=== PATIENT | female | born 1955 | race Caucasian/White ===

== ENCOUNTER 2024-06-24 13:47 | Inpatient (IN) | payer MEDICARE, MEDICAID, SELFPAY ==
[2024-06-24 15:00] VITALS: PULSE 92; RESP 18; O2SAT 97
--- NOTE | 2024-06-24 15:31 | PC.SS ---
Resident admitted for subacute care on vent with trach in place and GT for medication and nutrition. Resident is non verbal unable to make needs known, her sister Suzie is her decision maker. Resident is not a registered voter, she is not conserved, does have a financial POA. RP informed of advance Directive service offered in facility by [facility], resident is unable to participate as she appears to be confused. Resident is DNR, selective treatment. RP states she has a history of depression and anxiety. Resident will be monitored for changes in mood and behavior. This [facility] to make daily contact with resident and offer support as she adjust to new environment.
--- NOTE | 2024-06-24 16:00 | PC.IP ---
At 1555 spoke with Suzie Ennis, resident's RP. Refuses vaccines presently as resident has never 'liked shots' and she has 'never gotten them.' Will continue to evaluate resident's cognition and work with RP for education opportunities and possible admininstration of Pneumococcal vaccine.
--- NOTE | 2024-06-24 17:02 | XR_ITS ---
Examination: AP chest single view TECHNIQUE: AP portable sitting chest single view Examination time: June 24, 2024 at 1759 hours INDICATIONS: Post tracheostomy tube placement FINDINGS: Tracheostomy tube tip 4.9 cm above Imelda Reduced inspiratory effort. Mild vascular congestion IMPRESSION: Tracheostomy tube tip 4.9 cm above Imelda
[2024-06-24 18:08] VITALS: PULSE 89; RESP 30; O2SAT 99
[2024-06-24 19:13] LABS: Basophils # (Auto) 0.1 Thou/mm3 (0.0-0.2); Basophils % (Auto) 1 % (0-2.5); Eosinophils # (Auto) 0.2 Thou/mm3 (0.0-0.5); Eosinophils % (Auto) 1 % (0-10); Hematocrit 33.2 % (36.0-46.0); Hemoglobin 10.8 g/dL (12.0-16.0); Immature Granulocytes % (Auto) 1 % (0-0); Immature Granulocytes Auto 0.21 Thou/mm3 (0.00-0.00); Lymphocytes # (Auto) 2.3 Thou/mm3 (1.0-4.8); Lymphocytes % (Auto) 12 % (10-50); Mean Corpuscular HGB Conc 32.5 g/dl (31.0-37.0); Mean Corpuscular Hemoglobin 28.9 pg (25.0-35.0); Mean Corpuscular Volume 89 fL (80-100); Monocytes # (Auto) 1.8 Thou/mm3 (0.0-0.8); Monocytes % (Auto) 10 % (0-12); Neutrophils # (Auto) 14.8 Thou/mm3 (1.8-7.7); Neutrophils % (Auto) 76 % (37-80); Nucleated Red Blood Cell % 0 /100 WBC (0); Platelet Count 327 Thou/mm3 (140-440); RDW Standard Deviation 52.4 fL (36.4-46.3); Red Blood Count 3.74 Miln/mm3 (4.00-5.20); White Blood Count 19.4 Thou/mm3 (3.6-11.0)
[2024-06-24 19:14] LABS: Alanine Aminotransferase 11 U/L (10-49); Albumin, Serum 4.2 gm/dL (3.4-4.8); Albumin/Globulin Ratio 1.3 (1.2-2.2); Alkaline Phosphatase 62 U/L (46-116); Anion Gap 9 (7-16); Aspartate Amino Transferase 21 U/L (0-34); BUN/Creatinine Ratio 30 Ratio (12-20); Bilirubin,Total 0.3 mg/dL (0.3-1.2); Blood Urea Nitrogen 24 mg/dL (9-23); Calcium 9.3 mg/dL (8.3-10.6); Calcium (Corrected) 9.3 mg/dL (8.5-10.1); Carbon Dioxide 26.9 mMol/L (20.0-31.0); Chloride 95 mMol/L (98-107); Creatinine (Component) 0.8 mg/dL (0.6-1.3); Globulin 3.2 gm/dL (2.3-3.5); Glucose 129 mg/dL (74-106); Osmolality,Calculated 268 (275-295); Sodium 131 mMol/L (136-145); Total Protein 7.4 gm/dL (5.7-8.2); eGFR > 60 See Note
--- NOTE | 2024-06-24 21:24 | PC.NURSE ---
Resident on mechanical ventilator. Not in any form of distress. V/S 108/50, 90, 97.6. Awake and responsive. Denies any pain or discomfort. WBC noted to be 19.4 and sodium level 131. Called Dr flanagan covering for Dr Silverio with order received to repeat CBC tomorrow.
--- NOTE | 2024-06-24 21:53 | PC.NURSE ---
Resident noted with blood on the absorbent pad when staffs changed the resident after she urinates. As per other staffs, when resident admitted this afternoon , resident was noted with blood on her urine . Denies any bladder discomfort. Called Dr Wise and made aware with order received to do U/A with c & s so with the CBC tomorrow.
[2024-06-24 22:00] VITALS: BP 94/58; PULSE 82; RESP 35; TEMP 36.6
[2024-06-24] MEDS: levETIRAcetam 100 MG/ML SOLUTION 1000 MG GT (23:19)
[2024-06-25] VITALS (8 sets, daily range): BP systolic 97–146; BP diastolic 58–76; PULSE 81–98; RESP 31–44; TEMP 36.4–38.4; O2SAT 95–99; BMI 32.5
[2024-06-25 03:07] LABS: Base Excess 3 (-3-3); HCO3 29 mEq/L (20-26); Inspired Oxygen, FIO2 30 %; O2 Saturation 99 % (91-98); PCO2 49 mmHg (32.0-48.0); PO2 106 mmHg (83-108); pH, Arterial 7.38 (7.35-7.45)
[2024-06-25 03:08] LABS: Allen Test Performed/OK; Puncture Site Right Radial
[2024-06-25 06:04] LABS: Collection Type, Urine Catheter
[2024-06-25] MEDS: VALPROIC ACID 250 MG/5 ML 500 MG GT ×2 (06:14→14:30)
[2024-06-25 06:16] LABS: Bacteria,Urine 3+; Bilirubin,Urine Negative (Negative); Blood,Urine 3+ (Negative); Clarity,Urine Turbid (Clear/Hazy); Color,Urine Colorless (Lt Yel-Yel); Glucose, Urine Negative (Negative); Ketones,Urine Negative (Negative); Leukocyte Esterase,Urine Positive (Negative); Nitrite,Urine Negative (Negative); PH,Urine 6.5 (5.0-7.0); Protein,Urine 1+ (Neg - Trace); RBC,Urine 125 /hpf (0-3); Specific Gravity,Urine 1.008 (1.001-1.035); Squamous Epithelial Cell,Urine 1 /hpf (0-5); Urobilinogen,Urine Negative mg/dL (0.0-1.0); WBC,Urine 197 /hpf (0-5)
[2024-06-25 06:46] LABS: Culture Indicated,Urine Yes
[2024-06-25 07:32] LABS: Basophils # (Auto) 0.1 Thou/mm3 (0.0-0.2); Basophils % (Auto) 0 % (0-2.5); Eosinophils # (Auto) 0.2 Thou/mm3 (0.0-0.5); Eosinophils % (Auto) 1 % (0-10); Hematocrit 32.7 % (36.0-46.0); Hemoglobin 10.8 g/dL (12.0-16.0); Immature Granulocytes % (Auto) 1 % (0-0); Lymphocytes # (Auto) 2.5 Thou/mm3 (1.0-4.8); Lymphocytes % (Auto) 12 % (10-50); Mean Corpuscular Volume 88 fL (80-100); Monocytes # (Auto) 2.8 Thou/mm3 (0.0-0.8); Monocytes % (Auto) 14 % (0-12); Neutrophils # (Auto) 14.8 Thou/mm3 (1.8-7.7); Neutrophils % (Auto) 72 % (37-80); Nucleated Red Blood Cell % 0 /100 WBC (0); Platelet Count 287 Thou/mm3 (140-440); RDW Standard Deviation 52.2 fL (36.4-46.3); Red Blood Count 3.73 Miln/mm3 (4.00-5.20); White Blood Count 20.6 Thou/mm3 (3.6-11.0)
[2024-06-25] MEDS: ASPIRIN 81 MG TAB.CHEW GT (08:45)
[2024-06-25] MEDS: FLUCONAZOLE 200 MG TABLET 400 MG GT (08:48)
[2024-06-25] MEDS: polyethylene glycoL PKT 17 GM POWD.PACK GT (08:51)
[2024-06-25] MEDS: BUSPIRONE 10 MG TABLET 5 MG GT (09:10)
[2024-06-25] MEDS: levETIRAcetam 100 MG/ML SOLUTION 1000 MG GT (09:22)
--- NOTE | 2024-06-25 17:15 | PC.NURSE ---
pt was sent out to ED at 1500
--- NOTE | 2024-06-25 18:07 | PC.NURSE ---
Sent patient out to ED room 4 at 1500 due to recent lab findings of elevated WBC and hematuria. RN and MD is aware. 0900 and 1400 medications that were available in cart were given as ordered.
== END 2024-07-02 00:01 | disposition admitted as inpatient to this hospital (09) | DRG 951 ==
PROVIDERS: Family Medicine; Admitting Provider Specialist; PCP Specialist; Visit Provider Specialist
DX: Z99.11 Dependence on respirator [ventilator] status (principal); G40.802 Other epilepsy, not intractable, without status epilepticus; E11.9 Type 2 diabetes mellitus without complications
CPT/HCPCS: 36415; 36600; 80053; 81001; 82803; 85025; 87077; 87086; 87186; 87205; 94002; 94004

== ENCOUNTER 2024-06-25 15:43 | Inpatient (IN) | payer MEDICARE, MEDICAID, SELFPAY ==
[2024-06-25 15:47] VITALS: BMI 30.9
[2024-06-25 15:49] VITALS: BP 104/70; PULSE 122; RESP 24; TEMP 39.5; O2SAT 93
--- NOTE | 2024-06-25 15:54 | XR_ITS ---
Examination: CT brain head without contrast. 2-D sagittal coronal reconstructions Date and time of exam:June 25, 2024 1604 hours INDICATIONS: Loss of consciousness episode today CTDI: vol (mGy):60.1 DLP: (mGycm):1464 Technique: Multiple CT axial sections of the brain have been obtained, 5 mm slice thickness. Contrast has not been administered. 2-D sagittal, coronal reconstructions have been obtained Low dose protocols were performed. One or more of the following dose reduction techniques were used; automated exposure control, adjustment of the mA and/or KV according to patient size, use of iterative reconstruction technique. Findings: Significant atrophy Intra-axial or extra-axial hemorrhage density is not seen. No mass effect or midline shift Basal cisterns are not remarkable. Fourth ventricle is midline. Cranial vault intact. Impression: Negative for acute hemorrhage, mass effect or midline shift
--- NOTE | 2024-06-25 15:54 | EKG_ITS ---
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
--- NOTE | 2024-06-25 15:54 | XR_ITS ---
Examination: AP chest single view TECHNIQUE: Portable sitting AP chest single view Exam date and time: June 25, 2024, 1713 hours Comparison June 24, 2024 INDICATIONS: Chest pain today. FINDINGS: Early pneumonia left base Mild prominence left ventricle Reduced inspiratory effort Tracheostomy tube tip 3.6 cm above michael IMPRESSION: Early pneumonia left base
[2024-06-25] MEDS: SODIUM CHLORIDE 0.9% 1000 ML 1,000 ML IV (16:01)
--- NOTE | 2024-06-25 16:08 | EDNOTE_ITS ---
ED General RME/HPI General Chief complaint: Recheck/Abnormal Lab/Rx Stated complaint: ELEVATED LABS Time Seen by Provider: 06/25/24 15:54 Arrival date/time: 06/25/24 15:43 RME / HPI RME / HPI narrative: DR. BLAKE MAIN ED EVALUATION 69 y/o female transferred from [facility] presents to ED c/o blood in the urine, fever and elevated WBC count x Today. 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 Patient is non-verbal. No modifying factors reported. No other concerns or complaints expressed at this time. Related Data Allergies Allergy/AdvReac Type Severity Reaction Status Date / Time codeine Allergy Verified 06/24/24 19:33 Review of Systems Review of Systems ROS Unobtainable: unobtainable due to medical condition Past Medical History Social History SMOKING STATUS: Unknown if ever smoked SECOND HAND EXPOSURE: No ED Exam Narrative Physical exam: Physical Exam:? General:?? ? Patient is brought in from [facility] with a fever tachycardic and reported to have hematuria this morning as they began working her up. The vital signs were reviewed. She is febrile tachycardic The patient has minimal responsiveness opens eyes to verbal and sternal rub. . Patient had a spontaneous respirations as she has a tracheostomy with blow-by oxygen. That required no assistance at this time . O2 sats are adequate at on T-piece blow-by oxygen. Head & Scalp:?? ? Normocephalic, atraumatic. Face:?? ? Appears normal and is without lesions, deformity. No apparent trauma Ears:??? Left external pinna appears normal. Right external pinna appears normal. Eyes:?? ? The sclera is anicteric. The Left and Right Orbit/Lid/Conjunctiva appears normal without swelling, discoloration or injection. Nose: ? ? The nose is without deformity, discharge or tenderness; Throat: ? ? Best we can tell the throat appears normal.? She is uncooperative and unable to participate due to her neurological status. The mucous membranes are pink and moist without exudates, redness or mass seen.? The tongue appears normal. Neck: The neck is supple and no apparent mass or adenopathy. Chest: The chest wall is normal in size and symmetry and has no chest wall tenderness or crepitus. The patient displays adequate ventilator effort without retractions, accessory muscle use. Patient has adequate air movement bilaterally with no wheezes and no rales. ? Cardiovascular: Regular rate and rhythm; No murmurs, rubs, or gallops; Gastrointestinal: The abdomen appears normal.? No obvious hernias or mass. The abdomen is soft and benign, non-distended, with no pain, no guarding and no rebound tenderness.? Bowel sounds are present and normal sounding.? No CVA tenderness. Genitourinary: No apparent injury or trauma. Back/Spine: No apparent injury or trauma Extremities/Musculoskeletal/lymphatic:? ? ? The bilateral upper and lower extremities are warm. There is no evidence of arterial? insufficiency. There is no evidence of venous insufficiency/edema. The patient is obtunded but displays no obvious focal deficits and spontaneously moves bilateral upper and lower extremities with painful or verbal stimuli There is no apparent, injury or trauma. Skin:? The skin is warm, dry and intact.? No rashes. No petechia. No purpura. No abnormal bruising.? The color is appropriate with no cyanosis. Mental status/Psychiatric: Mental status is obtunded no further evaluation can be made Neurological:? The patient is obtunded. The pupils are equal and reactive to light No obvious focal deficits. Patient responds to painful and verbal stimuli. Course Quality Measures none Orders Category Date Time Status Admit to Inpatient Status Routine Admission 06/25/24 17:00 Active Patient Condition Routine Admission 06/25/24 17:00 Ordered Activity as Tolerated Routine Care 06/25/24 17:02 Ordered Aspiration precautions NOW Care 06/25/24 17:02 Active Bedside Blood Glucose NOW Care 06/25/24 15:54 Active Bedside COVID-19 Antigen Test NOW Care 06/25/24 16:56 Active Bedside Influenza A&B Antigen Test NOW Care 06/25/24 16:56 Completed EKG (ED ONLY) *Do not use* NOW Care 06/25/24 15:54 Completed Head of Bed Elevation NOW Care 06/25/24 17:00 Active In and Out Catheter X1 Care 06/25/24 15:59 Completed NPO NOW Care 06/25/24 17:02 Active Notify provider NEEDED Care 06/25/24 17:00 Active Seizure precautions NOW Care 06/25/24 17:02 Active Referral Registered Dietitian Stat Cons 06/25/24 17:15 Active Diet NPO (NOW) Diet 06/25/24 17:[address] head/brain wo con Stat Exams 06/25/24 15:54 Taken EKG (ED Only) Stat Exams 06/25/24 15:54 Ordered XR chest 1V portable Stat Exams 06/25/24 15:54 Ordered Alcohol, Blood Medical Stat Lab 06/25/24 15:55 Completed Ammonia Stat Lab 06/25/24 15:55 Completed B-Type Natriuretic Peptide Stat Lab 06/25/24 15:55 Completed Blood Culture (Lab) Stat Lab 06/25/24 15:55 Received CBC AM DRAW Lab 06/26/24 05:00 Ordered CBC AM DRAW Lab 06/27/24 05:00 Ordered CBC AM DRAW Lab 06/28/24 05:00 Ordered CBC Stat Lab 06/25/24 15:55 Completed Clostridium Difficile PCR Routine Lab 06/25/24 Ordered Comprehensive Metabolic Panel AM DRAW Lab 06/26/24 05:00 Ordered Comprehensive Metabolic Panel AM DRAW Lab 06/27/24 05:00 Ordered Comprehensive Metabolic Panel AM DRAW Lab 06/28/24 05:00 Ordered Comprehensive Metabolic Panel Stat Lab 06/25/24 15:55 Completed Drug Screen,Urine Stat Lab 06/25/24 16:06 Completed Lactate (Lactic Acid) Stat Lab 06/25/24 15:55 Results Lipid Panel AM DRAW Lab 06/26/24 05:00 Ordered Magnesium AM DRAW Lab 06/26/24 05:00 Ordered Magnesium AM DRAW Lab 06/27/24 05:00 Ordered Magnesium AM DRAW Lab 06/28/24 05:00 Ordered Path Review Blood Smear Stat Lab 06/25/24 15:55 Completed Phosphorous AM DRAW Lab 06/26/24 05:00 Ordered Phosphorous AM DRAW Lab 06/27/24 05:00 Ordered Phosphorous AM DRAW Lab 06/28/24 05:00 Ordered Procalcitonin Stat Lab 06/25/24 15:55 Completed Prothrombin Time with INR Stat Lab 06/25/24 15:55 Completed Thyroid Stimulating Hormone AM DRAW Lab 06/26/24 05:00 Ordered Troponin I Stat Lab 06/25/24 15:55 Completed Type and Screen Stat Lab 06/25/24 16:47 Results Urinalysis Stat Lab 06/25/24 16:06 Completed Urinalysis, C/S if Indicated Stat Lab 06/25/24 16:06 Completed Urine Culture Stat Lab 06/25/24 16:06 Received Venous Blood Gas Stat Lab 06/25/24 15:55 Completed Acetaminophen Tab [Tylenol Tab] Med 06/25/24 17:03 Active 650 mg PO Q6H PRN Aspirin [Ecotrin] Med 06/25/24 17:15 Ordered 81 mg PO QDAY BusPIRone HCL [Buspar] Med 06/25/24 17:12 Ordered 10 mg GT Q8HR PRN Docusate Sod [Colace] Med 06/25/24 17:03 Active 100 mg PO QDAY PRN Heparin Inj Med 06/25/24 21:00 Active 5,000 unit SC Q12HR Pantoprazole Inj [Protonix Inj] Med 06/25/24 17:15 Active 40 mg IVP QDAY Piper/Tazo 3.375 gm Premix [Zosyn] Med 06/25/24 21:00 Active 3.375 gm in 50 ml IV Q8HR Piper/Tazo 3.375 gm Premix [Zosyn] Med 06/25/24 15:54 Discontinued 3.375 gm in 50 ml IV X1 Sodium Chloride 0.9% 1000 ml [Ns] 1,000 ml Med 06/25/24 15:54 Discontinued IV 1,000 mls/hr Sodium Chloride 0.9% 1000 ml [Ns] 2,000 ml Med 06/25/24 15:54 Active IV 150 mls/hr Vancomycin Pharmacy to Dose Med 06/26/24 09:00 Ordered 1 each IV QDAY Vancomycin/Ns 1 gm Ivpb 200 ml Med 06/25/24 15:54 Active IV X1 Code Status Routine Oth 06/25/24 17:00 Ordered Vital Signs Vital signs: Vital Signs Temperature 103.1 F H 06/25/24 15:49 Pulse Rate 122 H 06/25/24 15:49 Respiratory Rate 24 H 06/25/24 15:49 Blood Pressure 104/70 06/25/24 15:49 Pulse Oximetry (%) 93 L 06/25/24 15:49 Oxygen Delivery Method T-Piece 06/25/24 15:49 Fraction of Inspired Oxygen 28 06/25/24 15:49 [facility] Patient data External records reviewed:: [facility] records Clinical information provided by:: other (specify) (RN) Social determinants that could affect healthcare access:: housing Patient has the following chronic illnesses:: hx of respiratory failure, s/p tracheostomy, hypertension, hyperlipidemia How is presenting disease/condition affected by chronic disease/condition?: e xacerbated by Evaluation data The following diagnostics were reviewed and interpreted by me:: lab results, radiology exam(s) and EKG tracing(s) Lab and/or radiology exams considered but not ordered:: None Interpretation Summary: Pending radiology report. See MDM above. Medications Medications considered but not ordered:: None Medication administrations:: Medication Administration History Acetaminophen (Acetaminophen 325 Mg Tablet) 650 mg PO Q6H PRN PRN Reason: pain 1-3 and fever >100.3 Stop: 07/25/24 17:02 Aspirin (Aspirin Ec 81 Mg Tabec) 81 mg PO QDAY JAYMIE Stop: 07/25/24 17:14 Buspirone HCl (Buspirone Hcl 5 Mg Tablet) 10 mg GT Q8HR PRN PRN Reason: AGITATION Stop: 07/25/24 17:11 Docusate Sodium (Docusate Sod 100 Mg Capsule) 100 mg PO QDAY PRN; Protocol PRN Reason: CONSTIPATION Stop: 07/25/24 17:02 Heparin Sodium (Porcine) (Heparin Sod Inj 5000 Unit/Ml Vial) 5,000 unit SC Q12HR JAYMIE Stop: 07/09/24 20:59 Sodium Chloride (Ns) 2,000 mls @ 150 mls/hr IV .[id number] ONE Stop: 06/26/24 05:13 Last Admin: 06/25/24 16:54 Dose: 150 mls/hr Documented By: RONNI Vancomycin/Sodium Chloride (Vancomycin/Ns 1 Gm Ivpb) 200 mls @ 120 mls/hr IV X1 ONE Stop: 06/25/24 17:33 Last Admin: 06/25/24 17:03 Dose: 120 mls/hr Documented By: RONNI Piperacillin/Tazobactam/Dextrose (Zosyn) 3.375 gm in 50 mls @ 12.5 mls/hr IV Q8HR JAYMIE Stop: 07/02/24 20:59 Pantoprazole Sodium (Pantoprazole Inj 40 Mg Vial) 40 mg IVP QDAY JAYMIE Stop: 07/25/24 17:14 Pharmacy Consult (Vancomycin Pharmacy To Dose 1 Each Each) 1 each IV QDAY JAYMIE Stop: 07/26/24 08:59 Discontinued Medications Piperacillin/Tazobactam/Dextrose (Zosyn) 3.375 gm in 50 mls @ 100 mls/hr IV X1 ONE Stop: 06/25/24 16:23 Last Infusion: 06/25/24 17:03 Dose: Infused Documented By: Admin: 06/25/24 16:36 Dose: 100 mls/hr Documented By: DB Sodium Chloride (Ns) 1,000 mls @ 1,000 mls/hr IV .Q1H ONE Stop: 06/25/24 16:53 Last Infusion: 06/25/24 16:54 Dose: Infused Documented By: Admin: 06/25/24 16:01 Dose: 1,000 mls/hr Documented By: DB See above if any. Consultations Consultation(s) initiated? (list below): Yes Consultation #1 (Physician, Specialty, Details): Dr. Canales made aware of the patient?s HPI, PMHx, lab and/or radiology results. Treatment plan was discussed. Will admit for further evaluation and management. Time: 15:57 Diagnosis Differential Diagnosis ED Complaint MDM: UTI vs Pyleonephritis vs Sepsis vs Viral Illness Most likely diagnosis given after review of the tests above:: Fever, UTI, tracheostomy dependence, brain injury. Admission Indicated Admission indicated?: indicated Explain why admission is indicated or not indicated:: Furtehr evaluation and treatment. Admission Request Was there a request for admission?: Yes Admission Attestation Admission request attestation: Discussed case with [] from Hospitalist service regarding admission. Discussed patients ED course, exam findings, labs, and radiology results. The Hospitalist [agrees,declines] to accept the patient for admission. Disposition Plan Disposition Plan: Admit Medical Decision Making MDM Narrative MDM Narrative: I, Brandy Jackson, am scribing for and in the presence of Dr. Rishi Blake. Patient was brought over from the subacute who is a new admit as of yesterday who was found to have a fever this morning of a workup was initiated which reveals an elevated white count pyuria and hematuria. Patient obviously needs antibiotics will need to be admitted because of debilitated state. It is unclear what the initial cause of this patient's vegetative or and there are no medical records that accompany the patient. Hospitalist was called and they will be admitting. We repeated a bunch of labs that are pending at the time of 1646. Differential Diagnosis Differential Diagnosis: UTI vs Pyleonephritis vs Sepsis vs Viral Illness Lab Data 06/25/24 15:55 06/25/24 15:55 Labs: Lab Results 06/25/24 06/25/24 06/25/24 Range/Units 15:55 16:06 16:47 WBC 23.3 H (3.6-11.0) Thou/mm3 RBC 3.65 L (4.00-5.20) Miln/mm3 Hgb 10.7 L (12.0-16.0) g/dL Hct 32.0 L (36.0-46.0) % MCV 88 (80-100) fL MCH 29.3 (25.0-35.0) pg MCHC 33.4 (31.0-37.0) g/dl RDW Std Deviation 52.1 H (36.4-46.3) fL Plt Count 275 (140-440) Thou/mm3 Neut % (Auto) 76 (37-80) % Lymph % (Auto) 9 L (10-50) % [place] % (Auto) 14 H (0-12) % Eos % (Auto) 0 (0-10) % Baso % (Auto) 0 (0-2.5) % Neut # (Auto) 17.7 H (1.8-7.7) Thou/mm3 Lymph # (Auto) 2.0 (1.0-4.8) Thou/mm3 [place] # (Auto) 3.2 H (0.0-0.8) Thou/mm3 Eos # (Auto) 0.1 (0.0-0.5) Thou/mm3 Baso # (Auto) 0.1 (0.0-0.2) Thou/mm3 Immature Gran # (Auto) 0.20 H (0.00-0.00) Thou/mm3 Absolute Nucleated RBC 0.00 (0.00-0.00) Thou/mm3 Immature Gran % 1 H (0-0) % Nucleated RBC % 0 (0) /100 WBC Smear Path Review Sent to Pathologist PT 11.9 (9.0-12.2) Seconds INR 1.1 (0.9-1.3) VBG pH 7.34 (7.33-7.66) VBG pCO2 57 H (36-56) mmHg VBG pO2 46 (15-58) mmHg VBG O2 Sat (Azra) 80 L (96-97) % VBG Base Excess 4 H (-3-3) Sodium 129 L (136-145) mMol/L Potassium 5.8 H D (3.4-5.1) mMol/L Chloride 94 L (98-107) mMol/L Carbon Dioxide 28.2 (20.0-31.0) mMol/L Anion Gap 7 (7-16) BUN 20 (9-23) mg/dL Creatinine 0.8 (0.6-1.3) mg/dL Estim Creat Clear Calc 67.6 (>60) mL/min eGFR > 60 (60 - ) See Note BUN/Creatinine Ratio 25 H (12-20) Ratio Glucose 145 H (74-106) mg/dL Calculated Osmolality 264 L (275-295) Lactic Acid 2.7 H (0.4-2.0) mMol/L Calcium 9.1 (8.3-10.6) mg/dL Corrected Calcium 9.1 (8.5-10.1) mg/dL Total Bilirubin 0.3 (0.3-1.2) mg/dL AST 20 (0-34) U/L ALT 10 (10-49) U/L Alkaline Phosphatase 70 (46-116) U/L Ammonia < 10 L (11-32) uMol/L Troponin I < 0.002 (0.0-0.045) ng/mL B-Natriuretic Peptide 24 (0-100) pg/mL Total Protein 7.5 (5.7-8.2) gm/dL Albumin 4.2 (3.4-4.8) gm/dL Globulin 3.3 (2.3-3.5) gm/dL Albumin/Globulin Ratio 1.3 (1.2-2.2) Procalcitonin 0.05 (0.0-0.49) ng/ml Ur Collection Type Clean Catch Urine Color Maria (Lt Yel-Yel) Urine Clarity Hazy (Clear/Hazy) Urine pH 6.5 (5.0-7.0) Ur Specific Crowder 1.016 (1.001-1.035) Urine Protein 2+ A (Neg - Trace) Urine Glucose (UA) Negative (Negative) Urine Ketones Negative (Negative) Urine Blood 3+ A (Negative) Urine Nitrite Positive (Negative) Urine Bilirubin Negative (Negative) Urine Urobilinogen (Auto) Negative (0.0-1.0) mg/dL Ur Leukocyte Esterase Positive (Negative) Urine RBC 1728 H (0-3) /hpf Urine WBC 258 H (0-5) /hpf Ur Squamous Epith Cells 2 (0-5) /hpf Urine Bacteria 2+ A (None) Ur Culture Indicated? Yes Urine Opiates Screen Negative (Negative) Urine Fentanyl Screen Negative (Negative) Ur Barbiturates Screen Negative (Negative) U Amphetamin/Meth Scrn Negative (Negative) U Benzodiazepines Scrn Negative (Negative) U Cocaine Metab Screen Negative (Negative) U Marijuana (THC) Screen Negative (Negative) Ethyl Alcohol < 3.0 (0-10.0) mg/dL Blood Bank Wristband ID Yes Discharge Plan Plan Patient Disposition: Admit Acute Care w/in Hospital Disposition Comment: Hospitalist to admit Problem List Clinical Impression: Fever, Urinary tract infection, Tracheostomy dependence, Brain injury, Elevated lactic acid level, Acute hyperkalemia Impression comment: We have no medical records to explain why this patient is debilitated trach dependent but sepsis is a possibility Patient/Caregiver Discharge Instructions Print Language: Azeri Stand Alone Forms: Johana Award Info., Patient Portal Info Letter
[2024-06-25 16:20] LABS: Collection Type, Urine Clean Catch
[2024-06-25 16:22] LABS: Base Excess, Venous 4 (-3-3); Lactate (Lactic Acid) 2.7 mMol/L (0.4-2.0); O2 Saturation, Venous 80 % (96-97); PCO2, Venous 57 mmHg (36-56); PO2, Venous 46 mmHg (15-58); pH, Venous 7.34 (7.33-7.66)
[2024-06-25 16:24] LABS: Basophils # (Auto) 0.1 Thou/mm3 (0.0-0.2); Basophils % (Auto) 0 % (0-2.5); Eosinophils # (Auto) 0.1 Thou/mm3 (0.0-0.5); Eosinophils % (Auto) 0 % (0-10); Hemoglobin 10.7 g/dL (12.0-16.0); Immature Granulocytes % (Auto) 1 % (0-0); Lymphocytes % (Auto) 9 % (10-50); Mean Corpuscular HGB Conc 33.4 g/dl (31.0-37.0); Mean Corpuscular Hemoglobin 29.3 pg (25.0-35.0); Mean Corpuscular Volume 88 fL (80-100); Monocytes # (Auto) 3.2 Thou/mm3 (0.0-0.8); Monocytes % (Auto) 14 % (0-12); Neutrophils # (Auto) 17.7 Thou/mm3 (1.8-7.7); Neutrophils % (Auto) 76 % (37-80); Nucleated Red Blood Cell % 0 /100 WBC (0); Platelet Count 275 Thou/mm3 (140-440); RDW Standard Deviation 52.1 fL (36.4-46.3); Red Blood Count 3.65 Miln/mm3 (4.00-5.20); White Blood Count 23.3 Thou/mm3 (3.6-11.0)
[2024-06-25] MEDS: PIPER/TAZO 3.375 GM PREMIX 3.375 GM/50 ML BAG IV (16:36)
[2024-06-25 16:41] LABS: INR 1.1 (0.9-1.3); Prothrombin Time 11.9 Seconds (9.0-12.2)
[2024-06-25 16:45] LABS: Bacteria,Urine 2+; Bilirubin,Urine Negative (Negative); Blood,Urine 3+ (Negative); Glucose, Urine Negative (Negative); Ketones,Urine Negative (Negative); Leukocyte Esterase,Urine Positive (Negative); Nitrite,Urine Positive (Negative); PH,Urine 6.5 (5.0-7.0); Protein,Urine 2+ (Neg - Trace); RBC,Urine 1728 /hpf (0-3); Specific Gravity,Urine 1.016 (1.001-1.035); Squamous Epithelial Cell,Urine 2 /hpf (0-5); Urobilinogen,Urine Negative mg/dL (0.0-1.0); WBC,Urine 258 /hpf (0-5)
[2024-06-25 16:48] LABS: Clarity,Urine Hazy (Clear/Hazy); Color,Urine Amber (Lt Yel-Yel); Culture Indicated,Urine Yes
[2024-06-25 16:51] LABS: Ammonia < 10 uMol/L (11-32)
[2024-06-25] MEDS: SODIUM CHLORIDE 0.9% 1000 ML 2,000 ML 150 ML IV (16:54)
[2024-06-25 16:55] LABS: Alanine Aminotransferase 10 U/L (10-49); Albumin, Serum 4.2 gm/dL (3.4-4.8); Albumin/Globulin Ratio 1.3 (1.2-2.2); Alcohol, Blood Medical < 3.0 mg/dL (0-10.0); Alkaline Phosphatase 70 U/L (46-116); Anion Gap 7 (7-16); Aspartate Amino Transferase 20 U/L (0-34); BUN/Creatinine Ratio 25 Ratio (12-20); Bilirubin,Total 0.3 mg/dL (0.3-1.2); Blood Urea Nitrogen 20 mg/dL (9-23); Calcium 9.1 mg/dL (8.3-10.6); Calcium (Corrected) 9.1 mg/dL (8.5-10.1); Carbon Dioxide 28.2 mMol/L (20.0-31.0); Chloride 94 mMol/L (98-107); Creatinine (Component) 0.8 mg/dL (0.6-1.3); Estimated Creatinine Clearance 67.6 mL/min (>60); Globulin 3.3 gm/dL (2.3-3.5); Glucose 145 mg/dL (74-106); Osmolality,Calculated 264 (275-295); Potassium 5.8 mMol/L (3.4-5.1); Procalcitonin 0.05 ng/ml (0.0-0.49); Sodium 129 mMol/L (136-145); Total Protein 7.5 gm/dL (5.7-8.2); Troponin I < 0.002 ng/mL (0.0-0.045); eGFR > 60 See Note
[2024-06-25 16:57] VITALS: BP 124/62; PULSE 97; RESP 22; TEMP 38.9; O2SAT 95
[2024-06-25 16:57] LABS: B-Type Natriuretic Peptide 24 pg/mL (0-100)
[2024-06-25 17:00] VITALS: BP 118/52; PULSE 95; RESP 22; TEMP 38.8; O2SAT 95
[2024-06-25 17:03] VITALS: BP 118/52; PULSE 92; RESP 30; O2SAT 95
[2024-06-25] MEDS: VANCOMYCIN/NS 1 GM IVPB 200 ML IV (17:03)
[2024-06-25 17:08] LABS: Path Review Blood Smear Sent to Pathologist
[2024-06-25 17:08] LABS: Amphetamine/Methamp Scrn,U Negative (Negative); Barbiturate Screen,Urine Negative (Negative); Benzodiazepines Screen,Urine Negative (Negative); Benzoylecgonine Screen, Ur Negative (Negative); Fentanyl Screen,Urine Negative (Negative); Opiate Screen,Urine Negative (Negative); THC Screen,Urine Negative (Negative)
--- NOTE | 2024-06-25 17:25 | XR_ITS ---
Examination: CT abdomen with intravenous contrast CT pelvis with intravenous contrast 2-D coronal reconstructions 2-D sagittal reconstructions Date and time of exam:June 26, 2024 1315 hours INDICATIONS: Diagnosis toxic megacolon. CTDI: vol (mGy) 23.2 DLP: (mGycm) 1421 Technique: Multiple axial sections of the abdomen and pelvis have been obtained. 64 slice high-resolution scanner used. 3 mm axial sections have been obtained, post intravenous injection 60 cc [id number] 2-D sagittal coronal reconstructions Low dose protocols, automated exposure control, adjustment MA KV according to patient size FINDINGS: There is atelectasis versus mild pneumonia left base No visualized liver or splenic lesion Multiple gallstones contracted gallbladder No pancreatic or adrenal mass Mild to moderate bilateral renal parenchymal scar formation Mild right hydronephrosis minimal wall thickening right ureter No ureteral calculi Right perinephric stranding Minimal left hydroureter No pericecal inflammatory change No toxic megacolon or bowel obstruction Colonic diverticulosis Atrophic uterus, abnormal dilated endometrial 27 mm Urinary bladder diffuse wall thickening up to 18 mm Severe osteopenia with advanced diffuse lumbar degenerative disc disease Impression: Findings most consistent with bilateral urinary tract infection and cystitis, likely vesicoureteral reflux Cholelithiasis Negative for toxic megacolon Negative for obstruction
[2024-06-25 18:09] VITALS: PULSE 63; RESP 43; O2SAT 96
[2024-06-25] MEDS: ASPIRIN EC 81 MG TABEC PO (18:48)
[2024-06-25] MEDS: PANTOPRAZOLE INJ 40 MG VIAL IVP (18:48)
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
[2024-06-25 19:17] LABS: Reflex Lactate? Y
[2024-06-25 19:21] LABS: Lactic Acid, 3 HR 2.4 mMol/L (0.4-2.0)
[2024-06-25 20:00] VITALS: BP 91/56; PULSE 68; PULSE 97; RESP 19; TEMP 36.5; O2SAT 96
[2024-06-25] MEDS: ATORVASTATIN CALCIUM 20 MG TABLET GT (21:26)
[2024-06-25] MEDS: levETIRAcetam 250 MG TABLET 1000 MG PO (21:26)
[2024-06-25] MEDS: VALPROIC ACID SYRUP 250 MG/5 ML UDC 500 MG GT (21:26)
[2024-06-25] MEDS: HEPARIN SOD INJ 5000 UNIT/ML VIAL SC (21:27)
[2024-06-25] MEDS: INSULIN HUM REGULAR 1 UNIT/0.01 ML (PER UNIT) 5 UNIT IV (21:28)
[2024-06-25] MEDS: DEXTROSE 50%-WATER INJ 50 ML SYRINGE IV (21:36)
[2024-06-25] MEDS: SOD POLYSTYRENE SULFON SUSP 15 GM/60 ML BTL PO (21:36)
[2024-06-25 23:19] LABS: Potassium 5.3 mMol/L (3.4-5.1)
[2024-06-25] MEDS: cefTRIAXone/D5w 1gm IV premix 1 GM/50 ML BAG IV (23:24)
[2024-06-26] VITALS (15 sets, daily range): BP systolic 101–144; BP diastolic 38–87; PULSE 71–115; RESP 18–43; TEMP 36.4–38.7; O2SAT 94–98; BMI 32.8; BMI 32.3
--- NOTE | 2024-06-26 00:10 | PC.NURSE ---
Dr. Napier notified of elevated potassium of 6.0. New orders received. Upon recheck of potassium after administering meds, new potassium level is 5.3, which Dr Napier was also notified.
[2024-06-26 00:30] LABS: Lactate (Lactic Acid) 2.8 mMol/L (0.4-2.0)
--- NOTE | 2024-06-26 01:04 | PC.NURSE ---
Dr. Napier notified of recent lactic acid of 2.8. New orders received.
[2024-06-26] MEDS: RINGERS LACTATED 1000 ML 1,000 ML 999 ML IV (01:45)
[2024-06-26 03:38] LABS: Reflex Lactate? Y
[2024-06-26 05:14] LABS: Lactate (Lactic Acid) 1.6 mMol/L (0.4-2.0)
[2024-06-26 05:25] LABS: Basophils # (Auto) 0.1 Thou/mm3 (0.0-0.2); Basophils % (Auto) 0 % (0-2.5); Eosinophils % (Auto) 0 % (0-10); Hematocrit 27.6 % (36.0-46.0); Hemoglobin 9.2 g/dL (12.0-16.0); Immature Granulocytes % (Auto) 1 % (0-0); Immature Granulocytes Auto 0.29 Thou/mm3 (0.00-0.00); Lymphocytes # (Auto) 1.7 Thou/mm3 (1.0-4.8); Lymphocytes % (Auto) 5 % (10-50); Mean Corpuscular HGB Conc 33.3 g/dl (31.0-37.0); Mean Corpuscular Hemoglobin 29.7 pg (25.0-35.0); Mean Corpuscular Volume 89 fL (80-100); Monocytes # (Auto) 5.4 Thou/mm3 (0.0-0.8); Monocytes % (Auto) 16 % (0-12); Neutrophils # (Auto) 25.4 Thou/mm3 (1.8-7.7); Neutrophils % (Auto) 77 % (37-80); Nucleated Red Blood Cell % 0 /100 WBC (0); Platelet Count 209 Thou/mm3 (140-440); RDW Standard Deviation 53.2 fL (36.4-46.3); White Blood Count 32.9 Thou/mm3 (3.6-11.0)
[2024-06-26] MEDS: VALPROIC ACID SYRUP 250 MG/5 ML UDC 500 MG GT ×3 (05:37→21:19)
[2024-06-26 05:48] LABS: Glucose Estimated Average 111 mg/dL (80-131); Hemoglobin A1C 5.5 % Hgb (4.8-6.0)
--- NOTE | 2024-06-26 06:00 | PC.NURSE ---
0600 Pt is a transfer, arrived on the floor from Med surg bed [id number].
[2024-06-26 07:26] LABS: Alanine Aminotransferase 8 U/L (10-49); Albumin, Serum 3.5 gm/dL (3.4-4.8); Albumin/Globulin Ratio 1.3 (1.2-2.2); Alkaline Phosphatase 50 U/L (46-116); Anion Gap 6 (7-16); Aspartate Amino Transferase 12 U/L (0-34); BUN/Creatinine Ratio 19 Ratio (12-20); Bilirubin,Total 0.3 mg/dL (0.3-1.2); Blood Urea Nitrogen 13 mg/dL (9-23); Calcium 8.1 mg/dL (8.3-10.6); Calcium (Corrected) 8.5 mg/dL (8.5-10.1); Carbon Dioxide 27.1 mMol/L (20.0-31.0); Chloride 100 mMol/L (98-107); Cholesterol 125 mg/dL (132-200); Creatinine (Component) 0.7 mg/dL (0.6-1.3); Estimated Creatinine Clearance 79.7 mL/min (>60); Globulin 2.6 gm/dL (2.3-3.5); Glucose 123 mg/dL (74-106); HDL Cholesterol 31 mg/dL (40-60); LDL Cholesterol,Calculated 58 mg/dL (0-130); Osmolality,Calculated 267 (275-295); Phosphorous 2.9 mg/dL (2.4-5.1); Potassium 5.1 mMol/L (3.4-5.1); Sodium 133 mMol/L (136-145); Thyroid Stimulating Hormone 2.62 uIU/mL (0.55-4.78); Total Protein 6.1 gm/dL (5.7-8.2); Triglycerides 179 mg/dL (30-150); eGFR > 60 See Note
[2024-06-26] MEDS: ACETAMINOPHEN SOL 325 MG/10 ML UDC 650 MG GT (07:46)
[2024-06-26] MEDS: levETIRAcetam 250 MG TABLET 1000 MG PO ×2 (08:27→21:18)
[2024-06-26] MEDS: PANTOPRAZOLE INJ 40 MG VIAL IVP (08:28)
[2024-06-26] MEDS: HEPARIN SOD INJ 5000 UNIT/ML VIAL SC ×2 (08:28→21:19)
[2024-06-26] MEDS: FLUCONAZOLE 100 MG TABLET 400 MG PO (08:28)
[2024-06-26] MEDS: ASPIRIN EC 81 MG TABEC PO (08:28)
[2024-06-26] MEDS: CEFEPIME INJ 2 GM in SODIUM CHLORIDE 0.9% (Popper) 50 ML IV ×3 (09:42→21:19)
--- NOTE | 2024-06-26 11:27 | PC.DIETICIAN ---
Dietitian consult: Resume TF order when medically appropriate: Glucerna 1.2 @ 58ml/hr x 22hrs via Gtube by pump. If no IVF, give AF 40ml/hr water (or per MD) to provide: 1276ml total vol, 1531kcal, 76g protein, 1027ml FW RD to add Unflavored Arash 1 pkt BID daily after brk, after lunch. Mix with 6-8 oz water for targeted nutrition and wound healing, RN to administer as medication Thank you
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
--- NOTE | 2024-06-26 16:36 | PC.SS ---
Rounding Note: Pending CT. Stool studies pending. Patient receiving IV antibiotics.
[2024-06-26] MEDS: ATORVASTATIN CALCIUM 20 MG TABLET 40 MG GT (21:18)
[2024-06-26] MEDS: INSULIN LISPRO (AdmeLOG) 1 UNIT/0.01 ML UNIT SC (23:39)
[2024-06-27] VITALS (14 sets, daily range): BP systolic 92–148; BP diastolic 54–103; PULSE 70–113; RESP 18–36; TEMP 36.1–38.1; O2SAT 95–99; BMI 33.0
[2024-06-27] MEDS: ACETAMINOPHEN SOL 325 MG/10 ML UDC 650 MG GT (00:51)
[2024-06-27] MEDS: VALPROIC ACID SYRUP 250 MG/5 ML UDC 500 MG GT ×3 (05:10→21:35)
[2024-06-27] MEDS: CEFEPIME INJ 2 GM in SODIUM CHLORIDE 0.9% (Popper) 50 ML IV ×3 (05:10→21:34)
[2024-06-27 05:25] LABS: Basophils # (Auto) 0.1 Thou/mm3 (0.0-0.2); Basophils % (Auto) 1 % (0-2.5); Eosinophils % (Auto) 0 % (0-10); Hematocrit 24.7 % (36.0-46.0); Immature Granulocytes % (Auto) 1 % (0-0); Immature Granulocytes Auto 0.24 Thou/mm3 (0.00-0.00); Lymphocytes # (Auto) 1.6 Thou/mm3 (1.0-4.8); Lymphocytes % (Auto) 8 % (10-50); Mean Corpuscular HGB Conc 33.2 g/dl (31.0-37.0); Mean Corpuscular Hemoglobin 29.4 pg (25.0-35.0); Mean Corpuscular Volume 89 fL (80-100); Monocytes # (Auto) 3.5 Thou/mm3 (0.0-0.8); Monocytes % (Auto) 17 % (0-12); Neutrophils # (Auto) 15.4 Thou/mm3 (1.8-7.7); Neutrophils % (Auto) 74 % (37-80); Nucleated Red Blood Cell % 0 /100 WBC (0); Platelet Count 158 Thou/mm3 (140-440); RDW Standard Deviation 54.2 fL (36.4-46.3); Red Blood Count 2.79 Miln/mm3 (4.00-5.20); White Blood Count 20.9 Thou/mm3 (3.6-11.0)
[2024-06-27 05:28] LABS: Hemoglobin 8.2 g/dL (12.0-16.0)
[2024-06-27 06:25] LABS: Alanine Aminotransferase 8 U/L (10-49); Albumin/Globulin Ratio 1.3 (1.2-2.2); Alkaline Phosphatase 54 U/L (46-116); Anion Gap 7 (7-16); Aspartate Amino Transferase 20 U/L (0-34); BUN/Creatinine Ratio 27 Ratio (12-20); Bilirubin,Total < 0.2 mg/dL (0.3-1.2); Blood Urea Nitrogen 19 mg/dL (9-23); Calcium 7.6 mg/dL (8.3-10.6); Calcium (Corrected) 8.4 mg/dL (8.5-10.1); Carbon Dioxide 26.1 mMol/L (20.0-31.0); Chloride 101 mMol/L (98-107); Creatinine (Component) 0.7 mg/dL (0.6-1.3); Estimated Creatinine Clearance 79.4 mL/min (>60); Globulin 2.4 gm/dL (2.3-3.5); Glucose 151 mg/dL (74-106); Osmolality,Calculated 273 (275-295); Phosphorous 2.7 mg/dL (2.4-5.1); Potassium 4.5 mMol/L (3.4-5.1); Sodium 134 mMol/L (136-145); Total Protein 5.4 gm/dL (5.7-8.2); eGFR > 60 See Note
[2024-06-27 07:30] LABS: Clostridium Difficile PCR Positive (Negative)
[2024-06-27] MEDS: PANTOPRAZOLE INJ 40 MG VIAL IVP (08:16)
[2024-06-27] MEDS: HEPARIN SOD INJ 5000 UNIT/ML VIAL SC ×2 (08:17→20:42)
[2024-06-27] MEDS: levETIRAcetam 250 MG TABLET 1000 MG PO ×2 (08:17→20:42)
[2024-06-27] MEDS: FLUCONAZOLE 100 MG TABLET 400 MG PO (08:18)
[2024-06-27] MEDS: ASPIRIN EC 81 MG TABEC PO (08:18)
[2024-06-27] MEDS: VANCOMYCIN 25 MG/ML 125 MG GT ×4 (09:53→23:38)
--- NOTE | 2024-06-27 13:39 | ESPR_ITS ---
<Statement entered by Laxmi Yoo MD - 06/27/24 15:20> Patient seen and examined. Overnight patient spiked fever, WBC slightly down trended, however patient had more than 3+ bowel movement overnight. CT abdomen revealed cystitis, negative for colitis, C. difficile came back positive, switched IV vancomycin to p.o. vancomycin, will continue with cefepime, pending urine culture, pending final blood culture. ID was consulted, follow-up with recommendations I personally saw and examined the patient and discussed the assessment and plan with the entire medicine team, including my attending , Laxmi Yoo M.D. PGY-2 Disclaimer: Despite multiple revisions, due to the dictation software being used, the document bellow may not be free of grammatical errors including phonetic/typographic errors. However, this does not deter from our commitment to providing health care in the patient's best interest in mind. Documentation for date of: 06/27/24 Subjective Subjective Interval history: Overnight, patient continued to spike a fever of 100.6. Patient had 4 watery stools overnight. Per nursing staff it smells pungent. Patient is nonverbal, no grimacing noticed on physical exam when abdomen was palpated. CT imaging of abdomen pelvis showed cholelithiasis, negative for toxic megacolon, and negative for obstruction. Findings of urinary tract infection such as cystitis. Atelectasis versus pneumonia also noted in the left base. Urine culture positive for Klebsiella pneumoniae. 1 out of 2 bottles positive for gram- negative rods--> likely secondary to contamination. Vancomycin added orally given positive C. difficile PCR test. Exam Vital Signs Temp Pulse Resp BP Pulse Ox O2 Del Method O2 Flow Rate 97.0 F 79 21 H 109/62 99 Mechanical Ventilation 7 06/27/24 08:00 06/27/24 12:25 06/27/24 08:00 06/27/24 08:00 06/27/24 12:25 06/27/24 08:00 06/26/24 16:00 FiO2 30 06/27/24 12:25 Narrative Exam General Appearance: Alert & Oriented X0, well-nourished female who is lying in bed in no acute distress HEENT: Skull symmetrical and atraumatic. Conjunctivae pin and moist. Pupils equal, round, reactive to light and accommodation (PERRL). External ear without lesion or discharge. Straight, nares patient, mucosa pink, no discharge. No thyroid nodule appreciated. No cervical lymphadenopathy. Cardio: Normal Rate and Rhythm with S1 and S2 heart sounds. No murmurs or extra heart sounds auscultated, difficult to appreciate given upper airway sounds. No bruits on carotid auscultation. No peripheral edema or cyanosis. Lungs: Symmetric with good expansion. Chest and back non-tender. Breath sounds vesicular with upper airway. Abdomen: Non-tender, Non-distended, Normal Reactive Bowel Sounds. No grimacing noted on physical exam. Neuro: Yes Alert, No cooperative, No oriented to person, No place, and No time. Speech clear. CN grossly intact. Upper motor strength 5/5 and Lower motor strength 5/5. Sensation intact. Objective Labs 06/27/24 04:55 06/27/24 04:55 Labs: Laboratory Results - last 24 hr 06/27/24 06/27/24 00:01 04:55 WBC 20.9 H D RBC 2.79 L Hgb 8.2 L Hct 24.7 L MCV 89 MCH 29.4 MCHC 33.2 RDW Std Deviation 54.2 H Plt Count 158 D Neut % (Auto) 74 Lymph % (Auto) 8 L [place] % (Auto) 17 H Eos % (Auto) 0 Baso % (Auto) 1 Neut # (Auto) 15.4 H Lymph # (Auto) 1.6 [place] # (Auto) 3.5 H Eos # (Auto) 0.0 Baso # (Auto) 0.1 Immature Gran # (Auto) 0.24 H Absolute Nucleated RBC 0.00 Immature Gran % 1 H Nucleated RBC % 0 Sodium 134 L Potassium 4.5 D Chloride 101 Carbon Dioxide 26.1 Anion Gap 7 BUN 19 Creatinine 0.7 Estim Creat Clear Calc 79.4 eGFR > 60 BUN/Creatinine Ratio 27 H Glucose 151 H Calculated Osmolality 273 L Calcium 7.6 L Corrected Calcium 8.4 L Phosphorus 2.7 Magnesium 2.0 Total Bilirubin < 0.2 L AST 20 ALT 8 L Alkaline Phosphatase 54 Total Protein 5.4 L Albumin 3.0 L D Globulin 2.4 Albumin/Globulin Ratio 1.3 Stl C. diff Tox B Gene Positive A ABG Interpretation ABG results: 06/25/24 15:55 VBG pH 7.34 VBG pCO2 57 H VBG pO2 46 VBG Base Excess 4 H Quality Measures Quality Measures none Advance care planning discussed with:: other Assessment & Plan Assessment Current Active Medications: Generic Name Dose Route Start Last Admin Trade Name Freq PRN Reason Stop Dose Admin Acetaminophen 650 mg 06/25/24 19:11 06/27/24 00:51 Acetaminophen Ericka 325 Mg/10 Ml Udc GT 07/25/24 17:02 650 mg Q6H PRN Administration pain 1-3 and fever >100.3 Aspirin 81 mg 06/28/24 09:00 Aspirin 81 Mg Chew GT 07/25/24 17:14 QDAY DYLAN Atorvastatin Calcium 40 mg 06/26/24 21:00 06/26/24 21:18 Atorvastatin Calcium 20 Mg Tablet GT 07/26/24 20:59 40 mg HS DYLAN Administration Buspirone HCl 10 mg 06/25/24 17:12 Buspirone Hcl 5 Mg Tablet GT 07/25/24 17:11 Q8HR PRN AGITATION Dextrose 25 ml 06/25/24 17:34 Dextrose 50%-Water Inj 50 Ml Syringe IV 07/25/24 17:33 Q15MIN PRN BG 50-70 responsive npo pt Dextrose 50 ml 06/25/24 17:34 Dextrose 50%-Water Inj 50 Ml Syringe IV 07/25/24 17:33 Q15MIN PRN BG <50 OR BG <70 & pt unresponsive Docusate Sodium 100 mg 06/25/24 19:16 Docusate Sod Liqd 100 Mg/10 Ml Udc GT 07/25/24 17:02 QDAY PRN CONSTIPATION Protocol Fluconazole 400 mg 06/26/24 09:00 06/27/24 08:18 Fluconazole 100 Mg Tablet PO 07/03/24 08:59 400 mg QDAY DYLAN Administration Glucagon 1 mg 06/25/24 17:34 Glucagon Inj 1 Mg Vial IM Q15MIN PRN BG <70, and no IV access Heparin Sodium (Porcine) 5,000 unit 06/25/24 21:00 06/27/24 08:17 Heparin Sod Inj 5000 Unit/Ml Vial SC 07/09/24 20:59 5,000 unit Q12HR DYLAN Administration Cefepime HCl 2 gm/ Sodium 50 mls @ 100 mls/hr 06/26/24 08:52 06/27/24 05:10 Chloride IV 07/03/24 08:51 100 mls/hr Q8HR DYLAN Administration Insulin Human Lispro 0 unit 06/27/24 00:00 06/27/24 12:00 Insulin Lispro (Admelog) 1 Unit/0.01 Ml Unit SC 07/27/24 00:00 Not Given Q6HR DYLAN Protocol Lansoprazole 30 mg 06/28/24 09:00 Lansoprazole 30 Mg Tab.Anisha. GT 07/25/24 17:14 QDAY DYLAN Levetiracetam 1,000 mg 06/25/24 21:00 06/27/24 08:17 Levetiracetam 250 Mg Tablet PO 07/25/24 20:59 1,000 mg BID DYLAN Administration Valproic Acid 500 mg 06/25/24 22:00 06/27/24 05:10 Valproic Acid Syrup 250 Mg/5 Ml Udc 07/25/24 21:59 500 mg TID DYLAN Administration Vancomycin HCl 125 mg 06/27/24 08:15 06/27/24 12:37 Vancomycin Oral Solution 25 Mg/Ml 07/04/24 08:14 125 mg Q6HR DYLAN Administration Plan 69-year-old female with a past medical history of epilepsy, hypertension, hyperlipidemia, diabetes mellitus (no medication on board per chart review), recent history history of C. difficile requiring vancomycin who was admitted for sepsis secondary to UTI. #Sepsis, secondary to UTI #UTI #Klebsiella Pneumoniae #Leukocytosis, down trending. Patient presented with sepsis secondary to UTI with positive UA showing WBC of 258, positive esterase, and nitrates w/ RBC 1728. Bacteria 2+. Pneumonia can not be ruled out given mild congrestion noted on chest x-ray and upper air way sounds vs MA less likely given normal troponin levels with EKG showing Q waves in leads II, III, and AVF but no reciprocal leads thus less likely MA. Given recent history of c. diff can not be ruled out, pending c. diff pcr but will follow up with CT abdomen. WBC 23.3;ABG pH 7.38, pCO2 49, pO2 106, HCO3 29, O2 saturation 99 FIO2 30-->WBC 20.9 () down trend UA Positive for esterase, bacteria, nitrates and WBC Urine Culture Klebsiella pneumoniae Blood culture 1/2 bottles Gram Negative Rods CT head unremarkable. SOFA 4; GCS 11 Plan: -Cefepmine: (06/26/2024-) -Vancomycin & Zosyn X 1 ER 06/25/2024 -Vancomycin (06/26/2024-) -Ceftriaxone dc/ed 06/25/2024-06/26/2024 #Ventilator Associated Pneumonia #Pneumonia #GNR Given recent hospitalization in May, upper airway sounds, recent antibiotic use, mechanical associated pneumonia can not be ruled out. Given sputum culture is noted to have gram negative rods, Klebsiella Pneumoniae can not be ruled out as source of infection given positive urine culture and 1/2 bottles present in blood culture w/ GNR. Other bacteria that can not be ruled out is MRSA and Enterobacter vs CAP vs viral less likely given negative flu, rsv, and COVID. Diagnostics: -Sputum Culture: Gram Negative Rods -Blood culture 1/2 bottles Gram Negative Rods -CT Abdomen/Pelvis: Atelectasis versus mild pneumonia left base Plan -Cefepime 2 gm IV Q8H (06/26/2024) -Consider repeat blood culture -monitor oxygen saturation #Clostridioides Difficlile Patient has past medical history C. diff that was treated from April-May which was treated with Vancomycin at [facility]. Per patient's sister, completed course and only 1 previous episode of C. Diff per patient's sister. Diagnostics: CT Abdomen/Pelvis: Findings most consistent with bilateral urinary tract infection and cystitis, likely vesicoureteral reflux. Cholelithiasis. Negative for toxic megacolon. Negative for obstruction C.Diff PCR: Positive Plan -C. Diff percautions -Vancomhycin oral 125 GT Q6HR (oral) 06/27/2024-->continue for 14 days, consider ronald -Consult Infectious Disease, appreciate recommendations, Dr. Gates. #Diabetes Mellitus Type 2 Past medical history of diabetes mellitus type 2 but no medication on board from [facility]. Diagnostics: A1c 5.5 w/ Fasting glucose (06/27/2004) 151 -total of 2 units given 06/26/2024 Plan -Continue to monitor fasting glucose -Sliding Lispro scale #Hypertension given soft blood pressure, holding Doxazosin and Losartan. Continue to hold home anti-hypertensive medication as BP has been <120/110. Plan -Hold home medication of Losartan and Doxazosin #History of Seizures Plan -Resume Levetiracetam 1000 mg GT BID dylan and Valproic Acid 500 mg GT TID -Seizure precautions -head of the bed at 30 degrees #GT NPO currently, resume GT after windows technical specialist recommendations #Normocytic Anemia On admisison, patient presented with Hgb of 10.7, Hct 32.0 and MCV of 88 likely anemia of chronic disease, no acute intervention Diagnostics: Hgb 9.2 hct 27.6, mcv 89 plan -consider iron panel, b12, and folic as outpatient -prior to discharge start iron, currently holding given sepsis #Hypoosmolar Mild Hyponatremia, improved Mild hyponatremia noted on admission w/ Na of 133 w/ osmolarity of 267, likely secondary to dilution from bolus given overnight. Diagnostics: Na 134, Osmolarity 273 Plan -Monitor sodium -no acute intervention #Cholelthiasis incidental finding noted on CT abdomen/Pelvis Plan -continue to monitor -no acute intervention #Mild Hyperkalemia, resolved. #lactic Acidodsis, resolved. Health Maintenance: Disp: Pt is currently admitted to floors for further management of sepsis , awaiting improved WBCs FEN:Glucerna 1.2 @ 58ml/hr x 22hrs via G tube by pump to provide: 1276ml total vol, 1531kcal, 76g protein. If no IVF, give AF 40ml/hr water x 24hrs (or per MD) DVT: on subQ heparin Code: DNR - The patient's plan was discussed with attending Dr. Canales and senior residents Dr. Naila Barreto MD PGY1 Internal Medicine Attending Provider Attestation/Addendum I have discussed and was present for the essential components of the history, physical examination, diagnosis, and treatment plan with the resident. I agree with the patient's care as documented by the resident and amended herein by me. Mc Canales, DO. Patient seen and evaluated this AM. Vital signs stable, patient afebrile overnight. Per nurse, reported for very loose stools overnight and this morning. Blood pressure a bit soft 92/62, patient remains on mechanical ventilation however peak and plateau pressures are WNL. WBC is down trended to 20, slight dip in hemoglobin 8.2 today. CBC largely unremarkable. C. difficile PCR was positive however she was treated in the past 2 months, at least 1 time, we will try to obtain records and reach out to her family to figure out how many times she has been treated for a C. difficile infection. At this time, from a clinical standpoint we will start p.o. vancomycin and treat her again considering multiple episodes of loose stools, will continue cefepime for now, blood cultures are demonstrating GNR, urine culture demonstrating multidrug- resistant Klebsiella however is sensitive to cefepime. Infectious disease consulted, will tailor antibiotics per recommendations, patient initially started on cefepime for possible hospital-acquired pneumonia. Specialist recommendations appreciated, will monitor the patient closely Although this document has been carefully reviewed, there may still be some phonetic and other typographical errors. These errors are purely grammatical due to imperfections in the software program and should not be construed in any way to compromise the substance of the patient's medical care during this visit.
--- NOTE | 2024-06-27 15:03 | PC.SS ---
CLINICAL ENGINEERING MANAGER conducted phone contact with the patient?s sister, Suzie Ennis ; to conduct initial assessment and to discuss discharge plan.? [facility] Patient has been placed at [facility] for approximately 1 week.? Patient had previously been placed in [place], [place].? Patient admitted due to elevated WBC count and positive urine culture. ?Patient is Trach/PEG.? Patient?s medical surrogate decision maker is sister, Suzie Ennis.? Discharge plan is for the patient to return to [facility] upon medical clearance.? No discharge needs identified by the patient.? No further intervention required at this time, geriatric social work professor will be available to address any further concerns.? Next of Kin: Suzie Ennis D/C Plan: Sub-Acute
--- NOTE | 2024-06-27 15:40 | PC.SS ---
Rounding Note: Patient from sub-acute. Receiving IV antibiotics. Patient is C-Diff positive.
[2024-06-27] MEDS: ATORVASTATIN CALCIUM 20 MG TABLET 40 MG GT (20:42)
[2024-06-27 22:36] LABS: Vancomycin,Trough < 3.0 mcg/mL (5.0-10.0)
[2024-06-28] VITALS (10 sets, daily range): BP systolic 122–179; BP diastolic 72–90; PULSE 75–108; RESP 19–34; TEMP 36.1–37.1; O2SAT 95–99; BMI 32.8; BMI 32.3
[2024-06-28] MEDS: CEFEPIME INJ 2 GM in SODIUM CHLORIDE 0.9% (Popper) 50 ML IV ×3 (05:07→21:35)
[2024-06-28] MEDS: VALPROIC ACID SYRUP 250 MG/5 ML UDC 500 MG GT ×3 (05:07→21:34)
[2024-06-28] MEDS: VANCOMYCIN 25 MG/ML 125 MG GT ×3 (05:07→18:03)
[2024-06-28 05:47] LABS: Basophils # (Auto) 0.1 Thou/mm3 (0.0-0.2); Basophils % (Auto) 1 % (0-2.5); Eosinophils # (Auto) 0.1 Thou/mm3 (0.0-0.5); Eosinophils % (Auto) 1 % (0-10); Hemoglobin 8.8 g/dL (12.0-16.0); Immature Granulocytes % (Auto) 1 % (0-0); Immature Granulocytes Auto 0.15 Thou/mm3 (0.00-0.00); Lymphocytes # (Auto) 1.6 Thou/mm3 (1.0-4.8); Lymphocytes % (Auto) 12 % (10-50); Mean Corpuscular HGB Conc 32.6 g/dl (31.0-37.0); Mean Corpuscular Hemoglobin 29.1 pg (25.0-35.0); Mean Corpuscular Volume 89 fL (80-100); Monocytes # (Auto) 2.3 Thou/mm3 (0.0-0.8); Monocytes % (Auto) 18 % (0-12); Neutrophils # (Auto) 8.9 Thou/mm3 (1.8-7.7); Neutrophils % (Auto) 68 % (37-80); Nucleated Red Blood Cell % 0 /100 WBC (0); Platelet Count 124 Thou/mm3 (140-440); RDW Standard Deviation 54.4 fL (36.4-46.3); Red Blood Count 3.02 Miln/mm3 (4.00-5.20); White Blood Count 13.1 Thou/mm3 (3.6-11.0)
[2024-06-28 06:39] LABS: Alanine Aminotransferase 9 U/L (10-49); Albumin, Serum 3.7 gm/dL (3.4-4.8); Albumin/Globulin Ratio 1.3 (1.2-2.2); Alkaline Phosphatase 65 U/L (46-116); Anion Gap 7 (7-16); Aspartate Amino Transferase 29 U/L (0-34); BUN/Creatinine Ratio 28 Ratio (12-20); Bilirubin,Total < 0.2 mg/dL (0.3-1.2); Blood Urea Nitrogen 17 mg/dL (9-23); Calcium 8.5 mg/dL (8.3-10.6); Calcium (Corrected) 8.7 mg/dL (8.5-10.1); Carbon Dioxide 26.3 mMol/L (20.0-31.0); Chloride 98 mMol/L (98-107); Creatinine (Component) 0.6 mg/dL (0.6-1.3); Estimated Creatinine Clearance 93.3 mL/min (>60); Globulin 2.9 gm/dL (2.3-3.5); Glucose 123 mg/dL (74-106); Magnesium 2.1 mg/dL (1.6-2.6); Osmolality,Calculated 265 (275-295); Potassium 4.9 mMol/L (3.4-5.1); Sodium 131 mMol/L (136-145); Total Protein 6.6 gm/dL (5.7-8.2); eGFR > 60 See Note
[2024-06-28] MEDS: FLUCONAZOLE 100 MG TABLET 400 MG PO (09:26)
[2024-06-28] MEDS: levETIRAcetam 250 MG TABLET 1000 MG PO ×2 (09:26→21:34)
[2024-06-28] MEDS: LANSOPRAZOLE 30 MG TAB.RAP.DR GT (09:26)
[2024-06-28] MEDS: NAPH,KPH MBDB 1 PACKET (1.5 GM) PO (09:26)
[2024-06-28] MEDS: ASPIRIN 81 MG CHEW GT (09:26)
--- NOTE | 2024-06-28 11:24 | CHAP ---
Patient was visited by the Spiritual Care Volunteer who prayed for them. (Volunteer was in the hospital from 10:27-11:24).
--- NOTE | 2024-06-28 12:59 | PC.SS ---
Follow up note: Patient is a resident from our subacute. Patient will return. She is positive for cdiff. Patient on antibiotics. D/c 2-3 days
--- NOTE | 2024-06-28 14:00 | ESPR_ITS ---
<Statement entered by Laxmi Yoo MD - 06/28/24 14:27> Patient seen and examined. No acute overnight events. WBC down trended, CMP unremarkable. Patient was afebrile, urine culture with Klebsiella pneumonia, blood and urine cultures positive for Klebsiella PNA. Sputum culture positive for GNR. Patient continued on Vanco p.o. as well as the cefepime. Overnight patient had only 1 bowel movement. Pending ID consultation. I personally saw and examined the patient and discussed the assessment and plan with the entire medicine team, including my attending Dr. Canales, Laxmi Yoo M.D. PGY-2 Disclaimer: Despite multiple revisions, due to the dictation software being used, the document bellow may not be free of grammatical errors including phonetic/typographic errors. However, this does not deter from our commitment to providing health care in the patient's best interest in mind. Ally Documentation for date of: 06/28/24 Subjective Subjective Interval history: Overnight events reported. No pyrexia reported overnight. 1 soft stool reported. Patient was more alert but remains non-verbal. Continue oral vancomycin for C. diff and continue Cefepmine for bacteremia secondary to UTI and dual coverage with pneumonia. Hillary's sister will likely visit this Monday. Exam Vital Signs Temp Pulse Resp BP Pulse Ox O2 Del Method O2 Flow Rate 97.0 F 85 26 H 122/76 98 Mechanical Ventilation 7 06/28/24 12:00 06/28/24 12:59 06/28/24 12:00 06/28/24 12:00 06/28/24 12:59 06/28/24 12:00 06/28/24 12:00 FiO2 30 06/28/24 12:59 Narrative Exam General Appearance: Alert & Oriented X0, well-nourished female who is lying in bed in no acute distress HEENT: Skull symmetrical and atraumatic. Conjunctivae pin and moist. Pupils equal, round, reactive to light and accommodation (PERRL). External ear without lesion or discharge. Straight, nares patient, mucosa pink, no discharge. No thyroid nodule appreciated. No cervical lymphadenopathy. Cardio: Normal Rate and Rhythm with S1 and S2 heart sounds. No murmurs or extra heart sounds auscultated, difficult to appreciate given upper airway sounds. No bruits on carotid auscultation. No peripheral edema or cyanosis. Lungs: Symmetric with good expansion. Chest and back non-tender. Breath sounds vesicular with upper airway. Abdomen: Non-tender, Non-distended, Normal Reactive Bowel Sounds. No grimacing noted on physical exam. Neuro: Yes Alert, No cooperative, No oriented to person, No place, and No time. Speech clear. CN grossly intact. Motor function difficult to access patient does not follow commands. Sensation intact. Objective Labs 06/28/24 05:05 06/28/24 05:05 Labs: Laboratory Results - last 24 hr 06/27/24 06/28/24 21:30 05:05 WBC 13.1 H D RBC 3.02 L Hgb 8.8 L Hct 27.0 L MCV 89 MCH 29.1 MCHC 32.6 RDW Std Deviation 54.4 H Plt Count 124 L D Neut % (Auto) 68 Lymph % (Auto) 12 [place] % (Auto) 18 H Eos % (Auto) 1 Baso % (Auto) 1 Neut # (Auto) 8.9 H Lymph # (Auto) 1.6 [place] # (Auto) 2.3 H Eos # (Auto) 0.1 Baso # (Auto) 0.1 Immature Gran # (Auto) 0.15 H Absolute Nucleated RBC 0.00 Immature Gran % 1 H Nucleated RBC % 0 Sodium 131 L Potassium 4.9 Chloride 98 Carbon Dioxide 26.3 Anion Gap 7 BUN 17 Creatinine 0.6 Estim Creat Clear Calc 93.3 eGFR > 60 BUN/Creatinine Ratio 28 H Glucose 123 H Calculated Osmolality 265 L Calcium 8.5 Corrected Calcium 8.7 Phosphorus 2.0 L Magnesium 2.1 Total Bilirubin < 0.2 L AST 29 ALT 9 L Alkaline Phosphatase 65 D Total Protein 6.6 Albumin 3.7 D Globulin 2.9 Albumin/Globulin Ratio 1.3 Vancomycin Trough < 3.0 L ABG Interpretation ABG results: 06/25/24 15:55 VBG pH 7.34 VBG pCO2 57 H VBG pO2 46 VBG Base Excess 4 H Quality Measures Quality Measures none Advance care planning discussed with:: other Assessment & Plan Assessment Current Active Medications: Generic Name Dose Route Start Last Admin Trade Name Freq PRN Reason Stop Dose Admin Acetaminophen 650 mg 06/25/24 19:11 06/27/24 00:51 Acetaminophen Ericka 325 Mg/10 Ml Udc GT 07/25/24 17:02 650 mg Q6H PRN Administration pain 1-3 and fever >100.3 Aspirin 81 mg 06/28/24 09:00 06/28/24 09:26 Aspirin 81 Mg Chew GT 07/25/24 17:14 81 mg QDAY DYLAN Administration Atorvastatin Calcium 40 mg 06/26/24 21:00 06/27/24 20:42 Atorvastatin Calcium 20 Mg Tablet GT 07/26/24 20:59 40 mg HS DYLAN Administration Buspirone HCl 10 mg 06/25/24 17:12 Buspirone Hcl 5 Mg Tablet GT 07/25/24 17:11 Q8HR PRN AGITATION Dextrose 25 ml 06/25/24 17:34 Dextrose 50%-Water Inj 50 Ml Syringe IV 07/25/24 17:33 Q15MIN PRN BG 50-70 responsive npo pt Dextrose 50 ml 06/25/24 17:34 Dextrose 50%-Water Inj 50 Ml Syringe IV 07/25/24 17:33 Q15MIN PRN BG <50 OR BG <70 & pt unresponsive Docusate Sodium 100 mg 06/25/24 19:16 Docusate Sod Liqd 100 Mg/10 Ml Udc GT 07/25/24 17:02 QDAY PRN CONSTIPATION Protocol Fluconazole 400 mg 06/26/24 09:00 06/28/24 09:26 Fluconazole 100 Mg Tablet PO 07/03/24 08:59 400 mg QDAY DYLAN Administration Glucagon 1 mg 06/25/24 17:34 Glucagon Inj 1 Mg Vial IM Q15MIN PRN BG <70, and no IV access Heparin Sodium (Porcine) 5,000 unit 06/25/24 21:00 06/27/24 20:42 Heparin Sod Inj 5000 Unit/Ml Vial SC 07/09/24 20:59 5,000 unit Q12HR DYLAN Administration Cefepime HCl 2 gm/ Sodium 50 mls @ 100 mls/hr 06/26/24 08:52 06/28/24 13:55 Chloride IV 07/03/24 08:51 100 mls/hr Q8HR DYLAN Administration Insulin Human Lispro 0 unit 06/27/24 00:00 06/28/24 12:53 Insulin Lispro (Admelog) 1 Unit/0.01 Ml Unit SC 07/27/24 00:00 Not Given Q6HR DYLAN Protocol Lansoprazole 30 mg 06/28/24 09:00 06/28/24 09:26 Lansoprazole 30 Mg Tab. GT 07/25/24 17:14 30 mg QDAY DYLAN Administration Levetiracetam 1,000 mg 06/25/24 21:00 06/28/24 09:26 Levetiracetam 250 Mg Tablet PO 07/25/24 20:59 1,000 mg BID DYLAN Administration Valproic Acid 500 mg 06/25/24 22:00 06/28/24 13:55 Valproic Acid Syrup 250 Mg/5 Ml Udc GT 07/25/24 21:59 500 mg TID DYLAN Administration Vancomycin HCl 125 mg 06/27/24 08:15 06/28/24 13:55 Vancomycin Oral Solution 25 Mg/Ml GT 07/04/24 08:14 125 mg Q6HR DYLAN Administration Plan 69-year-old female with a past medical history of epilepsy, hypertension, hyperlipidemia, diabetes mellitus (no medication on board per chart review), recent history history of C. difficile requiring vancomycin who was admitted for sepsis secondary to UTI. #Bacteremia #Sepsis, secondary to UTI #UTI #Klebsiella Pneumoniae #Leukocytosis, down trending. Patient presented with sepsis secondary to UTI with positive UA showing WBC of 258, positive esterase, and nitrates w/ RBC 1728. Bacteria 2+. Pneumonia can not be ruled out given mild congrestion noted on chest x-ray and upper air way sounds vs [place] less likely given normal troponin levels with EKG showing Q waves in leads II, III, and AVF but no reciprocal leads thus less likely [place]. Given recent history of c. diff can not be ruled out, pending c. diff pcr but will follow up with CT abdomen. WBC 23.3;ABG pH 7.38, pCO2 49, pO2 106, HCO3 29, O2 saturation 99 FIO2 30-->WBC 20.9 () down trend UA Positive for esterase, bacteria, nitrates and WBC Urine Culture Klebsiella pneumoniae Blood culture 1/2 bottles Gram Negative Rods CT head unremarkable. SOFA 4; GCS 11 Plan: -Cefepmine: (06/26/2024-) -Vancomycin & Zosyn X 1 ER 06/25/2024 -Vancomycin (06/26/2024-) -Ceftriaxone dc/ed 06/25/2024-06/26/2024 #Ventilator Associated Pneumonia #Pneumonia #GNR Given recent hospitalization in May, upper airway sounds, recent antibiotic use, mechanical associated pneumonia can not be ruled out. Given sputum culture is noted to have gram negative rods, Klebsiella Pneumoniae can not be ruled out as source of infection given positive urine culture and 1/2 bottles present in blood culture w/ GNR. Other bacteria that can not be ruled out is MRSA and Enterobacter vs CAP vs viral less likely given negative flu, rsv, and COVID. Diagnostics: -Sputum Culture: Gram Negative Rods -Blood culture 1/2 bottles Gram Negative Rods, klebsiella pneumoniae -CT Abdomen/Pelvis: Atelectasis versus mild pneumonia left base Plan -Cefepime 2 gm IV Q8H (06/26/2024) -Consider repeat blood culture -monitor oxygen saturation #Clostridioides Difficlile Patient has past medical history C. diff that was treated from April-May which was treated with Vancomycin at [facility]. Per patient's sister, completed course and only 1 previous episode of C. Diff per patient's sister. Diagnostics: CT Abdomen/Pelvis: Findings most consistent with bilateral urinary tract infection and cystitis, likely vesicoureteral reflux. Cholelithiasis. Negative for toxic megacolon. Negative for obstruction C.Diff PCR: Positive Plan -C. Diff percautions -Vancomhycin oral 125 GT Q6HR (oral) 06/27/2024--07/06/2024>continue for 10 days -Consult Infectious Disease, appreciate recommendations, Dr. Gates. #Diabetes Mellitus Type 2 Past medical history of diabetes mellitus type 2 but no medication on board from SNF. No sliding scale given for today. Diagnostics: A1c 5.5 w/ Fasting glucose (06/27/2004) 151 -total of 2 units given 06/26/2024 Plan -Continue to monitor fasting glucose -Sliding Lispro scale #Hypertension given soft blood pressure, holding Doxazosin and Losartan. Continue to hold home anti-hypertensive medication as BP has been <120/110. Plan -Hold home medication of Losartan and Doxazosin #History of Seizures Plan -Resume Levetiracetam 1000 mg GT BID dylan and Valproic Acid 500 mg GT TID -Seizure precautions -head of the bed at 30 degrees #GT NPO currently, resume GT after computer game designer recommendations #Normocytic Anemia On admission, patient presented with Hgb of 10.7, Hct 32.0 and MCV of 88 likely anemia of chronic disease, no acute intervention Diagnostics: Hgb 9.2 hct 27.6, mcv 89--> (06/28/2024) Hgb 8.8, hct 27.0, MCV 89 plan -consider iron panel, b12, and folic as outpatient -prior to discharge start iron, currently holding given sepsis #Hypoosmolar Mild Hyponatremia, improved Mild hyponatremia noted on admission w/ Na of 133 w/ osmolarity of 267, likely secondary to dilution from bolus given overnight. Diagnostics: Na 134, Osmolarity 273 Plan -Monitor sodium -no acute intervention #Cholelthiasis incidental finding noted on CT abdomen/Pelvis Plan -continue to monitor -no acute intervention #Mild Hyperkalemia, resolved. #lactic Acidodsis, resolved. Health Maintenance: Disp: Pt is currently admitted to floors for further management of sepsis , awaiting improved WBCs FEN:Glucerna 1.2 @ 58ml/hr x 22hrs via G tube by pump to provide: 1276ml total vol, 1531kcal, 76g protein. If no IVF, give AF 40ml/hr water x 24hrs (or per MD) DVT: on subQ heparin Code: DNR - The patient's plan was discussed with attending Dr. Canales and senior residents Dr. Naila Barreto MD PGY1 Internal Medicine Attending Provider Attestation/Addendum I have discussed and was present for the essential components of the history, physical examination, diagnosis, and treatment plan with the resident. I agree with the patient's care as documented by the resident and amended herein by me. Mc Canales, DO. Patient seen and evaluated this AM. Vital signs stable, patient afebrile overnight. 1 bowel movement reported loose, overnight, patient afebrile overnight. WBCs continues to downtrend 13 today, hemoglobin stable 8.8, platelets 124 today. Will continue p.o. vancomycin for now for C. difficile infection, will continue to follow-up with cultures, thus far sputum cultures demonstrated GNR, urine culture demonstrating pansensitive Klebsiella and blood cultures also demonstrating Klebsiella x 1 set in the aerobic bottle only. Will continue cefepime which covers the above and pseudomonal coverage, will de- escalate once sputum culture resolves. Will continue to monitor closely, appreciate specialist recommendations.
[2024-06-28] MEDS: ATORVASTATIN CALCIUM 20 MG TABLET 40 MG GT (21:34)
[2024-06-28] MEDS: HEPARIN SOD INJ 5000 UNIT/ML VIAL SC (21:35)
[2024-06-29] VITALS (9 sets, daily range): BP systolic 122–142; BP diastolic 55–76; PULSE 71–94; RESP 18–34; TEMP 36.1–36.3; O2SAT 97–99; BMI 32.3
[2024-06-29] MEDS: VANCOMYCIN 25 MG/ML 125 MG GT ×5 (00:33→23:29)
[2024-06-29] MEDS: VALPROIC ACID SYRUP 250 MG/5 ML UDC 500 MG GT ×3 (05:20→21:35)
[2024-06-29] MEDS: CEFEPIME INJ 2 GM in SODIUM CHLORIDE 0.9% (Popper) 50 ML IV ×3 (05:21→21:35)
[2024-06-29 06:29] LABS: Basophils # (Auto) 0.1 Thou/mm3 (0.0-0.2); Basophils % (Auto) 1 % (0-2.5); Eosinophils # (Auto) 0.3 Thou/mm3 (0.0-0.5); Eosinophils % (Auto) 3 % (0-10); Hematocrit 27.9 % (36.0-46.0); Immature Granulocytes % (Auto) 2 % (0-0); Immature Granulocytes Auto 0.21 Thou/mm3 (0.00-0.00); Lymphocytes # (Auto) 1.7 Thou/mm3 (1.0-4.8); Lymphocytes % (Auto) 18 % (10-50); Mean Corpuscular HGB Conc 32.3 g/dl (31.0-37.0); Mean Corpuscular Hemoglobin 29.2 pg (25.0-35.0); Mean Corpuscular Volume 91 fL (80-100); Monocytes # (Auto) 1.7 Thou/mm3 (0.0-0.8); Monocytes % (Auto) 18 % (0-12); Neutrophils # (Auto) 5.7 Thou/mm3 (1.8-7.7); Neutrophils % (Auto) 59 % (37-80); Nucleated Red Blood Cell % 0 /100 WBC (0); Platelet Count 232 Thou/mm3 (140-440); RDW Standard Deviation 54.2 fL (36.4-46.3); Red Blood Count 3.08 Miln/mm3 (4.00-5.20); White Blood Count 9.7 Thou/mm3 (3.6-11.0)
[2024-06-29 07:04] LABS: Alanine Aminotransferase 10 U/L (10-49); Albumin, Serum 3.6 gm/dL (3.4-4.8); Albumin/Globulin Ratio 1.2 (1.2-2.2); Alkaline Phosphatase 66 U/L (46-116); Anion Gap 7 (7-16); Aspartate Amino Transferase 23 U/L (0-34); BUN/Creatinine Ratio 33 Ratio (12-20); Bilirubin,Total 0.2 mg/dL (0.3-1.2); Blood Urea Nitrogen 20 mg/dL (9-23); Calcium 8.9 mg/dL (8.3-10.6); Calcium (Corrected) 9.2 mg/dL (8.5-10.1); Carbon Dioxide 31.4 mMol/L (20.0-31.0); Chloride 96 mMol/L (98-107); Creatinine (Component) 0.6 mg/dL (0.6-1.3); Estimated Creatinine Clearance 92.6 mL/min (>60); Globulin 2.9 gm/dL (2.3-3.5); Glucose 124 mg/dL (74-106); Magnesium 2.3 mg/dL (1.6-2.6); Osmolality,Calculated 271 (275-295); Phosphorous 2.5 mg/dL (2.4-5.1); Potassium 4.7 mMol/L (3.4-5.1); Sodium 134 mMol/L (136-145); Total Protein 6.5 gm/dL (5.7-8.2); eGFR > 60 See Note
[2024-06-29] MEDS: FLUCONAZOLE 100 MG TABLET 400 MG PO (09:05)
[2024-06-29] MEDS: ASPIRIN 81 MG CHEW GT (09:05)
[2024-06-29] MEDS: levETIRAcetam 250 MG TABLET 1000 MG PO (09:05)
[2024-06-29] MEDS: HEPARIN SOD INJ 5000 UNIT/ML VIAL SC ×2 (09:06→21:37)
[2024-06-29] MEDS: LANSOPRAZOLE 30 MG TAB.RAP.DR GT (09:06)
--- NOTE | 2024-06-29 12:11 | ESPR_ITS ---
Documentation for date of: 06/29/24 Subjective Subjective Interval history: Overnight 2 bowel movements reported for patient that remained watery. No pyrexia reported overnight. Patient overall appears more alert than previous days. No increased work of breathing noted. No grimacing noted during physical exam. Patient 2 mg IV every 8 hours for bacteremia UTI and pneumonia. Additionally continue vancomycin oral medication June 27 through July 06. Pending speciation for sputum culture showing GNR. Exam Vital Signs Temp Pulse Resp BP Pulse Ox O2 Del Method O2 Flow Rate 97.3 F 90 20 142/65 H 97 Blow-by 7 06/29/24 08:00 06/29/24 08:00 06/29/24 08:00 06/29/24 08:00 06/29/24 08:00 06/29/24 08:00 06/29/24 04:00 FiO2 30 06/29/24 07:03 Narrative Exam General Appearance: Alert & Oriented X0, Non-verbal, well-nourished female who is lying in bed in no acute distress HEENT: Skull symmetrical and atraumatic. Conjunctivae pin and moist. Pupils equal, round, reactive to light and accommodation (PERRL). External ear without lesion or discharge. Straight, nares patient, mucosa pink, no discharge. No thyroid nodule appreciated. No cervical lymphadenopathy. Cardio: Normal Rate and Rhythm with S1 and S2 heart sounds. Difficult to appreciate given body hapbitus. No bruits on carotid auscultation. No peripheral edema or cyanosis. Lungs: Symmetric with good expansion. Chest and back non-tender. Breath sounds vesicular without crackles, wheezing or rhonchi Abdomen: Non-tender, Non-distended, Normal Reactive Bowel Sounds Neuro: Alert, cooperative, oriented to person, place, and time. Non-verbal CN grossly intact. Upper and lower extremities contracted, not following commands. Objective Labs 06/29/24 05:40 06/29/24 05:40 Labs: Laboratory Results - last 24 hr 06/29/24 05:40 WBC 9.7 RBC 3.08 L Hgb 9.0 L Hct 27.9 L MCV 91 MCH 29.2 MCHC 32.3 RDW Std Deviation 54.2 H Plt Count 232 D Neut % (Auto) 59 Lymph % (Auto) 18 [place] % (Auto) 18 H Eos % (Auto) 3 Baso % (Auto) 1 Neut # (Auto) 5.7 Lymph # (Auto) 1.7 [place] # (Auto) 1.7 H Eos # (Auto) 0.3 Baso # (Auto) 0.1 Immature Gran # (Auto) 0.21 H Absolute Nucleated RBC 0.00 Immature Gran % 2 H Nucleated RBC % 0 Sodium 134 L Potassium 4.7 Chloride 96 L Carbon Dioxide 31.4 H Anion Gap 7 BUN 20 Creatinine 0.6 Estim Creat Clear Calc 92.6 eGFR > 60 BUN/Creatinine Ratio 33 H Glucose 124 H Calculated Osmolality 271 L Calcium 8.9 Corrected Calcium 9.2 Phosphorus 2.5 Magnesium 2.3 Total Bilirubin 0.2 L AST 23 ALT 10 Alkaline Phosphatase 66 Total Protein 6.5 Albumin 3.6 Globulin 2.9 Albumin/Globulin Ratio 1.2 ABG Interpretation ABG results: 06/25/24 15:55 VBG pH 7.34 VBG pCO2 57 H VBG pO2 46 VBG Base Excess 4 H Quality Measures Quality Measures none Advance care planning discussed with:: other Assessment & Plan Assessment Current Active Medications: Generic Name Dose Route Start Last Admin Trade Name Freq PRN Reason Stop Dose Admin Acetaminophen 650 mg 06/25/24 19:11 06/27/24 00:51 Acetaminophen Ericka 325 Mg/10 Ml Udc GT 07/25/24 17:02 650 mg Q6H PRN Administration pain 1-3 and fever >100.3 Aspirin 81 mg 06/28/24 09:00 06/29/24 09:05 Aspirin 81 Mg Chew GT 07/25/24 17:14 81 mg QDAY DYLAN Administration Atorvastatin Calcium 40 mg 06/26/24 21:00 06/28/24 21:34 Atorvastatin Calcium 20 Mg Tablet GT 07/26/24 20:59 40 mg HS DYLAN Administration Buspirone HCl 10 mg 06/25/24 17:12 Buspirone Hcl 5 Mg Tablet GT 07/25/24 17:11 Q8HR PRN AGITATION Dextrose 25 ml 06/25/24 17:34 Dextrose 50%-Water Inj 50 Ml Syringe IV 07/25/24 17:33 Q15MIN PRN BG 50-70 responsive npo pt Dextrose 50 ml 06/25/24 17:34 Dextrose 50%-Water Inj 50 Ml Syringe IV 07/25/24 17:33 Q15MIN PRN BG <50 OR BG <70 & pt unresponsive Docusate Sodium 100 mg 06/25/24 19:16 Docusate Sod Liqd 100 Mg/10 Ml Udc GT 07/25/24 17:02 QDAY PRN CONSTIPATION Protocol Fluconazole 400 mg 06/26/24 09:00 06/29/24 09:05 Fluconazole 100 Mg Tablet PO 07/03/24 08:59 400 mg QDAY DYLAN Administration Glucagon 1 mg 06/25/24 17:34 Glucagon Inj 1 Mg Vial IM Q15MIN PRN BG <70, and no IV access Heparin Sodium (Porcine) 5,000 unit 06/25/24 21:00 06/29/24 09:06 Heparin Sod Inj 5000 Unit/Ml Vial SC 07/09/24 20:59 5,000 unit Q12HR DYLAN Administration Cefepime HCl 2 gm/ Sodium 50 mls @ 100 mls/hr 06/26/24 08:52 06/29/24 05:21 Chloride IV 07/03/24 08:51 100 mls/hr Q8HR DYLAN Administration Insulin Human Lispro 0 unit 06/27/24 00:00 06/29/24 05:22 Insulin Lispro (Admelog) 1 Unit/0.01 Ml Unit SC 07/27/24 00:00 Not Given Q6HR DYLAN Protocol Lansoprazole 30 mg 06/28/24 09:00 06/29/24 09:06 Lansoprazole 30 Mg Tab. GT 07/25/24 17:14 30 mg QDAY DYLAN Administration Levetiracetam 1,000 mg 06/25/24 21:00 06/29/24 09:05 Levetiracetam 250 Mg Tablet PO 07/25/24 20:59 1,000 mg BID DYLAN Administration Valproic Acid 500 mg 06/25/24 22:00 06/29/24 05:20 Valproic Acid Syrup 250 Mg/5 Ml Udc 07/25/24 21:59 500 mg TID DYLAN Administration Vancomycin HCl 125 mg 06/27/24 08:15 06/29/24 06:34 Vancomycin Oral Solution 25 Mg/Ml GT 07/04/24 08:14 125 mg Q6HR DYLAN Administration Plan 69-year-old female with a past medical history of epilepsy, hypertension, hyperlipidemia, diabetes mellitus (no medication on board per chart review), recent history history of C. difficile requiring vancomycin who was admitted for sepsis secondary to UTI. #Bacteremia #UTI #Klebsiella Pneumoniae #Sepsis, secondary to UTI, Resolved #Leukocytosis, Improved. Patient presented with sepsis secondary to UTI with positive UA showing WBC of 258, positive esterase, and nitrates w/ RBC 1728. Bacteria 2+. Pneumonia can not be ruled out given mild congrestion noted on chest x-ray and upper air way sounds vs [place] less likely given normal troponin levels with EKG showing Q waves in leads II, III, and AVF but no reciprocal leads thus less likely [place]. Given recent history of c. diff can not be ruled out, pending c. diff pcr but will follow up with CT abdomen. WBC 23.3;ABG pH 7.38, pCO2 49, pO2 106, HCO3 29, O2 saturation 99 FIO2 30-->WBC 20.9 () down trend UA Positive for esterase, bacteria, nitrates and WBC Urine Culture Klebsiella pneumoniae Blood culture 1/2 bottles Gram Negative Rods CT head unremarkable. SOFA 4; GCS 11 Plan: -Cefepmine: (06/26/2024-) -Vancomycin & Zosyn X 1 ER 06/25/2024 -Vancomycin (06/26/2024-) -Ceftriaxone dc/ed 06/25/2024-06/26/2024 #Ventilator Associated Pneumonia #Pneumonia #GNR Given recent hospitalization in May, upper airway sounds, recent antibiotic use, mechanical associated pneumonia can not be ruled out. Given sputum culture is noted to have gram negative rods, Klebsiella Pneumoniae can not be ruled out as source of infection given positive urine culture and 1/2 bottles present in blood culture w/ GNR. Other bacteria that can not be ruled out is MRSA and Enterobacter vs CAP vs viral less likely given negative flu, rsv, and COVID. Diagnostics: -Sputum Culture: Gram Negative Rods, pending final results. -Blood culture 1/2 bottles Gram Negative Rods, klebsiella pneumoniae -CT Abdomen/Pelvis: Atelectasis versus mild pneumonia left base Plan -Cefepime 2 gm IV Q8H (06/26/2024) -Consider repeat blood culture -monitor oxygen saturation #Clostridioides Difficlile Patient has past medical history C. diff that was treated from April-May which was treated with Vancomycin at [facility]. Per patient's sister, completed course and only 1 previous episode of C. Diff per patient's sister. Diagnostics: CT Abdomen/Pelvis: Findings most consistent with bilateral urinary tract infection and cystitis, likely vesicoureteral reflux. Cholelithiasis. Negative for toxic megacolon. Negative for obstruction C.Diff PCR: Positive Plan -C. Diff percautions -Vancomhycin oral 125 GT Q6HR (oral) 06/27/2024--07/06/2024>continue for 10 days -Consult Infectious Disease, appreciate recommendations, Dr. Gates. #Diabetes Mellitus Type 2 Past medical history of diabetes mellitus type 2 but no medication on board from [facility]. No sliding scale given for today. Diagnostics: A1c 5.5 w/ Fasting glucose (06/27/2004) 151 -total of 0 units given 06/28/2024 Plan -Continue to monitor fasting glucose -Sliding Lispro scale #Hypertension given soft blood pressure, holding Doxazosin and Losartan. Continue to hold home anti-hypertensive medication as BP has been <120/110. Plan -Hold home medication of Losartan 25 mg and Doxazosin 1 mg tabelt via GT -Consider restarting Losartan 25 mg home medication tomorrow if blood pressure >150. -Labetolol 10 mg IV Q4HR for SBP >160 #History of Seizures Plan -Resume Levetiracetam 1000 mg GT BID dylan and Valproic Acid 500 mg GT TID -Seizure precautions -head of the bed at 30 degrees #GT NPO currently, resume GT after rap artist recommendations #Normocytic Anemia On admission, patient presented with Hgb of 10.7, Hct 32.0 and MCV of 88 likely anemia of chronic disease, no acute intervention Diagnostics: Hgb 9.2 hct 27.6, mcv 89--> (06/28/2024) Hgb 8.8, hct 27.0, MCV 89 plan -consider iron panel, b12, and folic as outpatient -prior to discharge start iron, currently holding given sepsis #Hypoosmolar Mild Hyponatremia, improving Mild hyponatremia noted on admission w/ Na of 133 w/ osmolarity of 267, likely secondary to dilution from bolus given overnight. Diagnostics: Plan -Monitor sodium -no acute intervention #Cholelthiasis incidental finding noted on CT abdomen/Pelvis Plan -continue to monitor -no acute intervention #Mild Hyperkalemia, resolved. #lactic Acidodsis, resolved. Health Maintenance: Disp: Pt is currently admitted to floors for further management of sepsis , awaiting final results of sputum culture GNR FEN:Glucerna 1.2 @ 58ml/hr x 22hrs via G tube by pump to provide: 1276ml total vol, 1531kcal, 76g protein. If no IVF, give AF 40ml/hr water x 24hrs (or per MD) DVT: on subQ heparin Code: DNR - The patient's plan was discussed with attending Dr. Ally Barreto MD PGY1 Internal Medicine Attending Provider Attestation/Addendum I have discussed and was present for the essential components of the history, physical examination, diagnosis, and treatment plan with the resident. I agree with the patient's care as documented by the resident and amended herein by me. Mc Canales DO. Patient seen and evaluated this AM. 3 loose BMs reported overnight, other vital signs stable, patient afebrile overnight. WBC normalized 9.7, hemoglobin 9. Sputum culture demonstrating GNR, awaiting speciation, urine culture demonstrating Klebsiella and blood cultures demonstrating Klebsiella from aerobic bottle. Will continue p.o. vancomycin for now, IV cefepime for treatment, will likely discharge after diarrhea improves. Infectious disease consulted however may be gone through next Monday. Will continue to monitor closely while she is here. Although this document has been carefully reviewed, there may still be some phonetic and other typographical errors. These errors are purely grammatical due to imperfections in the software program and should not be construed in any way to compromise the substance of the patient's medical care during this visit.
[2024-06-29] MEDS: levETIRAcetam LIQD 500 MG/5 ML UDC 1000 MG GT (21:35)
[2024-06-29] MEDS: ATORVASTATIN CALCIUM 20 MG TABLET 40 MG GT (21:37)
[2024-06-30] VITALS (10 sets, daily range): BP systolic 114–135; BP diastolic 59–76; PULSE 69–98; RESP 20–33; TEMP 35.8–36.4; O2SAT 95–98; BMI 33.5
[2024-06-30] MEDS: VALPROIC ACID SYRUP 250 MG/5 ML UDC 500 MG GT ×3 (05:28→21:38)
[2024-06-30] MEDS: CEFEPIME INJ 2 GM in SODIUM CHLORIDE 0.9% (Popper) 50 ML IV ×3 (05:32→21:39)
[2024-06-30 06:07] LABS: Basophils # (Auto) 0.1 Thou/mm3 (0.0-0.2); Basophils % (Auto) 1 % (0-2.5); Eosinophils # (Auto) 0.3 Thou/mm3 (0.0-0.5); Eosinophils % (Auto) 3 % (0-10); Hematocrit 28.1 % (36.0-46.0); Hemoglobin 9.1 g/dL (12.0-16.0); Immature Granulocytes % (Auto) 4 % (0-0); Immature Granulocytes Auto 0.36 Thou/mm3 (0.00-0.00); Lymphocytes # (Auto) 1.8 Thou/mm3 (1.0-4.8); Lymphocytes % (Auto) 20 % (10-50); Mean Corpuscular HGB Conc 32.4 g/dl (31.0-37.0); Mean Corpuscular Hemoglobin 28.6 pg (25.0-35.0); Mean Corpuscular Volume 88 fL (80-100); Monocytes # (Auto) 1.7 Thou/mm3 (0.0-0.8); Monocytes % (Auto) 18 % (0-12); Neutrophils # (Auto) 5.1 Thou/mm3 (1.8-7.7); Neutrophils % (Auto) 55 % (37-80); Nucleated Red Blood Cell % 0 /100 WBC (0); Platelet Count 285 Thou/mm3 (140-440); RDW Standard Deviation 51.3 fL (36.4-46.3); Red Blood Count 3.18 Miln/mm3 (4.00-5.20); White Blood Count 9.4 Thou/mm3 (3.6-11.0)
[2024-06-30] MEDS: VANCOMYCIN 25 MG/ML 125 MG GT ×4 (06:17→23:21)
[2024-06-30 06:58] LABS: Alanine Aminotransferase 10 U/L (10-49); Albumin, Serum 3.8 gm/dL (3.4-4.8); Albumin/Globulin Ratio 1.3 (1.2-2.2); Alkaline Phosphatase 67 U/L (46-116); Anion Gap 8 (7-16); Aspartate Amino Transferase 26 U/L (0-34); BUN/Creatinine Ratio 30 Ratio (12-20); Bilirubin,Total 0.2 mg/dL (0.3-1.2); Blood Urea Nitrogen 18 mg/dL (9-23); Calcium 9.1 mg/dL (8.3-10.6); Calcium (Corrected) 9.3 mg/dL (8.5-10.1); Carbon Dioxide 32.3 mMol/L (20.0-31.0); Chloride 94 mMol/L (98-107); Creatinine (Component) 0.6 mg/dL (0.6-1.3); Estimated Creatinine Clearance 94.4 mL/min (>60); Glucose 117 mg/dL (74-106); Magnesium 2.1 mg/dL (1.6-2.6); Osmolality,Calculated 271 (275-295); Phosphorous 3.6 mg/dL (2.4-5.1); Potassium 4.8 mMol/L (3.4-5.1); Sodium 134 mMol/L (136-145); Total Protein 6.8 gm/dL (5.7-8.2); eGFR > 60 See Note
[2024-06-30] MEDS: levETIRAcetam LIQD 500 MG/5 ML UDC 1000 MG GT ×2 (09:09→21:38)
[2024-06-30] MEDS: LANSOPRAZOLE 30 MG TAB.RAP.DR GT (09:10)
[2024-06-30] MEDS: FLUCONAZOLE 100 MG TABLET 400 MG PO (09:10)
[2024-06-30] MEDS: ASPIRIN 81 MG CHEW GT (09:11)
[2024-06-30] MEDS: HEPARIN SOD INJ 5000 UNIT/ML VIAL SC ×2 (09:11→21:38)
--- NOTE | 2024-06-30 17:34 | ESPR_ITS ---
Documentation for date of: 06/30/24 Subjective Subjective Interval history: Overnight 2 bowel movements, and 1 bowel movement this a.m., which was reported by RN as watery consistency. Patient stays afebrile, is active and visually tracks people in the room, but is virtually nonresponsive to commands, condition static, currently on treatment for C. difficile colitis, consider discharge back to SNF once diarrhea resolves. Also on IV antibiotics for gram-negative bacteremia and pneumonia. White blood cell count downtrending nicely. Exam Vital Signs Temp Pulse Resp BP Pulse Ox O2 Del Method O2 Flow Rate 96.9 F 75 24 H 114/67 97 Mechanical Ventilation 7 06/30/24 16:00 06/30/24 16:00 06/30/24 16:00 06/30/24 16:00 06/30/24 16:00 06/30/24 16:06/30/24 16:00 FiO2 30 06/30/24 16:00 Narrative Exam General Appearance: Alert & Oriented X0, Non-verbal, well-nourished female who is lying in bed in no acute distress HEENT: Skull symmetrical and atraumatic. Conjunctivae pin and moist. Pupils equal, round, reactive to light and accommodation (PERRL). External ear without lesion or discharge. Straight, nares patient, mucosa pink, no discharge. No thyroid nodule appreciated. No cervical lymphadenopathy. Cardio: Normal Rate and Rhythm with S1 and S2 heart sounds. Difficult to appreciate given body hapbitus. No bruits on carotid auscultation. No peripheral edema or cyanosis. Lungs: Symmetric with good expansion. Chest and back non-tender. Breath sounds vesicular without crackles, wheezing or rhonchi Abdomen: Non-tender, Non-distended, Normal Reactive Bowel Sounds Neuro: Alert, cooperative, oriented to person, place, and time. Non-verbal CN grossly intact. Upper and lower extremities contracted, not following commands. Objective Labs 07/01/24 05:00 07/01/24 05:00 Labs: Laboratory Results - last 24 hr 06/30/24 05:35 WBC 9.4 RBC 3.18 L Hgb 9.1 L Hct 28.1 L MCV 88 MCH 28.6 MCHC 32.4 RDW Std Deviation 51.3 H Plt Count 285 D Neut % (Auto) 55 Lymph % (Auto) 20 [place] % (Auto) 18 H Eos % (Auto) 3 Baso % (Auto) 1 Neut # (Auto) 5.1 Lymph # (Auto) 1.8 [place] # (Auto) 1.7 H Eos # (Auto) 0.3 Baso # (Auto) 0.1 Immature Gran # (Auto) 0.36 H Absolute Nucleated RBC 0.00 Immature Gran % 4 H Nucleated RBC % 0 Sodium 134 L Potassium 4.8 Chloride 94 L Carbon Dioxide 32.3 H Anion Gap 8 BUN 18 Creatinine 0.6 Estim Creat Clear Calc 94.4 eGFR > 60 BUN/Creatinine Ratio 30 H Glucose 117 H Calculated Osmolality 271 L Calcium 9.1 Corrected Calcium 9.3 Phosphorus 3.6 Magnesium 2.1 Total Bilirubin 0.2 L AST 26 ALT 10 Alkaline Phosphatase 67 Total Protein 6.8 Albumin 3.8 Globulin 3.0 Albumin/Globulin Ratio 1.3 ABG Interpretation ABG results: 06/25/24 15:55 VBG pH 7.34 VBG pCO2 57 H VBG pO2 46 VBG Base Excess 4 H Quality Measures Quality Measures none Advance care planning discussed with:: patient Assessment & Plan Assessment Current Active Medications: Generic Name Dose Route Start Last Admin Trade Name Freq PRN Reason Stop Dose Admin Acetaminophen 650 mg 06/25/24 19:11 06/27/24 00:51 Acetaminophen Ericka 325 Mg/10 Ml Udc GT 07/25/24 17:02 650 mg Q6H PRN Administration pain 1-3 and fever >100.3 Aspirin 81 mg 06/28/24 09:00 06/30/24 09:11 Aspirin 81 Mg Chew GT 07/25/24 17:14 81 mg QDAY DYLAN Administration Atorvastatin Calcium 40 mg 06/26/24 21:00 06/29/24 21:37 Atorvastatin Calcium 20 Mg Tablet GT 07/26/24 20:59 40 mg HS DYLAN Administration Buspirone HCl 10 mg 06/25/24 17:12 Buspirone Hcl 5 Mg Tablet GT 07/25/24 17:11 Q8HR PRN AGITATION Dextrose 25 ml 06/25/24 17:34 Dextrose 50%-Water Inj 50 Ml Syringe IV 07/25/24 17:33 Q15MIN PRN BG 50-70 responsive npo pt Dextrose 50 ml 06/25/24 17:34 Dextrose 50%-Water Inj 50 Ml Syringe IV 07/25/24 17:33 Q15MIN PRN BG <50 OR BG <70 & pt unresponsive Docusate Sodium 100 mg 06/25/24 19:16 Docusate Sod Liqd 100 Mg/10 Ml Udc 07/25/24 17:02 QDAY PRN CONSTIPATION Protocol Fluconazole 400 mg 06/26/24 09:00 06/30/24 09:10 Fluconazole 100 Mg Tablet PO 07/03/24 08:59 400 mg QDAY DYLAN Administration Glucagon 1 mg 06/25/24 17:34 Glucagon Inj 1 Mg Vial IM Q15MIN PRN BG <70, and no IV access Heparin Sodium (Porcine) 5,000 unit 06/25/24 21:00 06/30/24 09:11 Heparin Sod Inj 5000 Unit/Ml Vial SC 07/09/24 20:59 5,000 unit Q12HR DYLAN Administration Cefepime HCl 2 gm/ Sodium 50 mls @ 100 mls/hr 06/26/24 08:52 06/30/24 13:45 Chloride IV 07/03/24 08:51 100 mls/hr Q8HR DYLAN Administration Insulin Human Lispro 0 unit 06/27/24 00:00 06/30/24 17:14 Insulin Lispro (Admelog) 1 Unit/0.01 Ml Unit SC 07/27/24 00:00 Not Given Q6HR DYLAN Protocol Labetalol HCl 10 mg 06/29/24 13:54 Labetalol Inj 5 Mg/Ml Vial 20 Ml IVP 07/29/24 13:53 Q4HR PRN Hypertension Lansoprazole 30 mg 06/28/24 09:00 06/30/24 09:10 Lansoprazole 30 Mg Tab.Anihsa. 07/25/24 17:14 30 mg QDAY DYLAN Administration Levetiracetam 1,000 mg 06/29/24 21:00 06/30/24 09:09 Levetiracetam Liqd 500 Mg/5 Ml [facility] 07/25/24 20:59 1,000 mg BID DYLAN Administration Valproic Acid 500 mg 06/25/24 22:00 06/30/24 13:45 Valproic Acid Syrup 250 Mg/5 Ml [facility] 07/25/24 21:59 500 mg TID DYLAN Administration Vancomycin HCl 125 mg 06/27/24 08:15 06/30/24 17:06 Vancomycin Oral Solution 25 Mg/Ml 07/04/24 08:14 125 mg Q6HR DYLAN Administration Plan 69-year-old female with a past medical history of epilepsy, hypertension, hyperlipidemia, diabetes mellitus (no medication on board per chart review), recent history history of C. difficile requiring vancomycin who was admitted for sepsis secondary to UTI. #Bacteremia #UTI #Klebsiella Pneumoniae #Sepsis, secondary to UTI, Resolved #Leukocytosis, Improved. Patient presented with sepsis secondary to UTI with positive UA showing WBC of 258, positive esterase, and nitrates w/ RBC 1728. Bacteria 2+. Pneumonia can not be ruled out given mild congrestion noted on chest x-ray and upper air way sounds vs NH less likely given normal troponin levels with EKG showing Q waves in leads II, III, and AVF but no reciprocal leads thus less likely NH. Given recent history of c. diff can not be ruled out, pending c. diff pcr but will follow up with CT abdomen. WBC 23.3;ABG pH 7.38, pCO2 49, pO2 106, HCO3 29, O2 saturation 99 FIO2 30-->WBC 20.9 () down trend UA Positive for esterase, bacteria, nitrates and WBC Urine Culture Klebsiella pneumoniae Blood culture 1/2 bottles Gram Negative Rods CT head unremarkable. SOFA 4; GCS 11 Plan: -Cefepmine: (06/26/2024-) -Vancomycin & Zosyn X 1 ER 06/25/2024 -Vancomycin (06/26/2024-) -Ceftriaxone dc/ed 06/25/2024-06/26/2024 #Ventilator Associated Pneumonia #Pneumonia #GNR Given recent hospitalization in May, upper airway sounds, recent antibiotic use, mechanical associated pneumonia can not be ruled out. Given sputum culture is noted to have gram negative rods, Klebsiella Pneumoniae can not be ruled out as source of infection given positive urine culture and 1/2 bottles present in blood culture w/ GNR. Other bacteria that can not be ruled out is MRSA and Enterobacter vs CAP vs viral less likely given negative flu, rsv, and COVID. Diagnostics: -Sputum Culture: Gram Negative Rods, pending final results. -Blood culture 1/2 bottles Gram Negative Rods, klebsiella pneumoniae -CT Abdomen/Pelvis: Atelectasis versus mild pneumonia left base Plan -Cefepime 2 gm IV Q8H (06/26/2024) -Consider repeat blood culture -monitor oxygen saturation #Clostridioides Difficlile Patient has past medical history C. diff that was treated from April-May which was treated with Vancomycin at [facility]. Per patient's sister, completed course and only 1 previous episode of C. Diff per patient's sister. Diagnostics: CT Abdomen/Pelvis: Findings most consistent with bilateral urinary tract infection and cystitis, likely vesicoureteral reflux. Cholelithiasis. Negative for toxic megacolon. Negative for obstruction C.Diff PCR: Positive Plan -C. Diff percautions -Vancomhycin oral 125 GT Q6HR (oral) 06/27/2024--07/06/2024>continue for 10 days -Consult Infectious Disease, appreciate recommendations, Dr. Gates. #Diabetes Mellitus Type 2 Past medical history of diabetes mellitus type 2 but no medication on board from [facility]. No sliding scale given for today. Diagnostics: A1c 5.5 w/ Fasting glucose (06/27/2004) 151 -total of 0 units given 06/28/2024 Plan -Continue to monitor fasting glucose -Sliding Lispro scale #Hypertension given soft blood pressure, holding Doxazosin and Losartan. Continue to hold home anti-hypertensive medication as BP has been <120/110. Plan -Hold home medication of Losartan 25 mg and Doxazosin 1 mg tabelt via GT -Consider restarting Losartan 25 mg home medication tomorrow if blood pressure >150. -Labetolol 10 mg IV Q4HR for SBP >160 #History of Seizures Plan -Resume Levetiracetam 1000 mg GT BID dylan and Valproic Acid 500 mg GT TID -Seizure precautions -head of the bed at 30 degrees #GT NPO currently, resume GT after order processor recommendations #Normocytic Anemia On admission, patient presented with Hgb of 10.7, Hct 32.0 and MCV of 88 likely anemia of chronic disease, no acute intervention Diagnostics: Hgb 9.2 hct 27.6, mcv 89--> (06/28/2024) Hgb 8.8, hct 27.0, MCV 89 plan -consider iron panel, b12, and folic as outpatient -prior to discharge start iron, currently holding given sepsis #Hypoosmolar Mild Hyponatremia, improving Mild hyponatremia noted on admission w/ Na of 133 w/ osmolarity of 267, likely secondary to dilution from bolus given overnight. Diagnostics: Plan -Monitor sodium -no acute intervention #Cholelthiasis incidental finding noted on CT abdomen/Pelvis Plan -continue to monitor -no acute intervention #Mild Hyperkalemia, resolved. #lactic Acidodsis, resolved. Health Maintenance: Disp: Pt is currently admitted to floors for further management of sepsis , awaiting final results of sputum culture GNR FEN:Glucerna 1.2 @ 58ml/hr x 22hrs via G tube by pump to provide: 1276ml total vol, 1531kcal, 76g protein. If no IVF, give AF 40ml/hr water x 24hrs (or per MD) DVT: on subQ heparin Code: DNR - The patient's plan was discussed with attending Dr. Ally Cool PGY2 Attending Provider Attestation/Addendum I have discussed and was present for the essential components of the history, physical examination, diagnosis, and treatment plan with the resident. I agree with the patient's care as documented by the resident and amended herein by me. Mc Canales DO. Although this document has been carefully reviewed, there may still be some phonetic and other typographical errors. These errors are purely grammatical due to imperfections in the software program and should not be construed in any way to compromise the substance of the patient's medical care during this visit.
[2024-06-30] MEDS: ATORVASTATIN CALCIUM 20 MG TABLET 40 MG GT (21:38)
[2024-07-01] VITALS (14 sets, daily range): BP systolic 128–152; BP diastolic 63–108; PULSE 71–92; RESP 19–33; TEMP 20.4–36.3; O2SAT 95–98
[2024-07-01] MEDS: VALPROIC ACID SYRUP 250 MG/5 ML UDC 500 MG GT ×3 (05:23→21:23)
[2024-07-01] MEDS: CEFEPIME INJ 2 GM in SODIUM CHLORIDE 0.9% (Popper) 50 ML IV (05:24)
[2024-07-01 06:07] LABS: Basophils # (Auto) 0.2 Thou/mm3 (0.0-0.2); Basophils % (Auto) 2 % (0-2.5); Eosinophils # (Auto) 0.3 Thou/mm3 (0.0-0.5); Eosinophils % (Auto) 3 % (0-10); Hematocrit 28.4 % (36.0-46.0); Hemoglobin 9.1 g/dL (12.0-16.0); Immature Granulocytes % (Auto) 7 % (0-0); Immature Granulocytes Auto 0.75 Thou/mm3 (0.00-0.00); Lymphocytes # (Auto) 2.3 Thou/mm3 (1.0-4.8); Lymphocytes % (Auto) 21 % (10-50); Mean Corpuscular Hemoglobin 28.7 pg (25.0-35.0); Mean Corpuscular Volume 90 fL (80-100); Monocytes # (Auto) 1.8 Thou/mm3 (0.0-0.8); Monocytes % (Auto) 16 % (0-12); Neutrophils # (Auto) 5.6 Thou/mm3 (1.8-7.7); Neutrophils % (Auto) 51 % (37-80); Nucleated Red Blood Cell % 0 /100 WBC (0); Platelet Count 272 Thou/mm3 (140-440); Red Blood Count 3.17 Miln/mm3 (4.00-5.20)
[2024-07-01] MEDS: VANCOMYCIN 25 MG/ML 125 MG GT (06:07)
[2024-07-01 06:40] LABS: Alanine Aminotransferase 10 U/L (10-49); Albumin, Serum 3.6 gm/dL (3.4-4.8); Albumin/Globulin Ratio 1.2 (1.2-2.2); Alkaline Phosphatase 67 U/L (46-116); Anion Gap 8 (7-16); Aspartate Amino Transferase 24 U/L (0-34); BUN/Creatinine Ratio 30 Ratio (12-20); Bilirubin,Total 0.2 mg/dL (0.3-1.2); Blood Urea Nitrogen 18 mg/dL (9-23); Calcium (Corrected) 9.3 mg/dL (8.5-10.1); Carbon Dioxide 33.3 mMol/L (20.0-31.0); Chloride 94 mMol/L (98-107); Creatinine (Component) 0.6 mg/dL (0.6-1.3); Estimated Creatinine Clearance 94.4 mL/min (>60); Glucose 119 mg/dL (74-106); Magnesium 2.1 mg/dL (1.6-2.6); Osmolality,Calculated 273 (275-295); Phosphorous 3.4 mg/dL (2.4-5.1); Sodium 135 mMol/L (136-145); Total Protein 6.6 gm/dL (5.7-8.2); eGFR > 60 See Note
[2024-07-01 07:17] LABS: Heparin-Induced PLT AB NEGATIVE (NEGATIVE)
[2024-07-01] MEDS: LANSOPRAZOLE 30 MG TAB.RAP.DR GT (08:53)
[2024-07-01] MEDS: LOSARTAN POTASSIUM 25 MG TABLET 50 MG GT (08:53)
[2024-07-01] MEDS: FLUCONAZOLE 100 MG TABLET 400 MG PO (08:54)
[2024-07-01] MEDS: ASPIRIN 81 MG CHEW GT (08:54)
[2024-07-01] MEDS: levETIRAcetam LIQD 500 MG/5 ML UDC 1000 MG GT ×2 (08:54→21:23)
[2024-07-01] MEDS: HEPARIN SOD INJ 5000 UNIT/ML VIAL SC ×2 (08:55→21:23)
--- NOTE | 2024-07-01 10:05 | ESPR_ITS ---
Subjective Subjective Interval history: asked to see. finished 7d abx today. repeat cxr in 4-6 weeks. not sooner unless worse clinically, here for uti with bacteremia. treated. d Exam Vital Signs Temp Pulse Resp BP Pulse Ox O2 Del Method O2 Flow Rate 96.6 F L 86 26 H 140/87 H 96 Mechanical Ventilation 7 07/01/24 08:00 07/01/24 08:53 07/01/24 08:00 07/01/24 08:53 07/01/24 08:00 07/01/24 08:00 07/01/24 08:00 FiO2 30 07/01/24 08:00 Narrative Exam see dictation Objective - Internal Medicine Labs 07/01/24 05:00 07/01/24 05:00 Labs: Laboratory Results - last 24 hr 06/28/24 07/01/24 05:15 05:00 WBC 11.0 RBC 3.17 L Hgb 9.1 L Hct 28.4 L MCV 90 MCH 28.7 MCHC 32.0 RDW Std Deviation 53.0 H Plt Count 272 Neut % (Auto) 51 Lymph % (Auto) 21 [place] % (Auto) 16 H Eos % (Auto) 3 Baso % (Auto) 2 Neut # (Auto) 5.6 Lymph # (Auto) 2.3 [place] # (Auto) 1.8 H Eos # (Auto) 0.3 Baso # (Auto) 0.2 Immature Gran # (Auto) 0.75 H Absolute Nucleated RBC 0.00 Immature Gran % 7 H Nucleated RBC % 0 Sodium 135 L Potassium 5.0 Chloride 94 L Carbon Dioxide 33.3 H Anion Gap 8 BUN 18 Creatinine 0.6 Estim Creat Clear Calc 94.4 eGFR > 60 BUN/Creatinine Ratio 30 H Glucose 119 H Calculated Osmolality 273 L Calcium 9.0 Corrected Calcium 9.3 Phosphorus 3.4 Magnesium 2.1 Total Bilirubin 0.2 L AST 24 ALT 10 Alkaline Phosphatase 67 Total Protein 6.6 Albumin 3.6 Globulin 3.0 Albumin/Globulin Ratio 1.2 Heparin-Ind Plt Ab Scrn NEGATIVE Heparin Dep Plt Ab OD 0.273 ABG Interpretation ABG results: 06/25/24 15:55 VBG pH 7.34 VBG pCO2 57 H VBG pO2 46 VBG Base Excess 4 H Assessment & Plan A&P Narrative bacteremic uti acute on chronic resp failure pos cdiff test done for uncertain reasons on flucon without pos cocci test. stopped many meds today. can return to [place]. please do not repeat cdiff as a test of cure. she may well be colonized as 5-10% of adults are pcr is overly s . rx for bacteremia and pneumonia is 7d regardless of the germ. Time Spent With Patient Time: Total time spent is greater than 50% in coordination of care (as documented) at patient's floor/unit and/or counseling patient:
--- NOTE | 2024-07-01 11:53 | PC.SS ---
Follow up note: SS spoke to [facility] in subacute and they can accept patient back tomorrow. Patient is cdiff positive and on i.v. antibiotics. Updated physician.
[2024-07-01 12:05] LABS: Hepatitis C Antibody Non Reactive (Non React)
[2024-07-01 12:20] LABS: Glucose Estimated Average 117 mg/dL (80-131); Hemoglobin A1C 5.7 % Hgb (4.8-6.0)
--- NOTE | 2024-07-01 13:50 | ESPR_ITS ---
<Statement entered by Laxmi Yoo MD - 07/01/24 14:51> Patient was seen and examined at bedside. No acute overnight events. Patient still having multiple episodes of watery diarrhea, overnight patient had about 4 BM. CBC unremarkable, WBC within normal limits, CMP within normal limits. Patient completed 7 days course of IV antibiotics for GNR bacteremia, will continue p.o. Vanco to address C. difficile treatment, patient will need total 14 days of p.o. Vanco to complete CT treatment course. Anticipate discharge tomorrow back to subacute. 1. Continue p.o. Vanco 2. Will monitor bowel movement 3. Anticipate discharge tomorrow to back to subacute I personally saw and examined the patient and discussed the assessment and plan with the entire medicine team, including my attending Dr. Canales, Laxmi Yoo M.D. PGY-2 Disclaimer: Despite multiple revisions, due to the dictation software being used, the document bellow may not be free of grammatical errors including phonetic/typographic errors. However, this does not deter from our commitment to providing health care in the patient's best interest in mind. Documentation for date of: 07/01/24 Subjective Subjective Interval history: No overnight events. Patient remained afebrile overnight. Patient continued to have watery bowel movements total of 3 overnight. Patient appears more alert and oriented compared to previous days. Patient tries to not node or blink when answering questions. Cefepime course completed. Vancomycin until 07/04/2024. Fluconazole on board for intertrigo until July 04, 2024. Possible D/C tomorrow. Exam Vital Signs Temp Pulse Resp BP Pulse Ox O2 Del Method O2 Flow Rate 97.4 F 82 28 H 128/87 H 96 Mechanical Ventilation 7 07/01/24 12:00 07/01/24 13:12 07/01/24 12:00 07/01/24 12:00 07/01/24 13:12 07/01/24 12:00 07/01/24 12:00 FiO2 30 07/01/24 13:12 Narrative Exam General Appearance: Alert & Oriented X0, Non-verbal, well-nourished female who is lying in bed in no acute distress HEENT: Skull symmetrical and atraumatic. Conjunctivae pin and moist. Pupils equal, round, reactive to light and accommodation (PERRL). External ear without lesion or discharge. Straight, nares patient, mucosa pink, no discharge. No thyroid nodule appreciated. No cervical lymphadenopathy. Cardio: Normal Rate and Rhythm with S1 and S2 heart sounds. Difficult to appreciate given body hapbitus. No bruits on carotid auscultation. No peripheral edema or cyanosis. Lungs: Symmetric with good expansion. Chest and back non-tender. Breath sounds vesicular without crackles, wheezing or rhonchi Abdomen: Non-tender, Non-distended, Normal Reactive Bowel Sounds Neuro: Alert, cooperative, oriented to person, place, and time. Non-verbal CN grossly intact. Upper and lower extremities contracted, not following commands. Objective Labs 07/01/24 05:00 07/01/24 05:00 Labs: Laboratory Results - last 24 hr 06/28/24 07/01/24 05:15 05:00 WBC 11.0 RBC 3.17 L Hgb 9.1 L Hct 28.4 L MCV 90 MCH 28.7 MCHC 32.0 RDW Std Deviation 53.0 H Plt Count 272 Neut % (Auto) 51 Lymph % (Auto) 21 Lassen % (Auto) 16 H Eos % (Auto) 3 Baso % (Auto) 2 Neut # (Auto) 5.6 Lymph # (Auto) 2.3 Lassen # (Auto) 1.8 H Eos # (Auto) 0.3 Baso # (Auto) 0.2 Immature Gran # (Auto) 0.75 H Absolute Nucleated RBC 0.00 Immature Gran % 7 H Nucleated RBC % 0 Sodium 135 L Potassium 5.0 Chloride 94 L Carbon Dioxide 33.3 H Anion Gap 8 BUN 18 Creatinine 0.6 Estim Creat Clear Calc 94.4 eGFR > 60 BUN/Creatinine Ratio 30 H Glucose [address] Glu mg/dL 117 Hemoglobin A1c 5.7 Calculated Osmolality 273 L Calcium 9.0 Corrected Calcium 9.3 Phosphorus 3.4 Magnesium 2.1 Total Bilirubin 0.2 L AST 24 ALT 10 Alkaline Phosphatase 67 Total Protein 6.6 Albumin 3.6 Globulin 3.0 Albumin/Globulin Ratio 1.2 Heparin-Ind Plt Ab Scrn NEGATIVE Heparin Dep Plt Ab OD 0.273 Hepatitis C Antibody Non Reactive ABG Interpretation ABG results: 06/25/24 15:55 VBG pH 7.34 VBG pCO2 57 H VBG pO2 46 VBG Base Excess 4 H Quality Measures Quality Measures none Advance care planning discussed with:: other Assessment & Plan Assessment Current Active Medications: Generic Name Dose Route Start Last Admin Trade Name Freq PRN Reason Stop Dose Admin Acetaminophen 650 mg 06/25/24 19:11 06/27/24 00:51 Acetaminophen Ericka 325 Mg/10 Ml Udc 07/25/24 17:02 650 mg Q6H PRN Administration pain 1-3 and fever >100.3 Aspirin 81 mg 06/28/24 09:00 07/01/24 08:54 Aspirin 81 Mg Chew GT 07/25/24 17:14 81 mg QDAY DYLAN Administration Atorvastatin Calcium 40 mg 06/26/24 21:00 06/30/24 21:38 Atorvastatin Calcium 20 Mg Tablet GT 07/26/24 20:59 40 mg HS DYLAN Administration Buspirone HCl 10 mg 06/25/24 17:12 Buspirone Hcl 5 Mg Tablet GT 07/25/24 17:11 Q8HR PRN AGITATION Dextrose 25 ml 06/25/24 17:34 Dextrose 50%-Water Inj 50 Ml Syringe IV 07/25/24 17:33 Q15MIN PRN BG 50-70 responsive npo pt Dextrose 50 ml 06/25/24 17:34 Dextrose 50%-Water Inj 50 Ml Syringe IV 07/25/24 17:33 Q15MIN PRN BG <50 OR BG <70 & pt unresponsive Docusate Sodium 100 mg 06/25/24 19:16 Docusate Sod Liqd 100 Mg/10 Ml [facility] 07/25/24 17:02 QDAY PRN CONSTIPATION Protocol Glucagon 1 mg 06/25/24 17:34 Glucagon Inj 1 Mg Vial IM Q15MIN PRN BG <70, and no IV access Heparin Sodium (Porcine) 5,000 unit 06/25/24 21:00 07/01/24 08:55 Heparin Sod Inj 5000 Unit/Ml Vial SC 07/09/24 20:59 5,000 unit Q12HR DYLAN Administration Insulin Human Lispro 0 unit 06/27/24 00:00 07/01/24 05:31 Insulin Lispro (Admelog) 1 Unit/0.01 Ml Unit SC 07/27/24 00:00 Not Given Q6HR DYLAN Protocol Labetalol HCl 10 mg 06/29/24 13:54 Labetalol Inj 5 Mg/Ml Vial 20 Ml IVP 07/29/24 13:53 Q4HR PRN Hypertension Levetiracetam 1,000 mg 06/29/24 21:00 07/01/24 08:54 Levetiracetam Liqd 500 Mg/5 Ml Udc GT 07/25/24 20:59 1,000 mg BID DYLAN Administration Losartan Potassium 50 mg 07/01/24 09:00 07/01/24 08:53 Losartan Potassium 25 Mg Tablet GT 07/31/24 08:59 50 mg QDAY DYLAN Administration Valproic Acid 500 mg 06/25/24 22:00 07/01/24 05:23 Valproic Acid Syrup 250 Mg/5 Ml [facility] [place] GT 07/25/24 21:59 500 mg TID DYLAN Administration Plan 69-year-old female with a past medical history of epilepsy, hypertension, hyperlipidemia, diabetes mellitus (no medication on board per chart review), recent history history of C. difficile requiring vancomycin who was admitted for sepsis secondary to UTI. #Clostridioides Difficlile Patient has past medical history C. diff that was treated from April-May which was treated with Vancomycin at [facility]. Per patient's sister, completed course and only 1 previous episode of C. Diff per patient's sister. Diagnostics: CT Abdomen/Pelvis: Findings most consistent with bilateral urinary tract infection and cystitis, likely vesicoureteral reflux. Cholelithiasis. Negative for toxic megacolon. Negative for obstruction C.Diff PCR: Positive Plan -C. Diff percautions -Vancomhycin oral 125 GT Q6HR (oral) 06/27/2024--07/06/2024>continue for 10 days -Consult Infectious Disease, appreciate recommendations, Dr. Gates. #Bacteremia, resolved #UTI, Klebsiella Pneumoniae, resolved. #Sepsis, secondary to UTI, Resolved #Leukocytosis, Improved. Patient presented with sepsis secondary to UTI with positive UA showing WBC of 258, positive esterase, and nitrates w/ RBC 1728. Bacteria 2+. Pneumonia can not be ruled out given mild congrestion noted on chest x-ray and upper air way sounds vs TN less likely given normal troponin levels with EKG showing Q waves in leads II, III, and AVF but no reciprocal leads thus less likely TN. Given recent history of c. diff can not be ruled out, pending c. diff pcr but will follow up with CT abdomen. WBC 23.3;ABG pH 7.38, pCO2 49, pO2 106, HCO3 29, O2 saturation 99 FIO2 30-->WBC 20.9 () down trend UA Positive for esterase, bacteria, nitrates and WBC Urine Culture Klebsiella pneumoniae Blood culture 1/2 bottles Gram Negative Rods CT head unremarkable. SOFA 4; GCS 11 Plan: -Cefepmine: (06/26/2024-07/01/2024) -Vancomycin & Zosyn X 1 ER 06/25/2024 -Vancomycin oral (06/26/2024-07/06/2024) -Ceftriaxone dc/ed 06/25/2024-06/26/2024 #Ventilator Associated Pneumonia, resolved. #Pneumonia #GNR Given recent hospitalization in May, upper airway sounds, recent antibiotic use, mechanical associated pneumonia can not be ruled out. Given sputum culture is noted to have gram negative rods, Klebsiella Pneumoniae can not be ruled out as source of infection given positive urine culture and 1/2 bottles present in blood culture w/ GNR. Other bacteria that can not be ruled out is MRSA and Enterobacter vs CAP vs viral less likely given negative flu, rsv, and COVID. Diagnostics: -Sputum Culture: Gram Negative Rods, pending final results. -Blood culture 1/2 bottles Gram Negative Rods, klebsiella pneumoniae -CT Abdomen/Pelvis: Atelectasis versus mild pneumonia left base Plan -Cefepime 2 gm IV Q8H (06/26/2024-07/01/2024), completed, -Consider repeat blood culture -monitor oxygen saturation #Diabetes Mellitus Type 2 Past medical history of diabetes mellitus type 2 but no medication on board from SNF. No sliding scale given for today. Diagnostics: A1c 5.5 w/ Fasting glucose (06/27/2004) 151 -total of 0 units given 06/28/2024 Plan -Continue to monitor fasting glucose -Sliding Lispro scale #Hypertension given soft blood pressure, holding Doxazosin and Losartan. Continue to hold home anti-hypertensive medication as BP has been <120/110. Plan -Hold home medication of Losartan 25 mg resumed. -Holding Doxazosin 1 mg tabelt via GT -Please monitor if patient is hypotensive <120 systolic -Labetolol 10 mg IV Q4HR for SBP >160 #History of Seizures Plan -Resume Levetiracetam 1000 mg GT BID dylan and Valproic Acid 500 mg GT TID -Seizure precautions -head of the bed at 30 degrees #Intertrigo #yeast infection Per home medication on Fluconazole from 06/25/2024-07/04/2024 per chart review from subacute medication list. Plan: -Fluconazole 06/25/2024-07/04/2024 #Normocytic Anemia On admission, patient presented with Hgb of 10.7, Hct 32.0 and MCV of 88 likely anemia of chronic disease, no acute intervention Diagnostics: Hgb 9.2 hct 27.6, mcv 89--> (06/28/2024) Hgb 8.8, hct 27.0, MCV 89 plan -consider iron panel, b12, and folic as outpatient #Hypoosmolar Mild Hyponatremia, improving Mild hyponatremia noted on admission w/ Na of 133 w/ osmolarity of 267, likely secondary to dilution from bolus given overnight. Diagnostics: Plan -Monitor sodium -no acute intervention #GT NPO currently, resumed #Cholelthiasis incidental finding noted on CT abdomen/Pelvis Plan -continue to monitor -no acute intervention #Mild Hyperkalemia, resolved. #lactic Acidodsis, resolved. Health Maintenance: Disp: Pt is currently admitted to floors for further management of sepsis , likely dc tomorrow if patient continues to improve. FEN:Glucerna 1.2 @ 58ml/hr x 22hrs via G tube by pump to provide: 1276ml total vol, 1531kcal, 76g protein. If no IVF, give AF 40ml/hr water x 24hrs (or per MD) DVT: on subQ heparin Code: DNR - The patient's plan was discussed with attending Dr. Canales and senior residents Dr. Naila Barreto MD PGY1 Internal Medicine Attending Provider Attestation/Addendum I have discussed and was present for the essential components of the history, physical examination, diagnosis, and treatment plan with the resident. I agree with the patient's care as documented by the resident and amended herein by me. Mc Canales DO. Patient seen and evaluated this AM. In short, 69-year-old female with significant past medical history of hypertension, DM 2, history of epilepsy, nonverbal, G-tube who presented from subacute facility subsequently admitted for sepsis possibly secondary to UTI versus C. difficile infection versus ventilator associated pneumonia. The patient has a history of C. difficile, previously treated in the last 1 to 2 months however still having multiple loose bowel movements a day. She has been having 3+ loose stools per day, earlier in admission they were being recorded however still having very loose diarrhea. Infectious disease consulted, recommending discontinuing the p.o. vancomycin however I am going to continue and complete a 10-day course. [facility] is willing to take the patient back tomorrow to complete the course which we will do. The patient also had Pseudomonas in her sputum, urine culture demonstrating Klebsiella and blood culture in the anaerobic bottle of 1 set demonstrating Klebsiella. The patient did complete a 7-day course of cefepime hence that has been discontinued. The patient was also on fluconazole as an outpatient hence we continued for a yeast infection which was prescribed from 06/25 to 07/04. Infectious disease I believe thinks we started this for coccidiomycosis however it was not. We just continue the patient's outpatient treatment. Likely discharge tomorr back to [facility] [place], the patient is much improved Although this document has been carefully reviewed, there may still be some phonetic and other typographical errors. These errors are purely grammatical due to imperfections in the software program and should not be construed in any way to compromise the substance of the patient's medical care during this visit.
[2024-07-01] MEDS: VANCOMYCIN 125 MG CAPSULE GT ×2 (17:07→21:23)
[2024-07-01] MEDS: ATORVASTATIN CALCIUM 20 MG TABLET 40 MG GT (21:23)
[2024-07-02] VITALS (13 sets, daily range): BP systolic 100–163; BP diastolic 59–97; PULSE 68–88; RESP 18–35; TEMP 35.9–36.3; O2SAT 95–98; BMI 31.6
[2024-07-02] MEDS: VALPROIC ACID SYRUP 250 MG/5 ML UDC 500 MG GT ×3 (05:00→21:00)
[2024-07-02] MEDS: VANCOMYCIN 125 MG CAPSULE GT ×4 (05:01→20:58)
[2024-07-02 05:42] LABS: Basophils # (Auto) 0.2 Thou/mm3 (0.0-0.2); Basophils % (Auto) 1 % (0-2.5); Eosinophils # (Auto) 0.4 Thou/mm3 (0.0-0.5); Eosinophils % (Auto) 2 % (0-10); Hemoglobin 9.4 g/dL (12.0-16.0); Immature Granulocytes % (Auto) 6 % (0-0); Immature Granulocytes Auto 1.18 Thou/mm3 (0.00-0.00); Lymphocytes # (Auto) 2.9 Thou/mm3 (1.0-4.8); Lymphocytes % (Auto) 16 % (10-50); Mean Corpuscular HGB Conc 32.4 g/dl (31.0-37.0); Mean Corpuscular Volume 90 fL (80-100); Monocytes # (Auto) 2.7 Thou/mm3 (0.0-0.8); Monocytes % (Auto) 15 % (0-12); Neutrophils # (Auto) 11.3 Thou/mm3 (1.8-7.7); Neutrophils % (Auto) 61 % (37-80); Nucleated Red Blood Cell # 0.02 Thou/mm3 (0.00-0.00); Nucleated Red Blood Cell % 0 /100 WBC (0); Platelet Count 318 Thou/mm3 (140-440); RDW Standard Deviation 51.6 fL (36.4-46.3); Red Blood Count 3.24 Miln/mm3 (4.00-5.20); White Blood Count 18.6 Thou/mm3 (3.6-11.0)
[2024-07-02 06:21] LABS: Alanine Aminotransferase 9 U/L (10-49); Albumin, Serum 3.8 gm/dL (3.4-4.8); Albumin/Globulin Ratio 1.3 (1.2-2.2); Alkaline Phosphatase 72 U/L (46-116); Anion Gap 8 (7-16); Aspartate Amino Transferase 20 U/L (0-34); BUN/Creatinine Ratio 37 Ratio (12-20); Bilirubin,Total 0.2 mg/dL (0.3-1.2); Blood Urea Nitrogen 22 mg/dL (9-23); Calcium 9.4 mg/dL (8.3-10.6); Calcium (Corrected) 9.6 mg/dL (8.5-10.1); Carbon Dioxide 33.7 mMol/L (20.0-31.0); Chloride 91 mMol/L (98-107); Creatinine (Component) 0.6 mg/dL (0.6-1.3); Estimated Creatinine Clearance 91.6 mL/min (>60); Glucose 125 mg/dL (74-106); Magnesium 2.1 mg/dL (1.6-2.6); Osmolality,Calculated 270 (275-295); Phosphorous 3.2 mg/dL (2.4-5.1); Sodium 133 mMol/L (136-145); Total Protein 6.8 gm/dL (5.7-8.2); eGFR > 60 See Note
--- NOTE | 2024-07-02 07:56 | ESCONSULT_ITS ---
RE: YOANDY SANDOVAL : 1955 DATE OF CONSULTATION: 07/01/2024 REFERRING PHYSICIAN: Dr. Canales. REASON FOR CONSULTATION: Sepsis, presumably urinary. HISTORY OF PRESENT ILLNESS: The patient is a 69-year-old admitted from a care home with hypertension, diabetes, and a history of seizures. The origin of her health problems is not known. She has a trach and a PEG and is fed through a G-tube. She can move her left arm but seems to have a rt hemiparesis. She has movement in her feet, but it is very limited. She does not walk. ALLERGIES: CODEINE. IMMUNIZATIONS: Unknown. FAMILY HISTORY: Unavailable. SOCIAL HISTORY: limited as from caregiver. She lives in her home, but is a nonsmoker. PHYSICAL EXAMINATION: On examination, the patient is in no distress. She has some generalized edema and peeling and some rt hemiplegia is also noted. . IMPRESSION AND PLAN: She is on fluconazole 400 mg daily and had a positive C. diff test, although not certain why it was done. She is on treatment for [place] fever, but has no positive test either, nor does she move much. The chances for her acquiring [place] fever without getting outdoors is very limited. Blood cultures are positive for Klebsiella, resistant only to Unasyn and tetracyclines and either S or I to Augmentin. The patient has been on cefepime it looks like for nearly a week, which is fine, so we should probably stop her antibiotics and get her back to the care home and she can go off all the other antimicrobials at that time including C. diff treatment and reevaluate that as the time passes. She is not having horrendous stools, nor has the oral vancomycin had affected the stooling significantly. As a result it just looks like she was over-tested. About 5% to 10% of adults will carry C. diff, so PCR is overly sensitive and usually many of the hospitals use a different tests or GDH, which is faster and could be done rapidly. Many of those people who are positive by PCR only are colonized rather than infected. As this is resolving, we will stop her oral vancomycin as well as her fluconazole. I am going to stop her cefepime as well as the other antibiotics and then I will see her again perhaps on Monday if she remains. She may return to her prior place of residence at your discretion. DT: 10:23:45 TT: 11:10:00 Ref: [id number] - TID: [id number] MTDD
[2024-07-02] MEDS: LOSARTAN POTASSIUM 25 MG TABLET 50 MG GT (09:11)
[2024-07-02] MEDS: HEPARIN SOD INJ 5000 UNIT/ML VIAL SC ×2 (09:11→21:01)
[2024-07-02] MEDS: ASPIRIN 81 MG CHEW GT (09:12)
[2024-07-02] MEDS: levETIRAcetam LIQD 500 MG/5 ML UDC 1000 MG GT ×2 (09:12→20:58)
[2024-07-02] MEDS: FLUCONAZOLE SUSP 40 MG/ML ML 400 MG GT (09:53)
--- NOTE | 2024-07-02 10:17 | CHAP ---
Patient was visited by a Spiritual Care Volunteer on 07/02/2024 between 0900 and 1015 and received comfort, encouragement and/or prayer.
--- NOTE | 2024-07-02 11:01 | PC.SS ---
Update: Plan is to monitor patient's WBC due to elevated level. Possible d/c to sub-acute today.
--- NOTE | 2024-07-02 15:10 | ESPR_ITS ---
<Statement entered by Jane Boyd MD - 07/07/24 15:12> I reviewed above note and agree with findings and plans. I have also personally examined the patient with medicine team and went over assessment and plan with medical team including materials intern and resident physician. <Statement entered by Laxmi Yoo MD - 07/02/24 15:22> Patient was seen and examined at bedside. No acute overnight events. Patient had 2 soft bowel movement, not watery, labs revealed leukocytosis with WBC of 18.6, however patient is afebrile, and clinically is improving. Will continue p.o. vancomycin, monitor for 1 more day, anticipate discharge tomorrow. I personally saw and examined the patient and discussed the assessment and plan with the entire medicine team, including my attending , Laxmi Yoo M.D. PGY-2 Disclaimer: Despite multiple revisions, due to the dictation software being used, the document bellow may not be free of grammatical errors including phonetic/typographic errors. However, this does not deter from our commitment to providing health care in the patient's best interest in mind. Documentation for date of: 07/02/24 Subjective Subjective Interval history: No overnight events reported. No pyrexia reported. 2 bowel movements overnight, soft but not watery. Leukocytosis worsened but patient's vitals have remained stable. Patient is alert, continues to be non-verbal, but this is baseline. Possible D/C tomorrow. Exam Vital Signs Temp Pulse Resp BP Pulse Ox O2 Del Method O2 Flow Rate 96.6 F L 83 24 H 154/85 H 98 Mechanical Ventilation 7 07/02/24 11:46 07/02/24 12:48 07/02/24 11:46 07/02/24 11:46 07/02/24 12:48 07/02/24 11:46 07/02/24 11:46 FiO2 30 07/02/24 12:48 Narrative Exam General Appearance: Alert & Oriented X0, Non-verbal, well-nourished female who is lying in bed in no acute distress HEENT: Skull symmetrical and atraumatic. Conjunctivae pin and moist. Pupils equal, round, reactive to light and accommodation (PERRL). External ear without lesion or discharge. Straight, nares patient, mucosa pink, no discharge. No thyroid nodule appreciated. No cervical lymphadenopathy. Cardio: Normal Rate and Rhythm with S1 and S2 heart sounds. Difficult to appreciate given body hapbitus. No bruits on carotid auscultation. No peripheral edema or cyanosis. Lungs: Symmetric with good expansion. Chest and back non-tender. Breath sounds vesicular without crackles, wheezing or rhonchi Abdomen: Non-tender, Non-distended, Normal Reactive Bowel Sounds Neuro: Alert, cooperative, oriented to person, place, and time. Non-verbal CN grossly intact. Upper and lower extremities contracted, not following commands. Objective Labs 07/02/24 04:39 07/02/24 04:39 Labs: Laboratory Results - last 24 hr 07/02/24 04:39 WBC 18.6 H D RBC 3.24 L Hgb 9.4 L Hct 29.0 L MCV 90 MCH 29.0 MCHC 32.4 RDW Std Deviation 51.6 H Plt Count 318 D Neut % (Auto) 61 Lymph % (Auto) 16 [place] % (Auto) 15 H Eos % (Auto) 2 Baso % (Auto) 1 Neut # (Auto) 11.3 H Lymph # (Auto) 2.9 [place] # (Auto) 2.7 H Eos # (Auto) 0.4 Baso # (Auto) 0.2 Immature Gran # (Auto) 1.18 H Absolute Nucleated RBC 0.02 H Immature Gran % 6 H Nucleated RBC % 0 Sodium 133 L Potassium 5.0 Chloride 91 L Carbon Dioxide 33.7 H Anion Gap 8 BUN 22 Creatinine 0.6 Estim Creat Clear Calc 91.6 eGFR > 60 BUN/Creatinine Ratio 37 H Glucose 125 H Calculated Osmolality 270 L Calcium 9.4 Corrected Calcium 9.6 Phosphorus 3.2 Magnesium 2.1 Total Bilirubin 0.2 L AST 20 ALT 9 L Alkaline Phosphatase 72 Total Protein 6.8 Albumin 3.8 Globulin 3.0 Albumin/Globulin Ratio 1.3 ABG Interpretation ABG results: 06/25/24 15:55 VBG pH 7.34 VBG pCO2 57 H VBG pO2 46 VBG Base Excess 4 H Quality Measures Quality Measures none Advance care planning discussed with:: other Assessment & Plan Assessment Current Active Medications: Generic Name Dose Route Start Last Admin Trade Name Freq PRN Reason Stop Dose Admin Acetaminophen 650 mg 07/02/24 07:48 Acetaminophen Ericka 325 Mg/10 Ml Udc GT 07/25/24 17:02 Q6H PRN PAIN 1-3,fever >100.3 Aspirin 81 mg 06/28/24 09:00 07/02/24 09:12 Aspirin 81 Mg Chew GT 07/25/24 17:14 81 mg QDAY DYLAN Administration Atorvastatin Calcium 40 mg 06/26/24 21:00 07/01/24 21:23 Atorvastatin Calcium 20 Mg Tablet GT 07/26/24 20:59 40 mg HS DYLAN Administration Buspirone HCl 10 mg 06/25/24 17:12 Buspirone Hcl 5 Mg Tablet GT 07/25/24 17:11 Q8HR PRN AGITATION Dextrose 25 ml 06/25/24 17:34 Dextrose 50%-Water Inj 50 Ml Syringe IV 07/25/24 17:33 Q15MIN PRN BG 50-70 responsive npo pt Dextrose 50 ml 06/25/24 17:34 Dextrose 50%-Water Inj 50 Ml Syringe IV 07/25/24 17:33 Q15MIN PRN BG <50 OR BG <70 & pt unresponsive Docusate Sodium 100 mg 06/25/24 19:16 Docusate Sod Liqd 100 Mg/10 Ml Udc GT 07/25/24 17:02 QDAY PRN CONSTIPATION Protocol Fluconazole 400 mg 07/02/24 10:00 07/02/24 09:53 Fluconazole Susp 40 Mg/Ml Ml GT 07/09/24 09:59 400 mg QDAY DYLAN Administration Glucagon 1 mg 06/25/24 17:34 Glucagon Inj 1 Mg Vial IM Q15MIN PRN BG <70, and no IV access Heparin Sodium (Porcine) 5,000 unit 06/25/24 21:00 07/02/24 09:11 Heparin Sod Inj 5000 Unit/Ml Vial SC 07/09/24 20:59 5,000 unit Q12HR DYLAN Administration Insulin Human Lispro 0 unit 06/27/24 00:00 07/02/24 11:59 Insulin Lispro (Admelog) 1 Unit/0.01 Ml Unit SC 07/27/24 00:00 Not Given Q6HR DYLAN Protocol Labetalol HCl 10 mg 06/29/24 13:54 Labetalol Inj 5 Mg/Ml Vial 20 Ml IVP 07/29/24 13:53 Q4HR PRN Hypertension Levetiracetam 1,000 mg 06/29/24 21:00 07/02/24 09:12 Levetiracetam Liqd 500 Mg/5 Ml Udc GT 07/25/24 20:59 1,000 mg BID DYLAN Administration Losartan Potassium 50 mg 07/01/24 09:00 07/02/24 09:11 Losartan Potassium 25 Mg Tablet GT 07/31/24 08:59 50 mg QDAY DYLAN Administration Valproic Acid 500 mg 06/25/24 22:00 07/02/24 14:49 Valproic Acid Syrup 250 Mg/5 Ml Udc GT 07/25/24 21:59 500 mg TID DYLAN Administration Vancomycin HCl 125 mg 07/01/24 17:00 07/02/24 11:57 Vancomycin 125 Mg Capsule GT 07/06/24 21:30 125 mg QID DYLAN Administration Plan 69-year-old female with a past medical history of epilepsy, hypertension, hyperlipidemia, diabetes mellitus (no medication on board per chart review), recent history history of C. difficile requiring vancomycin who was admitted for sepsis secondary to UTI. #Clostridioides Difficlile, improving #Leukocytosis, worsened. Patient has past medical history C. diff that was treated from April-May which was treated with Vancomycin at [facility]. Per patient's sister, completed course and only 1 previous episode of C. Diff per patient's sister. Diagnostics: CT Abdomen/Pelvis: Findings most consistent with bilateral urinary tract infection and cystitis, likely vesicoureteral reflux. Cholelithiasis. Negative for toxic megacolon. Negative for obstruction C.Diff PCR: Positive Plan -C. Diff percautions -Vancomhycin oral 125 GT Q6HR (oral) 06/27/2024--07/06/2024>continue for 10 days -Consult Infectious Disease, appreciate recommendations, Dr. Gates. #Bacteremia, resolved #UTI, Klebsiella Pneumoniae, resolved. #Sepsis, secondary to UTI, Resolved Patient presented with sepsis secondary to UTI with positive UA showing WBC of 258, positive esterase, and nitrates w/ RBC 1728. Bacteria 2+. Pneumonia can not be ruled out given mild congrestion noted on chest x-ray and upper air way sounds vs [place] less likely given normal troponin levels with EKG showing Q waves in leads II, III, and AVF but no reciprocal leads thus less likely [place]. Given recent history of c. diff can not be ruled out, pending c. diff pcr but will follow up with CT abdomen. WBC 23.3;ABG pH 7.38, pCO2 49, pO2 106, HCO3 29, O2 saturation 99 FIO2 30-->WBC 20.9 () down trend UA Positive for esterase, bacteria, nitrates and WBC Urine Culture Klebsiella pneumoniae Blood culture 1/2 bottles Gram Negative Rods CT head unremarkable. SOFA 4; GCS 11 Plan: -Vancomycin oral (06/26/2024-07/06/2024) -Cefepmine: (06/26/2024-07/01/2024) -Vancomycin & Zosyn X 1 ER 06/25/2024 -Ceftriaxone dc/ed 06/25/2024-06/26/2024 #Ventilator Associated Pneumonia, resolved. #Pneumonia #GNR Given recent hospitalization in May, upper airway sounds, recent antibiotic use, mechanical associated pneumonia can not be ruled out. Given sputum culture is noted to have gram negative rods, Klebsiella Pneumoniae can not be ruled out as source of infection given positive urine culture and 1/2 bottles present in blood culture w/ GNR. Other bacteria that can not be ruled out is MRSA and Enterobacter vs CAP vs viral less likely given negative flu, rsv, and COVID. Diagnostics: -Sputum Culture: Gram Negative Rods, pending final results. -Blood culture 1/2 bottles Gram Negative Rods, klebsiella pneumoniae -CT Abdomen/Pelvis: Atelectasis versus mild pneumonia left base Plan -Cefepime 2 gm IV Q8H (06/26/2024-07/01/2024), completed, -Consider repeat blood culture -monitor oxygen saturation #Diabetes Mellitus Type 2 Past medical history of diabetes mellitus type 2 but no medication on board from SNF. No sliding scale given for today. Diagnostics: A1c 5.5 w/ Fasting glucose (06/27/2004) 151 -total of 0 units given 06/28/2024 Plan -Continue to monitor fasting glucose -Sliding Lispro scale #Hypertension given soft blood pressure, holding Doxazosin and Losartan. Continue to hold home anti-hypertensive medication as BP has been <120/110. Plan -Resume home medication of Losartan 25 mg resumed. -Holding Doxazosin 1 mg tabelt via GT -Please monitor if patient is hypotensive <120 systolic -Labetolol 10 mg IV Q4HR for SBP >160 #History of Seizures Plan -Resume Levetiracetam 1000 mg GT BID dylan and Valproic Acid 500 mg GT TID -Seizure precautions -head of the bed at 30 degrees #Intertrigo #yeast infection Per home medication on Fluconazole from 06/25/2024-07/04/2024 per chart review from subacute medication list. Plan: -Fluconazole 06/25/2024-07/04/2024 #Normocytic Anemia, stable On admission, patient presented with Hgb of 10.7, Hct 32.0 and MCV of 88 likely anemia of chronic disease, no acute intervention Diagnostics: Hgb 9.2 hct 27.6, mcv 89--> (06/28/2024) Hgb 8.8, hct 27.0, MCV 89 plan -consider iron panel, b12, and folic as outpatient #Hypoosmolar Mild Hyponatremia, improving Mild hyponatremia noted on admission w/ Na of 133 w/ osmolarity of 267, likely secondary to dilution from bolus given overnight. Diagnostics: Plan -Monitor sodium -no acute intervention #GT NPO currently, resumed #Cholelthiasis incidental finding noted on CT abdomen/Pelvis Plan -continue to monitor -no acute intervention #Mild Hyperkalemia, resolved. #lactic Acidodsis, resolved. Health Maintenance: Disp: Pt is currently admitted to floors for further management of sepsis , likely dc tomorrow if patient continues to improve. FEN:Glucerna 1.2 @ 58ml/hr x 22hrs via G tube by pump to provide: 1276ml total vol, 1531kcal, 76g protein. If no IVF, give AF 40ml/hr water x 24hrs (or per MD) DVT: on subQ heparin Code: DNR - The patient's plan was discussed with attending Dr. Boyd and senior residents Dr. Naila Barreto MD PGY1 Internal Medicine
[2024-07-02] MEDS: ATORVASTATIN CALCIUM 20 MG TABLET 40 MG GT (20:58)
[2024-07-03] VITALS (10 sets, daily range): BP systolic 104–136; BP diastolic 61–74; PULSE 74–87; RESP 17–34; TEMP 35.9–36.6; O2SAT 95–98; BMI 31.9
[2024-07-03] MEDS: VALPROIC ACID SYRUP 250 MG/5 ML UDC 500 MG GT ×3 (05:31→21:03)
[2024-07-03] MEDS: VANCOMYCIN 125 MG CAPSULE GT ×4 (05:31→20:57)
[2024-07-03 05:56] LABS: Basophils # (Auto) 0.1 Thou/mm3 (0.0-0.2); Basophils % (Auto) 1 % (0-2.5); Eosinophils # (Auto) 0.5 Thou/mm3 (0.0-0.5); Eosinophils % (Auto) 3 % (0-10); Hematocrit 28.7 % (36.0-46.0); Hemoglobin 9.1 g/dL (12.0-16.0); Immature Granulocytes % (Auto) 17 % (0-0); Immature Granulocytes Auto 3.13 Thou/mm3 (0.00-0.00); Lymphocytes # (Auto) 3.5 Thou/mm3 (1.0-4.8); Lymphocytes % (Auto) 19 % (10-50); Mean Corpuscular HGB Conc 31.7 g/dl (31.0-37.0); Mean Corpuscular Hemoglobin 29.3 pg (25.0-35.0); Mean Corpuscular Volume 92 fL (80-100); Monocytes # (Auto) 2.4 Thou/mm3 (0.0-0.8); Monocytes % (Auto) 13 % (0-12); Neutrophils # (Auto) 8.8 Thou/mm3 (1.8-7.7); Neutrophils % (Auto) 48 % (37-80); Nucleated Red Blood Cell % 0 /100 WBC (0); Platelet Count 271 Thou/mm3 (140-440); RDW Standard Deviation 54.4 fL (36.4-46.3); Red Blood Count 3.11 Miln/mm3 (4.00-5.20); White Blood Count 18.4 Thou/mm3 (3.6-11.0)
[2024-07-03 06:31] LABS: Alanine Aminotransferase < 7 U/L (10-49); Albumin, Serum 3.7 gm/dL (3.4-4.8); Albumin/Globulin Ratio 1.3 (1.2-2.2); Alkaline Phosphatase 69 U/L (46-116); Anion Gap 6 (7-16); Aspartate Amino Transferase 21 U/L (0-34); BUN/Creatinine Ratio 48 Ratio (12-20); Bilirubin,Total 0.2 mg/dL (0.3-1.2); Blood Urea Nitrogen 29 mg/dL (9-23); Calcium 9.2 mg/dL (8.3-10.6); Calcium (Corrected) 9.4 mg/dL (8.5-10.1); Carbon Dioxide 36.1 mMol/L (20.0-31.0); Chloride 92 mMol/L (98-107); Creatinine (Component) 0.6 mg/dL (0.6-1.3); Estimated Creatinine Clearance 91.9 mL/min (>60); Globulin 2.9 gm/dL (2.3-3.5); Glucose 120 mg/dL (74-106); Magnesium 2.2 mg/dL (1.6-2.6); Osmolality,Calculated 275 (275-295); Phosphorous 3.6 mg/dL (2.4-5.1); Potassium 5.1 mMol/L (3.4-5.1); Sodium 134 mMol/L (136-145); Total Protein 6.6 gm/dL (5.7-8.2); eGFR > 60 See Note
[2024-07-03 07:56] LABS: C-Reactive Protein 4.7 mg/dL (0.0-0.9)
[2024-07-03] MEDS: ASPIRIN 81 MG CHEW GT (09:43)
[2024-07-03] MEDS: HEPARIN SOD INJ 5000 UNIT/ML VIAL SC ×2 (09:43→20:57)
[2024-07-03] MEDS: FLUCONAZOLE SUSP 40 MG/ML ML 400 MG GT (09:43)
[2024-07-03] MEDS: levETIRAcetam LIQD 500 MG/5 ML UDC 1000 MG GT ×2 (09:44→20:57)
--- NOTE | 2024-07-03 11:15 | PC.SS ---
Update: Patient is possible d/c today. Plan is for the patient to return to Sub-Acute unit.
--- NOTE | 2024-07-03 13:13 | ESPR_ITS ---
<Statement entered by Jane Boyd MD - 07/11/24 07:26> I reviewed above note and agree with findings and plans. I have also personally examined the patient with medicine team and went over assessment and plan with medical team including multicultural internship and resident physician. <Statement entered by Laxmi Yoo MD - 07/03/24 15:29> No acute overnight events. WBC remained elevated 18.4, however patient had only 2 soft bowel movement, not watery. Overall clinically patient is appears to be improving. Blood pressure was running on the lower side, also CMP revealed borderline hyperkalemia, 5.1, losartan was held. Will continue p.o. vancomycin, continue monitor bowel movement, and if patient is hemodynamically stable she will be discharged tomorrow. I personally saw and examined the patient and discussed the assessment and plan with the entire medicine team, including my attending , Laxmi Yoo M.D. PGY-2 Disclaimer: Despite multiple revisions, due to the dictation software being used, the document bellow may not be free of grammatical errors including phonetic/typographic errors. However, this does not deter from our commitment to providing health care in the patient's best interest in mind. Documentation for date of: 07/03/24 Subjective Subjective Interval history: No overnight events reported. No diarrhea reported overnight, 2 soft stools noted. Patient continues to appear alert. WBC did increase at 18.4. Continue Vanco oral to complete course. Exam Vital Signs Temp Pulse Resp BP Pulse Ox O2 Del Method O2 Flow Rate 97.0 F 83 20 104/63 97 Mechanical Ventilation 7 07/03/24 08:00 07/03/24 08:09 07/03/24 08:00 07/03/24 08:00 07/03/24 08:09 07/03/24 08:00 07/03/24 08:00 FiO2 30 07/03/24 08:09 Narrative Exam General Appearance: Alert & Oriented X0, Non-verbal, well-nourished female who is lying in bed in no acute distress HEENT: Skull symmetrical and atraumatic. Conjunctivae pin and moist. Pupils equal, round, reactive to light and accommodation (PERRL). External ear without lesion or discharge. Straight, nares patient, mucosa pink, no discharge. No thyroid nodule appreciated. No cervical lymphadenopathy. Cardio: Normal Rate and Rhythm with S1 and S2 heart sounds. Difficult to appreciate given body hapbitus. No bruits on carotid auscultation. No peripheral edema or cyanosis. Lungs: Symmetric with good expansion. Chest and back non-tender. Breath sounds vesicular without crackles, wheezing or rhonchi Abdomen: Non-tender, Non-distended, Normal Reactive Bowel Sounds Neuro: Alert, cooperative, oriented to person, place, and time. Non-verbal CN grossly intact. Upper and lower extremities contracted, not following commands. Objective Labs 07/03/24 05:17 07/03/24 05:17 Labs: Laboratory Results - last 24 hr 07/03/24 05:17 WBC 18.4 H RBC 3.11 L Hgb 9.1 L Hct 28.7 L MCV 92 MCH 29.3 MCHC 31.7 RDW Std Deviation 54.4 H Plt Count 271 D Neut % (Auto) 48 Lymph % (Auto) 19 [place] % (Auto) 13 H Eos % (Auto) 3 Baso % (Auto) 1 Neut # (Auto) 8.8 H Lymph # (Auto) 3.5 [place] # (Auto) 2.4 H Eos # (Auto) 0.5 Baso # (Auto) 0.1 Immature Gran # (Auto) 3.13 H Absolute Nucleated RBC 0.00 Immature Gran % 17 H Nucleated RBC % 0 Sodium 134 L Potassium 5.1 Chloride 92 L Carbon Dioxide 36.1 H Anion Gap 6 L BUN 29 H Creatinine 0.6 Estim Creat Clear Calc 91.9 eGFR > 60 BUN/Creatinine Ratio 48 H Glucose 120 H Calculated Osmolality 275 Calcium 9.2 Corrected Calcium 9.4 Phosphorus 3.6 Magnesium 2.2 Total Bilirubin 0.2 L AST 21 ALT < 7 L Alkaline Phosphatase 69 C-Reactive Prot, Quant 4.7 H Total Protein 6.6 Albumin 3.7 Globulin 2.9 Albumin/Globulin Ratio 1.3 ABG Interpretation ABG results: 06/25/24 15:55 VBG pH 7.34 VBG pCO2 57 H VBG pO2 46 VBG Base Excess 4 H Quality Measures Quality Measures none Advance care planning discussed with:: patient Assessment & Plan Assessment Current Active Medications: Generic Name Dose Route Start Last Admin Trade Name Freq PRN Reason Stop Dose Admin Acetaminophen 650 mg 07/02/24 07:48 Acetaminophen Ericka 325 Mg/10 Ml Udc GT 07/25/24 17:02 Q6H PRN PAIN 1-3,fever >100.3 Aspirin 81 mg 06/28/24 09:00 07/03/24 09:43 Aspirin 81 Mg Chew GT 07/25/24 17:14 81 mg QDAY DYLAN Administration Atorvastatin Calcium 40 mg 06/26/24 21:00 07/02/24 20:58 Atorvastatin Calcium 20 Mg Tablet GT 07/26/24 20:59 40 mg HS DYLAN Administration Buspirone HCl 10 mg 06/25/24 17:12 Buspirone Hcl 5 Mg Tablet GT 07/25/24 17:11 Q8HR PRN AGITATION Dextrose 25 ml 06/25/24 17:34 Dextrose 50%-Water Inj 50 Ml Syringe IV 07/25/24 17:33 Q15MIN PRN BG 50-70 responsive npo pt Dextrose 50 ml 06/25/24 17:34 Dextrose 50%-Water Inj 50 Ml Syringe IV 07/25/24 17:33 Q15MIN PRN BG <50 OR BG <70 & pt unresponsive Docusate Sodium 100 mg 06/25/24 19:16 Docusate Sod Liqd 100 Mg/10 Ml Udc 07/25/24 17:02 QDAY PRN CONSTIPATION Protocol Fluconazole 400 mg 07/02/24 10:00 07/03/24 09:43 Fluconazole Susp 40 Mg/Ml Ml 07/09/24 09:59 400 mg QDAY DYLAN Administration Glucagon 1 mg 06/25/24 17:34 Glucagon Inj 1 Mg Vial IM Q15MIN PRN BG <70, and no IV access Heparin Sodium (Porcine) 5,000 unit 06/25/24 21:00 07/03/24 09:43 Heparin Sod Inj 5000 Unit/Ml Vial SC 07/09/24 20:59 5,000 unit Q12HR DYLAN Administration Insulin Human Lispro 0 unit 06/27/24 00:00 07/03/24 12:28 Insulin Lispro (Admelog) 1 Unit/0.01 Ml Unit SC 07/27/24 00:00 Not Given Q6HR DYLAN Protocol Labetalol HCl 10 mg 06/29/24 13:54 Labetalol Inj 5 Mg/Ml Vial 20 Ml IVP 07/29/24 13:53 Q4HR PRN Hypertension Levetiracetam 1,000 mg 06/29/24 21:00 04/09/25 09:44 Levetiracetam Liqd 500 Mg/5 Ml Udc GT 07/25/24 20:59 1,000 mg BID DYLAN Administration Valproic Acid 500 mg 06/25/24 22:00 07/03/24 05:31 Valproic Acid Syrup 250 Mg/5 Ml Udc GT 07/25/24 21:59 500 mg TID DYLAN Administration Vancomycin HCl 125 mg 07/01/24 17:00 07/03/24 12:04 Vancomycin 125 Mg Capsule GT 07/06/24 21:30 125 mg QID DYLAN Administration Plan 69-year-old female with a past medical history of epilepsy, hypertension, hyperlipidemia, diabetes mellitus (no medication on board per chart review), recent history history of C. difficile requiring vancomycin who was admitted for sepsis secondary to UTI. #Clostridioides Difficlile, improving #Leukocytosis, worsened. Patient has past medical history C. diff that was treated from April-May which was treated with Vancomycin at [facility]. Per patient's sister, completed course and only 1 previous episode of C. Diff per patient's sister. Diagnostics: CT Abdomen/Pelvis: Findings most consistent with bilateral urinary tract infection and cystitis, likely vesicoureteral reflux. Cholelithiasis. Negative for toxic megacolon. Negative for obstruction C.Diff PCR: Positive Plan -C. Diff percautions -Vancomhycin oral 125 GT Q6HR (oral) 06/27/2024--07/06/2024>continue for 10 days -Consult Infectious Disease, appreciate recommendations, Dr. Gates. #Bacteremia, resolved #UTI, Klebsiella Pneumoniae, resolved. #Sepsis, secondary to UTI, Resolved Patient presented with sepsis secondary to UTI with positive UA showing WBC of 258, positive esterase, and nitrates w/ RBC 1728. Bacteria 2+. Pneumonia can not be ruled out given mild congrestion noted on chest x-ray and upper air way sounds vs [place] less likely given normal troponin levels with EKG showing Q waves in leads II, III, and AVF but no reciprocal leads thus less likely [place]. Given recent history of c. diff can not be ruled out, pending c. diff pcr but will follow up with CT abdomen. WBC 23.3;ABG pH 7.38, pCO2 49, pO2 106, HCO3 29, O2 saturation 99 FIO2 30-->WBC 20.9 () down trend UA Positive for esterase, bacteria, nitrates and WBC Urine Culture Klebsiella pneumoniae Blood culture 1/2 bottles Gram Negative Rods CT head unremarkable. SOFA 4; GCS 11 Plan: -Vancomycin oral (06/26/2024-07/06/2024) -Cefepmine: (06/26/2024-07/01/2024) -Vancomycin & Zosyn X 1 ER 06/25/2024 -Ceftriaxone dc/ed 06/25/2024-06/26/2024 #Ventilator Associated Pneumonia, resolved. #Pneumonia #GNR Given recent hospitalization in May, upper airway sounds, recent antibiotic use, mechanical associated pneumonia can not be ruled out. Given sputum culture is noted to have gram negative rods, Klebsiella Pneumoniae can not be ruled out as source of infection given positive urine culture and 1/2 bottles present in blood culture w/ GNR. Other bacteria that can not be ruled out is MRSA and Enterobacter vs CAP vs viral less likely given negative flu, rsv, and COVID. Diagnostics: -Sputum Culture: Gram Negative Rods, pending final results. -Blood culture 1/2 bottles Gram Negative Rods, klebsiella pneumoniae -CT Abdomen/Pelvis: Atelectasis versus mild pneumonia left base Plan -Cefepime 2 gm IV Q8H (06/26/2024-07/01/2024), completed, -Consider repeat blood culture -monitor oxygen saturation #Diabetes Mellitus Type 2 Past medical history of diabetes mellitus type 2 but no medication on board from SNF. No sliding scale given for today. Diagnostics: A1c 5.5 w/ Fasting glucose (06/27/2004) 151 -total of 0 units given 06/28/2024 Plan -Continue to monitor fasting glucose -Sliding Lispro scale #Hypertension given soft blood pressure, holding Doxazosin and Losartan. Continue to hold home anti-hypertensive medication as BP has been <120/110. Plan -Resume home medication of Losartan 25 mg resumed. -Holding Doxazosin 1 mg tabelt via GT -Please monitor if patient is hypotensive <120 systolic -Labetolol 10 mg IV Q4HR for SBP >160 #History of Seizures Plan -Resume Levetiracetam 1000 mg GT BID dylan and Valproic Acid 500 mg GT TID -Seizure precautions -head of the bed at 30 degrees #Intertrigo #yeast infection Per home medication on Fluconazole from 06/25/2024-07/04/2024 per chart review from subacute medication list. Plan: -Fluconazole 06/25/2024-07/04/2024, per SNF #Normocytic Anemia, stable On admission, patient presented with Hgb of 10.7, Hct 32.0 and MCV of 88 likely anemia of chronic disease, no acute intervention Diagnostics: Hgb 9.2 hct 27.6, mcv 89--> (06/28/2024) Hgb 8.8, hct 27.0, MCV 89 plan -consider iron panel, b12, and folic as outpatient #Hypoosmolar Mild Hyponatremia, improving Mild hyponatremia noted on admission w/ Na of 133 w/ osmolarity of 267, likely secondary to dilution from bolus given overnight. Diagnostics: Plan -Monitor sodium -no acute intervention #GT GT resumed. #Cholelthiasis incidental finding noted on CT abdomen/Pelvis Plan -continue to monitor -no acute intervention #Mild Hyperkalemia, resolved. #lactic Acidodsis, resolved. Health Maintenance: Disp: Pt is currently admitted to floors for further management of sepsis , likely dc tomorrow if patient continues to improve. FEN:Glucerna 1.2 @ 58ml/hr x 22hrs via G tube by pump to provide: 1276ml total vol, 1531kcal, 76g protein. If no IVF, give AF 40ml/hr water x 24hrs (or per MD) DVT: on subQ heparin Code: DNR - The patient's plan was discussed with attending Dr. Boyd and senior residents Dr. Naila Barreto MD PGY1 Internal Medicine
[2024-07-03 14:30] LABS: Influenza A Ag Negative; Influenza B Ag Negative
--- NOTE | 2024-07-03 14:47 | PC.SS ---
Rounding Note: WBC down trending. Plan is to discharge patient to sub-acute tomorrow.
[2024-07-03 15:01] LABS: Path Review Blood Smear Sent to Pathologist
--- NOTE | 2024-07-03 16:15 | PD.IDPROG ---
Subjective Subjective Interval history: finished abx for urine issue. primary team really wanted the cdiff rx and the antifungal rx. so that is their choice. Exam Vital Signs Temp Pulse Resp BP Pulse Ox O2 Del Method O2 Flow Rate 97.1 F 84 29 H 136/69 H 95 Mechanical Ventilation 7 07/03/24 12:00 07/03/24 13:26 07/03/24 12:00 07/03/24 12:00 07/03/24 13:26 07/03/24 12:00 07/03/24 12:00 FiO2 30 07/03/24 13:26 Narrative Exam sleeping. has trach. Objective - Internal Medicine Labs 07/03/24 05:17 07/03/24 05:17 Labs: Laboratory Results - last 24 hr 07/03/24 07/03/24 05:17 12:50 WBC 18.4 H RBC 3.11 L Hgb 9.1 L Hct 28.7 L MCV 92 MCH 29.3 MCHC 31.7 RDW Std Deviation 54.4 H Plt Count 271 D Neut % (Auto) 48 Lymph % (Auto) 19 [place] % (Auto) 13 H Eos % (Auto) 3 Baso % (Auto) 1 Neut # (Auto) 8.8 H Lymph # (Auto) 3.5 [place] # (Auto) 2.4 H Eos # (Auto) 0.5 Baso # (Auto) 0.1 Immature Gran # (Auto) 3.13 H Absolute Nucleated RBC 0.00 Immature Gran % 17 H Nucleated RBC % 0 Smear Path Review Sent to Pathologist Sodium 134 L Potassium 5.1 Chloride 92 L Carbon Dioxide 36.1 H Anion Gap 6 L BUN 29 H Creatinine 0.6 Estim Creat Clear Calc 91.9 eGFR > 60 BUN/Creatinine Ratio 48 H Glucose 120 H Calculated Osmolality 275 Calcium 9.2 Corrected Calcium 9.4 Phosphorus 3.6 Magnesium 2.2 Total Bilirubin 0.2 L AST 21 ALT < 7 L Alkaline Phosphatase 69 C-Reactive Prot, Quant 4.7 H Total Protein 6.6 Albumin 3.7 Globulin 2.9 Albumin/Globulin Ratio 1.3 Influenza A (Rapid) Negative Influenza B (Rapid) Negative ABG Interpretation ABG results: 06/25/24 15:55 VBG pH 7.34 VBG pCO2 57 H VBG pO2 46 VBG Base Excess 4 H Assessment & Plan A&P Narrative bacteremic uti acute on chronic resp failure pos cdiff test done for uncertain reasons on flucon without pos cocci test. can return to [place]. please do not repeat cdiff as a test of cure. she may well be colonized as 5-10% of adults are pcr is overly s . rx for bacteremia and pneumonia is 7d regardless of the germ. will see again prn Time Spent With Patient Time: Total time spent is greater than 50% in coordination of care (as documented) at patient's floor/unit and/or counseling patient:
[2024-07-03] MEDS: ATORVASTATIN CALCIUM 20 MG TABLET 40 MG GT (20:57)
[2024-07-04] VITALS (12 sets, daily range): BP systolic 96–140; BP diastolic 52–79; PULSE 76–120; RESP 20–35; TEMP 36–36.6; O2SAT 95–98; BMI 31.8
[2024-07-04] MEDS: VALPROIC ACID SYRUP 250 MG/5 ML UDC 500 MG GT ×3 (05:36→21:20)
[2024-07-04] MEDS: VANCOMYCIN 125 MG CAPSULE GT ×4 (05:36→21:21)
[2024-07-04 05:45] LABS: Basophils # (Auto) 0.1 Thou/mm3 (0.0-0.2); Basophils % (Auto) 0 % (0-2.5); Eosinophils # (Auto) 0.6 Thou/mm3 (0.0-0.5); Eosinophils % (Auto) 4 % (0-10); Hematocrit 26.7 % (36.0-46.0); Immature Granulocytes % (Auto) 19 % (0-0); Immature Granulocytes Auto 3.01 Thou/mm3 (0.00-0.00); Lymphocytes # (Auto) 2.6 Thou/mm3 (1.0-4.8); Lymphocytes % (Auto) 17 % (10-50); Mean Corpuscular HGB Conc 32.6 g/dl (31.0-37.0); Mean Corpuscular Hemoglobin 29.1 pg (25.0-35.0); Mean Corpuscular Volume 89 fL (80-100); Monocytes # (Auto) 2.4 Thou/mm3 (0.0-0.8); Monocytes % (Auto) 15 % (0-12); Neutrophils % (Auto) 45 % (37-80); Nucleated Red Blood Cell # 0.02 Thou/mm3 (0.00-0.00); Nucleated Red Blood Cell % 0 /100 WBC (0); Platelet Count 373 Thou/mm3 (140-440); RDW Standard Deviation 52.7 fL (36.4-46.3); Red Blood Count 2.99 Miln/mm3 (4.00-5.20); White Blood Count 15.7 Thou/mm3 (3.6-11.0)
[2024-07-04 05:48] LABS: Hemoglobin 8.7 g/dL (12.0-16.0)
[2024-07-04 06:34] LABS: Alanine Aminotransferase < 7 U/L (10-49); Albumin, Serum 3.6 gm/dL (3.4-4.8); Albumin/Globulin Ratio 1.2 (1.2-2.2); Alkaline Phosphatase 66 U/L (46-116); Anion Gap 7 (7-16); Aspartate Amino Transferase 21 U/L (0-34); BUN/Creatinine Ratio 55 Ratio (12-20); Bilirubin,Total 0.2 mg/dL (0.3-1.2); Blood Urea Nitrogen 33 mg/dL (9-23); Calcium 9.3 mg/dL (8.3-10.6); Calcium (Corrected) 9.6 mg/dL (8.5-10.1); Carbon Dioxide 34.1 mMol/L (20.0-31.0); Chloride 93 mMol/L (98-107); Creatinine (Component) 0.6 mg/dL (0.6-1.3); Estimated Creatinine Clearance 91.8 mL/min (>60); Globulin 2.9 gm/dL (2.3-3.5); Glucose 133 mg/dL (74-106); Magnesium 2.2 mg/dL (1.6-2.6); Osmolality,Calculated 277 (275-295); Phosphorous 3.6 mg/dL (2.4-5.1); Sodium 134 mMol/L (136-145); Total Protein 6.5 gm/dL (5.7-8.2); eGFR > 60 See Note
[2024-07-04] MEDS: levETIRAcetam LIQD 500 MG/5 ML UDC 1000 MG GT ×2 (08:00→21:20)
[2024-07-04] MEDS: HEPARIN SOD INJ 5000 UNIT/ML VIAL SC ×2 (08:00→21:20)
[2024-07-04] MEDS: ASPIRIN 81 MG CHEW GT (08:00)
[2024-07-04] MEDS: FLUCONAZOLE SUSP 40 MG/ML ML 400 MG GT (09:37)
--- NOTE | 2024-07-04 10:32 | PC.SS ---
Update: Patient remains in possession of loose stools, need solid stool prior to discharge.
--- NOTE | 2024-07-04 11:07 | PC.NURSE ---
Report given to JACKIE Stallworth in subacute via telephone. Pending discharge for today.
--- NOTE | 2024-07-04 11:23 | PC.SS ---
PASSR completed. A level II Mental Health Evaluation referral is not required due to a Categorical Condition.? On line closure is pending.
--- NOTE | 2024-07-04 13:08 | CHAP ---
10:30 AM Visited by spiritual care volunteer Provided prayer for Patient.
--- NOTE | 2024-07-04 13:10 | CHAP ---
10:30 AM Visited by spiritual care volunteer Provided prayer for Patient.
--- NOTE | 2024-07-04 13:47 | ESDS_ITS ---
<Statement entered by Jane Boyd MD - 07/07/24 15:07> I reviewed above note and agree with findings and plans. I have also personally examined the patient with medicine team and went over assessment and plan with medical team including hr intern and resident physician. Discharge time more than 30 minutes. Planned Discharge Date 07/04/24 DS: Providers Provider Date of admission: 06/25/24 17:00 Primary care physician: Physician No Primary/Family Admitting Provider: John Canales DO Attending Provider on Admission: Jane Boyd MD Consults: 06/25/24 17:15 Referral Registered Dietitian Stat Comment: Instructions: Patient uses GT from SNF downstairs, currently NPO 06/28/24 05:00 Consult to Infectious Diseases Routine Comment: C.diff despite previous treatment Consulting Provider: Pilo Gates 07/03/24 16:21 Referral Wound Care Routine Comment: Attending Provider on DC: Devorah Barreto MD Discharging Provider: Devorah Barreto MD DS: Diagnosis Problem List Completed Was Problem List Reviewed/Reconciled?: Yes Hospital Course Hospital Course Hospital course: Summary: 69-year-old female with a past medical history of epilepsy, hypertension, hyperlipidemia, diabetes mellitus (no medication on board per chart review), recent history history of C. difficile requiring vancomycin who was admitted for sepsis secondary to UTI, pneumonia, and C. diffe then found to have bacteremia secondary to klebsiella pneumoniae. ER: In the ER WBC count of 23.3, hemoglobin 10.7, hematocrit 32.0, MCV 88 with sodium of 129, potassium 5.8, chloride 94, GFR greater than 60, glucose 145, lactic acid 2.7 ammonia less than 10, troponin levels less than 0.002, BNP 24. EKG showed sinus tachycardia with a low QRS voltage, QT C401. Hospital Course: Patient is a 69 year old female with past medical history of hypertension, diabetes mellitus type 2 (no medication on board), and history of epilespsy who is non-veral, trached, and PEG. Sepsis secondary to UTI and Pneumonia, resolved upon discharged and Cefepmine completed per recommendations of infectious disease. Urine culture grew Klebsiella pneumoniae and blood culture (1/2) Klebsiella pneumonia. Sputum culture positive for Pseudomonas aeruginosa. Given recent hospitlization last month, with C. diffe and increased foul smelling and watery diarrhea, patient started on 10 day course of oral vancomycin. Holding anti-hypertensive medication as blood pressure has been stable, consider restarting at SNF if need be. Instructions: -Please continue Vancomycin oral via GT 125 mg Q6HR for Clostridium difficile until 07/06/2024 to complete a 10 day course -Please STOP taking Losartan and Doxazosin as your systolic blood pressure has as been <130, re-evaluate with primary care provider -Please continue the rest of your home medication -Please follow up with your primary care provider within one week of discharge -If your symptoms worsen,please seek immediate medical attention and return to your nearest emergency room -If you do not have a primary care provider, [facility], [place] [address], Safe to discharge SNF. #Clostridioides Difficlile, improved #Leukocytosis, improved #Bacteremia, resolved #UTI, Klebsiella Pneumoniae, resolved. #Sepsis, secondary to UTI, Resolved #Ventilator Associated Pneumonia, resolved. #Pneumonia #GNR #Diabetes Mellitus Type 2 #Hypertension #History of Seizures #Intertrigo #yeast infection #Normocytic Anemia, stable #Hypoosmolar Mild Hyponatremia, improving #GT #Cholelthiasis #Mild Hyperkalemia, resolved. #lactic Acidodsis, resolved. - The patient's plan was discussed with attending Dr. Boyd and senior residents Dr. Silvina Barreto MD PGY1 Internal Medicine Senior resident attestation: Patient evaluated and examined at the bedside, plan of care discussed with rest of the team including my attending physician, except as noted. Silvina PGY2 Time Spent with Patient Time attestation: Total time spent providing and/or coordinating discharge services: at least 30 minutes of care and coordination Exam Vital Signs Temp Pulse Resp BP Pulse Ox O2 Del Method O2 Flow Rate 97.7 F 85 28 H 120/77 97 Mechanical Ventilation 7 07/04/24 12:00 07/04/24 13:17 07/04/24 12:00 07/04/24 12:00 07/04/24 13:17 07/04/24 12:00 07/04/24 12:00 FiO2 30 07/04/24 13:17 Narrative Exam General Appearance: Alert & Oriented X1, Non-verbal, well-nourished female who is lying in bed in no acute distress HEENT: Skull symmetrical and atraumatic. Conjunctivae pin and moist. Pupils equal, round, reactive to light and accommodation (PERRL). External ear without lesion or discharge. Straight, nares patient, mucosa pink, no discharge. No thyroid nodule appreciated. No cervical lymphadenopathy. Cardio: Normal Rate and Rhythm with S1 and S2 heart sounds. Difficult to appreciate given body hapbitus. No bruits on carotid auscultation. No peripheral edema or cyanosis. Lungs: Symmetric with good expansion. Chest and back non-tender. Breath sounds vesicular without crackles, wheezing or rhonchi Abdomen: Non-tender, Non-distended, Normal Reactive Bowel Sounds Neuro: Alert, Yes cooperative, No oriented to person, No place, and No time. Non-verbal CN grossly intact. Upper and lower extremities contracted, not following commands. Discharge Plan Plan Patient Disposition: Xfer Half-Way Acute w/in Hosp Disposition Comment: Hospitalist to admit Patient condition on transfer: Stable Care Plan Goals: Instructions: -Please continue Vancomycin oral via GT 125 mg Q6HR for Clostridium difficile until 07/06/2024 to complete a 10 day course -Please STOP taking Losartan and Doxazosin as your systolic blood pressure has as been <130, re-evaluate with primary care provider -Please continue the rest of your home medication -Please follow up with your primary care provider within one week of discharge -If your symptoms worsen,please seek immediate medical attention and return to your nearest emergency room -If you do not have a primary care provider, you may follow up at the [facility] at [address], [place] [address], Prescriptions/Referrals Prescriptions/Med Rec: New docusate sodium 50 mg/5 mL Liquid 100 mg G-tube QDAY PRN (Reason: Constipation) 14 Days Qty: 1000 0RF buspirone 5 mg Tablet 10 mg G-tube Q8HR PRN (Reason: Agitation) 14 Days Qty: 28 0RF atorvastatin 20 mg Tablet 40 mg G-tube HS 14 Days Qty: 28 0RF aspirin [Children's Aspirin] 81 mg Tablet,Chewable 81 mg G-tube QDAY 14 Days Qty: 14 0RF levetiracetam 500 mg/5 mL (5 mL) Solution 1,000 mg G-tube BID 14 Days Qty: 280 0RF acetaminophen 325 mg/10.15 mL Solution 650 mg G-tube Q6H PRN (Reason: pain 1-3 and fever >100.3) 14 Days Qty: 406 0RF valproic acid (as sodium salt) 250 mg/5 mL (5 mL) Solution 500 mg G-tube TID 14 Days Qty: 420 0RF vancomycin 25 mg/mL Recon Soln 125 mg G-tube Q6HR 5 Days Qty: 300 0RF ergocalciferol (vitamin D2) 1,250 mcg (50,000 unit) capsule 1,250 mcg PO QWEEK Qty: 14 0RF Referrals: No Primary/Family,Physician [Primary Care Provider] - Patient/Caregiver Discharge Instructions Education Materials: C diff, Understanding Urinary Tract ... Print Language: Wolof Stand Alone Forms: Johana Award Info., Patient Portal Info Letter Discharge Order Discharge Orders: Discharge (Routine); Ordered 07/04/24 Ordered By: Devorah Barreto Quality Discharge Quality Measures VTE prophylaxis
[2024-07-04] MEDS: ATORVASTATIN CALCIUM 20 MG TABLET 40 MG GT (21:20)
[2024-07-05] VITALS (8 sets, daily range): BP systolic 96–129; BP diastolic 62–89; PULSE 72–102; RESP 19–44; TEMP 36.3–36.6; O2SAT 95–98; BMI 31.7
[2024-07-05] MEDS: VALPROIC ACID SYRUP 250 MG/5 ML UDC 500 MG GT (05:13)
[2024-07-05] MEDS: VANCOMYCIN 125 MG CAPSULE GT ×2 (05:16→11:32)
[2024-07-05 05:38] LABS: Basophils # (Auto) 0.1 Thou/mm3 (0.0-0.2); Basophils % (Auto) 0 % (0-2.5); Eosinophils # (Auto) 0.6 Thou/mm3 (0.0-0.5); Eosinophils % (Auto) 4 % (0-10); Hematocrit 27.5 % (36.0-46.0); Immature Granulocytes % (Auto) 20 % (0-0); Immature Granulocytes Auto 3.15 Thou/mm3 (0.00-0.00); Lymphocytes # (Auto) 3.4 Thou/mm3 (1.0-4.8); Lymphocytes % (Auto) 21 % (10-50); Mean Corpuscular HGB Conc 32.7 g/dl (31.0-37.0); Mean Corpuscular Hemoglobin 29.8 pg (25.0-35.0); Mean Corpuscular Volume 91 fL (80-100); Monocytes # (Auto) 2.4 Thou/mm3 (0.0-0.8); Monocytes % (Auto) 15 % (0-12); Neutrophils # (Auto) 6.5 Thou/mm3 (1.8-7.7); Neutrophils % (Auto) 40 % (37-80); Nucleated Red Blood Cell % 0 /100 WBC (0); Platelet Count 382 Thou/mm3 (140-440); RDW Standard Deviation 54.2 fL (36.4-46.3); Red Blood Count 3.02 Miln/mm3 (4.00-5.20); White Blood Count 16.1 Thou/mm3 (3.6-11.0)
[2024-07-05 06:25] LABS: Alanine Aminotransferase < 7 U/L (10-49); Albumin, Serum 3.7 gm/dL (3.4-4.8); Albumin/Globulin Ratio 1.2 (1.2-2.2); Alkaline Phosphatase 71 U/L (46-116); Anion Gap 6 (7-16); Aspartate Amino Transferase 20 U/L (0-34); BUN/Creatinine Ratio 42 Ratio (12-20); Bilirubin,Total 0.2 mg/dL (0.3-1.2); Blood Urea Nitrogen 25 mg/dL (9-23); Calcium 9.4 mg/dL (8.3-10.6); Calcium (Corrected) 9.6 mg/dL (8.5-10.1); Carbon Dioxide 35.4 mMol/L (20.0-31.0); Chloride 91 mMol/L (98-107); Creatinine (Component) 0.6 mg/dL (0.6-1.3); Estimated Creatinine Clearance 91.8 mL/min (>60); Glucose 138 mg/dL (74-106); Magnesium 2.1 mg/dL (1.6-2.6); Osmolality,Calculated 270 (275-295); Phosphorous 3.7 mg/dL (2.4-5.1); Sodium 132 mMol/L (136-145); Total Protein 6.7 gm/dL (5.7-8.2); eGFR > 60 See Note
--- NOTE | 2024-07-05 07:29 | PC.SS ---
PASSR closed on line. PASSR submitted to sub-acute unit via [employer].
--- NOTE | 2024-07-05 07:51 | PC.SS ---
Updated clinicals submitted on [facility] to sub-acute unit.
--- NOTE | 2024-07-05 08:56 | PC.SS ---
KNAPSACK SPRAYER confirmed with resident team that patient is medically cleared to return to Sub-Acute unit. KNAPSACK SPRAYER notified Sub-Acute unit, informed KNAPSACK SPRAYER that patient can return to facility anytime after 10:00 am. KNAPSACK SPRAYER provided update to bedside nurse.
--- NOTE | 2024-07-05 09:02 | PC.SS ---
Update: D/C back to sub-acute today.
[2024-07-05] MEDS: ASPIRIN 81 MG CHEW GT (09:03)
[2024-07-05] MEDS: levETIRAcetam LIQD 500 MG/5 ML UDC 1000 MG GT (09:03)
[2024-07-05] MEDS: HEPARIN SOD INJ 5000 UNIT/ML VIAL SC (09:03)
--- NOTE | 2024-07-05 12:35 | CHAP ---
Patient was visited by the Spiritual Care Volunteer who prayed for them. (Volunteer was in the hospital from 11:00-12:35.)
--- NOTE | 2024-07-10 14:55 | ESPR_ITS ---
Patient Name: YOANDY SANDOVAL : 1955 Documentation for date of: 07/05/24 Subjective Subjective Interval history: No overnight events. Patient had two failed discharges as reauthorization had to be every submitted to SNF secondary to patient being on Keppra. Patient had 2 bowel movements but not watery. Patient WBC count continues to downtrend while at. No grimacing noted at bedside. Discharged today, on 07/05/2024 from [facility] back to [facility]. Exam Narrative Exam General Appearance: Alert & Oriented X0, well-nourished female who is lying in bed in no acute distress HEENT: Skull symmetrical and atraumatic. Conjunctivae pin and moist. Pupils equal, round, reactive to light and accommodation (PERRL). External ear without lesion or discharge. Straight, nares patient, mucosa pink, no discharge. No thyroid nodule appreciated. No cervical lymphadenopathy. Cardio: Normal Rate and Rhythm with S1 and S2 heart sounds. No murmurs or extra heart sounds auscultated. No bruits on carotid auscultation. No peripheral edema or cyanosis. Lungs: Symmetric with good expansion. Chest and back non-tender. Breath sounds vesicular without crackles, wheezing or rhonchi Abdomen: Non-tender, Non-distended, Normal Reactive Bowel Sounds Neuro: Yes Alert, Yes cooperative, oriented to person, place, and time. Non- verbal, unable to access. Upper motor strength 4/5 and Lower motor strength 2/5. Sensation intact. Objective Labs 07/05/24 15:32 07/07/24 06:40 Quality Measures Quality Measures VTE prophylaxis Advance care planning discussed with:: other (per chart review from SNF) Assessment & Plan Assessment Current Active Medications: Generic Name Dose Route Start Last Admin Trade Name Freq PRN Reason Stop Dose Admin Aspirin 81 mg 07/06/24 09:00 Aspirin 81 Mg Tab.Chew GT 07/06/25 08:59 QDAY DYLAN Atorvastatin Calcium 40 mg 07/05/24 21:00 Atorvastatin 20 Mg Tablet GT 07/05/25 13:03 HS DYLAN Buspirone HCl 10 mg 07/05/24 13:06 Buspirone 10 Mg Tablet GT 07/05/25 13:05 Q8HR PRN AGITATION Ergocalciferol 1,250 mcg 07/06/24 09:00 Ergocalciferol (Vitamin D2) 1,250 Mcg Capsule GT 07/06/25 08:59 QDAY [facility] Heparin Sodium (Porcine) 5,000 unit 07/05/24 21:00 Heparin 5,000 Unit/Ml Vial SC 10/03/24 20:59 BID DYLAN Insulin Human Lispro 1 unit 07/05/24 18:00 Insulin Lispro 100 Unit/Ml Insuln.Pen SC 07/05/25 17:59 Q6HR DYLAN Levetiracetam 1,000 mg 07/05/24 21:00 Levetiracetam 1,000 Mg Tablet GT 07/05/25 20:59 BID [facility] Valproic Acid 500 mg 07/05/24 14:00 Valproic Acid 250 Mg/5 Ml Liquid GT 07/05/25 13:59 TID DYLAN Vancomycin HCl 125 mg 07/05/24 18:00 Vancomycin Hcl 125 Mg Capsule GT 07/06/24 17:01 QID [facility] Plan 69-year-old female with a past medical history of epilepsy, hypertension, hyperlipidemia, diabetes mellitus (no medication on board per chart review), recent history history of C. difficile requiring vancomycin who was admitted for sepsis secondary to UTI. #Clostridioides Difficlile, improving #Leukocytosis, worsened. Patient has past medical history C. diff that was treated from April-May which was treated with Vancomycin at [facility]. Per patient's sister, completed course and only 1 previous episode of C. Diff per patient's sister. Diagnostics: CT Abdomen/Pelvis: Findings most consistent with bilateral urinary tract infection and cystitis, likely vesicoureteral reflux. Cholelithiasis. Negative for toxic megacolon. Negative for obstruction C.Diff PCR: Positive Plan -C. Diff percautions -Vancomhycin oral 125 GT Q6HR (oral) 06/27/2024--07/06/2024>continue for 10 days -Consult Infectious Disease, appreciate recommendations, Dr. Gates. #Bacteremia, resolved #UTI, Klebsiella Pneumoniae, resolved. #Sepsis, secondary to UTI, Resolved Patient presented with sepsis secondary to UTI with positive UA showing WBC of 258, positive esterase, and nitrates w/ RBC 1728. Bacteria 2+. Pneumonia can not be ruled out given mild congrestion noted on chest x-ray and upper air way sounds vs SC less likely given normal troponin levels with EKG showing Q waves in leads II, III, and AVF but no reciprocal leads thus less likely SC. Given recent history of c. diff can not be ruled out, pending c. diff pcr but will follow up with CT abdomen. WBC 23.3;ABG pH 7.38, pCO2 49, pO2 106, HCO3 29, O2 saturation 99 FIO2 30-->WBC 20.9 () down trend UA Positive for esterase, bacteria, nitrates and WBC Urine Culture Klebsiella pneumoniae Blood culture 1/2 bottles Gram Negative Rods CT head unremarkable. SOFA 4; GCS 11 Plan: -Vancomycin oral (06/26/2024-07/06/2024) -Cefepmine: (06/26/2024-07/01/2024) -Vancomycin & Zosyn X 1 ER 06/25/2024 -Ceftriaxone dc/ed 06/25/2024-06/26/2024 #Ventilator Associated Pneumonia, resolved. #Pneumonia #GNR Given recent hospitalization in May, upper airway sounds, recent antibiotic use, mechanical associated pneumonia can not be ruled out. Given sputum culture is noted to have gram negative rods, Klebsiella Pneumoniae can not be ruled out as source of infection given positive urine culture and 1/2 bottles present in blood culture w/ GNR. Other bacteria that can not be ruled out is MRSA and Enterobacter vs CAP vs viral less likely given negative flu, rsv, and COVID. Diagnostics: -Sputum Culture: Gram Negative Rods, pending final results. -Blood culture 1/2 bottles Gram Negative Rods, klebsiella pneumoniae -CT Abdomen/Pelvis: Atelectasis versus mild pneumonia left base Plan -Cefepime 2 gm IV Q8H (06/26/2024-07/01/2024), completed, -Consider repeat blood culture -monitor oxygen saturation #Diabetes Mellitus Type 2 Past medical history of diabetes mellitus type 2 but no medication on board from [facility]. No sliding scale given for today. Diagnostics: A1c 5.5 w/ Fasting glucose (06/27/2004) 151 -total of 0 units given 06/28/2024 Plan -Continue to monitor fasting glucose -Sliding Lispro scale #Hypertension given soft blood pressure, holding Doxazosin and Losartan. Continue to hold home anti-hypertensive medication as BP has been <120/110. Plan -Continue to hold Losartan 25 mg resumed. -Holding Doxazosin 1 mg tabelt via GT -Reaccess at [facility] -Please monitor if patient is hypotensive <120 systolic -Labetolol 10 mg IV Q4HR for SBP >160 #History of Seizures Plan -Resume Levetiracetam 1000 mg GT BID dylan and Valproic Acid 500 mg GT TID -Seizure precautions -head of the bed at 30 degrees #Intertrigo #yeast infection Per home medication on Fluconazole from 06/25/2024-07/04/2024 per chart review from subacute medication list. Plan: -Fluconazole 06/25/2024-07/04/2024, per [facility] -Completed paper work #Normocytic Anemia, stable On admission, patient presented with Hgb of 10.7, Hct 32.0 and MCV of 88 likely anemia of chronic disease, no acute intervention Diagnostics: Hgb 9.2 hct 27.6, mcv 89--> (06/28/2024) Hgb 8.8, hct 27.0, MCV 89 plan -consider iron panel, b12, and folic as outpatient #Hypoosmolar Mild Hyponatremia, improved. Mild hyponatremia noted on admission w/ Na of 133 w/ osmolarity of 267, likely secondary to dilution from bolus given overnight. Diagnostics: Plan -Monitor sodium -no acute intervention #GT GT resumed. #Cholelthiasis , stable incidental finding noted on CT abdomen/Pelvis Plan -continue to monitor -no acute intervention #Mild Hyperkalemia, resolved. #lactic Acidodsis, resolved. Health Maintenance: Disp: Pt is currently admitted to floors for further management of sepsis , likely dc tomorrow if patient continues to improve. FEN:Glucerna 1.2 @ 58ml/hr x 22hrs via G tube by pump to provide: 1276ml total vol, 1531kcal, 76g protein. If no IVF, give AF 40ml/hr water x 24hrs (or per MD) DVT: on subQ heparin Code: DNR - The patient's plan was discussed with attending Dr. Boyd and senior residents Dr. Silvina Barreto MD PGY1 Internal Medicine Senior resident attestation: Patient evaluated and examined at the bedside, plan of care discussed with rest of the team including my attending physician, except as noted. Silvina PGY2 CC: MTDD
== END 2024-07-05 11:42 | disposition skilled nursing facility (03) | DRG 870 ==
LOC: SERX 17:14 → SERHOLD 17:27 → S3NX 06-26 06:11 → S2NX 06-26 06:11
PROVIDERS: Internal Medicine Infectious Disease; Student in an Organized Health Care Education/Training Program; Admitting Provider Student in an Organized Health Care Education/Training Program; Emergency Provider Emergency Medicine; Visit Provider Internal Medicine
DX: A41.59 Other Gram-negative sepsis (principal); J15.0 Pneumonia due to Klebsiella pneumoniae; J96.20 Acute and chronic respiratory failure, unspecified whether with hypoxia or hypercapnia; E87.1 Hypo-osmolality and hyponatremia; E87.20 Acidosis, unspecified; G81.91 Hemiplegia, unspecified affecting right dominant side; J95.851 Ventilator associated pneumonia; B38.0 Acute pulmonary coccidioidomycosis; A04.72 Enterocolitis due to Clostridium difficile, not specified as recurrent; Z16.24 Resistance to multiple antibiotics; G40.909 Epilepsy, unspecified, not intractable, without status epilepticus; I10 Essential (primary) hypertension; E11.9 Type 2 diabetes mellitus without complications; N30.91 Cystitis, unspecified with hematuria; E78.5 Hyperlipidemia, unspecified; E87.5 Hyperkalemia; L30.4 Erythema intertrigo; K80.20 Calculus of gallbladder without cholecystitis without obstruction; D63.8 Anemia in other chronic diseases classified elsewhere; B37.9 Candidiasis, unspecified; Z66 Do not resuscitate; Z93.1 Gastrostomy status; Z93.0 Tracheostomy status; Z79.82 Long term (current) use of aspirin; Z79.899 Other long term (current) drug therapy
CPT/HCPCS: 36415; 70450; 71045; 74177; 80053; 80061; 80202; 80307; 80320; 81001; 82140; 82803; 83036; 83605; 83735; 83880; 84100; 84132; 84145; 84443; 84484; 85025; 85610; 86022; 86140; 86803; 86850; 86900; 86901; 87040; 87077; 87081; 87086; 87186; 87205; 87400; 87493; 87502; 87811; 93005; 93225; 94002; 94003; 96361; 96365; 99285; A4649; J0692; J0696; J1643; J1815; J2470; J2543; J3370; J7030; J7050; J7120; Q9967; A9270; G0480

== ENCOUNTER 2024-07-05 12:25 | Inpatient (IN) | payer MEDICARE, MEDICAID, SELFPAY ==
[2024-07-05 12:25] VITALS: BP 136/60; PULSE 94; RESP 34; TEMP 36.6; O2SAT 98
--- NOTE | 2024-07-05 14:25 | ESPR_ITS ---
Documentation for date of: 07/05/24 Subjective Subjective Interval history: No overnight events. Patient had two failed discharges as reauthorization had to be every submitted to SNF secondary to patient being on Keppra. Patient had 2 bowel movements but not watery. Patient WBC count continues to downtrend while at. No grimacing noted at bedside. Discharged today, on 07/05/2024 from [place] back to SNF. Exam Narrative Exam General Appearance: Alert & Oriented X0, well-nourished female who is lying in bed in no acute distress HEENT: Skull symmetrical and atraumatic. Conjunctivae pin and moist. Pupils equal, round, reactive to light and accommodation (PERRL). External ear without lesion or discharge. Straight, nares patient, mucosa pink, no discharge. No thyroid nodule appreciated. No cervical lymphadenopathy. Cardio: Normal Rate and Rhythm with S1 and S2 heart sounds. No murmurs or extra heart sounds auscultated. No bruits on carotid auscultation. No peripheral edema or cyanosis. Lungs: Symmetric with good expansion. Chest and back non-tender. Breath sounds vesicular without crackles, wheezing or rhonchi Abdomen: Non-tender, Non-distended, Normal Reactive Bowel Sounds Neuro: Yes Alert, Yes cooperative, oriented to person, place, and time. Non- verbal, unable to access. Upper motor strength 4/5 and Lower motor strength 2/5. Sensation intact. Objective Labs 07/05/24 15:32 07/07/24 06:40 Quality Measures Quality Measures VTE prophylaxis Advance care planning discussed with:: other (per chart review from [facility]) Assessment & Plan Assessment Current Active Medications: Generic Name Dose Route Start Last Admin Trade Name Freq PRN Reason Stop Dose Admin Aspirin 81 mg 07/06/24 09:00 Aspirin 81 Mg Tab.Chew GT 07/06/25 08:59 QDAY DYLAN Atorvastatin Calcium 40 mg 07/05/24 21:00 Atorvastatin 20 Mg Tablet GT 07/05/25 13:03 HS DYLAN Buspirone HCl 10 mg 07/05/24 13:06 Buspirone 10 Mg Tablet GT 07/05/25 13:05 Q8HR PRN AGITATION Ergocalciferol 1,250 mcg 07/06/24 09:00 Ergocalciferol (Vitamin D2) 1,250 Mcg Capsule GT 07/06/25 08:59 QDAY DYLAN Heparin Sodium (Porcine) 5,000 unit 07/05/24 21:00 Heparin 5,000 Unit/Ml Vial SC 10/03/24 20:59 BID [facility] Insulin Human Lispro 1 unit 07/05/24 18:00 Insulin Lispro 100 Unit/Ml Insuln.Pen SC 07/05/25 17:59 Q6HR DYLAN Levetiracetam 1,000 mg 07/05/24 21:00 Levetiracetam 1,000 Mg Tablet GT 07/05/25 20:59 BID [facility] Valproic Acid 500 mg 07/05/24 14:00 Valproic Acid 250 Mg/5 Ml Liquid GT 07/05/25 13:59 TID [facility] Vancomycin HCl 125 mg 07/05/24 18:00 Vancomycin Hcl 125 Mg Capsule GT 07/06/24 17:01 QID [facility] Plan 69-year-old female with a past medical history of epilepsy, hypertension, hyperlipidemia, diabetes mellitus (no medication on board per chart review), recent history history of C. difficile requiring vancomycin who was admitted for sepsis secondary to UTI. #Clostridioides Difficlile, improving #Leukocytosis, worsened. Patient has past medical history C. diff that was treated from April-May which was treated with Vancomycin at [facility]. Per patient's sister, completed course and only 1 previous episode of C. Diff per patient's sister. Diagnostics: CT Abdomen/Pelvis: Findings most consistent with bilateral urinary tract infection and cystitis, likely vesicoureteral reflux. Cholelithiasis. Negative for toxic megacolon. Negative for obstruction C.Diff PCR: Positive Plan -C. Diff percautions -Vancomhycin oral 125 GT Q6HR (oral) 06/27/2024--07/06/2024>continue for 10 days -Consult Infectious Disease, appreciate recommendations, Dr. Gates. #Bacteremia, resolved #UTI, Klebsiella Pneumoniae, resolved. #Sepsis, secondary to UTI, Resolved Patient presented with sepsis secondary to UTI with positive UA showing WBC of 258, positive esterase, and nitrates w/ RBC 1728. Bacteria 2+. Pneumonia can not be ruled out given mild congrestion noted on chest x-ray and upper air way sounds vs [place] less likely given normal troponin levels with EKG showing Q waves in leads II, III, and AVF but no reciprocal leads thus less likely [place]. Given recent history of c. diff can not be ruled out, pending c. diff pcr but will follow up with CT abdomen. WBC 23.3;ABG pH 7.38, pCO2 49, pO2 106, HCO3 29, O2 saturation 99 FIO2 30-->WBC 20.9 () down trend UA Positive for esterase, bacteria, nitrates and WBC Urine Culture Klebsiella pneumoniae Blood culture 1/2 bottles Gram Negative Rods CT head unremarkable. SOFA 4; GCS 11 Plan: -Vancomycin oral (06/26/2024-07/06/2024) -Cefepmine: (06/26/2024-07/01/2024) -Vancomycin & Zosyn X 1 ER 06/25/2024 -Ceftriaxone dc/ed 06/25/2024-06/26/2024 #Ventilator Associated Pneumonia, resolved. #Pneumonia #GNR Given recent hospitalization in May, upper airway sounds, recent antibiotic use, mechanical associated pneumonia can not be ruled out. Given sputum culture is noted to have gram negative rods, Klebsiella Pneumoniae can not be ruled out as source of infection given positive urine culture and 1/2 bottles present in blood culture w/ GNR. Other bacteria that can not be ruled out is MRSA and Enterobacter vs CAP vs viral less likely given negative flu, rsv, and COVID. Diagnostics: -Sputum Culture: Gram Negative Rods, pending final results. -Blood culture 1/2 bottles Gram Negative Rods, klebsiella pneumoniae -CT Abdomen/Pelvis: Atelectasis versus mild pneumonia left base Plan -Cefepime 2 gm IV Q8H (06/26/2024-07/01/2024), completed, -Consider repeat blood culture -monitor oxygen saturation #Diabetes Mellitus Type 2 Past medical history of diabetes mellitus type 2 but no medication on board from [facility]. No sliding scale given for today. Diagnostics: A1c 5.5 w/ Fasting glucose (06/27/2004) 151 -total of 0 units given 06/28/2024 Plan -Continue to monitor fasting glucose -Sliding Lispro scale #Hypertension given soft blood pressure, holding Doxazosin and Losartan. Continue to hold home anti-hypertensive medication as BP has been <120/110. Plan -Continue to hold Losartan 25 mg resumed. -Holding Doxazosin 1 mg tabelt via GT -Reaccess at [facility] -Please monitor if patient is hypotensive <120 systolic -Labetolol 10 mg IV Q4HR for SBP >160 #History of Seizures Plan -Resume Levetiracetam 1000 mg GT BID dylan and Valproic Acid 500 mg GT TID -Seizure precautions -head of the bed at 30 degrees #Intertrigo #yeast infection Per home medication on Fluconazole from 06/25/2024-07/04/2024 per chart review from subacute medication list. Plan: -Fluconazole 06/25/2024-07/04/2024, per SNF -Completed paper work #Normocytic Anemia, stable On admission, patient presented with Hgb of 10.7, Hct 32.0 and MCV of 88 likely anemia of chronic disease, no acute intervention Diagnostics: Hgb 9.2 hct 27.6, mcv 89--> (06/28/2024) Hgb 8.8, hct 27.0, MCV 89 plan -consider iron panel, b12, and folic as outpatient #Hypoosmolar Mild Hyponatremia, improved. Mild hyponatremia noted on admission w/ Na of 133 w/ osmolarity of 267, likely secondary to dilution from bolus given overnight. Diagnostics: Plan -Monitor sodium -no acute intervention #GT GT resumed. #Cholelthiasis , stable incidental finding noted on CT abdomen/Pelvis Plan -continue to monitor -no acute intervention #Mild Hyperkalemia, resolved. #lactic Acidodsis, resolved. Health Maintenance: Disp: Pt is currently admitted to floors for further management of sepsis , likely dc tomorrow if patient continues to improve. FEN:Glucerna 1.2 @ 58ml/hr x 22hrs via G tube by pump to provide: 1276ml total vol, 1531kcal, 76g protein. If no IVF, give AF 40ml/hr water x 24hrs (or per MD) DVT: on subQ heparin Code: DNR - The patient's plan was discussed with attending Dr. Boyd and senior residents Dr. Silvina Barreto MD PGY1 Internal Medicine Senior resident attestation: Patient evaluated and examined at the bedside, plan of care discussed with rest of the team including my attending physician, except as noted. Silvina PGY2
[2024-07-05] MEDS: VALPROIC ACID 250 MG/5 ML 500 MG GT ×2 (14:37→21:01)
[2024-07-05] MEDS: ACETAMINOPHEN 325 MG TABLET 650 MG GT (14:45)
[2024-07-05 16:08] VITALS: BMI 31.8
[2024-07-05 16:12] LABS: Basophils # (Auto) 0.1 Thou/mm3 (0.0-0.2); Basophils % (Auto) 0 % (0-2.5); Eosinophils # (Auto) 0.6 Thou/mm3 (0.0-0.5); Eosinophils % (Auto) 3 % (0-10); Hematocrit 27.9 % (36.0-46.0); Hemoglobin 9.2 g/dL (12.0-16.0); Immature Granulocytes % (Auto) 18 % (0-0); Immature Granulocytes Auto 3.43 Thou/mm3 (0.00-0.00); Lymphocytes # (Auto) 3.8 Thou/mm3 (1.0-4.8); Lymphocytes % (Auto) 21 % (10-50); Mean Corpuscular Volume 88 fL (80-100); Monocytes # (Auto) 2.6 Thou/mm3 (0.0-0.8); Monocytes % (Auto) 14 % (0-12); Neutrophils # (Auto) 8.2 Thou/mm3 (1.8-7.7); Neutrophils % (Auto) 44 % (37-80); Nucleated Red Blood Cell % 0 /100 WBC (0); Platelet Count 424 Thou/mm3 (140-440); RDW Standard Deviation 51.1 fL (36.4-46.3); Red Blood Count 3.17 Miln/mm3 (4.00-5.20); White Blood Count 18.7 Thou/mm3 (3.6-11.0)
--- NOTE | 2024-07-05 16:25 | PC.SS ---
Resident admitted to subacute care, she is [employer] ep[employer] will accept spiritual care visits from teasel setter. Resident has POA in place with her healthcare proxy being her sister Suzie Ennis. Resident is awake unable to make needs known. History of depression and anxiety. This SSD will make daily contact and will monitor for changes in mod and behavior.
[2024-07-05 16:47] LABS: Albumin, Serum 3.8 gm/dL (3.4-4.8); Anion Gap 6 (7-16); BUN/Creatinine Ratio 37 Ratio (12-20); Blood Urea Nitrogen 22 mg/dL (9-23); Calcium 9.1 mg/dL (8.3-10.6); Calcium (Corrected) 9.3 mg/dL (8.5-10.1); Carbon Dioxide 33.2 mMol/L (20.0-31.0); Chloride 90 mMol/L (98-107); Creatinine (Component) 0.6 mg/dL (0.6-1.3); Estimated Creatinine Clearance 91.7 mL/min (>60); Glucose 133 mg/dL (74-106); Osmolality,Calculated 264 (275-295); Phenytoin (Dilantin) < 2.0 mcg/mL; Phosphorous 3.8 mg/dL (2.4-5.1); Potassium 4.9 mMol/L (3.4-5.1); Sodium 129 mMol/L (136-145); eGFR > 60 See Note
[2024-07-05 16:56] VITALS: BP 104/63; RESP 86; TEMP 36.6; O2SAT 33
--- NOTE | 2024-07-05 17:43 | PC.ADMIT ---
RESIDENT RETURNED NEW ADMISSION FROM TELEMETRY (INTERNAL TRANSFER). RESIDENT ARRIVED VIA HOSPITAL BED. ASSISTED TO SUBACUTE BED. COMPLETE ASSESSMENT DONE. RESIDENT ON MECHANICAL VENTILATION. NO RESPIRATORY NOTED UPON ARRIVAL. R ALERT AND ORIENTED X2. VITAL SIGNS WNL. CARRIED OUT ALL NEW ORDERS. RES. WILL BE PLACED ON CONTACT PRECAUTIONS DUE TO HX OF C-DIFF. IAD NOTED TO ALL ALISA SAV AREA. TREATMENTS IN PLACE. WILL CONTINUE TO MONITOR.
[2024-07-05 19:41] VITALS: PULSE 93; RESP 25; O2SAT 97
--- NOTE | 2024-07-05 20:00 | ESHP_ITS ---
Physical exam Physical Exam Vital signs: Temp Pulse Resp BP Pulse Ox O2 Del Method FiO2 97.3 F 94 23 H 123/66 98 Mechanical Ventilation 30 07/07/24 06:00 07/07/24 07:03 07/07/24 06:00 07/07/24 06:00 07/07/24 07:03 07/07/24 06:00 07/07/24 07:03 Constitutional Comments: VSS HEENT Exam Comments: NAD Neck Exam Comments: NAD Chest/Breast/Axilla Exam Comments: NAD Respiratory Exam Respiratory: Present chest non-tender, lungs clear and patient mechanically ventilated Cardiovascular Exam Cardiovascular: Present RRR, S1 and S2 Abdominal Exam Abdominal: Present soft Rectal Exam Comments: deferred Exam Comments: NAD Extremities Exam Comments: no edema Back/Spine/Pelvis Exam Comments: NAD Neurological Exam Comments: spontanous eye opening, no orientation to place/person/time. No cognitive response Rehabilitation potential Diagnosis (1) Hyponatremia: Status: Chronic (2) Hyperkalemia: Status: Acute (3) Chronic respiratory failure: Status: Chronic (4) Ventilator dependent: Status: Chronic (5) Tracheostomy dependence: Status: Chronic (6) PEG (percutaneous endoscopic gastrostomy) status: Status: Chronic (7) Essential hypertension: Status: Chronic (8) Seizures: Status: Chronic (9) Chronic anoxic encephalopathy: Status: Chronic Assessment & Plan Assessment: 69 yrs of age female being admitted with Hypertension/hyperlipidemia/epilepsy, recently treated in acute care for UTI sepsis and on Vancomycin for C-difficile and improving hyponatremia with chronic encephalopathy/ chronic respiratory failure/ Ventilator dependent/Trach and feeding G tube. Plan: Current treatment reviewed and continued. Electrolyte disturbunces being addressed. Prognosis Prognosis: Recovery towards any quality of independent life is extremely poor. Achievalble objective is ensuring comfort and that is being ensured HPI History of Present Illness HPI: 69 yrs of age female being admitted to [facility] with Hypertension/hyperli pidemia/epilepsy, recently treated in acute care for UTI sepsis and on Vancomycin for C-difficile and improving hyponatremia with chronic encephalopathy/ chronic respiratory failure/ Ventilator dependent/Trach and feeding G tube.
[2024-07-05] MEDS: levETIRAcetam 1,000 MG TABLET 1000 MG GT (21:02)
[2024-07-05] MEDS: VANCOMYCIN HCL 125 MG CAPSULE GT (21:03)
[2024-07-05] MEDS: NON-FORMULARY *SEE COMMENTS* 1 EA EA 1200 EA IV (21:30)
--- NOTE | 2024-07-05 22:09 | PC.NURSE ---
2109- made aware of lab results, new order obtained to star NS IV at 50mL/hr for 24 hours for a total volume of 1200mL and renal panel on 07/08/23.
--- NOTE | 2024-07-05 23:55 | PC.NURSE ---
NS fluids started at 2129, resident has an IV to right hand, 22G, no s/s of infection or infiltration, resident in room resting, call light within reach, no s/s of distress at this time.
[2024-07-06] VITALS (8 sets, daily range): BP systolic 115–149; BP diastolic 63–84; PULSE 80–91; RESP 20–35; TEMP 36.4–36.6; O2SAT 94–98
[2024-07-06] MEDS: VANCOMYCIN HCL 125 MG CAPSULE GT ×3 (05:42→17:58)
[2024-07-06] MEDS: VALPROIC ACID 250 MG/5 ML 500 MG GT ×3 (05:42→21:25)
[2024-07-06] MEDS: ASPIRIN 81 MG TAB.CHEW GT (09:01)
[2024-07-06] MEDS: HEPARIN 5,000 UNIT/ML VIAL 5000 UNIT SC ×2 (09:03→21:23)
[2024-07-06] MEDS: levETIRAcetam 100 MG/ML SOLUTION 1000 MG GT ×2 (09:04→21:24)
--- NOTE | 2024-07-06 18:20 | PD.SAPROG ---
Progress Note - SubAcute DIAGNOSIS (1) Hyponatremia: Status: Chronic (2) Hyperkalemia: Status: Acute (3) Chronic respiratory failure: Status: Chronic (4) Ventilator dependent: Status: Chronic (5) Tracheostomy dependence: Status: Chronic (6) PEG (percutaneous endoscopic gastrostomy) status: Status: Chronic (7) Essential hypertension: Status: Chronic (8) Seizures: Status: Chronic (9) Chronic anoxic encephalopathy: Status: Chronic SUBJECTIVE Fever:: none Shortness of Breath:: none Pain:: none OBJECTIVE Most recent vital signs: Last Vital Signs Temp 97.3 F 07/14/24 06:00 Pulse 86 07/14/24 06:57 Resp 28 H 07/14/24 06:00 BP 130/78 07/14/24 06:00 Pulse Ox 98 07/14/24 06:57 O2 Del Method Mechanical Ventilation 07/13/24 06:00 FiO2 30 07/14/24 06:57 Neurological:: awake (orientation x 0, no cognitive response) Respiratory:: lungs clear Cardiovascular: RRR Abdomen: soft Extremities:: deformities Tracheostomy:: to ventilator Feeding per:: G tube Complaints:: none ASSESSMENT & PLAN Assessment: 69 yrs of age female being admitted with Hypertension/hyperlipidemia/epilepsy, recently treated in acute care for UTI sepsis and on Vancomycin for C-difficile and improving hyponatremia with chronic encephalopathy/ chronic respiratory failure/ Ventilator dependent/Trach and feeding G tube. Plan: Current treatment reviewed and continued. Electrolyte disturbunces being addressed.
[2024-07-06] MEDS: ATORVASTATIN 20 MG TABLET 40 MG GT (21:23)
[2024-07-07] VITALS: BP 129/60; PULSE 82; RESP 20; TEMP 36.1
[2024-07-07 00:40] VITALS: PULSE 89; RESP 35; O2SAT 98
[2024-07-07] MEDS: VALPROIC ACID 250 MG/5 ML 500 MG GT ×2 (05:43→21:40)
[2024-07-07 06:00] VITALS: BP 123/66; PULSE 81; RESP 23; TEMP 36.3; O2SAT 97
[2024-07-07 07:03] VITALS: PULSE 94; RESP 30; O2SAT 98
[2024-07-07 07:37] LABS: Albumin, Serum 3.4 gm/dL (3.4-4.8); Anion Gap 6 (7-16); BUN/Creatinine Ratio 30 Ratio (12-20); Blood Urea Nitrogen 18 mg/dL (9-23); Calcium 8.6 mg/dL (8.3-10.6); Calcium (Corrected) 9.1 mg/dL (8.5-10.1); Carbon Dioxide 30.1 mMol/L (20.0-31.0); Chloride 90 mMol/L (98-107); Creatinine (Component) 0.6 mg/dL (0.6-1.3); Estimated Creatinine Clearance 91.7 mL/min (>60); Glucose 144 mg/dL (74-106); Osmolality,Calculated 258 (275-295); Potassium 5.5 mMol/L (3.4-5.1); Sodium 126 mMol/L (136-145); eGFR > 60 See Note
[2024-07-07] MEDS: ASPIRIN 81 MG TAB.CHEW GT (08:15)
[2024-07-07] MEDS: HEPARIN 5,000 UNIT/ML VIAL 5000 UNIT SC ×2 (08:16→21:38)
[2024-07-07] MEDS: levETIRAcetam 100 MG/ML SOLUTION 1000 MG GT ×2 (08:22→21:41)
[2024-07-07 12:00] VITALS: BP 110/70; PULSE 80; RESP 28; TEMP 36.4
--- NOTE | 2024-07-07 12:12 | PC.NURSE ---
Received resident renal panel sodium was 126 and potasium was 5.5, . made aware and order to give kayexalate 30grms x 1 dose then send to ER for electrolytes imbalance order noted and carried out, Ethan made aware and waiting for the bed at this time.
[2024-07-07] MEDS: SODIUM POLYSTYRENE SULFON/SORB 15 GM/60 ML ORAL.SUSP 30 GM GT (12:15)
--- NOTE | 2024-07-07 13:16 | PC.NURSE ---
Resident sent to E. around 4538, Family was notified.Loli Suzie (sister)
[2024-07-07] MEDS: SODIUM CHLORIDE 0.9% 1,000 ML BAG 1000 ML IRRIG (21:25)
[2024-07-07] MEDS: ACETAMINOPHEN 325 MG TABLET 650 MG GT (21:30)
[2024-07-07] MEDS: BUSPIRONE 10 MG TABLET GT (21:30)
[2024-07-07] MEDS: ATORVASTATIN 20 MG TABLET 40 MG GT (21:41)
--- NOTE | 2024-07-07 23:00 | PC.NURSE ---
Resident back from ER at 2030 via bed to room 116. Received report from Rod in ER that resident received total of 1L of NS, last Na+ level was 131, K+4.8, no visible signs of distress noted. Vitals BP: 162/67, HR 95, RR 35, Temp 98.0 and 97% on mechanical ventilator. Notified Dr Silverio of resident's status, new order to give 1L of NS throughout the night and repeat Renal at 0900, notify of results for further instructions and start resident on minimum of 450 NS GT flushes QS.
[2024-07-08] VITALS (8 sets, daily range): BP systolic 92–130; BP diastolic 56–79; PULSE 69–95; RESP 24–37; TEMP 36.1–36.7; O2SAT 97–99
[2024-07-08] MEDS: VALPROIC ACID 250 MG/5 ML 500 MG GT ×3 (05:45→21:28)
[2024-07-08 07:50] LABS: Albumin, Serum 3.3 gm/dL (3.4-4.8); Anion Gap 7 (7-16); BUN/Creatinine Ratio 28 Ratio (12-20); Blood Urea Nitrogen 14 mg/dL (9-23); Calcium 8.6 mg/dL (8.3-10.6); Calcium (Corrected) 9.2 mg/dL (8.5-10.1); Carbon Dioxide 29.5 mMol/L (20.0-31.0); Chloride 94 mMol/L (98-107); Creatinine (Component) 0.5 mg/dL (0.6-1.3); Estimated Creatinine Clearance 110.1 mL/min (>60); Glucose 137 mg/dL (74-106); Osmolality,Calculated 263 (275-295); Phosphorous 4.3 mg/dL (2.4-5.1); Potassium 4.5 mMol/L (3.4-5.1); Sodium 130 mMol/L (136-145); eGFR > 60 See Note
[2024-07-08] MEDS: ASPIRIN 81 MG TAB.CHEW GT (08:49)
[2024-07-08] MEDS: HEPARIN 5,000 UNIT/ML VIAL 5000 UNIT SC ×2 (08:54→21:29)
[2024-07-08] MEDS: levETIRAcetam 100 MG/ML SOLUTION 1000 MG GT ×2 (08:55→21:28)
[2024-07-08] MEDS: ATORVASTATIN 20 MG TABLET 40 MG GT (21:28)
[2024-07-09] VITALS (8 sets, daily range): BP systolic 90–150; BP diastolic 56–86; PULSE 74–97; RESP 26–33; TEMP 36.1–36.5; O2SAT 96–99
[2024-07-09] MEDS: VALPROIC ACID 250 MG/5 ML 500 MG GT ×3 (05:31→21:15)
[2024-07-09] MEDS: ASPIRIN 81 MG TAB.CHEW GT (08:27)
[2024-07-09] MEDS: HEPARIN 5,000 UNIT/ML VIAL 5000 UNIT SC ×2 (08:29→21:15)
[2024-07-09] MEDS: levETIRAcetam 100 MG/ML SOLUTION 1000 MG GT ×2 (08:30→21:15)
[2024-07-09] MEDS: BUSPIRONE 10 MG TABLET GT (21:15)
[2024-07-09] MEDS: ACETAMINOPHEN 325 MG TABLET 650 MG GT (21:15)
[2024-07-09] MEDS: ATORVASTATIN 20 MG TABLET 40 MG GT (21:15)
[2024-07-10] VITALS (8 sets, daily range): BP systolic 111–120; BP diastolic 65–81; PULSE 64–91; RESP 23–47; TEMP 36–36.3; O2SAT 95–98
[2024-07-10] MEDS: VALPROIC ACID 250 MG/5 ML 500 MG GT ×3 (05:40→21:32)
[2024-07-10 06:45] LABS: Albumin, Serum 3.4 gm/dL (3.4-4.8); Anion Gap 5 (7-16); BUN/Creatinine Ratio 27 Ratio (12-20); Blood Urea Nitrogen 16 mg/dL (9-23); Calcium 8.7 mg/dL (8.3-10.6); Calcium (Corrected) 9.2 mg/dL (8.5-10.1); Carbon Dioxide 31.4 mMol/L (20.0-31.0); Chloride 99 mMol/L (98-107); Creatinine (Component) 0.6 mg/dL (0.6-1.3); Estimated Creatinine Clearance 91.7 mL/min (>60); Glucose 143 mg/dL (74-106); Osmolality,Calculated 273 (275-295); Phosphorous 4.3 mg/dL (2.4-5.1); Potassium 4.6 mMol/L (3.4-5.1); Sodium 135 mMol/L (136-145); eGFR > 60 See Note
[2024-07-10] MEDS: ASPIRIN 81 MG TAB.CHEW GT (09:18)
[2024-07-10] MEDS: levETIRAcetam 100 MG/ML SOLUTION 1000 MG GT ×2 (09:20→21:33)
[2024-07-10] MEDS: HEPARIN 5,000 UNIT/ML VIAL 5000 UNIT SC ×2 (09:20→21:35)
[2024-07-10] MEDS: MAGNESIUM HYDROXIDE 30 ML ORAL SUSP ML GT (11:27)
[2024-07-10] MEDS: BUSPIRONE 10 MG TABLET GT ×2 (11:27→21:30)
--- NOTE | 2024-07-10 19:30 | PD.SAPROG ---
Progress Note - SubAcute DIAGNOSIS (1) Hyponatremia: Status: Chronic (2) Hyperkalemia: Status: Acute (3) Chronic respiratory failure: Status: Chronic (4) Ventilator dependent: Status: Chronic (5) Tracheostomy dependence: Status: Chronic (6) PEG (percutaneous endoscopic gastrostomy) status: Status: Chronic (7) Essential hypertension: Status: Chronic (8) Seizures: Status: Chronic (9) Chronic anoxic encephalopathy: Status: Chronic SUBJECTIVE Fever:: none Shortness of Breath:: none Pain:: none OBJECTIVE Most recent vital signs: Last Vital Signs Temp 97.3 F 07/14/24 06:00 Pulse 86 07/14/24 06:57 Resp 28 H 07/14/24 06:00 BP 130/78 07/14/24 06:00 Pulse Ox 98 07/14/24 06:57 O2 Del Method Mechanical Ventilation 07/13/24 06:00 FiO2 30 07/14/24 06:57 Neurological:: awake (orientation x 0, no cognitive response) Respiratory:: lungs clear Cardiovascular: RRR Abdomen: soft Extremities:: deformities Tracheostomy:: to ventilator Feeding per:: G tube Complaints:: none ASSESSMENT & PLAN Assessment: 69 yrs of age female being admitted with Hypertension/hyperlipidemia/epilepsy, recently treated in acute care for UTI sepsis and on Vancomycn On 07-07-24 pt was sent to ER for worsening hyponatremia inspite of replacement and hyperkalemia and pt returned the same day after iv correction of the above. Since then stable on replacement therapy. Plan: Current treatment reviewed and continued. Electrolyte disturbunces being addressed.
[2024-07-10] MEDS: ACETAMINOPHEN 325 MG TABLET 650 MG GT (21:30)
[2024-07-10] MEDS: ATORVASTATIN 20 MG TABLET 40 MG GT (21:33)
[2024-07-11] VITALS (8 sets, daily range): BP systolic 99–131; BP diastolic 62–79; PULSE 70–97; RESP 22–30; TEMP 36.1–36.3; O2SAT 98–100
[2024-07-11] MEDS: VALPROIC ACID 250 MG/5 ML 500 MG GT ×3 (05:55→21:40)
[2024-07-11] MEDS: ASPIRIN 81 MG TAB.CHEW GT (09:44)
[2024-07-11] MEDS: ERGOCALCIFEROL (VITAMIN D2) 1,250 MCG CAPSULE 1250 MCG GT (09:45)
[2024-07-11] MEDS: HEPARIN 5,000 UNIT/ML VIAL 5000 UNIT SC ×2 (09:47→21:41)
[2024-07-11] MEDS: levETIRAcetam 100 MG/ML SOLUTION 1000 MG GT ×2 (09:48→21:41)
[2024-07-11] MEDS: ACETAMINOPHEN 325 MG TABLET 650 MG GT (21:40)
[2024-07-11] MEDS: BUSPIRONE 10 MG TABLET GT (21:40)
[2024-07-11] MEDS: CHOLECALCIFEROL (VITAMIN D3) 25 MCG TABLET GT (21:41)
[2024-07-11] MEDS: ATORVASTATIN 20 MG TABLET 40 MG GT (21:41)
[2024-07-12] VITALS (8 sets, daily range): BP systolic 95–134; BP diastolic 56–72; PULSE 71–94; RESP 24–35; TEMP 36.4–36.8; O2SAT 94–98
[2024-07-12] MEDS: VALPROIC ACID 250 MG/5 ML 500 MG GT ×3 (05:59→21:16)
[2024-07-12] MEDS: ASPIRIN 81 MG TAB.CHEW GT (08:48)
[2024-07-12] MEDS: levETIRAcetam 100 MG/ML SOLUTION 1000 MG GT ×2 (08:49→20:29)
[2024-07-12] MEDS: CHOLECALCIFEROL (VITAMIN D3) 25 MCG TABLET GT ×2 (08:49→20:27)
[2024-07-12] MEDS: HEPARIN 5,000 UNIT/ML VIAL 5000 UNIT SC ×2 (08:53→20:28)
[2024-07-12] MEDS: BUSPIRONE 10 MG TABLET GT (13:27)
[2024-07-12] MEDS: ACETAMINOPHEN 325 MG TABLET 650 MG GT (13:27)
--- NOTE | 2024-07-12 14:39 | PC.SS ---
Resident is laying in bed with head of the bed elevated with call light properly placed with no signs of distress. Resident has trach in place and GT for medication and nutrition. Resident is non verbal unable to make decisions for self. Resident will remain in current care and will continue to have all subacute care needs met by staff. This SSD will make daily contact with resident and will monitor for changes in mood and behavior.
--- NOTE | 2024-07-12 15:48 | PC.NURSE ---
Order received from Dr gonzalez to check CBC to follow up on WBC and CMP to follow up on sodium level on 07/16/24
[2024-07-12] MEDS: ATORVASTATIN 20 MG TABLET 40 MG GT (20:27)
[2024-07-13] VITALS (8 sets, daily range): BP systolic 96–117; BP diastolic 62–76; PULSE 67–95; RESP 20–32; TEMP 36.1–36.8; O2SAT 97–99
[2024-07-13] MEDS: VALPROIC ACID 250 MG/5 ML 500 MG GT ×3 (05:23→21:40)
[2024-07-13] MEDS: ASPIRIN 81 MG TAB.CHEW GT (09:19)
[2024-07-13] MEDS: BUSPIRONE 10 MG TABLET GT (09:19)
[2024-07-13] MEDS: ACETAMINOPHEN 325 MG TABLET 650 MG GT (09:19)
[2024-07-13] MEDS: CHOLECALCIFEROL (VITAMIN D3) 25 MCG TABLET GT ×2 (09:19→21:40)
[2024-07-13] MEDS: levETIRAcetam 100 MG/ML SOLUTION 1000 MG GT ×3 (09:20→21:39)
[2024-07-13] MEDS: HEPARIN 5,000 UNIT/ML VIAL 5000 UNIT SC ×2 (09:22→21:40)
[2024-07-13] MEDS: ATORVASTATIN 20 MG TABLET 40 MG GT (21:40)
[2024-07-14] VITALS (7 sets, daily range): BP systolic 122–133; BP diastolic 74–78; PULSE 79–99; RESP 26–33; TEMP 36.1–36.9; O2SAT 97–99
[2024-07-14] MEDS: VALPROIC ACID 250 MG/5 ML 500 MG GT ×3 (05:39→21:44)
[2024-07-14] MEDS: CHOLECALCIFEROL (VITAMIN D3) 25 MCG TABLET GT ×2 (09:24→21:45)
[2024-07-14] MEDS: ASPIRIN 81 MG TAB.CHEW GT (09:24)
[2024-07-14] MEDS: HEPARIN 5,000 UNIT/ML VIAL 5000 UNIT SC ×2 (09:25→21:48)
[2024-07-14] MEDS: levETIRAcetam 100 MG/ML SOLUTION 1000 MG GT ×2 (09:26→21:47)
--- NOTE | 2024-07-14 11:50 | ESPR_ITS ---
Progress Note - SubAcute DIAGNOSIS (1) Hyponatremia: Status: Chronic (2) Hyperkalemia: Status: Acute (3) Chronic respiratory failure: Status: Chronic (4) Ventilator dependent: Status: Chronic (5) Tracheostomy dependence: Status: Chronic (6) PEG (percutaneous endoscopic gastrostomy) status: Status: Chronic (7) Essential hypertension: Status: Chronic (8) Seizures: Status: Chronic (9) Chronic anoxic encephalopathy: Status: Chronic SUBJECTIVE Fever:: none Shortness of Breath:: none Pain:: none OBJECTIVE Most recent vital signs: Last Vital Signs Temp 97.3 F 07/14/24 06:00 Pulse 86 07/14/24 06:57 Resp 28 H 07/14/24 06:00 BP 130/78 07/14/24 06:00 Pulse Ox 98 07/14/24 06:57 O2 Del Method Mechanical Ventilation 07/13/24 06:00 FiO2 30 07/14/24 06:57 Neurological:: awake (orientation x 0, no cognitive response) Respiratory:: lungs clear Cardiovascular: RRR Abdomen: soft Extremities:: deformities Tracheostomy:: to ventilator Feeding per:: G tube Complaints:: none ASSESSMENT & PLAN Assessment: 69 yrs of age female being admitted with Hypertension/hyperlipidemia/epilepsy, recently treated in acute care for UTI sepsis and on Vancomycn On 07-07-24 pt was sent to ER for worsening hyponatremia inspite of replacement and hyperkalemia and pt returned the same day after iv correction of the above. Since then stable on replacement therapy. No new issues Plan: Current treatment reviewed and continued. Electrolyte disturbunces being addr essed.
[2024-07-14] MEDS: ATORVASTATIN 20 MG TABLET 40 MG GT (21:45)
[2024-07-14] MEDS: ACETAMINOPHEN 325 MG TABLET 650 MG GT (21:46)
[2024-07-15] VITALS (8 sets, daily range): BP systolic 102–119; BP diastolic 58–76; PULSE 83–97; RESP 24–34; TEMP 36.4–36.9; O2SAT 95–98; BMI 32.4
[2024-07-15] MEDS: VALPROIC ACID 250 MG/5 ML 500 MG GT ×3 (05:53→21:46)
[2024-07-15] MEDS: levETIRAcetam 100 MG/ML SOLUTION 1000 MG GT ×2 (10:16→21:54)
[2024-07-15] MEDS: ASPIRIN 81 MG TAB.CHEW GT (10:16)
[2024-07-15] MEDS: CHOLECALCIFEROL (VITAMIN D3) 25 MCG TABLET GT ×2 (10:16→21:48)
[2024-07-15] MEDS: HEPARIN 5,000 UNIT/ML VIAL 5000 UNIT SC ×2 (10:17→21:52)
[2024-07-15] MEDS: MAGNESIUM HYDROXIDE 30 ML ORAL SUSP ML GT (10:20)
[2024-07-15] MEDS: ATORVASTATIN 20 MG TABLET 40 MG GT (21:47)
[2024-07-15] MEDS: ACETAMINOPHEN 325 MG TABLET 650 MG GT (21:54)
[2024-07-16] VITALS (9 sets, daily range): BP systolic 99–113; BP diastolic 61–78; PULSE 78–104; RESP 23–39; TEMP 36.1–36.5; O2SAT 96–99
[2024-07-16] MEDS: BUSPIRONE 10 MG TABLET GT (00:41)
[2024-07-16] MEDS: VALPROIC ACID 250 MG/5 ML 500 MG GT ×3 (05:37→21:48)
[2024-07-16 07:00] LABS: Basophils # (Auto) 0.1 Thou/mm3 (0.0-0.2); Basophils % (Auto) 1 % (0-2.5); Eosinophils # (Auto) 0.4 Thou/mm3 (0.0-0.5); Eosinophils % (Auto) 3 % (0-10); Hematocrit 27.6 % (36.0-46.0); Immature Granulocytes % (Auto) 4 % (0-0); Immature Granulocytes Auto 0.48 Thou/mm3 (0.00-0.00); Lymphocytes # (Auto) 2.6 Thou/mm3 (1.0-4.8); Lymphocytes % (Auto) 19 % (10-50); Mean Corpuscular HGB Conc 31.9 g/dl (31.0-37.0); Mean Corpuscular Hemoglobin 29.8 pg (25.0-35.0); Mean Corpuscular Volume 94 fL (80-100); Monocytes # (Auto) 2.4 Thou/mm3 (0.0-0.8); Monocytes % (Auto) 18 % (0-12); Neutrophils # (Auto) 7.8 Thou/mm3 (1.8-7.7); Neutrophils % (Auto) 57 % (37-80); Nucleated Red Blood Cell # 0.02 Thou/mm3 (0.00-0.00); Nucleated Red Blood Cell % 0 /100 WBC (0); Platelet Count 269 Thou/mm3 (140-440); RDW Standard Deviation 61.1 fL (36.4-46.3); Red Blood Count 2.95 Miln/mm3 (4.00-5.20); White Blood Count 13.8 Thou/mm3 (3.6-11.0)
[2024-07-16 07:32] LABS: Alanine Aminotransferase < 7 U/L (10-49); Albumin, Serum 3.4 gm/dL (3.4-4.8); Albumin/Globulin Ratio 1.2 (1.2-2.2); Alkaline Phosphatase 57 U/L (46-116); Anion Gap 7 (7-16); Aspartate Amino Transferase 17 U/L (0-34); BUN/Creatinine Ratio 38 Ratio (12-20); Bilirubin,Total 0.2 mg/dL (0.3-1.2); Blood Urea Nitrogen 23 mg/dL (9-23); Calcium 8.9 mg/dL (8.3-10.6); Calcium (Corrected) 9.4 mg/dL (8.5-10.1); Carbon Dioxide 31.5 mMol/L (20.0-31.0); Chloride 102 mMol/L (98-107); Creatinine (Component) 0.6 mg/dL (0.6-1.3); Estimated Creatinine Clearance 92.7 mL/min (>60); Globulin 2.8 gm/dL (2.3-3.5); Glucose 122 mg/dL (74-106); Osmolality,Calculated 284 (275-295); Potassium 4.6 mMol/L (3.4-5.1); Sodium 140 mMol/L (136-145); Total Protein 6.2 gm/dL (5.7-8.2); eGFR > 60 See Note
[2024-07-16 07:40] LABS: Hemoglobin 8.8 g/dL (12.0-16.0)
[2024-07-16] MEDS: ASPIRIN 81 MG TAB.CHEW GT (09:44)
[2024-07-16] MEDS: CHOLECALCIFEROL (VITAMIN D3) 25 MCG TABLET GT ×2 (09:44→21:49)
[2024-07-16] MEDS: HEPARIN 5,000 UNIT/ML VIAL 5000 UNIT SC ×2 (09:47→21:50)
[2024-07-16] MEDS: levETIRAcetam 100 MG/ML SOLUTION 1000 MG GT ×2 (09:47→21:11)
[2024-07-16] MEDS: ATORVASTATIN 20 MG TABLET 40 MG GT (21:49)
--- NOTE | 2024-07-16 22:08 | PC.NURSE ---
IV removed to left hand, cath intact, no c/o pain, resident in room resting, call light within reach, HOB elevated.
[2024-07-17] VITALS (7 sets, daily range): BP systolic 127–148; BP diastolic 74–89; PULSE 78–103; RESP 28–87; TEMP 36–36.6; O2SAT 96–99
[2024-07-17] MEDS: VALPROIC ACID 250 MG/5 ML 500 MG GT ×3 (05:28→21:39)
[2024-07-17] MEDS: ASPIRIN 81 MG TAB.CHEW GT (09:45)
[2024-07-17] MEDS: CHOLECALCIFEROL (VITAMIN D3) 25 MCG TABLET GT ×2 (09:46→21:39)
[2024-07-17] MEDS: HEPARIN 5,000 UNIT/ML VIAL 5000 UNIT SC ×2 (09:46→21:39)
[2024-07-17] MEDS: levETIRAcetam 100 MG/ML SOLUTION 1000 MG GT ×2 (09:48→21:39)
--- NOTE | 2024-07-17 13:26 | PC.SS ---
Resident was seen by proposal specialist for initial consultation. No changes resident to continue current care.
[2024-07-17 14:19] LABS: Vitamin D 25 Hydroxy Total 49.5 ng/mL (7.3-40.2)
[2024-07-17] MEDS: ATORVASTATIN 20 MG TABLET 40 MG GT (21:40)
[2024-07-17] MEDS: ACETAMINOPHEN 325 MG TABLET 650 MG GT (21:51)
[2024-07-17] MEDS: BUSPIRONE 10 MG TABLET GT (21:52)
[2024-07-18] VITALS (8 sets, daily range): BP systolic 90–110; BP diastolic 58–70; PULSE 62–86; RESP 23–36; TEMP 36.3–36.4; O2SAT 95–98
[2024-07-18] MEDS: ACETAMINOPHEN 325 MG TABLET 650 MG GT ×2 (05:42→20:15)
[2024-07-18] MEDS: VALPROIC ACID 250 MG/5 ML 500 MG GT ×3 (05:42→21:09)
[2024-07-18] MEDS: ASPIRIN 81 MG TAB.CHEW GT (09:10)
[2024-07-18] MEDS: HEPARIN 5,000 UNIT/ML VIAL 5000 UNIT SC ×2 (09:11→21:10)
[2024-07-18] MEDS: CHOLECALCIFEROL (VITAMIN D3) 25 MCG TABLET GT ×2 (09:11→20:16)
[2024-07-18] MEDS: levETIRAcetam 100 MG/ML SOLUTION 1000 MG GT ×2 (09:11→20:15)
[2024-07-18] MEDS: BUSPIRONE 10 MG TABLET GT (20:15)
[2024-07-18] MEDS: ATORVASTATIN 20 MG TABLET 40 MG GT (20:16)
--- NOTE | 2024-07-18 23:06 | PD.SAPROG ---
Progress Note - SubAcute DIAGNOSIS (1) Hyponatremia: Status: Inactive (2) Hyperkalemia: Status: Inactive (3) Chronic respiratory failure: Status: Chronic (4) Ventilator dependent: Status: Chronic (5) Tracheostomy dependence: Status: Chronic (6) PEG (percutaneous endoscopic gastrostomy) status: Status: Chronic (7) Essential hypertension: Status: Chronic (8) Seizures: Status: Chronic (9) Chronic anoxic encephalopathy: Status: Chronic SUBJECTIVE Fever:: none Shortness of Breath:: none Pain:: none OBJECTIVE Most recent vital signs: Last Vital Signs Temp 97.3 F 07/18/24 18:00 Pulse 76 07/18/24 19:40 Resp 27 H 07/18/24 18:00 BP 106/67 07/18/24 18:00 Pulse Ox 96 07/18/24 19:40 O2 Del Method Mechanical Ventilation 07/17/24 18:00 FiO2 30 07/18/24 19:40 Neurological:: awake (orientation x 0, no cognitive response) Respiratory:: lungs clear Cardiovascular: RRR Abdomen: soft Extremities:: deformities Tracheostomy:: to ventilator Feeding per:: G tube Complaints:: none ASSESSMENT & PLAN Assessment: 69 yrs of age female being admitted with Hypertension/hyperlipidemia/epilepsy, recently treated in acute care for UTI sepsis and on Vancomycn On 07-07-24 pt was sent to ER for worsening hyponatremia inspite of replacement and hyperkalemia and pt returned the same day after iv correction of the above. Since then stable on replacement therapy. No new issues. No recent seizure activity. Plan: Current treatment reviewed and continued. Electrolyte disturbunces being addressed.
[2024-07-19] VITALS: BP 100/68; PULSE 67; RESP 21; TEMP 36.3
[2024-07-19 00:33] VITALS: PULSE 75; RESP 31; O2SAT 95
[2024-07-19] MEDS: VALPROIC ACID 250 MG/5 ML 500 MG GT ×3 (05:38→21:35)
[2024-07-19 06:00] VITALS: BP 91/61; PULSE 75; RESP 26; TEMP 36.2; O2SAT 98
[2024-07-19 06:52] VITALS: PULSE 78; RESP 28; O2SAT 96
[2024-07-19] MEDS: HEPARIN 5,000 UNIT/ML VIAL 5000 UNIT SC ×2 (08:20→21:33)
[2024-07-19] MEDS: ASPIRIN 81 MG TAB.CHEW GT (08:21)
[2024-07-19] MEDS: CHOLECALCIFEROL (VITAMIN D3) 25 MCG TABLET GT ×2 (08:21→21:32)
[2024-07-19] MEDS: levETIRAcetam 100 MG/ML SOLUTION 1000 MG GT ×2 (08:22→21:34)
--- NOTE | 2024-07-19 11:32 | PC.NURSE ---
Noted resident eyes with yellow thick secretions for several days, to a point resident unable to open her eyes. MD aware. swabbed both eyes to sent to lab for stain and culture. NO redness to eyes noted at this time. Will continue to monitor.
[2024-07-19 12:00] VITALS: BP 117/71; PULSE 89; RESP 31; TEMP 36.4
[2024-07-19 12:39] VITALS: PULSE 83; RESP 26; O2SAT 97
[2024-07-19] MEDS: ATORVASTATIN 20 MG TABLET 40 MG GT (21:30)
[2024-07-19] MEDS: ACETAMINOPHEN 325 MG TABLET 650 MG GT (23:15)
[2024-07-20] VITALS: BP 111/71; PULSE 84; RESP 34; TEMP 36.1
[2024-07-20 01:05] VITALS: PULSE 85; RESP 33; O2SAT 96
[2024-07-20] MEDS: BUSPIRONE 10 MG TABLET GT (01:07)
[2024-07-20] MEDS: VALPROIC ACID 250 MG/5 ML 500 MG GT ×3 (05:11→21:33)
[2024-07-20 06:00] VITALS: BP 102/67; PULSE 86; RESP 34; TEMP 35.8; O2SAT 97
[2024-07-20 06:53] VITALS: PULSE 79; RESP 27; O2SAT 97
[2024-07-20] MEDS: CHOLECALCIFEROL (VITAMIN D3) 25 MCG TABLET GT ×2 (09:12→21:29)
[2024-07-20] MEDS: ASPIRIN 81 MG TAB.CHEW GT (09:12)
[2024-07-20] MEDS: levETIRAcetam 100 MG/ML SOLUTION 1000 MG GT (09:13)
[2024-07-20] MEDS: HEPARIN 5,000 UNIT/ML VIAL 5000 UNIT SC ×2 (09:15→21:31)
[2024-07-20 12:34] VITALS: PULSE 81; RESP 29; O2SAT 96
[2024-07-20] MEDS: DEX/HYPRO/GLY ARTIFICAL TEARS 225 DROP/15 ML BTL BOTH EYES ×2 (14:01→21:32)
[2024-07-20 19:53] VITALS: PULSE 86; RESP 36; O2SAT 97
[2024-07-20] MEDS: ATORVASTATIN 20 MG TABLET 40 MG GT (21:29)
[2024-07-20] MEDS: ACETAMINOPHEN 325 MG TABLET 650 MG GT (21:33)
[2024-07-21] VITALS: BP 112/67; PULSE 85; PULSE 86; RESP 30; RESP 33; TEMP 36.2; O2SAT 96
[2024-07-21] MEDS: DEX/HYPRO/GLY ARTIFICAL TEARS 225 DROP/15 ML BTL BOTH EYES ×3 (05:34→21:16)
[2024-07-21] MEDS: VALPROIC ACID 250 MG/5 ML 500 MG GT ×3 (05:34→21:16)
[2024-07-21 05:46] VITALS: BP 138/78; PULSE 83; RESP 30; TEMP 36.2
[2024-07-21 06:57] VITALS: PULSE 82; RESP 29; O2SAT 97
[2024-07-21] MEDS: HEPARIN 5,000 UNIT/ML VIAL 5000 UNIT SC ×2 (09:00→21:16)
[2024-07-21] MEDS: ASPIRIN 81 MG TAB.CHEW GT (09:18)
[2024-07-21] MEDS: CHOLECALCIFEROL (VITAMIN D3) 25 MCG TABLET GT ×2 (09:18→21:16)
[2024-07-21] MEDS: levETIRAcetam 100 MG/ML SOLUTION 1000 MG GT ×2 (09:18→21:16)
[2024-07-21 13:20] VITALS: PULSE 84; RESP 31; O2SAT 96
[2024-07-21 19:18] VITALS: PULSE 83; RESP 34; O2SAT 97
[2024-07-21] MEDS: ATORVASTATIN 20 MG TABLET 40 MG GT (21:16)
[2024-07-21] MEDS: BUSPIRONE 10 MG TABLET GT (21:16)
[2024-07-22] VITALS (8 sets, daily range): BP systolic 98–112; BP diastolic 64–74; PULSE 77–90; RESP 18–35; TEMP 36–36.6; O2SAT 96–98
[2024-07-22] MEDS: DEX/HYPRO/GLY ARTIFICAL TEARS 225 DROP/15 ML BTL BOTH EYES ×3 (05:26→21:47)
[2024-07-22] MEDS: VALPROIC ACID 250 MG/5 ML 500 MG GT ×3 (05:27→21:47)
[2024-07-22] MEDS: HEPARIN 5,000 UNIT/ML VIAL 5000 UNIT SC ×2 (09:27→21:42)
[2024-07-22] MEDS: BUSPIRONE 10 MG TABLET GT (09:33)
[2024-07-22] MEDS: ASPIRIN 81 MG TAB.CHEW GT (09:33)
[2024-07-22] MEDS: CHOLECALCIFEROL (VITAMIN D3) 25 MCG TABLET GT ×2 (09:33→21:41)
[2024-07-22] MEDS: levETIRAcetam 100 MG/ML SOLUTION 1000 MG GT ×2 (09:34→21:47)
--- NOTE | 2024-07-22 10:35 | PC.IP ---
Noted in morning report resident experiencing bilateral purulent drainage from eyes x 2-3 days. Cultures performed and result of pos Cocci 3+ OD; pos MRSA 2+ OS. Information for susceptibility to [employer] biometrics technician nurse for possible treatment for systemic or localized per MD preference. Resident is in Contact Isolation.
[2024-07-22] MEDS: ATORVASTATIN 20 MG TABLET 40 MG GT (21:40)
[2024-07-22] MEDS: ACETAMINOPHEN 325 MG TABLET 650 MG GT (21:51)
--- NOTE | 2024-07-22 22:00 | PD.SAPROG ---
Progress Note - SubAcute DIAGNOSIS (1) Hyponatremia: Status: Inactive (2) Hyperkalemia: Status: Inactive (3) Chronic respiratory failure: Status: Chronic (4) Ventilator dependent: Status: Chronic (5) Tracheostomy dependence: Status: Chronic (6) PEG (percutaneous endoscopic gastrostomy) status: Status: Chronic (7) Essential hypertension: Status: Chronic (8) Seizures: Status: Chronic (9) Chronic anoxic encephalopathy: Status: Chronic SUBJECTIVE Fever:: none Shortness of Breath:: none Pain:: none OBJECTIVE Most recent vital signs: Last Vital Signs Temp 96.8 F 07/22/24 18:00 Pulse 81 07/22/24 19:57 Resp 27 H 07/22/24 18:00 BP 101/65 07/22/24 18:00 Pulse Ox 97 07/22/24 19:57 O2 Del Method Mechanical Ventilation 07/22/24 18:00 FiO2 30 07/22/24 19:57 Neurological:: awake (orientation x 0, no cognitive response) Respiratory:: lungs clear Cardiovascular: RRR Abdomen: soft Extremities:: deformities Tracheostomy:: to ventilator Feeding per:: G tube Complaints:: none ASSESSMENT & PLAN Assessment: 69 yrs of age female being admitted with Hypertension/hyperlipidemia/epilepsy, recently treated in acute care for UTI sepsis and on Vancomycn On 07-07-24 pt was sent to ER for worsening hyponatremia inspite of replacement and hyperkalemia and pt returned the same day after iv correction of the above. Since then stable on replacement therapy. No new issues. No recent seizure activity.VSS Plan: Current treatment reviewed and continued. Electrolyte disturbunces being addressed.
[2024-07-23] VITALS (8 sets, daily range): BP systolic 87–153; BP diastolic 56–93; PULSE 66–111; RESP 28–38; TEMP 36.4–36.8; O2SAT 95–99; BMI 32.4
[2024-07-23] MEDS: guaiFENesin Liq 100 MG/5 ML LIQUID 300 MG GT (00:13)
[2024-07-23] MEDS: BUSPIRONE 10 MG TABLET GT ×3 (00:14→21:39)
[2024-07-23] MEDS: GENTAMICIN 0.3% OPHTH DROPS 75 DROP/5 ML BTL OPHTHALMIC ×4 (05:30→21:41)
[2024-07-23] MEDS: VALPROIC ACID 250 MG/5 ML 500 MG GT ×3 (05:31→21:42)
[2024-07-23] MEDS: ASPIRIN 81 MG TAB.CHEW GT (09:07)
[2024-07-23] MEDS: CHOLECALCIFEROL (VITAMIN D3) 25 MCG TABLET GT ×2 (09:07→21:41)
[2024-07-23] MEDS: HEPARIN 5,000 UNIT/ML VIAL 5000 UNIT SC ×2 (09:08→21:42)
[2024-07-23] MEDS: levETIRAcetam 100 MG/ML SOLUTION 1000 MG GT ×2 (09:10→21:41)
[2024-07-23] MEDS: DEX/HYPRO/GLY ARTIFICAL TEARS 225 DROP/15 ML BTL BOTH EYES ×2 (13:54→21:39)
[2024-07-23] MEDS: ACETAMINOPHEN 325 MG TABLET 650 MG GT (16:35)
[2024-07-23] MEDS: ATORVASTATIN 20 MG TABLET 40 MG GT (21:39)
[2024-07-24] VITALS: BP 118/80; PULSE 91; RESP 34; TEMP 36.4; O2SAT 97
[2024-07-24 02:05] VITALS: PULSE 68; RESP 37; O2SAT 98
[2024-07-24] MEDS: DEX/HYPRO/GLY ARTIFICAL TEARS 225 DROP/15 ML BTL BOTH EYES (05:39)
[2024-07-24] MEDS: GENTAMICIN 0.3% OPHTH DROPS 75 DROP/5 ML BTL OPHTHALMIC ×4 (05:40→20:44)
[2024-07-24] MEDS: VALPROIC ACID 250 MG/5 ML 500 MG GT ×3 (05:42→21:13)
[2024-07-24 05:59] VITALS: BP 135/76; PULSE 96; RESP 35; TEMP 36.4; O2SAT 97
[2024-07-24 07:26] VITALS: PULSE 69; RESP 34; O2SAT 97
[2024-07-24] MEDS: ASPIRIN 81 MG TAB.CHEW GT (08:47)
[2024-07-24] MEDS: BUSPIRONE 10 MG TABLET GT ×2 (08:47→20:43)
[2024-07-24] MEDS: CHOLECALCIFEROL (VITAMIN D3) 25 MCG TABLET GT ×2 (08:48→20:44)
[2024-07-24] MEDS: HEPARIN 5,000 UNIT/ML VIAL 5000 UNIT SC ×2 (08:48→21:13)
[2024-07-24] MEDS: levETIRAcetam 100 MG/ML SOLUTION 1000 MG GT ×2 (08:48→20:45)
[2024-07-24 12:46] VITALS: PULSE 68; RESP 33; O2SAT 97
[2024-07-24 18:35] VITALS: PULSE 65; RESP 34; O2SAT 98
[2024-07-24] MEDS: ATORVASTATIN 20 MG TABLET 40 MG GT (20:43)
[2024-07-24] MEDS: ACETAMINOPHEN 325 MG TABLET 650 MG GT (21:43)
--- NOTE | 2024-07-24 22:56 | PD.SAPROG ---
Progress Note - SubAcute DIAGNOSIS (1) Hyponatremia: Status: Inactive (2) Hyperkalemia: Status: Inactive (3) Chronic respiratory failure: Status: Chronic (4) Ventilator dependent: Status: Chronic (5) Tracheostomy dependence: Status: Chronic (6) PEG (percutaneous endoscopic gastrostomy) status: Status: Chronic (7) Essential hypertension: Status: Chronic (8) Seizures: Status: Chronic (9) Chronic anoxic encephalopathy: Status: Chronic SUBJECTIVE Fever:: none Shortness of Breath:: none Pain:: none OBJECTIVE Most recent vital signs: Last Vital Signs Temp 97.5 F 07/24/24 05:59 Pulse 65 07/24/24 18:35 Resp 35 H 07/24/24 05:59 BP 135/76 H 07/24/24 05:59 Pulse Ox 98 07/24/24 18:35 O2 Del Method Mechanical Ventilation 07/24/24 05:59 FiO2 30 07/24/24 18:35 Neurological:: awake (orientation x 0, no cognitive response) Respiratory:: lungs clear Cardiovascular: RRR Abdomen: soft Extremities:: deformities Tracheostomy:: to ventilator Feeding per:: G tube Complaints:: none ASSESSMENT & PLAN Assessment: 69 yrs of age female being admitted with Hypertension/hyperlipidemia/epilepsy, recently treated in acute care for UTI sepsis and on Vancomycn On 07-07-24 pt was sent to ER for worsening hyponatremia inspite of replacement and hyperkalemia and pt returned the same day after iv correction of the above. Since then stable on replacement therapy. No new issues. No recent seizure activity.VSS Plan: Current treatment reviewed and continued. Electrolyte disturbunces being addressed.
[2024-07-25] VITALS (8 sets, daily range): BP systolic 107–125; BP diastolic 57–72; PULSE 76–117; RESP 29–40; TEMP 35.9–37; O2SAT 95–99
[2024-07-25] MEDS: GENTAMICIN 0.3% OPHTH DROPS 75 DROP/5 ML BTL OPHTHALMIC ×2 (05:18→20:04)
[2024-07-25] MEDS: VALPROIC ACID 250 MG/5 ML 500 MG GT ×3 (05:20→21:20)
[2024-07-25] MEDS: IPRATROPIUM/ALBUTEROL 3 ML AMPUL.NEB INH ×3 (06:34→19:36)
[2024-07-25] MEDS: ACETYLCYSTEINE 10% 3 ML VIAL INH ×3 (06:34→19:36)
[2024-07-25] MEDS: CHOLECALCIFEROL (VITAMIN D3) 25 MCG TABLET GT ×2 (08:16→20:04)
[2024-07-25] MEDS: BUSPIRONE 10 MG TABLET GT ×2 (08:16→20:03)
[2024-07-25] MEDS: HEPARIN 5,000 UNIT/ML VIAL 5000 UNIT SC ×2 (08:16→20:04)
[2024-07-25] MEDS: ACETAMINOPHEN 325 MG TABLET 650 MG GT ×2 (08:16→19:50)
[2024-07-25] MEDS: ASPIRIN 81 MG TAB.CHEW GT (08:16)
[2024-07-25] MEDS: levETIRAcetam 100 MG/ML SOLUTION 1000 MG GT ×2 (08:17→20:04)
--- NOTE | 2024-07-25 14:59 | PC.SS ---
Resident is laying in bed with head of the bed elevated with call light placed with no signs of distress. Resident remains on vent with trach in place and GT for medication and nutrition. Resident is non verbal unable to make needs known. Her sister is her decision maker. Resident has no changes in care or condition and will remain in current care and will have all subacute care needs met by staff. This SSD will continue make daily contact and will monitor for changes in mood and behavior.
[2024-07-25] MEDS: INSULN SC (17:16)
[2024-07-25] MEDS: INSULIN LISPRO 100 UNIT/ML SC (17:16)
[2024-07-25] MEDS: ATORVASTATIN 20 MG TABLET 40 MG GT (20:04)
[2024-07-26] VITALS: BP 115/66; PULSE 114; RESP 32; TEMP 37
[2024-07-26 00:02] VITALS: PULSE 121; PULSE 124; RESP 31; RESP 41; O2SAT 96; O2SAT 99
[2024-07-26] MEDS: ACETYLCYSTEINE 10% 3 ML VIAL INH ×2 (00:02→06:45)
[2024-07-26] MEDS: IPRATROPIUM/ALBUTEROL 3 ML AMPUL.NEB INH ×2 (00:02→06:49)
--- NOTE | 2024-07-26 01:55 | PC.NURSE ---
Resident has been awake and restless throughout the night. BP WNL, HR 123, RR 47, O2 sat 95%, denies pain at this time, when asked if she feels like it's difficult to breath resident nods her head yes, suctioned with no difficulty, RT administered breathing treatment, ventilator still alarming due to high RR, new order to give x1 dose of Ativan 1mg for increased respiratory rate.
[2024-07-26] MEDS: LORazepam 0.5 MG TABLET 1 MG GT (02:39)
[2024-07-26] MEDS: guaiFENesin Liq 100 MG/5 ML LIQUID 300 MG GT (02:41)
[2024-07-26] MEDS: GENTAMICIN 0.3% OPHTH DROPS 75 DROP/5 ML BTL OPHTHALMIC (05:03)
[2024-07-26] MEDS: VALPROIC ACID 250 MG/5 ML 500 MG GT (05:04)
[2024-07-26] MEDS: INSULIN LISPRO 100 UNIT/ML SC (05:55)
[2024-07-26] MEDS: INSULN SC (05:55)
[2024-07-26 06:00] VITALS: BP 150/81; PULSE 134; RESP 36; TEMP 39.1; O2SAT 95
--- NOTE | 2024-07-26 06:26 | PC.NURSE ---
Ativan was ordered one time and was given at 0240 due to high respirations. Respirations were above 45. BP was within normal range and HR was above normal range (115). temp was checked and was within normal range. after ativan was given respirations continued to be over 45. Vent alarm kept going off. at around 0540 vitals were checked and bp was elevated and so was her HR. temp was 102.3. cooling measures were done. will continue to monitor.
[2024-07-26 06:45] VITALS: PULSE 102; RESP 39; O2SAT 98
--- NOTE | 2024-07-26 06:51 | PC.NURSE ---
Resident received Ativan 1 mg at 0240 for increased RR, somewhat effective, RR decreased to 38, SALES REPRESENTATIVE [employer] reported this AM elevated temp of 102.3, cooling measures initiated-recheck temp in one hour. Resident is asleep at this time, RR decreased to 32, call light is within reach.
[2024-07-26 07:08] VITALS: TEMP 39.3
[2024-07-26] MEDS: ACETAMINOPHEN 325 MG TABLET 650 MG GT (07:08)
[2024-07-26 08:06] LABS: Collection Type, Urine Catheter
[2024-07-26 08:20] LABS: Basophils # (Auto) 0.1 Thou/mm3 (0.0-0.2); Basophils % (Auto) 0 % (0-2.5); Eosinophils # (Auto) 0.1 Thou/mm3 (0.0-0.5); Eosinophils % (Auto) 0 % (0-10); Hematocrit 25.6 % (36.0-46.0); Immature Granulocytes % (Auto) 2 % (0-0); Immature Granulocytes Auto 0.61 Thou/mm3 (0.00-0.00); Lymphocytes # (Auto) 2.6 Thou/mm3 (1.0-4.8); Lymphocytes % (Auto) 8 % (10-50); Mean Corpuscular HGB Conc 33.2 g/dl (31.0-37.0); Mean Corpuscular Hemoglobin 30.9 pg (25.0-35.0); Mean Corpuscular Volume 93 fL (80-100); Monocytes # (Auto) 4.6 Thou/mm3 (0.0-0.8); Monocytes % (Auto) 15 % (0-12); Neutrophils # (Auto) 23.7 Thou/mm3 (1.8-7.7); Neutrophils % (Auto) 75 % (37-80); Nucleated Red Blood Cell # 0.04 Thou/mm3 (0.00-0.00); Nucleated Red Blood Cell % 0 /100 WBC (0); Platelet Count 243 Thou/mm3 (140-440); RDW Standard Deviation 62.9 fL (36.4-46.3); Red Blood Count 2.75 Miln/mm3 (4.00-5.20); White Blood Count 31.8 Thou/mm3 (3.6-11.0)
[2024-07-26 08:20] LABS: Bilirubin,Urine Negative (Negative); Blood,Urine Trace (Negative); Budding Yeast,Urine Present; Clarity,Urine Clear (Clear/Hazy); Color,Urine Lt-Yellow (Lt Yel-Yel); Glucose, Urine 2+ (Negative); Ketones,Urine Negative (Negative); Leukocyte Esterase,Urine Positive (Negative); Nitrite,Urine Negative (Negative); PH,Urine 7.5 (5.0-7.0); Protein,Urine 1+ (Neg - Trace); RBC,Urine 10 /hpf (0-3); Specific Gravity,Urine 1.014 (1.001-1.035); Squamous Epithelial Cell,Urine < 1 /hpf (0-5); Urobilinogen,Urine Negative mg/dL (0.0-1.0); WBC,Urine 122 /hpf (0-5)
[2024-07-26 08:21] LABS: Hemoglobin 8.5 g/dL (12.0-16.0)
[2024-07-26 08:23] LABS: Culture Indicated,Urine Yes
[2024-07-26 08:28] LABS: Influenza A Ag Negative; Influenza B Ag Negative
[2024-07-26 08:28] LABS: COVID-19 Antigen (In-House) Negative (Negative)
[2024-07-26] MEDS: BUSPIRONE 10 MG TABLET GT (08:45)
[2024-07-26] MEDS: ASPIRIN 81 MG TAB.CHEW GT (08:45)
[2024-07-26] MEDS: HEPARIN 5,000 UNIT/ML VIAL 5000 UNIT SC (08:45)
[2024-07-26] MEDS: CHOLECALCIFEROL (VITAMIN D3) 25 MCG TABLET GT (08:45)
[2024-07-26 08:48] LABS: Procalcitonin 0.14 ng/ml (0.0-0.49)
--- NOTE | 2024-07-26 09:38 | PC.NURSE ---
Tylenol 650 mg PGT given at 07:08 for a temp of 102.8. B/P 141/64, 121, 40, O2 saturation 95% on mechanical ventilator. Cooling measures provided. Labs done with WBC of 31.8. Dr Silverio aware of the results. Called ER and gave report and was sent out to ER at 09:30 via [email or web address]. Latest V/S taken as follows 85/53, 78, 34, 100.5, O2 saturation 95%. Tried to call resident's responsible republican Gunjan and Suzie but unable to get hold of them. Left message on Suzie's voicemail to call us back.
--- NOTE | 2024-07-26 11:21 | PC.NURSE ---
Resident's sister Suzie called back and made aware that resident was sent out to ER.
--- NOTE | 2024-07-26 16:20 | PC.PT ---
PT eval withheld. Patient was checked at 9:30 for PT eval but patient was not in her room and was sent to the ER. Confirmed by nursing staff. Will re-attempt PT eval at another time.
--- NOTE | 2024-07-29 16:45 | PD.ADDDSCHGE ---
Addendum Discharge Addendum Date of report being addended: 07/29/24 Narrative: Attending's attestation: I reviewed labs, imaging, EKG, home medications and prior available records. Face to face evaluation was performed by me. I have personally examined the patient and discussed assessment and plan with the IM team. I reviewed the resident note and agree with the plan with exceptions as below. Brain injury Chronic encephalopathy Chronic hypoxic respiratory failure Status post tracheostomy and PEG tube insertion Sepsis Left lower lobe pneumonia Acute UTI Bilateral lower extremity swelling Consulted ID: Changed antibiotics to levofloxacin Follow-up blood, sputum, and urine cultures: Grew Pseudomonas that is sensitive to fluoroquinolones Trend WBC: Downtrending Continue Keppra and valproic acid Continue tube feeds and water flushes Time spent is 40 minutes. More than 50% of the time was spent on patient education and coordination of care.
--- NOTE | 2024-07-29 18:08 | ESDS_ITS ---
Planned Discharge Date 07/29/24 DS: Providers Provider Date of admission: 07/05/24 12:25 Primary care physician: Physician No Primary/Family Admitting Provider: Lalo Silverio MD Attending Provider on Admission: Lalo Silverio MD Consults: 07/05/24 19:20 Referral Registered Dietitian Routine Comment: Referral Wound Care Routine Comment: 07/08/24 08:30 Referral Nutritional Services Routine Comment: New admit Referral Wound Care Routine Comment: Wounds care 07/13/24 20:51 Consult to Podiatry Routine Comment: toenails need to be trimmed Consulting Provider: 07/19/24 15:28 Referral Physical Therapy Routine Comment: Physician Instructions: Instructions: Needs initial PT eval. (new admission) Attending Provider on DC: Therese Parada MD Discharging Provider: Therese Parada MD DS: Diagnosis Problem List Completed Was Problem List Reviewed/Reconciled?: Yes Hospital Course Hospital Course Hospital course: Ms. Ennis is a 69-year-old female coming from [facility] with past medical history significant for trach (on ventilator) and PEG, nonverbal, epilepsy, hypertension, hyperlipidemia, and diabetes mellitus who presented to the ED with altered mental status and admitted for further management of sepsis secondary to UTI versus ventilator associated pneumonia. Patient' #Sepsis secondary to #UTI #Ventilator associated pneumonia #History of tracheostomy Presented with altered mental status, unable to open her eyes and communicate with nonverbal cues. However, after sepsis bolus and antibiotics, patient slowly returned to her baseline. Presented with 4/4 SIRS criteria with endorgan damage, BP as low as 88/51. Imaging showed bilateral pneumonia and UA showed turbid urine, 1+ protein, 21 RBC, 254 WBC, rare bacteria, LE positive. Blood culture negative last 48 hours. Gram stain showed 4+ gram-negative rods and 3+ WBC ? Will transition to p.o. levofloxacin most recent urine culture sensitive ? Will discontinue IV Vanco and Zosyn ? Consulted infectious disease, appreciate recommendations, recommended to transition to levofloxacin ? Continue with airway suctioning as needed and tracheostomy maintenance with respiratory therapist ? Mechanical ventilator set at 7 setting with low FiO2 and PEEP ? DuoNebs every 2 as needed as needed ? Eyedrops as needed #History of PEG Unsure which tube feed patient uses ? Glucerna with goal rate of 50 mL/h ? Arash twice daily ? Started patient on sign scale insulin with hypoglycemic protocol #Diabetes mellitus-stable Last 2 A1c reported to be under 6.5 ? Continue with sliding scale insulin ? Hypoglycemic protocol if needed #History of seizures ? Resume patient's home Keppra and valproic acid via G-tube Health Maintenance: DVT prophylaxis: Heparin subcu Diet: Jevity via PEG Hobson: Recently changed in the ER, noted to have light pink-tinged urine, and cloudy Lines: PIV Supplemental O2: None CODE STATUS: DNR per chart Disposition: Patient admitted to med/tele for further management of sepsis secondary to UTI versus ventilator associated pneumonia pending cultures. Patient's plan and care discussed with my attending, Dr. Cain Parada MD PGY-2 Time Spent with Patient Time attestation: Total time spent providing and/or coordinating discharge services: Time spent: Greater than 30 minutes Exam Vital Signs Temp Pulse Resp BP Pulse Ox O2 Del Method FiO2 102.8 F H 102 H 39 H 150/81 H 98 Mechanical Ventilation 30 07/26/24 07:08 07/26/24 06:45 07/26/24 06:45 07/26/24 06:00 07/26/24 06:45 07/25/24 18:00 07/26/24 06:45 Discharge Plan Plan Patient Disposition: Xfer [facility] Acute Care Plan Goals: Patient will continue to be on Levofloxacin 750mg once daily for 5 more days. Please continue to take your home medications as prescribed. Please see your PCP within 1-2 weeks. Please return to the ED if your symptoms reoccur or worsen. Prescriptions/Referrals Prescriptions/Med Rec: Continued acetylcysteine 100 mg/mL (10 %) solution 3 ml inhalation Q6H acetaminophen 325 mg capsule 650 mg PO QID PRN (Reason: pain) gentamicin 0.3 % drops 1 drp Both eyes QID Rx Instructions: for 10 days, started 07/23/24 insulin lispro [Humalog U-100 Insulin] 100 unit/mL solution 1 sliding scale dose subcut USEASDIRECTD buspirone 5 mg Tablet 10 mg G-tube BID ipratropium-albuterol 0.5 mg-3 mg(2.5 mg base)/3 mL Solution For Nebulization 3 ml INH Q2HR PRN (Reason: Shortness Of Breath Or Wheeze) Qty: 0 0RF levofloxacin 250 mg Tablet 750 mg PO QDAY 5 Days Qty: 15 0RF magnesium hydroxide [Milk of Magnesia] 400 mg/5 mL Suspension 30 ml G-tube QDAY PRN (Reason: Constipation) 30 Days Qty: 0 0RF artificial tear([id number]) 0.1-0.3-0.2 % Drops 1 drp Both eyes Q8H Qty: 0 0RF cholecalciferol (vitamin D3) 25 mcg (1,000 unit) Tablet 1,000 iu PO BID Qty: 0 0RF aspirin [Children's Aspirin] 81 mg Tablet,Chewable 81 mg G-tube QDAY 14 Days Qty: 14 0RF levetiracetam 500 mg/5 mL (5 mL) Solution 1,000 mg G-tube BID 14 Days Qty: 280 0RF acetaminophen 325 mg/10.15 mL Solution 650 mg G-tube Q6H PRN (Reason: pain 1-3 and fever >100.3) 14 Days Qty: 406 0RF valproic acid (as sodium salt) 250 mg/5 mL (5 mL) Solution 500 mg G-tube TID 14 Days Qty: 420 0RF Referrals: No Primary/Family,Physician [Primary Care Provider] - Patient/Caregiver Discharge Instructions Print Language: Lao Stand Alone Forms: Johana Award Info., Patient Portal Info Letter Discharge Order Discharge Orders: Discharge (Routine); Ordered 07/29/24 Ordered By: Therese Parada Quality Discharge Quality Measures none MD Attestestation MD Attestation I reviewed labs, imaging, EKG, home medications and prior available records. Face to face evaluation was performed by me. I have personally examined the patient and discussed assessment and plan with the IM team. I reviewed the resident note and agree with the plan with exceptions as below. Brain injury Chronic encephalopathy Chronic hypoxic respiratory failure Status post tracheostomy and PEG tube insertion Sepsis Left lower lobe pneumonia Acute UTI Bilateral lower extremity swelling Consulted ID: Changed antibiotics to levofloxacin Follow-up blood, sputum, and urine cultures: Grew Pseudomonas that is sensitive to fluoroquinolones Trend WBC: Downtrending Continue Keppra and valproic acid Continue tube feeds and water flushes Time spent is 40 minutes. More than 50% of the time was spent on patient education and coordination of care.
[2024-07-29 19:55] VITALS: PULSE 108; RESP 27; O2SAT 99
--- NOTE | 2024-07-29 20:40 | ESPR_ITS ---
Progress Note - SubAcute DIAGNOSIS (1) Hyponatremia: Status: Inactive (2) Hyperkalemia: Status: Inactive (3) Chronic respiratory failure: Status: Chronic (4) Ventilator dependent: Status: Chronic (5) Tracheostomy dependence: Status: Chronic (6) PEG (percutaneous endoscopic gastrostomy) status: Status: Chronic (7) Essential hypertension: Status: Chronic (8) Seizures: Status: Chronic (9) Chronic anoxic encephalopathy: Status: Chronic SUBJECTIVE Fever:: none Shortness of Breath:: none Pain:: none OBJECTIVE Most recent vital signs: Last Vital Signs Temp 97.4 F 08/04/24 06:00 Pulse 74 08/04/24 06:00 Resp 18 08/04/24 06:00 BP 114/72 08/04/24 06:00 Pulse Ox 98 08/04/24 06:00 O2 Del Method Mechanical Ventilation 08/03/24 16:39 FiO2 30 08/04/24 00:22 Neurological:: awake (orientation x 0, no cognitive response) Respiratory:: lungs clear Cardiovascular: RRR Abdomen: soft Extremities:: deformities Tracheostomy:: to ventilator Feeding per:: G tube Complaints:: none ASSESSMENT & PLAN Assessment: 69 yrs of age female being admitted with Hypertension/hyperlipidemia/epilepsy, recently treated in acute care for UTI sepsis and on Vancomycn On 07-07-24 pt was sent to ER for worsening hyponatremia inspite of replacement and hyperkalemia and pt returned the same day after iv correction of the above. Since then stable on replacement therapy. 07-26-24 sent to ER and admitted for UTI/sepsis ?, started on Zosyn and returned to [facility] on 07-29-24 in a stable condition. Plan: Current treatment reviewed and continued. Electrolyte disturbunces being addressed.
[2024-07-29] MEDS: levETIRAcetam 100 MG/ML SOLUTION 1000 MG GT (21:07)
[2024-07-29] MEDS: BUSPIRONE 10 MG TABLET GT (21:13)
[2024-07-29] MEDS: VALPROIC ACID 250 MG/5 ML 500 MG GT (21:14)
[2024-07-29] MEDS: ATORVASTATIN 20 MG TABLET 40 MG GT (21:14)
[2024-07-29] MEDS: CHOLECALCIFEROL (VITAMIN D3) 25 MCG TABLET GT (21:15)
[2024-07-29] MEDS: HEPARIN 5,000 UNIT/ML VIAL 5000 UNIT SC (21:15)
[2024-07-29] MEDS: GENTAMICIN 0.3% OPHTH DROPS 75 DROP/5 ML BTL OPHTHALMIC (21:15)
[2024-07-30] VITALS (8 sets, daily range): BP systolic 98–140; BP diastolic 61–69; PULSE 71–101; RESP 18–38; TEMP 36–36.3; O2SAT 95–99
[2024-07-30] MEDS: GENTAMICIN 0.3% OPHTH DROPS 75 DROP/5 ML BTL OPHTHALMIC ×4 (05:11→21:21)
[2024-07-30] MEDS: VALPROIC ACID 250 MG/5 ML 500 MG GT ×3 (05:11→21:24)
[2024-07-30] MEDS: ASPIRIN 81 MG TAB.CHEW GT (09:23)
[2024-07-30] MEDS: levETIRAcetam 100 MG/ML SOLUTION 1000 MG GT ×2 (09:23→21:21)
[2024-07-30] MEDS: BUSPIRONE 10 MG TABLET GT ×2 (09:24→21:27)
[2024-07-30] MEDS: levoFLOXacin 500 MG TABLET 750 MG GT (09:25)
[2024-07-30] MEDS: CHOLECALCIFEROL (VITAMIN D3) 25 MCG TABLET GT ×2 (09:25→21:27)
[2024-07-30] MEDS: HEPARIN 5,000 UNIT/ML VIAL 5000 UNIT SC ×2 (09:26→21:28)
[2024-07-30] MEDS: ACETAMINOPHEN 325 MG TABLET 650 MG GT ×2 (09:28→21:28)
--- NOTE | 2024-07-30 17:01 | PC.NURSE ---
Admitted from [facility]. on 07/29/2024 at 1550 accompanied by one RN, one HEALTH EDUCATION SPECIALIST, and one ORTHODONTIST SMALL BUSINESS OWNER. VS: 98.4-84-18-140/80-95% on normal vent settings.Ms. Ennis was awake and alert, no sign or pain or discomfort. 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 Per transfer report, she was given six doses of Vanco and nine doses Zosyn during her stay in acute setting, no adverse reaction or side effects noted. New order for Levaquin 750mg tablet, give one tablet daily x5 days for pseudomonas aeruginosa in urine. 07/29/2024 CBC: WBC 18.3. MRSA to left eye treatment completed. Last BM 07/29/2024 - large loose to soft. Continue on Glucerna 1.2 @58ml/hr with auto flushes @25ml/hr.
--- NOTE | 2024-07-30 18:26 | PC.NURSE ---
Resident receiving ABX Levofloxacin 750 mg daily x5 days via g-tube for Pseudomonas Aeruginosa in urine. Vital signs within normal parameters. No adverse reactions noticed at this time.
[2024-07-30] MEDS: ATORVASTATIN 20 MG TABLET 40 MG GT (21:24)
[2024-07-30] MEDS: guaiFENesin Liq 100 MG/5 ML LIQUID 300 MG GT (21:29)
[2024-07-31] VITALS (8 sets, daily range): BP systolic 108–123; BP diastolic 64–75; PULSE 67–93; RESP 18–31; TEMP 35.9–36.7; O2SAT 93–98
[2024-07-31] MEDS: VALPROIC ACID 250 MG/5 ML 500 MG GT ×3 (05:14→21:12)
[2024-07-31] MEDS: GENTAMICIN 0.3% OPHTH DROPS 75 DROP/5 ML BTL OPHTHALMIC ×4 (05:14→21:11)
[2024-07-31] MEDS: HEPARIN 5,000 UNIT/ML VIAL 5000 UNIT SC ×2 (08:34→21:14)
[2024-07-31] MEDS: guaiFENesin Liq 100 MG/5 ML LIQUID 300 MG GT (09:30)
[2024-07-31] MEDS: ACETAMINOPHEN 325 MG TABLET 650 MG GT (09:30)
[2024-07-31] MEDS: ASPIRIN 81 MG TAB.CHEW GT (09:34)
[2024-07-31] MEDS: levoFLOXacin 500 MG TABLET 750 MG GT (09:34)
[2024-07-31] MEDS: levETIRAcetam 100 MG/ML SOLUTION 1000 MG GT ×2 (09:34→21:11)
[2024-07-31] MEDS: CHOLECALCIFEROL (VITAMIN D3) 25 MCG TABLET GT ×2 (09:34→21:14)
[2024-07-31] MEDS: BUSPIRONE 10 MG TABLET GT ×2 (09:34→21:13)
--- NOTE | 2024-07-31 20:11 | PC.NURSE ---
Resident continues on ATB for UTI. No adverse reactions noted. Afebrile. Denies dysuria. Slight hematuria noted. Continue to observe.
[2024-07-31] MEDS: ATORVASTATIN 20 MG TABLET 40 MG GT (21:13)
[2024-08-01] VITALS (8 sets, daily range): BP systolic 123–146; BP diastolic 64–86; PULSE 75–103; RESP 19–35; TEMP 36.1–36.8; O2SAT 94–99; BMI 31.9
[2024-08-01] MEDS: VALPROIC ACID 250 MG/5 ML 500 MG GT ×3 (05:08→21:01)
[2024-08-01] MEDS: GENTAMICIN 0.3% OPHTH DROPS 75 DROP/5 ML BTL OPHTHALMIC ×4 (05:08→20:45)
[2024-08-01] MEDS: levETIRAcetam 100 MG/ML SOLUTION 1000 MG GT ×2 (09:06→20:46)
[2024-08-01] MEDS: HEPARIN 5,000 UNIT/ML VIAL 5000 UNIT SC ×2 (09:06→20:48)
[2024-08-01] MEDS: CHOLECALCIFEROL (VITAMIN D3) 25 MCG TABLET GT ×2 (09:06→20:48)
[2024-08-01] MEDS: ASPIRIN 81 MG TAB.CHEW GT (09:06)
[2024-08-01] MEDS: levoFLOXacin 500 MG TABLET 750 MG GT (09:06)
[2024-08-01] MEDS: BUSPIRONE 10 MG TABLET GT ×2 (09:06→20:48)
--- NOTE | 2024-08-01 16:20 | ESPR_ITS ---
Progress Note - SubAcute DIAGNOSIS (1) Chronic respiratory failure: Status: Chronic (2) Ventilator dependent: Status: Chronic (3) Tracheostomy dependence: Status: Chronic (4) PEG (percutaneous endoscopic gastrostomy) status: Status: Chronic (5) Essential hypertension: Status: Chronic (6) Seizures: Status: Chronic (7) Chronic anoxic encephalopathy: Status: Chronic SUBJECTIVE Fever:: none Shortness of Breath:: none Pain:: none OBJECTIVE Most recent vital signs: Last Vital Signs Temp 97.4 F 08/04/24 06:00 Pulse 74 08/04/24 06:00 Resp 18 08/04/24 06:00 BP 114/72 08/04/24 06:00 Pulse Ox 98 08/04/24 06:00 O2 Del Method Mechanical Ventilation 08/03/24 16:39 FiO2 30 08/04/24 00:22 Neurological:: awake (orientation x 0, no cognitive response) Respiratory:: lungs clear Cardiovascular: RRR Abdomen: soft Extremities:: deformities Tracheostomy:: to ventilator Feeding per:: G tube Complaints:: none ASSESSMENT & PLAN Assessment: 69 yrs of age female being admitted with Hypertension/hyperlipidemia/epilepsy, recently treated in acute care for UTI sepsis and on Vancomycn On 07-07-24 pt was sent to ER for worsening hyponatremia inspite of replacement and hyperkalemia and pt returned the same day after iv correction of the above. Since then stable on replacement therapy. 07-26-24 sent to ER and admitted for UTI/sepsis ?, started on Zosyn and returned to [facility] on 07-29-24 in a stable condition. Pt remains afebrile and VSS. Will complete antibiotics and monitor. Plan: Current treatment reviewed and continued. Electrolyte disturbunces being addressed.
[2024-08-01] MEDS: ATORVASTATIN 20 MG TABLET 40 MG GT (20:48)
[2024-08-02] VITALS: BP 134/83; PULSE 91; RESP 24; TEMP 36.5
[2024-08-02 00:27] VITALS: PULSE 74; RESP 20; O2SAT 95
[2024-08-02] MEDS: VALPROIC ACID 250 MG/5 ML 500 MG GT ×3 (05:42→21:16)
[2024-08-02 06:00] VITALS: BP 121/76; PULSE 90; RESP 23; TEMP 36.3; O2SAT 96
--- NOTE | 2024-08-02 06:42 | PC.NURSE ---
Last dose of Gentamicyin eye drops given last night, eyes clear, no drainage noted, resident also on Levaquin Gtube for UTI, no adverse reaction or side effects noted, afebrile, resident in room resting with eyes closed, respirations even and unlabored, call light within reach, no s/s of distress.
[2024-08-02 06:45] VITALS: PULSE 79; RESP 26; O2SAT 96
[2024-08-02] MEDS: HEPARIN 5,000 UNIT/ML VIAL 5000 UNIT SC ×2 (09:02→21:17)
[2024-08-02] MEDS: levETIRAcetam 100 MG/ML SOLUTION 1000 MG GT ×2 (09:08→21:14)
[2024-08-02] MEDS: ASPIRIN 81 MG TAB.CHEW GT (09:08)
[2024-08-02] MEDS: CHOLECALCIFEROL (VITAMIN D3) 25 MCG TABLET GT ×2 (09:08→21:17)
[2024-08-02] MEDS: BUSPIRONE 10 MG TABLET GT ×2 (09:08→21:16)
[2024-08-02] MEDS: levoFLOXacin 500 MG TABLET 750 MG GT (09:09)
--- NOTE | 2024-08-02 12:17 | PC.SS ---
Room visit: Resident is laying in bed with head of the bed elevated with call light properly placed with no signs of distress. Resident remains non verbal, she at times is able to answer simple yes no questions with head nod. Resident will remain in current care as she has no changes in care or condition, she remains on vent with trach in place and GT for medication and nutrition. This SSD will continue to make daily contact with resident and monitor for changes in mood and behavior.
[2024-08-02 12:35] VITALS: PULSE 82; RESP 26; O2SAT 95
[2024-08-02 18:42] VITALS: PULSE 70; RESP 18; RESP 21; O2SAT 96
--- NOTE | 2024-08-02 18:59 | PC.NURSE ---
Continues on antibiotics for UTI. No adverse reactions noted. No c/o dysuria. No hematuria noted. Continue to observe.
[2024-08-02] MEDS: ATORVASTATIN 20 MG TABLET 40 MG GT (21:17)
[2024-08-03] VITALS (8 sets, daily range): BP systolic 114–150; BP diastolic 60–79; PULSE 60–85; RESP 18–26; TEMP 36.2–36.5; O2SAT 96–99
[2024-08-03] MEDS: VALPROIC ACID 250 MG/5 ML 500 MG GT ×3 (05:50→21:35)
[2024-08-03] MEDS: levETIRAcetam 100 MG/ML SOLUTION 1000 MG GT ×2 (08:47→21:35)
[2024-08-03] MEDS: BUSPIRONE 10 MG TABLET GT ×2 (08:48→21:37)
[2024-08-03] MEDS: CHOLECALCIFEROL (VITAMIN D3) 25 MCG TABLET GT ×2 (08:49→21:37)
[2024-08-03] MEDS: ASPIRIN 81 MG TAB.CHEW GT (08:49)
[2024-08-03] MEDS: levoFLOXacin 500 MG TABLET 750 MG GT (08:50)
[2024-08-03] MEDS: HEPARIN 5,000 UNIT/ML VIAL 5000 UNIT SC ×2 (08:59→21:37)
[2024-08-03] MEDS: ATORVASTATIN 20 MG TABLET 40 MG GT (21:37)
[2024-08-04] VITALS (9 sets, daily range): BP systolic 108–145; BP diastolic 72–79; PULSE 72–86; RESP 18–28; TEMP 36.3–36.7; O2SAT 96–99
[2024-08-04] MEDS: VALPROIC ACID 250 MG/5 ML 500 MG GT ×3 (05:53→21:29)
[2024-08-04] MEDS: levETIRAcetam 100 MG/ML SOLUTION 1000 MG GT ×2 (09:00→21:28)
[2024-08-04] MEDS: BUSPIRONE 10 MG TABLET GT ×2 (09:06→21:29)
[2024-08-04] MEDS: ASPIRIN 81 MG TAB.CHEW GT (09:07)
[2024-08-04] MEDS: CHOLECALCIFEROL (VITAMIN D3) 25 MCG TABLET GT ×2 (09:07→21:30)
[2024-08-04] MEDS: HEPARIN 5,000 UNIT/ML VIAL 5000 UNIT SC ×2 (09:07→21:30)
[2024-08-04 15:47] LABS: Basophils # (Auto) 0.1 Thou/mm3 (0.0-0.2); Basophils % (Auto) 1 % (0-2.5); Eosinophils # (Auto) 0.9 Thou/mm3 (0.0-0.5); Eosinophils % (Auto) 5 % (0-10); Hematocrit 24.5 % (36.0-46.0); Immature Granulocytes % (Auto) 5 % (0-0); Immature Granulocytes Auto 0.88 Thou/mm3 (0.00-0.00); Lymphocytes % (Auto) 18 % (10-50); Mean Corpuscular HGB Conc 32.7 g/dl (31.0-37.0); Mean Corpuscular Hemoglobin 30.2 pg (25.0-35.0); Mean Corpuscular Volume 93 fL (80-100); Monocytes # (Auto) 1.6 Thou/mm3 (0.0-0.8); Monocytes % (Auto) 9 % (0-12); Neutrophils # (Auto) 10.4 Thou/mm3 (1.8-7.7); Neutrophils % (Auto) 62 % (37-80); Nucleated Red Blood Cell # 0.02 Thou/mm3 (0.00-0.00); Nucleated Red Blood Cell % 0 /100 WBC (0); Platelet Count 473 Thou/mm3 (140-440); RDW Standard Deviation 61.6 fL (36.4-46.3); Red Blood Count 2.65 Miln/mm3 (4.00-5.20); White Blood Count 16.8 Thou/mm3 (3.6-11.0)
[2024-08-04 16:09] LABS: Albumin, Serum 3.6 gm/dL (3.4-4.8); Anion Gap 6 (7-16); BUN/Creatinine Ratio 45 Ratio (12-20); Blood Urea Nitrogen 27 mg/dL (9-23); Calcium 8.6 mg/dL (8.3-10.6); Calcium (Corrected) 8.9 mg/dL (8.5-10.1); Carbon Dioxide 33.4 mMol/L (20.0-31.0); Chloride 104 mMol/L (98-107); Creatinine (Component) 0.6 mg/dL (0.6-1.3); Glucose 150 mg/dL (74-106); Osmolality,Calculated 293 (275-295); Phenytoin (Dilantin) < 2.0 mcg/mL; Phosphorous 4.1 mg/dL (2.4-5.1); Sodium 143 mMol/L (136-145); eGFR > 60 See Note
--- NOTE | 2024-08-04 18:31 | PC.NURSE ---
Received CBC result made aware and order to repeat cbc to follow-up wbc on 08/08, received renal panel result no new order received.
[2024-08-04] MEDS: ATORVASTATIN 20 MG TABLET 40 MG GT (21:30)
[2024-08-05] VITALS (8 sets, daily range): BP systolic 97–145; BP diastolic 60–75; PULSE 64–87; RESP 18–33; TEMP 36.3–36.4; O2SAT 95–100
[2024-08-05] MEDS: VALPROIC ACID 250 MG/5 ML 500 MG GT ×3 (05:16→21:02)
[2024-08-05] MEDS: BUSPIRONE 10 MG TABLET GT ×2 (09:12→21:00)
[2024-08-05] MEDS: ASPIRIN 81 MG TAB.CHEW GT (09:12)
[2024-08-05] MEDS: CHOLECALCIFEROL (VITAMIN D3) 25 MCG TABLET GT ×2 (09:13→20:29)
[2024-08-05] MEDS: levETIRAcetam 100 MG/ML SOLUTION 1000 MG GT ×2 (09:14→20:30)
[2024-08-05] MEDS: HEPARIN 5,000 UNIT/ML VIAL 5000 UNIT SC ×2 (09:14→20:29)
[2024-08-05] MEDS: ATORVASTATIN 20 MG TABLET 40 MG GT (20:27)
[2024-08-05] MEDS: guaiFENesin Liq 100 MG/5 ML LIQUID 300 MG GT (20:32)
--- NOTE | 2024-08-05 20:49 | PD.SAPROG ---
Progress Note - SubAcute DIAGNOSIS (1) Chronic respiratory failure: Status: Chronic (2) Ventilator dependent: Status: Chronic (3) Tracheostomy dependence: Status: Chronic (4) PEG (percutaneous endoscopic gastrostomy) status: Status: Chronic (5) Essential hypertension: Status: Chronic (6) Seizures: Status: Chronic (7) Chronic anoxic encephalopathy: Status: Chronic SUBJECTIVE Fever:: none Shortness of Breath:: none Pain:: none OBJECTIVE Most recent vital signs: Last Vital Signs Temp 97.4 F 08/05/24 18:00 Pulse 87 08/05/24 18:31 Resp 33 H 08/05/24 18:31 BP 145/75 H 08/05/24 18:00 Pulse Ox 95 08/05/24 18:31 O2 Del Method Mechanical Ventilation 08/05/24 18:00 FiO2 30 08/05/24 18:31 Neurological:: awake (orientation x 0, no cognitive response) Respiratory:: lungs clear Cardiovascular: RRR Abdomen: soft Extremities:: deformities Tracheostomy:: to ventilator Feeding per:: G tube Complaints:: none ASSESSMENT & PLAN Assessment: 69 yrs of age female being admitted with Hypertension/hyperlipidemia/epilepsy, recently treated in acute care for UTI sepsis and on Vancomycn On 07-07-24 pt was sent to ER for worsening hyponatremia inspite of replacement and hyperkalemia and pt returned the same day after iv correction of the above. Since then stable on replacement therapy. 07-26-24 sent to ER and admitted for UTI/sepsis ?, started on Zosyn and returned to [facility] on 07-29-24 in a stable condition. Pt remains afebrile and VSS. Will complete antibiotics and monitor. Plan: Current treatment reviewed and continued. Electrolyte disturbunces being addressed.
[2024-08-06] VITALS (8 sets, daily range): BP systolic 94–129; BP diastolic 60–75; PULSE 71–86; RESP 18–28; TEMP 35.9–36.4; O2SAT 95–100
[2024-08-06] MEDS: VALPROIC ACID 250 MG/5 ML 500 MG GT ×3 (05:20→21:00)
[2024-08-06] MEDS: BUSPIRONE 10 MG TABLET GT ×2 (09:23→20:53)
[2024-08-06] MEDS: levETIRAcetam 100 MG/ML SOLUTION 1000 MG GT ×2 (09:24→20:55)
[2024-08-06] MEDS: HEPARIN 5,000 UNIT/ML VIAL 5000 UNIT SC ×2 (09:24→20:54)
[2024-08-06] MEDS: ASPIRIN 81 MG TAB.CHEW GT (09:24)
[2024-08-06] MEDS: CHOLECALCIFEROL (VITAMIN D3) 25 MCG TABLET GT ×2 (09:24→20:54)
[2024-08-06] MEDS: ACETAMINOPHEN 325 MG TABLET 650 MG GT (14:20)
--- NOTE | 2024-08-06 17:41 | PC.NURSE ---
During IDT the team agreed to D/C vitaly, order noted and carried out.
[2024-08-06] MEDS: ATORVASTATIN 20 MG TABLET 40 MG GT (20:54)
[2024-08-07] VITALS (8 sets, daily range): BP systolic 103–150; BP diastolic 59–81; PULSE 67–88; RESP 18–81; TEMP 36.2–36.6; O2SAT 95–99
[2024-08-07] MEDS: VALPROIC ACID 250 MG/5 ML 500 MG GT ×3 (05:55→21:13)
[2024-08-07] MEDS: HEPARIN 5,000 UNIT/ML VIAL 5000 UNIT SC ×2 (08:50→21:11)
[2024-08-07] MEDS: ASPIRIN 81 MG TAB.CHEW GT (09:18)
[2024-08-07] MEDS: BUSPIRONE 10 MG TABLET GT ×2 (09:18→21:10)
[2024-08-07] MEDS: CHOLECALCIFEROL (VITAMIN D3) 25 MCG TABLET GT ×2 (09:19→21:10)
[2024-08-07] MEDS: levETIRAcetam 100 MG/ML SOLUTION 1000 MG GT ×2 (09:19→21:11)
--- NOTE | 2024-08-07 14:53 | PC.SS ---
Room visit: Resident is laying in bed with head of the bed elevated with call light properly placed with no signs of distress. Resident will remain in current care as she has no changes in care or condition. She is unable to make needs known, her sister is her decision maker. Resident will remain on vent with trach in place and GT for medication and nutrition. Resident will remain in current care and will continue to have all subacute care needs met by staff. This SSD will continue to make daily contact with resident and will monitor for changes in mood and behavior.
[2024-08-07] MEDS: ATORVASTATIN 20 MG TABLET 40 MG GT (21:10)
[2024-08-08] VITALS (8 sets, daily range): BP systolic 107–148; BP diastolic 61–80; PULSE 24–89; RESP 18–30; TEMP 36.1–36.9; O2SAT 95–99
[2024-08-08 04:56] LABS: Basophils # (Auto) 0.1 Thou/mm3 (0.0-0.2); Basophils % (Auto) 0 % (0-2.5); Eosinophils # (Auto) 0.9 Thou/mm3 (0.0-0.5); Eosinophils % (Auto) 3 % (0-10); Hematocrit 27.6 % (36.0-46.0); Hemoglobin 9.1 g/dL (12.0-16.0); Immature Granulocytes % (Auto) 2 % (0-0); Immature Granulocytes Auto 0.39 Thou/mm3 (0.00-0.00); Lymphocytes # (Auto) 2.6 Thou/mm3 (1.0-4.8); Lymphocytes % (Auto) 10 % (10-50); Mean Corpuscular Hemoglobin 30.6 pg (25.0-35.0); Mean Corpuscular Volume 93 fL (80-100); Monocytes # (Auto) 2.7 Thou/mm3 (0.0-0.8); Monocytes % (Auto) 10 % (0-12); Neutrophils # (Auto) 19.7 Thou/mm3 (1.8-7.7); Neutrophils % (Auto) 75 % (37-80); Nucleated Red Blood Cell % 0 /100 WBC (0); Platelet Count 525 Thou/mm3 (140-440); RDW Standard Deviation 60.3 fL (36.4-46.3); Red Blood Count 2.97 Miln/mm3 (4.00-5.20); White Blood Count 26.3 Thou/mm3 (3.6-11.0)
[2024-08-08] MEDS: VALPROIC ACID 250 MG/5 ML 500 MG GT ×3 (05:01→21:18)
[2024-08-08] MEDS: HEPARIN 5,000 UNIT/ML VIAL 5000 UNIT SC ×2 (09:07→21:18)
[2024-08-08] MEDS: BUSPIRONE 10 MG TABLET GT ×2 (09:29→21:16)
[2024-08-08] MEDS: ACETAMINOPHEN 325 MG TABLET 650 MG GT (09:30)
[2024-08-08] MEDS: ASPIRIN 81 MG TAB.CHEW GT (09:30)
[2024-08-08] MEDS: CHOLECALCIFEROL (VITAMIN D3) 25 MCG TABLET GT ×2 (09:30→21:17)
[2024-08-08] MEDS: levETIRAcetam 100 MG/ML SOLUTION 1000 MG GT ×2 (09:30→21:17)
--- NOTE | 2024-08-08 13:29 | PC.NURSE ---
Made MD aware CBC collected on 08/08/2024 WBC 26.3 trending up from previous results; discussed that she remains asymptomatic, vitals remain stable. VS: 98.5- 81-148/79-96% on normal vent setting. MD advised to continue to monitor and repeat CBC in 2 days.
[2024-08-08] MEDS: ATORVASTATIN 20 MG TABLET 40 MG GT (21:16)
[2024-08-09] VITALS: BP 128/76; PULSE 80; RESP 18; TEMP 36.2
[2024-08-09 01:25] VITALS: PULSE 65; RESP 18; O2SAT 97
[2024-08-09 05:37] VITALS: BP 104/69; PULSE 88; RESP 18; TEMP 36.4; O2SAT 95
[2024-08-09] MEDS: VALPROIC ACID 250 MG/5 ML 500 MG GT ×2 (06:06→21:45)
[2024-08-09 06:52] VITALS: PULSE 66; RESP 22; O2SAT 97
[2024-08-09] MEDS: BUSPIRONE 10 MG TABLET GT ×2 (09:21→21:44)
[2024-08-09] MEDS: CHOLECALCIFEROL (VITAMIN D3) 25 MCG TABLET GT ×2 (09:22→21:47)
[2024-08-09] MEDS: levETIRAcetam 100 MG/ML SOLUTION 1000 MG GT ×2 (09:22→21:47)
[2024-08-09] MEDS: ASPIRIN 81 MG TAB.CHEW GT (09:22)
[2024-08-09] MEDS: HEPARIN 5,000 UNIT/ML VIAL 5000 UNIT SC ×2 (09:22→21:47)
[2024-08-09] MEDS: ACETAMINOPHEN 325 MG TABLET 650 MG GT ×2 (09:26→21:45)
[2024-08-09 12:44] VITALS: PULSE 68; RESP 24; O2SAT 97
--- NOTE | 2024-08-09 13:25 | PD.SAPROG ---
Progress Note - SubAcute DIAGNOSIS (1) Chronic respiratory failure: Status: Chronic (2) Ventilator dependent: Status: Chronic (3) Tracheostomy dependence: Status: Chronic (4) PEG (percutaneous endoscopic gastrostomy) status: Status: Chronic (5) Essential hypertension: Status: Chronic (6) Seizures: Status: Chronic (7) Chronic anoxic encephalopathy: Status: Chronic SUBJECTIVE Fever:: none Shortness of Breath:: none Pain:: none OBJECTIVE Most recent vital signs: Last Vital Signs Temp 97.5 F 08/11/24 05:33 Pulse 73 08/11/24 12:47 Resp 18 08/11/24 06:22 BP 111/74 08/11/24 05:33 Pulse Ox 98 08/11/24 12:47 O2 Del Method Mechanical Ventilation 08/06/24 17:00 FiO2 30 08/11/24 12:47 Neurological:: awake (orientation x 0, no cognitive response) Respiratory:: lungs clear Cardiovascular: RRR Abdomen: soft Extremities:: deformities Tracheostomy:: to ventilator Feeding per:: G tube Complaints:: none ASSESSMENT & PLAN Assessment: 69 yrs of age female being admitted with Hypertension/hyperlipidemia/epilepsy, recently treated in acute care for UTI sepsis and on Vancomycn On 07-07-24 pt was sent to ER for worsening hyponatremia inspite of replacement and hyperkalemia and pt returned the same day after iv correction of the above. Since then stable on replacement therapy. 07-26-24 sent to ER and admitted for UTI/sepsis ?, started on Zosyn and returned to [facility] on 07-29-24 in a stable condition. Pt remains afebrile and VSS. Plan: Current treatment reviewed and continued. Electrolyte disturbunces being addressed.
[2024-08-09 18:49] VITALS: PULSE 69; RESP 20; RESP 25; O2SAT 98; O2SAT 99
[2024-08-09] MEDS: ATORVASTATIN 20 MG TABLET 40 MG GT (21:47)
[2024-08-10] VITALS (8 sets, daily range): BP systolic 90–121; BP diastolic 55–65; PULSE 74–96; RESP 18–30; TEMP 35.8–36.4; O2SAT 95–98
[2024-08-10] MEDS: VALPROIC ACID 250 MG/5 ML 500 MG GT ×3 (05:10→21:49)
[2024-08-10 08:59] LABS: Basophils # (Auto) 0.2 Thou/mm3 (0.0-0.2); Basophils % (Auto) 1 % (0-2.5); Eosinophils # (Auto) 1.2 Thou/mm3 (0.0-0.5); Eosinophils % (Auto) 5 % (0-10); Hematocrit 29.3 % (36.0-46.0); Hemoglobin 9.9 g/dL (12.0-16.0); Immature Granulocytes % (Auto) 2 % (0-0); Immature Granulocytes Auto 0.37 Thou/mm3 (0.00-0.00); Lymphocytes # (Auto) 4.3 Thou/mm3 (1.0-4.8); Lymphocytes % (Auto) 18 % (10-50); Mean Corpuscular HGB Conc 33.8 g/dl (31.0-37.0); Mean Corpuscular Hemoglobin 30.7 pg (25.0-35.0); Mean Corpuscular Volume 91 fL (80-100); Monocytes # (Auto) 3.2 Thou/mm3 (0.0-0.8); Monocytes % (Auto) 14 % (0-12); Neutrophils # (Auto) 14.2 Thou/mm3 (1.8-7.7); Neutrophils % (Auto) 61 % (37-80); Nucleated Red Blood Cell % 0 /100 WBC (0); Platelet Count 359 Thou/mm3 (140-440); RDW Standard Deviation 60.3 fL (36.4-46.3); Red Blood Count 3.22 Miln/mm3 (4.00-5.20); White Blood Count 23.3 Thou/mm3 (3.6-11.0)
[2024-08-10] MEDS: HEPARIN 5,000 UNIT/ML VIAL 5000 UNIT SC ×2 (09:51→21:49)
[2024-08-10] MEDS: BUSPIRONE 10 MG TABLET GT ×2 (09:55→21:48)
[2024-08-10] MEDS: levETIRAcetam 100 MG/ML SOLUTION 1000 MG GT ×2 (09:57→21:49)
[2024-08-10] MEDS: ASPIRIN 81 MG TAB.CHEW GT (09:57)
[2024-08-10] MEDS: CHOLECALCIFEROL (VITAMIN D3) 25 MCG TABLET GT ×2 (09:57→21:49)
--- NOTE | 2024-08-10 20:07 | PC.NURSE ---
made aware of CBC results, new order for CBC in 1 week to follow WBC.
[2024-08-10] MEDS: ATORVASTATIN 20 MG TABLET 40 MG GT (21:49)
[2024-08-10] MEDS: guaiFENesin Liq 100 MG/5 ML LIQUID 300 MG GT (21:49)
--- NOTE | 2024-08-10 22:10 | PC.NURSE ---
Resident attempted to grab at neddle while nurse was administering Heprin injection.
[2024-08-11] VITALS: BP 90/60; PULSE 80; RESP 24; TEMP 36.4
[2024-08-11 01:09] VITALS: PULSE 80; RESP 22; O2SAT 98
[2024-08-11] MEDS: VALPROIC ACID 250 MG/5 ML 500 MG GT ×3 (05:05→21:42)
[2024-08-11 05:33] VITALS: BP 111/74; PULSE 81; RESP 18; TEMP 36.4; O2SAT 96
--- NOTE | 2024-08-11 06:15 | PC.NURSE ---
Resident noted to grab at Trach when nurse was suctioning resident. Nurse had to redirect multiple times.
[2024-08-11 06:22] VITALS: PULSE 74; RESP 18; O2SAT 96
[2024-08-11] MEDS: BUSPIRONE 10 MG TABLET GT ×2 (08:24→20:20)
[2024-08-11] MEDS: CHOLECALCIFEROL (VITAMIN D3) 25 MCG TABLET GT ×2 (08:26→20:22)
[2024-08-11] MEDS: ASPIRIN 81 MG TAB.CHEW GT (08:26)
[2024-08-11] MEDS: levETIRAcetam 100 MG/ML SOLUTION 1000 MG GT ×2 (08:27→20:22)
[2024-08-11] MEDS: HEPARIN 5,000 UNIT/ML VIAL 5000 UNIT SC ×2 (08:29→20:22)
[2024-08-11 12:47] VITALS: PULSE 73; RESP 22; O2SAT 98
[2024-08-11 19:20] VITALS: PULSE 80; RESP 18; RESP 32; O2SAT 99
[2024-08-11] MEDS: ATORVASTATIN 20 MG TABLET 40 MG GT (20:21)
[2024-08-12] VITALS (8 sets, daily range): BP systolic 102–144; BP diastolic 64–82; PULSE 77–88; RESP 18–26; TEMP 36.2–36.9; O2SAT 97–99
[2024-08-12] MEDS: VALPROIC ACID 250 MG/5 ML 500 MG GT ×3 (05:14→21:00)
[2024-08-12] MEDS: BUSPIRONE 10 MG TABLET GT ×2 (09:00→20:55)
[2024-08-12] MEDS: ASPIRIN 81 MG TAB.CHEW GT (09:00)
[2024-08-12] MEDS: CHOLECALCIFEROL (VITAMIN D3) 25 MCG TABLET GT ×2 (09:01→20:56)
[2024-08-12] MEDS: levETIRAcetam 100 MG/ML SOLUTION 1000 MG GT ×2 (09:05→20:57)
[2024-08-12] MEDS: HEPARIN 5,000 UNIT/ML VIAL 5000 UNIT SC ×2 (09:16→20:56)
--- NOTE | 2024-08-12 15:07 | PC.SS ---
Resident seen by restoration technician/ Dr. Spring had routine toe nail trim with no new orders or recommendations. Resident will continue current care.
[2024-08-12] MEDS: INSULIN LISPRO 100 UNIT/ML SC (17:12)
[2024-08-12] MEDS: INSULN SC (17:12)
[2024-08-12] MEDS: ATORVASTATIN 20 MG TABLET 40 MG GT (20:56)
[2024-08-13] VITALS (8 sets, daily range): BP systolic 112–131; BP diastolic 75–89; PULSE 63–92; RESP 3–30; TEMP 36.1–36.8; O2SAT 98–99
[2024-08-13] MEDS: VALPROIC ACID 250 MG/5 ML 500 MG GT ×3 (05:00→21:35)
[2024-08-13] MEDS: levETIRAcetam 100 MG/ML SOLUTION 1000 MG GT ×2 (08:47→20:32)
[2024-08-13] MEDS: CHOLECALCIFEROL (VITAMIN D3) 25 MCG TABLET GT ×2 (08:47→20:32)
[2024-08-13] MEDS: BUSPIRONE 10 MG TABLET GT (08:47)
[2024-08-13] MEDS: ASPIRIN 81 MG TAB.CHEW GT (08:47)
[2024-08-13] MEDS: HEPARIN 5,000 UNIT/ML VIAL 5000 UNIT SC ×2 (08:48→20:32)
--- NOTE | 2024-08-13 13:10 | ESPR_ITS ---
Progress Note - SubAcute DIAGNOSIS (1) Chronic respiratory failure: Status: Chronic (2) Ventilator dependent: Status: Chronic (3) Tracheostomy dependence: Status: Chronic (4) PEG (percutaneous endoscopic gastrostomy) status: Status: Chronic (5) Essential hypertension: Status: Chronic (6) Seizures: Status: Chronic (7) Chronic anoxic encephalopathy: Status: Chronic SUBJECTIVE Fever:: none Shortness of Breath:: none Pain:: none OBJECTIVE Most recent vital signs: Last Vital Signs Temp 97.5 F 08/18/24 18:00 Pulse 89 08/18/24 19:40 Resp 20 08/18/24 19:40 BP 126/78 08/18/24 18:00 Pulse Ox 100 08/18/24 19:40 O2 Del Method Mechanical Ventilation 08/18/24 06:00 FiO2 30 08/18/24 22:00 Neurological:: awake (orientation x 0, no cognitive response) Respiratory:: lungs clear Cardiovascular: RRR Abdomen: soft Extremities:: deformities Tracheostomy:: to ventilator Feeding per:: G tube Complaints:: none ASSESSMENT & PLAN Assessment: 69 yrs of age female being admitted with Hypertension/hyperlipidemia/epilepsy, recently treated in acute care for UTI sepsis and on Vancomycn On 07-07-24 pt was sent to ER for worsening hyponatremia inspite of replacement and hyperkalemia and pt returned the same day after iv correction of the above. Since then stable on replacement therapy. 07-26-24 sent to ER and admitted for UTI/sepsis ?, started on Zosyn and returned to [facility] on 07-29-24 in a stable condition. Pt remains afebrile and VSS. Plan: Current treatment reviewed and continued. Electrolyte disturbunces being addressed.
[2024-08-13] MEDS: ATORVASTATIN 20 MG TABLET 40 MG GT (20:31)
[2024-08-13] MEDS: ACETAMINOPHEN 325 MG TABLET 650 MG GT (22:33)
[2024-08-14] VITALS: BP 143/83; PULSE 85; RESP 25; TEMP 36.4
[2024-08-14 02:00] VITALS: PULSE 69; RESP 24; O2SAT 99
[2024-08-14] MEDS: VALPROIC ACID 250 MG/5 ML 500 MG GT ×3 (05:00→21:26)
[2024-08-14 06:00] VITALS: BP 114/68; PULSE 82; RESP 20; TEMP 36.1; O2SAT 100
[2024-08-14 06:58] VITALS: PULSE 81; RESP 18; RESP 23; O2SAT 98
[2024-08-14] MEDS: HEPARIN 5,000 UNIT/ML VIAL 5000 UNIT SC ×2 (09:18→21:28)
[2024-08-14] MEDS: ASPIRIN 81 MG TAB.CHEW GT (09:30)
[2024-08-14] MEDS: CHOLECALCIFEROL (VITAMIN D3) 25 MCG TABLET GT ×2 (09:30→21:27)
[2024-08-14] MEDS: levETIRAcetam 100 MG/ML SOLUTION 1000 MG GT ×2 (09:30→21:30)
[2024-08-14 13:01] VITALS: PULSE 86; RESP 20; O2SAT 98
[2024-08-14 19:06] VITALS: PULSE 89; RESP 18; O2SAT 100
[2024-08-14] MEDS: ATORVASTATIN 20 MG TABLET 40 MG GT (21:27)
[2024-08-14] MEDS: BUSPIRONE 10 MG TABLET GT (21:27)
[2024-08-15] VITALS: BP 119/70; PULSE 83; RESP 19; TEMP 36.3
[2024-08-15 01:09] VITALS: PULSE 72; RESP 18; O2SAT 100
[2024-08-15] MEDS: VALPROIC ACID 250 MG/5 ML 500 MG GT ×3 (05:21→21:17)
[2024-08-15 06:00] VITALS: BP 135/75; PULSE 81; RESP 18; TEMP 36.2
[2024-08-15 07:12] VITALS: PULSE 82; RESP 21; O2SAT 98
[2024-08-15] MEDS: BUSPIRONE 10 MG TABLET GT ×2 (09:01→21:17)
[2024-08-15] MEDS: ASPIRIN 81 MG TAB.CHEW GT (09:01)
[2024-08-15] MEDS: CHOLECALCIFEROL (VITAMIN D3) 25 MCG TABLET GT ×2 (09:01→21:18)
[2024-08-15] MEDS: HEPARIN 5,000 UNIT/ML VIAL 5000 UNIT SC ×2 (09:03→21:18)
[2024-08-15] MEDS: levETIRAcetam 100 MG/ML SOLUTION 1000 MG GT ×2 (09:04→21:18)
[2024-08-15] MEDS: ACETAMINOPHEN 325 MG TABLET 650 MG GT (11:00)
[2024-08-15 12:48] VITALS: PULSE 78; RESP 18; O2SAT 97
[2024-08-15 19:00] VITALS: PULSE 80; RESP 18; O2SAT 98
[2024-08-15] MEDS: ATORVASTATIN 20 MG TABLET 40 MG GT (21:17)
[2024-08-16] VITALS: BP 149/76; PULSE 88; RESP 18; TEMP 36.3
[2024-08-16 00:40] VITALS: PULSE 84; RESP 19; O2SAT 99
[2024-08-16 06:00] VITALS: BP 126/74; PULSE 88; RESP 18; TEMP 36.5; O2SAT 97
[2024-08-16 06:54] VITALS: PULSE 79; RESP 18; RESP 20; O2SAT 98
[2024-08-16] MEDS: BUSPIRONE 10 MG TABLET GT ×2 (09:16→21:34)
[2024-08-16] MEDS: ASPIRIN 81 MG TAB.CHEW GT (09:17)
[2024-08-16] MEDS: CHOLECALCIFEROL (VITAMIN D3) 25 MCG TABLET GT ×2 (09:17→21:34)
[2024-08-16] MEDS: HEPARIN 5,000 UNIT/ML VIAL 5000 UNIT SC ×2 (09:19→21:35)
[2024-08-16] MEDS: levETIRAcetam 100 MG/ML SOLUTION 1000 MG GT ×2 (09:20→21:35)
[2024-08-16 12:38] VITALS: PULSE 82; RESP 18; O2SAT 98
[2024-08-16] MEDS: DEX/HYPRO/GLY ARTIFICAL TEARS 225 DROP/15 ML BTL BOTH EYES ×2 (15:55→21:34)
[2024-08-16] MEDS: VALPROIC ACID 250 MG/5 ML 500 MG GT ×2 (15:55→21:32)
[2024-08-16 17:25] VITALS: PULSE 81; RESP 16; O2SAT 98
[2024-08-16] MEDS: ACETAMINOPHEN 325 MG TABLET 650 MG GT (21:30)
[2024-08-16] MEDS: ATORVASTATIN 20 MG TABLET 40 MG GT (21:34)
[2024-08-17] VITALS (8 sets, daily range): BP systolic 104–121; BP diastolic 60–78; PULSE 78–87; RESP 18–23; TEMP 36.2–36.5; O2SAT 96–99
[2024-08-17] MEDS: DEX/HYPRO/GLY ARTIFICAL TEARS 225 DROP/15 ML BTL BOTH EYES ×3 (05:28→21:00)
[2024-08-17] MEDS: VALPROIC ACID 250 MG/5 ML 500 MG GT ×3 (05:50→21:00)
[2024-08-17 06:20] LABS: Basophils # (Auto) 0.2 Thou/mm3 (0.0-0.2); Basophils % (Auto) 1 % (0-2.5); Eosinophils # (Auto) 1.6 Thou/mm3 (0.0-0.5); Eosinophils % (Auto) 9 % (0-10); Hematocrit 24.8 % (36.0-46.0); Immature Granulocytes % (Auto) 3 % (0-0); Immature Granulocytes Auto 0.54 Thou/mm3 (0.00-0.00); Lymphocytes # (Auto) 3.9 Thou/mm3 (1.0-4.8); Lymphocytes % (Auto) 22 % (10-50); Mean Corpuscular HGB Conc 33.5 g/dl (31.0-37.0); Mean Corpuscular Hemoglobin 31.2 pg (25.0-35.0); Mean Corpuscular Volume 93 fL (80-100); Monocytes # (Auto) 2.8 Thou/mm3 (0.0-0.8); Monocytes % (Auto) 15 % (0-12); Neutrophils # (Auto) 9.1 Thou/mm3 (1.8-7.7); Neutrophils % (Auto) 50 % (37-80); Nucleated Red Blood Cell # 0.04 Thou/mm3 (0.00-0.00); Nucleated Red Blood Cell % 0 /100 WBC (0); Platelet Count 418 Thou/mm3 (140-440); RDW Standard Deviation 60.7 fL (36.4-46.3); Red Blood Count 2.66 Miln/mm3 (4.00-5.20)
[2024-08-17 06:21] LABS: Hemoglobin 8.3 g/dL (12.0-16.0)
[2024-08-17] MEDS: HEPARIN 5,000 UNIT/ML VIAL 5000 UNIT SC ×2 (09:19→21:00)
[2024-08-17] MEDS: BUSPIRONE 10 MG TABLET GT ×2 (09:22→20:57)
[2024-08-17] MEDS: ASPIRIN 81 MG TAB.CHEW GT (09:23)
[2024-08-17] MEDS: levETIRAcetam 100 MG/ML SOLUTION 1000 MG GT ×2 (09:23→21:00)
[2024-08-17] MEDS: CHOLECALCIFEROL (VITAMIN D3) 25 MCG TABLET GT ×2 (09:23→20:58)
[2024-08-17] MEDS: ATORVASTATIN 20 MG TABLET 40 MG GT (20:57)
[2024-08-17] MEDS: ACETAMINOPHEN 325 MG TABLET 650 MG GT (21:06)
--- NOTE | 2024-08-17 21:46 | PC.NURSE ---
Received CBC results back, WBC has decreased to 18.0, next CBC to be done on 08/25/24
--- NOTE | 2024-08-17 23:19 | PD.SAPROG ---
Progress Note - SubAcute DIAGNOSIS (1) Chronic respiratory failure: Status: Chronic (2) Ventilator dependent: Status: Chronic (3) Tracheostomy dependence: Status: Chronic (4) PEG (percutaneous endoscopic gastrostomy) status: Status: Chronic (5) Essential hypertension: Status: Chronic (6) Seizures: Status: Chronic (7) Chronic anoxic encephalopathy: Status: Chronic SUBJECTIVE Fever:: none Shortness of Breath:: none Pain:: none OBJECTIVE Most recent vital signs: Last Vital Signs Temp 97.3 F 08/17/24 17:52 Pulse 84 08/17/24 19:35 Resp 22 H 08/17/24 19:35 BP 121/60 08/17/24 17:52 Pulse Ox 99 08/17/24 19:35 O2 Del Method Mechanical Ventilation 08/15/24 06:00 FiO2 30 08/17/24 19:35 Neurological:: awake (orientation x 0, no cognitive response) Respiratory:: lungs clear Cardiovascular: RRR Abdomen: soft Extremities:: deformities Tracheostomy:: to ventilator Feeding per:: G tube Complaints:: none ASSESSMENT & PLAN Assessment: 69 yrs of age female being admitted with Hypertension/hyperlipidemia/epilepsy, recently treated in acute care for UTI sepsis and on Vancomycn On 07-07-24 pt was sent to ER for worsening hyponatremia inspite of replacement and hyperkalemia and pt returned the same day after iv correction of the above. Since then stable on replacement therapy. 07-26-24 sent to ER and admitted for UTI/sepsis ?, started on Zosyn and returned to [facility] on 07-29-24 in a stable condition. Pt remains afebrile and VSS. Plan: Current treatment reviewed and continued. Electrolyte disturbunces being addressed.
[2024-08-18] VITALS (8 sets, daily range): BP systolic 121–126; BP diastolic 76–94; PULSE 73–89; RESP 18–83; TEMP 36.2–36.6; O2SAT 98–100
[2024-08-18] MEDS: VALPROIC ACID 250 MG/5 ML 500 MG GT ×3 (05:21→21:02)
[2024-08-18] MEDS: DEX/HYPRO/GLY ARTIFICAL TEARS 225 DROP/15 ML BTL BOTH EYES ×3 (05:22→21:04)
[2024-08-18] MEDS: BUSPIRONE 10 MG TABLET GT ×2 (09:20→21:04)
[2024-08-18] MEDS: CHOLECALCIFEROL (VITAMIN D3) 25 MCG TABLET GT ×2 (09:21→21:05)
[2024-08-18] MEDS: ASPIRIN 81 MG TAB.CHEW GT (09:21)
[2024-08-18] MEDS: HEPARIN 5,000 UNIT/ML VIAL 5000 UNIT SC ×2 (09:23→21:05)
[2024-08-18] MEDS: levETIRAcetam 100 MG/ML SOLUTION 1000 MG GT ×2 (09:24→21:05)
[2024-08-18] MEDS: ATORVASTATIN 20 MG TABLET 40 MG GT (21:04)
[2024-08-18] MEDS: ACETAMINOPHEN 325 MG TABLET 650 MG GT (21:12)
[2024-08-19] VITALS: BP 109/71; PULSE 72; RESP 18; TEMP 36.2
[2024-08-19 00:55] VITALS: PULSE 81; RESP 28; O2SAT 100
[2024-08-19] MEDS: DEX/HYPRO/GLY ARTIFICAL TEARS 225 DROP/15 ML BTL BOTH EYES ×3 (05:00→21:03)
[2024-08-19] MEDS: VALPROIC ACID 250 MG/5 ML 500 MG GT ×3 (05:00→21:03)
[2024-08-19 06:00] VITALS: BP 103/64; PULSE 76; RESP 19; TEMP 36.3; O2SAT 98
[2024-08-19 06:49] VITALS: PULSE 82; RESP 20; RESP 24; O2SAT 99
[2024-08-19] MEDS: BUSPIRONE 10 MG TABLET GT ×2 (08:38→20:55)
[2024-08-19] MEDS: ASPIRIN 81 MG TAB.CHEW GT (08:38)
[2024-08-19] MEDS: CHOLECALCIFEROL (VITAMIN D3) 25 MCG TABLET GT ×2 (08:38→20:56)
[2024-08-19] MEDS: levETIRAcetam 100 MG/ML SOLUTION 1000 MG GT ×2 (08:41→20:56)
[2024-08-19] MEDS: HEPARIN 5,000 UNIT/ML VIAL 5000 UNIT SC ×2 (08:41→20:56)
[2024-08-19 12:53] VITALS: PULSE 85; RESP 25; O2SAT 98
[2024-08-19 19:22] VITALS: PULSE 87; RESP 21; O2SAT 99
[2024-08-19] MEDS: ATORVASTATIN 20 MG TABLET 40 MG GT (20:56)
[2024-08-20] VITALS (8 sets, daily range): BP systolic 107–138; BP diastolic 71–81; PULSE 79–91; RESP 14–30; TEMP 36.3–36.6; O2SAT 98–99
[2024-08-20] MEDS: DEX/HYPRO/GLY ARTIFICAL TEARS 225 DROP/15 ML BTL BOTH EYES ×3 (05:33→21:17)
[2024-08-20] MEDS: VALPROIC ACID 250 MG/5 ML 500 MG GT ×3 (05:34→21:17)
[2024-08-20] MEDS: ASPIRIN 81 MG TAB.CHEW GT (08:11)
[2024-08-20] MEDS: BUSPIRONE 10 MG TABLET GT ×2 (08:13→21:18)
[2024-08-20] MEDS: CHOLECALCIFEROL (VITAMIN D3) 25 MCG TABLET GT ×2 (08:13→21:19)
[2024-08-20] MEDS: HEPARIN 5,000 UNIT/ML VIAL 5000 UNIT SC (08:14)
[2024-08-20] MEDS: levETIRAcetam 100 MG/ML SOLUTION 1000 MG GT ×2 (08:14→21:19)
--- NOTE | 2024-08-20 17:22 | PC.NURSE ---
Resident on Heparin 5,000 units every 12 hours. Noted with multiple discolorations to abdomen and noted to have hardened areas from the injection sites. Dr Silverio made aware with order received to discontinue the heparin and start on Lovenox 40 mg daily x 3 months
[2024-08-20] MEDS: ATORVASTATIN 20 MG TABLET 40 MG GT (21:18)
[2024-08-21] VITALS (7 sets, daily range): BP systolic 90–117; BP diastolic 60–70; PULSE 66–90; RESP 18–28; TEMP 35.9–36.6; O2SAT 96–99
[2024-08-21] MEDS: DEX/HYPRO/GLY ARTIFICAL TEARS 225 DROP/15 ML BTL BOTH EYES ×3 (05:37→21:05)
[2024-08-21] MEDS: VALPROIC ACID 250 MG/5 ML 500 MG GT ×3 (05:37→21:06)
[2024-08-21] MEDS: ENOXAPARIN SODIUM 40 MG/0.4 ML SYRINGE SC (09:08)
[2024-08-21] MEDS: BUSPIRONE 10 MG TABLET GT ×2 (09:36→21:07)
[2024-08-21] MEDS: ASPIRIN 81 MG TAB.CHEW GT (09:37)
[2024-08-21] MEDS: levETIRAcetam 100 MG/ML SOLUTION 1000 MG GT ×2 (09:37→21:08)
[2024-08-21] MEDS: CHOLECALCIFEROL (VITAMIN D3) 25 MCG TABLET GT ×2 (09:37→21:07)
[2024-08-21] MEDS: ATORVASTATIN 20 MG TABLET 40 MG GT (21:07)
--- NOTE | 2024-08-21 22:53 | PD.SAPROG ---
Progress Note - SubAcute DIAGNOSIS (1) Chronic respiratory failure: Status: Chronic (2) Ventilator dependent: Status: Chronic (3) Tracheostomy dependence: Status: Chronic (4) PEG (percutaneous endoscopic gastrostomy) status: Status: Chronic (5) Essential hypertension: Status: Chronic (6) Seizures: Status: Chronic (7) Chronic anoxic encephalopathy: Status: Chronic SUBJECTIVE Fever:: none Shortness of Breath:: none Pain:: none OBJECTIVE Most recent vital signs: Last Vital Signs Temp 97.2 F 08/21/24 17:48 Pulse 90 08/21/24 17:48 Resp 28 H 08/21/24 17:48 BP 117/66 08/21/24 17:48 Pulse Ox 97 08/21/24 17:48 O2 Del Method Mechanical Ventilation 08/20/24 17:07 FiO2 30 08/21/24 22:00 Neurological:: awake (orientation x 0, no cognitive response) Respiratory:: lungs clear Cardiovascular: RRR Abdomen: soft Extremities:: deformities Tracheostomy:: to ventilator Feeding per:: G tube Complaints:: none ASSESSMENT & PLAN Assessment: 69 yrs of age female being admitted with Hypertension/hyperlipidemia/epilepsy, recently treated in acute care for UTI sepsis and on Vancomycn On 07-07-24 pt was sent to ER for worsening hyponatremia inspite of replacement and hyperkalemia and pt returned the same day after iv correction of the above. Since then stable on replacement therapy. 07-26-24 sent to ER and admitted for UTI/sepsis ?, started on Zosyn and returned to [facility] on 07-29-24 in a stable condition. Pt remains afebrile and VSS. Plan: Current treatment reviewed and continued. Electrolyte disturbunces being addressed.
[2024-08-22] VITALS (9 sets, daily range): BP systolic 102–129; BP diastolic 60–82; PULSE 60–92; RESP 19–29; TEMP 36.1–36.4; O2SAT 97–100
[2024-08-22] MEDS: VALPROIC ACID 250 MG/5 ML 500 MG GT ×3 (05:38→22:05)
[2024-08-22] MEDS: DEX/HYPRO/GLY ARTIFICAL TEARS 225 DROP/15 ML BTL BOTH EYES ×3 (05:43→22:22)
[2024-08-22] MEDS: BUSPIRONE 10 MG TABLET GT (08:56)
[2024-08-22] MEDS: CHOLECALCIFEROL (VITAMIN D3) 25 MCG TABLET GT ×2 (09:10→22:00)
[2024-08-22] MEDS: ASPIRIN 81 MG TAB.CHEW GT (09:10)
[2024-08-22] MEDS: ENOXAPARIN SODIUM 40 MG/0.4 ML SYRINGE SC (09:11)
[2024-08-22] MEDS: levETIRAcetam 100 MG/ML SOLUTION 1000 MG GT ×2 (09:11→22:00)
[2024-08-22] MEDS: ATORVASTATIN 20 MG TABLET 40 MG GT (22:00)
[2024-08-23] VITALS (8 sets, daily range): BP systolic 147–157; BP diastolic 80–82; PULSE 79–90; RESP 18–28; TEMP 36.4–36.6; O2SAT 97–99
[2024-08-23] MEDS: VALPROIC ACID 250 MG/5 ML 500 MG GT ×3 (05:26→21:39)
[2024-08-23] MEDS: DEX/HYPRO/GLY ARTIFICAL TEARS 225 DROP/15 ML BTL BOTH EYES ×3 (05:26→21:37)
[2024-08-23] MEDS: ASPIRIN 81 MG TAB.CHEW GT (09:08)
[2024-08-23] MEDS: levETIRAcetam 100 MG/ML SOLUTION 1000 MG GT ×2 (09:11→21:43)
[2024-08-23] MEDS: ENOXAPARIN SODIUM 40 MG/0.4 ML SYRINGE SC (09:11)
[2024-08-23] MEDS: CHOLECALCIFEROL (VITAMIN D3) 25 MCG TABLET GT ×2 (09:11→21:42)
--- NOTE | 2024-08-23 09:54 | PD.SAPROG ---
Progress Note - SubAcute DIAGNOSIS (1) Chronic respiratory failure: Status: Chronic (2) Ventilator dependent: Status: Chronic (3) Tracheostomy dependence: Status: Chronic (4) PEG (percutaneous endoscopic gastrostomy) status: Status: Chronic (5) Essential hypertension: Status: Chronic (6) Seizures: Status: Chronic (7) Chronic anoxic encephalopathy: Status: Chronic SUBJECTIVE Fever:: none Shortness of Breath:: none Pain:: none OBJECTIVE Most recent vital signs: Last Vital Signs Temp 97.5 F 08/23/24 06:00 Pulse 80 08/23/24 07:10 Resp 18 08/23/24 07:10 BP 147/80 H 08/23/24 06:00 Pulse Ox 99 08/23/24 07:10 O2 Del Method Mechanical Ventilation 08/20/24 17:07 FiO2 30 08/23/24 07:10 Neurological:: awake (orientation x 0, no cognitive response) Respiratory:: lungs clear Cardiovascular: RRR Abdomen: soft Extremities:: deformities Tracheostomy:: to ventilator Feeding per:: G tube Complaints:: none ASSESSMENT & PLAN Assessment: 69 yrs of age female being admitted with Hypertension/hyperlipidemia/epilepsy, recently treated in acute care for UTI sepsis and on Vancomycn On 07-07-24 pt was sent to ER for worsening hyponatremia inspite of replacement and hyperkalemia and pt returned the same day after iv correction of the above. Since then stable on replacement therapy. 07-26-24 sent to ER and admitted for UTI/sepsis ?, started on Zosyn and returned to [facility] on 07-29-24 in a stable condition. Pt remains afebrile and VSS. Plan: Current treatment reviewed and continued. Electrolyte disturbunces being addressed.
[2024-08-23] MEDS: BUSPIRONE 10 MG TABLET GT ×2 (12:30→21:42)
[2024-08-23] MEDS: ATORVASTATIN 20 MG TABLET 40 MG GT (21:41)
[2024-08-23] MEDS: guaiFENesin Liq 100 MG/5 ML LIQUID 300 MG GT (21:43)
[2024-08-24] VITALS (8 sets, daily range): BP systolic 107–131; BP diastolic 60–74; PULSE 72–90; RESP 18–27; TEMP 36.3–36.6; O2SAT 96–99
[2024-08-24] MEDS: DEX/HYPRO/GLY ARTIFICAL TEARS 225 DROP/15 ML BTL BOTH EYES ×3 (05:02→21:00)
[2024-08-24] MEDS: VALPROIC ACID 250 MG/5 ML 500 MG GT ×3 (05:03→21:00)
[2024-08-24] MEDS: BUSPIRONE 10 MG TABLET GT ×2 (09:40→21:01)
[2024-08-24] MEDS: ASPIRIN 81 MG TAB.CHEW GT (09:41)
[2024-08-24] MEDS: CHOLECALCIFEROL (VITAMIN D3) 25 MCG TABLET GT ×2 (09:41→21:01)
[2024-08-24] MEDS: levETIRAcetam 100 MG/ML SOLUTION 1000 MG GT ×2 (09:41→21:02)
[2024-08-24] MEDS: ENOXAPARIN SODIUM 40 MG/0.4 ML SYRINGE SC (09:41)
[2024-08-24] MEDS: ATORVASTATIN 20 MG TABLET 40 MG GT (21:01)
[2024-08-25] VITALS (8 sets, daily range): BP systolic 118–152; BP diastolic 71–77; PULSE 79–88; RESP 18–27; TEMP 36.2–36.5; O2SAT 97–98
[2024-08-25] MEDS: DEX/HYPRO/GLY ARTIFICAL TEARS 225 DROP/15 ML BTL BOTH EYES ×3 (05:34→21:16)
[2024-08-25] MEDS: VALPROIC ACID 250 MG/5 ML 500 MG GT ×3 (05:34→21:16)
[2024-08-25 07:24] LABS: Basophils # (Auto) 0.1 Thou/mm3 (0.0-0.2); Basophils % (Auto) 1 % (0-2.5); Eosinophils # (Auto) 1.9 Thou/mm3 (0.0-0.5); Eosinophils % (Auto) 10 % (0-10); Hematocrit 24.4 % (36.0-46.0); Immature Granulocytes % (Auto) 3 % (0-0); Immature Granulocytes Auto 0.56 Thou/mm3 (0.00-0.00); Lymphocytes # (Auto) 4.4 Thou/mm3 (1.0-4.8); Lymphocytes % (Auto) 23 % (10-50); Mean Corpuscular HGB Conc 32.4 g/dl (31.0-37.0); Mean Corpuscular Hemoglobin 30.2 pg (25.0-35.0); Mean Corpuscular Volume 93 fL (80-100); Monocytes # (Auto) 2.1 Thou/mm3 (0.0-0.8); Monocytes % (Auto) 11 % (0-12); Neutrophils # (Auto) 10.1 Thou/mm3 (1.8-7.7); Neutrophils % (Auto) 52 % (37-80); Nucleated Red Blood Cell % 0 /100 WBC (0); Platelet Count 369 Thou/mm3 (140-440); RDW Standard Deviation 57.7 fL (36.4-46.3); Red Blood Count 2.62 Miln/mm3 (4.00-5.20); White Blood Count 19.2 Thou/mm3 (3.6-11.0)
[2024-08-25 07:32] LABS: Hemoglobin 7.9 g/dL (12.0-16.0)
[2024-08-25 07:45] LABS: Glucose,Fasting 126 mg/dL (74-106); Phenytoin (Dilantin) < 2.0 mcg/mL
[2024-08-25] MEDS: ASPIRIN 81 MG TAB.CHEW GT (09:18)
[2024-08-25] MEDS: BUSPIRONE 10 MG TABLET GT ×2 (09:18→20:20)
[2024-08-25] MEDS: ENOXAPARIN SODIUM 40 MG/0.4 ML SYRINGE SC (09:19)
[2024-08-25] MEDS: levETIRAcetam 100 MG/ML SOLUTION 1000 MG GT ×2 (09:19→20:22)
[2024-08-25] MEDS: CHOLECALCIFEROL (VITAMIN D3) 25 MCG TABLET GT ×2 (09:19→20:21)
--- NOTE | 2024-08-25 17:12 | PC.NURSE ---
Received CBC result and fasting glucose MD. made aware no new order received.
[2024-08-25] MEDS: ATORVASTATIN 20 MG TABLET 40 MG GT (20:21)
[2024-08-25] MEDS: ACETAMINOPHEN 325 MG TABLET 650 MG GT (20:22)
[2024-08-26] VITALS (8 sets, daily range): BP systolic 103–156; BP diastolic 67–82; PULSE 70–87; RESP 18–26; TEMP 36.3–36.6; O2SAT 96–98
[2024-08-26] MEDS: DEX/HYPRO/GLY ARTIFICAL TEARS 225 DROP/15 ML BTL BOTH EYES ×3 (05:23→21:02)
[2024-08-26] MEDS: VALPROIC ACID 250 MG/5 ML 500 MG GT ×3 (05:24→21:02)
[2024-08-26] MEDS: ASPIRIN 81 MG TAB.CHEW GT (08:58)
[2024-08-26] MEDS: CHOLECALCIFEROL (VITAMIN D3) 25 MCG TABLET GT ×2 (08:59→20:08)
[2024-08-26] MEDS: levETIRAcetam 100 MG/ML SOLUTION 1000 MG GT ×2 (09:00→20:08)
[2024-08-26] MEDS: ENOXAPARIN SODIUM 40 MG/0.4 ML SYRINGE SC (09:00)
[2024-08-26] MEDS: BUSPIRONE 10 MG TABLET GT ×2 (09:11→20:07)
[2024-08-26 10:13] LABS: Misc Send Out* See Sep Rpt
[2024-08-26] MEDS: ATORVASTATIN 20 MG TABLET 40 MG GT (20:08)
[2024-08-26] MEDS: ACETAMINOPHEN 325 MG TABLET 650 MG GT (22:55)
[2024-08-27] VITALS (8 sets, daily range): BP systolic 96–131; BP diastolic 58–85; PULSE 64–92; RESP 18–26; TEMP 36.1–36.8; O2SAT 94–99
[2024-08-27] MEDS: DEX/HYPRO/GLY ARTIFICAL TEARS 225 DROP/15 ML BTL BOTH EYES ×3 (05:01→21:24)
[2024-08-27] MEDS: VALPROIC ACID 250 MG/5 ML 500 MG GT ×3 (05:01→21:24)
[2024-08-27] MEDS: ASPIRIN 81 MG TAB.CHEW GT (08:49)
[2024-08-27] MEDS: BUSPIRONE 10 MG TABLET GT ×2 (08:49→21:23)
[2024-08-27] MEDS: CHOLECALCIFEROL (VITAMIN D3) 25 MCG TABLET GT ×2 (08:49→21:23)
[2024-08-27] MEDS: levETIRAcetam 100 MG/ML SOLUTION 1000 MG GT ×2 (08:50→21:24)
[2024-08-27] MEDS: ENOXAPARIN SODIUM 40 MG/0.4 ML SYRINGE SC (09:00)
[2024-08-27] MEDS: ATORVASTATIN 20 MG TABLET 40 MG GT (21:22)
[2024-08-28] VITALS (8 sets, daily range): BP systolic 113–158; BP diastolic 71–83; PULSE 64–92; RESP 17–27; TEMP 36.2–36.6; O2SAT 97–99
[2024-08-28] MEDS: VALPROIC ACID 250 MG/5 ML 500 MG GT ×3 (05:13→21:23)
[2024-08-28] MEDS: DEX/HYPRO/GLY ARTIFICAL TEARS 225 DROP/15 ML BTL BOTH EYES ×3 (05:13→21:23)
[2024-08-28] MEDS: ENOXAPARIN SODIUM 40 MG/0.4 ML SYRINGE SC (08:56)
[2024-08-28] MEDS: CHOLECALCIFEROL (VITAMIN D3) 25 MCG TABLET GT ×2 (08:56→21:22)
[2024-08-28] MEDS: BUSPIRONE 10 MG TABLET GT ×2 (08:56→21:22)
[2024-08-28] MEDS: levETIRAcetam 100 MG/ML SOLUTION 1000 MG GT ×2 (08:56→21:22)
[2024-08-28] MEDS: ASPIRIN 81 MG TAB.CHEW GT (08:56)
--- NOTE | 2024-08-28 16:30 | PD.SAPROG ---
Progress Note - SubAcute DIAGNOSIS (1) Chronic respiratory failure: Status: Chronic (2) Ventilator dependent: Status: Chronic (3) Tracheostomy dependence: Status: Chronic (4) PEG (percutaneous endoscopic gastrostomy) status: Status: Chronic (5) Essential hypertension: Status: Chronic (6) Seizures: Status: Chronic (7) Chronic anoxic encephalopathy: Status: Chronic SUBJECTIVE Fever:: none Shortness of Breath:: none Pain:: none OBJECTIVE Most recent vital signs: Last Vital Signs Temp 97.8 F 09/01/24 05:46 Pulse 84 09/01/24 07:16 Resp 18 09/01/24 07:16 BP 116/68 09/01/24 05:46 Pulse Ox 98 09/01/24 07:16 O2 Del Method Mechanical Ventilation 09/01/24 05:46 FiO2 30 09/01/24 07:16 Neurological:: awake (orientation x 0, no cognitive response) Respiratory:: lungs clear Cardiovascular: RRR Abdomen: soft Extremities:: deformities Tracheostomy:: to ventilator Feeding per:: G tube Complaints:: none ASSESSMENT & PLAN Assessment: 69 yrs of age female being admitted with Hypertension/hyperlipidemia/epilepsy, recently treated in acute care for UTI sepsis and on Vancomycn On 07-07-24 pt was sent to ER for worsening hyponatremia inspite of replacement and hyperkalemia and pt returned the same day after iv correction of the above. Since then stable on replacement therapy. 07-26-24 sent to ER and admitted for UTI/sepsis ?, started on Zosyn and returned to [facility] on 07-29-24 in a stable condition. Pt remains afebrile and VSS. Plan: Current treatment reviewed and continued. Electrolyte disturbunces being addressed.
[2024-08-28] MEDS: ATORVASTATIN 20 MG TABLET 40 MG GT (21:21)
[2024-08-29] VITALS (8 sets, daily range): BP systolic 100–122; BP diastolic 60–78; PULSE 79–90; RESP 18–26; TEMP 36.5–36.6; O2SAT 95–98
[2024-08-29] MEDS: DEX/HYPRO/GLY ARTIFICAL TEARS 225 DROP/15 ML BTL BOTH EYES ×3 (05:56→21:40)
[2024-08-29] MEDS: VALPROIC ACID 250 MG/5 ML 500 MG GT ×3 (05:57→21:40)
[2024-08-29] MEDS: BUSPIRONE 10 MG TABLET GT ×2 (09:40→21:41)
[2024-08-29] MEDS: ASPIRIN 81 MG TAB.CHEW GT (09:41)
[2024-08-29] MEDS: CHOLECALCIFEROL (VITAMIN D3) 25 MCG TABLET GT ×2 (09:41→21:41)
[2024-08-29] MEDS: levETIRAcetam 100 MG/ML SOLUTION 1000 MG GT ×2 (09:42→21:40)
[2024-08-29] MEDS: ENOXAPARIN SODIUM 40 MG/0.4 ML SYRINGE SC (09:42)
[2024-08-29] MEDS: ATORVASTATIN 20 MG TABLET 40 MG GT (21:41)
[2024-08-30] VITALS (7 sets, daily range): BP systolic 101–132; BP diastolic 61–82; PULSE 72–88; RESP 18–22; TEMP 36.1–36.9; O2SAT 95–99
[2024-08-30] MEDS: DEX/HYPRO/GLY ARTIFICAL TEARS 225 DROP/15 ML BTL BOTH EYES ×3 (05:27→21:12)
[2024-08-30] MEDS: VALPROIC ACID 250 MG/5 ML 500 MG GT ×3 (05:28→21:12)
[2024-08-30] MEDS: ASPIRIN 81 MG TAB.CHEW GT (08:31)
[2024-08-30] MEDS: BUSPIRONE 10 MG TABLET GT ×2 (08:31→21:12)
[2024-08-30] MEDS: ENOXAPARIN SODIUM 40 MG/0.4 ML SYRINGE SC (08:32)
[2024-08-30] MEDS: levETIRAcetam 100 MG/ML SOLUTION 1000 MG GT ×2 (08:32→21:12)
[2024-08-30] MEDS: CHOLECALCIFEROL (VITAMIN D3) 25 MCG TABLET GT ×2 (08:32→21:12)
[2024-08-30] MEDS: ATORVASTATIN 20 MG TABLET 40 MG GT (21:12)
[2024-08-31] VITALS (7 sets, daily range): BP systolic 100–129; BP diastolic 65–75; PULSE 73–86; RESP 18–28; TEMP 36.2–36.6; O2SAT 98–100
[2024-08-31] MEDS: DEX/HYPRO/GLY ARTIFICAL TEARS 225 DROP/15 ML BTL BOTH EYES ×3 (05:41→21:27)
[2024-08-31] MEDS: VALPROIC ACID 250 MG/5 ML 500 MG GT ×3 (05:42→21:27)
[2024-08-31] MEDS: ASPIRIN 81 MG TAB.CHEW GT (08:30)
[2024-08-31] MEDS: BUSPIRONE 10 MG TABLET GT ×2 (08:30→21:27)
[2024-08-31] MEDS: CHOLECALCIFEROL (VITAMIN D3) 25 MCG TABLET GT ×2 (08:31→21:27)
[2024-08-31] MEDS: levETIRAcetam 100 MG/ML SOLUTION 1000 MG GT ×2 (08:34→21:27)
[2024-08-31] MEDS: ENOXAPARIN SODIUM 40 MG/0.4 ML SYRINGE SC (09:14)
[2024-08-31] MEDS: ATORVASTATIN 20 MG TABLET 40 MG GT (21:27)
[2024-08-31] MEDS: ACETAMINOPHEN 325 MG TABLET 650 MG GT (21:43)
[2024-09-01] VITALS (8 sets, daily range): BP systolic 110–116; BP diastolic 58–76; PULSE 72–93; RESP 18–28; TEMP 36.4–36.7; O2SAT 96–99
[2024-09-01] MEDS: ACETAMINOPHEN 325 MG TABLET 650 MG GT ×2 (04:52→21:11)
[2024-09-01] MEDS: VALPROIC ACID 250 MG/5 ML 500 MG GT ×3 (05:02→21:11)
[2024-09-01] MEDS: DEX/HYPRO/GLY ARTIFICAL TEARS 225 DROP/15 ML BTL BOTH EYES ×3 (05:03→21:11)
--- NOTE | 2024-09-01 07:49 | PD.SAPROG ---
Progress Note - SubAcute DIAGNOSIS (1) Chronic respiratory failure: Status: Chronic (2) Ventilator dependent: Status: Chronic (3) Tracheostomy dependence: Status: Chronic (4) PEG (percutaneous endoscopic gastrostomy) status: Status: Chronic (5) Essential hypertension: Status: Chronic (6) Seizures: Status: Chronic (7) Chronic anoxic encephalopathy: Status: Chronic SUBJECTIVE Fever:: none Shortness of Breath:: none Pain:: none OBJECTIVE Most recent vital signs: Last Vital Signs Temp 97.8 F 09/01/24 05:46 Pulse 84 09/01/24 07:16 Resp 18 09/01/24 07:16 BP 116/68 09/01/24 05:46 Pulse Ox 98 09/01/24 07:16 O2 Del Method Mechanical Ventilation 09/01/24 05:46 FiO2 30 09/01/24 07:16 Neurological:: awake (orientation x 0, no cognitive response) Respiratory:: lungs clear Cardiovascular: RRR Abdomen: soft Extremities:: deformities Tracheostomy:: to ventilator Feeding per:: G tube Complaints:: none ASSESSMENT & PLAN Assessment: 69 yrs of age female being admitted with Hypertension/hyperlipidemia/epilepsy, recently treated in acute care for UTI sepsis and on Vancomycn On 07-07-24 pt was sent to ER for worsening hyponatremia inspite of replacement and hyperkalemia and pt returned the same day after iv correction of the above. Since then stable on replacement therapy. 07-26-24 sent to ER and admitted for UTI/sepsis ?, started on Zosyn and returned to [facility] on 07-29-24 in a stable condition. Pt remains afebrile and VSS. Plan: Current treatment reviewed and continued. Electrolyte disturbunces being addressed.
[2024-09-01] MEDS: BUSPIRONE 10 MG TABLET GT ×2 (09:04→21:11)
[2024-09-01] MEDS: ASPIRIN 81 MG TAB.CHEW GT (09:05)
[2024-09-01] MEDS: ENOXAPARIN SODIUM 40 MG/0.4 ML SYRINGE SC (09:06)
[2024-09-01] MEDS: CHOLECALCIFEROL (VITAMIN D3) 25 MCG TABLET GT ×2 (09:06→21:11)
[2024-09-01] MEDS: levETIRAcetam 100 MG/ML SOLUTION 1000 MG GT ×2 (09:08→21:10)
[2024-09-01] MEDS: ATORVASTATIN 20 MG TABLET 40 MG GT (21:11)
[2024-09-02] VITALS (8 sets, daily range): BP systolic 98–153; BP diastolic 56–76; PULSE 69–90; RESP 18–33; TEMP 36.3–36.7; O2SAT 95–99; BMI 31.4
[2024-09-02] MEDS: VALPROIC ACID 250 MG/5 ML 500 MG GT ×3 (05:43→21:19)
[2024-09-02] MEDS: DEX/HYPRO/GLY ARTIFICAL TEARS 225 DROP/15 ML BTL BOTH EYES ×3 (05:43→21:19)
[2024-09-02] MEDS: ENOXAPARIN SODIUM 40 MG/0.4 ML SYRINGE SC (09:17)
[2024-09-02] MEDS: CHOLECALCIFEROL (VITAMIN D3) 25 MCG TABLET GT ×2 (09:23→21:13)
[2024-09-02] MEDS: ASPIRIN 81 MG TAB.CHEW GT (09:23)
[2024-09-02] MEDS: levETIRAcetam 100 MG/ML SOLUTION 1000 MG GT ×2 (09:23→21:18)
[2024-09-02] MEDS: BUSPIRONE 10 MG TABLET GT ×2 (09:25→21:10)
[2024-09-02] MEDS: ATORVASTATIN 20 MG TABLET 40 MG GT (21:13)
[2024-09-03] VITALS (9 sets, daily range): BP systolic 102–130; BP diastolic 67–84; PULSE 72–90; RESP 20–34; TEMP 36–37.3; O2SAT 96–99
[2024-09-03] MEDS: VALPROIC ACID 250 MG/5 ML 500 MG GT ×3 (05:06→21:36)
[2024-09-03] MEDS: DEX/HYPRO/GLY ARTIFICAL TEARS 225 DROP/15 ML BTL BOTH EYES ×3 (05:39→21:36)
[2024-09-03] MEDS: ASPIRIN 81 MG TAB.CHEW GT (09:32)
[2024-09-03] MEDS: BUSPIRONE 10 MG TABLET GT ×2 (09:33→21:36)
[2024-09-03] MEDS: CHOLECALCIFEROL (VITAMIN D3) 25 MCG TABLET GT ×2 (09:33→21:36)
[2024-09-03] MEDS: levETIRAcetam 100 MG/ML SOLUTION 1000 MG GT ×2 (09:34→21:36)
[2024-09-03] MEDS: ENOXAPARIN SODIUM 40 MG/0.4 ML SYRINGE SC (09:34)
[2024-09-03 15:37] LABS: Basophils # (Auto) 0.1 Thou/mm3 (0.0-0.2); Basophils % (Auto) 0 % (0-2.5); Eosinophils # (Auto) 1.2 Thou/mm3 (0.0-0.5); Eosinophils % (Auto) 5 % (0-10); Hematocrit 24.1 % (36.0-46.0); Immature Granulocytes % (Auto) 2 % (0-0); Immature Granulocytes Auto 0.39 Thou/mm3 (0.00-0.00); Lymphocytes # (Auto) 2.7 Thou/mm3 (1.0-4.8); Lymphocytes % (Auto) 12 % (10-50); Mean Corpuscular HGB Conc 32.8 g/dl (31.0-37.0); Mean Corpuscular Hemoglobin 29.8 pg (25.0-35.0); Mean Corpuscular Volume 91 fL (80-100); Monocytes # (Auto) 2.5 Thou/mm3 (0.0-0.8); Monocytes % (Auto) 11 % (0-12); Neutrophils # (Auto) 15.4 Thou/mm3 (1.8-7.7); Neutrophils % (Auto) 69 % (37-80); Nucleated Red Blood Cell # 0.02 Thou/mm3 (0.00-0.00); Nucleated Red Blood Cell % 0 /100 WBC (0); Platelet Count 428 Thou/mm3 (140-440); RDW Standard Deviation 57.3 fL (36.4-46.3); Red Blood Count 2.65 Miln/mm3 (4.00-5.20); White Blood Count 22.2 Thou/mm3 (3.6-11.0)
[2024-09-03 16:10] LABS: Hemoglobin 7.9 g/dL (12.0-16.0)
--- NOTE | 2024-09-03 16:43 | PC.NURSE ---
Dr silverio reviewed resident's CBC results, with WBC of 22.2. Afebrile at this time and no significant. Order received from Dr Silverio to repeat CBC in 10 days and to monitor resident and updated MD if noted with fever.
[2024-09-03] MEDS: ATORVASTATIN 20 MG TABLET 40 MG GT (21:36)
[2024-09-04] VITALS (7 sets, daily range): BP systolic 99–127; BP diastolic 61–82; PULSE 70–94; RESP 18–22; TEMP 36.1–36.3; O2SAT 94–99
[2024-09-04] MEDS: DEX/HYPRO/GLY ARTIFICAL TEARS 225 DROP/15 ML BTL BOTH EYES ×3 (05:33→21:01)
[2024-09-04] MEDS: VALPROIC ACID 250 MG/5 ML 500 MG GT ×3 (05:34→21:01)
[2024-09-04] MEDS: BUSPIRONE 10 MG TABLET GT ×2 (08:02→21:00)
[2024-09-04] MEDS: ASPIRIN 81 MG TAB.CHEW GT (08:03)
[2024-09-04] MEDS: CHOLECALCIFEROL (VITAMIN D3) 25 MCG TABLET GT ×2 (08:03→20:51)
[2024-09-04] MEDS: ENOXAPARIN SODIUM 40 MG/0.4 ML SYRINGE SC (08:04)
[2024-09-04] MEDS: levETIRAcetam 100 MG/ML SOLUTION 1000 MG GT ×2 (08:04→20:51)
[2024-09-04] MEDS: ATORVASTATIN 20 MG TABLET 40 MG GT (20:51)
[2024-09-05] VITALS (8 sets, daily range): BP systolic 95–125; BP diastolic 58–83; PULSE 74–86; RESP 14–20; TEMP 36.3–36.7; O2SAT 95–99
[2024-09-05] MEDS: DEX/HYPRO/GLY ARTIFICAL TEARS 225 DROP/15 ML BTL BOTH EYES ×3 (05:35→21:23)
[2024-09-05] MEDS: VALPROIC ACID 250 MG/5 ML 500 MG GT ×3 (05:35→21:23)
[2024-09-05] MEDS: ENOXAPARIN SODIUM 40 MG/0.4 ML SYRINGE SC (09:00)
[2024-09-05] MEDS: BUSPIRONE 10 MG TABLET GT ×2 (09:07→21:23)
[2024-09-05] MEDS: ASPIRIN 81 MG TAB.CHEW GT (09:08)
[2024-09-05] MEDS: CHOLECALCIFEROL (VITAMIN D3) 25 MCG TABLET GT ×2 (09:08→21:23)
[2024-09-05] MEDS: levETIRAcetam 100 MG/ML SOLUTION 1000 MG GT ×2 (09:09→21:24)
--- NOTE | 2024-09-05 16:27 | PD.SAPROG ---
Progress Note - SubAcute DIAGNOSIS (1) Chronic respiratory failure: Status: Chronic (2) Ventilator dependent: Status: Chronic (3) Tracheostomy dependence: Status: Chronic (4) PEG (percutaneous endoscopic gastrostomy) status: Status: Chronic (5) Essential hypertension: Status: Chronic (6) Seizures: Status: Chronic (7) Chronic anoxic encephalopathy: Status: Chronic SUBJECTIVE Fever:: none Shortness of Breath:: none Pain:: none OBJECTIVE Most recent vital signs: Last Vital Signs Temp 97.4 F 09/05/24 12:00 Pulse 74 09/05/24 13:21 Resp 20 09/05/24 12:00 BP 108/67 09/05/24 12:00 Pulse Ox 97 09/05/24 13:21 O2 Del Method Mechanical Ventilation 09/05/24 06:00 FiO2 30 09/05/24 13:21 Neurological:: awake (orientation x 0, no cognitive response) Respiratory:: lungs clear Cardiovascular: RRR Abdomen: soft Extremities:: deformities Tracheostomy:: to ventilator Feeding per:: G tube Complaints:: none ASSESSMENT & PLAN Assessment: 69 yrs of age female being admitted with Anoxic Encepbalopathy; Hypertension/hyperlipidemia/epilepsy, recently treated in acute care for UTI sepsis and on Vancomycn On 07-07-24 pt was sent to ER for worsening hyponatremia inspite of replacement and hyperkalemia and pt returned the same day after iv correction of the above. Since then stable on replacement therapy. 07-26-24 sent to ER and admitted for UTI/sepsis ?, started on Zosyn and returned to [facility] on 07-29-24 in a stable condition. Pt remains afebrile and VSS. No new change Plan: Current treatment reviewed and continued. Electrolyte disturbunces being addressed.
[2024-09-05] MEDS: ATORVASTATIN 20 MG TABLET 40 MG GT (21:23)
[2024-09-06] VITALS (8 sets, daily range): BP systolic 106–112; BP diastolic 56–76; PULSE 75–92; RESP 18–20; TEMP 36.7–36.9; O2SAT 97–99
[2024-09-06] MEDS: DEX/HYPRO/GLY ARTIFICAL TEARS 225 DROP/15 ML BTL BOTH EYES ×3 (05:27→21:08)
[2024-09-06] MEDS: VALPROIC ACID 250 MG/5 ML 500 MG GT ×3 (05:27→21:08)
[2024-09-06] MEDS: levETIRAcetam 100 MG/ML SOLUTION 1000 MG GT ×2 (08:09→21:07)
[2024-09-06] MEDS: CHOLECALCIFEROL (VITAMIN D3) 25 MCG TABLET GT ×2 (08:09→21:07)
[2024-09-06] MEDS: ENOXAPARIN SODIUM 40 MG/0.4 ML SYRINGE SC (08:09)
[2024-09-06] MEDS: BUSPIRONE 10 MG TABLET GT ×2 (08:09→21:07)
[2024-09-06] MEDS: ASPIRIN 81 MG TAB.CHEW GT (08:09)
[2024-09-06] MEDS: ACETAMINOPHEN 325 MG TABLET 650 MG GT (08:11)
--- NOTE | 2024-09-06 14:02 | PC.SS ---
Resident remains on ventilator with trach in place. She is awake unable to make needs known, her decision maker is her sister. Resident will remain in current care as she has no changes in care or condition, she will continue to have all subacute care needs met by staff. This SSD will continue to make daily contact with resident and will monitor for changes in mood and behavior
[2024-09-06] MEDS: ATORVASTATIN 20 MG TABLET 40 MG GT (21:07)
[2024-09-07] VITALS (7 sets, daily range): BP systolic 102–126; BP diastolic 65–73; PULSE 75–90; RESP 18–19; TEMP 36.2–36.5; O2SAT 95–99
[2024-09-07] MEDS: VALPROIC ACID 250 MG/5 ML 500 MG GT ×3 (05:30→22:36)
[2024-09-07] MEDS: DEX/HYPRO/GLY ARTIFICAL TEARS 225 DROP/15 ML BTL BOTH EYES ×3 (05:30→22:35)
[2024-09-07] MEDS: BUSPIRONE 10 MG TABLET GT ×2 (09:39→21:34)
[2024-09-07] MEDS: ASPIRIN 81 MG TAB.CHEW GT (09:40)
[2024-09-07] MEDS: ENOXAPARIN SODIUM 40 MG/0.4 ML SYRINGE SC (09:41)
[2024-09-07] MEDS: levETIRAcetam 100 MG/ML SOLUTION 1000 MG GT ×2 (09:41→20:44)
[2024-09-07] MEDS: CHOLECALCIFEROL (VITAMIN D3) 25 MCG TABLET GT ×2 (09:41→20:40)
[2024-09-07] MEDS: INSULIN LISPRO 100 UNIT/ML SC (18:33)
[2024-09-07] MEDS: INSULN SC (18:33)
[2024-09-07] MEDS: ATORVASTATIN 20 MG TABLET 40 MG GT (20:39)
[2024-09-07] MEDS: ACETAMINOPHEN 325 MG TABLET 650 MG GT (20:56)
[2024-09-08] VITALS (8 sets, daily range): BP systolic 103–133; BP diastolic 66–72; PULSE 72–96; RESP 18–21; TEMP 36.2–36.3; O2SAT 95–98
[2024-09-08] MEDS: DEX/HYPRO/GLY ARTIFICAL TEARS 225 DROP/15 ML BTL BOTH EYES ×3 (05:35→21:02)
[2024-09-08] MEDS: VALPROIC ACID 250 MG/5 ML 500 MG GT ×3 (05:36→21:02)
[2024-09-08] MEDS: ASPIRIN 81 MG TAB.CHEW GT (09:14)
[2024-09-08] MEDS: CHOLECALCIFEROL (VITAMIN D3) 25 MCG TABLET GT ×2 (09:14→20:53)
[2024-09-08] MEDS: levETIRAcetam 100 MG/ML SOLUTION 1000 MG GT ×2 (09:15→20:54)
[2024-09-08] MEDS: ENOXAPARIN SODIUM 40 MG/0.4 ML SYRINGE SC (09:16)
[2024-09-08] MEDS: BUSPIRONE 10 MG TABLET GT ×2 (09:19→20:56)
[2024-09-08] MEDS: ACETAMINOPHEN 325 MG TABLET 650 MG GT (09:20)
--- NOTE | 2024-09-08 14:33 | PC.NURSE ---
0818-Rectal temp 102.4, Tylenol 650mg given via g-tube per order and cooling measures implemented. Rectal temp rechecked at 0930, 102.3. Ibuprofen given at 0933 per order and rechecked an hour later , 102.0. Cooling measures continued. Resident resting in bed with eyes closed, no s/s of distress or pain noted. RN notified.
--- NOTE | 2024-09-08 14:38 | PC.NURSE ---
1139- Rectal temp checked 101.7. Residuals checked and obtained 150ml. Tube feeding is currently at 50ml/hr and was not increased to 60ml/hr due to residuals. RN notified. Will continue with current plan of care.
--- NOTE | 2024-09-08 14:47 | PC.NURSE ---
1418- Rectal temperature 101.0. Tylenol given via g-tube per order.
[2024-09-08] MEDS: INSULN SC (17:11)
[2024-09-08] MEDS: INSULIN LISPRO 100 UNIT/ML SC (17:11)
[2024-09-08] MEDS: ATORVASTATIN 20 MG TABLET 40 MG GT (20:53)
[2024-09-09] VITALS (8 sets, daily range): BP systolic 103–124; BP diastolic 61–72; PULSE 90–887; RESP 18–41; TEMP 36.3–36.6; O2SAT 92–98
[2024-09-09] MEDS: DEX/HYPRO/GLY ARTIFICAL TEARS 225 DROP/15 ML BTL BOTH EYES ×3 (05:02→21:15)
[2024-09-09] MEDS: INSULN SC (05:02)
[2024-09-09] MEDS: VALPROIC ACID 250 MG/5 ML 500 MG GT ×3 (05:02→21:15)
[2024-09-09] MEDS: INSULIN LISPRO 100 UNIT/ML SC (05:02)
[2024-09-09] MEDS: ACETAMINOPHEN 325 MG TABLET 650 MG GT (05:07)
[2024-09-09] MEDS: CHOLECALCIFEROL (VITAMIN D3) 25 MCG TABLET GT ×2 (08:58→21:16)
[2024-09-09] MEDS: BUSPIRONE 10 MG TABLET GT ×2 (08:58→21:16)
[2024-09-09] MEDS: ENOXAPARIN SODIUM 40 MG/0.4 ML SYRINGE SC (08:58)
[2024-09-09] MEDS: levETIRAcetam 100 MG/ML SOLUTION 1000 MG GT ×2 (08:58→21:15)
[2024-09-09] MEDS: ASPIRIN 81 MG TAB.CHEW GT (08:58)
[2024-09-09] MEDS: ATORVASTATIN 20 MG TABLET 40 MG GT (21:16)
[2024-09-10 00:48] VITALS: PULSE 92; RESP 18; O2SAT 97
[2024-09-10] MEDS: VALPROIC ACID 250 MG/5 ML 500 MG GT ×3 (05:45→21:30)
[2024-09-10] MEDS: DEX/HYPRO/GLY ARTIFICAL TEARS 225 DROP/15 ML BTL BOTH EYES ×3 (05:45→21:31)
[2024-09-10 07:03] VITALS: PULSE 92; RESP 29; O2SAT 96
[2024-09-10] MEDS: BUSPIRONE 10 MG TABLET GT ×2 (09:38→21:31)
[2024-09-10] MEDS: ASPIRIN 81 MG TAB.CHEW GT (09:39)
[2024-09-10] MEDS: CHOLECALCIFEROL (VITAMIN D3) 25 MCG TABLET GT ×2 (09:40→21:31)
[2024-09-10] MEDS: ENOXAPARIN SODIUM 40 MG/0.4 ML SYRINGE SC (09:40)
[2024-09-10] MEDS: levETIRAcetam 100 MG/ML SOLUTION 1000 MG GT ×2 (09:41→21:31)
[2024-09-10 11:54] VITALS: BP 92/60; PULSE 84; RESP 18; TEMP 36.3
[2024-09-10 12:13] VITALS: PULSE 90; RESP 18; O2SAT 98
[2024-09-10 17:54] VITALS: BP 121/78; PULSE 89; RESP 19; TEMP 36.4; O2SAT 94
[2024-09-10 19:48] VITALS: PULSE 91; RESP 18; RESP 24; O2SAT 96
[2024-09-10] MEDS: ATORVASTATIN 20 MG TABLET 40 MG GT (21:31)
[2024-09-11] VITALS (8 sets, daily range): BP systolic 110–142; BP diastolic 70–89; PULSE 71–98; RESP 17–24; TEMP 36.3–36.6; O2SAT 97–100
[2024-09-11] MEDS: ACETAMINOPHEN 325 MG TABLET 650 MG GT ×3 (00:23→20:05)
[2024-09-11] MEDS: DEX/HYPRO/GLY ARTIFICAL TEARS 225 DROP/15 ML BTL BOTH EYES ×3 (05:28→21:04)
[2024-09-11] MEDS: VALPROIC ACID 250 MG/5 ML 500 MG GT ×3 (05:28→21:04)
[2024-09-11] MEDS: CHOLECALCIFEROL (VITAMIN D3) 25 MCG TABLET GT ×2 (09:48→20:02)
[2024-09-11] MEDS: BUSPIRONE 10 MG TABLET GT ×2 (09:48→20:02)
[2024-09-11] MEDS: ASPIRIN 81 MG TAB.CHEW GT (09:48)
[2024-09-11] MEDS: ENOXAPARIN SODIUM 40 MG/0.4 ML SYRINGE SC (09:48)
[2024-09-11] MEDS: levETIRAcetam 100 MG/ML SOLUTION 1000 MG GT ×2 (09:49→20:03)
[2024-09-11] MEDS: INSULIN LISPRO 100 UNIT/ML SC (17:29)
[2024-09-11] MEDS: INSULN SC (17:29)
[2024-09-11] MEDS: ATORVASTATIN 20 MG TABLET 40 MG GT (20:02)
[2024-09-12] VITALS: BP 124/81; PULSE 102; RESP 18; TEMP 36.9
[2024-09-12 01:09] VITALS: PULSE 101; RESP 30; O2SAT 98
[2024-09-12] MEDS: ACETAMINOPHEN 325 MG TABLET 650 MG GT ×2 (04:06→11:15)
[2024-09-12] MEDS: INSULIN LISPRO 100 UNIT/ML SC (05:50)
[2024-09-12] MEDS: DEX/HYPRO/GLY ARTIFICAL TEARS 225 DROP/15 ML BTL BOTH EYES (05:50)
[2024-09-12] MEDS: INSULN SC (05:50)
[2024-09-12 06:00] VITALS: BP 124/80; PULSE 102; RESP 18; TEMP 37.7; O2SAT 94
[2024-09-12 07:09] VITALS: PULSE 91; RESP 36; O2SAT 99
[2024-09-12] MEDS: ASPIRIN 81 MG TAB.CHEW GT (08:01)
[2024-09-12] MEDS: BUSPIRONE 10 MG TABLET GT (08:01)
[2024-09-12] MEDS: CHOLECALCIFEROL (VITAMIN D3) 25 MCG TABLET GT (08:01)
[2024-09-12] MEDS: levETIRAcetam 100 MG/ML SOLUTION 1000 MG GT (08:02)
[2024-09-12] MEDS: ENOXAPARIN SODIUM 40 MG/0.4 ML SYRINGE SC (09:00)
--- NOTE | 2024-09-12 11:26 | PC.NURSE ---
Nurse [employer] reporting change in condition for this resident. During hand off report this AM nurse RN Micki reported resident had increased temp of 102 rectally, eventually went down to 99.9. at 1107 nurse Марина reported fever of 105.1 rectally, increased RR of 43/44 BPM B/p 148/73cooling measures were continued. Notified MD. order to send her out to ED for further evaluation.
[2024-09-12 12:00] VITALS: BP 148/73; PULSE 123; RESP 40; TEMP 40.3
--- NOTE | 2024-09-12 12:25 | PC.NURSE ---
Resident transported via gurney to ED accompanied by Марина Paul and Marycarmen at 1155. Full report given to Angelita MEJIA at ER.
--- NOTE | 2024-09-12 13:17 | PC.NURSE ---
09/12/24 Pt had a temperature on material handler 1st shift. Which was reported to day shift charge nurse. Followed up with another temperature rectally, during nurses rounds. During nursing rounds patients temperature read 104.5 R. Nurse and charge nurse were notified and aware. Temp was taken 11:30am 09/12/24.
--- NOTE | 2024-09-12 15:43 | PC.NURSE ---
As per report from NOC shift-pt. had temps via rectally. Followed up with another temperature via rectally, during nurses rounds. Temperature read at 104.5 F. Charge nurse was notified and made aware. Vitals were taken with increased RR of 43-45, BP of 148/73 and TEMP >104F. Cooling measures were done and PRN Tylenol given via GT at 1115. Charge nurse notified MD. Order to send pt. out to ED for further evaluation. Pt. transported via gurney to ED accompanied by RT, MULTIPLE PRESSURE RIVETER OPERATOR and MANAGER BUILDING at 1155. Full report given to Angelita MEJIA at ER.
== END 2024-09-12 16:26 | disposition skilled nursing facility (03) | DRG 207 ==
PROVIDERS: Admitting Provider Specialist; Visit Provider Specialist
DX: J96.10 Chronic respiratory failure, unspecified whether with hypoxia or hypercapnia (principal); E87.1 Hypo-osmolality and hyponatremia; G93.1 Anoxic brain damage, not elsewhere classified; G40.909 Epilepsy, unspecified, not intractable, without status epilepticus; I10 Essential (primary) hypertension; E78.5 Hyperlipidemia, unspecified; E11.9 Type 2 diabetes mellitus without complications; Z66 Do not resuscitate; E87.5 Hyperkalemia; Z93.1 Gastrostomy status; Z93.0 Tracheostomy status
CPT/HCPCS: 36415; 80053; 80069; 80177; 80185; 81001; 82306; 82947; 83036; 84145; 85025; 87040; 87070; 87075; 87077; 87086; 87186; 87205; 87502; 87811; 92610; 94002; 94004; 94640

== ENCOUNTER 2024-07-07 12:47 | Emergency (ER) | payer MEDICARE, MEDICAID, SELFPAY ==
[2024-07-07] VITALS (8 sets, daily range): BP systolic 109–130; BP diastolic 42–75; PULSE 78–97; RESP 19–40; TEMP 36.6–36.9; O2SAT 96–100; BMI 31.9
--- NOTE | 2024-07-07 12:56 | EKG_ITS ---
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: : 1955 Requested By: Preeti Rodriguez Order Number: [id number] Reading MD: Preeti Rodriguez Measurements Intervals Blair Rate: 78 P: -1 CA: 129 QRS: -40 QRSD: 78 T: 18 QT: 344 QTc: 393 Interpretive Statements SINUS RHYTHM LEFT AXIS DEVIATION [QRS AXIS < -30] LOW QRS VOLTAGE IN PRECORDIAL LEADS [QRS DEFLECTION < 1.0 mV IN CHEST LEADS] POSSIBLE ANTERIOR MYOCARDIAL INFARCTION , PROBABLY OLD [30 ms Q WAVE IN V3/V4, OR R < 0.2 mV IN V4] Compared to ECG 06/25/2024 17:32:10 Left-axis deviation now present Sinus tachycardia no longer present Myocardial infarct finding still present /store/S0/[id number].pdf
[2024-07-07] MEDS: SODIUM CHLORIDE RT SOL 0.9% 3 ML NEBU INH (13:08)
[2024-07-07] MEDS: ALBUTEROL RT 2.5 MG/0.5 ML NEBU INH (13:08)
[2024-07-07] MEDS: CALCIUM GLUCONATE 10% INJ 1 GM/10 ML VIAL IV (13:31)
[2024-07-07 13:54] LABS: Potassium 4.8 mMol/L (3.4-5.1)
[2024-07-07] MEDS: SODIUM CHLORIDE 0.9% 500 ML 500 ML 999 ML IV ×2 (15:15→17:20)
[2024-07-07 16:54] LABS: Sodium 129 mMol/L (136-145)
[2024-07-07 19:07] LABS: Sodium 131 mMol/L (136-145)
--- NOTE | 2024-07-07 19:15 | PD.EDADULT ---
ED General RME/HPI General Chief complaint: Recheck/Abnormal Lab/Rx Stated complaint: ABNORMAL LABS Time Seen by Provider: 07/07/24 12:57 Arrival date/time: 07/07/24 12:47 CC: High potassium low sodium HPI patient [facility] the ER [facility] vented trached in her own bed and awake. Patient is nonverbal vital signs are stable. Related Data Previous Rx's ?Medication ?Instructions ?Recorded acetaminophen 325 mg/10.15 mL oral 650 mg (20.3 mL) G-tube Q6H PRN 07/02/24 solution pain 1-3 and fever >100.3 14 days #406 mL aspirin 81 mg chewable tablet 81 mg G-tube QDAY 14 days #14 tabs 07/02/24 (Children's Aspirin) atorvastatin 20 mg tablet 40 mg (2 x 20 mg) G-tube HS 14 07/02/24 days #28 tabs buspirone 5 mg tablet 10 mg (2 x 5 mg) G-tube Q8HR PRN 07/02/24 Agitation 14 days #28 tabs docusate sodium 50 mg/5 mL oral 100 mg (10 mL) G-tube QDAY PRN 07/02/24 liquid Constipation 14 days #1,000 mL ergocalciferol (vitamin D2) 1,250 1,250 mcg PO QWEEK #14 caps 07/02/24 mcg (50,000 unit) capsule levetiracetam 500 mg/5 mL (5 mL) 1,000 mg (10 mL) G-tube BID 14 07/02/24 oral solution days #280 mL valproic acid (as sodium salt) 250 500 mg (10 mL) G-tube TID 14 days 07/02/24 mg/5 mL (5 mL) oral solution #420 mL vancomycin 25 mg/mL oral solution 125 mg (5 mL) G-tube Q6HR 5 days 07/02/24 #300 mL Allergies Allergy/AdvReac Type Severity Reaction Status Date / Time codeine Allergy Verified 06/24/24 19:33 Review of Systems Review of Systems ROS Unobtainable: unobtainable due to mental status Past Medical History Past Medical History NEUROLOGIC: Positive Seizures CARDIAC: Positive Cardiac Disorders (CHF); Negative Congestive Heart Failure RESPIRATORY: Positive Asthma; Negative Chronic Obstructive Pulmonary Disease (COPD) GENITOURINARY: Negative Renal Disease ENDOCRINE: Negative Diabetes Mellitus Type 1 or Diabetes Mellitus Type 2 HEMATOLOGIC: Negative Sickle Cell Disease Social History SMOKING STATUS: Unknown if ever smoked SECOND HAND EXPOSURE: No ED Exam Narrative Physical exam: [General: Obese appears not in any acute distress Head normocephalic HEENT: Within acceptable limits Neck is supple nontender Chest equal chest rise nontender to palpation Respiratory: Trach, clean dry and intact. Clear to auscultation no wheezes crackles or rubs CV: Rate rhythm is regular no murmurs rubs or clicks Abdomen is distended secondary to body habitus soft nontender no masses positive bowel sounds all 4 quadrants Back: No CVA tenderness no spinous process tenderness from cervical spine thoracic and lumbar spine Skin: Intact no petechiae rash induration ulceration or crepitus Extremities: Moving all extremity against resistance cap refill less than 2 seconds neurosensory intact Neuro: Awake alert Course Quality Measures none Orders Category Date Time Status EKG (ED ONLY) *Do not use* NOW Care 07/07/24 12:56 Completed Insert IV NOW Care 07/07/24 13:15 Active EKG (ED Only) Stat Exams 07/07/24 12:56 Draft Potassium Stat Lab 07/07/24 13:30 Completed Sodium Stat Lab 07/07/24 16:29 Completed Sodium Stat Lab 07/07/24 18:49 Completed ALBUTEROL RT 0.5ml [Proventil Rt 0.5ml] Med 07/07/24 13:00 Discontinued 2.5 mg INH X1 ONE Calcium Gluconate 10% Inj Med 07/07/24 13:00 Discontinued 1 gm IV X1 ONE Sodium Chloride 0.9% 500 ml [Ns] 500 ml Med 07/07/24 15:09 Discontinued IV 999 mls/hr Sodium Chloride 0.9% 500 ml [Ns] 500 ml Med 07/07/24 16:57 Discontinued IV 999 mls/hr Sodium Chloride Rt Ericka 0.9% [NS Rt Ericka 0.9%] Med 07/07/24 13:00 Active 3 ml INH PRN PRN Vital Signs Vital signs: Vital Signs Temperature 97.9 F 07/07/24 12:58 Pulse Rate 78 07/07/24 12:58 Respiratory Rate 20 07/07/24 12:58 Blood Pressure 128/75 07/07/24 12:58 Pulse Oximetry (%) 98 07/07/24 12:58 Oxygen Delivery Method Mechanical Ventilation 07/07/24 12:58 Fraction of Inspired Oxygen 30 07/07/24 12:58 [facility] Patient data External records reviewed:: [facility] previous records Clinical information provided by:: patient Social determinants that could affect healthcare access:: none Patient has the following chronic illnesses:: Tracheostomy dependent. How is presenting disease/condition affected by chronic disease/condition?: uneffected by Evaluation data The following diagnostics were reviewed and interpreted by me:: lab results and radiology exam(s) Lab and/or radiology exams considered but not ordered:: CMP shows a sodium of 131 potassium of 4.8 after correction initially the patient had a sodium of 126 and a potassium of 5.5. Interpretation Summary: Patient's case discussed with Dr. Reyes who agrees to accept the patient back into her care facility. Medications Medications considered but not ordered:: None Medication administrations:: Medication Administration History Sodium Chloride (Sodium Chloride Rt Ericka 0.9% 3 Ml Nebu) 3 ml INH PRN PRN PRN Reason: SOLN Stop: 08/06/24 12:59 Last Admin: 07/07/24 13:08 Dose: 3 ml Documented By: BROOKS Discontinued Medications Albuterol (Albuterol Rt 2.5 Mg/0.5 Ml Nebu) 2.5 mg INH X1 ONE Stop: 07/07/24 13:01 Last Admin: 07/07/24 13:08 Dose: 2.5 mg Documented By: BROOKS Calcium Gluconate (Calcium Gluconate 10% Inj 1 Gm/10 Ml Vial) 1 gm IV X1 ONE Stop: 07/07/24 13:01 Last Admin: 07/07/24 13:31 Dose: 1 gm Documented By: RONNI Sodium Chloride (Ns) 500 mls @ 999 mls/hr IV .Q31M ONE Stop: 07/07/24 15:39 Last Infusion: 07/07/24 16:38 Dose: Infused Documented By: Admin: 07/07/24 15:15 Dose: 999 mls/hr Documented By: DEEPIKA Sodium Chloride (Ns) 500 mls @ 999 mls/hr IV .Q31M ONE Stop: 07/07/24 17:27 Last Infusion: 07/07/24 18:00 Dose: Infused Documented By: Admin: 07/07/24 17:20 Dose: 999 mls/hr Documented By: RONNI None Consultations Consultation(s) initiated? (list below): No Diagnosis Differential Diagnosis ED Complaint MDM: Hyperkalemia hyponatremia renal impairment Most likely diagnosis given after review of the tests above:: Hyperkalemia, hyponatremia Admission Indicated Admission indicated?: not indicated Explain why admission is indicated or not indicated:: Stable for subacute Admission Request Was there a request for admission?: No Disposition Plan Disposition Plan: Discharge Discharge Attestation Discharge Attestation: The patient and all family members were given an opportunity to ask questions and understood the discharge instructions. Discharge instructions specifically effects, indications for sooner follow up or return to the emergency department, and the expected course of current diagnosis. Patient condition: Stable Medical Decision Making Differential Diagnosis Differential Diagnosis: Hyperkalemia hyponatremia renal impairment Lab Data 07/07/24 18:49 Labs: Lab Results 07/07/24 07/07/24 07/07/24 Range/Units 13:30 16:29 18:49 Sodium 129 L 131 L (136-145) mMol/L Potassium 4.8 D (3.4-5.1) mMol/L Discharge Plan Plan Patient Disposition: Xfer Disulfurizer Tender Acute w/in Hosp Patient condition on transfer: Stable Prescriptions/Referrals Prescriptions/Med Rec: No Action docusate sodium 50 mg/5 mL Liquid 100 mg G-tube QDAY PRN (Reason: Constipation) 14 Days Qty: 1000 0RF buspirone 5 mg Tablet 10 mg G-tube Q8HR PRN (Reason: Agitation) 14 Days Qty: 28 0RF atorvastatin 20 mg Tablet 40 mg G-tube HS 14 Days Qty: 28 0RF aspirin [Children's Aspirin] 81 mg Tablet,Chewable 81 mg G-tube QDAY 14 Days Qty: 14 0RF levetiracetam 500 mg/5 mL (5 mL) Solution 1,000 mg G-tube BID 14 Days Qty: 280 0RF acetaminophen 325 mg/10.15 mL Solution 650 mg G-tube Q6H PRN (Reason: pain 1-3 and fever >100.3) 14 Days Qty: 406 0RF valproic acid (as sodium salt) 250 mg/5 mL (5 mL) Solution 500 mg G-tube TID 14 Days Qty: 420 0RF vancomycin 25 mg/mL Recon Soln 125 mg G-tube Q6HR 5 Days Qty: 300 0RF ergocalciferol (vitamin D2) 1,250 mcg (50,000 unit) capsule 1,250 mcg PO QWEEK Qty: 14 0RF Referrals: Lalo Silverio MD [Primary Care Provider] - In 1 week Problem List Clinical Impression: Hyperkalemia, Hyponatremia Patient/Caregiver Discharge Instructions Education Materials: ED Hyperkalemia, ED Hyponatremia Print Language: Korean PA/BLOOD BANK COORDINATOR Supervising Physician PA/BLOOD BANK COORDINATOR Supervising Physician: Dav Grove ENP
--- NOTE | 2024-07-07 19:50 | PC.NURSE ---
Report given to JACKIE Sweet Sub-Acute
--- NOTE | 2024-07-08 10:02 | CHAP ---
Patient was visited by the Spiritual Care Volunteer who prayed for them. (Volunteer was in the hospital from 11:00-12:35.)
== END 2024-07-07 20:30 | disposition skilled nursing facility (03) ==
PROVIDERS: Registered Nurse General Practice; Emergency Provider Emergency Medicine; PCP Specialist
DX: E87.5 Hyperkalemia (principal); E87.1 Hypo-osmolality and hyponatremia; I50.9 Heart failure, unspecified; Z93.0 Tracheostomy status; Z99.11 Dependence on respirator [ventilator] status
CPT/HCPCS: 36415; 84132; 84295; 94002; 94640; 96360; 96361; 99284; J0612; J7040

== ENCOUNTER 2024-07-26 09:37 | Inpatient (IN) | payer MEDICARE, MEDICAID, SELFPAY ==
[2024-07-26] VITALS (22 sets, daily range): BP systolic 88–156; BP diastolic 42–90; PULSE 70–114; RESP 19–39; TEMP 36.1–38; O2SAT 88–100; BMI 30.7; BMI 32.1
--- NOTE | 2024-07-26 09:59 | XR_ITS ---
Examination: CT chest with intravenous contrast CT abdomen with intravenous contrast CT pelvis with intravenous contrast 2-D coronal and sagittal reconstructions Time of exam: Jul 26 2024 1224 hours INDICATIONS: Sepsis alert today CTDI: vol (mGy) : 21.5 DLP: (mGycm): 1531 Technique: Multiple axial images of the chest, abdomen and pelvis with intravenous contrast, 3.0 mm slice thickness. Images obtained post intravenous injection Isovue 370 60 cc. 2-D sagittal and coronal reconstructions. Low dose protocols were performed. One or more of the following dose reduction techniques were used; automated exposure control, adjustment of the mA and/or KV according to patient size, use of iterative reconstruction technique. Findings: Tracheostomy tube tip 18 mm above michael No thoracic aortic aneurysmal dilatation No pulmonary artery filling defects Mild vascular congestion Significant bibasilar pneumonia, aspiration pneumonia included in the differential No focal liver or splenic lesions Gallstones Gallbladder wall does not appear thickened No pancreatic or adrenal mass No renal or ureteral calculi, no hydronephrosis Abdominal aortic calcification no aneurysmal dilatation Normal appendix No abdominal or pelvic abscess Atrophic anteverted uterus Colonic diverticulosis, no diverticulitis Urinary bladder is contracted around a Hobson catheter, urinary bladder wall thickening measures up to 17 mm Severe osteopenia with moderate to advanced diffuse narrowing thoracic lumbar disc spaces IMPRESSION: Significant bibasilar pneumonia, consider aspiration pneumonia Cholelithiasis No abdominal or pelvic abscess Marked thickening of urinary bladder wall, differential would include cystitis
--- NOTE | 2024-07-26 09:59 | EKG_ITS ---
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
--- NOTE | 2024-07-26 10:01 | XR_ITS ---
Examination: AP chest single view Technique one AP portable semiupright chest single view Exam date and time: July 26, 2024 10:50 AM COMPARISON: June 25, 2024 INDICATIONS: Sepsis protocol today. FINDINGS: Suspicious for early pneumonia left base retrocardiac Mild prominence of ventricle Mild elevation right hemidiaphragm. Tracheostomy tube tip 4 cm above michael IMPRESSION: Suspicious for early left base pneumonia
[2024-07-26 10:14] LABS: Lactate (Lactic Acid) 2.5 mMol/L (0.4-2.0)
[2024-07-26 10:16] LABS: Basophils # (Auto) 0.1 Thou/mm3 (0.0-0.2); Basophils % (Auto) 0 % (0-2.5); Eosinophils # (Auto) 0.1 Thou/mm3 (0.0-0.5); Eosinophils % (Auto) 0 % (0-10); Hematocrit 23.2 % (36.0-46.0); Immature Granulocytes % (Auto) 1 % (0-0); Immature Granulocytes Auto 0.41 Thou/mm3 (0.00-0.00); Lymphocytes # (Auto) 2.4 Thou/mm3 (1.0-4.8); Lymphocytes % (Auto) 8 % (10-50); Mean Corpuscular HGB Conc 33.2 g/dl (31.0-37.0); Mean Corpuscular Hemoglobin 31.4 pg (25.0-35.0); Mean Corpuscular Volume 95 fL (80-100); Monocytes # (Auto) 4.4 Thou/mm3 (0.0-0.8); Monocytes % (Auto) 15 % (0-12); Neutrophils # (Auto) 21.4 Thou/mm3 (1.8-7.7); Neutrophils % (Auto) 75 % (37-80); Nucleated Red Blood Cell # 0.03 Thou/mm3 (0.00-0.00); Nucleated Red Blood Cell % 0 /100 WBC (0); Platelet Count 222 Thou/mm3 (140-440); Red Blood Count 2.45 Miln/mm3 (4.00-5.20); White Blood Count 28.7 Thou/mm3 (3.6-11.0)
[2024-07-26 10:23] LABS: Hemoglobin 7.7 g/dL (12.0-16.0)
--- NOTE | 2024-07-26 10:24 | EDNOTE_ITS ---
ED Fever RME/HPI General Chief Complaint: Fever Stated Complaint: FEVER, ELEVATED WBC, LOW BP Time Seen by Provider: 07/26/24 09:58 Arrival date/time: 07/26/24 09:37 Limitations: no limitations RME / HPI RME / HPI Narrative: 69 year old female with history of epilepsy, hypertension, diabetes, hyperlipidemia, chronic encephalopathy, chronic respiratory failure, s/p tracheostomy with ventilator dependance, s/p PEG tube presents to the ED brought from the subacute unit within this facility for evaluation of fever. Per RN, patient this morning had a fever of 102.8F [place] and given Tylenol. Additionally reported labs this morning showed an elevated white count. Was swabbed for covid/flu today and were negative. Patient is unable to provide any additional history. Related Data Previous Rx's ?Medication ?Instructions ?Recorded acetaminophen 325 mg/10.15 mL oral 650 mg (20.3 mL) G- tube Q6H PRN 07/02/24 solution pain 1-3 and fever >100.3 14 days #406 mL aspirin 81 mg chewable tablet 81 mg G-tube QDAY 14 day s #14 tabs 07/02/24 (Children's Aspirin) atorvastatin 20 mg tablet 40 mg (2 x 20 mg) G-tube HS 14 07/02/24 days #28 tabs buspirone 5 mg tablet 10 mg (2 x 5 mg) G-tube Q8HR PRN 07/02/24 Agitation 14 days #28 tabs docusate sodium 50 mg/5 mL oral 100 mg (10 mL) G-tube QDAY PRN 07/02/24 liquid Constipation 14 days #1,000 mL ergocalciferol (vitamin D2) 1,250 1,250 mcg PO QWEEK # 14 caps 07/02/24 mcg (50,000 unit) capsule levetiracetam 500 mg/5 mL (5 mL) 1,000 mg (10 mL) G-tu be BID 14 07/02/24 oral solution days #280 mL valproic acid (as sodium salt) 250 500 mg (10 mL) G-tu be TID 14 days 07/02/24 mg/5 mL (5 mL) oral solution #420 mL vancomycin 25 mg/mL oral solution 125 mg (5 mL) G-tube Q6HR 5 days 07/02/24 #300 mL Allergies Allergy/AdvReac Type Severity Reaction Status Date / Time codeine Allergy Verified 06/24/24 19:33 Review of Systems Review of Systems ROS Unobtainable: unobtainable due to medical condition Past Medical History Past Medical History NEUROLOGIC: Positive Seizures CARDIAC: Positive Cardiac Disorders; Negative Congestive Heart Failure RESPIRATORY: Positive Asthma; Negative Chronic Obstructive Pulmonary Disease (COPD) GENITOURINARY: Negative Renal Disease ENDOCRINE: Negative Diabetes Mellitus Type 1 or Diabetes Mellitus Type 2 HEMATOLOGIC: Negative Sickle Cell Disease Social History SMOKING STATUS: Unknown if ever smoked SECOND HAND EXPOSURE: No Physical Exam General Limitations: no limitations General appearance: other (Obtunded, could not communicate, no fecal or urinary incontinence) Head Head exam: atraumatic and normocephalic Eye Eye exam: Present PERRL ENT ENT exam: Present normal oropharynx Neck Neck exam: Present full ROM and other (tracheostomy tube with purulent discharge present in the tube ) Chest Chest inspection: Present normal inspection and symmetric chest wall rise Respiratory Respiratory exam: Present normal lung sounds bilaterally Cardiovascular Cardiovascular exam: Present regular rate, normal rhythm and normal heart sounds Abdominal Exam Abdominal exam: Present soft and normal bowel sounds Extremities Exam Extremities exam: Present other (spontaneously moves bilateral upper and lower extremities with painful or verbal stimuli) Back Exam Back exam: Present other (Sacral bed sore that is well covered and does not appear infected) Neurological Exam Neurological exam: Present other (Obtunded, could not communicate) Skin Skin exam: Present warm, dry, intact and normal color ED Exam General Limitations: Present no limitations General appearance: Present other (Obtunded, could not communicate, no fecal or urinary incontinence) Head Head exam: Present atraumatic and normocephalic Eye Eye exam: Present PERRL ENT ENT exam: Present normal oropharynx Neck Neck exam: Present full ROM and other (tracheostomy tube with purulent discharge present in the tube ) Chest Chest inspection: Present normal inspection and symmetric chest wall rise Respiratory Respiratory exam: Present normal lung sounds bilaterally Cardiovascular Cardiovascular exam: Present regular rate, normal rhythm and normal heart sounds Abdominal Exam Abdominal exam: Present soft and normal bowel sounds Extremities Exam Extremities exam: Present other (spontaneously moves bilateral upper and lower extremities with painful or verbal stimuli) Back Exam Back exam: Present other (Sacral bed sore that is well covered and does not appear infected) Neurological Exam Neurological exam: Present other (Obtunded, could not communicate) Skin Skin exam: Present warm, dry, intact and normal color Course Course Course Narrative: 1152: I spoke with patients daughter Suzie. We reviewed all the results and advised she come in to the ED. 1605: I spoke with patients daughter Suzie. Patient at this time is maintaining blood pressure. Now more responsive and says she remembers me from this morning. Quality Measures Current suspected stage: sepsis Possible source: pulmonary Blood cultures ordered: completed in ED Antibiotic ordered: Yes Pertinent labs: 07/26/24 07/26/24 10:07 13:34 Lactic Acid 2.5 H mMol/L 1.8 mMol/L (0.4-2.0) (0.4-2.0) Procalcitonin 0.17 ng/ml (0.0-0.49) sepsis Orders Category Date Time Status Bedside COVID-19 Antigen Test NOW Care 07/26/24 16:44 Active COVID-19 Screening Questionnaire NOW Care 07/26/24 15:51 Active Testing And Regulating Chief STAT Care 07/26/24 09:59 Active Catheter [Urinary Catheter] X1 Care 07/26/24 10:38 Active Continuous Pulse Oximetry STAT Care 07/26/24 09:59 Completed Decision to Admit X1 Care 07/26/24 15:51 Completed EKG (ED ONLY) *Do not use* NOW Care 07/26/24 09:59 Completed In and Out Catheter X1PRN Care 07/26/24 09:59 Completed Insert IV NOW Care 07/26/24 09:59 Active NPO STAT Care 07/26/24 09:59 Active Strict Intake and Output Routine Care 07/26/24 09:[address] chest abdomen pelvis w con SEPSIS PROTOCOL Stat Exams 07/26/24 09:59 Completed EKG (ED Only) Stat Exams 07/26/24 09:59 Draft XR chest 1V SEPSIS PROTOCOL Stat Exams 07/26/24 10:01 Completed B-Type Natriuretic Peptide Stat Lab 07/26/24 10:07 Completed Blood Culture (Lab) Stat Lab 07/26/24 10:07 Received CBC Stat Lab 07/26/24 10:07 Completed Comprehensive Metabolic Panel Stat Lab 07/26/24 10:07 Completed LDH (Lactate Dehydrogenase) Stat Lab 07/26/24 10:07 Completed Lactate (Lactic Acid) Stat Lab 07/26/24 10:07 Completed Lactic Acid, 3 HR Stat Lab 07/26/24 13:34 Completed Lipase Stat Lab 07/26/24 10:07 Completed Magnesium Stat Lab 07/26/24 10:07 Completed Partial Thromboplastin Time Stat Lab 07/26/24 10:07 Completed Phosphorous Stat Lab 07/26/24 10:07 Completed Procalcitonin Stat Lab 07/26/24 10:07 Completed Prothrombin Time with INR Stat Lab 07/26/24 10:07 Completed Troponin I Stat Lab 07/26/24 10:07 Completed Urinalysis Stat Lab 07/26/24 11:43 Completed Urine Culture Stat Lab 07/26/24 11:43 Received Norepinephrine/D5W 8mg/250ml [Levophed in D5W 8mg/250ml Med 07/26/24 09:59 Discontinued ] 8 mg in 250 ml IV 0.05 mcg/kg/min Piper/Tazo 3.375 gm Premix [Zosyn] Med 07/26/24 09:59 Discontinued 3.375 gm in 50 ml IV X1 Sodium Chloride 0.9% 1000 ml [Ns] 1,710 ml Med 07/26/24 09:59 Discontinued IV 1,710 mls/hr Vancomycin Inj 1,500 mg Med 07/26/24 10:15 Discontinued Sodium Chloride 0.9% 500 ml [Ns] 500 ml IV X1 Vancomycin Pharmacy to Dose Med 07/26/24 10:15 Active 1 each IV QDAY PRN Vancomycin/Ns 1 gm Ivpb 200 ml Med 07/26/24 22:00 Active IV X1 Mechanical [Volume Ventilator] Stat RT 07/26/24 Active Oxygen Delivery NOW RT 07/26/24 09:59 Active Tracheostomy Tube Management NEEDED RT 07/26/24 10:17 Active Vital Signs Vital signs: Vital Signs Temperature 99.5 F 07/26/24 09:51 Pulse Rate 90 07/26/24 09:51 Respiratory Rate 24 H 07/26/24 09:51 Blood Pressure 96/43 L 07/26/24 09:51 Pulse Oximetry (%) 97 07/26/24 09:51 Oxygen Delivery Method Mechanical Ventilation 07/26/24 09:51 Fraction of Inspired Oxygen 30 07/26/24 09:51 Fever MDM Narrative MDM Narrative:: Idania Paz am scribing for and in the presence of Dr. Gan. Patient data External records reviewed:: [facility] previous records (I reviewed ED visit on 07/07/2024 ) Clinical information provided by:: other (specify) (RN ) Social determinants that could affect healthcare access:: housing (Subacute resident ) Patient has the following chronic illnesses:: epilepsy, hypertension, diabetes, hyperlipidemia, chronic encephalopathy, nonverbal, chronic respiratory failure, s/p tracheostomy with ventilator dependance, s/p PEG tube How is presenting disease/condition affected by chronic disease/condition?: exacerbated by Evaluation data The following diagnostics were reviewed and interpreted by me:: lab results (Patients white count in 28.7, HGB @ 10:07 is 7.7 and HGB @ 08:00 was 8.5 ), radiology exam(s) and EKG tracing(s) (EKG at 10:41 am. Sinus rhythm, rate 85, nonspecific ST T-wave changes. ) Lab and/or radiology exams considered but not ordered:: None Interpretation Summary: Ordering Physician: Kenton Gan MD Date of Service: 07/26/24 Procedure(s): XR chest 1V SEPSIS PROTOCOL Accession Number(s): [id number] cc: Kenton Gan MD; Joon Pennington MD; NO PRIMARY/FAMILY,PHYSICIAN~ Examination: AP chest single view Technique one AP portable semiupright chest single view Exam date and time: July 26, 2024 10:50 AM COMPARISON: June 25, 2024 INDICATIONS: Sepsis protocol today. FINDINGS: Suspicious for early pneumonia left base retrocardiac Mild prominence of ventricle Mild elevation right hemidiaphragm. Tracheostomy tube tip 4 cm above michael IMPRESSION: Suspicious for early left base pneumonia Dictated By: Joon Pennington MD Signed By: <Electronically signed by Joon Pennington MD in OV> 07/26/24 1100 = Ordering Physician: Kenton Gan MD Date of Service: 07/26/24 Procedure(s): CT chest abd pel w SEPSIS PRO Accession Number(s): [id number] cc: Kenton Gan MD; Joon Pennington MD; NO PRIMARY/FAMILY,PHYSICIAN~ Examination: CT chest with intravenous contrast CT abdomen with intravenous contrast CT pelvis with intravenous contrast 2-D coronal and sagittal reconstructions Time of exam: Jul 26 2024 1224 hours INDICATIONS: Sepsis alert today CTDI: vol (mGy) : 21.5 DLP: (mGycm): 1531 Technique: Multiple axial images of the chest, abdomen and pelvis with intravenous contrast, 3.0 mm slice thickness. Images obtained post intravenous injection Isovue 370 60 cc. 2-D sagittal and coronal reconstructions. Low dose protocols were performed. One or more of the following dose reduction techniques were used; automated exposure control, adjustment of the mA and/or KV according to patient size, use of iterative reconstruction technique. Findings: Tracheostomy tube tip 18 mm above michael No thoracic aortic aneurysmal dilatation No pulmonary artery filling defects Mild vascular congestion Significant bibasilar pneumonia, aspiration pneumonia included in the differential No focal liver or splenic lesions Gallstones Gallbladder wall does not appear thickened No pancreatic or adrenal mass No renal or ureteral calculi, no hydronephrosis Abdominal aortic calcification no aneurysmal dilatation Normal appendix No abdominal or pelvic abscess Atrophic anteverted uterus Colonic diverticulosis, no diverticulitis Urinary bladder is contracted around a Hobson catheter, urinary bladder wall thickening measures up to 17 mm Severe osteopenia with moderate to advanced diffuse narrowing thoracic lumbar disc spaces IMPRESSION: Significant bibasilar pneumonia, consider aspiration pneumonia Cholelithiasis No abdominal or pelvic abscess Marked thickening of urinary bladder wall, differential would include cystitis Dictated By: Joon Pennington MD Signed By: <Electronically signed by Joon Pennington MD in OV> 07/26/24 1309 Medications / Prescriptions Medications or Prescriptions considered but not ordered:: None Medication administrations:: Medication Administration History Vancomycin/Sodium Chloride (Vancomycin/Ns 1 Gm Ivpb) 200 mls @ 120 mls/hr IV X1 ONE Stop: 07/26/24 23:39 Pharmacy Consult (Vancomycin Pharmacy To Dose 1 Each Each) 1 each IV QDAY PRN PRN Reason: CONSULT Stop: 08/25/24 10:14 Discontinued Medications Sodium Chloride (Ns) 1,710 mls @ 1,710 mls/hr 30 ml/kg infuse over 60 min (1710 ml) IV .Q1H ONE Stop: 07/26/24 10:58 Last Infusion: 07/26/24 11:44 Dose: Infused Documented By: Admin: 07/26/24 10:35 Dose: 1,710 mls/hr Documented By: RONNI Norepinephrine/Dextrose (Levophed In D5w 8mg/250ml) 8 mg in 250 mls @ 7.867 mls/hr IV .Q24H PRN; Protocol PRN Reason: PER PROTOCOL Stop: 08/25/24 09:58 Piperacillin/Tazobactam/Dextrose (Zosyn) 3.375 gm in 50 mls @ 100 mls/hr IV X1 ONE Stop: 07/26/24 10:28 Last Infusion: 07/26/24 11:30 Dose: Infused Documented By: Admin: 07/26/24 10:35 Dose: 100 mls/hr Documented By: RONNI Vancomycin HCl 1,500 mg/ (Sodium Chloride) 500 mls @ 200 mls/hr IV X1 ONE Stop: 07/26/24 12:44 Last Infusion: 07/26/24 15:14 Dose: Infused Documented By: Admin: 07/26/24 11:33 Dose: 200 mls/hr Documented By: RONNI See above Consultations Consultation(s) initiated? (list below): Yes Consultation #1 (Physician, Specialty, Details): I spoke with patients PCP Dr. Silverio. Discussed patients ED course, exam findings, labs, and radiology results. Recommended admission for IV antibiotics. Time: 16:15 Consultation #2 (Physician, Specialty, Details): I spoke with hospitalist Dr. Barlow. Discussed patients PMHx, HPI, ED course, exam findings, labs, and radiology results. The hospitalist agree to accept the patient for admission. Time: 17:20 Diagnosis Fever Differential Diagnosis: cellulitis, fever of unknown origin, viral infection, sepsis, influenza and other (vent associated pneumonia ) Most likely diagnosis given after review of the tests above:: Sepsis Ventilator associated pneumonia Admission Indicated Admission indicated?: indicated Admission Request Was there a request for admission?: Yes Admission Attestation Admission request attestation: Discussed case with [] from Hospitalist service regarding admission. Discussed patients ED course, exam findings, labs, and radiology results. The Hospitalist [agrees,declines] to accept the patient for admission. Disposition Plan Disposition Plan: Admit Critical Care Time Critical Care Time Critical Care Time: Yes Total Critical Care Time (min.): 35 Attestation: The high probability of sudden, clinically significant deterioration in the patient's condition required the highest level of my preparedness to intervene urgently. The services I provided to this patient were to treat and/or prevent clinically significant deterioration. Services included the following: chart data review, reviewing nursing notes and/or old charts, documentation time, citrix consultant collaboration regarding findings and treatment options, medication orders and management, direct patient care, vital sign assessments and ordering, interpreting and reviewing diagnostic studies and lab tests. Aggregate critical care time includes only time during which I was engaged in work directly related to the patient's care, as described above, whether at bedside or elsewhere in the Emergency Department. It did not include time spent performing other reported procedures or the services of residents, students, nurses or physician assistants. Discharge Plan Plan Patient Disposition: Admit Acute Care w/in Hospital Prescriptions/Referrals Prescriptions/Med Rec: No Action docusate sodium 50 mg/5 mL Liquid 100 mg G-tube QDAY PRN (Reason: Constipation) 14 Days Qty: 1000 0RF buspirone 5 mg Tablet 10 mg G-tube Q8HR PRN (Reason: Agitation) 14 Days Qty: 28 0RF atorvastatin 20 mg Tablet 40 mg G-tube HS 14 Days Qty: 28 0RF aspirin [Children's Aspirin] 81 mg Tablet,Chewable 81 mg G-tube QDAY 14 Days Qty: 14 0RF levetiracetam 500 mg/5 mL (5 mL) Solution 1,000 mg G-tube BID 14 Days Qty: 280 0RF acetaminophen 325 mg/10.15 mL Solution 650 mg G-tube Q6H PRN (Reason: pain 1-3 and fever >100.3) 14 Days Qty: 406 0RF valproic acid (as sodium salt) 250 mg/5 mL (5 mL) Solution 500 mg G-tube TID 14 Days Qty: 420 0RF vancomycin 25 mg/mL Recon Soln 125 mg G-tube Q6HR 5 Days Qty: 300 0RF ergocalciferol (vitamin D2) 1,250 mcg (50,000 unit) capsule 1,250 mcg PO QWEEK Qty: 14 0RF Referrals: No Primary/Family,Physician [Primary Care Provider] - In 1 week Problem List Clinical Impression: Sepsis, Ventilator associated pneumonia Patient/Caregiver Discharge Instructions Print Language: Setswana Stand Alone Forms: Johana Award Info., Patient Portal Info Letter
[2024-07-26 10:30] LABS: INR 1.1 (0.9-1.3); Partial Thromboplastin Time 25.6 Seconds (22.0-36.0); Prothrombin Time 11.9 Seconds (9.0-12.2)
[2024-07-26] MEDS: SODIUM CHLORIDE 0.9% 1000 ML 1,710 ML 1710 ML IV (10:35)
[2024-07-26] MEDS: PIPER/TAZO 3.375 GM PREMIX 3.375 GM/50 ML BAG IV ×2 (10:35→18:53)
[2024-07-26 10:41] LABS: B-Type Natriuretic Peptide 106 pg/mL (0-100)
[2024-07-26 10:44] LABS: Alanine Aminotransferase < 7 U/L (10-49); Albumin, Serum 3.5 gm/dL (3.4-4.8); Albumin/Globulin Ratio 1.3 (1.2-2.2); Alkaline Phosphatase 61 U/L (46-116); Anion Gap 7 (7-16); Aspartate Amino Transferase 13 U/L (0-34); BUN/Creatinine Ratio 40 Ratio (12-20); Bilirubin,Total 0.3 mg/dL (0.3-1.2); Blood Urea Nitrogen 24 mg/dL (9-23); Calcium 8.8 mg/dL (8.3-10.6); Calcium (Corrected) 9.2 mg/dL (8.5-10.1); Carbon Dioxide 33.2 mMol/L (20.0-31.0); Chloride 102 mMol/L (98-107); Creatinine (Component) 0.6 mg/dL (0.6-1.3); Estimated Creatinine Clearance 93.3 mL/min (>60); Globulin 2.8 gm/dL (2.3-3.5); Glucose 166 mg/dL (74-106); LDH (Lactate Dehydrogenase) 145 U/L (120-246); Lipase 41 U/L (12-53); Magnesium 1.9 mg/dL (1.6-2.6); Osmolality,Calculated 291 (275-295); Phosphorous 3.2 mg/dL (2.4-5.1); Potassium 4.5 mMol/L (3.4-5.1); Procalcitonin 0.17 ng/ml (0.0-0.49); Sodium 142 mMol/L (136-145); Total Protein 6.3 gm/dL (5.7-8.2); Troponin I < 0.020 ng/mL (0.0-0.045); eGFR > 60 See Note
[2024-07-26] MEDS: Vancomycin Inj 1,500 MG in SODIUM CHLORIDE 0.9% 500 ML 500 ML 200 MG IV (11:33)
[2024-07-26 11:50] LABS: Collection Type, Urine Clean Catch
--- NOTE | 2024-07-26 11:58 | PC.CC ---
1158: ER medical provider informed ER SS that the pts family will be traveling from [place] to the ER because of her current status. Pt will only be given fluids and antibiotics until the pts daughter arrives to the ER to make continued decisions.
[2024-07-26 12:00] LABS: Bacteria,Urine Rare; Bilirubin,Urine Negative (Negative); Blood,Urine Trace (Negative); Clarity,Urine Turbid (Clear/Hazy); Color,Urine Yellow (Lt Yel-Yel); Glucose, Urine Negative (Negative); Ketones,Urine Negative (Negative); Leukocyte Esterase,Urine Positive (Negative); Nitrite,Urine Negative (Negative); PH,Urine 6.5 (5.0-7.0); Protein,Urine 1+ (Neg - Trace); RBC,Urine 21 /hpf (0-3); Specific Gravity,Urine 1.018 (1.001-1.035); Squamous Epithelial Cell,Urine 1 /hpf (0-5); Transitional Epi Cells,Urine 2 /hpf (0-5); Urobilinogen,Urine Negative mg/dL (0.0-1.0); WBC,Urine 254 /hpf (0-5)
[2024-07-26 13:13] LABS: Reflex Lactate? Y
[2024-07-26 13:40] LABS: Lactic Acid, 3 HR 1.8 mMol/L (0.4-2.0)
--- NOTE | 2024-07-26 18:16 | PD.RESHP ---
Documentation for date of: 07/26/24 HPI History of Present Illness Chief complaint: Altered mental status History of present illness: Patient is a 69-year-old female with past medical history significant for nonverbal, trach/PEG, epilepsy, hypertension, hyperlipidemia, and diabetes mellitus who presented to the ED with altered mental status. Patient was brought from her subacute facility in the hospital after patient found to have a high-grade fever of 102.8 ?F and leukocytosis. Patient is a poor historian, most of history was obtained from chart review and ED note. Of note, patient's baseline mentation is awake and alert, opens her eyes simultaneously, able to understand commands and responds with yes or no nods. ED course: Patient presented with low blood pressure of 96/43, respiration rate 24, high-grade fever. Labs significant for leukocytosis of 28,000, normocytic anemia, slightly elevated BNP 106, and UA positive for UTI. Chest x-ray showed left base pneumonia, and CT abdomen pelvis showed bibasilar pneumonia, cholelithiasis and marked thickening of urinary bladder wall but no abscesses in abdomen or pelvis area Patient was admitted for further management of sepsis secondary to UTI versus ventilator associated pneumonia. Past medical history: As mentioned above Past surgical history: Unknown Family history: Unknown Meds: Bisacodyl as needed, DuoNebs as needed, artificial tears bilaterally Q8, BuSpar 10 mg p.o. twice daily, vitamin D twice daily, gentamicin eyedrops 4 times daily, lispro sliding scale, Keppra 1000 mg GT twice daily Milk of mag 30 mg p.o. daily as needed polyethylene glycol 17 g p.o. daily as needed, and valproic acid 500 mg GT 3 times daily Allergies: Codeine Social history: Unknown if patient was ever smoker or drink alcohol. Will have to gather more family history and social history from patient's family when present at bedside Review of Systems Review of Systems ROS Unobtainable: unobtainable due to mental status Exam Vital Signs Temp Pulse Resp BP Pulse Ox O2 Del Method FiO2 98.4 F 89 22 H 111/55 L 95 Mechanical Ventilation 30 07/26/24 18:07 07/26/24 18:07 07/26/24 18:07 07/26/24 18:07 07/26/24 18:07 07/26/24 18:07/26/24 18:07 Narrative Exam General Appearance: Well-nourished, well-developed elderly female, in mild respiratory distress, lying in bed HEENT: NC/AT, no scleral icterus, no conjunctival pallor, MMM Lungs: Coarse sounds in bilateral bases, crackles appreciated on left lower base CVS: RRR, S1/S2 heard, no murmurs or rubs appreciated ABD: Soft, non-tender, non-distended, BS + in all 4 quadrants EXT: no deformity/edema/lesions/cyanosis/clubbing, radial pulses 2+ BL, DP pulses 2 + BL SKIN: Skin exam normal without any rashes. Neuro: Alert and awake, however unable to state name, place, person due to patient's nonverbal nature. Upper and lower extremities contracted, not following commands, however able to respond to yes/no questions. Motor and sensory grossly intact in B/L UL and LL. Psych: Appropriate mood and affect Results: Labs 07/27/24 05:18 07/27/24 05:18 Labs: Short CBC 07/26/24 Range/Units 10:07 WBC 28.7 H (3.6-11.0) Thou/mm3 Hgb 7.7 L (12.0-16.0) g/dL Hct 23.2 L (36.0-46.0) % Plt Count 222 (140-440) Thou/mm3 BMP 07/26/24 10:07 Sodium 142 Potassium 4.5 Chloride 102 Carbon Dioxide 33.2 H BUN 24 H Creatinine 0.6 Glucose 166 H Calcium 8.8 Cardiac Enzymes 07/26/24 Range/Units 10:07 Troponin I < 0.020 (0.0-0.045) ng/mL Liver Function 07/26/24 Range/Units 10:07 Total Bilirubin 0.3 (0.3-1.2) mg/dL AST 13 (0-34) U/L ALT < 7 L (10-49) U/L Alkaline Phosphatase 61 (46-116) U/L Albumin 3.5 (3.4-4.8) gm/dL Urine 07/26/24 Range/Units 11:43 Urine Color Yellow (Lt Yel-Yel) Urine Clarity Turbid A (Clear/Hazy) Urine pH 6.5 (5.0-7.0) Ur Specific [place]enport 1.018 (1.001-1.035) Urine Protein 1+ A (Neg - Trace) Urine Glucose (UA) Negative (Negative) Quality Measures Quality Measures sepsis Current suspected stage: sepsis Possible source: pulmonary Blood cultures ordered: completed in ED Antibiotic ordered: Yes Advance care planning discussed with:: other Medications Home Medications and Allergies Home Medications ?Medication ?Instructions ?Recorded ?Confirmed ?Type acetaminophen 325 mg capsule 650 mg PO QID PRN pain 07/27/24 07/27/24 History acetylcysteine 100 mg/mL (10 %) 3 ml inhalation Q6H 07/27/24 07/27/24 History solution buspirone 5 mg tablet 10 mg G-tube BID Agitation 07/27/24 07/27/24 History gentamicin 0.3 % eye drops 1 drp Both eyes QID infection 07/27/24 07/27/24 History insulin lispro 100 unit/mL 1 sliding scale dose subcut 07/27/24 07/27/24 History subcutaneous solution (Humalog USEASDIRECTD U-100 Insulin) Allergies Allergy/AdvReac Type Severity Reaction Status Date / Time codeine Allergy Verified 06/24/24 19:33 Visit Medications Acetaminophen (Acetaminophen 325 Mg Tablet) 650 mg PO Q6H PRN PRN Reason: Fever >100.4 or Pain 1-3 Stop: 08/25/24 18:04 Heparin Sodium (Porcine) (Heparin Sod Inj 5000 Unit/Ml Vial) 5,000 unit SC Q12HR [facility] Stop: 08/09/24 20:59 Vancomycin/Sodium Chloride (Vancomycin/Ns 1 Gm Ivpb) 200 mls @ 120 mls/hr IV X1 ONE Stop: 07/26/24 23:39 Piperacillin/Tazobactam/Dextrose (Zosyn) 3.375 gm in 50 mls @ 12.5 mls/hr IV Q8HR JAYMIE Stop: 08/03/24 05:59 Piperacillin/Tazobactam/Dextrose (Zosyn) 3.375 gm in 50 mls @ 100 mls/hr IV X1 ONE Stop: 07/26/24 18:44 Pharmacy Consult (Vancomycin Pharmacy To Dose 1 Each Each) 1 each IV QDAY PRN PRN Reason: CONSULT Stop: 08/25/24 10:14 Discontinued Medications Sodium Chloride (Ns) 1,710 mls @ 1,710 mls/hr 30 ml/kg infuse over 60 min (1710 ml) IV .Q1H ONE Stop: 07/26/24 10:58 Last Infusion: 07/26/24 11:44 Dose: Infused Norepinephrine/Dextrose (Levophed In D5w 8mg/250ml) 8 mg in 250 mls @ 7.867 mls/hr IV .Q24H PRN; Protocol PRN Reason: PER PROTOCOL Stop: 08/25/24 09:58 Piperacillin/Tazobactam/Dextrose (Zosyn) 3.375 gm in 50 mls @ 100 mls/hr IV X1 ONE Stop: 07/26/24 10:28 Last Infusion: 07/26/24 11:30 Dose: Infused Vancomycin HCl 1,500 mg/ (Sodium Chloride) 500 mls @ 200 mls/hr IV X1 ONE Stop: 07/26/24 12:44 Last Infusion: 07/26/24 15:14 Dose: Infused Assessment & Plan Plan Patient is a 69-year-old female with past medical history significant for nonverbal, trach/PEG, epilepsy, hypertension, hyperlipidemia, and diabetes mellitus who presented to the ED with altered mental status and admitted for further management of sepsis secondary to UTI versus ventilator associated pneumonia. #Sepsis secondary to #UTI #Ventilator associated pneumonia #History of tracheostomy Patient presented with altered mental status, unable to open her eyes and communicate with her nonverbal cues. However after sepsis bolus and antibiotics, patient was able to slowly return to her baseline. Patient presented with 4/4 SIRS criteria with endorgan damage. Imaging showed bilateral pneumonia. - Admitted to Med telemetry - IV Vanco and IV Zosyn as patient has previous colonization with MRSA and Klebsiella - Pending blood and urine cultures - Patient received sepsis bolus at 30 cc/kg and maintaining perfusion with MAP greater than 65 - Consulted infectious disease, appreciate recommendations - Continue with airway suctioning as needed and tracheostomy maintenance with respiratory therapist - Mechanical ventilator set at 7 setting with low FiO2 and PEEP - DuoNebs every 2 as needed as needed - Eyedrops as needed #History of PEG Unsure which tube feed patient uses - Will start patient on Jevity at trickle feeds 10 cc/h - Consulted dietary for further recommendations on tube feeds and tube feed goal - Started patient on sign scale insulin with hypoglycemic protocol #Diabetes mellitus-stable Last 2 A1c reported to be under 6.5 -Continue with sliding scale insulin -hypoglycemic protocol if needed #History of seizures Resume patient's home Keppra and valproic acid via G-tube Health Maintenance: DVT prophylaxis: Heparin subcu Diet: Jevity via PEG Hobson: Recently changed in the ER, noted to have light pink-tinged urine, and cloudy Lines: PIV Supplemental O2: None CODE STATUS: DNR per chart Disposition: Patient admitted to [facility] for further management of sepsis secondary to UTI versus ventilator associated pneumonia pending cultures. Patient's plan and care discussed with my attending, Dr. Cain Parada MD PGY-2 Attending Provider Attestation/Addendum I reviewed labs, imaging, EKG, home medications and prior available records. Face to face evaluation was performed by me. I have personally examined the patient and discussed assessment and plan with the IM team. I reviewed the resident note and agree with the plan with exceptions as below. Brain injury Chronic encephalopathy Chronic hypoxic respiratory failure Status post tracheostomy and PEG tube insertion Sepsis Left lower lobe pneumonia Acute UTI Gave IV fluids Started vancomycin/Zosyn given the history of Pseudomonas infection and recent positive MRSA screen Follow-up blood and urine cultures Trend WBC Continue Keppra and valproic acid
[2024-07-26] MEDS: Artificial Tears 225 DROP/15 ML BTL BOTH EYES (18:56)
--- NOTE | 2024-07-26 20:16 | PC.NURSE ---
CALLED PT URINE OUTPUT IS NOW BLOOD TINGED WITH SOME BLOOD CLOTS DRAINING VIA GOMEZ
[2024-07-26] MEDS: GENTAMICIN OP SOL 0.3% 5 ML BTL BOTH EYES (21:21)
[2024-07-26] MEDS: VALPROIC ACID SYRUP 250 MG/5 ML UDC 500 MG GT (21:23)
[2024-07-26] MEDS: CHOLECALCIFEROL (Vitamin D3) 1,000 IU TABLET 1000 IU PO (21:24)
[2024-07-26] MEDS: BusPIRone HCL 5 MG TABLET 10 MG PO (21:24)
--- NOTE | 2024-07-26 21:25 | PC.LAC ---
called house sup roma obando
[2024-07-26] MEDS: levETIRAcetam LIQD 500 MG/5 ML UDC 1000 MG GT (21:34)
[2024-07-26] MEDS: HEPARIN SOD INJ 5000 UNIT/ML VIAL SC (21:40)
[2024-07-26] MEDS: VANCOMYCIN/NS 1 GM IVPB 200 ML IV (22:09)
[2024-07-26] MEDS: ACETAMINOPHEN 325 MG TABLET 650 MG PO (22:18)
--- NOTE | 2024-07-26 22:34 | PC.NURSE ---
hospitalist wants manual bladder irriagtion
--- NOTE | 2024-07-26 22:48 | PC.NURSE ---
per manual ladder irrigation even though order for cbi flushed 250 ml of with out put of 233 light red with one blood clot flushed until return was clear and not visible clots and return was clear
[2024-07-27] VITALS (11 sets, daily range): BP systolic 111–137; BP diastolic 54–71; PULSE 75–92; RESP 17–37; TEMP 36–37; O2SAT 30–97; BMI 31.2; BMI 31.3
[2024-07-27] MEDS: Artificial Tears 225 DROP/15 ML BTL BOTH EYES ×2 (02:06→09:29)
[2024-07-27] MEDS: VALPROIC ACID SYRUP 250 MG/5 ML UDC 500 MG GT ×3 (05:20→22:23)
[2024-07-27] MEDS: PIPER/TAZO 3.375 GM PREMIX 3.375 GM/50 ML BAG IV ×3 (05:21→22:23)
[2024-07-27] MEDS: GENTAMICIN OP SOL 0.3% 5 ML BTL BOTH EYES ×3 (05:21→22:30)
[2024-07-27 06:08] LABS: Basophils # (Auto) 0.1 Thou/mm3 (0.0-0.2); Basophils % (Auto) 0 % (0-2.5); Eosinophils # (Auto) 0.9 Thou/mm3 (0.0-0.5); Eosinophils % (Auto) 3 % (0-10); Hematocrit 25.9 % (36.0-46.0); Immature Granulocytes % (Auto) 1 % (0-0); Immature Granulocytes Auto 0.43 Thou/mm3 (0.00-0.00); Lymphocytes # (Auto) 3.8 Thou/mm3 (1.0-4.8); Lymphocytes % (Auto) 12 % (10-50); Mean Corpuscular HGB Conc 31.3 g/dl (31.0-37.0); Mean Corpuscular Hemoglobin 30.2 pg (25.0-35.0); Mean Corpuscular Volume 97 fL (80-100); Monocytes # (Auto) 3.3 Thou/mm3 (0.0-0.8); Monocytes % (Auto) 11 % (0-12); Neutrophils % (Auto) 72 % (37-80); Nucleated Red Blood Cell % 0 /100 WBC (0); Platelet Count 248 Thou/mm3 (140-440); RDW Standard Deviation 67.6 fL (36.4-46.3); Red Blood Count 2.68 Miln/mm3 (4.00-5.20); White Blood Count 30.4 Thou/mm3 (3.6-11.0)
[2024-07-27 06:17] LABS: Hemoglobin 8.1 g/dL (12.0-16.0)
[2024-07-27 06:46] LABS: Alanine Aminotransferase < 7 U/L (10-49); Albumin, Serum 3.5 gm/dL (3.4-4.8); Albumin/Globulin Ratio 1.2 (1.2-2.2); Alkaline Phosphatase 59 U/L (46-116); Anion Gap 10 (7-16); Aspartate Amino Transferase 15 U/L (0-34); BUN/Creatinine Ratio 32 Ratio (12-20); Bilirubin,Total 0.3 mg/dL (0.3-1.2); Blood Urea Nitrogen 16 mg/dL (9-23); Calcium 8.4 mg/dL (8.3-10.6); Calcium (Corrected) 8.8 mg/dL (8.5-10.1); Chloride 103 mMol/L (98-107); Creatinine (Component) 0.5 mg/dL (0.6-1.3); Estimated Creatinine Clearance 112.9 mL/min (>60); Glucose 95 mg/dL (74-106); Magnesium 1.9 mg/dL (1.6-2.6); Osmolality,Calculated 289 (275-295); Sodium 145 mMol/L (136-145); Total Protein 6.5 gm/dL (5.7-8.2); eGFR > 60 See Note
[2024-07-27 06:48] LABS: B-Type Natriuretic Peptide 58 pg/mL (0-100)
[2024-07-27] MEDS: BusPIRone HCL 5 MG TABLET 10 MG PO ×2 (09:00→22:23)
[2024-07-27] MEDS: CHOLECALCIFEROL (Vitamin D3) 1,000 IU TABLET 1000 IU PO ×2 (09:00→22:22)
[2024-07-27] MEDS: levETIRAcetam LIQD 500 MG/5 ML UDC 1000 MG GT ×2 (09:00→22:23)
[2024-07-27] MEDS: VANCOMYCIN/NS 1 GM IVPB 200 ML IV ×2 (09:01→23:11)
--- NOTE | 2024-07-27 09:02 | PC.DIETICIAN ---
Nutrition Prescription: 1. Glucerna 1.2 at 20 ml/hr via PEG tube by pump. Advance 10 ml every 8 hrs to goal rate of 58ml/hr x 22 hrs. If no IV fluids, water flushes of 25ml/hr (or per MD). 2. Unflavored Arash 1 pkt BID daily after brk, after lunch. Mix with 6-8 oz water for targeted nutrition and wound healing, RN to administer as medication. Thank you! :)
--- NOTE | 2024-07-27 09:11 | PD.RESPRO ---
Documentation for date of: 07/27/24 Subjective Subjective Interval history: No acute overnight events. Seen and examined at bedside and patient is alert, follows some commands with head nods and thumbs up, but falls asleep easily. Remains on mechanical ventilation and does not appear to be in distress. She did have a temperature of 100.4 ?F at 10 PM last night but otherwise vital signs stable. Leukocyte remains elevated at 30, hemoglobin stable at 8.1, lactate downtrending from 2.5 to 1.8. Exam Vital Signs Temp Pulse Resp BP Pulse Ox O2 Del Method FiO2 96.8 F 80 26 H 137/59 H 95 Mechanical Ventilation 30 07/27/24 04:00 07/27/24 06:51 07/27/24 06:51 07/27/24 04:00 07/27/24 06:51 07/27/24 04:00 07/27/24 06:51 Narrative Exam General: alert, responds to questions and follows some commands, trached, mechanically ventilated HEENT: NC/AT, mucous membranes moist, bilateral sclera anicteric Cardiovascular: regular rate and rhythm, S1/S2 present, no murmurs appreciated Pulmonary: not in respiratory distress, clear to auscultation bilaterally, no rales/rhonchi/wheezes Abdominal: soft, non-tender, non-distended, no rebound/guarding, normal bowel sounds present Musculoskeletal: normal ROM, no peripheral edema Skin: warm and dry, intact, no rashes Neuro: unable to assess Objective Labs 07/28/24 06:40 07/28/24 06:40 Labs: Laboratory Results - last 24 hr 07/26/24 07/26/24 07/26/24 10:07 11:43 13:34 WBC 28.7 H RBC 2.45 L Hgb 7.7 L Hct 23.2 L MCV 95 MCH 31.4 MCHC 33.2 RDW Std Deviation 64.0 H Plt Count 222 Neut % (Auto) 75 Lymph % (Auto) 8 L Villalba % (Auto) 15 H Eos % (Auto) 0 Baso % (Auto) 0 Neut # (Auto) 21.4 H Lymph # (Auto) 2.4 Villalba # (Auto) 4.4 H Eos # (Auto) 0.1 Baso # (Auto) 0.1 Immature Gran # (Auto) 0.41 H Absolute Nucleated RBC 0.03 H Immature Gran % 1 H Nucleated RBC % 0 PT 11.9 INR 1.1 APTT 25.6 Sodium 142 Potassium 4.5 Chloride 102 Carbon Dioxide 33.2 H Anion Gap 7 BUN 24 H Creatinine 0.6 Estim Creat Clear Calc 93.3 eGFR > 60 BUN/Creatinine Ratio 40 H Glucose 166 H Calculated Osmolality 291 Lactic Acid 2.5 H 1.8 Calcium 8.8 Corrected Calcium 9.2 Phosphorus 3.2 Magnesium 1.9 Total Bilirubin 0.3 AST 13 ALT < 7 L Alkaline Phosphatase 61 Lactate Dehydrogenase 145 Troponin I < 0.020 B-Natriuretic Peptide 106 H Total Protein 6.3 Albumin 3.5 Globulin 2.8 Albumin/Globulin Ratio 1.3 Lipase 41 Procalcitonin 0.17 Ur Collection Type Clean Catch Urine Color Yellow Urine Clarity Turbid A Urine pH 6.5 Ur Specific Mullen 1.018 Urine Protein 1+ A Urine Glucose (UA) Negative Urine Ketones Negative Urine Blood Trace Urine Nitrite Negative Urine Bilirubin Negative Urine Urobilinogen (Auto) Negative Ur Leukocyte Esterase Positive Urine RBC 21 H Urine WBC 254 H Ur Squamous Epith Cells 1 Ur Transition Epith Cell 2 Urine Bacteria Rare 07/27/24 05:18 WBC 30.4 H RBC 2.68 L Hgb 8.1 L Hct 25.9 L MCV 97 MCH 30.2 MCHC 31.3 RDW Std Deviation 67.6 H Plt Count 248 Neut % (Auto) 72 Lymph % (Auto) 12 Villalba % (Auto) 11 Eos % (Auto) 3 Baso % (Auto) 0 Neut # (Auto) 22.0 H Lymph # (Auto) 3.8 Villalba # (Auto) 3.3 H Eos # (Auto) 0.9 H Baso # (Auto) 0.1 Immature Gran # (Auto) 0.43 H Absolute Nucleated RBC 0.00 Immature Gran % 1 H Nucleated RBC % 0 PT INR APTT Sodium 145 Potassium 4.0 D Chloride 103 Carbon Dioxide 32.0 H Anion Gap 10 BUN 16 Creatinine 0.5 L Estim Creat Clear Calc 112.9 eGFR > 60 BUN/Creatinine Ratio 32 H Glucose 95 D Calculated Osmolality 289 Lactic Acid Calcium 8.4 Corrected Calcium 8.8 Phosphorus Magnesium 1.9 Total Bilirubin 0.3 AST 15 ALT < 7 L Alkaline Phosphatase 59 Lactate Dehydrogenase Troponin I B-Natriuretic Peptide 58 Total Protein 6.5 Albumin 3.5 Globulin 3.0 Albumin/Globulin Ratio 1.2 Lipase Procalcitonin Ur Collection Type Urine Color Urine Clarity Urine pH Ur Specific Mullen Urine Protein Urine Glucose (UA) Urine Ketones Urine Blood Urine Nitrite Urine Bilirubin Urine Urobilinogen (Auto) Ur Leukocyte Esterase Urine RBC Urine WBC Ur Squamous Epith Cells Ur Transition Epith Cell Urine Bacteria Quality Measures Quality Measures sepsis Current suspected stage: ruled out Possible source: pulmonary Blood cultures ordered: completed in ED Antibiotic ordered: Yes Advance care planning discussed with:: patient Assessment & Plan Assessment Current Active Medications: Generic Name Dose Route Start Last Admin Trade Name Freq PRN Reason Stop Dose Admin Acetaminophen 650 mg 07/26/24 18:05 07/26/24 22:18 Acetaminophen 325 Mg Tablet PO 08/25/24 18:04 650 mg Q6H PRN Administration Fever >100.4 or Pain 1-3 Albuterol/Ipratropium 3 ml 07/26/24 18:17 Albuterol/Ipratropium (Duoneb) Rt Ericka 3 Ml Nebu INH 08/25/24 18:16 Q2HR PRN SHORTNESS OF BREATH OR WHEEZE Artificial Tears 0 drop 07/26/24 18:30 07/27/24 02:06 Artificial Tears 225 Drop/15 Ml Btl BOTH EYES 08/25/24 18:29 1 drops Q8H JAYMIE Administration Bisacodyl 10 mg 07/26/24 18:17 Bisacodyl 10 Mg Supp MN 08/25/24 18:16 QDAY PRN CONSTIPATION Protocol Buspirone HCl 10 mg 07/26/24 21:00 07/27/24 09:00 Buspirone Hcl 5 Mg Tablet PO 08/25/24 20:59 10 mg BID JAYMIE Administration Dextrose 25 ml 07/26/24 18:17 Dextrose 50%-Water Inj 50 Ml Syringe IV 08/25/24 18:16 Q15MIN PRN BG 50-70 responsive npo pt Dextrose 50 ml 07/26/24 18:17 Dextrose 50%-Water Inj 50 Ml Syringe IV 08/25/24 18:16 Q15MIN PRN BG <50 OR BG <70 & pt unresponsive Gentamicin Sulfate 0 drop 07/26/24 21:00 07/27/24 05:21 Gentamicin Op Ericka 0.3% 5 Ml Btl BOTH EYES 08/25/24 20:59 1 drop QID JAYMIE Administration Glucagon 1 mg 07/26/24 18:17 Glucagon Inj 1 Mg Vial IM Q15MIN PRN BG <70, and no IV access Piperacillin/Tazobactam/Dextrose 3.375 gm in 50 mls @ 12.5 mls/hr 07/27/24 06:00 07/27/24 05:21 Zosyn IV 08/03/24 05:59 12.5 mls/hr Q8HR JAYMIE Administration Vancomycin/Sodium Chloride 200 mls @ 120 mls/hr 07/27/24 10:00 07/27/24 09:01 Vancomycin/Ns 1 Gm Ivpb IV 08/03/24 09:59 120 mls/hr BID@1000,2200 JAYMIE Administration Protocol Insulin Human Lispro 0 unit 07/27/24 06:00 07/27/24 05:21 Insulin Lispro (Admelog) 1 Unit/0.01 Ml Unit SC 08/26/24 05:59 Not Given Q6HR JAYMIE Protocol Levetiracetam 1,000 mg 07/26/24 21:00 07/27/24 09:00 Levetiracetam Liqd 500 Mg/5 Ml Udc GT 08/25/24 20:59 1,000 mg BID JAYMIE Administration Magnesium Hydroxide 30 ml 07/26/24 18:22 Milk Of Magnesia Susp 30 Ml Udc PO 08/25/24 18:21 QDAY PRN CONSTIPATION Protocol Pharmacy Consult 1 each 07/26/24 10:15 Vancomycin Pharmacy To Dose 1 Each Each IV 08/25/24 10:14 QDAY PRN CONSULT Polyethylene Glycol 17 gm 07/26/24 18:22 Polyethylene Glycol 17 Gm Packet PO 08/25/24 18:29 QDAY PRN constipation Valproic Acid 500 mg 07/26/24 22:00 07/27/24 05:20 Valproic Acid Syrup 250 Mg/5 Ml Udc GT 08/25/24 21:59 500 mg TID JAYMIE Administration Vitamin D 1,000 iu 07/26/24 21:00 07/27/24 09:00 Cholecalciferol (Vitamin D3) 1,000 Iu Tablet PO 08/25/24 20:59 1,000 iu BID JAYMIE Administration Plan Guerita Ennis is a 69-year-old female coming from [facility] with past medical history significant for trach (on ventilator) and PEG, nonverbal, epilepsy, hypertension, hyperlipidemia, and diabetes mellitus who presented to the ED with altered mental status and admitted for further management of sepsis secondary to UTI versus ventilator associated pneumonia. #Sepsis secondary to #UTI #Ventilator associated pneumonia #History of tracheostomy Presented with altered mental status, unable to open her eyes and communicate with nonverbal cues. However, after sepsis bolus and antibiotics, patient slowly returned to her baseline. Presented with 4/4 SIRS criteria with endorgan damage, BP as low as 88/51. Imaging showed bilateral pneumonia and UA showed turbid urine, 1+ protein, 21 RBC, 254 WBC, rare bacteria, LE positive. - IV Vanco and IV Zosyn as patient has previous colonization with MRSA, ESBL Klebsiella, and Pseudomonas - Pending blood and urine cultures - Patient received sepsis bolus at 30 cc/kg and maintaining perfusion with MAP greater than 65 - Consulted infectious disease, appreciate recommendations - Continue with airway suctioning as needed and tracheostomy maintenance with respiratory therapist - Mechanical ventilator set at 7 setting with low FiO2 and PEEP - DuoNebs every 2 as needed as needed - Eyedrops as needed #History of PEG Unsure which tube feed patient uses - Will start patient on Jevity at trickle feeds 10 cc/h - Consulted dietary for further recommendations on tube feeds and tube feed goal - Started patient on sign scale insulin with hypoglycemic protocol #Diabetes mellitus-stable Last 2 A1c reported to be under 6.5 -Continue with sliding scale insulin -hypoglycemic protocol if needed #History of seizures Resume patient's home Keppra and valproic acid via G-tube Health Maintenance: DVT prophylaxis: Heparin subcu Diet: Jevity via PEG Hobson: Recently changed in the ER, noted to have light pink-tinged urine, and cloudy Lines: PIV Supplemental O2: None CODE STATUS: DNR per chart Disposition: Patient admitted to [facility] for further management of sepsis secondary to UTI versus ventilator associated pneumonia pending cultures. ----- Plan discussed with attending physician Dr. Cain Oakes MD PGY-1 Internal Medicine Attending Provider Attestation/Addendum I reviewed labs, imaging, EKG, home medications and prior available records. Face to face evaluation was performed by me. I have personally examined the patient and discussed assessment and plan with the IM team. I reviewed the resident note and agree with the plan with exceptions as below. Brain injury Chronic encephalopathy Chronic hypoxic respiratory failure Status post tracheostomy and PEG tube insertion Sepsis Left lower lobe pneumonia Acute UTI Bilateral lower extremity swelling Gave IV fluids Started vancomycin/Zosyn given the history of Pseudomonas infection and recent positive MRSA screen Follow-up blood and urine cultures Trend WBC: Getting worse. Send sputum culture Continue Keppra and valproic acid BNP is negative. Ordered echocardiogram Consulted dietitian for tube feed recommendation
--- NOTE | 2024-07-27 11:37 | PC.NURSE ---
RT ortega aware of orders for sputum culture collection
--- NOTE | 2024-07-27 14:26 | PC.RT ---
sputum sample collected and sent to lab.
[2024-07-27 22:08] LABS: Vancomycin,Trough 13.7 mcg/mL (5.0-10.0)
[2024-07-28] VITALS (17 sets, daily range): BP systolic 102–133; BP diastolic 50–94; PULSE 58–95; RESP 17–38; TEMP 35.9–36.6; O2SAT 93–99
[2024-07-28] MEDS: Artificial Tears 225 DROP/15 ML BTL BOTH EYES ×3 (01:45→18:16)
[2024-07-28] MEDS: GENTAMICIN OP SOL 0.3% 5 ML BTL BOTH EYES ×4 (05:06→21:15)
[2024-07-28] MEDS: PIPER/TAZO 3.375 GM PREMIX 3.375 GM/50 ML BAG IV ×3 (05:06→21:15)
[2024-07-28] MEDS: VALPROIC ACID SYRUP 250 MG/5 ML UDC 500 MG GT ×3 (05:33→21:14)
[2024-07-28 06:56] LABS: Basophils # (Auto) 0.1 Thou/mm3 (0.0-0.2); Basophils % (Auto) 1 % (0-2.5); Eosinophils % (Auto) 5 % (0-10); Hematocrit 25.6 % (36.0-46.0); Immature Granulocytes % (Auto) 5 % (0-0); Immature Granulocytes Auto 0.96 Thou/mm3 (0.00-0.00); Lymphocytes # (Auto) 3.3 Thou/mm3 (1.0-4.8); Lymphocytes % (Auto) 18 % (10-50); Mean Corpuscular Hemoglobin 29.9 pg (25.0-35.0); Mean Corpuscular Volume 93 fL (80-100); Monocytes % (Auto) 11 % (0-12); Neutrophils # (Auto) 11.3 Thou/mm3 (1.8-7.7); Neutrophils % (Auto) 60 % (37-80); Nucleated Red Blood Cell # 0.04 Thou/mm3 (0.00-0.00); Nucleated Red Blood Cell % 0 /100 WBC (0); Platelet Count 237 Thou/mm3 (140-440); Red Blood Count 2.74 Miln/mm3 (4.00-5.20); White Blood Count 18.7 Thou/mm3 (3.6-11.0)
[2024-07-28 07:00] LABS: Hemoglobin 8.2 g/dL (12.0-16.0)
[2024-07-28 07:52] LABS: Alanine Aminotransferase < 7 U/L (10-49); Albumin, Serum 3.6 gm/dL (3.4-4.8); Albumin/Globulin Ratio 1.2 (1.2-2.2); Alkaline Phosphatase 64 U/L (46-116); Anion Gap 10 (7-16); Aspartate Amino Transferase 20 U/L (0-34); BUN/Creatinine Ratio 23 Ratio (12-20); Bilirubin,Total 0.2 mg/dL (0.3-1.2); Blood Urea Nitrogen 14 mg/dL (9-23); Calcium 8.4 mg/dL (8.3-10.6); Calcium (Corrected) 8.7 mg/dL (8.5-10.1); Carbon Dioxide 31.2 mMol/L (20.0-31.0); Chloride 101 mMol/L (98-107); Creatinine (Component) 0.6 mg/dL (0.6-1.3); Estimated Creatinine Clearance 93.4 mL/min (>60); Globulin 2.9 gm/dL (2.3-3.5); Glucose 126 mg/dL (74-106); Osmolality,Calculated 285 (275-295); Potassium 3.8 mMol/L (3.4-5.1); Sodium 142 mMol/L (136-145); Total Protein 6.5 gm/dL (5.7-8.2); eGFR > 60 See Note
--- NOTE | 2024-07-28 09:29 | PC.SS ---
This is 69-year-old, , single female who presented from [facility]. Patient is nonverbal. SW completed assessment with sister, Suzie. Per Suzie, patient resides at [facility]. Patient is non-verbal with a PEG and trach. Patient's emergency contact and medical decision maker is her sister, Suzie. When medically clear, patient will return to [facility]. Discharge plan: [facility]
[2024-07-28] MEDS: BusPIRone HCL 5 MG TABLET 10 MG GT ×2 (09:30→21:14)
[2024-07-28] MEDS: levETIRAcetam LIQD 500 MG/5 ML UDC 1000 MG GT ×2 (09:30→21:14)
[2024-07-28] MEDS: CHOLECALCIFEROL (Vitamin D3) 1,000 IU TABLET 1000 IU GT ×2 (09:30→21:14)
[2024-07-28] MEDS: VANCOMYCIN/D5W 1,250 MG IVPB 250 ML 120 MG IV ×2 (09:34→21:14)
--- NOTE | 2024-07-28 10:21 | ESPR_ITS ---
Documentation for date of: 07/28/24 Subjective Subjective Interval history: No acute overnight events noted. Seen and examined at bedside and per verbal cues and nursing staff, patient appears to be slightly anxious and will start low-dose ativan. Otherwise, she did not have any fevers overnight and denies shortness of breath. Will continue with broad-spectrum antibiotics until cultures come back and infectious disease consulted and will possibly see patient after weekend. Exam Vital Signs Temp Pulse Resp BP Pulse Ox O2 Del Method FiO2 97.6 F 58 L 17 133/76 H 99 Room Air 30 07/28/24 08:00 07/28/24 08:00 07/28/24 08:00 07/28/24 08:00 07/28/24 08:00 07/28/24 08:00 07/28/24 07:06 Narrative Exam General: alert, responds to questions and follows some commands, trached, mechanically ventilated HEENT: NC/AT, mucous membranes moist, bilateral sclera anicteric Cardiovascular: regular rate and rhythm, S1/S2 present, no murmurs appreciated Pulmonary: not in respiratory distress, clear to auscultation bilaterally, no rales/rhonchi/wheezes Abdominal: soft, non-tender, non-distended, no rebound/guarding, normal bowel sounds present Musculoskeletal: normal ROM, no peripheral edema Skin: warm and dry, intact, no rashes Neuro: unable to assess Objective Labs 07/29/24 05:29 07/29/24 05:29 Labs: Laboratory Results - last 24 hr 07/27/24 07/28/24 21:29 06:40 WBC 18.7 H D RBC 2.74 L Hgb 8.2 L Hct 25.6 L MCV 93 MCH 29.9 MCHC 32.0 RDW Std Deviation 61.0 H Plt Count 237 Neut % (Auto) 60 Lymph % (Auto) 18 [place] % (Auto) 11 Eos % (Auto) 5 Baso % (Auto) 1 Neut # (Auto) 11.3 H Lymph # (Auto) 3.3 [place] # (Auto) 2.0 H Eos # (Auto) 1.0 H Baso # (Auto) 0.1 Immature Gran # (Auto) 0.96 H Absolute Nucleated RBC 0.04 H Immature Gran % 5 H Nucleated RBC % 0 Sodium 142 Potassium 3.8 Chloride 101 Carbon Dioxide 31.2 H Anion Gap 10 BUN 14 Creatinine 0.6 Estim Creat Clear Calc 93.4 eGFR > 60 BUN/Creatinine Ratio 23 H Glucose 126 H Calculated Osmolality 285 Calcium 8.4 Corrected Calcium 8.7 Total Bilirubin 0.2 L AST 20 ALT < 7 L Alkaline Phosphatase 64 Total Protein 6.5 Albumin 3.6 Globulin 2.9 Albumin/Globulin Ratio 1.2 Vancomycin Trough 13.7 H Quality Measures Quality Measures sepsis Current suspected stage: ruled out Possible source: pulmonary Blood cultures ordered: completed in ED Antibiotic ordered: Yes Advance care planning discussed with:: patient Assessment & Plan Assessment Current Active Medications: Generic Name Dose Route Start Last Admin Trade Name Freq PRN Reason Stop Dose Admin Acetaminophen 650 mg 07/28/24 09:01 Acetaminophen Ericka 325 Mg/10 Ml Udc GT 08/27/24 09:00 Q6H PRN Fever >100.4 or Pain 1-3 Albuterol/Ipratropium 3 ml 07/26/24 18:17 Albuterol/Ipratropium (Duoneb) Rt Ericka 3 Ml Nebu INH 08/25/24 18:16 Q2HR PRN SHORTNESS OF BREATH OR WHEEZE Artificial Tears 0 drop 07/26/24 18:30 07/28/24 09:46 Artificial Tears 225 Drop/15 Ml Btl BOTH EYES 08/25/24 18:29 2 drops Q8H JAYMIE Administration Bisacodyl 10 mg 07/26/24 18:17 Bisacodyl 10 Mg Supp HI 08/25/24 18:16 QDAY PRN CONSTIPATION Protocol Buspirone HCl 10 mg 07/28/24 09:15 07/28/24 09:30 Buspirone Hcl 5 Mg Tablet GT 08/27/24 09:14 10 mg BID JAYMIE Administration Dextrose 25 ml 07/26/24 18:17 Dextrose 50%-Water Inj 50 Ml Syringe IV 08/25/24 18:16 Q15MIN PRN BG 50-70 responsive npo pt Dextrose 50 ml 07/26/24 18:17 Dextrose 50%-Water Inj 50 Ml Syringe IV 08/25/24 18:16 Q15MIN PRN BG <50 OR BG <70 & pt unresponsive Gentamicin Sulfate 0 drop 07/26/24 21:00 07/28/24 05:06 Gentamicin Op Ericka 0.3% 5 Ml Btl BOTH EYES 08/25/24 20:59 1 drop QID JAYMIE Administration Glucagon 1 mg 07/26/24 18:17 Glucagon Inj 1 Mg Vial IM Q15MIN PRN BG <70, and no IV access Piperacillin/Tazobactam/Dextrose 3.375 gm in 50 mls @ 12.5 mls/hr 07/27/24 06:00 07/28/24 05:06 Zosyn IV 08/03/24 05:59 12.5 mls/hr Q8HR JAYMIE Administration Vancomycin HCl/Dextrose 250 mls @ 120 mls/hr 07/28/24 10:00 07/28/24 09:34 Vancomycin/D5w 1,250 Mg Ivpb IV 08/04/24 09:59 120 mls/hr BID@1000,2200 JAYMIE Administration Insulin Human Lispro 0 unit 07/27/24 06:00 07/28/24 05:21 Insulin Lispro (Admelog) 1 Unit/0.01 Ml Unit SC 08/26/24 05:59 Not Given Q6HR [facility] Protocol Levetiracetam 1,000 mg 07/28/24 09:15 07/28/24 09:30 [facility]/27[facility] 09:14 1,000 mg BID JAYMIE Administration Lorazepam 0.5 mg 07/28/24 09:20 Lorazepam 0.5 Mg Tablet GT 08/02/24 09:19 Q6H PRN ANXIETY Magnesium Hydroxide 30 ml 07/28/24 09:11 Milk Of Magnesia Susp 30 Ml [facility] 08/27/24 09:10 QDAY PRN CONSTIPATION Protocol Pharmacy Consult 1 each 07/26/24 10:15 Vancomycin Pharmacy To Dose 1 Each Each IV 08/25/24 10:14 QDAY PRN CONSULT Polyethylene Glycol 17 gm 07/28/24 09:11 Polyethylene Glycol 17 Gm Packet GT 08/27/24 09:10 QDAY PRN constipation Valproic Acid 500 mg 07/26/24 22:00 07/28/24 05:33 Valproic Acid Syrup 250 Mg/5 Ml Udc 08/25/24 21:59 500 mg TID JAYMIE Administration Vitamin D 1,000 iu 07/28/24 09:15 07/28/24 09:30 Cholecalciferol (Vitamin D3) 1,000 Iu Tablet GT 08/27/24 09:14 1,000 iu BID JAYMIE Administration Plan Berdine Ennis is a 69-year-old female coming from [facility] with past medical history significant for trach (on ventilator) and PEG, nonverbal, epilepsy, hypertension, hyperlipidemia, and diabetes mellitus who presented to the ED with altered mental status and admitted for further management of sepsis secondary to UTI versus ventilator associated pneumonia. #Sepsis secondary to #UTI #Ventilator associated pneumonia #History of tracheostomy Presented with altered mental status, unable to open her eyes and communicate with nonverbal cues. However, after sepsis bolus and antibiotics, patient slowly returned to her baseline. Presented with 4/4 SIRS criteria with endorgan damage, BP as low as 88/51. Imaging showed bilateral pneumonia and UA showed turbid urine, 1+ protein, 21 RBC, 254 WBC, rare bacteria, LE positive. ? IV Vanco and IV Zosyn as patient has previous colonization with MRSA, ESBL Klebsiella, and Pseudomonas ? Pending blood, sputum, and urine cultures ? Patient received sepsis bolus at 30 cc/kg and maintaining perfusion with MAP greater than 65 ? Consulted infectious disease, appreciate recommendations ? Continue with airway suctioning as needed and tracheostomy maintenance with respiratory therapist ? Mechanical ventilator set at 7 setting with low FiO2 and PEEP ? DuoNebs every 2 as needed as needed ? Eyedrops as needed #History of PEG Unsure which tube feed patient uses ? Glucerna with goal rate of 50 mL/h ? Arash twice daily ? Started patient on sign scale insulin with hypoglycemic protocol #Diabetes mellitus-stable Last 2 A1c reported to be under 6.5 ? Continue with sliding scale insulin ? Hypoglycemic protocol if needed #History of seizures ? Resume patient's home Keppra and valproic acid via G-tube Health Maintenance: DVT prophylaxis: Heparin subcu Diet: Jevity via PEG Hobson: Recently changed in the ER, noted to have light pink-tinged urine, and cloudy Lines: PIV Supplemental O2: None CODE STATUS: DNR per chart Disposition: Patient admitted to med/tele for further management of sepsis secondary to UTI versus ventilator associated pneumonia pending cultures. ----- Plan discussed with attending physician Dr. Cain Oakes MD PGY-1 Internal Medicine Attending Provider Attestation/Addendum I reviewed labs, imaging, EKG, home medications and prior available records. Face to face evaluation was performed by me. I have personally examined the patient and discussed assessment and plan with the IM team. I reviewed the resident note and agree with the plan with exceptions as below. Brain injury Chronic encephalopathy Chronic hypoxic respiratory failure Status post tracheostomy and PEG tube insertion Sepsis Left lower lobe pneumonia Acute UTI Bilateral lower extremity swelling Gave IV fluids Started vancomycin/Zosyn given the history of Pseudomonas infection and recent positive MRSA screen Follow-up blood, sputum, and urine cultures Trend WBC: Downtrending Consulted ID Continue Keppra and valproic acid BNP is negative. Ordered echocardiogram Consulted dietitian for tube feed recommendation
[2024-07-28] MEDS: INSULIN LISPRO (AdmeLOG) 1 UNIT/0.01 ML UNIT SC ×2 (12:14→23:27)
[2024-07-29] VITALS (9 sets, daily range): BP systolic 112–140; BP diastolic 69–93; PULSE 76–93; RESP 18–33; TEMP 36.1–36.9; O2SAT 93–96; BMI 32.5
[2024-07-29] MEDS: Artificial Tears 225 DROP/15 ML BTL BOTH EYES ×2 (02:04→12:00)
[2024-07-29] MEDS: VALPROIC ACID SYRUP 250 MG/5 ML UDC 500 MG GT (05:10)
[2024-07-29] MEDS: PIPER/TAZO 3.375 GM PREMIX 3.375 GM/50 ML BAG IV (05:10)
[2024-07-29] MEDS: GENTAMICIN OP SOL 0.3% 5 ML BTL BOTH EYES ×2 (05:10→12:46)
[2024-07-29 06:11] LABS: Basophils # (Auto) 0.2 Thou/mm3 (0.0-0.2); Basophils % (Auto) 1 % (0-2.5); Eosinophils % (Auto) 6 % (0-10); Hematocrit 24.4 % (36.0-46.0); Immature Granulocytes % (Auto) 7 % (0-0); Immature Granulocytes Auto 1.32 Thou/mm3 (0.00-0.00); Lymphocytes # (Auto) 2.6 Thou/mm3 (1.0-4.8); Lymphocytes % (Auto) 14 % (10-50); Mean Corpuscular HGB Conc 32.8 g/dl (31.0-37.0); Mean Corpuscular Hemoglobin 30.2 pg (25.0-35.0); Mean Corpuscular Volume 92 fL (80-100); Monocytes # (Auto) 2.1 Thou/mm3 (0.0-0.8); Monocytes % (Auto) 12 % (0-12); Neutrophils % (Auto) 61 % (37-80); Nucleated Red Blood Cell # 0.06 Thou/mm3 (0.00-0.00); Nucleated Red Blood Cell % 0 /100 WBC (0); Platelet Count 306 Thou/mm3 (140-440); RDW Standard Deviation 60.6 fL (36.4-46.3); Red Blood Count 2.65 Miln/mm3 (4.00-5.20); White Blood Count 18.3 Thou/mm3 (3.6-11.0)
[2024-07-29 06:49] LABS: Alanine Aminotransferase < 7 U/L (10-49); Albumin, Serum 3.5 gm/dL (3.4-4.8); Albumin/Globulin Ratio 1.2 (1.2-2.2); Alkaline Phosphatase 62 U/L (46-116); Anion Gap 11 (7-16); Aspartate Amino Transferase 19 U/L (0-34); BUN/Creatinine Ratio 17 Ratio (12-20); Bilirubin,Total 0.2 mg/dL (0.3-1.2); Blood Urea Nitrogen 12 mg/dL (9-23); Calcium 8.5 mg/dL (8.3-10.6); Calcium (Corrected) 8.9 mg/dL (8.5-10.1); Chloride 99 mMol/L (98-107); Creatinine (Component) 0.7 mg/dL (0.6-1.3); Estimated Creatinine Clearance 80.6 mL/min (>60); Globulin 2.9 gm/dL (2.3-3.5); Glucose 131 mg/dL (74-106); Osmolality,Calculated 288 (275-295); Potassium 3.8 mMol/L (3.4-5.1); Sodium 144 mMol/L (136-145); Total Protein 6.4 gm/dL (5.7-8.2); eGFR > 60 See Note
[2024-07-29] MEDS: BusPIRone HCL 5 MG TABLET 10 MG GT (08:19)
[2024-07-29] MEDS: CHOLECALCIFEROL (Vitamin D3) 1,000 IU TABLET 1000 IU GT (08:19)
[2024-07-29] MEDS: levETIRAcetam LIQD 500 MG/5 ML UDC 1000 MG GT (08:19)
--- NOTE | 2024-07-29 09:10 | PC.SS ---
SS follow up note; Pending Dr. Marin Consult. Patient will discharge back to Subacute when medically cleared.
--- NOTE | 2024-07-29 09:48 | PD.IDPROG ---
Subjective Subjective Interval history: temp noted, urine cx pos and ua worse than before with psa. temps down. nasal mrsa neg. so will stop vanco and note S to quinolones Exam Vital Signs Temp Pulse Resp BP Pulse Ox O2 Del Method FiO2 97.0 F 82 18 131/93 H 95 Trach Collar 30 07/29/24 08:00 07/29/24 08:00 07/29/24 08:00 07/29/24 08:00 07/29/24 08:00 07/29/24 08:00 07/29/24 07:27 Narrative Exam bounce back noted. was out for a few days. LLL changes are somewhat chronic wants her teeth. seems stable otherwise Objective - Internal Medicine Labs 07/29/24 05:29 07/29/24 05:29 Labs: Laboratory Results - last 24 hr 07/29/24 05:29 WBC 18.3 H RBC 2.65 L Hgb 8.0 L Hct 24.4 L MCV 92 MCH 30.2 MCHC 32.8 RDW Std Deviation 60.6 H Plt Count 306 D Neut % (Auto) 61 Lymph % (Auto) 14 [place] % (Auto) 12 Eos % (Auto) 6 Baso % (Auto) 1 Neut # (Auto) 11.0 H Lymph # (Auto) 2.6 [place] # (Auto) 2.1 H Eos # (Auto) 1.0 H Baso # (Auto) 0.2 Immature Gran # (Auto) 1.32 H Absolute Nucleated RBC 0.06 H Immature Gran % 7 H Nucleated RBC % 0 Sodium 144 Potassium 3.8 Chloride 99 Carbon Dioxide 34.0 H Anion Gap 11 BUN 12 Creatinine 0.7 Estim Creat Clear Calc 80.6 eGFR > 60 BUN/Creatinine Ratio 17 Glucose 131 H Calculated Osmolality 288 Calcium 8.5 Corrected Calcium 8.9 Total Bilirubin 0.2 L AST 19 ALT < 7 L Alkaline Phosphatase 62 Total Protein 6.4 Albumin 3.5 Globulin 2.9 Albumin/Globulin Ratio 1.2 Assessment & Plan A&P Narrative persistent LLL changes on cxr. worsened pyuria with S to po quinolones noted. 69 y/o with dnr status noted. if nothing else found. ok to move to enteral quinolone (cipro or levaquin) to finish 7d rx. will check in mon if she remains ok for her teeth if they [place] Time Spent With Patient Time: Total time spent is greater than 50% in coordination of care (as documented) at patient's floor/unit and/or counseling patient:
--- NOTE | 2024-07-29 10:49 | ESPR_ITS ---
Documentation for date of: 07/29/24 Subjective Subjective Interval history: Overnight, no acute events reported. Patient continues to be on the SIMV vent setting, with low PEEP and FiO2 requirements. Patient's white count is stable at 18.8. Patient's urine culture grew Pseudomonas and ID recommended to transition to fluoroquinolone for total of 7 days. Gram stain showed 4+ gram- negative rods and 3+ WBC. Blood culture is negative. Will discontinue IV Zosyn at this time. Will anticipate discharge in 24 hours to subacute facility. Exam Vital Signs Temp Pulse Resp BP Pulse Ox O2 Del Method FiO2 97.0 F 82 18 131/93 H 95 Trach Collar 30 07/29/24 08:00 07/29/24 08:00 07/29/24 08:00 07/29/24 08:00 07/29/24 08:00 07/29/24 08:00 07/29/24 10:00 Narrative Exam General Appearance: Pt in no apparent distress, laying comfortably in bed. Patient is trached and on ventilator, able to follow some commands HEENT: NC/AT, no scleral icterus, no conjunctival pallor, MMM Lungs: CTAB, no wheezes or crackles appreciated CVS: RRR, S1/S2 heard, no murmurs or rubs appreciated ABD: Soft, non-tender, non-distended, BS + in all 4 quadrants EXT: no deformity/edema/lesions/cyanosis/clubbing, radial pulses 2+ BL, DP pulses 2 + BL SKIN: Skin exam normal without any rashes. Neuro: Alert and awake. Unable to assess motor or sensory due to patient's chronic trach condition. Psych: Unable to assess Objective Labs 07/29/24 05:29 07/29/24 05:29 Labs: Laboratory Results - last 24 hr 07/29/24 05:29 WBC 18.3 H RBC 2.65 L Hgb 8.0 L Hct 24.4 L MCV 92 MCH 30.2 MCHC 32.8 RDW Std Deviation 60.6 H Plt Count 306 D Neut % (Auto) 61 Lymph % (Auto) 14 [place] % (Auto) 12 Eos % (Auto) 6 Baso % (Auto) 1 Neut # (Auto) 11.0 H Lymph # (Auto) 2.6 [place] # (Auto) 2.1 H Eos # (Auto) 1.0 H Baso # (Auto) 0.2 Immature Gran # (Auto) 1.32 H Absolute Nucleated RBC 0.06 H Immature Gran % 7 H Nucleated RBC % 0 Sodium 144 Potassium 3.8 Chloride 99 Carbon Dioxide 34.0 H Anion Gap 11 BUN 12 Creatinine 0.7 Estim Creat Clear Calc 80.6 eGFR > 60 BUN/Creatinine Ratio 17 Glucose 131 H Calculated Osmolality 288 Calcium 8.5 Corrected Calcium 8.9 Total Bilirubin 0.2 L AST 19 ALT < 7 L Alkaline Phosphatase 62 Total Protein 6.4 Albumin 3.5 Globulin 2.9 Albumin/Globulin Ratio 1.2 Quality Measures Quality Measures sepsis Current suspected stage: sepsis Possible source: pulmonary Blood cultures ordered: completed in ED Antibiotic ordered: Yes Advance care planning discussed with:: other Assessment & Plan Assessment Current Active Medications: Generic Name Dose Route Start Last Admin Trade Name Freq PRN Reason Stop Dose Admin Acetaminophen 650 mg 07/28/24 09:01 Acetaminophen Ericka 325 Mg/10 Ml Udc GT 08/27/24 09:00 Q6H PRN Fever >100.4 or Pain 1-3 Albuterol/Ipratropium 3 ml 07/26/24 18:17 Albuterol/Ipratropium (Duoneb) Rt Ericka 3 Ml Nebu INH 08/25/24 18:16 Q2HR PRN SHORTNESS OF BREATH OR WHEEZE Artificial Tears 0 drop 07/26/24 18:30 07/29/24 02:04 Artificial Tears 225 Drop/15 Ml Btl BOTH EYES 08/25/24 18:29 2 drops Q8H JAYMIE Administration Bisacodyl 10 mg 07/26/24 18:17 Bisacodyl 10 Mg Supp [place] 08/25/24 18:16 QDAY PRN CONSTIPATION Protocol Buspirone HCl 10 mg 07/28/24 09:15 07/29/24 08:19 Buspirone Hcl 5 Mg Tablet GT 08/27/24 09:14 10 mg BID JAYMIE Administration Dextrose 25 ml 07/26/24 18:17 Dextrose 50%-Water Inj 50 Ml Syringe IV 08/25/24 18:16 Q15MIN PRN BG 50-70 responsive npo pt Dextrose 50 ml 07/26/24 18:17 Dextrose 50%-Water Inj 50 Ml Syringe IV 08/25/24 18:16 Q15MIN PRN BG <50 OR BG <70 & pt unresponsive Gentamicin Sulfate 0 drop 07/26/24 21:00 05/05/25 05:10 Gentamicin Op Eircka 0.3% 5 Ml Btl BOTH EYES 08/25/24 20:59 1 drop QID JAYMIE Administration Glucagon 1 mg 07/26/24 18:17 Glucagon Inj 1 Mg Vial IM Q15MIN PRN BG <70, and no IV access Piperacillin/Tazobactam/Dextrose 3.375 gm in 50 mls @ 12.5 mls/hr 07/27/24 06:00 07/29/24 05:10 Zosyn IV 08/03/24 05:59 12.5 mls/hr Q8HR JAYMIE Administration Insulin Human Lispro 0 unit 07/27/24 06:00 07/29/24 05:29 Insulin Lispro (Admelog) 1 Unit/0.01 Ml Unit SC 08/26/24 05:59 Not Given Q6HR JAYMIE Protocol Levetiracetam 1,000 mg 07/28/24 09:15 07/29/24 08:19 Levetiracetam Liqd 500 Mg/5 Ml Ud GT 08/27/24 09:14 1,000 mg BID JAYMIE Administration Lorazepam 0.5 mg 07/28/24 09:20 Lorazepam 0.5 Mg Tablet GT 08/02/24 09:19 Q6H PRN ANXIETY Magnesium Hydroxide 30 ml 07/28/24 09:11 Milk Of Magnesia Susp 30 Ml Ud GT 08/27/24 09:10 QDAY PRN CONSTIPATION Protocol Polyethylene Glycol 17 gm 07/28/24 09:11 Polyethylene Glycol 17 Gm Packet GT 08/27/24 09:10 QDAY PRN constipation Valproic Acid 500 mg 07/26/24 22:00 07/29/24 05:10 Valproic Acid Syrup 250 Mg/5 Ml Udc GT 08/25/24 21:59 500 mg TID JAYMIE Administration Vitamin D 1,000 iu 07/28/24 09:15 07/29/24 08:19 Cholecalciferol (Vitamin D3) 1,000 Iu Tablet GT 08/27/24 09:14 1,000 iu BID JAYMIE Administration Plan Guerita Ennis is a 69-year-old female coming from [facility] with past medical history significant for trach (on ventilator) and PEG, nonverbal, epilepsy, hypertension, hyperlipidemia, and diabetes mellitus who presented to the ED with altered mental status and admitted for further management of sepsis secondary to UTI versus ventilator associated pneumonia. #Sepsis secondary to #UTI #Ventilator associated pneumonia #History of tracheostomy Presented with altered mental status, unable to open her eyes and communicate with nonverbal cues. However, after sepsis bolus and antibiotics, patient slowly returned to her baseline. Presented with 4/4 SIRS criteria with endorgan damage, BP as low as 88/51. Imaging showed bilateral pneumonia and UA showed turbid urine, 1+ protein, 21 RBC, 254 WBC, rare bacteria, LE positive. Blood culture negative last 48 hours. Gram stain showed 4+ gram-negative rods and 3+ WBC ? Will transition to p.o. levofloxacin most recent urine culture sensitive ? Will discontinue IV Vanco and Zosyn ? Consulted infectious disease, appreciate recommendations, recommended to transition to levofloxacin ? Continue with airway suctioning as needed and tracheostomy maintenance with respiratory therapist ? Mechanical ventilator set at 7 setting with low FiO2 and PEEP ? DuoNebs every 2 as needed as needed ? Eyedrops as needed #History of PEG Unsure which tube feed patient uses ? Glucerna with goal rate of 50 mL/h ? Arash twice daily ? Started patient on sign scale insulin with hypoglycemic protocol #Diabetes mellitus-stable Last 2 A1c reported to be under 6.5 ? Continue with sliding scale insulin ? Hypoglycemic protocol if needed #History of seizures ? Resume patient's home Keppra and valproic acid via G-tube Health Maintenance: DVT prophylaxis: Heparin subcu Diet: Jevity via PEG Hobson: Recently changed in the ER, noted to have light pink-tinged urine, and cloudy Lines: PIV Supplemental O2: None CODE STATUS: DNR per chart Disposition: Patient admitted to med/tele for further management of sepsis secondary to UTI versus ventilator associated pneumonia pending cultures. Patient's plan and care discussed with my attending, Dr. Cain Parada MD PGY-2 Attending Provider Attestation/Addendum I reviewed labs, imaging, EKG, home medications and prior available records. Face to face evaluation was performed by me. I have personally examined the patient and discussed assessment and plan with the IM team. I reviewed the resident note and agree with the plan with exceptions as below. Brain injury Chronic encephalopathy Chronic hypoxic respiratory failure Status post tracheostomy and PEG tube insertion Sepsis Left lower lobe pneumonia Acute UTI Bilateral lower extremity swelling Consulted ID: Changed antibiotics to levofloxacin Follow-up blood, sputum, and urine cultures: Grew Pseudomonas that is sensitive to fluoroquinolones Trend WBC: Downtrending Continue Keppra and valproic acid Continue tube feeds and water flushes Time spent is 40 minutes. More than 50% of the time was spent on patient education and coordination of care.
--- NOTE | 2024-07-29 11:25 | ESCONSULT_ITS ---
<Statement entered by Pilo Gates MD - 08/02/24 07:33> pt seen with resident. all findings confirmed HPI Data of Consult Requesting Physician: Jarod Barlow MD Admitting Provider: Jarod Barlow MD Attending Provider: Jarod Barlow MD Primary Care Provider: Physician No Primary/Family Consult Narrative History of present illness: Patient is a 69-year-old nonverbal female with PMH of epilepsy, hypertension, hyperlipidemia, diabetes mellitus and status post trach/PEG who presented from subacute facility to the ED with AMS after patient found to have high-grade fever and leukocytosis. In ED patient met criteria for sepsis relatively low blood pressure, which was improved after IV hydration. Admitted to [facility] for further management, consulted to PA for antibiotic recommendations. cc:: cc: Jarod Barlow MD Exam Vital Signs Temp Pulse Resp BP Pulse Ox O2 Del Method FiO2 97.0 F 82 18 131/93 H 95 Trach Collar 30 07/29/24 08:00 07/29/24 08:00 07/29/24 08:00 07/29/24 08:00 07/29/24 08:00 07/29/24 08:00 07/29/24 10:00 Narrative Exam General Appearance: Pt in no apparent distress, laying comfortably in bed. Patient is trached and on ventilator, able to follow some commands HEENT: NC/AT, no scleral icterus, no conjunctival pallor, MMM Lungs: CTAB, no wheezes or crackles appreciated CVS: RRR, S1/S2 heard, no murmurs or rubs appreciated ABD: Soft, non-tender, non-distended, BS + in all 4 quadrants EXT: no deformity/edema/lesions/cyanosis/clubbing, radial pulses 2+ BL, DP pulses 2 + BL SKIN: Skin exam normal without any rashes. Neuro: Alert and awake. Unable to assess motor or sensory due to patient's chronic trach condition. Psych: Unable to assess Results Labs 07/29/24 05:29 07/29/24 05:29 Labs: Short CBC 07/29/24 Range/Units 05:29 WBC 18.3 H (3.6-11.0) Thou/mm3 Hgb 8.0 L (12.0-16.0) g/dL Hct 24.4 L (36.0-46.0) % Plt Count 306 D (140-440) Thou/mm3 BMP 07/29/24 05:29 Sodium 144 Potassium 3.8 Chloride 99 Carbon Dioxide 34.0 H BUN 12 Creatinine 0.7 Glucose 131 H Calcium 8.5 Liver Function 07/29/24 Range/Units 05:29 Total Bilirubin 0.2 L (0.3-1.2) mg/dL AST 19 (0-34) U/L ALT < 7 L (10-49) U/L Alkaline Phosphatase 62 (46-116) U/L Albumin 3.5 (3.4-4.8) gm/dL Quality Measures Quality Measures sepsis Current suspected stage: sepsis Possible source: pulmonary Blood cultures ordered: completed in ED Antibiotic ordered: Yes Advance care planning discussed with:: other Medications Home Medications and Allergies Home Medications ?Medication ?Instructions ?Recorded ?Confirmed ?Type acetaminophen 325 mg capsule 650 mg PO QID PRN pain 07/27/24 History acetylcysteine 100 mg/mL (10 %) 3 ml inhalation Q6H 07/27/24 History solution buspirone 5 mg tablet 10 mg G-tube BID Agitation 0 07/27/24 07/27/24 History gentamicin 0.3 % eye drops 1 drp Both eyes QID infecti on 07/27/24 07/27/24 History insulin lispro 100 unit/mL 1 sliding scale dose subcut 07/27/24 07/27/24 History subcutaneous solution (Humalog USEASDIRECTD U-100 Insulin) Allergies Allergy/AdvReac Type Severity Reaction Status Date / Time codeine Allergy Verified 06/24/24 19:33 Visit Medications Acetaminophen (Acetaminophen Ericka 325 Mg/10 Ml Udc) 650 mg GT Q6H PRN PRN Reason: Fever >100.4 or Pain 1-3 Stop: 08/27/24 09:00 Albuterol/Ipratropium (Albuterol/Ipratropium (Duoneb) Rt Ericka 3 Ml Nebu) 3 ml INH Q2HR PRN PRN Reason: SHORTNESS OF BREATH OR WHEEZE Stop: 08/25/24 18:16 Artificial Tears (Artificial Tears 225 Drop/15 Ml Btl) 0 drop BOTH EYES Q8H JAYMIE Stop: 08/25/24 18:29 Last Admin: 07/29/24 02:04 Dose: 2 drops Bisacodyl (Bisacodyl 10 Mg Supp) 10 mg MT QDAY PRN; Protocol PRN Reason: CONSTIPATION Stop: 08/25/24 18:16 Buspirone HCl (Buspirone Hcl 5 Mg Tablet) 10 mg GT BID [facility] Stop: 08/27/24 09:14 Last Admin: 07/29/24 08:19 Dose: 10 mg Dextrose (Dextrose 50%-Water Inj 50 Ml Syringe) 25 ml IV Q15MIN PRN PRN Reason: BG 50-70 responsive npo pt Stop: 08/25/24 18:16 Dextrose (Dextrose 50%-Water Inj 50 Ml Syringe) 50 ml IV Q15MIN PRN PRN Reason: BG <50 OR BG <70 & pt unresponsive Stop: 08/25/24 18:16 Gentamicin Sulfate (Gentamicin Op Ericka 0.3% 5 Ml Btl) 0 drop BOTH EYES QID JAYMIE Stop: 08/25/24 20:59 Last Admin: 07/29/24 05:10 Dose: 1 drop Glucagon (Glucagon Inj 1 Mg Vial) 1 mg IM Q15MIN PRN PRN Reason: BG <70, and no IV access Insulin Human Lispro (Insulin Lispro (Admelog) 1 Unit/0.01 Ml Unit) 0 unit SC Q6HR JAYMIE; Protocol Stop: 08/26/24 05:59 Last Admin: 07/29/24 05:29 Dose: Not Given Levetiracetam (Levetiracetam Liqd 500 Mg/5 Ml Udc) 1,000 mg GT BID [facility] Stop: 08/27/24 09:14 Last Admin: 07/29/24 08:19 Dose: 1,000 mg Levofloxacin (Levofloxacin 250 Mg Tablet) 750 mg PO QDAY [facility] Stop: 08/05/24 11:14 Lorazepam (Lorazepam 0.5 Mg Tablet) 0.5 mg GT Q6H PRN PRN Reason: ANXIETY Stop: 08/02/24 09:19 Magnesium Hydroxide (Milk Of Magnesia Susp 30 Ml Udc) 30 ml GT QDAY PRN; Protocol PRN Reason: CONSTIPATION Stop: 08/27/24 09:10 Polyethylene Glycol (Polyethylene Glycol 17 Gm Packet) 17 gm GT QDAY PRN PRN Reason: constipation Stop: 08/27/24 09:10 Valproic Acid (Valproic Acid Syrup 250 Mg/5 Ml Udc) 500 mg GT TID JAYMIE Stop: 08/25/24 21:59 Last Admin: 07/29/24 05:10 Dose: 500 mg Vitamin D (Cholecalciferol (Vitamin D3) 1,000 Iu Tablet) 1,000 iu GT BID JAYMIE Stop: 08/27/24 09:14 Last Admin: 07/29/24 08:19 Dose: 1,000 iu Discontinued Medications Acetaminophen (Acetaminophen 325 Mg Tablet) 650 mg PO Q6H PRN PRN Reason: Fever >100.4 or Pain 1-3 Stop: 08/25/24 18:04 Last Admin: 07/26/24 22:18 Dose: 650 mg Buspirone HCl (Buspirone Hcl 5 Mg Tablet) 10 mg PO BID JAYMIE Stop: 08/25/24 20:59 Last Admin: 07/27/24 22:23 Dose: 10 mg Buspirone HCl (Buspirone Hcl 5 Mg Tablet) 10 mg GT BID JAYMIE Stop: 08/25/24 20:59 Heparin Sodium (Porcine) (Heparin Sod Inj 5000 Unit/Ml Vial) 5,000 unit SC Q12HR JAYMIE Stop: 08/09/24 20:59 Last Admin: 07/26/24 21:40 Dose: 5,000 unit Sodium Chloride (Ns) 1,710 mls @ 1,710 mls/hr 30 ml/kg infuse over 60 min (1710 ml) IV .Q1H ONE Stop: 07/26/24 10:58 Last Infusion: 07/26/24 11:44 Dose: Infused Norepinephrine/Dextrose (Levophed In D5w 8mg/250ml) 8 mg in 250 mls @ 7.867 mls/hr IV .Q24H PRN; Protocol PRN Reason: PER PROTOCOL Stop: 08/25/24 09:58 Piperacillin/Tazobactam/Dextrose (Zosyn) 3.375 gm in 50 mls @ 100 mls/hr IV X1 ONE Stop: 07/26/24 10:28 Last Infusion: 07/26/24 11:30 Dose: Infused Vancomycin HCl 1,500 mg/ (Sodium Chloride) 500 mls @ 200 mls/hr IV X1 ONE Stop: 07/26/24 12:44 Last Infusion: 07/26/24 15:14 Dose: Infused Vancomycin/Sodium Chloride (Vancomycin/Ns 1 Gm Ivpb) 200 mls @ 120 mls/hr IV X1 ONE Stop: 07/26/24 23:39 Last Infusion: 07/27/24 01:54 Dose: Infused Piperacillin/Tazobactam/Dextrose (Zosyn) 3.375 gm in 50 mls @ 12.5 mls/hr IV Q8HR JAYMIE Stop: 08/03/24 05:59 Last Admin: 07/29/24 05:10 Dose: 12.5 mls/hr Piperacillin/Tazobactam/Dextrose (Zosyn) 3.375 gm in 50 mls @ 100 mls/hr IV X1 ONE Stop: 07/26/24 18:44 Last Infusion: 07/26/24 19:39 Dose: Infused Vancomycin/Sodium Chloride (Vancomycin/Ns 1 Gm Ivpb) 200 mls @ 120 mls/hr IV BID@1000,2200 JAYMIE; Protocol Stop: 08/03/24 09:59 Last Admin: 07/27/24 23:11 Dose: 120 mls/hr Vancomycin HCl/Dextrose (Vancomycin/D5w 1,250 Mg Ivpb) 250 mls @ 120 mls/hr IV BID@1000,2200 JAYMIE; Protocol Stop: 08/04/24 09:59 Last Admin: 07/29/24 10:25 Dose: Not Given Insulin Human Lispro (Insulin Lispro (Admelog) 1 Unit/0.01 Ml Unit) 0 unit SC AC [facility]; Protocol Stop: 08/26/24 07:29 Levetiracetam (Levetiracetam Liqd 500 Mg/5 Ml Udc) 1,000 mg GT BID JAYMIE Stop: 08/25/24 20:59 Last Admin: 07/27/24 22:23 Dose: 1,000 mg Magnesium Hydroxide (Milk Of Magnesia Susp 30 Ml Udc) 30 ml PO QDAY PRN; Protocol PRN Reason: CONSTIPATION Stop: 08/25/24 18:21 Magnesium Hydroxide (Milk Of Magnesia Susp 30 Ml Udc) 30 ml GT QDAY PRN; Protocol PRN Reason: CONSTIPATION Stop: 08/25/24 18:21 Pharmacy Consult (Vancomycin Pharmacy To Dose 1 Each Each) 1 each IV QDAY PRN PRN Reason: CONSULT Stop: 08/25/24 10:14 Polyethylene Glycol (Polyethylene Glycol 17 Gm Packet) 17 gm PO QDAY PRN PRN Reason: constipation Stop: 08/25/24 18:29 Polyethylene Glycol (Polyethylene Glycol 17 Gm Packet) 17 gm GT QDAY PRN PRN Reason: constipation Stop: 08/25/24 18:29 Sodium Chloride (Sodium Chloride Rt 10% 15 Ml Nebu) 5 ml INH X1 ONE Stop: 07/27/24 10:13 Last Admin: 07/27/24 12:15 Dose: Not Given Vitamin D (Cholecalciferol (Vitamin D3) 1,000 Iu Tablet) 1,000 iu PO BID JAYMIE Stop: 08/25/24 20:59 Last Admin: 07/27/24 22:22 Dose: 1,000 iu Vitamin D (Cholecalciferol (Vitamin D3) 1,000 Iu Tablet) 1,000 iu GT BID JAYMIE Stop: 08/25/24 20:59 Assessment & Plan Plan Patient is a 69-year-old nonverbal female with PMH of epilepsy, hypertension, hyperlipidemia, diabetes mellitus and status post trach/PEG who presented from subacute facility to the ED with AMS after patient found to have high-grade fever and leukocytosis. In ED patient met criteria for sepsis relatively low blood pressure, which was improved after IV hydration. Admitted to [facility] for further management, consulted to ID for antibiotic recommendations. #Sepsis secondary to #UTI #Ventilator associated pneumonia #History of tracheostomy Patient presented to ED from subacute facility due to concern for sepsis, met SIRS criteria with soft blood pressure, which was improved after IV hydration Imaging showed bilateral pneumonia UA was positive for UTI Blood culture negative last 48 hours. Sputum cultures are positive for Gram stain showed 4+ gram-negative rods and 3+ WBC ? Patient initially started on Vanco and Zosyn ? Improved objectively and subjectively, with no fever within last 24 hours, white blood cells are downtrending ? Urine cultures are positive for Pseudomonas sensitive to levofloxacin ? Will discontinue IV Vanco and Zosyn and will start p.o. levofloxacin based on most recent urine culture sensitive ? Managed symptomatically Active and chronic medical problems #History of PEG #Diabetes mellitus-stable #History of seizures ?Managed by primary team I, Salvador Mchugh MD PGY3 reviewed and discussed the case with attending physician Dr. Gates
[2024-07-29] MEDS: LEVOFLOXACIN 250 MG TABLET 750 MG PO (12:45)
--- NOTE | 2024-07-29 14:32 | PC.SS ---
SS follow up note; SS was informed during rounding that Patient could discharge back to Subacute. SS contacted Beatriz from Subacute and she forward the call to [facility] at [phone]. She informed SS patient is able to discharge back today. SS contacted patient's nurse, however nurse Desiree answered and informed SS she would relay the message to patient's nurse Nory. SS also contacted patient's sister, Suzie and she verbalized understanding.
--- NOTE | 2024-07-29 16:10 | PC.NURSE ---
Report given to Lay MEJIA in subacute pt transferred to subacute
--- NOTE | 2024-07-31 07:26 | ESCONSULT_ITS ---
RE: YOANDY SANDOVAL : 1955 DATE OF CONSULTATION: 07/29/2024 REFERRING PHYSICIAN: Jarod Barlow MD REASON FOR CONSULTATION: worsening pyuria. HISTORY OF PRESENT ILLNESS: The patient was febrile and ill. A urine showed increase in white cells from 200 and some. She notes no symptoms. She is a poor historian now at best, so history is obtained mostly in the record. Past history is unchanged from prior records. SOCIAL HISTORY: Similar. She lives at a long-term care facility. PHYSICAL EXAMINATION: Benign. non-focal ASSESSMENT: Bacteriuria without bacteremia, afebrile. I am not that worried about the chronic changes as her problems are not acute. She had a prior stay a couple of months ago. UTI. RECOMMENDATIONS: I recommended we give her Zosyn for now. We are able to switch her to something po later when the data allow us to do so. That may be a reasonable option. DT: 11:18:15 TT: 11:53:00 Ref: [id number] - TID: [id number] MTD
== END 2024-07-29 15:50 | disposition skilled nursing facility (03) | DRG 871 ==
LOC: SERX 17:28 → SERHOLD 18:23 → S2NX 23:29 → S3NX 07-28 01:00
PROVIDERS: Student in an Organized Health Care Education/Training Program; Admitting Provider Student in an Organized Health Care Education/Training Program; Emergency Provider Emergency Medicine; Visit Provider Student in an Organized Health Care Education/Training Program
DX: A41.52 Sepsis due to Pseudomonas (principal); G93.41 Metabolic encephalopathy; N39.0 Urinary tract infection, site not specified; J95.851 Ventilator associated pneumonia; J96.11 Chronic respiratory failure with hypoxia; Z99.11 Dependence on respirator [ventilator] status; E11.9 Type 2 diabetes mellitus without complications; I10 Essential (primary) hypertension; G40.909 Epilepsy, unspecified, not intractable, without status epilepticus; E78.5 Hyperlipidemia, unspecified; D64.9 Anemia, unspecified; K80.20 Calculus of gallbladder without cholecystitis without obstruction; Y84.8 Other medical procedures as the cause of abnormal reaction of the patient, or of later complication, without mention of misadventure at the time of the procedure; Z93.0 Tracheostomy status; Z93.1 Gastrostomy status; Z66 Do not resuscitate; Z79.4 Long term (current) use of insulin; Z79.899 Other long term (current) drug therapy; Z22.322 Carrier or suspected carrier of Methicillin resistant Staphylococcus aureus
CPT/HCPCS: 36415; 71045; 71260; 74177; 80053; 80202; 81001; 83605; 83615; 83690; 83735; 83880; 84100; 84145; 84484; 85025; 85610; 85730; 87040; 87077; 87081; 87086; 87186; 87205; 87811; 93005; 93225; 94002; 94003; 96365; 96366; 96367; 96372; 99291; A4649; J1644; J1815; J2543; J3370; J7030; J7040; Q9967; A9270

== ENCOUNTER 2024-09-12 12:03 | Inpatient (IN) | payer MEDICARE, MEDICAID, SELFPAY ==
[2024-09-12] VITALS (19 sets, daily range): BP systolic 103–177; BP diastolic 63–104; PULSE 85–125; RESP 17–40; TEMP 37.1–40.5; O2SAT 92–98; BMI 36.9
--- NOTE | 2024-09-12 12:10 | PC.NURSE ---
PT HAD BM UPON ARRIVAL; PT WAS GIVEN PERINEAL CARE WITH WARM BATH CLOTHS. PT PLACED IN NEW CLEAN CHUCKS AND PLACED IN GOWN.
--- NOTE | 2024-09-12 12:41 | EKG_ITS ---
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
--- NOTE | 2024-09-12 12:41 | XR_ITS ---
Examination: AP chest single view Technique one AP portable upright chest single view Date and time: September 12, 2024 1341 hours INDICATIONS: Sepsis alert FINDINGS: Normal heart size No lobar pneumonia Tracheostomy tube tip 4 cm above michael IMPRESSION: No lobar pneumonia
--- NOTE | 2024-09-12 12:43 | EDNOTE_ITS ---
ED Fever RME/HPI General Chief Complaint: Fever Stated Complaint: TRANSFER FROM SUBACUTE Time Seen by Provider: 09/12/24 12:13 Arrival date/time: 09/12/24 12:03 RME / HPI RME / HPI Narrative: 69-year-old female patient with significant history of chronic debility, chronic anoxic encephalopathy, seizure disorder hypertension, ventilator dependent, chronic respiratory failure, tracheostomy dependent, came in for evaluation from subacute hospital regarding fever. Onset of symptoms since yesterday as fever, severity moderate. Here patient's fever was noted to be 103. Patient was noted to be having chills also. Sepsis alert was initiated right away Related Data Home Medications ?Medication ?Instructions ?Recorded ?Confirmed acetaminophen 325 mg tablet 650 mg G-tube Q6HR PRN Ric n Scale 08/05/24 08/05/24 1-3 (Mild artificial 2 drp Both eyes Q8HR 5 08/05/24 tears(fvbfawi-[id number]) 0.1 %-0.3 %-0.2 % eye drops (GenTeal Tears Moderate) aspirin 81 mg chewable tablet 81 mg G-tube QDAY 08/05/24 atorvastatin 20 mg tablet 40 mg G-tube HS 08/05/2403/20 bisacodyl 10 mg rectal suppository 10 mg OH PRN PRN No BM Per Bowel 08/05/24 08/05/24 (Dulcolax (bisacodyl)) Management Protocol cholecalciferol (vitamin D3) 25 25 mcg G-tube BID 07/2508/05/24 mcg (1,000 unit) tablet glucagon 1 mg/0.2 mL subcutaneous 1 mg IM Q15MIN PRN H ypoglycemia 08/05/24 08/05/24 solution (Gvoke) guaifenesin 100 mg/5 mL oral 300 mg G-tube Q6HR PRN Co ugh 08/05/24 08/05/24 liquid (Taylor-Tussin) insulin lispro 100 unit/mL See Rx Instructions SCi , 18 08/05/24 08/05/24 subcutaneous pen ipratropium 0.5 mg-albuterol 3 mg 3 ml INH Q2HR PRN Wh eezing 08/05/24 08/05/24 (2.5 mg base)/3 mL nebulization soln levetiracetam 100 mg/mL oral 1,000 mg G-tube BID 08/0508/05/24 solution magnesium hydroxide 400 mg/5 mL 30 ml G-tube PRN PRN C onstipation 08/05/24 oral suspension (Milk of Magnesia) polyethylene glycol 3350 17 gram 17 g G-tube PRN PRN N o BM Per 08/05/24 08/05/24 oral powder packet Bowel Management Protocol sodium phosphates 19 gram-7 133 ml OH PRN PRN No BM Pe r Bowel 08/05/24 08/05/24 gram/118 mL enema (Fleet Enema) Management Protocol Previous Rx's ?Medication ?Instructions ?Recorded enoxaparin 40 mg/0.4 mL 40 mg (0.4 mL) SCi QDAY 92 d ays 08/21/24 subcutaneous syringe #37.2 mL buspirone 10 mg tablet 10 mg G-tube BID 365 days #9 5 tabs 08/22/24 valproic acid (as sodium salt) 250 500 mg (10 mL) G-tu be TID 30 days 09/11/24 mg/5 mL oral solution #300 mL acetaminophen 325 mg tablet 650 mg (2 x 325 mg) G-tube Q4HR 09/12/24 PRN FEVER > 101 7 days Allergies Allergy/AdvReac Type Severity Reaction Status Date / Time codeine Allergy Verified 06/24/24 19:33 Review of Systems Review of Systems Narrative Review of Systems: Review of system reviewed and within normal limits except mentioned in HPI Physical Exam Narrative Physical exam: VITAL SIGNS: Reviewed. GENERAL APPEARANCE: Awake, nonverbal HEAD AND FACE: Non-traumatic. ENT: PERRL, pink conjunctivitis, eyelid no trauma, trach intact NECK: Supple, nontender, no nuchal rigidity. CHEST: No tenderness, no crepitus, no paradoxical movement, no retractions. LUNGS: Clear, well ventilated, symmetric, no rales, no wheezing, no ronchi, no stridor, good breath sounds bilaterally. HEART: Regular rate, regular rhythm, no murmur, no gallops. ABDOMEN: Soft, positive bowel sounds, nondistended, no guarding, PEG tube intact, no masses, RECTAL: Deferred. GENITAL: Deferred. EXTREMITIES: +Minimal bilateral upper and lower extremity movement, atrophied and contracted SKIN: Color pink, dry, no rash, no lacerations, no abrasions, no contusions. LYMPHATICS: Deferred. Course Quality Measures none Orders Category Date Time Status Bedside COVID-19 Antigen Test NOW Care 09/12/24 12:42 Active Bedside Influenza A&B Antigen Test NOW Care 09/12/24 12:42 Completed Real Estate Asset Manager STAT Care 09/12/24 12:41 Active Continuous Pulse Oximetry STAT Care 09/12/24 12:41 Completed EKG (ED ONLY) *Do not use* NOW Care 09/12/24 12:41 Completed In and Out Catheter X1PRN Care 09/12/24 12:41 Active Insert IV NOW Care 09/12/24 12:41 Active NPO STAT Care 09/12/24 12:41 Active Strict Intake and Output Routine Care 09/12/24 12:41 Ordered EKG (ED Only) Stat Exams 09/12/24 12:41 Draft XR chest 1V SEPSIS PROTOCOL Stat Exams 09/12/24 12:41 Completed B-Type Natriuretic Peptide Stat Lab 09/12/24 13:12 Completed Blood Culture (Lab) Stat Lab 09/12/24 13:00 Received CBC Stat Lab 09/12/24 12:40 Completed Comprehensive Metabolic Panel Stat Lab 09/12/24 13:12 Completed LDH (Lactate Dehydrogenase) Stat Lab 09/12/24 13:12 Completed Lactate (Lactic Acid) Stat Lab 09/12/24 12:40 Results Lipase Stat Lab 09/12/24 13:12 Completed Magnesium Stat Lab 09/12/24 13:12 Completed Partial Thromboplastin Time Stat Lab 09/12/24 13:12 Completed Phosphorous Stat Lab 09/12/24 13:12 Completed Procalcitonin Stat Lab 09/12/24 13:12 Completed Prothrombin Time with INR Stat Lab 09/12/24 13:12 Completed Troponin I Stat Lab 09/12/24 13:12 Completed Urinalysis Stat Lab 09/12/24 13:48 Completed Urine Culture Stat Lab 09/12/24 13:48 Received Acetaminophen Ivpb [Ofirmev Inj] Med 09/12/24 12:42 Discontinued 1,000 mg in 100 ml IV X1 Piper/Tazo 3.375 gm Premix [Zosyn] Med 09/12/24 12:42 Discontinued 3.375 gm in 50 ml IV X1 Sodium Chloride 0.9% 1000 ml [Ns] 1,000 ml Med 09/12/24 12:41 Discontinued IV 999 mls/hr Oxygen Delivery NOW RT 09/12/24 12:41 Active Tracheostomy Tube Management NEEDED RT 09/12/24 15:05 Active Volume Ventilator Routine RT 09/12/24 15:04 Active Vital Signs Vital signs: Vital Signs Pulse Rate 111 H 09/12/24 12:10 Fever [facility] Narrative [facility] Narrative:: 69-year-old female patient with significant history of chronic debility, chronic anoxic encephalopathy, seizure disorder hypertension, ventilator dependent, chronic respiratory failure, tracheostomy dependent, came in for evaluation from [facility] regarding fever. Onset of symptoms since yesterday as fever, severity moderate. Here patient's fever was noted to be 103. Patient was noted to be having chills also. Sepsis alert was initiated right away EKG as interpreted by me showed sinus rhythm, ventricular rate 96 bpm, OH intervals 120 MS, no ST segment elevation depression noted. Patient CBC significant for 26.7 leukocytosis, neutrophil 20.8 urinalysis positive for UTI chest x-ray no pneumonia noted. Patient received IV fluids, IV Tylenol, IV Zosyn. Spoke with bull Mac MD and told me that patient needs to be admitted for close monitoring and IV antibiotic. Spoke with hospitalist, who admitted the patient. Patient data External records reviewed:: [facility] previous records Clinical information provided by:: none (Patient's nurse,) Social determinants that could affect healthcare access:: none Patient has the following chronic illnesses:: Chronic debility chronic hypoxic/anoxic encephalopathy seizure disorder, hypertension ventilator dependent chronic respiratory failure tracheostomy dependent, nonverbal How is presenting disease/condition affected by chronic disease/condition?: exacerbated by Evaluation data The following diagnostics were reviewed and interpreted by me:: lab results, radiology exam(s) and EKG tracing(s) Lab and/or radiology exams considered but not ordered:: None Interpretation Summary: See results [facility] Medications / Prescriptions Medications or Prescriptions considered but not ordered:: None Medication administrations:: Medication Administration History Discontinued Medications Sodium Chloride (Ns) 1,000 mls @ 999 mls/hr IV .Q1H1M ONE Stop: 09/12/24 13:41 Last Infusion: 09/12/24 15:23 Dose: Infused Documented By: Admin: 09/12/24 13:28 Dose: 999 mls/hr Documented By: JO ANN Acetaminophen (Ofirmev Inj) 1,000 mg in 100 mls @ 250 mls/hr IV X1 ONE Stop: 09/12/24 13:05 Last Infusion: 09/12/24 13:54 Dose: Infused Documented By: Admin: 09/12/24 13:30 Dose: 250 mls/hr Documented By: GM Piperacillin/Tazobactam/Dextrose (Zosyn) 3.375 gm in 50 mls @ 100 mls/hr IV X1 ONE Stop: 09/12/24 13:11 Last Infusion: 09/12/24 15:23 Dose: Infused Documented By: Admin: 09/12/24 13:56 Dose: 100 mls/hr Documented By: JO ANN IV Tylenol and IV fluids, Zosyn Consultations Consultation(s) initiated? (list below): No Diagnosis Fever Differential Diagnosis: viral infection, sepsis and other ( uti) Most likely diagnosis given after review of the tests above:: Sepsis secondary to UTI Admission Indicated Admission indicated?: not indicated Admission Request Was there a request for admission?: No Disposition Plan Disposition Plan: Admit Discharge Plan Plan Patient Disposition: Admit Acute Care w/in Hospital Prescriptions/Referrals Prescriptions/Med Rec: No Action acetaminophen 325 mg Tablet 650 mg G-tube Q6HR PRN (Reason: Pain Scale 1-3 (Mild) Rx Instructions: Do not exceed 3gm a day from any source in 24 hours. atorvastatin 20 mg Tablet 40 mg G-tube HS Label Comments: For Hyperlipidemia ipratropium-albuterol 0.5 mg-3 mg(2.5 mg base)/3 mL Solution For Nebulization 3 ml INH Q2HR PRN (Reason: Wheezing) polyethylene glycol 3350 17 gram Powder In Packet 17 g G-tube PRN PRN (Reason: No BM Per Bowel Management Protocol) Label Comments: Administer as needed if 2nd round bowel protocol ineffective. Rx Instructions: Mix with 4oz of water before giving. Hold tube feeding for 30 minutes after administration. Notify provider if no results from Miralax. guaifenesin [Taylor-Tussin] 100 mg/5 mL Liquid 300 mg G-tube Q6HR PRN (Reason: Cough) Rx Instructions: Conc: 100MG/5ML- give 300mg/15ml magnesium hydroxide [Milk of Magnesia] 400 mg/5 mL Suspension 30 ml G-tube PRN PRN (Reason: Constipation) Rx Instructions: CONC: 400MG/5ML bisacodyl [Dulcolax (bisacodyl)] 10 mg Suppository 10 mg OH PRN PRN (Reason: No BM Per Bowel Management Protocol) Rx Instructions: Administer as needed on 6th shift, if MOM ineffective. Fleet Enema 19-7 gram/118 mL Enema 133 ml OH PRN PRN (Reason: No BM Per Bowel Management Protocol) Label Comments: If Dulcolax is ineffective on 3rd day / 7th shift, give Fleets enema per Bowel Management Protocol. Notify MD if no results from Enema. aspirin 81 mg Tablet,Chewable 81 mg G-tube QDAY Label Comments: For DVT prevention Rx Instructions: Give one tab daily PGT for DVT prevention insulin lispro 100 unit/mL Insulin Pen See Rx Instructions SCi Label Comments: For DM 2 Rx Instructions: Per Sliding Scale Lispro Insulin Sliding Scale coverage : 0-150= 0 units, 151-200= 2 units, 201-250= 4 units, 251-300= 6 units, 301-350= 8 units, 351-400= 10 units, > 400= 12 units and call MD. artificial tear([id number]) [GenTeal Tears Moderate] 0.1-0.3-0.2 % Drops 2 drp Both eyes Q8HR Rx Instructions: FOR DRYNESS levetiracetam 100 mg/mL Solution 1,000 mg G-tube BID Rx Instructions: give [id number] for seizures cholecalciferol (vitamin D3) 25 mcg (1,000 unit) Tablet 25 mcg G-tube BID Label Comments: Supplement Gvoke 1 mg/0.2 mL Solution 1 mg IM Q15MIN PRN (Reason: Hypoglycemia) Label Comments: for BG <70 and no IV access enoxaparin 40 mg/0.4 mL syringe 40 mg SCi QDAY 92 Days Qty: 37.2 0RF Label Comments: for DVT prevention x 3 months buspirone 10 mg tablet 10 mg G-tube BID 94 Days Qty: 95 0RF Label Comments: For anxiety as manifested by rejection of care Rx Instructions: Continue Buspirone 10mg BID x30 days then re-evaluate with MD. valproic acid (as sodium salt) 250 mg/5 mL solution 500 mg G-tube TID 30 Days Qty: 300 0RF Label Comments: for seizures Rx Instructions: Valproic acid 250/5ml chelsey. Give 500mg (10ml) PGT for seizures acetaminophen 325 mg tablet 650 mg G-tube Q4HR PRN (Reason: FEVER > 101) 7 Days 0RF Label Comments: Do not exceed 3gm of Tylenol in 24Hr. from all sources x7 days re-eval Rx Instructions: 650mg Q4H PGT as needed for fever Referrals: Lalo Silverio MD [Primary Care Provider] - In 1 week Problem List Clinical Impression: Sepsis, PEG (percutaneous endoscopic gastrostomy) status, Ventilator dependent, Urinary tract infection, Tracheostomy dependence Patient/Caregiver Discharge Instructions Print Language: Austrian Stand Alone Forms: Johana Award Info., Patient Portal Info Letter
[2024-09-12 12:53] LABS: Lactate (Lactic Acid) 3.5 mMol/L (0.4-2.0)
[2024-09-12 12:58] LABS: Basophils # (Auto) 0.1 Thou/mm3 (0.0-0.2); Basophils % (Auto) 0 % (0-2.5); Eosinophils % (Auto) 0 % (0-10); Hematocrit 23.3 % (36.0-46.0); Immature Granulocytes % (Auto) 4 % (0-0); Immature Granulocytes Auto 0.93 Thou/mm3 (0.00-0.00); Lymphocytes # (Auto) 1.1 Thou/mm3 (1.0-4.8); Lymphocytes % (Auto) 4 % (10-50); Mean Corpuscular HGB Conc 32.6 g/dl (31.0-37.0); Mean Corpuscular Hemoglobin 29.6 pg (25.0-35.0); Mean Corpuscular Volume 91 fL (80-100); Monocytes # (Auto) 3.7 Thou/mm3 (0.0-0.8); Monocytes % (Auto) 14 % (0-12); Neutrophils # (Auto) 20.8 Thou/mm3 (1.8-7.7); Neutrophils % (Auto) 78 % (37-80); Nucleated Red Blood Cell # 0.07 Thou/mm3 (0.00-0.00); Nucleated Red Blood Cell % 0 /100 WBC (0); Platelet Count 394 Thou/mm3 (140-440); RDW Standard Deviation 57.7 fL (36.4-46.3); Red Blood Count 2.57 Miln/mm3 (4.00-5.20); White Blood Count 26.7 Thou/mm3 (3.6-11.0)
[2024-09-12 13:24] LABS: Hemoglobin 7.6 g/dL (12.0-16.0)
[2024-09-12] MEDS: SODIUM CHLORIDE 0.9% 1000 ML 1,000 ML 999 ML IV ×2 (13:28→18:53)
[2024-09-12] MEDS: ACETAMINOPHEN IVPB 1,000 MG/100 ML VIAL 250 MG IV (13:30)
[2024-09-12 13:38] LABS: INR 1.2 (0.9-1.3); Partial Thromboplastin Time 29.6 Seconds (22.0-36.0); Prothrombin Time 12.9 Seconds (9.0-12.2)
[2024-09-12 13:53] LABS: Collection Type, Urine Clean Catch; Squamous Epithelial Cell,Urine 0 /hpf (0-5)
[2024-09-12 13:56] LABS: Alanine Aminotransferase 9 U/L (10-49); Albumin, Serum 3.6 gm/dL (3.4-4.8); Albumin/Globulin Ratio 1.2 (1.2-2.2); Alkaline Phosphatase 73 U/L (46-116); Anion Gap 9 (7-16); Aspartate Amino Transferase 19 U/L (0-34); BUN/Creatinine Ratio 31 Ratio (12-20); Bilirubin,Total 0.2 mg/dL (0.3-1.2); Blood Urea Nitrogen 22 mg/dL (9-23); Calcium 8.8 mg/dL (8.3-10.6); Calcium (Corrected) 9.1 mg/dL (8.5-10.1); Carbon Dioxide 28.3 mMol/L (20.0-31.0); Chloride 100 mMol/L (98-107); Creatinine (Component) 0.7 mg/dL (0.6-1.3); Estimated Creatinine Clearance 75.7 mL/min (>60); Glucose 168 mg/dL (74-106); Lipase 35 U/L (12-53); Magnesium 2.1 mg/dL (1.6-2.6); Osmolality,Calculated 281 (275-295); Phosphorous 3.2 mg/dL (2.4-5.1); Potassium 3.9 mMol/L (3.4-5.1); Procalcitonin 0.97 ng/ml (0.0-0.49); Sodium 137 mMol/L (136-145); Total Protein 6.6 gm/dL (5.7-8.2); Troponin I < 0.020 ng/mL (0.0-0.045); eGFR > 60 See Note
[2024-09-12] MEDS: PIPER/TAZO 3.375 GM PREMIX 3.375 GM/50 ML BAG IV ×2 (13:56→21:49)
[2024-09-12 14:07] LABS: Bacteria,Urine 1+; Bilirubin,Urine Negative (Negative); Blood,Urine 3+ (Negative); Clarity,Urine Turbid (Clear/Hazy); Color,Urine Yellow (Lt Yel-Yel); Glucose, Urine Negative (Negative); Ketones,Urine Negative (Negative); Leukocyte Esterase,Urine Positive (Negative); Nitrite,Urine Negative (Negative); Protein,Urine 2+ (Neg - Trace); RBC,Urine 390 /hpf (0-3); Renal Epithelial Cells,Urine 2 /hpf (0-5); Specific Gravity,Urine 1.022 (1.001-1.035); Urobilinogen,Urine Negative mg/dL (0.0-1.0); WBC,Urine 326 /hpf (0-5)
[2024-09-12 14:08] LABS: LDH (Lactate Dehydrogenase) 179 U/L (120-246)
[2024-09-12 14:43] LABS: B-Type Natriuretic Peptide 113 pg/mL (0-100)
[2024-09-12 15:50] LABS: Reflex Lactate? Y
--- NOTE | 2024-09-12 16:00 | PC.NURSE ---
PT HAD ANOTHER BM AT THIS TIME; PT GIVEN PERINEAL CARE WITH WARM BATH CLOTHS; LINEN CHANGE PERFORMED AND PT PLACED IN NEW CLEAN CHUCKS UNDER PT.
--- NOTE | 2024-09-12 16:35 | PD.RESHP ---
Documentation for date of: 09/12/24 HPI History of Present Illness Chief complaint: from subacute for fever History of present illness: Patient is a 69-year-old female with past medical history significant for nonverbal, trach/PEG, epilepsy, hypertension, hyperlipidemia, and diabetes mellitus who presented to the ED on 09/12/24 due to fever. Patient was brought from her subacute facility in the hospital after found to have a high-grade fever Here patient's fever was noted to be103. Noted to be having chills also and leukocytosis. Information obtained from chart review. At bedside patient's eyes were open and moving simultaneously. Was not able to respond to any yes or no questions. In the ED, initial BP 170/71, tachycardia 111, tachypneic 30, fever 103.5. Leukocytosis 26, hemoglobin 7.6, tropes negative, elevated lactic acid 3.5, Pro-Man elevated 0.97. UA positive for UTI with leukocyte esterase WBC 326. She was given Zosyn times one 1 L bolus NS in the ED with Tylenol. Patient to be admitted for possible Pseudomonas UTI and started on IV antibiotics. Past medical history: As mentioned above Past surgical history: Unknown Family history: Unknown Meds: med rec completed, refer to chart Allergies: Codeine Social history: Unknown if patient was ever smoker or drink alcohol. Review of Systems Review of Systems Systems Reviewed: All systems reviewed, normal except as documented Exam Vital Signs Temp Pulse Resp BP Pulse Ox O2 Del Method FiO2 101.1 F H 117 H 17 103/74 97 Trach Collar 30 09/12/24 16:04 09/12/24 16:04 09/12/24 16:04 09/12/24 16:04 09/12/24 16:04 09/12/24 16:04 09/12/24 15:06 Narrative Exam General: Elderly female, No acute distress, eyes open HEENT: NCAT, No JVD noted. Mucosa dry. Pupils are equal and reactive to light bilaterally, tracheostomy in place Cardiovascular: Normal S1 and S2. Regular rate and rhythm. Respiratory: Lungs are clear to auscultation bilaterally. No wheezing or crackles heard. Abdomen: Soft, nontender, not distended, normal bowel sounds. PEG tube in place Skin: Warm to touch, dry, no rashes noted Musculoskeletal: No gross injuries. Does not move extremities on command. +2 pitting edema bilaterally. Neuro: No focal neuro deficits. Results: Labs 09/13/24 12:00 09/13/24 06:00 Labs: Short CBC 09/12/24 Range/Units 12:40 WBC 26.7 H (3.6-11.0) Thou/mm3 Hgb 7.6 L (12.0-16.0) g/dL Hct 23.3 L (36.0-46.0) % Plt Count 394 D (140-440) Thou/mm3 BMP 09/12/24 13:12 Sodium 137 Potassium 3.9 Chloride 100 Carbon Dioxide 28.3 BUN 22 Creatinine 0.7 Glucose 168 H Calcium 8.8 Cardiac Enzymes 09/12/24 Range/Units 13:12 Troponin I < 0.020 (0.0-0.045) ng/mL Liver Function 09/12/24 Range/Units 13:12 Total Bilirubin 0.2 L (0.3-1.2) mg/dL AST 19 (0-34) U/L ALT 9 L (10-49) U/L Alkaline Phosphatase 73 (46-116) U/L Albumin 3.6 (3.4-4.8) gm/dL Urine 09/12/24 Range/Units 13:48 Urine Color Yellow (Lt Yel-Yel) Urine Clarity Turbid A (Clear/Hazy) Urine pH 7.0 (5.0-7.0) Ur Specific Fleming 1.022 (1.001-1.035) Urine Protein 2+ A (Neg - Trace) Urine Glucose (UA) Negative (Negative) Quality Measures Quality Measures none Advance care planning discussed with:: patient Medications Home Medications and Allergies Home Medications ?Medication ?Instructions ?Recorded ?Confirmed ?Type acetaminophen 325 mg tablet 650 mg G-tube Q4HR PRN FEVER > 101 09/13/24 09/12/24 History acetaminophen 325 mg tablet 650 mg G-tube Q6HR PRN Pain Scale 09/13/24 09/12/24 History 1-3 (Mild artificial 2 drp Both eyes Q8HR 09/13/24 09/12/24 History tears(cislibm-qznuqrqn-jzymwgx) 0.1 %-0.3 %-0.2 % eye drops (GenTeal Tears Moderate) aspirin 81 mg chewable tablet 81 mg G-tube QDAY 09/13/24 09/12/24 History atorvastatin 20 mg tablet 40 mg G-tube HS 09/13/24 09/12/24 History bisacodyl 10 mg rectal suppository 10 mg MI PRN PRN No BM Per Bowel 09/13/24 09/12/24 History (Dulcolax (bisacodyl)) Management Protocol buspirone 10 mg tablet 10 mg G-tube BID 09/13/24 09/12/24 History cholecalciferol (vitamin D3) 25 25 mcg G-tube BID 09/13/24 09/12/24 History mcg (1,000 unit) tablet enoxaparin 40 mg/0.4 mL 40 mg SCi QDAY 09/13/24 09/12/24 History subcutaneous syringe glucagon 1 mg/0.2 mL subcutaneous 1 mg IM Q15MIN PRN Hypoglycemia 09/13/24 09/12/24 History solution (Gvoke) guaifenesin 100 mg/5 mL oral 300 mg G-tube Q6HR PRN Cough 09/13/24 09/12/24 History liquid (Taylor-Tussin) insulin lispro 100 unit/mL See Rx Instructions SCi 06,18 09/13/24 09/12/24 History subcutaneous pen ipratropium 0.5 mg-albuterol 3 mg 3 ml INH Q2HR PRN Wheezing 09/13/24 09/12/24 History (2.5 mg base)/3 mL nebulization soln levetiracetam 100 mg/mL oral 1,000 mg G-tube BID 09/13/24 09/12/24 History solution magnesium hydroxide 400 mg/5 mL 30 ml G-tube PRN PRN Constipation 09/13/24 09/12/24 History oral suspension (Milk of Magnesia) polyethylene glycol 3350 17 gram 17 g G-tube PRN PRN No BM Per 09/13/24 09/12/24 History oral powder packet Bowel Management Protocol sodium phosphates 19 gram-7 133 ml MI PRN PRN No BM Per Bowel 09/13/24 09/12/24 History gram/118 mL enema (Fleet Enema) Management Protocol valproic acid (as sodium salt) 250 500 mg G-tube TID 09/13/24 09/12/24 History mg/5 mL oral solution Allergies Allergy/AdvReac Type Severity Reaction Status Date / Time codeine Allergy Verified 06/24/24 19:33 Visit Medications Acetaminophen (Acetaminophen 325 Mg Tablet) 650 mg PO Q6HR PRN PRN Reason: Pain Scale 1-3 (Mild Stop: 10/12/24 16:30 Acetaminophen (Acetaminophen 325 Mg Tablet) 650 mg PO Q4HR PRN PRN Reason: FEVER > 100.3 Stop: 10/12/24 16:30 Albuterol/Ipratropium (Albuterol/Ipratropium (Duoneb) Rt Ericka 3 Ml Nebu) 3 ml INH Q2HR PRN PRN Reason: Wheezing Stop: 10/12/24 16:30 Artificial Tears (Artificial Tears 225 Drop/15 Ml Btl) 2 drop BOTH EYES Q8HR JAYMIE Stop: 10/12/24 21:59 Aspirin (Aspirin 81 Mg Chew) 81 mg GT QDAY JAYMIE Stop: 10/13/24 08:59 Atorvastatin Calcium (Atorvastatin Calcium 20 Mg Tablet) 40 mg GT HS [facility] Stop: 10/12/24 20:59 Bisacodyl (Bisacodyl 10 Mg Supp) 10 mg MI PRN PRN; Protocol PRN Reason: No BM Per Bowel Management Protocol Stop: 10/12/24 16:30 Buspirone HCl (Buspirone Hcl 5 Mg Tablet) 10 mg GT BID [facility] Stop: 10/12/24 20:59 Enoxaparin Sodium (Enoxaparin Sod Inj 40 Mg/0.4 Ml Syringe) 40 mg SC QDAY [facility] Stop: 09/27/24 08:59 Guaifenesin (Guaifenesin Syrup 200 Mg/10 Ml Udc) 300 mg GT Q6HR PRN; Protocol PRN Reason: Cough Stop: 10/12/24 16:30 Levetiracetam (Levetiracetam Liqd 500 Mg/5 Ml Udc) 1,000 mg GT BID [facility] Stop: 10/12/24 20:59 Magnesium Hydroxide (Milk Of Magnesia Susp 30 Ml Udc) 30 ml GT PRN PRN; Protocol PRN Reason: Constipation Stop: 10/12/24 16:30 Non-Formulary Medication (Glucagon [Gvoke]) 1 mg IM Q15MIN PRN PRN Reason: Hypoglycemia Non-Formulary Medication (Valproic Acid (As Sodium Salt)) 500 mg GT TID [facility] Stop: 10/12/24 21:59 Ondansetron HCl (Ondansetron Inj 2 Mg/Ml Inj 2 Ml) 4 mg IVP Q6H PRN; Protocol PRN Reason: NAUSEA OR VOMITING Stop: 10/12/24 16:25 Polyethylene Glycol (Polyethylene Glycol 17 Gm Packet) 17 gm GT PRN PRN PRN Reason: No BM Per Bowel Management Protocol Stop: 10/12/24 16:30 Discontinued Medications Sodium Chloride (Ns) 1,000 mls @ 999 mls/hr IV .Q1H1M ONE Stop: 09/12/24 13:41 Last Infusion: 09/12/24 15:23 Dose: Infused Acetaminophen (Ofirmev Inj) 1,000 mg in 100 mls @ 250 mls/hr IV X1 ONE Stop: 09/12/24 13:05 Last Infusion: 09/12/24 13:54 Dose: Infused Piperacillin/Tazobactam/Dextrose (Zosyn) 3.375 gm in 50 mls @ 100 mls/hr IV X1 ONE Stop: 09/12/24 13:11 Last Infusion: 09/12/24 15:23 Dose: Infused Assessment & Plan Plan Patient is a 69-year-old female with past medical history significant for nonverbal, trach/PEG, epilepsy, hypertension, hyperlipidemia, frequent UTIs with previous labs growing Pseudomonas, and diabetes mellitus who presented to the ED on 09/12/24 due to fever. Patient was brought from her subacute facility in the hospital after found to have a high-grade fever. Patient to be admitted for possible Pseudomonas UTI and started on IV antibiotics. #Possible Pseudomonas UTI #Risk of progression to sepsis Patient came in from subacute facility after finding high fevers. In ED reported 103.5. She has Hobson catheter placed. Previous admission urine cultures positive for Pseudomonas. Sensitivity to Zosyn. Patient came in and found to have 4/4 SIRS criteria and was evaluated for sepsis. However, based upon further work-up, sepsis was ruled out as there was no evidence of end organ damage. However still high suspicion of progressing to sepsis with elevated lactic acid 2.5, Pro-Man elevated 0.97. Will start antibiotics and obtain cultures -IV Zosyn as patient has previous colonization with MRSA and Klebsiella - Pending blood and urine cultures - Held additional fluid boluses due to lower extremity swelling. - Trend lactic acid q3hr #PEG tube Resume feeds as was from subacute facility. -dietary team consulted #Type 2 Diabetes mellitus-controlled 07/01/2024 A1c 5.7, glucose on admission 168. ? Continue with sliding scale insulin ? Hypoglycemic protocol if needed #History of seizures ? Resume patient's home Keppra and valproic acid via G-tube #HLD #HTN - Atorvastatin 40 mg at bedtime ? Losartan 50 mg daily ? Aspirin 81 mg daily #Tracheostomy ? Continue with airway suctioning as needed and tracheostomy maintenance with RT Health maintenance: Dispo: tele for UTI with IV abx FEN: PEG tube feeds DVT prophylaxis: Lovenox CODE STATUS: DNR The patient's management plan was discussed with my attending physician Dr. Patel. Rabia Moore, PGY-1 Attending Provider Attestation/Addendum I attest that I was physically present for the evaluation, physical examination, lab and imaging review of the patient with the residents. I discussed the case with the residents and agree with the findings and plans of care as documented above. Patient is a 69 years old female who is nonverbal at baseline, has chronic trach and PEG, epilepsy, hypertension, hyperlipidemia and diabetes mellitus who presented to the ED with complaint of fever. Patient was found to have high-grade fever at her facility at 103, also noted to have cirrhosis. In the ED, her blood pressure was 170/71, pulse 111, respiratory rate 30, temperature 103.5. She is also noted to have leukocytosis of 26, hemoglobin 7.6, lactate 3.5, procalcitonin 0.97. UA was positive for leukocyte esterase and WBC of 326, 1+ bacteria. Patient had previous hospital admissions for Pseudomonas UTI. On exam, patient appears ill, noted to have rigor and appears uncomfortable she received IV fluid bolus in the ED. Patient has 4/4 SIRS criteria, although no evidence of endorgan damage at this time, has high risk of progression to sepsis. After examination of the patient and review of the clinical data I feel that this patient needs admission to the hospital for further treatment/evaluation of likely Pseudomonas UTI with risk of progression to sepsis. We will start her on IV Zosyn, will obtain culture results. Patient has bilateral lower extremity swelling, we will be careful with IV hydration. We will consult registered dietitian to start her tube feeds. Started on insulin regimen for diabetes. Resumed home Keppra and valproic acid for seizures. We will continue with aspirin, statin and losartan for hypertension and hyperlipidemia. Yu Patel MD
--- NOTE | 2024-09-12 16:50 | PD.SAPROG ---
Progress Note - SubAcute DIAGNOSIS (1) Chronic respiratory failure: Status: Chronic (2) Ventilator dependent: Status: Chronic (3) Tracheostomy dependence: Status: Chronic (4) PEG (percutaneous endoscopic gastrostomy) status: Status: Chronic (5) Essential hypertension: Status: Chronic (6) Seizures: Status: Chronic (7) Chronic anoxic encephalopathy: Status: Chronic SUBJECTIVE Fever:: none Shortness of Breath:: none Pain:: none OBJECTIVE Most recent vital signs: Last Vital Signs Temp 99.5 F 09/13/24 20:47 Pulse 109 H 09/13/24 20:47 Resp 31 H 09/13/24 20:47 BP 120/71 09/13/24 20:47 Pulse Ox 97 09/13/24 20:47 O2 Del Method Mechanical Ventilation 09/13/24 20:00 FiO2 30 09/13/24 20:00 Neurological:: awake (orientation x 0, no cognitive response) Respiratory:: lungs clear Cardiovascular: RRR Abdomen: soft Extremities:: deformities Tracheostomy:: to ventilator Feeding per:: G tube Complaints:: none ASSESSMENT & PLAN Assessment: 69 yrs of age female being admitted with Anoxic Encepbalopathy; Hypertension/hyperlipidemia/epilepsy, recently treated in acute care for UTI sepsis and on Vancomycn On 07-07-24 pt was sent to ER for worsening hyponatremia inspite of replacement and hyperkalemia and pt returned the same day after iv correction of the above. Since then stable on replacement therapy. 07-26-24 sent to ER and admitted for UTI/sepsis ?, started on Zosyn and returned to [facility] on 07-29-24 in a stable condition. Pt spiked high grade fever earlier in the day in [facility] upto 104 degrees F and it was decided to transfer the pt to ER for possible admission to Acute Hospital for work up of fever and treatment Plan: Pt was thus transferred to ER earlier as planned
[2024-09-12 17:34] LABS: Lactic Acid, 3 HR 6.4 mMol/L (0.4-2.0)
[2024-09-12] MEDS: LOSARTAN POTASSIUM 25 MG TABLET 50 MG GT (18:16)
[2024-09-12] MEDS: LORazepam 2 MG/ML VIAL 1 MG IVP (18:34)
[2024-09-12] MEDS: ACETAMINOPHEN 325 MG TABLET 650 MG PO ×2 (18:52→23:42)
--- NOTE | 2024-09-12 18:57 | XR_ITS ---
Examination: Abdomen sonogram, complete Date and time of exam: September 12, 2024 1906 hours INDICATIONS: Abdominal pain today, cholelithiasis on CT chest study July 26, 2024. Technique: Multiple real-time grayscale transabdominal sonographic images of the abdomen have been obtained. Findings: Multiple gallstones Gallbladder wall 0.3 cm no edema Common bile duct 0.6 cm Pancreatic head 2.1 cm Aorta not enlarged Liver 16.2 cm fatty infiltration Normal hepatopedal portal venous and Dictated 9 BC Right kidney 11.2 cm cortex 2.0 cm Left kidney 11.0 cm renal cortex 1.9 cm Bilateral mild hydronephrosis Spleen is not enlarged IMPRESSION: Cholelithiasis, negative for cholecystitis Mild bilateral hydronephrosis
[2024-09-12 19:08] LABS: Base Excess 3 (-3-3); HCO3 27 mEq/L (20-26); Inspired Oxygen, FIO2 30 %; O2 Saturation 93 % (91-98); PCO2 41 mmHg (32.0-48.0); PO2 62 mmHg (83-108); pH, Arterial 7.43 (7.35-7.45)
[2024-09-12 19:09] LABS: Allen Test Performed/OK; Puncture Site Right Radial
[2024-09-12] MEDS: ATORVASTATIN CALCIUM 20 MG TABLET 40 MG GT (20:54)
[2024-09-12] MEDS: BusPIRone HCL 5 MG TABLET 10 MG GT (20:57)
[2024-09-12] MEDS: levETIRAcetam LIQD 500 MG/5 ML UDC 1000 MG GT (20:58)
[2024-09-12 21:36] LABS: Lactate (Lactic Acid) 2.9 mMol/L (0.4-2.0)
[2024-09-12] MEDS: Artificial Tears 225 DROP/15 ML BTL BOTH EYES (21:47)
[2024-09-12] MEDS: VALPROIC ACID SYRUP 250 MG/5 ML UDC 500 MG PO (21:51)
[2024-09-12 23:25] LABS: Basophils # (Auto) 0.2 Thou/mm3 (0.0-0.2); Basophils % (Auto) 0 % (0-2.5); Eosinophils % (Auto) 0 % (0-10); Hematocrit 22.4 % (36.0-46.0); Immature Granulocytes % (Auto) 2 % (0-0); Immature Granulocytes Auto 1.21 Thou/mm3 (0.00-0.00); Lymphocytes # (Auto) 2.7 Thou/mm3 (1.0-4.8); Lymphocytes % (Auto) 5 % (10-50); Mean Corpuscular HGB Conc 31.7 g/dl (31.0-37.0); Mean Corpuscular Hemoglobin 29.2 pg (25.0-35.0); Mean Corpuscular Volume 92 fL (80-100); Monocytes # (Auto) 7.6 Thou/mm3 (0.0-0.8); Monocytes % (Auto) 15 % (0-12); Neutrophils # (Auto) 38.1 Thou/mm3 (1.8-7.7); Neutrophils % (Auto) 77 % (37-80); Nucleated Red Blood Cell # 0.04 Thou/mm3 (0.00-0.00); Nucleated Red Blood Cell % 0 /100 WBC (0); Platelet Count 452 Thou/mm3 (140-440); RDW Standard Deviation 59.3 fL (36.4-46.3); Red Blood Count 2.43 Miln/mm3 (4.00-5.20)
[2024-09-12 23:31] LABS: Hemoglobin 7.1 g/dL (12.0-16.0); White Blood Count 49.8 Thou/mm3 (3.6-11.0)
[2024-09-12 23:39] LABS: Path Review Blood Smear Sent to Pathologist
--- NOTE | 2024-09-12 23:47 | PD.EDADDENDU ---
Emergency Room Addendum Addendum Narrative: 1855: Patient's lactic acid count increased despite 1L fluid administered. Patient admitted Hx of cholecystectomy currently being for managed for urosepsis. Dr. Salinas in agreement of gall bladder US. I called due to concern for uptrending lactic acid. 0400: RUQ US shows BL hydronephrsis, cholelithiasis, and fatty liver. Patient's white blood cell count continued to increase significantly despite ABX treatment. I recommended to admitting team to have abdomen/pelvis CT ordered.
--- NOTE | 2024-09-12 23:52 | XR_ITS ---
Examination: CT chest with intravenous contrast CT abdomen with intravenous contrast CT pelvis with intravenous contrast 2-D coronal and sagittal reconstructions Time of exam: September 13, 2024, 0210 hours INDICATIONS: Shortness of breath chest pain abdominal pain today CTDI: vol (mGy) : 21 DLP: (mGycm): 1442 Technique: Multiple axial images of the chest, abdomen and pelvis with intravenous contrast, 3.0 mm slice thickness. Images obtained post intravenous injection Isovue 370 60 cc. 2-D sagittal and coronal reconstructions. Low dose protocols were performed. One or more of the following dose reduction techniques were used; automated exposure control, adjustment of the mA and/or KV according to patient size, use of iterative reconstruction technique. Findings: Endotracheal tube tip 3 cm above michael No thoracic aortic aneurysm dilatation No pulmonary artery filling defects on this non-CTA study Mild vascular congestion Normal MR pneumonia or pulmonary edema Fatty infiltration throughout the liver Gallstones Gastrostomy tube satisfactory position No pancreatic mass [id number] right hydronephrosis mild left hydronephrosis, no ureteral calculi, likely vesicoureteral reflux No bowel obstruction No pericecal inflammatory changes Colonic diverticulosis & urinary bladder is contracted around a Hobson catheter pronounced thickening of the urinary bladder wall Severe osteopenia IMPRESSION: No aspiration pneumonia or pulmonary edema Cholelithiasis [id number] right hydronephrosis, mild left hydronephrosis with marked thickening of the urinary bladder wall, likely urinary tract infection, vesicoureteral reflux, cystitis No bowel obstruction
[2024-09-13] VITALS (21 sets, daily range): BP systolic 79–145; BP diastolic 37–87; PULSE 71–120; RESP 19–38; TEMP 36.7–38.4; O2SAT 93–100; BMI 35.3; BMI 36.3
[2024-09-13 00:12] LABS: Alanine Aminotransferase 10 U/L (10-49); Albumin, Serum 3.4 gm/dL (3.4-4.8); Albumin/Globulin Ratio 1.1 (1.2-2.2); Alkaline Phosphatase 70 U/L (46-116); Anion Gap 11 (7-16); Aspartate Amino Transferase 27 U/L (0-34); BUN/Creatinine Ratio 29 Ratio (12-20); Bilirubin,Total 0.2 mg/dL (0.3-1.2); Blood Urea Nitrogen 20 mg/dL (9-23); Calcium (Corrected) 8.5 mg/dL (8.5-10.1); Carbon Dioxide 25.8 mMol/L (20.0-31.0); Chloride 104 mMol/L (98-107); Creatinine (Component) 0.7 mg/dL (0.6-1.3); Estimated Creatinine Clearance 75.7 mL/min (>60); Globulin 3.1 gm/dL (2.3-3.5); Glucose 141 mg/dL (74-106); Osmolality,Calculated 285 (275-295); Potassium 4.4 mMol/L (3.4-5.1); Sodium 141 mMol/L (136-145); Total Protein 6.5 gm/dL (5.7-8.2); eGFR > 60 See Note
[2024-09-13 00:28] LABS: Reflex Lactate? Y
[2024-09-13 01:33] LABS: Lactic Acid, 3 HR 3.9 mMol/L (0.4-2.0)
[2024-09-13 01:41] LABS: Basophils # (Auto) 0.2 Thou/mm3 (0.0-0.2); Basophils % (Auto) 0 % (0-2.5); Eosinophils % (Auto) 0 % (0-10); Hematocrit 22.7 % (36.0-46.0); Immature Granulocytes % (Auto) 2 % (0-0); Immature Granulocytes Auto 1.11 Thou/mm3 (0.00-0.00); Lymphocytes # (Auto) 2.3 Thou/mm3 (1.0-4.8); Lymphocytes % (Auto) 4 % (10-50); Mean Corpuscular HGB Conc 31.3 g/dl (31.0-37.0); Mean Corpuscular Hemoglobin 29.7 pg (25.0-35.0); Mean Corpuscular Volume 95 fL (80-100); Monocytes # (Auto) 10.8 Thou/mm3 (0.0-0.8); Monocytes % (Auto) 21 % (0-12); Neutrophils # (Auto) 38.1 Thou/mm3 (1.8-7.7); Neutrophils % (Auto) 73 % (37-80); Nucleated Red Blood Cell # 0.08 Thou/mm3 (0.00-0.00); Nucleated Red Blood Cell % 0 /100 WBC (0); Platelet Count 386 Thou/mm3 (140-440); RDW Standard Deviation 61.5 fL (36.4-46.3); Red Blood Count 2.39 Miln/mm3 (4.00-5.20)
[2024-09-13 01:46] LABS: Hemoglobin 7.1 g/dL (12.0-16.0); White Blood Count 52.5 Thou/mm3 (3.6-11.0)
[2024-09-13 02:10] LABS: Alanine Aminotransferase 10 U/L (10-49); Albumin, Serum 3.4 gm/dL (3.4-4.8); Albumin/Globulin Ratio 1.1 (1.2-2.2); Alkaline Phosphatase 74 U/L (46-116); Anion Gap 12 (7-16); Aspartate Amino Transferase 40 U/L (0-34); BUN/Creatinine Ratio 26 Ratio (12-20); Bilirubin,Total 0.2 mg/dL (0.3-1.2); Blood Urea Nitrogen 18 mg/dL (9-23); Calcium (Corrected) 8.5 mg/dL (8.5-10.1); Carbon Dioxide 23.5 mMol/L (20.0-31.0); Chloride 104 mMol/L (98-107); Creatinine (Component) 0.7 mg/dL (0.6-1.3); Estimated Creatinine Clearance 75.7 mL/min (>60); Glucose 122 mg/dL (74-106); Osmolality,Calculated 280 (275-295); Potassium 4.8 mMol/L (3.4-5.1); Sodium 139 mMol/L (136-145); Total Protein 6.4 gm/dL (5.7-8.2); eGFR > 60 See Note
--- NOTE | 2024-09-13 03:20 | PRELIM_ITS ---
CT scan of the chest, abdomen and pelvis with intravenous contrast (axial sections with sagittal and coronal reformats) September 13, 2024 0207 hours Clinical History: Concern for hydronephrosis Comparison: None Findings: Several images are degraded due to motion artifacts making evaluation somewhat suboptimal. Streaky atelectasis is seen in the right upper lobe. Bibasilar pleural thickening dependent atelectasis is seen. There is a tracheostomy tube in place. There is no pleural effusion or pneumothorax. The thoracic aorta demonstrates atheromatous calcification without evidence of aneurysm. No evidence of m ediastinal mass or lymphadenopathy. There is no pericardial effusion. The spleen, pancreas and adrenals are unremarkable. Fatty infiltration of the liver is noted. Multiple calculi are noted within the gallbladder, without evidence of gallbladder wall thickening or pericholecystic fluid. Moderate right and mild left hydroureteronephrosis is seen without obstructing ureteric calculus. There is percutaneous gastrostomy catheter with the bulb in the body of stomach. No evidence of bowel obstruction. The appendix is within normal limits (images [id number]). There are multiple colonic diverticula without evidence of diverticulitis. There are subcutaneous nodules in the anterior abdominal wall, likely related to subcutaneous injections. The urinary bladder is partially distended and shows mild wall thickening; possibility of cystitis cannot be excluded. A Hobson catheter is seen in the urinary bladder. There is 2.6 x 1.8 cm submucosal fibroid in the uterus. There is no adnexal mass. There is no free fluid or air. There is suggestion of pelvic floor laxity with possible rectocele. The abdominal aorta demonstrates atheromatous calcification without evidence of aneurysm. The bones are osteopenic. There is chronic fracture of the right ischiopubic ramus. There is chronic deformity of the distal sacrum. Osseous degenerative changes are noted. Soft tissue stranding is noted in the subcutaneous fat in the ventral abdominal wall in the lower abdomen, possibly due to subcutaneous injections. Please note that evaluation of bowel loops is limited due to absence of oral contrast. Impression: Limited evaluation due to motion artifact. 1. Moderate right and mild left hydroureteronephrosis without obstructing ureteric calculus, which may be due to vesicoureteric reflux. 2. Partially distended urinary bladder with mild wall thickening; possibility of cystitis cannot be excluded. 3. No evidence of bowel obstruction, free air or abscess. 4. Cholelithiasis without evidence of acute cholecystitis. 5. No evidence of segmental lung consolidation or pleural effusion. 6. Other findings as described above. Suggest clinical correlation and follow up accordingly. Report Electronically Signed By: Antoine Bowman 09/13/2024 3:19:42 AM [EST]
[2024-09-13] MEDS: PIPER/TAZO 3.375 GM PREMIX 3.375 GM/50 ML BAG IV ×3 (05:33→23:01)
[2024-09-13] MEDS: VALPROIC ACID SYRUP 250 MG/5 ML UDC 500 MG PO ×3 (05:35→21:34)
[2024-09-13 07:02] LABS: Alanine Aminotransferase 10 U/L (10-49); Albumin, Serum 3.4 gm/dL (3.4-4.8); Albumin/Globulin Ratio 1.1 (1.2-2.2); Alkaline Phosphatase 72 U/L (46-116); Anion Gap 11 (7-16); Aspartate Amino Transferase 37 U/L (0-34); BUN/Creatinine Ratio 25 Ratio (12-20); Bilirubin,Total 0.2 mg/dL (0.3-1.2); Blood Urea Nitrogen 20 mg/dL (9-23); Calcium (Corrected) 8.5 mg/dL (8.5-10.1); Carbon Dioxide 25.6 mMol/L (20.0-31.0); Chloride 103 mMol/L (98-107); Creatinine (Component) 0.8 mg/dL (0.6-1.3); Estimated Creatinine Clearance 65.6 mL/min (>60); Glucose 103 mg/dL (74-106); Osmolality,Calculated 282 (275-295); Phosphorous 3.1 mg/dL (2.4-5.1); Potassium 4.4 mMol/L (3.4-5.1); Sodium 140 mMol/L (136-145); Total Protein 6.4 gm/dL (5.7-8.2); eGFR > 60 See Note
--- NOTE | 2024-09-13 08:03 | ECHO_ITS ---
Transthoracic Echo Report Ht (in): 61 Wt (lb): 192 Exam Location: Echo Lab Status: Inpatient Guest Specialist: Rita Amor Indications: Procedure Performed: ASE/ACC Appropriateness Score: 0 BP: 177 / 86 HR: 97 Technical Quality: Technically Difficult MEASUREMENTS (Male / Female) Normal Values 2D ECHO LVOT Diameter 2.0 cm DOPPLER AV Peak Velocity 197.0 cm/s AV Peak Gradient 15.5 mmHg LVOT Peak Velocity 130.0 cm/s LVOT Peak Gradient 6.8 mmHg AV Area Cont Eq pk 2.1 cm? MV Area PHT 3.5 cm? Mitral E Point Velocity 88.8 cm/s Mitral A Point Velocity 110.0 cm/s Mitral E to A Ratio 0.8 LV E' Lateral Velocity 7.6 cm/s Mitral E to LV E' Lateral Ratio 11.7 LV E' Septal Velocity 7.2 cm/s Mitral E to LV E' Septal Ratio 12.4 FINDINGS Left Ventricle Normal left ventricular size, wall thickness, systolic function with no obvious regional wall motion abnormalities. Normal left ventricular diastolic filling pattern for age. The ejection fraction is visually estimated at 65 %. Right Ventricle The right ventricle is mildly dilated. RVSP can not be determined due to innadequate Doppler signal. Left Atrium The left atrium is normal by two-dimensional, color flow and Doppler imaging with no structural abnormalities, no thrombus formation present. Right Atrium The right atrium is normal by two-dimensional imaging, color flow and Doppler imaging with no structural abnormalities, no thrombus formation present. Atrial Septum The interatrial septum appears normal with no evidence of a shunt. Aorta The aorta is normal by two-dimensional, color flow and Doppler interrogation. Mitral Valve The mitral valve annulus is mildly calcified. Trace miltral valve regurgitation. Aortic Valve The aortic valve is trileaflet and normal by two-dimensional, color flow and Doppler interrogation. There is no significant aortic valve regurgitation. Tricuspid Valve The tricuspid valve is normal by two-dimensional, color flow and Doppler interrogation. There is no significant tricuspid valve regurgitation. Pulmonic Valve The pulmonic valve is not well visualized. There is no significant pulmonic valve regurgitation. Vessels The pulmonary artery appears normal. The inferior vena cava pulmonary and hepatic veins appear normal. Pericardium The pericardium is normal by two-dimensional imaging. There is no significant pericardial effusion. CONCLUSIONS Indications: SOB - Check LV function. Normal LV size and function. Estimated EF is 60 to 65%. Indeterminate diastolic function. Mildly dilated RV. Normal RV function. RVSP could not be measured because of inadequate TR. Mild MAC with trace MR. Trace TR. Mild aortic valve sclerosis without stenosis. No pericardial effusion. Umesh Castaneda (Electronically Signed) Final Date: 13 September 2024 19:56
[2024-09-13 08:26] LABS: Lactate (Lactic Acid) 1.8 mMol/L (0.4-2.0)
[2024-09-13] MEDS: BusPIRone HCL 5 MG TABLET 10 MG GT ×2 (08:41→20:34)
[2024-09-13] MEDS: levETIRAcetam LIQD 500 MG/5 ML UDC 1000 MG GT ×2 (08:41→20:34)
[2024-09-13] MEDS: ENOXAPARIN SOD INJ 40 MG/0.4 ML SYRINGE SC (08:41)
[2024-09-13] MEDS: ASPIRIN 81 MG CHEW GT (08:41)
--- NOTE | 2024-09-13 08:58 | PC.SS ---
SS attempted to contact patient's next of kin Suzie Ennis [phone] to obtain information and complete initial assessment. A message was left requesting a return call. Patient is unable to provide information due to being nonverbal.
--- NOTE | 2024-09-13 09:21 | CHAP ---
Said prayer for patient who appeared to be sleeping.
--- NOTE | 2024-09-13 09:31 | PD.RESPRO ---
Documentation for date of: 09/13/24 Subjective Subjective Interval history: The patient was examined and developed a fever overnight, with elevated lactic acid levels. A CT scan of the abdomen and pelvis was done, showing cholelithiasis, [id number] right hydronephrosis, mild left hydronephrosis, thickening of the bladder wall (likely from a UTI), vesicoureteral reflux, and cystitis. There was no evidence of aspiration pneumonia, pulmonary edema, or bowel obstruction. The patient?s antibiotics were broadened to Vancomycin and Zosyn. Blood cultures grew Gram-negative rods, and a repeat culture has been ordered. An echocardiogram was also requested to check for vegetation. The plan is to continue broad antibiotics and follow up with repeat blood cultures and infectious disease recommendations. Exam Vital Signs Temp Pulse Resp BP Pulse Ox O2 Del Method FiO2 98.7 F 97 19 92/52 L 99 Mechanical Ventilation 30 09/13/24 08:00 09/13/24 08:00 09/13/24 08:00 09/13/24 08:00 09/13/24 08:00 09/13/24 08:00 09/13/24 07:00 Narrative Exam General: Elderly female, No acute distress, eyes open HEENT: NCAT, No JVD noted. Mucosa dry. Pupils are equal and reactive to light bilaterally, tracheostomy in place Cardiovascular: Normal S1 and S2. Regular rate and rhythm. Respiratory: Lungs are clear to auscultation bilaterally. No wheezing or crackles heard. Abdomen: Soft, nontender, not distended, normal bowel sounds. PEG tube in place Skin: Warm to touch, dry, no rashes noted Musculoskeletal: No gross injuries. Does not move extremities on command. +2 pitting edema bilaterally. Neuro: No focal neuro deficits. Objective Labs 09/13/24 12:00 09/13/24 06:00 Labs: Laboratory Results - last 24 hr 09/12/24 09/12/24 09/12/24 12:40 13:12 13:48 WBC 26.7 H RBC 2.57 L Hgb 7.6 L Hct 23.3 L MCV 91 MCH 29.6 MCHC 32.6 RDW Std Deviation 57.7 H Plt Count 394 D Neut % (Auto) 78 Lymph % (Auto) 4 L [place] % (Auto) 14 H Eos % (Auto) 0 Baso % (Auto) 0 Neut # (Auto) 20.8 H Lymph # (Auto) 1.1 [place] # (Auto) 3.7 H Eos # (Auto) 0.0 Baso # (Auto) 0.1 Immature Gran # (Auto) 0.93 H Absolute Nucleated RBC 0.07 H Immature Gran % 4 H Nucleated RBC % 0 Smear Path Review PT 12.9 H INR 1.2 APTT 29.6 Puncture Site ABG pH ABG pCO2 ABG pO2 ABG HCO3 ABG O2 Saturation ABG Base Excess FiO2 Sodium 137 Potassium 3.9 Chloride 100 Carbon Dioxide 28.3 Anion Gap 9 BUN 22 Creatinine 0.7 Estim Creat Clear Calc 75.7 eGFR > 60 BUN/Creatinine Ratio 31 H Glucose 168 H Calculated Osmolality 281 Lactic Acid 3.5 H Calcium 8.8 Corrected Calcium 9.1 Phosphorus 3.2 Magnesium 2.1 Total Bilirubin 0.2 L AST 19 ALT 9 L Alkaline Phosphatase 73 Lactate Dehydrogenase 179 Troponin I < 0.020 B-Natriuretic Peptide 113 H Total Protein 6.6 Albumin 3.6 Globulin 3.0 Albumin/Globulin Ratio 1.2 Lipase 35 Procalcitonin 0.97 H Ur Collection Type Clean Catch Urine Color Yellow Urine Clarity Turbid A Urine pH 7.0 Ur Specific [place] 1.022 Urine Protein 2+ A Urine Glucose (UA) Negative Urine Ketones Negative Urine Blood 3+ A Urine Nitrite Negative Urine Bilirubin Negative Urine Urobilinogen (Auto) Negative Ur Leukocyte Esterase Positive Urine RBC 390 H Urine WBC 326 H Ur Squamous Epith Cells 0 Ur Renal Epithelial Cell 2 Urine Bacteria 1+ A 09/12/24 09/12/24 09/12/24 16:25 19:04 21:24 WBC RBC Hgb Hct MCV MCH MCHC RDW Std Deviation Plt Count Neut % (Auto) Lymph % (Auto) [place] % (Auto) Eos % (Auto) Baso % (Auto) Neut # (Auto) Lymph # (Auto) [place] # (Auto) Eos # (Auto) Baso # (Auto) Immature Gran # (Auto) Absolute Nucleated RBC Immature Gran % Nucleated RBC % Smear Path Review PT INR APTT Puncture Site Right Radial ABG pH 7.43 ABG pCO2 41 ABG pO2 62 L ABG HCO3 27 H ABG O2 Saturation 93 ABG Base Excess 3 FiO2 30 Sodium Potassium Chloride Carbon Dioxide Anion Gap BUN Creatinine Estim Creat Clear Calc eGFR BUN/Creatinine Ratio Glucose Calculated Osmolality Lactic Acid 6.4 H* 2.9 H Calcium Corrected Calcium Phosphorus Magnesium Total Bilirubin AST ALT Alkaline Phosphatase Lactate Dehydrogenase Troponin I B-Natriuretic Peptide Total Protein Albumin Globulin Albumin/Globulin Ratio Lipase Procalcitonin Ur Collection Type Urine Color Urine Clarity Urine pH Ur Specific [place] Urine Protein Urine Glucose (UA) Urine Ketones Urine Blood Urine Nitrite Urine Bilirubin Urine Urobilinogen (Auto) Ur Leukocyte Esterase Urine RBC Urine WBC Ur Squamous Epith Cells Ur Renal Epithelial Cell Urine Bacteria 09/12/24 09/13/24 09/13/24 22:59 01:23 06:00 WBC 49.8 H* D 52.5 H* RBC 2.43 L 2.39 L Hgb 7.1 L 7.1 L Hct 22.4 L 22.7 L MCV 92 95 MCH 29.2 29.7 MCHC 31.7 31.3 RDW Std Deviation 59.3 H 61.5 H Plt Count 452 H D 386 D Neut % (Auto) 77 73 Lymph % (Auto) 5 L 4 L [place] % (Auto) 15 H 21 H Eos % (Auto) 0 0 Baso % (Auto) 0 0 Neut # (Auto) 38.1 H 38.1 H Lymph # (Auto) 2.7 2.3 [place] # (Auto) 7.6 H 10.8 H Eos # (Auto) 0.0 0.0 Baso # (Auto) 0.2 0.2 Immature Gran # (Auto) 1.21 H 1.11 H Absolute Nucleated RBC 0.04 H 0.08 H Immature Gran % 2 H 2 H Nucleated RBC % 0 0 Smear Path Review Sent to Pathologist Cancelled PT INR APTT Puncture Site ABG pH ABG pCO2 ABG pO2 ABG HCO3 ABG O2 Saturation ABG Base Excess FiO2 Sodium 141 139 140 Potassium 4.4 D 4.8 4.4 Chloride 104 104 103 Carbon Dioxide 25.8 23.5 25.6 Anion Gap 11 12 11 BUN 20 18 20 Creatinine 0.7 0.7 0.8 Estim Creat Clear Calc 75.7 75.7 65.6 eGFR > 60 > 60 > 60 BUN/Creatinine Ratio 29 H 26 H 25 H Glucose 141 H 122 H 103 Calculated Osmolality 285 280 282 Lactic Acid 3.9 H Calcium 8.0 L 8.0 L 8.0 L Corrected Calcium 8.5 8.5 8.5 Phosphorus 3.1 Magnesium 2.0 Total Bilirubin 0.2 L 0.2 L 0.2 L AST 27 40 H 37 H ALT 10 10 10 Alkaline Phosphatase 70 74 72 Lactate Dehydrogenase Troponin I B-Natriuretic Peptide Total Protein 6.5 6.4 6.4 Albumin 3.4 3.4 3.4 Globulin 3.1 3.0 3.0 Albumin/Globulin Ratio 1.1 L 1.1 L 1.1 L Lipase Procalcitonin Ur Collection Type Urine Color Urine Clarity Urine pH Ur Specific [place] Urine Protein Urine Glucose (UA) Urine Ketones Urine Blood Urine Nitrite Urine Bilirubin Urine Urobilinogen (Auto) Ur Leukocyte Esterase Urine RBC Urine WBC Ur Squamous Epith Cells Ur Renal Epithelial Cell Urine Bacteria 09/13/24 08:10 WBC RBC Hgb Hct MCV MCH MCHC RDW Std Deviation Plt Count Neut % (Auto) Lymph % (Auto) [place] % (Auto) Eos % (Auto) Baso % (Auto) Neut # (Auto) Lymph # (Auto) [place] # (Auto) Eos # (Auto) Baso # (Auto) Immature Gran # (Auto) Absolute Nucleated RBC Immature Gran % Nucleated RBC % Smear Path Review PT INR APTT Puncture Site ABG pH ABG pCO2 ABG pO2 ABG HCO3 ABG O2 Saturation ABG Base Excess FiO2 Sodium Potassium Chloride Carbon Dioxide Anion Gap BUN Creatinine Estim Creat Clear Calc eGFR BUN/Creatinine Ratio Glucose Calculated Osmolality Lactic Acid 1.8 Calcium Corrected Calcium Phosphorus Magnesium Total Bilirubin AST ALT Alkaline Phosphatase Lactate Dehydrogenase Troponin I B-Natriuretic Peptide Total Protein Albumin Globulin Albumin/Globulin Ratio Lipase Procalcitonin Ur Collection Type Urine Color Urine Clarity Urine pH Ur Specific [place] Urine Protein Urine Glucose (UA) Urine Ketones Urine Blood Urine Nitrite Urine Bilirubin Urine Urobilinogen (Auto) Ur Leukocyte Esterase Urine RBC Urine WBC Ur Squamous Epith Cells Ur Renal Epithelial Cell Urine Bacteria ABG Interpretation ABG results: 09/12/24 19:04 ABG pH 7.43 ABG pCO2 41 ABG pO2 62 L ABG HCO3 27 H ABG O2 Saturation 93 ABG Base Excess 3 Quality Measures Quality Measures none Advance care planning discussed with:: patient Assessment & Plan Assessment Current Active Medications: Generic Name Dose Route Start Last Admin Trade Name Freq PRN Reason Stop Dose Admin Acetaminophen 650 mg 09/12/24 16:31 Acetaminophen 325 Mg Tablet PO 10/12/24 16:30 Q6HR PRN Pain Scale 1-3 (Mild Acetaminophen 650 mg 09/12/24 16:31 09/12/24 23:42 Acetaminophen 325 Mg Tablet PO 10/12/24 16:30 650 mg Q4HR PRN Administration FEVER > 100.3 Albuterol/Ipratropium 3 ml 09/12/24 16:31 Albuterol/Ipratropium (Duoneb) Rt Ericka 3 Ml Nebu INH 10/12/24 16:30 Q2HR PRN Wheezing Artificial Tears 2 drop 09/12/24 22:00 09/13/24 06:19 Artificial Tears 225 Drop/15 Ml Btl BOTH EYES 10/12/24 21:59 Not Given Q8HR JAYMIE Aspirin 81 mg 09/13/24 09:00 09/13/24 08:41 Aspirin 81 Mg Chew GT 10/13/24 08:59 81 mg QDAY JAYMIE Administration Atorvastatin Calcium 40 mg 09/12/24 21:00 09/12/24 20:54 Atorvastatin Calcium 20 Mg Tablet GT 10/12/24 20:59 40 mg HS JAYMIE Administration Bisacodyl 10 mg 09/12/24 16:31 Bisacodyl 10 Mg Supp HI 10/12/24 16:30 PRN PRN No BM Per Bowel Management Protocol Protocol Buspirone HCl 10 mg 09/12/24 21:00 09/13/24 08:41 Buspirone Hcl 5 Mg Tablet GT 10/12/24 20:59 10 mg BID JAYMIE Administration Dextrose 25 ml 09/12/24 17:02 Dextrose 50%-Water Inj 50 Ml Syringe IV 10/12/24 17:01 Q15MIN PRN BG 50-70 responsive npo pt Dextrose 50 ml 09/12/24 17:02 Dextrose 50%-Water Inj 50 Ml Syringe IV 10/12/24 17:01 Q15MIN PRN BG <50 OR BG <70 & pt unresponsive Enoxaparin Sodium 40 mg 09/13/24 09:00 09/13/24 08:41 Enoxaparin Sod Inj 40 Mg/0.4 Ml Syringe SC 09/27/24 08:59 40 mg QDAY JAYMIE Administration Glucagon 1 mg 09/12/24 17:02 Glucagon Inj 1 Mg Vial IM Q15MIN PRN BG <70, and no IV access Guaifenesin 300 mg 09/12/24 16:31 Guaifenesin Syrup 200 Mg/10 Ml Udc GT 10/12/24 16:30 Q6HR PRN Cough Protocol Piperacillin/Tazobactam/Dextrose 3.375 gm in 50 mls @ 12.5 mls/hr 09/12/24 22:00 09/13/24 05:33 Zosyn IV 09/19/24 21:59 3.375 mls/hr Q8HR JAYMIE Administration Vancomycin/Sodium Chloride 750 mg in 150 mls @ 120 mls/hr 09/13/24 10:00 Vancomycin/Ns 750 Mg Ivpb IV 09/20/24 09:59 BID@1000,2200 JAYMIE Lactated Ringer's 500 mls @ 75 mls/hr 09/13/24 09:05 Lactated Ringers IV 09/13/24 15:44 .Q6H40M ONE Insulin Human Lispro 0 unit 09/13/24 07:30 09/13/24 08:42 Insulin Lispro (Admelog) 1 Unit/0.01 Ml Unit SC 10/13/24 07:29 Not Given AC JAYMIE Protocol Levetiracetam 1,000 mg 09/12/24 21:00 09/13/24 08:41 Levetiracetam Liqd 500 Mg/5 Ml Udc GT 10/12/24 20:59 1,000 mg BID JAYMIE Administration Losartan Potassium 50 mg 09/12/24 17:15 09/12/24 18:16 Losartan Potassium 25 Mg Tablet GT 10/12/24 17:14 50 mg DAILY JAYMIE Administration Magnesium Hydroxide 30 ml 09/12/24 16:31 Milk Of Magnesia Susp 30 Ml Udc GT 10/12/24 16:30 QDAY PRN CONSTIPATION Protocol Ondansetron HCl 4 mg 09/12/24 16:26 Ondansetron Inj 2 Mg/Ml Inj 2 Ml IVP 10/12/24 16:25 Q6H PRN NAUSEA OR VOMITING Protocol Pharmacy Consult 1 each 09/13/24 09:00 Vancomycin Pharmacy To Dose 1 Each Each IV 10/13/24 08:59 QDAY PRN CONSULT Polyethylene Glycol 17 gm 09/12/24 16:31 Polyethylene Glycol 17 Gm Packet GT 10/12/24 16:30 QDAY PRN CONSTIPATION Protocol Valproic Acid 500 mg 09/12/24 22:00 09/13/24 05:35 Valproic Acid Syrup 250 Mg/5 Ml Udc PO 10/12/24 21:59 500 mg TID JAYMIE Administration Plan Patient is a 69-year-old female with past medical history significant for nonverbal, trach/PEG, epilepsy, hypertension, hyperlipidemia, frequent UTIs with previous labs growing Pseudomonas, and diabetes mellitus who presented to the ED on 09/12/24 due to fever. Patient was brought from her subacute facility in the hospital after found to have a high-grade fever. Patient to be admitted for possible Pseudomonas UTI and started on IV antibiotics. #Sepsis in the setting of GNR bacteremia #GNR bacteremia Most likely the source is the urine Blood culture 2 out of 2 preliminary revealed GNR - Continue with Zosyn and vancomycin - Follow-up repeat blood culture - Echo to rule out any vegetation - ID is on board, will follow-up with recommendations #UTI Patient came in from subacute facility after finding high fevers. In ED reported 103.5. She has Hobson catheter placed. Previous admission urine cultures positive for Pseudomonas. Sensitivity to Zosyn. Patient came in and found to have 4/4 SIRS criteria and was evaluated for sepsis. However, based upon further work-up, sepsis was ruled out as there was no evidence of end organ damage. However still high suspicion of progressing to sepsis with elevated lactic acid 2.5, Pro-Man elevated 0.97. Will start antibiotics and obtain cultures patient has previous colonization with MRSA and Klebsiella - Pending urine culture - Continue antibiotics #PEG tube Resume feeds as was from subacute facility. -dietary team consulted #Type 2 Diabetes mellitus-controlled 07/01/2024 A1c 5.7, glucose on admission 168. ? Continue with sliding scale insulin ? Hypoglycemic protocol if needed #History of seizures ? Resume patient's home Keppra and valproic acid via G-tube #HLD #HTN - Atorvastatin 40 mg at bedtime ? Losartan 50 mg daily ? Aspirin 81 mg daily #Tracheostomy ? Continue with airway suctioning as needed and tracheostomy maintenance with RT Health maintenance: Dispo: telemetry FEN: PEG tube feeds DVT prophylaxis: Lovenox CODE STATUS: DNR Patient care was discussed with attending physician Dr. Amanda Yoo MD PGY-2 Attending Provider Attestation/Addendum I attest that I was physically present for the evaluation, physical examination, lab and imaging review of the patient with the residents. I discussed the case with the residents and agree with the findings and plans of care as documented above. Overnight, patient had fever until 1 AM. But appears more comfortable compared to yesterday this morning. Continues to be on supplemental oxygen with tracheostomy tube. Noted to have uptrending WBC from 26.7 yesterday to 52.5 this morning. Added IV vancomycin. Chemistry panel remains stable except for lactic acid of 3.9. On exam, patient does have bilateral pedal edema, most likely due to being in the same position, lungs are clear to auscultation. We will continue with some IV hydration. Blood culture grew GNR on both bottles. We will continue with IV Zosyn and obtain ID consult. Hemoglobin noted to be downtrending, 7.1 this morning and 6.0 this afternoon. Patient does not have any obvious source of bleeding, we will obtain iron studies, occult blood and transfuse her with 2 units of PRBC. Yu Patel MD
--- NOTE | 2024-09-13 10:01 | PC.DIETICIAN ---
Nutrition prescription 1. Glucerna 1.2 at 35 ml/hr via PEG tube by pump. Advance 10 ml every 8 hrs to goal rate of 55 ml/hr x 24 hrs. If no IV fluids, water flushes of 40 ml/hr (or per MD). 2. Arash 1 pkt (unflavored) BID mixed with 6-8 oz water via PEG tube.
[2024-09-13] MEDS: VANCOMYCIN/NS 750 MG IVPB 750 MG/150 ML BAG 120 MG IV ×2 (11:16→21:34)
--- NOTE | 2024-09-13 12:06 | PC.SS ---
Patient is a 69YO Female, reason for visit: UTI. SS received call from patient's sibling Suzie Ennis; initial assesmentc completed with Suzie via telephone. Patient's sibling confirmed patient's demographic information. She explained patient is a resident of [facility] and would be returning to it at the time of discharge. Suzie stated patient requires maximum assistance with ADLs and ambulation. She reports patient is bedbound and nonverbal. Suzie stated she is patient's primary medical surrogate decisionmaker. Next of kin: Sibling Suzie Ennis [phone] Discharge plan: [facility]
[2024-09-13] MEDS: RINGERS LACTATED 500 ML 500 ML 75 ML IV (12:54)
[2024-09-13 13:02] LABS: Hematocrit 19.2 % (36.0-46.0)
[2024-09-13] MEDS: Artificial Tears 225 DROP/15 ML BTL BOTH EYES ×2 (14:01→21:34)
--- NOTE | 2024-09-13 14:49 | ESPR_ITS ---
Subjective Subjective Interval history: consult came thru this pm. Exam Vital Signs Temp Pulse Resp BP Pulse Ox O2 Del Method FiO2 99 F 106 H 19 101/51 L 97 Mechanical Ventilation 30 09/13/24 12:00 09/13/24 12:25 09/13/24 12:00 09/13/24 12:00 09/13/24 12:25 09/13/24 12:00 09/13/24 12:25 Narrative Exam not seen Objective - Internal Medicine Labs 09/13/24 12:00 09/13/24 06:00 Labs: Laboratory Results - last 24 hr 09/12/24 09/12/24 09/12/24 16:25 19:04 21:24 WBC RBC Hgb Hct MCV MCH MCHC RDW Std Deviation Plt Count Neut % (Auto) Lymph % (Auto) [place] % (Auto) Eos % (Auto) Baso % (Auto) Neut # (Auto) Lymph # (Auto) [place] # (Auto) Eos # (Auto) Baso # (Auto) Immature Gran # (Auto) Absolute Nucleated RBC Immature Gran % Nucleated RBC % Smear Path Review Puncture Site Right Radial ABG pH 7.43 ABG pCO2 41 ABG pO2 62 L ABG HCO3 27 H ABG O2 Saturation 93 ABG Base Excess 3 FiO2 30 Sodium Potassium Chloride Carbon Dioxide Anion Gap BUN Creatinine Estim Creat Clear Calc eGFR BUN/Creatinine Ratio Glucose Calculated Osmolality Lactic Acid 6.4 H* 2.9 H Calcium Corrected Calcium Phosphorus Magnesium Total Bilirubin AST ALT Alkaline Phosphatase Total Protein Albumin Globulin Albumin/Globulin Ratio Crossmatch Blood Bank Wristband ID 09/12/24 09/13/24 09/13/24 22:59 01:23 06:00 WBC 49.8 H* D 52.5 H* RBC 2.43 L 2.39 L Hgb 7.1 L 7.1 L Hct 22.4 L 22.7 L MCV 92 95 MCH 29.2 29.7 MCHC 31.7 31.3 RDW Std Deviation 59.3 H 61.5 H Plt Count 452 H D 386 D Neut % (Auto) 77 73 Lymph % (Auto) 5 L 4 L [place] % (Auto) 15 H 21 H Eos % (Auto) 0 0 Baso % (Auto) 0 0 Neut # (Auto) 38.1 H 38.1 H Lymph # (Auto) 2.7 2.3 [place] # (Auto) 7.6 H 10.8 H Eos # (Auto) 0.0 0.0 Baso # (Auto) 0.2 0.2 Immature Gran # (Auto) 1.21 H 1.11 H Absolute Nucleated RBC 0.04 H 0.08 H Immature Gran % 2 H 2 H Nucleated RBC % 0 0 Smear Path Review Sent to Pathologist Cancelled Puncture Site ABG pH ABG pCO2 ABG pO2 ABG HCO3 ABG O2 Saturation ABG Base Excess FiO2 Sodium 141 139 140 Potassium 4.4 D 4.8 4.4 Chloride 104 104 103 Carbon Dioxide 25.8 23.5 25.6 Anion Gap 11 12 11 BUN 20 18 20 Creatinine 0.7 0.7 0.8 Estim Creat Clear Calc 75.7 75.7 65.6 eGFR > 60 > 60 > 60 BUN/Creatinine Ratio 29 H 26 H 25 H Glucose 141 H 122 H 103 Calculated Osmolality 285 280 282 Lactic Acid 3.9 H Calcium 8.0 L 8.0 L 8.0 L Corrected Calcium 8.5 8.5 8.5 Phosphorus 3.1 Magnesium 2.0 Total Bilirubin 0.2 L 0.2 L 0.2 L AST 27 40 H 37 H ALT 10 10 10 Alkaline Phosphatase 70 74 72 Total Protein 6.5 6.4 6.4 Albumin 3.4 3.4 3.4 Globulin 3.1 3.0 3.0 Albumin/Globulin Ratio 1.1 L 1.1 L 1.1 L Crossmatch Blood Bank Wristband ID 09/13/24 09/13/24 09/13/24 08:10 12:00 14:13 WBC RBC Hgb 6.0 L* Hct 19.2 L* MCV MCH MCHC RDW Std Deviation Plt Count Neut % (Auto) Lymph % (Auto) [place] % (Auto) Eos % (Auto) Baso % (Auto) Neut # (Auto) Lymph # (Auto) [place] # (Auto) Eos # (Auto) Baso # (Auto) Immature Gran # (Auto) Absolute Nucleated RBC Immature Gran % Nucleated RBC % Smear Path Review Puncture Site ABG pH ABG pCO2 ABG pO2 ABG HCO3 ABG O2 Saturation ABG Base Excess FiO2 Sodium Potassium Chloride Carbon Dioxide Anion Gap BUN Creatinine Estim Creat Clear Calc eGFR BUN/Creatinine Ratio Glucose Calculated Osmolality Lactic Acid 1.8 Calcium Corrected Calcium Phosphorus Magnesium Total Bilirubin AST ALT Alkaline Phosphatase Total Protein Albumin Globulin Albumin/Globulin Ratio Crossmatch See Detail Blood Bank Wristband ID Yes ABG Interpretation ABG results: 09/12/24 19:04 ABG pH 7.43 ABG pCO2 41 ABG pO2 62 L ABG HCO3 27 H ABG O2 Saturation 93 ABG Base Excess 3 Assessment & Plan A&P Narrative leukemoid picture neg cxr 09/12 noted abx appear to be empirical for suspected sepsis Time Spent With Patient Time: Total time spent is greater than 50% in coordination of care (as documented) at patient's floor/unit and/or counseling patient:
[2024-09-13 14:56] LABS: Iron < 5 mcg/dL (50-170); Percent Iron Saturation 2 % (20-55); Total Iron Binding Capacity 239 mcg/dL (250-425); Unsaturated Iron Binding 234 (225-295)
[2024-09-13] MEDS: RINGERS LACTATED 500 ML 500 ML 999 ML IV (18:13)
[2024-09-13] MEDS: MIDODRINE 5 MG TABLET GT (18:31)
[2024-09-13] MEDS: ATORVASTATIN CALCIUM 20 MG TABLET 40 MG GT (20:34)
[2024-09-14] VITALS (13 sets, daily range): BP systolic 93–137; BP diastolic 48–93; PULSE 69–101; RESP 20–39; TEMP 36.3–37.1; O2SAT 94–98; BMI 37.2
[2024-09-14 00:29] LABS: Hematocrit 23.3 % (36.0-46.0); Hemoglobin 7.7 g/dL (12.0-16.0)
[2024-09-14] MEDS: VALPROIC ACID SYRUP 250 MG/5 ML UDC 500 MG PO ×3 (05:03→21:17)
[2024-09-14] MEDS: PIPER/TAZO 3.375 GM PREMIX 3.375 GM/50 ML BAG IV (05:03)
[2024-09-14] MEDS: Artificial Tears 225 DROP/15 ML BTL BOTH EYES ×3 (05:04→21:17)
[2024-09-14 06:11] LABS: Basophils # (Auto) 0.1 Thou/mm3 (0.0-0.2); Basophils % (Auto) 0 % (0-2.5); Eosinophils # (Auto) 0.1 Thou/mm3 (0.0-0.5); Eosinophils % (Auto) 0 % (0-10); Hematocrit 26.9 % (36.0-46.0); Immature Granulocytes % (Auto) 3 % (0-0); Immature Granulocytes Auto 0.86 Thou/mm3 (0.00-0.00); Lymphocytes # (Auto) 2.5 Thou/mm3 (1.0-4.8); Lymphocytes % (Auto) 8 % (10-50); Mean Corpuscular HGB Conc 32.3 g/dl (31.0-37.0); Mean Corpuscular Hemoglobin 28.7 pg (25.0-35.0); Mean Corpuscular Volume 89 fL (80-100); Monocytes # (Auto) 5.3 Thou/mm3 (0.0-0.8); Monocytes % (Auto) 17 % (0-12); Neutrophils % (Auto) 71 % (37-80); Nucleated Red Blood Cell # 0.19 Thou/mm3 (0.00-0.00); Nucleated Red Blood Cell % 1 /100 WBC (0); Platelet Count 319 Thou/mm3 (140-440); RDW Standard Deviation 60.4 fL (36.4-46.3); Red Blood Count 3.03 Miln/mm3 (4.00-5.20); White Blood Count 30.9 Thou/mm3 (3.6-11.0)
[2024-09-14 06:21] LABS: Hemoglobin 8.7 g/dL (12.0-16.0)
[2024-09-14 06:35] LABS: Alanine Aminotransferase 14 U/L (10-49); Albumin, Serum 3.1 gm/dL (3.4-4.8); Albumin/Globulin Ratio 1.1 (1.2-2.2); Alkaline Phosphatase 81 U/L (46-116); Anion Gap 11 (7-16); Aspartate Amino Transferase 48 U/L (0-34); BUN/Creatinine Ratio 28 Ratio (12-20); Bilirubin,Total 0.3 mg/dL (0.3-1.2); Blood Urea Nitrogen 25 mg/dL (9-23); Calcium (Corrected) 8.7 mg/dL (8.5-10.1); Carbon Dioxide 27.1 mMol/L (20.0-31.0); Chloride 104 mMol/L (98-107); Creatinine (Component) 0.9 mg/dL (0.6-1.3); Estimated Creatinine Clearance 59.2 mL/min (>60); Globulin 2.8 gm/dL (2.3-3.5); Glucose 132 mg/dL (74-106); Osmolality,Calculated 289 (275-295); Potassium 4.2 mMol/L (3.4-5.1); Sodium 142 mMol/L (136-145); Total Protein 5.9 gm/dL (5.7-8.2); eGFR > 60 See Note
[2024-09-14 06:50] LABS: Path Review Blood Smear Sent to Pathologist
[2024-09-14] MEDS: levETIRAcetam LIQD 500 MG/5 ML UDC 1000 MG GT ×2 (08:58→21:17)
[2024-09-14] MEDS: ASPIRIN 81 MG CHEW GT (08:59)
[2024-09-14] MEDS: BusPIRone HCL 5 MG TABLET 10 MG GT ×2 (08:59→21:17)
[2024-09-14] MEDS: LOSARTAN POTASSIUM 25 MG TABLET 50 MG GT (08:59)
[2024-09-14] MEDS: cefTRIAXone/D5w 2gm 2 GM/50 ML BAG IV (11:38)
--- NOTE | 2024-09-14 13:13 | ESPR_ITS ---
Documentation for date of: 09/14/24 Subjective Subjective Interval history: Patient examined at bedside. No events overnight. Vitals are stable with no reported fevers. Patient appeared to understand simple yes or no questions as she would respond with head nods. Denied any pain. Leukocytosis downtrending 31, hemoglobin up trended 8.7 after receiving 2 units PRBC. CMP unremarkable. Auscultated lungs, negative for crackles but significant congestion. Will diurese patient with Lasix IV 40 x 1 as she did receive plenty of fluids in setting of her elevated lactic acid and is status post PRBC transfusion. She still has lower extremity pitting edema. Resume patient's DVT prophylaxis with Lovenox 40 daily as hemoglobin has improved. De-escalate antibiotics to ceftriaxone 2 g daily for treatment of Klebsiella bacteremia and Klebsiella UTI. Repeat blood cultures are pending, echo has been negative for any valvular vegetations. Exam Vital Signs Temp Pulse Resp BP Pulse Ox O2 Del Method FiO2 97.7 F 96 24 H 93/59 L 98 Mechanical Ventilation 30 09/14/24 08:00 09/14/24 12:52 09/14/24 08:00 09/14/24 08:59 09/14/24 12:52 09/14/24 04:00 09/14/24 12:52 Narrative Exam General: Elderly female, No acute distress, eyes open HEENT: NCAT, No JVD noted. Mucosa dry. Pupils are equal and reactive to light bilaterally, tracheostomy in place Cardiovascular: Normal S1 and S2. Regular rate and rhythm. Respiratory: Lungs are clear to auscultation bilaterally. No wheezing or crackles heard. Abdomen: Soft, nontender, not distended, normal bowel sounds. PEG tube in place Skin: Warm to touch, dry, no rashes noted Musculoskeletal: No gross injuries. Does not move extremities on command. +2 pitting edema bilaterally. Neuro: No focal neuro deficits. Objective Labs 09/14/24 05:40 09/14/24 05:40 Labs: Laboratory Results - last 24 hr 09/13/24 09/13/24 09/14/24 11:52 14:13 00:17 WBC RBC Hgb 7.7 L D Hct 23.3 L MCV MCH MCHC RDW Std Deviation Plt Count Neut % (Auto) Lymph % (Auto) [place] % (Auto) Eos % (Auto) Baso % (Auto) Neut # (Auto) Lymph # (Auto) [place] # (Auto) Eos # (Auto) Baso # (Auto) Immature Gran # (Auto) Absolute Nucleated RBC Immature Gran % Nucleated RBC % Smear Path Review Sodium Potassium Chloride Carbon Dioxide Anion Gap BUN Creatinine Estim Creat Clear Calc eGFR BUN/Creatinine Ratio Glucose Calculated Osmolality Calcium Corrected Calcium Iron < 5 L TIBC 239 L Iron Saturation 2 L Unsat Iron Binding 234 Total Bilirubin AST ALT Alkaline Phosphatase Total Protein Albumin Globulin Albumin/Globulin Ratio Blood Type B Positive Antibody Screen NEGATIVE Crossmatch See Detail Blood Bank Wristband ID Yes 09/14/24 05:40 WBC 30.9 H D RBC 3.03 L Hgb 8.7 L Hct 26.9 L MCV 89 MCH 28.7 MCHC 32.3 RDW Std Deviation 60.4 H Plt Count 319 D Neut % (Auto) 71 Lymph % (Auto) 8 L [place] % (Auto) 17 H Eos % (Auto) 0 Baso % (Auto) 0 Neut # (Auto) 22.0 H Lymph # (Auto) 2.5 [place] # (Auto) 5.3 H Eos # (Auto) 0.1 Baso # (Auto) 0.1 Immature Gran # (Auto) 0.86 H Absolute Nucleated RBC 0.19 H Immature Gran % 3 H Nucleated RBC % 1 H Smear Path Review Sent to Pathologist Sodium 142 Potassium 4.2 Chloride 104 Carbon Dioxide 27.1 Anion Gap 11 BUN 25 H Creatinine 0.9 Estim Creat Clear Calc 59.2 L eGFR > 60 BUN/Creatinine Ratio 28 H Glucose 132 H Calculated Osmolality 289 Calcium 8.0 L Corrected Calcium 8.7 Iron TIBC Iron Saturation Unsat Iron Binding Total Bilirubin 0.3 AST 48 H ALT 14 Alkaline Phosphatase 81 Total Protein 5.9 Albumin 3.1 L Globulin 2.8 Albumin/Globulin Ratio 1.1 L Blood Type Antibody Screen Crossmatch Blood Bank Wristband ID ABG Interpretation ABG results: 09/12/24 19:04 ABG pH 7.43 ABG pCO2 41 ABG pO2 62 L ABG HCO3 27 H ABG O2 Saturation 93 ABG Base Excess 3 Quality Measures Quality Measures none Advance care planning discussed with:: other Assessment & Plan Assessment Current Active Medications: Generic Name Dose Route Start Last Admin Trade Name Freq PRN Reason Stop Dose Admin Acetaminophen 650 mg 09/12/24 16:31 Acetaminophen 325 Mg Tablet PO 10/12/24 16:30 Q6HR PRN Pain Scale 1-3 (Mild Acetaminophen 650 mg 09/12/24 16:31 09/12/24 23:42 Acetaminophen 325 Mg Tablet PO 10/12/24 16:30 650 mg Q4HR PRN Administration FEVER > 100.3 Albuterol/Ipratropium 3 ml 09/12/24 16:31 Albuterol/Ipratropium (Duoneb) Rt Ericka 3 Ml Nebu INH 10/12/24 16:30 Q2HR PRN Wheezing Artificial Tears 2 drop 09/12/24 22:00 09/14/24 05:04 Artificial Tears 225 Drop/15 Ml Btl BOTH EYES 10/12/24 21:59 2 drop Q8HR JAYMIE Administration Aspirin 81 mg 09/13/24 09:00 09/14/24 08:59 Aspirin 81 Mg Chew GT 10/13/24 08:59 81 mg QDAY JAYMIE Administration Atorvastatin Calcium 40 mg 09/12/24 21:00 09/13/24 20:34 Atorvastatin Calcium 20 Mg Tablet GT 10/12/24 20:59 40 mg HS JAYMIE Administration Bisacodyl 10 mg 09/12/24 16:31 Bisacodyl 10 Mg Supp CO 10/12/24 16:30 PRN PRN No BM Per Bowel Management Protocol Protocol Buspirone HCl 10 mg 09/12/24 21:00 09/14/24 08:59 Buspirone Hcl 5 Mg Tablet GT 10/12/24 20:59 10 mg BID JAYMIE Administration Dextrose 25 ml 09/12/24 17:02 Dextrose 50%-Water Inj 50 Ml Syringe IV 10/12/24 17:01 Q15MIN PRN BG 50-70 responsive npo pt Dextrose 50 ml 09/12/24 17:02 Dextrose 50%-Water Inj 50 Ml Syringe IV 10/12/24 17:01 Q15MIN PRN BG <50 OR BG <70 & pt unresponsive Glucagon 1 mg 09/12/24 17:02 Glucagon Inj 1 Mg Vial IM Q15MIN PRN BG <70, and no IV access Guaifenesin 300 mg 09/12/24 16:31 Guaifenesin Syrup 200 Mg/10 Ml Udc GT 10/12/24 16:30 Q6HR PRN Cough Protocol Ceftriaxone Sodium/Dextrose 2 gm in 50 mls @ 100 mls/hr 09/14/24 10:00 09/14/24 11:38 Rocephin/D5w 2gm IV 09/21/24 09:47 100 mls/hr QDAY JAYIME Administration Insulin Human Lispro 0 unit 09/13/24 07:30 09/14/24 11:21 Insulin Lispro (Admelog) 1 Unit/0.01 Ml Unit SC 10/13/24 07:29 Not Given AC JAYMIE Protocol Levetiracetam 1,000 mg 09/12/24 21:00 09/14/24 08:58 Levetiracetam Liqd 500 Mg/5 Ml Udc GT 10/12/24 20:59 1,000 mg BID JAYMIE Administration Losartan Potassium 50 mg 09/12/24 17:15 09/14/24 08:59 Losartan Potassium 25 Mg Tablet GT 10/12/24 17:14 50 mg DAILY JAYMIE Administration Magnesium Hydroxide 30 ml 09/12/24 16:31 Milk Of Magnesia Susp 30 Ml Udc GT 10/12/24 16:30 QDAY PRN CONSTIPATION Protocol Ondansetron HCl 4 mg 09/12/24 16:26 Ondansetron Inj 2 Mg/Ml Inj 2 Ml IVP 10/12/24 16:25 Q6H PRN NAUSEA OR VOMITING Protocol Polyethylene Glycol 17 gm 09/12/24 16:31 Polyethylene Glycol 17 Gm Packet GT 10/12/24 16:30 QDAY PRN CONSTIPATION Protocol Valproic Acid 500 mg 09/12/24 22:00 09/14/24 05:03 Valproic Acid Syrup 250 Mg/5 Ml Udc PO 10/12/24 21:59 500 mg TID JAYMIE Administration Plan Patient is a 69-year-old female with past medical history significant for nonverbal, trach/PEG, epilepsy, hypertension, hyperlipidemia, frequent UTIs with previous labs growing Pseudomonas, and diabetes mellitus who presented to the ED on 09/12/24 due to fever. Patient was brought from her subacute facility in the hospital after found to have a high-grade fever. Patient to be admitted for possible Pseudomonas UTI and started on IV antibiotics. #Klebsiella bacteremia #Klebsiella UTI Patient came in from subacute facility after finding high fevers. In ED reported 103.5. She has Hobson catheter placed. Previous admission urine cultures positive for Pseudomonas. Sensitivity to Zosyn. Patient came in and found to have 4/4 SIRS criteria and was evaluated for sepsis. However, based upon further work-up, sepsis was ruled out as there was no evidence of end organ damage. However still high suspicion of progressing to sepsis with elevated lactic acid 2.5, Pro-Man elevated 0.97. Blood culture 2 out of 2 preliminary revealed GNR Echo 09/13/24--negative for vegitations, Normal LV size and function. Estimated EF is 60 to 65%. -De-escalate antibiotics to IV ceftriaxone 2 g daily (09/14- - repeat blood culture pending - ID is on board, will follow-up with recommendations #PEG tube Resume feeds as was from subacute facility. -dietary team consulted -tolerating feeds #Type 2 Diabetes mellitus-controlled 07/01/2024 A1c 5.7, glucose on admission 168. ? Continue with sliding scale insulin ? Hypoglycemic protocol if needed #History of seizures ? Resume patient's home Keppra and valproic acid via G-tube #HLD #HTN - Atorvastatin 40 mg at bedtime ? Losartan 50 mg daily ? Aspirin 81 mg daily #Tracheostomy ? Continue with airway suctioning as needed and tracheostomy maintenance with RT Health maintenance: Dispo: telemetry, klebsiella bacteremia FEN: PEG tube feeds DVT prophylaxis: Lovenox CODE STATUS: DNR Patient care was discussed with attending physician Dr. Amanda Moore, PGY1 Attending Provider Attestation/Addendum I attest that I was physically present for the evaluation, physical examination, lab and imaging review of the patient with the residents. I discussed the case with the residents and agree with the findings and plans of care as documented above. At bedside today, patient appears comfortable. Has not had any febrile episode more than 24 hours. Continues to be on mechanical ventilator, 30% FiO2. Noted to have bilateral crackles and significant congestion on auscultation, also has bilateral edema. We will start Lasix 40 mg IV x 1. Hemoglobin is stable, 8.7 today compared to 6.6 yesterday after transfusion of 2 units of PRBC. Lactic acidosis has resolved. Blood pressure continues to be on softer side, we will Blood and urine culture grew Klebsiella pneumonia, sensitive to Rocephin. We will de-escalate antibiotics to Rocephin 2 g IV daily. WBC count has also improved from 52.5 yesterday to 30.9 today. Noted to have low iron level, we will hold off on iron therapy with ongoing bacteremia. Echocardiography showed normal left ventricular size and function with ejection fraction 60 to 65%. Awaiting next set of blood culture. Yu Patel MD
[2024-09-14] MEDS: FUROSEMIDE INJ 10 MG/ML 4ML VIAL 40 MG IVP (13:29)
[2024-09-14] MEDS: ENOXAPARIN SOD INJ 40 MG/0.4 ML SYRINGE SC (13:30)
[2024-09-14] MEDS: INSULIN LISPRO (AdmeLOG) 1 UNIT/0.01 ML UNIT SC (17:34)
[2024-09-14] MEDS: ATORVASTATIN CALCIUM 20 MG TABLET 40 MG GT (21:17)
[2024-09-15] VITALS (13 sets, daily range): BP systolic 123–150; BP diastolic 76–90; PULSE 79–100; RESP 20–37; TEMP 36.2–37.7; O2SAT 95–99; BMI 37.2
[2024-09-15] MEDS: Artificial Tears 225 DROP/15 ML BTL BOTH EYES ×3 (05:13→21:09)
[2024-09-15] MEDS: VALPROIC ACID SYRUP 250 MG/5 ML UDC 500 MG PO ×3 (05:13→21:09)
[2024-09-15 06:00] LABS: Basophils # (Auto) 0.1 Thou/mm3 (0.0-0.2); Basophils % (Auto) 1 % (0-2.5); Eosinophils # (Auto) 0.2 Thou/mm3 (0.0-0.5); Eosinophils % (Auto) 1 % (0-10); Hematocrit 27.2 % (36.0-46.0); Immature Granulocytes % (Auto) 4 % (0-0); Immature Granulocytes Auto 0.62 Thou/mm3 (0.00-0.00); Lymphocytes # (Auto) 1.9 Thou/mm3 (1.0-4.8); Lymphocytes % (Auto) 11 % (10-50); Mean Corpuscular Hemoglobin 28.9 pg (25.0-35.0); Mean Corpuscular Volume 90 fL (80-100); Monocytes # (Auto) 2.4 Thou/mm3 (0.0-0.8); Monocytes % (Auto) 13 % (0-12); Neutrophils # (Auto) 12.5 Thou/mm3 (1.8-7.7); Neutrophils % (Auto) 71 % (37-80); Nucleated Red Blood Cell # 0.11 Thou/mm3 (0.00-0.00); Nucleated Red Blood Cell % 1 /100 WBC (0); Platelet Count 354 Thou/mm3 (140-440); RDW Standard Deviation 60.5 fL (36.4-46.3); Red Blood Count 3.01 Miln/mm3 (4.00-5.20); White Blood Count 17.8 Thou/mm3 (3.6-11.0)
[2024-09-15 06:03] LABS: Hemoglobin 8.7 g/dL (12.0-16.0)
[2024-09-15 06:51] LABS: Alanine Aminotransferase 15 U/L (10-49); Albumin, Serum 3.2 gm/dL (3.4-4.8); Albumin/Globulin Ratio 1.1 (1.2-2.2); Alkaline Phosphatase 74 U/L (46-116); Anion Gap 9 (7-16); Aspartate Amino Transferase 35 U/L (0-34); BUN/Creatinine Ratio 34 Ratio (12-20); Bilirubin,Total < 0.2 mg/dL (0.3-1.2); Blood Urea Nitrogen 24 mg/dL (9-23); Calcium 8.3 mg/dL (8.3-10.6); Calcium (Corrected) 8.9 mg/dL (8.5-10.1); Carbon Dioxide 31.5 mMol/L (20.0-31.0); Chloride 102 mMol/L (98-107); Creatinine (Component) 0.7 mg/dL (0.6-1.3); Estimated Creatinine Clearance 76.1 mL/min (>60); Globulin 2.8 gm/dL (2.3-3.5); Glucose 128 mg/dL (74-106); Osmolality,Calculated 289 (275-295); Potassium 3.6 mMol/L (3.4-5.1); Sodium 142 mMol/L (136-145); eGFR > 60 See Note
--- NOTE | 2024-09-15 09:20 | ESDS_ITS ---
Planned Discharge Date 09/15/24 DS: Providers Provider Date of admission: 09/12/24 16:26 Primary care physician: Lalo Silverio MD Admitting Provider: Yu Patel MD Attending Provider on Admission: Yu Patel MD Consults: 09/12/24 17:19 Referral Registered Dietitian Routine Comment: Instructions: Patient is nonverbal, trached, and PEG coming from subacute facility. Due to fever and UTI. Would like assistance in resuming PEG tube feeds. Thank you 09/13/24 11:19 Consult to Infectious Diseases Routine Comment: Consulting Provider: Pilo Gates Attending Provider on DC: Yu Patel MD Discharging Provider: Yu Patel MD DS: Diagnosis Problem List Completed Was Problem List Reviewed/Reconciled?: Yes Hospital Course Hospital Course Hospital course: Reason for hospitalization: Klebsiella bacteremia and UTI Patient is a 69-year-old female with past medical history significant for no nverbal, trach/PEG, epilepsy, hypertension, hyperlipidemia, and diabetes mellitus who presented to [facility] ED on 09/12/24 due to fever. Patient was brought from her subacute facility in the hospital after found to have a high-grade fever. Here patient's fever was noted to be 103 with chills and WBC 25. In ED she was tachycardia 111, elevated lactic acid 3.5, Pro-Man elevated 0.97, UA positive for UTI with leukocyte esterase WBC 326. found to have 4/4 SIRS criteria and was evaluated for sepsis. However, based upon further work-up, sepsis was ruled out as there was no evidence of end organ damage. Patient was admited for Klebsiella bacteremia and UTI. She was started on IV Zosyn and IV fluids. Next day antibiotics were broadened with Vancomycin due to overnight fever. Blood and urine cultures grew Klebsiella with sensitivity to ceftriaxone. We descelated and patient remained afebrile. Echo was negative for any valvular vegetations, EF 60-65%. Labs also showed anemia wth Hb 6.0 with improvement to 8.7 s/p two untis prbc. Patient is now in stable condition and ready for discharge. Recommendations were given as below. Discharge Recommendations: Continue taking Cefuroxime 500mg BID for treatment of UTI for total 14 days, through PEG tube. Resume previous medications. Follow up with PCP in 1-2 weeks. Return to ED if symptoms worsen. Hospital Diagnoses: #Klebsiella bacteremia #Klebsiella UTI #PEG tube #Type 2 Diabetes mellitus-controlled #History of seizures #HLD #HTN #Tracheostomy The patient's management plan was discussed with my attending physician Dr. Patel. Rabia Moore MD, PGY-1 Time Spent with Patient Time attestation: Total time spent providing and/or coordinating discharge services: Time spent: Greater than 30 minutes Exam Vital Signs Temp Pulse Resp BP Pulse Ox O2 Del Method FiO2 99.8 F 94 26 H 144/76 H 98 Mechanical Ventilation 30 09/15/24 08:00 09/15/24 08:00 09/15/24 08:00 09/15/24 08:00 09/15/24 08:00 09/15/24 08:00 09/15/24 08:00 Narrative Exam General: Elderly female, No acute distress, eyes open HEENT: NCAT, No JVD noted. Mucosa dry. Pupils are equal and reactive to light bilaterally, tracheostomy in place Cardiovascular: Normal S1 and S2. Regular rate and rhythm. Respiratory: mild congestion Abdomen: Soft, nontender, not distended, normal bowel sounds. PEG tube in place Skin: Warm to touch, dry, no rashes noted Musculoskeletal: No gross injuries. Does not move extremities on command. +2 pitting edema bilaterally. Neuro: No focal neuro deficits. Discharge Plan Plan Patient Disposition: Xfer [facility] Acute Patient condition on transfer: Stable Prescriptions/Referrals Prescriptions/Med Rec: New cefuroxime axetil 500 mg tablet 500 mg PO BID 14 Days Qty: 28 0RF Continued aspirin 81 mg Tablet,Chewable 81 mg G-tube QDAY Patient Comments: For DVT prevention Rx Instructions: Give one tab daily PGT for DVT prevention atorvastatin 20 mg Tablet 40 mg G-tube HS Patient Comments: For Hyperlipidemia Gvoke 1 mg/0.2 mL Solution 1 mg IM Q15MIN PRN (Reason: Hypoglycemia) Patient Comments: for BG <70 and no IV access bisacodyl [Dulcolax (bisacodyl)] 10 mg Suppository 10 mg [place] PRN PRN (Reason: No BM Per Bowel Management Protocol) Rx Instructions: Administer as needed on 6th shift, if MOM ineffective. polyethylene glycol 3350 17 gram Powder In Packet 17 g G-tube PRN PRN (Reason: No BM Per Bowel Management Protocol) Patient Comments: Administer as needed if 2nd round bowel protocol ineffective. Rx Instructions: Mix with 4oz of water before giving. Hold tube feeding for 30 minutes after administration. Notify provider if no results from Miralax. magnesium hydroxide [Milk of Magnesia] 400 mg/5 mL Suspension 30 ml G-tube PRN PRN (Reason: Constipation) Rx Instructions: CONC: 400MG/5ML Fleet Enema 19-7 gram/118 mL Enema 133 ml [place] PRN PRN (Reason: No BM Per Bowel Management Protocol) Patient Comments: If Dulcolax is ineffective on 3rd day / 7th shift, give Fleets enema per Bowel Management Protocol. Notify MD if no results from Enema. acetaminophen 325 mg Tablet 650 mg G-tube Q6HR PRN (Reason: Pain Scale 1-3 (Mild) Rx Instructions: Do not exceed 3gm a day from any source in 24 hours. levetiracetam 100 mg/mL Solution 1,000 mg G-tube BID Rx Instructions: give 19mP=4008mp for seizures cholecalciferol (vitamin D3) 25 mcg (1,000 unit) Tablet 25 mcg G-tube BID Patient Comments: Supplement artificial tear([id number]) [GenTeal Tears Moderate] 0.1-0.3-0.2 % Drops 2 drp Both eyes Q8HR Rx Instructions: FOR DRYNESS guaifenesin [Taylor-Tussin] 100 mg/5 mL Liquid 300 mg G-tube Q6HR PRN (Reason: Cough) Rx Instructions: Conc: 100MG/5ML- give 300mg/15ml insulin lispro 100 unit/mL Insulin Pen See Rx Instructions SCi ,18 Patient Comments: For DM 2 Rx Instructions: Per Sliding Scale Lispro Insulin Sliding Scale coverage : 0-150= 0 units, 151-200= 2 units, 201-250= 4 units, 251-300= 6 units, 301-350= 8 units, 351-400= 10 units, > 400= 12 units and call MD. ipratropium-albuterol 0.5 mg-3 mg(2.5 mg base)/3 mL Solution For Nebulization 3 ml INH Q2HR PRN (Reason: Wheezing) enoxaparin 40 mg/0.4 mL Syringe 40 mg SCi QDAY Patient Comments: for DVT prevention x 3 months buspirone 10 mg Tablet 10 mg G-tube BID Patient Comments: For anxiety as manifested by rejection of care Rx Instructions: Continue Buspirone 10mg BID x30 days then re-evaluate with MD. valproic acid (as sodium salt) 250 mg/5 mL Solution 500 mg G-tube TID Patient Comments: for seizures Rx Instructions: Valproic acid 250/5ml chelsey. Give 500mg (10ml) PGT for seizures acetaminophen 325 mg Tablet 650 mg G-tube Q4HR PRN (Reason: FEVER > 101) Patient Comments: Do not exceed 3gm of Tylenol in 24Hr. from all sources x7 days re-eval Rx Instructions: 650mg Q4H PGT as needed for fever No Action bisacodyl [Dulcolax (bisacodyl)] 10 mg suppository 10 mg [place] PRN PRN (Reason: No BM Per Bowel Management Protocol) 365 Days 0RF Rx Instructions: Administer as needed on 6th shift, if MOM ineffective. polyethylene glycol 3350 17 gram powder in packet 17 g G-tube PRN PRN (Reason: No BM Per Bowel Management Protocol) 365 Days 0RF Label Comments: Administer as needed if 2nd round bowel protocol ineffective. Rx Instructions: Mix with 4oz of water before giving. Hold tube feeding for 30 minutes after administration. Notify provider if no results from Miralax. magnesium hydroxide [Milk of Magnesia] 400 mg/5 mL suspension 30 ml G-tube PRN PRN (Reason: Constipation) 365 Days 0RF Rx Instructions: CONC: 400MG/5ML Fleet Enema 19-7 gram/118 mL enema 133 ml [place] PRN PRN (Reason: No BM Per Bowel Management Protocol) 365 Days 0RF Label Comments: If Dulcolax is ineffective on 3rd day / 7th shift, give Fleets enema per Bowel Management Protocol. Notify MD if no results from Enema. cefuroxime axetil 250 mg tablet 500 mg G-tube BID 14 Days Qty: 28 0RF acetaminophen 325 mg tablet 650 mg G-tube Q6HR PRN (Reason: PAIN) 30 Days 0RF Rx Instructions: not to exceed 3 gms of tylenol in 24 hours from all other sources acetaminophen 325 mg tablet 650 mg G-tube Q4HR PRN (Reason: Fever > 100.4) 7 Days 0RF Rx Instructions: not to exceed 3 gms of tylenol in 24 hours from all other sources x 7 days artificial tear([id number]) [GenTeal Tears Moderate] 0.1-0.3-0.2 % drops 2 drp Both eyes Q8HR 30 Days 0RF Rx Instructions: FOR DRYNESS aspirin 81 mg tablet,chewable 81 mg G-tube QDAY 30 Days Qty: 30 0RF atorvastatin 20 mg tablet 20 mg G-tube HS 30 Days Qty: 30 0RF buspirone 10 mg tablet 10 mg G-tube BID 30 Days Qty: 60 0RF Label Comments: AMB sadness, refusal of care Rx Instructions: x 30 days, re-eval cholecalciferol (vitamin D3) 25 mcg (1,000 unit) tablet 25 mcg PO BID 30 Days Qty: 30 0RF insulin lispro 100 unit/mL insulin pen See Rx Instructions SCi Q6HR PRN (Reason: DM) 30 Days Qty: 15 0RF Rx Instructions: Per Sliding Scale as follows: 0-150= 0 units; 151-200= 2 units; 201-250= 4 units; 251-300= 6 units; 301-350= 8 units; 351-400= 10 units; >400= 12 units; and call levetiracetam 100 mg/mL solution 1,000 mg G-tube BID 30 Days Qty: 300 0RF Rx Instructions: conc 100mg/ml solution give 10 ml valproic acid (as sodium salt) 250 mg/5 mL solution 500 mg G-tube BID 30 Days Qty: 300 0RF Rx Instructions: conc 250 mg/5 ml solution give 10 ml ipratropium-albuterol 0.5 mg-3 mg(2.5 mg base)/3 mL solution for nebulization 3 ml INH Q2HR PRN (Reason: Wheezing/sob) 30 Days 0RF enoxaparin 40 mg/0.4 mL syringe 40 mg SCi QDAY 90 Days Qty: 36 0RF Rx Instructions: x 3 months, re-eval guaifenesin [Taylor-Tussin] 100 mg/5 mL liquid 300 mg G-tube Q6HR PRN (Reason: Cough) 30 Days 0RF Rx Instructions: Conc: 100MG/5ML give 15 ml Gvoke 1mg/0.2 Ml 1 mg IM Q15MIN PRN (Reason: Hypocalcemia) 30 Days Qty: 1 0RF Label Comments: for blood glucose <70 and no IV access Ear Wax Removal Drops 6.5 % drops 5 drp otic (ear) Q61D 30 Days 0RF Label Comments: 5 drops per ear at first med pass of shift. Then irrigate ears with NS at next med pass of each shift x 4 days for wax build up. Ear Wax Removal Drops 6.5 % drops 5 drp otic (ear) Q61D 30 Days 0RF Rx Instructions: 5 drops per ear at first med pass of shift. Then irrigate ears with NS at next med pass of each shift x 4 days for wax build up. *Start on the of the month, every two months. Ear Wax Removal Drops 6.5 % drops 5 drp otic (ear) Q61D 30 Days 0RF Label Comments: 5 drops per ear at first med pass of shift. Then irrigate ears with NS at next med pass of each shift x 4 days for wax build up. Ear Wax Removal Drops 6.5 % drops 5 drp otic (ear) Q61D 30 Days 0RF Rx Instructions: 5 drops per ear at first med pass of shift. Then irrigate ears with NS at next med pass of each shift x 4 days for wax build up. *Start on the of the month, every two months. Ear Wax Removal Drops 6.5 % drops 5 drp otic (ear) Q61D 30 Days 0RF Label Comments: 5 drops per ear at first med pass of shift. Then irrigate ears with NS at next med pass of each shift x 4 days for wax build up. Ear Wax Removal Drops 6.5 % drops 5 drp otic (ear) Q61D 30 Days 0RF Rx Instructions: 5 drops per ear at first med pass of shift. Then irrigate ears with NS at next med pass of each shift x 4 days for wax build up. *Start on the of the month, every two months. Ear Wax Removal Drops 6.5 % drops 5 drp otic (ear) Q61D 30 Days 0RF Label Comments: 5 drops per ear at first med pass of shift. Then irrigate ears with NS at next med pass of each shift x 4 days for wax build up. Ear Wax Removal Drops 6.5 % drops 5 drp otic (ear) Q61D 30 Days 0RF Label Comments: 5 drops per ear at first med pass of shift. Then irrigate ears with NS at next med pass of each shift x 4 days for wax build up. Referrals: Lalo Silverio MD [Primary Care Provider] - Patient/Caregiver Discharge Instructions Other Discharge Activity Instructions:: Continue taking Cefuroxime 500mg BID for treatment of UTI for total 14 days, through PEG tube. Resume previous medications. Follow up with PCP in 1-2 weeks. Return to ED if symptoms worsen. Education Materials: Urinary Tract Infections in Women, ED FUO Adult Print Language: Italian Stand Alone Forms: Johana Award Info., Patient Portal Info Letter Discharge Order Discharge Orders: Discharge (Routine); Ordered 09/16/24 Ordered By: Laxmi Yoo Quality Discharge Quality Measures VTE prophylaxis Attestestation MD Attestation I attest that I was physically present for the evaluation, physical examination, lab and imaging review of the patient with the residents. I discussed the case with the residents and agree with the findings and plans of care as documented above. Yu Patel MD
[2024-09-15] MEDS: POTASSIUM CHLORIDE 10% 20 MEQ/15 ML UDC 40 MEQ GT (09:22)
[2024-09-15] MEDS: levETIRAcetam LIQD 500 MG/5 ML UDC 1000 MG GT ×2 (09:22→21:09)
[2024-09-15] MEDS: LOSARTAN POTASSIUM 25 MG TABLET 50 MG GT (09:23)
[2024-09-15] MEDS: ASPIRIN 81 MG CHEW GT (09:23)
[2024-09-15] MEDS: ENOXAPARIN SOD INJ 40 MG/0.4 ML SYRINGE SC (09:23)
[2024-09-15] MEDS: cefTRIAXone/D5w 2gm 2 GM/50 ML BAG IV (09:23)
[2024-09-15] MEDS: BusPIRone HCL 5 MG TABLET 10 MG GT ×2 (09:23→21:09)
--- NOTE | 2024-09-15 15:13 | ESPR_ITS ---
Documentation for date of: 09/15/24 Subjective Subjective Interval history: Patient examined at bedside. No events overnight. Vitals are stable with no reported fevers. Patient was sleeping. Leukocytosis downtrending 18, hemoglobin stable 8.7 since receiving 2 units PRBC. CMP unremarkable. Auscultated lungs, congestion improved with dose of Lasix yesterday. Will give one more dose Lasix IV 40 x 1 She still has lower extremity pitting edema but appears to be chronic in due to immobility. Continue ceftriaxone 2 g daily for treatment of Klebsiella bacteremia and Klebsiella UTI. Repeat blood cultures are pending, echo has been negative for any valvular vegetations. Anticipate discharge in tomorrow with PO cefuroxime. Exam Vital Signs Temp Pulse Resp BP Pulse Ox O2 Del Method FiO2 98.2 F 82 24 H 123/90 H 98 Mechanical Ventilation 30 09/15/24 12:00 09/15/24 14:38 09/15/24 12:00 09/15/24 12:00 09/15/24 14:38 09/15/24 12:00 09/15/24 14:38 Narrative Exam General: Elderly female, No acute distress, eyes open HEENT: NCAT, No JVD noted. Mucosa dry. Pupils are equal and reactive to light bilaterally, tracheostomy in place Cardiovascular: Normal S1 and S2. Regular rate and rhythm. Respiratory: congestion, fine crackles Abdomen: Soft, nontender, not distended, normal bowel sounds. PEG tube in place Skin: Warm to touch, dry, no rashes noted Musculoskeletal: No gross injuries. Does not move extremities on command. +2 pitting edema bilaterally. Neuro: No focal neuro deficits. Objective Labs 09/15/24 05:14 09/15/24 05:14 Labs: Laboratory Results - last 24 hr 09/15/24 05:14 WBC 17.8 H D RBC 3.01 L Hgb 8.7 L Hct 27.2 L MCV 90 MCH 28.9 MCHC 32.0 RDW Std Deviation 60.5 H Plt Count 354 D Neut % (Auto) 71 Lymph % (Auto) 11 Winston % (Auto) 13 H Eos % (Auto) 1 Baso % (Auto) 1 Neut # (Auto) 12.5 H Lymph # (Auto) 1.9 Winston # (Auto) 2.4 H Eos # (Auto) 0.2 Baso # (Auto) 0.1 Immature Gran # (Auto) 0.62 H Absolute Nucleated RBC 0.11 H Immature Gran % 4 H Nucleated RBC % 1 H Sodium 142 Potassium 3.6 D Chloride 102 Carbon Dioxide 31.5 H Anion Gap 9 BUN 24 H Creatinine 0.7 Estim Creat Clear Calc 76.1 eGFR > 60 BUN/Creatinine Ratio 34 H Glucose 128 H Calculated Osmolality 289 Calcium 8.3 Corrected Calcium 8.9 Total Bilirubin < 0.2 L AST 35 H ALT 15 Alkaline Phosphatase 74 Total Protein 6.0 Albumin 3.2 L Globulin 2.8 Albumin/Globulin Ratio 1.1 L ABG Interpretation ABG results: 09/12/24 19:04 ABG pH 7.43 ABG pCO2 41 ABG pO2 62 L ABG HCO3 27 H ABG O2 Saturation 93 ABG Base Excess 3 Quality Measures Quality Measures none Advance care planning discussed with:: other Assessment & Plan Assessment Current Active Medications: Generic Name Dose Route Start Last Admin Trade Name Freq PRN Reason Stop Dose Admin Acetaminophen 650 mg 09/12/24 16:31 Acetaminophen 325 Mg Tablet PO 10/12/24 16:30 Q6HR PRN Pain Scale 1-3 (Mild Acetaminophen 650 mg 09/12/24 16:31 09/12/24 23:42 Acetaminophen 325 Mg Tablet PO 10/12/24 16:30 650 mg Q4HR PRN Administration FEVER > 100.3 Albuterol/Ipratropium 3 ml 09/12/24 16:31 Albuterol/Ipratropium (Duoneb) Rt Ericka 3 Ml Nebu INH 10/12/24 16:30 Q2HR PRN Wheezing Artificial Tears 2 drop 09/12/24 22:00 09/15/24 14:46 Artificial Tears 225 Drop/15 Ml Btl BOTH EYES 10/12/24 21:59 2 drop Q8HR JAYMIE Administration Aspirin 81 mg 09/13/24 09:00 09/15/24 09:23 Aspirin 81 Mg Chew GT 10/13/24 08:59 81 mg QDAY JAYMIE Administration Atorvastatin Calcium 40 mg 09/12/24 21:00 09/14/24 21:17 Atorvastatin Calcium 20 Mg Tablet GT 10/12/24 20:59 40 mg HS JAYMIE Administration Bisacodyl 10 mg 09/15/24 07:49 Bisacodyl 10 Mg Supp NV 10/12/24 16:30 DAILY PRN no bm per bowel managment pro Protocol Buspirone HCl 10 mg 09/12/24 21:00 09/15/24 09:23 Buspirone Hcl 5 Mg Tablet GT 10/12/24 20:59 10 mg BID JAYMIE Administration Dextrose 25 ml 09/12/24 17:02 Dextrose 50%-Water Inj 50 Ml Syringe IV 10/12/24 17:01 Q15MIN PRN BG 50-70 responsive npo pt Dextrose 50 ml 09/12/24 17:02 Dextrose 50%-Water Inj 50 Ml Syringe IV 10/12/24 17:01 Q15MIN PRN BG <50 OR BG <70 & pt unresponsive Enoxaparin Sodium 40 mg 09/14/24 13:25 09/15/24 09:23 Enoxaparin Sod Inj 40 Mg/0.4 Ml Syringe SC 09/28/24 13:24 40 mg QDAY JAYMIE Administration Glucagon 1 mg 09/12/24 17:02 Glucagon Inj 1 Mg Vial IM Q15MIN PRN BG <70, and no IV access Guaifenesin 300 mg 09/12/24 16:31 Guaifenesin Syrup 200 Mg/10 Ml Udc GT 10/12/24 16:30 Q6HR PRN Cough Protocol Ceftriaxone Sodium/Dextrose 2 gm in 50 mls @ 100 mls/hr 09/14/24 10:00 09/15/24 09:23 Rocephin/D5w 2gm IV 09/21/24 09:47 100 mls/hr QDAY JAYMIE Administration Insulin Human Lispro 0 unit 09/15/24 00:00 09/15/24 05:14 Insulin Lispro (Admelog) 1 Unit/0.01 Ml Unit SC 10/15/24 00:00 Not Given Q6HR JAYMIE Protocol Levetiracetam 1,000 mg 09/12/24 21:00 09/15/24 09:22 Levetiracetam Liqd 500 Mg/5 Ml Udc GT 10/12/24 20:59 1,000 mg BID JAYMIE Administration Losartan Potassium 50 mg 09/12/24 17:15 09/15/24 09:23 Losartan Potassium 25 Mg Tablet GT 10/12/24 17:14 50 mg DAILY JAYMIE Administration Magnesium Hydroxide 30 ml 09/12/24 16:31 Milk Of Magnesia Susp 30 Ml Udc GT 10/12/24 16:30 QDAY PRN CONSTIPATION Protocol Ondansetron HCl 4 mg 09/12/24 16:26 Ondansetron Inj 2 Mg/Ml Inj 2 Ml IVP 10/12/24 16:25 Q6H PRN NAUSEA OR VOMITING Protocol Polyethylene Glycol 17 gm 09/12/24 16:31 Polyethylene Glycol 17 Gm Packet GT 10/12/24 16:30 QDAY PRN CONSTIPATION Protocol Valproic Acid 500 mg 09/12/24 22:00 09/15/24 14:46 Valproic Acid Syrup 250 Mg/5 Ml Udc PO 10/12/24 21:59 500 mg TID JAYMIE Administration Plan Patient is a 69-year-old female with past medical history significant for nonverbal, trach/PEG, epilepsy, hypertension, hyperlipidemia, frequent UTIs with previous labs growing Pseudomonas, and diabetes mellitus who presented to the ED on 09/12/24 due to fever. Patient was brought from her subacute facility in the hospital after found to have a high-grade fever. Patient to be admitted for possible Pseudomonas UTI and started on IV antibiotics. #Klebsiella bacteremia #Klebsiella UTI Patient came in from subacute facility after finding high fevers. In ED reported 103.5. She has Hobson catheter placed. Previous admission urine cultures positive for Pseudomonas. Sensitivity to Zosyn. Patient came in and found to have 4/4 SIRS criteria and was evaluated for sepsis. However, based upon further work-up, sepsis was ruled out as there was no evidence of end organ damage. However still high suspicion of progressing to sepsis with elevated lactic acid 2.5, Pro-Man elevated 0.97. Blood culture 2 out of 2 preliminary revealed GNR Echo 09/13/24--negative for vegitations, Normal LV size and function. Estimated EF is 60 to 65%. -De-escalate antibiotics to IV ceftriaxone 2 g daily (09/14- - repeat blood culture pending - ID is on board, will follow-up with recommendations #PEG tube Resume feeds as was from subacute facility. -dietary team consulted -tolerating feeds #Type 2 Diabetes mellitus-controlled 07/01/2024 A1c 5.7, glucose on admission 168. ? Continue with sliding scale insulin ? Hypoglycemic protocol if needed #History of seizures ? Resume patient's home Keppra and valproic acid via G-tube #HLD #HTN - Atorvastatin 40 mg at bedtime ? Losartan 50 mg daily ? Aspirin 81 mg daily #Tracheostomy ? Continue with airway suctioning as needed and tracheostomy maintenance with RT Health maintenance: Dispo: telemetry, klebsiella bacteremia FEN: PEG tube feeds DVT prophylaxis: Lovenox CODE STATUS: DNR Patient care was discussed with attending physician Dr. Amanda Moore, PGY1 Attending Provider Attestation/Addendum I attest that I was physically present for the evaluation, physical examination, lab and imaging review of the patient with the residents. I discussed the case with the residents and agree with the findings and plans of care as documented above. At bedside today, patient appears comfortable, saturating well on ventilator, 30 FiO2. Rest of the vitals are stable. WBC count has been improving, 17.8 today from 30.9 yesterday. Hemoglobin remained stable. Potassium level is 3.6 this morning, repleted accordingly. Blood culture from 09/13/2024 has been negative. Continues to be on IV Rocephin. Stable medically, awaiting placement. Yu Patel MD
[2024-09-15] MEDS: FUROSEMIDE INJ 10 MG/ML 4ML VIAL 40 MG IVP (16:56)
[2024-09-15] MEDS: ATORVASTATIN CALCIUM 20 MG TABLET 40 MG GT (21:09)
[2024-09-16] VITALS (7 sets, daily range): BP systolic 110–140; BP diastolic 68–75; PULSE 82–90; RESP 20–30; TEMP 36.1–36.9; O2SAT 97–98; BMI 37.2
[2024-09-16] MEDS: VALPROIC ACID SYRUP 250 MG/5 ML UDC 500 MG PO (05:14)
[2024-09-16] MEDS: Artificial Tears 225 DROP/15 ML BTL BOTH EYES (05:14)
[2024-09-16 07:59] LABS: Basophils # (Auto) 0.1 Thou/mm3 (0.0-0.2); Basophils % (Auto) 1 % (0-2.5); Eosinophils # (Auto) 0.4 Thou/mm3 (0.0-0.5); Eosinophils % (Auto) 2 % (0-10); Immature Granulocytes % (Auto) 5 % (0-0); Immature Granulocytes Auto 0.89 Thou/mm3 (0.00-0.00); Lymphocytes # (Auto) 2.2 Thou/mm3 (1.0-4.8); Lymphocytes % (Auto) 13 % (10-50); Mean Corpuscular HGB Conc 32.3 g/dl (31.0-37.0); Mean Corpuscular Hemoglobin 28.7 pg (25.0-35.0); Mean Corpuscular Volume 89 fL (80-100); Monocytes # (Auto) 2.1 Thou/mm3 (0.0-0.8); Monocytes % (Auto) 13 % (0-12); Neutrophils # (Auto) 11.4 Thou/mm3 (1.8-7.7); Neutrophils % (Auto) 67 % (37-80); Nucleated Red Blood Cell # 0.03 Thou/mm3 (0.00-0.00); Nucleated Red Blood Cell % 0 /100 WBC (0); Platelet Count 390 Thou/mm3 (140-440); RDW Standard Deviation 57.4 fL (36.4-46.3); Red Blood Count 3.49 Miln/mm3 (4.00-5.20)
[2024-09-16] MEDS: levETIRAcetam LIQD 500 MG/5 ML UDC 1000 MG GT (08:45)
[2024-09-16] MEDS: ASPIRIN 81 MG CHEW GT (08:45)
[2024-09-16] MEDS: LOSARTAN POTASSIUM 25 MG TABLET 50 MG GT (08:45)
[2024-09-16] MEDS: BusPIRone HCL 5 MG TABLET 10 MG GT (08:46)
[2024-09-16] MEDS: ENOXAPARIN SOD INJ 40 MG/0.4 ML SYRINGE SC (08:47)
[2024-09-16] MEDS: cefTRIAXone/D5w 2gm 2 GM/50 ML BAG IV (08:51)
[2024-09-16 09:00] LABS: Basophils # (Auto) 0.1 Thou/mm3 (0.0-0.2); Basophils % (Auto) 1 % (0-2.5); Eosinophils # (Auto) 0.3 Thou/mm3 (0.0-0.5); Eosinophils % (Auto) 2 % (0-10); Hemoglobin 10.1 g/dL (12.0-16.0); Immature Granulocytes % (Auto) 5 % (0-0); Immature Granulocytes Auto 0.68 Thou/mm3 (0.00-0.00); Lymphocytes % (Auto) 15 % (10-50); Mean Corpuscular HGB Conc 32.6 g/dl (31.0-37.0); Mean Corpuscular Hemoglobin 28.8 pg (25.0-35.0); Mean Corpuscular Volume 88 fL (80-100); Monocytes # (Auto) 1.8 Thou/mm3 (0.0-0.8); Monocytes % (Auto) 13 % (0-12); Neutrophils # (Auto) 8.9 Thou/mm3 (1.8-7.7); Neutrophils % (Auto) 65 % (37-80); Nucleated Red Blood Cell # 0.02 Thou/mm3 (0.00-0.00); Nucleated Red Blood Cell % 0 /100 WBC (0); Platelet Count 299 Thou/mm3 (140-440); RDW Standard Deviation 56.9 fL (36.4-46.3); Red Blood Count 3.51 Miln/mm3 (4.00-5.20); White Blood Count 13.8 Thou/mm3 (3.6-11.0)
--- NOTE | 2024-09-16 09:01 | ESPR_ITS ---
Subjective Subjective Interval history: ok to finish rx with keflex per gt thru , so can have keflex for 1d of another dose of rocephin iv or im to finish rx bacteremia clinically better. no juan obstruction. some mild bilateral hydro noted on imaging w/o obstruction or stone. u/s and ct done Exam Vital Signs Temp Pulse Resp BP Pulse Ox O2 Del Method FiO2 98.2 F 82 23 H 122/74 98 Mechanical Ventilation 30 09/16/24 08:00 09/16/24 08:45 09/16/24 08:00 09/16/24 08:45 09/16/24 08:00 09/16/24 08:00 09/16/24 06:47 Narrative Exam on vent. fiO2 29% not bad. trach, vent enciso all noted. Objective - Internal Medicine Labs 09/16/24 04:59 09/15/24 05:14 Labs: Laboratory Results - last 24 hr 09/16/24 04:59 WBC 17.0 H RBC 3.49 L Hgb 10.0 L Hct 31.0 L MCV 89 MCH 28.7 MCHC 32.3 RDW Std Deviation 57.4 H Plt Count 390 D Neut % (Auto) 67 Lymph % (Auto) 13 [place]duffie % (Auto) 13 H Eos % (Auto) 2 Baso % (Auto) 1 Neut # (Auto) 11.4 H Lymph # (Auto) 2.2 [place]duffie # (Auto) 2.1 H Eos # (Auto) 0.4 Baso # (Auto) 0.1 Immature Gran # (Auto) 0.89 H Absolute Nucleated RBC 0.03 H Immature Gran % 5 H Nucleated RBC % 0 ABG Interpretation ABG results: 09/12/24 19:04 ABG pH 7.43 ABG pCO2 41 ABG pO2 62 L ABG HCO3 27 H ABG O2 Saturation 93 ABG Base Excess 3 Assessment & Plan A&P Narrative leukemoid picture improved neg cxr 09/12 noted abx can be changed to keflex for remainder of rx or give one more dose rocephin 1 gm iv . prior rx ok. looks like bacteremic from urine, has some hydro w/o obstruction noted on imaging d not see a prior urology eval but am not sure what they would do for her w/o a stone and with a chronic enciso. Time Spent With Patient Time: Total time spent is greater than 50% in coordination of care (as documented) at patient's floor/unit and/or counseling patient:
--- NOTE | 2024-09-16 09:30 | PC.SS ---
Update: Plan is to d/c the patient today back to sub-acute unit.
--- NOTE | 2024-09-16 10:50 | PC.SS ---
PASSR completed. ?Level II Mental Health Evaluation referral is not required due to a Categorical Condition.?Online closure is pending.
--- NOTE | 2024-09-16 10:51 | PC.SS ---
BUSINESS OPERATIONS SPECIALIST confirmed with resident that Dr. Silverio has been notified of patient meeting medical clearance for transition to Sub-Acute unit. BUSINESS OPERATIONS SPECIALIST contacted Sub-Acute nursing staff to provide update.
--- NOTE | 2024-09-16 10:52 | PC.SS ---
RESOURCE ROOM SPECIAL EDUCATION TEACHER left voicemail for sub-acute social media developer to provide update for plan to transition the patient back to Sub-Acute today. RESOURCE ROOM SPECIAL EDUCATION TEACHER informed S.W. that PASSR completed, due to categorical condition awaiting on line closure. RESOURCE ROOM SPECIAL EDUCATION TEACHER requesting confirmation from Sub-Acute S.W. if on line closure required prior to patient returning to Sub-Acute. Response is pending.
--- NOTE | 2024-09-16 11:06 | PC.SS ---
Updated clinical documentation submitted to Sub-Acute via [email or web address] platform.
--- NOTE | 2024-09-16 11:46 | ESCONSULT_ITS ---
RE: YOANDY SANDOVAL : 1955 DATE OF CONSULTATION: 09/16/2024 REFERRING PHYSICIAN: Yu Patel MD REASON FOR CONSULTATION: Bacteremia, presumably from the urine. HISTORY OF PRESENT ILLNESS: The patient is a 69-year-old with some bilateral hydronephrosis on imaging, but no stones. She has no history of stones. She has some gallstones though and imaging of her gallbladder is not normal. She has done well on a variety of antimicrobials including meropenem, which she had for a few days, but then it was changed to Rocephin when the sensitivities came out and blood cultures were positive for Klebsiella. The same germ was found in the urine. Her urinary white count looks to be similar throughout her stay. MEDICAL PROBLEMS: Include prior stroke, chronic Hobson, and respiratory failure. SURGICAL HISTORY: Includes prior tracheostomy as well as chronic Hobson. ALLERGIES: NOTED, WITH CODEINE PRIMARILY. IMMUNIZATIONS: Unavailable. FAMILY HISTORY: Unavailable. SOCIAL HISTORY: Unavailable, although apparently she live independently according to records, but may be at a rehab center at the moment. She appears to have had repeated urinary tract infections in the past. PE: benign. on vent. not that interactive. prior cva noted. ASSESSMENT: Recurrent urinary tract infection, different germs at various times. RECOMMENDATIONS: I am going to recommend that she receive one shot of Rocephin tomorrow or change her to Keflex for 24 hrs, which can be given through her G-tube. If she takes orally that is fine too. I will check on her again on Monday if she remains, but she may go return to the detention at your discretion DT: 09:12:04 TT: 10:24:00 Ref: [id number] - TID: [id number] [facility]
--- NOTE | 2024-09-16 11:46 | PC.SS ---
ACCOUNT ADJUSTER confirmed with Sub-Acute S.W. that patient can return to Sub-Acute with PASSR online closure pending.
--- NOTE | 2024-09-16 11:50 | PC.SS ---
HAND FRAME SURGICAL ELASTIC KNITTER attempted phone contact with patient's sister, Suzie Ennis ; to provide update that patient will be transitioned to sub-acute today. No response, HAND FRAME SURGICAL ELASTIC KNITTER left voicemail.
[2024-09-16 12:03] LABS: Cocci Serology, IgM Negative (Negative)
--- NOTE | 2024-09-16 15:39 | PC.SS ---
PASSR closed online. Results submitted to Sub-Acute via file exchange.
[2024-09-17 12:38] LABS: Cocci Serology, IgG Negative (Negative)
== END 2024-09-16 12:48 | DRG 690 ==
LOC: SERX 15:33 → SERHOLD 16:39 → S2NX 09-13 02:44
PROVIDERS: Internal Medicine Infectious Disease; Nurse Practitioner Family; Student in an Organized Health Care Education/Training Program; Admitting Provider Student in an Organized Health Care Education/Training Program; Emergency Provider Emergency Medicine; PCP Specialist; Visit Provider Student in an Organized Health Care Education/Training Program
DX: N13.6 Pyonephrosis (principal); Z99.11 Dependence on respirator [ventilator] status; E87.1 Hypo-osmolality and hyponatremia; E87.20 Acidosis, unspecified; G93.1 Anoxic brain damage, not elsewhere classified; J96.11 Chronic respiratory failure with hypoxia; Z66 Do not resuscitate; Z79.4 Long term (current) use of insulin; Z79.82 Long term (current) use of aspirin; Z79.899 Other long term (current) drug therapy; Z87.440 Personal history of urinary (tract) infections; Z93.0 Tracheostomy status; Z93.1 Gastrostomy status; E11.9 Type 2 diabetes mellitus without complications; E78.5 Hyperlipidemia, unspecified; E87.5 Hyperkalemia; G40.909 Epilepsy, unspecified, not intractable, without status epilepticus; I10 Essential (primary) hypertension; D64.9 Anemia, unspecified; K74.60 Unspecified cirrhosis of liver; K80.20 Calculus of gallbladder without cholecystitis without obstruction; Z86.73 Personal history of transient ischemic attack (TIA), and cerebral infarction without residual deficits; Z90.49 Acquired absence of other specified parts of digestive tract; N13.70 Vesicoureteral-reflux, unspecified; Z88.5 Allergy status to narcotic agent; B96.5 Pseudomonas (aeruginosa) (mallei) (pseudomallei) as the cause of diseases classified elsewhere
CPT/HCPCS: 36415; 36600; 71045; 71260; 74177; 76700; 80053; 81001; 82803; 83540; 83550; 83605; 83615; 83690; 83735; 83880; 84100; 84145; 84484; 85014; 85018; 85025; 85610; 85730; 86331; 86635; 86850; 86900; 86901; 86923; 87040; 87077; 87081; 87086; 87186; 87400; 87811; 93005; 93306; 94003; 96361; 96365; 96366; 96367; 96375; 99285; A4314; A4649; J0131; J0696; J1650; J1815; J1938; J2060; J2543; J3370; J7030; J7120; P9016; Q9967; A9270

== ENCOUNTER 2024-09-16 12:53 | Inpatient (IN) | payer MEDICARE, MEDICAID, SELFPAY ==
[2024-09-16 12:53] VITALS: BP 133/74; PULSE 88; RESP 20; TEMP 36.8; O2SAT 97
[2024-09-16 13:50] VITALS: PULSE 96; RESP 19; O2SAT 96
[2024-09-16 14:12] VITALS: BMI 32.5
[2024-09-16 15:11] LABS: Basophils # (Auto) 0.1 Thou/mm3 (0.0-0.2); Basophils % (Auto) 1 % (0-2.5); Eosinophils # (Auto) 0.2 Thou/mm3 (0.0-0.5); Eosinophils % (Auto) 2 % (0-10); Hematocrit 30.6 % (36.0-46.0); Hemoglobin 9.9 g/dL (12.0-16.0); Immature Granulocytes Auto 0.78 Thou/mm3 (0.00-0.00); Lymphocytes # (Auto) 2.2 Thou/mm3 (1.0-4.8); Lymphocytes % (Auto) 15 % (10-50); Mean Corpuscular HGB Conc 32.4 g/dl (31.0-37.0); Mean Corpuscular Hemoglobin 28.8 pg (25.0-35.0); Mean Corpuscular Volume 89 fL (80-100); Monocytes # (Auto) 2.0 Thou/mm3 (0.0-0.8); Monocytes % (Auto) 14 % (0-12); Neutrophils # (Auto) 9.1 Thou/mm3 (1.8-7.7); Neutrophils % (Auto) 63 % (37-80); Nucleated Red Blood Cell # 0.00 Thou/mm3 (0.00-0.00); Nucleated Red Blood Cell % 0 /100 WBC (0); Platelet Count 370 Thou/mm3 (140-440); RDW Standard Deviation 56.4 fL (36.4-46.3); Red Blood Count 3.44 Miln/mm3 (4.00-5.20); White Blood Count 14.3 Thou/mm3 (3.6-11.0)
--- NOTE | 2024-09-16 17:28 | PC.NURSE ---
Admitted a 69 y/o female from [facility] via bed. Resident awake, able to do mouth words at times. On mechanical ventilator, no s/s of respiratory distress noted. No s/s of pain or discomfort. Abdomen soft and non-tender. With F/C patent and intact, draining via gravity bag, no hematuria noted. Totally dependent with ADLs. Resident with admitting order of Cefuroxime 500 mg BID x [address] Silverio made aware.
[2024-09-16 18:00] VITALS: BP 153/71; PULSE 89; RESP 23; TEMP 36.7; O2SAT 96
[2024-09-16 19:20] VITALS: PULSE 95; RESP 19; RESP 21; O2SAT 97
--- NOTE | 2024-09-16 20:30 | PD.SAHP ---
Physical exam Physical Exam Vital signs: Temp Pulse Resp BP Pulse Ox O2 Del Method FiO2 97.2 F 88 22 H 137/69 H 95 Mechanical Ventilation 30 09/17/24 17:46 09/17/24 20:18 09/17/24 20:18 09/17/24 17:46 09/17/24 20:18 09/17/24 17:46 09/17/24 20:18 Narrative: No improvement in mental cognition Constitutional Comments: VSS HEENT Exam Comments: NAD Neck Exam Comments: NAD Chest/Breast/Axilla Exam Comments: NAD Respiratory Exam Respiratory: Present chest non-tender, lungs clear and patient mechanically ventilated Cardiovascular Exam Cardiovascular: Present RRR, S1 and S2 Abdominal Exam Abdominal: Present soft Rectal Exam Comments: deferred Exam Comments: NAD Extremities Exam Comments: no edema Back/Spine/Pelvis Exam Comments: NAD Neurological Exam Comments: spontanous eye opening, no orientation to place/person/time. No cognitive response Rehabilitation potential Diagnosis (1) Chronic respiratory failure: Status: Chronic (2) Ventilator dependent: Status: Chronic (3) Chronic anoxic encephalopathy: Status: Chronic (4) Seizures: Status: Chronic (5) Urinary tract infection: Status: Acute Assessment & Plan: Klebsiella pn infection on Cefuroxime for 14 days as started in acute care (6) Tracheostomy dependence: Status: Chronic (7) PEG (percutaneous endoscopic gastrostomy) status: Status: Chronic (8) Essential hypertension: Status: Chronic Assessment & Plan Assessment: 69 yrs of age female with Hypertension/hyperlipidemia/epilepsy, recently treated in acute care for UTI sepsis with Kleibsella pn. and on Cefuroxime 500mgs bid for 14 days chronic encephalopathy/ chronic respiratory failure/ Ventilator dependent/Trach and feeding G tube as before. Plan: Current treatment and ventilator settings reviewed and continuued. Prognosis Prognosis: Poor for any meaningful recovery towards independent living. Achievable objective comfort measures Goals Full support and ventilator weaning as tolerated HPI History of Present Illness HPI: 69 yrs of age female being re-admitted to [facility] with Hypertension/hyperlipidemia/epilepsy, recently treated in acute care for UTI sepsis with Kleibsella pn. and on Cefuroxime 500mgs bid for 14 days chronic encephalopathy/ chronic respiratory failure/ Ventilator dependent/Trach and feeding G tube as before.
[2024-09-16] MEDS: BUSPIRONE 10 MG TABLET GT (21:27)
[2024-09-16] MEDS: DEX/HYPRO/GLY ARTIFICAL TEARS 225 DROP/15 ML BTL BOTH EYES (21:27)
[2024-09-16] MEDS: ATORVASTATIN 20 MG TABLET GT (21:27)
[2024-09-16] MEDS: CHOLECALCIFEROL (VITAMIN D3) 25 MCG TABLET PO (21:29)
[2024-09-16] MEDS: VALPROIC ACID 250 MG/5 ML 500 MG GT (21:30)
[2024-09-17] VITALS (10 sets, daily range): BP systolic 116–137; BP diastolic 65–83; PULSE 81–92; RESP 18–24; TEMP 36.2–36.5; O2SAT 95–99
[2024-09-17] MEDS: DEX/HYPRO/GLY ARTIFICAL TEARS 225 DROP/15 ML BTL BOTH EYES ×3 (06:23→21:08)
[2024-09-17] MEDS: CARBAMIDE PEROXIDE OTIC SOL 15 ML BTL 5 DROP BOTH EARS ×2 (08:58→21:09)
[2024-09-17] MEDS: ASPIRIN 81 MG TAB.CHEW GT (08:58)
[2024-09-17] MEDS: BUSPIRONE 10 MG TABLET GT ×2 (08:58→21:08)
[2024-09-17] MEDS: CEFUROXIME AXETIL 500 MG 500 EA PO ×2 (08:59→21:10)
[2024-09-17] MEDS: ENOXAPARIN SODIUM 40 MG/0.4 ML SYRINGE SC (08:59)
[2024-09-17] MEDS: CHOLECALCIFEROL (VITAMIN D3) 25 MCG TABLET PO ×2 (08:59→21:10)
[2024-09-17] MEDS: VALPROIC ACID 250 MG/5 ML 500 MG GT ×2 (08:59→21:10)
[2024-09-17] MEDS: ATORVASTATIN 20 MG TABLET GT (21:08)
--- NOTE | 2024-09-17 23:16 | PC.NURSE ---
Addendum entered by Raven Smith RN 09/17/24 23:24: Vitals taken, 172/93,98.5,91,27, 95%, Original Note: Resident noted to have twitching to face/mouth/right eye and right arm, twitching noted over 5 minutes, made aware and new order obtained for Ativan IM and send to ER for evaluation and treatment if indicated for seizure, this nurse left a voicemail to her sister Suzie to call back facility, resident sent to ER at 2311 via bed with RT, STREET ROLLER ENGINEER, and CHILI MAKER.
[2024-09-17] MEDS: LORazepam 2 MG/ML VIAL 0.5 MG IM (23:19)
--- NOTE | 2024-09-17 23:28 | PC.NURSE ---
Suzie called back facility, this nurse informed her that her sister was send out to ER for a seizure lasting over 5 minutes, all questions answered.
[2024-09-18] VITALS (7 sets, daily range): BP systolic 137–149; BP diastolic 80–84; PULSE 80–96; RESP 20–27; TEMP 36.3–38; O2SAT 95–98
--- NOTE | 2024-09-18 04:42 | PC.NURSE ---
Resident back from ER at 0437, no new orders from ER, made aware of returned.
[2024-09-18] MEDS: ACETAMINOPHEN 325 MG TABLET 650 MG GT (05:01)
[2024-09-18] MEDS: DEX/HYPRO/GLY ARTIFICAL TEARS 225 DROP/15 ML BTL BOTH EYES ×3 (05:01→21:21)
[2024-09-18] MEDS: BUSPIRONE 10 MG TABLET GT ×2 (09:01→21:21)
[2024-09-18] MEDS: CEFUROXIME AXETIL 500 MG 500 EA PO ×2 (09:01→21:21)
[2024-09-18] MEDS: CARBAMIDE PEROXIDE OTIC SOL 15 ML BTL 5 DROP BOTH EARS ×2 (09:01→21:40)
[2024-09-18] MEDS: ASPIRIN 81 MG TAB.CHEW GT (09:01)
[2024-09-18] MEDS: ENOXAPARIN SODIUM 40 MG/0.4 ML SYRINGE SC (09:02)
[2024-09-18] MEDS: VALPROIC ACID 250 MG/5 ML 500 MG GT ×2 (09:02→21:20)
[2024-09-18] MEDS: CHOLECALCIFEROL (VITAMIN D3) 25 MCG TABLET PO ×2 (09:02→21:21)
--- NOTE | 2024-09-18 15:10 | CHAP ---
Patient was visited by a Spiritual Care Volunteer on 09/16/2024 between 0930 and 1200 and received comfort, encouragement and/or prayer.
[2024-09-18] MEDS: ATORVASTATIN 20 MG TABLET GT (21:21)
[2024-09-19] VITALS (11 sets, daily range): BP systolic 115–154; BP diastolic 64–85; PULSE 73–96; RESP 18–32; TEMP 36.2–37.9; O2SAT 96–99
[2024-09-19] MEDS: ACETAMINOPHEN 325 MG TABLET 650 MG GT ×2 (04:41→20:16)
[2024-09-19] MEDS: DEX/HYPRO/GLY ARTIFICAL TEARS 225 DROP/15 ML BTL BOTH EYES ×3 (06:15→22:05)
[2024-09-19] MEDS: BUSPIRONE 10 MG TABLET GT ×2 (09:53→20:16)
[2024-09-19] MEDS: ASPIRIN 81 MG TAB.CHEW GT (09:54)
[2024-09-19] MEDS: CARBAMIDE PEROXIDE OTIC SOL 15 ML BTL 5 DROP BOTH EARS ×2 (09:55→20:18)
[2024-09-19] MEDS: CEFUROXIME AXETIL 500 MG 500 EA PO ×2 (09:59→20:28)
[2024-09-19] MEDS: CHOLECALCIFEROL (VITAMIN D3) 25 MCG TABLET PO ×2 (09:59→20:22)
[2024-09-19] MEDS: ENOXAPARIN SODIUM 40 MG/0.4 ML SYRINGE SC (10:00)
[2024-09-19] MEDS: VALPROIC ACID 250 MG/5 ML 500 MG GT ×2 (10:03→20:24)
[2024-09-19] MEDS: ATORVASTATIN 20 MG TABLET GT (20:18)
[2024-09-20] VITALS (8 sets, daily range): BP systolic 111–141; BP diastolic 70–88; PULSE 77–88; RESP 18–27; TEMP 36–36.8; O2SAT 97–100
[2024-09-20] MEDS: DEX/HYPRO/GLY ARTIFICAL TEARS 225 DROP/15 ML BTL BOTH EYES ×3 (05:34→21:32)
[2024-09-20] MEDS: CEFUROXIME AXETIL 500 MG 500 EA PO ×2 (08:37→20:21)
[2024-09-20] MEDS: ASPIRIN 81 MG TAB.CHEW GT (08:37)
[2024-09-20] MEDS: CHOLECALCIFEROL (VITAMIN D3) 25 MCG TABLET PO ×2 (08:37→20:22)
[2024-09-20] MEDS: ENOXAPARIN SODIUM 40 MG/0.4 ML SYRINGE SC (08:38)
[2024-09-20] MEDS: VALPROIC ACID 250 MG/5 ML 500 MG GT ×2 (08:38→20:22)
[2024-09-20] MEDS: BUSPIRONE 10 MG TABLET GT ×2 (09:55→20:20)
[2024-09-20] MEDS: ATORVASTATIN 20 MG TABLET GT (20:21)
[2024-09-21] VITALS (8 sets, daily range): BP systolic 109–148; BP diastolic 69–88; PULSE 69–105; RESP 18–29; TEMP 36.2–36.4; O2SAT 95–98
[2024-09-21] MEDS: DEX/HYPRO/GLY ARTIFICAL TEARS 225 DROP/15 ML BTL BOTH EYES ×3 (05:20→22:10)
[2024-09-21] MEDS: BUSPIRONE 10 MG TABLET GT ×2 (10:37→21:00)
[2024-09-21] MEDS: ASPIRIN 81 MG TAB.CHEW GT (10:38)
[2024-09-21] MEDS: CEFUROXIME AXETIL 500 MG 500 EA PO ×2 (10:46→21:00)
[2024-09-21] MEDS: CHOLECALCIFEROL (VITAMIN D3) 25 MCG TABLET PO ×2 (10:47→21:00)
[2024-09-21] MEDS: ENOXAPARIN SODIUM 40 MG/0.4 ML SYRINGE SC (10:49)
[2024-09-21] MEDS: VALPROIC ACID 250 MG/5 ML 500 MG GT ×2 (10:52→21:01)
--- NOTE | 2024-09-21 14:31 | PD.SAPROG ---
Progress Note - SubAcute DIAGNOSIS (1) Chronic respiratory failure: Status: Chronic (2) Ventilator dependent: Status: Chronic (3) Chronic anoxic encephalopathy: Status: Chronic (4) Seizures: Status: Chronic (5) Urinary tract infection: Status: Acute (6) Tracheostomy dependence: Status: Chronic (7) PEG (percutaneous endoscopic gastrostomy) status: Status: Chronic (8) Essential hypertension: Status: Chronic OBJECTIVE Most recent vital signs: Last Vital Signs Temp 97.4 F 09/21/24 12:00 Pulse 97 09/21/24 12:09 Resp 20 09/21/24 12:00 BP 148/88 H 09/21/24 12:00 Pulse Ox 98 09/21/24 12:09 O2 Del Method Mechanical Ventilation 09/20/24 17:47 FiO2 30 09/21/24 12:09 Neurological:: awake (spontaneous eye opening, no cognizant response) Speech:: none Answers questions:: no Respiratory:: lungs clear and shallow breathing (Ventilator dependent) Cardiovascular: RRR Abdomen: nontender Extremities:: deformities Tracheostomy:: to ventilator Feeding per:: G tube Complaints:: none ASSESSMENT & PLAN Assessment: 69 yrs of age female with Hypertension/hyperlipidemia/epilepsy, recently treated in acute care for UTI sepsis with Kleibsella pn. and on Cefuroxime 500mgs bid for 14 days chronic encephalopathy/ chronic respiratory failure/ Ventilator dependent/Trach and feeding G tube as before. Antibiotics continued Plan: Current treatment and ventilator settings reviewed and continuued.
[2024-09-21] MEDS: ATORVASTATIN 20 MG TABLET GT (21:00)
[2024-09-22] VITALS (8 sets, daily range): BP systolic 102–128; BP diastolic 62–77; PULSE 60–89; RESP 18–20; TEMP 36.1–36.6; O2SAT 96–98
[2024-09-22] MEDS: DEX/HYPRO/GLY ARTIFICAL TEARS 225 DROP/15 ML BTL BOTH EYES ×3 (05:55→21:50)
[2024-09-22] MEDS: ASPIRIN 81 MG TAB.CHEW GT (09:18)
[2024-09-22] MEDS: BUSPIRONE 10 MG TABLET GT ×2 (09:18→20:25)
[2024-09-22] MEDS: CEFUROXIME AXETIL 500 MG 500 EA PO ×2 (09:19→20:25)
[2024-09-22] MEDS: CHOLECALCIFEROL (VITAMIN D3) 25 MCG TABLET PO ×2 (09:20→20:25)
[2024-09-22] MEDS: ENOXAPARIN SODIUM 40 MG/0.4 ML SYRINGE SC (09:20)
[2024-09-22] MEDS: VALPROIC ACID 250 MG/5 ML 500 MG GT ×2 (09:20→20:23)
[2024-09-22] MEDS: ACETAMINOPHEN 325 MG TABLET 650 MG GT ×2 (14:45→20:26)
[2024-09-22] MEDS: ATORVASTATIN 20 MG TABLET GT (20:25)
[2024-09-23] VITALS (8 sets, daily range): BP systolic 122–150; BP diastolic 77–88; PULSE 68–87; RESP 18–21; TEMP 36.1–36.4; O2SAT 97–98; BMI 32.4
[2024-09-23] MEDS: DEX/HYPRO/GLY ARTIFICAL TEARS 225 DROP/15 ML BTL BOTH EYES ×3 (05:14→21:07)
[2024-09-23] MEDS: ASPIRIN 81 MG TAB.CHEW GT (09:40)
[2024-09-23] MEDS: BUSPIRONE 10 MG TABLET GT ×2 (09:41→21:07)
[2024-09-23] MEDS: CEFUROXIME AXETIL 500 MG 500 EA PO ×2 (09:44→21:08)
[2024-09-23] MEDS: CHOLECALCIFEROL (VITAMIN D3) 25 MCG TABLET PO (09:45)
[2024-09-23] MEDS: ENOXAPARIN SODIUM 40 MG/0.4 ML SYRINGE SC (09:45)
[2024-09-23] MEDS: VALPROIC ACID 250 MG/5 ML 500 MG GT ×3 (09:46→21:08)
--- NOTE | 2024-09-23 11:47 | PC.NURSE ---
Buspar will be monitored for adverse side effects
--- NOTE | 2024-09-23 13:10 | PD.SAPROG ---
Progress Note - SubAcute DIAGNOSIS (1) Chronic respiratory failure: Status: Chronic (2) Ventilator dependent: Status: Chronic (3) Chronic anoxic encephalopathy: Status: Chronic (4) Seizures: Status: Chronic (5) Urinary tract infection: Status: Acute (6) Tracheostomy dependence: Status: Chronic (7) PEG (percutaneous endoscopic gastrostomy) status: Status: Chronic (8) Essential hypertension: Status: Chronic OBJECTIVE Most recent vital signs: Last Vital Signs Temp 96.7 F L 09/26/24 18:00 Pulse 85 09/26/24 21:27 Resp 18 09/26/24 21:27 BP 108/70 09/26/24 18:00 Pulse Ox 99 09/26/24 21:27 O2 Del Method Mechanical Ventilation 09/26/24 00:00 FiO2 300 09/26/24 21:27 Neurological:: awake (spontaneous eye opening, no cognizant response) Speech:: none Answers questions:: no Respiratory:: lungs clear and shallow breathing (Ventilator dependent) Cardiovascular: RRR Abdomen: nontender Extremities:: deformities Tracheostomy:: to ventilator Feeding per:: G tube Complaints:: none ASSESSMENT & PLAN Assessment: 69 yrs of age female with Hypertension/hyperlipidemia/epilepsy, recently treated in acute care for UTI sepsis with Kleibsella pn. and on Cefuroxime 500mgs bid for 14 days chronic encephalopathy/ chronic respiratory failure/ Ventilator dependent/Trach and feeding G tube as before. Antibiotics continued Plan: Current treatment and ventilator settings reviewed and continuued.
[2024-09-23] MEDS: ATORVASTATIN 20 MG TABLET 40 MG GT (21:07)
[2024-09-23] MEDS: CHOLECALCIFEROL (VITAMIN D3) 25 MCG TABLET GT (21:08)
[2024-09-24] VITALS (8 sets, daily range): BP systolic 92–131; BP diastolic 53–76; PULSE 79–93; RESP 18–30; TEMP 35.8–36.2; O2SAT 97–99
[2024-09-24] MEDS: DEX/HYPRO/GLY ARTIFICAL TEARS 225 DROP/15 ML BTL BOTH EYES ×3 (05:39→21:33)
[2024-09-24] MEDS: VALPROIC ACID 250 MG/5 ML 500 MG GT ×3 (05:41→21:19)
[2024-09-24 07:27] LABS: Basophils # (Auto) 0.1 Thou/mm3 (0.0-0.2); Basophils % (Auto) 1 % (0-2.5); Eosinophils # (Auto) 0.4 Thou/mm3 (0.0-0.5); Eosinophils % (Auto) 3 % (0-10); Hematocrit 32.4 % (36.0-46.0); Hemoglobin 10.1 g/dL (12.0-16.0); Immature Granulocytes Auto 0.18 Thou/mm3 (0.00-0.00); Lymphocytes # (Auto) 3.2 Thou/mm3 (1.0-4.8); Lymphocytes % (Auto) 21 % (10-50); Mean Corpuscular HGB Conc 31.2 g/dl (31.0-37.0); Mean Corpuscular Hemoglobin 29.0 pg (25.0-35.0); Mean Corpuscular Volume 93 fL (80-100); Monocytes # (Auto) 1.4 Thou/mm3 (0.0-0.8); Monocytes % (Auto) 9 % (0-12); Neutrophils # (Auto) 10.1 Thou/mm3 (1.8-7.7); Neutrophils % (Auto) 65 % (37-80); Nucleated Red Blood Cell # 0.00 Thou/mm3 (0.00-0.00); Nucleated Red Blood Cell % 0 /100 WBC (0); Platelet Count 517 Thou/mm3 (140-440); RDW Standard Deviation 56.6 fL (36.4-46.3); Red Blood Count 3.48 Miln/mm3 (4.00-5.20); White Blood Count 15.4 Thou/mm3 (3.6-11.0)
[2024-09-24 07:51] LABS: Alanine Aminotransferase 12 U/L (10-49); Albumin, Serum 3.7 gm/dL (3.4-4.8); Albumin/Globulin Ratio 1.1 (1.2-2.2); Alkaline Phosphatase 72 U/L (46-116); Anion Gap 5 (7-16); Aspartate Amino Transferase 22 U/L (0-34); BUN/Creatinine Ratio 40 Ratio (12-20); Bilirubin,Total 0.3 mg/dL (0.3-1.2); Blood Urea Nitrogen 24 mg/dL (9-23); Calcium 9.3 mg/dL (8.3-10.6); Calcium (Corrected) 9.5 mg/dL (8.5-10.1); Carbon Dioxide 39.1 mMol/L (20.0-31.0); Cardiac Risk Estimate 4.3 RATIO (3.7-5.6); Chloride 93 mMol/L (98-107); Cholesterol 139 mg/dL (132-200); Creatinine (Component) 0.6 mg/dL (0.6-1.3); Estimated Creatinine Clearance 87.2 mL/min (>60); Globulin 3.5 gm/dL (2.3-3.5); Glucose 103 mg/dL (74-106); Glucose,Fasting 103 mg/dL (74-106); HDL Cholesterol 32 mg/dL (40-60); Osmolality,Calculated 277 (275-295); Potassium 4.6 mMol/L (3.4-5.1); Sodium 137 mMol/L (136-145); Total Protein 7.2 gm/dL (5.7-8.2); Triglycerides 416 mg/dL (30-150); eGFR > 60 See Note
[2024-09-24] MEDS: BUSPIRONE 10 MG TABLET GT ×2 (08:06→20:25)
[2024-09-24] MEDS: ASPIRIN 81 MG TAB.CHEW GT (08:07)
[2024-09-24] MEDS: CEFUROXIME AXETIL 500 MG 500 EA PO ×2 (08:07→20:25)
[2024-09-24] MEDS: CHOLECALCIFEROL (VITAMIN D3) 25 MCG TABLET GT ×2 (08:07→20:25)
[2024-09-24] MEDS: MAGNESIUM HYDROXIDE 30 ML ORAL SUSP ML GT (08:30)
[2024-09-24 08:58] LABS: Glucose Estimated Average 123 mg/dL (80-131); Hemoglobin A1C 5.9 % Hgb (4.8-6.0)
[2024-09-24] MEDS: ENOXAPARIN SODIUM 40 MG/0.4 ML SYRINGE SC (08:58)
--- NOTE | 2024-09-24 16:31 | PC.NURSE ---
Dr Silverio reviewed CBC result currently on ATB for UTI until 09/26/24. Order received to repeat cbc 2 days post ATB and discontinue the cbc scheduled tomorrow. On blood sugar check sliding scale coverage every 6 hours, not requring any regular insulin, order received to decrease BS check to BID. Resident on Atorvastatin 40 mg at HS, triglyceride noted to be 416, order received to do Lipid panel in 2 weeks.
[2024-09-24] MEDS: ACETAMINOPHEN 325 MG TABLET 650 MG GT (20:24)
[2024-09-24] MEDS: ATORVASTATIN 20 MG TABLET 40 MG GT (20:24)
[2024-09-25] VITALS (9 sets, daily range): BP systolic 106–114; BP diastolic 66–70; PULSE 78–89; RESP 18–26; TEMP 36–36.3; O2SAT 97–99
[2024-09-25] MEDS: DEX/HYPRO/GLY ARTIFICAL TEARS 225 DROP/15 ML BTL BOTH EYES ×3 (05:29→22:00)
[2024-09-25] MEDS: VALPROIC ACID 250 MG/5 ML 500 MG GT ×3 (05:30→22:00)
[2024-09-25] MEDS: BUSPIRONE 10 MG TABLET GT ×2 (09:06→20:48)
[2024-09-25] MEDS: CEFUROXIME AXETIL 500 MG 500 EA PO ×2 (09:07→20:49)
[2024-09-25] MEDS: ASPIRIN 81 MG TAB.CHEW GT (09:07)
[2024-09-25] MEDS: CHOLECALCIFEROL (VITAMIN D3) 25 MCG TABLET GT ×2 (09:08→20:49)
[2024-09-25] MEDS: ENOXAPARIN SODIUM 40 MG/0.4 ML SYRINGE SC (09:10)
[2024-09-25] MEDS: ACETAMINOPHEN 325 MG TABLET 650 MG GT (14:23)
--- NOTE | 2024-09-25 14:27 | PC.NURSE ---
Patient c/o of headache 0-10 level 5 able to nod when nurse says headache. Nurse administered acetaminophen 650 mg as PRN order. Nurse will continue to f/u with patient.
[2024-09-25] MEDS: ATORVASTATIN 20 MG TABLET 40 MG GT (20:48)
[2024-09-26] VITALS (7 sets, daily range): BP systolic 108–115; BP diastolic 70–71; PULSE 78–88; RESP 18–25; TEMP 35.9–36.1; O2SAT 98–99
[2024-09-26] MEDS: DEX/HYPRO/GLY ARTIFICAL TEARS 225 DROP/15 ML BTL BOTH EYES ×3 (06:01→21:14)
[2024-09-26] MEDS: VALPROIC ACID 250 MG/5 ML 500 MG GT ×3 (06:03→22:30)
[2024-09-26] MEDS: CHOLECALCIFEROL (VITAMIN D3) 25 MCG TABLET GT ×2 (08:52→20:03)
[2024-09-26] MEDS: ENOXAPARIN SODIUM 40 MG/0.4 ML SYRINGE SC (08:52)
[2024-09-26] MEDS: CEFUROXIME AXETIL 500 MG 500 EA PO (08:52)
[2024-09-26] MEDS: BUSPIRONE 10 MG TABLET GT ×2 (08:52→20:02)
[2024-09-26] MEDS: ASPIRIN 81 MG TAB.CHEW GT (08:52)
--- NOTE | 2024-09-26 19:00 | PC.NURSE ---
Ongoing antibiotics for Uti no adverse reactions noted.Urine is cloudy flowing by gravity no hematuria noted Fluids encouraged tolerated well via g-tube. no signs and symptoms of pain or discomfort.
[2024-09-26] MEDS: ATORVASTATIN 20 MG TABLET 40 MG GT (20:03)
--- NOTE | 2024-09-26 21:32 | PC.NURSE ---
Dr Parada here to see resident, stated she would be putting in orders for EEG and CT of Head, none noted at this time
[2024-09-27] VITALS (9 sets, daily range): BP systolic 97–138; BP diastolic 63–81; PULSE 69–84; RESP 18–27; TEMP 36.2–36.9; O2SAT 96–99
--- NOTE | 2024-09-27 01:22 | PC.NURSE ---
Addendum entered by Eri Villavicencio LVN 09/27/24 03:11: S/p antibiotics for UTI, last dose given in am. No delayed adverse reaction noted. Original Note: Antibiotics for UTI ongoing, no adverse reaction noted. F?C patent draining cloudy yellow urine with noted sediment to gravity. No hematuria noted, no foul odor. Fluids encouraged and tolerated well via g-tube.
[2024-09-27] MEDS: VALPROIC ACID 250 MG/5 ML 500 MG GT ×3 (05:16→22:10)
[2024-09-27] MEDS: DEX/HYPRO/GLY ARTIFICAL TEARS 225 DROP/15 ML BTL BOTH EYES ×3 (05:16→22:10)
[2024-09-27] MEDS: CHOLECALCIFEROL (VITAMIN D3) 25 MCG TABLET GT ×2 (08:44→20:47)
[2024-09-27] MEDS: ENOXAPARIN SODIUM 40 MG/0.4 ML SYRINGE SC (08:44)
[2024-09-27] MEDS: BUSPIRONE 10 MG TABLET GT ×2 (08:44→20:47)
[2024-09-27] MEDS: ASPIRIN 81 MG TAB.CHEW GT (08:44)
[2024-09-27] MEDS: ATORVASTATIN 20 MG TABLET 40 MG GT (20:47)
--- NOTE | 2024-09-27 22:20 | PD.SAPROG ---
Progress Note - SubAcute DIAGNOSIS (1) Chronic respiratory failure: Status: Chronic (2) Ventilator dependent: Status: Chronic (3) Chronic anoxic encephalopathy: Status: Chronic (4) Seizures: Status: Chronic (5) Urinary tract infection: Status: Acute (6) Tracheostomy dependence: Status: Chronic (7) PEG (percutaneous endoscopic gastrostomy) status: Status: Chronic (8) Essential hypertension: Status: Chronic OBJECTIVE Most recent vital signs: Last Vital Signs Temp 97.5 F 09/27/24 16:59 Pulse 76 09/27/24 18:54 Resp 18 09/27/24 18:54 BP 138/81 H 09/27/24 16:59 Pulse Ox 96 09/27/24 18:54 O2 Del Method Mechanical Ventilation 09/27/24 16:59 FiO2 30 09/27/24 18:54 Neurological:: awake (spontaneous eye opening, no cognizant response) Speech:: none Answers questions:: no Respiratory:: lungs clear and shallow breathing (Ventilator dependent) Cardiovascular: RRR Abdomen: nontender Extremities:: deformities Tracheostomy:: to ventilator Feeding per:: G tube Complaints:: none ASSESSMENT & PLAN Assessment: 69 yrs of age female with Hypertension/hyperlipidemia/epilepsy, recently treated in acute care for UTI sepsis with Kleibsella pn. and on Cefuroxime 500mgs bid for 14 days chronic encephalopathy/ chronic respiratory failure/ Ventilator dependent/Trach and feeding G tube as before. VSS Plan: Current treatment and ventilator settings reviewed and continuued.
[2024-09-28] VITALS (7 sets, daily range): BP systolic 91–125; BP diastolic 60–82; PULSE 71–96; RESP 18–22; TEMP 36–36.2; O2SAT 98–99
[2024-09-28] MEDS: DEX/HYPRO/GLY ARTIFICAL TEARS 225 DROP/15 ML BTL BOTH EYES ×3 (05:25→21:02)
[2024-09-28] MEDS: VALPROIC ACID 250 MG/5 ML 500 MG GT ×3 (05:26→21:02)
[2024-09-28 07:36] LABS: Basophils # (Auto) 0.1 Thou/mm3 (0.0-0.2); Basophils % (Auto) 1 % (0-2.5); Eosinophils # (Auto) 0.5 Thou/mm3 (0.0-0.5); Eosinophils % (Auto) 4 % (0-10); Hematocrit 31.5 % (36.0-46.0); Hemoglobin 10.0 g/dL (12.0-16.0); Immature Granulocytes Auto 0.11 Thou/mm3 (0.00-0.00); Lymphocytes # (Auto) 3.2 Thou/mm3 (1.0-4.8); Lymphocytes % (Auto) 22 % (10-50); Mean Corpuscular HGB Conc 31.7 g/dl (31.0-37.0); Mean Corpuscular Hemoglobin 29.5 pg (25.0-35.0); Mean Corpuscular Volume 93 fL (80-100); Monocytes # (Auto) 1.5 Thou/mm3 (0.0-0.8); Monocytes % (Auto) 10 % (0-12); Neutrophils # (Auto) 9.0 Thou/mm3 (1.8-7.7); Neutrophils % (Auto) 62 % (37-80); Nucleated Red Blood Cell # 0.00 Thou/mm3 (0.00-0.00); Nucleated Red Blood Cell % 0 /100 WBC (0); Platelet Count 488 Thou/mm3 (140-440); RDW Standard Deviation 57.2 fL (36.4-46.3); Red Blood Count 3.39 Miln/mm3 (4.00-5.20); White Blood Count 14.5 Thou/mm3 (3.6-11.0)
[2024-09-28] MEDS: ASPIRIN 81 MG TAB.CHEW GT (08:43)
[2024-09-28] MEDS: CHOLECALCIFEROL (VITAMIN D3) 25 MCG TABLET GT ×2 (08:43→21:02)
[2024-09-28] MEDS: BUSPIRONE 10 MG TABLET GT ×2 (08:43→21:02)
[2024-09-28] MEDS: ENOXAPARIN SODIUM 40 MG/0.4 ML SYRINGE SC (08:43)
--- NOTE | 2024-09-28 14:50 | PC.NURSE ---
Resident noted with hematuria this morning . F/C was irrigated with sterile water and noted with pink tinged urine at this time. Currently on Lovenox. CBC was drawn today with WBC of 14.5 and resident completed the antibiotic 3 days ago. Remains to be alert and responsive. Afebrile. Denies any pain or discomfort. Called Dr Silverio and made aware, no new orders received at this time. No new orders at this time. Will monitor resident and update MD as needed per MD.
[2024-09-28] MEDS: ATORVASTATIN 20 MG TABLET 40 MG GT (21:02)
[2024-09-29] VITALS (8 sets, daily range): BP systolic 98–122; BP diastolic 59–71; PULSE 70–81; RESP 18–20; TEMP 36.1–36.4; O2SAT 97–99
[2024-09-29] MEDS: DEX/HYPRO/GLY ARTIFICAL TEARS 225 DROP/15 ML BTL BOTH EYES ×3 (05:34→21:08)
[2024-09-29] MEDS: VALPROIC ACID 250 MG/5 ML 500 MG GT ×3 (05:35→21:08)
[2024-09-29] MEDS: BUSPIRONE 10 MG TABLET GT ×2 (08:46→21:08)
[2024-09-29] MEDS: ENOXAPARIN SODIUM 40 MG/0.4 ML SYRINGE SC (08:47)
[2024-09-29] MEDS: CHOLECALCIFEROL (VITAMIN D3) 25 MCG TABLET GT ×2 (08:47→21:08)
[2024-09-29] MEDS: ASPIRIN 81 MG TAB.CHEW GT (08:47)
[2024-09-29] MEDS: ACETAMINOPHEN 325 MG TABLET 650 MG GT (15:25)
[2024-09-29] MEDS: ATORVASTATIN 20 MG TABLET 40 MG GT (21:08)
[2024-09-30] VITALS (7 sets, daily range): BP systolic 92–112; BP diastolic 64–71; PULSE 63–91; RESP 18; TEMP 36–36.3; O2SAT 98–99
[2024-09-30] MEDS: DEX/HYPRO/GLY ARTIFICAL TEARS 225 DROP/15 ML BTL BOTH EYES ×2 (05:52→14:30)
[2024-09-30] MEDS: VALPROIC ACID 250 MG/5 ML 500 MG GT ×3 (05:53→22:00)
[2024-09-30 06:44] LABS: Levetiracetam (Keppra)* 35.1 mcg/mL (6.0-46.0)
[2024-09-30] MEDS: BUSPIRONE 10 MG TABLET GT ×2 (09:21→21:00)
[2024-09-30] MEDS: ENOXAPARIN SODIUM 40 MG/0.4 ML SYRINGE SC (09:22)
[2024-09-30] MEDS: CHOLECALCIFEROL (VITAMIN D3) 25 MCG TABLET GT ×2 (09:22→20:54)
[2024-09-30] MEDS: ASPIRIN 81 MG TAB.CHEW GT (09:22)
[2024-09-30] MEDS: ATORVASTATIN 20 MG TABLET 40 MG GT (20:54)
[2024-10-01] VITALS (9 sets, daily range): BP systolic 92–113; BP diastolic 60–70; PULSE 68–88; RESP 18; TEMP 36.1–36.5; O2SAT 97–99; BMI 31.8
[2024-10-01] MEDS: DEX/HYPRO/GLY ARTIFICAL TEARS 225 DROP/15 ML BTL BOTH EYES ×4 (01:15→21:00)
[2024-10-01] MEDS: VALPROIC ACID 250 MG/5 ML 500 MG GT ×3 (06:05→21:00)
[2024-10-01] MEDS: ASPIRIN 81 MG TAB.CHEW GT (09:40)
[2024-10-01] MEDS: BUSPIRONE 10 MG TABLET GT ×2 (09:40→20:57)
[2024-10-01] MEDS: ENOXAPARIN SODIUM 40 MG/0.4 ML SYRINGE SC (09:41)
[2024-10-01] MEDS: CHOLECALCIFEROL (VITAMIN D3) 25 MCG TABLET GT ×2 (09:41→20:58)
--- NOTE | 2024-10-01 17:23 | PD.SAPROG ---
Progress Note - SubAcute DIAGNOSIS (1) Chronic respiratory failure: Status: Chronic (2) Ventilator dependent: Status: Chronic (3) Chronic anoxic encephalopathy: Status: Chronic (4) Seizures: Status: Chronic (5) Urinary tract infection: Status: Acute (6) Tracheostomy dependence: Status: Chronic (7) PEG (percutaneous endoscopic gastrostomy) status: Status: Chronic (8) Essential hypertension: Status: Chronic OBJECTIVE Most recent vital signs: Last Vital Signs Temp 97.0 F 10/01/24 12:00 Pulse 85 10/01/24 12:56 Resp 18 10/01/24 12:00 BP 92/60 10/01/24 12:00 Pulse Ox 99 10/01/24 15:25 O2 Del Method Mechanical Ventilation 09/30/24 17:23 FiO2 30 10/01/24 15:25 Neurological:: awake (spontaneous eye opening, no cognizant response) Speech:: none Answers questions:: no Respiratory:: lungs clear and shallow breathing (Ventilator dependent) Cardiovascular: RRR Abdomen: nontender Extremities:: deformities Tracheostomy:: to ventilator Feeding per:: G tube Complaints:: none ASSESSMENT & PLAN Assessment: 69 yrs of age female with Hypertension/hyperlipidemia/epilepsy, recently treated in acute care for UTI sepsis with Kleibsella pn. and on Cefuroxime 500mgs bid for 14 days chronic encephalopathy/ chronic respiratory failure/ Ventilator dependent/Trach and feeding G tube as before. VSS. No new issues Plan: Current treatment and ventilator settings reviewed and continuued.
[2024-10-01] MEDS: ATORVASTATIN 20 MG TABLET 40 MG GT (20:58)
[2024-10-02] VITALS (8 sets, daily range): BP systolic 98–127; BP diastolic 61–64; PULSE 67–97; RESP 18–34; TEMP 36.1–36.4; O2SAT 95–99
--- NOTE | 2024-10-02 00:26 | XR_ITS ---
Examination: CT brain head without contrast. 2-D sagittal coronal reconstructions Date and time of exam:October 03, 2024 1141 hours Comparison June 25, 2024 INDICATIONS: Onset seizures today CTDI: vol (mGy):58.2 DLP: (mGycm):1290 Technique: Multiple CT axial sections of the brain have been obtained, 5 mm slice thickness. Contrast has not been administered. 2-D sagittal, coronal reconstructions have been obtained Low dose protocols were performed. One or more of the following dose reduction techniques were used; automated exposure control, adjustment of the mA and/or KV according to patient size, use of iterative reconstruction technique. Findings: Mild ventricular enlargement. Significant atrophy Intra-axial or extra-axial hemorrhage density is not seen. No mass effect or midline shift Basal cisterns are not remarkable. Fourth ventricle is midline. Cranial vault intact. Impression: Negative for acute hemorrhage, mass effect or midline shift
--- NOTE | 2024-10-02 00:29 | PD.NEUROCONS ---
History of Present Illness Data of Consult Requesting Physician: Lalo Silverio MD Primary Care Provider: Lalo Silverio MD Consult Narrative cc:: cc: Lalo Silverio MD Meds Home Medications and Allergies Allergies Allergy/AdvReac Type Severity Reaction Status Date / Time codeine Allergy Verified 06/24/24 19:33 Exam - Neurology Vital Signs Temp Pulse Resp BP Pulse Ox O2 Del Method FiO2 97.0 F 88 18 110/70 97 Mechanical Ventilation 30 10/01/24 17:24 10/01/24 19:55 10/01/24 17:24 10/01/24 17:24 10/01/24 19:55 10/01/24 17:24 10/01/24 19:55 Results Labs 09/28/24 07:10 09/24/24 06:50
--- NOTE | 2024-10-02 03:26 | RESP.EEG ---
EEG has been completed and is ready for MD interpretation
[2024-10-02] MEDS: DEX/HYPRO/GLY ARTIFICAL TEARS 225 DROP/15 ML BTL BOTH EYES ×3 (05:57→21:04)
[2024-10-02] MEDS: VALPROIC ACID 250 MG/5 ML 500 MG GT ×3 (05:58→21:03)
[2024-10-02] MEDS: BUSPIRONE 10 MG TABLET GT ×2 (08:44→21:04)
[2024-10-02] MEDS: ASPIRIN 81 MG TAB.CHEW GT (08:45)
[2024-10-02] MEDS: CHOLECALCIFEROL (VITAMIN D3) 25 MCG TABLET GT ×2 (08:45→21:04)
[2024-10-02] MEDS: ENOXAPARIN SODIUM 40 MG/0.4 ML SYRINGE SC (08:45)
--- NOTE | 2024-10-02 11:43 | PC.SS ---
Resident remains on ventilator with trach in place and GT for medication and nutrition. She is alert able to use her voice for minimal conversation, during room visits she engages with staff and is seen smiling. Resident will remain in current care and will continue to have all subacute care needs met by staff. This SSD will continue to make daily contact with resident and will monitor for changes in mood and behavior.
--- NOTE | 2024-10-02 18:25 | PC.NURSE ---
Notified Dr Parada today that EEG was taken today.
[2024-10-02] MEDS: ATORVASTATIN 20 MG TABLET 40 MG GT (21:04)
[2024-10-03] VITALS (8 sets, daily range): BP systolic 99–107; BP diastolic 62–69; PULSE 72–83; RESP 18–24; TEMP 36.1–36.6; O2SAT 98–99
[2024-10-03] MEDS: DEX/HYPRO/GLY ARTIFICAL TEARS 225 DROP/15 ML BTL BOTH EYES ×3 (05:12→21:04)
[2024-10-03] MEDS: VALPROIC ACID 250 MG/5 ML 500 MG GT ×3 (05:12→21:18)
[2024-10-03] MEDS: CHOLECALCIFEROL (VITAMIN D3) 25 MCG TABLET GT ×2 (08:54→20:04)
[2024-10-03] MEDS: ENOXAPARIN SODIUM 40 MG/0.4 ML SYRINGE SC (08:54)
[2024-10-03] MEDS: ASPIRIN 81 MG TAB.CHEW GT (08:54)
[2024-10-03] MEDS: BUSPIRONE 10 MG TABLET GT ×2 (08:54→20:04)
--- NOTE | 2024-10-03 10:12 | PC.NURSE ---
Addendum entered and electronically signed by Zainab Jordan RN 10/03/24 10:50: Received a call from radiology scheduling resident scheduled for CT today at 11:30. Original Note: No need for a prior authorization for resident's CT head w/o contrast, it will be billed on resident's insurance using the subacute account as per Sary.
[2024-10-03] MEDS: ACETAMINOPHEN 325 MG TABLET 650 MG GT (20:04)
[2024-10-03] MEDS: ATORVASTATIN 20 MG TABLET 40 MG GT (20:04)
[2024-10-04] VITALS (8 sets, daily range): BP systolic 93–130; BP diastolic 59–77; PULSE 76–87; RESP 18–26; TEMP 36.1–37.2; O2SAT 97–99
[2024-10-04] MEDS: DEX/HYPRO/GLY ARTIFICAL TEARS 225 DROP/15 ML BTL BOTH EYES ×3 (05:34→22:00)
[2024-10-04] MEDS: VALPROIC ACID 250 MG/5 ML 500 MG GT ×3 (05:35→22:00)
[2024-10-04] MEDS: CHOLECALCIFEROL (VITAMIN D3) 25 MCG TABLET GT ×2 (08:42→20:54)
[2024-10-04] MEDS: BUSPIRONE 10 MG TABLET GT ×2 (08:42→20:54)
[2024-10-04] MEDS: ENOXAPARIN SODIUM 40 MG/0.4 ML SYRINGE SC (08:42)
[2024-10-04] MEDS: ASPIRIN 81 MG TAB.CHEW GT (08:42)
[2024-10-04] MEDS: guaiFENesin Liq 100 MG/5 ML LIQUID 300 MG GT (14:00)
[2024-10-04] MEDS: ACETAMINOPHEN 325 MG TABLET 650 MG GT (19:20)
[2024-10-04] MEDS: ATORVASTATIN 20 MG TABLET 40 MG GT (20:54)
[2024-10-05] VITALS (8 sets, daily range): BP systolic 89–126; BP diastolic 63–79; PULSE 67–84; RESP 18–26; TEMP 36.3–37; O2SAT 97–99
[2024-10-05] MEDS: DEX/HYPRO/GLY ARTIFICAL TEARS 225 DROP/15 ML BTL BOTH EYES ×3 (05:57→22:00)
[2024-10-05] MEDS: VALPROIC ACID 250 MG/5 ML 500 MG GT ×3 (05:57→22:00)
[2024-10-05] MEDS: BUSPIRONE 10 MG TABLET GT ×2 (08:05→21:06)
[2024-10-05] MEDS: ASPIRIN 81 MG TAB.CHEW GT (08:06)
[2024-10-05] MEDS: CHOLECALCIFEROL (VITAMIN D3) 25 MCG TABLET GT ×2 (08:07→21:06)
[2024-10-05] MEDS: ENOXAPARIN SODIUM 40 MG/0.4 ML SYRINGE SC (08:07)
--- NOTE | 2024-10-05 11:37 | ESPR_ITS ---
Progress Note - SubAcute DIAGNOSIS (1) Chronic respiratory failure: Status: Chronic (2) Ventilator dependent: Status: Chronic (3) Chronic anoxic encephalopathy: Status: Chronic (4) Seizures: Status: Chronic (5) Urinary tract infection: Status: Acute (6) Tracheostomy dependence: Status: Chronic (7) PEG (percutaneous endoscopic gastrostomy) status: Status: Chronic (8) Essential hypertension: Status: Chronic OBJECTIVE Most recent vital signs: Last Vital Signs Temp 98.3 F 10/05/24 05:56 Pulse 79 10/05/24 07:45 Resp 26 H 10/05/24 07:45 BP 118/79 10/05/24 05:56 Pulse Ox 98 10/05/24 07:45 O2 Del Method Mechanical Ventilation 10/05/24 05:56 FiO2 30 10/05/24 07:45 Neurological:: awake (spontaneous eye opening, Has slowly started to track with her eyes and respond to simple commands by nodding her head and squeeze with her hands.) Speech:: none Answers questions:: yes (by simple gestures) Respiratory:: lungs clear and shallow breathing (Ventilator dependent) Cardiovascular: RRR Abdomen: nontender Extremities:: deformities Tracheostomy:: to ventilator Feeding per:: G tube Complaints:: none ASSESSMENT & PLAN Assessment: 69 yrs of age female with Hypertension/hyperlipidemia/epilepsy, recently treated in acute care for UTI sepsis with Kleibsella pn. and on Cefuroxime 500mgs bid for 14 days chronic encephalopathy/ chronic respiratory failure/ Ventilator depe ndent/Trach and feeding G tube as before. VSS. No new issues. Interacting with staff by hand movements and gestures Plan: Current treatment and ventilator settings reviewed and continuued.
[2024-10-05] MEDS: ATORVASTATIN 20 MG TABLET 40 MG GT (21:06)
[2024-10-06] VITALS (8 sets, daily range): BP systolic 103–124; BP diastolic 58–85; PULSE 78–99; RESP 18–29; TEMP 36.3–36.7; O2SAT 95–100
--- NOTE | 2024-10-06 05:46 | PC.NURSE ---
Per [employer], resident has episodes of increased respirations to the 40s, residents respirations decreased to the 20's when staff is present in room, resident noted to get anxious when needing fan on/off and sets off vent alarm, emotional support provided with positive results, resident in room resting with eyes closed, respirations even and unlabored, call light within reach, no s/s of distress noted.
[2024-10-06] MEDS: DEX/HYPRO/GLY ARTIFICAL TEARS 225 DROP/15 ML BTL BOTH EYES ×3 (05:55→21:15)
[2024-10-06] MEDS: VALPROIC ACID 250 MG/5 ML 500 MG GT ×3 (05:55→21:15)
--- NOTE | 2024-10-06 06:18 | PC.NURSE ---
pt had episode of restless/anxiety most of the night, no c/o of pain, stated i want to move , ask if she is scared patient nodded yes, will continue to follow.
[2024-10-06] MEDS: BUSPIRONE 10 MG TABLET GT ×2 (09:50→20:21)
[2024-10-06] MEDS: CHOLECALCIFEROL (VITAMIN D3) 25 MCG TABLET GT ×2 (09:50→20:22)
[2024-10-06] MEDS: ASPIRIN 81 MG TAB.CHEW GT (09:50)
[2024-10-06] MEDS: ENOXAPARIN SODIUM 40 MG/0.4 ML SYRINGE SC (09:51)
[2024-10-06] MEDS: ATORVASTATIN 20 MG TABLET 40 MG GT (20:22)
[2024-10-07] VITALS (8 sets, daily range): BP systolic 91–123; BP diastolic 56–64; PULSE 78–89; RESP 18–21; TEMP 36.1–36.3; O2SAT 92–100
[2024-10-07] MEDS: DEX/HYPRO/GLY ARTIFICAL TEARS 225 DROP/15 ML BTL BOTH EYES ×3 (05:18→21:48)
[2024-10-07] MEDS: VALPROIC ACID 250 MG/5 ML 500 MG GT ×3 (05:19→21:48)
[2024-10-07] MEDS: CHOLECALCIFEROL (VITAMIN D3) 25 MCG TABLET GT ×2 (09:19→21:47)
[2024-10-07] MEDS: ENOXAPARIN SODIUM 40 MG/0.4 ML SYRINGE SC (09:19)
[2024-10-07] MEDS: ASPIRIN 81 MG TAB.CHEW GT (09:19)
[2024-10-07] MEDS: BUSPIRONE 10 MG TABLET GT ×2 (09:20→21:46)
[2024-10-07] MEDS: ATORVASTATIN 20 MG TABLET 40 MG GT (21:46)
[2024-10-08] VITALS (8 sets, daily range): BP systolic 92–127; BP diastolic 58–67; PULSE 61–83; RESP 18–27; TEMP 35.9–36.1; O2SAT 97–99
--- NOTE | 2024-10-08 04:38 | PC.NURSE ---
Upon care rounds with [employer], this nurse pulled back residents blanket and noted serosanginous urine on incontinent pad. Upon further investigation this nurse noted residents foly catheter to be dislodged with bulb intact. Hobson catheter replaced with proper placement noted, clear yellow urine noted to immediately drain via gravity. Resident tolerated well.
[2024-10-08] MEDS: DEX/HYPRO/GLY ARTIFICAL TEARS 225 DROP/15 ML BTL BOTH EYES ×3 (05:01→21:52)
[2024-10-08] MEDS: VALPROIC ACID 250 MG/5 ML 500 MG GT ×3 (05:01→21:52)
[2024-10-08 06:59] LABS: Cardiac Risk Estimate 4.7 RATIO (3.7-5.6); Cholesterol 136 mg/dL (132-200); HDL Cholesterol 29 mg/dL (40-60); LDL Cholesterol,Calculated 33 mg/dL (0-130); Triglycerides 369 mg/dL (30-150)
[2024-10-08] MEDS: BUSPIRONE 10 MG TABLET GT ×2 (09:36→21:50)
[2024-10-08] MEDS: ASPIRIN 81 MG TAB.CHEW GT (09:36)
[2024-10-08] MEDS: CHOLECALCIFEROL (VITAMIN D3) 25 MCG TABLET GT ×2 (09:37→21:50)
[2024-10-08] MEDS: ENOXAPARIN SODIUM 40 MG/0.4 ML SYRINGE SC (09:39)
[2024-10-08] MEDS: ATORVASTATIN 20 MG TABLET 40 MG GT (21:50)
[2024-10-09] VITALS (7 sets, daily range): BP systolic 107–153; BP diastolic 70–87; PULSE 76–121; RESP 18–29; TEMP 36.3–39.4; O2SAT 95–99
[2024-10-09] MEDS: DEX/HYPRO/GLY ARTIFICAL TEARS 225 DROP/15 ML BTL BOTH EYES ×2 (04:59→14:00)
[2024-10-09] MEDS: VALPROIC ACID 250 MG/5 ML 500 MG GT ×2 (05:00→14:00)
[2024-10-09] MEDS: IPRATROPIUM/ALBUTEROL 3 ML AMPUL.NEB INH (06:33)
[2024-10-09] MEDS: ASPIRIN 81 MG TAB.CHEW GT (09:12)
[2024-10-09] MEDS: CHOLECALCIFEROL (VITAMIN D3) 25 MCG TABLET GT (09:13)
[2024-10-09] MEDS: ENOXAPARIN SODIUM 40 MG/0.4 ML SYRINGE SC (09:14)
[2024-10-09] MEDS: BUSPIRONE 10 MG TABLET GT (09:17)
[2024-10-09] MEDS: ACETAMINOPHEN 325 MG TABLET 650 MG GT (09:19)
[2024-10-09 11:49] LABS: Basophils # (Auto) 0.1 Thou/mm3 (0.0-0.2); Basophils % (Auto) 1 % (0-2.5); Eosinophils # (Auto) 0.3 Thou/mm3 (0.0-0.5); Eosinophils % (Auto) 1 % (0-10); Hematocrit 27.3 % (36.0-46.0); Hemoglobin 9.1 g/dL (12.0-16.0); Immature Granulocytes Auto 0.52 Thou/mm3 (0.00-0.00); Lymphocytes # (Auto) 1.5 Thou/mm3 (1.0-4.8); Lymphocytes % (Auto) 6 % (10-50); Mean Corpuscular HGB Conc 33.3 g/dl (31.0-37.0); Mean Corpuscular Hemoglobin 29.9 pg (25.0-35.0); Mean Corpuscular Volume 90 fL (80-100); Monocytes # (Auto) 3.0 Thou/mm3 (0.0-0.8); Monocytes % (Auto) 12 % (0-12); Neutrophils # (Auto) 19.4 Thou/mm3 (1.8-7.7); Neutrophils % (Auto) 78 % (37-80); Nucleated Red Blood Cell # 0.00 Thou/mm3 (0.00-0.00); Nucleated Red Blood Cell % 0 /100 WBC (0); Platelet Count 262 Thou/mm3 (140-440); RDW Standard Deviation 54.7 fL (36.4-46.3); Red Blood Count 3.04 Miln/mm3 (4.00-5.20); White Blood Count 24.8 Thou/mm3 (3.6-11.0)
[2024-10-09 12:17] LABS: Procalcitonin 0.12 ng/ml (0.0-0.49)
--- NOTE | 2024-10-09 13:20 | PC.IP ---
This morning it was reported to me that resident had recorded temperature of 102 with cooling measures done, Tylenol given and temp was 100.4. Resident has history of consistently elevated WBC's, is on Mechanical Vent and has indwelling urinary catheter. Recommended proceeding with unit fever protocol to discern further elevation in WBC's and/or possibility of positive Influenza A/B, Covid testing. As precautionary measure, placed in Droplet Precautions, beyond the Enhanced Barrier Precautions as practiced on DP/SNF. Resident is flushed, resting, cooling cloth to forehead. Will continue to check on progress of lab results. Note resident has history of Klebsiella pneumoniae in previous Urine and Blood culture results.
[2024-10-09 13:21] LABS: COVID-19 Antigen (In-House) Negative (Negative)
[2024-10-09 13:22] LABS: Influenza A Ag Negative; Influenza B Ag Negative
--- NOTE | 2024-10-09 15:45 | PC.IP ---
Resident resting, alert. Skin cool. SRINI Bal stated that resident had begun 'to shiver' and single warm bath blanket was placed for comfort, cooling measures held, fan on low. Continue to wait for UA after new Hobson catheter placed; output not sufficient for specimen. Spoke with Yared Chun RN regarding previous incident of high WBC's and low H & H. Resident had been admitted to ED/acute for that incident and KRISTINE Gates consulted. 'Likely bacteremic' and was treated with Cephalosporin. This related to Lay MEJIA.
[2024-10-09 16:00] LABS: Collection Type, Urine Catheter
[2024-10-09 16:20] LABS: Bacteria,Urine Rare; Bilirubin,Urine Negative (Negative); Blood,Urine 2+ (Negative); Color,Urine Yellow (Lt Yel-Yel); Glucose, Urine Negative (Negative); Ketones,Urine Negative (Negative); Leukocyte Esterase,Urine Positive (Negative); Nitrite,Urine Negative (Negative); PH,Urine 8.5 (5.0-7.0); Protein,Urine 2+ (Neg - Trace); RBC,Urine 201 /hpf (0-3); Specific Gravity,Urine 1.016 (1.001-1.035); Squamous Epithelial Cell,Urine 1 /hpf (0-5); Urobilinogen,Urine Negative mg/dL (0.0-1.0); WBC,Urine 200 /hpf (0-5)
[2024-10-09 16:32] LABS: Clarity,Urine Hazy (Clear/Hazy); Culture Indicated,Urine Yes
--- NOTE | 2024-10-09 17:20 | PC.RT ---
Patient transferred to ED
--- NOTE | 2024-10-09 19:41 | PC.NURSE ---
Addendum entered by Lay Eastman RN 10/09/24 20:01: Late Entry for 10/09/24@1639: Change in condition. Temp increased to 103.1 rectal. Pt is now tachycardic at 121/min and tachypnea, face flushed, and sweating. Dr. Silverio called and notified of change and ordered to sent pt to ED. Report given to ED charge. Addendum entered by Lay Eastman RN 10/09/24 19:56: Late entry for 10/09/24@10:00; Fever protocal done for a repeated temp of 102.0 rectal. Colling measures continued and fever protocal done along with a CBC. Will continue to monitor pt's condition. Original Note: Late Entrance for 10/09/24@09: VEGETABLE GRADER approached this health underwriter and notified that pt's face appeared flushed and temperature was check and was at 102.7. Pt was started on cooling measures and tylenol 650mg provided by BUILDING ARCHITECT. This BUILDING ARCHITECT and VEGETABLE GRADER continued to monitor for any acute changes.
--- NOTE | 2024-10-09 21:59 | ESPR_ITS ---
Progress Note - SubAcute DIAGNOSIS (1) Chronic respiratory failure: Status: Chronic (2) Ventilator dependent: Status: Chronic (3) Chronic anoxic encephalopathy: Status: Chronic (4) Seizures: Status: Chronic (5) Urinary tract infection: Status: Acute (6) Tracheostomy dependence: Status: Chronic (7) PEG (percutaneous endoscopic gastrostomy) status: Status: Chronic (8) Essential hypertension: Status: Chronic OBJECTIVE Most recent vital signs: Last Vital Signs Temp 99.1 F 10/09/24 12:00 Pulse 76 10/09/24 12:47 Resp 18 10/09/24 12:00 BP 107/87 H 10/09/24 12:00 Pulse Ox 97 10/09/24 12:47 O2 Del Method Mechanical Ventilation 10/09/24 04:30 FiO2 30 10/09/24 12:47 Neurological:: awake (spontaneous eye opening, Has slowly started to track with her eyes and respond to simple commands by nodding her head and squeeze with her hands.) Speech:: none Answers questions:: yes (by simple gestures) Respiratory:: lungs clear and shallow breathing (Ventilator dependent) Cardiovascular: RRR Abdomen: nontender Extremities:: deformities Tracheostomy:: to ventilator Feeding per:: G tube Complaints:: none ASSESSMENT & PLAN Assessment: 69 yrs of age female with Hypertension/hyperlipidemia/epilepsy, recently treated in acute care for UTI sepsis with Kleibsella pn. and on Cefuroxime 500mgs bid for 14 days chronic encephalopathy/ chronic respiratory failure/ Ventilator depe ndent/Trach and feeding G tube as before. Interacting with staff by hand movements and gestures. Pt. spiked fever this morning and worsened inspite of cooling measures along with some respiratory d ifficulty and hence was transferred to ER and possible admission to acute care Plan: Current treatment and ventilator settings reviewed and continuued.
--- NOTE | 2024-10-13 13:03 | PC.NURSE ---
Late Entry for 10/09/24@1419: Dr. Silverio called and notified of patient change in condition and ordered to be sent out to ED.
--- NOTE | 2024-10-24 07:49 | ESDS_ITS ---
RE: YOANDY SANDOVAL : 1955 DATE OF ADMISSION: 09/16/2024 DATE OF DISCHARGE: 10/09/2014 DATE OF ADMISSION: 09/16/2024 DATE OF DISCHARGE: 10/09/2024 ADMITTING DIAGNOSES: Chronic respiratory failure/hypoxia, ventilator dependent with tracheostomy and a feeding G-tube in place with essential hypertension and chronic encephalopathy and seizure disorders. DISCHARGE DIAGNOSES: Chronic respiratory failure/hypoxia, ventilator dependent with tracheostomy and a feeding G-tube in place with essential hypertension and chronic encephalopathy and seizure disorders with associated fever, leukocytosis, acute urinary tract infection with possible sepsis. HOSPITAL COURSE AND RELEVANT DATA: From [facility]. The patient has been a resident of the [facility] at [facility] for several months now with the last admission on 09/16/2024 with the above-stated diagnoses. The patient has multiple organ compromise and requiring full support for all needs. General course remained fairly stable, ventilator dependent. Until on 10/09/2024, the patient reportedly developed fever. Fever workup was initiated, which suggested acute urinary tract infection with possible sepsis. Considering the patient's multiple organ compromise with acute UTI, the patient was transferred to the emergency room for possible admission to acute care, which finally took place. DT: 18:27:35 TT: 19:40:00 Ref: [id number] - TID: [id number]
== END 2024-10-09 16:53 | disposition short-term general hospital (02) | DRG 92 ==
PROVIDERS: Admitting Provider Specialist; PCP Specialist; Visit Provider Specialist
DX: G93.1 Anoxic brain damage, not elsewhere classified (principal); J96.11 Chronic respiratory failure with hypoxia; Z99.11 Dependence on respirator [ventilator] status; N39.0 Urinary tract infection, site not specified; Z93.0 Tracheostomy status; I10 Essential (primary) hypertension; Z93.1 Gastrostomy status; Z99.81 Dependence on supplemental oxygen; B96.1 Klebsiella pneumoniae [K. pneumoniae] as the cause of diseases classified elsewhere
CPT/HCPCS: 36415; 70450; 80053; 80061; 80177; 81001; 82947; 83036; 84145; 85025; 87040; 87077; 87086; 87186; 87205; 87502; 87811; 94004; 94640; 95816; 97003; 97165

== ENCOUNTER 2024-09-17 23:14 | Emergency (ER) | payer MEDICARE, MEDICAID, SELFPAY ==
[2024-09-17 23:15] VITALS: BP 150/69; PULSE 94; RESP 18; TEMP 38.1; O2SAT 96
[2024-09-17 23:27] VITALS: O2SAT 96
[2024-09-17 23:30] VITALS: PULSE 95; RESP 28; O2SAT 96; O2SAT 99
[2024-09-17 23:35] VITALS: O2SAT 91
[2024-09-17 23:40] VITALS: O2SAT 94
[2024-09-18 01:16] VITALS: BP 148/65; PULSE 91; RESP 19; TEMP 38; O2SAT 96
[2024-09-18 01:17] VITALS: BP 148/65; RESP 26; O2SAT 98
--- NOTE | 2024-09-18 01:39 | XR_ITS ---
Examination: AP chest single view TECHNIQUE: AP portable semiupright chest single view Date and time: 05/21/2024 at 0145 hours INDICATION: Chest pain today. FINDINGS: Tracheostomy tube tip 4.3 cm above michael Reduced inspiratory effort Prominent osteopenia Minor atelectasis left base No lobar pneumonia IMPRESSION: No pneumonia or pulmonary edema
[2024-09-18 02:14] LABS: Basophils # (Auto) 0.2 Thou/mm3 (0.0-0.2); Basophils % (Auto) 1 % (0-2.5); Eosinophils # (Auto) 0.2 Thou/mm3 (0.0-0.5); Eosinophils % (Auto) 1 % (0-10); Hematocrit 31.7 % (36.0-46.0); Hemoglobin 10.1 g/dL (12.0-16.0); Immature Granulocytes % (Auto) 6 % (0-0); Immature Granulocytes Auto 1.18 Thou/mm3 (0.00-0.00); Lactate (Lactic Acid) 1.9 mMol/L (0.4-2.0); Lymphocytes # (Auto) 2.5 Thou/mm3 (1.0-4.8); Lymphocytes % (Auto) 14 % (10-50); Mean Corpuscular HGB Conc 31.9 g/dl (31.0-37.0); Mean Corpuscular Hemoglobin 29.5 pg (25.0-35.0); Mean Corpuscular Volume 93 fL (80-100); Monocytes # (Auto) 2.4 Thou/mm3 (0.0-0.8); Monocytes % (Auto) 13 % (0-12); Neutrophils % (Auto) 65 % (37-80); Nucleated Red Blood Cell % 0 /100 WBC (0); Platelet Count 335 Thou/mm3 (140-440); RDW Standard Deviation 56.9 fL (36.4-46.3); Red Blood Count 3.42 Miln/mm3 (4.00-5.20); White Blood Count 18.4 Thou/mm3 (3.6-11.0)
[2024-09-18 02:29] LABS: INR 1.1 (0.9-1.3); Partial Thromboplastin Time 27.6 Seconds (22.0-36.0); Prothrombin Time 12.1 Seconds (9.0-12.2)
[2024-09-18 02:39] LABS: B-Type Natriuretic Peptide 23 pg/mL (0-100)
[2024-09-18 02:45] LABS: Collection Type, Urine Clean Catch; Squamous Epithelial Cell,Urine 0 /hpf (0-5)
[2024-09-18 02:48] LABS: Alanine Aminotransferase 12 U/L (10-49); Albumin, Serum 3.4 gm/dL (3.4-4.8); Albumin/Globulin Ratio 1.1 (1.2-2.2); Alkaline Phosphatase 69 U/L (46-116); Anion Gap 3 (7-16); Aspartate Amino Transferase 26 U/L (0-34); BUN/Creatinine Ratio 32 Ratio (12-20); Bilirubin,Total 0.2 mg/dL (0.3-1.2); Blood Urea Nitrogen 19 mg/dL (9-23); Calcium 8.7 mg/dL (8.3-10.6); Calcium (Corrected) 9.2 mg/dL (8.5-10.1); Chloride 95 mMol/L (98-107); Creatinine (Component) 0.6 mg/dL (0.6-1.3); Globulin 3.2 gm/dL (2.3-3.5); Glucose 98 mg/dL (74-106); Lipase 68 U/L (12-53); Magnesium 2.2 mg/dL (1.6-2.6); Osmolality,Calculated 274 (275-295); Potassium 4.8 mMol/L (3.4-5.1); Procalcitonin 0.38 ng/ml (0.0-0.49); Sodium 136 mMol/L (136-145); Total Protein 6.6 gm/dL (5.7-8.2); Troponin I < 0.002 ng/mL (0.0-0.045); eGFR > 60 See Note
[2024-09-18 03:07] LABS: Bacteria,Urine Rare; Bilirubin,Urine Negative (Negative); Blood,Urine 1+ (Negative); Clarity,Urine Clear (Clear/Hazy); Color,Urine Lt-Yellow (Lt Yel-Yel); Glucose, Urine Negative (Negative); Ketones,Urine Negative (Negative); Leukocyte Esterase,Urine Negative (Negative); Nitrite,Urine Negative (Negative); PH,Urine 7.5 (5.0-7.0); Protein,Urine 1+ (Neg - Trace); RBC,Urine 58 /hpf (0-3); Specific Gravity,Urine 1.016 (1.001-1.035); Urobilinogen,Urine Negative mg/dL (0.0-1.0); WBC,Urine 8 /hpf (0-5)
--- NOTE | 2024-09-18 03:24 | EDNOTE_ITS ---
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 No pain reported by staff overall. No other concerns or complaints expressed at this time. Related Data Home Medications ?Medication ?Instructions ?Recorded ?Confirmed acetaminophen 325 mg tablet 650 mg G-tube Q4HR PRN FEV ER > 101 09/13/24 09/12/24 acetaminophen 325 mg tablet 650 mg G-tube Q6HR PRN Ric n Scale 09/13/24 09/12/24 1-3 (Mild artificial 2 drp Both eyes Q8HR 5 09/12/24 tears([id number]) 0.1 %-0.3 %-0.2 % eye drops (GenTeal Tears Moderate) aspirin 81 mg chewable tablet 81 mg G-tube QDAY 09/12/24 atorvastatin 20 mg tablet 40 mg G-tube HS 09/13/24 bisacodyl 10 mg rectal suppository 10 mg MN PRN PRN No BM Per Bowel 09/13/24 09/12/24 (Dulcolax (bisacodyl)) Management Protocol buspirone 10 mg tablet 10 mg G-tube BID 09/13/24 cholecalciferol (vitamin D3) 25 25 mcg G-tube BID 08/2609/12/24 mcg (1,000 unit) tablet enoxaparin 40 mg/0.4 mL 40 mg SCi QDAY 09/13/2408/25 subcutaneous syringe glucagon 1 mg/0.2 mL subcutaneous 1 mg IM Q15MIN PRN H ypoglycemia 09/13/24 09/12/24 solution (Gvoke) guaifenesin 100 mg/5 mL oral 300 mg G-tube Q6HR PRN Co ugh 09/13/24 09/12/24 liquid (Taylor-Tussin) insulin lispro 100 unit/mL See Rx Instructions SCi 06, 18 09/13/24 09/12/24 subcutaneous pen ipratropium 0.5 mg-albuterol 3 mg 3 ml INH Q2HR PRN Wh eezing 09/13/24 09/12/24 (2.5 mg base)/3 mL nebulization soln levetiracetam 100 mg/mL oral 1,000 mg G-tube BID 09/1309/12/24 solution magnesium hydroxide 400 mg/5 mL 30 ml G-tube PRN PRN C onstipation 09/13/24 09/12/24 oral suspension (Milk of Magnesia) polyethylene glycol 3350 17 gram 17 g G-tube PRN PRN N o BM Per 09/13/24 09/12/24 oral powder packet Bowel Management Protocol sodium phosphates 19 gram-7 133 ml MN PRN PRN No BM Pe r Bowel 09/13/24 09/12/24 gram/118 mL enema (Fleet Enema) Management Protocol valproic acid (as sodium salt) 250 500 mg G-tube TID 0 09/13/24 09/12/24 mg/5 mL oral solution Previous Rx's ?Medication ?Instructions ?Recorded Gvoke 1mg/0.2 Ml 1 mg IM Q15MIN PRN Hypocalce everett 30 09/16/24 days #1 mg acetaminophen 325 mg tablet 650 mg (2 x 325 mg) G-tube Q4HR 09/16/24 PRN Fever > 100.4 7 days acetaminophen 325 mg tablet 650 mg (2 x 325 mg) G-tube Q6HR 09/16/24 PRN PAIN 30 days artificial 2 drp Both eyes Q8HR 30 days 09/16/24 tears(nwthnhh-[id number]-zbbrbnq) 0.1 %-0.3 %-0.2 % eye drops (GenTeal Tears Moderate) aspirin 81 mg chewable tablet 81 mg G-tube QDAY 30 day s #30 tabs 09/16/24 atorvastatin 20 mg tablet 20 mg G-tube HS hyperlipidem ia 30 09/16/24 days #30 tabs bisacodyl 10 mg rectal suppository 10 mg MN PRN PRN No BM Per Bowel 09/16/24 (Dulcolax (bisacodyl)) Management Protocol 365 days buspirone 10 mg tablet 10 mg G-tube BID depression 30 09/16/24 days #60 tabs carbamide peroxide 6.5 % ear drops 5 drp otic (ear) Q6 1D 30 days 09/16/24 (Ear Wax Removal Drops) carbamide peroxide 6.5 % ear drops 5 drp otic (ear) Q6 1D 30 days 09/16/24 (Ear Wax Removal Drops) carbamide peroxide 6.5 % ear drops 5 drp otic (ear) Q6 1D 30 days 09/16/24 (Ear Wax Removal Drops) carbamide peroxide 6.5 % ear drops 5 drp otic (ear) Q6 1D 30 days 09/16/24 (Ear Wax Removal Drops) carbamide peroxide 6.5 % ear drops 5 drp otic (ear) Q6 1D 30 days 09/16/24 (Ear Wax Removal Drops) carbamide peroxide 6.5 % ear drops 5 drp otic (ear) Q6 1D 30 days 09/16/24 (Ear Wax Removal Drops) carbamide peroxide 6.5 % ear drops 5 drp otic (ear) Q6 1D 30 days 09/16/24 (Ear Wax Removal Drops) carbamide peroxide 6.5 % ear drops 5 drp otic (ear) Q6 1D 30 days 09/16/24 (Ear Wax Removal Drops) cholecalciferol (vitamin D3) 25 25 mcg PO BID for supp lement 30 09/16/24 mcg (1,000 unit) tablet days #30 tabs enoxaparin 40 mg/0.4 mL 40 mg (0.4 mL) SCi QDAY DVT 09/16/24 subcutaneous syringe prophylaxis 90 days #36 mL guaifenesin 100 mg/5 mL oral 300 mg (15 mL) G-tube Q6H R PRN 09/16/24 liquid (Taylor-Tussin) Cough 30 days insulin lispro 100 unit/mL See Rx Instructions SCi Q6H R DM 30 09/16/24 subcutaneous pen days #0 mL ipratropium 0.5 mg-albuterol 3 mg 3 ml INH Q2HR PRN Wh eezing/sob 30 09/16/24 (2.5 mg base)/3 mL nebulization days soln levetiracetam 100 mg/mL oral 1,000 mg (10 mL) G-tube B ID 09/16/24 solution seizure 30 days #300 mL magnesium hydroxide 400 mg/5 mL 30 ml G-tube PRN PRN C onstipation 09/16/24 oral suspension (Milk of Magnesia) 365 days polyethylene glycol 3350 17 gram 17 g G-tube PRN PRN N o BM Per 09/16/24 oral powder packet Bowel Management Protocol 36 5 days sodium phosphates 19 gram-7 133 ml MN PRN PRN No BM Pe r Bowel 09/16/24 gram/118 mL enema (Fleet Enema) Management Protocol 36 5 days valproic acid (as sodium salt) 250 500 mg (10 mL) G-tu be BID seizures 09/16/24 mg/5 mL oral solution 30 days #300 mL cefuroxime axetil 500 mg tablet 500 mg PO BID UTI 14 d ays #9 tabs 09/17/24 lorazepam 2 mg/mL injection 0.5 mg (0.25 mL) IM PRNMRX 1 PRN 09/18/24 solution Seizure Activity 365 days Allergies Allergy/AdvReac Type Severity Reaction Status Date / Time codeine Allergy Verified 06/24/24 19:33 Review of Systems Review of Systems ROS Unobtainable: due to endotracheal tube Past Medical History Past Medical History NEUROLOGIC: Positive Neurological Disorders (chronic encephalopathy), Dementia, Seizures and Epilepsy CARDIAC: Positive Cardiac Disorders, Hypercholesterolemia and Hypertension RESPIRATORY: Positive Asthma GASTROINTESTINAL: Positive Gastrointestinal Disorders (peg tube) ENDOCRINE: Positive Diabetes Mellitus Type 2 Surgical History SURGICAL: Positive Gastrostomy (pegtube) ED Exam Narrative Physical exam: GENERAL APPEARANCE: alert and oriented x 4, well-developed, well-nourished, no acute distress VITALS: All vitals were reviewed and the pulse ox is 96% on room air, which is normal according to my interpretation. HEENT: Normocephalic, atraumatic; pupils equal, round, reactive to light; EOMI; mucous membranes pink, moist; oropharynx clear NECK: Supple LUNGS: CTABL; no wheezes, no rales, no rhonchi HEART: Regular rate, regular rhythm; normal S1, S2; no murmurs ABDOMEN: non distended; normal BS; soft, no tenderness, no guarding, no rebound; no masses, no organomegaly, no hernia BACK: no CVA tenderness EXTREMITIES: atraumatic; no edema NEUROLOGIC: awake; alert and oriented x4; cranial nerves II-XII grossly intact; facial twitching, responds to verbal and painful stimuli, chronic hoisting of extremities PSYCHIATRIC: appropriate mood and affect SKIN: warm, dry, normal color; no rashes Course Quality Measures none Orders Category Date Time Status Judicial Law Clerk NOW Care 09/18/24 01:39 Completed EKG (ED ONLY) *Do not use* NOW Care 09/18/24 01:39 Completed EKG (ED Only) Stat Exams 09/18/24 01:39 Ordered XR chest 1V portable Stat Exams 09/18/24 01:39 Taken B-Type Natriuretic Peptide Stat Lab 09/18/24 02:00 Completed Blood Culture (Lab) Stat Lab 09/18/24 02:00 Received CBC Stat Lab 09/18/24 02:00 Completed Comprehensive Metabolic Panel Stat Lab 09/18/24 02:00 Completed Lactate (Lactic Acid) Stat Lab 09/18/24 02:00 Completed Lipase Stat Lab 09/18/24 02:00 Completed Magnesium Stat Lab 09/18/24 02:00 Completed Partial Thromboplastin Time Stat Lab 09/18/24 02:00 Completed Procalcitonin Stat Lab 09/18/24 02:00 Completed Prothrombin Time with INR Stat Lab 09/18/24 02:00 Completed Troponin I Stat Lab 09/18/24 02:00 Completed Urinalysis Stat Lab 09/18/24 02:40 Completed Urine Culture Stat Lab 09/18/24 02:40 Received LORazepam [Ativan Inj] Med 09/17/24 23:47 Discontinued 2 mg IVP X1 ONE Volume Ventilator Stat RT 09/17/24 Active Vital Signs Vital signs: Vital Signs Temperature 100.6 F H 09/17/24 23:15 Pulse Rate 94 09/17/24 23:15 Respiratory Rate 18 09/17/24 23:15 Blood Pressure 150/69 H 09/17/24 23:15 Pulse Oximetry (%) 96 09/17/24 23:15 Oxygen Delivery Method Mechanical Ventilation 09/17/24 23:15 Fraction of Inspired Oxygen 30 09/17/24 23:15 Discharge Plan Plan Patient Disposition: Xfer Alf Acute Prescriptions/Referrals Prescriptions/Med Rec: No Action aspirin 81 mg Tablet,Chewable 81 mg G-tube QDAY Patient Comments: For DVT prevention Rx Instructions: Give one tab daily PGT for DVT prevention atorvastatin 20 mg Tablet 40 mg G-tube HS Patient Comments: For Hyperlipidemia Gvoke 1 mg/0.2 mL Solution 1 mg IM Q15MIN PRN (Reason: Hypoglycemia) Patient Comments: for BG <70 and no IV access bisacodyl [Dulcolax (bisacodyl)] 10 mg Suppository 10 mg MN PRN PRN (Reason: No BM Per Bowel Management Protocol) Rx Instructions: Administer as needed on 6th shift, if MOM ineffective. polyethylene glycol 3350 17 gram Powder In Packet 17 g G-tube PRN PRN (Reason: No BM Per Bowel Management Protocol) Patient Comments: Administer as needed if 2nd round bowel protocol ineffective. Rx Instructions: Mix with 4oz of water before giving. Hold tube feeding for 30 minutes after administration. Notify provider if no results from Miralax. magnesium hydroxide [Milk of Magnesia] 400 mg/5 mL Suspension 30 ml G-tube PRN PRN (Reason: Constipation) Rx Instructions: CONC: 400MG/5ML Fleet Enema 19-7 gram/118 mL Enema 133 ml MN PRN PRN (Reason: No BM Per Bowel Management Protocol) Patient Comments: If Dulcolax is ineffective on 3rd day / 7th shift, give Fleets enema per Bowel Management Protocol. Notify MD if no results from Enema. acetaminophen 325 mg Tablet 650 mg G-tube Q6HR PRN (Reason: Pain Scale 1-3 (Mild) Rx Instructions: Do not exceed 3gm a day from any source in 24 hours. levetiracetam 100 mg/mL Solution 1,000 mg G-tube BID Rx Instructions: give [id number] for seizures cholecalciferol (vitamin D3) 25 mcg (1,000 unit) Tablet 25 mcg G-tube BID Patient Comments: Supplement artificial tear([id number]) [GenTeal Tears Moderate] 0.1-0.3-0.2 % Drops 2 drp Both eyes Q8HR Rx Instructions: FOR DRYNESS guaifenesin [Taylor-Tussin] 100 mg/5 mL Liquid 300 mg G-tube Q6HR PRN (Reason: Cough) Rx Instructions: Conc: 100MG/5ML- give 300mg/15ml insulin lispro 100 unit/mL Insulin Pen See Rx Instructions SCi Patient Comments: For DM 2 Rx Instructions: Per Sliding Scale Lispro Insulin Sliding Scale coverage : 0-150= 0 units, 151-200= 2 units, 201-250= 4 units, 251-300= 6 units, 301-350= 8 units, 351-400= 10 units, > 400= 12 units and call MD. ipratropium-albuterol 0.5 mg-3 mg(2.5 mg base)/3 mL Solution For Nebulization 3 ml INH Q2HR PRN (Reason: Wheezing) enoxaparin 40 mg/0.4 mL Syringe 40 mg SCi QDAY Patient Comments: for DVT prevention x 3 months buspirone 10 mg Tablet 10 mg G-tube BID Patient Comments: For anxiety as manifested by rejection of care Rx Instructions: Continue Buspirone 10mg BID x30 days then re-evaluate with MD. valproic acid (as sodium salt) 250 mg/5 mL Solution 500 mg G-tube TID Patient Comments: for seizures Rx Instructions: Valproic acid 250/5ml chelsey. Give 500mg (10ml) PGT for seizures acetaminophen 325 mg Tablet 650 mg G-tube Q4HR PRN (Reason: FEVER > 101) Patient Comments: Do not exceed 3gm of Tylenol in 24Hr. from all sources x7 days re-eval Rx Instructions: 650mg Q4H PGT as needed for fever bisacodyl [Dulcolax (bisacodyl)] 10 mg suppository 10 mg MN PRN PRN (Reason: No BM Per Bowel Management Protocol) 365 Days 0RF Rx Instructions: Administer as needed on 6th shift, if MOM ineffective. polyethylene glycol 3350 17 gram powder in packet 17 g G-tube PRN PRN (Reason: No BM Per Bowel Management Protocol) 365 Days 0RF Label Comments: Administer as needed if 2nd round bowel protocol ineffective. Rx Instructions: Mix with 4oz of water before giving. Hold tube feeding for 30 minutes after administration. Notify provider if no results from Miralax. magnesium hydroxide [Milk of Magnesia] 400 mg/5 mL suspension 30 ml G-tube PRN PRN (Reason: Constipation) 365 Days 0RF Rx Instructions: CONC: 400MG/5ML Fleet Enema 19-7 gram/118 mL enema 133 ml MN PRN PRN (Reason: No BM Per Bowel Management Protocol) 365 Days 0RF Label Comments: If Dulcolax is ineffective on 3rd day / 7th shift, give Fleets enema per Bowel Management Protocol. Notify MD if no results from Enema. acetaminophen 325 mg tablet 650 mg G-tube Q6HR PRN (Reason: PAIN) 30 Days 0RF Rx Instructions: not to exceed 3 gms of tylenol in 24 hours from all other sources acetaminophen 325 mg tablet 650 mg G-tube Q4HR PRN (Reason: Fever > 100.4) 7 Days 0RF Rx Instructions: not to exceed 3 gms of tylenol in 24 hours from all other sources x 7 days artificial tear([id number]) [GenTeal Tears Moderate] 0.1-0.3-0.2 % drops 2 drp Both eyes Q8HR 30 Days 0RF Rx Instructions: FOR DRYNESS aspirin 81 mg tablet,chewable 81 mg G-tube QDAY 30 Days Qty: 30 0RF atorvastatin 20 mg tablet 20 mg G-tube HS 30 Days Qty: 30 0RF buspirone 10 mg tablet 10 mg G-tube BID 30 Days Qty: 60 0RF Label Comments: AMB sadness, refusal of care Rx Instructions: x 30 days, re-eval cholecalciferol (vitamin D3) 25 mcg (1,000 unit) tablet 25 mcg PO BID 30 Days Qty: 30 0RF levetiracetam 100 mg/mL solution 1,000 mg G-tube BID 30 Days Qty: 300 0RF Rx Instructions: conc 100mg/ml solution give 10 ml valproic acid (as sodium salt) 250 mg/5 mL solution 500 mg G-tube BID 30 Days Qty: 300 0RF Rx Instructions: conc 250 mg/5 ml solution give 10 ml ipratropium-albuterol 0.5 mg-3 mg(2.5 mg base)/3 mL solution for nebulization 3 ml INH Q2HR PRN (Reason: Wheezing/sob) 30 Days 0RF enoxaparin 40 mg/0.4 mL syringe 40 mg SCi QDAY 90 Days Qty: 36 0RF Rx Instructions: x 3 months, re-eval guaifenesin [Taylor-Tussin] 100 mg/5 mL liquid 300 mg G-tube Q6HR PRN (Reason: Cough) 30 Days 0RF Rx Instructions: Conc: 100MG/5ML give 15 ml Gvoke 1mg/0.2 Ml 1 mg IM Q15MIN PRN (Reason: Hypocalcemia) 30 Days Qty: 1 0RF Label Comments: for blood glucose <70 and no IV access Ear Wax Removal Drops 6.5 % drops 5 drp otic (ear) Q61D 30 Days 0RF Label Comments: 5 drops per ear at first med pass of shift. Then irrigate ears with NS at next med pass of each shift x 4 days for wax build up. Ear Wax Removal Drops 6.5 % drops 5 drp otic (ear) Q61D 30 Days 0RF Rx Instructions: 5 drops per ear at first med pass of shift. Then irrigate ears with NS at next med pass of each shift x 4 days for wax build up. *Start on the of the month, every two months. Ear Wax Removal Drops 6.5 % drops 5 drp otic (ear) Q61D 30 Days 0RF Label Comments: 5 drops per ear at first med pass of shift. Then irrigate ears with NS at next med pass of each shift x 4 days for wax build up. Ear Wax Removal Drops 6.5 % drops 5 drp otic (ear) Q61D 30 Days 0RF Rx Instructions: 5 drops per ear at first med pass of shift. Then irrigate ears with NS at next med pass of each shift x 4 days for wax build up. *Start on the of the month, every two months. Ear Wax Removal Drops 6.5 % drops 5 drp otic (ear) Q61D 30 Days 0RF Label Comments: 5 drops per ear at first med pass of shift. Then irrigate ears with NS at next med pass of each shift x 4 days for wax build up. Ear Wax Removal Drops 6.5 % drops 5 drp otic (ear) Q61D 30 Days 0RF Rx Instructions: 5 drops per ear at first med pass of shift. Then irrigate ears with NS at next med pass of each shift x 4 days for wax build up. *Start on the of the month, every two months. Ear Wax Removal Drops 6.5 % drops 5 drp otic (ear) Q61D 30 Days 0RF Label Comments: 5 drops per ear at first med pass of shift. Then irrigate ears with NS at next med pass of each shift x 4 days for wax build up. Ear Wax Removal Drops 6.5 % drops 5 drp otic (ear) Q61D 30 Days 0RF Label Comments: 5 drops per ear at first med pass of shift. Then irrigate ears with NS at next med pass of each shift x 4 days for wax build up. insulin lispro 100 unit/mL insulin pen See Rx Instructions SCi Q6HR 30 Days Qty: 0 0RF Rx Instructions: Per Sliding Scale as follows: 0-150= 0 units; 151-200= 2 units; 201-250= 4 units; 251-300= 6 units; 301-350= 8 units; 351-400= 10 units; >400= 12 units; and call MD cefuroxime axetil 500 mg tablet 500 mg PO BID 9 Days Qty: 9 0RF Label Comments: CBC on september 25, (9th day of antibiotic) then re-eval. . order 10 days on antibiotic. lorazepam 2 mg/mL solution 0.5 mg IM PRNMRX1 PRN (Reason: Seizure Activity) 365 Days 0RF Label Comments: Ativan 2mg/ml IM for seizure, if seizure persists administer second dose of Ativan 2mg/ml IM. If Ativan is not effective send resident to ER for further evaluation and notify MD. Referrals: Lalo Silverio MD [Primary Care Provider] - In 1 week Problem List Clinical Impression: Facial twitching, Leukocytosis Patient/Caregiver Discharge Instructions Print Language: Bruneian Stand Alone Forms: Johana Award Info., Patient Portal Info Letter MDM Narrative [facility] hospital course: Scribe Attestation: Brandy Paz, am scribing for and in the presence of Dr. Pantoja. Provider Notation: Although this document has been carefully reviewed, there may still be some phonetic and other typographical errors.? These errors are purely grammatical due to imperfections in the software program and should not be construed in any way to? compromise the substance of the patient's medical care during this visit. Clinical Information Provided by other: Nursing staff Medical Records Reviewed [facility] [place] and custodial Reviewed prior ED records from 09/12/24. Patient was seen for PEG (percutaneous endoscopic gastrostomy) status. Meds/Rx Considered, not Ordered None Labs/Rad/Tests considered, not Ordered None Chronic Illness/Social Conditions which may negatively complicate care or outcome(s)-explain: custodial/debilitated Add or document further as needed: Chronic encephalopathy, Dementia, Seizures, Epilepsy, Hypercholesterolemia, Hypertension, Asthma, Diabetes Mellitus Type 2 EKG EKG not done Lab Interpretation Labs: interpreted by me and see narrative above Imaging Imaging interpretation: interpreted by me Radiology reports / interpretation(s): Pending official radiology report. Medication Administration(s) Medication Administration History Discontinued Medications Lorazepam (Lorazepam 2 Mg/Ml Vial) 2 mg IVP X1 ONE Stop: 09/17/24 23:48 Last Admin: 09/18/24 04:21 Dose: Not Given Documented By: CM Non-Admin Reason: Other, see note See above if any. Diagnosis Differential diagnosis: hemifacial spasm, Small's palsy with aberrant regeneration, blepharospasm Most likely dx, and/or detailed dx discussion: Facial twitching, Leukocytosis Dispositon Disposition: Nursing/Care Disposition comments: Return to sub-acute
[2024-09-18 04:05] VITALS: BP 115/58; PULSE 102; RESP 23; TEMP 38; O2SAT 97
== END 2024-09-18 04:48 ==
PROVIDERS: Emergency Provider Emergency Medicine; PCP Specialist
DX: G93.49 Other encephalopathy (principal); G40.909 Epilepsy, unspecified, not intractable, without status epilepticus; D72.829 Elevated white blood cell count, unspecified; F03.90 Unspecified dementia, unspecified severity, without behavioral disturbance, psychotic disturbance, mood disturbance, and anxiety; R07.9 Chest pain, unspecified
CPT/HCPCS: 36415; 71045; 80053; 81001; 83605; 83690; 83735; 83880; 84145; 84484; 85025; 85610; 85730; 87040; 87077; 87086; 87186; 93005; 99283

== ENCOUNTER 2024-10-09 16:53 | Inpatient (IN) | payer MEDICARE, MEDICAID, SELFPAY ==
[2024-10-09] VITALS (10 sets, daily range): BP systolic 84–145; BP diastolic 41–81; PULSE 32–114; RESP 18–34; TEMP 38.1–39.2; O2SAT 95–100; BMI 25.8
--- NOTE | 2024-10-09 17:04 | EDNOTE_ITS ---
ED Fever RME/HPI General Chief Complaint: Fever Stated Complaint: FEVER Time Seen by Provider: 10/09/24 17:03 Arrival date/time: 10/09/24 16:53 Limitations: no limitations RME / HPI RME / HPI Narrative: Patient is a 69-year-old nonverbal female with PMH of epilepsy, hypertension, hyperlipidemia, diabetes mellitus and status post trach/PEG who presented from subacute facility to the ED with AMS after patient found to have high-grade fever and leukocytosis. Related Data Previous Rx's ?Medication ?Instructions ?Recorded carbamide peroxide 6.5 % ear drops 5 drp otic (ear) Q6 1D 30 days 09/16/24 (Ear Wax Removal Drops) carbamide peroxide 6.5 % ear drops 5 drp otic (ear) Q6 1D 30 days 09/16/24 (Ear Wax Removal Drops) carbamide peroxide 6.5 % ear drops 5 drp otic (ear) Q6 1D 30 days 09/17/24 (Ear Wax Removal Drops) carbamide peroxide 6.5 % ear drops 5 drp otic (ear) Q6 1D 30 days 09/17/24 (Ear Wax Removal Drops) carbamide peroxide 6.5 % ear drops 5 drp otic (ear) Q6 1D 30 days 09/18/24 (Ear Wax Removal Drops) carbamide peroxide 6.5 % ear drops 5 drp otic (ear) Q6 1D 30 days 09/18/24 (Ear Wax Removal Drops) carbamide peroxide 6.5 % ear drops 5 drp otic (ear) Q6 1D 30 days 09/19/24 (Ear Wax Removal Drops) carbamide peroxide 6.5 % ear drops 5 drp otic (ear) Q6 1D 30 days 09/19/24 (Ear Wax Removal Drops) Gvoke 1mg/0.2 Ml 1 mg IM Q15MIN PRN Hypocalce everett 30 09/21/24 days #1 mg lorazepam 2 mg/mL injection 0.5 mg (0.25 mL) IM PRNMRX 1 PRN 09/21/24 solution Seizure Activity 365 days acetaminophen 325 mg tablet 650 mg (2 x 325 mg) G-tube Q4HR 09/23/24 PRN FEVER > 101 30 days acetaminophen 325 mg tablet 650 mg (2 x 325 mg) G-tube Q6HR 06/30/25 PRN Pain Scale 1-3 (Mild 30 days artificial 2 drp Both eyes Q8HR 30 days 09/23/24 tears([id number]) 0.1 %-0.3 %-0.2 % eye drops (GenTeal Tears Moderate) aspirin 81 mg chewable tablet 81 mg G-tube QDAY 30 day s #30 tabs 09/23/24 atorvastatin 20 mg tablet 40 mg (2 x 20 mg) G-tube HS 30 09/23/24 days #60 tabs bisacodyl 10 mg rectal suppository 10 mg KS PRN PRN No BM Per Bowel 09/23/24 (Dulcolax (bisacodyl)) Management Protocol 30 days buspirone 10 mg tablet 10 mg G-tube BID anxiety 30 days 09/23/24 #30 tabs cholecalciferol (vitamin D3) 25 25 mcg G-tube BID 30 d ays #30 tabs 09/23/24 mcg (1,000 unit) tablet glucagon 1 mg/0.2 mL subcutaneous 1 mg (0.2 mL) IM Q15 MIN PRN 09/23/24 solution (Gvoke) Hypoglycemia 30 days guaifenesin 100 mg/5 mL oral 300 mg (15 mL) G-tube Q6H R PRN 09/23/24 liquid (Taylor-Tussin) Cough 30 days ipratropium 0.5 mg-albuterol 3 mg 3 ml INH Q2HR PRN Wh eezing 30 days 09/23/24 (2.5 mg base)/3 mL nebulization soln levetiracetam 100 mg/mL oral 1,000 mg (10 mL) G-tube B ID 30 09/23/24 solution days #300 mL magnesium hydroxide 400 mg/5 mL 30 ml G-tube PRN PRN C onstipation 09/23/24 oral suspension (Milk of Magnesia) 30 days polyethylene glycol 3350 17 gram 17 g G-tube PRN PRN N o BM Per 09/23/24 oral powder packet Bowel Management Protocol 30 days sodium phosphates 19 gram-7 133 ml KS PRN PRN No BM Pe r Bowel 09/23/24 gram/118 mL enema (Fleet Enema) Management Protocol 30 days valproic acid (as sodium salt) 250 500 mg (10 mL) G-tu be TID 30 days 09/23/24 mg/5 mL oral solution #300 mL enoxaparin 40 mg/0.4 mL 40 mg (0.4 mL) SCi QDAY 90 d ays 09/24/24 subcutaneous syringe #36 mL insulin lispro 100 unit/mL See Rx Instructions SCi 06, 18 DM 09/24/24 subcutaneous pen 30 days #0 mL Allergies Allergy/AdvReac Type Severity Reaction Status Date / Time codeine Allergy Verified 06/24/24 19:33 Review of Systems Review of Systems Systems Reviewed: All systems reviewed, normal except as documented Physical Exam General Limitations: no limitations General appearance: alert and in no apparent distress Head Head exam: atraumatic Eye Eye exam: Present normal appearance, PERRL and EOMI ENT ENT exam: Present normal exam, normal oropharynx and mucous membranes moist Neck Neck exam: Present normal inspection, full ROM and trachea midline Chest Chest inspection: Present normal inspection and symmetric chest wall rise Respiratory Respiratory exam: Present respiratory distress and other (Crackles are noticed diffusely bilaterally) Cardiovascular Cardiovascular exam: Present regular rate, tachycardia and normal heart sounds Abdominal Exam Abdominal exam: Present soft and normal bowel sounds Extremities Exam Extremities exam: Present normal inspection and full ROM Back Exam Back exam: Present normal inspection and full ROM Neurological Exam Neurological exam: Present alert, oriented X3 and other (Patient is nonverbal. She does make eye contact during conversations.) Psychiatric Psychiatric exam: Present normal mood Skin Skin exam: Present warm, dry, intact and normal color ED Exam General Limitations: Present no limitations General appearance: Present alert and in no apparent distress Head Head exam: Present atraumatic Eye Eye exam: Present normal appearance, PERRL and EOMI ENT ENT exam: Present normal exam, normal oropharynx and mucous membranes moist Neck Neck exam: Present normal inspection, full ROM and trachea midline Chest Chest inspection: Present normal inspection and symmetric chest wall rise Respiratory Respiratory exam: Present respiratory distress and other (Crackles are noticed diffusely bilaterally) Cardiovascular Cardiovascular exam: Present regular rate, tachycardia and normal heart sounds Abdominal Exam Abdominal exam: Present soft and normal bowel sounds Extremities Exam Extremities exam: Present normal inspection and full ROM Back Exam Back exam: Present normal inspection and full ROM Neurological Exam Neurological exam: Present alert, oriented X3 and other (Patient is nonverbal. She does make eye contact during conversations.) Psychiatric Psychiatric exam: Present normal mood Skin Skin exam: Present warm, dry, intact and normal color Course Quality Measures none Orders Category Date Time Status Bedside Blood Glucose NOW Care 10/09/24 17:09 Active COVID-19 Screening Questionnaire NOW Care 10/09/24 21:02 Active House Wrecker Q4H START 00 Care 10/09/24 17:09 Active Decision to Admit X1 Care 10/09/24 21:02 Active EKG (ED ONLY) *Do not use* NOW Care 10/09/24 18:03 Completed Insert IV NOW Care 10/09/24 17:09 Active Strict Intake and Output Routine Care 10/09/24 17:09 Ordered EKG (ED Only) Stat Exams 10/09/24 18:03 Ordered XR chest 1V SEPSIS PROTOCOL Stat Exams 10/09/24 17:09 Completed BNP [B-Type Natriuretic Peptide] Stat Lab 10/09/24 17:17 Completed Blood Culture (Lab) Stat Lab 10/09/24 17:12 Received CBC Stat Lab 10/09/24 17:17 Completed CMP [Comprehensive Metabolic Panel] Stat Lab 10/09/24 17:17 Completed Lactic Acid [Lactate (Lactic Acid)] Stat Lab 10/09/24 17:17 Completed Lactic Acid, 3 HR Stat Lab 10/09/24 20:40 Completed Partial Thromboplastin Time Stat Lab 10/09/24 17:17 Completed Procalcitonin Stat Lab 10/09/24 17:17 Completed Prothrombin Time with INR Stat Lab 10/09/24 17:17 Completed Acetaminophen Ivpb [Ofirmev Inj] Med 10/09/24 18:03 Active 1,000 mg in 100 ml IV Q6HR Acetaminophen Supp [Tylenol Supp] Med 10/09/24 17:38 Discontinued 650 mg KS X1 ONE Ibuprofen Susp [Motrin Susp] Med 10/09/24 19:14 Discontinued 600 mg PO X1 ONE Piper/Tazo Inj [Zosyn Inj] 4.5 gm Med 10/09/24 21:02 Active Sodium Chloride 0.9% (Pop) [NS 0.9% mini bag] 100 ml IV X1 Sodium Chloride 0.9% 1000 ml [Ns] 1,000 ml Med 10/09/24 19:14 Discontinued IV 999 mls/hr Sodium Chloride 0.9% 1000 ml [Ns] 1,000 ml Med 10/09/24 20:58 Active IV 999 mls/hr Sodium Chloride 0.9% 250 ml [Ns] 250 ml Med 10/09/24 17:38 Discontinued IV 999 mls/hr cefTRIAXone [Rocephin] 2 gm Med 10/09/24 17:38 Discontinued SODIUM CHLORIDE 0.9% (Popper) [Ns 0.9% (P)] 50 ml IV X1 EKG (RT) Stat RT 10/09/24 17:09 Draft Vital Signs Vital signs: Vital Signs Pulse Rate 114 H 10/09/24 17:09 Respiratory Rate 20 10/09/24 17:09 Blood Pressure 145/81 H 10/09/24 17:09 Pulse Oximetry (%) 95 10/09/24 17:09 Oxygen Delivery Method Trach Collar 10/09/24 17:09 Fraction of Inspired Oxygen 30 10/09/24 17:09 Fever MDM Narrative MDM Narrative:: Patient is a 69-year-old nonverbal female with PMH of epilepsy, hypertension, hyperlipidemia, diabetes mellitus and status post trach/PEG who presented from subacute facility to the ED with AMS after patient found to have high-grade fever and leukocytosis. Upon arrival, patient was hypertensive and had moderate tachycardia 114 bpm. She had a temperature of 102.6 Fahrenheit this triggered a sepsis response. Patient received a dose of ceftriaxone and a workup was initiated. Case was discussed with attending ER physician, Dr. Eubanks. Was advised to be conservative fluid management with the patient's crackles and presentation. Patient received a dose of ibuprofen and acetaminophen. Attending ER physician advised me to contact our casino cage supervisor. Case was discussed maintenance supervisor 2nd shift hospitalist team who will see the patient. Patient data External records reviewed:: [facility] previous records Clinical information provided by:: EMS Social determinants that could affect healthcare access:: none (Patient is nonverbal, she has a tracheostomy in place) Patient has the following chronic illnesses:: epilepsy, hypertension, hyperlipidemia, diabetes mellitus and status post trach/PEG How is presenting disease/condition affected by chronic disease/condition?: exacerbated by Evaluation data The following diagnostics were reviewed and interpreted by me:: lab results (Leukocytosis), radiology exam(s) (Vascular congestion noted on chest x-ray) and EKG tracing(s) (Sinus tachycardia at [address] changes) Lab and/or radiology exams considered but not ordered:: n/a Interpretation Summary: Sepsis, UTI, Medications / Prescriptions Medications or Prescriptions considered but not ordered:: n/a Medication administrations:: Medication Administration History Acetaminophen (Ofirmev Inj) 1,000 mg in 100 mls @ 250 mls/hr IV Q6HR JAYMIE Stop: 10/10/24 12:23 Last Infusion: 10/09/24 18:42 Dose: Infused Documented By: Admin: 10/09/24 18:18 Dose: 250 mls/hr Documented By: EF Sodium Chloride (Ns) 1,000 mls @ 999 mls/hr IV .Q1H1M ONE Stop: 10/09/24 21:58 Piperacillin Sod/Tazobactam (Sod 4.5 gm/ Sodium Chloride) 100 mls @ 200 mls/hr IV X1 ONE Stop: 10/09/24 21:31 Discontinued Medications Acetaminophen (Acetaminophen Supp 650 Mg Supp) 650 mg KS X1 ONE Stop: 10/09/24 17:39 Last Admin: 10/09/24 18:04 Dose: Not Given Documented By: EF Non-Admin Reason: Cancelled by Provider Ceftriaxone Sodium 2 gm/ (Sodium Chloride) 50 mls @ 100 mls/hr IV X1 ONE Stop: 10/09/24 18:07 Last Infusion: 10/09/24 19:02 Dose: Infused Documented By: Admin: 10/09/24 18:32 Dose: 100 mls/hr Documented By: EF Sodium Chloride (Ns) 250 mls @ 999 mls/hr IV .Q16M ONE Stop: 10/09/24 17:53 Last Infusion: 10/09/24 18:33 Dose: Infused Documented By: Admin: 10/09/24 18:17 Dose: 999 mls/hr Documented By: EF Sodium Chloride (Ns) 1,000 mls @ 999 mls/hr IV .Q1H1M ONE Stop: 10/09/24 20:14 Ibuprofen (Ibuprofen Susp 100 Mg/5 Ml Udc) 600 mg PO X1 ONE Stop: 10/09/24 19:15 See above Consultations Consultation(s) initiated? (list below): Yes Diagnosis Fever Differential Diagnosis: cellulitis, fever of unknown origin, community acquired pneumonia, viral infection and sepsis Most likely diagnosis given after review of the tests above:: Sepsis, UTI Admission Indicated Admission indicated?: indicated Admission Request Was there a request for admission?: Yes Admission Attestation Admission request attestation: Discussed case with [] from Hospitalist service regarding admission. Discussed patients ED course, exam findings, labs, and radiology results. The Hospitalist [agrees,declines] to accept the patient for admission. Disposition Plan Disposition Plan: Admit Critical Care Time Critical Care Time Critical Care Time: Yes (45) Total Critical Care Time (min.): 45 Attestation: The high probability of sudden, clinically significant deterioration in the patient's condition required the highest level of my preparedness to intervene urgently. The services I provided to this patient were to treat and/or prevent clinically significant deterioration. Services included the following: chart data review, reviewing nursing notes and/or old charts, documentation time, independent beauty consultant collaboration regarding findings and treatment options, medication orders and management, direct patient care, vital sign assessments and ordering, interpreting and reviewing diagnostic studies and lab tests. Aggregate critical care time includes only time during which I was engaged in work directly related to the patient's care, as described above, whether at bedside or elsewhere in the Emergency Department. It did not include time spent performing other reported procedures or the services of residents, students, nurses or physician assistants. Discharge Plan Plan Patient Disposition: Admit Acute Care w/in Hospital Patient condition on transfer: Stable Prescriptions/Referrals Prescriptions/Med Rec: No Action Ear Wax Removal Drops 6.5 % drops 5 drp otic (ear) Q61D 30 Days 0RF Label Comments: 5 drops per ear at first med pass of shift. Then irrigate ears with NS at next med pass of each shift x 4 days for wax build up. Ear Wax Removal Drops 6.5 % drops 5 drp otic (ear) Q61D 30 Days 0RF Rx Instructions: 5 drops per ear at first med pass of shift. Then irrigate ears with NS at next med pass of each shift x 4 days for wax build up. *Start on the the month, every two months. Ear Wax Removal Drops 6.5 % drops 5 drp otic (ear) Q61D 30 Days 0RF Label Comments: 5 drops per ear at first med pass of shift. Then irrigate ears with NS at next med pass of each shift x 4 days for wax build up. Ear Wax Removal Drops 6.5 % drops 5 drp otic (ear) Q61D 30 Days 0RF Rx Instructions: 5 drops per ear at first med pass of shift. Then irrigate ears with NS at next med pass of each shift x 4 days for wax build up. *Start on the 20th of the month, every two months. Ear Wax Removal Drops 6.5 % drops 5 drp otic (ear) Q61D 30 Days 0RF Label Comments: 5 drops per ear at first med pass of shift. Then irrigate ears with NS at next med pass of each shift x 4 days for wax build up. Ear Wax Removal Drops 6.5 % drops 5 drp otic (ear) Q61D 30 Days 0RF Rx Instructions: 5 drops per ear at first med pass of shift. Then irrigate ears with NS at next med pass of each shift x 4 days for wax build up. *Start on the of the month, every two months. Ear Wax Removal Drops 6.5 % drops 5 drp otic (ear) Q61D 30 Days 0RF Label Comments: 5 drops per ear at first med pass of shift. Then irrigate ears with NS at next med pass of each shift x 4 days for wax build up. Ear Wax Removal Drops 6.5 % drops 5 drp otic (ear) Q61D 30 Days 0RF Label Comments: 5 drops per ear at first med pass of shift. Then irrigate ears with NS at next med pass of each shift x 4 days for wax build up. lorazepam 2 mg/mL solution 0.5 mg IM PRNMRX1 PRN (Reason: Seizure Activity) 365 Days 0RF Label Comments: Inject Ativan 2mg/ml IM for seizure, if seizure persists after a minute of administering Ativan, administer second dose of Ativan 2mg/ml IM. If Ativan is not effective send resident to ER for further evaluation and notify MD. Gvoke 1mg/0.2 Ml 1 mg IM Q15MIN PRN (Reason: Hypocalcemia) 30 Days Qty: 1 0RF Label Comments: for blood glucose <70 and no IV access acetaminophen 325 mg tablet 650 mg G-tube Q6HR PRN (Reason: Pain Scale 1-3 (Mild) 30 Days 0RF Rx Instructions: Do not exceed 3gm a day from any source in 24 hours. acetaminophen 325 mg tablet 650 mg G-tube Q4HR PRN (Reason: FEVER > 101) 30 Days 0RF Rx Instructions: 650mg Q4H PGT as needed for fever artificial tear([id number]) [GenTeal Tears Moderate] 0.1-0.3-0.2 % drops 2 drp Both eyes Q8HR 30 Days 0RF Rx Instructions: FOR DRYNESS aspirin 81 mg tablet,chewable 81 mg G-tube QDAY 30 Days Qty: 30 0RF Rx Instructions: Give one tab daily PGT for DVT prevention atorvastatin 20 mg tablet 40 mg G-tube HS 30 Days Qty: 60 0RF bisacodyl [Dulcolax (bisacodyl)] 10 mg suppository 10 mg KS PRN PRN (Reason: No BM Per Bowel Management Protocol) 30 Days 0RF Rx Instructions: Administer as needed on 6th shift, if MOM ineffective. buspirone 10 mg tablet 10 mg G-tube BID 30 Days Qty: 30 0RF Label Comments: MB increased respiratory rate Rx Instructions: Continue Buspirone 10mg BID x30 days then re-evaluate with MD. cholecalciferol (vitamin D3) 25 mcg (1,000 unit) tablet 25 mcg G-tube BID 30 Days Qty: 30 0RF enoxaparin 40 mg/0.4 mL syringe 40 mg SCi QDAY 90 Days Qty: 36 0RF Gvoke 1 mg/0.2 mL solution 1 mg IM Q15MIN PRN (Reason: Hypoglycemia) 30 Days 0RF guaifenesin [Taylor-Tussin] 100 mg/5 mL liquid 300 mg G-tube Q6HR PRN (Reason: Cough) 30 Days 0RF Rx Instructions: Conc: 100MG/5ML- give 300mg/15ml ipratropium-albuterol 0.5 mg-3 mg(2.5 mg base)/3 mL solution for nebulization 3 ml INH Q2HR PRN (Reason: Wheezing) 30 Days 0RF levetiracetam 100 mg/mL solution 1,000 mg G-tube BID 30 Days Qty: 300 0RF Rx Instructions: give [id number] for seizures magnesium hydroxide [Milk of Magnesia] 400 mg/5 mL suspension 30 ml G-tube PRN PRN (Reason: Constipation) 30 Days 0RF Rx Instructions: CONC: 400MG/5ML polyethylene glycol 3350 17 gram powder in packet 17 g G-tube PRN PRN (Reason: No BM Per Bowel Management Protocol) 30 Days 0RF Rx Instructions: Mix with 4oz of water before giving. Hold tube feeding for 30 minutes after administration. Notify provider if no results from Miralax. Fleet Enema 19-7 gram/118 mL enema 133 ml KS PRN PRN (Reason: No BM Per Bowel Management Protocol) 30 Days 0RF valproic acid (as sodium salt) 250 mg/5 mL solution 500 mg G-tube TID 30 Days Qty: 300 0RF Rx Instructions: Valproic acid 250/5ml chelsey. Give 500mg (10ml) PGT for seizures insulin lispro 100 unit/mL insulin pen See Rx Instructions SCi ,18 30 Days Qty: 0 0RF Rx Instructions: Per Sliding Scale as follows: 0-150= 0 units; 151-200= 2 units; 201-250= 4 units; 251-300= 6 units; 301-350= 8 units; 351-400= 10 units; >400= 12 units; and call MD Referrals: No Primary/Family,Physician [Primary Care Provider] - In 1 week Problem List Clinical Impression: Sepsis, Acute UTI Patient/Caregiver Discharge Instructions Print Language: Bermudian Stand Alone Forms: Johana Award Info., Patient Portal Info Letter
--- NOTE | 2024-10-09 17:09 | EKG_ITS ---
[facility] Test Date: 2024-10-09 Pat Name: YOANDY SANDOVAL Department: Room: - Gender: Female Radiophone Operator: : [id number] Requested By: Amanda Meza Order Number: [id number] Reading MD: Amanda Meza Measurements Intervals Esko Rate: 109 P: 0 NE: 115 QRS: -46 QRSD: 77 T: 28 QT: 316 QTc: 427 Interpretive Statements SINUS TACHYCARDIA WITH SHORT NE INTERVAL WITH OCCASIONAL VENTRICULAR PREMATURE COMPLEXES LEFT AXIS DEVIATION [QRS AXIS < -30] LOW QRS VOLTAGE [QRS DEFLECTION < 0.5/1.0 mV IN LIMB/CHEST LEADS] POSSIBLE ANTERIOR MYOCARDIAL INFARCTION , PROBABLY OLD [30 ms Q WAVE IN V3/V4, OR R < 0.2 mV IN V4] Compared to ECG 09/12/2024 13:13:04 Ventricular premature complex(es) now present Short NE interval now present Myocardial infarct finding now present Sinus rhythm no longer present /store/S0/[id number]/ecg/[id number].pdf
--- NOTE | 2024-10-09 17:09 | XR_ITS ---
Examination: AP chest single view TECHNIQUE: AP portable semiupright chest single view Date and time: October 09, 2024, 1726 hours Comparison September 18, 2024. INDICATIONS: Sepsis alert today with shortness of breath and chest pain. FINDINGS: Tracheostomy tube tip 4.4 cm above Imelda. Mild vascular congestion. No lumbar pneumonia. IMPRESSION: No lobar pneumonia.
[2024-10-09 17:25] LABS: Lactate (Lactic Acid) 3.3 mMol/L (0.4-2.0)
[2024-10-09 17:28] LABS: Basophils # (Auto) 0.1 Thou/mm3 (0.0-0.2); Basophils % (Auto) 0 % (0-2.5); Eosinophils # (Auto) 0.2 Thou/mm3 (0.0-0.5); Eosinophils % (Auto) 1 % (0-10); Hematocrit 29.2 % (36.0-46.0); Hemoglobin 9.6 g/dL (12.0-16.0); Immature Granulocytes Auto 0.63 Thou/mm3 (0.00-0.00); Lymphocytes # (Auto) 1.2 Thou/mm3 (1.0-4.8); Lymphocytes % (Auto) 4 % (10-50); Mean Corpuscular HGB Conc 32.9 g/dl (31.0-37.0); Mean Corpuscular Hemoglobin 30.1 pg (25.0-35.0); Mean Corpuscular Volume 92 fL (80-100); Monocytes # (Auto) 5.1 Thou/mm3 (0.0-0.8); Monocytes % (Auto) 16 % (0-12); Neutrophils # (Auto) 23.8 Thou/mm3 (1.8-7.7); Neutrophils % (Auto) 77 % (37-80); Nucleated Red Blood Cell # 0.00 Thou/mm3 (0.00-0.00); Nucleated Red Blood Cell % 0 /100 WBC (0); Platelet Count 283 Thou/mm3 (140-440); RDW Standard Deviation 55.7 fL (36.4-46.3); Red Blood Count 3.19 Miln/mm3 (4.00-5.20); White Blood Count 31.0 Thou/mm3 (3.6-11.0)
[2024-10-09 17:41] LABS: INR 1.1 (0.9-1.3); Partial Thromboplastin Time 30.3 Seconds (22.0-36.0); Prothrombin Time 11.9 Seconds (9.0-12.2)
[2024-10-09 17:53] LABS: Alanine Aminotransferase < 7 U/L (10-49); Albumin, Serum 3.8 gm/dL (3.4-4.8); Albumin/Globulin Ratio 1.2 (1.2-2.2); Alkaline Phosphatase 67 U/L (46-116); Anion Gap 8 (7-16); Aspartate Amino Transferase 17 U/L (0-34); BUN/Creatinine Ratio 23 Ratio (12-20); Bilirubin,Total 0.2 mg/dL (0.3-1.2); Blood Urea Nitrogen 16 mg/dL (9-23); Calcium 9.3 mg/dL (8.3-10.6); Calcium (Corrected) 9.5 mg/dL (8.5-10.1); Carbon Dioxide 33.5 mMol/L (20.0-31.0); Chloride 91 mMol/L (98-107); Creatinine (Component) 0.7 mg/dL (0.6-1.3); Estimated Creatinine Clearance 76.3 mL/min (>60); Globulin 3.1 gm/dL (2.3-3.5); Glucose 188 mg/dL (74-106); Osmolality,Calculated 270 (275-295); Potassium 4.5 mMol/L (3.4-5.1); Procalcitonin 0.24 ng/ml (0.0-0.49); Sodium 132 mMol/L (136-145); Total Protein 6.9 gm/dL (5.7-8.2); eGFR > 60 See Note
[2024-10-09 18:05] LABS: B-Type Natriuretic Peptide 47 pg/mL (0-100)
[2024-10-09] MEDS: SODIUM CHLORIDE 0.9% 250 ML 250 ML 999 ML IV (18:17)
[2024-10-09] MEDS: ACETAMINOPHEN IVPB 1,000 MG/100 ML VIAL 250 MG IV (18:18)
[2024-10-09] MEDS: cefTRIAXone 2 GM in SODIUM CHLORIDE 0.9% (Popper) 50 ML IV (18:32)
[2024-10-09 20:20] LABS: Reflex Lactate? Y
[2024-10-09 20:48] LABS: Lactic Acid, 3 HR 2.0 mMol/L (0.4-2.0)
--- NOTE | 2024-10-09 21:10 | PD.RESHP ---
Documentation for date of: 10/09/24 HPI History of Present Illness History of present illness: Guerita Ennis is a 69-year-old nonverbal F with a PMH of epilepsy, hypertension, hyperlipidemia, diabetes mellitus and status post placement of trachea and PEG tube who presents today from subacute facility with high-grade fever and leukocytosis. In the ED, vitals showed: BP 145/81 HR 114 RR 20 temp 102.6 SpO2 95% on trachea collar w/ FiO2 of 30% ED Course: CBC showed high WBC 31.0, low Hgb 9.6, and high RDW 55.7. CMP showed low sodium 132, low chloride 91, high CO2 33.5, and high blood glucose 188. (Imaging) Chest x-ray was unremarkable. EKG showed sinus tachycardia with short AK interval with occasional ventricular premature complexes, left axis deviation, and possible old anterior myocardial infarction. Patient was given 250 mL NS bolus x 1 and IV ceftriaxone 2 g x 1. Patient was admitted for the work-up and management of sepsis likely secondary to UTI and high-grade fever. Review of Systems Review of Systems ROS Unobtainable: unobtainable due to mental status (nonverbal) Past Medical History Past Medical History NEUROLOGIC: Positive Neurological Disorders, Dementia, Seizures and Epilepsy CARDIAC: Positive Cardiac Disorders, Hypercholesterolemia and Hypertension; Negative Congestive Heart Failure RESPIRATORY: Positive Asthma; Negative Chronic Obstructive Pulmonary Disease (COPD) GASTROINTESTINAL: Positive Gastrointestinal Disorders GENITOURINARY: Negative Renal Disease ENDOCRINE: Positive Diabetes Mellitus Type 2; Negative Diabetes Mellitus Type 1 HEMATOLOGIC: Negative Sickle Cell Disease Surgical History SURGICAL: Positive Gastrostomy Social History SMOKING STATUS: Unknown if ever smoked SECOND HAND EXPOSURE: No Past Medical History Comments PMH COMMENT: Past medical history could not be obtained as patient is nonverbal. Exam Vital Signs Temp Pulse Resp BP Pulse Ox O2 Del Method FiO2 100.6 F H 99 28 H 136/58 H 97 Mechanical Ventilation 30 10/09/24 21:05 10/09/24 21:05 10/09/24 21:05 10/09/24 21:05 10/09/24 21:05 10/09/24 21:05 10/09/24 21:05 Narrative Exam Physical Exam: General: Sleeping, no acute distress. Skin: Warm, dry, intact, no obvious rash. Head: Normocephalic, atraumatic. Eye: Normal conjunctiva, PERRL. Throat: Oral mucosa moist. No obvious lesions in oropharynx. Cardiovascular: Tachycardic. Normal rhythm, no murmur, +S1/S2. Respiratory: Tracheostomy tube in place. Lungs are clear to auscultation, respirations unlabored, no crackles, no wheezing. Gastrointestinal: Soft, nontender, non-distended. No guarding or rebound tenderness. Extremities: 1+ pedal edema. No cyanosis, no clubbing. 2+ radial pulse bilaterally, 2+ posterior tibial pulse bilaterally. Neuro: Nonverbal. Unable to move upper or lower extremities. No overt cerebellar signs/incoordination. Psychiatric: Unable to be assessed. Results: Labs 10/09/24 17:17 10/09/24 17:17 Labs: Short CBC 10/09/24 Range/Units 17:17 WBC 31.0 H D (3.6-11.0) Thou/mm3 Hgb 9.6 L (12.0-16.0) g/dL Hct 29.2 L (36.0-46.0) % Plt Count 283 (140-440) Thou/mm3 BMP 10/09/24 17:17 Sodium 132 L Potassium 4.5 Chloride 91 L Carbon Dioxide 33.5 H BUN 16 Creatinine 0.7 Glucose 188 H Calcium 9.3 Liver Function 10/09/24 Range/Units 17:17 Total Bilirubin 0.2 L (0.3-1.2) mg/dL AST 17 (0-34) U/L ALT < 7 L (10-49) U/L Alkaline Phosphatase 67 (46-116) U/L Albumin 3.8 (3.4-4.8) gm/dL Quality Measures Quality Measures none Advance care planning discussed with:: other (no one yet (patient is nonverbal)) Medications Home Medications and Allergies Allergies Allergy/AdvReac Type Severity Reaction Status Date / Time codeine Allergy Verified 06/24/24 19:33 Visit Medications Acetaminophen (Ofirmev Inj) 1,000 mg in 100 mls @ 250 mls/hr IV Q6HR JAYMIE Stop: 10/10/24 12:23 Last Infusion: 10/09/24 18:42 Dose: Infused Sodium Chloride (Ns) 1,000 mls @ 999 mls/hr IV .Q1H1M ONE Stop: 10/09/24 21:58 Piperacillin Sod/Tazobactam (Sod 4.5 gm/ Sodium Chloride) 100 mls @ 200 mls/hr IV X1 ONE Stop: 10/09/24 21:31 Discontinued Medications Acetaminophen (Acetaminophen Supp 650 Mg Supp) 650 mg AK X1 ONE Stop: 10/09/24 17:39 Last Admin: 10/09/24 18:04 Dose: Not Given Ceftriaxone Sodium 2 gm/ (Sodium Chloride) 50 mls @ 100 mls/hr IV X1 ONE Stop: 10/09/24 18:07 Last Infusion: 10/09/24 19:02 Dose: Infused Sodium Chloride (Ns) 250 mls @ 999 mls/hr IV .Q16M ONE Stop: 10/09/24 17:53 Last Infusion: 10/09/24 18:33 Dose: Infused Sodium Chloride (Ns) 1,000 mls @ 999 mls/hr IV .Q1H1M ONE Stop: 10/09/24 20:14 Ibuprofen (Ibuprofen Susp 100 Mg/5 Ml Udc) 600 mg PO X1 ONE Stop: 10/09/24 19:15 Assessment & Plan Assessment Guerita Ennis is a 69-year-old nonverbal F with a PMH of epilepsy, hypertension, hyperlipidemia, diabetes mellitus and status post placement of trachea and PEG tube who presents today from subacute facility with high-grade fever and leukocytosis. Patient was admitted for the work-up and management of sepsis likely secondary to UTI and high-grade fever. #Sepsis #likely 2/2 UTI #High grade fever #Leukocytosis Patient meets criteria for sepsis due to elevated WBC of 31.0, tachycardic heart rate of 114, high-grade fever of 102.6, and UTI as a possible source of infection. UA showed basic urine pH 8.5, 2+ protein, 2+ blood, high RBC 201, high WBC 200, and positive LE with rare bacteria present. Plan: -Started patient on 5-day course of IV Zosyn 3.375 gm q6HR for treatment of UTI -Follow up on urine culture and blood culture results to guide antibiotic regimen #Chronic health problems #Chronic respiratory failure w/ tracheostomy dependence #Normocytic anemia #T2DM Plan: -Ordered inhaled Duonebs q6HR prn for treating breathing difficulty -Will transfuse if Hgb<7 -Started on insulin sliding scale Hospital Management: Disposition: receiving IV Zosyn for treatment of sepsis likely 2/2 suspected UTI Diet: diet consult ordered GI Prophylaxis: none Bowel Prophylaxis: GT lactulose syrup DVT Prophylaxis: heparin CODE STATUS: Full Code I have examined the patient and conferred with my attending, Dr. Barlow, and my senior resident, Dr. Khan, regarding them. José Luis Holguin, DO PGY-1 Internal Medicine Attending Provider Attestation/Addendum I reviewed labs, imaging, EKG, home medications and prior available records. Face to face evaluation was performed by me. I have personally examined the patient and discussed assessment and plan with the IM team. I reviewed the resident note and agree with the plan with exceptions as below. Sepsis secondary to Acute UTI History of recurrent UTIs Chronic HFpEF Epilepsy Nonverbal Status post tracheostomy and PEG tube Started IV Zosyn given the history of Pseudomonas UTI Gave fluids per sepsis protocol but we will carefully hydrate today in the setting of history of CHF Trend WBC Follow-up blood and urine cultures Start PEG tube feedings Continue tracheostomy care Resume home seizure medications
[2024-10-09] MEDS: IBUPROFEN SUSP 100 MG/5 ML UDC 600 MG PO (22:40)
[2024-10-09] MEDS: PIPER/TAZO INJ 4.5 GM in SODIUM CHLORIDE 0.9% (POP) 100 ML IV (22:41)
[2024-10-09] MEDS: SODIUM CHLORIDE 0.9% 1000 ML 1,000 ML 999 ML IV (22:41)
[2024-10-09] MEDS: HEPARIN SOD INJ 5000 UNIT/ML VIAL SC (22:43)
--- NOTE | 2024-10-09 23:35 | PC.NURSE ---
Report called to floor nurse JACKIE Grant
[2024-10-10] VITALS (18 sets, daily range): BP systolic 75–140; BP diastolic 52–87; PULSE 68–104; RESP 16–37; TEMP 36.2–37.2; O2SAT 92–99; BMI 29.4; BMI 29.2
[2024-10-10] MEDS: ACETAMINOPHEN IVPB 1,000 MG/100 ML VIAL 250 MG IV ×2 (00:36→05:08)
[2024-10-10 02:23] LABS: Path Review Blood Smear Sent to Pathologist
[2024-10-10] MEDS: HEPARIN SOD INJ 5000 UNIT/ML VIAL SC ×3 (05:08→21:43)
[2024-10-10] MEDS: PIPER/TAZO 3.375 GM PREMIX 3.375 GM/50 ML BAG IV ×3 (05:47→21:43)
[2024-10-10 06:20] LABS: Basophils # (Auto) 0.1 Thou/mm3 (0.0-0.2); Basophils % (Auto) 0 % (0-2.5); Eosinophils # (Auto) 0.2 Thou/mm3 (0.0-0.5); Eosinophils % (Auto) 1 % (0-10); Hematocrit 25.8 % (36.0-46.0); Immature Granulocytes Auto 0.48 Thou/mm3 (0.00-0.00); Lymphocytes # (Auto) 2.3 Thou/mm3 (1.0-4.8); Lymphocytes % (Auto) 7 % (10-50); Mean Corpuscular HGB Conc 31.4 g/dl (31.0-37.0); Mean Corpuscular Hemoglobin 29.8 pg (25.0-35.0); Mean Corpuscular Volume 95 fL (80-100); Monocytes # (Auto) 5.6 Thou/mm3 (0.0-0.8); Monocytes % (Auto) 18 % (0-12); Neutrophils # (Auto) 22.2 Thou/mm3 (1.8-7.7); Neutrophils % (Auto) 72 % (37-80); Nucleated Red Blood Cell # 0.00 Thou/mm3 (0.00-0.00); Nucleated Red Blood Cell % 0 /100 WBC (0); Platelet Count 234 Thou/mm3 (140-440); RDW Standard Deviation 59.1 fL (36.4-46.3); Red Blood Count 2.72 Miln/mm3 (4.00-5.20); White Blood Count 30.8 Thou/mm3 (3.6-11.0)
[2024-10-10 06:23] LABS: Hemoglobin 8.1 g/dL (12.0-16.0)
[2024-10-10 07:08] LABS: Alanine Aminotransferase < 7 U/L (10-49); Albumin, Serum 3.1 gm/dL (3.4-4.8); Albumin/Globulin Ratio 1.1 (1.2-2.2); Alkaline Phosphatase 62 U/L (46-116); Anion Gap 9 (7-16); Aspartate Amino Transferase 15 U/L (0-34); BUN/Creatinine Ratio 20 Ratio (12-20); Bilirubin,Total 0.2 mg/dL (0.3-1.2); Blood Urea Nitrogen 16 mg/dL (9-23); Calcium 8.2 mg/dL (8.3-10.6); Calcium (Corrected) 8.9 mg/dL (8.5-10.1); Carbon Dioxide 31.3 mMol/L (20.0-31.0); Chloride 96 mMol/L (98-107); Creatinine (Component) 0.8 mg/dL (0.6-1.3); Estimated Creatinine Clearance 70.9 mL/min (>60); Globulin 2.9 gm/dL (2.3-3.5); Glucose 97 mg/dL (74-106); Magnesium 1.8 mg/dL (1.6-2.6); Osmolality,Calculated 273 (275-295); Phosphorous 4.1 mg/dL (2.4-5.1); Potassium 4.6 mMol/L (3.4-5.1); Sodium 136 mMol/L (136-145); Total Protein 6.0 gm/dL (5.7-8.2); eGFR > 60 See Note
[2024-10-10] MEDS: RINGERS LACTATED 1000 ML 500 ML 999 ML IV (07:58)
--- NOTE | 2024-10-10 08:07 | XR_ITS ---
Examination: AP chest single view Technique one AP portable semiupright chest single view Date and time: October 10, 2024 0828 hours Comparison October 09, 2024 INDICATIONS: Chest pain, sepsis alert today. FINDINGS: Normal heart size No lobar pneumonia. Tracheostomy tube tip 4.7 cm above michael IMPRESSION: No lobar pneumonia
[2024-10-10 08:20] LABS: Lactate (Lactic Acid) 1.9 mMol/L (0.4-2.0)
[2024-10-10 08:25] LABS: Basophils # (Auto) 0.1 Thou/mm3 (0.0-0.2); Basophils % (Auto) 0 % (0-2.5); Eosinophils # (Auto) 0.2 Thou/mm3 (0.0-0.5); Eosinophils % (Auto) 1 % (0-10); Hematocrit 21.1 % (36.0-46.0); Immature Granulocytes Auto 0.42 Thou/mm3 (0.00-0.00); Lymphocytes # (Auto) 2.1 Thou/mm3 (1.0-4.8); Lymphocytes % (Auto) 7 % (10-50); Mean Corpuscular HGB Conc 32.7 g/dl (31.0-37.0); Mean Corpuscular Hemoglobin 29.7 pg (25.0-35.0); Mean Corpuscular Volume 91 fL (80-100); Monocytes # (Auto) 4.8 Thou/mm3 (0.0-0.8); Monocytes % (Auto) 17 % (0-12); Neutrophils # (Auto) 21.8 Thou/mm3 (1.8-7.7); Neutrophils % (Auto) 74 % (37-80); Nucleated Red Blood Cell # 0.00 Thou/mm3 (0.00-0.00); Nucleated Red Blood Cell % 0 /100 WBC (0); Platelet Count 216 Thou/mm3 (140-440); RDW Standard Deviation 55.8 fL (36.4-46.3); Red Blood Count 2.32 Miln/mm3 (4.00-5.20); White Blood Count 29.4 Thou/mm3 (3.6-11.0)
[2024-10-10 08:29] LABS: Hemoglobin 6.9 g/dL (12.0-16.0)
[2024-10-10] MEDS: SODIUM CHLORIDE 0.9% 500 ML 500 ML 999 ML IV ×2 (09:00→09:41)
[2024-10-10 09:04] LABS: Alanine Aminotransferase < 7 U/L (10-49); Albumin, Serum 2.8 gm/dL (3.4-4.8); Albumin/Globulin Ratio 1.1 (1.2-2.2); Alkaline Phosphatase 55 U/L (46-116); Anion Gap 7 (7-16); Aspartate Amino Transferase 13 U/L (0-34); BUN/Creatinine Ratio 20 Ratio (12-20); Bilirubin,Total 0.2 mg/dL (0.3-1.2); Blood Urea Nitrogen 16 mg/dL (9-23); Calcium 8.1 mg/dL (8.3-10.6); Calcium (Corrected) 9.1 mg/dL (8.5-10.1); Carbon Dioxide 30.7 mMol/L (20.0-31.0); Chloride 97 mMol/L (98-107); Creatinine (Component) 0.8 mg/dL (0.6-1.3); Estimated Creatinine Clearance 70.9 mL/min (>60); Globulin 2.6 gm/dL (2.3-3.5); Glucose 98 mg/dL (74-106); Osmolality,Calculated 271 (275-295); Potassium 4.6 mMol/L (3.4-5.1); Sodium 135 mMol/L (136-145); Total Protein 5.4 gm/dL (5.7-8.2); eGFR > 60 See Note
[2024-10-10] MEDS: LACTULOSE SYRUP 20 GM/30 ML UDC 40 GM GT (09:14)
[2024-10-10] MEDS: LACTULOSE SYRUP 20 GM/30 ML UDC 10 GM GT (09:20)
[2024-10-10] MEDS: VANCOMYCIN/D5W 1,250 MG IVPB 250 ML 120 MG IV (09:21)
[2024-10-10] MEDS: PANTOPRAZOLE/NS 80MG IV PREMIX 80 MG/100 ML BAG 400 MG IV (09:21)
[2024-10-10 09:31] LABS: Hematocrit 26.7 % (36.0-46.0)
[2024-10-10 09:39] LABS: Hemoglobin 8.7 g/dL (12.0-16.0)
--- NOTE | 2024-10-10 09:46 | PC.DIETICIAN ---
Nutrition prescription When indicated: Glucerna 1.2 at 25 ml/hr via PEG tube by pump. Advance 10 ml every 8 hrs to goal rate of 55 ml/hr x 24 hrs. If no IV fluids, water flushes of 40 ml/hr (or per MD).
[2024-10-10] MEDS: MIDODRINE 5 MG TABLET 10 MG PO ×3 (11:01→21:43)
--- NOTE | 2024-10-10 13:14 | ESPR_ITS ---
<Statement entered by Jane Boyd MD - 10/21/24 17:55> I reviewed above note and agree with findings and plans. I have also personally examined the patient with medicine team and went over assessment and plan with medical team including internal sales and resident physician. Documentation for date of: 10/10/24 Patient is a 69-year-old female, admitted from ER for high-grade fever and leukocytosis, resident of subacute facility, nonverbal status, status post trach and PEG following chronic encephalopathy history of epilepsy, hypertension, hyperlipidemia, diabetes mellitus. Patient will be admitted for treatment and management of sepsis, likely secondary to UTI. #Sepsis, likely secondary UTI?IV Zosyn, blood and urine cultures ordered. Noted sputum culture positive for GNR, possible colonization, no pneumonic infiltrates noted on chest imaging. #Distributive versus hypovolemic shock, now resolved?fluid responsive, received sepsis bolus in ER, noted hypotension in the a.m., MAP 47, 2 L IV fluid bolus were ordered, noted improvement in blood pressure shortly after. #Acute on chronic hypoxic respiratory failure s/p trach #History of epilepsy #History of diabetes mellitus?A1c <6, fingerstick glucose monitoring, currently not requiring insulin. #History of chronic encephalopathy #S/p PEG?diet resumed, was initially made n.p.o. due to concern for GI bleed, but repeat H&H was stable, started on tube feeds. Quresh pgy 3 Subjective Subjective Interval history: Patient was seen and examined at bedside. A.m. vitals and labs reviewed. Rapid event was called at 7:51am due to hypotension with systolic BP ranging 70s and MAP 47. Was given LR 500ml IV bolus was given and patient recovered from hypoptension. Current BP is 136/52. Given her septic status, there was a concern for distributive shock. Midodrine 10mg PO TID was ordered. After rapid, patient's patient's hemoglobin level decreased to 6.9.GI bleed was suspected. Held heparin, gave lactulose x1 for bowel movement and IV protonix 40mg bid. Ordered type & screen and pRBC was ordered. Patient's hemoglobin level improved to 8.7 after an hour and patient's subsequent bowel movment was brown in color. Resumed heparin and changed IV Protonix to 40mg qd. At the time of examination, patient looked drowsy and wasn't able to answer any questions. Exam Vital Signs Temp Pulse Resp BP Pulse Ox O2 Del Method FiO2 97.8 F 102 H 22 H 111/53 L 98 Mechanical Ventilation 30 10/10/24 08:00 10/10/24 11:01 10/10/24 08:00 10/10/24 11:01 10/10/24 10:59 10/10/24 08:00 10/10/24 10:59 Narrative Exam Physical Exam: General: Drowsy, Mild distress. Skin: Warm, dry, intact, no obvious rash. Head: Normocephalic, atraumatic. Eye: Normal conjunctiva, PERRL. Throat: Oral mucosa moist. No obvious lesions in oropharynx. Cardiovascular: Tachycardic. Normal rhythm, no murmur, +S1/S2. Respiratory: Tracheostomy tube in place. Lungs are clear to auscultation, respirations unlabored, no crackles, no wheezing. Gastrointestinal: Soft, nontender, non-distended. No guarding or rebound tenderness. Extremities: 1+ pedal edema. No cyanosis, no clubbing. 2+ radial pulse bilaterally, 2+ posterior tibial pulse bilaterally. Neuro: Nonverbal. Unable to move upper or lower extremities. No overt cerebellar signs/incoordination. Psychiatric: Unable to be assessed. Objective Labs 10/10/24 09:16 10/10/24 08:09 Labs: Laboratory Results - last 24 hr 10/09/24 10/09/24 10/10/24 17:17 20:40 05:38 WBC 31.0 H D 30.8 H RBC 3.19 L 2.72 L Hgb 9.6 L 8.1 L Hct 29.2 L 25.8 L MCV 92 95 MCH 30.1 29.8 MCHC 32.9 31.4 RDW Std Deviation 55.7 H 59.1 H Plt Count 283 234 D Neut % (Auto) 77 72 Lymph % (Auto) 4 L 7 L [place] % (Auto) 16 H 18 H Eos % (Auto) 1 1 Baso % (Auto) 0 0 Neut # (Auto) 23.8 H 22.2 H Lymph # (Auto) 1.2 2.3 [place] # (Auto) 5.1 H 5.6 H Eos # (Auto) 0.2 0.2 Baso # (Auto) 0.1 0.1 Immature Gran # (Auto) 0.63 H 0.48 H Absolute Nucleated RBC 0.00 0.00 Immature Gran % 2 H 2 H Nucleated RBC % 0 0 Smear Path Review Sent to Pathologist PT 11.9 INR 1.1 APTT 30.3 Sodium 132 L 136 Potassium 4.5 4.6 Chloride 91 L 96 L Carbon Dioxide 33.5 H 31.3 H Anion Gap 8 9 BUN 16 16 Creatinine 0.7 0.8 Estim Creat Clear Calc 76.3 70.9 eGFR > 60 > 60 BUN/Creatinine Ratio 23 H 20 Glucose 188 H 97 D Calculated Osmolality 270 L 273 L Lactic Acid 3.3 H 2.0 Calcium 9.3 8.2 L Corrected Calcium 9.5 8.9 Phosphorus 4.1 Magnesium 1.8 Total Bilirubin 0.2 L 0.2 L AST 17 15 ALT < 7 L < 7 L Alkaline Phosphatase 67 62 B-Natriuretic Peptide 47 Total Protein 6.9 6.0 Albumin 3.8 3.1 L D Globulin 3.1 2.9 Albumin/Globulin Ratio 1.2 1.1 L Procalcitonin 0.24 Blood Type Antibody Screen [employer] Blood Bank Wristband ID 10/10/24 10/10/24 08:09 09:16 WBC 29.4 H RBC 2.32 L Hgb 6.9 L* 8.7 L D Hct 21.1 L* 26.7 L MCV 91 MCH 29.7 MCHC 32.7 RDW Std Deviation 55.8 H Plt Count 216 Neut % (Auto) 74 Lymph % (Auto) 7 L [place] % (Auto) 17 H Eos % (Auto) 1 Baso % (Auto) 0 Neut # (Auto) 21.8 H Lymph # (Auto) 2.1 [place] # (Auto) 4.8 H Eos # (Auto) 0.2 Baso # (Auto) 0.1 Immature Gran # (Auto) 0.42 H Absolute Nucleated RBC 0.00 Immature Gran % 1 H Nucleated RBC % 0 Smear Path Review PT INR APTT Sodium 135 L Potassium 4.6 Chloride 97 L Carbon Dioxide 30.7 Anion Gap 7 BUN 16 Creatinine 0.8 Estim Creat Clear Calc 70.9 eGFR > 60 BUN/Creatinine Ratio 20 Glucose 98 Calculated Osmolality 271 L Lactic Acid 1.9 Calcium 8.1 L Corrected Calcium 9.1 Phosphorus Magnesium Total Bilirubin 0.2 L AST 13 ALT < 7 L Alkaline Phosphatase 55 B-Natriuretic Peptide Total Protein 5.4 L Albumin 2.8 L Globulin 2.6 Albumin/Globulin Ratio 1.1 L Procalcitonin Blood Type B Positive Antibody Screen NEGATIVE Crossmatch See Detail Blood Bank Wristband ID Yes Quality Measures Quality Measures none Advance care planning discussed with:: patient Assessment & Plan Assessment Current Active Medications: Generic Name Dose Route Start Last Admin Trade Name Freq PRN Reason Stop Dose Admin Acetaminophen 650 mg 10/10/24 02:01 Acetaminophen Ericka 325 Mg/10 Ml Udc GT 11/08/24 21:44 Q6HR PRN Pain 1-3 or Fever>100.1 Albuterol/Ipratropium 3 ml 10/10/24 00:10 Albuterol/Ipratropium (Duoneb) Rt Ericka 3 Ml Nebu INH 11/09/24 00:59 Q6HRRT PRN wheezing Heparin Sodium (Porcine) 5,000 unit 10/09/24 22:00 10/10/24 05:08 Heparin Sod Inj 5000 Unit/Ml Vial SC 10/23/24 21:59 5,000 unit Q8HR JAYMIE Administration Piperacillin/Tazobactam/Dextrose 3.375 gm in 50 mls @ 12.5 mls/hr 10/10/24 06:00 10/10/24 05:47 Zosyn IV 10/17/24 05:59 12.5 mls/hr Q8HR JAYMIE Administration Vancomycin HCl/Dextrose 250 mls @ 120 mls/hr 10/10/24 09:00 10/10/24 09:21 Vancomycin/D5w 1,250 Mg Ivpb IV 10/17/24 08:59 120 mls/hr DAILY@1000 JAYMIE Administration Lactulose 10 gm 10/10/24 09:00 10/10/24 09:20 Lactulose Syrup 20 Gm/30 Ml Udc GT 11/09/24 08:59 10 gm QDAY JAYMIE Administration Protocol Midodrine 10 mg 10/10/24 10:00 10/10/24 11:01 Midodrine 5 Mg Tablet PO 11/09/24 09:59 10 mg TID JAYMIE Administration Ondansetron HCl 4 mg 10/09/24 21:29 Ondansetron Inj 2 Mg/Ml Inj 2 Ml IVP 11/08/24 21:28 Q6H PRN NAUSEA OR VOMITING Protocol Pantoprazole Sodium 40 mg 07/17/25 21:00 Pantoprazole Inj 40 Mg Vial IVP 11/09/24 20:59 BID [facility] Pharmacy Consult 1 each 10/10/24 09:00 Vancomycin Pharmacy To Dose 1 Each Each IV 11/09/24 08:59 QDAY PRN CONSULT Plan Assessment Guerita Ennis is a 69-year-old nonverbal F with a PMH of epilepsy, hypertension, hyperlipidemia, diabetes mellitus and status post placement of trachea and PEG tube who presents today from subacute facility with high-grade fever and leukocytosis. Patient was admitted for the work-up and management of sepsis likely secondary to UTI and high-grade fever. #Sepsis #likely 2/2 UTI #High grade fever #Leukocytosis On admission (10/09/2024), Patient meets criteria for sepsis due to elevated WBC of 31.0, tachycardic heart rate of 114, high-grade fever of 102.6, and UTI as a possible source of infection. UA showed basic urine pH 8.5, 2+ protein, 2+ blood, high RBC 201, high WBC 200, and positive LE with rare bacteria present. Currently, WBC 30.8, Temp:97.5F, Heart rate:68. Plan: -Started patient on 5-day course of IV Zosyn 3.375 gm q6HR for treatment of UTI -Blood culture: no growth for 24hrs. Urine culture still pending. #Chronic health problems #Acute on Chronic respiratory failure w/ tracheostomy dependence #Normocytic anemia #T2DM Plan: -Ordered inhaled Duonebs q6HR prn for treating breathing difficulty -Will transfuse if Hgb<7 -Started on insulin sliding scale Hospital Management: Disposition: receiving IV Zosyn for treatment of sepsis likely 2/2 suspected UTI Diet: diet consult ordered GI Prophylaxis: none Bowel Prophylaxis: GT lactulose syrup DVT Prophylaxis: heparin CODE STATUS: Full Code Assessment and plan discussed with my attending physician Dr. Boyd and Dr. Cool (PGY-3) Dr. Castellanos (PGY-1)- Internal medicine resident
--- NOTE | 2024-10-10 13:31 | EVENTNT_ITS ---
Documentation for date of: 10/10/24 Event Note Event Note: Rapid response called at 7:51am on 10/10 for patient room 269 for hypotension. Patient was seen and assessed in hospital bed, airway/breathing/circulation intact. Patient?s MAP was 47, Systolic BP was in 70s. During the time of a ssessment, patient was minimally responsive. Capillary refill was less than 3 seconds. 500mL LR bolus x2 was given. CBC, CMP, lactic acid, ABG panel was added. ?Vancomycin was ordered. After our response, patient hypotension has resolved. Will continue to monitor the patient for any acute changes. Assessment and plan discussed with my attending physician Dr. Boyd and Dr. Cool (PGY-3) Dr. Castellanos (PGY-1)- Internal medicine resident
--- NOTE | 2024-10-10 15:15 | PC.SS ---
Initial: Guerita Ennis is a 69-year-old female admitted to the telemetry unit for sepsis and UTI. BANDING MACHINE OPERATOR made contact with Suzie Ennis (sister) at bedside. Role and reason for the contact was explained to. Pt. family was able to verify demographic information. Primary point of contact is Suzie Ennis ph:[phone] secondary point of contact is Radha Hollins ph:[phone]. Family verified that prior to hospital stay pt. required walker to complete ADL?s. Family reported pt. does not have PCP nor pharmacy. Primary contact: Suzie Ennis, ph: [phone] PCP: No primary physician D/C: return to subacute
[2024-10-11] VITALS (14 sets, daily range): BP systolic 87–139; BP diastolic 51–72; PULSE 69–107; RESP 19–34; TEMP 36.1–36.6; O2SAT 96–98; BMI 29.2
[2024-10-11] MEDS: PIPER/TAZO 3.375 GM PREMIX 3.375 GM/50 ML BAG IV ×3 (05:08→21:45)
[2024-10-11] MEDS: HEPARIN SOD INJ 5000 UNIT/ML VIAL SC ×3 (05:09→21:46)
[2024-10-11] MEDS: MIDODRINE 5 MG TABLET 10 MG PO ×3 (05:09→21:44)
[2024-10-11 06:35] LABS: Basophils # (Auto) 0.1 Thou/mm3 (0.0-0.2); Basophils % (Auto) 0 % (0-2.5); Eosinophils # (Auto) 0.2 Thou/mm3 (0.0-0.5); Eosinophils % (Auto) 1 % (0-10); Hematocrit 25.0 % (36.0-46.0); Immature Granulocytes Auto 0.49 Thou/mm3 (0.00-0.00); Lymphocytes # (Auto) 2.4 Thou/mm3 (1.0-4.8); Lymphocytes % (Auto) 8 % (10-50); Mean Corpuscular HGB Conc 32.4 g/dl (31.0-37.0); Mean Corpuscular Hemoglobin 30.0 pg (25.0-35.0); Mean Corpuscular Volume 93 fL (80-100); Monocytes # (Auto) 3.4 Thou/mm3 (0.0-0.8); Monocytes % (Auto) 12 % (0-12); Neutrophils # (Auto) 22.5 Thou/mm3 (1.8-7.7); Neutrophils % (Auto) 77 % (37-80); Nucleated Red Blood Cell # 0.00 Thou/mm3 (0.00-0.00); Nucleated Red Blood Cell % 0 /100 WBC (0); Platelet Count 231 Thou/mm3 (140-440); RDW Standard Deviation 57.1 fL (36.4-46.3); Red Blood Count 2.70 Miln/mm3 (4.00-5.20); White Blood Count 29.1 Thou/mm3 (3.6-11.0)
[2024-10-11 06:55] LABS: Hemoglobin 8.1 g/dL (12.0-16.0)
[2024-10-11 07:22] LABS: Alanine Aminotransferase < 7 U/L (10-49); Albumin, Serum 3.0 gm/dL (3.4-4.8); Albumin/Globulin Ratio 1.0 (1.2-2.2); Alkaline Phosphatase 62 U/L (46-116); Anion Gap 9 (7-16); Aspartate Amino Transferase 14 U/L (0-34); BUN/Creatinine Ratio 17 Ratio (12-20); Bilirubin,Total 0.2 mg/dL (0.3-1.2); Blood Urea Nitrogen 10 mg/dL (9-23); Calcium 8.3 mg/dL (8.3-10.6); Calcium (Corrected) 9.1 mg/dL (8.5-10.1); Carbon Dioxide 29.2 mMol/L (20.0-31.0); Chloride 98 mMol/L (98-107); Creatinine (Component) 0.6 mg/dL (0.6-1.3); Estimated Creatinine Clearance 94.5 mL/min (>60); Globulin 2.9 gm/dL (2.3-3.5); Glucose 101 mg/dL (74-106); Magnesium 2.1 mg/dL (1.6-2.6); Osmolality,Calculated 270 (275-295); Phosphorous 3.1 mg/dL (2.4-5.1); Potassium 4.4 mMol/L (3.4-5.1); Sodium 136 mMol/L (136-145); Total Protein 5.9 gm/dL (5.7-8.2); eGFR > 60 See Note
[2024-10-11 08:05] LABS: Immature Reticulocyte Fraction 27.1 % (3.0-15.9); Reticulocyte % (Auto) 2.2 % (0.5-1.5); Reticulocyte Absolute Auto 60.4 Biln/L (25.0-75.0); Reticulocyte Hgb Content 30.2 pg (28.0-35.0)
[2024-10-11 08:22] LABS: Ferritin 353 ng/mL (7.3-270.7); Iron 20 mcg/dL (50-170); Percent Iron Saturation 8 % (20-55); Total Iron Binding Capacity 228 mcg/dL (250-425); Unsaturated Iron Binding 208 (225-295)
[2024-10-11] MEDS: LACTULOSE SYRUP 20 GM/30 ML UDC 10 GM GT (08:51)
[2024-10-11] MEDS: RINGERS LACTATED 1000 ML 1,000 ML 999 ML IV (08:52)
--- NOTE | 2024-10-11 10:01 | PC.SS ---
Follow up note: On IV antibiotic. Pt will return back to [facility] at d/c.
[2024-10-11] MEDS: SODIUM CHLORIDE 0.9% 1000 ML 1,000 ML 70 ML IV (10:27)
[2024-10-11] MEDS: SODIUM CHLORIDE 0.9% 1000 ML 1,000 ML 125 ML IV ×2 (13:47→20:02)
--- NOTE | 2024-10-11 14:00 | ESPR_ITS ---
<Statement entered by Jane Boyd MD - 10/22/24 07:43> I reviewed above note and agree with findings and plans. I have also personally examined the patient with medicine team and went over assessment and plan with medical team including university internship and resident physician. Documentation for date of: 10/11/24 Senior resident attestation: Patient evaluated and examined at the bedside, plan of care discussed with rest of the team including my attending physician, except as noted. Noted soft blood pressure on vitals this am, added fluid bolus and maintenacne iv fludis, continue antibiotics, mental status improving. Pt is more responsive and able to communicate by head and eye movemnets to simple yes no questions. follow microbiology results. Quresh PGY3 Subjective Subjective Interval history: Patient was seen and examined at bedside. A.m. vitals and labs reviewed. Patient is afebrile with 97.0F, but hypotensive BP 87/60 with pulse rate of 107, Respiratory rate of 33, 96% O2 sat on mechanical ventilation. WBC 29.1. Sputum culture (10/09) showed Serratia Marcescens sensitive to zosyn. Pt was given NS maintenance fluids 125ml/hr. At the time of examination, patient was answer basic questions through head movement. Denied chest pain, palpitation, headache, fevers or chills. Exam Vital Signs Temp Pulse Resp BP Pulse Ox O2 Del Method FiO2 97.8 F 84 25 H 90/51 L 97 Mechanical Ventilation 30 10/11/24 12:00 10/11/24 13:42 10/11/24 12:00 10/11/24 13:42 10/11/24 13:00 10/11/24 12:00 10/11/24 13:00 Narrative Exam General: Drowsy, Mild distress. Skin: Warm, dry, intact, no obvious rash. Head: Normocephalic, atraumatic. Eye: Normal conjunctiva, PERRL. Throat: Oral mucosa moist. No obvious lesions in oropharynx. Cardiovascular: Tachycardic. Normal rhythm, no murmur, +S1/S2. Respiratory: Tracheostomy tube in place. Lungs are clear to auscultation, respirations unlabored, no crackles, no wheezing. Gastrointestinal: Soft, nontender, non-distended. No guarding or rebound tenderness. Extremities: 1+ pedal edema. No cyanosis, no clubbing. 2+ radial pulse bilaterally, 2+ posterior tibial pulse bilaterally. Neuro: Nonverbal. Unable to move upper or lower extremities. No overt cerebellar signs/incoordination. Psychiatric: Unable to be assessed. Objective Labs 10/13/24 04:35 10/13/24 04:35 Labs: Laboratory Results - last 24 hr 10/11/24 10/11/24 05:36 05:37 WBC 29.1 H RBC 2.70 L Hgb 8.1 L Hct 25.0 L MCV 93 MCH 30.0 MCHC 32.4 RDW Std Deviation 57.1 H Plt Count 231 Neut % (Auto) 77 Lymph % (Auto) 8 L [place] % (Auto) 12 Eos % (Auto) 1 Baso % (Auto) 0 Neut # (Auto) 22.5 H Lymph # (Auto) 2.4 [place] # (Auto) 3.4 H Eos # (Auto) 0.2 Baso # (Auto) 0.1 Immature Gran # (Auto) 0.49 H Absolute Nucleated RBC 0.00 Immature Gran % 2 H Nucleated RBC % 0 Retic Count (auto) 2.2 H Absolute Retic 60.4 Immature Retic Fraction 27.1 H Retic Hgb Content CHr 30.2 Sodium 136 Potassium 4.4 Chloride 98 Carbon Dioxide 29.2 Anion Gap 9 BUN 10 Creatinine 0.6 Estim Creat Clear Calc 94.5 eGFR > 60 BUN/Creatinine Ratio 17 Glucose 101 Calculated Osmolality 270 L Calcium 8.3 Corrected Calcium 9.1 Phosphorus 3.1 Magnesium 2.1 Iron 20 L TIBC 228 L Iron Saturation 8 L Unsat Iron Binding 208 L Ferritin 353 H Total Bilirubin 0.2 L AST 14 ALT < 7 L Alkaline Phosphatase 62 Total Protein 5.9 Albumin 3.0 L Globulin 2.9 Albumin/Globulin Ratio 1.0 L Quality Measures Quality Measures none Advance care planning discussed with:: patient Assessment & Plan Assessment Current Active Medications: Generic Name Dose Route Start Last Admin Trade Name Freq PRN Reason Stop Dose Admin Acetaminophen 650 mg 10/10/24 02:01 Acetaminophen Ericka 325 Mg/10 Ml Udc GT 11/08/24 21:44 Q6HR PRN Pain 1-3 or Fever>100.1 Albuterol/Ipratropium 3 ml 10/10/24 00:10 Albuterol/Ipratropium (Duoneb) Rt Ericka 3 Ml Nebu INH 11/09/24 00:59 Q6HRRT PRN wheezing Heparin Sodium (Porcine) 5,000 unit 10/09/24 22:00 10/11/24 13:41 Heparin Sod Inj 5000 Unit/Ml Vial SC 10/23/24 21:59 5,000 unit Q8HR JAYMIE Administration Piperacillin/Tazobactam/Dextrose 3.375 gm in 50 mls @ 12.5 mls/hr 10/10/24 06:00 10/11/24 13:42 Zosyn IV 10/17/24 05:59 12.5 mls/hr Q8HR JAYMIE Administration Sodium Chloride 1,000 mls @ 125 mls/hr 10/11/24 13:38 10/11/24 13:47 Ns IV 10/12/24 05:37 125 mls/hr .Q8H JAYMIE Administration Lactulose 10 gm 10/10/24 09:00 10/11/24 08:51 Lactulose Syrup 20 Gm/30 Ml Udc GT 11/09/24 08:59 10 gm QDAY JAYMIE Administration Protocol Midodrine 10 mg 10/10/24 10:00 10/11/24 13:42 Midodrine 5 Mg Tablet PO 11/09/24 09:59 10 mg TID JAYMIE Administration Ondansetron HCl 4 mg 10/09/24 21:29 Ondansetron Inj 2 Mg/Ml Inj 2 Ml IVP 11/08/24 21:28 Q6H PRN NAUSEA OR VOMITING Protocol Pantoprazole Sodium 40 mg 10/11/24 09:00 10/11/24 08:52 Pantoprazole Inj 40 Mg Vial IVP 11/10/24 08:59 40 mg QDAY JAYMIE Administration Plan Guerita Ennis is a 69-year-old nonverbal F with a PMH of epilepsy, hypertension, hyperlipidemia, diabetes mellitus and status post placement of trachea and PEG tube who presents today from subacute facility with high-grade fever and leukocytosis. Patient was admitted for the work-up and management of sepsis likely secondary to UTI and high-grade fever. #Sepsis #likely 2/2 UTI #High grade fever #Leukocytosis On admission (10/09/2024), Patient meets criteria for sepsis due to elevated WBC of 31.0, tachycardic heart rate of 114, high-grade fever of 102.6, and UTI VS treachea & PEG tube VS pneumonia as a possible source of infection. UA showed basic urine pH 8.5, 2+ protein, 2+ blood, high RBC 201, high WBC 200, and positive LE with rare bacteria present. Currently, WBC 29.1, Temp:97.8F, Heart rate 84. BP 90/51 -Sputum culture (10/09/2024): showed Serratia Marcescens, sensitive to Zoysn. Likely colonization from the tracheostomy tube. -Blood culture: no growth for 24hrs. Urine culture showed GNRx2. Plan: -Started patient on 5-day course of IV Zosyn 3.375 gm q6HR for treatment of UTI -NS maintenance fluids 125ml/hr added. -Will continue to monitor. 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 She continued to fail spontaneous breathing trials eventually requiring PEG tube with tracheostomy. Plan: -Ordered inhaled Duonebs q6HR prn for treating breathing difficulty -Started on insulin sliding scale #Normocytic anemia -past medical history of normocystic anemia likely secondary to aniema of chronic disease VS less likely CKD as patient doesn't have PMH of renal failure. -Iron:20 TIBC:228, Ferritin:353 Plan: -Consider outpatient iron -Will transfuse if Hgb<7 #Hx of PEG tube -PMH of PEG tube unable to protect airway and dysphasia secondary to status epilepticus. Plan: -Dietian following -Glucerna 1.2 at 25 ml/hr via PEG tube by pump. Advance 10 ml every 8 hrs to g oal rate of 55 ml/hr x 24 hrs. If no IV fluids, water flushes of 40 ml/hr (or per MD). #Hx of T2DM, diet controlled -PMH of diabetes mellitus type 2, Diet controlled, no medication on board with previous a1c of 5.9 Plan: -Continue to monitor fasting glucose -Consider sliding scale if needed. Hospital Management: Disposition: receiving IV Zosyn for treatment of sepsis likely 2/2 suspected UTI and pending cultures. Diet: tube feedings on glucerna. GI Prophylaxis: none Bowel Prophylaxis: GT lactulose syrup DVT Prophylaxis: heparin CODE STATUS: Full Code Assessment and plan discussed with my attending physician Dr. Boyd and Dr. Cool (PGY-3) Dr. Castellanos (PGY-1)- Internal medicine resident
[2024-10-12] VITALS (12 sets, daily range): BP systolic 121–166; BP diastolic 70–95; PULSE 78–105; RESP 15–38; TEMP 36.1–38; O2SAT 93–98
[2024-10-12] MEDS: HEPARIN SOD INJ 5000 UNIT/ML VIAL SC ×3 (05:18→21:11)
[2024-10-12] MEDS: PIPER/TAZO 3.375 GM PREMIX 3.375 GM/50 ML BAG IV (05:18)
[2024-10-12 06:12] LABS: Basophils # (Auto) 0.1 Thou/mm3 (0.0-0.2); Basophils % (Auto) 1 % (0-2.5); Eosinophils # (Auto) 0.3 Thou/mm3 (0.0-0.5); Eosinophils % (Auto) 2 % (0-10); Hematocrit 26.4 % (36.0-46.0); Immature Granulocytes Auto 0.89 Thou/mm3 (0.00-0.00); Lymphocytes # (Auto) 2.9 Thou/mm3 (1.0-4.8); Lymphocytes % (Auto) 16 % (10-50); Mean Corpuscular HGB Conc 31.4 g/dl (31.0-37.0); Mean Corpuscular Hemoglobin 30.2 pg (25.0-35.0); Mean Corpuscular Volume 96 fL (80-100); Monocytes # (Auto) 2.4 Thou/mm3 (0.0-0.8); Monocytes % (Auto) 14 % (0-12); Neutrophils # (Auto) 11.0 Thou/mm3 (1.8-7.7); Neutrophils % (Auto) 63 % (37-80); Nucleated Red Blood Cell # 0.02 Thou/mm3 (0.00-0.00); Nucleated Red Blood Cell % 0 /100 WBC (0); Platelet Count 284 Thou/mm3 (140-440); RDW Standard Deviation 58.2 fL (36.4-46.3); Red Blood Count 2.75 Miln/mm3 (4.00-5.20); White Blood Count 17.6 Thou/mm3 (3.6-11.0)
[2024-10-12 06:25] LABS: Hemoglobin 8.3 g/dL (12.0-16.0)
[2024-10-12 06:53] LABS: Alanine Aminotransferase < 7 U/L (10-49); Albumin, Serum 3.4 gm/dL (3.4-4.8); Albumin/Globulin Ratio 1.1 (1.2-2.2); Alkaline Phosphatase 71 U/L (46-116); Anion Gap 10 (7-16); Aspartate Amino Transferase 13 U/L (0-34); BUN/Creatinine Ratio 13 Ratio (12-20); Bilirubin,Total 0.2 mg/dL (0.3-1.2); Blood Urea Nitrogen 8 mg/dL (9-23); Calcium 8.5 mg/dL (8.3-10.6); Calcium (Corrected) 9.0 mg/dL (8.5-10.1); Carbon Dioxide 30.3 mMol/L (20.0-31.0); Chloride 98 mMol/L (98-107); Creatinine (Component) 0.6 mg/dL (0.6-1.3); Estimated Creatinine Clearance 94.5 mL/min (>60); Globulin 3.2 gm/dL (2.3-3.5); Glucose 125 mg/dL (74-106); Magnesium 1.6 mg/dL (1.6-2.6); Osmolality,Calculated 274 (275-295); Phosphorous 3.3 mg/dL (2.4-5.1); Potassium 4.1 mMol/L (3.4-5.1); Sodium 138 mMol/L (136-145); Total Protein 6.6 gm/dL (5.7-8.2); eGFR > 60 See Note
[2024-10-12] MEDS: Magnesium Sulfate 2 GM Ivpb 2 GM/50 ML BAG IV (08:15)
[2024-10-12] MEDS: ACETAMINOPHEN SOL 325 MG/10 ML UDC 650 MG GT (08:15)
[2024-10-12] MEDS: cefTRIAXone/D5w 1gm IV premix 1 GM/50 ML BAG IV (09:53)
--- NOTE | 2024-10-12 12:40 | ESPR_ITS ---
<Statement entered by Jane Boyd MD - 10/22/24 07:44> I reviewed above note and agree with findings and plans. I have also personally examined the patient with medicine team and went over assessment and plan with medical team including internal medicine nurse practitioner and resident physician. Documentation for date of: 10/12/24 Subjective Subjective Interval history: Patient was seen and examined at bedside. A.m. vitals and labs reviewed. Today, patient looks much more alert and oriented compared to previous days. Was able to understand and answer most of my questions through head movement. Blood culture showed no growth for 48hrs and Urine culture showed Serratia Marcescens and Ecoli, both of which were sensitive to zosyn and ceftriaxone. Patient will switch to ceftriaxone until discharge. Current temperatue is 100.3F, BP:138/83. WBC count decreaed from 29.1 to 17.6. We will continue to monitor for patient's condition and will be likely be discharged very soon. patient denied any chest pain, chest palpitations, Shortness of breathe fever or chills. Exam Vital Signs Temp Pulse Resp BP Pulse Ox O2 Del Method FiO2 99.1 F 93 15 121/94 H 97 Mechanical Ventilation 30 10/12/24 09:15 10/12/24 08:00 10/12/24 08:00 10/12/24 08:00 10/12/24 08:00 10/12/24 08:00 10/12/24 08:00 Narrative Exam General: Drowsy, Mild distress. Skin: Warm, dry, intact, no obvious rash. Head: Normocephalic, atraumatic. Eye: Normal conjunctiva, PERRL. Throat: Oral mucosa moist. No obvious lesions in oropharynx. Cardiovascular: Tachycardic. Normal rhythm, no murmur, +S1/S2. Respiratory: Tracheostomy tube in place. Lungs are clear to auscultation, respirations unlabored, no crackles, no wheezing. Gastrointestinal: Soft, nontender, non-distended. No guarding or rebound tenderness. Extremities: 1+ pedal edema. No cyanosis, no clubbing. 2+ radial pulse bilaterally, 2+ posterior tibial pulse bilaterally. Neuro: Nonverbal. Able to move upper or lower extremities +3 muscle strength bilaterally.. No overt cerebellar signs/incoordination. Objective Labs 10/12/24 05:30 10/12/24 05:30 Labs: Laboratory Results - last 24 hr 10/12/24 05:30 WBC 17.6 H D RBC 2.75 L Hgb 8.3 L Hct 26.4 L MCV 96 MCH 30.2 MCHC 31.4 RDW Std Deviation 58.2 H Plt Count 284 D Neut % (Auto) 63 Lymph % (Auto) 16 [place] % (Auto) 14 H Eos % (Auto) 2 Baso % (Auto) 1 Neut # (Auto) 11.0 H Lymph # (Auto) 2.9 [place] # (Auto) 2.4 H Eos # (Auto) 0.3 Baso # (Auto) 0.1 Immature Gran # (Auto) 0.89 H Absolute Nucleated RBC 0.02 H Immature Gran % 5 H Nucleated RBC % 0 Sodium 138 Potassium 4.1 Chloride 98 Carbon Dioxide 30.3 Anion Gap 10 BUN 8 L Creatinine 0.6 Estim Creat Clear Calc 94.5 eGFR > 60 BUN/Creatinine Ratio 13 Glucose 125 H Calculated Osmolality 274 L Calcium 8.5 Corrected Calcium 9.0 Phosphorus 3.3 Magnesium 1.6 Total Bilirubin 0.2 L AST 13 ALT < 7 L Alkaline Phosphatase 71 Total Protein 6.6 Albumin 3.4 Globulin 3.2 Albumin/Globulin Ratio 1.1 L Quality Measures Quality Measures none Advance care planning discussed with:: patient Assessment & Plan Assessment Current Active Medications: Generic Name Dose Route Start Last Admin Trade Name Freq PRN Reason Stop Dose Admin Acetaminophen 650 mg 10/10/24 02:01 10/12/24 08:15 Acetaminophen Ericka 325 Mg/10 Ml Udc GT 11/08/24 21:44 650 mg Q6HR PRN Administration Pain 1-3 or Fever>100.1 Albuterol/Ipratropium 3 ml 10/10/24 00:10 Albuterol/Ipratropium (Duoneb) Rt Ericka 3 Ml Nebu INH 11/09/24 00:59 Q6HRRT PRN wheezing Heparin Sodium (Porcine) 5,000 unit 10/09/24 22:00 10/12/24 05:18 Heparin Sod Inj 5000 Unit/Ml Vial SC 10/23/24 21:59 5,000 unit Q8HR JAYMIE Administration Ceftriaxone Sodium/Dextrose 1 gm in 50 mls @ 100 mls/hr 10/12/24 07:45 10/12/24 09:53 Rocephin/D5w 1gm Iv Premix IV 10/19/24 07:44 100 mls/hr QDAY JAYMIE Administration Ondansetron HCl 4 mg 10/09/24 21:29 Ondansetron Inj 2 Mg/Ml Inj 2 Ml IVP 11/08/24 21:28 Q6H PRN NAUSEA OR VOMITING Protocol Pantoprazole Sodium 40 mg 10/11/24 09:00 10/12/24 08:15 Pantoprazole Inj 40 Mg Vial IVP 11/10/24 08:59 40 mg QDAY JAYMIE Administration Plan Guerita Ennis is a 69-year-old nonverbal F with a PMH of epilepsy, hypertension, hyperlipidemia, diabetes mellitus and status post placement of trachea and PEG tube who presents today from subacute facility with high-grade fever and leukocytosis. Patient was admitted for the work-up and management of sepsis likely secondary to UTI and high-grade fever. #Sepsis #likely 2/2 UTI #Leukocytosis #High grade fever, resolved On admission (10/09/2024), Patient meets criteria for sepsis due to elevated WBC of 31.0, tachycardic heart rate of 114, high-grade fever of 102.6, and UTI VS treachea & PEG tube VS pneumonia as a possible source of infection. UA showed basic urine pH 8.5, 2+ protein, 2+ blood, high RBC 201, high WBC 200, and positive LE with rare bacteria present. Currently, WBC 17.6, Temp:100.3F, Heart rate 105. BP 138/83 -Sputum culture (10/09/2024): showed Serratia Marcescens , sensitive to Zoysn. Likely colonization from the tracheostomy tube. -Blood culture: no growth for 48hrs. -Urine culture: Serratia Marcescens and ecoli both sensitive to cefttriaxone and zosyn -Switched from zosyn to ceftriaxone 1g IV. Plan: -Patient changed her anbitibiotics from zosyn to ceftriaxone. -Will continue to monitor. 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 She continued to fail spontaneous breathing trials eventually requiring PEG tube with tracheostomy. Plan: -Ordered inhaled Duonebs q6HR prn for treating breathing difficulty -Started on insulin sliding scale #Normocytic anemia -past medical history of normocystic anemia likely secondary to aniema of chronic disease VS less likely CKD as patient doesn't have PMH of renal failure. -Iron:20 TIBC:228, Ferritin:353 Plan: -Consider outpatient iron -Will transfuse if Hgb<7 #Hx of PEG tube -PMH of PEG tube unable to protect airway and dysphasia secondary to status epilepticus. Plan: -Dietian following -Glucerna 1.2 at 25 ml/hr via PEG tube by pump. Advance 10 ml every 8 hrs to g oal rate of 55 ml/hr x 24 hrs. If no IV fluids, water flushes of 40 ml/hr (or per MD). #Hx of T2DM, diet controlled -PMH of diabetes mellitus type 2, Diet controlled, no medication on board with previous a1c of 5.9 Plan: -Continue to monitor fasting glucose -Consider sliding scale if needed. Hospital Management: Disposition: receiving IV Zosyn for treatment of sepsis likely 2/2 suspected UTI and pending cultures. Diet: tube feedings on glucerna. GI Prophylaxis: none Bowel Prophylaxis: GT lactulose syrup DVT Prophylaxis: heparin CODE STATUS: Full Code Assessment and plan discussed with my attending physician Dr. Oliver Castellanos (PGY-1)- Internal medicine resident
[2024-10-13] VITALS (11 sets, daily range): BP systolic 122–163; BP diastolic 81–101; PULSE 70–105; RESP 18–34; TEMP 36.1–37.7; O2SAT 96–99; BMI 30.2
[2024-10-13] MEDS: HEPARIN SOD INJ 5000 UNIT/ML VIAL SC ×3 (05:05→21:35)
[2024-10-13 05:22] LABS: Basophils # (Auto) 0.2 Thou/mm3 (0.0-0.2); Basophils % (Auto) 1 % (0-2.5); Eosinophils # (Auto) 0.4 Thou/mm3 (0.0-0.5); Eosinophils % (Auto) 2 % (0-10); Hematocrit 27.6 % (36.0-46.0); Immature Granulocytes Auto 1.04 Thou/mm3 (0.00-0.00); Lymphocytes # (Auto) 3.3 Thou/mm3 (1.0-4.8); Lymphocytes % (Auto) 18 % (10-50); Mean Corpuscular HGB Conc 31.5 g/dl (31.0-37.0); Mean Corpuscular Hemoglobin 29.7 pg (25.0-35.0); Mean Corpuscular Volume 94 fL (80-100); Monocytes # (Auto) 2.1 Thou/mm3 (0.0-0.8); Monocytes % (Auto) 11 % (0-12); Neutrophils # (Auto) 11.6 Thou/mm3 (1.8-7.7); Neutrophils % (Auto) 62 % (37-80); Nucleated Red Blood Cell # 0.02 Thou/mm3 (0.00-0.00); Nucleated Red Blood Cell % 0 /100 WBC (0); Platelet Count 283 Thou/mm3 (140-440); RDW Standard Deviation 55.9 fL (36.4-46.3); Red Blood Count 2.93 Miln/mm3 (4.00-5.20); White Blood Count 18.6 Thou/mm3 (3.6-11.0)
[2024-10-13 05:56] LABS: Hemoglobin 8.7 g/dL (12.0-16.0)
[2024-10-13 06:06] LABS: Alanine Aminotransferase < 7 U/L (10-49); Albumin, Serum 3.7 gm/dL (3.4-4.8); Albumin/Globulin Ratio 1.1 (1.2-2.2); Alkaline Phosphatase 68 U/L (46-116); Anion Gap 10 (7-16); Aspartate Amino Transferase 23 U/L (0-34); BUN/Creatinine Ratio 15 Ratio (12-20); Bilirubin,Total < 0.2 mg/dL (0.3-1.2); Blood Urea Nitrogen 9 mg/dL (9-23); Calcium 8.9 mg/dL (8.3-10.6); Calcium (Corrected) 9.1 mg/dL (8.5-10.1); Carbon Dioxide 34.2 mMol/L (20.0-31.0); Chloride 96 mMol/L (98-107); Creatinine (Component) 0.6 mg/dL (0.6-1.3); Estimated Creatinine Clearance 96.0 mL/min (>60); Globulin 3.3 gm/dL (2.3-3.5); Glucose 108 mg/dL (74-106); Magnesium 1.8 mg/dL (1.6-2.6); Osmolality,Calculated 279 (275-295); Phosphorous 3.8 mg/dL (2.4-5.1); Potassium 4.2 mMol/L (3.4-5.1); Sodium 140 mMol/L (136-145); Total Protein 7.0 gm/dL (5.7-8.2); eGFR > 60 See Note
[2024-10-13] MEDS: ACETAMINOPHEN SOL 325 MG/10 ML UDC 650 MG GT (08:42)
[2024-10-13] MEDS: cefTRIAXone/D5w 1gm IV premix 1 GM/50 ML BAG IV (08:43)
--- NOTE | 2024-10-13 12:42 | ESPR_ITS ---
<Statement entered by Jane Boyd MD - 10/22/24 07:46> I reviewed above note and agree with findings and plans. I have also personally examined the patient with medicine team and went over assessment and plan with medical team including editorial intern and resident physician. Documentation for date of: 10/13/24 Subjective Subjective Interval history: Patient evaluated bedside, she is much more alert and interacting with environment, eye tracking positive, able to shake her head and yes/no questions. On repeat evaluation during rounds patient did say that she was not feeling very good, answered yes to pictorial chart for abdominal discomfort and difficulty having bowel movement. Added lactulose x 1, but patient had large bowel movement today. Continues to be on spontaneous breathing SIMV mode with tracheostomy. Exam Vital Signs Temp Pulse Resp BP Pulse Ox O2 Del Method FiO2 97.4 F 90 20 160/95 H 98 Mechanical Ventilation 30 10/13/24 08:00 10/13/24 12:02 10/13/24 08:00 10/13/24 08:00 10/13/24 12:02 10/13/24 08:00 10/13/24 12:02 Narrative Exam General: Awake and alert, nonverbal, but responding with head nods. Skin: Warm, dry, intact, no obvious rash. Head: Normocephalic, atraumatic. Eye: Normal conjunctiva, PERRL. Throat: Oral mucosa moist. No obvious lesions in oropharynx. Cardiovascular: Tachycardic. Normal rhythm, no murmur, +S1/S2. Respiratory: Tracheostomy tube in place. Lungs are clear to auscultation, respirations unlabored, no crackles, no wheezing. Gastrointestinal: Soft, nontender, non-distended. No guarding or rebound tenderness. Extremities: 1+ pedal edema. No cyanosis, no clubbing. 2+ radial pulse bilaterally, 2+ posterior tibial pulse bilaterally. Neuro: Nonverbal. Able to move upper or lower extremities +3 muscle strength bilaterally. No overt cerebellar signs/incoordination. Objective Labs 10/13/24 04:35 10/13/24 04:35 Labs: Laboratory Results - last 24 hr 10/10/24 10/13/24 09:16 04:35 WBC 18.6 H RBC 2.93 L Hgb 8.7 L Hct 27.6 L MCV 94 MCH 29.7 MCHC 31.5 RDW Std Deviation 55.9 H Plt Count 283 Neut % (Auto) 62 Lymph % (Auto) 18 [place] % (Auto) 11 Eos % (Auto) 2 Baso % (Auto) 1 Neut # (Auto) 11.6 H Lymph # (Auto) 3.3 [place] # (Auto) 2.1 H Eos # (Auto) 0.4 Baso # (Auto) 0.2 Immature Gran # (Auto) 1.04 H Absolute Nucleated RBC 0.02 H Immature Gran % 6 H Nucleated RBC % 0 Sodium 140 Potassium 4.2 Chloride 96 L Carbon Dioxide 34.2 H Anion Gap 10 BUN 9 Creatinine 0.6 Estim Creat Clear Calc 96.0 eGFR > 60 BUN/Creatinine Ratio 15 Glucose 108 H Calculated Osmolality 279 Calcium 8.9 Corrected Calcium 9.1 Phosphorus 3.8 Magnesium 1.8 Total Bilirubin < 0.2 L AST 23 ALT < 7 L Alkaline Phosphatase 68 Total Protein 7.0 Albumin 3.7 Globulin 3.3 Albumin/Globulin Ratio 1.1 L Crossmatch See Detail Quality Measures Quality Measures none Advance care planning discussed with:: patient Assessment & Plan Assessment Current Active Medications: Generic Name Dose Route Start Last Admin Trade Name Freq PRN Reason Stop Dose Admin Acetaminophen 650 mg 10/10/24 02:01 10/13/24 08:42 Acetaminophen Ericka 325 Mg/10 Ml Udc GT 11/08/24 21:44 650 mg Q6HR PRN Administration Pain 1-3 or Fever>100.1 Albuterol/Ipratropium 3 ml 10/10/24 00:10 Albuterol/Ipratropium (Duoneb) Rt Ericka 3 Ml Nebu INH 11/09/24 00:59 Q6HRRT PRN wheezing Heparin Sodium (Porcine) 5,000 unit 10/09/24 22:00 10/13/24 05:05 Heparin Sod Inj 5000 Unit/Ml Vial SC 10/23/24 21:59 5,000 unit Q8HR JAYMIE Administration Ceftriaxone Sodium/Dextrose 1 gm in 50 mls @ 100 mls/hr 10/12/24 07:45 10/13/24 08:43 Rocephin/D5w 1gm Iv Premix IV 10/19/24 07:44 100 mls/hr QDAY JAYMIE Administration Ondansetron HCl 4 mg 10/09/24 21:29 Ondansetron Inj 2 Mg/Ml Inj 2 Ml IVP 11/08/24 21:28 Q6H PRN NAUSEA OR VOMITING Protocol Pantoprazole Sodium 40 mg 10/11/24 09:00 10/13/24 08:43 Pantoprazole Inj 40 Mg Vial IVP 11/10/24 08:59 40 mg QDAY JAYMIE Administration Plan Guerita Ennis is a 69-year-old nonverbal F with a PMH of epilepsy, hypertension, hyperlipidemia, diabetes mellitus and status post placement of trachea and PEG tube who presents today from subacute facility with high-grade fever and leukocytosis. Patient was admitted for the work-up and management of sepsis likely secondary to UTI and high-grade fever. # Sepsis secondary to UTI #UTI secondary to E. coli and Serratia #Possible Serratia colonization of upper airway On admission (10/09/2024), Patient meets criteria for sepsis due to elevated WBC of 31.0, tachycardic heart rate of 114, high-grade fever of 102.6, and UTI VS treachea & PEG tube VS pneumonia as a possible source of infection. UA showed basic urine pH 8.5, 2+ protein, 2+ blood, high RBC 201, high WBC 200, and positive LE with rare bacteria present. Noted slight uptrend in WBC count, patient continues to stay afebrile, will continue ceftriaxone based on culture sensitivity. -Sputum culture (10/09/2024): showed Serratia Marcescens , sensitive to Zoysn. Likely colonization from the tracheostomy tube. -Blood culture: no growth for 48hrs. -Urine culture: Serratia Marcescens and ecoli both sensitive to cefttriaxone and zosyn Plan: -IV ceftriaxone 1gm qday -Will continue to monitor. 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 She continued to fail spontaneous breathing trials eventually requiring PEG tube with tracheostomy. Plan: -Ordered inhaled Duonebs q6HR prn for treating breathing difficulty -Started on insulin sliding scale #Normocytic anemia -past medical history of normocystic anemia likely secondary to aniema of chronic disease VS less likely CKD as patient doesn't have PMH of renal failure. -Iron:20 TIBC:228, Ferritin:353 Plan: -Consider outpatient iron -Will transfuse if Hgb<7 #Hx of PEG tube -PMH of PEG tube unable to protect airway and dysphasia secondary to status epilepticus. Plan: -Dietian following -Glucerna 1.2 at 25 ml/hr via PEG tube by pump. Advance 10 ml every 8 hrs to g oal rate of 55 ml/hr x 24 hrs. If no IV fluids, water flushes of 40 ml/hr (or per MD). #Hx of T2DM, diet controlled -PMH of diabetes mellitus type 2, Diet controlled, no medication on board with previous a1c of 5.9 Plan: -Continue to monitor fasting glucose -Consider sliding scale if needed. Hospital Management: Disposition: receiving IV antibiotics, plan to discharge to subacute tomorrow. Diet: tube feedings on glucerna. GI Prophylaxis: none Bowel Prophylaxis: GT lactulose syrup DVT Prophylaxis: heparin CODE STATUS: Full Code Assessment and plan discussed with my attending physician Dr. Oliver Cool PGY 3
[2024-10-14] VITALS (7 sets, daily range): BP systolic 131–149; BP diastolic 72–96; PULSE 80–130; RESP 18–31; TEMP 36.1–37.4; O2SAT 95–99; BMI 30.2
[2024-10-14] MEDS: VALPROIC ACID SYRUP 250 MG/5 ML UDC 500 MG GT (04:01)
--- NOTE | 2024-10-14 04:10 | PC.LAC ---
PT NOTED TO HAVE SEIZURE LIKE ACTIVITY AT 0240 AND 0340 (SEVERE FACIAL TWITCHING LASTING 30-45 SECONDS). PT APPEARED TO BE BACK TO HER NEURO BASELINE IMMEDIATELY AFTER BOTH INCIDENT (E.G. ABLE TO NOD HER HEAD 'YES/NO' TO QUESTIONS. ABLE TO FOLLOW SIMPLE COMMANDS). DR HEATH REORDERED 2 SEIZURE MEDICATIONS THAT THE PATIENT WAS ON PRIOR TO ADMISSION.
--- NOTE | 2024-10-14 04:26 | PC.NURSE ---
PT NOTED TO HAVE SEIZURE-LIKE ACTIVITY AT 0240 AND 0340 (SEVERE FACIAL TWITCHING LASTING 30-45 SECONDS). PT APPEARED TO BE BACK TO HER NEURO-BASELINE IMMEDIATELY AFTER BOTH INCIDENT (E.G. ABLE TO NOD HER HEAD 'YES/NO' TO QUESTIONS. ABLE TO FOLLOW SIMPLE COMMANDS). DR HEATH INFORMED BOTH TIMES. DR HEATH REORDERED 2 SEIZURE MEDICATIONS THAT THE PATIENT WAS ON PRIOR TO ADMISSION.
[2024-10-14] MEDS: levETIRAcetam LIQD 500 MG/5 ML UDC 1000 MG GT (04:52)
[2024-10-14] MEDS: HEPARIN SOD INJ 5000 UNIT/ML VIAL SC (05:29)
[2024-10-14 07:17] LABS: Basophils # (Auto) 0.2 Thou/mm3 (0.0-0.2); Basophils % (Auto) 1 % (0-2.5); Eosinophils # (Auto) 0.4 Thou/mm3 (0.0-0.5); Eosinophils % (Auto) 2 % (0-10); Hematocrit 25.5 % (36.0-46.0); Immature Granulocytes Auto 1.18 Thou/mm3 (0.00-0.00); Lymphocytes # (Auto) 3.4 Thou/mm3 (1.0-4.8); Lymphocytes % (Auto) 18 % (10-50); Mean Corpuscular HGB Conc 32.9 g/dl (31.0-37.0); Mean Corpuscular Hemoglobin 29.7 pg (25.0-35.0); Mean Corpuscular Volume 90 fL (80-100); Monocytes # (Auto) 1.9 Thou/mm3 (0.0-0.8); Monocytes % (Auto) 10 % (0-12); Neutrophils # (Auto) 12.5 Thou/mm3 (1.8-7.7); Neutrophils % (Auto) 64 % (37-80); Nucleated Red Blood Cell # 0.05 Thou/mm3 (0.00-0.00); Nucleated Red Blood Cell % 0 /100 WBC (0); Platelet Count 354 Thou/mm3 (140-440); RDW Standard Deviation 53.3 fL (36.4-46.3); Red Blood Count 2.83 Miln/mm3 (4.00-5.20); White Blood Count 19.6 Thou/mm3 (3.6-11.0)
[2024-10-14 07:22] LABS: Hemoglobin 8.4 g/dL (12.0-16.0)
[2024-10-14 07:39] LABS: Alanine Aminotransferase 9 U/L (10-49); Albumin, Serum 3.6 gm/dL (3.4-4.8); Albumin/Globulin Ratio 1.2 (1.2-2.2); Alkaline Phosphatase 70 U/L (46-116); Anion Gap 11 (7-16); Aspartate Amino Transferase 24 U/L (0-34); BUN/Creatinine Ratio 22 Ratio (12-20); Bilirubin,Total < 0.2 mg/dL (0.3-1.2); Blood Urea Nitrogen 13 mg/dL (9-23); Calcium 8.9 mg/dL (8.3-10.6); Calcium (Corrected) 9.2 mg/dL (8.5-10.1); Carbon Dioxide 32.1 mMol/L (20.0-31.0); Chloride 94 mMol/L (98-107); Creatinine (Component) 0.6 mg/dL (0.6-1.3); Estimated Creatinine Clearance 96.0 mL/min (>60); Globulin 3.1 gm/dL (2.3-3.5); Glucose 123 mg/dL (74-106); Osmolality,Calculated 274 (275-295); Potassium 4.6 mMol/L (3.4-5.1); Sodium 137 mMol/L (136-145); Total Protein 6.7 gm/dL (5.7-8.2); eGFR > 60 See Note
[2024-10-14] MEDS: cefTRIAXone/D5w 1gm IV premix 1 GM/50 ML BAG IV (08:14)
--- NOTE | 2024-10-14 09:20 | PC.SS ---
Update: Plan is for the patient to transition back to Sub-Acute today.
--- NOTE | 2024-10-14 09:21 | PC.SS ---
FIXING MACHINE OPERATOR informed resident of need to update Dr. Silverio that plan is to return the patient back to Sub-Acute today.
--- NOTE | 2024-10-14 09:22 | PC.SS ---
LAB TESTER notified sub-acute staff that plan is for the patient to return to sub-acute today. Sub-acute informed that patient will require Ceftriaxone for 4 more days to complete course of antibiotics for UTI. Sub-Acute staff confirmed that patient can return to unit and complete IV antibiotic regimen at [facility].
--- NOTE | 2024-10-14 10:01 | PC.SS ---
PASSR completed. ?Level II Mental Health Evaluation referral is not required due to a Categorical Condition. On line closure is pending.
--- NOTE | 2024-10-14 10:37 | ESDS_ITS ---
<Statement entered by Jane Boyd MD - 10/22/24 07:46> I reviewed above note and agree with findings and plans. I have also personally examined the patient with medicine team and went over assessment and plan with medical team including international marketing coordinator and resident physician. Planned Discharge Date 10/14/24 DS: Providers Provider Date of admission: 10/09/24 21:30 Primary care physician: Physician No Primary/Family Admitting Provider: Jarod Barlow MD Attending Provider on Admission: Jane Boyd MD Consults: 10/09/24 21:47 Referral Registered Dietitian Routine Comment: 10/10/24 07:02 Referral Wound Care Urgent Comment: Attending Provider on DC: RESIDENT Tristen Discharging Provider: RESIDENT Tristen DS: Diagnosis Problem List Completed Was Problem List Reviewed/Reconciled?: Yes Hospital Course Hospital Course Hospital course: Summary: Guerita Ennis is a 69-year-old nonverbal F with a PMH of epilepsy, hyperten babita, hyperlipidemia, diabetes mellitus and status post placement of trachea and PEG tube who presents today from subacute facility with high-grade fever and leukocytosis. Patient was treated with IV antibiotics and discharged to subacute facility. ED Course: CBC showed high WBC 31.0, low Hgb 9.6, and high RDW 55.7. CMP showed low sodium 132, low chloride 91, high CO2 33.5, and high blood glucos e 188. Chest x-ray was unremarkable. EKG showed sinus tachycardia with short AZ interval with occasional ventricular premature complexes, left axis deviation, and possible old anterior myocardial infarction. Patient was given 250 mL NS bolus x 1 and IV ceftriaxone 2 g x 1. Patient was admitted for the work-up and management of sepsis likely secondary to UTI and high-grade fever. Hospital Course: Upon admission, Patient met criteria for sepsis due to elevated WBC of 31.0, tachycardic heart rate of 114, high-grade fever of 102.6, and UTI as a possible source of infection. Patient started on IV zoxyn 3.375 gm for UTI and inhaled Duonebs 16hr prn for breathing difficulty. Sputum culture showed Serratia Marcescens, sensitive to Zoysn. Urine culture showed Serratia Marcescens and ecoli both sensitive to cefttriaxone and zosyn. Patient was switched from zosyn to ceftriaxone 1g IV. Patient has returned to her baseline as she was interacting with with environment, able to track movment with eyes, and able to shake her head for yes/no questions. Patient became afebrile,with stable respiratory rate and blood pressure. Patient discharged to subacute facility with IV ceftriaxone. # Sepsis secondary to UTI #UTI secondary to E. coli and Serratia #Possible Serratia colonization of upper airway #Chronic health problems #Acute on Chronic respiratory failure w/ tracheostomy dependence #Normocytic anemia #Hx of PEG tube #Hx of T2DM, diet controlled Instructions: -please continue Ceftriaxone for 4 more days to complete course of antibiotics for UTI -Please continue medications as prescribed. --Please follow up with your primary care provider within one week of discharge -If your symptoms worsen,please seek immediate medical attention and return to your nearest emergency room -If you do not have a primary care provider, you may follow up at the [facility] [address], [place] [address], Safe to discharge to Subacute Facility Assessment and plan discussed with my attending physician Dr. Boyd and Dr. Cool (PGY-3) Dr. Castellanos (PGY-1)- Internal medicine resident Senior resident attestation: Patient evaluated and examined at the bedside, plan of care discussed with rest of the team including my attending physician, except as noted. Silvina PGY3 Time Spent with Patient Time attestation: Total time spent providing and/or coordinating discharge services: Time spent: Greater than 30 minutes Exam Vital Signs Temp Pulse Resp BP Pulse Ox O2 Del Method FiO2 97.2 F 93 25 H 131/72 H 96 Mechanical Ventilation 30 10/14/24 08:00 10/14/24 08:00 10/14/24 08:00 10/14/24 08:00 10/14/24 08:00 10/14/24 08:00 10/14/24 08:00 Narrative Exam General: Awake and alert, nonverbal, but responding with head nods. Skin: Warm, dry, intact, no obvious rash. Head: Normocephalic, atraumatic. Eye: Normal conjunctiva, PERRL. Throat: Oral mucosa moist. No obvious lesions in oropharynx. Cardiovascular: Tachycardic. Normal rhythm, no murmur, +S1/S2. Respiratory: Tracheostomy tube in place. Lungs are clear to auscultation, respirations unlabored, no crackles, no wheezing. Gastrointestinal: Soft, nontender, non-distended. No guarding or rebound tenderness. Extremities: 1+ pedal edema. No cyanosis, no clubbing. 2+ radial pulse bilaterally, 2+ posterior tibial pulse bilaterally. Neuro: Nonverbal. Able to move upper or lower extremities +3 muscle strength bilaterally. No overt cerebellar signs/incoordination. Discharge Plan Plan Patient Disposition: Xfer [facility] [facility] Acute w/in Hosp Patient condition on transfer: Stable Care Plan Goals: Instructions: -please continue Ceftriaxone for 4 more days to complete course of antibiotics for UTI -Please continue medications as prescribed. --Please follow up with your primary care provider within one week of discharge -If your symptoms worsen,please seek immediate medical attention and return to your nearest emergency room -If you do not have a primary care provider, you may follow up at the [facility] at [address], [place] [address], Prescriptions/Referrals Prescriptions/Med Rec: New ceftriaxone in dextrose,iso-os 1 gram/50 mL Piggyback 1 g IV QDAY 4 Days Qty: 24 0RF Rx Instructions: please continue until the 18 of October Continued Gvoke 1mg/0.2 Ml 1 mg IM Q15MIN PRN (Reason: Hypocalcemia) Patient Comments: for blood glucose <70 and no IV access No Action acetaminophen 325 mg tablet 650 mg G-tube Q4HR PRN (Reason: FEVER > 101) 30 Days 0RF Rx Instructions: 650mg Q4H PGT as needed for fever acetaminophen 325 mg tablet 650 mg G-tube Q6HR PRN (Reason: Pain Scale 1-3 (Mild) 30 Days 0RF Rx Instructions: Do not exceed 3gm a day from any source in 24 hours. artificial tear([id number]) [GenTeal Tears Moderate] 0.1-0.3-0.2 % drops 2 drp Both eyes Q8HR 30 Days 0RF Rx Instructions: FOR DRYNESS aspirin 81 mg tablet,chewable 81 mg G-tube QDAY 30 Days Qty: 30 0RF Rx Instructions: Give one tab daily PGT for DVT prevention atorvastatin 20 mg tablet 40 mg G-tube HS 30 Days Qty: 60 0RF bisacodyl [Dulcolax (bisacodyl)] 10 mg suppository 10 mg AZ PRN PRN (Reason: No BM Per Bowel Management Protocol) 30 Days 0RF Rx Instructions: Administer as needed on 6th shift, if MOM ineffective. buspirone 10 mg tablet 10 mg G-tube BID 30 Days Qty: 30 0RF Rx Instructions: Continue Buspirone 10mg BID x30 days then re-evaluate with MD. cholecalciferol (vitamin D3) 25 mcg (1,000 unit) tablet 25 mcg G-tube BID 30 Days Qty: 30 0RF enoxaparin 40 mg/0.4 mL syringe 40 mg SCi QDAY 90 Days Qty: 36 0RF Gvoke 1 mg/0.2 mL solution 1 mg IM Q15MIN PRN (Reason: Hypoglycemia) 30 Days 0RF guaifenesin [Taylor-Tussin] 100 mg/5 mL liquid 300 mg G-tube Q6HR PRN (Reason: Cough) 30 Days 0RF Rx Instructions: Conc: 100MG/5ML- give 300mg/15ml insulin lispro 100 unit/mL insulin pen See Protocol SCi ,18 30 Days 0RF Protocol: Insulin correction Scale Condition: 150-200 mg/dL Dose/Route: 1 unit Condition: 201-250 mg/dL Dose/Route: 2 units Condition: 251-300 mg/dL Dose/Route: 3 units Condition: Greater than 300 mg/dL Dose/Route: 4 units Label Comments: diabetes Rx Instructions: Per Sliding Scale as follows: 0-150= 0 units; 151-200= 2 units; 201-250= 4 units; 251-300= 6 units; 301-350= 8 units; 351-400= 10 units; >400= 12 units; and call ipratropium-albuterol 0.5 mg-3 mg(2.5 mg base)/3 mL solution for nebulization 3 ml INH Q2HR PRN (Reason: Wheezing) 30 Days 0RF levetiracetam 100 mg/mL solution 1,000 mg G-tube BID 30 Days Qty: 300 0RF Rx Instructions: give [id number] for seizures lorazepam 2 mg/mL solution 0.5 mg IM PRNMRX1 PRN (Reason: Seizure Activity) 365 Days 0RF magnesium hydroxide [Milk of Magnesia] 400 mg/5 mL suspension 30 ml G-tube PRN PRN (Reason: Constipation) 30 Days 0RF Rx Instructions: CONC: 400MG/5ML polyethylene glycol 3350 17 gram powder in packet 17 g G-tube PRN PRN (Reason: No BM Per Bowel Management Protocol) 30 Days 0RF Rx Instructions: Mix with 4oz of water before giving. Hold tube feeding for 30 minutes after administration. Notify provider if no results from Miralax. Fleet Enema 19-7 gram/118 mL enema 133 ml AZ PRN PRN (Reason: No BM Per Bowel Management Protocol) 30 Days 0RF valproic acid (as sodium salt) 250 mg/5 mL solution 500 mg G-tube TID 30 Days Qty: 300 0RF Rx Instructions: Valproic acid 250/5ml chelsey. Give 500mg (10ml) PGT for seizures polyethylene glycol 3350 17 gram powder in packet 17 g G-tube PRN PRN (Reason: No BM Per Bowel Management Protocol) 365 Days Qty: 1 0RF Label Comments: Administer as needed if 2nd round bowel protocol ineffective. Rx Instructions: Mix with 4oz of water before giving. Hold tube feeding for 30 minutes after administration. Notify provider if no results from Miralax. magnesium hydroxide [Milk of Magnesia] 400 mg/5 mL suspension 30 ml G-tube PRN PRN (Reason: Constipation) 365 Days Qty: 30 0RF Rx Instructions: CONC: 400MG/5ML bisacodyl [Dulcolax (bisacodyl)] 10 mg suppository 10 mg AZ PRN PRN (Reason: No BM Per Bowel Management Protocol) 365 Days Qty: 1 0RF Rx Instructions: Administer as needed on 6th shift, if MOM ineffective. Fleet Enema 19-7 gram/118 mL enema 133 ml AZ PRN PRN (Reason: No BM Per Bowel Management Protocol) 365 Days Qty: 133 0RF Label Comments: If Dulcolax is ineffective on 3rd day / 7th shift, give Fleets enema per Bowel Management Protocol. Notify MD if no results from Enema. ceftriaxone 1 gram recon soln 1 g IVP QDAY 4 Days 0RF Ear Wax Removal Drops 6.5 % drops 5 drp otic (ear) Q61D Qty: 15 11RF Ear Wax Removal Drops 6.5 % drops 5 drp otic (ear) Q61D Qty: 15 11RF Rx Instructions: 5 drops per ear at first med pass of shift. Then irrigate ears with NS at next med pass of each shift x 4 days for wax build up. *Start on the of the month, every two months. Ear Wax Removal Drops 6.5 % drops 5 drp otic (ear) Q61D Qty: 15 11RF Ear Wax Removal Drops 6.5 % drops 5 drp otic (ear) Q61D Qty: 15 11RF Rx Instructions: 5 drops per ear at first med pass of shift. Then irrigate ears with NS at next med pass of each shift x 4 days for wax build up. *Start on the of the month, every two months. Ear Wax Removal Drops 6.5 % drops 5 drp otic (ear) Q61D Qty: 15 11RF Ear Wax Removal Drops 6.5 % drops 5 drp otic (ear) Q61D Qty: 15 11RF Rx Instructions: 5 drops per ear at first med pass of shift. Then irrigate ears with NS at next med pass of each shift x 4 days for wax build up. *Start on the of the month, every two months. Ear Wax Removal Drops 6.5 % drops 5 drp otic (ear) Q61D Qty: 15 11RF Ear Wax Removal Drops 6.5 % drops 5 drp otic (ear) Q61D Qty: 15 11RF Referrals: No Primary/Family,Physician [Primary Care Provider] - Patient/Caregiver Discharge Instructions Education Materials: ED CYSTITIS Female Adult Print Language: Czech Stand Alone Forms: Johana Award Info., Patient Portal Info Letter Discharge Order Discharge Orders: Discharge (Routine); Ordered 10/14/24 Ordered By: Devorah Barreto Quality Discharge Quality Measures VTE prophylaxis
--- NOTE | 2024-10-14 11:56 | PC.SS ---
TEST AND BALANCE ENGINEER attempted phone contact with [facility] staff to request closure on line [facility].? Plan is for the patient to discharge back to Sub-Acute today.?
--- NOTE | 2024-10-14 12:41 | PC.SS ---
[facility] closed on line. [facility] submitted to Sub-Acute via file exchange.
--- NOTE | 2024-10-14 13:45 | PC.NURSE ---
@[id number]- report provided via phone to Destiny MEJIA @[phone]- Pt transferred off unit. @[phone]- Discharge packet provided to Michele MEJIA Pt remains with peripheral IV's x2 for continued antibiotics. Pt remains with indwelling catheter for chronic use.
== END 2024-10-14 13:45 | disposition skilled nursing facility (03) | DRG 871 ==
LOC: SERX 21:08 → SERHOLD 22:24 → S2NX 23:54
PROVIDERS: Physician Assistant Medical; Student in an Organized Health Care Education/Training Program; Admitting Provider Student in an Organized Health Care Education/Training Program; Emergency Provider Emergency Medicine; Visit Provider Internal Medicine
DX: A41.51 Sepsis due to Escherichia coli [E. coli] (principal); J96.20 Acute and chronic respiratory failure, unspecified whether with hypoxia or hypercapnia; I50.32 Chronic diastolic (congestive) heart failure; N39.0 Urinary tract infection, site not specified; G40.909 Epilepsy, unspecified, not intractable, without status epilepticus; E78.5 Hyperlipidemia, unspecified; I11.0 Hypertensive heart disease with heart failure; Z93.1 Gastrostomy status; Z93.0 Tracheostomy status; D64.9 Anemia, unspecified; E11.9 Type 2 diabetes mellitus without complications; I25.2 Old myocardial infarction; Z87.440 Personal history of urinary (tract) infections; Z88.5 Allergy status to narcotic agent
CPT/HCPCS: 36415; 36600; 71045; 80053; 82270; 82728; 82803; 83540; 83550; 83605; 83735; 83880; 84100; 84145; 85014; 85018; 85025; 85046; 85610; 85730; 86850; 86900; 86901; 86923; 87040; 87081; 87086; 87811; 93005; 94003; 94664; 96365; A9270; J0131; J0696; J1644; J2470; J2543; J3370; J3475; J3490; J7030; J7050; J7120; J7999

== ENCOUNTER 2024-10-14 14:24 | Inpatient (IN) | payer MEDICARE, MEDICAID, SELFPAY ==
--- NOTE | 2024-10-14 14:33 | PC.SS ---
Resident admitted from acute care to subacute care on vent with trach in place and GT for medication and nutrition. Resident remains DNR with selective treatment, her sister Suzie is here decision maker. Resident has POA in place, her sister Suzie is her health care proxy. Resident will remain in current care due to her family not being able to care for her at home as she has a heavy and complicated care regimen. She will have all subacute care needs met by staff. This SSD will make daily contact with resident and will monitor for changes in mood and behavior.
[2024-10-14 17:07] VITALS: BMI 31.6
[2024-10-14 17:09] VITALS: BP 136/78; PULSE 114; RESP 27; TEMP 37.2; O2SAT 95
[2024-10-14 18:00] VITALS: BP 100/65; PULSE 84; RESP 18; TEMP 36.4; O2SAT 98
[2024-10-14 19:13] VITALS: PULSE 70; RESP 18; O2SAT 98
[2024-10-14 19:22] VITALS: PULSE 69; RESP 18; O2SAT 98
[2024-10-14] MEDS: ATORVASTATIN 20 MG TABLET 40 MG GT (21:44)
[2024-10-14] MEDS: BUSPIRONE 10 MG TABLET GT (21:45)
[2024-10-14] MEDS: CHOLECALCIFEROL (VITAMIN D3) 25 MCG TABLET GT (21:46)
[2024-10-14] MEDS: DEX/HYPRO/GLY ARTIFICAL TEARS 225 DROP/15 ML BTL BOTH EYES (21:49)
[2024-10-14] MEDS: VALPROIC ACID 250 MG/5 ML 500 MG GT (21:49)
--- NOTE | 2024-10-14 22:00 | PC.NURSE ---
IV TO LEFT UPPER ARM 18G REMOVED, NOT FLUSHING, REDNESS NOTED FROM TAPE AND TO THE INSERTION SITE. NO SWELLING NOTED. CATHETER INTACT, NO BLEEDING.
--- NOTE | 2024-10-14 22:10 | PD.SAHP ---
Physical exam Physical Exam Vital signs: Temp Pulse Resp BP Pulse Ox O2 Del Method FiO2 97.0 F 81 24 H 137/83 H 98 Mechanical Ventilation 35 10/21/24 06:00 10/21/24 12:48 10/21/24 06:40 10/21/24 06:00 10/21/24 12:48 10/21/24 06:00 10/21/24 12:48 Narrative: No improvement in mental cognition Constitutional Comments: VSS HEENT Exam Comments: NAD Neck Exam Comments: NAD Chest/Breast/Axilla Exam Comments: NAD Respiratory Exam Respiratory: Present chest non-tender, lungs clear and patient mechanically ventilated Cardiovascular Exam Cardiovascular: Present RRR, S1 and S2 Abdominal Exam Abdominal: Present soft Rectal Exam Comments: deferred Exam Comments: NAD Extremities Exam Comments: no edema Back/Spine/Pelvis Exam Comments: NAD Neurological Exam Comments: spontanous eye opening, no orientation to place/person/time. No cognitive response Rehabilitation potential Diagnosis (1) Chronic respiratory failure: Status: Chronic (2) Ventilator dependent: Status: Chronic (3) Tracheostomy dependence: Status: Chronic (4) Urinary tract infection: Status: Acute (5) PEG (percutaneous endoscopic gastrostomy) status: Status: Chronic (6) Essential hypertension: Status: Chronic (7) Seizures: Status: Chronic (8) Chronic anoxic encephalopathy: Status: Chronic Assessment & Plan Assessment: Pt.with Hypertension/hyperlipidemia/epilepsy, recently treated in acute care for UTI sepsis with and on Rocephin one gram daily iv x 4 days. chronic encephalopathy/ chronic respiratory failure/ Ventilator dependent/Trach and feeding G tube as before. Afebrile. VSS. Plan: Current treatment reviewed and continued. Prognosis Prognosis: Poor for any meaningful recovery towards independent living. Patient informed of condition: No If patient not informed of condion, describe why: pt not cognizant to comprehend HPI History of Present Illness HPI: 69 yrs of age female being re-admitted to [facility] with Hypertension/hyperlipidemia/epilepsy, recently treated in acute care for UTI sepsis with and on Rocephin one gram daily iv x 4 days. chronic encephalopathy/ chronic respiratory failure/ Ventilator dependent/Trach and feeding G tube as before.
[2024-10-15] VITALS (8 sets, daily range): BP systolic 102–137; BP diastolic 72–82; PULSE 71–83; RESP 18–31; TEMP 35.9–36.6; O2SAT 98–99
[2024-10-15] MEDS: VALPROIC ACID 250 MG/5 ML 500 MG GT ×3 (05:08→21:49)
[2024-10-15] MEDS: DEX/HYPRO/GLY ARTIFICAL TEARS 225 DROP/15 ML BTL BOTH EYES ×3 (05:08→21:49)
[2024-10-15] MEDS: ASPIRIN 81 MG TAB.CHEW GT (08:37)
[2024-10-15] MEDS: BUSPIRONE 10 MG TABLET GT ×2 (08:37→21:48)
[2024-10-15] MEDS: ENOXAPARIN SODIUM 40 MG/0.4 ML SYRINGE SC (08:38)
[2024-10-15] MEDS: CHOLECALCIFEROL (VITAMIN D3) 25 MCG TABLET GT ×2 (08:38→21:48)
[2024-10-15] MEDS: CARBAMIDE PEROXIDE OTIC SOL 15 ML BTL 5 DROP BOTH EARS ×2 (08:40→21:48)
[2024-10-15] MEDS: CEFTRIAXONE 1 GM VIAL.PORT IVP (08:41)
[2024-10-15] MEDS: ACETAMINOPHEN 325 MG TABLET 650 MG GT (12:32)
[2024-10-15] MEDS: ATORVASTATIN 20 MG TABLET 40 MG GT (21:48)
[2024-10-16] VITALS (8 sets, daily range): BP systolic 110–133; BP diastolic 64–84; PULSE 73–98; RESP 18–20; TEMP 36.2–36.4; O2SAT 94–99
[2024-10-16] MEDS: VALPROIC ACID 250 MG/5 ML 500 MG GT ×3 (05:44→21:33)
[2024-10-16] MEDS: DEX/HYPRO/GLY ARTIFICAL TEARS 225 DROP/15 ML BTL BOTH EYES ×3 (05:44→21:33)
[2024-10-16] MEDS: CEFTRIAXONE 1 GM VIAL.PORT IVP (09:00)
[2024-10-16] MEDS: ASPIRIN 81 MG TAB.CHEW GT (09:35)
[2024-10-16] MEDS: CARBAMIDE PEROXIDE OTIC SOL 15 ML BTL 5 DROP BOTH EARS ×2 (09:36→21:32)
[2024-10-16] MEDS: BUSPIRONE 10 MG TABLET GT ×2 (09:36→21:31)
[2024-10-16] MEDS: CHOLECALCIFEROL (VITAMIN D3) 25 MCG TABLET GT ×2 (09:37→21:33)
[2024-10-16] MEDS: ENOXAPARIN SODIUM 40 MG/0.4 ML SYRINGE SC (09:38)
[2024-10-16] MEDS: ATORVASTATIN 20 MG TABLET 40 MG GT (21:30)
[2024-10-17] VITALS (8 sets, daily range): BP systolic 100–124; BP diastolic 76–89; PULSE 79–95; RESP 18–29; TEMP 36.2–36.5; O2SAT 95–98
[2024-10-17] MEDS: VALPROIC ACID 250 MG/5 ML 500 MG GT ×3 (05:17→21:52)
[2024-10-17] MEDS: DEX/HYPRO/GLY ARTIFICAL TEARS 225 DROP/15 ML BTL BOTH EYES ×3 (05:17→21:51)
[2024-10-17] MEDS: CEFTRIAXONE 1 GM VIAL.PORT IVP (09:00)
[2024-10-17] MEDS: ASPIRIN 81 MG TAB.CHEW GT (09:03)
[2024-10-17] MEDS: BUSPIRONE 10 MG TABLET GT ×2 (09:05→21:50)
[2024-10-17] MEDS: ENOXAPARIN SODIUM 40 MG/0.4 ML SYRINGE SC (09:05)
[2024-10-17] MEDS: CHOLECALCIFEROL (VITAMIN D3) 25 MCG TABLET GT ×2 (09:05→21:51)
--- NOTE | 2024-10-17 11:54 | PC.IP ---
Tuberculin skin test applied LUE on 10/16/24 at 0810. Tolerated well; good wheal appreciated. Will check 10/18/24 for results.
--- NOTE | 2024-10-17 16:20 | PD.SAPROG ---
Progress Note - SubAcute SUBJECTIVE Fever:: none Shortness of Breath:: none Pain:: none OBJECTIVE Most recent vital signs: Last Vital Signs Temp 97.7 F 10/17/24 12:00 Pulse 84 10/17/24 12:33 Resp 18 10/17/24 12:00 BP 100/89 H 10/17/24 12:00 Pulse Ox 98 10/17/24 12:33 O2 Del Method Mechanical Ventilation 10/17/24 06:00 FiO2 30 10/17/24 12:33 Neurological:: awake (more awake, eye tracking, and some ? appropriate response by gesture as in blinking/nod some times.) Speech:: none Answers questions:: sometimes (seems to blink or nod ? sometimes) Respiratory:: lungs clear Cardiovascular: RRR Abdomen: soft Extremities:: deformities (partial contractures) Tracheostomy:: to ventilator Feeding per:: G tube Complaints:: none ASSESSMENT & PLAN Assessment: Pt.with Hypertension/hyperlipidemia/epilepsy, recently treated in acute care for UTI sepsis with and on Rocephin one gram daily iv x 4 days. chronic encephalopathy/ chronic respiratory failure/ Ventilator dependent/Trach and feeding G tube as before. Afebrile. VSS. Plan: Plan: To continue current treatment and full support
[2024-10-17] MEDS: ACETAMINOPHEN 325 MG TABLET 650 MG GT (16:55)
[2024-10-17] MEDS: ATORVASTATIN 20 MG TABLET 40 MG GT (21:49)
[2024-10-18] VITALS (9 sets, daily range): BP systolic 115–140; BP diastolic 71–83; PULSE 77–90; RESP 18–26; TEMP 36.1–36.3; O2SAT 96–99
[2024-10-18] MEDS: DEX/HYPRO/GLY ARTIFICAL TEARS 225 DROP/15 ML BTL BOTH EYES ×3 (05:44→21:40)
[2024-10-18] MEDS: VALPROIC ACID 250 MG/5 ML 500 MG GT ×3 (05:45→21:40)
[2024-10-18] MEDS: ASPIRIN 81 MG TAB.CHEW GT (08:01)
[2024-10-18] MEDS: BUSPIRONE 10 MG TABLET GT ×2 (08:01→20:27)
[2024-10-18] MEDS: ENOXAPARIN SODIUM 40 MG/0.4 ML SYRINGE SC (08:02)
[2024-10-18] MEDS: CHOLECALCIFEROL (VITAMIN D3) 25 MCG TABLET GT ×2 (08:02→20:27)
[2024-10-18] MEDS: CEFTRIAXONE 1 GM VIAL.PORT IVP (09:00)
--- NOTE | 2024-10-18 12:30 | PC.NURSE ---
Resident completed antibiotic therapy. Received last dose this morning. no adverse reactions noted. Will continue to monitor.
--- NOTE | 2024-10-18 14:56 | PC.SS ---
Resident remains on vent with trach in place and GT for medication and nutrition. She does not have POA in place, family aware this service is offered in facility but resident is unable to participate in this services. She is represented by her sister Suzie as she is unable to make needs known. Resident will remain in current care and will continue to have all subacute care needs met by staff. This SSD will continue to make daily contact with resident and will offer support as needed.
--- NOTE | 2024-10-18 15:34 | PC.NURSE ---
Resident currently on bladder Re-training. according to documentation resident started Bladder re-training on 10/16/24 at 0600. will be on for 72 hours the will discontinue [place]son. Will continue to monitor.
[2024-10-18] MEDS: ATORVASTATIN 20 MG TABLET 40 MG GT (20:26)
[2024-10-19 00:43] VITALS: PULSE 91; RESP 32; O2SAT 91
[2024-10-19] MEDS: DEX/HYPRO/GLY ARTIFICAL TEARS 225 DROP/15 ML BTL BOTH EYES ×3 (05:15→21:39)
[2024-10-19] MEDS: VALPROIC ACID 250 MG/5 ML 500 MG GT ×3 (05:15→21:39)
[2024-10-19 06:00] VITALS: BP 108/73; PULSE 80; RESP 26; TEMP 36.1; O2SAT 98
[2024-10-19 07:03] VITALS: PULSE 81; RESP 23; RESP 24; O2SAT 97
[2024-10-19] MEDS: CHOLECALCIFEROL (VITAMIN D3) 25 MCG TABLET GT ×2 (09:07→20:20)
[2024-10-19] MEDS: BUSPIRONE 10 MG TABLET GT ×2 (09:07→20:19)
[2024-10-19] MEDS: ASPIRIN 81 MG TAB.CHEW GT (09:07)
[2024-10-19] MEDS: ENOXAPARIN SODIUM 40 MG/0.4 ML SYRINGE SC (09:08)
[2024-10-19 13:11] VITALS: PULSE 88; RESP 25; O2SAT 99
[2024-10-19 17:32] VITALS: BP 107/63; PULSE 85; RESP 27; TEMP 36.3; O2SAT 98
[2024-10-19 18:52] VITALS: PULSE 85; RESP 32; O2SAT 98
[2024-10-19] MEDS: ATORVASTATIN 20 MG TABLET 40 MG GT (20:19)
[2024-10-20] VITALS (8 sets, daily range): BP systolic 116–144; BP diastolic 59–81; PULSE 78–90; RESP 23–32; TEMP 36–36.4; O2SAT 97–98
[2024-10-20] MEDS: VALPROIC ACID 250 MG/5 ML 500 MG GT ×3 (05:11→21:06)
[2024-10-20] MEDS: DEX/HYPRO/GLY ARTIFICAL TEARS 225 DROP/15 ML BTL BOTH EYES ×3 (05:11→21:06)
[2024-10-20] MEDS: BUSPIRONE 10 MG TABLET GT (09:19)
[2024-10-20] MEDS: ASPIRIN 81 MG TAB.CHEW GT (09:19)
[2024-10-20] MEDS: CHOLECALCIFEROL (VITAMIN D3) 25 MCG TABLET GT ×2 (09:19→21:04)
[2024-10-20] MEDS: ENOXAPARIN SODIUM 40 MG/0.4 ML SYRINGE SC (09:20)
[2024-10-20] MEDS: ATORVASTATIN 20 MG TABLET 40 MG GT (21:04)
[2024-10-21] VITALS (8 sets, daily range): BP systolic 102–137; BP diastolic 69–83; PULSE 57–98; RESP 22–30; TEMP 36.1–36.4; O2SAT 97–100; BMI 31.1
[2024-10-21] MEDS: BUSPIRONE 10 MG TABLET GT ×2 (08:40→21:34)
[2024-10-21] MEDS: CHOLECALCIFEROL (VITAMIN D3) 25 MCG TABLET GT ×2 (08:41→21:36)
[2024-10-21] MEDS: ASPIRIN 81 MG TAB.CHEW GT (08:41)
[2024-10-21] MEDS: ENOXAPARIN SODIUM 40 MG/0.4 ML SYRINGE SC (08:41)
[2024-10-21] MEDS: DEX/HYPRO/GLY ARTIFICAL TEARS 225 DROP/15 ML BTL BOTH EYES ×2 (13:40→21:35)
[2024-10-21] MEDS: VALPROIC ACID 250 MG/5 ML 500 MG GT ×2 (13:40→21:35)
[2024-10-21] MEDS: ACETAMINOPHEN 325 MG TABLET 650 MG GT (21:25)
[2024-10-21] MEDS: ATORVASTATIN 20 MG TABLET 40 MG GT (21:36)
--- NOTE | 2024-10-21 22:56 | PD.SAPROG ---
Progress Note - SubAcute DIAGNOSIS (1) Chronic respiratory failure: Status: Chronic (2) Ventilator dependent: Status: Chronic (3) Tracheostomy dependence: Status: Chronic (4) Urinary tract infection: Status: Acute (5) PEG (percutaneous endoscopic gastrostomy) status: Status: Chronic (6) Essential hypertension: Status: Chronic (7) Seizures: Status: Chronic (8) Chronic anoxic encephalopathy: Status: Chronic SUBJECTIVE Fever:: none Shortness of Breath:: none Pain:: none OBJECTIVE Most recent vital signs: Last Vital Signs Temp 97 F 10/21/24 18:00 Pulse 98 10/21/24 19:57 Resp 30 H 10/21/24 19:57 BP 102/69 10/21/24 18:00 Pulse Ox 98 10/21/24 19:57 O2 Del Method Mechanical Ventilation 10/21/24 06:00 FiO2 35 10/21/24 19:57 Neurological:: awake (more awake, eye tracking, and some ? appropriate response by gesture as in blinking/nod some times.) Speech:: none Answers questions:: sometimes (seems to blink or nod ? sometimes) Respiratory:: lungs clear Cardiovascular: RRR Abdomen: soft Extremities:: deformities (partial contractures) Tracheostomy:: to ventilator Feeding per:: G tube Complaints:: none ASSESSMENT & PLAN Assessment: Pt.with Hypertension/hyperlipidemia/epilepsy, recently treated in acute care for UTI sepsis with and on Rocephin one gram daily iv x 4 days. chronic encephalopathy/ chronic respiratory failure/ Ventilator dependent/Trach and feeding G tube as before. Afebrile. VSS. Plan: Completed antibiotics Plan: To continue current treatment and full support
[2024-10-22] VITALS (9 sets, daily range): BP systolic 90–123; BP diastolic 56–70; PULSE 64–91; RESP 22–31; TEMP 35.9–36.6; O2SAT 97–98
[2024-10-22] MEDS: DEX/HYPRO/GLY ARTIFICAL TEARS 225 DROP/15 ML BTL BOTH EYES ×3 (05:17→21:02)
[2024-10-22] MEDS: VALPROIC ACID 250 MG/5 ML 500 MG GT ×3 (05:17→21:02)
[2024-10-22] MEDS: BUSPIRONE 10 MG TABLET GT ×2 (08:45→21:01)
[2024-10-22] MEDS: CHOLECALCIFEROL (VITAMIN D3) 25 MCG TABLET GT ×2 (08:46→21:04)
[2024-10-22] MEDS: ENOXAPARIN SODIUM 40 MG/0.4 ML SYRINGE SC (08:46)
[2024-10-22] MEDS: ASPIRIN 81 MG TAB.CHEW GT (08:46)
--- NOTE | 2024-10-22 11:37 | PC.NURSE ---
Resident was weighed on a new bed scale her weight is 176.2
[2024-10-22] MEDS: ATORVASTATIN 20 MG TABLET 40 MG GT (21:04)
[2024-10-22] MEDS: ACETAMINOPHEN 325 MG TABLET 650 MG GT (21:05)
[2024-10-23] VITALS (9 sets, daily range): BP systolic 91–114; BP diastolic 57–64; PULSE 65–85; RESP 22–30; TEMP 35.9–36.6; O2SAT 96–98
[2024-10-23] MEDS: VALPROIC ACID 250 MG/5 ML 500 MG GT ×3 (05:09→21:15)
[2024-10-23] MEDS: DEX/HYPRO/GLY ARTIFICAL TEARS 225 DROP/15 ML BTL BOTH EYES ×3 (05:09→21:15)
[2024-10-23] MEDS: BUSPIRONE 10 MG TABLET GT ×2 (08:11→21:15)
[2024-10-23] MEDS: ASPIRIN 81 MG TAB.CHEW GT (08:13)
[2024-10-23] MEDS: ENOXAPARIN SODIUM 40 MG/0.4 ML SYRINGE SC (08:14)
[2024-10-23] MEDS: CHOLECALCIFEROL (VITAMIN D3) 25 MCG TABLET GT ×2 (08:14→21:15)
--- NOTE | 2024-10-23 13:30 | PD.SAPROG ---
Progress Note - SubAcute DIAGNOSIS (1) Chronic respiratory failure: Status: Chronic (2) Ventilator dependent: Status: Chronic (3) Tracheostomy dependence: Status: Chronic (4) Urinary tract infection: Status: Acute (5) PEG (percutaneous endoscopic gastrostomy) status: Status: Chronic (6) Essential hypertension: Status: Chronic (7) Seizures: Status: Chronic (8) Chronic anoxic encephalopathy: Status: Chronic SUBJECTIVE Fever:: none Shortness of Breath:: none Pain:: none OBJECTIVE Most recent vital signs: Last Vital Signs Temp 97.0 F 10/26/24 17:49 Pulse 75 10/26/24 17:49 Resp 26 H 10/26/24 17:49 BP 109/71 10/26/24 17:49 Pulse Ox 98 10/26/24 17:49 O2 Del Method Mechanical Ventilation 10/25/24 17:29 FiO2 35 10/26/24 16:46 Neurological:: awake (more awake, eye tracking, and some ? appropriate response by gesture as in blinking/nod some times.) Speech:: none Answers questions:: sometimes (seems to blink or nod ? sometimes) Respiratory:: lungs clear Cardiovascular: RRR Abdomen: soft Extremities:: deformities (partial contractures) Tracheostomy:: to ventilator Feeding per:: G tube Complaints:: none ASSESSMENT & PLAN Assessment: Pt.with Hypertension/hyperlipidemia/epilepsy, recently treated in acute care for UTI sepsis with and on Rocephin one gram daily iv x 4 days. chronic encephalopathy/ chronic respiratory failure/ Ventilator dependent/Trach and feeding G tube as before. Afebrile. VSS. Plan: Completed antibiotics. Fairly stable Plan: To continue current treatment and full support
[2024-10-23] MEDS: ATORVASTATIN 20 MG TABLET 40 MG GT (21:15)
[2024-10-24] VITALS (8 sets, daily range): BP systolic 107–119; BP diastolic 59–67; PULSE 73–87; RESP 18–32; TEMP 36.1–36.2; O2SAT 94–98
[2024-10-24] MEDS: DEX/HYPRO/GLY ARTIFICAL TEARS 225 DROP/15 ML BTL BOTH EYES ×3 (05:54→21:36)
[2024-10-24] MEDS: VALPROIC ACID 250 MG/5 ML 500 MG GT ×3 (05:54→21:36)
[2024-10-24] MEDS: ASPIRIN 81 MG TAB.CHEW GT (09:04)
[2024-10-24] MEDS: CHOLECALCIFEROL (VITAMIN D3) 25 MCG TABLET GT ×2 (09:05→21:37)
[2024-10-24] MEDS: ENOXAPARIN SODIUM 40 MG/0.4 ML SYRINGE SC (09:05)
[2024-10-24] MEDS: BUSPIRONE 10 MG TABLET GT ×2 (09:17→21:36)
--- NOTE | 2024-10-24 11:15 | PC.NURSE ---
Message sent to Dr. Parada regarding pending reading for EEG and CT head. Doctor called back and reviewed results of studies and current seizure medications. No further orders given at this time. Resident remains stable.
[2024-10-24] MEDS: MAGNESIUM HYDROXIDE 30 ML ORAL SUSP ML GT (16:36)
--- NOTE | 2024-10-24 20:02 | PC.NURSE ---
Dr. Guzman assessed resident at bedside to evaluate her recent EEG and CT scan. No new orders were given. Resident able to nod head for yes and no questions. No new orders given.
[2024-10-24] MEDS: ATORVASTATIN 20 MG TABLET 40 MG GT (21:36)
[2024-10-25] VITALS (8 sets, daily range): BP systolic 96–112; BP diastolic 64–70; PULSE 69–84; RESP 19–36; TEMP 36.1–36.3; O2SAT 97–98
[2024-10-25] MEDS: DEX/HYPRO/GLY ARTIFICAL TEARS 225 DROP/15 ML BTL BOTH EYES ×3 (05:46→21:04)
[2024-10-25] MEDS: VALPROIC ACID 250 MG/5 ML 500 MG GT ×3 (05:49→21:04)
[2024-10-25] MEDS: BUSPIRONE 10 MG TABLET GT ×2 (09:15→21:00)
[2024-10-25] MEDS: ASPIRIN 81 MG TAB.CHEW GT (09:16)
[2024-10-25] MEDS: ENOXAPARIN SODIUM 40 MG/0.4 ML SYRINGE SC (09:16)
[2024-10-25] MEDS: CHOLECALCIFEROL (VITAMIN D3) 25 MCG TABLET GT ×2 (09:16→20:55)
[2024-10-26] VITALS (9 sets, daily range): BP systolic 90–124; BP diastolic 58–71; PULSE 75–89; RESP 18–28; TEMP 36–36.2; O2SAT 97–98
[2024-10-26] MEDS: DEX/HYPRO/GLY ARTIFICAL TEARS 225 DROP/15 ML BTL BOTH EYES ×4 (05:37→22:15)
[2024-10-26] MEDS: VALPROIC ACID 250 MG/5 ML 500 MG GT ×3 (05:37→21:24)
[2024-10-26] MEDS: BUSPIRONE 10 MG TABLET GT ×2 (08:58→20:18)
[2024-10-26] MEDS: ENOXAPARIN SODIUM 40 MG/0.4 ML SYRINGE SC (08:59)
[2024-10-26] MEDS: CHOLECALCIFEROL (VITAMIN D3) 25 MCG TABLET GT ×2 (09:00→20:21)
[2024-10-26] MEDS: ASPIRIN 81 MG TAB.CHEW GT (09:00)
[2024-10-26] MEDS: ATORVASTATIN 20 MG TABLET 40 MG GT (20:21)
[2024-10-26] MEDS: ACETAMINOPHEN 325 MG TABLET 650 MG GT (20:22)
[2024-10-27] VITALS (10 sets, daily range): BP systolic 87–106; BP diastolic 47–72; PULSE 71–100; RESP 20–32; TEMP 36.1–38.8; O2SAT 98–99
[2024-10-27] MEDS: IPRATROPIUM/ALBUTEROL 3 ML AMPUL.NEB INH (03:45)
[2024-10-27] MEDS: VALPROIC ACID 250 MG/5 ML 500 MG GT ×3 (05:08→21:05)
[2024-10-27] MEDS: DEX/HYPRO/GLY ARTIFICAL TEARS 225 DROP/15 ML BTL BOTH EYES ×3 (05:08→21:04)
[2024-10-27] MEDS: ACETAMINOPHEN 325 MG TABLET 650 MG GT (05:22)
--- NOTE | 2024-10-27 05:27 | XR_ITS ---
Examination: AP chest single view Technique one AP portable semiupright chest single view Date and time: October 27, 2024, 0620 hours Comparison October 10, 2024 INDICATIONS: Tachypnea shortness of breath today. FINDINGS: No significant cardiac enlargement Tracheal tube tip 5 cm above Imelda. Mild to moderate vascular congestion. No lobar pneumonia or pulmonary edema. Significant osteopenia IMPRESSION: Mild to moderate vascular congestion. No lobar pneumonia or pulmonary edema.
[2024-10-27 05:57] LABS: Collection Type, Urine Catheter
[2024-10-27 05:58] LABS: Squamous Epithelial Cell,Urine 0 /hpf (0-5)
[2024-10-27 06:05] LABS: Bacteria,Urine Rare; Bilirubin,Urine Negative (Negative); Blood,Urine Trace (Negative); Clarity,Urine Turbid (Clear/Hazy); Color,Urine Yellow (Lt Yel-Yel); Glucose, Urine Negative (Negative); Ketones,Urine Trace (Negative); Leukocyte Esterase,Urine Positive (Negative); Nitrite,Urine Negative (Negative); PH,Urine 8.0 (5.0-7.0); Protein,Urine 1+ (Neg - Trace); RBC,Urine 17 /hpf (0-3); Specific Gravity,Urine 1.021 (1.001-1.035); Urobilinogen,Urine Negative mg/dL (0.0-1.0); WBC,Urine 266 /hpf (0-5)
[2024-10-27 06:06] LABS: Culture Indicated,Urine Yes
--- NOTE | 2024-10-27 06:20 | PC.NURSE ---
At 0430 resident having increased respiratory rate, face was red, warm to touch with rectal temp 101.8. Cooling measures started, at 0530 rectal temp was 101.3, Tylenol was given and temp protocol was initiated. Sputum C/S, Flu, Covid and urine sample obtained and sent to lab, waiting on chest x-ray and lab. At 0620 rectal temp down to 100.6, call light is within reach.
[2024-10-27 06:24] LABS: COVID-19 Antigen (In-House) Negative (Negative); Influenza A Ag Negative; Influenza B Ag Negative
[2024-10-27 07:25] LABS: Basophils # (Auto) 0.1 Thou/mm3 (0.0-0.2); Basophils % (Auto) 0 % (0-2.5); Eosinophils # (Auto) 0.1 Thou/mm3 (0.0-0.5); Eosinophils % (Auto) 1 % (0-10); Hematocrit 27.9 % (36.0-46.0); Hemoglobin 9.0 g/dL (12.0-16.0); Immature Granulocytes Auto 0.20 Thou/mm3 (0.00-0.00); Lymphocytes # (Auto) 2.0 Thou/mm3 (1.0-4.8); Lymphocytes % (Auto) 7 % (10-50); Mean Corpuscular HGB Conc 32.3 g/dl (31.0-37.0); Mean Corpuscular Hemoglobin 30.2 pg (25.0-35.0); Mean Corpuscular Volume 94 fL (80-100); Monocytes # (Auto) 2.0 Thou/mm3 (0.0-0.8); Monocytes % (Auto) 7 % (0-12); Neutrophils # (Auto) 25.3 Thou/mm3 (1.8-7.7); Neutrophils % (Auto) 85 % (37-80); Nucleated Red Blood Cell # 0.00 Thou/mm3 (0.00-0.00); Nucleated Red Blood Cell % 0 /100 WBC (0); Platelet Count 434 Thou/mm3 (140-440); RDW Standard Deviation 58.3 fL (36.4-46.3); Red Blood Count 2.98 Miln/mm3 (4.00-5.20); White Blood Count 29.6 Thou/mm3 (3.6-11.0)
[2024-10-27 07:54] LABS: Procalcitonin 0.10 ng/ml (0.0-0.49)
[2024-10-27] MEDS: BUSPIRONE 10 MG TABLET GT ×2 (09:15→20:08)
[2024-10-27] MEDS: ASPIRIN 81 MG TAB.CHEW GT (09:17)
[2024-10-27] MEDS: ENOXAPARIN SODIUM 40 MG/0.4 ML SYRINGE SC (09:17)
[2024-10-27] MEDS: CHOLECALCIFEROL (VITAMIN D3) 25 MCG TABLET GT ×2 (09:17→20:10)
--- NOTE | 2024-10-27 13:59 | PC.NURSE ---
Addendum entered by Lay Eastman RN 10/27/24 19:17: Late entry 10/27/24@1550: Rocephin 1 gm IV first dose start. Pt last temp 98.8 and appears well. Addendum entered by Lay Eastman RN 10/27/24 14:14: 10/27/24@1200: Pt appears to be feeling better, doesn't appear flushed anymore, is smiling and alert. Rectal temp 99.4. Addendum entered by Lay Eastman RN 10/27/24 14:11: Late entry for 10/27/24@1005: 20G peripheral IV place to left top of hand and tolerated well. Order faxed to [facility] and pending delivery. Pt resting well. Original Note: Late Entry for 10/27/24@0830: Dr. Silverio called to notify of recent WBC and urine result collected by NOC shift as fever protocol. CBC showed a result of WBC 29.6 and in urine WBC 266. Per result, ordered Rocephin 1 gm IV x5 days, only while cultures come in. Pt is still feverish at 100.0 rectal temp. Pt continues on cooling measure. Will continue to monitor condition for any acute changes.
[2024-10-27] MEDS: ATORVASTATIN 20 MG TABLET 40 MG GT (20:09)
[2024-10-28] VITALS (8 sets, daily range): BP systolic 98–123; BP diastolic 60–70; PULSE 70–85; RESP 18–32; TEMP 36.1–36.4; O2SAT 95–100
[2024-10-28] MEDS: VALPROIC ACID 250 MG/5 ML 500 MG GT ×3 (05:34→21:17)
[2024-10-28] MEDS: DEX/HYPRO/GLY ARTIFICAL TEARS 225 DROP/15 ML BTL BOTH EYES ×3 (05:34→21:17)
[2024-10-28] MEDS: ENOXAPARIN SODIUM 40 MG/0.4 ML SYRINGE SC (08:46)
[2024-10-28] MEDS: ASPIRIN 81 MG TAB.CHEW GT (08:47)
[2024-10-28] MEDS: BUSPIRONE 10 MG TABLET GT ×2 (08:47→21:18)
[2024-10-28] MEDS: CHOLECALCIFEROL (VITAMIN D3) 25 MCG TABLET GT ×2 (08:48→21:17)
[2024-10-28] MEDS: CEFTRIAXONE 1 GM VIAL.PORT 4 GM IVP (09:00)
--- NOTE | 2024-10-28 16:40 | PC.NURSE ---
Resident remains on abt therapy for unknown fever. Awaiting for all cultures to be completed. UA culture completed.>100,00 colonies. MD notified. No further orders given. No A/E to medication noted at this time. Will continue to monitor.
--- NOTE | 2024-10-28 19:39 | PD.SAPROG ---
Progress Note - SubAcute DIAGNOSIS (1) Chronic respiratory failure: Status: Chronic (2) Ventilator dependent: Status: Chronic (3) Tracheostomy dependence: Status: Chronic (4) Urinary tract infection: Status: Acute (5) PEG (percutaneous endoscopic gastrostomy) status: Status: Chronic (6) Essential hypertension: Status: Chronic (7) Seizures: Status: Chronic (8) Chronic anoxic encephalopathy: Status: Chronic SUBJECTIVE Fever:: none Shortness of Breath:: none Pain:: none OBJECTIVE Most recent vital signs: Last Vital Signs Temp 97.2 F 10/28/24 17:37 Pulse 84 10/28/24 17:37 Resp 28 H 10/28/24 17:37 BP 103/63 10/28/24 17:37 Pulse Ox 100 10/28/24 17:37 O2 Del Method Mechanical Ventilation 10/28/24 06:00 FiO2 35 10/28/24 17:00 Neurological:: awake (more awake, eye tracking, and some ? appropriate response by gesture as in blinking/nod some times.) Speech:: none Answers questions:: sometimes (seems to blink or nod ? sometimes) Respiratory:: lungs clear Cardiovascular: RRR Abdomen: soft Extremities:: deformities (partial contractures) Tracheostomy:: to ventilator Feeding per:: G tube Complaints:: none ASSESSMENT & PLAN Assessment: Pt.with Hypertension/hyperlipidemia/epilepsy, recently treated in acute care for UTI sepsis with and on Rocephin one gram daily iv x 4 days. chronic encephalopathy/ chronic respiratory failure/ Ventilator dependent/Trach and feeding G tube as before. Afebrile. VSS. Plan: Completed antibiotics. Fairly stable Plan: To continue current treatment and full support
[2024-10-28] MEDS: ATORVASTATIN 20 MG TABLET 40 MG GT (21:17)
[2024-10-29] VITALS (8 sets, daily range): BP systolic 92–134; BP diastolic 51–69; PULSE 74–85; RESP 18–37; TEMP 36.1–36.4; O2SAT 92–99
[2024-10-29] MEDS: ACETAMINOPHEN 325 MG TABLET 650 MG GT ×3 (00:11→21:11)
[2024-10-29] MEDS: DEX/HYPRO/GLY ARTIFICAL TEARS 225 DROP/15 ML BTL BOTH EYES ×3 (05:27→21:08)
[2024-10-29] MEDS: VALPROIC ACID 250 MG/5 ML 500 MG GT ×3 (05:27→21:11)
[2024-10-29] MEDS: CEFTRIAXONE 1 GM VIAL.PORT IVP (09:03)
[2024-10-29] MEDS: BUSPIRONE 10 MG TABLET GT ×2 (09:56→21:08)
[2024-10-29] MEDS: ASPIRIN 81 MG TAB.CHEW GT (09:57)
[2024-10-29] MEDS: CHOLECALCIFEROL (VITAMIN D3) 25 MCG TABLET GT ×2 (09:57→21:09)
[2024-10-29] MEDS: ENOXAPARIN SODIUM 40 MG/0.4 ML SYRINGE SC (09:58)
[2024-10-29] MEDS: guaiFENesin Liq 100 MG/5 ML LIQUID 300 MG GT (14:32)
[2024-10-29 15:23] LABS: Basophils # (Auto) 0.1 Thou/mm3 (0.0-0.2); Basophils % (Auto) 0 % (0-2.5); Eosinophils # (Auto) 0.5 Thou/mm3 (0.0-0.5); Eosinophils % (Auto) 3 % (0-10); Hematocrit 26.5 % (36.0-46.0); Immature Granulocytes Auto 0.28 Thou/mm3 (0.00-0.00); Lymphocytes # (Auto) 2.7 Thou/mm3 (1.0-4.8); Lymphocytes % (Auto) 14 % (10-50); Mean Corpuscular HGB Conc 32.1 g/dl (31.0-37.0); Mean Corpuscular Hemoglobin 30.1 pg (25.0-35.0); Mean Corpuscular Volume 94 fL (80-100); Monocytes # (Auto) 2.3 Thou/mm3 (0.0-0.8); Monocytes % (Auto) 12 % (0-12); Neutrophils # (Auto) 12.8 Thou/mm3 (1.8-7.7); Neutrophils % (Auto) 69 % (37-80); Nucleated Red Blood Cell # 0.02 Thou/mm3 (0.00-0.00); Nucleated Red Blood Cell % 0 /100 WBC (0); Platelet Count 344 Thou/mm3 (140-440); RDW Standard Deviation 59.0 fL (36.4-46.3); Red Blood Count 2.82 Miln/mm3 (4.00-5.20); White Blood Count 18.6 Thou/mm3 (3.6-11.0)
[2024-10-29 15:25] LABS: Hemoglobin 8.5 g/dL (12.0-16.0)
--- NOTE | 2024-10-29 17:00 | PC.NURSE ---
CBC result was drawn today to follow up on elevated WBC noted to be 18.6 at this time. Resident remains on Rocephin 1 gm IV, no adverse reaction noted, afebrile. Urine c & s result, possible contamination. Dr Silverio aware, no new orders made at this time.
--- NOTE | 2024-10-29 18:43 | PC.NURSE ---
Continues to receive IV ABX Rocephine for fever of unknown source. No adverse reactions noticed. Vital signs within parameters. Call light in reach
[2024-10-29] MEDS: ATORVASTATIN 20 MG TABLET 40 MG GT (21:09)
[2024-10-30] VITALS (7 sets, daily range): BP systolic 90–112; BP diastolic 50–68; PULSE 70–84; RESP 18–31; TEMP 36.1–36.2; O2SAT 97–98
[2024-10-30] MEDS: VALPROIC ACID 250 MG/5 ML 500 MG GT ×3 (05:26→21:20)
[2024-10-30] MEDS: DEX/HYPRO/GLY ARTIFICAL TEARS 225 DROP/15 ML BTL BOTH EYES ×3 (05:26→21:20)
[2024-10-30] MEDS: CEFTRIAXONE 1 GM VIAL.PORT IVP (08:59)
[2024-10-30] MEDS: BUSPIRONE 10 MG TABLET GT ×2 (09:57→20:47)
[2024-10-30] MEDS: CHOLECALCIFEROL (VITAMIN D3) 25 MCG TABLET GT ×2 (09:58→20:48)
[2024-10-30] MEDS: ASPIRIN 81 MG TAB.CHEW GT (09:58)
[2024-10-30] MEDS: ENOXAPARIN SODIUM 40 MG/0.4 ML SYRINGE SC (09:58)
[2024-10-30] MEDS: ATORVASTATIN 20 MG TABLET 40 MG GT (20:48)
[2024-10-30] MEDS: ACETAMINOPHEN 325 MG TABLET 650 MG GT (20:48)
[2024-10-31] VITALS (9 sets, daily range): BP systolic 98–127; BP diastolic 58–71; PULSE 74–86; RESP 18–38; TEMP 36.1–36.4; O2SAT 96–98
[2024-10-31] MEDS: DEX/HYPRO/GLY ARTIFICAL TEARS 225 DROP/15 ML BTL BOTH EYES ×3 (05:56→21:09)
[2024-10-31] MEDS: VALPROIC ACID 250 MG/5 ML 500 MG GT ×3 (05:57→21:09)
[2024-10-31] MEDS: CEFTRIAXONE 1 GM VIAL.PORT IVP (09:00)
[2024-10-31] MEDS: ASPIRIN 81 MG TAB.CHEW GT (09:21)
[2024-10-31] MEDS: CHOLECALCIFEROL (VITAMIN D3) 25 MCG TABLET GT ×2 (09:22→20:09)
[2024-10-31] MEDS: ENOXAPARIN SODIUM 40 MG/0.4 ML SYRINGE SC (09:22)
[2024-10-31] MEDS: BUSPIRONE 10 MG TABLET GT ×2 (09:45→20:09)
[2024-10-31] MEDS: ATORVASTATIN 20 MG TABLET 40 MG GT (20:07)
[2024-10-31] MEDS: ACETAMINOPHEN 325 MG TABLET 650 MG GT (20:11)
[2024-11-01] VITALS (9 sets, daily range): BP systolic 93–107; BP diastolic 62–70; PULSE 73–80; RESP 18–37; TEMP 36.3–36.4; O2SAT 93–99; BMI 31.4
[2024-11-01] MEDS: DEX/HYPRO/GLY ARTIFICAL TEARS 225 DROP/15 ML BTL BOTH EYES ×3 (05:41→21:16)
[2024-11-01] MEDS: VALPROIC ACID 250 MG/5 ML 500 MG GT ×3 (05:42→21:16)
[2024-11-01] MEDS: BUSPIRONE 10 MG TABLET GT ×2 (09:45→21:14)
[2024-11-01] MEDS: ASPIRIN 81 MG TAB.CHEW GT (09:47)
[2024-11-01] MEDS: CHOLECALCIFEROL (VITAMIN D3) 25 MCG TABLET GT ×2 (09:47→21:15)
[2024-11-01] MEDS: ENOXAPARIN SODIUM 40 MG/0.4 ML SYRINGE SC (09:48)
--- NOTE | 2024-11-01 14:19 | PC.SS ---
Resident remains on ventilator with trach in place and GT for medication and nutrition. Resident is represented by her sister, she is unable to make decisions for self, she at times has speech. Resident does not have POA in place, RP aware this service is provided in facility, resident is unable to participate in the process. Resident will remain in current care and will continue to have all subacute care needs met by staff. This SSD will make daily contact with resident and will monitor for changes in mood and behavior.
--- NOTE | 2024-11-01 18:08 | PD.SAPROG ---
Progress Note - SubAcute DIAGNOSIS (1) Chronic respiratory failure: Status: Chronic (2) Ventilator dependent: Status: Chronic (3) Tracheostomy dependence: Status: Chronic (4) Urinary tract infection: Status: Acute (5) PEG (percutaneous endoscopic gastrostomy) status: Status: Chronic (6) Essential hypertension: Status: Chronic (7) Seizures: Status: Chronic (8) Chronic anoxic encephalopathy: Status: Chronic SUBJECTIVE Fever:: none Shortness of Breath:: none Pain:: none OBJECTIVE Most recent vital signs: Last Vital Signs Temp 97.3 F 11/01/24 16:58 Pulse 80 11/01/24 16:58 Resp 30 H 11/01/24 16:58 BP 107/70 11/01/24 16:58 Pulse Ox 98 11/01/24 16:58 O2 Del Method Mechanical Ventilation 11/01/24 16:58 FiO2 35 11/01/24 13:07 Neurological:: awake (more awake, eye tracking, and some ? appropriate response by gesture as in blinking/nod some times.) Speech:: none Answers questions:: sometimes (seems to blink or nod ? sometimes) Respiratory:: lungs clear Cardiovascular: RRR Abdomen: soft Extremities:: deformities (partial contractures) Tracheostomy:: to ventilator Feeding per:: G tube Complaints:: none ASSESSMENT & PLAN Assessment: Pt.with Hypertension/hyperlipidemia/epilepsy, recently treated in acute care for UTI sepsis with and on Rocephin one gram daily iv x 4 days. chronic encephalopathy/ chronic respiratory failure/ Ventilator dependent/Trach and feeding G tube as before. Afebrile. VSS. Plan: Completed antibiotics. Fairly stable Plan: To continue current treatment and full support
[2024-11-01] MEDS: ATORVASTATIN 20 MG TABLET 40 MG GT (21:15)
[2024-11-02] VITALS (8 sets, daily range): BP systolic 101–122; BP diastolic 56–69; PULSE 72–83; RESP 19–36; TEMP 35.9–36.1; O2SAT 95–98
[2024-11-02] MEDS: DEX/HYPRO/GLY ARTIFICAL TEARS 225 DROP/15 ML BTL BOTH EYES ×2 (05:19→13:40)
[2024-11-02] MEDS: VALPROIC ACID 250 MG/5 ML 500 MG GT ×3 (05:19→21:27)
[2024-11-02] MEDS: BUSPIRONE 10 MG TABLET GT ×2 (08:47→21:24)
[2024-11-02] MEDS: ENOXAPARIN SODIUM 40 MG/0.4 ML SYRINGE SC (08:48)
[2024-11-02] MEDS: CHOLECALCIFEROL (VITAMIN D3) 25 MCG TABLET GT ×2 (08:49→21:26)
[2024-11-02] MEDS: ASPIRIN 81 MG TAB.CHEW GT (08:49)
[2024-11-02] MEDS: ATORVASTATIN 20 MG TABLET 40 MG GT (21:26)
[2024-11-03] VITALS (9 sets, daily range): BP systolic 93–117; BP diastolic 56–65; PULSE 68–85; RESP 18–37; TEMP 35.9–36.4; O2SAT 96–98
[2024-11-03] MEDS: VALPROIC ACID 250 MG/5 ML 500 MG GT ×3 (05:16→21:29)
[2024-11-03] MEDS: DEX/HYPRO/GLY ARTIFICAL TEARS 225 DROP/15 ML BTL BOTH EYES ×3 (05:16→21:29)
[2024-11-03] MEDS: CHOLECALCIFEROL (VITAMIN D3) 25 MCG TABLET GT ×2 (09:16→20:22)
[2024-11-03] MEDS: BUSPIRONE 10 MG TABLET GT ×2 (09:16→20:21)
[2024-11-03] MEDS: ASPIRIN 81 MG TAB.CHEW GT (09:16)
[2024-11-03] MEDS: ENOXAPARIN SODIUM 40 MG/0.4 ML SYRINGE SC (09:18)
[2024-11-03] MEDS: guaiFENesin Liq 100 MG/5 ML LIQUID 300 MG GT (16:00)
[2024-11-03] MEDS: ACETAMINOPHEN 325 MG TABLET 650 MG GT (16:00)
[2024-11-03] MEDS: ATORVASTATIN 20 MG TABLET 40 MG GT (20:22)
[2024-11-04] VITALS: BP 110/66; PULSE 73; RESP 27; TEMP 36.1
[2024-11-04] MEDS: ACETAMINOPHEN 325 MG TABLET 650 MG GT ×2 (00:16→20:32)
[2024-11-04 00:43] VITALS: PULSE 68; RESP 26; O2SAT 99
[2024-11-04] MEDS: DEX/HYPRO/GLY ARTIFICAL TEARS 225 DROP/15 ML BTL BOTH EYES ×2 (05:54→14:20)
[2024-11-04 06:00] VITALS: BP 121/71; PULSE 72; RESP 26; TEMP 36.1
[2024-11-04 06:48] VITALS: PULSE 81; RESP 20; O2SAT 98
[2024-11-04] MEDS: ENOXAPARIN SODIUM 40 MG/0.4 ML SYRINGE SC (09:12)
[2024-11-04] MEDS: ASPIRIN 81 MG TAB.CHEW GT (09:16)
[2024-11-04] MEDS: CHOLECALCIFEROL (VITAMIN D3) 25 MCG TABLET GT ×2 (09:16→20:34)
[2024-11-04] MEDS: BUSPIRONE 10 MG TABLET GT ×2 (09:16→20:34)
[2024-11-04 12:32] VITALS: PULSE 71; RESP 24; O2SAT 98
[2024-11-04] MEDS: VALPROIC ACID 250 MG/5 ML 500 MG GT ×2 (14:20→21:27)
[2024-11-04 16:23] VITALS: BMI 31.8
[2024-11-04 20:20] VITALS: PULSE 80; RESP 31; RESP 36; O2SAT 98
[2024-11-04] MEDS: ATORVASTATIN 20 MG TABLET 40 MG GT (20:34)
[2024-11-05] VITALS (9 sets, daily range): BP systolic 92–97; BP diastolic 56–66; PULSE 63–86; RESP 18–28; TEMP 35.9–36.4; O2SAT 95–99
[2024-11-05] MEDS: VALPROIC ACID 250 MG/5 ML 500 MG GT ×3 (05:38→21:28)
[2024-11-05] MEDS: DEX/HYPRO/GLY ARTIFICAL TEARS 225 DROP/15 ML BTL BOTH EYES ×3 (05:38→21:28)
[2024-11-05] MEDS: CHOLECALCIFEROL (VITAMIN D3) 25 MCG TABLET GT ×2 (08:57→21:29)
[2024-11-05] MEDS: BUSPIRONE 10 MG TABLET GT ×2 (08:57→21:28)
[2024-11-05] MEDS: ENOXAPARIN SODIUM 40 MG/0.4 ML SYRINGE SC (08:57)
[2024-11-05] MEDS: ASPIRIN 81 MG TAB.CHEW GT (08:57)
--- NOTE | 2024-11-05 21:06 | PD.SAPROG ---
Progress Note - SubAcute DIAGNOSIS (1) Chronic respiratory failure: Status: Chronic (2) Ventilator dependent: Status: Chronic (3) Tracheostomy dependence: Status: Chronic (4) Urinary tract infection: Status: Acute (5) PEG (percutaneous endoscopic gastrostomy) status: Status: Chronic (6) Essential hypertension: Status: Chronic (7) Seizures: Status: Chronic (8) Chronic anoxic encephalopathy: Status: Chronic SUBJECTIVE Fever:: none Shortness of Breath:: none Pain:: none OBJECTIVE Most recent vital signs: Last Vital Signs Temp 97.5 F 11/05/24 17:34 Pulse 77 11/05/24 17:34 Resp 28 H 11/05/24 17:34 BP 96/62 11/05/24 17:34 Pulse Ox 98 11/05/24 17:34 O2 Del Method Mechanical Ventilation 11/03/24 18:00 FiO2 35 11/05/24 14:45 Neurological:: awake (more awake, eye tracking, and some ? appropriate response by gesture as in blinking/nod some times.) Speech:: none Answers questions:: sometimes (seems to blink or nod ? sometimes) Respiratory:: lungs clear Cardiovascular: RRR Abdomen: soft Extremities:: deformities (partial contractures) Tracheostomy:: to ventilator Feeding per:: G tube Complaints:: none ASSESSMENT & PLAN Assessment: Pt.with Hypertension/hyperlipidemia/epilepsy, recently treated in acute care for UTI sepsis with and on Rocephin one gram daily iv x 4 days. chronic encephalopathy/ chronic respiratory failure/ Ventilator dependent/Trach and feeding G tube as before. Afebrile. VSS. Plan: Completed antibiotics. Fairly stable VSS Plan: To continue current treatment and full support
[2024-11-05] MEDS: ATORVASTATIN 20 MG TABLET 40 MG GT (21:28)
[2024-11-06] VITALS (8 sets, daily range): BP systolic 95–115; BP diastolic 55–69; PULSE 69–85; RESP 18–34; TEMP 35.9–36.4; O2SAT 95–99
[2024-11-06] MEDS: VALPROIC ACID 250 MG/5 ML 500 MG GT ×3 (06:00→21:06)
[2024-11-06] MEDS: DEX/HYPRO/GLY ARTIFICAL TEARS 225 DROP/15 ML BTL BOTH EYES ×3 (06:00→21:06)
[2024-11-06] MEDS: ASPIRIN 81 MG TAB.CHEW GT (08:01)
[2024-11-06] MEDS: CHOLECALCIFEROL (VITAMIN D3) 25 MCG TABLET GT ×2 (08:01→20:56)
[2024-11-06] MEDS: BUSPIRONE 10 MG TABLET GT ×2 (08:01→20:55)
[2024-11-06] MEDS: ENOXAPARIN SODIUM 40 MG/0.4 ML SYRINGE SC (08:01)
[2024-11-06] MEDS: ACETAMINOPHEN 325 MG TABLET 650 MG GT (20:53)
[2024-11-06] MEDS: ATORVASTATIN 20 MG TABLET 40 MG GT (20:55)
[2024-11-07] VITALS (8 sets, daily range): BP systolic 100–111; BP diastolic 57–61; PULSE 68–78; RESP 18–30; TEMP 36–36.2; O2SAT 96–99
[2024-11-07] MEDS: DEX/HYPRO/GLY ARTIFICAL TEARS 225 DROP/15 ML BTL BOTH EYES ×3 (06:45→21:16)
[2024-11-07] MEDS: VALPROIC ACID 250 MG/5 ML 500 MG GT ×3 (06:45→21:16)
[2024-11-07] MEDS: BUSPIRONE 10 MG TABLET GT ×2 (09:06→20:23)
[2024-11-07] MEDS: CHOLECALCIFEROL (VITAMIN D3) 25 MCG TABLET GT ×2 (09:07→20:24)
[2024-11-07] MEDS: ASPIRIN 81 MG TAB.CHEW GT (09:07)
[2024-11-07] MEDS: ENOXAPARIN SODIUM 40 MG/0.4 ML SYRINGE SC (09:08)
[2024-11-07] MEDS: ATORVASTATIN 20 MG TABLET 40 MG GT (20:24)
[2024-11-07] MEDS: ACETAMINOPHEN 325 MG TABLET 650 MG GT (20:25)
[2024-11-08] VITALS (9 sets, daily range): BP systolic 99–106; BP diastolic 56–66; PULSE 71–80; RESP 18–28; TEMP 36.4; O2SAT 94–100
[2024-11-08] MEDS: VALPROIC ACID 250 MG/5 ML 500 MG GT ×3 (05:03→21:06)
[2024-11-08] MEDS: DEX/HYPRO/GLY ARTIFICAL TEARS 225 DROP/15 ML BTL BOTH EYES ×3 (05:03→21:07)
[2024-11-08] MEDS: BUSPIRONE 10 MG TABLET GT ×2 (09:20→21:07)
[2024-11-08] MEDS: CHOLECALCIFEROL (VITAMIN D3) 25 MCG TABLET GT ×2 (09:21→21:08)
[2024-11-08] MEDS: ASPIRIN 81 MG TAB.CHEW GT (09:21)
[2024-11-08] MEDS: ENOXAPARIN SODIUM 40 MG/0.4 ML SYRINGE SC (09:22)
--- NOTE | 2024-11-08 16:23 | PC.SS ---
Resident remains on vent with trach in place and GT for medication and nutrition. She is alert and oriented with very limited speech, unable to make needs known, her sister Suzie is her education courses sales representative. She does not have POA in place and unable to participate in this process. Resident will remain in current care as she has no changes in care or condition, she will continue to have all subacute care needs met by staff. This SSD will continue to make daily contact with resident and will monitor for changes in mood and behavior.
[2024-11-08] MEDS: ATORVASTATIN 20 MG TABLET 40 MG GT (21:08)
[2024-11-08] MEDS: ACETAMINOPHEN 325 MG TABLET 650 MG GT (21:08)
[2024-11-09] VITALS (8 sets, daily range): BP systolic 100–105; BP diastolic 54–63; PULSE 66–77; RESP 18–33; TEMP 35.9–36.3; O2SAT 95–99
[2024-11-09] MEDS: VALPROIC ACID 250 MG/5 ML 500 MG GT ×3 (05:41→21:13)
[2024-11-09] MEDS: DEX/HYPRO/GLY ARTIFICAL TEARS 225 DROP/15 ML BTL BOTH EYES ×3 (05:42→21:15)
[2024-11-09] MEDS: ENOXAPARIN SODIUM 40 MG/0.4 ML SYRINGE SC (08:28)
[2024-11-09] MEDS: ASPIRIN 81 MG TAB.CHEW GT (08:29)
[2024-11-09] MEDS: BUSPIRONE 10 MG TABLET GT ×2 (08:29→21:15)
[2024-11-09] MEDS: CHOLECALCIFEROL (VITAMIN D3) 25 MCG TABLET GT ×2 (08:30→21:16)
[2024-11-09] MEDS: ATORVASTATIN 20 MG TABLET 40 MG GT (21:15)
--- NOTE | 2024-11-09 21:39 | PD.SAPROG ---
Progress Note - SubAcute DIAGNOSIS (1) Chronic respiratory failure: Status: Chronic (2) Ventilator dependent: Status: Chronic (3) Tracheostomy dependence: Status: Chronic (4) Urinary tract infection: Status: Acute (5) PEG (percutaneous endoscopic gastrostomy) status: Status: Chronic (6) Essential hypertension: Status: Chronic (7) Seizures: Status: Chronic (8) Chronic anoxic encephalopathy: Status: Chronic SUBJECTIVE Fever:: none Shortness of Breath:: none Pain:: none OBJECTIVE Most recent vital signs: Last Vital Signs Temp 97.3 F 11/09/24 17:13 Pulse 67 11/09/24 19:08 Resp 25 H 11/09/24 19:08 BP 100/54 L 11/09/24 17:13 Pulse Ox 97 11/09/24 19:08 O2 Del Method Mechanical Ventilation 11/08/24 17:39 FiO2 35 11/09/24 19:08 Neurological:: awake (more awake, eye tracking, and some ? appropriate response by gesture as in blinking/nod some times.) Speech:: none Answers questions:: sometimes (seems to blink or nod ? sometimes) Respiratory:: lungs clear Cardiovascular: RRR Abdomen: soft Extremities:: deformities (partial contractures) Tracheostomy:: to ventilator Feeding per:: G tube Complaints:: none ASSESSMENT & PLAN Assessment: Pt.with Hypertension/hyperlipidemia/epilepsy, recently treated in acute care for UTI sepsis with and on Rocephin one gram daily iv x 4 days. chronic encephalopathy/ chronic respiratory failure/ Ventilator dependent/Trach and feeding G tube as before. Afebrile. VSS. Plan: Completed antibiotics. Fairly stable VSS. No new issues Plan: To continue current treatment and full support
[2024-11-10] VITALS: BP 117/59; PULSE 74; RESP 30; TEMP 36.5
[2024-11-10 00:15] VITALS: PULSE 75; RESP 28; O2SAT 98
[2024-11-10] MEDS: IPRATROPIUM/ALBUTEROL 3 ML AMPUL.NEB INH (01:02)
[2024-11-10 01:03] VITALS: PULSE 100; RESP 32; O2SAT 100
[2024-11-10] MEDS: ACETAMINOPHEN 325 MG TABLET 650 MG GT (01:13)
--- NOTE | 2024-11-10 03:55 | PC.NURSE ---
Resident's vent was alarming, staff in room noted that resident was shaky, increased RR in the 40s, HR 110, unable to get oxygen saturation due to shakiness, pupils reactive to light, appropriate responses when asked questions. Notified RT who gave PRN breathing treatment, placed continuous pulse ox on toe with reading of 97%, BP 111/71, temporal temp of 97.3, denies pain, mouthed don't feel good , Tylenol given for increased HR. Rechecked resident after 30 minutes, RR still elevated in 30s on mechanical ventilator, HR 133, BP 109/65, O2 saturation 98%. Resident felt warm to touch, rectal temp: 104.0, cooling measures initiated, notified MD with new order to send to ER for further evaluation. Called ER charge nurse, stated he would call back with bed availability. Resident sent to ER at [phone] via bed to room 1 accompanied by RT, BEAUTY SPECIALIST and WHITTLING ROOM OPERATOR.
== END 2024-11-18 00:02 | disposition admitted as inpatient to this hospital (09) | DRG 207 ==
PROVIDERS: Admitting Provider Specialist; PCP Specialist; Visit Provider Specialist
DX: J96.10 Chronic respiratory failure, unspecified whether with hypoxia or hypercapnia (principal); N39.0 Urinary tract infection, site not specified; G93.1 Anoxic brain damage, not elsewhere classified; Z99.11 Dependence on respirator [ventilator] status; G40.802 Other epilepsy, not intractable, without status epilepticus; G93.49 Other encephalopathy; I10 Essential (primary) hypertension; Z93.0 Tracheostomy status; Z93.1 Gastrostomy status
CPT/HCPCS: 36415; 71045; 81001; 84145; 85025; 87040; 87077; 87086; 87186; 87205; 87502; 87811; 94002; 94003; 94004; 94640; J0696

== ENCOUNTER 2024-11-10 03:56 | Inpatient (IN) | payer MEDICARE, MEDICAID, SELFPAY ==
[2024-11-10] VITALS (16 sets, daily range): BP systolic 97–144; BP diastolic 48–81; PULSE 58–116; RESP 22–34; TEMP 36.1–39.2; O2SAT 94–99
--- NOTE | 2024-11-10 04:18 | EDNOTE_ITS ---
ED Fever RME/HPI General Chief Complaint: Fever Stated Complaint: FEVER Time Seen by Provider: 11/10/24 04:33 Arrival date/time: 11/10/24 03:56 RME / HPI RME / HPI Narrative: Refer to MDM. Related Data Home Medications ?Medication ?Instructions ?Recorded ?Confirmed Gvoke 1mg/0.2 Ml 1 mg IM Q15MIN PRN Hypocalce everett 10/14/24 10/10/24 Previous Rx's ?Medication ?Instructions ?Recorded acetaminophen 325 mg tablet 650 mg (2 x 325 mg) G-tube Q4HR 10/14/24 PRN FEVER > 101 30 days acetaminophen 325 mg tablet 650 mg (2 x 325 mg) G-tube Q6HR 10/14/24 PRN Pain Scale 1-3 (Mild 30 days artificial 2 drp Both eyes Q8HR 30 days 10/14/24 tears([id number]) 0.1 %-0.3 %-0.2 % eye drops (GenTeal Tears Moderate) atorvastatin 20 mg tablet 40 mg (2 x 20 mg) G-tube HS 30 10/14/24 days #60 tabs bisacodyl 10 mg rectal suppository 10 mg ND PRN PRN No BM Per Bowel 10/14/24 (Dulcolax (bisacodyl)) Management Protocol 30 days bisacodyl 10 mg rectal suppository 10 mg ND PRN PRN No BM Per Bowel 10/14/24 (Dulcolax (bisacodyl)) Management Protocol 365 days #1 ea buspirone 10 mg tablet 10 mg G-tube BID depression 30 10/14/24 days #30 tabs ceftriaxone 1 gram/50 mL in 1 g (50 mL) IV QDAY 4 days #24 ea 10/14/24 dextrose (iso-osmot) intravenous piggyback cholecalciferol (vitamin D3) 25 25 mcg G-tube BID 30 d ays #30 tabs 10/14/24 mcg (1,000 unit) tablet glucagon 1 mg/0.2 mL subcutaneous 1 mg (0.2 mL) IM Q15 MIN PRN 10/14/24 solution (Gvoke) Hypoglycemia 30 days guaifenesin 100 mg/5 mL oral 300 mg (15 mL) G-tube Q6H R PRN 10/14/24 liquid (Taylor-Tussin) Cough 30 days insulin lispro 100 unit/mL See Protocol SCi 06,18 30 d ays 10/14/24 subcutaneous pen ipratropium 0.5 mg-albuterol 3 mg 3 ml INH Q2HR PRN Wh eezing 30 days 10/14/24 (2.5 mg base)/3 mL nebulization soln levetiracetam 100 mg/mL oral 1,000 mg (10 mL) G-tube B ID 30 10/14/24 solution days #300 mL magnesium hydroxide 400 mg/5 mL 30 ml G-tube PRN PRN C onstipation 10/14/24 oral suspension (Milk of Magnesia) 30 days magnesium hydroxide 400 mg/5 mL 30 ml G-tube PRN PRN C onstipation 10/14/24 oral suspension (Milk of Magnesia) 365 days #30 mL polyethylene glycol 3350 17 gram 17 g G-tube PRN PRN N o BM Per 10/14/24 oral powder packet Bowel Management Protocol 30 days polyethylene glycol 3350 17 gram 17 g G-tube PRN PRN N o BM Per 10/14/24 oral powder packet Bowel Management Protocol 36 5 days #1 ea sodium phosphates 19 gram-7 133 ml ND PRN PRN No BM Pe r Bowel 10/14/24 gram/118 mL enema (Fleet Enema) Management Protocol 30 days sodium phosphates 19 gram-7 133 ml ND PRN PRN No BM Pe r Bowel 10/14/24 gram/118 mL enema (Fleet Enema) Management Protocol 36 5 days #133 mL valproic acid (as sodium salt) 250 500 mg (10 mL) G-tu be TID 30 days 10/14/24 mg/5 mL oral solution #300 mL aspirin 81 mg chewable tablet 81 mg G-tube QDAY 30 day s #30 tabs 10/15/24 carbamide peroxide 6.5 % ear drops 5 drp otic (ear) Q6 1D 30 days #15 10/15/24 (Ear Wax Removal Drops) mL carbamide peroxide 6.5 % ear drops 5 drp otic (ear) Q6 1D 30 days #15 10/15/24 (Ear Wax Removal Drops) mL enoxaparin 40 mg/0.4 mL 40 mg (0.4 mL) SCi QDAY 90 d ays 10/15/24 subcutaneous syringe #36 mL carbamide peroxide 6.5 % ear drops 5 drp otic (ear) Q6 1D 30 days #15 10/16/24 (Ear Wax Removal Drops) mL carbamide peroxide 6.5 % ear drops 5 drp otic (ear) Q6 1D 30 days #15 10/16/24 (Ear Wax Removal Drops) mL carbamide peroxide 6.5 % ear drops 5 drp otic (ear) Q6 1D 30 days #15 10/24/24 (Ear Wax Removal Drops) mL carbamide peroxide 6.5 % ear drops 5 drp otic (ear) Q6 1D 30 days #15 10/24/24 (Ear Wax Removal Drops) mL carbamide peroxide 6.5 % ear drops 5 drp otic (ear) Q6 1D 30 days #15 10/24/24 (Ear Wax Removal Drops) mL carbamide peroxide 6.5 % ear drops 5 drp otic (ear) Q6 1D 30 days #15 10/24/24 (Ear Wax Removal Drops) mL cefTRIAXone/D5w 1gm IV premix 100 mls/hr IV DAILY 4 da ys #5 ea 10/27/24 [Rocephin/D5w 1gm IV premix] 1 gm in 50 ml cefTRIAXone/D5w 1gm IV premix 100 mls/hr IV DAILY Poss ible UTI 10/27/24 [Rocephin/D5w 1gm IV premix] 1 gm 30 days #5 ea in 50 ml Diazepam 5 mg IM [id number] PRN SEIZURES 30 11/05/24 days Allergies Allergy/AdvReac Type Severity Reaction Status Date / Time codeine Allergy Verified 06/24/24 19:33 Review of Systems Review of Systems Systems Reviewed: All systems reviewed, normal except as documented Past Medical History Past Medical History NEUROLOGIC: Positive Neurological Disorders, Dementia, Seizures and Epilepsy CARDIAC: Positive Cardiac Disorders, Hypercholesterolemia and Hypertension RESPIRATORY: Positive Asthma ENDOCRINE: Positive Diabetes Mellitus Type 2 Surgical History SURGICAL: Positive Tracheostomy and Gastrostomy Physical Exam Narrative Physical exam: Refer to [facility]. ED Exam Narrative Physical exam: Refer to [facility] Course Course Course Narrative: CXR is ordered for determining the etiology of shortness of breath. Quality Measures none Orders Category Date Time Status Bedside COVID-19 Antigen Test NOW Care 11/10/24 04:34 Active Bedside Influenza A&B Antigen Test NOW Care 11/10/24 04:34 Active Saline [Insert IV] NOW Care 11/10/24 04:34 Active Straight [In and Out Catheter] X1 Care 11/10/24 04:[address] chest abdomen pelvis wo Stat Exams 11/10/24 04:37 Ordered US gall bladder Stat Exams 11/10/24 04:38 Ordered XR chest 1V portable Stat Exams 11/10/24 04:37 Taken ABG [Arterial Blood Gas] Stat Lab 11/10/24 04:38 Ordered Amylase Stat Lab 11/10/24 04:38 Ordered BNP [B-Type Natriuretic Peptide] Stat Lab 11/10/24 04:38 Ordered Bilirubin,Direct Stat Lab 11/10/24 04:38 Ordered Blood Culture (Lab) Stat Lab 11/10/24 04:38 Ordered CBC Stat Lab 11/10/24 04:38 Ordered CMP [Comprehensive Metabolic Panel] Stat Lab 11/10/24 04:38 Ordered CRP [C-Reactive Protein] Stat Lab 11/10/24 04:38 Ordered ESR [Sed Rate (ESR)] Stat Lab 11/10/24 04:38 Ordered Lactate (Lactic Acid) Stat Lab 11/10/24 04:38 Ordered Lipase Stat Lab 11/10/24 04:38 Ordered Magnesium Stat Lab 11/10/24 04:38 Ordered Procalcitonin Stat Lab 11/10/24 04:38 Ordered RSV [Respiratory Syncytial Virus Ag] Stat Lab 11/10/24 04:38 Ordered Strep A Rapid Stat Lab 11/10/24 04:39 Ordered Troponin I Stat Lab 11/10/24 04:38 Ordered UA, C/S IF [Urinalysis, C/S if Indicated] Stat Lab 11/10/24 04:38 Ordered Cefepime Inj [Maxipime Inj] 2 gm Med 11/10/24 04:34 Discontinued SODIUM CHLORIDE 0.9% (Popper) [Ns 0.9% (P)] 50 ml IV X1 Ketorolac Inj [Toradol Inj] Med 11/10/24 04:35 Discontinued 30 mg IVP X1 ONE MethylPREDNISolone.* [SoluMEDROL Inj] Med 11/10/24 04:36 Discontinued 125 mg IVP X1 ONE Ondansetron Inj [Zofran Inj] Med 11/10/24 04:36 Discontinued 4 mg IVP X1 ONE Sodium Chloride 0.9% 1000 ml [Ns] 1,000 ml Med 11/10/24 04:34 Active IV 999 mls/hr Sodium Chloride 0.9% 1000 ml [Ns] 1,000 ml Med 11/10/24 04:35 Active IV 999 mls/hr Sodium Chloride 0.9% 1000 ml [Ns] 1,000 ml Med 11/10/24 04:36 Active IV 999 mls/hr Vancomycin Inj 2,000 mg Med 11/10/24 04:34 Active Sodium Chloride 0.9% 500 ml [Ns] 500 ml IV X1 Vital Signs Vital signs: Vital Signs Temperature 102.6 F H 11/10/24 04:16 Pulse Rate 116 H 11/10/24 04:16 Respiratory Rate 28 H 11/10/24 04:16 Blood Pressure 104/52 L 11/10/24 04:16 Pulse Oximetry (%) 94 L 11/10/24 04:16 Oxygen Delivery Method Trach Collar 11/10/24 04:16 Fever MDM Narrative MDM Narrative:: Scribe Attestation: I, Brandy Jackson, am scribing for and in the presence of Dr. Eubanks. Provider Notation: Although this document has been carefully reviewed, there may still be some phonetic and other typographical errors.? These errors are purely grammatical due to imperfections in the software program and should not be construed in any way to? compromise the substance of the patient's medical care during this visit. This section includes all my notes and documentations, including HPI, PE, and ED course. Ashkan Eubanks MD HPI: 69 y/o female with SHx of Tracheostomy and Hx of Dementia, Seizures, Hypertension, and Diabetes Mellitus Type 2 here from our subacute facility with fever. ROS: All negative except as documented in HPI. Physical Exam: General: Alert. No acute distress when remaining still. Fever noted. Eyes: Conjunctivae and lids clear. ENT: No nasal congestion. Pharynx normal. TM normal bilaterally. Neck: Supple. Heart: RRR. Lungs: No respiratory distress. Decreased air movement with rales. Abdomen: Soft with diffuse tenderness, difficult to localize. Decreased bowel sounds. No distension. No rebound or guarding. Back: No CVA tenderness. Skin: Warm and dry. Neuro: Difficult exam because patient can't follow commands. I reviewed our subacute facility notes. I ordered IV fluid and ABX and diagnostic tests. At 6 AM on 11/10/24, the care of the patient was transferred to Dr. Pantoja. Ashkan Eubanks MD Patient data External records reviewed:: [facility] previous records and Longterm records Clinical information provided by:: electric cell tender (Nurse) Social determinants that could affect healthcare access:: housing Patient has the following chronic illnesses:: Dementia, Seizures, Epilepsy, Hypercholesterolemia, Hypertension, Asthma, Diabetes Mellitus Type 2 How is presenting disease/condition affected by chronic disease/condition?: exacerbated by Evaluation data The following diagnostics were reviewed and interpreted by me:: lab results and radiology exam(s) Lab and/or radiology exams considered but not ordered:: None Interpretation Summary: Diagnostic tests are pending. Medications / Prescriptions Medications or Prescriptions considered but not ordered:: None Medication administrations:: Medication Administration History Vancomycin HCl 2,000 mg/ (Sodium Chloride) 500 mls @ 150 mls/hr IV X1 ONE Stop: 11/10/24 07:53 Sodium Chloride (Ns) 1,000 mls @ 999 mls/hr IV .Q1H1M ONE Stop: 11/10/24 05:34 Sodium Chloride (Ns) 1,000 mls @ 999 mls/hr IV .Q1H1M ONE Stop: 11/10/24 05:35 Sodium Chloride (Ns) 1,000 mls @ 999 mls/hr IV .Q1H1M ONE Stop: 11/10/24 05:36 Discontinued Medications Cefepime HCl 2 gm/ Sodium (Chloride) 50 mls @ 100 mls/hr IV X1 ONE Stop: 11/10/24 05:03 Ketorolac Tromethamine (Ketorolac Inj 30 Mg/Ml Vial) 30 mg IVP X1 ONE Stop: 11/10/24 04:36 Methylprednisolone Sodium Succinate (Methylprednisolone Sod Succ 62.5 Mg/Ml 2ml Vial) 125 mg IVP X1 ONE Stop: 11/10/24 04:37 Ondansetron HCl (Ondansetron Inj 2 Mg/Ml Inj 2 Ml) 4 mg IVP X1 ONE; Protocol Stop: 11/10/24 04:37 IVF, Vancomycin 2 G, Maxapimne 2 G. Consultations Consultation(s) initiated? (list below): No Diagnosis Fever Differential Diagnosis: cellulitis, fever of unknown origin, gastroenteritis, community acquired pneumonia, pyelonephritis, viral infection, sepsis and influenza Most likely diagnosis given after review of the tests above:: Fever Admission Indicated Admission indicated?: not indicated Explain why admission is indicated or not indicated:: Diagnostic tests are pending. Admission Request Was there a request for admission?: No Disposition Plan Disposition Plan: other (specify) (Signed out to Dr. Pantoja at 6 AM.) Discharge Plan Prescriptions/Referrals Prescriptions/Med Rec: No Action Gvoke 1mg/0.2 Ml 1 mg IM Q15MIN PRN (Reason: Hypocalcemia) Patient Comments: for blood glucose <70 and no IV access acetaminophen 325 mg tablet 650 mg G-tube Q4HR PRN (Reason: FEVER > 101) 30 Days 0RF Rx Instructions: 650mg Q4H PGT as needed for fever acetaminophen 325 mg tablet 650 mg G-tube Q6HR PRN (Reason: Pain Scale 1-3 (Mild) 30 Days 0RF Rx Instructions: Do not exceed 3gm a day from any source in 24 hours. artificial tear([id number]) [GenTeal Tears Moderate] 0.1-0.3-0.2 % drops 2 drp Both eyes Q8HR 30 Days 0RF Rx Instructions: FOR DRYNESS aspirin 81 mg tablet,chewable 81 mg G-tube QDAY 30 Days Qty: 30 0RF Rx Instructions: Give one tab daily PGT for DVT prevention atorvastatin 20 mg tablet 40 mg G-tube HS 30 Days Qty: 60 0RF bisacodyl [Dulcolax (bisacodyl)] 10 mg suppository 10 mg ND PRN PRN (Reason: No BM Per Bowel Management Protocol) 30 Days 0RF Rx Instructions: Administer as needed on 6th shift, if MOM ineffective. buspirone 10 mg tablet 10 mg G-tube BID 30 Days Qty: 30 0RF Label Comments: AMB agitation, refusing care Rx Instructions: Continue Buspirone 10mg BID x30 days then re-evaluate with MD. cholecalciferol (vitamin D3) 25 mcg (1,000 unit) tablet 25 mcg G-tube BID 30 Days Qty: 30 0RF enoxaparin 40 mg/0.4 mL syringe 40 mg SCi QDAY 90 Days Qty: 36 0RF Gvoke 1 mg/0.2 mL solution 1 mg IM Q15MIN PRN (Reason: Hypoglycemia) 30 Days 0RF guaifenesin [Taylor-Tussin] 100 mg/5 mL liquid 300 mg G-tube Q6HR PRN (Reason: Cough) 30 Days 0RF Rx Instructions: Conc: 100MG/5ML- give 300mg/15ml insulin lispro 100 unit/mL insulin pen See Protocol SCi 18 30 Days 0RF Protocol: Insulin correction Scale Condition: 150-200 mg/dL Dose/Route: 1 unit Condition: 201-250 mg/dL Dose/Route: 2 units Condition: 251-300 mg/dL Dose/Route: 3 units Condition: Greater than 300 mg/dL Dose/Route: 4 units Label Comments: diabetes Rx Instructions: Per Sliding Scale as follows: 0-150= 0 units; 151-200= 2 units; 201-250= 4 units; 251-300= 6 units; 301-350= 8 units; 351-400= 10 units; >400= 12 units; and call MD ipratropium-albuterol 0.5 mg-3 mg(2.5 mg base)/3 mL solution for nebulization 3 ml INH Q2HR PRN (Reason: Wheezing) 30 Days 0RF levetiracetam 100 mg/mL solution 1,000 mg G-tube BID 30 Days Qty: 300 0RF Rx Instructions: give [id number] for seizures magnesium hydroxide [Milk of Magnesia] 400 mg/5 mL suspension 30 ml G-tube PRN PRN (Reason: Constipation) 30 Days 0RF Rx Instructions: CONC: 400MG/5ML polyethylene glycol 3350 17 gram powder in packet 17 g G-tube PRN PRN (Reason: No BM Per Bowel Management Protocol) 30 Days 0RF Rx Instructions: Mix with 4oz of water before giving. Hold tube feeding for 30 minutes after administration. Notify provider if no results from Miralax. Fleet Enema 19-7 gram/118 mL enema 133 ml ND PRN PRN (Reason: No BM Per Bowel Management Protocol) 30 Days 0RF valproic acid (as sodium salt) 250 mg/5 mL solution 500 mg G-tube TID 30 Days Qty: 300 0RF Rx Instructions: Valproic acid 250/5ml chelsey. Give 500mg (10ml) PGT for seizures polyethylene glycol 3350 17 gram powder in packet 17 g G-tube PRN PRN (Reason: No BM Per Bowel Management Protocol) 365 Days Qty: 1 0RF Label Comments: Administer as needed if 2nd round bowel protocol ineffective. Rx Instructions: Mix with 4oz of water before giving. Hold tube feeding for 30 minutes after administration. Notify provider if no results from Miralax. magnesium hydroxide [Milk of Magnesia] 400 mg/5 mL suspension 30 ml G-tube PRN PRN (Reason: Constipation) 365 Days Qty: 30 0RF Rx Instructions: CONC: 400MG/5ML bisacodyl [Dulcolax (bisacodyl)] 10 mg suppository 10 mg ND PRN PRN (Reason: No BM Per Bowel Management Protocol) 365 Days Qty: 1 0RF Rx Instructions: Administer as needed on 6th shift, if MOM ineffective. Fleet Enema 19-7 gram/118 mL enema 133 ml ND PRN PRN (Reason: No BM Per Bowel Management Protocol) 365 Days Qty: 133 0RF Label Comments: If Dulcolax is ineffective on 3rd day / 7th shift, give Fleets enema per Bowel Management Protocol. Notify MD if no results from Enema. Ear Wax Removal Drops 6.5 % drops 5 drp otic (ear) Q61D Qty: 15 11RF Ear Wax Removal Drops 6.5 % drops 5 drp otic (ear) Q61D Qty: 15 11RF Rx Instructions: 5 drops per ear at first med pass of shift. Then irrigate ears with NS at next med pass of each shift x 4 days for wax build up. *Start on the of the month, every two months. Ear Wax Removal Drops 6.5 % drops 5 drp otic (ear) Q61D Qty: 15 11RF Ear Wax Removal Drops 6.5 % drops 5 drp otic (ear) Q61D Qty: 15 11RF Rx Instructions: 5 drops per ear at first med pass of shift. Then irrigate ears with NS at next med pass of each shift x 4 days for wax build up. *Start on the of the month, every two months. Ear Wax Removal Drops 6.5 % drops 5 drp otic (ear) Q61D Qty: 15 11RF Rx Instructions: 5 drops per ear at first med pass of shift. Then irrigate ears with NS at next med pass of each shift x 4 days for wax build up. *Start on the of the month, every two months. Ear Wax Removal Drops 6.5 % drops 5 drp otic (ear) Q61D Qty: 15 11RF Ear Wax Removal Drops 6.5 % drops 5 drp otic (ear) Q61D Qty: 15 11RF Ear Wax Removal Drops 6.5 % drops 5 drp otic (ear) Q61D Qty: 15 11RF Diazepam 5 mg IM PRNMRX1 PRN (Reason: SEIZURES) 30 Days 0RF Rx Instructions: Diazepam 5mg/mL injection, Inject 5mg/mL intramuscularly as needed for seizures. If seizure persist administer 2nd dose. If not effective send PT to ER for further eval. and notify MD. *Single dose vial ceftriaxone in dextrose,iso-os 1 gram/50 mL Piggyback 1 g IV QDAY 4 Days Qty: 24 0RF Rx Instructions: please continue until the 18 of October Problem List Clinical Impression: Fever Patient/Caregiver Discharge Instructions Print Language: Romansh
--- NOTE | 2024-11-10 04:37 | XR_ITS ---
Examination: CT chest, without intravenous contrast. CT abdomen, without intravenous contrast. CT pelvis, without intravenous contrast. 2-D sagittal and coronal reconstructions. 3-D reconstructions. Date and time of exam:November 10, 2024, 0738 hours, comparison September 13, 2024. INDICATIONS: Abdominal pain chest pain today CTDI vol (mgy) 20.1 DLP ([id number]. Technique: Multiple CT images, 3.0 mm slice thickness, obtained chest, abdomen, pelvis, with the high-resolution 64 slice scanner.. Sagittal and coronal 2-D reconstructions are obtained. 3-D reconstructions Low dose protocols were performed. One or more of the following dose reduction techniques were used; automated exposure control, adjustment of the mA and/or KV according to patient size, use of iterative reconstruction technique. Findings: Endotracheal tube tip 22 mm above the michael. No thoracic aortic aneurysmal dilatation Pulmonary artery segments are not enlarged. Mild to moderate enlargement cardiac contour with prominent vascular congestion Significant bilateral pneumonia especially at the lung bases No visualized liver or splenic lesion Cholelithiasis No pancreatic mass Moderate renal parenchymal scar formation Heavy abdominal aortic calcification no aneurysmal dilatation Soft tissue nodules in the anterior abdominal wall subcutaneous fatty tissue, the largest on the right side 22 mm, clinical correlation advised Normal appendix No bowel obstruction No diverticulitis No pelvic mass Urinary bladder wall thickening up to 8 mm Severe osteopenia with diffuse moderate to advanced disc narrowing thoracic and lumbar spine, prominent lumbar levoscoliosis IMPRESSION: Significant bilateral pneumonia Mild associated heart failure Moderate renal parenchymal scar formation with perinephric stranding, consider urinary tract infection Normal appendix Cystitis pattern
--- NOTE | 2024-11-10 04:37 | XR_ITS ---
Examination: AP chest single view Technique one AP portable semiupright chest single view. Date and time: November 10, 2024, 0441 hours, comparison October 27, 2024. INDICATIONS: Coughing and fever today. FINDINGS: Significant fairly diffuse bilateral pneumonia. Normal heart size. Tracheostomy tube tip 3.5 cm above michael IMPRESSION: Significant bilateral pneumonia.
--- NOTE | 2024-11-10 04:38 | XR_ITS ---
Examination: Abdomen sonogram, Limited Date and time of exam: November 10, 2024, 0554 hours Right upper abdominal pain this week Technique: Real-time jackson scale transabdominal sonographic images of the upper abdomen obtained. Findings: Normal gallbladder. Normal common bile duct 0.48 cm Pancreas obscured by bowel gas. Liver normal size and no liver lesions Normal hepatopedal portal venous and Patent IVC IMPRESSION: Normal gallbladder.
[2024-11-10] MEDS: SODIUM CHLORIDE 0.9% 1000 ML 1,000 ML 999 ML IV ×3 (05:26→07:16)
[2024-11-10 05:29] LABS: Lactate (Lactic Acid) 7.3 mMol/L (0.4-2.0)
[2024-11-10] MEDS: MethylPREDNISolone SOD SUCC 62.5 MG/ML 2ML VIAL 125 MG IVP (05:30)
[2024-11-10] MEDS: ONDANSETRON INJ 2 MG/ML INJ 2 ML 4 MG IVP (05:34)
[2024-11-10 05:37] LABS: Sed Rate (ESR) 29 mm/hr (0-30)
[2024-11-10] MEDS: KETOROLAC INJ 30 MG/ML VIAL IVP (05:37)
[2024-11-10 05:38] LABS: Collection Type, Urine Clean Catch
[2024-11-10] MEDS: CEFEPIME INJ 2 GM in SODIUM CHLORIDE 0.9% (Popper) 50 ML IV ×3 (05:38→21:00)
[2024-11-10 05:40] LABS: Basophils # (Auto) 0.1 Thou/mm3 (0.0-0.2); Basophils % (Auto) 0 % (0-2.5); Eosinophils # (Auto) 0.2 Thou/mm3 (0.0-0.5); Eosinophils % (Auto) 1 % (0-10); Hematocrit 32.2 % (36.0-46.0); Hemoglobin 10.7 g/dL (12.0-16.0); Immature Granulocytes Auto 0.63 Thou/mm3 (0.00-0.00); Lymphocytes # (Auto) 0.7 Thou/mm3 (1.0-4.8); Lymphocytes % (Auto) 2 % (10-50); Mean Corpuscular HGB Conc 33.2 g/dl (31.0-37.0); Mean Corpuscular Hemoglobin 31.3 pg (25.0-35.0); Mean Corpuscular Volume 94 fL (80-100); Monocytes # (Auto) 1.6 Thou/mm3 (0.0-0.8); Monocytes % (Auto) 4 % (0-12); Neutrophils # (Auto) 41.0 Thou/mm3 (1.8-7.7); Neutrophils % (Auto) 93 % (37-80); Nucleated Red Blood Cell # 0.00 Thou/mm3 (0.00-0.00); Nucleated Red Blood Cell % 0 /100 WBC (0); Platelet Count 324 Thou/mm3 (140-440); RDW Standard Deviation 60.2 fL (36.4-46.3); Red Blood Count 3.42 Miln/mm3 (4.00-5.20)
--- NOTE | 2024-11-10 05:44 | PC.NURSE ---
pt refused to open mouth for strep swab. dr. martinez made aware.
[2024-11-10 05:47] LABS: Base Excess 2 (-3-3); HCO3 28 mEq/L (20-26); Inspired Oxygen, FIO2 50 %; O2 Saturation 98 % (91-98); PCO2 47 mmHg (32.0-48.0); PO2 88 mmHg (83-108); pH, Arterial 7.38 (7.35-7.45)
[2024-11-10 05:48] LABS: White Blood Count 44.2 Thou/mm3 (3.6-11.0)
[2024-11-10 05:51] LABS: Allen Test Performed/OK; Puncture Site Right Radial
[2024-11-10 05:54] LABS: Bacteria,Urine Rare; Bilirubin,Urine Negative (Negative); Blood,Urine Negative (Negative); Clarity,Urine Turbid (Clear/Hazy); Color,Urine Yellow (Lt Yel-Yel); Glucose, Urine Negative (Negative); Ketones,Urine Trace (Negative); Leukocyte Esterase,Urine Positive (Negative); Nitrite,Urine Negative (Negative); PH,Urine 5.5 (5.0-7.0); Protein,Urine Trace (Neg - Trace); RBC,Urine 4 /hpf (0-3); Specific Gravity,Urine 1.022 (1.001-1.035); Squamous Epithelial Cell,Urine 4 /hpf (0-5); Urobilinogen,Urine Negative mg/dL (0.0-1.0); WBC,Urine 42 /hpf (0-5)
[2024-11-10 05:55] LABS: Culture Indicated,Urine Yes
--- NOTE | 2024-11-10 05:56 | PC.NURSE ---
ultrasound at bedside
[2024-11-10 06:02] LABS: Path Review Blood Smear Sent to Pathologist
[2024-11-10 06:06] LABS: B-Type Natriuretic Peptide 31 pg/mL (0-100)
[2024-11-10 06:14] LABS: Alanine Aminotransferase < 7 U/L (10-49); Albumin, Serum 3.9 gm/dL (3.4-4.8); Albumin/Globulin Ratio 1.2 (1.2-2.2); Alkaline Phosphatase 59 U/L (46-116); Amylase 48 U/L (30-118); Anion Gap 16 (7-16); Aspartate Amino Transferase 20 U/L (0-34); BUN/Creatinine Ratio 21 Ratio (12-20); Bilirubin,Direct < 0.1 mg/dL (0.0-0.3); Bilirubin,Total 0.3 mg/dL (0.3-1.2); Blood Urea Nitrogen 15 mg/dL (9-23); C-Reactive Protein 4.1 mg/dL (0.0-0.9); Calcium 9.9 mg/dL (8.3-10.6); Calcium (Corrected) 10.0 mg/dL (8.5-10.1); Carbon Dioxide 25.8 mMol/L (20.0-31.0); Chloride 92 mMol/L (98-107); Creatinine (Component) 0.7 mg/dL (0.6-1.3); Estimated Creatinine Clearance 96.4 mL/min (>60); Globulin 3.3 gm/dL (2.3-3.5); Glucose 142 mg/dL (74-106); Lipase 38 U/L (12-53); Magnesium 1.4 mg/dL (1.6-2.6); Osmolality,Calculated 271 (275-295); Potassium 3.7 mMol/L (3.4-5.1); Sodium 134 mMol/L (136-145); Total Protein 7.2 gm/dL (5.7-8.2); Troponin I < 0.020 ng/mL (0.0-0.045); eGFR > 60 See Note
[2024-11-10 06:34] LABS: Procalcitonin 5.05 ng/ml (0.0-0.49)
--- NOTE | 2024-11-10 06:49 | EDNOTE_ITS ---
Emergency Room Addendum Addendum Narrative: 0600: Care assumed from Dr. Eubanks, the previous shift emergency physician. Past medical, surgical, social and family history reviewed. Vitals and home medications reviewed. I will assume the care of the patient at this time, pending CT chest/abdomen/pelvis wo con, US gallbladder, and CXR reports. Please refer to the emergency department record for history and examination from initial visit.?The following addendum documentation note is intended to reflect any pending information, findings, or radiology results not included in the patient?s initial chart. Patient was given 3L of IV normal saline and started on Cefepime and Vancomycin. Dx: UTI, sepsis, pneumonia 0735: I spoke with resident Dr. Montalvo working with hospitalist Dr. Montalvo regarding admission. Discussed patients PMHx, HPI, ED course, exam findings, labs, and radiology results. Will evaluate patient in the ED. RADIOLOGY Ordering Physician: Ashkan Eubanks MD Date of Service: 11/10/24 Procedure(s): US gall bladder Accession Number(s): [id number] cc: Ashkan Eubanks MD; Joon Pennington MD; NO PRIMARY/FAMILY,PHYSICIAN~ Examination: Abdomen sonogram, Limited Date and time of exam: November 10, 2024, 0554 hours Right upper abdominal pain this week Technique: Real-time jackson scale transabdominal sonographic images of the upper abdomen obtained. Findings: Normal gallbladder. Normal common bile duct 0.48 cm Pancreas obscured by bowel gas. Liver normal size and no liver lesions Normal hepatopedal portal venous and Patent IVC IMPRESSION: Normal gallbladder. Dictated By: Joon Pennington MD Signed By: <Electronically signed by Joon Pennington MD in OV> 11/10/24 0734 Ordering Physician: Ashkan Eubanks MD Date of Service: 11/10/24 Procedure(s): CT chest abdomen pelvis wo Accession Number(s): [id number] cc: Ashkan Eubanks MD; Joon Pennington MD; NO PRIMARY/FAMILY,PHYSICIAN~ Examination: CT chest, without intravenous contrast. CT abdomen, without intravenous contrast. CT pelvis, without intravenous contrast. 2-D sagittal and coronal reconstructions. 3-D reconstructions. Date and time of exam:November 10, 2024, 0738 hours, comparison September 13, 2024. INDICATIONS: Abdominal pain chest pain today CTDI vol (mgy) 20.1 DLP ([id number]. Technique: Multiple CT images, 3.0 mm slice thickness, obtained chest, abdomen, pelvis, with the high-resolution 64 slice scanner.. Sagittal and coronal 2-D reconstructions are obtained. 3-D reconstructions Low dose protocols were performed. One or more of the following dose reduction techniques were used; automated exposure control, adjustment of the mA and/or KV according to patient size, use of iterative reconstruction technique. Findings: Endotracheal tube tip 22 mm above the michael. No thoracic aortic aneurysmal dilatation Pulmonary artery segments are not enlarged. Mild to moderate enlargement cardiac contour with prominent vascular congestion Significant bilateral pneumonia especially at the lung bases No visualized liver or splenic lesion Cholelithiasis No pancreatic mass Moderate renal parenchymal scar formation Heavy abdominal aortic calcification no aneurysmal dilatation Soft tissue nodules in the anterior abdominal wall subcutaneous fatty tissue, the largest on the right side 22 mm, clinical correlation advised Normal appendix No bowel obstruction No diverticulitis No pelvic mass Urinary bladder wall thickening up to 8 mm Severe osteopenia with diffuse moderate to advanced disc narrowing thoracic and lumbar spine, prominent lumbar levoscoliosis IMPRESSION: Significant bilateral pneumonia Mild associated heart failure Moderate renal parenchymal scar formation with perinephric stranding, consider urinary tract infection Normal appendix Cystitis pattern Dictated By: Joon Pennington MD Signed By: <Electronically signed by Joon Pennington MD in OV> 11/10/24 0754 Ordering Physician: Ashkan Eubanks MD Date of Service: 11/10/24 Procedure(s): XR chest 1V portable Accession Number(s): [id number] cc: Ashkan Eubanks MD; Joon Pennington MD; NO PRIMARY/FAMILY,PHYSICIAN~ Examination: AP chest single view Technique one AP portable semiupright chest single view. Date and time: November 10, 2024, 0441 hours, comparison October 27, 2024. INDICATIONS: Coughing and fever today. FINDINGS: Significant fairly diffuse bilateral pneumonia. Normal heart size. Tracheostomy tube tip 3.5 cm above michael IMPRESSION: Significant bilateral pneumonia. Dictated By: Joon Pennington MD Signed By: <Electronically signed by Joon Pennington MD in OV> 11/10/24 0739 __
--- NOTE | 2024-11-10 07:00 | PC.NURSE ---
called pharmacy for vancomycin, medication not available in er.
[2024-11-10] MEDS: Magnesium Sulfate 2 GM Ivpb 2 GM/50 ML BAG IV (08:11)
[2024-11-10 08:24] LABS: Reflex Lactate? Y
[2024-11-10] MEDS: Vancomycin Inj 2,000 MG in SODIUM CHLORIDE 0.9% 500 ML 500 ML 150 MG IV (08:26)
[2024-11-10 08:45] LABS: Respiratory Syncytial Virus Ag Negative (Negative)
[2024-11-10 09:29] LABS: Lactic Acid, 3 HR 5.0 mMol/L (0.4-2.0)
[2024-11-10 09:33] LABS: Strep A Rapid Negative (Negative)
--- NOTE | 2024-11-10 09:40 | PC.NURSE ---
Patient cleaned and dried. New linen on bed placed. New pink foam border pad placed tp coccyx.
--- NOTE | 2024-11-10 10:05 | PD.RESHP ---
Documentation for date of: 11/10/24 HPI History of Present Illness History of present illness: History is obtained from chart reviewing and discussing with ER physician. Ms. Ennis is a 69-year-old female past medical history significant for epilepsy, hypertension, hyperlipidemia, diabetes mellitus presented to the ED from subacute after found to have fever and leukocytosis. Patient was recently treated for sepsis secondary to UTI with Rocephin for 4 days at the subacute. But despite antibiotic treatment patient continued to have fever and leukocytosis. In the ED patient is influenza A and B. ED course In the ED initial blood pressure was 104/52, pulse 116, respirations 28, temperature 102.6 Labs were significant for WBC 44.2, hemoglobin 10.7, hematocrit 32.2, sodium 134, chloride 92, lactic acid 5.0, magnesium 1.4, C-reactive protein 4.1, Pro-Man 5.05 Urinalysis was positive for leukocyte esterase, hematuria for, pyuria 42 and rare bacteriuria Chest x-ray is evident of significant bilateral pneumonia CT chest/abdomen/pelvis-significant bilateral pneumonia, mild associated heart failure, moderate renal parenchymal scar formation with perinephric stranding, cystitis pattern Ultrasound of gallbladder-normal gallbladder findings In the ED patient received Solu-Medrol 125 mg IVP x 1, 3 L of NS, Zofran 4 mg IV push x 1, ketorolac 30 mg IV push x 1, cefepime 2 g x 1 and magnesium 2 g x 1 PMH: Epilepsy, hypertension, hyperlipidemia, diabetes mellitus PSH: Unknown SH: Unknown Allergies: Codeine Home Meds: Pending Med rec Review of Systems Review of Systems Systems Reviewed: All systems reviewed, normal except as documented Exam Vital Signs Temp Pulse Resp BP Pulse Ox O2 Del Method FiO2 99.4 F 98 24 H 144/81 H 95 Trach Collar 50 11/10/24 09:41 11/10/24 09:41 11/10/24 09:41 11/10/24 09:41 11/10/24 09:41 11/10/24 09:41 11/10/24 07:15 Narrative Exam GENERAL: Awake, non-verbal however does respond with eye movement and head nods, s/p tracheostomy, VENT and PEG dependent. NEURO: unable to asses however pt is able to follow commands such as squeezing fingers and moving toes HEENT: Atraumatic, Normocephalic. mucous membranes moist. Eyes open, symmetrical, & clear HEART: Normal Heart Sounds LUNGS: Tracheostomy tube in place, coarse breath sounds and bilateral crackles heard, no wheezing ABDOMEN: soft, non-distended, non-tender, bowel sounds heard, no guarding or rebound tenderness SKIN: No Rash or ecchymoses EXTREMITIES: 1+ edema bilaterally in LE, no tenderness, able to move all 4 extremities, pedal pulses palpated Results: Labs 11/10/24 05:05 11/10/24 05:05 Labs: Short CBC 11/10/24 Range/Units 05:05 WBC 44.2 H* (3.6-11.0) Thou/mm3 Hgb 10.7 L (12.0-16.0) g/dL Hct 32.2 L (36.0-46.0) % Plt Count 324 (140-440) Thou/mm3 BMP 11/10/24 05:05 Sodium 134 L Potassium 3.7 Chloride 92 L Carbon Dioxide 25.8 BUN 15 Creatinine 0.7 Glucose 142 H Calcium 9.9 Cardiac Enzymes 11/10/24 Range/Units 05:05 Troponin I < 0.020 (0.0-0.045) ng/mL Liver Function 11/10/24 Range/Units 05:05 Total Bilirubin 0.3 (0.3-1.2) mg/dL Direct Bilirubin < 0.1 (0.0-0.3) mg/dL AST 20 (0-34) U/L ALT < 7 L (10-49) U/L Alkaline Phosphatase 59 (46-116) U/L Albumin 3.9 (3.4-4.8) gm/dL Urine 11/10/24 Range/Units 05:21 Urine Color Yellow (Lt Yel-Yel) Urine Clarity Turbid A (Clear/Hazy) Urine pH 5.5 (5.0-7.0) Ur Specific [place] 1.022 (1.001-1.035) Urine Protein Trace (Neg - Trace) Urine Glucose (UA) Negative (Negative) ABG Interpretation ABG results: 11/10/24 05:33 ABG pH 7.38 ABG pCO2 47 ABG pO2 88 ABG HCO3 28 H ABG O2 Saturation 98 ABG Base Excess 2 Quality Measures Quality Measures none Advance care planning discussed with:: patient Medications Home Medications and Allergies Home Medications ?Medication ?Instructions ?Recorded ?Confirmed ?Type Gvoke 1mg/0.2 Ml 1 mg IM Q15MIN PRN Hypocalcemia 10/14/24 10/10/24 History Allergies Allergy/AdvReac Type Severity Reaction Status Date / Time codeine Allergy Verified 06/24/24 19:33 Visit Medications Acetaminophen (Acetaminophen 325 Mg Tablet) 650 mg PO Q6H PRN PRN Reason: Fever >101.5 Stop: 12/10/24 09:50 Albuterol/Ipratropium (Albuterol/Ipratropium (Duoneb) Rt Ericka 3 Ml Nebu) 3 ml INH Q4HRRT PRN PRN Reason: WHEEZING Stop: 12/10/24 10:59 Heparin Sodium (Porcine) (Heparin Sod Inj 5000 Unit/Ml Vial) 5,000 unit SC Q12HR JAYMIE Stop: 11/24/24 09:59 Cefepime HCl 2 gm/ Sodium (Chloride) 50 mls @ 100 mls/hr IV Q8HR JAYMIE Stop: 11/17/24 09:58 Methylprednisolone Sodium Succinate (Methylprednisolone Sod Succ 40 Mg Vial) 40 mg IVP QDAY JAYMIE Stop: 11/18/24 08:59 Ondansetron HCl (Ondansetron Inj 2 Mg/Ml Inj 2 Ml) 4 mg IVP Q6H PRN; Protocol PRN Reason: NAUSEA OR VOMITING Stop: 12/10/24 09:50 Pharmacy Consult (Vancomycin Pharmacy To Dose 1 Each Each) 1 each IV QDAY PRN PRN Reason: CONSULT Stop: 12/10/24 09:59 Discontinued Medications Cefepime HCl 2 gm/ Sodium (Chloride) 50 mls @ 100 mls/hr IV X1 ONE Stop: 11/10/24 05:03 Last Infusion: 11/10/24 06:14 Dose: Infused Vancomycin HCl 2,000 mg/ (Sodium Chloride) 500 mls @ 150 mls/hr IV X1 ONE Stop: 11/10/24 07:53 Last Admin: 11/10/24 08:26 Dose: 150 mls/hr Sodium Chloride (Ns) 1,000 mls @ 999 mls/hr IV .Q1H1M ONE Stop: 11/10/24 05:34 Last Infusion: 11/10/24 07:14 Dose: Infused Sodium Chloride (Ns) 1,000 mls @ 999 mls/hr IV .Q1H1M ONE Stop: 11/10/24 05:35 Last Infusion: 11/10/24 07:14 Dose: Infused Sodium Chloride (Ns) 1,000 mls @ 999 mls/hr IV .Q1H1M ONE Stop: 11/10/24 05:36 Last Infusion: 11/10/24 08:18 Dose: Infused Magnesium Sulfate (Magnesium Sulfate Ivpb) 2 gm in 50 mls @ 25 mls/hr IV X1 ONE Stop: 11/10/24 08:47 Last Admin: 11/10/24 08:11 Dose: 25 mls/hr Ketorolac Tromethamine (Ketorolac Inj 30 Mg/Ml Vial) 30 mg IVP X1 ONE Stop: 11/10/24 04:36 Last Admin: 11/10/24 05:37 Dose: 30 mg Methylprednisolone Sodium Succinate (Methylprednisolone Sod Succ 62.5 Mg/Ml 2ml Vial) 125 mg IVP X1 ONE Stop: 11/10/24 04:37 Last Admin: 11/10/24 05:30 Dose: 125 mg Ondansetron HCl (Ondansetron Inj 2 Mg/Ml Inj 2 Ml) 4 mg IVP X1 ONE; Protocol Stop: 11/10/24 04:37 Last Admin: 11/10/24 05:34 Dose: 4 mg Assessment & Plan Plan Ms. Ennis is a 69-year-old female past medical history significant for epilepsy, hypertension, hyperlipidemia, diabetes mellitus presented to the ED from subacute after found to have fever and leukocytosis. Pt is admitted to inpatient services for treatment of Pneumonia and UTI requiring IV antibiotics. #Leukocytosis secondary to #HCAP vs. VAP #Acute pyelonephritis #Lactic acidosis -On admission WBC count was 44.2, patient had fever of 102.6, lactic acid 7.3 -> 5.0, Procalcitonin 5.05 - Patient was treated at the subacute with ceftriaxone 1 g for 4 days and failed outpatient therapy -Urinalysis was positive for leukocyte esterase, hematuria for, pyuria 42 and rare bacteriuria. Patient does not have a Hobson catheter -SIRS 4 /4 tachycardia, tachypnea, fever 102.6, lactic acidosis with no evidence of endorgan damage Chest x-ray is evident of significant bilateral pneumonia CT chest/abdomen/pelvis-significant bilateral pneumonia, mild associated heart failure, moderate renal parenchymal scar formation with perinephric stranding, cystitis pattern. Plan: In the ED patient received 3 L of IV fluids -DuoNebs every 4 hours as needed -Solu-Medrol 40 mg IVP daily -Blood and urine cultures pending -Started cefepime 2g every 8 hours 11/10- -Started vancomycin pharmacy to dose 11/10- #Type 2 Diabetes mellitus- controlled 09/24/2024 A1c 5.9, glucose on admission 142. -Continue with sliding scale insulin -Hypoglycemic protocol if needed #Epilepsy -Resumed patient's home Keppra and valproic acid via G-tube #Hyperlipidemia #Primary hypertension -Resumed home Atorvastatin 40 mg at bedtime -BP on admission is soft, will hold resuming home antihypertensive and continue to monitor BP #Tracheostomy -Continue with airway suctioning as needed and tracheostomy maintenance with RT #PEG tube Resume feeds as was from subacute facility. -dietary team consulted Health Maintenance Disposition: telemetry for IV antibiotics for HCAP vs. VAP and UTI DVT Prophylaxis: Heparin 5000 units SC Q12 hrs GI Prophylaxis: Pantoprozol-40 IVP Qday Diet: resumed PEG tube feeds Lines: Peripheral lines Code status: DNR Assessment and plan discussed with my attending physician Dr. Selvin Montalvo (PGY-2)- Internal medicine resident Attending Provider Attestation/Addendum I Manuel Montalvo MD reviewed the note and agree with the resident's assessment & plan with modifications/additions/exceptions as below. I have personally reviewed labs, imaging, home meds/prior records, examined the patient, formulated and discussed management plan with the IM team. A 69-year-old female with history of DM, seizure disorder, HTN, Hx of C. difficile bedbound LTAC resident with trach and PEG in place was transferred to ED following fevers and pyuria noted on routine monitoring. On presentation patient was tachycardic however normotensive with untidy tracheostomy tube in place and had significant leukocytosis WBC 44,000 and significantly elevated lactate CRP and procalcitonin. Further imaging did reveal patchy bilateral pulmonary infiltrates and perinephric stranding. Patient has complicated urinary tract infection and healthcare associated pneumonia. Will start on cefepime and vancomycin empirically, start prednisone 40 mg daily for 5 days, consult pulmonology, RT for evaluation of trach collar and replacement. Continue gentle IV fluid resuscitation, resume home medications.
[2024-11-10] MEDS: HEPARIN SOD INJ 5000 UNIT/ML VIAL SC ×2 (11:17→20:59)
[2024-11-10] MEDS: VALPROIC ACID SYRUP 250 MG/5 ML UDC 500 MG PO (19:48)
--- NOTE | 2024-11-10 20:05 | PC.NURSE ---
Spoke to JACKIE Benjamin regarding feeding tube, per Ej pt is on Glucerna 1.2 at 58ml/hr. Per MD to start fedding per subacute heel seat trimmer order. Will start feeding tonight.
[2024-11-10] MEDS: ATORVASTATIN CALCIUM 20 MG TABLET 40 MG GT (20:59)
[2024-11-10] MEDS: VANCOMYCIN/WATER 1GM IVPB 200 ML IV (21:02)
[2024-11-11] VITALS (13 sets, daily range): BP systolic 98–133; BP diastolic 55–78; PULSE 60–107; RESP 19–37; TEMP 36.1–36.7; O2SAT 94–100; BMI 33.2
[2024-11-11] MEDS: CEFEPIME INJ 2 GM in SODIUM CHLORIDE 0.9% (Popper) 50 ML IV ×3 (05:04→21:46)
[2024-11-11] MEDS: VALPROIC ACID SYRUP 250 MG/5 ML UDC 500 MG PO (05:17)
[2024-11-11 06:28] LABS: Basophils # (Auto) 0.1 Thou/mm3 (0.0-0.2); Basophils % (Auto) 0 % (0-2.5); Eosinophils # (Auto) 0.0 Thou/mm3 (0.0-0.5); Eosinophils % (Auto) 0 % (0-10); Mean Corpuscular Volume 98 fL (80-100); Monocytes % (Auto) 4 % (0-12); Nucleated Red Blood Cell # 0.00 Thou/mm3 (0.00-0.00); Nucleated Red Blood Cell % 0 /100 WBC (0)
[2024-11-11 06:29] LABS: Hematocrit 24.8 % (36.0-46.0); Immature Granulocytes Auto 0.61 Thou/mm3 (0.00-0.00); Lymphocytes # (Auto) 1.2 Thou/mm3 (1.0-4.8); Lymphocytes % (Auto) 2 % (10-50); Mean Corpuscular HGB Conc 31.5 g/dl (31.0-37.0); Mean Corpuscular Hemoglobin 30.7 pg (25.0-35.0); Monocytes # (Auto) 1.7 Thou/mm3 (0.0-0.8); Neutrophils # (Auto) 43.5 Thou/mm3 (1.8-7.7); Neutrophils % (Auto) 93 % (37-80); Platelet Count 224 Thou/mm3 (140-440); RDW Standard Deviation 65.6 fL (36.4-46.3); Red Blood Count 2.54 Miln/mm3 (4.00-5.20)
[2024-11-11 06:53] LABS: Hemoglobin 7.8 g/dL (12.0-16.0)
[2024-11-11 06:54] LABS: White Blood Count 47.0 Thou/mm3 (3.6-11.0)
[2024-11-11 07:11] LABS: Alanine Aminotransferase < 7 U/L (10-49); Albumin, Serum 3.3 gm/dL (3.4-4.8); Albumin/Globulin Ratio 1.2 (1.2-2.2); Alkaline Phosphatase 46 U/L (46-116); Anion Gap 9 (7-16); Aspartate Amino Transferase 16 U/L (0-34); BUN/Creatinine Ratio 32 Ratio (12-20); Bilirubin,Total 0.2 mg/dL (0.3-1.2); Blood Urea Nitrogen 19 mg/dL (9-23); Calcium 9.0 mg/dL (8.3-10.6); Calcium (Corrected) 9.6 mg/dL (8.5-10.1); Carbon Dioxide 27.9 mMol/L (20.0-31.0); Chloride 102 mMol/L (98-107); Creatinine (Component) 0.6 mg/dL (0.6-1.3); Estimated Creatinine Clearance 117.1 mL/min (>60); Globulin 2.8 gm/dL (2.3-3.5); Glucose 193 mg/dL (74-106); Magnesium 2.0 mg/dL (1.6-2.6); Osmolality,Calculated 284 (275-295); Phosphorous 2.7 mg/dL (2.4-5.1); Potassium 5.0 mMol/L (3.4-5.1); Sodium 139 mMol/L (136-145); Total Protein 6.1 gm/dL (5.7-8.2); eGFR > 60 See Note
[2024-11-11] MEDS: ASPIRIN 81 MG CHEW GT (08:53)
[2024-11-11] MEDS: levETIRAcetam LIQD 500 MG/5 ML UDC 1000 MG GT ×2 (08:53→21:43)
[2024-11-11] MEDS: HEPARIN SOD INJ 5000 UNIT/ML VIAL SC ×2 (08:57→21:49)
[2024-11-11 09:04] LABS: Lactate (Lactic Acid) 3.0 mMol/L (0.4-2.0)
[2024-11-11] MEDS: INSULIN LISPRO (AdmeLOG) 1 UNIT/0.01 ML UNIT SC ×3 (09:08→17:42)
[2024-11-11] MEDS: VANCOMYCIN/WATER 1250 MG IVPB 250 ML 120 MG IV ×2 (09:23→22:43)
[2024-11-11 10:23] LABS: Glucose Estimated Average 126 mg/dL (80-131); Hemoglobin A1C 6.0 % Hgb (4.8-6.0)
--- NOTE | 2024-11-11 10:26 | PC.SS ---
Patient is a 69 year old female presenting to the hospital for pneumonia and UTI. Patient is not alert, [employer] made contact with niece Gunjan, Gunjan was not available to speak. [employer]OPER placed phone call to patient?s sister Suzie to confirm demographic information. Role and reason explained. Patient is from [facility] subacute. Suzie confirmed that prior to patient being hospitalized she did not use any medical equipment, was living with her at address on file. Suzie stated that patient hasn?t seen her PCP in three years and is unsure of the name. Suzie stated that she will be visiting patient tomorrow. d/c return to subacute. PCP: none Decision maker: Suzie Ennis [phone]/c: subacute
--- NOTE | 2024-11-11 10:31 | PC.DIETICIAN ---
Nutrition prescription Glucerna 1.2 at 58 ml/hr x 24 hrs via PEG tube by pump (goal). If no IV fluids, water flushes of 40 ml/hr (or per MD).
[2024-11-11 11:59] LABS: Reflex Lactate? Y
--- NOTE | 2024-11-11 12:46 | ESPR_ITS ---
<Statement entered by Yuri Montalvo MD - 11/11/24 17:12> Patient is seen at bedside. Leukocyte count is slowly downtrending will discontinue Solu-Medrol. Will add fluconazole to cover any fungal infections. Lactic acid up trended again will discontinue IV fluids for now as patient received adequate amount of fluids. Blood cultures have no growth and repeat blood cultures also have no growth at 24 hours. will repeat urine cultures as first urine cultures show contamination. On physical examination there is no evidence of any decubitus ulcer or any open wounds. Hemoglobin is downtrending but will continue to monitor as this could be secondary to dilutional anemia will order anemia workup. Patient was seen and examined by me personally. I have directly supervised and reviewed documentation by the team resident and agree with its findings. ------- Plan of care was discussed with the attending, Dr. Selvin Montalvo, PGY-2 Documentation for date of: 11/11/24 Subjective Subjective Interval history: Patient was seen and examined today at bedside. Pt is non-verbal but does respond with blinking to yes or no. She denies vision changes, chest pain, abdominal pain and body aches. Labs were reviewed, signifcant for leukocytosis wbc 47. H&H downtreading Hgb7.6, Hct 24.6, MCHC 30.9. Re-ordered CBC stat due to uptrending WBC and H/H. Ordered fungal culture due to concern for other pathogens that might causes increase WBC. Lactate high but downtrending to 2.7. Spoke with RT for trach change. Discontine methylprednisolone. Ordered purewick urinary catheter to monitor urinary output Urine culture still pedning. Vital reviewed, pt is tachycardia and hypotensive BP 98/55 ordered bolus iv LR 250cc. Exam Vital Signs Temp Pulse Resp BP Pulse Ox O2 Del Method FiO2 97.9 F 60 19 98/55 L 98 Trach Collar 40 11/11/24 11:05 11/11/24 11:05 11/11/24 11:05 11/11/24 11:05 11/11/24 11:05 11/11/24 11:05 11/11/24 11:05 Narrative Exam GENERAL: Awake, non-verbal however does respond with eye movement and head nods, s/p tracheostomy, VENT and PEG dependent. NEURO: unable to asses however pt is able to follow commands such as squeezing fingers and moving toes HEENT: Atraumatic, Normocephalic. mucous membranes moist. Eyes open, symmetrical, & clear HEART: Normal Heart Sounds LUNGS: Tracheostomy tube in place, coarse breath sounds and bilateral crackles heard, no wheezing ABDOMEN: soft, non-distended, non-tender, bowel sounds heard, no guarding or rebound tenderness SKIN: No Rash or ecchymoses EXTREMITIES: 1+ edema bilaterally in LE and +2 on UE, no tenderness, able to move all 4 extremities, pedal pulses palpated Objective Labs 11/11/24 12:41 11/11/24 05:15 Labs: Laboratory Results - last 24 hr 11/11/24 11/11/24 05:15 08:31 WBC 47.0 H* RBC 2.54 L Hgb 7.8 L D Hct 24.8 L MCV 98 MCH 30.7 MCHC 31.5 RDW Std Deviation 65.6 H Plt Count 224 D Neut % (Auto) 93 H Lymph % (Auto) 2 L [place] % (Auto) 4 Eos % (Auto) 0 Baso % (Auto) 0 Neut # (Auto) 43.5 H Lymph # (Auto) 1.2 [place] # (Auto) 1.7 H Eos # (Auto) 0.0 Baso # (Auto) 0.1 Immature Gran # (Auto) 0.61 H Absolute Nucleated RBC 0.00 Immature Gran % 1 H Nucleated RBC % 0 Smear Path Review Cancelled Sodium 139 Potassium 5.0 D Chloride 102 Carbon Dioxide 27.9 Anion Gap 9 BUN 19 Creatinine 0.6 Estim Creat Clear Calc 117.1 eGFR > 60 BUN/Creatinine Ratio 32 H Glucose [address] Glu mg/dL 126 Hemoglobin A1c 6.0 Calculated Osmolality 284 Lactic Acid 3.0 H Calcium 9.0 Corrected Calcium 9.6 Phosphorus 2.7 Magnesium 2.0 Total Bilirubin 0.2 L AST 16 ALT < 7 L Alkaline Phosphatase 46 D Total Protein 6.1 Albumin 3.3 L D Globulin 2.8 Albumin/Globulin Ratio 1.2 ABG Interpretation ABG results: 11/10/24 05:33 ABG pH 7.38 ABG pCO2 47 ABG pO2 88 ABG HCO3 28 H ABG O2 Saturation 98 ABG Base Excess 2 Quality Measures Quality Measures none Advance care planning discussed with:: other Assessment & Plan Assessment Current Active Medications: Generic Name Dose Route Start Last Admin Trade Name Freq PRN Reason Stop Dose Admin Acetaminophen 650 mg 11/11/24 08:22 Acetaminophen Ericka 325 Mg/10 Ml Udc GT 12/10/24 09:50 Q6H PRN Fever >100.3 Albuterol/Ipratropium 3 ml 11/10/24 10:00 Albuterol/Ipratropium (Duoneb) Rt Ericka 3 Ml Nebu INH 12/10/24 10:59 Q4HRRT PRN WHEEZING Artificial Tears 2 drop 11/11/24 08:30 Artificial Tears 225 Drop/15 Ml Btl BOTH EYES 12/11/24 08:29 Q8HR JAYMIE Aspirin 81 mg 11/11/24 09:00 11/11/24 08:53 Aspirin 81 Mg Chew GT 12/11/24 08:59 81 mg QDAY JAYMIE Administration Atorvastatin Calcium 40 mg 11/11/24 21:00 Atorvastatin Calcium 20 Mg Tablet GT 12/11/24 20:59 HS JAYMIE Buspirone HCl 10 mg 11/11/24 09:00 11/11/24 08:53 Buspirone Hcl 5 Mg Tablet GT 12/11/24 08:59 10 mg BID JAYMIE Administration Dextrose 25 ml 11/11/24 08:20 Dextrose 50%-Water Inj 50 Ml Syringe IV 12/11/24 08:19 Q15MIN PRN BG 50-70 responsive npo pt Dextrose 50 ml 11/11/24 08:20 Dextrose 50%-Water Inj 50 Ml Syringe IV 12/11/24 08:19 Q15MIN PRN BG <50 OR BG <70 & pt unresponsive Glucagon 1 mg 11/11/24 08:20 Glucagon Inj 1 Mg Vial IM Q15MIN PRN BG <70, and no IV access Heparin Sodium (Porcine) 5,000 unit 11/10/24 10:00 11/11/24 08:57 Heparin Sod Inj 5000 Unit/Ml Vial SC 11/24/24 09:59 5,000 unit Q12HR JAYMIE Administration Cefepime HCl 2 gm/ Sodium 50 mls @ 100 mls/hr 11/10/24 09:59 11/11/24 05:04 Chloride IV 11/17/24 09:58 100 mls/hr Q8HR JAYMIE Administration Vancomycin HCl 250 mls @ 120 mls/hr 11/11/24 10:00 11/11/24 09:23 Vancomycin/Water 1250 Mg Ivpb IV 11/18/24 09:59 120 mls/hr BID@1000,2200 JAYMIE Administration Insulin Human Lispro 0 unit 11/11/24 08:30 11/11/24 11:58 Insulin Lispro (Admelog) 1 Unit/0.01 Ml Unit SC 12/11/24 08:29 3 unit Q6HR JAYMIE Administration Protocol Levetiracetam 1,000 mg 11/11/24 09:00 11/11/24 08:53 Levetiracetam Liqd 500 Mg/5 Ml Udc GT 12/11/24 08:59 1,000 mg BID JAYMIE Administration Ondansetron HCl 4 mg 11/10/24 09:51 Ondansetron Inj 2 Mg/Ml Inj 2 Ml IVP 12/10/24 09:50 Q6H PRN NAUSEA OR VOMITING Protocol Pantoprazole Sodium 40 mg 11/10/24 17:30 11/11/24 08:54 Pantoprazole Inj 40 Mg Vial IVP 12/10/24 17:29 40 mg QDAY JAYMIE Administration Pharmacy Consult 1 each 11/10/24 10:00 Vancomycin Pharmacy To Dose 1 Each Each IV 12/10/24 09:59 QDAY PRN CONSULT Valproic Acid 500 mg 11/11/24 14:00 Valproic Acid Syrup 250 Mg/5 Ml [facility] [place] 12/11/24 13:59 TID JAYMIE Plan Ms. Ennis is a 69-year-old female past medical history significant for epilepsy, hypertension, hyperlipidemia, diabetes mellitus presented to the ED from [facility] after found to have fever and leukocytosis. Pt is admitted to inpatient services for treatment of Pneumonia and UTI requiring IV antibiotics. #Leukocytosis secondary to #HCAP vs. VAP #Acute pyelonephritis #Lactic acidosis -On admission WBC count was 44.2, patient had fever of 102.6, lactic acid 7.3 -> 5.0, Procalcitonin 5.05 - Patient was treated at the [facility] with ceftriaxone 1 g for 4 days and failed outpatient therapy -Urinalysis was positive for leukocyte esterase, hematuria for, pyuria 42 and rare bacteriuria. Patient does not have a Hobson catheter -SIRS 4 /4 tachycardia, tachypnea, fever 102.6, lactic acidosis with no evidence of endorgan damage Chest x-ray is evident of significant bilateral pneumonia CT chest/abdomen/pelvis-significant bilateral pneumonia, mild associated heart failure, moderate renal parenchymal scar formation with perinephric stranding, cystitis pattern. Discontinues Solu-Medrol Plan: In the ED patient received 3 L of IV fluids -DuoNebs every 4 hours as needed -Blood and urine cultures pending result -Continue cefepime 2g every 8 hours 11/10- -Continue vancomycin pharmacy to dose 11/10- - Continue to monitor CBC and lactic acidosis - Ordered IV bolus ringer lactacted 500ml # Acute anemia 2/2 Etiology unknown, since there is no evidence of hematemesis, melena and hematochezia. Will order follow workup. Patient H/H downtreading, HgB 7.6, Hct 24.6 Plan - Iron study and ferritin - Blood smear pathology - Reticulocyte count - Vitamin B12 and folate - Continue to monitor H&H #Type 2 Diabetes mellitus- controlled 09/24/2024 A1c 5.9, glucose on admission 142. Plan -Continue with sliding scale insulin -Hypoglycemic protocol if needed #Epilepsy -Continue patient's home Keppra and valproic acid via G-tube #Hyperlipidemia #Primary hypertension Plan -Continue home Atorvastatin 40 mg at bedtime -BP on admission is soft, will hold resuming home antihypertensive and continue to monitor BP #Tracheostomy Plan -Continue with airway suctioning as needed and tracheostomy maintenance with RT - Trach change #PEG tube Resume feeds as was from subacute facility. -dietary team consulted Health Maintenance Disposition: telemetry for IV antibiotics for HCAP vs. VAP and UTI DVT Prophylaxis: Heparin 5000 units SC Q12 hrs GI Prophylaxis: Pantoprozol-40 IVP Qday Diet: resumed PEG tube feeds Lines: Peripheral lines Code status: DNR Patient seen and assessed under supervision of attending physician and discuss with senior resident Dr. Montalvo PGY-2 Gabbie Whittington MD PGY-1, Internal Medicine Attending Provider Attestation/Addendum I Manuel Montalvo MD reviewed the note and agree with the resident's assessment & plan with modifications/additions/exceptions as below. I have personally reviewed labs, imaging, home meds/prior records, examined the patient, formulated and discussed management plan with the IM team. A 69-year-old female with history of DM, seizure disorder, HTN, Hx of C. difficile bedbound LTAC resident with trach and PEG in place was transferred to ED following fevers and pyuria noted on routine monitoring. On presentation patient was tachycardic however normotensive with untidy tracheostomy tube in place and had significant leukocytosis WBC 44,000 and significantly elevated lactate CRP and procalcitonin. Further imaging did reveal patchy bilateral pulmonary infiltrates and perinephric stranding. Patient has complicated urinary tract infection and healthcare associated pneumonia. Pt has uptrending leukocytosis, and Hgb dropped significantly without any source of bleeding. Lactate remanied elevated 3.5. Repeat CBC q 12, requested RT to change the trach, will get fungal cutlures from blood and trach & urine, Cont cefepime and vancomycin, Add fluconazole for empiric antifungal coverage. Cont tube feeding, Will get CT head and will plan, consult pulmonology, disconitnue IVF, resume home medications.
[2024-11-11 12:53] LABS: Lactic Acid, 3 HR 2.7 mMol/L (0.4-2.0)
[2024-11-11 13:02] LABS: Basophils # (Auto) 0.1 Thou/mm3 (0.0-0.2); Basophils % (Auto) 0 % (0-2.5); Eosinophils # (Auto) 0.0 Thou/mm3 (0.0-0.5); Eosinophils % (Auto) 0 % (0-10); Lymphocytes # (Auto) 1.0 Thou/mm3 (1.0-4.8); Monocytes % (Auto) 3 % (0-12); Nucleated Red Blood Cell # 0.00 Thou/mm3 (0.00-0.00); Nucleated Red Blood Cell % 0 /100 WBC (0)
[2024-11-11 13:03] LABS: Hematocrit 24.6 % (36.0-46.0); Immature Granulocytes Auto 0.46 Thou/mm3 (0.00-0.00); Lymphocytes % (Auto) 2 % (10-50); Mean Corpuscular HGB Conc 30.9 g/dl (31.0-37.0); Mean Corpuscular Hemoglobin 30.2 pg (25.0-35.0); Mean Corpuscular Volume 98 fL (80-100); Monocytes # (Auto) 1.1 Thou/mm3 (0.0-0.8); Neutrophils # (Auto) 39.0 Thou/mm3 (1.8-7.7); Neutrophils % (Auto) 94 % (37-80); Platelet Count 256 Thou/mm3 (140-440); RDW Standard Deviation 63.8 fL (36.4-46.3); Red Blood Count 2.52 Miln/mm3 (4.00-5.20)
[2024-11-11 13:04] LABS: Hemoglobin 7.6 g/dL (12.0-16.0); White Blood Count 41.7 Thou/mm3 (3.6-11.0)
[2024-11-11 13:34] LABS: Procalcitonin 5.25 ng/ml (0.0-0.49)
--- NOTE | 2024-11-11 14:15 | PC.NURSE ---
Spoke with Dr. Sunshine. Dr. noe patient on 2nd tele floor. orders received to give bolus of 250 ml x1. Charge nurs Prakash notified.
--- NOTE | 2024-11-11 14:44 | PC.SS ---
Rounding note: Patient from subacute on iv antibiotic, IV fluid
[2024-11-11] MEDS: VALPROIC ACID SYRUP 250 MG/5 ML UDC 500 MG GT ×2 (15:06→21:54)
[2024-11-11] MEDS: RINGERS LACTATED 1000 ML 1,000 ML 999 ML IV (15:16)
[2024-11-11] MEDS: Artificial Tears 225 DROP/15 ML BTL BOTH EYES ×2 (15:18→22:48)
[2024-11-11 16:10] LABS: Lactate (Lactic Acid) 3.5 mMol/L (0.4-2.0)
[2024-11-11 19:06] LABS: Reflex Lactate? Y
[2024-11-11 21:22] LABS: Lactic Acid, 3 HR 2.5 mMol/L (0.4-2.0)
[2024-11-11] MEDS: ATORVASTATIN CALCIUM 20 MG TABLET 40 MG GT (21:44)
[2024-11-11] MEDS: FLUCONAZOLE 100 MG TABLET 200 MG PO (22:19)
[2024-11-12] VITALS (12 sets, daily range): BP systolic 117–168; BP diastolic 57–84; PULSE 49–77; RESP 18–34; TEMP 36.1–36.2; O2SAT 95–100; BMI 33.2
[2024-11-12] MEDS: INSULIN LISPRO (AdmeLOG) 1 UNIT/0.01 ML UNIT SC ×3 (00:01→11:46)
[2024-11-12] MEDS: CEFEPIME INJ 2 GM in SODIUM CHLORIDE 0.9% (Popper) 50 ML IV ×3 (05:40→21:04)
[2024-11-12] MEDS: VALPROIC ACID SYRUP 250 MG/5 ML UDC 500 MG GT ×3 (05:44→21:12)
[2024-11-12] MEDS: Artificial Tears 225 DROP/15 ML BTL BOTH EYES ×3 (05:49→21:18)
[2024-11-12 07:12] LABS: Basophils # (Auto) 0.1 Thou/mm3 (0.0-0.2); Basophils % (Auto) 0 % (0-2.5); Eosinophils # (Auto) 0.0 Thou/mm3 (0.0-0.5); Eosinophils % (Auto) 0 % (0-10); Hematocrit 23.9 % (36.0-46.0); Immature Granulocytes Auto 0.37 Thou/mm3 (0.00-0.00); Immature Reticulocyte Fraction 26.2 % (3.0-15.9); Lymphocytes # (Auto) 1.9 Thou/mm3 (1.0-4.8); Lymphocytes % (Auto) 6 % (10-50); Mean Corpuscular HGB Conc 31.0 g/dl (31.0-37.0); Mean Corpuscular Hemoglobin 30.3 pg (25.0-35.0); Mean Corpuscular Volume 98 fL (80-100); Monocytes # (Auto) 1.7 Thou/mm3 (0.0-0.8); Monocytes % (Auto) 6 % (0-12); Neutrophils # (Auto) 27.1 Thou/mm3 (1.8-7.7); Neutrophils % (Auto) 87 % (37-80); Nucleated Red Blood Cell # 0.04 Thou/mm3 (0.00-0.00); Nucleated Red Blood Cell % 0 /100 WBC (0); Platelet Count 256 Thou/mm3 (140-440); RDW Standard Deviation 65.4 fL (36.4-46.3); Red Blood Count 2.44 Miln/mm3 (4.00-5.20); Reticulocyte % (Auto) 3.7 % (0.5-1.5); Reticulocyte Absolute Auto 90.8 Biln/L (25.0-75.0); Reticulocyte Hgb Content 33.3 pg (28.0-35.0); White Blood Count 31.2 Thou/mm3 (3.6-11.0)
[2024-11-12 07:17] LABS: Ferritin 109 ng/mL (7.3-270.7); Iron 45 mcg/dL (50-170); Percent Iron Saturation 14 % (20-55); Total Iron Binding Capacity 316 mcg/dL (250-425); Unsaturated Iron Binding 271 (225-295)
[2024-11-12 07:18] LABS: Folate 21.58 ng/mL (>5.38); Vitamin B12 1462 pg/mL (211-911)
[2024-11-12 07:36] LABS: Alanine Aminotransferase < 7 U/L (10-49); Albumin, Serum 3.4 gm/dL (3.4-4.8); Albumin/Globulin Ratio 1.2 (1.2-2.2); Alkaline Phosphatase 52 U/L (46-116); Anion Gap 8 (7-16); Aspartate Amino Transferase 11 U/L (0-34); BUN/Creatinine Ratio 35 Ratio (12-20); Bilirubin,Total < 0.2 mg/dL (0.3-1.2); Blood Urea Nitrogen 21 mg/dL (9-23); Calcium 9.2 mg/dL (8.3-10.6); Calcium (Corrected) 9.7 mg/dL (8.5-10.1); Carbon Dioxide 27.7 mMol/L (20.0-31.0); Chloride 103 mMol/L (98-107); Creatinine (Component) 0.6 mg/dL (0.6-1.3); Estimated Creatinine Clearance 88.2 mL/min (>60); Globulin 2.8 gm/dL (2.3-3.5); Glucose 182 mg/dL (74-106); Magnesium 1.9 mg/dL (1.6-2.6); Osmolality,Calculated 285 (275-295); Phosphorous 2.0 mg/dL (2.4-5.1); Potassium 4.8 mMol/L (3.4-5.1); Sodium 139 mMol/L (136-145); Total Protein 6.2 gm/dL (5.7-8.2); eGFR > 60 See Note
[2024-11-12 08:25] LABS: Hemoglobin 7.4 g/dL (12.0-16.0)
[2024-11-12] MEDS: levETIRAcetam LIQD 500 MG/5 ML UDC 1000 MG GT ×2 (08:58→20:23)
[2024-11-12] MEDS: NAPH,KPH MBDB 1 PACKET (1.5 GM) 2 PACKET PO (08:58)
[2024-11-12] MEDS: ASPIRIN 81 MG CHEW GT (09:00)
[2024-11-12] MEDS: FLUCONAZOLE 100 MG TABLET 200 MG PO (09:00)
[2024-11-12] MEDS: HEPARIN SOD INJ 5000 UNIT/ML VIAL SC ×2 (09:00→20:27)
--- NOTE | 2024-11-12 09:47 | ESPR_ITS ---
<Statement entered by Manuel Montalvo MD - 11/17/24 18:09> I Manuel Montalvo MD reviewed the note and agree with the resident's assessment & plan with modifications/additions/exceptions as below. I have personally reviewed labs, imaging, home meds/prior records, examined the patient, formulated and discussed management plan with the IM team. <Statement entered by Yuri Montalvo MD - 11/13/24 11:33> Pt is seen at bedside, appears to be in less distress, able to follow some command, Leukocyte count is down trending. Fungal cultures are pending. Patient was seen and examined by me personally. I have directly supervised and reviewed documentation by the team resident and agree with its findings. ------- Plan of care was discussed with the attending, Dr. Selvin Montalvo, PGY-2 Documentation for date of: 11/12/24 Subjective Subjective Interval history: Overnight there were no acute events and patient remained afebrille Today patient was seen and examined at bedside. AM labs reviewed. Significant for downtrending leukocytosis of 31.2. H/H still downtrending with no clinical symptoms for bleeding. Urine cultures grew gram positive cocci. MRSA Nasal screne is negative. Fungal culture is pending. Anemia workup showed Fe 45 (low), Iron sat 14(low), ferritin normal. Continue cefepime, vancomycin and fluconazole Order EKG for bradycardia of 49 Pt has been having large soft stools for the past 2 days, order C.diff and stool studies Exam Vital Signs Temp Pulse Resp BP Pulse Ox O2 Del Method FiO2 96.9 F 61 22 H 117/57 L 98 Trach Collar 40 11/12/24 07:41 11/12/24 07:41 11/12/24 07:41 11/12/24 07:41 11/12/24 07:41 11/12/24 07:41 11/12/24 06:48 Narrative Exam GENERAL: Awake, non-verbal however does respond with eye movement and head nods, s/p tracheostomy, VENT and PEG dependent. NEURO: unable to asses however pt is able to follow commands such as squeezing fingers and moving toes HEENT: Atraumatic, Normocephalic. mucous membranes moist. Eyes open, symmetrical, & clear HEART: Normal Heart Sounds LUNGS: Tracheostomy tube in place, coarse breath sounds and bilateral crackles heard, no wheezing ABDOMEN: soft, non-distended, non-tender, bowel sounds heard, no guarding or rebound tenderness SKIN: No Rash or ecchymoses, no decubitus ulcer or open wounds. EXTREMITIES: 1+ edema bilaterally in LE and +2 on UE, no tenderness, able to move all 4 extremities, pedal pulses palpated Objective Labs 11/12/24 06:20 11/12/24 06:20 Labs: Laboratory Results - last 24 hr 11/11/24 11/11/24 11/11/24 05:15 12:41 15:40 WBC 41.7 H* D RBC 2.52 L Hgb 7.6 L Hct 24.6 L MCV 98 MCH 30.2 MCHC 30.9 L RDW Std Deviation 63.8 H Plt Count 256 D Neut % (Auto) 94 H Lymph % (Auto) 2 L [place] % (Auto) 3 Eos % (Auto) 0 Baso % (Auto) 0 Neut # (Auto) 39.0 H Lymph # (Auto) 1.0 [place] # (Auto) 1.1 H Eos # (Auto) 0.0 Baso # (Auto) 0.1 Immature Gran # (Auto) 0.46 H Absolute Nucleated RBC 0.00 Immature Gran % 1 H Nucleated RBC % 0 Smear Path Review Cancelled Cancelled Retic Count (auto) Absolute Retic Immature Retic Fraction Retic Hgb Content CHr Sodium Potassium Chloride Carbon Dioxide Anion Gap BUN Creatinine Estim Creat Clear Calc eGFR BUN/Creatinine Ratio Glucose Estimated Ave Glu mg/dL 126 Hemoglobin A1c 6.0 Calculated Osmolality Lactic Acid 2.7 H 3.5 H Calcium Corrected Calcium Phosphorus Magnesium Iron TIBC Iron Saturation Unsat Iron Binding Ferritin Total Bilirubin AST ALT Alkaline Phosphatase Total Protein Albumin Globulin Albumin/Globulin Ratio Vitamin B12 Folate Procalcitonin 5.25 H 11/11/24 11/12/24 21:07 06:20 WBC 31.2 H D RBC 2.44 L Hgb 7.4 L Hct 23.9 L MCV 98 MCH 30.3 MCHC 31.0 RDW Std Deviation 65.4 H Plt Count 256 Neut % (Auto) 87 H Lymph % (Auto) 6 L [place] % (Auto) 6 Eos % (Auto) 0 Baso % (Auto) 0 Neut # (Auto) 27.1 H Lymph # (Auto) 1.9 [place] # (Auto) 1.7 H Eos # (Auto) 0.0 Baso # (Auto) 0.1 Immature Gran # (Auto) 0.37 H Absolute Nucleated RBC 0.04 H Immature Gran % 1 H Nucleated RBC % 0 Smear Path Review Cancelled Retic Count (auto) 3.7 H Absolute Retic 90.8 H Immature Retic Fraction 26.2 H Retic Hgb Content CHr 33.3 Sodium 139 Potassium 4.8 Chloride 103 Carbon Dioxide 27.7 Anion Gap 8 BUN 21 Creatinine 0.6 Estim Creat Clear Calc 88.2 eGFR > 60 BUN/Creatinine Ratio 35 H Glucose [address] Glu mg/dL Hemoglobin A1c Calculated Osmolality 285 Lactic Acid 2.5 H Calcium 9.2 Corrected Calcium 9.7 Phosphorus 2.0 L Magnesium 1.9 Iron 45 L TIBC 316 Iron Saturation 14 L Unsat Iron Binding 271 Ferritin 109 Total Bilirubin < 0.2 L AST 11 ALT < 7 L Alkaline Phosphatase 52 Total Protein 6.2 Albumin 3.4 Globulin 2.8 Albumin/Globulin Ratio 1.2 Vitamin B12 1462 H Folate 21.58 Procalcitonin ABG Interpretation ABG results: 11/10/24 05:33 ABG pH 7.38 ABG pCO2 47 ABG pO2 88 ABG HCO3 28 H ABG O2 Saturation 98 ABG Base Excess 2 Quality Measures Quality Measures none Advance care planning discussed with:: other Assessment & Plan Assessment Current Active Medications: Generic Name Dose Route Start Last Admin Trade Name Freq PRN Reason Stop Dose Admin Acetaminophen 650 mg 11/11/24 08:22 Acetaminophen Ericka 325 Mg/10 Ml Udc GT 12/10/24 09:50 Q6H PRN Fever >100.3 Albuterol/Ipratropium 3 ml 11/10/24 10:00 Albuterol/Ipratropium (Duoneb) Rt Ericka 3 Ml Nebu INH 12/10/24 10:59 Q4HRRT PRN WHEEZING Artificial Tears 2 drop 11/11/24 08:30 11/12/24 05:49 Artificial Tears 225 Drop/15 Ml Btl BOTH EYES 12/11/24 08:29 2 drop Q8HR JAYMIE Administration Aspirin 81 mg 11/11/24 09:00 11/12/24 09:00 Aspirin 81 Mg Chew GT 12/11/24 08:59 81 mg QDAY JAYMIE Administration Atorvastatin Calcium 40 mg 11/11/24 21:00 11/11/24 21:44 Atorvastatin Calcium 20 Mg Tablet GT 12/11/24 20:59 40 mg HS JAYMIE Administration Buspirone HCl 10 mg 11/11/24 09:00 11/12/24 09:00 Buspirone Hcl 5 Mg Tablet GT 12/11/24 08:59 10 mg BID JAYMIE Administration Dextrose 25 ml 11/11/24 08:20 Dextrose 50%-Water Inj 50 Ml Syringe IV 12/11/24 08:19 Q15MIN PRN BG 50-70 responsive npo pt Dextrose 50 ml 11/11/24 08:20 Dextrose 50%-Water Inj 50 Ml Syringe IV 12/11/24 08:19 Q15MIN PRN BG <50 OR BG <70 & pt unresponsive Fluconazole 200 mg 11/11/24 21:00 11/12/24 09:00 Fluconazole 100 Mg Tablet PO 11/18/24 20:59 200 mg BID JAYMIE Administration Glucagon 1 mg 11/11/24 08:20 Glucagon Inj 1 Mg Vial IM Q15MIN PRN BG <70, and no IV access Heparin Sodium (Porcine) 5,000 unit 11/10/24 10:00 11/12/24 09:00 Heparin Sod Inj 5000 Unit/Ml Vial SC 11/24/24 09:59 5,000 unit Q12HR JAYMIE Administration Cefepime HCl 2 gm/ Sodium 50 mls @ 100 mls/hr 11/10/24 09:59 11/12/24 05:40 Chloride IV 11/17/24 09:58 100 mls/hr Q8HR JAYMIE Administration Vancomycin HCl 250 mls @ 120 mls/hr 11/11/24 10:00 11/12/24 00:48 Vancomycin/Water 1250 Mg Ivpb IV 11/18/24 09:59 Infused BID@1000,2200 JAYMIE Infusion Protocol Insulin Human Lispro 0 unit 11/11/24 08:30 11/12/24 06:00 Insulin Lispro (Admelog) 1 Unit/0.01 Ml Unit SC 12/11/24 08:29 2 unit Q6HR JAYMIE Administration Protocol Levetiracetam 1,000 mg 11/11/24 09:00 11/12/24 08:58 Levetiracetam Liqd 500 Mg/5 Ml Udc GT 12/11/24 08:59 1,000 mg BID JAYMIE Administration Ondansetron HCl 4 mg 11/10/24 09:51 Ondansetron Inj 2 Mg/Ml Inj 2 Ml IVP 12/10/24 09:50 Q6H PRN NAUSEA OR VOMITING Protocol Pantoprazole Sodium 40 mg 11/10/24 17:30 11/12/24 08:58 Pantoprazole Inj 40 Mg Vial IVP 12/10/24 17:29 40 mg QDAY JAYMIE Administration Pharmacy Consult 1 each 11/10/24 10:00 Vancomycin Pharmacy To Dose 1 Each Each IV 12/10/24 09:59 QDAY PRN CONSULT Valproic Acid 500 mg 11/11/24 14:00 11/12/24 05:44 Valproic Acid Syrup 250 Mg/5 Ml Udc GT 12/11/24 13:59 500 mg TID JAYMIE Administration Plan Ms. Ennis is a 69-year-old female past medical history significant for epilepsy, hypertension, hyperlipidemia, diabetes mellitus presented to the ED from [facility] after found to have fever and leukocytosis. Pt is admitted to inpatient services for treatment of Pneumonia and UTI requiring IV antibiotics. #Leukocytosis secondary to #HCAP vs. VAP #Acute pyelonephritis #Lactic acidosis -On admission WBC count was 44.2, patient had fever of 102.6, lactic acid 7.3 -> 5.0, Procalcitonin 5.05 - Patient was treated at the subacute with ceftriaxone 1 g for 4 days and failed outpatient therapy -Urinalysis was positive for leukocyte esterase, hematuria for, pyuria 42 and rare bacteriuria. Patient does not have a Hobson catheter -SIRS 4 /4 tachycardia, tachypnea, fever 102.6, lactic acidosis with no evidence of endorgan damage Chest x-ray is evident of significant bilateral pneumonia CT chest/abdomen/pelvis-significant bilateral pneumonia, mild associated heart failure, moderate renal parenchymal scar formation with perinephric stranding, cystitis pattern. Discontinued Solu-Medrol - Urine cultures positive for GPC - Previous coccidiodes IgM antibody negative (09/16/24) Plan: In the ED patient received 3 L of IV fluids - DuoNebs every 4 hours as needed - Blood no growth after 48hrs, continue to monitor - Continue with fluconazole 200 mg p.o. twice daily - Continue cefepime 2g every 8 hours 11/10- - Continue vancomycin pharmacy to dose 11/10- - Continue to monitor CBC and lactic acidosis - Stopped IV fluids - Stool studies ordered - C. difficile PCR ordered # Acute anemia 2/2 Etiology unknown, since there is no evidence of hematemesis, melena and hematochezia. Will order follow workup. Patient H/H downtreading, HgB 7.6, Hct 24.6 Vit B12 - 1462, Reticulocyte count 3.7, iron 45, TIBC 316 Plan - Blood smear pathology pending - Continue to monitor H&H #Type 2 Diabetes mellitus- controlled 09/24/2024 A1c 5.9, glucose on admission 142. Plan -Continue with sliding scale insulin -Hypoglycemic protocol if needed #Epilepsy -Continue patient's home Keppra and valproic acid via G-tube #Hyperlipidemia #Primary hypertension Plan -Continue home Atorvastatin 40 mg at bedtime -BP on admission is soft, will hold resuming home antihypertensive and continue to monitor BP #Tracheostomy Plan -Continue with airway suctioning as needed and tracheostomy maintenance with RT - Trach change, completed #PEG tube Resume feeds as was from subacute facility. -dietary team consulted, on board Health Maintenance Disposition: telemetry for IV antibiotics for HCAP vs. VAP and UTI DVT Prophylaxis: Heparin 5000 units SC Q12 hrs GI Prophylaxis: Pantoprozol-40 IVP Qday Diet: resumed PEG tube feeds Lines: Peripheral lines Code status: DNR Patient seen and assessed under supervision of attending physician and discuss with senior resident Dr. Montalvo PGY-2 Gabbie Whittington MD PGY-1, Internal Medicine
[2024-11-12] MEDS: VANCOMYCIN/WATER 1250 MG IVPB 250 ML 120 MG IV (10:19)
--- NOTE | 2024-11-12 10:57 | PC.NURSE ---
COORDINATED POC WITH DR. SHARMA AND WHEEL AND AXLE INSPECTOR, 40ML/HR WATER FLUSH, WILL START FLUSHES PER RECOMMENDATIONS.
--- NOTE | 2024-11-12 11:10 | EKG_ITS ---
[facility] Test Date: 2024-11-12 Pat Name: YOANDY SANDOVAL [facility] Gender[facility] [employer]: BROOKS : 1955 Requested By: Gabbie Whittington Order Number: [id number] Reading MD: Gabbie Whittington Measurements Intervals Comfort Rate: 58 P: -9 KS: 122 QRS: -22 QRSD: 81 T: -4 QT: 384 QTc: 380 Interpretive Statements SINUS BRADYCARDIA BORDERLINE LEFT AXIS DEVIATION LOW QRS VOLTAGE PATTERN CONSISTENT WITH PULMONARY DISEASE Compared to ECG 10/09/2024 18:06:05 Sinus tachycardia no longer present Ventricular premature complex(es) no longer present Short KS interval no longer present Myocardial infarct finding no longer present /store/S0/[id number]
[2024-11-12 15:55] LABS: Stool for WBCs Negative (Negative)
[2024-11-12] MEDS: ATORVASTATIN CALCIUM 20 MG TABLET 40 MG GT (20:17)
[2024-11-12] MEDS: FLUCONAZOLE SUSP 40 MG/ML ML 200 MG GT (21:12)
[2024-11-12 21:43] LABS: Vancomycin,Trough 26.0 mcg/mL (5.0-10.0)
[2024-11-13] VITALS (13 sets, daily range): BP systolic 128–155; BP diastolic 65–90; PULSE 56–84; RESP 18–35; TEMP 36.1–36.4; O2SAT 94–99; BMI 33.2
[2024-11-13] MEDS: CEFEPIME INJ 2 GM in SODIUM CHLORIDE 0.9% (Popper) 50 ML IV (05:51)
[2024-11-13] MEDS: VALPROIC ACID SYRUP 250 MG/5 ML UDC 500 MG GT ×2 (05:55→14:51)
[2024-11-13] MEDS: Artificial Tears 225 DROP/15 ML BTL BOTH EYES ×3 (05:57→21:11)
[2024-11-13 06:02] LABS: Basophils # (Auto) 0.0 Thou/mm3 (0.0-0.2); Basophils % (Auto) 0 % (0-2.5); Eosinophils # (Auto) 0.0 Thou/mm3 (0.0-0.5); Eosinophils % (Auto) 0 % (0-10); Hematocrit 24.1 % (36.0-46.0); Immature Granulocytes Auto 0.25 Thou/mm3 (0.00-0.00); Lymphocytes # (Auto) 3.8 Thou/mm3 (1.0-4.8); Lymphocytes % (Auto) 20 % (10-50); Mean Corpuscular HGB Conc 32.0 g/dl (31.0-37.0); Mean Corpuscular Hemoglobin 30.8 pg (25.0-35.0); Mean Corpuscular Volume 96 fL (80-100); Monocytes # (Auto) 1.4 Thou/mm3 (0.0-0.8); Monocytes % (Auto) 7 % (0-12); Neutrophils # (Auto) 13.7 Thou/mm3 (1.8-7.7); Neutrophils % (Auto) 71 % (37-80); Nucleated Red Blood Cell # 0.05 Thou/mm3 (0.00-0.00); Nucleated Red Blood Cell % 0 /100 WBC (0); Platelet Count 286 Thou/mm3 (140-440); RDW Standard Deviation 64.1 fL (36.4-46.3); Red Blood Count 2.50 Miln/mm3 (4.00-5.20); White Blood Count 19.2 Thou/mm3 (3.6-11.0)
[2024-11-13 06:08] LABS: Hemoglobin 7.7 g/dL (12.0-16.0)
[2024-11-13 06:41] LABS: Alanine Aminotransferase < 7 U/L (10-49); Albumin, Serum 3.5 gm/dL (3.4-4.8); Albumin/Globulin Ratio 1.3 (1.2-2.2); Alkaline Phosphatase 53 U/L (46-116); Anion Gap 9 (7-16); Aspartate Amino Transferase 10 U/L (0-34); BUN/Creatinine Ratio 32 Ratio (12-20); Bilirubin,Total 0.2 mg/dL (0.3-1.2); Blood Urea Nitrogen 19 mg/dL (9-23); Calcium 9.4 mg/dL (8.3-10.6); Calcium (Corrected) 9.8 mg/dL (8.5-10.1); Carbon Dioxide 31.2 mMol/L (20.0-31.0); Chloride 99 mMol/L (98-107); Creatinine (Component) 0.6 mg/dL (0.6-1.3); Estimated Creatinine Clearance 88.2 mL/min (>60); Globulin 2.6 gm/dL (2.3-3.5); Glucose 110 mg/dL (74-106); Magnesium 1.9 mg/dL (1.6-2.6); Osmolality,Calculated 280 (275-295); Phosphorous 2.8 mg/dL (2.4-5.1); Potassium 4.6 mMol/L (3.4-5.1); Sodium 139 mMol/L (136-145); Total Protein 6.1 gm/dL (5.7-8.2); eGFR > 60 See Note
[2024-11-13] MEDS: Magnesium Sulfate 2 GM Ivpb 2 GM/50 ML BAG IV (09:01)
[2024-11-13] MEDS: FLUCONAZOLE SUSP 40 MG/ML ML 200 MG GT (09:02)
[2024-11-13] MEDS: levETIRAcetam LIQD 500 MG/5 ML UDC 1000 MG GT ×2 (09:02→21:10)
[2024-11-13] MEDS: HEPARIN SOD INJ 5000 UNIT/ML VIAL SC ×2 (09:02→21:11)
[2024-11-13] MEDS: ASPIRIN 81 MG CHEW GT (09:02)
--- NOTE | 2024-11-13 10:02 | PC.SS ---
SS follow up note; Patient is on IV ABX, pending Cultures, patient will discharge back to Subacute when medically cleared.
[2024-11-13 10:29] LABS: Clostridium Difficile PCR Positive (Negative)
[2024-11-13] MEDS: VANCOMYCIN/WATER 1GM IVPB 200 ML IV ×2 (10:31→21:11)
--- NOTE | 2024-11-13 10:44 | ESPR_ITS ---
<Statement entered by Yuri Montalvo MD - 11/13/24 22:03> Pt is seen at bedside, have significant improvement in WBC, on mechanical ventilation (settings have not changed from subacute), has remained afebrile overnight. Pt had another episode of diarrhea today, C. diff PCR is pending. trach was change and fungal cultures from tach are pending. Will anticipate DC tomorrow. Patient was seen and examined by me personally. I have directly supervised and reviewed documentation by the team resident and agree with its findings. ------- Plan of care was discussed with the attending, Dr. Amanda Montalvo, PGY-2 Documentation for date of: 11/13/24 Subjective Subjective Interval history: No acute events overnight Today patient was seen and examined at bedside. Saturating well on mechanical ventilation. Vitals BP 139/65 the remainder are unremarkable AM labs reviewed; WBC downtreading to 19.2. H/H improving. Still pending fungal culture. Urine culture grew positive for enterococcus faecium,resistant to ampicillin, ciprofloxacin, penicillin, rifampin, streptomycin. Blood culture still no growth after 48hours Fungal culture- takess 30 days to grow C.diff positive 11/12/24 Stop cefepime( 11/10/24 -11/13/24) Stop fluconazole (11/11/24- 11/13/24) Start levoquin 750mg IV (11/13/24) Continue vancomycin (11/10- Exam Vital Signs Temp Pulse Resp BP Pulse Ox O2 Del Method FiO2 97.4 F 79 19 139/65 H 95 Trach Collar 40 11/13/24 08:00 11/13/24 08:00 11/13/24 08:00 11/13/24 08:00 11/13/24 08:00 11/13/24 08:00 11/13/24 07:56 Narrative Exam GENERAL: Awake, non-verbal however does respond with eye movement and head nods, s/p tracheostomy, VENT and PEG dependent. NEURO: unable to asses however patient is able to follow commands such as squeezing fingers and moving toes HEENT: Atraumatic, Normocephalic. mucous membranes moist. Eyes open, symmetrical, & clear HEART: Normal Heart Sounds LUNGS: Tracheostomy tube in place, coarse breath sounds and bilateral crackles heard, no wheezing ABDOMEN: soft, non-distended, non-tender, bowel sounds heard, no guarding or rebound tenderness SKIN: No Rash or ecchymoses, no decubitus ulcer or open wounds. EXTREMITIES: 1+ edema bilaterally in LE and +1 on UE, no tenderness, able to move all 4 extremities, pedal pulses palpated Objective Labs 11/13/24 05:28 11/13/24 05:28 Labs: Laboratory Results - last 24 hr 11/12/24 11/12/24 11/13/24 15:12 20:54 05:28 WBC 19.2 H D RBC 2.50 L Hgb 7.7 L Hct 24.1 L MCV 96 MCH 30.8 MCHC 32.0 RDW Std Deviation 64.1 H Plt Count 286 D Neut % (Auto) 71 Lymph % (Auto) 20 [place] % (Auto) 7 Eos % (Auto) 0 Baso % (Auto) 0 Neut # (Auto) 13.7 H Lymph # (Auto) 3.8 [place] # (Auto) 1.4 H Eos # (Auto) 0.0 Baso # (Auto) 0.0 Immature Gran # (Auto) 0.25 H Absolute Nucleated RBC 0.05 H Immature Gran % 1 H Nucleated RBC % 0 Sodium 139 Potassium 4.6 Chloride 99 Carbon Dioxide 31.2 H Anion Gap 9 BUN 19 Creatinine 0.6 Estim Creat Clear Calc 88.2 eGFR > 60 BUN/Creatinine Ratio 32 H Glucose 110 H D Calculated Osmolality 280 Calcium 9.4 Corrected Calcium 9.8 Phosphorus 2.8 Magnesium 1.9 Total Bilirubin 0.2 L AST 10 ALT < 7 L Alkaline Phosphatase 53 Total Protein 6.1 Albumin 3.5 Globulin 2.6 Albumin/Globulin Ratio 1.3 Stool for White Cells Negative Stl C. diff Tox B Gene Positive A Vancomycin Trough 26.0 H* ABG Interpretation ABG results: 11/10/24 05:33 ABG pH 7.38 ABG pCO2 47 ABG pO2 88 ABG HCO3 28 H ABG O2 Saturation 98 ABG Base Excess 2 Quality Measures Quality Measures VTE prophylaxis Advance care planning discussed with:: other Assessment & Plan Assessment Current Active Medications: Generic Name Dose Route Start Last Admin Trade Name Freq PRN Reason Stop Dose Admin Acetaminophen 650 mg 11/11/24 08:22 Acetaminophen Ericka 325 Mg/10 Ml Udc GT 12/10/24 09:50 Q6H PRN Fever >100.3 Albuterol/Ipratropium 3 ml 11/10/24 10:00 Albuterol/Ipratropium (Duoneb) Rt Ericka 3 Ml Nebu INH 12/10/24 10:59 Q4HRRT PRN WHEEZING Artificial Tears 2 drop 11/11/24 08:30 11/13/24 05:57 Artificial Tears 225 Drop/15 Ml Btl BOTH EYES 12/11/24 08:29 2 drop Q8HR JAYMIE Administration Aspirin 81 mg 11/11/24 09:00 11/13/24 09:02 Aspirin 81 Mg Chew GT 12/11/24 08:59 81 mg QDAY JAYMIE Administration Atorvastatin Calcium 40 mg 11/11/24 21:00 11/12/24 20:17 Atorvastatin Calcium 20 Mg Tablet GT 12/11/24 20:59 40 mg HS JAYMIE Administration Buspirone HCl 10 mg 11/11/24 09:00 11/13/24 09:02 Buspirone Hcl 5 Mg Tablet GT 12/11/24 08:59 10 mg BID JAYMIE Administration Dextrose 25 ml 11/11/24 08:20 Dextrose 50%-Water Inj 50 Ml Syringe IV 12/11/24 08:19 Q15MIN PRN BG 50-70 responsive npo pt Dextrose 50 ml 11/11/24 08:20 Dextrose 50%-Water Inj 50 Ml Syringe IV 12/11/24 08:19 Q15MIN PRN BG <50 OR BG <70 & pt unresponsive Fluconazole 200 mg 11/12/24 21:00 11/13/24 09:02 Fluconazole Susp 40 Mg/Ml Ml GT 11/19/24 20:59 200 mg BID JAYMIE Administration Protocol Glucagon 1 mg 11/11/24 08:20 Glucagon Inj 1 Mg Vial IM Q15MIN PRN BG <70, and no IV access Heparin Sodium (Porcine) 5,000 unit 11/10/24 10:00 11/13/24 09:02 Heparin Sod Inj 5000 Unit/Ml Vial SC 11/24/24 09:59 5,000 unit Q12HR JAYMIE Administration Cefepime HCl 2 gm/ Sodium 50 mls @ 100 mls/hr 11/10/24 09:59 11/13/24 05:51 Chloride IV 11/17/24 09:58 100 mls/hr Q8HR JAYMIE Administration Vancomycin HCl 200 mls @ 120 mls/hr 11/13/24 10:00 11/13/24 10:31 Vancomycin/Water 1gm Ivpb IV 11/20/24 09:59 120 mls/hr BID@1000,2200 JAYMIE Administration Protocol Insulin Human Lispro 0 unit 11/11/24 08:30 11/13/24 06:01 Insulin Lispro (Admelog) 1 Unit/0.01 Ml Unit SC 12/11/24 08:29 Not Given Q6HR JAYMIE Protocol Levetiracetam 1,000 mg 11/11/24 09:00 11/13/24 09:02 Levetiracetam Liqd 500 Mg/5 Ml [facility] GT 12/11/24 08:59 1,000 mg BID JAYMIE Administration Ondansetron HCl 4 mg 11/10/24 09:51 Ondansetron Inj 2 Mg/Ml Inj 2 Ml IVP 12/10/24 09:50 Q6H PRN NAUSEA OR VOMITING Protocol Pantoprazole Sodium 40 mg 11/10/24 17:30 11/13/24 09:02 Pantoprazole Inj 40 Mg Vial IVP 12/10/24 17:29 40 mg QDAY JAYMIE Administration Pharmacy Consult 1 each 11/10/24 10:00 Vancomycin Pharmacy To Dose 1 Each Each IV 12/10/24 09:59 QDAY PRN CONSULT Valproic Acid 500 mg 11/11/24 14:00 11/13/24 05:55 Valproic Acid Syrup 250 Mg/5 Ml [facility] GT 12/11/24 13:59 500 mg TID JAYMIE Administration Plan Plan Ms. Ennis is a 69-year-old female past medical history significant for epilepsy, hypertension, hyperlipidemia, diabetes mellitus presented to the ED from subacute after found to have fever and leukocytosis. Pt is admitted to inpatient services for treatment of Pneumonia and UTI requiring IV antibiotics. #Leukocytosis secondary to #HCAP vs. VAP #Acute pyelonephritis #Lactic acidosis- resolving -On admission WBC count was 44.2, patient had fever of 102.6, lactic acid 7.3 -> 5.0, Procalcitonin 5.05 - Patient was treated at the subacute with ceftriaxone 1 g for 4 days and failed outpatient therapy -Urinalysis was positive for leukocyte esterase, hematuria for, pyuria 42 and rare bacteriuria. Patient does not have a Hobson catheter -SIRS 4 /4 tachycardia, tachypnea, fever 102.6, lactic acidosis with no evidence of endorgan damage Chest x-ray is evident of significant bilateral pneumonia CT chest/abdomen/pelvis-significant bilateral pneumonia, mild associated heart failure, moderate renal parenchymal scar formation with perinephric stranding, cystitis pattern. Discontinued Solu-Medrol - Urine cultures positive for GPC - Previous coccidiodes IgM antibody negative (09/16/24) - C. difficile PCR positive (11/12/24) - Discontinue fluconazole ( 11/11/24- 11/13/24) - Discontinue cefepime (11/10/24- 11/13/24 Plan: In the ED patient received 3 L of IV fluids - Started fidaxomicin 200 mg BID (11/13/24)- - Started levoquin 750mg (11/13/24)- - Continue vancomycin pharmacy to dose (11/10- - Continue to monitor CBC and lactic acidosis - DuoNebs every 4 hours as needed - Blood culture no growth after 48hrs, continue to monitor - Stopped IV fluids - Stool studies ordered - Pending fungal cultures # Acute anemia 2/2 Etiology unknown, since there is no evidence of hematemesis, melena and hematochezia. Will order follow workup. Patient H/H downtreading, HgB 7.6, Hct 24.6 Vit B12 - 1462, Reticulocyte count 3.7, iron 45, TIBC 316 Plan - Blood smear pathology pending - Continue to monitor H&H #Type 2 Diabetes mellitus- controlled 09/24/2024 A1c 5.9, glucose on admission 142. Plan -Continue with sliding scale insulin -Hypoglycemic protocol if needed #Epilepsy -Continue patient's home Keppra and valproic acid via G-tube #Hyperlipidemia #Primary hypertension Plan -Continue home Atorvastatin 40 mg at bedtime -BP on admission is soft, will hold resuming home antihypertensive and continue to monitor BP #Tracheostomy Plan -Continue with airway suctioning as needed and tracheostomy maintenance with RT - Trach change, completed #PEG tube Resume feeds as was from subacute facility. -dietary team consulted, on board Health Maintenance Disposition: telemetry for IV antibiotics for HCAP vs. VAP and UTI DVT Prophylaxis: Heparin 5000 units SC Q12 hrs GI Prophylaxis: Pantoprozol-40 IVP Qday Diet: resumed PEG tube feeds Lines: Peripheral lines Code status: DNR Patient seen and assessed under supervision of attending physician and discuss with senior resident Dr. Montalvo PGY-2 Gabbie Whittington MD PGY-1, Internal Medicine Attending Provider Attestation/Addendum I attest that I was physically present for the evaluation, physical examination, lab and imaging review of the patient with the residents. I discussed the case with the residents and agree with the findings and plans of care as documented above. At bedside today, patient appears comfortable. WBC count has been improving. We will switch her antibiotics to levofloxacin and vancomycin IV to cover for pneumonia and UTI based on culture results from 11/10/2024 and her previous ET secretion culture. Patient also tested positive for C. difficile, we will start her on fidaxomicin. Fungal culture is pending, with new findings on cultures and C. difficile, we will discontinue fluconazole and monitor her closely. Yu Patel MD
[2024-11-13] MEDS: LEVOFLOXACIN/D5W 750MG IVPB 750 MG/150 ML BAG 100 MG IV (12:24)
--- NOTE | 2024-11-13 19:00 | PC.NURSE ---
Report received, pt resting no s/s of distress, trach in place able to be visualized from station.
--- NOTE | 2024-11-13 19:35 | ESPR_ITS ---
Subjective Subjective Interval history: name added to list late. pos cdiff. abn cxr. has a trach. no noted primary provider but is at our subacute and has a trach. resp rate variable Exam Vital Signs Temp Pulse Resp BP Pulse Ox O2 Del Method FiO2 97.0 F 70 34 H 133/71 H 98 Trach Collar 40 11/13/24 16:00 11/13/24 18:55 11/13/24 18:55 11/13/24 16:00 11/13/24 18:55 11/13/24 16:00 11/13/24 18:55 Objective - Internal Medicine Labs 11/13/24 05:28 11/13/24 05:28 Labs: Laboratory Results - last 24 hr 11/12/24 11/12/24 11/13/24 15:12 20:54 05:28 WBC 19.2 H D RBC 2.50 L Hgb 7.7 L Hct 24.1 L MCV 96 MCH 30.8 MCHC 32.0 RDW Std Deviation 64.1 H Plt Count 286 D Neut % (Auto) 71 Lymph % (Auto) 20 [place] % (Auto) 7 Eos % (Auto) 0 Baso % (Auto) 0 Neut # (Auto) 13.7 H Lymph # (Auto) 3.8 [place] # (Auto) 1.4 H Eos # (Auto) 0.0 Baso # (Auto) 0.0 Immature Gran # (Auto) 0.25 H Absolute Nucleated RBC 0.05 H Immature Gran % 1 H Nucleated RBC % 0 Sodium 139 Potassium 4.6 Chloride 99 Carbon Dioxide 31.2 H Anion Gap 9 BUN 19 Creatinine 0.6 Estim Creat Clear Calc 88.2 eGFR > 60 BUN/Creatinine Ratio 32 H Glucose 110 H D Calculated Osmolality 280 Calcium 9.4 Corrected Calcium 9.8 Phosphorus 2.8 Magnesium 1.9 Total Bilirubin 0.2 L AST 10 ALT < 7 L Alkaline Phosphatase 53 Total Protein 6.1 Albumin 3.5 Globulin 2.6 Albumin/Globulin Ratio 1.3 Stl C. diff Tox B Gene Positive A Vancomycin Trough 26.0 H* ABG Interpretation ABG results: 11/10/24 05:33 ABG pH 7.38 ABG pCO2 47 ABG pO2 88 ABG HCO3 28 H ABG O2 Saturation 98 ABG Base Excess 2 Assessment & Plan A&P Narrative cdiff pos. abn cxr ppi can exacerbate cdif test is only for the germ and not for toxin but wbc high will stop other abx for now and focus on cdiff Time Spent With Patient Time: Total time spent is greater than 50% in coordination of care (as documented) at patient's floor/unit and/or counseling patient:
[2024-11-13] MEDS: FIDAXOMICIN 200 MG TABLET (NON-FORMULARY) GT (21:10)
[2024-11-13] MEDS: ATORVASTATIN CALCIUM 20 MG TABLET 40 MG GT (21:11)
[2024-11-14] VITALS (15 sets, daily range): BP systolic 107–147; BP diastolic 61–85; PULSE 67–92; RESP 18–33; TEMP 36.1–36.9; O2SAT 96–99; BMI 33.2
[2024-11-14] MEDS: Artificial Tears 225 DROP/15 ML BTL BOTH EYES ×3 (05:12→21:00)
[2024-11-14 05:48] LABS: Basophils # (Auto) 0.1 Thou/mm3 (0.0-0.2); Basophils % (Auto) 1 % (0-2.5); Eosinophils # (Auto) 0.2 Thou/mm3 (0.0-0.5); Eosinophils % (Auto) 1 % (0-10); Hematocrit 27.0 % (36.0-46.0); Immature Granulocytes Auto 0.57 Thou/mm3 (0.00-0.00); Lymphocytes # (Auto) 3.1 Thou/mm3 (1.0-4.8); Lymphocytes % (Auto) 19 % (10-50); Mean Corpuscular HGB Conc 31.9 g/dl (31.0-37.0); Mean Corpuscular Hemoglobin 30.0 pg (25.0-35.0); Mean Corpuscular Volume 94 fL (80-100); Monocytes # (Auto) 1.3 Thou/mm3 (0.0-0.8); Monocytes % (Auto) 8 % (0-12); Neutrophils # (Auto) 11.4 Thou/mm3 (1.8-7.7); Neutrophils % (Auto) 69 % (37-80); Nucleated Red Blood Cell # 0.03 Thou/mm3 (0.00-0.00); Nucleated Red Blood Cell % 0 /100 WBC (0); Platelet Count 194 Thou/mm3 (140-440); RDW Standard Deviation 60.8 fL (36.4-46.3); Red Blood Count 2.87 Miln/mm3 (4.00-5.20); White Blood Count 16.6 Thou/mm3 (3.6-11.0)
[2024-11-14 05:49] LABS: Hemoglobin 8.6 g/dL (12.0-16.0)
[2024-11-14 06:32] LABS: Alanine Aminotransferase < 7 U/L (10-49); Albumin, Serum 3.6 gm/dL (3.4-4.8); Albumin/Globulin Ratio 1.6 (1.2-2.2); Alkaline Phosphatase 56 U/L (46-116); Anion Gap 9 (7-16); Aspartate Amino Transferase 14 U/L (0-34); BUN/Creatinine Ratio 33 Ratio (12-20); Bilirubin,Total 0.2 mg/dL (0.3-1.2); Blood Urea Nitrogen 20 mg/dL (9-23); Calcium 9.4 mg/dL (8.3-10.6); Calcium (Corrected) 9.7 mg/dL (8.5-10.1); Carbon Dioxide 31.0 mMol/L (20.0-31.0); Chloride 97 mMol/L (98-107); Creatinine (Component) 0.6 mg/dL (0.6-1.3); Estimated Creatinine Clearance 88.2 mL/min (>60); Globulin 2.3 gm/dL (2.3-3.5); Glucose 123 mg/dL (74-106); Osmolality,Calculated 277 (275-295); Potassium 4.7 mMol/L (3.4-5.1); Sodium 137 mMol/L (136-145); Total Protein 5.9 gm/dL (5.7-8.2); eGFR > 60 See Note
[2024-11-14 07:20] LABS: B-Type Natriuretic Peptide 76 pg/mL (0-100)
[2024-11-14 07:33] LABS: Hepatitis C Antibody Non Reactive (Non React)
[2024-11-14] MEDS: FIDAXOMICIN 200 MG TABLET (NON-FORMULARY) GT ×2 (09:55→20:39)
[2024-11-14] MEDS: HEPARIN SOD INJ 5000 UNIT/ML VIAL SC ×2 (09:55→20:41)
[2024-11-14] MEDS: levETIRAcetam LIQD 500 MG/5 ML UDC 1000 MG GT ×2 (09:55→20:39)
[2024-11-14] MEDS: ASPIRIN 81 MG CHEW GT (09:55)
--- NOTE | 2024-11-14 10:05 | ESPR_ITS ---
<Statement entered by Yuri Montalvo MD - 11/14/24 22:30> Pt's stool is positive for C. diff, due to recurrent C. diff infection pt is started on fidoxomicin (will continue 200mg BID x 5days follow by 200mg every other day for 20 days to complete the taper course for 20 days). Patient was seen and examined by me personally. I have directly supervised and reviewed documentation by the team resident and agree with its findings. ------- Plan of care was discussed with the attending, Dr. Amanda Montalvo, PGY-2 Documentation for date of: 11/14/24 Subjective Subjective Interval history: No acute events overnight Today patient was seen and examined at bedside. Saturating well on mechanical ventilation. Vitals are within normal limit AM labs reviewed. WBC downtrending to 16.6. H/H still low but improving. Patient at 2 loose stools today. Discontinue vancomycin (11/10/24- 11/13/24) Discontinue levoquin on 11/13 Continue fidaxomicin 200 mg BID (11/13/24).Per pharmacy rec on discharge titrate 200mg once everyother day x 20 days starting 11/19/24 Exam Vital Signs Temp Pulse Resp BP Pulse Ox O2 Del Method FiO2 97.3 F 84 18 112/85 H 96 Mechanical Ventilation 40 11/14/24 08:00 11/14/24 08:00 11/14/24 08:00 11/14/24 08:00 11/14/24 08:00 11/14/24 08:00 11/14/24 08:00 Narrative Exam GENERAL: Awake, non-verbal however does respond with eye movement and head nods, s/p tracheostomy, VENT and PEG dependent. NEURO: unable to asses however patient is able to follow commands such as squeezing fingers and moving toes HEENT: Atraumatic, Normocephalic. mucous membranes moist. Eyes open, symmetrical, & clear HEART: Normal Heart Sounds LUNGS: Tracheostomy tube in place, coarse breath sounds and bilateral crackles heard, no wheezing ABDOMEN: soft, non-distended, non-tender, bowel sounds heard, no guarding or rebound tenderness SKIN: No Rash or ecchymoses, no decubitus ulcer or open wounds. EXTREMITIES: 1+ edema bilaterally in LE and +1 on UE ( improving), no tenderness, able to move all 4 extremities, pedal pulses palpated Objective Labs 11/14/24 05:20 11/14/24 05:20 Labs: Laboratory Results - last 24 hr 11/12/24 11/14/24 15:12 05:20 WBC 16.6 H RBC 2.87 L Hgb 8.6 L Hct 27.0 L MCV 94 MCH 30.0 MCHC 31.9 RDW Std Deviation 60.8 H Plt Count 194 D Neut % (Auto) 69 Lymph % (Auto) 19 [place] % (Auto) 8 Eos % (Auto) 1 Baso % (Auto) 1 Neut # (Auto) 11.4 H Lymph # (Auto) 3.1 [place] # (Auto) 1.3 H Eos # (Auto) 0.2 Baso # (Auto) 0.1 Immature Gran # (Auto) 0.57 H Absolute Nucleated RBC 0.03 H Immature Gran % 3 H Nucleated RBC % 0 Sodium 137 Potassium 4.7 Chloride 97 L Carbon Dioxide 31.0 Anion Gap 9 BUN 20 Creatinine 0.6 Estim Creat Clear Calc 88.2 eGFR > 60 BUN/Creatinine Ratio 33 H Glucose 123 H Calculated Osmolality 277 Calcium 9.4 Corrected Calcium 9.7 Total Bilirubin 0.2 L AST 14 ALT < 7 L Alkaline Phosphatase 56 B-Natriuretic Peptide 76 Total Protein 5.9 Albumin 3.6 Globulin 2.3 Albumin/Globulin Ratio 1.6 Stl C. diff Tox B Gene Positive A Hepatitis C Antibody Non Reactive ABG Interpretation ABG results: 11/10/24 05:33 ABG pH 7.38 ABG pCO2 47 ABG pO2 88 ABG HCO3 28 H ABG O2 Saturation 98 ABG Base Excess 2 Quality Measures Quality Measures VTE prophylaxis Advance care planning discussed with:: other Assessment & Plan Assessment Current Active Medications: Generic Name Dose Route Start Last Admin Trade Name Freq PRN Reason Stop Dose Admin Acetaminophen 650 mg 11/11/24 08:22 Acetaminophen Ericka 325 Mg/10 Ml Udc GT 12/10/24 09:50 Q6H PRN Fever >100.3 Albuterol/Ipratropium 3 ml 11/10/24 10:00 Albuterol/Ipratropium (Duoneb) Rt Ericka 3 Ml Nebu INH 12/10/24 10:59 Q4HRRT PRN WHEEZING Artificial Tears 2 drop 11/11/24 08:30 11/14/24 05:12 Artificial Tears 225 Drop/15 Ml Btl BOTH EYES 12/11/24 08:29 2 drop Q8HR JAYMIE Administration Aspirin 81 mg 11/11/24 09:00 11/13/24 09:02 Aspirin 81 Mg Chew GT 12/11/24 08:59 81 mg QDAY JAYMIE Administration Atorvastatin Calcium 40 mg 11/11/24 21:00 11/13/24 21:11 Atorvastatin Calcium 20 Mg Tablet GT 12/11/24 20:59 40 mg HS JAYMIE Administration Buspirone HCl 10 mg 11/11/24 09:00 11/13/24 21:11 Buspirone Hcl 5 Mg Tablet GT 12/11/24 08:59 10 mg BID JAYMIE Administration Dextrose 25 ml 11/11/24 08:20 Dextrose 50%-Water Inj 50 Ml Syringe IV 12/11/24 08:19 Q15MIN PRN BG 50-70 responsive npo pt Dextrose 50 ml 11/11/24 08:20 Dextrose 50%-Water Inj 50 Ml Syringe IV 12/11/24 08:19 Q15MIN PRN BG <50 OR BG <70 & pt unresponsive Fidaxomicin 200 mg 11/13/24 21:00 11/13/24 21:10 Fidaxomicin 200 Mg Tablet (Non-Formulary) GT 11/20/24 20:59 200 mg BID JAYMIE Administration Protocol Glucagon 1 mg 11/11/24 08:20 Glucagon Inj 1 Mg Vial IM Q15MIN PRN BG <70, and no IV access Heparin Sodium (Porcine) 5,000 unit 11/10/24 10:00 11/13/24 21:11 Heparin Sod Inj 5000 Unit/Ml Vial SC 11/24/24 09:59 5,000 unit Q12HR JAYMIE Administration Insulin Human Lispro 0 unit 11/11/24 08:30 11/14/24 05:15 Insulin Lispro (Admelog) 1 Unit/0.01 Ml Unit SC 12/11/24 08:29 Not Given Q6HR [facility] Protocol Levetiracetam 1,000 mg 11/11/24 09:00 11/13/24 21:10 Levetiracetam Liqd 500 Mg/5 Ml Udc GT 12/11/24 08:59 1,000 mg BID JAYMIE Administration Ondansetron HCl 4 mg 11/10/24 09:51 Ondansetron Inj 2 Mg/Ml Inj 2 Ml IVP 12/10/24 09:50 Q6H PRN NAUSEA OR VOMITING Protocol Plan Ms. Ennis is a 69-year-old female past medical history significant for epilepsy, hypertension, hyperlipidemia, diabetes mellitus presented to the ED from subacute after found to have fever and leukocytosis. Pt is admitted to inpatient services for treatment of Pneumonia and UTI requiring IV antibiotics. #Leukocytosis secondary to #HCAP vs. VAP #Acute pyelonephritis #Lactic acidosis- resolving -On admission WBC count was 44.2, patient had fever of 102.6, lactic acid 7.3 -> 5.0, Procalcitonin 5.05 - Patient was treated at the subacute with ceftriaxone 1 g for 4 days and failed outpatient therapy -Urinalysis was positive for leukocyte esterase, hematuria for, pyuria 42 and rare bacteriuria. Patient does not have a Hobson catheter -SIRS 4 /4 tachycardia, tachypnea, fever 102.6, lactic acidosis with no evidence of endorgan damage Chest x-ray is evident of significant bilateral pneumonia CT chest/abdomen/pelvis-significant bilateral pneumonia, mild associated heart failure, moderate renal parenchymal scar formation with perinephric stranding, cystitis pattern. Discontinued Solu-Medrol - Urine cultures positive for GPC - Previous coccidiodes IgM antibody negative (09/16/24) - C. difficile PCR positive (11/12/24) - Discontinue fluconazole ( 11/11/24- 11/13/24) - Discontinue cefepime (11/10/24- 11/13/24 - Discontinue vancomycin (11/10/24- 11/13/24) - Discontinue levoquin 750mg (11/13/24)- Plan: In the ED patient received 3 L of IV fluids - Started fidaxomicin 200 mg BID (11/13/24), on discharge titrate to - Continue to monitor CBC - DuoNebs every 4 hours as needed - Blood culture no growth after 48hrs, continue to monitor - Stopped IV fluids - Stool studies ordered - Pending fungal cultures # Acute anemia 2/2- improving Etiology unknown, since there is no evidence of hematemesis, melena and hematochezia. Will order follow workup. Patient H/H downtreading, HgB 7.6, Hct 24.6 Vit B12 - 1462, Reticulocyte count 3.7, iron 45, TIBC 316 Plan - Blood smear pathology pending - Continue to monitor H&H #Type 2 Diabetes mellitus- controlled 09/24/2024 A1c 5.9, glucose on admission 142. Plan -Continue with sliding scale insulin -Hypoglycemic protocol if needed #Epilepsy -Continue patient's home Keppra and valproic acid via G-tube #Hyperlipidemia #Primary hypertension Plan -Continue home Atorvastatin 40 mg at bedtime -BP on admission is soft, will hold resuming home antihypertensive and continue to monitor BP #Tracheostomy Plan -Continue with airway suctioning as needed and tracheostomy maintenance with RT - Trach change, completed #PEG tube Resume feeds as was from subacute facility. -dietary team consulted, on board Health Maintenance Disposition: telemetry for IV antibiotics for HCAP vs. VAP and UTI DVT Prophylaxis: Heparin 5000 units SC Q12 hrs GI Prophylaxis: Pantoprozol-40 IVP Qday Diet: PEG tube feeds Lines: Peripheral lines Code status: DNR Patient seen and assessed under supervision of attending physician and discuss with senior resident Dr. Montalvo PGY-2 Gabbie Whittington MD PGY-1, Internal Medicine Attending Provider Attestation/Addendum I attest that I was physically present for the evaluation, physical examination, lab and imaging review of the patient with the residents. I discussed the case with the residents and agree with the findings and plans of care as documented above. At bedside today, patient appears comfortable. WBC count continues to improve. Had several loose bowel movements yesterday. Diarrhea has slowed down, 2 episodes today. Since patient has recurrent episode of C. difficile, we will continue with tapering dose of fidaxomicin. We will continue to monitor stool. Yu Patel MD
--- NOTE | 2024-11-14 14:19 | PC.SS ---
SS spoke to Destiny, manager sales training from [facility] who explained they are able to accept pt back on Monday with loose stools.
[2024-11-14] MEDS: ATORVASTATIN CALCIUM 20 MG TABLET 40 MG GT (20:40)
[2024-11-15] VITALS (10 sets, daily range): BP systolic 100–123; BP diastolic 63–70; PULSE 55–89; RESP 17–36; TEMP 36.1–36.7; O2SAT 95–99; BMI 33.2
[2024-11-15] MEDS: Artificial Tears 225 DROP/15 ML BTL BOTH EYES ×3 (05:11→21:54)
[2024-11-15 06:26] LABS: Basophils # (Auto) 0.1 Thou/mm3 (0.0-0.2); Basophils % (Auto) 1 % (0-2.5); Eosinophils # (Auto) 0.2 Thou/mm3 (0.0-0.5); Eosinophils % (Auto) 1 % (0-10); Hematocrit 27.9 % (36.0-46.0); Hemoglobin 8.9 g/dL (12.0-16.0); Immature Granulocytes Auto 0.80 Thou/mm3 (0.00-0.00); Lymphocytes # (Auto) 3.2 Thou/mm3 (1.0-4.8); Lymphocytes % (Auto) 19 % (10-50); Mean Corpuscular HGB Conc 31.9 g/dl (31.0-37.0); Mean Corpuscular Hemoglobin 30.7 pg (25.0-35.0); Mean Corpuscular Volume 96 fL (80-100); Monocytes # (Auto) 1.5 Thou/mm3 (0.0-0.8); Monocytes % (Auto) 9 % (0-12); Neutrophils # (Auto) 10.8 Thou/mm3 (1.8-7.7); Neutrophils % (Auto) 65 % (37-80); Nucleated Red Blood Cell # 0.00 Thou/mm3 (0.00-0.00); Nucleated Red Blood Cell % 0 /100 WBC (0); Platelet Count 360 Thou/mm3 (140-440); RDW Standard Deviation 63.1 fL (36.4-46.3); Red Blood Count 2.90 Miln/mm3 (4.00-5.20); White Blood Count 16.6 Thou/mm3 (3.6-11.0)
[2024-11-15 07:04] LABS: Alanine Aminotransferase < 7 U/L (10-49); Albumin, Serum 3.8 gm/dL (3.4-4.8); Albumin/Globulin Ratio 1.3 (1.2-2.2); Alkaline Phosphatase 60 U/L (46-116); Anion Gap 9 (7-16); Aspartate Amino Transferase < 10 U/L (0-34); BUN/Creatinine Ratio 30 Ratio (12-20); Bilirubin,Total 0.3 mg/dL (0.3-1.2); Blood Urea Nitrogen 18 mg/dL (9-23); Calcium 9.3 mg/dL (8.3-10.6); Calcium (Corrected) 9.5 mg/dL (8.5-10.1); Carbon Dioxide 33.6 mMol/L (20.0-31.0); Chloride 94 mMol/L (98-107); Creatinine (Component) 0.6 mg/dL (0.6-1.3); Estimated Creatinine Clearance 88.2 mL/min (>60); Globulin 3.0 gm/dL (2.3-3.5); Glucose 123 mg/dL (74-106); Magnesium 2.1 mg/dL (1.6-2.6); Osmolality,Calculated 276 (275-295); Phosphorous 3.0 mg/dL (2.4-5.1); Potassium 4.3 mMol/L (3.4-5.1); Sodium 137 mMol/L (136-145); Total Protein 6.8 gm/dL (5.7-8.2); eGFR > 60 See Note
[2024-11-15] MEDS: levETIRAcetam LIQD 500 MG/5 ML UDC 1000 MG GT ×2 (08:19→21:53)
[2024-11-15] MEDS: HEPARIN SOD INJ 5000 UNIT/ML VIAL SC ×2 (08:19→21:55)
[2024-11-15] MEDS: FIDAXOMICIN 200 MG TABLET (NON-FORMULARY) GT (08:20)
[2024-11-15] MEDS: ASPIRIN 81 MG CHEW GT (08:20)
--- NOTE | 2024-11-15 09:37 | ESPR_ITS ---
Subjective Subjective Interval history: dificid not better than vanco with a taper. Exam Vital Signs Temp Pulse Resp BP Pulse Ox O2 Del Method FiO2 98.1 F 78 17 113/67 98 Mechanical Ventilation 40 11/15/24 08:00 11/15/24 08:00 11/15/24 08:00 11/15/24 08:00 11/15/24 08:00 11/15/24 08:00 11/15/24 06:21 Narrative Exam on vent at 40 %. baseline unknown. not interactice is listed as dnr. but not comfort only. Objective - Internal Medicine Labs 11/15/24 04:18 11/15/24 04:18 Labs: Laboratory Results - last 24 hr 11/15/24 04:18 WBC 16.6 H RBC 2.90 L Hgb 8.9 L Hct 27.9 L MCV 96 MCH 30.7 MCHC 31.9 RDW Std Deviation 63.1 H Plt Count 360 D Neut % (Auto) 65 Lymph % (Auto) 19 [place] % (Auto) 9 Eos % (Auto) 1 Baso % (Auto) 1 Neut # (Auto) 10.8 H Lymph # (Auto) 3.2 [place] # (Auto) 1.5 H Eos # (Auto) 0.2 Baso # (Auto) 0.1 Immature Gran # (Auto) 0.80 H Absolute Nucleated RBC 0.00 Immature Gran % 5 H Nucleated RBC % 0 Sodium 137 Potassium 4.3 Chloride 94 L Carbon Dioxide 33.6 H Anion Gap 9 BUN 18 Creatinine 0.6 Estim Creat Clear Calc 88.2 eGFR > 60 BUN/Creatinine Ratio 30 H Glucose 123 H Calculated Osmolality 276 Calcium 9.3 Corrected Calcium 9.5 Phosphorus 3.0 Magnesium 2.1 Total Bilirubin 0.3 AST < 10 ALT < 7 L Alkaline Phosphatase 60 Total Protein 6.8 Albumin 3.8 Globulin 3.0 Albumin/Globulin Ratio 1.3 ABG Interpretation ABG results: 11/10/24 05:33 ABG pH 7.38 ABG pCO2 47 ABG pO2 88 ABG HCO3 28 H ABG O2 Saturation 98 ABG Base Excess 2 Assessment & Plan A&P Narrative cdiff pos. abn cxr chronic rep failure chronic encephalopathy ppi can exacerbate cdif , so stopped it too as it is not a home med changed dificid to po vanco for remainder of 10d. test is only for the germ and not for toxin but wbc high, so ok to treat will stop other abx for now and focus on cdiff changed po dificid to po vanco please finish rx on monday 8/30 pm for 10d overall , then offer a vanco taper 125 tid for a week, then 125 bid for a week, then 125 daily for a week, then kefir yogurt for a month po. kefir is available at most markets but is a food, so is not prescribed. it was [facility]. Time Spent With Patient Time: Total time spent is greater than 50% in coordination of care (as documented) at patient's floor/unit and/or counseling patient:
--- NOTE | 2024-11-15 13:31 | ESPR_ITS ---
Documentation for date of: 11/15/24 Subjective Subjective Interval history: No acute event overnight. Patient had 1 moderate soft stool. The patient was seen and examined at bedside. Saturating well on mechanical ventilation. AM labs reviewed H&H improving. Vitals are within normal limit. Continue fidaxomicin 200 mg BID (11/13/24)- Pending subacute placement. Exam Vital Signs Temp Pulse Resp BP Pulse Ox O2 Del Method FiO2 98.1 F 78 17 113/67 98 Mechanical Ventilation 40 11/15/24 08:00 11/15/24 12:00 11/15/24 08:00 11/15/24 08:00 11/15/24 08:00 11/15/24 08:00 11/15/24 12:00 Narrative Exam GENERAL: Awake, non-verbal however does respond with eye movement and head nods, s/p tracheostomy, VENT and PEG dependent. NEURO: unable to asses however patient is able to follow commands such as squeezing fingers and moving toes HEENT: Atraumatic, Normocephalic. mucous membranes moist. Eyes open, symmetrical, & clear HEART: Normal Heart Sounds LUNGS: Tracheostomy tube in place, coarse breath sounds and bilateral crackles heard, no wheezing ABDOMEN: soft, non-distended, non-tender, bowel sounds heard, no guarding or rebound tenderness SKIN: No Rash or ecchymoses, no decubitus ulcer or open wounds. EXTREMITIES: 1+ edema bilaterally in LE and +1 on UE ( improving), no tenderness, able to move all 4 extremities, pedal pulses palpated Objective Labs 11/16/24 05:39 11/16/24 05:39 Labs: Laboratory Results - last 24 hr 11/15/24 04:18 WBC 16.6 H RBC 2.90 L Hgb 8.9 L Hct 27.9 L MCV 96 MCH 30.7 MCHC 31.9 RDW Std Deviation 63.1 H Plt Count 360 D Neut % (Auto) 65 Lymph % (Auto) 19 [place] % (Auto) 9 Eos % (Auto) 1 Baso % (Auto) 1 Neut # (Auto) 10.8 H Lymph # (Auto) 3.2 [place] # (Auto) 1.5 H Eos # (Auto) 0.2 Baso # (Auto) 0.1 Immature Gran # (Auto) 0.80 H Absolute Nucleated RBC 0.00 Immature Gran % 5 H Nucleated RBC % 0 Sodium 137 Potassium 4.3 Chloride 94 L Carbon Dioxide 33.6 H Anion Gap 9 BUN 18 Creatinine 0.6 Estim Creat Clear Calc 88.2 eGFR > 60 BUN/Creatinine Ratio 30 H Glucose 123 H Calculated Osmolality 276 Calcium 9.3 Corrected Calcium 9.5 Phosphorus 3.0 Magnesium 2.1 Total Bilirubin 0.3 AST < 10 ALT < 7 L Alkaline Phosphatase 60 Total Protein 6.8 Albumin 3.8 Globulin 3.0 Albumin/Globulin Ratio 1.3 ABG Interpretation ABG results: 11/10/24 05:33 ABG pH 7.38 ABG pCO2 47 ABG pO2 88 ABG HCO3 28 H ABG O2 Saturation 98 ABG Base Excess 2 Quality Measures Quality Measures VTE prophylaxis Advance care planning discussed with:: other Assessment & Plan Assessment Current Active Medications: Generic Name Dose Route Start Last Admin Trade Name Freq PRN Reason Stop Dose Admin Acetaminophen 650 mg 11/11/24 08:22 Acetaminophen Ericka 325 Mg/10 Ml Udc GT 12/10/24 09:50 Q6H PRN Fever >100.3 Albuterol/Ipratropium 3 ml 11/10/24 10:00 Albuterol/Ipratropium (Duoneb) Rt Ericka 3 Ml Nebu INH 12/10/24 10:59 Q4HRRT PRN WHEEZING Artificial Tears 2 drop 11/11/24 08:30 11/15/24 05:11 Artificial Tears 225 Drop/15 Ml Btl BOTH EYES 12/11/24 08:29 2 drop Q8HR JAYMIE Administration Aspirin 81 mg 11/11/24 09:00 11/15/24 08:20 Aspirin 81 Mg Chew GT 12/11/24 08:59 81 mg QDAY JAYMIE Administration Atorvastatin Calcium 40 mg 11/11/24 21:00 11/14/24 20:40 Atorvastatin Calcium 20 Mg Tablet GT 12/11/24 20:59 40 mg HS JAYMIE Administration Buspirone HCl 10 mg 11/11/24 09:00 11/15/24 08:19 Buspirone Hcl 5 Mg Tablet GT 12/11/24 08:59 10 mg BID JAYMIE Administration Dextrose 25 ml 11/11/24 08:20 Dextrose 50%-Water Inj 50 Ml Syringe IV 12/11/24 08:19 Q15MIN PRN BG 50-70 responsive npo pt Dextrose 50 ml 11/11/24 08:20 Dextrose 50%-Water Inj 50 Ml Syringe IV 12/11/24 08:19 Q15MIN PRN BG <50 OR BG <70 & pt unresponsive Glucagon 1 mg 11/11/24 08:20 Glucagon Inj 1 Mg Vial IM Q15MIN PRN BG <70, and no IV access Heparin Sodium (Porcine) 5,000 unit 11/10/24 10:00 11/15/24 08:19 Heparin Sod Inj 5000 Unit/Ml Vial SC 11/24/24 09:59 5,000 unit Q12HR JAYMIE Administration Insulin Human Lispro 0 unit 11/11/24 08:30 11/15/24 05:10 Insulin Lispro (Admelog) 1 Unit/0.01 Ml Unit SC 12/11/24 08:29 Not Given Q6HR JAYMIE Protocol Levetiracetam 1,000 mg 11/11/24 09:00 11/15/24 08:19 Levetiracetam Liqd 500 Mg/5 Ml Udc GT 12/11/24 08:59 1,000 mg BID JAYMIE Administration Ondansetron HCl 4 mg 11/10/24 09:51 Ondansetron Inj 2 Mg/Ml Inj 2 Ml IVP 12/10/24 09:50 Q6H PRN NAUSEA OR VOMITING Protocol Vancomycin HCl 125 mg 11/15/24 13:00 Vancomycin Oral Solution 25 Mg/Ml GT 11/22/24 12:59 Q6H JAYMIE Plan Ms. Ennis is a 69-year-old female past medical history significant for epilepsy, hypertension, hyperlipidemia, diabetes mellitus presented to the ED from [facility] after found to have fever and leukocytosis. Pt is admitted to inpatient services for treatment of Pneumonia and UTI requiring IV antibiotics. #Leukocytosis secondary to #HCAP vs. VAP #Acute pyelonephritis #Lactic acidosis- resolving -On admission WBC count was 44.2, patient had fever of 102.6, lactic acid 7.3 -> 5.0, Procalcitonin 5.05 - Patient was treated at the [facility] with ceftriaxone 1 g for 4 days and failed outpatient therapy -Urinalysis was positive for leukocyte esterase, hematuria for, pyuria 42 and rare bacteriuria. Patient does not have a Hobson catheter -SIRS 4 /4 tachycardia, tachypnea, fever 102.6, lactic acidosis with no evidence of endorgan damage Chest x-ray is evident of significant bilateral pneumonia CT chest/abdomen/pelvis-significant bilateral pneumonia, mild associated heart failure, moderate renal parenchymal scar formation with perinephric stranding, cystitis pattern. Discontinued Solu-Medrol - Urine cultures positive for GPC - Previous coccidiodes IgM antibody negative (09/16/24) - C. difficile PCR positive (11/12/24) - Discontinue fluconazole ( 11/11/24- 11/13/24) - Discontinue cefepime (11/10/24- 11/13/24 - Discontinue vancomycin (11/10/24- 11/13/24) - Discontinue levoquin 750mg (11/13/24) Plan: In the ED patient received 3 L of IV fluids - Continue fidaxomicin 200 mg BID (11/13/24) - Continue to monitor CBC - DuoNebs every 4 hours as needed - Blood culture no growth after 48hrs, continue to monitor - Stopped IV fluids - Stool studies ordered - Pending fungal cultures # Acute anemia 2/2- improving Etiology unknown, since there is no evidence of hematemesis, melena and hematochezia. Will order follow workup. Patient H/H downtreading, HgB 7.6, Hct 24.6 Vit B12 - 1462, Reticulocyte count 3.7, iron 45, TIBC 316 H/H improving Plan - Blood smear pathology pending - Continue to monitor H&H #Type 2 Diabetes mellitus- controlled 09/24/2024 A1c 5.9, glucose on admission 142. Plan -Continue with sliding scale insulin -Hypoglycemic protocol if needed #Epilepsy -Continue patient's home Keppra and valproic acid via G-tube #Hyperlipidemia #Primary hypertension Plan -Continue home Atorvastatin 40 mg at bedtime -BP on admission is soft, will hold resuming home antihypertensive and continue to monitor BP #Tracheostomy Plan -Continue with airway suctioning as needed and tracheostomy maintenance with RT - Trach change, completed #PEG tube Resume feeds as was from subacute facility. -dietary team consulted, on board Health Maintenance Disposition: telemetry for IV antibiotics for HCAP vs. VAP and UTI DVT Prophylaxis: Heparin 5000 units SC Q12 hrs GI Prophylaxis: Pantoprozol-40 IVP Qday Diet: PEG tube feeds Lines: Peripheral lines Code status: DNR Patient seen and assessed under supervision of attending physician and discuss with senior resident Dr. Montalvo PGY-2 Attending Provider Attestation/Addendum I attest that I was physically present for the evaluation, physical examination, lab and imaging review of the patient with the residents. I discussed the case with the residents and agree with the findings and plans of care as documented above. Yu Patel MD
[2024-11-15] MEDS: VANCOMYCIN 25 MG/ML 125 MG GT ×2 (14:28→21:54)
--- NOTE | 2024-11-15 15:18 | PC.SS ---
DATA OPERATIONS LEADER spoke to staff at subacute to see if they have medication, they stated they do not, DATA OPERATIONS LEADER relayed to doctors. DATA OPERATIONS LEADER inquired if patient could stay until Monday as subacute is short staffed on weekends, doctor said it was okay.
--- NOTE | 2024-11-15 16:16 | PC.SS ---
rounding note: pending med list to see if they have antibiotic at subacute.
[2024-11-15] MEDS: ATORVASTATIN CALCIUM 20 MG TABLET 40 MG GT (21:53)
[2024-11-16] VITALS (10 sets, daily range): BP systolic 100–120; BP diastolic 58–72; PULSE 73–107; RESP 18–36; TEMP 36–37; O2SAT 24–99; BMI 33.3
[2024-11-16] MEDS: VANCOMYCIN 25 MG/ML 125 MG GT ×5 (02:11→21:00)
[2024-11-16] MEDS: Artificial Tears 225 DROP/15 ML BTL BOTH EYES ×3 (05:11→21:00)
[2024-11-16 06:24] LABS: Basophils # (Auto) 0.2 Thou/mm3 (0.0-0.2); Basophils % (Auto) 1 % (0-2.5); Eosinophils # (Auto) 0.4 Thou/mm3 (0.0-0.5); Eosinophils % (Auto) 2 % (0-10); Hematocrit 27.4 % (36.0-46.0); Immature Granulocytes Auto 0.81 Thou/mm3 (0.00-0.00); Lymphocytes # (Auto) 3.9 Thou/mm3 (1.0-4.8); Lymphocytes % (Auto) 18 % (10-50); Mean Corpuscular HGB Conc 31.8 g/dl (31.0-37.0); Mean Corpuscular Hemoglobin 30.2 pg (25.0-35.0); Mean Corpuscular Volume 95 fL (80-100); Monocytes # (Auto) 2.4 Thou/mm3 (0.0-0.8); Monocytes % (Auto) 12 % (0-12); Neutrophils # (Auto) 13.5 Thou/mm3 (1.8-7.7); Neutrophils % (Auto) 64 % (37-80); Nucleated Red Blood Cell # 0.00 Thou/mm3 (0.00-0.00); Nucleated Red Blood Cell % 0 /100 WBC (0); Platelet Count 379 Thou/mm3 (140-440); RDW Standard Deviation 63.8 fL (36.4-46.3); Red Blood Count 2.88 Miln/mm3 (4.00-5.20); White Blood Count 21.1 Thou/mm3 (3.6-11.0)
[2024-11-16 06:26] LABS: Hemoglobin 8.7 g/dL (12.0-16.0)
[2024-11-16 06:54] LABS: Alanine Aminotransferase < 7 U/L (10-49); Albumin, Serum 3.7 gm/dL (3.4-4.8); Albumin/Globulin Ratio 1.2 (1.2-2.2); Alkaline Phosphatase 64 U/L (46-116); Anion Gap 10 (7-16); Aspartate Amino Transferase 10 U/L (0-34); BUN/Creatinine Ratio 28 Ratio (12-20); Bilirubin,Total 0.3 mg/dL (0.3-1.2); Blood Urea Nitrogen 17 mg/dL (9-23); Calcium 9.6 mg/dL (8.3-10.6); Calcium (Corrected) 9.8 mg/dL (8.5-10.1); Carbon Dioxide 32.5 mMol/L (20.0-31.0); Chloride 96 mMol/L (98-107); Creatinine (Component) 0.6 mg/dL (0.6-1.3); Estimated Creatinine Clearance 88.4 mL/min (>60); Globulin 3.1 gm/dL (2.3-3.5); Glucose 131 mg/dL (74-106); Magnesium 2.1 mg/dL (1.6-2.6); Osmolality,Calculated 279 (275-295); Phosphorous 3.1 mg/dL (2.4-5.1); Potassium 4.4 mMol/L (3.4-5.1); Sodium 138 mMol/L (136-145); Total Protein 6.8 gm/dL (5.7-8.2); eGFR > 60 See Note
[2024-11-16] MEDS: HEPARIN SOD INJ 5000 UNIT/ML VIAL SC ×2 (08:18→21:00)
[2024-11-16] MEDS: levETIRAcetam LIQD 500 MG/5 ML UDC 1000 MG GT ×2 (08:18→20:59)
[2024-11-16] MEDS: ASPIRIN 81 MG CHEW GT (08:18)
--- NOTE | 2024-11-16 13:44 | ESPR_ITS ---
Documentation for date of: 11/16/24 Subjective Subjective Interval history: Acute event overnight. No active vomiting. Infectious disease Dr. Gates stopped Fidaxomin and switched to vancomycin 125 Mg GT QID The patient was seen and examined at bedside. Vitals vitals are within normal limits, saturating 98% on mechanical ventilation. AM labs reviewed, significant for increase WBC of 21.1. Fungal cultures still pending Pending placement at subacute Exam Vital Signs Temp Pulse Resp BP Pulse Ox O2 Del Method FiO2 97.0 F 90 18 100/58 L 98 Mechanical Ventilation 40 11/16/24 12:00 11/16/24 12:00 11/16/24 12:00 11/16/24 12:00 11/16/24 12:00 11/16/24 12:00 11/16/24 12:00 Narrative Exam Narrative Exam GENERAL: Awake, non-verbal however does respond with eye movement and head nods, s/p tracheostomy, VENT and PEG dependent. NEURO: unable to asses however patient is able to follow commands such as squeezing fingers and moving toes HEENT: Atraumatic, Normocephalic. mucous membranes moist. Eyes open, symmetrical, & clear HEART: Normal Heart Sounds LUNGS: Tracheostomy tube in place, coarse breath sounds and bilateral crackles heard, no wheezing ABDOMEN: soft, non-distended, non-tender, bowel sounds heard, no guarding or rebound tenderness SKIN: No Rash or ecchymoses, no decubitus ulcer or open wounds. EXTREMITIES: 1+ edema bilaterally in LE and +1 on UE improving), no tenderness, able to move all 4 extremities, pedal pulses palpated PSYCHIATRY: sad effect Objective Labs 11/16/24 05:39 11/16/24 05:39 Labs: Laboratory Results - last 24 hr 11/16/24 05:39 WBC 21.1 H RBC 2.88 L Hgb 8.7 L Hct 27.4 L MCV 95 MCH 30.2 MCHC 31.8 RDW Std Deviation 63.8 H Plt Count 379 Neut % (Auto) 64 Lymph % (Auto) 18 [place] % (Auto) 12 Eos % (Auto) 2 Baso % (Auto) 1 Neut # (Auto) 13.5 H Lymph # (Auto) 3.9 [place] # (Auto) 2.4 H Eos # (Auto) 0.4 Baso # (Auto) 0.2 Immature Gran # (Auto) 0.81 H Absolute Nucleated RBC 0.00 Immature Gran % 4 H Nucleated RBC % 0 Sodium 138 Potassium 4.4 Chloride 96 L Carbon Dioxide 32.5 H Anion Gap 10 BUN 17 Creatinine 0.6 Estim Creat Clear Calc 88.4 eGFR > 60 BUN/Creatinine Ratio 28 H Glucose 131 H Calculated Osmolality 279 Calcium 9.6 Corrected Calcium 9.8 Phosphorus 3.1 Magnesium 2.1 Total Bilirubin 0.3 AST 10 ALT < 7 L Alkaline Phosphatase 64 Total Protein 6.8 Albumin 3.7 Globulin 3.1 Albumin/Globulin Ratio 1.2 ABG Interpretation ABG results: 11/10/24 05:33 ABG pH 7.38 ABG pCO2 47 ABG pO2 88 ABG HCO3 28 H ABG O2 Saturation 98 ABG Base Excess 2 Quality Measures Quality Measures VTE prophylaxis Advance care planning discussed with:: other Assessment & Plan Assessment Current Active Medications: Generic Name Dose Route Start Last Admin Trade Name Freq PRN Reason Stop Dose Admin Acetaminophen 650 mg 11/11/24 08:22 Acetaminophen Ericka 325 Mg/10 Ml Udc GT 12/10/24 09:50 Q6H PRN Fever >100.3 Albuterol/Ipratropium 3 ml 11/10/24 10:00 Albuterol/Ipratropium (Duoneb) Rt Ericka 3 Ml Nebu INH 12/10/24 10:59 Q4HRRT PRN WHEEZING Artificial Tears 2 drop 11/11/24 08:30 11/16/24 13:06 Artificial Tears 225 Drop/15 Ml Btl BOTH EYES 12/11/24 08:29 2 drop Q8HR JAYMIE Administration Aspirin 81 mg 11/11/24 09:00 11/16/24 08:18 Aspirin 81 Mg Chew GT 12/11/24 08:59 81 mg QDAY JAYMIE Administration Atorvastatin Calcium 40 mg 11/11/24 21:00 11/15/24 21:53 Atorvastatin Calcium 20 Mg Tablet GT 12/11/24 20:59 40 mg HS JAYMIE Administration Buspirone HCl 10 mg 11/11/24 09:00 11/16/24 08:18 Buspirone Hcl 5 Mg Tablet GT 12/11/24 08:59 10 mg BID JAYMIE Administration Dextrose 25 ml 11/11/24 08:20 Dextrose 50%-Water Inj 50 Ml Syringe IV 12/11/24 08:19 Q15MIN PRN BG 50-70 responsive npo pt Dextrose 50 ml 11/11/24 08:20 Dextrose 50%-Water Inj 50 Ml Syringe IV 12/11/24 08:19 Q15MIN PRN BG <50 OR BG <70 & pt unresponsive Glucagon 1 mg 11/11/24 08:20 Glucagon Inj 1 Mg Vial IM Q15MIN PRN BG <70, and no IV access Heparin Sodium (Porcine) 5,000 unit 11/10/24 10:00 11/16/24 08:18 Heparin Sod Inj 5000 Unit/Ml Vial SC 11/24/24 09:59 5,000 unit Q12HR JAYMIE Administration Insulin Human Lispro 0 unit 11/11/24 08:30 11/16/24 12:47 Insulin Lispro (Admelog) 1 Unit/0.01 Ml Unit SC 12/11/24 08:29 Not Given Q6HR JAYMIE Protocol Levetiracetam 1,000 mg 11/11/24 09:00 11/16/24 08:18 Levetiracetam Liqd 500 Mg/5 Ml Udc GT 12/11/24 08:59 1,000 mg BID JAYMIE Administration Ondansetron HCl 4 mg 11/10/24 09:51 Ondansetron Inj 2 Mg/Ml Inj 2 Ml IVP 12/10/24 09:50 Q6H PRN NAUSEA OR VOMITING Protocol Vancomycin HCl 125 mg 11/15/24 13:00 11/16/24 13:05 Vancomycin Oral Solution 25 Mg/Ml GT 11/22/24 12:59 125 mg Q6H JAYMIE Administration Plan Plan Ms. Ennis is a 69-year-old female past medical history significant for epilepsy, hypertension, hyperlipidemia, diabetes mellitus presented to the ED from subacute after found to have fever and leukocytosis. Pt is admitted to inpatient services for treatment of Pneumonia and UTI requiring IV antibiotics. #Leukocytosis secondary to #HCAP vs. VAP #Acute pyelonephritis #Lactic acidosis- resolving -On admission WBC count was 44.2, patient had fever of 102.6, lactic acid 7.3 -> 5.0, Procalcitonin 5.05 - Patient was treated at the subacute with ceftriaxone 1 g for 4 days and failed outpatient therapy -Urinalysis was positive for leukocyte esterase, hematuria for, pyuria 42 and rare bacteriuria. Patient does not have a Hobson catheter -SIRS 4 /4 tachycardia, tachypnea, fever 102.6, lactic acidosis with no evidence of endorgan damage Chest x-ray is evident of significant bilateral pneumonia CT chest/abdomen/pelvis-significant bilateral pneumonia, mild associated heart failure, moderate renal parenchymal scar formation with perinephric stranding, cystitis pattern. Discontinued Solu-Medrol - Urine cultures positive for GPC - Previous coccidiodes IgM antibody negative (09/16/24) - C. difficile PCR positive (11/12/24) - Discontinue fluconazole ( 11/11/24- 11/13/24) - Discontinue cefepime (11/10/24- 11/13/24 - Discontinue vancomycin (11/10/24- 11/13/24) - Discontinue levoquin 750mg (11/13/24) - Discontinue Fidaxomicin 200mg (11/13/24-11/15/24) Plan: In the ED patient received 3 L of IV fluids - Continue to monitor WBC trend - Resume vancomysin 11/16/24 - DuoNebs every 4 hours as needed - Blood culture no growth after 48hrs, continue to monitor - Stopped IV fluids - Stool studies ordered - Pending fungal cultures # Acute anemia 2/2- improving Etiology unknown, since there is no evidence of hematemesis, melena and hematochezia. Will order follow workup. Patient H/H downtreading, HgB 7.6, Hct 24.6 Vit B12 - 1462, Reticulocyte count 3.7, iron 45, TIBC 316 H/H improving Plan - Blood smear pathology pending - Continue to monitor H&H #Type 2 Diabetes mellitus- controlled 09/24/2024 A1c 5.9, glucose on admission 142. Plan -Continue with sliding scale insulin -Hypoglycemic protocol if needed #Epilepsy -Continue patient's home Keppra and valproic acid via G-tube #Hyperlipidemia #Primary hypertension Plan -Continue home Atorvastatin 40 mg at bedtime -BP on admission is soft, will hold resuming home antihypertensive and continue to monitor BP #Tracheostomy Plan -Continue with airway suctioning as needed and tracheostomy maintenance with RT - Trach change, completed #PEG tube Resume feeds as was from subacute facility. -dietary team consulted, on board Health Maintenance Disposition: telemetry for IV antibiotics for HCAP vs. VAP and UTI DVT Prophylaxis: Heparin 5000 units SC Q12 hrs GI Prophylaxis: Pantonix discontinued Diet: PEG tube feeds Lines: Peripheral lines Code status: DNR Patient seen and assessed under supervision of attending physician Dr.Bishwakarma Gabbie Whittington PGY1, Internal Medicine Attending Provider Attestation/Addendum I attest that I was physically present for the evaluation, physical examination, lab and imaging review of the patient with the residents. I discussed the case with the residents and agree with the findings and plans of care as documented above. Yu Patel MD
[2024-11-16] MEDS: ATORVASTATIN CALCIUM 20 MG TABLET 40 MG GT (20:59)
[2024-11-17] VITALS (14 sets, daily range): BP systolic 90–143; BP diastolic 59–84; PULSE 73–95; RESP 18–33; TEMP 36.1–36.6; O2SAT 98–99; BMI 33.3
[2024-11-17] MEDS: INSULIN LISPRO (AdmeLOG) 1 UNIT/0.01 ML UNIT SC (01:46)
[2024-11-17] MEDS: Artificial Tears 225 DROP/15 ML BTL BOTH EYES ×3 (05:11→21:00)
[2024-11-17 06:25] LABS: Basophils # (Auto) 0.1 Thou/mm3 (0.0-0.2); Basophils % (Auto) 1 % (0-2.5); Eosinophils # (Auto) 0.4 Thou/mm3 (0.0-0.5); Eosinophils % (Auto) 2 % (0-10); Hematocrit 25.6 % (36.0-46.0); Immature Granulocytes Auto 0.64 Thou/mm3 (0.00-0.00); Lymphocytes # (Auto) 4.4 Thou/mm3 (1.0-4.8); Lymphocytes % (Auto) 19 % (10-50); Mean Corpuscular HGB Conc 32.8 g/dl (31.0-37.0); Mean Corpuscular Hemoglobin 31.1 pg (25.0-35.0); Mean Corpuscular Volume 95 fL (80-100); Monocytes # (Auto) 3.4 Thou/mm3 (0.0-0.8); Monocytes % (Auto) 15 % (0-12); Neutrophils # (Auto) 13.8 Thou/mm3 (1.8-7.7); Neutrophils % (Auto) 61 % (37-80); Nucleated Red Blood Cell # 0.00 Thou/mm3 (0.00-0.00); Nucleated Red Blood Cell % 0 /100 WBC (0); Platelet Count 438 Thou/mm3 (140-440); RDW Standard Deviation 63.3 fL (36.4-46.3); Red Blood Count 2.70 Miln/mm3 (4.00-5.20); White Blood Count 22.7 Thou/mm3 (3.6-11.0)
[2024-11-17 06:28] LABS: Hemoglobin 8.4 g/dL (12.0-16.0)
[2024-11-17 07:07] LABS: Alanine Aminotransferase < 7 U/L (10-49); Albumin, Serum 3.8 gm/dL (3.4-4.8); Albumin/Globulin Ratio 1.4 (1.2-2.2); Alkaline Phosphatase 72 U/L (46-116); Anion Gap 10 (7-16); Aspartate Amino Transferase 11 U/L (0-34); BUN/Creatinine Ratio 30 Ratio (12-20); Bilirubin,Total 0.3 mg/dL (0.3-1.2); Blood Urea Nitrogen 18 mg/dL (9-23); Calcium 9.8 mg/dL (8.3-10.6); Calcium (Corrected) 10.0 mg/dL (8.5-10.1); Carbon Dioxide 30.8 mMol/L (20.0-31.0); Chloride 95 mMol/L (98-107); Creatinine (Component) 0.6 mg/dL (0.6-1.3); Estimated Creatinine Clearance 88.4 mL/min (>60); Globulin 2.8 gm/dL (2.3-3.5); Glucose 123 mg/dL (74-106); Magnesium 2.0 mg/dL (1.6-2.6); Osmolality,Calculated 274 (275-295); Phosphorous 3.8 mg/dL (2.4-5.1); Potassium 4.2 mMol/L (3.4-5.1); Sodium 136 mMol/L (136-145); Total Protein 6.6 gm/dL (5.7-8.2); eGFR > 60 See Note
[2024-11-17] MEDS: VANCOMYCIN 25 MG/ML 125 MG GT ×4 (07:40→20:22)
[2024-11-17] MEDS: ASPIRIN 81 MG CHEW GT (09:45)
[2024-11-17] MEDS: levETIRAcetam LIQD 500 MG/5 ML UDC 1000 MG GT ×2 (09:45→20:19)
[2024-11-17] MEDS: HEPARIN SOD INJ 5000 UNIT/ML VIAL SC ×2 (09:46→20:26)
[2024-11-17 10:02] LABS: Path Review Blood Smear Sent to Pathologist
--- NOTE | 2024-11-17 13:26 | ESPR_ITS ---
<Statement entered by Vika Sunshine MD - 11/17/24 15:53> Patient was seen and examined at bedside. I agree on the assessment and plan on this note as documented by resident Argenis Diana DO PGY1. Patient's antibiotic regimen changed to vancomycin by infectious disease specialist Dr. Gates, continues to have episodes of diarrhea per nursing, patient unable to be discharged to subacute over the weekend as not enough staff in subacute for now, will likely be discharged in a.m. Will be reevaluated by ID in a.m. prior to discharge. Case discussed with attending Dr. Yu Sunshine MD PGY-2 Documentation for date of: 11/17/24 Subjective Subjective Interval history: No acute night events. Patient seen and examined at bedside. Patient endorses lower abdominal pain, tender on palpation. No other new complaints. Per ID, continue vancomycin 125 mg GT QID. WBC count increasing from 21.1- >22.7. Per nursing, patient still having episodes of diarrhea overnight as well as this morning. Can likely be discharged to subacute tomorrow on vancomycin. Exam Vital Signs Temp Pulse Resp BP Pulse Ox O2 Del Method FiO2 97.0 F 73 18 99/61 98 Trach Collar 40 11/17/24 12:00 11/17/24 12:28 11/17/24 12:00 11/17/24 12:00 11/17/24 12:00 11/17/24 12:00 11/17/24 12:00 Narrative Exam GENERAL: alert, no acute distress, +tracheostomy, PEG tube HEENT: NC/AT, mucous membranes dry, bilateral sclera anicteric CARDIOVASCULAR: regular rate and rhythm, S1/S2 present, no murmurs appreciated PULMONARY: CTAB, trace bronchial sounds ABDOMINAL: soft, non-distended, no rebound/guarding, bowel sounds present, + lower abdominal tenderness on palpation EXTREMITIES: 1+ pitting edema L>R SKIN: warm and dry, intact, no rashes NEURO: able to follow commands Objective Labs 11/17/24 04:48 11/17/24 04:48 Labs: Laboratory Results - last 24 hr 11/17/24 04:48 WBC 22.7 H RBC 2.70 L Hgb 8.4 L Hct 25.6 L MCV 95 MCH 31.1 MCHC 32.8 RDW Std Deviation 63.3 H Plt Count 438 D Neut % (Auto) 61 Lymph % (Auto) 19 [place] % (Auto) 15 H Eos % (Auto) 2 Baso % (Auto) 1 Neut # (Auto) 13.8 H Lymph # (Auto) 4.4 [place] # (Auto) 3.4 H Eos # (Auto) 0.4 Baso # (Auto) 0.1 Immature Gran # (Auto) 0.64 H Absolute Nucleated RBC 0.00 Immature Gran % 3 H Nucleated RBC % 0 Smear Path Review Sent to Pathologist Sodium 136 Potassium 4.2 Chloride 95 L Carbon Dioxide 30.8 Anion Gap 10 BUN 18 Creatinine 0.6 Estim Creat Clear Calc 88.4 eGFR > 60 BUN/Creatinine Ratio 30 H Glucose 123 H Calculated Osmolality 274 L Calcium 9.8 Corrected Calcium 10.0 Phosphorus 3.8 Magnesium 2.0 Total Bilirubin 0.3 AST 11 ALT < 7 L Alkaline Phosphatase 72 Total Protein 6.6 Albumin 3.8 Globulin 2.8 Albumin/Globulin Ratio 1.4 ABG Interpretation ABG results: 11/10/24 05:33 ABG pH 7.38 ABG pCO2 47 ABG pO2 88 ABG HCO3 28 H ABG O2 Saturation 98 ABG Base Excess 2 Quality Measures Quality Measures VTE prophylaxis Advance care planning discussed with:: patient Assessment & Plan Assessment Current Active Medications: Generic Name Dose Route Start Last Admin Trade Name Freq PRN Reason Stop Dose Admin Acetaminophen 650 mg 11/11/24 08:22 Acetaminophen Ericka 325 Mg/10 Ml Udc GT 12/10/24 09:50 Q6H PRN Fever >100.3 Albuterol/Ipratropium 3 ml 11/10/24 10:00 Albuterol/Ipratropium (Duoneb) Rt Ericka 3 Ml Nebu INH 12/10/24 10:59 Q4HRRT PRN WHEEZING Artificial Tears 2 drop 11/11/24 08:30 11/17/24 05:11 Artificial Tears 225 Drop/15 Ml Btl BOTH EYES 12/11/24 08:29 2 drop Q8HR JAYMIE Administration Aspirin 81 mg 11/11/24 09:00 11/17/24 09:45 Aspirin 81 Mg Chew GT 12/11/24 08:59 81 mg QDAY JAYMIE Administration Atorvastatin Calcium 40 mg 11/11/24 21:00 11/16/24 20:59 Atorvastatin Calcium 20 Mg Tablet GT 12/11/24 20:59 40 mg HS JAYMIE Administration Buspirone HCl 10 mg 11/11/24 09:00 11/17/24 09:45 Buspirone Hcl 5 Mg Tablet GT 12/11/24 08:59 10 mg BID JAYMIE Administration Dextrose 25 ml 11/11/24 08:20 Dextrose 50%-Water Inj 50 Ml Syringe IV 12/11/24 08:19 Q15MIN PRN BG 50-70 responsive npo pt Dextrose 50 ml 11/11/24 08:20 Dextrose 50%-Water Inj 50 Ml Syringe IV 12/11/24 08:19 Q15MIN PRN BG <50 OR BG <70 & pt unresponsive Glucagon 1 mg 11/11/24 08:20 Glucagon Inj 1 Mg Vial IM Q15MIN PRN BG <70, and no IV access Heparin Sodium (Porcine) 5,000 unit 11/10/24 10:00 11/17/24 09:46 Heparin Sod Inj 5000 Unit/Ml Vial SC 11/24/24 09:59 5,000 unit Q12HR JAYMIE Administration Insulin Human Lispro 0 unit 11/11/24 08:30 11/17/24 11:21 Insulin Lispro (Admelog) 1 Unit/0.01 Ml Unit SC 12/11/24 08:29 Not Given Q6HR JAYMIE Protocol Levetiracetam 1,000 mg 11/11/24 09:00 11/17/24 09:45 Levetiracetam Liqd 500 Mg/5 Ml Udc GT 12/11/24 08:59 1,000 mg BID JAYMIE Administration Ondansetron HCl 4 mg 11/10/24 09:51 Ondansetron Inj 2 Mg/Ml Inj 2 Ml IVP 12/10/24 09:50 Q6H PRN NAUSEA OR VOMITING Protocol Vancomycin HCl 125 mg 11/16/24 17:00 11/17/24 11:41 Vancomycin Oral Solution 25 Mg/Ml GT 11/22/24 12:59 125 mg QID@0700,1200,1700,2100 JAYMIE Administration Plan Ms. Ennis is a 69-year-old female past medical history significant for epilepsy, hypertension, hyperlipidemia, diabetes mellitus presented to the ED from subacute after found to have fever and leukocytosis. Pt is admitted to inpatient services for treatment of Pneumonia and UTI requiring IV antibiotics. #Leukocytosis secondary to #HCAP vs. VAP #Acute pyelonephritis, enterococcus faecium #Lactic acidosis- resolving -On admission WBC count was 44.2, patient had fever of 102.6, lactic acid 7.3 -> 5.0, Procalcitonin 5.05 - Patient was treated at the subacute with ceftriaxone 1 g for 4 days and failed outpatient therapy -UA +LE, hematuria, pyuria 42 and rare bacteria. Patient does not have a Hobson catheter. -SIRS 4/4 tachycardia, tachypnea, fever 102.6, lactic acidosis with no evidence of endorgan damage Chest x-ray is evident of significant bilateral pneumonia. CTAP significant bilateral pneumonia, mild associated heart failure, moderate renal parenchymal scar formation with perinephric stranding, cystitis pattern. In the ED patient received 3 L of IV fluids - Previous coccidiodes IgM antibody negative (09/16/24) - C. difficile PCR positive (11/12/24) - Abx: fluconazole ( 11/11/24- 11/13/24), cefepime (11/10/24- 11/13/24) vancomycin (11/10/24- 11/13/24) levoquin 750mg (11/13/24) Fidaxomicin 200mg (11/13/24-11/15/24) Plan: - Continue to monitor WBC trend - Restart vanc (11/16/24- - DuoNebs every 4 hours as needed - Blood culture no growth after 48hrs, continue to monitor - Stool studies ordered - Pending fungal cultures #Normocytic anemia, stable Likely secondary to anemia of chronic diseases due to patient's multiple comorbidities. Per chart review, has had normocytic anemia since 06/2024 Blood smear in 08/2024 showed normocytic normochromic anemia with anisocytosis and no significant poikilocytosis Reticulocyte count 3.7% representing more than adequate production and favors nutritional deficiency Vit B12 - 1462, iron low at 45, TIBC 316 H/H improving Plan - F/u blood smear pathology - Continue to monitor H&H - Consider IV iron #Type 2 Diabetes mellitus- controlled 09/24/2024 A1c 5.9, glucose on admission 142. Plan -Continue with sliding scale insulin -Hypoglycemic protocol if needed #Epilepsy -Continue patient's home Keppra and valproic acid via G-tube #Hyperlipidemia #Primary hypertension Plan -Continue home Atorvastatin 40 mg at bedtime -BP on admission is soft, will hold resuming home antihypertensive and continue to monitor BP #Chronic Respiratory Failure #s/p Tracheostomy on MV Plan - Continue with airway suctioning as needed and tracheostomy maintenance with RT - Trach changed on 11/11 #PEG tube Resume feeds as was from subacute facility. -dietary team consulted, on board Health Maintenance Disposition: telemetry for IV antibiotics for HCAP vs. VAP and UTI DVT Prophylaxis: Heparin 5000 units SC Q12 hrs GI Prophylaxis: Pantonix discontinued Diet: PEG tube feeds Lines: Peripheral lines Code status: DNR Plan of care discussed with attending Dr. Patel, and PGY-2 Dr. Sunshine. Argenis Diana, DO PGY-1 Internal Medicine Attending Provider Attestation/Addendum I attest that I was physically present for the evaluation, physical examination, lab and imaging review of the patient with the residents. I discussed the case with the residents and agree with the findings and plans of care as documented above. At bedside today, patient appears comfortable. Continues to have loose stools, 4 episodes today. Continues to be on isolation and oral vancomycin for C. difficile infection. Saturating well on trach collar. No new febrile episode. WBC count noted to be slightly increasing to 22.7 today but patient noted to have chronically elevated WBC with monocytosis. Peripheral blood smear ordered patient may need outpatient hematology follow-up. If continues to improv we will plan for discharge in next 24 to 48 hours back to subacute. Yu Patel MD
[2024-11-17] MEDS: ATORVASTATIN CALCIUM 20 MG TABLET 40 MG GT (20:18)
[2024-11-18] VITALS (11 sets, daily range): BP systolic 96–110; BP diastolic 68–72; PULSE 69–108; RESP 26–36; TEMP 36.1–36.2; O2SAT 95–99; BMI 31.7
[2024-11-18] MEDS: ACETAMINOPHEN SOL 325 MG/10 ML UDC 650 MG GT (00:28)
[2024-11-18] MEDS: Artificial Tears 225 DROP/15 ML BTL BOTH EYES (05:03)
[2024-11-18 06:08] LABS: Basophils # (Auto) 0.1 Thou/mm3 (0.0-0.2); Basophils % (Auto) 1 % (0-2.5); Eosinophils # (Auto) 0.4 Thou/mm3 (0.0-0.5); Eosinophils % (Auto) 2 % (0-10); Hematocrit 26.6 % (36.0-46.0); Immature Granulocytes Auto 0.40 Thou/mm3 (0.00-0.00); Lymphocytes # (Auto) 4.0 Thou/mm3 (1.0-4.8); Lymphocytes % (Auto) 18 % (10-50); Mean Corpuscular HGB Conc 32.0 g/dl (31.0-37.0); Mean Corpuscular Hemoglobin 29.7 pg (25.0-35.0); Mean Corpuscular Volume 93 fL (80-100); Monocytes # (Auto) 2.8 Thou/mm3 (0.0-0.8); Monocytes % (Auto) 13 % (0-12); Neutrophils # (Auto) 14.1 Thou/mm3 (1.8-7.7); Neutrophils % (Auto) 65 % (37-80); Nucleated Red Blood Cell # 0.00 Thou/mm3 (0.00-0.00); Nucleated Red Blood Cell % 0 /100 WBC (0); Platelet Count 486 Thou/mm3 (140-440); RDW Standard Deviation 59.7 fL (36.4-46.3); Red Blood Count 2.86 Miln/mm3 (4.00-5.20); White Blood Count 21.8 Thou/mm3 (3.6-11.0)
[2024-11-18 06:12] LABS: Hemoglobin 8.5 g/dL (12.0-16.0)
[2024-11-18 06:30] LABS: Alanine Aminotransferase < 7 U/L (10-49); Albumin, Serum 3.8 gm/dL (3.4-4.8); Albumin/Globulin Ratio 1.1 (1.2-2.2); Alkaline Phosphatase 78 U/L (46-116); Anion Gap 11 (7-16); Aspartate Amino Transferase 16 U/L (0-34); BUN/Creatinine Ratio 25 Ratio (12-20); Bilirubin,Total 0.3 mg/dL (0.3-1.2); Blood Urea Nitrogen 15 mg/dL (9-23); Calcium 9.7 mg/dL (8.3-10.6); Calcium (Corrected) 9.9 mg/dL (8.5-10.1); Carbon Dioxide 30.2 mMol/L (20.0-31.0); Chloride 95 mMol/L (98-107); Creatinine (Component) 0.6 mg/dL (0.6-1.3); Estimated Creatinine Clearance 88.4 mL/min (>60); Globulin 3.5 gm/dL (2.3-3.5); Glucose 127 mg/dL (74-106); Magnesium 2.0 mg/dL (1.6-2.6); Osmolality,Calculated 274 (275-295); Potassium 4.3 mMol/L (3.4-5.1); Sodium 136 mMol/L (136-145); Total Protein 7.3 gm/dL (5.7-8.2); eGFR > 60 See Note
[2024-11-18] MEDS: VANCOMYCIN 25 MG/ML 125 MG GT ×2 (07:55→11:38)
[2024-11-18] MEDS: levETIRAcetam LIQD 500 MG/5 ML UDC 1000 MG GT (08:12)
[2024-11-18] MEDS: HEPARIN SOD INJ 5000 UNIT/ML VIAL SC (08:12)
[2024-11-18] MEDS: ASPIRIN 81 MG CHEW GT (08:12)
--- NOTE | 2024-11-18 09:11 | ESPR_ITS ---
Subjective Subjective Interval history: supposed to leave today. delay noted. not my doing Exam Vital Signs Temp Pulse Resp BP Pulse Ox O2 Del Method FiO2 97.1 F 84 26 H 109/72 99 Trach Collar 40 11/18/24 07:59 11/18/24 07:59 11/18/24 07:59 11/18/24 07:59 11/18/24 07:59 11/18/24 07:59 11/18/24 07:59 Narrative Exam limited visit Objective - Internal Medicine Labs 11/18/24 05:25 11/18/24 05:25 Labs: Laboratory Results - last 24 hr 11/17/24 11/18/24 04:48 05:25 WBC 21.8 H RBC 2.86 L Hgb 8.5 L Hct 26.6 L MCV 93 MCH 29.7 MCHC 32.0 RDW Std Deviation 59.7 H Plt Count 486 H D Neut % (Auto) 65 Lymph % (Auto) 18 [place] % (Auto) 13 H Eos % (Auto) 2 Baso % (Auto) 1 Neut # (Auto) 14.1 H Lymph # (Auto) 4.0 [place] # (Auto) 2.8 H Eos # (Auto) 0.4 Baso # (Auto) 0.1 Immature Gran # (Auto) 0.40 H Absolute Nucleated RBC 0.00 Immature Gran % 2 H Nucleated RBC % 0 Smear Path Review Sent to Pathologist Sodium 136 Potassium 4.3 Chloride 95 L Carbon Dioxide 30.2 Anion Gap 11 BUN 15 Creatinine 0.6 Estim Creat Clear Calc 88.4 eGFR > 60 BUN/Creatinine Ratio 25 H Glucose 127 H Calculated Osmolality 274 L Calcium 9.7 Corrected Calcium 9.9 Magnesium 2.0 Total Bilirubin 0.3 AST 16 ALT < 7 L Alkaline Phosphatase 78 Total Protein 7.3 Albumin 3.8 Globulin 3.5 Albumin/Globulin Ratio 1.1 L ABG Interpretation ABG results: 11/10/24 05:33 ABG pH 7.38 ABG pCO2 47 ABG pO2 88 ABG HCO3 28 H ABG O2 Saturation 98 ABG Base Excess 2 Assessment & Plan A&P Narrative cdiff pos. abn cxr chronic rep failure chronic encephalopathy ppi can exacerbate cdiff changed po dificid to po vanco please finish rx on monday 8 pm for 10d overall , then offer a vanco taper 125 tid for a week, then 125 bid for a week, then 125 daily for a week, then kefir yogurt for a month po. kefir is available at most markets but is a food, so is not prescribed. it was studied for refractory cdiff at some [facility]. Time Spent With Patient Time: Total time spent is greater than 50% in coordination of care (as documented) at patient's floor/unit and/or counseling patient:
--- NOTE | 2024-11-18 09:45 | PC.SS ---
Follow up note: SS communicated with Ramya, Gas[employer] Dragline Operator from [facility] who explained pt will require a PASRR assesment due to being off 7 day bedhold. SS has intiated PASRR assessement and it?appears that a Level II Mental Health Evaluation referral is not required due to a Categorical Condition. SS spoke to Trinity ext [phone] from [facility] who is aware physicians are requesting for pt return today. Trinity spoke to Physician Resident, Dr. Guillen by phone about pt having white count up which is chronic issue and pt continues to have diarrhea which she is receiving treatment for. Physician residents will follow up with Dr. Nunes for his recommendations.
--- NOTE | 2024-11-18 10:39 | PC.NURSE ---
COORDINATED CARE WITH DR. CORRAL PATIENT READY FOR DISCHARGE.
--- NOTE | 2024-11-18 10:49 | PC.NURSE ---
COORDINATED CARE WITH RICHARD HOLDER, PAPERWORK COMPLETED. FAMILY AWARE OF PTS TRANSFER BACK TO SUBACUTE.
--- NOTE | 2024-11-18 11:11 | PC.NURSE ---
REPORT GIVEN TO TATIANA MEJIA AT SUBACUTE.
--- NOTE | 2024-11-18 12:01 | PC.NURSE ---
COORDINATED CARE WITH RESPIRATORY TO TRANSFER PT DOWN TO SUBACUTE.
--- NOTE | 2024-11-18 12:55 | ESDS_ITS ---
<Statement entered by Vika Sunshine MD - 11/20/24 15:50> Patient was seen and examined at bedside. I agree on the assessment and plan on this note as documented by resident Gabbie Whittington MD PGY1. 69-year-old female with past medical history as below admitted to [facility] for SIRS positive suspected to have pneumonia, was eventually found to have C. difficile positive, infectious disease consulted patient initially started on fidaxomicin however per ID recommendations was switched to vancomycin. Per ID recommendations patient should be discharged on vancomycin 4 times a day until Monday 830, suggested taper Vancomycin Taper 125 tid for a week (11/24-11/30), Then 125 bid for a week (12/01-12/07), then 125 daily for a week (12/08-12/14). Patient signed out to subacute medical coding instructor Dr. Silverio, patient stable for discharge. Case discussed with attending Dr. Amanda Sunshine MD PGY-2 <Statement entered by Yu Patel MD - 11/19/24 09:31> I attest that I was physically present for the evaluation, physical examination, lab and imaging review of the patient with the residents. I discussed the case with the residents and agree with the findings and plans of care as documented below. Yu Patel MD Planned Discharge Date 11/18/24 DS: Providers Provider Date of admission: 11/10/24 09:51 Primary care physician: Physician No Primary/Family Admitting Provider: Manuel Montalvo MD Attending Provider on Admission: Yu Patel MD Consults: 11/10/24 09:58 RT [Referral Respiratory Therapy] Routine Comment: please change trach tube 11/10/24 16:10 Referral Registered Dietitian Routine Comment: 11/11/24 08:00 Referral Wound Care Routine Comment: 11/13/24 14:59 Consult to Infectious Diseases Stat Comment: C Diff, UTI, PNA Consulting Provider: Pilo Gates Attending Provider on DC: Yu Patel MD Discharging Provider: Yu Patel MD Anticipated date of discharge: 11/18/24 DS: Diagnosis Problem List Completed Was Problem List Reviewed/Reconciled?: Yes Hospital Course Hospital Course Hospital course: Summary Ms. Ennis is a 69-year-old female past medical history significant for epilepsy, hypertension, hyperlipidemia, diabetes mellitus presented to the [facility] ED on 11/10/24 from subacute after found to have fever and leukocytosis. Patient was admitted to inpatient services for treatment of Pneumonia and UTI requiring IV antibiotics. In the ED patient white blood cell was 44.2, lactic acid 5, Pro-Man 5.05. UA was positive for leukocyte esterase, hematuria, pyuria, and rare bacteria. Urine culture was positive for Enterococcus faecium. Blood culture no growth in 5 days for 2 bottles. Chest x- ray was evident with significant bilateral pneumonia. CT chest/abd/pelvis showed opacities of bilateral pneumonia, cystitis pattern. Ultrasound of gallbladder was normal. She was manage with Solu-Medrol, Zofran, ketorolac, cefepime, vancomycin. Started Fluconozole to cover fungal infections. Patient started having diarrheas, C. difficile test resulted and returned positive. Subsequently, Protonix was continued. Hence started Fidaxomin 200 mg from 11/13 to 11/18. Per ID Dr. Gates recommendation was discontinue and resume vancomycin regimen. WBC downtrending to 20s, which is the patient baseline. Fever resolved. Mechanical ventilator and trach collar settings was stable throughout hospitalization. Throughout the hospital course patient other problems were managed and her condition improved remarkably with progression of hospital course. Further plan to discharge the patient back to subacute since she is stable and responded well to hospital treatment. Discharge recommendation: - Continue Vancomycin four times a day till Monday 08/30 pm to complete 10 days overall treatment, - Suggest Vancomycin Taper 125 tid for a week (11/24-11/30), Then 125 bid for a week (12/01-12/07), - Then 125 daily for a week (12/08-12/14), - Recommend Kefir yogurt for a month PO Daily - Continue all other medications as below. - Follow up with PCP in 1-2 weeks - Return to ED if symptoms worsen. Hospital Diagnoses: #Leukocytosis secondary to #HCAP vs. VAP #Acute pyelonephritis, enterococcus faecium #Lactic acidosis- resolved #Normocytic anemia, stable #Type 2 Diabetes mellitus- controlled #Epilepsy #Hyperlipidemia #Primary hypertension #Hyperlipidemia #Primary hypertension #Chronic Respiratory Failure #s/p Tracheostomy on MV #PEG tube Time Spent with Patient Time attestation: Total time spent providing and/or coordinating discharge services: 36 min Time spent: Greater than 30 minutes Exam Vital Signs Temp Pulse Resp BP Pulse Ox O2 Del Method FiO2 97.0 F 87 27 H 96/69 95 Trach Collar 40 11/18/24 12:00 11/18/24 12:02 11/18/24 12:00 11/18/24 12:00 11/18/24 12:02 11/18/24 12:00 11/18/24 12:02 Narrative Exam GENERAL: alert, no acute distress, +tracheostomy, PEG tube HEENT: NC/AT, mucous membranes dry, bilateral sclera anicteric CARDIOVASCULAR: regular rate and rhythm, S1/S2 present, no murmurs appreciated PULMONARY: CTAB, trace bronchial sounds ABDOMINAL: soft, non-distended, no rebound/guarding, bowel sounds present, +lower abdominal tenderness on palpation EXTREMITIES: 1+ pitting edema L>R SKIN: warm and dry, intact, no rashes NEURO: able to follow commands Discharge Plan Plan Patient Disposition: Xfer Skilled Nsg Fac (SNF) Patient condition on transfer: Stable Care Plan Goals: Continue Vancomycin four times a day till Monday 08/30 pm to complete 10 days overall treatment, Suggest Vancomycin Taper 125 tid for a week (11/24-11/30), Then 125 bid for a week (12/01-12/07), Then 125 daily for a week (12/08-12/14), Recommend Kefir yogurt for a month PO Daily Continue all other medications as below. Follow up with PCP in 1-2 weeks Return to ED if symptoms worsen. Prescriptions/Referrals Prescriptions/Med Rec: Discontinued polyethylene glycol 3350 17 gram powder in packet 17 g G-tube PRN PRN (Reason: No BM Per Bowel Management Protocol) 365 Days Qty: 1 0RF Label Comments: Administer as needed if 2nd round bowel protocol ineffective. Rx Instructions: Mix with 4oz of water before giving. Hold tube feeding for 30 minutes after administration. Notify provider if no results from Miralax. Ear Wax Removal Drops 6.5 % drops 5 drp otic (ear) Q61D Qty: 15 11RF Ear Wax Removal Drops 6.5 % drops 5 drp otic (ear) Q61D Qty: 15 11RF Rx Instructions: 5 drops per ear at first med pass of shift. Then irrigate ears with NS at next med pass of each shift x 4 days for wax build up. *Start on the of the month, every two months. Ear Wax Removal Drops 6.5 % drops 5 drp otic (ear) Q61D Qty: 15 11RF Ear Wax Removal Drops 6.5 % drops 5 drp otic (ear) Q61D Qty: 15 11RF Rx Instructions: 5 drops per ear at first med pass of shift. Then irrigate ears with NS at next med pass of each shift x 4 days for wax build up. *Start on the of the month, every two months. Ear Wax Removal Drops 6.5 % drops 5 drp otic (ear) Q61D Qty: 15 11RF Ear Wax Removal Drops 6.5 % drops 5 drp otic (ear) Q61D Qty: 15 11RF Ear Wax Removal Drops 6.5 % drops 5 drp otic (ear) Q61D Qty: 15 11RF No Action acetaminophen 325 mg tablet 650 mg G-tube Q6HR PRN (Reason: Pain Scale 1-3 (Mild) 30 Days 0RF Rx Instructions: Do not exceed 3gm a day from any source in 24 hours. artificial tear([id number]) [GenTeal Tears Moderate] 0.1-0.3-0.2 % drops 2 drp Both eyes Q8HR 30 Days 0RF Rx Instructions: FOR DRYNESS aspirin 81 mg tablet,chewable 81 mg G-tube QDAY 30 Days Qty: 30 0RF Rx Instructions: Give one tab daily PGT for DVT prevention atorvastatin 20 mg tablet 40 mg G-tube HS 30 Days Qty: 60 0RF bisacodyl [Dulcolax (bisacodyl)] 10 mg suppository 10 mg [place] PRN PRN (Reason: No BM Per Bowel Management Protocol) 30 Days 0RF Rx Instructions: Administer as needed on 6th shift, if MOM ineffective. buspirone 10 mg tablet 10 mg G-tube BID 30 Days Qty: 30 0RF Rx Instructions: Continue Buspirone 10mg BID x30 days then re-evaluate with MD. cholecalciferol (vitamin D3) 25 mcg (1,000 unit) tablet 25 mcg G-tube BID 30 Days Qty: 30 0RF enoxaparin 40 mg/0.4 mL syringe 40 mg SCi QDAY 90 Days Qty: 36 0RF Diazepam 5 mg IM [id number] PRN (Reason: Seizures) Qty: 1 0RF Rx Instructions: Diazepam 5mg/mL injection, Inject 5mg/mL intramuscularly as needed for seizures. If seizure persist administer 2nd dose. If not effective send PT to ER for further eval. and notify MD. *Single dose vial Gvoke 1 mg/0.2 mL solution 1 mg IM Q15MIN PRN (Reason: Hypoglycemia) 30 Days 0RF guaifenesin [Taylor-Tussin] 100 mg/5 mL liquid 300 mg G-tube Q6HR PRN (Reason: Cough) 30 Days 0RF Rx Instructions: Conc: 100MG/5ML- give 300mg/15ml ipratropium-albuterol 0.5 mg-3 mg(2.5 mg base)/3 mL solution for nebulization 3 ml INH Q2HR PRN (Reason: Wheezing) 30 Days 0RF insulin lispro 100 unit/mL insulin pen See Rx Instructions SCi ,18 30 Days Qty: 0 0RF Rx Instructions: Per Sliding Scale as follows: 0-150= 0 units; 151-200= 2 units; 201-250= 4 units; 251-300= 6 units; 301-350= 8 units; 351-400= 10 units; >400= 12 units; and call levetiracetam 100 mg/mL solution 1,000 mg G-tube BID 30 Days Qty: 300 0RF Rx Instructions: give [id number] for seizures magnesium hydroxide [Milk of Magnesia] 400 mg/5 mL suspension 30 ml G-tube PRN PRN (Reason: Constipation) 30 Days 0RF Rx Instructions: CONC: 400MG/5ML polyethylene glycol 3350 17 gram powder in packet 17 g G-tube PRN PRN (Reason: No BM Per Bowel Management Protocol) 30 Days 0RF Rx Instructions: Mix with 4oz of water before giving. Hold tube feeding for 30 minutes after administration. Notify provider if no results from Miralax. Fleet Enema 19-7 gram/118 mL enema 133 ml VA PRN PRN (Reason: No BM Per Bowel Management Protocol) 30 Days 0RF valproic acid (as sodium salt) 250 mg/5 mL solution 500 mg G-tube TID 30 Days Qty: 300 0RF Rx Instructions: Valproic acid 250/5ml chelsey. Give 500mg (10ml) PGT for seizures vancomycin 25 mg/mL recon soln 125 mg G-tube QID@0700,1200,1700,2100 30 Days Qty: 600 0RF acetaminophen 325 mg tablet 650 mg G-tube Q4HR PRN (Reason: Temp>100.0) 7 Days 0RF Label Comments: not to exceed 3 grams of Tylenol in 24 hours from all sources Rx Instructions: give two tabs of 325mg to equal 650mg Ear Wax Removal Drops 6.5 % drops 5 drp otic (ear) Q61D 345 Days 0RF Rx Instructions: 5 drops per ear at first med pass of shift. Then irrigate ears with NS at next med pass of each shift x 4 days for wax build up. *Start on the of the month, every two months. Ear Wax Removal Drops 6.5 % drops 5 drp otic (ear) Q61D 343 Days 0RF Ear Wax Removal Drops 6.5 % drops 5 drp otic (ear) Q61D 343 Days 0RF Rx Instructions: 5 drops per ear at first med pass of shift. Then irrigate ears with NS at next med pass of each shift x 4 days for wax build up. *Start on the of the month, every two months. Ear Wax Removal Drops 6.5 % drops 5 drp otic (ear) Q61D 342 Days 0RF Ear Wax Removal Drops 6.5 % drops 5 drp otic (ear) Q61D 345 Days 0RF Ear Wax Removal Drops 6.5 % drops 5 drp otic (ear) Q61D 344 Days 0RF Ear Wax Removal Drops 6.5 % drops 5 drp otic (ear) Q61D 344 Days 0RF Ear Wax Removal Drops 6.5 % drops 5 drp otic (ear) Q61D 342 Days 0RF Rx Instructions: 5 drops per ear at first med pass of shift. Then irrigate ears with NS at next med pass of each shift x 4 days for wax build up. *Start on the of the month, every two months. Referrals: No Primary/Family,Physician [Primary Care Provider] - Lalo Silverio MD [Physician] - Patient/Caregiver Discharge Instructions Discharge Activity: other Education Materials: C diff, Clostridium Difficile Infection, My C. Diff Infection Treatment Plan Print Language: Maltese Stand Alone Forms: Johana Award Info., Patient Portal Info Letter Discharge Order Discharge Orders: Discharge (Routine); Ordered 11/18/24 Ordered By: Vika Sunshine Quality Discharge Quality Measures VTE prophylaxis
--- NOTE | 2024-11-18 13:13 | PC.NURSE ---
TATIANA MEJIA WILL REMOVE IV DOWN IN SUBACUTE.
--- NOTE | 2024-11-18 15:32 | PC.SS ---
SS has sent PASRR through file exchange. Ramya from [facility] is aware.
--- NOTE | 2024-11-19 08:49 | ESCONSULT_ITS ---
RE: YOANDY SANDOVAL : 1955 DATE OF CONSULTATION: 11/15/2024 REFERRING PHYSICIAN: Dr. Montalvo. REASON FOR CONSULTATION: Positive Clostridium difficile culture/PCR in a patient with a chronic Clostridium difficile history, being positive in the past. HISTORY OF PRESENT ILLNESS: The patient has leukocytosis. It is unclear what treatment she has received in the past and she cannot offer any history. She appears to have chronic respiratory failure and is on a ventilator. She is listed as being a DNR. There is no other clear source of infection. She is on 40% on the ventilator. A chest x-ray on 11/10/2024 showed bilateral pneumonia. This may be fluid overload given her situation. I did review her case briefly the other day. She has chronic respiratory failure and cannot offer any history. She seems to have chronic encephalopathy. PAST SURGICAL HISTORY: I am not sure if she has had any prior surgeries other than trach and a PEG. IMMUNIZATIONS: Immunizations are as per the record. ALLERGIES: JUST TO CODEINE. REACTION IS NOT WELL RECORDED. FAMILY HISTORY: Unavailable. SOCIAL HISTORY: Limited to information on file and also unavailable. PHYSICAL EXAMINATION: GENERAL: On exam, the patient is in no distress. She is on 40% on a ventilator. There are no positive sterile site cultures of note. Treatment is somewhat empiric. There does appear to be urine with a gnr which has not been targeted directly, but the patient does seem to be improved. Fungal culture from the trachea has been sent. It appears to be negative so far. Fungal culture from the urine has also been sent. It also appears to be negative so far, but it has only been a couple of days. I am not sure how long they hold the fungal cultures. The patient's white count is improved. She has remained on Dificid. Probably because of prior C. diff. There is no evidence that Dificid is better than vancomycin with a taper, so many offer the vancomycin orally with a taper as it is considerably less expensive than the oral Dificid. Dificid is many times given to people with refractory C. diff, but is not inherently better. Further, we do not know what treatment she may have received at [facility]. They are usually more fiscally constrained than we are at the hospital. Her exam is benign. The patient cannot offer any history. History is limited to information on file. ASSESSMENT: 1. Possible pneumonia versus fluid overload. 2. Resistant organism in the urine. 3. Clostridium difficile.which seems to be her biggest issue at the moment RECOMMENDATIONS: I am going to narrow her treatment down to just the C. diff treatment. I will check on her again on Monday. If she worsens in the meantime, you can add back something for pneumonia, but for now, I would leave her off of treatment for pneumonia unless something grows. I will see her again on Monday if she remains. If she goes back to subacute, please offer vancomycin with a taper after 10 days of 125 q.i.d. The taper consists of vancomycin 125 t.i.d. for a week, followed by 125 b.i.d. for a week, followed by 125 daily for a week, followed by oral kefir daily. Kefir is a liquid yogurt that can be obtained at most food stores. It is not available as a prescription. You have to order it as is approved. I am not sure if we have it here, so if she goes to subacute, she may not get all the rx. DT: 10:45:12 TT: 11:27:00 Ref: [id number] - TID: [id number] MTDD
== END 2024-11-18 12:05 | disposition skilled nursing facility (03) | DRG 207 ==
LOC: SERX 06:40 → SERHOLD 10:24 → S3NX 11-11 06:58
PROVIDERS: Emergency Medicine; Internal Medicine Infectious Disease; Admitting Provider Student in an Organized Health Care Education/Training Program; Emergency Provider Emergency Medicine; Visit Provider Student in an Organized Health Care Education/Training Program
DX: J95.851 Ventilator associated pneumonia (principal); J18.9 Pneumonia, unspecified organism; A04.71 Enterocolitis due to Clostridium difficile, recurrent; E87.20 Acidosis, unspecified; N10 Acute pyelonephritis; J96.10 Chronic respiratory failure, unspecified whether with hypoxia or hypercapnia; Z16.11 Resistance to penicillins; G93.49 Other encephalopathy; G40.909 Epilepsy, unspecified, not intractable, without status epilepticus; I11.0 Hypertensive heart disease with heart failure; I50.9 Heart failure, unspecified; E11.9 Type 2 diabetes mellitus without complications; N30.91 Cystitis, unspecified with hematuria; Z93.0 Tracheostomy status; Z93.1 Gastrostomy status; Z66 Do not resuscitate; D64.9 Anemia, unspecified; E63.9 Nutritional deficiency, unspecified; E78.00 Pure hypercholesterolemia, unspecified; J45.909 Unspecified asthma, uncomplicated; Y95 Nosocomial condition; D72.821 Monocytosis (symptomatic); F03.90 Unspecified dementia, unspecified severity, without behavioral disturbance, psychotic disturbance, mood disturbance, and anxiety; Z78.9 Other specified health status; B95.2 Enterococcus as the cause of diseases classified elsewhere; Z79.899 Other long term (current) drug therapy; Z88.5 Allergy status to narcotic agent
CPT/HCPCS: 36415; 36600; 71045; 71250; 74176; 76705; 80053; 80202; 81001; 82150; 82248; 82607; 82728; 82746; 82803; 83036; 83540; 83550; 83605; 83690; 83735; 83880; 84100; 84145; 84484; 85014; 85018; 85025; 85046; 85652; 86140; 86803; 87040; 87077; 87081; 87086; 87102; 87186; 87205; 87400; 87493; 87634; 87651; 87811; 93005; 93225; 94003; 96361; 96365; 96366; 96372; 96375; 96376; 99283; J0692; J1644; J1815; J1885; J1956; J2405; J2470; J2919; J3372; J3373; J3375; J3475; J7030; J7050; J7120; J7999; A9270

== ENCOUNTER 2024-11-18 12:12 | Inpatient (IN) | payer MEDICARE, MEDICAID, SELFPAY ==
[2024-11-18] MEDS: VALPROIC ACID 250 MG/5 ML 500 MG GT ×2 (14:00→21:55)
[2024-11-18] MEDS: CARBAMIDE PEROXIDE OTIC SOL 15 ML BTL 5 DROP BOTH EARS (14:00)
[2024-11-18] MEDS: DEX/HYPRO/GLY ARTIFICAL TEARS 225 DROP/15 ML BTL BOTH EYES ×2 (14:00→21:53)
[2024-11-18 14:30] VITALS: BMI 30.9
--- NOTE | 2024-11-18 15:03 | PC.IP ---
Addendum entered by Mariann Gibbs LVN 12/16/24 10:37: On 11/21/24 1000 PPD resulted as negative without redness or induration. Resident continues on Contact Isolation precautions for positive C. difficile with Vancomycin tapering dosing. Original Note: Resident returned from acute care; PPD ordered and placed LUE. Resident awake, alert without response and withdrew forearm after explanation of application of PPD to left extremity. Small cart placed near resident room underneath PPE chu for small supply of splash resistant specialty gowns, to be used for turn/change/reposition rounds. All staff reminded to use all available PPE; face jacobo are also available at the room as needed.Resident is in Contact Isolation for C. difficile diarrhea and is being treated with Vancomycin per recommendations of Francisco Gates MD ID; consulted while resident in acute care. Appropriate signage is in place at resident room.
--- NOTE | 2024-11-18 16:28 | PC.NURSE ---
Addendum entered and electronically signed by Zainab Jordan RN 11/18/24 16:43: Notified resident's sister Suzie today that resident came back from acute care. Original Note: Resident admitted from acute care at 12:12 via bed. On mechanical ventilator, no s/s of respiratory distress , no s/s of pain or discomfort. Resident to continue on vancomycin chelsey for positive for c diff and to taper it as per report received . Vancomycin chelsey not available until tomorrow as per pharmacy, notified Dr Silverio. Vancomycin to start once available. Vancomycin capsule (granules) available in cubex but can't be given via gtube as per pharmacy due to possible clogging of the gtube and medicine can't be crushed. Resident to continue previous orders and be on contact isolation/precautions.
[2024-11-18 18:00] VITALS: BP 97/63; RESP 80; TEMP 36.2; O2SAT 97
[2024-11-18 20:36] VITALS: PULSE 88; RESP 26; O2SAT 98
--- NOTE | 2024-11-18 20:45 | PD.SAHP ---
Physical exam Physical Exam Vital signs: Temp Pulse Resp BP Pulse Ox O2 Del Method FiO2 98 F 81 24 H 99/64 96 Mechanical Ventilation 40 11/21/24 17:42 11/21/24 18:49 11/21/24 17:42 11/21/24 17:42 11/21/24 18:49 11/21/24 05:45 11/21/24 18:49 Narrative: No improvement in mental cognition Constitutional Comments: VSS HEENT Exam Comments: NAD Neck Exam Comments: NAD Chest/Breast/Axilla Exam Comments: NAD Respiratory Exam Respiratory: Present chest non-tender, lungs clear and patient mechanically ventilated Cardiovascular Exam Cardiovascular: Present RRR, S1 and S2 Abdominal Exam Abdominal: Present soft Rectal Exam Comments: deferred Exam Comments: NAD Extremities Exam Comments: no edema Back/Spine/Pelvis Exam Comments: NAD Neurological Exam Comments: spontanous eye opening, no orientation to place/person/time. No cognitive response Rehabilitation potential Diagnosis (1) Chronic anoxic encephalopathy: Status: Chronic (2) Chronic respiratory failure: Status: Chronic (3) Ventilator dependent: Status: Chronic (4) Seizures: Status: Chronic (5) Essential hypertension: Status: Chronic (6) PEG (percutaneous endoscopic gastrostomy) status: Status: Chronic (7) Tracheostomy dependence: Status: Chronic Assessment & Plan Assessment: 69 yrs of age female being re-admitted to [facility] with Hypertension/hyperlipidemia/epilepsy, recently treated in acute care for UTI sepsis with and on Rocephin one gram daily iv x 4 days. chronic encephalopathy/ chronic respiratory failure/ Ventilator dependent/Trach and feeding G tube as before. VSS , no pain issues Prognosis Prognosis: Poor for independent living If patient not informed of condion, describe why: Pt with no cognitive response Goals Full support to ensure stability and free of discomfort HPI History of Present Illness HPI: 69 yrs of age female being re-admitted to [facility] with Hypertension/hyperlipidemia/epilepsy, recently treated in acute care for UTI sepsis with and on Rocephin one gram daily iv x 4 days. chronic encephalopathy/ chronic respiratory failure/ Ventilator dependent/Trach and feeding G tube as before. VSS , no pain issues
[2024-11-18] MEDS: ATORVASTATIN 20 MG TABLET 40 MG GT (21:30)
[2024-11-18] MEDS: BUSPIRONE 10 MG TABLET GT (21:30)
[2024-11-18] MEDS: ACETAMINOPHEN 325 MG TABLET 650 MG GT (22:00)
[2024-11-18 23:30] VITALS: TEMP 37.2
[2024-11-19] VITALS (8 sets, daily range): BP systolic 103–130; BP diastolic 61–80; PULSE 61–88; RESP 19–62; TEMP 36.1–37.2; O2SAT 97–99
[2024-11-19] MEDS: DEX/HYPRO/GLY ARTIFICAL TEARS 225 DROP/15 ML BTL BOTH EYES ×3 (05:26→21:02)
[2024-11-19] MEDS: VALPROIC ACID 250 MG/5 ML 500 MG GT ×3 (05:27→21:02)
[2024-11-19] MEDS: ASPIRIN 81 MG TAB.CHEW GT (09:00)
[2024-11-19] MEDS: CHOLECALCIFEROL (VITAMIN D3) 25 MCG TABLET GT ×2 (09:00→21:01)
[2024-11-19] MEDS: BUSPIRONE 10 MG TABLET GT ×2 (09:00→21:01)
[2024-11-19] MEDS: ENOXAPARIN SODIUM 40 MG/0.4 ML SYRINGE SC (10:55)
--- NOTE | 2024-11-19 15:56 | PC.SS ---
Resident admitted to subacute care on blow by with trach in place and GT for medication and nutrition. Resident has absence of speech, at times is able to make very simple needs known. Resident has POA in place, her RP is her sister Suzie Ennis who is her healthcare proxy. Resident is total care unable to care for self. She will remain in current care as family is unable to care for her at home.
--- NOTE | 2024-11-19 16:28 | PC.NURSE ---
Resident with discharge order recommendation of Kefir yogurt daily due to resident's C. Diff. RD recommended to be given it twice a day. Dr silverio made aware of it . Called RD and made aware that Dr Silverio agreed. Dietary will purchase the said yogurt and will let us know when it's available . RD said to be given 1/2 cup BID PGT for one month and will put the order in once available.
[2024-11-19] MEDS: ACETAMINOPHEN 325 MG TABLET 650 MG GT (20:45)
[2024-11-19] MEDS: ATORVASTATIN 20 MG TABLET 40 MG GT (21:01)
[2024-11-20] VITALS (8 sets, daily range): BP systolic 94–117; BP diastolic 60–77; PULSE 69–92; RESP 18–38; TEMP 36.1–36.6; O2SAT 95–99
[2024-11-20] MEDS: DEX/HYPRO/GLY ARTIFICAL TEARS 225 DROP/15 ML BTL BOTH EYES ×3 (05:54→21:09)
[2024-11-20] MEDS: VALPROIC ACID 250 MG/5 ML 500 MG GT ×3 (05:54→21:09)
[2024-11-20] MEDS: ENOXAPARIN SODIUM 40 MG/0.4 ML SYRINGE SC (09:18)
[2024-11-20] MEDS: ASPIRIN 81 MG TAB.CHEW GT (09:18)
[2024-11-20] MEDS: BUSPIRONE 10 MG TABLET GT ×2 (09:18→20:40)
[2024-11-20] MEDS: CHOLECALCIFEROL (VITAMIN D3) 25 MCG TABLET GT ×2 (09:18→20:40)
[2024-11-20] MEDS: ATORVASTATIN 20 MG TABLET 40 MG GT (20:40)
[2024-11-20] MEDS: ACETAMINOPHEN 325 MG TABLET 650 MG GT (20:42)
[2024-11-21] VITALS (8 sets, daily range): BP systolic 99–151; BP diastolic 61–67; PULSE 69–88; RESP 21–39; TEMP 36.1–36.6; O2SAT 96–99
[2024-11-21] MEDS: VALPROIC ACID 250 MG/5 ML 500 MG GT ×3 (05:07→21:28)
[2024-11-21] MEDS: DEX/HYPRO/GLY ARTIFICAL TEARS 225 DROP/15 ML BTL BOTH EYES ×3 (05:07→21:28)
--- NOTE | 2024-11-21 06:36 | PC.NURSE ---
Receving Vancomycin via gtube four times/day. Tolerating well, no adverse reaction noted. No fever noted. Had one loose stool for NOC shift. Resident alert, no c/o discomfort.
[2024-11-21] MEDS: ASPIRIN 81 MG TAB.CHEW GT (09:18)
[2024-11-21] MEDS: BUSPIRONE 10 MG TABLET GT ×2 (09:18→21:26)
[2024-11-21] MEDS: ENOXAPARIN SODIUM 40 MG/0.4 ML SYRINGE SC (09:19)
[2024-11-21] MEDS: CHOLECALCIFEROL (VITAMIN D3) 25 MCG TABLET GT ×2 (09:19→21:27)
--- NOTE | 2024-11-21 14:59 | PC.SS ---
Resident remains on vent with trach in place and GT for medication and nutrition. Resident is unable to make needs known, [employer] sales representative will continue to make all medical decisions for resident. Resident will remain in current care as resident is not ready to DC to lower level of care, she will continue to have all subacute care needs met by staff.
[2024-11-21] MEDS: ATORVASTATIN 20 MG TABLET 40 MG GT (21:26)
[2024-11-22] VITALS (7 sets, daily range): BP systolic 104–112; BP diastolic 61–76; PULSE 73–84; RESP 20–36; TEMP 36–36.4; O2SAT 95–98
[2024-11-22] MEDS: DEX/HYPRO/GLY ARTIFICAL TEARS 225 DROP/15 ML BTL BOTH EYES ×3 (05:32→22:08)
[2024-11-22] MEDS: VALPROIC ACID 250 MG/5 ML 500 MG GT ×3 (05:33→22:08)
[2024-11-22] MEDS: BUSPIRONE 10 MG TABLET GT ×2 (09:24→20:49)
[2024-11-22] MEDS: ASPIRIN 81 MG TAB.CHEW GT (09:24)
[2024-11-22] MEDS: ENOXAPARIN SODIUM 40 MG/0.4 ML SYRINGE SC (09:25)
[2024-11-22] MEDS: CHOLECALCIFEROL (VITAMIN D3) 25 MCG TABLET GT ×2 (09:25→20:49)
[2024-11-22] MEDS: ATORVASTATIN 20 MG TABLET 40 MG GT (20:49)
[2024-11-22] MEDS: ACETAMINOPHEN 325 MG TABLET 650 MG GT (20:50)
[2024-11-23] VITALS (8 sets, daily range): BP systolic 99–129; BP diastolic 58–76; PULSE 67–92; RESP 23–37; TEMP 35.9–36.5; O2SAT 95–98
[2024-11-23] MEDS: VALPROIC ACID 250 MG/5 ML 500 MG GT ×3 (06:03→21:05)
[2024-11-23] MEDS: DEX/HYPRO/GLY ARTIFICAL TEARS 225 DROP/15 ML BTL BOTH EYES ×3 (06:03→22:04)
[2024-11-23] MEDS: ASPIRIN 81 MG TAB.CHEW GT (09:23)
[2024-11-23] MEDS: BUSPIRONE 10 MG TABLET GT ×2 (09:23→20:23)
[2024-11-23] MEDS: CHOLECALCIFEROL (VITAMIN D3) 25 MCG TABLET GT ×2 (09:24→20:24)
[2024-11-23] MEDS: ACETAMINOPHEN 325 MG TABLET 650 MG GT ×2 (09:29→17:37)
[2024-11-23] MEDS: guaiFENesin Liq 100 MG/5 ML LIQUID 300 MG GT ×2 (09:30→17:37)
[2024-11-23] MEDS: ENOXAPARIN SODIUM 40 MG/0.4 ML SYRINGE SC (09:32)
--- NOTE | 2024-11-23 12:54 | ESPR_ITS ---
Progress Note - SubAcute DIAGNOSIS (1) Chronic anoxic encephalopathy: Status: Chronic (2) Chronic respiratory failure: Status: Chronic (3) Ventilator dependent: Status: Chronic (4) Seizures: Status: Chronic (5) Essential hypertension: Status: Chronic (6) PEG (percutaneous endoscopic gastrostomy) status: Status: Chronic (7) Tracheostomy dependence: Status: Chronic (8) Clostridium difficile diarrhea: Status: Acute Assessment & Plan: Treatment started in acute care and continued on oral Vancomycin as recommended by ID for total of 30 days OBJECTIVE Most recent vital signs: Last Vital Signs Temp 97.0 F 11/23/24 06:00 Pulse 92 11/23/24 06:56 Resp 35 H 11/23/24 06:56 BP 129/74 11/23/24 06:00 Pulse Ox 96 11/23/24 06:56 O2 Del Method Mechanical Ventilation 11/22/24 06:00 FiO2 40 11/23/24 06:56 ASSESSMENT & PLAN Assessment: 69 yrs of age female being re-admitted to [facility] with Hypertension/hyperlipidemia/epilepsy, recently treated in acute care for UTI sepsis with and on Rocephin one gram daily iv x 4 days. chronic encephalopathy/ chronic respiratory failure/ Ventilator dependent/Trach and feeding G tube as before. VSS , no pain issues. Continued on Vancomycin for C. Diff. tolerating it well.
[2024-11-23] MEDS: ATORVASTATIN 20 MG TABLET 40 MG GT (20:23)
[2024-11-24] VITALS (7 sets, daily range): BP systolic 98–116; BP diastolic 66–70; PULSE 58–82; RESP 24–33; TEMP 36.1–36.4; O2SAT 96–99
[2024-11-24] MEDS: DEX/HYPRO/GLY ARTIFICAL TEARS 225 DROP/15 ML BTL BOTH EYES ×3 (05:38→21:35)
[2024-11-24] MEDS: VALPROIC ACID 250 MG/5 ML 500 MG GT ×4 (05:38→21:36)
[2024-11-24] MEDS: ASPIRIN 81 MG TAB.CHEW GT (09:24)
[2024-11-24] MEDS: BUSPIRONE 10 MG TABLET GT ×2 (09:26→20:31)
[2024-11-24] MEDS: CHOLECALCIFEROL (VITAMIN D3) 25 MCG TABLET GT ×2 (09:26→20:31)
[2024-11-24] MEDS: ENOXAPARIN SODIUM 40 MG/0.4 ML SYRINGE SC (09:27)
[2024-11-24] MEDS: ACETAMINOPHEN 325 MG TABLET 650 MG GT (20:30)
[2024-11-24] MEDS: ATORVASTATIN 20 MG TABLET 40 MG GT (20:31)
[2024-11-25] VITALS (8 sets, daily range): BP systolic 107–121; BP diastolic 63–78; PULSE 69–95; RESP 18–43; TEMP 36–36.6; O2SAT 95–100
[2024-11-25] MEDS: DEX/HYPRO/GLY ARTIFICAL TEARS 225 DROP/15 ML BTL BOTH EYES ×3 (05:35→21:12)
[2024-11-25 07:56] LABS: Basophils # (Auto) 0.2 Thou/mm3 (0.0-0.2); Basophils % (Auto) 1 % (0-2.5); Eosinophils # (Auto) 0.7 Thou/mm3 (0.0-0.5); Eosinophils % (Auto) 5 % (0-10); Hematocrit 26.1 % (36.0-46.0); Immature Granulocytes Auto 0.84 Thou/mm3 (0.00-0.00); Lymphocytes # (Auto) 3.2 Thou/mm3 (1.0-4.8); Lymphocytes % (Auto) 23 % (10-50); Mean Corpuscular HGB Conc 32.6 g/dl (31.0-37.0); Mean Corpuscular Hemoglobin 29.8 pg (25.0-35.0); Mean Corpuscular Volume 92 fL (80-100); Monocytes # (Auto) 1.6 Thou/mm3 (0.0-0.8); Monocytes % (Auto) 11 % (0-12); Neutrophils # (Auto) 7.6 Thou/mm3 (1.8-7.7); Neutrophils % (Auto) 54 % (37-80); Nucleated Red Blood Cell # 0.00 Thou/mm3 (0.00-0.00); Nucleated Red Blood Cell % 0 /100 WBC (0); Platelet Count 552 Thou/mm3 (140-440); RDW Standard Deviation 58.5 fL (36.4-46.3); Red Blood Count 2.85 Miln/mm3 (4.00-5.20); White Blood Count 14.1 Thou/mm3 (3.6-11.0)
[2024-11-25 08:02] LABS: Hemoglobin 8.5 g/dL (12.0-16.0)
[2024-11-25 08:21] LABS: Alanine Aminotransferase 7 U/L (10-49); Albumin, Serum 3.6 gm/dL (3.4-4.8); Albumin/Globulin Ratio 1.3 (1.2-2.2); Alkaline Phosphatase 65 U/L (46-116); Anion Gap 11 (7-16); Aspartate Amino Transferase 11 U/L (0-34); BUN/Creatinine Ratio 24 Ratio (12-20); Bilirubin,Total 0.2 mg/dL (0.3-1.2); Blood Urea Nitrogen 12 mg/dL (9-23); Calcium 10.0 mg/dL (8.3-10.6); Calcium (Corrected) 10.3 mg/dL (8.5-10.1); Carbon Dioxide 32.5 mMol/L (20.0-31.0); Chloride 90 mMol/L (98-107); Creatinine (Component) 0.5 mg/dL (0.6-1.3); Estimated Creatinine Clearance 102.0 mL/min (>60); Globulin 2.7 gm/dL (2.3-3.5); Glucose 151 mg/dL (74-106); Glucose,Fasting 151 mg/dL (74-106); Osmolality,Calculated 269 (275-295); Potassium 4.4 mMol/L (3.4-5.1); Sodium 133 mMol/L (136-145); Total Protein 6.3 gm/dL (5.7-8.2); eGFR > 60 See Note
[2024-11-25 08:35] LABS: Glucose Estimated Average 117 mg/dL (80-131); Hemoglobin A1C 5.7 % Hgb (4.8-6.0)
[2024-11-25] MEDS: ASPIRIN 81 MG TAB.CHEW GT (08:38)
[2024-11-25] MEDS: CHOLECALCIFEROL (VITAMIN D3) 25 MCG TABLET GT ×2 (08:39→20:34)
[2024-11-25] MEDS: BUSPIRONE 10 MG TABLET GT ×2 (08:39→20:33)
[2024-11-25] MEDS: ENOXAPARIN SODIUM 40 MG/0.4 ML SYRINGE SC (08:40)
[2024-11-25] MEDS: VALPROIC ACID 250 MG/5 ML 500 MG GT ×2 (13:28→21:12)
[2024-11-25] MEDS: ATORVASTATIN 20 MG TABLET 40 MG GT (20:32)
[2024-11-25] MEDS: ACETAMINOPHEN 325 MG TABLET 650 MG GT (20:40)
[2024-11-26] VITALS (8 sets, daily range): BP systolic 99–126; BP diastolic 62–79; PULSE 64–84; RESP 18–31; TEMP 36–36.2; O2SAT 96–100
--- NOTE | 2024-11-26 02:42 | PC.NURSE ---
Resident currently receiving Vancomycin 125 mg TID via G-tube for 7 days for treatment of C. difficile infection, as per MD order. Medication administered as scheduled; resident is tolerating well with no adverse reactions or side effects noted at this time. Resident also receiving Kefir plain yogurt 120 mL daily ? 30 days per MD order; tolerated well. Resident continues to have loose bowel movements, with 2 episodes noted so far this shift. Will continue to monitor gastrointestinal status and report any changes
[2024-11-26] MEDS: VALPROIC ACID 250 MG/5 ML 500 MG GT ×3 (05:00→21:20)
[2024-11-26] MEDS: DEX/HYPRO/GLY ARTIFICAL TEARS 225 DROP/15 ML BTL BOTH EYES ×3 (05:00→21:20)
[2024-11-26] MEDS: ASPIRIN 81 MG TAB.CHEW GT (09:14)
[2024-11-26] MEDS: CHOLECALCIFEROL (VITAMIN D3) 25 MCG TABLET GT ×2 (09:14→21:21)
[2024-11-26] MEDS: BUSPIRONE 10 MG TABLET GT (09:14)
[2024-11-26] MEDS: SODIUM CHLORIDE TAB 1,000 MG TABLET.SOL 1000 MG GT (09:15)
[2024-11-26] MEDS: ACETAMINOPHEN 325 MG TABLET 650 MG GT ×2 (09:16→20:11)
[2024-11-26] MEDS: ENOXAPARIN SODIUM 40 MG/0.4 ML SYRINGE SC (09:17)
[2024-11-26] MEDS: guaiFENesin Liq 100 MG/5 ML LIQUID 300 MG GT (09:17)
--- NOTE | 2024-11-26 11:30 | PC.IP ---
Resident has history of refusals of any vaccines and RP, resident's sister has not agreed to consent to vaccines for Ms. Ennis.
[2024-11-26] MEDS: ATORVASTATIN 20 MG TABLET 40 MG GT (21:21)
[2024-11-27] VITALS (8 sets, daily range): BP systolic 98–104; BP diastolic 64–71; PULSE 71–92; RESP 18–33; TEMP 36.3–37; O2SAT 97–98
[2024-11-27] MEDS: DEX/HYPRO/GLY ARTIFICAL TEARS 225 DROP/15 ML BTL BOTH EYES ×3 (05:29→20:59)
[2024-11-27] MEDS: VALPROIC ACID 250 MG/5 ML 500 MG GT ×3 (05:29→20:59)
[2024-11-27] MEDS: ENOXAPARIN SODIUM 40 MG/0.4 ML SYRINGE SC (09:53)
[2024-11-27] MEDS: CHOLECALCIFEROL (VITAMIN D3) 25 MCG TABLET GT ×2 (09:53→20:58)
[2024-11-27] MEDS: ASPIRIN 81 MG TAB.CHEW GT (09:53)
[2024-11-27] MEDS: SODIUM CHLORIDE TAB 1,000 MG TABLET.SOL 1000 MG GT (09:56)
[2024-11-27] MEDS: BUSPIRONE 10 MG TABLET GT ×2 (13:56→20:57)
[2024-11-27] MEDS: ACETAMINOPHEN 325 MG TABLET 650 MG GT (20:40)
[2024-11-27] MEDS: ATORVASTATIN 20 MG TABLET 40 MG GT (20:55)
[2024-11-28] VITALS (8 sets, daily range): BP systolic 100–123; BP diastolic 61–76; PULSE 76–94; RESP 19–31; TEMP 36.1–36.5; O2SAT 97–99
[2024-11-28] MEDS: DEX/HYPRO/GLY ARTIFICAL TEARS 225 DROP/15 ML BTL BOTH EYES ×3 (05:14→21:11)
[2024-11-28] MEDS: VALPROIC ACID 250 MG/5 ML 500 MG GT ×3 (05:14→21:11)
--- NOTE | 2024-11-28 05:44 | PC.NURSE ---
no side effects to Vanco protocol at this time
[2024-11-28 08:16] LABS: Anion Gap 10 (7-16); Carbon Dioxide 33.2 mMol/L (20.0-31.0); Chloride 92 mMol/L (98-107); Potassium 4.5 mMol/L (3.4-5.1); Sodium 135 mMol/L (136-145)
--- NOTE | 2024-11-28 08:57 | PC.NURSE ---
. aware sodium level was 135, no new order received.
--- NOTE | 2024-11-28 09:00 | PD.SAPROG ---
Progress Note - SubAcute DIAGNOSIS (1) Chronic anoxic encephalopathy: Status: Chronic (2) Chronic respiratory failure: Status: Chronic (3) Ventilator dependent: Status: Chronic (4) Seizures: Status: Chronic (5) Essential hypertension: Status: Chronic (6) PEG (percutaneous endoscopic gastrostomy) status: Status: Chronic (7) Tracheostomy dependence: Status: Chronic (8) Clostridium difficile diarrhea: Status: Acute SUBJECTIVE Fever:: none Shortness of Breath:: none Pain:: none OBJECTIVE Most recent vital signs: Last Vital Signs Temp 96.9 F 11/28/24 06:00 Pulse 88 11/28/24 06:35 Resp 20 11/28/24 06:35 BP 123/76 11/28/24 06:00 Pulse Ox 98 11/28/24 06:35 O2 Del Method Mechanical Ventilation 11/27/24 06:00 FiO2 40 11/28/24 06:35 Neurological:: eye tracking (some minimal appropriate response in gesture to simple command) Speech:: nods head Answers questions:: sometimes (gestures) Respiratory:: lungs clear Cardiovascular: RRR Abdomen: soft Extremities:: deformities Tracheostomy:: to ventilator Feeding per:: G tube Complaints:: none ASSESSMENT & PLAN Assessment: 69 yrs of age female being re-admitted to [facility] with Hypertension/hyperlipidemia/epilepsy, recently treated in acute care for UTI sepsis with and on Rocephin one gram daily iv x 4 days. chronic encephalopathy/ chronic respiratory failure/ Ventilator dependent/Trach and feeding G tube as before. VSS , no pain issues. Continued on Vancomycin for C. Diff. tolerating it well.
[2024-11-28] MEDS: ASPIRIN 81 MG TAB.CHEW GT (09:22)
[2024-11-28] MEDS: BUSPIRONE 10 MG TABLET GT ×2 (09:22→21:11)
[2024-11-28] MEDS: CHOLECALCIFEROL (VITAMIN D3) 25 MCG TABLET GT ×2 (09:23→21:11)
[2024-11-28] MEDS: ENOXAPARIN SODIUM 40 MG/0.4 ML SYRINGE SC (09:24)
[2024-11-28] MEDS: SODIUM CHLORIDE TAB 1,000 MG TABLET.SOL 1000 MG GT (09:24)
--- NOTE | 2024-11-28 14:39 | PC.SS ---
Resident remains on vent with trach in place and GT for medication and nutrition. Resident is unable to make needs known, data entry representative will continue to make all medical decisions for resident. Resident will remain in current care as resident is not ready to DC to lower level of care, she will continue to have all subacute care needs met by staff. Remains in Contact Isolation for C-Diff.
[2024-11-28] MEDS: guaiFENesin Liq 100 MG/5 ML LIQUID 300 MG GT (17:54)
[2024-11-28] MEDS: ACETAMINOPHEN 325 MG TABLET 650 MG GT (17:55)
[2024-11-28] MEDS: ATORVASTATIN 20 MG TABLET 40 MG GT (21:11)
[2024-11-29] VITALS (8 sets, daily range): BP systolic 96–110; BP diastolic 60–76; PULSE 72–87; RESP 18–29; TEMP 36.1–36.6; O2SAT 98–99
[2024-11-29] MEDS: DEX/HYPRO/GLY ARTIFICAL TEARS 225 DROP/15 ML BTL BOTH EYES ×3 (05:16→21:07)
[2024-11-29] MEDS: VALPROIC ACID 250 MG/5 ML 500 MG GT ×3 (05:16→21:07)
[2024-11-29] MEDS: BUSPIRONE 10 MG TABLET GT ×2 (09:18→21:06)
[2024-11-29] MEDS: ASPIRIN 81 MG TAB.CHEW GT (09:18)
[2024-11-29] MEDS: CHOLECALCIFEROL (VITAMIN D3) 25 MCG TABLET GT ×2 (09:19→21:06)
[2024-11-29] MEDS: SODIUM CHLORIDE TAB 1,000 MG TABLET.SOL 1000 MG GT (09:20)
[2024-11-29] MEDS: ENOXAPARIN SODIUM 40 MG/0.4 ML SYRINGE SC (09:20)
--- NOTE | 2024-11-29 17:07 | PC.NURSE ---
Resident remains on ABT. therapy. No A/R noted from abt. Tolerating it well. Resident remains on contact precautions for C-Diff.
[2024-11-29] MEDS: ACETAMINOPHEN 325 MG TABLET 650 MG GT (20:50)
[2024-11-29] MEDS: ATORVASTATIN 20 MG TABLET 40 MG GT (21:06)
[2024-11-30] VITALS (8 sets, daily range): BP systolic 100–138; BP diastolic 58–80; PULSE 70–79; RESP 21–30; TEMP 36.2–36.8; O2SAT 98–99
[2024-11-30] MEDS: VALPROIC ACID 250 MG/5 ML 500 MG GT ×3 (05:51→21:27)
[2024-11-30] MEDS: DEX/HYPRO/GLY ARTIFICAL TEARS 225 DROP/15 ML BTL BOTH EYES ×3 (05:51→21:27)
[2024-11-30] MEDS: ASPIRIN 81 MG TAB.CHEW GT (08:54)
[2024-11-30] MEDS: CHOLECALCIFEROL (VITAMIN D3) 25 MCG TABLET GT ×2 (08:55→21:27)
[2024-11-30] MEDS: ENOXAPARIN SODIUM 40 MG/0.4 ML SYRINGE SC (08:55)
[2024-11-30] MEDS: BUSPIRONE 10 MG TABLET GT ×2 (08:55→21:26)
[2024-11-30] MEDS: SODIUM CHLORIDE TAB 1,000 MG TABLET.SOL 1000 MG GT (08:56)
[2024-11-30] MEDS: ATORVASTATIN 20 MG TABLET 40 MG GT (21:26)
[2024-12-01] VITALS (8 sets, daily range): BP systolic 112–117; BP diastolic 65–78; PULSE 76–93; RESP 19–35; TEMP 36.4–36.8; O2SAT 96–99
[2024-12-01] MEDS: ACETAMINOPHEN 325 MG TABLET 650 MG GT (04:57)
[2024-12-01] MEDS: DEX/HYPRO/GLY ARTIFICAL TEARS 225 DROP/15 ML BTL BOTH EYES ×3 (04:59→22:00)
[2024-12-01] MEDS: VALPROIC ACID 250 MG/5 ML 500 MG GT ×3 (05:00→22:00)
--- NOTE | 2024-12-01 07:18 | PC.NURSE ---
Late Entry for 11/30/2024 DAY shift: Patient is on Vanco ABT therapy. No A/R noted. Tolerating well. Patient remains on contact precautions for active C-Diff.
[2024-12-01] MEDS: ASPIRIN 81 MG TAB.CHEW GT (08:48)
[2024-12-01] MEDS: CHOLECALCIFEROL (VITAMIN D3) 25 MCG TABLET GT ×2 (08:49→20:45)
[2024-12-01] MEDS: BUSPIRONE 10 MG TABLET GT ×2 (08:49→20:45)
[2024-12-01] MEDS: ENOXAPARIN SODIUM 40 MG/0.4 ML SYRINGE SC (08:50)
[2024-12-01] MEDS: SODIUM CHLORIDE TAB 1,000 MG TABLET.SOL 1000 MG GT (08:50)
[2024-12-01] MEDS: ATORVASTATIN 20 MG TABLET 40 MG GT (20:45)
[2024-12-02] VITALS (8 sets, daily range): BP systolic 100–127; BP diastolic 65–78; PULSE 73–84; RESP 18–38; TEMP 36.2–36.6; O2SAT 96–99
[2024-12-02] MEDS: DEX/HYPRO/GLY ARTIFICAL TEARS 225 DROP/15 ML BTL BOTH EYES ×3 (05:26→21:29)
[2024-12-02] MEDS: VALPROIC ACID 250 MG/5 ML 500 MG GT ×3 (05:26→21:29)
[2024-12-02 08:54] LABS: Levetiracetam (Keppra)* 28.9 mcg/mL (6.0-46.0)
[2024-12-02] MEDS: BUSPIRONE 10 MG TABLET GT ×2 (09:00→21:27)
[2024-12-02] MEDS: ENOXAPARIN SODIUM 40 MG/0.4 ML SYRINGE SC (09:00)
[2024-12-02] MEDS: ASPIRIN 81 MG TAB.CHEW GT (09:01)
[2024-12-02] MEDS: CHOLECALCIFEROL (VITAMIN D3) 25 MCG TABLET GT ×2 (09:01→21:29)
[2024-12-02] MEDS: SODIUM CHLORIDE TAB 1,000 MG TABLET.SOL 1000 MG GT (09:03)
--- NOTE | 2024-12-02 14:27 | PC.NURSE ---
Patient is on Vanco ABT therapy. No A/R noted. Tolerating well. Patient remains on contact precautions for active C-Diff.
--- NOTE | 2024-12-02 21:10 | PD.SAPROG ---
Progress Note - SubAcute DIAGNOSIS (1) Chronic anoxic encephalopathy: Status: Chronic (2) Chronic respiratory failure: Status: Chronic (3) Ventilator dependent: Status: Chronic (4) Seizures: Status: Chronic (5) Essential hypertension: Status: Chronic (6) PEG (percutaneous endoscopic gastrostomy) status: Status: Chronic (7) Tracheostomy dependence: Status: Chronic (8) Clostridium difficile diarrhea: Status: Acute SUBJECTIVE Fever:: none Shortness of Breath:: none Pain:: none OBJECTIVE Most recent vital signs: Last Vital Signs Temp 97.1 F 12/06/24 17:16 Pulse 76 12/06/24 17:16 Resp 21 H 12/06/24 17:16 BP 98/54 L 12/06/24 17:16 Pulse Ox 98 12/06/24 17:13 O2 Del Method Mechanical Ventilation 12/05/24 17:43 FiO2 35 12/06/24 17:13 Neurological:: eye tracking (some minimal appropriate response in gesture to simple command) Speech:: nods head Answers questions:: sometimes (gestures) Respiratory:: lungs clear Cardiovascular: RRR Abdomen: soft Extremities:: deformities Tracheostomy:: to ventilator Feeding per:: G tube Complaints:: none ASSESSMENT & PLAN Assessment: 69 yrs of age female being re-admitted to [facility] with Hypertension/hyperlipidemia/epilepsy, recently treated in acute care for UTI sepsis with and on Rocephin one gram daily iv x 4 days. chronic encephalopathy/ chronic respiratory failure/ Ventilator dependent/Trach and feeding G tube as before. VSS , no pain issues. Continued on Vancomycin for C. Diff. tolerating it well. No new issues. Occasional loose stool still .VSS
[2024-12-02] MEDS: ATORVASTATIN 20 MG TABLET 40 MG GT (21:29)
[2024-12-03] VITALS (9 sets, daily range): BP systolic 104–125; BP diastolic 66–83; PULSE 74–101; RESP 18–37; TEMP 36.5–36.7; O2SAT 96–100
--- NOTE | 2024-12-03 01:01 | PC.NURSE ---
pt is on vancomycin ABT therapy for active C-DIFF. No ADRs noted. pt is tolerating ATB well and remains on contact precautions.
[2024-12-03] MEDS: DEX/HYPRO/GLY ARTIFICAL TEARS 225 DROP/15 ML BTL BOTH EYES ×3 (05:53→21:00)
[2024-12-03] MEDS: VALPROIC ACID 250 MG/5 ML 500 MG GT ×3 (05:53→21:00)
[2024-12-03] MEDS: ASPIRIN 81 MG TAB.CHEW GT (09:50)
[2024-12-03] MEDS: CHOLECALCIFEROL (VITAMIN D3) 25 MCG TABLET GT ×2 (09:50→20:40)
[2024-12-03] MEDS: BUSPIRONE 10 MG TABLET GT ×2 (09:50→20:39)
[2024-12-03] MEDS: ENOXAPARIN SODIUM 40 MG/0.4 ML SYRINGE SC (09:51)
[2024-12-03] MEDS: SODIUM CHLORIDE TAB 1,000 MG TABLET.SOL 1000 MG GT (09:51)
--- NOTE | 2024-12-03 18:48 | PC.NURSE ---
Pt remains on abt therapy for cdiff. No s/s of adverse reactions. Tolerating well. Will continue to monitor. --Ja
[2024-12-03] MEDS: ATORVASTATIN 20 MG TABLET 40 MG GT (20:40)
[2024-12-03] MEDS: ACETAMINOPHEN 325 MG TABLET 650 MG GT (20:43)
[2024-12-04] VITALS (7 sets, daily range): BP systolic 101–113; BP diastolic 60–73; PULSE 77–85; RESP 18–24; TEMP 36.2–36.3; O2SAT 97–98; BMI 31.6
[2024-12-04] MEDS: VALPROIC ACID 250 MG/5 ML 500 MG GT ×3 (05:48→21:50)
[2024-12-04] MEDS: DEX/HYPRO/GLY ARTIFICAL TEARS 225 DROP/15 ML BTL BOTH EYES ×3 (05:48→21:46)
[2024-12-04] MEDS: BUSPIRONE 10 MG TABLET GT ×2 (09:48→21:42)
[2024-12-04] MEDS: ASPIRIN 81 MG TAB.CHEW GT (09:49)
[2024-12-04] MEDS: CHOLECALCIFEROL (VITAMIN D3) 25 MCG TABLET GT ×2 (09:49→21:45)
[2024-12-04] MEDS: SODIUM CHLORIDE TAB 1,000 MG TABLET.SOL 1000 MG GT (09:50)
[2024-12-04] MEDS: ENOXAPARIN SODIUM 40 MG/0.4 ML SYRINGE SC (09:50)
--- NOTE | 2024-12-04 18:24 | PC.NURSE ---
Resident remains on vancomycin PGT for c diff. Noted with 3-4x loose stool sometimes. Called Dr Silverio and made aware and order lab to monitor hydration.
[2024-12-04 20:36] LABS: Alanine Aminotransferase < 7 U/L (10-49); Albumin, Serum 3.9 gm/dL (3.4-4.8); Albumin/Globulin Ratio 1.6 (1.2-2.2); Alkaline Phosphatase 64 U/L (46-116); Anion Gap 9 (7-16); Aspartate Amino Transferase 11 U/L (0-34); BUN/Creatinine Ratio 22 Ratio (12-20); Bilirubin,Total 0.2 mg/dL (0.3-1.2); Blood Urea Nitrogen 13 mg/dL (9-23); Calcium 9.4 mg/dL (8.3-10.6); Calcium (Corrected) 9.5 mg/dL (8.5-10.1); Carbon Dioxide 31.4 mMol/L (20.0-31.0); Chloride 95 mMol/L (98-107); Creatinine (Component) 0.6 mg/dL (0.6-1.3); Estimated Creatinine Clearance 85.9 mL/min (>60); Globulin 2.5 gm/dL (2.3-3.5); Glucose 156 mg/dL (74-106); Osmolality,Calculated 273 (275-295); Potassium 4.0 mMol/L (3.4-5.1); Sodium 135 mMol/L (136-145); Total Protein 6.4 gm/dL (5.7-8.2); eGFR > 60 See Note
[2024-12-04] MEDS: ATORVASTATIN 20 MG TABLET 40 MG GT (21:45)
[2024-12-04] MEDS: ACETAMINOPHEN 325 MG TABLET 650 MG GT (21:50)
[2024-12-05] VITALS (8 sets, daily range): BP systolic 91–108; BP diastolic 57–66; PULSE 71–86; RESP 20–30; TEMP 36.1–36.7; O2SAT 98–100
--- NOTE | 2024-12-05 04:40 | PC.NURSE ---
Resident is currently receiving Vancomycin 125 mg BID. No loose stools observed during this shift. There are no signs or symptoms of any adverse reactions to the medication. The resident is resting quietly with eyes closed and appears comfortable at this time.
[2024-12-05] MEDS: DEX/HYPRO/GLY ARTIFICAL TEARS 225 DROP/15 ML BTL BOTH EYES ×3 (06:03→21:37)
[2024-12-05] MEDS: VALPROIC ACID 250 MG/5 ML 500 MG GT ×3 (06:05→21:38)
[2024-12-05] MEDS: ASPIRIN 81 MG TAB.CHEW GT (09:20)
[2024-12-05] MEDS: BUSPIRONE 10 MG TABLET GT ×2 (09:20→21:33)
[2024-12-05] MEDS: CHOLECALCIFEROL (VITAMIN D3) 25 MCG TABLET GT ×2 (09:21→21:34)
[2024-12-05] MEDS: ENOXAPARIN SODIUM 40 MG/0.4 ML SYRINGE SC (09:22)
[2024-12-05] MEDS: SODIUM CHLORIDE TAB 1,000 MG TABLET.SOL 1000 MG GT (09:24)
--- NOTE | 2024-12-05 11:33 | PC.SS ---
Resident remains on vent with trach in place and GT for medication and nutrition. Resident is unable to make needs known, corporate sales representative will continue to make all medical decisions for resident. Resident will remain in current care as resident is not ready to DC to lower level of care, she will continue to have all subacute care needs met by staff. Remains in Contact Isolation for C-Diff and on ATB IV.
[2024-12-05] MEDS: ATORVASTATIN 20 MG TABLET 40 MG GT (21:33)
[2024-12-06] VITALS (8 sets, daily range): BP systolic 92–115; BP diastolic 54–68; PULSE 76–89; RESP 20–29; TEMP 36.2–36.6; O2SAT 97–99
[2024-12-06] MEDS: VALPROIC ACID 250 MG/5 ML 500 MG GT ×3 (05:25→21:31)
[2024-12-06] MEDS: DEX/HYPRO/GLY ARTIFICAL TEARS 225 DROP/15 ML BTL BOTH EYES ×3 (05:25→21:31)
--- NOTE | 2024-12-06 09:49 | PC.NURSE ---
Resident remains on antibiotic Vancomycin via GT. for C-Diff. No adverse reactions noted from ABT. loose stools decreasing. Remains on Contact precautions. Will continue to monitor.
[2024-12-06] MEDS: ASPIRIN 81 MG TAB.CHEW GT (10:00)
[2024-12-06] MEDS: BUSPIRONE 10 MG TABLET GT ×2 (10:00→21:29)
[2024-12-06] MEDS: ENOXAPARIN SODIUM 40 MG/0.4 ML SYRINGE SC (10:01)
[2024-12-06] MEDS: SODIUM CHLORIDE TAB 1,000 MG TABLET.SOL 1000 MG GT (10:01)
[2024-12-06] MEDS: CHOLECALCIFEROL (VITAMIN D3) 25 MCG TABLET GT ×2 (10:01→21:30)
[2024-12-06] MEDS: ACETAMINOPHEN 325 MG TABLET 650 MG GT ×2 (14:15→21:30)
[2024-12-06] MEDS: guaiFENesin Liq 100 MG/5 ML LIQUID 300 MG GT (14:15)
[2024-12-06] MEDS: ATORVASTATIN 20 MG TABLET 40 MG GT (21:29)
--- NOTE | 2024-12-06 21:57 | ESPR_ITS ---
Progress Note - SubAcute DIAGNOSIS (1) Chronic anoxic encephalopathy: Status: Chronic (2) Chronic respiratory failure: Status: Chronic (3) Ventilator dependent: Status: Chronic (4) Seizures: Status: Chronic (5) Essential hypertension: Status: Chronic (6) PEG (percutaneous endoscopic gastrostomy) status: Status: Chronic (7) Tracheostomy dependence: Status: Chronic (8) Clostridium difficile diarrhea: Status: Acute SUBJECTIVE Fever:: none Shortness of Breath:: none Pain:: none OBJECTIVE Most recent vital signs: Last Vital Signs Temp 97.1 F 12/06/24 17:16 Pulse 76 12/06/24 17:16 Resp 21 H 12/06/24 17:16 BP 98/54 L 12/06/24 17:16 Pulse Ox 98 12/06/24 17:13 O2 Del Method Mechanical Ventilation 12/05/24 17:43 FiO2 35 12/06/24 17:13 Neurological:: eye tracking (some minimal appropriate response in gesture to simple command) Speech:: nods head Answers questions:: sometimes (gestures) Respiratory:: lungs clear Cardiovascular: RRR Abdomen: soft Extremities:: deformities Tracheostomy:: to ventilator Feeding per:: G tube Complaints:: none ASSESSMENT & PLAN Assessment: 69 yrs of age female being re-admitted to [facility] with Hypertension/hyperlipidemia/epilepsy, recently treated in acute care for UTI sepsis with and on Rocephin one gram daily iv x 4 days. chronic encephalopathy/ chronic respiratory failure/ Ventilator dependent/Trach and feeding G tube as before. VSS , no pain issues. Continued on Vancomycin for C. Diff. tolerating it well. No new issues. Occasional loose stool still .VSS
[2024-12-07] VITALS (8 sets, daily range): BP systolic 98–137; BP diastolic 63–83; PULSE 74–90; RESP 20–35; TEMP 36.2–36.5; O2SAT 97–99
--- NOTE | 2024-12-07 02:10 | PC.NURSE ---
resident tolerating antibx well no s/s of any reaction
[2024-12-07] MEDS: DEX/HYPRO/GLY ARTIFICAL TEARS 225 DROP/15 ML BTL BOTH EYES ×3 (06:05→22:05)
[2024-12-07] MEDS: VALPROIC ACID 250 MG/5 ML 500 MG GT ×3 (06:05→22:05)
[2024-12-07] MEDS: BUSPIRONE 10 MG TABLET GT ×2 (09:39→20:05)
[2024-12-07] MEDS: ASPIRIN 81 MG TAB.CHEW GT (09:40)
[2024-12-07] MEDS: CHOLECALCIFEROL (VITAMIN D3) 25 MCG TABLET GT ×2 (09:40→20:09)
[2024-12-07] MEDS: SODIUM CHLORIDE TAB 1,000 MG TABLET.SOL 1000 MG GT (09:41)
[2024-12-07] MEDS: ACETAMINOPHEN 325 MG TABLET 650 MG GT ×2 (09:42→16:10)
[2024-12-07] MEDS: guaiFENesin Liq 100 MG/5 ML LIQUID 300 MG GT ×2 (09:42→16:10)
[2024-12-07] MEDS: ENOXAPARIN SODIUM 40 MG/0.4 ML SYRINGE SC (09:46)
--- NOTE | 2024-12-07 17:24 | PC.NURSE ---
Resident continues on ABX Vancomycin for C-Diff.No loose stools this shift. No adverse reaction from ABX. Vital signs within normal parameters.
[2024-12-07] MEDS: ATORVASTATIN 20 MG TABLET 40 MG GT (20:08)
[2024-12-08] VITALS (8 sets, daily range): BP systolic 94–123; BP diastolic 59–72; PULSE 71–81; RESP 18–26; TEMP 36.3–36.9; O2SAT 94–98
[2024-12-08] MEDS: VALPROIC ACID 250 MG/5 ML 500 MG GT ×3 (05:11→21:28)
[2024-12-08] MEDS: DEX/HYPRO/GLY ARTIFICAL TEARS 225 DROP/15 ML BTL BOTH EYES ×3 (05:11→21:28)
[2024-12-08] MEDS: SODIUM CHLORIDE TAB 1,000 MG TABLET.SOL 1000 MG GT (08:02)
[2024-12-08] MEDS: ENOXAPARIN SODIUM 40 MG/0.4 ML SYRINGE SC (08:03)
[2024-12-08] MEDS: CHOLECALCIFEROL (VITAMIN D3) 25 MCG TABLET GT ×2 (08:03→20:41)
[2024-12-08] MEDS: BUSPIRONE 10 MG TABLET GT ×2 (08:03→20:44)
[2024-12-08] MEDS: ASPIRIN 81 MG TAB.CHEW GT (08:03)
[2024-12-08] MEDS: ACETAMINOPHEN 325 MG TABLET 650 MG GT ×2 (14:17→20:30)
[2024-12-08] MEDS: guaiFENesin Liq 100 MG/5 ML LIQUID 300 MG GT (14:17)
[2024-12-08] MEDS: ATORVASTATIN 20 MG TABLET 40 MG GT (20:41)
[2024-12-09] VITALS (8 sets, daily range): BP systolic 93–123; BP diastolic 62–79; PULSE 24–81; RESP 18–37; TEMP 36.1–36.8; O2SAT 94–99
[2024-12-09] MEDS: DEX/HYPRO/GLY ARTIFICAL TEARS 225 DROP/15 ML BTL BOTH EYES ×3 (06:05→21:42)
[2024-12-09] MEDS: VALPROIC ACID 250 MG/5 ML 500 MG GT ×3 (06:05→21:42)
[2024-12-09] MEDS: BUSPIRONE 10 MG TABLET GT ×2 (09:03→21:39)
[2024-12-09] MEDS: ASPIRIN 81 MG TAB.CHEW GT (09:03)
[2024-12-09] MEDS: ENOXAPARIN SODIUM 40 MG/0.4 ML SYRINGE SC (09:04)
[2024-12-09] MEDS: CHOLECALCIFEROL (VITAMIN D3) 25 MCG TABLET GT ×2 (09:04→21:39)
[2024-12-09] MEDS: SODIUM CHLORIDE TAB 1,000 MG TABLET.SOL 1000 MG GT (09:05)
--- NOTE | 2024-12-09 09:40 | PC.NURSE ---
Patient is on Vanco ABT therapy. No A/R noted. Tolerating well. Patient remains on contact precautions for active C-Diff.
--- NOTE | 2024-12-09 18:29 | PC.NURSE ---
Resident remains on antibiotic therapy for C-diff > no side effects from medication noted at this time. Continue to have loose stools x2 during this shift. Continue contact precaution. Resident denied discomfort at the time of assessment.
[2024-12-09] MEDS: ATORVASTATIN 20 MG TABLET 40 MG GT (21:39)
[2024-12-09] MEDS: ACETAMINOPHEN 325 MG TABLET 650 MG GT (21:42)
[2024-12-10] VITALS (7 sets, daily range): BP systolic 92–112; BP diastolic 58–70; PULSE 64–84; RESP 21–34; TEMP 36.1; O2SAT 96–98
--- NOTE | 2024-12-10 04:08 | PC.NURSE ---
Resident continues on Vancomycin as prescribed for treatment of C. difficile infection. One episode of loose stool was observed during this shift. No signs or symptoms of adverse reactions or side effects from the medication have been noted at this time. Contact precautions remain in place, and staff continue to follow infection control protocols.
[2024-12-10] MEDS: VALPROIC ACID 250 MG/5 ML 500 MG GT ×3 (05:19→21:40)
[2024-12-10] MEDS: DEX/HYPRO/GLY ARTIFICAL TEARS 225 DROP/15 ML BTL BOTH EYES ×3 (05:19→21:40)
[2024-12-10] MEDS: BUSPIRONE 10 MG TABLET GT ×2 (08:57→20:09)
[2024-12-10] MEDS: ASPIRIN 81 MG TAB.CHEW GT (08:57)
[2024-12-10] MEDS: CHOLECALCIFEROL (VITAMIN D3) 25 MCG TABLET GT ×2 (08:58→20:09)
[2024-12-10] MEDS: ENOXAPARIN SODIUM 40 MG/0.4 ML SYRINGE SC (08:58)
[2024-12-10] MEDS: SODIUM CHLORIDE TAB 1,000 MG TABLET.SOL 1000 MG GT (08:58)
[2024-12-10] MEDS: ACETAMINOPHEN 325 MG TABLET 650 MG GT ×2 (08:59→20:05)
--- NOTE | 2024-12-10 12:03 | PC.NURSE ---
Patient continues on antibiotic therapy for C-diff . No adverse reactions noted. Tolerating well. Patient remains on contact precautions for active C-Diff.
[2024-12-10] MEDS: ATORVASTATIN 20 MG TABLET 40 MG GT (20:09)
--- NOTE | 2024-12-10 22:13 | PD.SAPROG ---
Progress Note - SubAcute DIAGNOSIS (1) Chronic anoxic encephalopathy: Status: Chronic (2) Chronic respiratory failure: Status: Chronic (3) Ventilator dependent: Status: Chronic (4) Seizures: Status: Chronic (5) Essential hypertension: Status: Chronic (6) PEG (percutaneous endoscopic gastrostomy) status: Status: Chronic (7) Tracheostomy dependence: Status: Chronic (8) Clostridium difficile diarrhea: Status: Acute SUBJECTIVE Fever:: none Shortness of Breath:: none Pain:: none OBJECTIVE Most recent vital signs: Last Vital Signs Temp 96.9 F 12/10/24 17:31 Pulse 79 12/10/24 17:31 Resp 29 H 12/10/24 17:31 BP 94/59 L 12/10/24 17:31 Pulse Ox 98 12/10/24 17:31 O2 Del Method Mechanical Ventilation 12/09/24 17:36 FiO2 35 12/10/24 12:11 Neurological:: eye tracking (some minimal appropriate response in gesture to simple command) Speech:: nods head Answers questions:: sometimes (gestures) Respiratory:: lungs clear Cardiovascular: RRR Abdomen: soft Extremities:: deformities Tracheostomy:: to ventilator Feeding per:: G tube Complaints:: none ASSESSMENT & PLAN Assessment: 69 yrs of age female being re-admitted to [facility] with Hypertension/hyperlipidemia/epilepsy, recently treated in acute care for UTI sepsis with and on Rocephin one gram daily iv x 4 days. chronic encephalopathy/ chronic respiratory failure/ Ventilator dependent/Trach and feeding G tube as before. VSS , no pain issues. Continued on Vancomycin for C. Diff. tolerating it well. No new issues. Occasional loose stool still .VSS
[2024-12-11] VITALS (8 sets, daily range): BP systolic 96–128; BP diastolic 62–80; PULSE 72–84; RESP 18–32; TEMP 36.1–36.8; O2SAT 95–99
[2024-12-11] MEDS: DEX/HYPRO/GLY ARTIFICAL TEARS 225 DROP/15 ML BTL BOTH EYES ×3 (05:26→21:07)
[2024-12-11] MEDS: VALPROIC ACID 250 MG/5 ML 500 MG GT ×3 (05:26→21:07)
--- NOTE | 2024-12-11 06:50 | PC.NURSE ---
resident tolerating antibx well
[2024-12-11] MEDS: BUSPIRONE 10 MG TABLET GT ×2 (09:06→21:05)
[2024-12-11] MEDS: ENOXAPARIN SODIUM 40 MG/0.4 ML SYRINGE SC (09:07)
[2024-12-11] MEDS: ASPIRIN 81 MG TAB.CHEW GT (09:07)
[2024-12-11] MEDS: CHOLECALCIFEROL (VITAMIN D3) 25 MCG TABLET GT ×2 (09:07→21:06)
[2024-12-11] MEDS: SODIUM CHLORIDE TAB 1,000 MG TABLET.SOL 1000 MG GT (09:08)
--- NOTE | 2024-12-11 19:04 | PC.NURSE ---
Remains on Vancomycin PGT for c diff positive, no adverse reaction noted. No s/s of pain or discomfort noted. GT feeding tolerated well. No s/s of dehydration noted. Extra fluids given PGT Remains on contact isolation.
[2024-12-11] MEDS: ACETAMINOPHEN 325 MG TABLET 650 MG GT (20:50)
[2024-12-11] MEDS: ATORVASTATIN 20 MG TABLET 40 MG GT (21:06)
[2024-12-12] VITALS (8 sets, daily range): BP systolic 93–128; BP diastolic 66–75; PULSE 66–90; RESP 22–39; TEMP 36.1–36.4; O2SAT 97–98
[2024-12-12] MEDS: DEX/HYPRO/GLY ARTIFICAL TEARS 225 DROP/15 ML BTL BOTH EYES ×3 (05:20→21:47)
[2024-12-12] MEDS: VALPROIC ACID 250 MG/5 ML 500 MG GT ×3 (05:20→21:47)
--- NOTE | 2024-12-12 05:57 | PC.NURSE ---
no s/s of any reaction to antibx noted this shift
[2024-12-12] MEDS: ASPIRIN 81 MG TAB.CHEW GT (08:58)
[2024-12-12] MEDS: CHOLECALCIFEROL (VITAMIN D3) 25 MCG TABLET GT ×2 (08:58→21:47)
[2024-12-12] MEDS: ENOXAPARIN SODIUM 40 MG/0.4 ML SYRINGE SC (08:58)
[2024-12-12] MEDS: SODIUM CHLORIDE TAB 1,000 MG TABLET.SOL 1000 MG GT (08:59)
[2024-12-12] MEDS: BUSPIRONE 10 MG TABLET GT ×2 (09:06→20:10)
[2024-12-12] MEDS: ACETAMINOPHEN 325 MG TABLET 650 MG GT (20:10)
[2024-12-12] MEDS: ATORVASTATIN 20 MG TABLET 40 MG GT (20:16)
[2024-12-13] VITALS (8 sets, daily range): BP systolic 93–108; BP diastolic 58–70; PULSE 64–88; RESP 21–38; TEMP 36.3–36.5; O2SAT 97–99
[2024-12-13] MEDS: DEX/HYPRO/GLY ARTIFICAL TEARS 225 DROP/15 ML BTL BOTH EYES ×3 (05:56→21:04)
[2024-12-13] MEDS: VALPROIC ACID 250 MG/5 ML 500 MG GT ×3 (05:57→22:45)
--- NOTE | 2024-12-13 07:07 | PC.NURSE ---
resident tolerating antibx no s/s of reaction
[2024-12-13] MEDS: ASPIRIN 81 MG TAB.CHEW GT (09:23)
[2024-12-13] MEDS: BUSPIRONE 10 MG TABLET GT ×2 (09:23→21:03)
[2024-12-13] MEDS: SODIUM CHLORIDE TAB 1,000 MG TABLET.SOL 1000 MG GT (09:24)
[2024-12-13] MEDS: CHOLECALCIFEROL (VITAMIN D3) 25 MCG TABLET GT ×2 (09:24→21:04)
[2024-12-13] MEDS: ACETAMINOPHEN 325 MG TABLET 650 MG GT ×2 (09:26→21:05)
[2024-12-13] MEDS: guaiFENesin Liq 100 MG/5 ML LIQUID 300 MG GT (09:26)
[2024-12-13] MEDS: ENOXAPARIN SODIUM 40 MG/0.4 ML SYRINGE SC (09:28)
--- NOTE | 2024-12-13 18:19 | PC.NURSE ---
Resident continues on ABX Vancomycin for C-Diff. No adverse reactions. Vital signs within normal parameters.
[2024-12-13] MEDS: ATORVASTATIN 20 MG TABLET 40 MG GT (21:03)
[2024-12-14] VITALS (8 sets, daily range): BP systolic 96–133; BP diastolic 58–80; PULSE 66–88; RESP 22–38; TEMP 36.1–36.2; O2SAT 96–99
[2024-12-14] MEDS: VALPROIC ACID 250 MG/5 ML 500 MG GT ×3 (05:46→21:33)
[2024-12-14] MEDS: DEX/HYPRO/GLY ARTIFICAL TEARS 225 DROP/15 ML BTL BOTH EYES ×3 (05:46→21:32)
[2024-12-14] MEDS: BUSPIRONE 10 MG TABLET GT ×2 (08:46→21:25)
[2024-12-14] MEDS: ASPIRIN 81 MG TAB.CHEW GT (08:46)
[2024-12-14] MEDS: CHOLECALCIFEROL (VITAMIN D3) 25 MCG TABLET GT ×2 (08:47→21:32)
[2024-12-14] MEDS: SODIUM CHLORIDE TAB 1,000 MG TABLET.SOL 1000 MG GT (08:48)
[2024-12-14] MEDS: ENOXAPARIN SODIUM 40 MG/0.4 ML SYRINGE SC (08:49)
--- NOTE | 2024-12-14 12:17 | PC.NURSE ---
Patient is on Vanco ABT therapy. No A/R noted. Tolerating well. Patient remains on contact precautions for active C-Diff.
--- NOTE | 2024-12-14 15:54 | PC.SS ---
Resident remains on vent with trach in place and GT for medication and nutrition. Resident is unable to make needs known, fuels sales representative will continue to make all medical decisions for resident. Resident will remain in current care as resident is not ready to DC to lower level of care, she will continue to have all subacute care needs met by staff. Remains in Contact Isolation for C-Diff and on ATB IV until 12/15/2024.
--- NOTE | 2024-12-14 16:21 | ESPR_ITS ---
Progress Note - SubAcute DIAGNOSIS (1) Chronic anoxic encephalopathy: Status: Chronic (2) Chronic respiratory failure: Status: Chronic (3) Ventilator dependent: Status: Chronic (4) Seizures: Status: Chronic (5) Essential hypertension: Status: Chronic (6) PEG (percutaneous endoscopic gastrostomy) status: Status: Chronic (7) Tracheostomy dependence: Status: Chronic (8) Clostridium difficile diarrhea: Status: Acute SUBJECTIVE Fever:: none Shortness of Breath:: none Pain:: none OBJECTIVE Most recent vital signs: Last Vital Signs Temp 96.9 F 12/14/24 06:00 Pulse 73 12/14/24 12:59 Resp 22 H 12/14/24 06:41 BP 133/80 H 12/14/24 06:00 Pulse Ox 98 12/14/24 12:59 O2 Del Method Mechanical Ventilation 12/13/24 06:00 FiO2 35 12/14/24 12:59 Neurological:: eye tracking (some minimal appropriate response in gesture to simple command) Speech:: nods head Answers questions:: sometimes (gestures) Respiratory:: lungs clear Cardiovascular: RRR Abdomen: soft Extremities:: deformities Tracheostomy:: to ventilator Feeding per:: G tube Complaints:: none ASSESSMENT & PLAN Assessment: 69 yrs of age female being re-admitted to [facility] with Hypertension/hyperlipidemia/epilepsy, recently treated in acute care for UTI sepsis with and on Rocephin one gram daily iv x 4 days. chronic encephalopathy/ chronic respiratory failure/ Ventilator dependent/Trach and feeding G tube as before. VSS , no pain issues. Continued on Vancomycin for C. Diff. tolerating it well. No new issues. Occasional loose stool still .VSS
[2024-12-14] MEDS: ATORVASTATIN 20 MG TABLET 40 MG GT (21:30)
[2024-12-14] MEDS: ACETAMINOPHEN 325 MG TABLET 650 MG GT (21:34)
[2024-12-15] VITALS (8 sets, daily range): BP systolic 123–143; BP diastolic 71–76; PULSE 71–87; RESP 22–33; TEMP 36.1–36.6; O2SAT 98–99
--- NOTE | 2024-12-15 01:55 | PC.NURSE ---
resident continues on antibiotics due to C-Diff. No adverse reactions noted. Noted to have a watery stool with each round in a moderate amount with no foul odor noted. klever-care provided after each episode and Tx applied to excoriation as ordered. Fluids tolerated well via g-tube. Medicated x1 for c/o generalized pain with positive results noted. Resident currently resting with eyes closed.
[2024-12-15] MEDS: DEX/HYPRO/GLY ARTIFICAL TEARS 225 DROP/15 ML BTL BOTH EYES ×3 (05:19→21:21)
[2024-12-15] MEDS: VALPROIC ACID 250 MG/5 ML 500 MG GT ×3 (05:24→21:21)
[2024-12-15] MEDS: BUSPIRONE 10 MG TABLET GT ×2 (08:53→21:17)
[2024-12-15] MEDS: CHOLECALCIFEROL (VITAMIN D3) 25 MCG TABLET GT ×2 (08:54→21:25)
[2024-12-15] MEDS: ASPIRIN 81 MG TAB.CHEW GT (08:54)
[2024-12-15] MEDS: ENOXAPARIN SODIUM 40 MG/0.4 ML SYRINGE SC (08:54)
[2024-12-15] MEDS: SODIUM CHLORIDE TAB 1,000 MG TABLET.SOL 1000 MG GT (08:55)
[2024-12-15] MEDS: CARBAMIDE PEROXIDE OTIC SOL 15 ML BTL 5 DROP BOTH EARS (08:56)
[2024-12-15] MEDS: ATORVASTATIN 20 MG TABLET 40 MG GT (21:17)
[2024-12-16] VITALS (7 sets, daily range): BP systolic 96–157; BP diastolic 59–79; PULSE 69–94; RESP 23–34; TEMP 36.1–36.4; O2SAT 96–99
[2024-12-16] MEDS: DEX/HYPRO/GLY ARTIFICAL TEARS 225 DROP/15 ML BTL BOTH EYES ×3 (05:22→21:01)
[2024-12-16] MEDS: VALPROIC ACID 250 MG/5 ML 500 MG GT ×3 (05:23→21:02)
[2024-12-16] MEDS: ASPIRIN 81 MG TAB.CHEW GT (09:04)
[2024-12-16] MEDS: BUSPIRONE 10 MG TABLET GT ×2 (09:04→21:00)
[2024-12-16] MEDS: CARBAMIDE PEROXIDE OTIC SOL 15 ML BTL 5 DROP BOTH EARS (09:05)
[2024-12-16] MEDS: CHOLECALCIFEROL (VITAMIN D3) 25 MCG TABLET GT ×2 (09:05→21:01)
[2024-12-16] MEDS: SODIUM CHLORIDE TAB 1,000 MG TABLET.SOL 1000 MG GT (09:06)
[2024-12-16] MEDS: ENOXAPARIN SODIUM 40 MG/0.4 ML SYRINGE SC (09:06)
[2024-12-16] MEDS: ATORVASTATIN 20 MG TABLET 40 MG GT (21:01)
[2024-12-17] VITALS (9 sets, daily range): BP systolic 100–161; BP diastolic 64–80; PULSE 74–96; RESP 16–36; TEMP 36.1–36.6; O2SAT 92–98
[2024-12-17] MEDS: DEX/HYPRO/GLY ARTIFICAL TEARS 225 DROP/15 ML BTL BOTH EYES ×2 (05:42→13:28)
[2024-12-17] MEDS: VALPROIC ACID 250 MG/5 ML 500 MG GT ×3 (05:43→21:00)
[2024-12-17] MEDS: ASPIRIN 81 MG TAB.CHEW GT (08:57)
[2024-12-17] MEDS: BUSPIRONE 10 MG TABLET GT ×2 (08:57→20:52)
[2024-12-17] MEDS: CARBAMIDE PEROXIDE OTIC SOL 15 ML BTL 5 DROP BOTH EARS (08:57)
[2024-12-17] MEDS: CHOLECALCIFEROL (VITAMIN D3) 25 MCG TABLET GT ×2 (08:57→20:53)
[2024-12-17] MEDS: ENOXAPARIN SODIUM 40 MG/0.4 ML SYRINGE SC (08:58)
[2024-12-17] MEDS: SODIUM CHLORIDE TAB 1,000 MG TABLET.SOL 1000 MG GT (08:59)
[2024-12-17] MEDS: ATORVASTATIN 20 MG TABLET 40 MG GT (20:53)
[2024-12-18] VITALS (7 sets, daily range): BP systolic 90–115; BP diastolic 57–68; PULSE 70–88; RESP 20–36; TEMP 35.9–36.5; O2SAT 96–98; BMI 32.6
[2024-12-18] MEDS: VALPROIC ACID 250 MG/5 ML 500 MG GT ×3 (05:10→22:04)
[2024-12-18] MEDS: ACETAMINOPHEN 325 MG TABLET 650 MG GT (05:10)
[2024-12-18] MEDS: DEX/HYPRO/GLY ARTIFICAL TEARS 225 DROP/15 ML BTL BOTH EYES ×3 (05:10→22:04)
[2024-12-18] MEDS: CHOLECALCIFEROL (VITAMIN D3) 25 MCG TABLET GT ×2 (09:11→20:11)
[2024-12-18] MEDS: BUSPIRONE 10 MG TABLET GT ×2 (09:11→20:08)
[2024-12-18] MEDS: ASPIRIN 81 MG TAB.CHEW GT (09:11)
[2024-12-18] MEDS: ENOXAPARIN SODIUM 40 MG/0.4 ML SYRINGE SC (09:12)
[2024-12-18] MEDS: SODIUM CHLORIDE TAB 1,000 MG TABLET.SOL 1000 MG GT (09:13)
[2024-12-18] MEDS: ATORVASTATIN 20 MG TABLET 40 MG GT (20:11)
[2024-12-19] VITALS (8 sets, daily range): BP systolic 94–108; BP diastolic 55–56; PULSE 69–89; RESP 20–35; TEMP 36.1–36.4; O2SAT 96–98
--- NOTE | 2024-12-19 01:40 | PC.NURSE ---
Resident completed antibiotic Tx for C diff. No adverse reaction or side effects noted. No loose stool noted thus far this shift.
[2024-12-19] MEDS: VALPROIC ACID 250 MG/5 ML 500 MG GT ×3 (05:36→21:06)
[2024-12-19] MEDS: DEX/HYPRO/GLY ARTIFICAL TEARS 225 DROP/15 ML BTL BOTH EYES ×3 (05:36→21:06)
[2024-12-19] MEDS: ENOXAPARIN SODIUM 40 MG/0.4 ML SYRINGE SC (09:27)
[2024-12-19] MEDS: ASPIRIN 81 MG TAB.CHEW GT (09:43)
[2024-12-19] MEDS: CHOLECALCIFEROL (VITAMIN D3) 25 MCG TABLET GT ×2 (09:43→20:54)
[2024-12-19] MEDS: BUSPIRONE 10 MG TABLET GT ×2 (09:43→20:54)
[2024-12-19] MEDS: SODIUM CHLORIDE TAB 1,000 MG TABLET.SOL 1000 MG GT (09:45)
[2024-12-19] MEDS: ATORVASTATIN 20 MG TABLET 40 MG GT (20:54)
[2024-12-20] VITALS (8 sets, daily range): BP systolic 93–108; BP diastolic 36–64; PULSE 79–92; RESP 25–36; TEMP 35.7–36.6; O2SAT 97–99
[2024-12-20] MEDS: DEX/HYPRO/GLY ARTIFICAL TEARS 225 DROP/15 ML BTL BOTH EYES ×3 (05:13→21:01)
[2024-12-20] MEDS: VALPROIC ACID 250 MG/5 ML 500 MG GT ×3 (05:14→21:01)
[2024-12-20] MEDS: BUSPIRONE 10 MG TABLET GT ×2 (09:17→20:57)
[2024-12-20] MEDS: ASPIRIN 81 MG TAB.CHEW GT (09:18)
[2024-12-20] MEDS: SODIUM CHLORIDE TAB 1,000 MG TABLET.SOL 1000 MG GT (09:19)
[2024-12-20] MEDS: ENOXAPARIN SODIUM 40 MG/0.4 ML SYRINGE SC (09:19)
[2024-12-20] MEDS: CHOLECALCIFEROL (VITAMIN D3) 25 MCG TABLET GT ×2 (09:19→20:58)
--- NOTE | 2024-12-20 13:46 | PC.SS ---
Resident remains on vent with trach in place and GT for medication and nutrition. Resident is unable to make needs known, mill representative will continue to make all medical decisions for resident. Resident will remain in current care as resident is not ready to DC to lower level of care, she will continue to have all subacute care needs met by staff.
[2024-12-20] MEDS: ATORVASTATIN 20 MG TABLET 40 MG GT (20:58)
[2024-12-21] VITALS (8 sets, daily range): BP systolic 97–119; BP diastolic 57–73; PULSE 74–87; RESP 22–34; TEMP 36.2–36.6; O2SAT 97–99
--- NOTE | 2024-12-21 01:51 | PC.NURSE ---
resident completed antibiotics for C diff. No adverse reactions noted. 1 Medium soft BM noted thus far this shift.
[2024-12-21] MEDS: DEX/HYPRO/GLY ARTIFICAL TEARS 225 DROP/15 ML BTL BOTH EYES ×3 (05:27→21:04)
[2024-12-21] MEDS: VALPROIC ACID 250 MG/5 ML 500 MG GT ×3 (05:27→21:04)
[2024-12-21] MEDS: BUSPIRONE 10 MG TABLET GT ×2 (09:20→20:52)
[2024-12-21] MEDS: ASPIRIN 81 MG TAB.CHEW GT (09:21)
[2024-12-21] MEDS: CHOLECALCIFEROL (VITAMIN D3) 25 MCG TABLET GT ×2 (09:21→20:52)
[2024-12-21] MEDS: ENOXAPARIN SODIUM 40 MG/0.4 ML SYRINGE SC (09:23)
[2024-12-21] MEDS: SODIUM CHLORIDE TAB 1,000 MG TABLET.SOL 1000 MG GT (09:23)
[2024-12-21] MEDS: ATORVASTATIN 20 MG TABLET 40 MG GT (20:52)
[2024-12-22] VITALS (8 sets, daily range): BP systolic 92–108; BP diastolic 58–67; PULSE 76–85; RESP 22–33; TEMP 35.2–36.4; O2SAT 90–98
[2024-12-22] MEDS: DEX/HYPRO/GLY ARTIFICAL TEARS 225 DROP/15 ML BTL BOTH EYES ×3 (05:46→21:07)
[2024-12-22] MEDS: VALPROIC ACID 250 MG/5 ML 500 MG GT ×3 (05:46→21:07)
[2024-12-22] MEDS: ASPIRIN 81 MG TAB.CHEW GT (08:39)
[2024-12-22] MEDS: BUSPIRONE 10 MG TABLET GT ×2 (08:39→20:08)
[2024-12-22] MEDS: CHOLECALCIFEROL (VITAMIN D3) 25 MCG TABLET GT ×2 (08:39→20:08)
[2024-12-22] MEDS: SODIUM CHLORIDE TAB 1,000 MG TABLET.SOL 1000 MG GT (08:40)
[2024-12-22] MEDS: ENOXAPARIN SODIUM 40 MG/0.4 ML SYRINGE SC (08:40)
--- NOTE | 2024-12-22 09:24 | PD.SAPROG ---
Progress Note - SubAcute DIAGNOSIS (1) Chronic anoxic encephalopathy: Status: Chronic (2) Chronic respiratory failure: Status: Chronic (3) Ventilator dependent: Status: Chronic (4) Seizures: Status: Chronic (5) Essential hypertension: Status: Chronic (6) PEG (percutaneous endoscopic gastrostomy) status: Status: Chronic (7) Tracheostomy dependence: Status: Chronic (8) Clostridium difficile diarrhea: Status: Acute SUBJECTIVE Fever:: none Shortness of Breath:: none Pain:: none OBJECTIVE Most recent vital signs: Last Vital Signs Temp 97.5 F 12/22/24 06:00 Pulse 80 12/22/24 06:00 Resp 33 H 12/22/24 06:00 BP 105/67 12/22/24 06:00 Pulse Ox 97 12/22/24 06:00 O2 Del Method Mechanical Ventilation 12/21/24 06:00 FiO2 30 12/22/24 00:40 Neurological:: eye tracking (some minimal appropriate response in gesture to simple command) Speech:: nods head Answers questions:: sometimes (gestures) Respiratory:: lungs clear Cardiovascular: RRR Abdomen: soft Extremities:: deformities Tracheostomy:: to ventilator Feeding per:: G tube Complaints:: none ASSESSMENT & PLAN Assessment: 69 yrs of age female being re-admitted to [facility] with Hypertension/hyperlipidemia/epilepsy, recently treated in acute care for UTI sepsis with and on Rocephin one gram daily iv x 4 days. chronic encephalopathy/ chronic respiratory failure/ Ventilator dependent/Trach and feeding G tube as before. VSS , no pain issues. Continued on Vancomycin for C. Diff. tolerating it well. No new issues. Occasional loose stool still .VSS
[2024-12-22] MEDS: ATORVASTATIN 20 MG TABLET 40 MG GT (20:08)
[2024-12-23] VITALS (8 sets, daily range): BP systolic 100–124; BP diastolic 57–70; PULSE 73–86; RESP 24–34; TEMP 36.2–36.6; O2SAT 94–99
[2024-12-23] MEDS: ACETAMINOPHEN 325 MG TABLET 650 MG GT (02:00)
[2024-12-23] MEDS: DEX/HYPRO/GLY ARTIFICAL TEARS 225 DROP/15 ML BTL BOTH EYES ×3 (05:12→21:31)
[2024-12-23] MEDS: VALPROIC ACID 250 MG/5 ML 500 MG GT ×3 (05:36→21:30)
[2024-12-23] MEDS: BUSPIRONE 10 MG TABLET GT ×2 (08:56→21:31)
[2024-12-23] MEDS: ASPIRIN 81 MG TAB.CHEW GT (08:56)
[2024-12-23] MEDS: CHOLECALCIFEROL (VITAMIN D3) 25 MCG TABLET GT ×2 (08:57→21:31)
[2024-12-23] MEDS: ENOXAPARIN SODIUM 40 MG/0.4 ML SYRINGE SC (08:58)
[2024-12-23] MEDS: SODIUM CHLORIDE TAB 1,000 MG TABLET.SOL 1000 MG GT (08:58)
--- NOTE | 2024-12-23 14:42 | PC.NURSE ---
Traci yogurt for re-hanna . Resident had completed the Vanco PGT for C diff. Resident still noted with loose BM, spoke with traci HERNANDEZ to be re-evaled tomorrow during IDT meeting.
[2024-12-23] MEDS: ATORVASTATIN 20 MG TABLET 40 MG GT (21:31)
[2024-12-24] VITALS (7 sets, daily range): BP systolic 99–124; BP diastolic 62–80; PULSE 71–89; RESP 22–35; TEMP 36.2–36.6; O2SAT 96–98
[2024-12-24] MEDS: VALPROIC ACID 250 MG/5 ML 500 MG GT ×3 (05:45→21:08)
[2024-12-24] MEDS: ASPIRIN 81 MG TAB.CHEW GT (09:39)
[2024-12-24] MEDS: BUSPIRONE 10 MG TABLET GT ×2 (09:39→21:09)
[2024-12-24] MEDS: DEX/HYPRO/GLY ARTIFICAL TEARS 225 DROP/15 ML BTL BOTH EYES ×2 (09:39→21:08)
[2024-12-24] MEDS: SODIUM CHLORIDE TAB 1,000 MG TABLET.SOL 1000 MG GT (09:39)
[2024-12-24] MEDS: CHOLECALCIFEROL (VITAMIN D3) 25 MCG TABLET GT ×2 (09:40→21:08)
[2024-12-24] MEDS: ENOXAPARIN SODIUM 40 MG/0.4 ML SYRINGE SC (09:42)
[2024-12-24] MEDS: INSULIN GLARGINE 100 UNIT/ML INSULN.PEN 6 UNIT SC (17:12)
--- NOTE | 2024-12-24 20:47 | ESPR_ITS ---
Progress Note - SubAcute DIAGNOSIS (1) Chronic anoxic encephalopathy: Status: Chronic (2) Chronic respiratory failure: Status: Chronic (3) Ventilator dependent: Status: Chronic (4) Seizures: Status: Chronic (5) Essential hypertension: Status: Chronic (6) PEG (percutaneous endoscopic gastrostomy) status: Status: Chronic (7) Tracheostomy dependence: Status: Chronic (8) Clostridium difficile diarrhea: Status: Acute SUBJECTIVE Fever:: none Shortness of Breath:: none Pain:: none OBJECTIVE Most recent vital signs: Last Vital Signs Temp 97.9 F 12/24/24 12:00 Pulse 84 12/24/24 12:37 Resp 24 H 12/24/24 12:37 BP 99/62 12/24/24 12:00 Pulse Ox 97 12/24/24 12:37 O2 Del Method Mechanical Ventilation 12/23/24 17:08 FiO2 30 12/24/24 12:37 Neurological:: eye tracking (some minimal appropriate response in gesture to simple command) Speech:: nods head Answers questions:: sometimes (gestures) Respiratory:: lungs clear Cardiovascular: RRR Abdomen: soft Extremities:: deformities Tracheostomy:: to ventilator Feeding per:: G tube Complaints:: none ASSESSMENT & PLAN Assessment: 69 yrs of age female being re-admitted to [facility] with Hypertension/hyperlipidemia/epilepsy, recently treated in acute care for UTI sepsis with and on Rocephin one gram daily iv x 4 days. chronic encephalopathy/ chronic respiratory failure/ Ventilator dependent/Trach and feeding G tube as before. VSS , no pain issues. Continued on Vancomycin for C. Diff. tolerating it well. No new issues. Occasional loose stool still .VSS
[2024-12-24] MEDS: ATORVASTATIN 20 MG TABLET 40 MG GT (21:09)
[2024-12-25] VITALS (8 sets, daily range): BP systolic 118–159; BP diastolic 57–74; PULSE 68–87; RESP 19–35; TEMP 35.8–36.5; O2SAT 94–97
[2024-12-25] MEDS: ACETAMINOPHEN 325 MG TABLET 650 MG GT ×2 (02:34→20:31)
[2024-12-25] MEDS: VALPROIC ACID 250 MG/5 ML 500 MG GT ×3 (05:37→22:00)
[2024-12-25 07:31] LABS: Basophils # (Auto) 0.1 Thou/mm3 (0.0-0.2); Basophils % (Auto) 1 % (0-2.5); Eosinophils # (Auto) 0.5 Thou/mm3 (0.0-0.5); Eosinophils % (Auto) 4 % (0-10); Hematocrit 25.0 % (36.0-46.0); Immature Granulocytes Auto 0.41 Thou/mm3 (0.00-0.00); Lymphocytes # (Auto) 3.5 Thou/mm3 (1.0-4.8); Lymphocytes % (Auto) 26 % (10-50); Mean Corpuscular HGB Conc 32.8 g/dl (31.0-37.0); Mean Corpuscular Hemoglobin 31.4 pg (25.0-35.0); Mean Corpuscular Volume 96 fL (80-100); Monocytes # (Auto) 1.8 Thou/mm3 (0.0-0.8); Monocytes % (Auto) 13 % (0-12); Neutrophils # (Auto) 7.3 Thou/mm3 (1.8-7.7); Neutrophils % (Auto) 54 % (37-80); Nucleated Red Blood Cell # 0.02 Thou/mm3 (0.00-0.00); Nucleated Red Blood Cell % 0 /100 WBC (0); Platelet Count 336 Thou/mm3 (140-440); RDW Standard Deviation 62.2 fL (36.4-46.3); Red Blood Count 2.61 Miln/mm3 (4.00-5.20); White Blood Count 13.6 Thou/mm3 (3.6-11.0)
[2024-12-25 08:03] LABS: Alanine Aminotransferase < 7 U/L (10-49); Albumin, Serum 3.5 gm/dL (3.4-4.8); Albumin/Globulin Ratio 1.3 (1.2-2.2); Alkaline Phosphatase 59 U/L (46-116); Anion Gap 7 (7-16); Aspartate Amino Transferase 10 U/L (0-34); BUN/Creatinine Ratio 17 Ratio (12-20); Bilirubin,Total 0.2 mg/dL (0.3-1.2); Blood Urea Nitrogen 10 mg/dL (9-23); Calcium 9.0 mg/dL (8.3-10.6); Calcium (Corrected) 9.4 mg/dL (8.5-10.1); Carbon Dioxide 32.6 mMol/L (20.0-31.0); Chloride 91 mMol/L (98-107); Creatinine (Component) 0.6 mg/dL (0.6-1.3); Estimated Creatinine Clearance 87.5 mL/min (>60); Globulin 2.6 gm/dL (2.3-3.5); Glucose 170 mg/dL (74-106); Glucose,Fasting 170 mg/dL (74-106); Osmolality,Calculated 265 (275-295); Potassium 4.0 mMol/L (3.4-5.1); Sodium 131 mMol/L (136-145); Total Protein 6.1 gm/dL (5.7-8.2); eGFR > 60 See Note
[2024-12-25 08:35] LABS: Hemoglobin 8.2 g/dL (12.0-16.0)
[2024-12-25] MEDS: ASPIRIN 81 MG TAB.CHEW GT (09:11)
[2024-12-25] MEDS: BUSPIRONE 10 MG TABLET GT ×2 (09:13→20:27)
[2024-12-25] MEDS: CHOLECALCIFEROL (VITAMIN D3) 25 MCG TABLET GT ×2 (09:13→20:28)
[2024-12-25] MEDS: DEX/HYPRO/GLY ARTIFICAL TEARS 225 DROP/15 ML BTL BOTH EYES ×2 (09:13→20:28)
[2024-12-25] MEDS: SODIUM CHLORIDE TAB 1,000 MG TABLET.SOL 1000 MG GT (09:14)
--- NOTE | 2024-12-25 14:25 | PC.NURSE ---
Called Dr Silverio and verbally reported resident's CMP result, with sodium level of 131. Currently on 600 ml minimum water flush every shift , on sodium chloride 1 gm daily. Noted with 2+ swelling to feet. Order received to give NS and water 1:1 ratio each shift instead of plain water and to do Renal panel in one week.
[2024-12-25] MEDS: INSULIN GLARGINE 100 UNIT/ML INSULN.PEN 6 UNIT SC (17:25)
--- NOTE | 2024-12-25 19:45 | PC.NURSE ---
Resident with an order for Kefir yogurt . Resident noted with soft BM lately but still with episodes of loose BM. Spke with RD today and said to be discussed with Dr Silverio. Called Dr Silverio and made aware of it, order to discontinue the Kefir and to evaluate in one week after stopping the yogurt.
[2024-12-25] MEDS: ATORVASTATIN 20 MG TABLET 40 MG GT (20:28)
[2024-12-26] VITALS (8 sets, daily range): BP systolic 96–128; BP diastolic 60–75; PULSE 72–85; RESP 20–34; TEMP 36.4–36.7; O2SAT 96–99
[2024-12-26] MEDS: ACETAMINOPHEN 325 MG TABLET 650 MG GT ×2 (04:12→12:19)
[2024-12-26] MEDS: VALPROIC ACID 250 MG/5 ML 500 MG GT ×3 (05:03→21:30)
[2024-12-26] MEDS: ENOXAPARIN SODIUM 40 MG/0.4 ML SYRINGE SC (09:14)
[2024-12-26] MEDS: ASPIRIN 81 MG TAB.CHEW GT (09:15)
[2024-12-26] MEDS: DEX/HYPRO/GLY ARTIFICAL TEARS 225 DROP/15 ML BTL BOTH EYES ×2 (09:16→21:30)
[2024-12-26] MEDS: CHOLECALCIFEROL (VITAMIN D3) 25 MCG TABLET GT ×2 (09:16→21:30)
[2024-12-26] MEDS: BUSPIRONE 10 MG TABLET GT ×2 (09:16→21:31)
[2024-12-26] MEDS: SODIUM CHLORIDE TAB 1,000 MG TABLET.SOL 1000 MG GT (09:17)
[2024-12-26] MEDS: guaiFENesin Liq 100 MG/5 ML LIQUID 300 MG GT (12:20)
[2024-12-26] MEDS: INSULIN GLARGINE 100 UNIT/ML INSULN.PEN 6 UNIT SC (17:34)
[2024-12-26] MEDS: ATORVASTATIN 20 MG TABLET 40 MG GT (21:31)
[2024-12-27] VITALS (8 sets, daily range): BP systolic 101–117; BP diastolic 67–74; PULSE 70–89; RESP 26–38; TEMP 36.1–36.8; O2SAT 93–99
[2024-12-27] MEDS: guaiFENesin Liq 100 MG/5 ML LIQUID 300 MG GT ×2 (00:35→13:04)
[2024-12-27] MEDS: ACETAMINOPHEN 325 MG TABLET 650 MG GT ×2 (00:35→13:04)
[2024-12-27] MEDS: VALPROIC ACID 250 MG/5 ML 500 MG GT ×3 (05:35→22:26)
[2024-12-27] MEDS: ENOXAPARIN SODIUM 40 MG/0.4 ML SYRINGE SC (08:37)
[2024-12-27] MEDS: ASPIRIN 81 MG TAB.CHEW GT (08:42)
[2024-12-27] MEDS: DEX/HYPRO/GLY ARTIFICAL TEARS 225 DROP/15 ML BTL BOTH EYES ×2 (08:43→20:35)
[2024-12-27] MEDS: CHOLECALCIFEROL (VITAMIN D3) 25 MCG TABLET GT ×2 (08:43→20:35)
[2024-12-27] MEDS: SODIUM CHLORIDE TAB 1,000 MG TABLET.SOL 1000 MG GT (08:43)
[2024-12-27] MEDS: BUSPIRONE 10 MG TABLET GT ×2 (08:43→20:34)
--- NOTE | 2024-12-27 15:50 | PC.RT ---
Resident remains on vent with trach in place and GT for medication and nutrition. Resident is unable to make needs known, treasury representative will continue to make all medical decisions for resident. Resident will remain in current care as resident is not ready to DC to lower level of care, she will continue to have all subacute care needs met by staff.
[2024-12-27] MEDS: INSULIN GLARGINE 100 UNIT/ML INSULN.PEN 6 UNIT SC (17:25)
[2024-12-27] MEDS: ATORVASTATIN 20 MG TABLET 40 MG GT (20:34)
[2024-12-28] VITALS (8 sets, daily range): BP systolic 108–130; BP diastolic 58–78; PULSE 70–90; RESP 24–33; TEMP 36.3–36.6; O2SAT 92–99
[2024-12-28] MEDS: VALPROIC ACID 250 MG/5 ML 500 MG GT ×3 (05:07→21:53)
[2024-12-28] MEDS: ASPIRIN 81 MG TAB.CHEW GT (08:14)
[2024-12-28] MEDS: ENOXAPARIN SODIUM 40 MG/0.4 ML SYRINGE SC (08:14)
[2024-12-28] MEDS: BUSPIRONE 10 MG TABLET GT ×2 (08:16→20:21)
[2024-12-28] MEDS: DEX/HYPRO/GLY ARTIFICAL TEARS 225 DROP/15 ML BTL BOTH EYES ×2 (08:17→20:26)
[2024-12-28] MEDS: CHOLECALCIFEROL (VITAMIN D3) 25 MCG TABLET GT ×2 (08:17→20:26)
[2024-12-28] MEDS: SODIUM CHLORIDE TAB 1,000 MG TABLET.SOL 1000 MG GT (08:18)
[2024-12-28] MEDS: ACETAMINOPHEN 325 MG TABLET 650 MG GT ×2 (08:19→20:29)
[2024-12-28] MEDS: INSULIN GLARGINE 100 UNIT/ML INSULN.PEN 6 UNIT SC (17:34)
[2024-12-28] MEDS: ATORVASTATIN 20 MG TABLET 40 MG GT (20:21)
--- NOTE | 2024-12-28 23:07 | PD.SAPROG ---
Progress Note - SubAcute DIAGNOSIS (1) Chronic anoxic encephalopathy: Status: Chronic (2) Chronic respiratory failure: Status: Chronic (3) Ventilator dependent: Status: Chronic (4) Seizures: Status: Chronic (5) Essential hypertension: Status: Chronic (6) PEG (percutaneous endoscopic gastrostomy) status: Status: Chronic (7) Tracheostomy dependence: Status: Chronic (8) Clostridium difficile diarrhea: Status: Acute SUBJECTIVE Fever:: none Shortness of Breath:: none Pain:: none OBJECTIVE Most recent vital signs: Last Vital Signs Temp 97.4 F 12/28/24 16:48 Pulse 76 12/28/24 19:04 Resp 30 H 12/28/24 19:04 BP 110/67 12/28/24 16:48 Pulse Ox 99 12/28/24 19:04 O2 Del Method Mechanical Ventilation 12/28/24 16:48 FiO2 30 12/28/24 19:04 Neurological:: eye tracking (some minimal appropriate response in gesture to simple command) Speech:: nods head Answers questions:: sometimes (gestures) Respiratory:: lungs clear Cardiovascular: RRR Abdomen: soft Extremities:: deformities Tracheostomy:: to ventilator Feeding per:: G tube Complaints:: none ASSESSMENT & PLAN Assessment: 69 yrs of age female being re-admitted to [facility] with Hypertension/hyperlipidemia/epilepsy, recently treated in acute care for UTI sepsis with and on Rocephin one gram daily iv x 4 days. chronic encephalopathy/ chronic respiratory failure/ Ventilator dependent/Trach and feeding G tube as before. VSS , no pain issues. Continued on Vancomycin for C. Diff. tolerating it well. No new issues. Occasional loose stool still .VSS. No pain
[2024-12-29] VITALS (8 sets, daily range): BP systolic 98–153; BP diastolic 62–76; PULSE 76–95; RESP 24–33; TEMP 36.3–36.4; O2SAT 96–99
[2024-12-29] MEDS: VALPROIC ACID 250 MG/5 ML 500 MG GT ×3 (05:43→21:21)
[2024-12-29] MEDS: BUSPIRONE 10 MG TABLET GT ×2 (09:20→20:04)
[2024-12-29] MEDS: CHOLECALCIFEROL (VITAMIN D3) 25 MCG TABLET GT ×2 (09:21→20:06)
[2024-12-29] MEDS: DEX/HYPRO/GLY ARTIFICAL TEARS 225 DROP/15 ML BTL BOTH EYES ×2 (09:21→20:09)
[2024-12-29] MEDS: ASPIRIN 81 MG TAB.CHEW GT (09:23)
[2024-12-29] MEDS: SODIUM CHLORIDE TAB 1,000 MG TABLET.SOL 1000 MG GT (09:23)
[2024-12-29] MEDS: ENOXAPARIN SODIUM 40 MG/0.4 ML SYRINGE SC (09:54)
[2024-12-29] MEDS: INSULIN GLARGINE 100 UNIT/ML INSULN.PEN 6 UNIT SC (17:20)
[2024-12-29] MEDS: ATORVASTATIN 20 MG TABLET 40 MG GT (20:04)
[2024-12-30] VITALS (8 sets, daily range): BP systolic 95–120; BP diastolic 53–79; PULSE 74–87; RESP 24–31; TEMP 36.1–36.4; O2SAT 95–99
[2024-12-30] MEDS: VALPROIC ACID 250 MG/5 ML 500 MG GT ×3 (05:25→21:00)
[2024-12-30] MEDS: ASPIRIN 81 MG TAB.CHEW GT (09:02)
[2024-12-30] MEDS: SODIUM CHLORIDE TAB 1,000 MG TABLET.SOL 1000 MG GT (09:04)
[2024-12-30] MEDS: DEX/HYPRO/GLY ARTIFICAL TEARS 225 DROP/15 ML BTL BOTH EYES ×2 (09:04→20:05)
[2024-12-30] MEDS: CHOLECALCIFEROL (VITAMIN D3) 25 MCG TABLET GT ×2 (09:04→20:04)
[2024-12-30] MEDS: BUSPIRONE 10 MG TABLET GT ×2 (09:04→20:04)
[2024-12-30] MEDS: ENOXAPARIN SODIUM 40 MG/0.4 ML SYRINGE SC (09:06)
[2024-12-30] MEDS: ACETAMINOPHEN 325 MG TABLET 650 MG GT (14:47)
[2024-12-30] MEDS: guaiFENesin Liq 100 MG/5 ML LIQUID 300 MG GT (14:47)
[2024-12-30] MEDS: INSULIN GLARGINE 100 UNIT/ML INSULN.PEN 6 UNIT SC (17:30)
[2024-12-30] MEDS: ATORVASTATIN 20 MG TABLET 40 MG GT (20:03)
[2024-12-31] VITALS: BP 122/73; PULSE 84; RESP 29; TEMP 36.1
[2024-12-31 01:15] VITALS: PULSE 79; RESP 32; O2SAT 96
[2024-12-31] MEDS: VALPROIC ACID 250 MG/5 ML 500 MG GT ×3 (05:27→21:00)
[2024-12-31 06:00] VITALS: BP 134/73; PULSE 90; RESP 30; TEMP 36.6; O2SAT 98
[2024-12-31 06:45] VITALS: PULSE 77; RESP 30; O2SAT 97
[2024-12-31] MEDS: ENOXAPARIN SODIUM 40 MG/0.4 ML SYRINGE SC (09:56)
[2024-12-31] MEDS: BUSPIRONE 10 MG TABLET GT ×2 (09:57→20:50)
[2024-12-31] MEDS: ASPIRIN 81 MG TAB.CHEW GT (09:57)
[2024-12-31] MEDS: SODIUM CHLORIDE TAB 1,000 MG TABLET.SOL 1000 MG GT (09:58)
[2024-12-31] MEDS: DEX/HYPRO/GLY ARTIFICAL TEARS 225 DROP/15 ML BTL BOTH EYES ×2 (09:58→20:51)
[2024-12-31] MEDS: CHOLECALCIFEROL (VITAMIN D3) 25 MCG TABLET GT ×2 (09:58→20:50)
[2024-12-31 12:17] VITALS: PULSE 81; RESP 28; O2SAT 97
[2024-12-31] MEDS: INSULIN GLARGINE 100 UNIT/ML INSULN.PEN 6 UNIT SC (17:30)
[2024-12-31 19:45] VITALS: PULSE 87; RESP 26; RESP 33; O2SAT 98; O2SAT 99
[2024-12-31] MEDS: ATORVASTATIN 20 MG TABLET 40 MG GT (20:50)
[2025-01-01] VITALS (8 sets, daily range): BP systolic 90–136; BP diastolic 51–81; PULSE 79–96; RESP 18–34; TEMP 36.4–36.6; O2SAT 95–98
[2025-01-01] MEDS: VALPROIC ACID 250 MG/5 ML 500 MG GT ×3 (05:33→21:31)
[2025-01-01 07:20] LABS: Basophils # (Auto) 0.1 Thou/mm3 (0.0-0.2); Basophils % (Auto) 1 % (0-2.5); Eosinophils # (Auto) 0.8 Thou/mm3 (0.0-0.5); Eosinophils % (Auto) 6 % (0-10); Hematocrit 24.1 % (36.0-46.0); Immature Granulocytes Auto 0.29 Thou/mm3 (0.00-0.00); Lymphocytes # (Auto) 3.0 Thou/mm3 (1.0-4.8); Lymphocytes % (Auto) 21 % (10-50); Mean Corpuscular HGB Conc 32.8 g/dl (31.0-37.0); Mean Corpuscular Hemoglobin 31.6 pg (25.0-35.0); Mean Corpuscular Volume 96 fL (80-100); Monocytes # (Auto) 1.9 Thou/mm3 (0.0-0.8); Monocytes % (Auto) 13 % (0-12); Neutrophils # (Auto) 8.1 Thou/mm3 (1.8-7.7); Neutrophils % (Auto) 57 % (37-80); Nucleated Red Blood Cell # 0.00 Thou/mm3 (0.00-0.00); Nucleated Red Blood Cell % 0 /100 WBC (0); Platelet Count 337 Thou/mm3 (140-440); RDW Standard Deviation 61.7 fL (36.4-46.3); Red Blood Count 2.50 Miln/mm3 (4.00-5.20); White Blood Count 14.1 Thou/mm3 (3.6-11.0)
[2025-01-01 07:25] LABS: Hemoglobin 7.9 g/dL (12.0-16.0)
[2025-01-01 07:37] LABS: Albumin, Serum 3.7 gm/dL (3.4-4.8); Anion Gap 9 (7-16); BUN/Creatinine Ratio 18 Ratio (12-20); Blood Urea Nitrogen 11 mg/dL (9-23); Calcium 9.1 mg/dL (8.3-10.6); Calcium (Corrected) 9.3 mg/dL (8.5-10.1); Carbon Dioxide 33.1 mMol/L (20.0-31.0); Chloride 96 mMol/L (98-107); Creatinine (Component) 0.6 mg/dL (0.6-1.3); Estimated Creatinine Clearance 87.5 mL/min (>60); Glucose 162 mg/dL (74-106); Osmolality,Calculated 279 (275-295); Phosphorous 3.7 mg/dL (2.4-5.1); Potassium 4.2 mMol/L (3.4-5.1); Sodium 138 mMol/L (136-145); eGFR > 60 See Note
[2025-01-01] MEDS: ENOXAPARIN SODIUM 40 MG/0.4 ML SYRINGE SC (09:07)
[2025-01-01] MEDS: ASPIRIN 81 MG TAB.CHEW GT (09:10)
[2025-01-01] MEDS: BUSPIRONE 10 MG TABLET GT ×2 (09:10→20:08)
[2025-01-01] MEDS: CHOLECALCIFEROL (VITAMIN D3) 25 MCG TABLET GT ×2 (09:10→20:08)
[2025-01-01] MEDS: SODIUM CHLORIDE TAB 1,000 MG TABLET.SOL 1000 MG GT (09:11)
[2025-01-01] MEDS: DEX/HYPRO/GLY ARTIFICAL TEARS 225 DROP/15 ML BTL BOTH EYES ×2 (09:11→20:09)
--- NOTE | 2025-01-01 13:40 | PC.NURSE ---
Addendum entered and electronically signed by Zainab Jordan RN 01/01/25 14:01: Discussed with Dr Silverio about the Kefir yogurt after stopping it for one week. Resident's noted to have loose BM and usually once a day and sometimes with medium soft BM. No further order received from MD regarding the Kefir yogurt. Original Note: CBC and Renal panel drawn today. Verbally reported to Dr Silverio about the results. Resident's WBC 14.1, afebrile and stable, Hgb 7.9, not on any supplement, no s/s of bleeding noted. On routine labs every 1st of the month. No new orders received from DR Silverio.
--- NOTE | 2025-01-01 15:52 | PC.NURSE ---
Ms. Ennis receives Buspirone every 12 hrs., her condition indicates a therapeutic response. Non-pharmacological intervention have been unsuccessful. No adverse reaction or side effects noted.
[2025-01-01] MEDS: INSULIN GLARGINE 100 UNIT/ML INSULN.PEN 6 UNIT SC (17:19)
[2025-01-01] MEDS: ATORVASTATIN 20 MG TABLET 40 MG GT (20:07)
[2025-01-02] VITALS (8 sets, daily range): BP systolic 102–117; BP diastolic 65–71; PULSE 69–93; RESP 26–33; TEMP 36.2–37.2; O2SAT 97–98
[2025-01-02] MEDS: VALPROIC ACID 250 MG/5 ML 500 MG GT ×3 (05:36→21:03)
[2025-01-02] MEDS: ENOXAPARIN SODIUM 40 MG/0.4 ML SYRINGE SC (08:26)
[2025-01-02] MEDS: BUSPIRONE 10 MG TABLET GT ×2 (08:42→21:02)
[2025-01-02] MEDS: CHOLECALCIFEROL (VITAMIN D3) 25 MCG TABLET GT ×2 (08:42→21:03)
[2025-01-02] MEDS: ASPIRIN 81 MG TAB.CHEW GT (08:42)
[2025-01-02] MEDS: DEX/HYPRO/GLY ARTIFICAL TEARS 225 DROP/15 ML BTL BOTH EYES ×2 (08:43→21:03)
[2025-01-02] MEDS: SODIUM CHLORIDE TAB 1,000 MG TABLET.SOL 1000 MG GT (08:43)
--- NOTE | 2025-01-02 13:36 | ESPR_ITS ---
Progress Note - SubAcute DIAGNOSIS (1) Chronic anoxic encephalopathy: Status: Chronic (2) Chronic respiratory failure: Status: Chronic (3) Ventilator dependent: Status: Chronic (4) Seizures: Status: Chronic (5) Essential hypertension: Status: Chronic (6) PEG (percutaneous endoscopic gastrostomy) status: Status: Chronic (7) Tracheostomy dependence: Status: Chronic (8) Clostridium difficile diarrhea: Status: Acute SUBJECTIVE Fever:: none Shortness of Breath:: none Pain:: none OBJECTIVE Most recent vital signs: Last Vital Signs Temp 97.2 F 01/02/25 06:00 Pulse 79 01/02/25 12:17 Resp 33 H 01/02/25 07:12 BP 102/68 01/02/25 06:00 Pulse Ox 98 01/02/25 12:17 O2 Del Method Mechanical Ventilation 12/30/24 12:00 FiO2 30 01/02/25 12:17 Neurological:: eye tracking (some minimal appropriate response in gesture to simple command) Speech:: nods head Answers questions:: sometimes (gestures) Respiratory:: lungs clear Cardiovascular: RRR Abdomen: soft Extremities:: deformities Tracheostomy:: to ventilator Feeding per:: G tube Complaints:: none ASSESSMENT & PLAN Assessment: 69 yrs of age female being re-admitted to [facility] with Hypertension/hyperlipidemia/epilepsy, recently treated in acute care for UTI sepsis with and on Rocephin one gram daily iv x 4 days. chronic encephalopathy/ chronic respiratory failure/ Ventilator dependent/Trach and feeding G tube as before. VSS , no pain issues. Continued on Vancomycin for C. Diff. tolerating it well. Completed 4 weeks of vancomycin. No new issues. Occasional loose stool still .VSS. No pain.
--- NOTE | 2025-01-02 13:41 | ESPR_ITS ---
Progress Note - SubAcute DIAGNOSIS (1) Chronic anoxic encephalopathy: Status: Chronic (2) Chronic respiratory failure: Status: Chronic (3) Ventilator dependent: Status: Chronic (4) Seizures: Status: Chronic (5) Essential hypertension: Status: Chronic (6) PEG (percutaneous endoscopic gastrostomy) status: Status: Chronic (7) Tracheostomy dependence: Status: Chronic (8) Clostridium difficile diarrhea: Status: Acute SUBJECTIVE Fever:: none Shortness of Breath:: none Pain:: none OBJECTIVE Most recent vital signs: Last Vital Signs Temp 97.2 F 01/02/25 06:00 Pulse 79 01/02/25 12:17 Resp 33 H 01/02/25 07:12 BP 102/68 01/02/25 06:00 Pulse Ox 98 01/02/25 12:17 O2 Del Method Mechanical Ventilation 12/30/24 12:00 FiO2 30 01/02/25 12:17 Neurological:: eye tracking (some minimal appropriate response in gesture to simple command) Speech:: nods head Answers questions:: sometimes (gestures) Respiratory:: lungs clear Cardiovascular: RRR Abdomen: soft Extremities:: deformities Tracheostomy:: to ventilator Feeding per:: G tube Complaints:: none ASSESSMENT & PLAN Assessment: 69 yrs of age female being re-admitted to [facility] with Hypertension/hyperlipidemia/epilepsy, recently treated in acute care for UTI sepsis with and on Rocephin one gram daily iv x 4 days. chronic encephalopathy/ chronic respiratory failure/ Ventilator dependent/Trach and feeding G tube as before. VSS , no pain issues. Continued on Vancomycin for C. Diff. tolerating it well. Completed 4 weeks of vancomycin. No new issues. Occasional loose stool still .VSS. No pain.
[2025-01-02] MEDS: INSULIN GLARGINE 100 UNIT/ML INSULN.PEN 6 UNIT SC (17:35)
[2025-01-02] MEDS: ATORVASTATIN 20 MG TABLET 40 MG GT (21:02)
[2025-01-03] VITALS (8 sets, daily range): BP systolic 110–146; BP diastolic 62–75; PULSE 77–90; RESP 19–33; TEMP 36.1–36.9; O2SAT 97–99
[2025-01-03] MEDS: VALPROIC ACID 250 MG/5 ML 500 MG GT ×3 (05:35→21:35)
[2025-01-03] MEDS: BUSPIRONE 10 MG TABLET GT ×2 (09:06→20:44)
[2025-01-03] MEDS: ASPIRIN 81 MG TAB.CHEW GT (09:07)
[2025-01-03] MEDS: CHOLECALCIFEROL (VITAMIN D3) 25 MCG TABLET GT ×2 (09:07→20:46)
[2025-01-03] MEDS: DEX/HYPRO/GLY ARTIFICAL TEARS 225 DROP/15 ML BTL BOTH EYES ×2 (09:07→20:46)
[2025-01-03] MEDS: ENOXAPARIN SODIUM 40 MG/0.4 ML SYRINGE SC (09:08)
[2025-01-03] MEDS: SODIUM CHLORIDE TAB 1,000 MG TABLET.SOL 1000 MG GT (09:09)
[2025-01-03] MEDS: INSULIN GLARGINE 100 UNIT/ML INSULN.PEN 6 UNIT SC (17:56)
[2025-01-03] MEDS: ATORVASTATIN 20 MG TABLET 40 MG GT (20:45)
[2025-01-04] VITALS (8 sets, daily range): BP systolic 104–135; BP diastolic 62–69; PULSE 72–88; RESP 22–35; TEMP 36.5–36.7; O2SAT 97–99
[2025-01-04] MEDS: ACETAMINOPHEN 325 MG TABLET 650 MG GT (04:01)
[2025-01-04] MEDS: VALPROIC ACID 250 MG/5 ML 500 MG GT ×3 (05:40→21:02)
[2025-01-04] MEDS: ENOXAPARIN SODIUM 40 MG/0.4 ML SYRINGE SC (09:54)
[2025-01-04] MEDS: BUSPIRONE 10 MG TABLET GT ×2 (09:57→20:39)
[2025-01-04] MEDS: ASPIRIN 81 MG TAB.CHEW GT (09:58)
[2025-01-04] MEDS: DEX/HYPRO/GLY ARTIFICAL TEARS 225 DROP/15 ML BTL BOTH EYES ×2 (09:58→20:40)
[2025-01-04] MEDS: CHOLECALCIFEROL (VITAMIN D3) 25 MCG TABLET GT ×2 (09:58→21:02)
[2025-01-04] MEDS: SODIUM CHLORIDE TAB 1,000 MG TABLET.SOL 1000 MG GT (09:58)
[2025-01-04] MEDS: INSULIN GLARGINE 100 UNIT/ML INSULN.PEN 6 UNIT SC (17:23)
[2025-01-04] MEDS: ATORVASTATIN 20 MG TABLET 40 MG GT (20:39)
[2025-01-05] VITALS (8 sets, daily range): BP systolic 98–108; BP diastolic 61–79; PULSE 75–97; RESP 18–35; TEMP 36.3–36.6; O2SAT 98–99
[2025-01-05] MEDS: VALPROIC ACID 250 MG/5 ML 500 MG GT ×3 (05:09→21:14)
[2025-01-05] MEDS: ENOXAPARIN SODIUM 40 MG/0.4 ML SYRINGE SC (09:18)
[2025-01-05] MEDS: BUSPIRONE 10 MG TABLET GT ×2 (09:20→20:17)
[2025-01-05] MEDS: ASPIRIN 81 MG TAB.CHEW GT (09:21)
[2025-01-05] MEDS: SODIUM CHLORIDE TAB 1,000 MG TABLET.SOL 1000 MG GT (09:21)
[2025-01-05] MEDS: CHOLECALCIFEROL (VITAMIN D3) 25 MCG TABLET GT ×2 (09:21→20:17)
[2025-01-05] MEDS: DEX/HYPRO/GLY ARTIFICAL TEARS 225 DROP/15 ML BTL BOTH EYES ×2 (09:21→20:18)
--- NOTE | 2025-01-05 10:29 | PD.SAPROG ---
Progress Note - SubAcute DIAGNOSIS (1) Chronic anoxic encephalopathy: Status: Chronic (2) Chronic respiratory failure: Status: Chronic (3) Ventilator dependent: Status: Chronic (4) Seizures: Status: Chronic (5) Essential hypertension: Status: Chronic (6) PEG (percutaneous endoscopic gastrostomy) status: Status: Chronic (7) Tracheostomy dependence: Status: Chronic (8) Clostridium difficile diarrhea: Status: Acute SUBJECTIVE Fever:: none Shortness of Breath:: none Pain:: none OBJECTIVE Most recent vital signs: Last Vital Signs Temp 97.6 F 01/05/25 06:00 Pulse 82 01/05/25 06:33 Resp 31 H 01/05/25 06:33 BP 105/71 01/05/25 06:00 Pulse Ox 98 01/05/25 06:33 O2 Del Method Mechanical Ventilation 01/04/25 18:00 FiO2 30 01/05/25 06:33 Neurological:: eye tracking (some minimal appropriate response in gesture to simple command) Speech:: nods head Answers questions:: sometimes (gestures) Respiratory:: lungs clear Cardiovascular: RRR Abdomen: soft Extremities:: deformities Tracheostomy:: to ventilator Feeding per:: G tube Complaints:: none ASSESSMENT & PLAN Assessment: 69 yrs of age female being re-admitted to [facility] with Hypertension/hyperlipidemia/epilepsy, recently treated in acute care for UTI sepsis with and on Rocephin one gram daily iv x 4 days. chronic encephalopathy/ chronic respiratory failure/ Ventilator dependent/Trach and feeding G tube as before. VSS , no pain issues. Continued on Vancomycin for C. Diff. tolerating it well. Completed 4 weeks of vancomycin. No new issues. Occasional loose stool still .VSS. No pain.
[2025-01-05] MEDS: INSULIN GLARGINE 100 UNIT/ML INSULN.PEN 6 UNIT SC (17:58)
[2025-01-05] MEDS: ATORVASTATIN 20 MG TABLET 40 MG GT (20:17)
[2025-01-06] VITALS (8 sets, daily range): BP systolic 90–119; BP diastolic 60–73; PULSE 72–84; RESP 18–35; TEMP 36.1–36.3; O2SAT 93–99
[2025-01-06] MEDS: VALPROIC ACID 250 MG/5 ML 500 MG GT ×3 (05:39→21:15)
--- NOTE | 2025-01-06 07:12 | PC.NURSE ---
Notified Dr Silverio of blood tinge in stool and red colored stool, new order for CBC today to check Hgb
[2025-01-06] MEDS: CHOLECALCIFEROL (VITAMIN D3) 25 MCG TABLET GT ×2 (09:40→20:06)
[2025-01-06] MEDS: BUSPIRONE 10 MG TABLET GT ×2 (09:40→20:06)
[2025-01-06] MEDS: DEX/HYPRO/GLY ARTIFICAL TEARS 225 DROP/15 ML BTL BOTH EYES ×2 (09:40→20:07)
[2025-01-06] MEDS: SODIUM CHLORIDE TAB 1,000 MG TABLET.SOL 1000 MG GT (09:42)
[2025-01-06 10:37] LABS: Basophils # (Auto) 0.1 Thou/mm3 (0.0-0.2); Basophils % (Auto) 1 % (0-2.5); Eosinophils # (Auto) 0.6 Thou/mm3 (0.0-0.5); Eosinophils % (Auto) 5 % (0-10); Hematocrit 23.3 % (36.0-46.0); Immature Granulocytes Auto 0.31 Thou/mm3 (0.00-0.00); Lymphocytes # (Auto) 3.0 Thou/mm3 (1.0-4.8); Lymphocytes % (Auto) 24 % (10-50); Mean Corpuscular HGB Conc 33.0 g/dl (31.0-37.0); Mean Corpuscular Hemoglobin 31.8 pg (25.0-35.0); Mean Corpuscular Volume 96 fL (80-100); Monocytes # (Auto) 1.7 Thou/mm3 (0.0-0.8); Monocytes % (Auto) 14 % (0-12); Neutrophils # (Auto) 6.8 Thou/mm3 (1.8-7.7); Neutrophils % (Auto) 54 % (37-80); Nucleated Red Blood Cell # 0.03 Thou/mm3 (0.00-0.00); Nucleated Red Blood Cell % 0 /100 WBC (0); Platelet Count 347 Thou/mm3 (140-440); RDW Standard Deviation 61.2 fL (36.4-46.3); Red Blood Count 2.42 Miln/mm3 (4.00-5.20); White Blood Count 12.5 Thou/mm3 (3.6-11.0)
--- NOTE | 2025-01-06 10:40 | PC.NURSE ---
Addendum entered and electronically signed by Zainab Jordan RN 01/06/25 13:43: Resident had a BM today brick colored stool. Spoke with Dr silverio today and made him aware of it. Verbally reported resident's CBC result, with Hgb of 7.7. Made him aware that resident on ASA and Lovenox as prophylaxis and not given yet until it will be discussed with MD. Order received to do stool occult blood and refer resident with Dr Morris. As per Dr Silverio it's okay to give the ASA and to hold the Lovenox starting today until evaluated by Dr Morris. Order received to do follow up CBC in one week to monitor Hgb level. Resident remains stable at this time. Original Note: Resident was noted with blood tinged and and red colored stool at [facility], currently on Lovenox and ASA. Tried to call Dr Silverio to notify but unable to get hold of him. Left message to call us back. CBC results pending at this time.
[2025-01-06 10:47] LABS: Hemoglobin 7.7 g/dL (12.0-16.0)
[2025-01-06] MEDS: ASPIRIN 81 MG TAB.CHEW GT (13:46)
--- NOTE | 2025-01-06 17:23 | PC.NURSE ---
Addendum entered and electronically signed by Zainab Jordan RN 01/06/25 17:34: Spoke with resident's sister and gave her update about the resident and the new orders. Original Note: No stool noted after Dr Silverio had ordered for stool occult blood. Spoke with Dr Morris and made him aware of the consult, made him aware Lovenox is on hold and to be evaluated when he comes and see her as per Dr Silverio. Added to Dr Morris about resident's previous stool occult blood which is positive. MD made aware of resident's Hgb result drawn today which is lower than the last time, and he said he'll come and see the resident tomorrow.
[2025-01-06] MEDS: INSULIN GLARGINE 100 UNIT/ML INSULN.PEN 6 UNIT SC (17:54)
[2025-01-06] MEDS: ATORVASTATIN 20 MG TABLET 40 MG GT (20:05)
[2025-01-07] VITALS (7 sets, daily range): BP systolic 96–102; BP diastolic 60–65; PULSE 74–83; RESP 24–33; TEMP 36.3; O2SAT 94–98
[2025-01-07] MEDS: VALPROIC ACID 250 MG/5 ML 500 MG GT ×3 (04:59→21:05)
[2025-01-07] MEDS: ASPIRIN 81 MG TAB.CHEW GT (09:08)
[2025-01-07] MEDS: BUSPIRONE 10 MG TABLET GT ×2 (09:09→20:08)
[2025-01-07] MEDS: CHOLECALCIFEROL (VITAMIN D3) 25 MCG TABLET GT ×2 (09:09→20:08)
[2025-01-07] MEDS: DEX/HYPRO/GLY ARTIFICAL TEARS 225 DROP/15 ML BTL BOTH EYES ×2 (09:09→20:09)
[2025-01-07] MEDS: SODIUM CHLORIDE TAB 1,000 MG TABLET.SOL 1000 MG GT (09:10)
--- NOTE | 2025-01-07 15:45 | PC.NURSE ---
Resident on blood sugar check with regular insulin sliding scale coverage BID and on Lantus [address] Silverio reviewed resident's blood sugar results , orders received to increase Lantus to 8 units at 1800.
[2025-01-07] MEDS: INSULIN GLARGINE 100 UNIT/ML INSULN.PEN 8 UNIT SC (17:13)
[2025-01-07] MEDS: ATORVASTATIN 20 MG TABLET 40 MG GT (20:08)
[2025-01-08] VITALS (8 sets, daily range): BP systolic 102–130; BP diastolic 67–77; PULSE 73–87; RESP 19–31; TEMP 36–36.3; O2SAT 94–99
[2025-01-08] MEDS: VALPROIC ACID 250 MG/5 ML 500 MG GT ×3 (04:59→21:28)
[2025-01-08] MEDS: ASPIRIN 81 MG TAB.CHEW GT (08:51)
[2025-01-08] MEDS: CHOLECALCIFEROL (VITAMIN D3) 25 MCG TABLET GT ×2 (08:52→20:15)
[2025-01-08] MEDS: BUSPIRONE 10 MG TABLET GT ×2 (08:52→20:14)
[2025-01-08] MEDS: DEX/HYPRO/GLY ARTIFICAL TEARS 225 DROP/15 ML BTL BOTH EYES ×2 (08:53→20:15)
[2025-01-08] MEDS: SODIUM CHLORIDE TAB 1,000 MG TABLET.SOL 1000 MG GT (08:54)
--- NOTE | 2025-01-08 12:47 | PC.NURSE ---
01/08/25@1248: Repeat occult blood test done on resident's BM and result were negative for blood detection. Resident venice and resting.
--- NOTE | 2025-01-08 15:29 | PC.NURSE ---
01/08/25@1529: Dr. Silverio call and made aware of occult blood negative result and ordered to resume order for Levonox 0.4 mg SQ as of now.
[2025-01-08] MEDS: INSULIN GLARGINE 100 UNIT/ML INSULN.PEN 8 UNIT SC (17:55)
[2025-01-08] MEDS: ATORVASTATIN 20 MG TABLET 40 MG GT (20:14)
[2025-01-09] VITALS (8 sets, daily range): BP systolic 97–121; BP diastolic 56–73; PULSE 73–86; RESP 23–35; TEMP 36.4–36.7; O2SAT 98–99
[2025-01-09] MEDS: VALPROIC ACID 250 MG/5 ML 500 MG GT ×3 (05:02→21:32)
[2025-01-09] MEDS: ASPIRIN 81 MG TAB.CHEW GT (09:19)
[2025-01-09] MEDS: BUSPIRONE 10 MG TABLET GT ×2 (09:20→21:32)
[2025-01-09] MEDS: CHOLECALCIFEROL (VITAMIN D3) 25 MCG TABLET GT ×2 (09:20→21:32)
[2025-01-09] MEDS: DEX/HYPRO/GLY ARTIFICAL TEARS 225 DROP/15 ML BTL BOTH EYES ×2 (09:20→21:32)
[2025-01-09] MEDS: SODIUM CHLORIDE TAB 1,000 MG TABLET.SOL 1000 MG GT (09:21)
[2025-01-09] MEDS: ENOXAPARIN SODIUM 40 MG/0.4 ML SYRINGE SC (10:00)
--- NOTE | 2025-01-09 11:26 | PC.NURSE ---
01/09/25@1125: Dr. Arturo ZHOU, GI specialist called to report of the latest Occult Blood results. This junior technical writer spoke with doctors foundation digger (Gris) and left message regarding negative results of test. This junior technical writer also reported that pt's levonox order that was on hold due to bleeding, was resumed yesterday, per Dr. Silverio.
[2025-01-09] MEDS: INSULIN GLARGINE 100 UNIT/ML INSULN.PEN 8 UNIT SC (17:21)
[2025-01-09] MEDS: ATORVASTATIN 20 MG TABLET 40 MG GT (21:31)
--- NOTE | 2025-01-09 21:37 | ESPR_ITS ---
Progress Note - SubAcute DIAGNOSIS (1) Chronic anoxic encephalopathy: Status: Chronic (2) Chronic respiratory failure: Status: Chronic (3) Ventilator dependent: Status: Chronic (4) Seizures: Status: Chronic (5) Essential hypertension: Status: Chronic (6) PEG (percutaneous endoscopic gastrostomy) status: Status: Chronic (7) Tracheostomy dependence: Status: Chronic (8) Clostridium difficile diarrhea: Status: Acute SUBJECTIVE Fever:: none Shortness of Breath:: none Pain:: none OBJECTIVE Most recent vital signs: Last Vital Signs Temp 98.0 F 01/09/25 17:51 Pulse 80 01/09/25 17:51 Resp 35 H 01/09/25 17:51 BP 106/58 L 01/09/25 17:51 Pulse Ox 99 01/09/25 12:20 O2 Del Method Mechanical Ventilation 01/08/25 17:35 FiO2 35 01/09/25 12:20 Neurological:: eye tracking (some minimal appropriate response in gesture to simple command) Speech:: nods head Answers questions:: sometimes (gestures) Respiratory:: lungs clear Cardiovascular: RRR Abdomen: soft Extremities:: deformities Tracheostomy:: to ventilator Feeding per:: G tube Complaints:: none ASSESSMENT & PLAN Assessment: 69 yrs of age female being re-admitted to [facility] with Hypertension/hyperlipidemia/epilepsy, recently treated in acute care for UTI sepsis with and on Rocephin one gram daily iv x 4 days. chronic encephalopathy/ chronic respiratory failure/ Ventilator dependent/Trach and feeding G tube as before. VSS , no pain issues. Continued on Vancomycin for C. Diff. tolerating it well. Completed 4 weeks of vancomycin. No new issues. Occasional loose stool still .VSS. No pain.
[2025-01-10] VITALS (8 sets, daily range): BP systolic 92–148; BP diastolic 56–80; PULSE 73–84; RESP 23–33; TEMP 36.1–36.5; O2SAT 97–100
[2025-01-10] MEDS: VALPROIC ACID 250 MG/5 ML 500 MG GT ×3 (05:43→21:14)
[2025-01-10] MEDS: ASPIRIN 81 MG TAB.CHEW GT (08:46)
[2025-01-10] MEDS: BUSPIRONE 10 MG TABLET GT ×2 (08:47→21:10)
[2025-01-10] MEDS: ENOXAPARIN SODIUM 40 MG/0.4 ML SYRINGE SC (08:47)
[2025-01-10] MEDS: CHOLECALCIFEROL (VITAMIN D3) 25 MCG TABLET GT ×2 (08:47→21:13)
[2025-01-10] MEDS: SODIUM CHLORIDE TAB 1,000 MG TABLET.SOL 1000 MG GT (08:47)
[2025-01-10] MEDS: DEX/HYPRO/GLY ARTIFICAL TEARS 225 DROP/15 ML BTL BOTH EYES ×2 (08:47→21:13)
[2025-01-10] MEDS: INSULIN GLARGINE 100 UNIT/ML INSULN.PEN 8 UNIT SC (17:04)
[2025-01-10] MEDS: ATORVASTATIN 20 MG TABLET 40 MG GT (21:09)
[2025-01-10] MEDS: ACETAMINOPHEN 325 MG TABLET 650 MG GT (21:17)
[2025-01-11] VITALS (8 sets, daily range): BP systolic 102–140; BP diastolic 61–82; PULSE 63–92; RESP 25–30; TEMP 36.1–36.4; O2SAT 97–99
[2025-01-11] MEDS: VALPROIC ACID 250 MG/5 ML 500 MG GT ×3 (05:46→21:01)
[2025-01-11] MEDS: ENOXAPARIN SODIUM 40 MG/0.4 ML SYRINGE SC (08:34)
[2025-01-11] MEDS: ASPIRIN 81 MG TAB.CHEW GT (08:38)
[2025-01-11] MEDS: BUSPIRONE 10 MG TABLET GT ×2 (08:38→20:59)
[2025-01-11] MEDS: DEX/HYPRO/GLY ARTIFICAL TEARS 225 DROP/15 ML BTL BOTH EYES ×2 (08:39→21:00)
[2025-01-11] MEDS: SODIUM CHLORIDE TAB 1,000 MG TABLET.SOL 1000 MG GT (08:39)
[2025-01-11] MEDS: CHOLECALCIFEROL (VITAMIN D3) 25 MCG TABLET GT ×2 (08:39→20:59)
[2025-01-11] MEDS: ACETAMINOPHEN 325 MG TABLET 650 MG GT (08:40)
[2025-01-11] MEDS: ATORVASTATIN 20 MG TABLET 40 MG GT (20:59)
[2025-01-12] VITALS (8 sets, daily range): BP systolic 94–116; BP diastolic 60–70; PULSE 70–80; RESP 20–27; TEMP 36.2–36.4; O2SAT 97–99
--- NOTE | 2025-01-12 02:30 | PC.NURSE ---
At [employer] summoned this nurse to resident room due to vent alarming, upon entering room, this nurse noted vent alarming oxygen supply lost, resident face was turning red, this nurse connected ambu bag to the oxygen tank behind vent and resident was bagged, RT called to room, upon assessing vent, RT noted the vent oxygen tube was connected to the other tank behind vent and not to the wall oxygen supply, the tank was empty which cause vent to alarm oxygen supply lost, resident did not have a oxygen flowmeter connected to wall, RT connected tube to wall oxygen supply and resident was connected back to vent, resident had a trach and vent change during day shift, resident in room resting, HOB, call light within reach.
[2025-01-12] MEDS: VALPROIC ACID 250 MG/5 ML 500 MG GT ×3 (05:33→21:17)
[2025-01-12] MEDS: ASPIRIN 81 MG TAB.CHEW GT (09:26)
[2025-01-12] MEDS: ENOXAPARIN SODIUM 40 MG/0.4 ML SYRINGE SC (09:27)
[2025-01-12] MEDS: DEX/HYPRO/GLY ARTIFICAL TEARS 225 DROP/15 ML BTL BOTH EYES ×2 (09:27→21:16)
[2025-01-12] MEDS: BUSPIRONE 10 MG TABLET GT ×2 (09:27→21:16)
[2025-01-12] MEDS: CHOLECALCIFEROL (VITAMIN D3) 25 MCG TABLET GT ×2 (09:27→09:32)
[2025-01-12] MEDS: SODIUM CHLORIDE TAB 1,000 MG TABLET.SOL 1000 MG GT (09:29)
[2025-01-12] MEDS: INSULIN GLARGINE 100 UNIT/ML INSULN.PEN 8 UNIT SC (18:34)
--- NOTE | 2025-01-12 20:52 | PD.IMCONS ---
HPI Data of Consult Requesting Physician: Lalo Silverio MD Primary Care Provider: Physician No Primary/Family Consult Narrative Reason for consult: Hemoccult positive stool anemia hemoglobin 7.7 g hematocrit 23.3 History of present illness: 69 years old female who is chronically sick with anoxic encephalopathy chronic hypoxic respiratory failure chronically ventilated via tracheostomy has a PEG tube essential hypertension With recently being treated for C. difficile enterocolitis which she has finished a course of vancomycin and the diarrhea has resolved She was found to be Hemoccult positive but the repeat Hemoccult testing is negative cc:: cc: Lalo Silverio MD Review of Systems Review of Systems ROS Unobtainable: unobtainable due to medical condition Past Medical History Surgical History OTHER SURGICAL HX: As in the history present illness Meds Home Medications and Allergies Allergies Allergy/AdvReac Type Severity Reaction Status Date / Time codeine Allergy Verified 06/24/24 19:33 Exam Vital Signs Temp Pulse Resp BP Pulse Ox O2 Del Method FiO2 97.6 F 73 25 H 116/70 97 Mechanical Ventilation 35 01/12/25 17:51 01/12/25 19:07 01/12/25 19:07 01/12/25 17:51 01/12/25 19:07 01/12/25 17:51 01/12/25 19:07 Constitutional Comments: Chronically ill-appearing Routine Respiratory Exam Comments: Scattered rhonchi mechanically ventilated Routine Abdominal Exam Comments: Gastrostomy tube in place Results Labs 01/06/25 10:28 01/01/25 06:45 Assessment and Plan Additional Assessment & Plan Additional Plan: # Chronic anemia with initially Hemoccult positive stool and Hemoccult negative in the setting of C. difficile enterocolitis Plan Hemoccult positive which is most likely due to enterocolitis caused by the C. difficile It has already turned negative No need for invasive GI workup at this moment Will recommend iron panel and iron saturation along with B12 folate level and reticulocyte count which I have ordered Will follow the patient Thank you once again for the opportunity to participate in the care of this patient Other medical problems include Anoxic encephalopathy requiring mechanical ventilation post tracheostomy as well as gastrostomy tube Essential hypertension
[2025-01-12] MEDS: ATORVASTATIN 20 MG TABLET 40 MG GT (21:15)
[2025-01-13] VITALS (7 sets, daily range): BP systolic 112–118; BP diastolic 63–68; PULSE 71–89; RESP 25–33; TEMP 36.2–36.8; O2SAT 97–99
[2025-01-13] MEDS: VALPROIC ACID 250 MG/5 ML 500 MG GT ×3 (05:27→21:15)
[2025-01-13 06:52] LABS: Basophils # (Auto) 0.1 Thou/mm3 (0.0-0.2); Basophils % (Auto) 1 % (0-2.5); Eosinophils # (Auto) 0.5 Thou/mm3 (0.0-0.5); Eosinophils % (Auto) 3 % (0-10); Hematocrit 24.2 % (36.0-46.0); Immature Granulocytes Auto 0.37 Thou/mm3 (0.00-0.00); Immature Reticulocyte Fraction 31.6 % (3.0-15.9); Lymphocytes # (Auto) 3.0 Thou/mm3 (1.0-4.8); Lymphocytes % (Auto) 18 % (10-50); Mean Corpuscular HGB Conc 32.2 g/dl (31.0-37.0); Mean Corpuscular Hemoglobin 31.3 pg (25.0-35.0); Mean Corpuscular Volume 97 fL (80-100); Monocytes # (Auto) 2.0 Thou/mm3 (0.0-0.8); Monocytes % (Auto) 12 % (0-12); Neutrophils # (Auto) 10.7 Thou/mm3 (1.8-7.7); Neutrophils % (Auto) 64 % (37-80); Nucleated Red Blood Cell # 0.02 Thou/mm3 (0.00-0.00); Nucleated Red Blood Cell % 0 /100 WBC (0); Platelet Count 331 Thou/mm3 (140-440); RDW Standard Deviation 60.5 fL (36.4-46.3); Red Blood Count 2.49 Miln/mm3 (4.00-5.20); Reticulocyte % (Auto) 6.3 % (0.5-1.5); Reticulocyte Absolute Auto 156.9 Biln/L (25.0-75.0); Reticulocyte Hgb Content 34.6 pg (28.0-35.0); White Blood Count 16.6 Thou/mm3 (3.6-11.0)
[2025-01-13 06:59] LABS: Hemoglobin 7.8 g/dL (12.0-16.0)
[2025-01-13 07:20] LABS: Iron 46 mcg/dL (50-170); Percent Iron Saturation 12 % (20-55); Total Iron Binding Capacity 383 mcg/dL (250-425); Unsaturated Iron Binding 337 (225-295)
[2025-01-13 07:30] LABS: Folate > 24.00 ng/mL (>5.38); Vitamin B12 1414 pg/mL (211-911)
[2025-01-13] MEDS: ASPIRIN 81 MG TAB.CHEW GT (09:08)
[2025-01-13] MEDS: CHOLECALCIFEROL (VITAMIN D3) 25 MCG TABLET GT ×2 (09:09→20:12)
[2025-01-13] MEDS: DEX/HYPRO/GLY ARTIFICAL TEARS 225 DROP/15 ML BTL BOTH EYES ×2 (09:09→20:12)
[2025-01-13] MEDS: BUSPIRONE 10 MG TABLET GT ×2 (09:09→20:12)
[2025-01-13] MEDS: ENOXAPARIN SODIUM 40 MG/0.4 ML SYRINGE SC (09:09)
[2025-01-13] MEDS: SODIUM CHLORIDE TAB 1,000 MG TABLET.SOL 1000 MG GT (09:10)
--- NOTE | 2025-01-13 17:17 | PC.NURSE ---
Notified Dr. Morris regarding results for recent lab ordering. stated he will review and call back with further orders. resident remains stable at this time no blood in stool noted.
[2025-01-13] MEDS: INSULIN GLARGINE 100 UNIT/ML INSULN.PEN 8 UNIT SC (17:44)
[2025-01-13] MEDS: ATORVASTATIN 20 MG TABLET 40 MG GT (20:12)
[2025-01-14] VITALS (7 sets, daily range): BP systolic 105–135; BP diastolic 63–76; PULSE 63–89; RESP 24–35; TEMP 36.2–36.5; O2SAT 95–98
[2025-01-14] MEDS: VALPROIC ACID 250 MG/5 ML 500 MG GT ×3 (05:25→21:27)
--- NOTE | 2025-01-14 07:55 | PD.SAPROG ---
Progress Note - SubAcute DIAGNOSIS (1) Chronic anoxic encephalopathy: Status: Chronic (2) Chronic respiratory failure: Status: Chronic (3) Ventilator dependent: Status: Chronic (4) Seizures: Status: Chronic (5) Essential hypertension: Status: Chronic (6) PEG (percutaneous endoscopic gastrostomy) status: Status: Chronic (7) Tracheostomy dependence: Status: Chronic (8) Clostridium difficile diarrhea: Status: Acute SUBJECTIVE Fever:: none Shortness of Breath:: none Pain:: none OBJECTIVE Most recent vital signs: Last Vital Signs Temp 97.7 F 01/14/25 06:00 Pulse 73 01/14/25 07:36 Resp 35 H 01/14/25 07:36 BP 119/71 01/14/25 06:00 Pulse Ox 97 01/14/25 07:36 O2 Del Method Mechanical Ventilation 01/12/25 17:51 FiO2 35 01/14/25 07:36 Neurological:: eye tracking (some minimal appropriate response in gesture to simple command) Speech:: nods head Answers questions:: sometimes (gestures) Respiratory:: lungs clear Cardiovascular: RRR Abdomen: soft Extremities:: deformities Tracheostomy:: to ventilator Feeding per:: G tube Complaints:: none ASSESSMENT & PLAN Assessment: 69 yrs of age female being re-admitted to [facility] with Hypertension/hyperlipidemia/epilepsy, recently treated in acute care for UTI sepsis with and on Rocephin one gram daily iv x 4 days. chronic encephalopathy/ chronic respiratory failure/ Ventilator dependent/Trach and feeding G tube as before. VSS , no pain issues. Continued on Vancomycin for C. Diff. tolerating it well. Completed 4 weeks of vancomycin. No new issues. Occasional loose stool still .VSS. No pain.
[2025-01-14] MEDS: BUSPIRONE 10 MG TABLET GT ×2 (09:20→20:04)
[2025-01-14] MEDS: ASPIRIN 81 MG TAB.CHEW GT (09:20)
[2025-01-14] MEDS: CHOLECALCIFEROL (VITAMIN D3) 25 MCG TABLET GT ×2 (09:22→20:04)
[2025-01-14] MEDS: DEX/HYPRO/GLY ARTIFICAL TEARS 225 DROP/15 ML BTL BOTH EYES ×2 (09:22→20:04)
[2025-01-14] MEDS: ENOXAPARIN SODIUM 40 MG/0.4 ML SYRINGE SC (09:23)
[2025-01-14] MEDS: SODIUM CHLORIDE TAB 1,000 MG TABLET.SOL 1000 MG GT (09:24)
--- NOTE | 2025-01-14 16:35 | PC.NURSE ---
Called Dr. Morris today and he said he will review the lab result and get back to us.
[2025-01-14] MEDS: INSULIN GLARGINE 100 UNIT/ML INSULN.PEN 8 UNIT SC (17:53)
[2025-01-14] MEDS: ATORVASTATIN 20 MG TABLET 40 MG GT (20:03)
--- NOTE | 2025-01-14 20:34 | PD.IMPROG ---
Documentation for date of: 01/14/25 Subjective Subjective Interval history: Laboratory data reviewed Hemoglobin hematocrit 7.8 and 24.2 pretty stable although low Iron saturation is 12% somewhat low B12 1414 which is normal and folate level is greater than 24 which is normal Since patient is Hemoccult negative no invasive GI workup needed at this time Will recommend the patient to put on supplemental iron 325 mg of ferrous sulfate twice daily along with vitamin C 500 mg twice daily Repeat CBC in 2 weeks Exam Vital Signs Temp Pulse Resp BP Pulse Ox O2 Del Method FiO2 97.3 F 63 32 H 123/76 95 Mechanical Ventilation 35 01/14/25 17:50 01/14/25 19:16 01/14/25 19:16 01/14/25 17:50 01/14/25 19:16 01/12/25 17:51 01/14/25 19:16 Objective Labs 01/15/25 06:08 01/01/25 06:45 Impressions Impression: Iron deficiency anemia Advised supplemental iron as in the HPI Assessment & Plan A&P Narrative # Chronic anemia with initially Hemoccult positive stool and Hemoccult negative in the setting of C. difficile enterocolitis Plan Hemoccult positive which is most likely due to enterocolitis caused by the C. difficile It has already turned negative No need for invasive GI workup at this moment Will recommend iron panel and iron saturation along with B12 folate level and reticulocyte count which I have ordered Will follow the patient Thank you once again for the opportunity to participate in the care of this patient Other medical problems include Anoxic encephalopathy requiring mechanical ventilation post tracheostomy as well as gastrostomy tube Essential hypertension Time Spent With Patient Time: Total time spent is greater than 50% in coordination of care (as documented) at patient's floor/unit and/or counseling patient:
--- NOTE | 2025-01-14 22:26 | PC.NURSE ---
Dr Morris here to see resident and review labs, new order to start Ferrous sulfate 325mg BID, Vitamin C 500 mg BID x14 days, then repeat CBC and re-eval with
[2025-01-15] VITALS (13 sets, daily range): BP systolic 90–146; BP diastolic 57–85; PULSE 73–116; RESP 18–36; TEMP 36.1–39.1; O2SAT 93–99
[2025-01-15] MEDS: VALPROIC ACID 250 MG/5 ML 500 MG GT ×3 (05:28→21:08)
[2025-01-15] MEDS: ACETAMINOPHEN 325 MG TABLET 650 MG GT ×3 (05:33→20:01)
[2025-01-15 06:19] LABS: Basophils # (Auto) 0.1 Thou/mm3 (0.0-0.2); Basophils % (Auto) 0 % (0-2.5); Eosinophils # (Auto) 0.2 Thou/mm3 (0.0-0.5); Eosinophils % (Auto) 1 % (0-10); Hematocrit 25.9 % (36.0-46.0); Immature Granulocytes Auto 0.26 Thou/mm3 (0.00-0.00); Lymphocytes # (Auto) 1.9 Thou/mm3 (1.0-4.8); Lymphocytes % (Auto) 8 % (10-50); Mean Corpuscular HGB Conc 31.7 g/dl (31.0-37.0); Mean Corpuscular Hemoglobin 31.3 pg (25.0-35.0); Mean Corpuscular Volume 99 fL (80-100); Monocytes # (Auto) 2.5 Thou/mm3 (0.0-0.8); Monocytes % (Auto) 11 % (0-12); Neutrophils # (Auto) 18.0 Thou/mm3 (1.8-7.7); Neutrophils % (Auto) 79 % (37-80); Nucleated Red Blood Cell # 0.00 Thou/mm3 (0.00-0.00); Nucleated Red Blood Cell % 0 /100 WBC (0); Platelet Count 343 Thou/mm3 (140-440); RDW Standard Deviation 64.1 fL (36.4-46.3); Red Blood Count 2.62 Miln/mm3 (4.00-5.20); White Blood Count 22.8 Thou/mm3 (3.6-11.0)
[2025-01-15 06:30] LABS: Hemoglobin 8.2 g/dL (12.0-16.0)
--- NOTE | 2025-01-15 06:37 | PC.NURSE ---
Resident had elevated rectal temp at 0400: 100.9, cooling measures initiated, rechecked temp rectall at 0500: 102.3, Tylenol was given and temp protocol was started. Lab was drawn, sputum culture, covid and flu collected, enciso placed to collect urine for sample due to resident having just voided.
--- NOTE | 2025-01-15 06:40 | PC.NURSE ---
Notified Dr Silverio regarding elevated temps, and current WBC increased to 22, order to start Rocephin 1 gram IV daily and re-eval with MD when culture results are available.
[2025-01-15 06:43] LABS: COVID-19 Antigen (In-House) Negative (Negative); Influenza A Ag Negative; Influenza B Ag Negative
[2025-01-15 06:48] LABS: Procalcitonin 0.05 ng/ml (0.0-0.49)
[2025-01-15 08:10] LABS: Collection Type, Urine Catheter; Squamous Epithelial Cell,Urine 0 /hpf (0-5)
[2025-01-15 08:25] LABS: Bilirubin,Urine Negative (Negative); Blood,Urine Trace (Negative); Clarity,Urine Clear (Clear/Hazy); Color,Urine Lt-Yellow (Lt Yel-Yel); Culture Indicated,Urine Not Indicated; Glucose, Urine Negative (Negative); Ketones,Urine Trace (Negative); Leukocyte Esterase,Urine Negative (Negative); Nitrite,Urine Negative (Negative); PH,Urine 7.5 (5.0-7.0); Protein,Urine Trace (Neg - Trace); RBC,Urine 17 /hpf (0-3); Specific Gravity,Urine 1.015 (1.001-1.035); Urobilinogen,Urine Negative mg/dL (0.0-1.0); WBC,Urine < 1 /hpf (0-5)
[2025-01-15] MEDS: ASPIRIN 81 MG TAB.CHEW GT (09:17)
[2025-01-15] MEDS: ASCORBIC ACID 500 MG TABLET GT ×2 (09:17→20:01)
[2025-01-15] MEDS: CHOLECALCIFEROL (VITAMIN D3) 25 MCG TABLET GT ×2 (09:18→20:02)
[2025-01-15] MEDS: BUSPIRONE 10 MG TABLET GT ×2 (09:18→20:02)
[2025-01-15] MEDS: ENOXAPARIN SODIUM 40 MG/0.4 ML SYRINGE SC (09:19)
[2025-01-15] MEDS: DEX/HYPRO/GLY ARTIFICAL TEARS 225 DROP/15 ML BTL BOTH EYES ×2 (09:19→20:02)
[2025-01-15] MEDS: FERROUS SULFATE 220 MG/5 ML ELIXIR 325 MG GT ×2 (09:20→20:03)
[2025-01-15] MEDS: SODIUM CHLORIDE TAB 1,000 MG TABLET.SOL 1000 MG GT (09:21)
[2025-01-15] MEDS: CEFTRIAXONE 1 GM VIAL.PORT IV (09:30)
--- NOTE | 2025-01-15 13:12 | PC.SS ---
Resident remains on vent with trach in place and GT for medication and nutrition. Resident is unable to make needs known, sales and service representative will continue to make all medical decisions for resident. Resident will remain in current care as resident is not ready to DC to lower level of care, she will continue to have all subacute care needs met by staff.
--- NOTE | 2025-01-15 13:37 | PC.NURSE ---
Entry for 0930 this AM. startefd 1st dose of SBT therapy. (Rocephin 1gm IV x5 days or until cultures are completed. Resident tolerated 1st dose well. without any adverse reactions. IV placed 22g to LT hand. continuer to manage increased temp. 100.0 rectally at 0940 rectally. continue cooling measures.
[2025-01-15] MEDS: INSULIN GLARGINE 100 UNIT/ML INSULN.PEN 8 UNIT SC (17:12)
[2025-01-15] MEDS: ATORVASTATIN 20 MG TABLET 40 MG GT (20:02)
[2025-01-16] VITALS (9 sets, daily range): BP systolic 98–132; BP diastolic 64–75; PULSE 72–100; RESP 23–35; TEMP 36.1–36.3; O2SAT 97–98
[2025-01-16] MEDS: VALPROIC ACID 250 MG/5 ML 500 MG GT ×3 (05:01→21:21)
--- NOTE | 2025-01-16 06:36 | PC.NURSE ---
Resident on Rocephin 1gm IV daily for unknown source of fever, resident had a rectal temp. of 100.2F, tyl. 650mg was administered by GANG INVESTIGATOR, temp. rechecked and noted at 97.0F rectally, no other episodes of fevers, resident has a 22G IV to left wrist, patent, no s/s of infiltration or infection, water provided via Gtube, no s/s of distress or discomfort noted.
[2025-01-16] MEDS: SODIUM CHLORIDE TAB 1,000 MG TABLET.SOL 1000 MG GT (08:41)
[2025-01-16] MEDS: FERROUS SULFATE 220 MG/5 ML ELIXIR 325 MG GT ×2 (08:42→20:53)
[2025-01-16] MEDS: CHOLECALCIFEROL (VITAMIN D3) 25 MCG TABLET GT ×2 (08:42→20:50)
[2025-01-16] MEDS: ENOXAPARIN SODIUM 40 MG/0.4 ML SYRINGE SC (08:42)
[2025-01-16] MEDS: DEX/HYPRO/GLY ARTIFICAL TEARS 225 DROP/15 ML BTL BOTH EYES ×2 (08:42→20:50)
[2025-01-16] MEDS: ASCORBIC ACID 500 MG TABLET GT ×2 (08:43→20:49)
[2025-01-16] MEDS: BUSPIRONE 10 MG TABLET GT ×2 (08:43→20:49)
[2025-01-16] MEDS: ASPIRIN 81 MG TAB.CHEW GT (08:43)
[2025-01-16] MEDS: CEFTRIAXONE 1 GM VIAL.PORT IV (08:50)
--- NOTE | 2025-01-16 13:19 | PC.NURSE ---
Resident continues on IV antibiotic for fever. Cultures still pending. No A/R from abt noted at this time. Will continue to monitor. Remains on contact precautions.
[2025-01-16] MEDS: ACETAMINOPHEN 325 MG TABLET 650 MG GT (20:47)
[2025-01-16] MEDS: ATORVASTATIN 20 MG TABLET 40 MG GT (20:49)
[2025-01-17] VITALS (11 sets, daily range): BP systolic 91–117; BP diastolic 61–68; PULSE 67–87; RESP 19–35; TEMP 36.1–36.6; O2SAT 96–98
[2025-01-17] MEDS: VALPROIC ACID 250 MG/5 ML 500 MG GT ×3 (05:10→21:17)
[2025-01-17] MEDS: ASCORBIC ACID 500 MG TABLET GT ×2 (08:47→21:18)
[2025-01-17] MEDS: BUSPIRONE 10 MG TABLET GT ×2 (08:47→21:17)
[2025-01-17] MEDS: CHOLECALCIFEROL (VITAMIN D3) 25 MCG TABLET GT ×2 (08:48→21:00)
[2025-01-17] MEDS: ASPIRIN 81 MG TAB.CHEW GT (08:48)
[2025-01-17] MEDS: ENOXAPARIN SODIUM 40 MG/0.4 ML SYRINGE SC (08:49)
[2025-01-17] MEDS: DEX/HYPRO/GLY ARTIFICAL TEARS 225 DROP/15 ML BTL BOTH EYES (08:49)
[2025-01-17] MEDS: FERROUS SULFATE 220 MG/5 ML ELIXIR 325 MG GT ×2 (08:50→21:00)
[2025-01-17] MEDS: SODIUM CHLORIDE TAB 1,000 MG TABLET.SOL 1000 MG GT (08:51)
[2025-01-17] MEDS: CEFTRIAXONE 1 GM VIAL.PORT IV (09:11)
--- NOTE | 2025-01-17 14:46 | PC.SS ---
Resident remains on vent with trach in place and GT for medication and nutrition. Resident is unable to make needs known, primary care sales representative will continue to make all medical decisions for resident, she will continue to have all subacute care needs met by staff. On IV antibiotics with IV in place. In contact isolation.
--- NOTE | 2025-01-17 14:49 | PC.SS ---
Resident seen by dentist on 01/14/25 for initial evaluation.
[2025-01-17] MEDS: INSULIN GLARGINE 100 UNIT/ML INSULN.PEN 8 UNIT SC (18:02)
[2025-01-17] MEDS: ATORVASTATIN 20 MG TABLET 40 MG GT (21:18)
--- NOTE | 2025-01-17 22:05 | ESPR_ITS ---
Progress Note - SubAcute DIAGNOSIS (1) Chronic anoxic encephalopathy: Status: Chronic (2) Chronic respiratory failure: Status: Chronic (3) Ventilator dependent: Status: Chronic (4) Seizures: Status: Chronic (5) Essential hypertension: Status: Chronic (6) PEG (percutaneous endoscopic gastrostomy) status: Status: Chronic (7) Tracheostomy dependence: Status: Chronic (8) Clostridium difficile diarrhea: Status: Acute SUBJECTIVE Fever:: none Shortness of Breath:: none Pain:: none OBJECTIVE Most recent vital signs: Last Vital Signs Temp 97.4 F 01/17/25 16:55 Pulse 81 01/17/25 17:00 Resp 28 H 01/17/25 17:00 BP 117/67 01/17/25 16:55 Pulse Ox 98 01/17/25 17:00 O2 Del Method Mechanical Ventilation 01/17/25 16:55 FiO2 35 01/17/25 17:00 Neurological:: eye tracking (some minimal appropriate response in gesture to simple command) Speech:: nods head Answers questions:: sometimes (gestures) Respiratory:: lungs clear Cardiovascular: RRR Abdomen: soft Extremities:: deformities Tracheostomy:: to ventilator Feeding per:: G tube Complaints:: none ASSESSMENT & PLAN Assessment: 69 yrs of age female being re-admitted to [facility] with Hypertension/hyperlipidemia/epilepsy, recently treated in acute care for UTI sepsis with and on Rocephin one gram daily iv x 4 days. chronic encephalopathy/ chronic respiratory failure/ Ventilator dependent/Trach and feeding G tube as before. VSS , no pain issues. Continued on Vancomycin for C. Diff. tolerating it well. Completed 4 weeks of vancomycin. No new issues. Occasional loose stool still .VSS. No pain.
--- NOTE | 2025-01-17 23:57 | PC.NURSE ---
Resident remains on IV antibiotics Rocephin 1 gram IV for elevated WBCs, pending culture results, no side effects noted
[2025-01-18] VITALS (10 sets, daily range): BP systolic 108–122; BP diastolic 62–73; PULSE 67–99; RESP 22–32; TEMP 36.1–38; O2SAT 96–98
[2025-01-18] MEDS: ACETAMINOPHEN 325 MG TABLET 650 MG GT ×2 (00:20→09:06)
[2025-01-18] MEDS: VALPROIC ACID 250 MG/5 ML 500 MG GT ×3 (05:13→21:24)
--- NOTE | 2025-01-18 07:53 | PC.NURSE ---
Late entry for 01/17/25: Pt continues on Rocephin 1gm IV qd for tx of pseudomonas of the sputum, started 01/15/25. Pt has a 22g IV to left top hand, and no infiltration noted and irrigates well.
--- NOTE | 2025-01-18 07:56 | PC.NURSE ---
01/18/25@0700: Pt continues on Rocephin 1gm IV tx for pseudomonas of the sputum qd and has a 22g IV to left top hand and is patent. C/S of sputum/urine still pending. Pt was still running a fever of 100.4 last night on NOC shift. Pt was given tylenol at 0020 and at 0400 was down to 98.9 rectal. Will continue to monitor change in condition.
[2025-01-18] MEDS: ASCORBIC ACID 500 MG TABLET GT ×2 (08:59→21:24)
[2025-01-18] MEDS: BUSPIRONE 10 MG TABLET GT ×2 (08:59→21:24)
[2025-01-18] MEDS: ASPIRIN 81 MG TAB.CHEW GT (09:00)
[2025-01-18] MEDS: CEFTRIAXONE 1 GM VIAL.PORT IV (09:00)
[2025-01-18] MEDS: DEX/HYPRO/GLY ARTIFICAL TEARS 225 DROP/15 ML BTL BOTH EYES ×2 (09:00→21:24)
[2025-01-18] MEDS: CHOLECALCIFEROL (VITAMIN D3) 25 MCG TABLET GT ×2 (09:00→21:24)
[2025-01-18] MEDS: ENOXAPARIN SODIUM 40 MG/0.4 ML SYRINGE SC (09:01)
[2025-01-18] MEDS: FERROUS SULFATE 220 MG/5 ML ELIXIR 325 MG GT ×2 (09:02→21:24)
[2025-01-18] MEDS: SODIUM CHLORIDE TAB 1,000 MG TABLET.SOL 1000 MG GT (09:03)
[2025-01-18] MEDS: guaiFENesin Liq 100 MG/5 ML LIQUID 300 MG GT (09:03)
[2025-01-18] MEDS: INSULIN GLARGINE 100 UNIT/ML INSULN.PEN 8 UNIT SC (17:08)
[2025-01-18] MEDS: ATORVASTATIN 20 MG TABLET 40 MG GT (21:24)
[2025-01-19] VITALS (8 sets, daily range): BP systolic 90–144; BP diastolic 60–75; PULSE 62–83; RESP 22–35; TEMP 36.1–36.6; O2SAT 95–98
[2025-01-19] MEDS: VALPROIC ACID 250 MG/5 ML 500 MG GT ×3 (05:55→21:29)
--- NOTE | 2025-01-19 08:34 | PC.NURSE ---
.made aware sputum culture was received and it has 1+mixed oral maritza ,pseudomonas aeruginosa 4+, no WBC seen, and he said it was colonization, and order to continue the rocephin IV till the 4th day (complete 4 days on antibiotic) then D/C.
[2025-01-19] MEDS: BUSPIRONE 10 MG TABLET GT ×2 (08:58→20:12)
[2025-01-19] MEDS: ASPIRIN 81 MG TAB.CHEW GT (08:59)
[2025-01-19] MEDS: ASCORBIC ACID 500 MG TABLET GT ×2 (08:59→20:15)
[2025-01-19] MEDS: DEX/HYPRO/GLY ARTIFICAL TEARS 225 DROP/15 ML BTL BOTH EYES ×2 (09:00→20:23)
[2025-01-19] MEDS: FERROUS SULFATE 220 MG/5 ML ELIXIR 325 MG GT ×2 (09:00→20:22)
[2025-01-19] MEDS: SODIUM CHLORIDE TAB 1,000 MG TABLET.SOL 1000 MG GT (09:00)
[2025-01-19] MEDS: CHOLECALCIFEROL (VITAMIN D3) 25 MCG TABLET GT ×2 (09:00→20:15)
[2025-01-19] MEDS: ENOXAPARIN SODIUM 40 MG/0.4 ML SYRINGE SC (09:00)
--- NOTE | 2025-01-19 15:07 | PC.NURSE ---
Resident still on antibiotic IV rocephin no adverse effect noted,
[2025-01-19] MEDS: INSULIN GLARGINE 100 UNIT/ML INSULN.PEN 8 UNIT SC (17:46)
[2025-01-19] MEDS: ATORVASTATIN 20 MG TABLET 40 MG GT (20:15)
[2025-01-19] MEDS: ACETAMINOPHEN 325 MG TABLET 650 MG GT (20:24)
[2025-01-20] VITALS (9 sets, daily range): BP systolic 100–120; BP diastolic 64–77; PULSE 63–80; RESP 23–36; TEMP 36–36.3; O2SAT 98–99; BMI 33.2
[2025-01-20] MEDS: VALPROIC ACID 250 MG/5 ML 500 MG GT ×3 (05:01→21:18)
[2025-01-20] MEDS: BUSPIRONE 10 MG TABLET GT ×2 (09:06→20:09)
[2025-01-20] MEDS: CHOLECALCIFEROL (VITAMIN D3) 25 MCG TABLET GT ×2 (09:07→20:10)
[2025-01-20] MEDS: FERROUS SULFATE 220 MG/5 ML ELIXIR 325 MG GT ×2 (09:07→20:11)
[2025-01-20] MEDS: ASPIRIN 81 MG TAB.CHEW GT (09:07)
[2025-01-20] MEDS: ENOXAPARIN SODIUM 40 MG/0.4 ML SYRINGE SC (09:07)
[2025-01-20] MEDS: DEX/HYPRO/GLY ARTIFICAL TEARS 225 DROP/15 ML BTL BOTH EYES ×2 (09:07→20:10)
[2025-01-20] MEDS: ASCORBIC ACID 500 MG TABLET GT ×2 (09:07→20:10)
[2025-01-20] MEDS: SODIUM CHLORIDE TAB 1,000 MG TABLET.SOL 1000 MG GT (09:08)
[2025-01-20] MEDS: ACETAMINOPHEN 325 MG TABLET 650 MG GT (09:09)
[2025-01-20] MEDS: INSULIN GLARGINE 100 UNIT/ML INSULN.PEN 8 UNIT SC (17:16)
[2025-01-20] MEDS: ATORVASTATIN 20 MG TABLET 40 MG GT (20:10)
[2025-01-21] VITALS (12 sets, daily range): BP systolic 107–124; BP diastolic 72–77; PULSE 61–118; RESP 24–37; TEMP 36.2–39.2; O2SAT 94–108
[2025-01-21] MEDS: VALPROIC ACID 250 MG/5 ML 500 MG GT ×3 (05:02→21:11)
[2025-01-21] MEDS: ASCORBIC ACID 500 MG TABLET GT ×2 (09:03→20:42)
[2025-01-21] MEDS: BUSPIRONE 10 MG TABLET GT ×2 (09:04→21:10)
[2025-01-21] MEDS: ASPIRIN 81 MG TAB.CHEW GT (09:04)
[2025-01-21] MEDS: DEX/HYPRO/GLY ARTIFICAL TEARS 225 DROP/15 ML BTL BOTH EYES ×2 (09:05→20:43)
[2025-01-21] MEDS: CHOLECALCIFEROL (VITAMIN D3) 25 MCG TABLET GT ×2 (09:05→20:43)
[2025-01-21] MEDS: ENOXAPARIN SODIUM 40 MG/0.4 ML SYRINGE SC (09:07)
[2025-01-21] MEDS: SODIUM CHLORIDE TAB 1,000 MG TABLET.SOL 1000 MG GT (09:07)
[2025-01-21] MEDS: FERROUS SULFATE 220 MG/5 ML ELIXIR 325 MG GT ×2 (09:07→20:43)
[2025-01-21] MEDS: ACETAMINOPHEN 325 MG TABLET 650 MG GT ×2 (11:31→17:45)
--- NOTE | 2025-01-21 11:56 | PC.NURSE ---
Resident was on Rocephin 1 gm IV daily x 4 days and completed on 01/19/25. WBC on 01/15/25 when noted with fever was 22.8. Resident noted to be flushed , V/S taken as follows: 122/70, 106, 36, 102.5 rectally,O2 saturation 95%. Called Dr Silvreio and made aware with orders received to do the fever protocol.
[2025-01-21 12:44] LABS: Collection Type, Urine Catheter
[2025-01-21 12:50] LABS: Bilirubin,Urine Negative (Negative); Blood,Urine Negative (Negative); Clarity,Urine Clear (Clear/Hazy); Color,Urine Lt-Yellow (Lt Yel-Yel); Culture Indicated,Urine Not Indicated; Glucose, Urine Negative (Negative); Ketones,Urine Negative (Negative); Leukocyte Esterase,Urine Negative (Negative); Nitrite,Urine Negative (Negative); PH,Urine 7.0 (5.0-7.0); Protein,Urine Negative (Neg - Trace); RBC,Urine < 1 /hpf (0-3); Specific Gravity,Urine 1.018 (1.001-1.035); Squamous Epithelial Cell,Urine 1 /hpf (0-5); Urobilinogen,Urine Negative mg/dL (0.0-1.0); WBC,Urine 1 /hpf (0-5)
[2025-01-21 13:27] LABS: COVID-19 Antigen (In-House) Negative (Negative)
[2025-01-21 13:39] LABS: Influenza A Ag Negative; Influenza B Ag Negative
--- NOTE | 2025-01-21 14:15 | XR_ITS ---
EXAMINATION: AP chest single view TECHNIQUE: AP portable sitting chest single view Date and time: January 13, 2025, 1441 hours INDICATION: Fever today. FINDINGS: Normal heart size No pneumonia or pulmonary edema. Prominent osteopenia Tracheostomy tube tip 5.5 cm above michael IMPRESSION: No pneumonia identified
[2025-01-21 14:34] LABS: Procalcitonin 0.16 ng/ml (0.0-0.49)
[2025-01-21 14:38] LABS: Basophils # (Auto) 0.1 Thou/mm3 (0.0-0.2); Basophils % (Auto) 1 % (0-2.5); Eosinophils # (Auto) 0.3 Thou/mm3 (0.0-0.5); Eosinophils % (Auto) 1 % (0-10); Hematocrit 25.4 % (36.0-46.0); Immature Granulocytes Auto 0.70 Thou/mm3 (0.00-0.00); Lymphocytes # (Auto) 1.1 Thou/mm3 (1.0-4.8); Lymphocytes % (Auto) 5 % (10-50); Mean Corpuscular HGB Conc 31.1 g/dl (31.0-37.0); Mean Corpuscular Hemoglobin 30.4 pg (25.0-35.0); Mean Corpuscular Volume 98 fL (80-100); Monocytes # (Auto) 4.0 Thou/mm3 (0.0-0.8); Monocytes % (Auto) 18 % (0-12); Neutrophils # (Auto) 16.7 Thou/mm3 (1.8-7.7); Neutrophils % (Auto) 73 % (37-80); Nucleated Red Blood Cell # 0.03 Thou/mm3 (0.00-0.00); Nucleated Red Blood Cell % 0 /100 WBC (0); Platelet Count 430 Thou/mm3 (140-440); RDW Standard Deviation 64.0 fL (36.4-46.3); Red Blood Count 2.60 Miln/mm3 (4.00-5.20); White Blood Count 22.8 Thou/mm3 (3.6-11.0)
[2025-01-21 15:21] LABS: Hemoglobin 7.9 g/dL (12.0-16.0)
--- NOTE | 2025-01-21 16:08 | PC.NURSE ---
Dr Silverio reviewed resident's lab results. Resident's WBC noted to be 22.8. Chest x-ray result, no pneumonia. No new orders received at this time.
[2025-01-21] MEDS: INSULIN GLARGINE 100 UNIT/ML INSULN.PEN 8 UNIT SC (17:36)
--- NOTE | 2025-01-21 19:13 | PC.NURSE ---
Resident is awake and alert, complaint not feeling well. Vital signs taken, elevated Temperature 102.5. Reported to charge nurse. Protocol for elevated temperature, given Tylenol, and started cooling measures. will continue to monitor.
[2025-01-21] MEDS: ATORVASTATIN 20 MG TABLET 40 MG GT (20:43)
[2025-01-21] MEDS: IBUPROFEN 100 MG/5 ML ORAL.SUSP 400 MG GT (21:24)
--- NOTE | 2025-01-21 21:37 | PD.SAPROG ---
Progress Note - SubAcute DIAGNOSIS (1) Chronic anoxic encephalopathy: Status: Chronic (2) Chronic respiratory failure: Status: Chronic (3) Ventilator dependent: Status: Chronic (4) Seizures: Status: Chronic (5) Essential hypertension: Status: Chronic (6) PEG (percutaneous endoscopic gastrostomy) status: Status: Chronic (7) Tracheostomy dependence: Status: Chronic (8) Clostridium difficile diarrhea: Status: Acute SUBJECTIVE Fever:: none Shortness of Breath:: none Pain:: none OBJECTIVE Most recent vital signs: Last Vital Signs Temp 101.5 F H 01/21/25 17:45 Pulse 108 H 01/21/25 18:49 Resp 37 H 01/21/25 18:49 BP 124/77 01/21/25 12:00 Pulse Ox 94 L 01/21/25 18:49 O2 Del Method Mechanical Ventilation 01/17/25 16:55 FiO2 35 01/21/25 18:49 Neurological:: eye tracking (some minimal appropriate response in gesture to simple command) Speech:: nods head Answers questions:: sometimes (gestures) Respiratory:: lungs clear Cardiovascular: RRR Abdomen: soft Extremities:: deformities Tracheostomy:: to ventilator Feeding per:: G tube Complaints:: none ASSESSMENT & PLAN Assessment: 69 yrs of age female being re-admitted to [facility] with Hypertension/hyperlipidemia/epilepsy, recently treated in acute care for UTI sepsis with and on Rocephin one gram daily iv x 4 days. chronic encephalopathy/ chronic respiratory failure/ Ventilator dependent/Trach and feeding G tube as before. VSS , no pain issues. Continued on Vancomycin for C. Diff. tolerating it well. Completed 4 weeks of vancomycin. No new issues. Occasional loose stool still .VSS. No pain. 01-21-25 Spiked fever, work up done. A week ago urine and sputum were negative for similar fever spike and was given Levaquin x4 days. Will wait for cultures.
[2025-01-22] VITALS (10 sets, daily range): BP systolic 93–127; BP diastolic 55–77; PULSE 86–93; RESP 18–33; TEMP 37.4–38.2; O2SAT 97–99
--- NOTE | 2025-01-22 00:15 | PC.NURSE ---
temp at midnight is 99.6 rectally , charge nurse is aware and will continue to monitor
[2025-01-22] MEDS: ACETAMINOPHEN 325 MG TABLET 650 MG GT ×2 (05:04→16:15)
[2025-01-22] MEDS: VALPROIC ACID 250 MG/5 ML 500 MG GT ×3 (05:22→21:28)
[2025-01-22] MEDS: ASCORBIC ACID 500 MG TABLET GT ×2 (08:40→20:28)
[2025-01-22] MEDS: ASPIRIN 81 MG TAB.CHEW GT (08:41)
[2025-01-22] MEDS: BUSPIRONE 10 MG TABLET GT ×2 (08:42→20:29)
[2025-01-22] MEDS: CHOLECALCIFEROL (VITAMIN D3) 25 MCG TABLET GT ×2 (08:44→20:30)
[2025-01-22] MEDS: ENOXAPARIN SODIUM 40 MG/0.4 ML SYRINGE SC (08:44)
[2025-01-22] MEDS: DEX/HYPRO/GLY ARTIFICAL TEARS 225 DROP/15 ML BTL BOTH EYES ×2 (08:44→20:30)
[2025-01-22] MEDS: FERROUS SULFATE 220 MG/5 ML ELIXIR 325 MG GT ×2 (08:45→20:31)
[2025-01-22] MEDS: SODIUM CHLORIDE TAB 1,000 MG TABLET.SOL 1000 MG GT (08:46)
[2025-01-22] MEDS: INSULIN GLARGINE 100 UNIT/ML INSULN.PEN 8 UNIT SC (17:12)
[2025-01-22] MEDS: ATORVASTATIN 20 MG TABLET 40 MG GT (20:29)
[2025-01-23] VITALS (8 sets, daily range): BP systolic 98–116; BP diastolic 58–76; PULSE 60–91; RESP 23–37; TEMP 35.8–36.5; O2SAT 97–98
[2025-01-23] MEDS: VALPROIC ACID 250 MG/5 ML 500 MG GT ×3 (05:10→21:15)
[2025-01-23] MEDS: ASPIRIN 81 MG TAB.CHEW GT (09:09)
[2025-01-23] MEDS: ASCORBIC ACID 500 MG TABLET GT ×2 (09:09→21:14)
[2025-01-23] MEDS: BUSPIRONE 10 MG TABLET GT ×2 (09:10→21:14)
[2025-01-23] MEDS: ENOXAPARIN SODIUM 40 MG/0.4 ML SYRINGE SC (09:11)
[2025-01-23] MEDS: CHOLECALCIFEROL (VITAMIN D3) 25 MCG TABLET GT ×2 (09:11→21:15)
[2025-01-23] MEDS: DEX/HYPRO/GLY ARTIFICAL TEARS 225 DROP/15 ML BTL BOTH EYES ×2 (09:11→21:15)
[2025-01-23] MEDS: FERROUS SULFATE 220 MG/5 ML ELIXIR 325 MG GT ×2 (09:12→21:15)
[2025-01-23] MEDS: SODIUM CHLORIDE TAB 1,000 MG TABLET.SOL 1000 MG GT (09:13)
--- NOTE | 2025-01-23 13:42 | PC.SS ---
Resident remains on vent with trach in place and GT for medication and nutrition. Resident is unable to make needs known, in home sales representative will continue to make all medical decisions for resident, she will continue to have all subacute care needs met by staff. In contact isolation.
--- NOTE | 2025-01-23 15:14 | PD.SAPROG ---
Progress Note - SubAcute DIAGNOSIS (1) Chronic anoxic encephalopathy: Status: Chronic (2) Chronic respiratory failure: Status: Chronic (3) Ventilator dependent: Status: Chronic (4) Seizures: Status: Chronic (5) Essential hypertension: Status: Chronic (6) PEG (percutaneous endoscopic gastrostomy) status: Status: Chronic (7) Tracheostomy dependence: Status: Chronic (8) Clostridium difficile diarrhea: Status: Acute SUBJECTIVE Fever:: none Shortness of Breath:: none Pain:: none OBJECTIVE Most recent vital signs: Last Vital Signs Temp 97.4 F 01/23/25 06:00 Pulse 86 01/23/25 12:55 Resp 23 H 01/23/25 06:42 BP 105/63 01/23/25 06:00 Pulse Ox 98 01/23/25 12:55 O2 Del Method Mechanical Ventilation 01/22/25 17:13 FiO2 35 01/23/25 12:55 Neurological:: eye tracking (some minimal appropriate response in gesture to simple command) Speech:: nods head Answers questions:: sometimes (gestures) Respiratory:: lungs clear Cardiovascular: RRR Abdomen: soft Extremities:: deformities Tracheostomy:: to ventilator Feeding per:: G tube Complaints:: none ASSESSMENT & PLAN Assessment: 69 yrs of age female being re-admitted to [facility] with Hypertension/hyperlipidemia/epilepsy, recently treated in acute care for UTI sepsis with and on Rocephin one gram daily iv x 4 days. chronic encephalopathy/ chronic respiratory failure/ Ventilator dependent/Trach and feeding G tube as before. VSS , no pain issues. Continued on Vancomycin for C. Diff. tolerating it well. Completed 4 weeks of vancomycin. No new issues. Occasional loose stool still .VSS. No pain. 01-21-25 Spiked fever, work up done. A week ago urine and sputum were negative for similar fever spike and was given Levaquin x4 days. Will wait for cultures. Pt is now afebrile
[2025-01-23] MEDS: INSULIN GLARGINE 100 UNIT/ML INSULN.PEN 8 UNIT SC (17:27)
[2025-01-23] MEDS: guaiFENesin Liq 100 MG/5 ML LIQUID 300 MG GT (17:28)
--- NOTE | 2025-01-23 18:38 | PC.NURSE ---
. made aware sputum culture received, . said it was colonization, no new order received.
[2025-01-23] MEDS: ATORVASTATIN 20 MG TABLET 40 MG GT (21:14)
[2025-01-24] VITALS (7 sets, daily range): BP systolic 95–118; BP diastolic 60–73; PULSE 65–87; RESP 20–34; TEMP 35.7–36.6; O2SAT 96–99
[2025-01-24] MEDS: VALPROIC ACID 250 MG/5 ML 500 MG GT ×3 (05:00→22:10)
[2025-01-24] MEDS: ASCORBIC ACID 500 MG TABLET GT ×2 (09:42→21:00)
[2025-01-24] MEDS: ASPIRIN 81 MG TAB.CHEW GT (09:43)
[2025-01-24] MEDS: BUSPIRONE 10 MG TABLET GT ×2 (09:44→21:01)
[2025-01-24] MEDS: DEX/HYPRO/GLY ARTIFICAL TEARS 225 DROP/15 ML BTL BOTH EYES ×2 (09:46→21:01)
[2025-01-24] MEDS: ENOXAPARIN SODIUM 40 MG/0.4 ML SYRINGE SC (09:46)
[2025-01-24] MEDS: FERROUS SULFATE 220 MG/5 ML ELIXIR 325 MG GT ×2 (09:46→21:01)
[2025-01-24] MEDS: CHOLECALCIFEROL (VITAMIN D3) 25 MCG TABLET GT ×2 (09:46→21:01)
[2025-01-24] MEDS: SODIUM CHLORIDE TAB 1,000 MG TABLET.SOL 1000 MG GT (09:47)
[2025-01-24] MEDS: INSULIN GLARGINE 100 UNIT/ML INSULN.PEN 8 UNIT SC (17:44)
[2025-01-24] MEDS: ATORVASTATIN 20 MG TABLET 40 MG GT (21:00)
[2025-01-25] VITALS (10 sets, daily range): BP systolic 90–134; BP diastolic 56–62; PULSE 73–86; RESP 20–33; TEMP 36.1–36.4; O2SAT 97–99
[2025-01-25] MEDS: VALPROIC ACID 250 MG/5 ML 500 MG GT ×3 (05:17→21:48)
[2025-01-25] MEDS: ASPIRIN 81 MG TAB.CHEW GT (09:09)
[2025-01-25] MEDS: ASCORBIC ACID 500 MG TABLET GT ×2 (09:09→21:43)
[2025-01-25] MEDS: BUSPIRONE 10 MG TABLET GT ×2 (09:09→21:44)
[2025-01-25] MEDS: CHOLECALCIFEROL (VITAMIN D3) 25 MCG TABLET GT ×2 (09:10→21:44)
[2025-01-25] MEDS: FERROUS SULFATE 220 MG/5 ML ELIXIR 325 MG GT ×2 (09:10→21:48)
[2025-01-25] MEDS: DEX/HYPRO/GLY ARTIFICAL TEARS 225 DROP/15 ML BTL BOTH EYES ×2 (09:10→21:44)
[2025-01-25] MEDS: ENOXAPARIN SODIUM 40 MG/0.4 ML SYRINGE SC (09:10)
[2025-01-25] MEDS: SODIUM CHLORIDE TAB 1,000 MG TABLET.SOL 1000 MG GT (09:11)
[2025-01-25 10:22] LABS: Alanine Aminotransferase 14 U/L (10-49); Albumin, Serum 3.7 gm/dL (3.4-4.8); Albumin/Globulin Ratio 1.5 (1.2-2.2); Alkaline Phosphatase 66 U/L (46-116); Anion Gap 9 (7-16); Aspartate Amino Transferase 28 U/L (0-34); BUN/Creatinine Ratio 27 Ratio (12-20); Bilirubin,Total 0.2 mg/dL (0.3-1.2); Blood Urea Nitrogen 16 mg/dL (9-23); Calcium 9.2 mg/dL (8.3-10.6); Calcium (Corrected) 9.4 mg/dL (8.5-10.1); Carbon Dioxide 33.5 mMol/L (20.0-31.0); Chloride 98 mMol/L (98-107); Creatinine (Component) 0.6 mg/dL (0.6-1.3); Estimated Creatinine Clearance 88.2 mL/min (>60); Globulin 2.5 gm/dL (2.3-3.5); Glucose 135 mg/dL (74-106); Glucose,Fasting 135 mg/dL (74-106); Osmolality,Calculated 282 (275-295); Potassium 4.5 mMol/L (3.4-5.1); Sodium 140 mMol/L (136-145); Total Protein 6.2 gm/dL (5.7-8.2); eGFR > 60 See Note
[2025-01-25 10:28] LABS: Basophils # (Auto) 0.1 Thou/mm3 (0.0-0.2); Basophils % (Auto) 0 % (0-2.5); Eosinophils # (Auto) 0.3 Thou/mm3 (0.0-0.5); Eosinophils % (Auto) 2 % (0-10); Hematocrit 21.7 % (36.0-46.0); Immature Granulocytes Auto 0.54 Thou/mm3 (0.00-0.00); Lymphocytes # (Auto) 2.6 Thou/mm3 (1.0-4.8); Lymphocytes % (Auto) 19 % (10-50); Mean Corpuscular HGB Conc 32.3 g/dl (31.0-37.0); Mean Corpuscular Hemoglobin 30.6 pg (25.0-35.0); Mean Corpuscular Volume 95 fL (80-100); Monocytes # (Auto) 2.4 Thou/mm3 (0.0-0.8); Monocytes % (Auto) 18 % (0-12); Neutrophils # (Auto) 7.6 Thou/mm3 (1.8-7.7); Neutrophils % (Auto) 57 % (37-80); Nucleated Red Blood Cell # 0.05 Thou/mm3 (0.00-0.00); Nucleated Red Blood Cell % 0 /100 WBC (0); Platelet Count 422 Thou/mm3 (140-440); RDW Standard Deviation 63.1 fL (36.4-46.3); Red Blood Count 2.29 Miln/mm3 (4.00-5.20); White Blood Count 13.3 Thou/mm3 (3.6-11.0)
[2025-01-25 10:36] LABS: Hemoglobin 7.0 g/dL (12.0-16.0)
[2025-01-25] MEDS: INSULIN GLARGINE 100 UNIT/ML INSULN.PEN 8 UNIT SC (17:35)
[2025-01-25] MEDS: ATORVASTATIN 20 MG TABLET 40 MG GT (21:44)
[2025-01-25] MEDS: guaiFENesin Liq 100 MG/5 ML LIQUID 300 MG GT (21:48)
[2025-01-26] VITALS (9 sets, daily range): BP systolic 94–138; BP diastolic 54–82; PULSE 64–86; RESP 23–38; TEMP 35.9–36.6; O2SAT 97–98
[2025-01-26] MEDS: VALPROIC ACID 250 MG/5 ML 500 MG GT ×3 (05:41→21:19)
[2025-01-26] MEDS: ASCORBIC ACID 500 MG TABLET GT ×2 (09:31→20:00)
[2025-01-26] MEDS: ASPIRIN 81 MG TAB.CHEW GT (09:32)
[2025-01-26] MEDS: CHOLECALCIFEROL (VITAMIN D3) 25 MCG TABLET GT ×2 (09:35→20:01)
[2025-01-26] MEDS: ENOXAPARIN SODIUM 40 MG/0.4 ML SYRINGE SC (09:36)
[2025-01-26] MEDS: DEX/HYPRO/GLY ARTIFICAL TEARS 225 DROP/15 ML BTL BOTH EYES ×2 (09:36→20:02)
[2025-01-26] MEDS: FERROUS SULFATE 220 MG/5 ML ELIXIR 325 MG GT ×2 (09:38→20:02)
[2025-01-26] MEDS: SODIUM CHLORIDE TAB 1,000 MG TABLET.SOL 1000 MG GT (09:39)
[2025-01-26] MEDS: BUSPIRONE 10 MG TABLET GT ×2 (10:34→20:01)
[2025-01-26] MEDS: INSULIN GLARGINE 100 UNIT/ML INSULN.PEN 8 UNIT SC (17:18)
[2025-01-26] MEDS: ATORVASTATIN 20 MG TABLET 40 MG GT (20:01)
[2025-01-27] VITALS (8 sets, daily range): BP systolic 104–151; BP diastolic 68–71; PULSE 67–88; RESP 23–968; TEMP 35.6–36.2; O2SAT 96–98
[2025-01-27] MEDS: VALPROIC ACID 250 MG/5 ML 500 MG GT ×3 (05:48→21:24)
[2025-01-27] MEDS: BUSPIRONE 10 MG TABLET GT ×2 (09:27→20:13)
[2025-01-27] MEDS: ASCORBIC ACID 500 MG TABLET GT ×2 (09:27→20:13)
[2025-01-27] MEDS: ASPIRIN 81 MG TAB.CHEW GT (09:27)
[2025-01-27] MEDS: CHOLECALCIFEROL (VITAMIN D3) 25 MCG TABLET GT ×2 (09:28→20:14)
[2025-01-27] MEDS: ENOXAPARIN SODIUM 40 MG/0.4 ML SYRINGE SC (09:28)
[2025-01-27] MEDS: DEX/HYPRO/GLY ARTIFICAL TEARS 225 DROP/15 ML BTL BOTH EYES ×2 (09:28→20:14)
[2025-01-27] MEDS: SODIUM CHLORIDE TAB 1,000 MG TABLET.SOL 1000 MG GT (09:30)
[2025-01-27] MEDS: FERROUS SULFATE 220 MG/5 ML ELIXIR 325 MG GT ×2 (09:30→20:14)
[2025-01-27] MEDS: INSULIN GLARGINE 100 UNIT/ML INSULN.PEN 8 UNIT SC (17:06)
[2025-01-27] MEDS: ATORVASTATIN 20 MG TABLET 40 MG GT (20:13)
[2025-01-28] VITALS (8 sets, daily range): BP systolic 98–140; BP diastolic 60–69; PULSE 62–87; RESP 21–32; TEMP 36–36.3; O2SAT 95–99
[2025-01-28] MEDS: VALPROIC ACID 250 MG/5 ML 500 MG GT ×3 (05:02→20:59)
[2025-01-28 06:47] LABS: Basophils # (Auto) 0.1 Thou/mm3 (0.0-0.2); Basophils % (Auto) 1 % (0-2.5); Eosinophils # (Auto) 0.4 Thou/mm3 (0.0-0.5); Eosinophils % (Auto) 3 % (0-10); Hematocrit 22.5 % (36.0-46.0); Immature Granulocytes Auto 0.88 Thou/mm3 (0.00-0.00); Lymphocytes # (Auto) 4.0 Thou/mm3 (1.0-4.8); Lymphocytes % (Auto) 24 % (10-50); Mean Corpuscular HGB Conc 31.6 g/dl (31.0-37.0); Mean Corpuscular Hemoglobin 30.7 pg (25.0-35.0); Mean Corpuscular Volume 97 fL (80-100); Monocytes # (Auto) 1.8 Thou/mm3 (0.0-0.8); Monocytes % (Auto) 11 % (0-12); Neutrophils # (Auto) 9.2 Thou/mm3 (1.8-7.7); Neutrophils % (Auto) 56 % (37-80); Nucleated Red Blood Cell # 0.06 Thou/mm3 (0.00-0.00); Nucleated Red Blood Cell % 0 /100 WBC (0); Platelet Count 428 Thou/mm3 (140-440); RDW Standard Deviation 65.5 fL (36.4-46.3); Red Blood Count 2.31 Miln/mm3 (4.00-5.20); White Blood Count 16.5 Thou/mm3 (3.6-11.0)
[2025-01-28 06:50] LABS: Hemoglobin 7.1 g/dL (12.0-16.0)
[2025-01-28] MEDS: ASCORBIC ACID 500 MG TABLET GT ×2 (09:08→20:24)
[2025-01-28] MEDS: ASPIRIN 81 MG TAB.CHEW GT (09:08)
[2025-01-28] MEDS: BUSPIRONE 10 MG TABLET GT ×2 (09:09→20:25)
[2025-01-28] MEDS: DEX/HYPRO/GLY ARTIFICAL TEARS 225 DROP/15 ML BTL BOTH EYES ×2 (09:10→20:25)
[2025-01-28] MEDS: CHOLECALCIFEROL (VITAMIN D3) 25 MCG TABLET GT ×2 (09:10→20:25)
[2025-01-28] MEDS: FERROUS SULFATE 220 MG/5 ML ELIXIR 325 MG GT ×2 (09:10→20:25)
[2025-01-28] MEDS: ENOXAPARIN SODIUM 40 MG/0.4 ML SYRINGE SC (09:10)
[2025-01-28] MEDS: SODIUM CHLORIDE TAB 1,000 MG TABLET.SOL 1000 MG GT (09:11)
--- NOTE | 2025-01-28 13:30 | PD.SAPROG ---
Progress Note - SubAcute DIAGNOSIS (1) Chronic anoxic encephalopathy: Status: Chronic (2) Chronic respiratory failure: Status: Chronic (3) Ventilator dependent: Status: Chronic (4) Seizures: Status: Chronic (5) Essential hypertension: Status: Chronic (6) PEG (percutaneous endoscopic gastrostomy) status: Status: Chronic (7) Tracheostomy dependence: Status: Chronic (8) Clostridium difficile diarrhea: Status: Acute SUBJECTIVE Fever:: none Shortness of Breath:: none Pain:: none OBJECTIVE Most recent vital signs: Last Vital Signs Temp 96.9 F 01/28/25 06:00 Pulse 66 01/28/25 07:15 Resp 26 H 01/28/25 07:15 BP 98/61 01/28/25 06:00 Pulse Ox 94 L 01/28/25 07:15 O2 Del Method Mechanical Ventilation 01/28/25 06:00 FiO2 35 01/28/25 07:15 Neurological:: eye tracking (some minimal appropriate response in gesture to simple command) Speech:: nods head Answers questions:: sometimes (gestures) Respiratory:: lungs clear Cardiovascular: RRR Abdomen: soft Extremities:: deformities Tracheostomy:: to ventilator Feeding per:: G tube Complaints:: none ASSESSMENT & PLAN Assessment: 69 yrs of age female being re-admitted to [facility] with Hypertension/hyperlipidemia/epilepsy, recently treated in acute care for UTI sepsis with and on Rocephin one gram daily iv x 4 days. chronic encephalopathy/ chronic respiratory failure/ Ventilator dependent/Trach and feeding G tube as before. VSS , no pain issues. Continued on Vancomycin for C. Diff. tolerating it well. Completed 4 weeks of vancomycin. No new issues. Occasional loose stool still .VSS. No pain. 01-21-25 Spiked fever, work up done. A week ago urine and sputum were negative for similar fever spike and was given Levaquin x4 days. Will wait for cultures. Pt is now afebrile
[2025-01-28] MEDS: INSULIN GLARGINE 100 UNIT/ML INSULN.PEN 8 UNIT SC (17:13)
[2025-01-28] MEDS: ATORVASTATIN 20 MG TABLET 40 MG GT (20:25)
[2025-01-29] VITALS (9 sets, daily range): BP systolic 97–107; BP diastolic 61–70; PULSE 65–88; RESP 22–32; TEMP 36–36.3; O2SAT 97–99
[2025-01-29] MEDS: VALPROIC ACID 250 MG/5 ML 500 MG GT ×3 (05:15→21:31)
--- NOTE | 2025-01-29 05:32 | PC.NURSE ---
Notified Dr Morris that labs results were available- F/U CBC he stated he would review the labs and call back with further orders
[2025-01-29] MEDS: ASPIRIN 81 MG TAB.CHEW GT (09:19)
[2025-01-29] MEDS: BUSPIRONE 10 MG TABLET GT ×2 (09:19→21:31)
[2025-01-29] MEDS: ENOXAPARIN SODIUM 40 MG/0.4 ML SYRINGE SC (09:20)
[2025-01-29] MEDS: DEX/HYPRO/GLY ARTIFICAL TEARS 225 DROP/15 ML BTL BOTH EYES ×2 (09:20→21:31)
[2025-01-29] MEDS: CHOLECALCIFEROL (VITAMIN D3) 25 MCG TABLET GT ×2 (09:20→21:31)
[2025-01-29] MEDS: SODIUM CHLORIDE TAB 1,000 MG TABLET.SOL 1000 MG GT (09:22)
--- NOTE | 2025-01-29 17:26 | PC.NURSE ---
Contacted Dr. Morris regarding resident's Lab report. specifically for further orders. Order to continue iron and vitamin C until he is able to see resident. No further orders given for CBC results. Stated he will see resident tomorrow night. Resident remains stable with no changes in vital signs. Will continue to monitor.
[2025-01-29] MEDS: INSULIN GLARGINE 100 UNIT/ML INSULN.PEN 8 UNIT SC (17:45)
--- NOTE | 2025-01-29 17:45 | PC.NURSE ---
Discussed with Doctor Silverio regarding Buspar Psychotropic medication, after reviewing no new orders given to increase or decrease medication at this time, resident remains stable still resistive to care at times. Will continue to monitor resident.
[2025-01-29] MEDS: ATORVASTATIN 20 MG TABLET 40 MG GT (21:31)
[2025-01-29] MEDS: ACETAMINOPHEN 325 MG TABLET 650 MG GT (21:32)
[2025-01-30] VITALS (10 sets, daily range): BP systolic 96–109; BP diastolic 60–68; PULSE 63–88; RESP 23–32; TEMP 36.2–36.3; O2SAT 96–98
[2025-01-30] MEDS: VALPROIC ACID 250 MG/5 ML 500 MG GT ×3 (05:51→21:36)
[2025-01-30] MEDS: BUSPIRONE 10 MG TABLET GT ×2 (08:45→20:14)
[2025-01-30] MEDS: ENOXAPARIN SODIUM 40 MG/0.4 ML SYRINGE SC (08:45)
[2025-01-30] MEDS: CHOLECALCIFEROL (VITAMIN D3) 25 MCG TABLET GT ×2 (08:47→20:16)
[2025-01-30] MEDS: FERROUS SULFATE 220 MG/5 ML ELIXIR 325 MG GT ×2 (08:47→20:16)
[2025-01-30] MEDS: ASPIRIN 81 MG TAB.CHEW GT (08:47)
[2025-01-30] MEDS: DEX/HYPRO/GLY ARTIFICAL TEARS 225 DROP/15 ML BTL BOTH EYES ×2 (08:47→20:16)
[2025-01-30] MEDS: ASCORBIC ACID 500 MG TABLET GT ×2 (08:47→20:16)
[2025-01-30] MEDS: SODIUM CHLORIDE TAB 1,000 MG TABLET.SOL 1000 MG GT (08:48)
[2025-01-30] MEDS: INSULIN GLARGINE 100 UNIT/ML INSULN.PEN 8 UNIT SC (17:48)
--- NOTE | 2025-01-30 20:11 | PD.IMPROG ---
Documentation for date of: 01/30/25 Subjective Subjective Interval history: Hemoglobin hematocrit 7.1 and 22.5 continue with the iron therapy Exam Vital Signs Temp Pulse Resp BP Pulse Ox O2 Del Method FiO2 97.3 F 82 23 H 108/68 98 Mechanical Ventilation 35 01/30/25 17:55 01/30/25 17:55 01/30/25 17:55 01/30/25 17:55 01/30/25 17:55 01/30/25 17:55 01/30/25 17:55 Objective Labs 02/10/25 10:33 01/25/25 09:16 Impressions Impression: Anemia of chronic disease continue iron therapy CBC in 2 weeks Assessment & Plan A&P Narrative # Chronic anemia with initially Hemoccult positive stool and Hemoccult negative in the setting of C. difficile enterocolitis Plan Hemoccult positive which is most likely due to enterocolitis caused by the C. difficile It has already turned negative No need for invasive GI workup at this moment Will recommend iron panel and iron saturation along with B12 folate level and reticulocyte count which I have ordered Will follow the patient Thank you once again for the opportunity to participate in the care of this patient Other medical problems include Anoxic encephalopathy requiring mechanical ventilation post tracheostomy as well as gastrostomy tube Essential hypertension Time Spent With Patient Time: Total time spent is greater than 50% in coordination of care (as documented) at patient's floor/unit and/or counseling patient:
[2025-01-30] MEDS: ATORVASTATIN 20 MG TABLET 40 MG GT (20:16)
[2025-01-31] VITALS (8 sets, daily range): BP systolic 92–161; BP diastolic 50–79; PULSE 56–90; RESP 22–30; TEMP 36–36.3; O2SAT 96–98
[2025-01-31] MEDS: VALPROIC ACID 250 MG/5 ML 500 MG GT ×3 (05:43→21:11)
--- NOTE | 2025-01-31 06:18 | PC.NURSE ---
Per Dr Morris's noted, resident is to continue with Iron therapy and repeat CBC on 02/13 to re-eval Hgb level of 7.1
[2025-01-31] MEDS: ASCORBIC ACID 500 MG TABLET GT ×2 (08:57→20:16)
[2025-01-31] MEDS: CHOLECALCIFEROL (VITAMIN D3) 25 MCG TABLET GT ×2 (08:57→20:18)
[2025-01-31] MEDS: ENOXAPARIN SODIUM 40 MG/0.4 ML SYRINGE SC (08:57)
[2025-01-31] MEDS: DEX/HYPRO/GLY ARTIFICAL TEARS 225 DROP/15 ML BTL BOTH EYES ×2 (08:57→20:19)
[2025-01-31] MEDS: ASPIRIN 81 MG TAB.CHEW GT (08:57)
[2025-01-31] MEDS: BUSPIRONE 10 MG TABLET GT ×2 (08:57→20:16)
[2025-01-31] MEDS: FERROUS SULFATE 220 MG/5 ML ELIXIR 325 MG GT ×2 (08:58→20:19)
[2025-01-31] MEDS: SODIUM CHLORIDE TAB 1,000 MG TABLET.SOL 1000 MG GT (08:58)
[2025-01-31] MEDS: INSULIN GLARGINE 100 UNIT/ML INSULN.PEN 8 UNIT SC (17:28)
[2025-01-31] MEDS: ACETAMINOPHEN 325 MG TABLET 650 MG GT (20:15)
[2025-01-31] MEDS: ATORVASTATIN 20 MG TABLET 40 MG GT (20:18)
[2025-02-01] VITALS (8 sets, daily range): BP systolic 93–118; BP diastolic 57–71; PULSE 64–84; RESP 24–32; TEMP 35.9–36.6; O2SAT 97–100
[2025-02-01] MEDS: VALPROIC ACID 250 MG/5 ML 500 MG GT ×3 (05:34→21:04)
[2025-02-01] MEDS: ENOXAPARIN SODIUM 40 MG/0.4 ML SYRINGE SC (08:44)
[2025-02-01] MEDS: BUSPIRONE 10 MG TABLET GT ×2 (09:16→20:46)
[2025-02-01] MEDS: CHOLECALCIFEROL (VITAMIN D3) 25 MCG TABLET GT ×2 (09:16→20:47)
[2025-02-01] MEDS: DEX/HYPRO/GLY ARTIFICAL TEARS 225 DROP/15 ML BTL BOTH EYES ×2 (09:16→20:48)
[2025-02-01] MEDS: ASCORBIC ACID 500 MG TABLET GT ×2 (09:16→20:46)
[2025-02-01] MEDS: ASPIRIN 81 MG TAB.CHEW GT (09:16)
[2025-02-01] MEDS: SODIUM CHLORIDE TAB 1,000 MG TABLET.SOL 1000 MG GT (09:17)
[2025-02-01] MEDS: FERROUS SULFATE 220 MG/5 ML ELIXIR 325 MG GT ×2 (09:17→20:48)
[2025-02-01] MEDS: ACETAMINOPHEN 325 MG TABLET 650 MG GT (09:17)
[2025-02-01] MEDS: INSULIN GLARGINE 100 UNIT/ML INSULN.PEN 8 UNIT SC (17:34)
--- NOTE | 2025-02-01 20:43 | ESPR_ITS ---
Progress Note - SubAcute DIAGNOSIS (1) Chronic anoxic encephalopathy: Status: Chronic (2) Chronic respiratory failure: Status: Chronic (3) Ventilator dependent: Status: Chronic (4) Seizures: Status: Chronic (5) Essential hypertension: Status: Chronic (6) PEG (percutaneous endoscopic gastrostomy) status: Status: Chronic (7) Tracheostomy dependence: Status: Chronic (8) Clostridium difficile diarrhea: Status: Acute SUBJECTIVE Fever:: none Shortness of Breath:: none Pain:: none OBJECTIVE Most recent vital signs: Last Vital Signs Temp 96.7 F L 02/01/25 17:03 Pulse 70 02/01/25 18:58 Resp 32 H 02/01/25 18:58 BP 118/71 02/01/25 17:03 Pulse Ox 99 02/01/25 18:58 O2 Del Method Mechanical Ventilation 02/01/25 17:03 FiO2 35 02/01/25 18:58 Neurological:: eye tracking (some minimal appropriate response in gesture to simple command) Speech:: nods head Answers questions:: sometimes (gestures) Respiratory:: lungs clear Cardiovascular: RRR Abdomen: soft Extremities:: deformities Tracheostomy:: to ventilator Feeding per:: G tube Complaints:: none ASSESSMENT & PLAN Assessment: 69 yrs of age female being re-admitted to [facility] with Hypertension/hyperlipidemia/epilepsy, recently treated in acute care for UTI sepsis with and on Rocephin one gram daily iv x 4 days. chronic encephalopathy/ chronic respiratory failure/ Ventilator dependent/Trach and feeding G tube as before. VSS , no pain issues. Continued on Vancomycin for C. Diff. tolerating it well. Completed 4 weeks of vancomycin. No new issues. Occasional loose stool still .VSS. No pain. 01-21-25 Spiked fever, work up done. A week ago urine and sputum were negative for similar fever spike and was given Levaquin x4 days. Will wait for cultures. Pt is now afebrile No new work up . stable status. VSS
[2025-02-01] MEDS: ATORVASTATIN 20 MG TABLET 40 MG GT (20:46)
[2025-02-02] VITALS (8 sets, daily range): BP systolic 99–108; BP diastolic 61–73; PULSE 62–88; RESP 23–29; TEMP 35.8–36.1; O2SAT 98–100
[2025-02-02] MEDS: VALPROIC ACID 250 MG/5 ML 500 MG GT ×3 (05:09→21:15)
[2025-02-02] MEDS: CHOLECALCIFEROL (VITAMIN D3) 25 MCG TABLET GT ×2 (09:00→20:29)
[2025-02-02] MEDS: ENOXAPARIN SODIUM 40 MG/0.4 ML SYRINGE SC (09:03)
[2025-02-02] MEDS: ASCORBIC ACID 500 MG TABLET GT ×2 (09:03→20:28)
[2025-02-02] MEDS: DEX/HYPRO/GLY ARTIFICAL TEARS 225 DROP/15 ML BTL BOTH EYES ×2 (09:03→20:29)
[2025-02-02] MEDS: ASPIRIN 81 MG TAB.CHEW GT (09:04)
[2025-02-02] MEDS: BUSPIRONE 10 MG TABLET GT ×2 (09:04→20:28)
[2025-02-02] MEDS: FERROUS SULFATE 220 MG/5 ML ELIXIR 325 MG GT ×2 (09:04→20:29)
[2025-02-02] MEDS: SODIUM CHLORIDE TAB 1,000 MG TABLET.SOL 1000 MG GT (09:04)
[2025-02-02] MEDS: INSULIN GLARGINE 100 UNIT/ML INSULN.PEN 8 UNIT SC (17:40)
[2025-02-02] MEDS: ATORVASTATIN 20 MG TABLET 40 MG GT (20:28)
[2025-02-03] VITALS: BP 108/67; PULSE 67; RESP 30; TEMP 36.4
[2025-02-03 01:38] VITALS: PULSE 78; RESP 23; O2SAT 99
[2025-02-03] MEDS: VALPROIC ACID 250 MG/5 ML 500 MG GT ×3 (05:02→21:07)
[2025-02-03 06:00] VITALS: BP 97/61; PULSE 65; RESP 24; TEMP 36.5; O2SAT 97
[2025-02-03 06:54] VITALS: PULSE 68; RESP 23; RESP 30; O2SAT 95
[2025-02-03] MEDS: ASCORBIC ACID 500 MG TABLET GT ×2 (08:52→20:02)
[2025-02-03] MEDS: ENOXAPARIN SODIUM 40 MG/0.4 ML SYRINGE SC (08:53)
[2025-02-03] MEDS: DEX/HYPRO/GLY ARTIFICAL TEARS 225 DROP/15 ML BTL BOTH EYES ×2 (08:53→20:02)
[2025-02-03] MEDS: ASPIRIN 81 MG TAB.CHEW GT (08:53)
[2025-02-03] MEDS: BUSPIRONE 10 MG TABLET GT ×2 (08:53→20:02)
[2025-02-03] MEDS: CHOLECALCIFEROL (VITAMIN D3) 25 MCG TABLET GT ×2 (08:53→20:02)
[2025-02-03] MEDS: SODIUM CHLORIDE TAB 1,000 MG TABLET.SOL 1000 MG GT (08:54)
[2025-02-03] MEDS: FERROUS SULFATE 220 MG/5 ML ELIXIR 325 MG GT ×2 (08:54→20:02)
[2025-02-03] MEDS: ACETAMINOPHEN 325 MG TABLET 650 MG GT (08:54)
--- NOTE | 2025-02-03 11:48 | PC.SS ---
Resident remains on vent with trach in place and GT for medication and nutrition. Resident is unable to make needs known, area representative will continue to make all medical decisions for resident, she will continue to have all subacute care needs met by staff. In contact isolation.
[2025-02-03 12:55] VITALS: PULSE 70; RESP 26; O2SAT 96
[2025-02-03] MEDS: INSULIN GLARGINE 100 UNIT/ML INSULN.PEN 8 UNIT SC (17:42)
[2025-02-03 18:18] VITALS: PULSE 65; RESP 25; O2SAT 97
[2025-02-03] MEDS: ATORVASTATIN 20 MG TABLET 40 MG GT (20:02)
[2025-02-04] VITALS (7 sets, daily range): BP systolic 104–149; BP diastolic 68–74; PULSE 62–82; RESP 24–37; TEMP 36.2; O2SAT 97–99
[2025-02-04] MEDS: VALPROIC ACID 250 MG/5 ML 500 MG GT ×3 (05:07→21:03)
[2025-02-04] MEDS: BUSPIRONE 10 MG TABLET GT ×2 (09:10→20:02)
[2025-02-04] MEDS: ASPIRIN 81 MG TAB.CHEW GT (09:10)
[2025-02-04] MEDS: ASCORBIC ACID 500 MG TABLET GT ×2 (09:10→20:02)
[2025-02-04] MEDS: ENOXAPARIN SODIUM 40 MG/0.4 ML SYRINGE SC (09:11)
[2025-02-04] MEDS: DEX/HYPRO/GLY ARTIFICAL TEARS 225 DROP/15 ML BTL BOTH EYES ×2 (09:11→20:03)
[2025-02-04] MEDS: CHOLECALCIFEROL (VITAMIN D3) 25 MCG TABLET GT ×2 (09:11→20:02)
[2025-02-04] MEDS: FERROUS SULFATE 220 MG/5 ML ELIXIR 325 MG GT ×2 (09:11→20:03)
[2025-02-04] MEDS: SODIUM CHLORIDE TAB 1,000 MG TABLET.SOL 1000 MG GT (09:12)
[2025-02-04] MEDS: INSULIN GLARGINE 100 UNIT/ML INSULN.PEN 8 UNIT SC (17:08)
[2025-02-04] MEDS: ATORVASTATIN 20 MG TABLET 40 MG GT (20:02)
[2025-02-05] VITALS (8 sets, daily range): BP systolic 94–117; BP diastolic 56–71; PULSE 62–90; RESP 18–33; TEMP 36.1–36.5; O2SAT 98–100
[2025-02-05] MEDS: VALPROIC ACID 250 MG/5 ML 500 MG GT ×3 (05:05→21:34)
[2025-02-05] MEDS: ASCORBIC ACID 500 MG TABLET GT ×2 (09:00→21:30)
[2025-02-05] MEDS: ASPIRIN 81 MG TAB.CHEW GT (09:01)
[2025-02-05] MEDS: BUSPIRONE 10 MG TABLET GT ×2 (09:01→21:34)
[2025-02-05] MEDS: CHOLECALCIFEROL (VITAMIN D3) 25 MCG TABLET GT ×2 (09:02→21:34)
[2025-02-05] MEDS: DEX/HYPRO/GLY ARTIFICAL TEARS 225 DROP/15 ML BTL BOTH EYES ×2 (09:02→21:34)
[2025-02-05] MEDS: ENOXAPARIN SODIUM 40 MG/0.4 ML SYRINGE SC (09:02)
[2025-02-05] MEDS: FERROUS SULFATE 220 MG/5 ML ELIXIR 325 MG GT ×2 (09:03→21:34)
[2025-02-05] MEDS: SODIUM CHLORIDE TAB 1,000 MG TABLET.SOL 1000 MG GT (09:04)
[2025-02-05] MEDS: INSULIN GLARGINE 100 UNIT/ML INSULN.PEN 8 UNIT SC (17:03)
--- NOTE | 2025-02-05 20:47 | ESPR_ITS ---
Progress Note - SubAcute DIAGNOSIS (1) Chronic anoxic encephalopathy: Status: Chronic (2) Chronic respiratory failure: Status: Chronic (3) Ventilator dependent: Status: Chronic (4) Seizures: Status: Chronic (5) Essential hypertension: Status: Chronic (6) PEG (percutaneous endoscopic gastrostomy) status: Status: Chronic (7) Tracheostomy dependence: Status: Chronic (8) Clostridium difficile diarrhea: Status: Acute SUBJECTIVE Fever:: none Shortness of Breath:: none Pain:: none OBJECTIVE Most recent vital signs: Last Vital Signs Temp 96.9 F 02/05/25 14:45 Pulse 87 02/05/25 14:45 Resp 31 H 02/05/25 14:45 BP 104/69 02/05/25 14:45 Pulse Ox 98 02/05/25 13:03 O2 Del Method Mechanical Ventilation 02/02/25 06:00 FiO2 30 02/05/25 13:03 Neurological:: eye tracking (some minimal appropriate response in gesture to simple command) Speech:: nods head Answers questions:: sometimes (gestures) Respiratory:: lungs clear Cardiovascular: RRR Abdomen: soft Extremities:: deformities Tracheostomy:: to ventilator Feeding per:: G tube Complaints:: none ASSESSMENT & PLAN Assessment: 69 yrs of age female being re-admitted to [facility] with Hypertension/hyperlipidemia/epilepsy, recently treated in acute care for UTI sepsis with and on Rocephin one gram daily iv x 4 days. chronic encephalopathy/ chronic respiratory failure/ Ventilator dependent/Trach and feeding G tube as before. VSS , no pain issues. Continued on Vancomycin for C. Diff. tolerating it well. Completed 4 weeks of vancomycin. No new issues. Occasional loose stool still .VSS. No pain. 01-21-25 Spiked fever, work up done. A week ago urine and sputum were negative for similar fever spike and was given Levaquin x4 days. Will wait for cultures. Pt is now afebrile No new work up . stable status. VSS
[2025-02-05] MEDS: ATORVASTATIN 20 MG TABLET 40 MG GT (21:33)
[2025-02-06] VITALS (9 sets, daily range): BP systolic 90–102; BP diastolic 53–65; PULSE 61–79; RESP 22–34; TEMP 35.8–36.1; O2SAT 95–100
[2025-02-06] MEDS: VALPROIC ACID 250 MG/5 ML 500 MG GT ×3 (05:07→21:11)
[2025-02-06] MEDS: ASCORBIC ACID 500 MG TABLET GT ×2 (08:22→20:06)
[2025-02-06] MEDS: ASPIRIN 81 MG TAB.CHEW GT (08:22)
[2025-02-06] MEDS: BUSPIRONE 10 MG TABLET GT ×2 (08:22→20:08)
[2025-02-06] MEDS: CHOLECALCIFEROL (VITAMIN D3) 25 MCG TABLET GT ×2 (08:23→20:08)
[2025-02-06] MEDS: DEX/HYPRO/GLY ARTIFICAL TEARS 225 DROP/15 ML BTL BOTH EYES ×2 (08:23→20:08)
[2025-02-06] MEDS: FERROUS SULFATE 220 MG/5 ML ELIXIR 325 MG GT ×2 (08:24→20:08)
[2025-02-06] MEDS: ENOXAPARIN SODIUM 40 MG/0.4 ML SYRINGE SC (08:24)
[2025-02-06] MEDS: SODIUM CHLORIDE TAB 1,000 MG TABLET.SOL 1000 MG GT (08:24)
[2025-02-06] MEDS: INSULIN GLARGINE 100 UNIT/ML INSULN.PEN 8 UNIT SC (17:44)
[2025-02-06] MEDS: ATORVASTATIN 20 MG TABLET 40 MG GT (20:08)
[2025-02-06] MEDS: ACETAMINOPHEN 325 MG TABLET 650 MG GT (20:08)
[2025-02-06] MEDS: guaiFENesin Liq 100 MG/5 ML LIQUID 300 MG GT (20:09)
[2025-02-07] VITALS (8 sets, daily range): BP systolic 90–109; BP diastolic 53–72; PULSE 66–83; RESP 24–33; TEMP 36.1–36.3; O2SAT 98–100
[2025-02-07] MEDS: VALPROIC ACID 250 MG/5 ML 500 MG GT ×3 (05:05→21:12)
[2025-02-07] MEDS: ASCORBIC ACID 500 MG TABLET GT ×2 (08:17→21:06)
[2025-02-07] MEDS: BUSPIRONE 10 MG TABLET GT ×2 (08:17→21:06)
[2025-02-07] MEDS: ASPIRIN 81 MG TAB.CHEW GT (08:18)
[2025-02-07] MEDS: CHOLECALCIFEROL (VITAMIN D3) 25 MCG TABLET GT ×2 (08:18→21:07)
[2025-02-07] MEDS: DEX/HYPRO/GLY ARTIFICAL TEARS 225 DROP/15 ML BTL BOTH EYES ×2 (08:19→21:09)
[2025-02-07] MEDS: FERROUS SULFATE 220 MG/5 ML ELIXIR 325 MG GT ×2 (08:20→21:09)
[2025-02-07] MEDS: SODIUM CHLORIDE TAB 1,000 MG TABLET.SOL 1000 MG GT (08:21)
[2025-02-07] MEDS: ENOXAPARIN SODIUM 40 MG/0.4 ML SYRINGE SC (08:21)
--- NOTE | 2025-02-07 14:01 | PC.SS ---
Resident remains on vent with trach in place and GT for medication and nutrition. Resident is unable to make needs known, telemarketing representative will continue to make all medical decisions for resident, she will continue to have all subacute care needs met by staff. In contact isolation.
[2025-02-07] MEDS: INSULIN GLARGINE 100 UNIT/ML INSULN.PEN 8 UNIT SC (17:29)
[2025-02-07] MEDS: ATORVASTATIN 20 MG TABLET 40 MG GT (21:07)
[2025-02-07] MEDS: ACETAMINOPHEN 325 MG TABLET 650 MG GT (23:13)
[2025-02-08] VITALS (8 sets, daily range): BP systolic 100–111; BP diastolic 59–70; PULSE 62–84; RESP 27–33; TEMP 36–36.3; O2SAT 96–98
[2025-02-08] MEDS: VALPROIC ACID 250 MG/5 ML 500 MG GT ×3 (05:01→21:17)
[2025-02-08] MEDS: BUSPIRONE 10 MG TABLET GT ×2 (09:18→20:40)
[2025-02-08] MEDS: ASCORBIC ACID 500 MG TABLET GT ×2 (09:19→20:40)
[2025-02-08] MEDS: ASPIRIN 81 MG TAB.CHEW GT (09:20)
[2025-02-08] MEDS: CHOLECALCIFEROL (VITAMIN D3) 25 MCG TABLET GT ×2 (09:20→20:41)
[2025-02-08] MEDS: DEX/HYPRO/GLY ARTIFICAL TEARS 225 DROP/15 ML BTL BOTH EYES ×2 (09:20→20:42)
[2025-02-08] MEDS: FERROUS SULFATE 220 MG/5 ML ELIXIR 325 MG GT ×2 (09:20→20:42)
[2025-02-08] MEDS: ENOXAPARIN SODIUM 40 MG/0.4 ML SYRINGE SC (09:20)
[2025-02-08] MEDS: SODIUM CHLORIDE TAB 1,000 MG TABLET.SOL 1000 MG GT (09:20)
[2025-02-08] MEDS: INSULIN GLARGINE 100 UNIT/ML INSULN.PEN 8 UNIT SC (17:16)
[2025-02-08] MEDS: ATORVASTATIN 20 MG TABLET 40 MG GT (20:41)
[2025-02-09] VITALS (8 sets, daily range): BP systolic 95–130; BP diastolic 60–77; PULSE 68–100; RESP 22–35; TEMP 36.1–36.6; O2SAT 95–98
[2025-02-09] MEDS: VALPROIC ACID 250 MG/5 ML 500 MG GT ×2 (05:24→21:07)
[2025-02-09] MEDS: BUSPIRONE 10 MG TABLET GT ×2 (09:02→20:44)
[2025-02-09] MEDS: ASPIRIN 81 MG TAB.CHEW GT (09:02)
[2025-02-09] MEDS: ASCORBIC ACID 500 MG TABLET GT ×2 (09:02→21:07)
[2025-02-09] MEDS: CHOLECALCIFEROL (VITAMIN D3) 25 MCG TABLET GT ×2 (09:04→20:46)
[2025-02-09] MEDS: ENOXAPARIN SODIUM 40 MG/0.4 ML SYRINGE SC (09:04)
[2025-02-09] MEDS: FERROUS SULFATE 220 MG/5 ML ELIXIR 325 MG GT ×2 (09:04→20:47)
[2025-02-09] MEDS: DEX/HYPRO/GLY ARTIFICAL TEARS 225 DROP/15 ML BTL BOTH EYES ×2 (09:04→09:06)
[2025-02-09] MEDS: SODIUM CHLORIDE TAB 1,000 MG TABLET.SOL 1000 MG GT (09:05)
[2025-02-09] MEDS: INSULIN GLARGINE 100 UNIT/ML INSULN.PEN 8 UNIT SC (17:56)
[2025-02-09] MEDS: ATORVASTATIN 20 MG TABLET 40 MG GT (20:46)
--- NOTE | 2025-02-09 22:38 | PD.SAPROG ---
Progress Note - SubAcute DIAGNOSIS (1) Chronic anoxic encephalopathy: Status: Chronic (2) Chronic respiratory failure: Status: Chronic (3) Ventilator dependent: Status: Chronic (4) Seizures: Status: Chronic (5) Essential hypertension: Status: Chronic (6) PEG (percutaneous endoscopic gastrostomy) status: Status: Chronic (7) Tracheostomy dependence: Status: Chronic (8) Clostridium difficile diarrhea: Status: Acute SUBJECTIVE Fever:: none Shortness of Breath:: none Pain:: none OBJECTIVE Most recent vital signs: Last Vital Signs Temp 97.2 F 02/09/25 22:00 Pulse 82 02/09/25 22:00 Resp 35 H 02/09/25 22:00 BP 130/77 02/09/25 22:00 Pulse Ox 95 02/09/25 20:42 O2 Del Method Mechanical Ventilation 02/08/25 17:01 FiO2 30 02/09/25 22:00 Neurological:: eye tracking (some minimal appropriate response in gesture to simple command) Speech:: nods head Answers questions:: sometimes (gestures) Respiratory:: lungs clear Cardiovascular: RRR Abdomen: soft Extremities:: deformities Tracheostomy:: to ventilator Feeding per:: G tube Complaints:: none ASSESSMENT & PLAN Assessment: 69 yrs of age female being re-admitted to [facility] with Hypertension/hyperlipidemia/epilepsy, recently treated in acute care for UTI sepsis with and on Rocephin one gram daily iv x 4 days. chronic encephalopathy/ chronic respiratory failure/ Ventilator dependent/Trach and feeding G tube as before. VSS , no pain issues. Continued on Vancomycin for C. Diff. tolerating it well. Completed 4 weeks of vancomycin. No new issues. Occasional loose stool still .VSS. No pain. 01-21-25 Spiked fever, work up done. A week ago urine and sputum were negative for similar fever spike and was given Levaquin x4 days. Will wait for cultures. Pt is now afebrile No new work up . stable status. VSS
[2025-02-09] MEDS: ACETAMINOPHEN 325 MG TABLET 650 MG GT (23:21)
[2025-02-10] VITALS (10 sets, daily range): BP systolic 94–118; BP diastolic 67–72; PULSE 80–98; RESP 29–36; TEMP 36.1–38.4; O2SAT 97–100
[2025-02-10] MEDS: VALPROIC ACID 250 MG/5 ML 500 MG GT ×3 (05:05→21:20)
[2025-02-10] MEDS: ASPIRIN 81 MG TAB.CHEW GT (09:00)
[2025-02-10] MEDS: ASCORBIC ACID 500 MG TABLET GT ×2 (09:00→20:16)
[2025-02-10] MEDS: BUSPIRONE 10 MG TABLET GT ×2 (09:00→20:17)
[2025-02-10] MEDS: ENOXAPARIN SODIUM 40 MG/0.4 ML SYRINGE SC (09:01)
[2025-02-10] MEDS: CHOLECALCIFEROL (VITAMIN D3) 25 MCG TABLET GT ×2 (09:01→20:17)
[2025-02-10] MEDS: FERROUS SULFATE 220 MG/5 ML ELIXIR 325 MG GT ×2 (09:01→20:18)
[2025-02-10] MEDS: DEX/HYPRO/GLY ARTIFICAL TEARS 225 DROP/15 ML BTL BOTH EYES ×2 (09:01→20:18)
[2025-02-10] MEDS: SODIUM CHLORIDE TAB 1,000 MG TABLET.SOL 1000 MG GT (09:01)
[2025-02-10] MEDS: ACETAMINOPHEN 325 MG TABLET 650 MG GT (09:02)
[2025-02-10 09:20] LABS: COVID-19 Antigen (In-House) Negative (Negative); Influenza A Ag Negative; Influenza B Ag Negative
[2025-02-10 10:53] LABS: Basophils # (Auto) 0.1 Thou/mm3 (0.0-0.2); Basophils % (Auto) 1 % (0-2.5); Eosinophils # (Auto) 0.2 Thou/mm3 (0.0-0.5); Eosinophils % (Auto) 3 % (0-10); Hematocrit 23.4 % (36.0-46.0); Immature Granulocytes Auto 0.19 Thou/mm3 (0.00-0.00); Lymphocytes # (Auto) 1.5 Thou/mm3 (1.0-4.8); Lymphocytes % (Auto) 17 % (10-50); Mean Corpuscular HGB Conc 32.1 g/dl (31.0-37.0); Mean Corpuscular Hemoglobin 30.6 pg (25.0-35.0); Mean Corpuscular Volume 96 fL (80-100); Monocytes # (Auto) 1.5 Thou/mm3 (0.0-0.8); Monocytes % (Auto) 18 % (0-12); Neutrophils # (Auto) 5.0 Thou/mm3 (1.8-7.7); Neutrophils % (Auto) 59 % (37-80); Nucleated Red Blood Cell # 0.00 Thou/mm3 (0.00-0.00); Nucleated Red Blood Cell % 0 /100 WBC (0); Platelet Count 277 Thou/mm3 (140-440); RDW Standard Deviation 60.1 fL (36.4-46.3); Red Blood Count 2.45 Miln/mm3 (4.00-5.20); White Blood Count 8.5 Thou/mm3 (3.6-11.0)
[2025-02-10 10:55] LABS: Collection Type, Urine Catheter; Squamous Epithelial Cell,Urine 0 /hpf (0-5)
[2025-02-10 11:05] LABS: Hemoglobin 7.5 g/dL (12.0-16.0)
[2025-02-10 11:06] LABS: Procalcitonin 0.11 ng/ml (0.0-0.49)
[2025-02-10 11:53] LABS: Bilirubin,Urine Negative (Negative); Blood,Urine Trace (Negative); Clarity,Urine Clear (Clear/Hazy); Color,Urine Lt-Yellow (Lt Yel-Yel); Culture Indicated,Urine Not Indicated; Glucose, Urine Negative (Negative); Ketones,Urine Negative (Negative); Leukocyte Esterase,Urine Negative (Negative); Nitrite,Urine Negative (Negative); PH,Urine 7.5 (5.0-7.0); Protein,Urine Trace (Neg - Trace); RBC,Urine 12 /hpf (0-3); Specific Gravity,Urine 1.011 (1.001-1.035); Urobilinogen,Urine Negative mg/dL (0.0-1.0); WBC,Urine 1 /hpf (0-5)
[2025-02-10] MEDS: INSULIN GLARGINE 100 UNIT/ML INSULN.PEN 8 UNIT SC (17:46)
[2025-02-10] MEDS: ATORVASTATIN 20 MG TABLET 40 MG GT (20:17)
[2025-02-11] VITALS (8 sets, daily range): BP systolic 104–118; BP diastolic 64–70; PULSE 74–89; RESP 24–32; TEMP 35.8–36.4; O2SAT 97–99
[2025-02-11] MEDS: VALPROIC ACID 250 MG/5 ML 500 MG GT ×3 (05:06→21:17)
[2025-02-11] MEDS: ENOXAPARIN SODIUM 40 MG/0.4 ML SYRINGE SC (09:35)
[2025-02-11] MEDS: ASCORBIC ACID 500 MG TABLET GT ×2 (09:57→21:19)
[2025-02-11] MEDS: BUSPIRONE 10 MG TABLET GT ×2 (09:58→21:20)
[2025-02-11] MEDS: DEX/HYPRO/GLY ARTIFICAL TEARS 225 DROP/15 ML BTL BOTH EYES ×2 (09:58→21:20)
[2025-02-11] MEDS: FERROUS SULFATE 220 MG/5 ML ELIXIR 325 MG GT ×2 (09:58→21:20)
[2025-02-11] MEDS: CHOLECALCIFEROL (VITAMIN D3) 25 MCG TABLET GT ×2 (09:58→21:20)
[2025-02-11] MEDS: SODIUM CHLORIDE TAB 1,000 MG TABLET.SOL 1000 MG GT (09:58)
[2025-02-11] MEDS: ASPIRIN 81 MG TAB.CHEW GT (09:58)
[2025-02-11] MEDS: ACETAMINOPHEN 325 MG TABLET 650 MG GT ×2 (10:00→21:10)
[2025-02-11] MEDS: INSULIN GLARGINE 100 UNIT/ML INSULN.PEN 8 UNIT SC (17:42)
[2025-02-11] MEDS: ATORVASTATIN 20 MG TABLET 40 MG GT (21:19)
[2025-02-12] VITALS (8 sets, daily range): BP systolic 95–110; BP diastolic 63–71; PULSE 59–77; RESP 23–35; TEMP 35.9–36.6; O2SAT 98–99
[2025-02-12] MEDS: VALPROIC ACID 250 MG/5 ML 500 MG GT ×3 (05:12→21:20)
[2025-02-12] MEDS: ASPIRIN 81 MG TAB.CHEW GT (10:03)
[2025-02-12] MEDS: ASCORBIC ACID 500 MG TABLET GT ×2 (10:03→21:20)
[2025-02-12] MEDS: BUSPIRONE 10 MG TABLET GT ×2 (10:04→21:21)
[2025-02-12] MEDS: CHOLECALCIFEROL (VITAMIN D3) 25 MCG TABLET GT ×2 (10:05→21:21)
[2025-02-12] MEDS: DEX/HYPRO/GLY ARTIFICAL TEARS 225 DROP/15 ML BTL BOTH EYES ×2 (10:05→21:21)
[2025-02-12] MEDS: ENOXAPARIN SODIUM 40 MG/0.4 ML SYRINGE SC (10:05)
[2025-02-12] MEDS: FERROUS SULFATE 220 MG/5 ML ELIXIR 325 MG GT ×2 (10:05→21:21)
[2025-02-12] MEDS: SODIUM CHLORIDE TAB 1,000 MG TABLET.SOL 1000 MG GT (10:06)
[2025-02-12] MEDS: INSULIN GLARGINE 100 UNIT/ML INSULN.PEN 8 UNIT SC (17:07)
[2025-02-12] MEDS: ATORVASTATIN 20 MG TABLET 40 MG GT (21:20)
[2025-02-13] VITALS (8 sets, daily range): BP systolic 104–115; BP diastolic 64–77; PULSE 70–94; RESP 22–36; TEMP 36–36.7; O2SAT 97–99
[2025-02-13] MEDS: VALPROIC ACID 250 MG/5 ML 500 MG GT ×3 (05:31→21:13)
[2025-02-13 06:41] LABS: Basophils # (Auto) 0.1 Thou/mm3 (0.0-0.2); Basophils % (Auto) 1 % (0-2.5); Eosinophils # (Auto) 0.8 Thou/mm3 (0.0-0.5); Eosinophils % (Auto) 6 % (0-10); Hematocrit 24.1 % (36.0-46.0); Immature Granulocytes Auto 0.50 Thou/mm3 (0.00-0.00); Lymphocytes # (Auto) 3.2 Thou/mm3 (1.0-4.8); Lymphocytes % (Auto) 25 % (10-50); Mean Corpuscular HGB Conc 31.5 g/dl (31.0-37.0); Mean Corpuscular Hemoglobin 30.4 pg (25.0-35.0); Mean Corpuscular Volume 96 fL (80-100); Monocytes # (Auto) 2.3 Thou/mm3 (0.0-0.8); Monocytes % (Auto) 18 % (0-12); Neutrophils # (Auto) 5.7 Thou/mm3 (1.8-7.7); Neutrophils % (Auto) 46 % (37-80); Nucleated Red Blood Cell # 0.00 Thou/mm3 (0.00-0.00); Nucleated Red Blood Cell % 0 /100 WBC (0); Platelet Count 312 Thou/mm3 (140-440); RDW Standard Deviation 60.8 fL (36.4-46.3); Red Blood Count 2.50 Miln/mm3 (4.00-5.20); White Blood Count 12.5 Thou/mm3 (3.6-11.0)
[2025-02-13 06:43] LABS: Hemoglobin 7.6 g/dL (12.0-16.0)
[2025-02-13] MEDS: ASCORBIC ACID 500 MG TABLET GT ×2 (09:33→21:14)
[2025-02-13] MEDS: ASPIRIN 81 MG TAB.CHEW GT (09:34)
[2025-02-13] MEDS: BUSPIRONE 10 MG TABLET GT ×2 (09:34→21:15)
[2025-02-13] MEDS: CHOLECALCIFEROL (VITAMIN D3) 25 MCG TABLET GT ×2 (09:35→21:16)
[2025-02-13] MEDS: DEX/HYPRO/GLY ARTIFICAL TEARS 225 DROP/15 ML BTL BOTH EYES ×2 (09:35→21:16)
[2025-02-13] MEDS: ENOXAPARIN SODIUM 40 MG/0.4 ML SYRINGE SC (09:35)
[2025-02-13] MEDS: FERROUS SULFATE 220 MG/5 ML ELIXIR 325 MG GT ×2 (09:35→21:16)
[2025-02-13] MEDS: SODIUM CHLORIDE TAB 1,000 MG TABLET.SOL 1000 MG GT (09:36)
[2025-02-13] MEDS: CARBAMIDE PEROXIDE OTIC SOL 15 ML BTL 5 DROP BOTH EARS ×2 (14:00→21:15)
[2025-02-13] MEDS: INSULIN GLARGINE 100 UNIT/ML INSULN.PEN 8 UNIT SC (17:20)
--- NOTE | 2025-02-13 18:44 | PC.NURSE ---
Review CBC results with Dr. Morris. order to continue Iron and vitamin C. Draw CBC in 30 days from now. Carried out order of CBC.
[2025-02-13] MEDS: ATORVASTATIN 20 MG TABLET 40 MG GT (21:15)
--- NOTE | 2025-02-13 22:18 | ESPR_ITS ---
Progress Note - SubAcute DIAGNOSIS (1) Chronic anoxic encephalopathy: Status: Chronic (2) Chronic respiratory failure: Status: Chronic (3) Ventilator dependent: Status: Chronic (4) Seizures: Status: Chronic (5) Essential hypertension: Status: Chronic (6) PEG (percutaneous endoscopic gastrostomy) status: Status: Chronic (7) Tracheostomy dependence: Status: Chronic (8) Clostridium difficile diarrhea: Status: Acute SUBJECTIVE Fever:: none Shortness of Breath:: none Pain:: none OBJECTIVE Most recent vital signs: Last Vital Signs Temp 97.7 F 02/13/25 17:35 Pulse 72 02/13/25 19:02 Resp 27 H 02/13/25 19:02 BP 108/69 02/13/25 17:35 Pulse Ox 97 02/13/25 19:02 O2 Del Method Mechanical Ventilation 02/12/25 17:48 FiO2 30 02/13/25 19:02 Neurological:: eye tracking (some minimal appropriate response in gesture to simple command) Speech:: nods head Answers questions:: sometimes (gestures) Respiratory:: lungs clear Cardiovascular: RRR Abdomen: soft Extremities:: deformities Tracheostomy:: to ventilator Feeding per:: G tube Complaints:: none ASSESSMENT & PLAN Assessment: 69 yrs of age female being re-admitted to [facility] with Hypertension/hyperlipidemia/epilepsy, recently treated in acute care for UTI sepsis with and on Rocephin one gram daily iv x 4 days. chronic encephalopathy/ chronic respiratory failure/ Ventilator dependent/Trach and feeding G tube as before. VSS , no pain issues. Continued on Vancomycin for C. Diff. tolerating it well. Completed 4 weeks of vancomycin. No new issues. Occasional loose stool still .VSS. No pain. 01-21-25 Spiked fever, work up done. A week ago urine and sputum were negative for similar fever spike and was given Levaquin x4 days. Will wait for cultures. Pt is now afebrile No new work up . stable status. VSS
[2025-02-14] VITALS (8 sets, daily range): BP systolic 101–132; BP diastolic 60–76; PULSE 67–91; RESP 18–34; TEMP 36.1–36.2; O2SAT 95–98
[2025-02-14] MEDS: VALPROIC ACID 250 MG/5 ML 500 MG GT ×3 (05:17→21:26)
[2025-02-14] MEDS: SODIUM CHLORIDE TAB 1,000 MG TABLET.SOL 1000 MG GT (08:18)
[2025-02-14] MEDS: FERROUS SULFATE 220 MG/5 ML ELIXIR 325 MG GT ×2 (08:19→21:25)
[2025-02-14] MEDS: ENOXAPARIN SODIUM 40 MG/0.4 ML SYRINGE SC (08:19)
[2025-02-14] MEDS: DEX/HYPRO/GLY ARTIFICAL TEARS 225 DROP/15 ML BTL BOTH EYES ×2 (08:19→21:26)
[2025-02-14] MEDS: CARBAMIDE PEROXIDE OTIC SOL 15 ML BTL 5 DROP BOTH EARS ×2 (08:19→21:02)
[2025-02-14] MEDS: CHOLECALCIFEROL (VITAMIN D3) 25 MCG TABLET GT ×2 (08:19→21:26)
[2025-02-14] MEDS: BUSPIRONE 10 MG TABLET GT ×2 (08:20→21:26)
[2025-02-14] MEDS: ASCORBIC ACID 500 MG TABLET GT ×2 (08:21→21:26)
[2025-02-14] MEDS: ASPIRIN 81 MG TAB.CHEW GT (08:21)
--- NOTE | 2025-02-14 11:55 | PC.NURSE ---
Dr Silverio reviewed resident's sputum C & S result. Resident remains stable and afebrile. Not in any form of distress. No new orders received from .
--- NOTE | 2025-02-14 13:13 | PC.SS ---
Resident remains on vent with trach in place and GT for medication and nutrition. Resident is unable to make needs known, patient financial representative will continue to make all medical decisions for resident, she will continue to have all subacute care needs met by staff.
[2025-02-14] MEDS: INSULIN GLARGINE 100 UNIT/ML INSULN.PEN 8 UNIT SC (17:10)
[2025-02-14] MEDS: ATORVASTATIN 20 MG TABLET 40 MG GT (21:26)
[2025-02-15] VITALS (7 sets, daily range): BP systolic 97–103; BP diastolic 61–68; PULSE 74–88; RESP 18–294; TEMP 36.1–36.6; O2SAT 97–99
[2025-02-15] MEDS: VALPROIC ACID 250 MG/5 ML 500 MG GT ×3 (05:04→21:26)
[2025-02-15] MEDS: ENOXAPARIN SODIUM 40 MG/0.4 ML SYRINGE SC (09:53)
[2025-02-15] MEDS: ASPIRIN 81 MG TAB.CHEW GT (09:55)
[2025-02-15] MEDS: ASCORBIC ACID 500 MG TABLET GT ×2 (09:55→21:28)
[2025-02-15] MEDS: BUSPIRONE 10 MG TABLET GT ×2 (09:55→21:28)
[2025-02-15] MEDS: CARBAMIDE PEROXIDE OTIC SOL 15 ML BTL 5 DROP BOTH EARS ×2 (09:55→21:28)
[2025-02-15] MEDS: DEX/HYPRO/GLY ARTIFICAL TEARS 225 DROP/15 ML BTL BOTH EYES ×2 (09:56→21:29)
[2025-02-15] MEDS: CHOLECALCIFEROL (VITAMIN D3) 25 MCG TABLET GT ×2 (09:56→21:28)
[2025-02-15] MEDS: SODIUM CHLORIDE TAB 1,000 MG TABLET.SOL 1000 MG GT (09:56)
[2025-02-15] MEDS: FERROUS SULFATE 220 MG/5 ML ELIXIR 325 MG GT ×2 (09:56→21:29)
[2025-02-15] MEDS: INSULIN GLARGINE 100 UNIT/ML INSULN.PEN 8 UNIT SC (17:23)
[2025-02-15] MEDS: ATORVASTATIN 20 MG TABLET 40 MG GT (21:28)
[2025-02-16] VITALS (8 sets, daily range): BP systolic 94–153; BP diastolic 56–67; PULSE 68–80; RESP 18–35; TEMP 35.9–36.2; O2SAT 95–99
[2025-02-16] MEDS: VALPROIC ACID 250 MG/5 ML 500 MG GT ×3 (05:08→21:18)
[2025-02-16] MEDS: ASCORBIC ACID 500 MG TABLET GT ×2 (09:53→21:18)
[2025-02-16] MEDS: BUSPIRONE 10 MG TABLET GT ×2 (09:53→21:18)
[2025-02-16] MEDS: CARBAMIDE PEROXIDE OTIC SOL 15 ML BTL 5 DROP BOTH EARS ×2 (09:55→21:14)
[2025-02-16] MEDS: ASPIRIN 81 MG TAB.CHEW GT (09:55)
[2025-02-16] MEDS: DEX/HYPRO/GLY ARTIFICAL TEARS 225 DROP/15 ML BTL BOTH EYES ×2 (09:56→21:16)
[2025-02-16] MEDS: ENOXAPARIN SODIUM 40 MG/0.4 ML SYRINGE SC (09:56)
[2025-02-16] MEDS: CHOLECALCIFEROL (VITAMIN D3) 25 MCG TABLET GT ×2 (09:56→21:17)
[2025-02-16] MEDS: FERROUS SULFATE 220 MG/5 ML ELIXIR 325 MG GT ×2 (09:57→21:16)
[2025-02-16] MEDS: SODIUM CHLORIDE TAB 1,000 MG TABLET.SOL 1000 MG GT (09:58)
[2025-02-16] MEDS: ACETAMINOPHEN 325 MG TABLET 650 MG GT (09:59)
[2025-02-16] MEDS: INSULIN GLARGINE 100 UNIT/ML INSULN.PEN 8 UNIT SC (17:07)
[2025-02-16] MEDS: ATORVASTATIN 20 MG TABLET 40 MG GT (21:18)
[2025-02-17] VITALS (7 sets, daily range): BP systolic 107–134; BP diastolic 69–83; PULSE 72–116; RESP 20–37; TEMP 36.1–39.2; O2SAT 95–100; BMI 32.8
[2025-02-17] MEDS: VALPROIC ACID 250 MG/5 ML 500 MG GT ×2 (05:00→13:09)
[2025-02-17] MEDS: ASCORBIC ACID 500 MG TABLET GT (09:18)
[2025-02-17] MEDS: ENOXAPARIN SODIUM 40 MG/0.4 ML SYRINGE SC (09:24)
[2025-02-17] MEDS: ASPIRIN 81 MG TAB.CHEW GT (09:24)
[2025-02-17] MEDS: BUSPIRONE 10 MG TABLET GT (09:24)
[2025-02-17] MEDS: CHOLECALCIFEROL (VITAMIN D3) 25 MCG TABLET GT (09:24)
[2025-02-17] MEDS: DEX/HYPRO/GLY ARTIFICAL TEARS 225 DROP/15 ML BTL BOTH EYES (09:24)
[2025-02-17] MEDS: SODIUM CHLORIDE TAB 1,000 MG TABLET.SOL 1000 MG GT (09:25)
[2025-02-17] MEDS: FERROUS SULFATE 220 MG/5 ML ELIXIR 325 MG GT (09:25)
[2025-02-17] MEDS: ACETAMINOPHEN 325 MG TABLET 650 MG GT (13:51)
[2025-02-17] MEDS: IPRATROPIUM/ALBUTEROL 3 ML AMPUL.NEB INH (14:40)
[2025-02-17] MEDS: guaiFENesin Liq 100 MG/5 ML LIQUID 300 MG GT (15:18)
--- NOTE | 2025-02-17 15:42 | XR_ITS ---
EXAMINATION: AP chest single view TECHNIQUE: AP portable sitting chest single view Date and time: February 17, 2025, 1557 hours INDICATIONS: Tachypnea today. FINDINGS: Mild prominence left ventricle Ectatic thoracic aorta. Opacity in both lungs consistent with pneumonia Tracheostomy tube tip 4.7 cm above michael IMPRESSION: Fairly diffuse bilateral pneumonia
--- NOTE | 2025-02-17 16:06 | PC.NURSE ---
Addendum entered and electronically signed by Dahiana Baker RN 02/17/25 18:14: Sister Suzie returned phone call aware resident sentt to ED. Called report to JACKIE Romeo in ER. Addendum entered and electronically signed by Dahiana Baker RN 02/17/25 17:35: Notified MD and Family.(sister Suzie)left message. Addendum entered and electronically signed by Dahiana Baker RN 02/17/25 17:32: Resident transported to ED via gurney for further evaluation, accompanied by RT Elvira WONG and CNAs, Nasrin and Hortencia. Resident remains febrile and with increase respiratory rate. Will call report once resident is in room . Assigned to room #2. Original Note: entry for event started at 1200. increased respiratory rate to 40-45BPM. Resident received breathing tx, suctioned, relief noted for some time. thereafter resident continue to have Respiratory distress. Vital signs assessed at around 1330. temp. 100.9, HR 95, 140/79. RR 39/45. still respiratory distress noted. O2 saturation 94%. resident remains on mechanical ventilator. Cooling measures initiated. Notified MD at 1515. new order to obtaining CXR stat. if condition still manageable do protocol if not send patient to ER for further evaluation. At 1600 resident temperature increased to 102.8 R, HR130, RR45, B/P 140/84. CXR were done 15 minutes ago. Resident condition declining. Called ED spoke to Samantha Charge nurse will attempt to get a bed.
[2025-02-17] MEDS: INSULIN GLARGINE 100 UNIT/ML INSULN.PEN 8 UNIT SC (17:09)
--- NOTE | 2025-02-23 17:13 | PC.SS ---
Resident taken to ER for change in condition, admitted to Tele on 02/17/25.
== END 2025-02-24 00:01 | disposition admitted as inpatient to this hospital (09) | DRG 92 ==
PROVIDERS: Specialist; Admitting Provider Specialist; Visit Provider Specialist
DX: G93.1 Anoxic brain damage, not elsewhere classified (principal); A04.72 Enterocolitis due to Clostridium difficile, not specified as recurrent; J96.10 Chronic respiratory failure, unspecified whether with hypoxia or hypercapnia; Z99.11 Dependence on respirator [ventilator] status; Z93.1 Gastrostomy status; Z93.0 Tracheostomy status; I10 Essential (primary) hypertension; G40.909 Epilepsy, unspecified, not intractable, without status epilepticus; Z66 Do not resuscitate
CPT/HCPCS: 36415; 71045; 80051; 80053; 80069; 80177; 81001; 82271; 82607; 82746; 82947; 83036; 83540; 83550; 83735; 84100; 84145; 85025; 85046; 87040; 87077; 87186; 87205; 87502; 87811; 92523; 94002; 94004

== ENCOUNTER 2025-02-17 17:47 | Inpatient (IN) | payer MEDICARE, MEDICAID, SELFPAY ==
[2025-02-17] VITALS (8 sets, daily range): BP systolic 102–133; BP diastolic 50–78; PULSE 95–110; RESP 22–38; TEMP 36.7–38; O2SAT 96–100; BMI 30.1
--- NOTE | 2025-02-17 18:18 | PD.EDSOB ---
ED SOB =RME/HPI General Chief Complaint: Shortness of Breath/Dyspnea Stated Complaint: FEVER Time Seen by Provider: 02/17/25 18:18 Arrival date/time: 02/17/25 17:47 RME / HPI RME / HPI Narrative: Dr. Sloan?s Main ED Evaluation: 69yo female with a history of epilepsy, HTN, HLD, DM, chronic anoxic encephalopathy s/p trach and PEG tube brought in from subacute presents to the ED for complaints of shortness of breath and fever x today. Patient had swabs, labs, and a chest x-ray done prior to coming to the ED for evaluation. Full ROS is unobtainable due to the patient's medical condition. Related Data Previous Rx's ?Medication ?Instructions ?Recorded cefTRIAXone/D5w 1gm IV premix 100 mls/hr IV DAILY 4 days #5 ea 10/27/24 [Rocephin/D5w 1gm IV premix] 1 gm in 50 ml cefTRIAXone/D5w 1gm IV premix 100 mls/hr IV DAILY Possible UTI 10/27/24 [Rocephin/D5w 1gm IV premix] 1 gm 30 days #5 ea in 50 ml Diazepam 5 mg IM [id number] PRN Seizures #1 11/18/24 dose aspirin 81 mg chewable tablet 81 mg G-tube QDAY 30 days #370 tabs 11/24/24 atorvastatin 20 mg tablet 40 mg (2 x 20 mg) G-tube HS 11/24/24 hyperlipidemia 30 days #740 tabs cholecalciferol (vitamin D3) 25 25 mcg G-tube BID supplement 30 11/24/24 mcg (1,000 unit) tablet days #370 tabs artificial 2 drp Both eyes BID 30 days #15 mL 12/24/24 tears(xuxgzle-qzxxmlas-sfoezvf) 0.1 %-0.3 %-0.2 % eye drops (GenTeal Tears Moderate) sodium chloride 1,000 mg soluble 1,000 mg G-tube QDAY 30 days #364 12/25/24 tablet tabs buspirone 10 mg tablet 10 mg G-tube BID for depression 30 12/27/24 days #363 tabs insulin glargine-yfgn 100 unit/mL 8 unit (0.08 mL) SCi DAILY@1800 01/07/25 (3 mL) subcutaneous pen Diabetes 30 days #25.68 mL acetaminophen 325 mg tablet 650 mg (2 x 325 mg) G-tube Q6HR 01/21/25 PRN Pain 336 days #360 tabs bisacodyl 10 mg rectal suppository 10 mg MA PRN PRN No BM Per Bowel 01/21/25 (Dulcolax (bisacodyl)) Management Protocol 30 days #12 ea glucagon 1 mg/0.2 mL subcutaneous 1 mg (0.2 mL) IM Q15MIN PRN 01/21/25 solution (Gvoke) Hypoglycemia 30 days #0.2 mL guaifenesin 100 mg/5 mL oral 300 mg (15 mL) G-tube Q6HR PRN 01/21/25 liquid (Taylor-Tussin) Cough 30 days #1,000 mL insulin lispro 100 unit/mL See Rx Instructions SCi 18 for 01/21/25 subcutaneous pen DM 30 days #15 mL ipratropium 0.5 mg-albuterol 3 mg 3 ml INH Q2HR PRN Wheezing 30 days 01/21/25 (2.5 mg base)/3 mL nebulization #90 mL soln levetiracetam 100 mg/mL oral 1,000 mg (10 mL) G-tube BID 01/21/25 solution seizures 30 days #3,380 mL magnesium hydroxide 400 mg/5 mL 30 ml G-tube PRN PRN Constipation 01/21/25 oral suspension (Milk of Magnesia) 30 days #3,000 mL polyethylene glycol 3350 17 gram 17 g G-tube PRN PRN No BM Per 01/21/25 oral powder packet Bowel Management Protocol 30 days #30 ea sodium phosphates 19 gram-7 133 ml MA PRN PRN No BM Per Bowel 01/21/25 gram/118 mL enema (Fleet Enema) Management Protocol 30 days #266 mL valproic acid (as sodium salt) 250 500 mg (10 mL) G-tube TID 30 days 01/21/25 mg/5 mL oral solution #3,380 mL carbamide peroxide 6.5 % ear drops 5 drp otic (ear) Q61D 30 days #15 01/23/25 (Ear Wax Removal Drops) mL carbamide peroxide 6.5 % ear drops 5 drp otic (ear) Q61D 30 days #15 01/23/25 (Ear Wax Removal Drops) mL carbamide peroxide 6.5 % ear drops 5 drp otic (ear) Q61D 30 days #15 01/23/25 (Ear Wax Removal Drops) mL carbamide peroxide 6.5 % ear drops 5 drp otic (ear) Q61D 30 days #15 01/23/25 (Ear Wax Removal Drops) mL carbamide peroxide 6.5 % ear drops 5 drp otic (ear) Q61D 30 days #15 01/23/25 (Ear Wax Removal Drops) mL carbamide peroxide 6.5 % ear drops 5 drp otic (ear) Q61D 30 days #15 01/23/25 (Ear Wax Removal Drops) mL carbamide peroxide 6.5 % ear drops 5 drp otic (ear) Q61D 30 days #15 01/23/25 (Ear Wax Removal Drops) mL carbamide peroxide 6.5 % ear drops 5 drp otic (ear) Q61D 30 days #15 01/23/25 (Ear Wax Removal Drops) mL enoxaparin 40 mg/0.4 mL 40 mg (0.4 mL) SCi QDAY blood 01/26/25 subcutaneous syringe thinner 90 days #134.4 mL ascorbic acid (vitamin C) 500 mg 500 mg G-tube BID supplement 30 02/14/25 tablet days #60 tabs ferrous sulfate 220 mg (44 mg 325 mg (7.3864 mL) G-tube BID 02/14/25 iron)/5 mL oral elixir anemia 30 days #443.184 mL acetaminophen 325 mg tablet 650 mg (2 x 325 mg) G-tube Q4HR 02/17/25 PRN Fever > 100.4 7 days #60 tabs Allergies Allergy/AdvReac Type Severity Reaction Status Date / Time codeine Allergy Verified 06/24/24 19:33 Review of Systems Review of Systems ROS Unobtainable: unobtainable due to medical condition ED Exam Narrative Physical exam: Patient is nonverbal with minimal response to verbal stimulation, neck shows tracheostomy to be in place, heart tachycardic rate with regular rhythm, lungs show rhonchi bilaterally with fair air exchange, extremities show 1-2+ pitting pedal edema extending up to mid tibias bilaterally, abdomen is somewhat distended and tympanic with G-tube in place, neurologic exam patient has no movement to extremities to painful stimuli no verbalization and eyes are open spontaneously. Course Course Course Narrative: 175: Sepsis alert initiated prior to my arrival. Orders made at this time are congruent with ED Adult Sepsis Order List. Re-evaluation is to be completed. 193: LR IVF ordered. Quality Measures Possible source: pulmonary Blood cultures ordered: yes Antibiotic ordered: Yes Pertinent labs: 02/17/25 18:57 Lactic Acid 4.6 H* mMol/L (0.4-2.0) sepsis Orders Category Date Time Status EKG (ED ONLY) *Do not use* NOW Care 02/17/25 18:25 Active EKG (ED Only) Stat Exams 02/17/25 18:25 Draft ABG [Arterial Blood Gas] Stat Lab 02/17/25 18:26 Ordered CMP [Comprehensive Metabolic Panel] Stat Lab 02/17/25 17:53 Completed Lactic Acid [Lactate (Lactic Acid)] Stat Lab 02/17/25 18:57 Results Troponin I Stat Lab 02/17/25 17:53 Completed UA [Urinalysis] Stat Lab 02/17/25 18:58 Completed Cefepime Inj [Maxipime Inj] 1 gm Med 02/17/25 18:26 Discontinued SODIUM CHLORIDE 0.9% (Popper) [Ns 0.9% (P)] 50 ml IV X1 Ringers Lactated 1000 ml [Lactated Ringers] 2,463 ml Med 02/17/25 19:30 Active IV 2,463 mls/hr Vancomycin Inj 2,000 mg Med 02/17/25 18:45 Active Sodium Chloride 0.9% 500 ml [Ns] 500 ml IV X1 Vancomycin Pharmacy to Dose Med 02/17/25 18:30 Discontinued 1 each IV QDAY PRN Vital Signs Vital signs: Vital Signs Temperature 100.4 F 02/17/25 17:51 Pulse Rate 104 H 02/17/25 17:51 Respiratory Rate 24 H 02/17/25 17:51 Blood Pressure 114/67 02/17/25 17:51 Pulse Oximetry (%) 97 02/17/25 17:51 Oxygen Delivery Method Mechanical Ventilation 02/17/25 17:51 Fraction of Inspired Oxygen 30 02/17/25 17:51 Shortness of Breath / Dyspnea MDM Narrative MDM Narrative:: Scribe Attestation: 02/17/25 Hermila Barnard am scribing for and in the presence of Dr. Sloan. Patient triggered a sepsis alert. Lactic acid level is 4.6. Patient received 30 cc/kg of lactated Ringer's. She has not been hypotensive. She has been tachycardic. Chest x-ray shows bilateral pneumonia. Patient received cefepime 1 g IV and pharmacy dose vancomycin IV. White blood cell count is 31,000. Procalcitonin level is elevated. I did discuss this case with the hospitalist and the patient will be admitted to the hospital for further treatment and evaluation. Patient is DO NOT RESUSCITATE CODE STATUS. EKG done at 6:55 PM shows sinus tachycardia at a rate of 102 without ischemic change Patient data External records reviewed:: [facility] previous records (Per chart review, patient was admitted here on 11/10/24 for fever. 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 Social determinants that could affect healthcare access:: housing (subacute resident) Patient has the following chronic illnesses:: epilepsy, HTN, HLD, DM, chronic anoxic encephalopathy s/p trach and PEG tube How is presenting disease/condition affected by chronic disease/condition?: exacerbated by Evaluation data The following diagnostics were reviewed and interpreted by me:: lab results and EKG tracing(s) Lab and/or radiology exams considered but not ordered:: none Interpretation Summary: See [facility] Medications / Prescriptions Medications or Prescriptions considered but not ordered:: none Medication administrations:: Medication Administration History Vancomycin HCl 2,000 mg/ (Sodium Chloride) 500 mls @ 150 mls/hr IV X1 ONE Stop: 02/17/25 22:04 Lactated Ringer's (Lactated Ringers) 2,463 mls @ 2,463 mls/hr 30 ml/kg infuse over 60 min (2463 ml) IV .Q1H ONE Stop: 02/17/25 20:29 Discontinued Medications Cefepime HCl 1 gm/ Sodium (Chloride) 50 mls @ 100 mls/hr IV X1 ONE Stop: 02/17/25 18:55 Last Admin: 02/17/25 19:14 Dose: 100 mls/hr Documented By: BR Pharmacy Consult (Vancomycin Pharmacy To Dose 1 Each Each) 1 each IV QDAY PRN PRN Reason: PER PROTOCOL Stop: 02/17/25 18:31 see above Consultations Consultation(s) initiated? (list below): Yes Diagnosis Shortness of Breath Differential Diagnosis: other (See MDM) Most likely diagnosis given after review of the tests above:: see clinical impression below Admission Indicated Admission indicated?: indicated Admission Request Was there a request for admission?: Yes Admission Attestation Admission request attestation: Discussed case with [] from Hospitalist service regarding admission. Discussed patients ED course, exam findings, labs, and radiology results. The Hospitalist [agrees,declines] to accept the patient for admission. Disposition Plan Disposition Plan: Admit Critical Care Time Critical Care Time Critical Care Time: Yes Total Critical Care Time (min.): 35 Attestation: Excluding other billable procedures Discharge Plan Plan Patient Disposition: Admit Acute Care w/in Hospital Prescriptions/Referrals Prescriptions/Med Rec: No Action Diazepam 5 mg IM [id number] PRN (Reason: Seizures) Qty: 1 0RF Rx Instructions: Diazepam 5mg/mL injection, Inject 5mg/mL intramuscularly as needed for seizures. If seizure persist administer 2nd dose. If not effective send PT to ER for further eval. and notify MD. *Single dose vial atorvastatin 20 mg tablet 40 mg G-tube HS 370 Days Qty: 740 0RF aspirin 81 mg tablet,chewable 81 mg G-tube QDAY 370 Days Qty: 370 0RF Rx Instructions: Give one tab daily PGT for DVT prevention cholecalciferol (vitamin D3) 25 mcg (1,000 unit) tablet 25 mcg G-tube BID 370 Days Qty: 370 0RF Ear Wax Removal Drops 6.5 % drops 5 drp otic (ear) Q61D 284 Days Qty: 15 11RF Ear Wax Removal Drops 6.5 % drops 5 drp otic (ear) Q61D 283 Days Qty: 15 11RF Ear Wax Removal Drops 6.5 % drops 5 drp otic (ear) Q61D 281 Days Qty: 15 0RF Ear Wax Removal Drops 6.5 % drops 5 drp otic (ear) Q61D 284 Days Qty: 15 0RF Rx Instructions: 5 drops per ear at first med pass of shift. Then irrigate ears with NS at next med pass of each shift x 4 days for wax build up. *Start on the of the month, every two months. Ear Wax Removal Drops 6.5 % drops 5 drp otic (ear) Q61D 283 Days Qty: 15 11RF Ear Wax Removal Drops 6.5 % drops 5 drp otic (ear) Q61D 282 Days Qty: 15 0RF Ear Wax Removal Drops 6.5 % drops 5 drp otic (ear) Q61D 282 Days Qty: 15 0RF Rx Instructions: 5 drops per ear at first med pass of shift. Then irrigate ears with NS at next med pass of each shift x 4 days for wax build up. *Start on the of the month, every two months. Ear Wax Removal Drops 6.5 % drops 5 drp otic (ear) Q61D 281 Days Qty: 15 0RF Rx Instructions: 5 drops per ear at first med pass of shift. Then irrigate ears with NS at next med pass of each shift x 4 days for wax build up. *Start on the of the month, every two months. artificial tear([id number]) [GenTeal Tears Moderate] 0.1-0.3-0.2 % drops 2 drp Both eyes BID 336 Days Qty: 15 0RF Rx Instructions: FOR DRYNESS sodium chloride 1,000 mg tablet,soluble 1,000 mg G-tube QDAY 363 Days Qty: 364 0RF Rx Instructions: For Hyponatremia buspirone 10 mg tablet 10 mg G-tube BID 363 Days Qty: 363 0RF Label Comments: AMB refusing care Rx Instructions: Continue Buspirone 10mg BID x30 days then re-evaluate with MD. insulin glargine-yfgn 100 unit/mL (3 mL) insulin pen 8 unit SCi DAILY@1800 321 Days Qty: 25.68 0RF Label Comments: Hold if blood sugar is <80 acetaminophen 325 mg tablet 650 mg G-tube Q6HR PRN (Reason: Pain) 337 Days Qty: 360 0RF Rx Instructions: Do not exceed more than 3gm of acetaminophen per day from all sources ipratropium-albuterol 0.5 mg-3 mg(2.5 mg base)/3 mL solution for nebulization 3 ml INH Q2HR PRN (Reason: Wheezing) 337 Days Qty: 90 0RF guaifenesin [Taylor-Tussin] 100 mg/5 mL liquid 300 mg G-tube Q6HR PRN (Reason: Cough) 63 Days Qty: 1000 1RF Rx Instructions: Conc: 100MG/5ML- give 300mg/15ml valproic acid (as sodium salt) 250 mg/5 mL solution 500 mg G-tube TID 337 Days Qty: 3380 0RF Rx Instructions: Valproic acid 250/5ml chelsey. Give 500mg (10ml) PGT for seizures bisacodyl [Dulcolax (bisacodyl)] 10 mg suppository 10 mg MA PRN PRN (Reason: No BM Per Bowel Management Protocol) 337 Days Qty: 12 0RF Rx Instructions: Administer as needed on 6th shift, if MOM ineffective. Fleet Enema 19-7 gram/118 mL enema 133 ml MA PRN PRN (Reason: No BM Per Bowel Management Protocol) 337 Days Qty: 266 1RF insulin lispro 100 unit/mL insulin pen See Rx Instructions SCi ,18 337 Days Qty: 15 0RF Rx Instructions: Per Sliding Scale as follows: 0-150= 0 units; 151-200= 2 units; 201-250= 4 units; 251-300= 6 units; 301-350= 8 units; 351-400= 10 units; >400= 12 units; and call levetiracetam 100 mg/mL solution 1,000 mg G-tube BID 337 Days Qty: 3380 0RF Rx Instructions: give [id number] for seizures polyethylene glycol 3350 17 gram powder in packet 17 g G-tube PRN PRN (Reason: No BM Per Bowel Management Protocol) 337 Days Qty: 30 0RF Rx Instructions: Mix with 4oz of water before giving. Hold tube feeding for 30 minutes after administration. Notify provider if no results from Miralax. magnesium hydroxide [Milk of Magnesia] 400 mg/5 mL suspension 30 ml G-tube PRN PRN (Reason: Constipation) 337 Days Qty: 3000 0RF Rx Instructions: CONC: 400MG/5ML Gvoke 1 mg/0.2 mL solution 1 mg IM Q15MIN PRN (Reason: Hypoglycemia) 337 Days Qty: 0.2 0RF enoxaparin 40 mg/0.4 mL syringe 40 mg SCi QDAY 335 Days Qty: 134.4 3RF ascorbic acid (vitamin C) 500 mg tablet 500 mg G-tube BID Qty: 60 11RF ferrous sulfate 220 mg (44 mg iron)/5 mL elixir 325 mg G-tube BID Qty: 443.184 11RF Rx Instructions: CONC: 220mg/5ml Give: 325mg/7.5ml acetaminophen 325 mg tablet 650 mg G-tube Q4HR PRN (Reason: Fever > 100.4) 7 Days Qty: 60 0RF Label Comments: Not to exceed 3gm of Tylenol from all sources. Rx Instructions: fever protocol Referrals: No Primary/Family,Physician [Primary Care Provider] - In 1 week Problem List Clinical Impression: Pneumonia, Dependent on ventilator, Anoxic brain injury, Sepsis Patient/Caregiver Discharge Instructions Print Language: Slovak Stand Alone Forms: Johana Award Info., Patient Portal Info Letter
[2025-02-17 18:22] LABS: Basophils # (Auto) 0.1 Thou/mm3 (0.0-0.2); Basophils % (Auto) 0 % (0-2.5); Eosinophils # (Auto) 0.2 Thou/mm3 (0.0-0.5); Eosinophils % (Auto) 1 % (0-10); Hematocrit 27.5 % (36.0-46.0); Hemoglobin 9.0 g/dL (12.0-16.0); Immature Granulocytes Auto 0.86 Thou/mm3 (0.00-0.00); Lymphocytes # (Auto) 1.6 Thou/mm3 (1.0-4.8); Lymphocytes % (Auto) 5 % (10-50); Mean Corpuscular HGB Conc 32.7 g/dl (31.0-37.0); Mean Corpuscular Hemoglobin 30.8 pg (25.0-35.0); Mean Corpuscular Volume 94 fL (80-100); Monocytes # (Auto) 3.5 Thou/mm3 (0.0-0.8); Monocytes % (Auto) 11 % (0-12); Neutrophils # (Auto) 25.1 Thou/mm3 (1.8-7.7); Neutrophils % (Auto) 80 % (37-80); Nucleated Red Blood Cell # 0.03 Thou/mm3 (0.00-0.00); Nucleated Red Blood Cell % 0 /100 WBC (0); Platelet Count 344 Thou/mm3 (140-440); RDW Standard Deviation 58.6 fL (36.4-46.3); Red Blood Count 2.92 Miln/mm3 (4.00-5.20); White Blood Count 31.3 Thou/mm3 (3.6-11.0)
--- NOTE | 2025-02-17 18:25 | EKG_ITS ---
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
[2025-02-17 18:43] LABS: COVID-19 Antigen (In-House) Negative (Negative)
[2025-02-17 18:53] LABS: Influenza A Ag Negative; Influenza B Ag Negative
[2025-02-17 18:56] LABS: Procalcitonin 1.12 ng/ml (0.0-0.49)
[2025-02-17 19:03] LABS: Collection Type, Urine Catheter; Squamous Epithelial Cell,Urine 0 /hpf (0-5)
[2025-02-17 19:06] LABS: Lactate (Lactic Acid) 4.6 mMol/L (0.4-2.0)
[2025-02-17] MEDS: CEFEPIME INJ 1 GM in SODIUM CHLORIDE 0.9% (Popper) 50 ML IV (19:14)
[2025-02-17 19:18] LABS: Bilirubin,Urine Negative (Negative); Blood,Urine Negative (Negative); Clarity,Urine Clear (Clear/Hazy); Color,Urine Yellow (Lt Yel-Yel); Glucose, Urine Negative (Negative); Ketones,Urine Trace (Negative); Leukocyte Esterase,Urine Negative (Negative); Nitrite,Urine Negative (Negative); PH,Urine 6.0 (5.0-7.0); Protein,Urine Negative (Neg - Trace); RBC,Urine < 1 /hpf (0-3); Specific Gravity,Urine 1.019 (1.001-1.035); Urobilinogen,Urine Negative mg/dL (0.0-1.0); WBC,Urine 1 /hpf (0-5)
[2025-02-17 19:36] LABS: Alanine Aminotransferase 10 U/L (10-49); Albumin, Serum 4.2 gm/dL (3.4-4.8); Albumin/Globulin Ratio 1.3 (1.2-2.2); Alkaline Phosphatase 66 U/L (46-116); Anion Gap 13 (7-16); Aspartate Amino Transferase 39 U/L (0-34); BUN/Creatinine Ratio 17 Ratio (12-20); Bilirubin,Total 0.2 mg/dL (0.3-1.2); Blood Urea Nitrogen 12 mg/dL (9-23); Calcium 9.5 mg/dL (8.3-10.6); Calcium (Corrected) 9.5 mg/dL (8.5-10.1); Carbon Dioxide 25.6 mMol/L (20.0-31.0); Chloride 99 mMol/L (98-107); Creatinine (Component) 0.7 mg/dL (0.6-1.3); Estimated Creatinine Clearance 79.1 mL/min (>60); Globulin 3.2 gm/dL (2.3-3.5); Glucose 123 mg/dL (74-106); Osmolality,Calculated 276 (275-295); Potassium 3.9 mMol/L (3.4-5.1); Sodium 138 mMol/L (136-145); Total Protein 7.4 gm/dL (5.7-8.2); Troponin I 0.022 ng/mL (0.0-0.045); eGFR > 60 See Note
[2025-02-17 20:10] LABS: Base Excess 4 (-3-3); HCO3 30 mEq/L (20-26); Inspired Oxygen, FIO2 30 %; O2 Saturation 99 % (91-98); PCO2 51 mmHg (32.0-48.0); PO2 90 mmHg (83-108); pH, Arterial 7.38 (7.35-7.45)
[2025-02-17 20:11] LABS: Allen Test Performed/OK; Puncture Site Left Radial
[2025-02-17] MEDS: Vancomycin Inj 2,000 MG in SODIUM CHLORIDE 0.9% 500 ML 500 ML 150 MG IV (20:33)
--- NOTE | 2025-02-17 20:49 | ESHP_ITS ---
<Statement entered by Rabia Moore MD - 02/18/25 05:50> Patient is 69 yr female with PMH of epilepsy, HTN, HLD, DM, chronic anoxic encephalopathy s/p trach and PEG tube was brought in from subacute at [facility] after noted to have a fever. Nursing staff noticed some SOB as well. Labs reviewed. Has leukocytosis 31, elevated LA 4.6, Hgb 9.0, Procal 1.12. ABG pH 7.38 pCO2 51 pO2 90 HCO3 30 O2 sat 99%. UA unremarkable. Flu/covid negative, b/l pneumonia noted on CXR. Patient is able to answer basic questions with head movement. ED called sepsis alert. Blood cultures pending. Patient has history of Pseudomonas pneumonia resistant to multiple agents. Started on cefepime and vancomycin empirically for HAP,. MRSA nares pending. Note reviewed, I agree with most of its contents and agree with the patient's care as documented by Dr. Magallon. The patient's management plan was discussed with my attending physician Dr. Nolen. Rabia Moore, PGY-2 Documentation for date of: 02/17/25 HPI History of Present Illness History of present illness: 69yo female with a history of epilepsy, HTN, HLD, DM, anoxic brain injury s/p trach and PEG tube brought in from subacute presents to the ED for complaints of shortness of breath, and fever x today. Admitted for sepsis 2/2 pneumonia ED Course Summary Vitals: BP 114/67 HR 104 RR 24 T 100.4 O2 97% Mechanical vent FiO2 30 Labs: WBC 31.3 Hgb 9.0, lactic acid 4.6 Procal 1.12 ABG pH 7.38 pCO2 51 pO2 90 HCO3 30 O2 sat 99% UA unremarkable Influenza A + B negative Covid negative Imaging: EKG sinus tachy HR 102 QTc 421. CXR fairly diffuse bilateral pneumonia Treatment: Cefepime, LR 2.4L Consults and why: None Upon initial examination patient is mostly unresponsive, watching the interviewer with eyes open, and once or twice shook her head to indicate she disliked/disagreed with some things. There was no history to be gathered from her, and medications/history was obtained per chart review and ED sign out. Code: DNR/DNI Insulin: yes Medical Hx: Please see 1-liner above Medications: From subacute list Allergies: codeine Surgical history: unable to obtain Fhx: unable to obtain Living: Subacute at [facility] Patient admitted for: sepsis 2/2 pneumonia All 12 systems reviewed and were negative except otherwise stated in HPI. Exam Vital Signs Temp Pulse Resp BP Pulse Ox O2 Del Method FiO2 100.4 F 96 31 H 104/51 L 99 Trach Collar 29 02/17/25 19:53 02/17/25 20:10 02/17/25 20:21 02/17/25 20:21 02/17/25 20:21 02/17/25 20:21 02/17/25 20:21 Narrative Exam GENERAL APPEARANCE: AOx0. NAD, on ventilator. Noncommunicative. Trach'd and PEG'd HEENT: Normocephalic atraumatic, no facial trauma, neck is supple. Lids/conjunctiva normal. Mucous membranes moist, nares normal, lips/teeth normal uvula midline without oral pharyngeal erythema, exudate or swelling TMs normal bilaterally. No lymphangitis/lymphedema. CARDIAC: Regular rate and rhythm, S1+S2 heard. No murmurs, rubs, or gallops noted RESPIRATORY: mechanical ventilation, no tripod position, no accessory muscle use. Rhonchi left lung lobe, no wheezing no crackles ABDOMINAL: NBS. Soft, ND/NT. No evidence of fluid wave. No pulsatile masses on exam, rebound tenderness, Escamilla sign or pain over Mcburney's point. +PEG tube MUSCLES/EXTREMITIES: No abnormal range of motion. +2 pedal edema DERM: Warm, pink and dry. No rashes, dermatoses, petechiae or lesions. NEUROLOGICAL: Speech is clear and appropriate. Normal level of consciousness. Gait and coordination are normal. 5/5 strength in all extremities. PSYCH: Normal mood and affect. Judgement/competence is appropriate Results: Labs 02/18/25 05:27 02/18/25 05:27 Labs: BMP 02/17/25 17:53 Sodium 138 Potassium 3.9 Chloride 99 Carbon Dioxide 25.6 BUN 12 Creatinine 0.7 Glucose 123 H Calcium 9.5 Cardiac Enzymes 02/17/25 Range/Units 17:53 Troponin I 0.022 (0.0-0.045) ng/mL Liver Function 02/17/25 Range/Units 17:53 Total Bilirubin 0.2 L (0.3-1.2) mg/dL AST 39 H (0-34) U/L ALT 10 (10-49) U/L Alkaline Phosphatase 66 (46-116) U/L Albumin 4.2 (3.4-4.8) gm/dL Urine 02/17/25 Range/Units 18:58 Urine Color Yellow (Lt Yel-Yel) Urine Clarity Clear (Clear/Hazy) Urine pH 6.0 (5.0-7.0) Ur Specific [place] 1.019 (1.001-1.035) Urine Protein Negative (Neg - Trace) Urine Glucose (UA) Negative (Negative) ABG Interpretation ABG results: 02/17/25 20:07 ABG pH 7.38 ABG pCO2 51 H ABG pO2 90 ABG HCO3 30 H ABG O2 Saturation 99 H ABG Base Excess 4 H Quality Measures Quality Measures VTE prophylaxis and sepsis Current suspected stage: ruled out Possible source: pulmonary Blood cultures ordered: yes Antibiotic ordered: Yes Advance care planning discussed with:: other Medications Home Medications and Allergies Allergies Allergy/AdvReac Type Severity Reaction Status Date / Time codeine Allergy Verified 06/24/24 19:33 Visit Medications Hydrocodone Bitart/Acetaminophen (Hydrocodone/Apap 5/325 Tablet) 1 tab PO Q4HR PRN PRN Reason: PAIN SCALE 4-6 (Moderate Stop: 02/22/25 20:39 Famotidine (Famotidine Inj 10 Mg/Ml Vial 2 Ml) 20 mg IVP Q12HR JAYMIE Stop: 03/19/25 20:59 Vancomycin HCl 2,000 mg/ (Sodium Chloride) 500 mls @ 150 mls/hr IV X1 ONE Stop: 02/17/25 22:04 Last Admin: 02/17/25 20:33 Dose: 150 mls/hr Lactated Ringer's (Lactated Ringers) 1,000 mls @ 125 mls/hr IV .Q8H JAYMIE Stop: 03/19/25 20:44 Morphine Sulfate (Morphine Sulf Inj 4 Mg/Ml Vial) 1 mg IVP Q4HR PRN PRN Reason: PAIN SCALE 7-10 (Severe Stop: 02/22/25 20:39 Ondansetron HCl (Ondansetron Inj 2 Mg/Ml Inj 2 Ml) 4 mg IVP Q6H PRN; Protocol PRN Reason: NAUSEA OR VOMITING Stop: 03/19/25 20:39 Sodium Chloride (Sodium Chloride Rt 10% 15 Ml Nebu) 5 ml INH X1 ONE Stop: 02/17/25 20:45 Discontinued Medications Cefepime HCl 1 gm/ Sodium (Chloride) 50 mls @ 100 mls/hr IV X1 ONE Stop: 02/17/25 18:55 Last Infusion: 02/17/25 20:01 Dose: Infused Lactated Ringer's (Lactated Ringers) 2,463 mls @ 2,463 mls/hr 30 ml/kg infuse over 60 min (2463 ml) IV .Q1H ONE Stop: 02/17/25 20:29 Last Admin: 02/17/25 19:56 Dose: 2,463 mls/hr Pharmacy Consult (Vancomycin Pharmacy To Dose 1 Each Each) 1 each IV QDAY PRN PRN Reason: PER PROTOCOL Stop: 02/17/25 18:31 Assessment & Plan Plan 69yo female with a history of epilepsy, HTN, HLD, DM, anoxic brain injury s/p trach and PEG tube brought in from subacute presents to the ED for complaints of shortness of breath and fever x today. Admitted for sepsis 2/2 pneumonia. #Ventilator associated Pneumonia #Acute hypercapnic respiratory failure #Lactic acidosis Patient came in and found to have 2 or more SIRS criteria and was evaluated for sepsis. However, based upon further work-up, sepsis was ruled out. HR 104 RR 24 T 102.6F with IV fluids and antibiotics resolved to HR 89 RR 34 T 97.3F. Brought in from subacute floor for SOB and fever. Physical exam revealed left lung lobe rhonchi. Procal 1.12. Lactic acid 4.6 --> 4.0 with IV fluids. CXR fairly diffuse bilateral pneumonia. Respiratory therapist has been suctioning the patient multiple times. Reeived 2.4 L bolus in ED on maintenance fluids currently. Plan: -Vancomycin (02/17 - -Cefepime 1g IV Q8HR (02/17 - -Sputum cx:___ -Blood cx:____ (ordered after first dose of Abx) -MRSA nasal screen:____ -Duoneb 3ml INH Q2HR PRN -IVF LR maintenance ---- Subacute Hx/Meds from Subacute ---- #DM type II Plan: -Glargine 8 unit SC QD -ISS #Epilepsy Plan: -Keppra 1g BID -Valproic acid 500mg TID -Buspar 10mg BID (anxiety) -Diazepam 5 mg IM #HTN Not hypertensive on admission or exam. No treatment indicated from subacute floor. Plan: -Consider PRNs if patient becomes hypertensive #HLD Plan: -Atorvastatin 40mg HS #Chronic normocytic anemia Health Maintenance: Code status: DNR/DNI DVT prophylaxis: Lovenox 40mg GI prophylaxis: Famotidine Diet: NPO other than GTubes Hobson: Yes Lines: PIV Supplemental O2: Ventilator Disposition: Admitted to [facility] for sepsis r/o and pneumonia Patient seen and reviewed with attending Dr. Nolen. Note written by Herman Magallon MD PGY-1 Attending Provider Attestation/Addendum After examination of the patient and review of the clinical data I feel that this patient needs admission to the hospital for further treatment/evaluation. Plan of care discussed with patient and is in agreement. I Andrew Nolen MD, attest that I was physically present for hu portions of evaluation, and examined patient, labs and imagings and plan of care were discussed with IM residents team, and I agree with the findings and plans documented above.
[2025-02-17 22:00] LABS: Reflex Lactate? Y
[2025-02-17] MEDS: Artificial Tears 225 DROP/15 ML BTL BOTH EYES (22:28)
[2025-02-17] MEDS: levETIRAcetam LIQD 500 MG/5 ML UDC 1000 MG GT (22:29)
[2025-02-17] MEDS: FAMOTIDINE INJ 10 MG/ML VIAL 2 ML 20 MG IVP (22:29)
[2025-02-17] MEDS: VALPROIC ACID SYRUP 250 MG/5 ML UDC 500 MG GT (22:29)
[2025-02-17] MEDS: ASCORBIC ACID 250 MG TABLET 500 MG GT (22:30)
[2025-02-17] MEDS: ATORVASTATIN CALCIUM 20 MG TABLET 40 MG GT (22:30)
[2025-02-17] MEDS: CHOLECALCIFEROL (Vitamin D3) 1,000 IU TABLET 1000 IU GT (22:30)
[2025-02-17 22:40] LABS: Lactic Acid, 3 HR 4.0 mMol/L (0.4-2.0)
[2025-02-18] VITALS (11 sets, daily range): BP systolic 97–122; BP diastolic 52–76; PULSE 68–103; RESP 13–34; TEMP 35.6–37; O2SAT 94–99; BMI 30.2
[2025-02-18] MEDS: MORPHINE SULF INJ 4 MG/ML VIAL 1 MG IVP (02:54)
[2025-02-18] MEDS: RINGERS LACTATED 1000 ML 1,000 ML 125 ML IV (03:05)
[2025-02-18] MEDS: CEFEPIME INJ 1 GM in SODIUM CHLORIDE 0.9% (Popper) 50 ML IV (05:11)
[2025-02-18] MEDS: VALPROIC ACID SYRUP 250 MG/5 ML UDC 500 MG GT ×3 (05:11→21:16)
[2025-02-18 06:09] LABS: Basophils # (Auto) 0.1 Thou/mm3 (0.0-0.2); Basophils % (Auto) 0 % (0-2.5); Eosinophils # (Auto) 0.2 Thou/mm3 (0.0-0.5); Eosinophils % (Auto) 0 % (0-10); Hematocrit 24.2 % (36.0-46.0); Immature Granulocytes Auto 1.13 Thou/mm3 (0.00-0.00); Lymphocytes # (Auto) 3.6 Thou/mm3 (1.0-4.8); Lymphocytes % (Auto) 7 % (10-50); Mean Corpuscular HGB Conc 32.2 g/dl (31.0-37.0); Mean Corpuscular Hemoglobin 31.5 pg (25.0-35.0); Mean Corpuscular Volume 98 fL (80-100); Monocytes # (Auto) 5.3 Thou/mm3 (0.0-0.8); Monocytes % (Auto) 11 % (0-12); Neutrophils # (Auto) 39.0 Thou/mm3 (1.8-7.7); Neutrophils % (Auto) 79 % (37-80); Nucleated Red Blood Cell # 0.02 Thou/mm3 (0.00-0.00); Nucleated Red Blood Cell % 0 /100 WBC (0); Platelet Count 393 Thou/mm3 (140-440); RDW Standard Deviation 61.8 fL (36.4-46.3); Red Blood Count 2.48 Miln/mm3 (4.00-5.20)
[2025-02-18 06:24] LABS: Alanine Aminotransferase 8 U/L (10-49); Albumin, Serum 3.7 gm/dL (3.4-4.8); Albumin/Globulin Ratio 1.3 (1.2-2.2); Anion Gap 10 (7-16); Aspartate Amino Transferase < 10 U/L (0-34); BUN/Creatinine Ratio 17 Ratio (12-20); Bilirubin,Total 0.3 mg/dL (0.3-1.2); Blood Urea Nitrogen 10 mg/dL (9-23); Calcium 9.5 mg/dL (8.3-10.6); Calcium (Corrected) 9.7 mg/dL (8.5-10.1); Carbon Dioxide 29.3 mMol/L (20.0-31.0); Chloride 101 mMol/L (98-107); Creatinine (Component) 0.6 mg/dL (0.6-1.3); Estimated Creatinine Clearance 92.5 mL/min (>60); Globulin 2.8 gm/dL (2.3-3.5); Glucose 117 mg/dL (74-106); Magnesium 1.7 mg/dL (1.6-2.6); Osmolality,Calculated 279 (275-295); Phosphorous 3.3 mg/dL (2.4-5.1); Potassium 4.4 mMol/L (3.4-5.1); Sodium 140 mMol/L (136-145); Total Protein 6.5 gm/dL (5.7-8.2); eGFR > 60 See Note
[2025-02-18 06:29] LABS: Hemoglobin 7.8 g/dL (12.0-16.0); White Blood Count 49.3 Thou/mm3 (3.6-11.0)
[2025-02-18 06:55] LABS: Alkaline Phosphatase 52 U/L (46-116)
[2025-02-18] MEDS: VANCOMYCIN/NS 750 MG IVPB 750 MG/150 ML BAG 150 MG IV ×2 (07:31→22:24)
--- NOTE | 2025-02-18 07:37 | XR_ITS ---
Examination: Abdomen AP single view Technique: AP portable supine abdomen, single view Exam date and time: February 18, 2025, 0753 hours INDICATIONS: Abdominal distention today, history C. difficile FINDINGS: Gastrostomy tube satisfactory position Moderate stool throughout the colon No obstruction Severe osteopenia Old fracture right inferior pubic ramus Hips appear intact with mild bilateral hip osteoarthritis Prominent lumbar levoscoliosis IMPRESSION: Nonobstructive bowel gas pattern
--- NOTE | 2025-02-18 07:45 | PC.NURSE ---
Dr. Wells confirms order for contact precautions for this pt. for Cdiff rule out. states pt. had it in the past and may not have been properly treated. aware that pt. on IV vanco, orders to give newly ordered PO vanco and IV vanco. aware that pt. stools are not watery and lab will not accept specimen if it is not water like in consistency.
[2025-02-18] MEDS: Artificial Tears 225 DROP/15 ML BTL BOTH EYES ×2 (08:46→21:19)
[2025-02-18] MEDS: FAMOTIDINE INJ 10 MG/ML VIAL 2 ML 20 MG IVP ×2 (08:47→21:19)
[2025-02-18] MEDS: ASCORBIC ACID 250 MG TABLET 500 MG GT ×2 (08:47→21:19)
[2025-02-18] MEDS: FERROUS SULF 325 MG TABLET PO ×2 (08:47→21:19)
[2025-02-18] MEDS: ASPIRIN 81 MG CHEW GT (08:48)
[2025-02-18] MEDS: levETIRAcetam LIQD 500 MG/5 ML UDC 1000 MG GT ×2 (08:48→21:16)
[2025-02-18] MEDS: ENOXAPARIN SOD INJ 40 MG/0.4 ML SYRINGE SC (08:48)
[2025-02-18] MEDS: SODIUM CHLORIDE 1 GM TABLET GT (08:48)
[2025-02-18] MEDS: CHOLECALCIFEROL (Vitamin D3) 1,000 IU TABLET 1000 IU GT ×2 (08:48→21:19)
--- NOTE | 2025-02-18 09:47 | ESPR_ITS ---
<Statement entered by Vika Sunshine MD - 02/18/25 17:53> Patient was seen and examined at bedside. I agree on the assessment and plan on this note as documented by resident Etta Manley DO PGY1. 69-year-old female with past medical history as below admitted for sepsis secondary to community-acquired pneumonia. Patient has significantly elevated white count, history of C. difficile, we will start patient on vancomycin, hold bowel regimen. Will obtain CT chest abdomen pelvis to assess pneumonia, there is possibility of pulmonary edema considering patient did have bilateral lower extremity edema we will follow pneumonia CT chest, will assess abdomen on CT considering patient had significant grimacing on physical exam and voluntary guarding, KUB done this morning showed bowel gas pattern. Will continue IV cefepime and vancomycin, follow cultures/MRSA nares. Otherwise all home medication was resumed, we will continue to patient. Family was updated on current condition via telephone as requested by nursing. Case discussed with attending Dr. Ivelisse Peñaloza MD PGY-2 Documentation for date of: 02/18/25 Subjective Subjective Interval history: Patient was seen and examined at bedside. No acute events took place overnight. Patient has remained afebrile since fever of 102.6 at presentation. According to nurse, patient had a dark pasty stool, not diarrhea, but given history of ESBL chronic patient placed on contact precautions and C. difficile stool test ordered. Patient on mechanical ventilation and satting 98% on FiO2 30%, RR 27- 32. Called sister Suzie Aburto at [phone] and left a voicemail to call back to the hospital to reach this provider for updates related to patient's care. Exam Vital Signs Temp Pulse Resp BP Pulse Ox O2 Del Method FiO2 96.1 F L 79 27 H 97/56 L 98 Mechanical Ventilation 30 02/18/25 08:00 02/18/25 08:00 02/18/25 08:00 02/18/25 08:00 02/18/25 08:00 02/18/25 08:00 02/18/25 06:49 Narrative Exam GENERAL APPEARANCE: AOx0. NAD, on ventilator. Noncommunicative. Trach'd and PEG'd HEENT: Normocephalic atraumatic, no facial trauma, neck is supple. Lids/conjunctiva normal. Mucous membranes moist, nares normal, lips/teeth normal uvula midline without oral pharyngeal erythema, exudate or swelling TMs normal bilaterally. No lymphangitis/lymphedema. CARDIAC: Regular rate and rhythm, S1+S2 heard. No murmurs, rubs, or gallops noted RESPIRATORY: mechanical ventilation, no tripod position, no accessory muscle use. Rhonchi left lung lobe, no wheezing no crackles ABDOMINAL: NBS. Soft, ND/NT. No evidence of fluid wave. No pulsatile masses on exam, rebound tenderness, Escamilla sign or pain over Mcburney's point. +PEG tube MUSCLES/EXTREMITIES: No abnormal range of motion. +2 pedal edema DERM: Warm, pink and dry. No rashes, dermatoses, petechiae or lesions. NEUROLOGICAL: Speech is clear and appropriate. Normal level of consciousness. Gait and coordination are normal. 5/5 strength in all extremities. PSYCH: Normal mood and affect. Judgement/competence is appropriate Objective Labs 02/18/25 05:27 02/19/25 04:50 Labs: Laboratory Results - last 24 hr 02/17/25 02/17/25 02/17/25 17:53 18:57 18:58 WBC RBC Hgb Hct MCV MCH MCHC RDW Std Deviation Plt Count Neut % (Auto) Lymph % (Auto) [place] % (Auto) Eos % (Auto) Baso % (Auto) Neut # (Auto) Lymph # (Auto) [place] # (Auto) Eos # (Auto) Baso # (Auto) Immature Gran # (Auto) Absolute Nucleated RBC Immature Gran % Nucleated RBC % Puncture Site ABG pH ABG pCO2 ABG pO2 ABG HCO3 ABG O2 Saturation ABG Base Excess FiO2 Sodium 138 Potassium 3.9 Chloride 99 Carbon Dioxide 25.6 Anion Gap 13 BUN 12 Creatinine 0.7 Estim Creat Clear Calc 79.1 eGFR > 60 BUN/Creatinine Ratio 17 Glucose 123 H Calculated Osmolality 276 Lactic Acid 4.6 H* Calcium 9.5 Corrected Calcium 9.5 Phosphorus Magnesium Total Bilirubin 0.2 L AST 39 H ALT 10 Alkaline Phosphatase 66 Troponin I 0.022 Total Protein 7.4 Albumin 4.2 Globulin 3.2 Albumin/Globulin Ratio 1.3 Ur Collection Type Catheter Urine Color Yellow Urine Clarity Clear Urine pH 6.0 Ur Specific [place] 1.019 Urine Protein Negative Urine Glucose (UA) Negative Urine Ketones Trace Urine Blood Negative Urine Nitrite Negative Urine Bilirubin Negative Urine Urobilinogen (Auto) Negative Ur Leukocyte Esterase Negative Urine RBC < 1 Urine WBC 1 Ur Squamous Epith Cells 0 Urine Bacteria None 02/17/25 02/17/25 02/18/25 20:07 22:21 05:27 WBC 49.3 H* D RBC 2.48 L Hgb 7.8 L Hct 24.2 L MCV 98 MCH 31.5 MCHC 32.2 RDW Std Deviation 61.8 H Plt Count 393 D Neut % (Auto) 79 Lymph % (Auto) 7 L [place] % (Auto) 11 Eos % (Auto) 0 Baso % (Auto) 0 Neut # (Auto) 39.0 H Lymph # (Auto) 3.6 [place] # (Auto) 5.3 H Eos # (Auto) 0.2 Baso # (Auto) 0.1 Immature Gran # (Auto) 1.13 H Absolute Nucleated RBC 0.02 H Immature Gran % 2 H Nucleated RBC % 0 Puncture Site Left Radial ABG pH 7.38 ABG pCO2 51 H ABG pO2 90 ABG HCO3 30 H ABG O2 Saturation 99 H ABG Base Excess 4 H FiO2 30 Sodium 140 Potassium 4.4 D Chloride 101 Carbon Dioxide 29.3 Anion Gap 10 BUN 10 Creatinine 0.6 Estim Creat Clear Calc 92.5 eGFR > 60 BUN/Creatinine Ratio 17 Glucose 117 H Calculated Osmolality 279 Lactic Acid 4.0 H Calcium 9.5 Corrected Calcium 9.7 Phosphorus 3.3 Magnesium 1.7 Total Bilirubin 0.3 AST < 10 ALT 8 L Alkaline Phosphatase 52 D Troponin I Total Protein 6.5 Albumin 3.7 D Globulin 2.8 Albumin/Globulin Ratio 1.3 Ur Collection Type Urine Color Urine Clarity Urine pH Ur Specific [place] Urine Protein Urine Glucose (UA) Urine Ketones Urine Blood Urine Nitrite Urine Bilirubin Urine Urobilinogen (Auto) Ur Leukocyte Esterase Urine RBC Urine WBC Ur Squamous Epith Cells Urine Bacteria ABG Interpretation ABG results: 02/17/25 20:07 ABG pH 7.38 ABG pCO2 51 H ABG pO2 90 ABG HCO3 30 H ABG O2 Saturation 99 H ABG Base Excess 4 H Quality Measures Quality Measures sepsis Current suspected stage: ruled out Possible source: pulmonary Blood cultures ordered: yes Antibiotic ordered: Yes Advance care planning discussed with:: sibling Assessment & Plan Assessment Current Active Medications: Generic Name Dose Route Start Last Admin Trade Name Freq PRN Reason Stop Dose Admin Acetaminophen 650 mg 02/17/25 20:47 Acetaminophen 325 Mg Tablet NG 03/19/25 20:46 Q4HR PRN Fever > 100.4 Acetaminophen 650 mg 02/17/25 20:47 Acetaminophen 325 Mg Tablet NG 03/19/25 20:46 Q6HR PRN PAIN 1-3 Hydrocodone Bitart/Acetaminophen 1 tab 02/17/25 20:40 Hydrocodone/Apap 5/325 Tablet PO 02/22/25 20:39 Q4HR PRN PAIN SCALE 4-6 (Moderate Albuterol/Ipratropium 3 ml 02/17/25 20:47 Albuterol/Ipratropium (Duoneb) Rt Ericka 3 Ml Nebu INH 03/19/25 20:46 Q2HR PRN WHEEZING Artificial Tears 2 drop 02/17/25 21:00 02/18/25 08:46 Artificial Tears 225 Drop/15 Ml Btl BOTH EYES 03/19/25 20:59 2 drops BID JAYMIE Administration Ascorbic Acid 500 mg 02/17/25 21:00 02/18/25 08:47 Ascorbic Acid 250 Mg Tablet GT 03/19/25 20:59 500 mg BID JAYMIE Administration Aspirin 81 mg 02/18/25 09:00 02/18/25 08:48 Aspirin 81 Mg Chew GT 03/20/25 08:59 81 mg QDAY JAYMIE Administration Atorvastatin Calcium 40 mg 02/17/25 21:00 02/17/25 22:30 Atorvastatin Calcium 20 Mg Tablet GT 03/19/25 20:59 40 mg HS JAYMIE Administration Bisacodyl 10 mg 02/17/25 20:47 Bisacodyl 10 Mg Supp NM 03/19/25 20:46 On Hold: 02/18/25 07:42 PRN PRN No BM Per Bowel Management Protocol Protocol Buspirone HCl 10 mg 02/17/25 21:00 02/18/25 08:48 Buspirone Hcl 5 Mg Tablet GT 03/19/25 20:59 10 mg BID JAYMIE Administration Carbamide Peroxide 5 drop 02/17/25 21:00 02/17/25 22:30 Carbamide Peroxide Otic Ericka 15 Ml Btl BOTH EARS 03/19/25 20:59 Not Given Q61D JAYMIE Diazepam 5 mg 02/17/25 20:47 Diazepam Inj 5 Mg/Ml Vial 2 Ml IM [id number] PRN Seizures Enoxaparin Sodium 40 mg 02/18/25 09:00 02/18/25 08:48 Enoxaparin Sod Inj 40 Mg/0.4 Ml Syringe SC 03/04/25 08:59 40 mg QDAY JAYMIE Administration Famotidine 20 mg 02/17/25 21:00 02/18/25 08:47 Famotidine Inj 10 Mg/Ml Vial 2 Ml IVP 03/19/25 20:59 20 mg Q12HR JAYMIE Administration Ferrous Sulfate 325 mg 02/18/25 09:00 02/18/25 08:47 Ferrous Sulf 325 Mg Tablet PO 03/20/25 08:59 325 mg BID JAYMIE Administration Glucagon 1 mg 02/17/25 20:47 Glucagon Inj 1 Mg Vial SC Q15MIN PRN Hypoglycemia Guaifenesin 300 mg 02/17/25 20:47 Guaifenesin Syrup 200 Mg/10 Ml Udc GT 03/19/25 20:46 Q6HR PRN COUGH Protocol Lactated Ringer's 1,000 mls @ 125 mls/hr 02/17/25 20:45 02/18/25 05:10 Lactated Ringers IV 03/19/25 20:44 Not Given .Q8H JAYMIE Cefepime HCl 2 gm/ Sodium 50 mls @ 100 mls/hr 02/18/25 06:30 02/18/25 07:10 Chloride IV 02/25/25 06:29 Not Given Q8HR JAYMIE Vancomycin/Sodium Chloride 750 mg in 150 mls @ 150 mls/hr 02/18/25 07:15 02/18/25 07:31 Vancomycin/Ns 750 Mg Ivpb IV 02/25/25 07:14 150 mls/hr BID@1000,2200 JAYMIE Administration Protocol Insulin Human Lispro 0 unit 02/18/25 06:00 02/18/25 05:16 Insulin Lispro (Admelog) 1 Unit/0.01 Ml Unit SC 03/20/25 05:59 Not Given 18 JAYMIE Levetiracetam 1,000 mg 02/17/25 21:00 02/18/25 08:48 Levetiracetam Liqd 500 Mg/5 Ml Udc GT 03/19/25 20:59 1,000 mg BID JAYMIE Administration Magnesium Hydroxide 30 ml 02/17/25 20:47 Milk Of Magnesia Susp 30 Ml Udc GT 03/19/25 20:46 On Hold: 11/25/25 07:41 PRN PRN CONSTIPATION Protocol Morphine Sulfate 1 mg 02/17/25 20:40 02/18/25 02:54 Morphine Sulf Inj 4 Mg/Ml Vial IVP 02/22/25 20:39 1 mg Q4HR PRN Administration PAIN SCALE 7-10 (Severe Non-Formulary Medication 8 unit 02/18/25 18:00 Insulin Glargine-Yfgn SC 03/20/25 17:59 DAILY@1800 [facility] Non-Formulary Medication 133 ml 02/17/25 20:47 Sodium Phosphates [Fleet Enema] NM PRN PRN No BM Per Bowel Management Protocol Ondansetron HCl 4 mg 02/17/25 20:40 Ondansetron Inj 2 Mg/Ml Inj 2 Ml IVP 03/19/25 20:39 Q6H PRN NAUSEA OR VOMITING Protocol Pharmacy Consult 1 each 02/18/25 09:00 Vancomycin Pharmacy To Dose 1 Each Each IV 03/20/25 08:59 QDAY PRN SEPSIS PROTOCOL Polyethylene Glycol 17 gm 02/17/25 20:47 Polyethylene Glycol 17 Gm Packet GT 03/19/25 20:46 On Hold: 02/18/25 07:41 PRN PRN No BM Per Bowel Management Protocol Sodium Chloride 1 gm 02/18/25 09:00 02/18/25 08:48 Sodium Chloride 1 Gm Tablet GT 03/20/25 08:59 1 gm QDAY JAYMIE Administration Valproic Acid 500 mg 02/17/25 22:00 02/18/25 05:11 Valproic Acid Syrup 250 Mg/5 Ml Udc GT 03/19/25 21:59 500 mg TID JAYMIE Administration Vancomycin HCl 125 mg 02/18/25 09:15 Vancomycin Oral Solution 25 Mg/Ml GT 02/25/25 09:14 QID [facility] Protocol Vitamin D 1,000 iu 02/17/25 21:00 02/18/25 08:48 Cholecalciferol (Vitamin D3) 1,000 Iu Tablet GT 03/19/25 20:59 1,000 iu BID JAYMIE Administration Plan 69yo female with a history of epilepsy, HTN, HLD, DM, anoxic brain injury s/p trach and PEG tube brought in from subacute presents to the ED for complaints of shortness of breath and fever x today. Admitted for sepsis 2/2 pneumonia. #Ventilator associated Pneumonia #Acute hypercapnic respiratory failure #Lactic acidosis # Leukocytosis Patient came in and found to have 2 or more SIRS criteria and was evaluated for sepsis. However, based upon further work-up, sepsis was ruled out. HR 104 RR 24 T 102.6F with IV fluids and antibiotics resolved to HR 89 RR 34 T 97.3F. Brought in from subacute floor for SOB and fever. Physical exam revealed left lung lobe rhonchi. Procal 1.12. Lactic acid 4.6 --> 4.0 with IV fluids. CXR fairly diffuse bilateral pneumonia. Respiratory therapist has been suctioning the patient multiple times. Reeived 2.4 L bolus in ED on maintenance fluids currently. ? Discontinued vancomycin Kapseal as patient does not eat orally, and ordered the same antibiotic in liquid form to be given through the PEG tube. ? Gram stain of sputum culture revealed GNR, pending final speciation Plan: -Vancomycin (02/17 - -Cefepime 1g IV Q8HR (02/17 - -Sputum cx:___ -Blood cx:____ (ordered after first dose of Abx) -MRSA nasal screen:____ -Duoneb 3ml INH Q2HR PRN -IVF LR maintenance #hx of C Difficile diarrhea Patient was diagnosed with Clostridium difficle diarrhea according to records from 4 days ago. KUB showed nonobstructive bowel gas pattern, with moderate stool throughout the colon. -Ordered C. difficile stool antigen test to evaluate possibility of untreated infection. -Placed patient on contact precautions. - Ordered follow-up CT abdomen/pelvis/chest for assessment of bowel inflammation and evaluation of pneumonia -Discontinued bowel regimen including MiraLAX and senna to rule out false positive test result #DM type II Plan: -Glargine 8 unit SC QD -ISS #Epilepsy Plan: -Keppra 1g BID -Valproic acid 500mg TID -Buspar 10mg BID (anxiety) -Diazepam 5 mg IM #HTN Not hypertensive on admission or exam. No treatment indicated from subacute floor. Plan: -Consider PRNs if patient becomes hypertensive #HLD Plan: -Atorvastatin 40mg HS #Chronic normocytic anemia #GI bleed? hemoglobin dropped from 9.0 at presentation to 7.8. Nurse noted previous report of dark pasty stool. ?FOBT ordered Health Maintenance: Code status: DNR/DNI DVT prophylaxis: Lovenox 40mg GI prophylaxis: Famotidine Diet: NPO other than GTubes [place]: Yes Lines: PIV Supplemental O2: Ventilator [facility]: [facility] sepsis r/o and pneumonia This case was discussed with my attending physician, Dr. Sam, and senior resident, Dr Sunshine. Even though this this note was carefully revised there may still be minor errors in inhalation therapy aides teacher due to voice recognition software. Etta Manley DO PGY I Attending Provider Attestation/Addendum I, Ivelisse Sam DO, attest that I was physically present for the hu portions of the service and evaluated the patient with the resident and I reviewed and discussed the case with the resident and agree with the resident's findings and plans of care as documented above Patient seen and evaluated this Am. Pt is able to track with eyes and nod yes to questions. Patient grimaces with palpation of the abdomen that is soft, but tender. Scattered rhonchi noted on exam of b/l lung boucher. Minimal secretions noted from trach. Patient has hx of cdiff on previous admission. Concern for recurrent c.diff, particularly with significantly elevated leukocytosis of 49. Will start patient on vancomycin PO in addition for empiric abx for pneumonia. Will obtain CT abd/pelvis to assess for possible colitis due to pain. C.diff stool studies ordered.
[2025-02-18] MEDS: VANCOMYCIN 25 MG/ML 125 MG GT ×3 (10:37→21:17)
--- NOTE | 2025-02-18 10:41 | XR_ITS ---
Examination: CT chest, without intravenous contrast. CT abdomen, without intravenous contrast. CT pelvis, without intravenous contrast. 2-D sagittal and coronal reconstructions. 3-D reconstructions. Date and time of exam: February 18, 2025, 1144 hours, comparison November 10, 2024 INDICATIONS: Congestion abdominal pain this week CTDI vol (mgy) 11.6 DLP (MGycm) 732 Technique: Multiple CT images, 3.0 mm slice thickness, obtained chest, abdomen, pelvis, with the high-resolution 64 slice scanner.. Sagittal and coronal 2-D reconstructions are obtained. 3-D reconstructions Low dose protocols were performed. One or more of the following dose reduction techniques were used; automated exposure control, adjustment of the mA and/or KV according to patient size, use of iterative reconstruction technique. Findings: No thoracic aortic aneurysmal dilatation Pulmonary artery segments are not enlarged No paratracheal tracheobronchial or bronchopulmonary adenopathy Tracheal tube tip 3.5 cm above michael Prominent vascular congestion with early perihilar edema Pneumonia left base Fatty infiltration throughout the liver Spleen not enlarged No pancreatic mass No gallstones No renal or ureteral calculi, no hydronephrosis Aortic calcification no aneurysmal dilatation Normal appendix Colonic diverticulosis Acute diverticulitis junction distal descending colon and sigmoid colon Soft tissue densities in the subcutaneous fat anterior pelvis which may represent cellulitis Significant thickening of the urinary bladder wall Atrophic uterus IMPRESSION: Mild heart failure Pneumonia left base Acute diverticulitis junction distal descending colon and sigmoid colon, no peridiverticular abscess Significant thickening of the urinary bladder wall, differential would include cystitis
[2025-02-18] MEDS: CEFEPIME INJ 2 GM in SODIUM CHLORIDE 0.9% (Popper) 50 ML IV (15:17)
[2025-02-18 15:52] LABS: Path Review Blood Smear Sent to Pathologist
--- NOTE | 2025-02-18 15:52 | PC.NURSE ---
Confirmed with Janina Dietitian to start tube feeds at 58 ml/hr with 30 ml/hr water flushes. Dr. Wells orders to start tube feeds now.
[2025-02-18] MEDS: PIPER/TAZO 3.375 GM PREMIX 3.375 GM/50 ML BAG IV ×2 (19:21→22:57)
--- NOTE | 2025-02-18 20:08 | PC.NURSE ---
DR. ANNE MADE AWARE OF CT A/P RESULTS. HOLD TF FOR NOW.
[2025-02-18] MEDS: ATORVASTATIN CALCIUM 20 MG TABLET 40 MG GT (21:19)
[2025-02-19] VITALS (11 sets, daily range): BP systolic 90–130; BP diastolic 67–74; PULSE 59–100; RESP 17–37; TEMP 36.1–36.9; O2SAT 95–99; BMI 29.7
[2025-02-19 01:18] LABS: OBS Developer Expiration Date 02-28-2027; OBS Developer Lot # 4-24-551749; OBS QC OK? Yes; Occult Blood, Stool Positive (Negative)
[2025-02-19] MEDS: PIPER/TAZO 3.375 GM PREMIX 3.375 GM/50 ML BAG IV ×3 (05:24→21:17)
[2025-02-19] MEDS: VALPROIC ACID SYRUP 250 MG/5 ML UDC 500 MG GT ×3 (05:24→21:17)
[2025-02-19 06:36] LABS: Alanine Aminotransferase 8 U/L (10-49); Albumin, Serum 3.5 gm/dL (3.4-4.8); Albumin/Globulin Ratio 1.3 (1.2-2.2); Alkaline Phosphatase 53 U/L (46-116); Anion Gap 12 (7-16); Aspartate Amino Transferase 38 U/L (0-34); BUN/Creatinine Ratio 19 Ratio (12-20); Bilirubin,Total 0.3 mg/dL (0.3-1.2); Blood Urea Nitrogen 13 mg/dL (9-23); Calcium 8.4 mg/dL (8.3-10.6); Calcium (Corrected) 8.8 mg/dL (8.5-10.1); Carbon Dioxide 28.1 mMol/L (20.0-31.0); Chloride 102 mMol/L (98-107); Creatinine (Component) 0.7 mg/dL (0.6-1.3); Estimated Creatinine Clearance 77.1 mL/min (>60); Globulin 2.8 gm/dL (2.3-3.5); Glucose 86 mg/dL (74-106); Magnesium 2.0 mg/dL (1.6-2.6); Osmolality,Calculated 282 (275-295); Phosphorous 4.3 mg/dL (2.4-5.1); Potassium 4.7 mMol/L (3.4-5.1); Sodium 142 mMol/L (136-145); Total Protein 6.3 gm/dL (5.7-8.2); eGFR > 60 See Note
[2025-02-19 07:30] LABS: Basophils # (Auto) 0.1 Thou/mm3 (0.0-0.2); Basophils % (Auto) 0 % (0-2.5); Eosinophils # (Auto) 0.5 Thou/mm3 (0.0-0.5); Eosinophils % (Auto) 2 % (0-10); Hematocrit 23.0 % (36.0-46.0); Immature Granulocytes Auto 0.29 Thou/mm3 (0.00-0.00); Lymphocytes # (Auto) 2.7 Thou/mm3 (1.0-4.8); Lymphocytes % (Auto) 11 % (10-50); Mean Corpuscular HGB Conc 31.3 g/dl (31.0-37.0); Mean Corpuscular Hemoglobin 30.4 pg (25.0-35.0); Mean Corpuscular Volume 97 fL (80-100); Monocytes # (Auto) 1.8 Thou/mm3 (0.0-0.8); Monocytes % (Auto) 7 % (0-12); Neutrophils # (Auto) 18.4 Thou/mm3 (1.8-7.7); Neutrophils % (Auto) 78 % (37-80); Nucleated Red Blood Cell # 0.02 Thou/mm3 (0.00-0.00); Nucleated Red Blood Cell % 0 /100 WBC (0); Platelet Count 242 Thou/mm3 (140-440); RDW Standard Deviation 64.0 fL (36.4-46.3); Red Blood Count 2.37 Miln/mm3 (4.00-5.20); White Blood Count 23.7 Thou/mm3 (3.6-11.0)
[2025-02-19 08:05] LABS: Hemoglobin 7.2 g/dL (12.0-16.0)
[2025-02-19 08:30] LABS: Vancomycin,Trough 17.4 mcg/mL (5.0-10.0)
[2025-02-19] MEDS: ASCORBIC ACID 250 MG TABLET 500 MG GT ×2 (09:32→21:18)
[2025-02-19] MEDS: ENOXAPARIN SOD INJ 40 MG/0.4 ML SYRINGE SC (09:32)
[2025-02-19] MEDS: CHOLECALCIFEROL (Vitamin D3) 1,000 IU TABLET 1000 IU GT ×2 (09:32→21:19)
[2025-02-19] MEDS: FERROUS SULF 325 MG TABLET PO ×2 (09:33→21:19)
[2025-02-19] MEDS: ASPIRIN 81 MG CHEW GT (09:33)
[2025-02-19] MEDS: FAMOTIDINE INJ 10 MG/ML VIAL 2 ML 20 MG IVP ×2 (09:33→21:20)
[2025-02-19] MEDS: levETIRAcetam LIQD 500 MG/5 ML UDC 1000 MG GT ×2 (09:41→21:17)
[2025-02-19] MEDS: SODIUM CHLORIDE 1 GM TABLET GT (09:52)
[2025-02-19] MEDS: Artificial Tears 225 DROP/15 ML BTL BOTH EYES ×2 (09:54→21:19)
--- NOTE | 2025-02-19 10:12 | ESPR_ITS ---
<Statement entered by Vika Sunshine MD - 02/19/25 19:46> Patient was seen and examined at bedside. I agree on the assessment and plan on this note as documented by resident Dr Etta Manley DO PGY1. 69-year-old female with past medical history as below admitted for fever found to be SIRS positive, tested for C. difficile which came positive today. We will continue p.o. vancomycin, for patient's underlying diverticulitis and suspected pneumonia we will continue with Zosyn, IV vancomycin was discontinued MRSA nasal screen negative. Patient is on minimal ventilator settings, which is discussed with respiratory therapist will consider switching patient to blow-by for trial. Will follow sputum culture results, blood culture have been negative for the last 48 hours. Will continue with IV antibiotics, will continue to monitor. Tube feeds were resumed this morning. Case discussed with attending Dr. Ivelisse Peñaloza MD PGY-2 Documentation for date of: 02/19/25 Subjective Subjective Interval history: Patient was seen and examined at bedside. No acute events took place overnight. Patient was noted to be in distress from mechanical ventilation. SHe has remained afebrile. VSS WNL, oxygen saturation has stayed above 98% on the current vent settings. patient had 1 bowel movement within the past 24 hours, and positive FOBT. CT imaging had shown acute diverticulitis, cefepime switched for Zosyn. [place] C. difficile antigen positive. Patient continued on liquid vancomycin through PEG tube. Patient on contact precautions Exam Vital Signs Temp Pulse Resp BP Pulse Ox O2 Del Method FiO2 96.9 F 60 20 95/69 98 Mechanical Ventilation 30 02/19/25 08:00 02/19/25 08:00 02/19/25 08:00 02/19/25 08:00 02/19/25 08:00 02/19/25 08:00 02/19/25 08:00 Narrative Exam GENERAL APPEARANCE: AOx0. NAD, on ventilator. Pt is able to track with eyes and nod yes to questions. Trach'd and PEG'd HEENT: Normocephalic atraumatic, no facial trauma, neck is supple. Lids/conjunctiva normal. Mucous membranes moist, nares normal, lips/teeth normal uvula midline without oral pharyngeal erythema, exudate or swelling TMs normal bilaterally. No lymphangitis/lymphedema. CARDIAC: Regular rate and rhythm, S1+S2 heard. No murmurs, rubs, or gallops noted RESPIRATORY: mechanical ventilation, no tripod position, no accessory muscle use. Rhonchi of bilateral lung boucher. No wheezing no crackles ABDOMINAL: NBS. Soft, ND/NT. No evidence of fluid wave. No pulsatile masses on exam, rebound tenderness, Escamilla sign or pain over Mcburney's point. Patient grimaces with palpation of the abdomen that is soft, but tender. +PEG tube MUSCLES/EXTREMITIES: No abnormal range of motion. +2 pedal edema DERM: Warm, pink and dry. No rashes, dermatoses, petechiae or lesions. NEUROLOGICAL: Speech is clear and appropriate. Normal level of consciousness. Gait and coordination are normal. 5/5 strength in all extremities. PSYCH: Normal mood and affect. Judgement/competence is appropriate Objective Labs 02/19/25 07:00 02/19/25 04:50 Labs: Laboratory Results - last 24 hr 02/18/25 02/19/25 02/19/25 05:27 00:55 04:50 WBC RBC Hgb Hct MCV MCH MCHC RDW Std Deviation Plt Count Neut % (Auto) Lymph % (Auto) [place] % (Auto) Eos % (Auto) Baso % (Auto) Neut # (Auto) Lymph # (Auto) [place] # (Auto) Eos # (Auto) Baso # (Auto) Immature Gran # (Auto) Absolute Nucleated RBC Immature Gran % Nucleated RBC % Smear Path Review Sent to Pathologist Sodium 142 Potassium 4.7 Chloride 102 Carbon Dioxide 28.1 Anion Gap 12 BUN 13 Creatinine 0.7 Estim Creat Clear Calc 77.1 eGFR > 60 BUN/Creatinine Ratio 19 Glucose 86 Calculated Osmolality 282 Calcium 8.4 Corrected Calcium 8.8 Phosphorus 4.3 Magnesium 2.0 Total Bilirubin 0.3 AST 38 H ALT 8 L Alkaline Phosphatase 53 Total Protein 6.3 Albumin 3.5 Globulin 2.8 Albumin/Globulin Ratio 1.3 Stool Occult Blood Positive A Vancomycin Trough 02/19/25 02/19/25 07:00 07:56 WBC 23.7 H D RBC 2.37 L Hgb 7.2 L Hct 23.0 L MCV 97 MCH 30.4 MCHC 31.3 RDW Std Deviation 64.0 H Plt Count 242 D Neut % (Auto) 78 Lymph % (Auto) 11 [place] % (Auto) 7 Eos % (Auto) 2 Baso % (Auto) 0 Neut # (Auto) 18.4 H Lymph # (Auto) 2.7 [place] # (Auto) 1.8 H Eos # (Auto) 0.5 Baso # (Auto) 0.1 Immature Gran # (Auto) 0.29 H Absolute Nucleated RBC 0.02 H Immature Gran % 1 H Nucleated RBC % 0 Smear Path Review Sodium Potassium Chloride Carbon Dioxide Anion Gap BUN Creatinine Estim Creat Clear Calc eGFR BUN/Creatinine Ratio Glucose Calculated Osmolality Calcium Corrected Calcium Phosphorus Magnesium Total Bilirubin AST ALT Alkaline Phosphatase Total Protein Albumin Globulin Albumin/Globulin Ratio Stool Occult Blood Vancomycin Trough 17.4 H ABG Interpretation ABG results: 02/17/25 20:07 ABG pH 7.38 ABG pCO2 51 H ABG pO2 90 ABG HCO3 30 H ABG O2 Saturation 99 H ABG Base Excess 4 H Quality Measures Quality Measures VTE prophylaxis and sepsis Current suspected stage: ruled out Possible source: pulmonary Blood cultures ordered: yes Antibiotic ordered: Yes Advance care planning discussed with:: sibling Assessment & Plan Assessment Current Active Medications: Generic Name Dose Route Start Last Admin Trade Name Freq PRN Reason Stop Dose Admin Acetaminophen 650 mg 02/17/25 20:47 Acetaminophen 325 Mg Tablet NG 03/19/25 20:46 Q4HR PRN Fever > 100.4 Acetaminophen 650 mg 02/17/25 20:47 Acetaminophen 325 Mg Tablet NG 03/19/25 20:46 Q6HR PRN PAIN 1-3 Hydrocodone Bitart/Acetaminophen 1 tab 02/17/25 20:40 Hydrocodone/Apap 5/325 Tablet PO 02/22/25 20:39 Q4HR PRN PAIN SCALE 4-6 (Moderate Albuterol/Ipratropium 3 ml 02/17/25 20:47 Albuterol/Ipratropium (Duoneb) Rt Ericka 3 Ml Nebu INH 03/19/25 20:46 Q2HR PRN WHEEZING Artificial Tears 2 drop 02/17/25 21:00 02/19/25 09:54 Artificial Tears 225 Drop/15 Ml Btl BOTH EYES 03/19/25 20:59 1 drops BID JAYMIE Administration Ascorbic Acid 500 mg 02/17/25 21:00 02/19/25 09:32 Ascorbic Acid 250 Mg Tablet GT 03/19/25 20:59 500 mg BID JAYMIE Administration Aspirin 81 mg 02/18/25 09:00 02/19/25 09:33 Aspirin 81 Mg Chew GT 03/20/25 08:59 81 mg QDAY JAYMIE Administration Atorvastatin Calcium 40 mg 02/17/25 21:00 02/18/25 21:19 Atorvastatin Calcium 20 Mg Tablet GT 03/19/25 20:59 40 mg HS JAYMIE Administration Bisacodyl 10 mg 02/17/25 20:47 Bisacodyl 10 Mg Supp AL 03/19/25 20:46 On Hold: 02/18/25 07:42 PRN PRN No BM Per Bowel Management Protocol Protocol Buspirone HCl 10 mg 02/17/25 21:00 02/19/25 09:33 Buspirone Hcl 5 Mg Tablet GT 03/19/25 20:59 10 mg BID JAYMIE Administration Carbamide Peroxide 5 drop 02/17/25 21:00 02/17/25 22:30 Carbamide Peroxide Otic Ericka 15 Ml Btl BOTH EARS 03/19/25 20:59 Not Given Q61D JAYMIE Diazepam 5 mg 02/17/25 20:47 Diazepam Inj 5 Mg/Ml Vial 2 Ml IM [id number] PRN Seizures Enoxaparin Sodium 40 mg 02/18/25 09:00 02/19/25 09:32 Enoxaparin Sod Inj 40 Mg/0.4 Ml Syringe SC 03/04/25 08:59 40 mg QDAY JAYMIE Administration Famotidine 20 mg 02/17/25 21:00 02/19/25 09:33 Famotidine Inj 10 Mg/Ml Vial 2 Ml IVP 03/19/25 20:59 20 mg Q12HR JAYMIE Administration Ferrous Sulfate 325 mg 02/18/25 09:00 02/19/25 09:33 Ferrous Sulf 325 Mg Tablet PO 03/20/25 08:59 325 mg BID JAYMIE Administration Glucagon 1 mg 02/17/25 20:47 Glucagon Inj 1 Mg Vial SC Q15MIN PRN Hypoglycemia Guaifenesin 300 mg 02/17/25 20:47 Guaifenesin Syrup 200 Mg/10 Ml Udc GT 03/19/25 20:46 Q6HR PRN COUGH Protocol Vancomycin/Sodium Chloride 750 mg in 150 mls @ 150 mls/hr 02/18/25 07:15 02/18/25 22:24 Vancomycin/Ns 750 Mg Ivpb IV 02/25/25 07:14 150 mls/hr BID@1000,2200 [facility] Administration Protocol Piperacillin/Tazobactam/Dextrose 3.375 gm in 50 mls @ 12.5 mls/hr 02/18/25 23:00 02/19/25 05:24 Zosyn IV 02/25/25 22:59 12.5 mls/hr Q8HR JAYMIE Administration Protocol Insulin Degludec 8 unit 02/18/25 18:00 02/18/25 17:14 Insulin Degludec 5 Unit/0.05 Ml (Per 5 Units) SC 03/20/25 17:59 Not Given DAILY@1800 [facility] Insulin Human Lispro 0 unit 02/18/25 06:00 02/19/25 05:24 Insulin Lispro (Admelog) 1 Unit/0.01 Ml Unit SC 03/20/25 05:59 Not Given 06,18 [facility] Levetiracetam 1,000 mg 02/17/25 21:00 02/19/25 09:41 Levetiracetam Liqd 500 Mg/5 Ml Udc GT 03/19/25 20:59 1,000 mg BID JAYMIE Administration Magnesium Hydroxide 30 ml 02/17/25 20:47 Milk Of Magnesia Susp 30 Ml Udc GT 03/19/25 20:46 On Hold: 02/18/25 07:41 PRN PRN CONSTIPATION Protocol Morphine Sulfate 1 mg 02/17/25 20:40 02/18/25 02:54 Morphine Sulf Inj 4 Mg/Ml Vial IVP 02/22/25 20:39 1 mg Q4HR PRN Administration PAIN SCALE 7-10 (Severe Ondansetron HCl 4 mg 02/17/25 20:40 Ondansetron Inj 2 Mg/Ml Inj 2 Ml IVP 03/19/25 20:39 Q6H PRN NAUSEA OR VOMITING Protocol Pharmacy Consult 1 each 02/18/25 09:00 Vancomycin Pharmacy To Dose 1 Each Each IV 03/20/25 08:59 QDAY PRN SEPSIS PROTOCOL Polyethylene Glycol 17 gm 02/17/25 20:47 Polyethylene Glycol 17 Gm Packet GT 03/19/25 20:46 On Hold: 02/18/25 07:41 PRN PRN No BM Per Bowel Management Protocol Sodium Chloride 1 gm 02/18/25 09:00 02/19/25 09:52 Sodium Chloride 1 Gm Tablet GT 03/20/25 08:59 1 gm QDAY JAYMIE Administration Sodium Phosphate 133 ml 02/18/25 15:14 Sodium Phos,[place]-Dibasic 133 Ml (Fleet) Enema Btl RC PRN PRN No BM Per Bowel Management Protocol Valproic Acid 500 mg 02/17/25 22:00 02/19/25 05:24 Valproic Acid Syrup 250 Mg/5 Ml Udc GT 03/19/25 21:59 500 mg TID JAYMIE Administration Vancomycin HCl 125 mg 02/18/25 09:15 02/19/25 09:23 Vancomycin Oral Solution 25 Mg/Ml GT 02/25/25 09:14 Not Given QID [facility] Protocol Vitamin D 1,000 iu 02/17/25 21:00 02/19/25 09:32 Cholecalciferol (Vitamin D3) 1,000 Iu Tablet GT 03/19/25 20:59 1,000 iu BID JAYMIE Administration Plan 69yo female with a history of epilepsy, HTN, HLD, DM, anoxic brain injury s/p trach and PEG tube brought in from subacute presents to the ED for complaints of shortness of breath and fever x today. Admitted for sepsis 2/2 pneumonia. #Recurrent C. difficile abdominal infection #hx of C Difficile diarrhea Patient was diagnosed with Clostridium difficle diarrhea according to records from 4 days ago. KUB showed nonobstructive bowel gas pattern, with moderate stool throughout the colon. Discontinued vancomycin capsule as patient does not eat orally, and ordered the same antibiotic in liquid form to be given through the PEG tube. + CTAP showed acute diverticulitis at the junction of the distal descending colon and sigmoid colon, no peridiverticular abscess 02/19: Positive C. difficile stool antigen testing - Vancomycin liquid through PEG (02/17 - - Placed patient on contact precautions. - Discontinued bowel regimen including MiraLAX and senna to rule out false positive test result #Acute diverticulitis #Ventilator associated Pneumonia, left base pneumonia #Acute hypercapnic respiratory failure #Chronic respiratory failure status post tracheostomy on mechanical ventilation #Lactic acidosis #Leukocytosis Patient came in and found to have 2 or more SIRS criteria and was evaluated for sepsis. However, based upon further work-up, sepsis was ruled out. HR 104 RR 24 T 102.6F with IV fluids and antibiotics resolved to HR 89 RR 34 T 97.3F. Brought in from subacute floor for SOB and fever. Physical exam revealed left lung lobe rhonchi. Procal 1.12. Lactic acid 4.6 --> 4.0 with IV fluids. CXR fairly diffuse bilateral pneumonia. Respiratory therapist has been suctioning the patient multiple times. Reeived 2.4 L bolus in ED on maintenance fluids currently. WBC improved to 23.7 (02/19). ? Gram stain of sputum culture revealed GNR, pending final speciation ? Patient was treated with cefepime 1g IV Q8HR (02/17 - 02/18) ? Blood culture negative in 2 out of 2 bottles after 24h ? MRSA screen negative, discontinued IV vancomycin Plan: -Zosyn 3.375 g IV Q8h (02/18 - -Sputum cx:___ -Blood cx:____ (ordered after first dose of Abx) -Duoneb 3ml INH Q2HR PRN -IVF LR maintenance # Insulin-dependent type 2 diabetes mellitus Plan: -Glargine 8 unit SC QD -ISS # Seizure disorder Plan: -Keppra 1g BID -Valproic acid 500mg TID -Buspar 10mg BID (anxiety) -Diazepam 5 mg IM #HTN Not hypertensive on admission or exam. No treatment indicated from subacute floor. Plan: -Consider PRNs if patient becomes hypertensive #HLD Plan: -Atorvastatin 40mg HS #Chronic normocytic anemia #GI bleed? hemoglobin dropped from 9.0 at presentation to 7.8. Nurse noted previous report of dark pasty stool. FOBT positive, the source of bleeding could be pseudomembranous colitis or site of diverticulitis as revealed on CT AP. #Status post PEG tube Tube feeds started, dietitian consulted. Health Maintenance: Code status: DNR/DNI DVT prophylaxis: Lovenox 40mg GI prophylaxis: Famotidine Diet: NPO other than GTubes [place]obs[place]: Yes Lines: PIV Supplemental O2: Ventilator Disposition: Admitted to [facility] for sepsis r/o and pneumonia Attending Provider Attestation/Addendum Jackson, Ivelisse Sam DO, attest that I was physically present for the hu portions of the service and evaluated the patient with the resident and I reviewed and discussed the case with the resident and agree with the resident's findings and plans of care as documented above Patient seen and evaluated this AM. She is resting comfortably and appears to have less abdominal pain on palpation today. Cdiff noted to be positive. She remains on Vancomycin 125mg GT QID. Will need long taper as this is patient's second recurrence. Patient is MRSA negative otherwise. Will DC IV vancomycin. Pneumonia is less likely as patient is not requiring any changes in ventilator settings and does not appear to have thick secretions. Patient with a PEEP of 3 and FiO2 of 30%. Can try to place patient on Blow-by. Will f/u with sputum and blood cultures. Will keep IV zosyn at this time.
--- NOTE | 2025-02-19 10:48 | PC.SS ---
Pt is from [facility]. Pt is non verbal. Pt was admitted for Sesps With Source-Pneumonia. SS spoke to Zainab from [facility] who states pt on 7 day bed hold. Per Zainab, on the Polst form her sister Suzie Ennis is her medical decision maker. Pt is bedbound and total care. Pt is on peg/trach/vent. Pt will return to [facility] upon dc. D/C plan: Return home Next of Kin: Suzie Ennis, sister, phone# [phone] PCP: Dr. Silverio Address: Correct on facesheet
[2025-02-19 12:05] LABS: Clostridium Difficile PCR Positive (Negative)
[2025-02-19] MEDS: VANCOMYCIN 25 MG/ML 125 MG GT ×3 (12:29→21:20)
--- NOTE | 2025-02-19 15:41 | PC.SS ---
Follow up note: On IV antibiotic. Pt will return to [facility].
[2025-02-19] MEDS: INSULIN DEGLUDEC 5 UNIT/0.05 ML (PER 5 UNITS) 8 UNIT SC (18:09)
[2025-02-19] MEDS: ATORVASTATIN CALCIUM 20 MG TABLET 40 MG GT (21:19)
[2025-02-20] VITALS (11 sets, daily range): BP systolic 102–139; BP diastolic 58–77; PULSE 66–101; RESP 12–35; TEMP 36.3–37.3; O2SAT 96–99; BMI 29.7
[2025-02-20 05:33] LABS: Basophils # (Auto) 0.1 Thou/mm3 (0.0-0.2); Basophils % (Auto) 0 % (0-2.5); Eosinophils # (Auto) 0.5 Thou/mm3 (0.0-0.5); Eosinophils % (Auto) 3 % (0-10); Hematocrit 23.2 % (36.0-46.0); Immature Granulocytes Auto 0.33 Thou/mm3 (0.00-0.00); Lymphocytes # (Auto) 2.3 Thou/mm3 (1.0-4.8); Lymphocytes % (Auto) 17 % (10-50); Mean Corpuscular HGB Conc 31.9 g/dl (31.0-37.0); Mean Corpuscular Hemoglobin 31.0 pg (25.0-35.0); Mean Corpuscular Volume 97 fL (80-100); Monocytes # (Auto) 1.6 Thou/mm3 (0.0-0.8); Monocytes % (Auto) 11 % (0-12); Neutrophils # (Auto) 9.2 Thou/mm3 (1.8-7.7); Neutrophils % (Auto) 66 % (37-80); Nucleated Red Blood Cell # 0.02 Thou/mm3 (0.00-0.00); Nucleated Red Blood Cell % 0 /100 WBC (0); Platelet Count 397 Thou/mm3 (140-440); RDW Standard Deviation 62.2 fL (36.4-46.3); Red Blood Count 2.39 Miln/mm3 (4.00-5.20); White Blood Count 14.0 Thou/mm3 (3.6-11.0)
[2025-02-20 05:34] LABS: Hemoglobin 7.4 g/dL (12.0-16.0)
[2025-02-20] MEDS: PIPER/TAZO 3.375 GM PREMIX 3.375 GM/50 ML BAG IV ×3 (05:46→21:10)
[2025-02-20] MEDS: VALPROIC ACID SYRUP 250 MG/5 ML UDC 500 MG GT ×3 (05:46→21:09)
[2025-02-20 06:28] LABS: Alanine Aminotransferase 8 U/L (10-49); Albumin, Serum 3.6 gm/dL (3.4-4.8); Albumin/Globulin Ratio 1.2 (1.2-2.2); Alkaline Phosphatase 69 U/L (46-116); Anion Gap 10 (7-16); Aspartate Amino Transferase 25 U/L (0-34); BUN/Creatinine Ratio 13 Ratio (12-20); Bilirubin,Total 0.2 mg/dL (0.3-1.2); Blood Urea Nitrogen 9 mg/dL (9-23); Calcium 8.8 mg/dL (8.3-10.6); Calcium (Corrected) 9.1 mg/dL (8.5-10.1); Carbon Dioxide 29.8 mMol/L (20.0-31.0); Chloride 101 mMol/L (98-107); Creatinine (Component) 0.7 mg/dL (0.6-1.3); Estimated Creatinine Clearance 77.0 mL/min (>60); Globulin 3.0 gm/dL (2.3-3.5); Glucose 121 mg/dL (74-106); Magnesium 2.1 mg/dL (1.6-2.6); Osmolality,Calculated 280 (275-295); Phosphorous 3.9 mg/dL (2.4-5.1); Potassium 4.1 mMol/L (3.4-5.1); Sodium 141 mMol/L (136-145); Total Protein 6.6 gm/dL (5.7-8.2); eGFR > 60 See Note
[2025-02-20] MEDS: ASCORBIC ACID 250 MG TABLET 500 MG GT ×2 (09:05→21:09)
[2025-02-20] MEDS: CHOLECALCIFEROL (Vitamin D3) 1,000 IU TABLET 1000 IU GT ×2 (09:05→21:10)
[2025-02-20] MEDS: SODIUM CHLORIDE 1 GM TABLET GT (09:06)
[2025-02-20] MEDS: FERROUS SULF 325 MG TABLET PO ×2 (09:06→21:10)
[2025-02-20] MEDS: FAMOTIDINE INJ 10 MG/ML VIAL 2 ML 20 MG IVP ×2 (09:06→21:10)
[2025-02-20] MEDS: ASPIRIN 81 MG CHEW GT (09:06)
[2025-02-20] MEDS: Artificial Tears 225 DROP/15 ML BTL BOTH EYES ×2 (09:06→22:28)
[2025-02-20] MEDS: levETIRAcetam LIQD 500 MG/5 ML UDC 1000 MG GT ×2 (09:28→21:09)
[2025-02-20] MEDS: VANCOMYCIN 25 MG/ML 125 MG GT ×4 (09:28→22:28)
[2025-02-20] MEDS: guaiFENesin SYRUP 200 MG/10 ML UDC GT (11:06)
--- NOTE | 2025-02-20 15:03 | PD.RESPRO ---
Documentation for date of: 02/20/25 Subjective Subjective Interval history: Patient seen examined at bedside, mentation has improved, white count improving. Discussed with RT regarding placing patient on blow-by, RT shortstaffed, will try in AM. Will continue with IV Zosyn and oral vancomycin. Continue contact precautions. Sputum culture positive, pending speciation. Discussed with subacute director Dr. Silverio, possible discharge in a.m. if patient continues to improve. Exam Vital Signs Temp Pulse Resp BP Pulse Ox O2 Del Method FiO2 98.2 F 68 27 H 118/72 97 Mechanical Ventilation 30 02/20/25 12:00 02/20/25 12:00 02/20/25 12:00 02/20/25 12:00 02/20/25 12:00 02/20/25 12:00 02/20/25 12:00 Narrative Exam GENERAL APPEARANCE: AOx0. NAD, on ventilator. Pt is able to track with eyes and nod yes to questions. Trach'd and PEG'd HEENT: Normocephalic atraumatic, no facial trauma, neck is supple. Lids/conjunctiva normal. Mucous membranes moist, nares normal, lips/teeth normal uvula midline without oral pharyngeal erythema, exudate or swelling TMs normal bilaterally. No lymphangitis/lymphedema. CARDIAC: Regular rate and rhythm, S1+S2 heard. No murmurs, rubs, or gallops noted RESPIRATORY: mechanical ventilation, tracheostomy site clean, no accessory muscle use. No wheezing no crackles ABDOMINAL: NBS. Soft, ND/NT. No evidence of fluid wave. No pulsatile masses on exam, rebound tenderness. Patient grimaces with palpation of the abdomen that is soft, but tender. +PEG tube MUSCLES/EXTREMITIES: No abnormal range of motion. +2 pedal edema DERM: Warm, pink and dry. No rashes, dermatoses, petechiae or lesions. NEUROLOGICAL: Speech is clear and appropriate. Normal level of consciousness. Gait and coordination are normal. 5/5 strength in all extremities. PSYCH: Normal mood and affect. Judgement/competence is appropriate Objective Labs 02/21/25 04:56 02/21/25 04:56 Labs: Laboratory Results - last 24 hr 02/20/25 04:40 WBC 14.0 H D RBC 2.39 L Hgb 7.4 L Hct 23.2 L MCV 97 MCH 31.0 MCHC 31.9 RDW Std Deviation 62.2 H Plt Count 397 D Neut % (Auto) 66 Lymph % (Auto) 17 [place] % (Auto) 11 Eos % (Auto) 3 Baso % (Auto) 0 Neut # (Auto) 9.2 H Lymph # (Auto) 2.3 [place] # (Auto) 1.6 H Eos # (Auto) 0.5 Baso # (Auto) 0.1 Immature Gran # (Auto) 0.33 H Absolute Nucleated RBC 0.02 H Immature Gran % 2 H Nucleated RBC % 0 Sodium 141 Potassium 4.1 D Chloride 101 Carbon Dioxide 29.8 Anion Gap 10 BUN 9 Creatinine 0.7 Estim Creat Clear Calc 77.0 eGFR > 60 BUN/Creatinine Ratio 13 Glucose 121 H Calculated Osmolality 280 Calcium 8.8 Corrected Calcium 9.1 Phosphorus 3.9 Magnesium 2.1 Total Bilirubin 0.2 L AST 25 ALT 8 L Alkaline Phosphatase 69 D Total Protein 6.6 Albumin 3.6 Globulin 3.0 Albumin/Globulin Ratio 1.2 Blood Type B Positive Antibody Screen NEGATIVE Blood Bank Wristband ID Yes ABG Interpretation ABG results: 02/17/25 20:07 ABG pH 7.38 ABG pCO2 51 H ABG pO2 90 ABG HCO3 30 H ABG O2 Saturation 99 H ABG Base Excess 4 H Quality Measures Quality Measures VTE prophylaxis and sepsis Current suspected stage: ruled out Possible source: pulmonary Blood cultures ordered: yes Antibiotic ordered: Yes Advance care planning discussed with:: patient Assessment & Plan Assessment Current Active Medications: Generic Name Dose Route Start Last Admin Trade Name Freq PRN Reason Stop Dose Admin Acetaminophen 650 mg 02/17/25 20:47 Acetaminophen 325 Mg Tablet NG 03/19/25 20:46 Q4HR PRN Fever > 100.4 Acetaminophen 650 mg 02/17/25 20:47 Acetaminophen 325 Mg Tablet NG 03/19/25 20:46 Q6HR PRN PAIN 1-3 Hydrocodone Bitart/Acetaminophen 1 tab 02/17/25 20:40 Hydrocodone/Apap 5/325 Tablet PO 02/22/25 20:39 Q4HR PRN PAIN SCALE 4-6 (Moderate Albuterol/Ipratropium 3 ml 02/17/25 20:47 Albuterol/Ipratropium (Duoneb) Rt Ericka 3 Ml Nebu INH 03/19/25 20:46 Q2HR PRN WHEEZING Artificial Tears 2 drop 02/17/25 21:00 02/20/25 09:06 Artificial Tears 225 Drop/15 Ml Btl BOTH EYES 03/19/25 20:59 4 drops BID JAYMIE Administration Ascorbic Acid 500 mg 02/17/25 21:00 02/20/25 09:05 Ascorbic Acid 250 Mg Tablet GT 03/19/25 20:59 500 mg BID JAYMIE Administration Aspirin 81 mg 02/18/25 09:00 02/20/25 09:06 Aspirin 81 Mg Chew GT 03/20/25 08:59 81 mg QDAY JAYMIE Administration Atorvastatin Calcium 40 mg 02/17/25 21:00 02/19/25 21:19 Atorvastatin Calcium 20 Mg Tablet GT 03/19/25 20:59 40 mg HS JAYMIE Administration Bisacodyl 10 mg 02/17/25 20:47 Bisacodyl 10 Mg Supp [place] 03/19/25 20:46 On Hold: 02/18/25 07:42 PRN PRN No BM Per Bowel Management Protocol Protocol Buspirone HCl 10 mg 02/17/25 21:00 02/20/25 09:05 Buspirone Hcl 5 Mg Tablet GT 03/19/25 20:59 10 mg BID JAYMIE Administration Carbamide Peroxide 5 drop 02/17/25 21:00 02/17/25 22:30 Carbamide Peroxide Otic Ericka 15 Ml Btl BOTH EARS 03/19/25 20:59 Not Given Q61D JAYMIE Diazepam 5 mg 02/17/25 20:47 Diazepam Inj 5 Mg/Ml Vial 2 Ml IM [id number] PRN Seizures Famotidine 20 mg 02/17/25 21:00 02/20/25 09:06 Famotidine Inj 10 Mg/Ml Vial 2 Ml IVP 03/19/25 20:59 20 mg Q12HR JAYMIE Administration Ferrous Sulfate 325 mg 02/18/25 09:00 02/20/25 09:06 Ferrous Sulf 325 Mg Tablet PO 03/20/25 08:59 325 mg BID JAYMIE Administration Glucagon 1 mg 02/17/25 20:47 Glucagon Inj 1 Mg Vial SC Q15MIN PRN Hypoglycemia Guaifenesin 300 mg 02/17/25 20:47 Guaifenesin Syrup 200 Mg/10 Ml Udc GT 03/19/25 20:46 Q6HR PRN COUGH Protocol Piperacillin/Tazobactam/Dextrose 3.375 gm in 50 mls @ 12.5 mls/hr 02/18/25 23:00 02/20/25 13:54 Zosyn IV 02/25/25 22:59 12.5 mls/hr Q8HR JAYMIE Administration Protocol Insulin Degludec 8 unit 02/18/25 18:00 02/19/25 18:09 Insulin Degludec 5 Unit/0.05 Ml (Per 5 Units) SC 03/20/25 17:59 8 unit DAILY@1800 JAYMIE Administration Insulin Human Lispro 0 unit 02/18/25 06:00 02/20/25 05:57 Insulin Lispro (Admelog) 1 Unit/0.01 Ml Unit SC 03/20/25 05:59 Not Given [facility] Levetiracetam 1,000 mg 02/17/25 21:00 02/20/25 09:28 Levetiracetam Liqd 500 Mg/5 Ml Udc GT 03/19/25 20:59 1,000 mg BID JAYMIE Administration Magnesium Hydroxide 30 ml 02/17/25 20:47 Milk Of Magnesia Susp 30 Ml Ud GT 03/19/25 20:46 On Hold: 02/18/25 07:41 PRN PRN CONSTIPATION Protocol Morphine Sulfate 1 mg 02/17/25 20:40 02/18/25 02:54 Morphine Sulf Inj 4 Mg/Ml Vial IVP 02/22/25 20:39 1 mg Q4HR PRN Administration PAIN SCALE 7-10 (Severe Ondansetron HCl 4 mg 02/17/25 20:40 Ondansetron Inj 2 Mg/Ml Inj 2 Ml IVP 03/19/25 20:39 Q6H PRN NAUSEA OR VOMITING Protocol Polyethylene Glycol 17 gm 02/17/25 20:47 Polyethylene Glycol 17 Gm Packet GT 03/19/25 20:46 On Hold: 02/18/25 07:41 PRN PRN No BM Per Bowel Management Protocol Sodium Chloride 1 gm 02/18/25 09:00 02/20/25 09:06 Sodium Chloride 1 Gm Tablet GT 03/20/25 08:59 1 gm QDAY JAYMIE Administration Sodium Phosphate 133 ml 02/18/25 15:14 Sodium Phos,[place]-Dibasic 133 Ml (Fleet) Enema Btl RC PRN PRN No BM Per Bowel Management Protocol Valproic Acid 500 mg 02/17/25 22:00 02/20/25 13:54 Valproic Acid Syrup 250 Mg/5 Ml Udc GT 03/19/25 21:59 500 mg TID JAYMIE Administration Vancomycin HCl 125 mg 02/19/25 17:00 02/20/25 11:06 Vancomycin Oral Solution 25 Mg/Ml GT 02/25/25 09:14 125 mg ACHS JAYMIE Administration Protocol Vitamin D 1,000 iu 02/17/25 21:00 02/20/25 09:05 Cholecalciferol (Vitamin D3) 1,000 Iu Tablet GT 03/19/25 20:59 1,000 iu BID JAYMIE Administration Plan 69yo female with a history of epilepsy, HTN, HLD, DM, anoxic brain injury s/p trach and PEG tube brought in from subacute presents to the ED for complaints of shortness of breath and fever x today. Admitted for sepsis 2/2 pneumonia. #Recurrent C. difficile abdominal infection #hx of C Difficile diarrhea Patient was diagnosed with Clostridium difficle diarrhea according to records from 4 days ago. KUB showed nonobstructive bowel gas pattern, with moderate stool throughout the colon. Discontinued vancomycin capsule as patient does not eat orally, and ordered the same antibiotic in liquid form to be given through the PEG tube. + CTAP showed acute diverticulitis at the junction of the distal descending colon and sigmoid colon, no peridiverticular abscess 02/19: Positive C. difficile stool antigen testing Plan: - Vancomycin liquid through PEG (02/17 - - Placed patient on contact precautions. - Discontinued bowel regimen including MiraLAX and senna to rule out false positive test result #Acute diverticulitis #Ventilator associated Pneumonia, left base pneumonia #Acute hypercapnic respiratory failure #Chronic respiratory failure status post tracheostomy on mechanical ventilation #Lactic acidosis #Leukocytosis Patient came in and found to have 2 or more SIRS criteria and was evaluated for sepsis. However, based upon further work-up, sepsis was ruled out. HR 104 RR 24 T 102.6F with IV fluids and antibiotics resolved to HR 89 RR 34 T 97.3F. Brought in from subacute floor for SOB and fever. Physical exam revealed left lung lobe rhonchi. Procal 1.12. Lactic acid 4.6 --> 4.0 with IV fluids. CXR fairly diffuse bilateral pneumonia. Respiratory therapist has been suctioning the patient multiple times. Reeived 2.4 L bolus in ED on maintenance fluids currently. WBC improved to 23.7 (02/19). ? Gram stain of sputum culture revealed GNR, pending final speciation ? Patient was treated with cefepime 1g IV Q8HR (02/17 - 02/18) ? Blood culture negative in 2 out of 2 bottles after 24h ? MRSA screen negative, discontinued IV vancomycin Plan: -Zosyn 3.375 g IV Q8h (02/18 - -Sputum cx: Positive pending speciation -Duoneb 3ml INH Q2HR PRN # Insulin-dependent type 2 diabetes mellitus Plan: -Glargine 8 unit SC QD -ISS # Seizure disorder Plan: -Keppra 1g BID -Valproic acid 500mg TID -Buspar 10mg BID (anxiety) -Diazepam 5 mg IM #HTN Not hypertensive on admission or exam. No treatment indicated from subacute floor. Plan: -Consider PRNs if patient becomes hypertensive #HLD Plan: -Atorvastatin 40mg HS #Chronic normocytic anemia #GI bleed? hemoglobin dropped from 9.0 at presentation to 7.8. Nurse noted previous report of dark pasty stool. FOBT positive Patient will need colonoscopy at a later point #Status post PEG tube Tube feeds started, dietitian consulted. Health Maintenance: Code status: DNR/DNI DVT prophylaxis: Lovenox 40mg GI prophylaxis: Famotidine Diet: Tube feeding [place]: Yes Lines: PIV Supplemental O2: Ventilator Disposition: Admitted to [facility] for sepsis r/o and pneumonia Case discussed with Attending Physician Dr. Ivelisse Peñaloza MD Internal Medicine PGY-2 Disclaimer: This note was dictated by speech recognition. Minor errors in commercial hvac technician may be present due to voice recognition software. Attending Provider Attestation/Addendum Ivelisse Paz DO, attest that I was physically present for the hu portions of the service and evaluated the patient with the resident and I reviewed and discussed the case with the resident and agree with the resident's findings and plans of care as documented above Patient seen and evaluated this AM. She continues to have pain on palpation of her abdomen. However, leukocytosis has improved. She remains on zosyn due to 2 different species of GNR noted in Sputum. Patient noted to have more cough and productive sputum today. Will need chest PT and started on mucinex. No changes in mechanical ventilation. Will continue with current management and anticipate DC within next 24h as patient remains afebrile.
--- NOTE | 2025-02-20 15:24 | PC.SS ---
Addendum entered by Millie Gonzales 02/20/25 15:46: PARVEZ has spoken to Lay from [facility] and informed Dr. Sunshine has communicated with Dr. Silverio and he states he can accept pt back to [facility] on Monday early in the morning. Lay states she will inform Zully, Charge nurse. Original Note: PARVEZ has sent updated inquiry to [facility] using [facility].
[2025-02-20] MEDS: INSULIN DEGLUDEC 5 UNIT/0.05 ML (PER 5 UNITS) 8 UNIT SC (17:59)
[2025-02-20] MEDS: ATORVASTATIN CALCIUM 20 MG TABLET 40 MG GT (21:10)
[2025-02-20 22:22] LABS: Vancomycin,Trough 4.5 mcg/mL (5.0-10.0)
[2025-02-21] VITALS (11 sets, daily range): BP systolic 108–154; BP diastolic 50–72; PULSE 66–100; RESP 16–32; TEMP 36.1–37.2; O2SAT 95–100; BMI 29.6
[2025-02-21] MEDS: PIPER/TAZO 3.375 GM PREMIX 3.375 GM/50 ML BAG IV ×3 (05:39→21:41)
[2025-02-21] MEDS: VALPROIC ACID SYRUP 250 MG/5 ML UDC 500 MG GT ×3 (05:39→21:43)
[2025-02-21 05:42] LABS: Basophils # (Auto) 0.1 Thou/mm3 (0.0-0.2); Basophils % (Auto) 1 % (0-2.5); Eosinophils # (Auto) 0.6 Thou/mm3 (0.0-0.5); Eosinophils % (Auto) 3 % (0-10); Hematocrit 24.5 % (36.0-46.0); Immature Granulocytes Auto 0.71 Thou/mm3 (0.00-0.00); Lymphocytes # (Auto) 3.2 Thou/mm3 (1.0-4.8); Lymphocytes % (Auto) 18 % (10-50); Mean Corpuscular HGB Conc 31.4 g/dl (31.0-37.0); Mean Corpuscular Hemoglobin 30.3 pg (25.0-35.0); Mean Corpuscular Volume 97 fL (80-100); Monocytes # (Auto) 1.7 Thou/mm3 (0.0-0.8); Monocytes % (Auto) 10 % (0-12); Neutrophils # (Auto) 11.3 Thou/mm3 (1.8-7.7); Neutrophils % (Auto) 64 % (37-80); Nucleated Red Blood Cell # 0.02 Thou/mm3 (0.00-0.00); Nucleated Red Blood Cell % 0 /100 WBC (0); Platelet Count 451 Thou/mm3 (140-440); RDW Standard Deviation 60.5 fL (36.4-46.3); Red Blood Count 2.54 Miln/mm3 (4.00-5.20); White Blood Count 17.7 Thou/mm3 (3.6-11.0)
[2025-02-21 05:47] LABS: Hemoglobin 7.7 g/dL (12.0-16.0)
[2025-02-21 06:11] LABS: Alanine Aminotransferase 8 U/L (10-49); Albumin, Serum 3.9 gm/dL (3.4-4.8); Albumin/Globulin Ratio 1.3 (1.2-2.2); Alkaline Phosphatase 61 U/L (46-116); Anion Gap 9 (7-16); Aspartate Amino Transferase 19 U/L (0-34); BUN/Creatinine Ratio 14 Ratio (12-20); Bilirubin,Total 0.2 mg/dL (0.3-1.2); Blood Urea Nitrogen 10 mg/dL (9-23); Calcium 9.0 mg/dL (8.3-10.6); Calcium (Corrected) 9.1 mg/dL (8.5-10.1); Carbon Dioxide 32.8 mMol/L (20.0-31.0); Chloride 99 mMol/L (98-107); Creatinine (Component) 0.7 mg/dL (0.6-1.3); Estimated Creatinine Clearance 76.8 mL/min (>60); Globulin 3.1 gm/dL (2.3-3.5); Glucose 115 mg/dL (74-106); Magnesium 2.1 mg/dL (1.6-2.6); Osmolality,Calculated 281 (275-295); Phosphorous 3.7 mg/dL (2.4-5.1); Potassium 3.7 mMol/L (3.4-5.1); Sodium 141 mMol/L (136-145); Total Protein 7.0 gm/dL (5.7-8.2); eGFR > 60 See Note
[2025-02-21] MEDS: VANCOMYCIN 25 MG/ML 125 MG GT ×4 (08:26→21:41)
[2025-02-21] MEDS: CHOLECALCIFEROL (Vitamin D3) 1,000 IU TABLET 1000 IU GT ×2 (08:27→21:42)
[2025-02-21] MEDS: ASCORBIC ACID 250 MG TABLET 500 MG GT ×2 (08:27→21:42)
[2025-02-21] MEDS: ASPIRIN 81 MG CHEW GT (08:27)
[2025-02-21] MEDS: FAMOTIDINE INJ 10 MG/ML VIAL 2 ML 20 MG IVP ×2 (08:28→21:42)
[2025-02-21] MEDS: SODIUM CHLORIDE 1 GM TABLET GT (08:28)
[2025-02-21] MEDS: levETIRAcetam LIQD 500 MG/5 ML UDC 1000 MG GT ×2 (08:28→21:43)
[2025-02-21] MEDS: FERROUS SULF 325 MG TABLET PO ×2 (08:28→21:41)
[2025-02-21] MEDS: POTASSIUM CHLORIDE 10% 20 MEQ/15 ML UDC 40 MEQ GT (08:28)
[2025-02-21] MEDS: Artificial Tears 225 DROP/15 ML BTL BOTH EYES ×2 (08:43→21:42)
--- NOTE | 2025-02-21 08:43 | PC.SS ---
Follow up note: SS spoke to bedside nurseAvril who is aware pt will dc back to [facility] this morning.
[2025-02-21] MEDS: FUROSEMIDE INJ 10 MG/ML VIAL 2 ML 20 MG IVP (11:44)
--- NOTE | 2025-02-21 13:07 | ESPR_ITS ---
Documentation for date of: 02/21/25 Subjective Subjective Interval history: Patient seen examined at bedside. Will continue with IV Zosyn and oral vancomycin. Sputum culture positive for Serratia and Pseudomonas same as before patient likely a colonizer Patient continues to have elevated white count, will be discharged on Monday morning to [facility]. Exam Vital Signs Temp Pulse Resp BP Pulse Ox O2 Del Method FiO2 97.0 F 71 19 114/50 L 98 Mechanical Ventilation 30 02/21/25 08:00 02/21/25 11:44 02/21/25 08:00 02/21/25 11:44 02/21/25 08:00 02/21/25 08:00 02/21/25 08:00 Narrative Exam GENERAL APPEARANCE: AOx0. NAD, on ventilator. Pt is able to track with eyes and nod yes to questions. Trach'd and PEG'd HEENT: Normocephalic atraumatic, no facial trauma, neck is supple. Lids/conjunctiva normal. Mucous membranes moist, nares normal, lips/teeth normal uvula midline without oral pharyngeal erythema, exudate or swelling TMs normal bilaterally. No lymphangitis/lymphedema. CARDIAC: Regular rate and rhythm, S1+S2 heard. No murmurs, rubs, or gallops noted RESPIRATORY: mechanical ventilation, tracheostomy site clean, no accessory muscle use. No wheezing no crackles ABDOMINAL: NBS. Soft, ND/NT. No evidence of fluid wave. No pulsatile masses on exam, rebound tenderness. Patient grimaces with palpation of the abdomen that is soft, but tender. +PEG tube MUSCLES/EXTREMITIES: No abnormal range of motion. +2 pedal edema DERM: Warm, pink and dry. No rashes, dermatoses, petechiae or lesions. NEUROLOGICAL: Speech is clear and appropriate. Normal level of consciousness. Gait and coordination are normal. 5/5 strength in all extremities. PSYCH: Normal mood and affect. Judgement/competence is appropriate Objective Labs 02/22/25 04:52 02/22/25 04:52 Labs: Laboratory Results - last 24 hr 02/20/25 02/21/25 21:06 04:56 WBC 17.7 H RBC 2.54 L Hgb 7.7 L Hct 24.5 L MCV 97 MCH 30.3 MCHC 31.4 RDW Std Deviation 60.5 H Plt Count 451 H D Neut % (Auto) 64 Lymph % (Auto) 18 [place] % (Auto) 10 Eos % (Auto) 3 Baso % (Auto) 1 Neut # (Auto) 11.3 H Lymph # (Auto) 3.2 Carbon # (Auto) 1.7 H Eos # (Auto) 0.6 H Baso # (Auto) 0.1 Immature Gran # (Auto) 0.71 H Absolute Nucleated RBC 0.02 H Immature Gran % 4 H Nucleated RBC % 0 Sodium 141 Potassium 3.7 Chloride 99 Carbon Dioxide 32.8 H Anion Gap 9 BUN 10 Creatinine 0.7 Estim Creat Clear Calc 76.8 eGFR > 60 BUN/Creatinine Ratio 14 Glucose 115 H Calculated Osmolality 281 Calcium 9.0 Corrected Calcium 9.1 Phosphorus 3.7 Magnesium 2.1 Total Bilirubin 0.2 L AST 19 ALT 8 L Alkaline Phosphatase 61 Total Protein 7.0 Albumin 3.9 Globulin 3.1 Albumin/Globulin Ratio 1.3 Vancomycin Trough 4.5 L ABG Interpretation ABG results: 02/17/25 20:07 ABG pH 7.38 ABG pCO2 51 H ABG pO2 90 ABG HCO3 30 H ABG O2 Saturation 99 H ABG Base Excess 4 H Quality Measures Quality Measures VTE prophylaxis and sepsis Current suspected stage: ruled out Possible source: pulmonary Blood cultures ordered: yes Antibiotic ordered: Yes Advance care planning discussed with:: patient Assessment & Plan Assessment Current Active Medications: Generic Name Dose Route Start Last Admin Trade Name Freq PRN Reason Stop Dose Admin Acetaminophen 650 mg 02/17/25 20:47 Acetaminophen 325 Mg Tablet NG 03/19/25 20:46 Q4HR PRN Fever > 100.4 Acetaminophen 650 mg 02/17/25 20:47 Acetaminophen 325 Mg Tablet NG 03/19/25 20:46 Q6HR PRN PAIN 1-3 Albuterol/Ipratropium 3 ml 02/17/25 20:47 Albuterol/Ipratropium (Duoneb) Rt Ericka 3 Ml Nebu INH 03/19/25 20:46 Q2HR PRN WHEEZING Artificial Tears 2 drop 02/17/25 21:00 02/21/25 08:43 Artificial Tears 225 Drop/15 Ml Btl BOTH EYES 03/19/25 20:59 1 drops BID JAYMIE Administration Ascorbic Acid 500 mg 02/17/25 21:00 02/21/25 08:27 Ascorbic Acid 250 Mg Tablet GT 03/19/25 20:59 500 mg BID JAYMIE Administration Aspirin 81 mg 02/18/25 09:00 02/21/25 08:27 Aspirin 81 Mg Chew GT 03/20/25 08:59 81 mg QDAY JAYMIE Administration Atorvastatin Calcium 40 mg 02/17/25 21:00 02/20/25 21:10 Atorvastatin Calcium 20 Mg Tablet GT 03/19/25 20:59 40 mg HS JAYMIE Administration Bisacodyl 10 mg 02/17/25 20:47 Bisacodyl 10 Mg Supp [place] 03/19/25 20:46 On Hold: 02/18/25 07:42 PRN PRN No BM Per Bowel Management Protocol Protocol Buspirone HCl 10 mg 02/17/25 21:00 02/21/25 08:27 Buspirone Hcl 5 Mg Tablet GT 03/19/25 20:59 10 mg BID JAYMIE Administration Carbamide Peroxide 5 drop 02/17/25 21:00 02/17/25 22:30 Carbamide Peroxide Otic Ericka 15 Ml Btl BOTH EARS 03/19/25 20:59 Not Given Q61D JAYMIE Diazepam 5 mg 02/17/25 20:47 Diazepam Inj 5 Mg/Ml Vial 2 Ml IM [id number] PRN Seizures Famotidine 20 mg 02/17/25 21:00 02/21/25 08:28 Famotidine Inj 10 Mg/Ml Vial 2 Ml IVP 03/19/25 20:59 20 mg Q12HR JAYMIE Administration Ferrous Sulfate 325 mg 02/18/25 09:00 02/21/25 08:28 Ferrous Sulf 325 Mg Tablet PO 03/20/25 08:59 325 mg BID JAYMIE Administration Glucagon 1 mg 02/17/25 20:47 Glucagon Inj 1 Mg Vial SC Q15MIN PRN Hypoglycemia Guaifenesin 300 mg 02/17/25 20:47 Guaifenesin Syrup 200 Mg/10 Ml Udc GT 03/19/25 20:46 Q6HR PRN COUGH Protocol Piperacillin/Tazobactam/Dextrose 3.375 gm in 50 mls @ 12.5 mls/hr 02/18/25 23:00 02/21/25 05:39 Zosyn IV 02/25/25 22:59 12.5 mls/hr Q8HR JAYMIE Administration Protocol Insulin Degludec 8 unit 02/18/25 18:00 02/20/25 17:59 Insulin Degludec 5 Unit/0.05 Ml (Per 5 Units) [place] 03/20/25 17:59 8 unit DAILY@1800 [facility] Administration Insulin Human Lispro 0 unit 02/18/25 06:00 02/21/25 05:34 Insulin Lispro (Admelog) 1 Unit/0.01 Ml Unit MT 03/20/25 05:59 Not Given 06,18 [facility] Levetiracetam 1,000 mg 02/17/25 21:00 02/21/25 08:28 Levetiracetam Liqd 500 Mg/5 Ml Udc 03/19/25 20:59 1,000 mg BID JAYMIE Administration Magnesium Hydroxide 30 ml 02/17/25 20:47 Milk Of Magnesia Susp 30 Ml Udc 03/19/25 20:46 On Hold: 02/18/25 07:41 PRN PRN CONSTIPATION Protocol Ondansetron HCl 4 mg 02/17/25 20:40 Ondansetron Inj 2 Mg/Ml Inj 2 Ml IVP 03/19/25 20:39 Q6H PRN NAUSEA OR VOMITING Protocol Polyethylene Glycol 17 gm 02/17/25 20:47 Polyethylene Glycol 17 Gm Packet 03/19/25 20:46 On Hold: 02/18/25 07:41 PRN PRN No BM Per Bowel Management Protocol Sodium Chloride 1 gm 02/18/25 09:00 02/21/25 08:28 Sodium Chloride 1 Gm Tablet 03/20/25 08:59 1 gm QDAY [facility] Administration Sodium Phosphate 133 ml 02/18/25 15:14 Sodium Phos,Carbon-Dibasic 133 Ml (Fleet) Enema Btl RC PRN PRN No BM Per Bowel Management Protocol Valproic Acid 500 mg 02/17/25 22:00 02/21/25 05:39 Valproic Acid Syrup 250 Mg/5 Ml Udc 03/19/25 21:59 500 mg TID JAYMIE Administration Vancomycin HCl 125 mg 02/19/25 17:00 02/21/25 12:30 Vancomycin Oral Solution 25 Mg/Ml 02/25/25 09:14 125 mg ACHS [facility] Administration Protocol Vitamin D 1,000 iu 02/17/25 21:00 02/21/25 08:27 Cholecalciferol (Vitamin D3) 1,000 Iu Tablet 03/19/25 20:59 1,000 iu BID JAYMIE Administration Plan 69yo female with a history of epilepsy, HTN, HLD, DM, anoxic brain injury s/p trach and PEG tube brought in from subacute presents to the ED for complaints of shortness of breath and fever x today. Admitted for sepsis 2/2 pneumonia. #Recurrent C. difficile abdominal infection #hx of C Difficile diarrhea Patient was diagnosed with Clostridium difficle diarrhea according to records from 4 days ago. KUB showed nonobstructive bowel gas pattern, with moderate stool throughout the colon. Discontinued vancomycin capsule as patient does not eat orally, and ordered the same antibiotic in liquid form to be given through the PEG tube. + CTAP showed acute diverticulitis at the junction of the distal descending colon and sigmoid colon, no peridiverticular abscess 02/19: Positive C. difficile stool antigen testing Plan: - Vancomycin liquid through PEG (02/17 - - Plan to discharge patient on extended taper: Vancomycin 125 4 times a day for 7 days then Vancomycin 125 two times a day for 7 days then Vancomycin 125 one time a day for 7 days then Vancomycin 125 every two days for 4 weeks then Vancomycin 125 every three days for 4 weeks - Placed patient on contact precautions. - Discontinued bowel regimen including MiraLAX and senna to rule out false positive test result #Acute diverticulitis #Ventilator associated Pneumonia, left base pneumonia #Acute hypercapnic respiratory failure #Chronic respiratory failure status post tracheostomy on mechanical ventilation #Lactic acidosis #Leukocytosis Patient came in and found to have 2 or more SIRS criteria and was evaluated for sepsis. However, based upon further work-up, sepsis was ruled out. HR 104 RR 24 T 102.6F with IV fluids and antibiotics resolved to HR 89 RR 34 T 97.3F. Brought in from subacute floor for SOB and fever. Physical exam revealed left lung lobe rhonchi. Procal 1.12. Lactic acid 4.6 --> 4.0 with IV fluids. CXR fairly diffuse bilateral pneumonia. Respiratory therapist has been suctioning the patient multiple times. Reeived 2.4 L bolus in ED on maintenance fluids currently. WBC improved to 23.7 (02/19). ? Gram stain of sputum culture revealed GNR, pending final speciation ? Patient was treated with cefepime 1g IV Q8HR (02/17 - 02/18) ? Blood culture negative in 2 out of 2 bottles after 24h ? MRSA screen negative, discontinued IV vancomycin ? Sputum culture positive for Serratia and Pseudomonas, patient likely colonized Plan: -Zosyn 3.375 g IV Q8h (02/18 - -Duoneb 3ml INH Q2HR PRN # Insulin-dependent type 2 diabetes mellitus Plan: -Glargine 8 unit SC QD -ISS # Seizure disorder Plan: -Keppra 1g BID -Valproic acid 500mg TID -Buspar 10mg BID (anxiety) -Diazepam 5 mg IM #HTN Not hypertensive on admission or exam. No treatment indicated from subacute floor. Plan: -Consider PRNs if patient becomes hypertensive #HLD Plan: -Atorvastatin 40mg HS #Chronic normocytic anemia #GI bleed? hemoglobin dropped from 9.0 at presentation to 7.8. Nurse noted previous report of dark pasty stool. FOBT positive Patient will need colonoscopy at a later point #Status post PEG tube Tube feeds started, dietitian consulted. Health Maintenance: Code status: DNR/DNI DVT prophylaxis: Lovenox 40mg GI prophylaxis: Famotidine Diet: Tube feeding Hobson: Yes Lines: PIV Supplemental O2: Ventilator Disposition: Admitted to [facility] for sepsis r/o and pneumonia Case discussed with Attending Physician Dr. Mary Sunshine MD Internal Medicine PGY-2 Disclaimer: This note was dictated by speech recognition. Minor errors in double surface operator may be present due to voice recognition software. Attending Provider Attestation/Addendum 69 yo female with anoxic brain injury sp trach and PEG, vent dependent (FIO2 30%) admitted for recurrent C. diff infection. She has diarrhea. WBC count still elevated. No reported oif abdominal distension. She has stable BUN and creatinine. Continue Cdiff treatment, ID consult. Discussed with house staff.
[2025-02-21] MEDS: INSULIN DEGLUDEC 5 UNIT/0.05 ML (PER 5 UNITS) 8 UNIT SC (18:18)
[2025-02-21] MEDS: ATORVASTATIN CALCIUM 20 MG TABLET 40 MG GT (21:42)
[2025-02-22] VITALS (13 sets, daily range): BP systolic 99–123; BP diastolic 52–85; PULSE 65–90; RESP 16–33; TEMP 36.1–36.2; O2SAT 93–100; BMI 29.6
[2025-02-22] MEDS: PIPER/TAZO 3.375 GM PREMIX 3.375 GM/50 ML BAG IV ×3 (05:39→21:51)
[2025-02-22] MEDS: VALPROIC ACID SYRUP 250 MG/5 ML UDC 500 MG GT ×3 (05:53→21:47)
[2025-02-22 06:24] LABS: Basophils # (Auto) 0.1 Thou/mm3 (0.0-0.2); Basophils % (Auto) 0 % (0-2.5); Eosinophils # (Auto) 0.7 Thou/mm3 (0.0-0.5); Eosinophils % (Auto) 4 % (0-10); Hematocrit 26.6 % (36.0-46.0); Immature Granulocytes Auto 1.03 Thou/mm3 (0.00-0.00); Lymphocytes # (Auto) 3.1 Thou/mm3 (1.0-4.8); Lymphocytes % (Auto) 17 % (10-50); Mean Corpuscular HGB Conc 31.2 g/dl (31.0-37.0); Mean Corpuscular Hemoglobin 30.2 pg (25.0-35.0); Mean Corpuscular Volume 97 fL (80-100); Monocytes # (Auto) 1.6 Thou/mm3 (0.0-0.8); Monocytes % (Auto) 9 % (0-12); Neutrophils # (Auto) 11.5 Thou/mm3 (1.8-7.7); Neutrophils % (Auto) 64 % (37-80); Nucleated Red Blood Cell # 0.02 Thou/mm3 (0.00-0.00); Nucleated Red Blood Cell % 0 /100 WBC (0); Platelet Count 504 Thou/mm3 (140-440); RDW Standard Deviation 60.7 fL (36.4-46.3); Red Blood Count 2.75 Miln/mm3 (4.00-5.20); White Blood Count 18.1 Thou/mm3 (3.6-11.0)
[2025-02-22 06:28] LABS: Hemoglobin 8.3 g/dL (12.0-16.0)
[2025-02-22 06:50] LABS: Alanine Aminotransferase 13 U/L (10-49); Albumin, Serum 4.1 gm/dL (3.4-4.8); Albumin/Globulin Ratio 1.3 (1.2-2.2); Alkaline Phosphatase 65 U/L (46-116); Anion Gap 10 (7-16); Aspartate Amino Transferase 20 U/L (0-34); BUN/Creatinine Ratio 16 Ratio (12-20); Bilirubin,Total 0.2 mg/dL (0.3-1.2); Blood Urea Nitrogen 13 mg/dL (9-23); Calcium 9.7 mg/dL (8.3-10.6); Calcium (Corrected) 9.7 mg/dL (8.5-10.1); Carbon Dioxide 34.8 mMol/L (20.0-31.0); Chloride 96 mMol/L (98-107); Creatinine (Component) 0.8 mg/dL (0.6-1.3); Estimated Creatinine Clearance 67.2 mL/min (>60); Globulin 3.1 gm/dL (2.3-3.5); Glucose 113 mg/dL (74-106); Magnesium 2.1 mg/dL (1.6-2.6); Osmolality,Calculated 282 (275-295); Phosphorous 3.9 mg/dL (2.4-5.1); Potassium 3.9 mMol/L (3.4-5.1); Sodium 141 mMol/L (136-145); Total Protein 7.2 gm/dL (5.7-8.2); eGFR > 60 See Note
--- NOTE | 2025-02-22 10:28 | PD.RESPRO ---
Documentation for date of: 02/22/25 Exam Vital Signs Temp Pulse Resp BP Pulse Ox O2 Del Method FiO2 97.1 F 81 33 H 112/58 L 96 Mechanical Ventilation 30 02/22/25 08:00 02/22/25 09:37 02/22/25 09:37 02/22/25 08:00 02/22/25 09:37 02/22/25 08:00 02/22/25 09:37 Objective Labs 02/22/25 04:52 02/22/25 04:52 Labs: Laboratory Results - last 24 hr 02/22/25 04:52 WBC 18.1 H RBC 2.75 L Hgb 8.3 L Hct 26.6 L MCV 97 MCH 30.2 MCHC 31.2 RDW Std Deviation 60.7 H Plt Count 504 H D Neut % (Auto) 64 Lymph % (Auto) 17 [place] % (Auto) 9 Eos % (Auto) 4 Baso % (Auto) 0 Neut # (Auto) 11.5 H Lymph # (Auto) 3.1 [place] # (Auto) 1.6 H Eos # (Auto) 0.7 H Baso # (Auto) 0.1 Immature Gran # (Auto) 1.03 H Absolute Nucleated RBC 0.02 H Immature Gran % 6 H Nucleated RBC % 0 Sodium 141 Potassium 3.9 Chloride 96 L Carbon Dioxide 34.8 H Anion Gap 10 BUN 13 Creatinine 0.8 Estim Creat Clear Calc 67.2 eGFR > 60 BUN/Creatinine Ratio 16 Glucose 113 H Calculated Osmolality 282 Calcium 9.7 Corrected Calcium 9.7 Phosphorus 3.9 Magnesium 2.1 Total Bilirubin 0.2 L AST 20 ALT 13 Alkaline Phosphatase 65 Total Protein 7.2 Albumin 4.1 Globulin 3.1 Albumin/Globulin Ratio 1.3 ABG Interpretation ABG results: 02/17/25 20:07 ABG pH 7.38 ABG pCO2 51 H ABG pO2 90 ABG HCO3 30 H ABG O2 Saturation 99 H ABG Base Excess 4 H Quality Measures Quality Measures VTE prophylaxis and sepsis Possible source: pulmonary Blood cultures ordered: yes Assessment & Plan Assessment Current Active Medications: Generic Name Dose Route Start Last Admin Trade Name Freq PRN Reason Stop Dose Admin Acetaminophen 650 mg 02/17/25 20:47 Acetaminophen 325 Mg Tablet NG 03/19/25 20:46 Q4HR PRN Fever > 100.4 Acetaminophen 650 mg 02/17/25 20:47 Acetaminophen 325 Mg Tablet NG 03/19/25 20:46 Q6HR PRN PAIN 1-3 Albuterol/Ipratropium 3 ml 02/17/25 20:47 Albuterol/Ipratropium (Duoneb) Rt Ericka 3 Ml Nebu INH 03/19/25 20:46 Q2HR PRN WHEEZING Artificial Tears 2 drop 02/17/25 21:00 02/21/25 21:42 Artificial Tears 225 Drop/15 Ml Btl BOTH EYES 03/19/25 20:59 2 drops BID JAYMIE Administration Ascorbic Acid 500 mg 02/17/25 21:00 02/21/25 21:42 Ascorbic Acid 250 Mg Tablet GT 03/19/25 20:59 500 mg BID JAYMIE Administration Aspirin 81 mg 02/18/25 09:00 02/21/25 08:27 Aspirin 81 Mg Chew GT 03/20/25 08:59 81 mg QDAY JAYMIE Administration Atorvastatin Calcium 40 mg 02/17/25 21:00 02/21/25 21:42 Atorvastatin Calcium 20 Mg Tablet GT 03/19/25 20:59 40 mg HS JAYMIE Administration Buspirone HCl 10 mg 02/17/25 21:00 02/21/25 21:42 Buspirone Hcl 5 Mg Tablet GT 03/19/25 20:59 10 mg BID JAYMIE Administration Carbamide Peroxide 5 drop 02/17/25 21:00 02/17/25 22:30 Carbamide Peroxide Otic Ericka 15 Ml Btl BOTH EARS 03/19/25 20:59 Not Given Q61D JAYMIE Diazepam 5 mg 02/17/25 20:47 Diazepam Inj 5 Mg/Ml Vial 2 Ml IM [id number] PRN Seizures Famotidine 20 mg 02/17/25 21:00 02/21/25 21:42 Famotidine Inj 10 Mg/Ml Vial 2 Ml IVP 03/19/25 20:59 20 mg Q12HR JAYMIE Administration Ferrous Sulfate 325 mg 02/18/25 09:00 02/21/25 21:41 Ferrous Sulf 325 Mg Tablet PO 03/20/25 08:59 325 mg BID JAYMIE Administration Glucagon 1 mg 02/17/25 20:47 Glucagon Inj 1 Mg Vial SC Q15MIN PRN Hypoglycemia Guaifenesin 300 mg 02/17/25 20:47 Guaifenesin Syrup 200 Mg/10 Ml Udc GT 03/19/25 20:46 Q6HR PRN COUGH Protocol Piperacillin/Tazobactam/Dextrose 3.375 gm in 50 mls @ 12.5 mls/hr 02/18/25 23:00 02/22/25 05:39 Zosyn IV 02/25/25 22:59 12.5 mls/hr Q8HR JAYMIE Administration Protocol Insulin Degludec 8 unit 02/18/25 18:00 02/21/25 18:18 Insulin Degludec 5 Unit/0.05 Ml (Per 5 Units) SC 03/20/25 17:59 8 unit DAILY@1800 JAYMIE Administration Insulin Human Lispro 0 unit 02/18/25 06:00 02/22/25 05:36 Insulin Lispro (Admelog) 1 Unit/0.01 Ml Unit SC 03/20/25 05:59 Not Given [facility] Levetiracetam 1,000 mg 02/17/25 21:00 02/21/25 21:43 Levetiracetam Liqd 500 Mg/5 Ml Udc 03/19/25 20:59 1,000 mg BID JAYMIE Administration Ondansetron HCl 4 mg 02/17/25 20:40 Ondansetron Inj 2 Mg/Ml Inj 2 Ml IVP 03/19/25 20:39 Q6H PRN NAUSEA OR VOMITING Protocol Sodium Chloride 1 gm 02/18/25 09:00 02/21/25 08:28 Sodium Chloride 1 Gm Tablet 03/20/25 08:59 1 gm QDAY JAYMIE Administration Sodium Phosphate 133 ml 02/18/25 15:14 Sodium Phos,[place]-Dibasic 133 Ml (Fleet) Enema Btl RC PRN PRN No BM Per Bowel Management Protocol Valproic Acid 500 mg 02/17/25 22:00 02/22/25 05:53 Valproic Acid Syrup 250 Mg/5 Ml Udc GT 03/19/25 21:59 500 mg TID JAYMIE Administration Vancomycin HCl 125 mg 02/19/25 17:00 02/21/25 21:41 Vancomycin Oral Solution 25 Mg/Ml GT 02/25/25 09:14 125 mg ACHS JAYMIE Administration Protocol Vitamin D 1,000 iu 02/17/25 21:00 02/21/25 21:42 Cholecalciferol (Vitamin D3) 1,000 Iu Tablet GT 03/19/25 20:59 1,000 iu BID JAYMIE Administration
--- NOTE | 2025-02-22 10:33 | PC.SS ---
SS spoke to Chinedu MEJIA from [facility], who stated as joon as pt is stable they can take ot today. SS spoke top Dr. Sunshine who stated they may wait till Monday. SS explained pt can go back today. Per Dr. Sunshine he will call SS back after rounds with Dr. Canales. SS updated project development engineerYesenia
[2025-02-22] MEDS: VANCOMYCIN 25 MG/ML 125 MG GT ×3 (10:38→20:27)
[2025-02-22] MEDS: FAMOTIDINE INJ 10 MG/ML VIAL 2 ML 20 MG IVP ×2 (10:39→20:09)
[2025-02-22] MEDS: levETIRAcetam LIQD 500 MG/5 ML UDC 1000 MG GT ×2 (10:39→21:47)
[2025-02-22] MEDS: SODIUM CHLORIDE 1 GM TABLET GT (10:40)
[2025-02-22] MEDS: ASCORBIC ACID 250 MG TABLET 500 MG GT ×2 (10:40→20:14)
[2025-02-22] MEDS: ASPIRIN 81 MG CHEW GT (10:40)
[2025-02-22] MEDS: CHOLECALCIFEROL (Vitamin D3) 1,000 IU TABLET 1000 IU GT ×2 (10:41→20:14)
[2025-02-22] MEDS: FERROUS SULF 325 MG TABLET PO ×2 (10:41→20:15)
--- NOTE | 2025-02-22 14:57 | PD.RESPRO ---
Documentation for date of: 02/22/25 Subjective Subjective Interval history: Patient was seen and examined at bedside. No acute events took place overnight. Patient has has been having loose/watery BM. Will continue with IV Zosyn and oral vancomycin. ID consult on Monday for fidaxomicin at discharge, as patient has had lack of treatment success with vancomycin with recurrent C diff infection twice before. Sputum culture positive for Serratia and Pseudomonas same as before patient likely a colonizer Patient continues to have elevated white count 18.1, will be discharged on Monday morning to subacute. Exam Vital Signs Temp Pulse Resp BP Pulse Ox O2 Del Method FiO2 97.2 F 84 17 107/52 L 98 Mechanical Ventilation 30 02/22/25 12:00 02/22/25 13:37 02/22/25 12:00 02/22/25 12:00 02/22/25 13:37 02/22/25 12:00 02/22/25 13:37 Narrative Exam GENERAL APPEARANCE: AOx0. NAD, on ventilator. Pt is able to track with eyes and nod yes to questions. Trach'd and PEG'd HEENT: Normocephalic atraumatic, no facial trauma, neck is supple. Lids/conjunctiva normal. Mucous membranes moist, nares normal, lips/teeth normal uvula midline without oral pharyngeal erythema, exudate or swelling TMs normal bilaterally. No lymphangitis/lymphedema. CARDIAC: Regular rate and rhythm, S1+S2 heard. No murmurs, rubs, or gallops noted RESPIRATORY: mechanical ventilation, tracheostomy site clean, no accessory muscle use. No wheezing no crackles ABDOMINAL: NBS. Soft, ND/NT. No evidence of fluid wave. No pulsatile masses on exam, rebound tenderness. Patient grimaces with palpation of the abdomen that is soft, but tender. +PEG tube MUSCLES/EXTREMITIES: No abnormal range of motion. +2 pedal edema DERM: Warm, pink and dry. No rashes, dermatoses, petechiae or lesions. NEUROLOGICAL: Speech is clear and appropriate. Normal level of consciousness. Gait and coordination are normal. 5/5 strength in all extremities. PSYCH: Normal mood and affect. Judgement/competence is appropriate Objective Labs 02/22/25 04:52 02/22/25 04:52 Labs: Laboratory Results - last 24 hr 02/22/25 04:52 WBC 18.1 H RBC 2.75 L Hgb 8.3 L Hct 26.6 L MCV 97 MCH 30.2 MCHC 31.2 RDW Std Deviation 60.7 H Plt Count 504 H D Neut % (Auto) 64 Lymph % (Auto) 17 [place] % (Auto) 9 Eos % (Auto) 4 Baso % (Auto) 0 Neut # (Auto) 11.5 H Lymph # (Auto) 3.1 [place] # (Auto) 1.6 H Eos # (Auto) 0.7 H Baso # (Auto) 0.1 Immature Gran # (Auto) 1.03 H Absolute Nucleated RBC 0.02 H Immature Gran % 6 H Nucleated RBC % 0 Sodium 141 Potassium 3.9 Chloride 96 L Carbon Dioxide 34.8 H Anion Gap 10 BUN 13 Creatinine 0.8 Estim Creat Clear Calc 67.2 eGFR > 60 BUN/Creatinine Ratio 16 Glucose 113 H Calculated Osmolality 282 Calcium 9.7 Corrected Calcium 9.7 Phosphorus 3.9 Magnesium 2.1 Total Bilirubin 0.2 L AST 20 ALT 13 Alkaline Phosphatase 65 Total Protein 7.2 Albumin 4.1 Globulin 3.1 Albumin/Globulin Ratio 1.3 ABG Interpretation ABG results: 02/17/25 20:07 ABG pH 7.38 ABG pCO2 51 H ABG pO2 90 ABG HCO3 30 H ABG O2 Saturation 99 H ABG Base Excess 4 H Quality Measures Quality Measures VTE prophylaxis and sepsis Current suspected stage: ruled out Possible source: pulmonary Blood cultures ordered: yes Antibiotic ordered: Yes Advance care planning discussed with:: patient Assessment & Plan Assessment Current Active Medications: Generic Name Dose Route Start Last Admin Trade Name Freq PRN Reason Stop Dose Admin Acetaminophen 650 mg 02/17/25 20:47 Acetaminophen 325 Mg Tablet NG 03/19/25 20:46 Q4HR PRN Fever > 100.4 Acetaminophen 650 mg 02/17/25 20:47 Acetaminophen 325 Mg Tablet NG 03/19/25 20:46 Q6HR PRN PAIN 1-3 Albuterol/Ipratropium 3 ml 02/17/25 20:47 Albuterol/Ipratropium (Duoneb) Rt Ericka 3 Ml Nebu INH 03/19/25 20:46 Q2HR PRN WHEEZING Artificial Tears 2 drop 02/17/25 21:00 02/22/25 10:58 Artificial Tears 225 Drop/15 Ml Btl BOTH EYES 03/19/25 20:59 Not Given BID JAYMIE Ascorbic Acid 500 mg 02/17/25 21:00 02/22/25 10:40 Ascorbic Acid 250 Mg Tablet GT 03/19/25 20:59 500 mg BID JAYMIE Administration Aspirin 81 mg 02/18/25 09:00 02/22/25 10:40 Aspirin 81 Mg Chew GT 03/20/25 08:59 81 mg QDAY JAYMIE Administration Atorvastatin Calcium 40 mg 02/17/25 21:00 02/21/25 21:42 Atorvastatin Calcium 20 Mg Tablet GT 03/19/25 20:59 40 mg HS JAYMIE Administration Buspirone HCl 10 mg 02/17/25 21:00 02/22/25 10:41 Buspirone Hcl 5 Mg Tablet GT 03/19/25 20:59 10 mg BID JAYMIE Administration Carbamide Peroxide 5 drop 02/17/25 21:00 02/17/25 22:30 Carbamide Peroxide Otic Ericka 15 Ml Btl BOTH EARS 03/19/25 20:59 Not Given Q61D JAYMIE Diazepam 5 mg 02/17/25 20:47 Diazepam Inj 5 Mg/Ml Vial 2 Ml IM [id number] PRN Seizures Famotidine 20 mg 02/17/25 21:00 02/22/25 10:39 Famotidine Inj 10 Mg/Ml Vial 2 Ml IVP 03/19/25 20:59 20 mg Q12HR JAYMIE Administration Ferrous Sulfate 325 mg 02/18/25 09:00 02/22/25 10:41 Ferrous Sulf 325 Mg Tablet PO 03/20/25 08:59 325 mg BID JAYMIE Administration Glucagon 1 mg 02/17/25 20:47 Glucagon Inj 1 Mg Vial SC Q15MIN PRN Hypoglycemia Guaifenesin 300 mg 02/17/25 20:47 Guaifenesin Syrup 200 Mg/10 Ml Udc GT 03/19/25 20:46 Q6HR PRN COUGH Protocol Piperacillin/Tazobactam/Dextrose 3.375 gm in 50 mls @ 12.5 mls/hr 02/18/25 23:00 02/22/25 05:39 Zosyn IV 02/25/25 22:59 12.5 mls/hr Q8HR JAYMIE Administration Protocol Insulin Degludec 8 unit 02/18/25 18:00 02/21/25 18:18 Insulin Degludec 5 Unit/0.05 Ml (Per 5 Units) SC 03/20/25 17:59 8 unit DAILY@1800 JAYMIE Administration Insulin Human Lispro 0 unit 02/18/25 06:00 02/22/25 05:36 Insulin Lispro (Admelog) 1 Unit/0.01 Ml Unit SC 03/20/25 05:59 Not Given 06,18 [facility] Levetiracetam 1,000 mg 02/17/25 21:00 02/22/25 10:39 Levetiracetam Liqd 500 Mg/5 Ml Udc GT 03/19/25 20:59 1,000 mg BID JAYMIE Administration Ondansetron HCl 4 mg 02/17/25 20:40 Ondansetron Inj 2 Mg/Ml Inj 2 Ml IVP 03/19/25 20:39 Q6H PRN NAUSEA OR VOMITING Protocol Sodium Chloride 1 gm 02/18/25 09:00 02/22/25 10:40 Sodium Chloride 1 Gm Tablet GT 03/20/25 08:59 1 gm QDAY JAYMIE Administration Sodium Phosphate 133 ml 02/18/25 15:14 Sodium Phos,[place]-Dibasic 133 Ml (Fleet) Enema Btl RC PRN PRN No BM Per Bowel Management Protocol Valproic Acid 500 mg 02/17/25 22:00 02/22/25 05:53 Valproic Acid Syrup 250 Mg/5 Ml Udc GT 03/19/25 21:59 500 mg TID JAYMIE Administration Vancomycin HCl 125 mg 02/19/25 17:00 02/22/25 12:36 Vancomycin Oral Solution 25 Mg/Ml GT 02/25/25 09:14 125 mg ACHS JAYMIE Administration Protocol Vitamin D 1,000 iu 02/17/25 21:00 02/22/25 10:41 Cholecalciferol (Vitamin D3) 1,000 Iu Tablet GT 03/19/25 20:59 1,000 iu BID JAYMIE Administration Plan 69yo female with a history of epilepsy, HTN, HLD, DM, anoxic brain injury s/p trach and PEG tube brought in from subacute presents to the ED for complaints of shortness of breath and fever x today. Admitted for sepsis 2/2 pneumonia. #Recurrent C. difficile abdominal infection #hx of C Difficile diarrhea Patient was diagnosed with Clostridium difficle diarrhea according to records from 4 days ago. KUB showed nonobstructive bowel gas pattern, with moderate stool throughout the colon. Discontinued vancomycin capsule as patient does not eat orally, and ordered the same antibiotic in liquid form to be given through the PEG tube. + CTAP showed acute diverticulitis at the junction of the distal descending colon and sigmoid colon, no peridiverticular abscess 02/19: Positive C. difficile stool antigen testing + Patient has had lack of success with previous treatments of C. difficile with vancomycin, ID was consulted. An alternative choice at discharge is fidaxomicin. Plan: - ID, Dr Gatse, consulted, appreciate recs. - Vancomycin liquid through PEG (02/17 - - Plan to discharge patient on extended taper: Vancomycin 125 4 times a day for 7 days then Vancomycin 125 two times a day for 7 days then Vancomycin 125 one time a day for 7 days then Vancomycin 125 every two days for 4 weeks then Vancomycin 125 every three days for 4 weeks - Placed patient on contact precautions. - Discontinued bowel regimen including MiraLAX and senna to rule out false positive test result #Acute diverticulitis #Ventilator associated Pneumonia, left base pneumonia #Acute hypercapnic respiratory failure #Chronic respiratory failure status post tracheostomy on mechanical ventilation #Lactic acidosis #Leukocytosis Patient came in and found to have 2 or more SIRS criteria and was evaluated for sepsis. However, based upon further work-up, sepsis was ruled out. HR 104 RR 24 T 102.6F with IV fluids and antibiotics resolved to HR 89 RR 34 T 97.3F. Brought in from subacute floor for SOB and fever. Physical exam revealed left lung lobe rhonchi. Procal 1.12. Lactic acid 4.6 --> 4.0 with IV fluids. CXR fairly diffuse bilateral pneumonia. Respiratory therapist has been suctioning the patient multiple times. Reeived 2.4 L bolus in ED on maintenance fluids currently. WBC improved to 23.7 (02/19). ? Gram stain of sputum culture revealed GNR, pending final speciation ? Patient was treated with cefepime 1g IV Q8HR (02/17 - 02/18) ? Blood culture negative in 2 out of 2 bottles after 24h ? MRSA screen negative, discontinued IV vancomycin ? Sputum culture positive for Serratia and Pseudomonas, patient likely colonized Plan: -Zosyn 3.375 g IV Q8h (02/18 - -Duoneb 3ml INH Q2HR PRN # Insulin-dependent type 2 diabetes mellitus Plan: -Glargine 8 unit SC QD -ISS # Seizure disorder Plan: -Keppra 1g BID -Valproic acid 500mg TID -Buspar 10mg BID (anxiety) -Diazepam 5 mg IM #HTN Not hypertensive on admission or exam. No treatment indicated from subacute floor. Plan: -Consider PRNs if patient becomes hypertensive #HLD Plan: -Atorvastatin 40mg HS #Chronic normocytic anemia #GI bleed? hemoglobin dropped from 9.0 at presentation to 7.8. Nurse noted previous report of dark pasty stool. FOBT positive Patient will need colonoscopy at a later point #Status post PEG tube Tube feeds started, dietitian consulted. Health Maintenance: Code status: DNR/DNI DVT prophylaxis: Lovenox 40mg GI prophylaxis: Famotidine Diet: Tube feeding [place]: Yes Lines: PIV Supplemental O2: Ventilator Disposition: Admitted to [facility] for sepsis r/o and pneumonia This case was discussed with my attending physician, [doctor], and senior resident [resident]. Even though this this note was carefully revised, there may still be minor errors in building inspection engineer due to voice recognition software. Etta Manley DO PGY I Attending Provider Attestation/Addendum I have discussed and was present for the essential components of the history, physical examination, diagnosis, and treatment plan with the resident. I agree with the patient's care as documented by the resident and amended herein by me. Mc Canales DO. Although this document has been carefully reviewed, there may still be some phonetic and other typographical errors. These errors are purely grammatical due to imperfections in the software program and should not be construed in any way to compromise the substance of the patient's medical care during this visit. Patient seen and evaluated this AM. No acute events overnight, vital signs stable, patient afebrile overnight, per nurse, patient still having 2+ loose bowel movements overnight. Remains on mechanical ventilation, FiO2 30, SpO2 93%. Patient afebrile overnight. Blood cultures NGTD. Significant labs include a WBC of 18.1, hemoglobin stable 8.3, platelet count 504, chloride 96, bicarb 34.8,. CT abdomen pelvis demonstrating mild heart failure on 02/18, left base pneumonia, acute diverticulitis in the distal descending colon and sigmoid colon with no abscess noted and significant thickening of the urinary bladder wall. MRSA nares negative, sputum demonstrating Pseudomonas aeruginosa sensitive to Zosyn as well as Serratia marcescens also sensitive to Zosyn. Stool occult blood was positive on 02/19 however hemoglobin stable and C. difficile testing was positive. Considering the patient has acute diverticulitis and multiple episodes of C. difficile treated with vancomycin, I am going to consult infectious disease for further direction in the treatment course. Will continue oral vancomycin as well as Zosyn for now And continue to monitor closely
[2025-02-22] MEDS: INSULIN DEGLUDEC 5 UNIT/0.05 ML (PER 5 UNITS) 8 UNIT SC (18:28)
[2025-02-22] MEDS: ATORVASTATIN CALCIUM 20 MG TABLET 40 MG GT (20:14)
[2025-02-23] VITALS (10 sets, daily range): BP systolic 101–125; BP diastolic 54–73; PULSE 65–85; RESP 20–40; TEMP 36.1–36.4; O2SAT 96–99; BMI 29.0
[2025-02-23] MEDS: PIPER/TAZO 3.375 GM PREMIX 3.375 GM/50 ML BAG IV ×3 (05:07→21:32)
[2025-02-23] MEDS: VALPROIC ACID SYRUP 250 MG/5 ML UDC 500 MG GT ×3 (05:10→21:31)
[2025-02-23 05:57] LABS: Magnesium 2.2 mg/dL (1.6-2.6); Phosphorous 3.8 mg/dL (2.4-5.1)
[2025-02-23] MEDS: VANCOMYCIN 25 MG/ML 125 MG GT ×4 (08:21→21:31)
[2025-02-23] MEDS: FAMOTIDINE INJ 10 MG/ML VIAL 2 ML 20 MG IVP ×2 (08:22→21:30)
[2025-02-23] MEDS: ASCORBIC ACID 250 MG TABLET 500 MG GT ×2 (08:22→21:30)
[2025-02-23] MEDS: levETIRAcetam LIQD 500 MG/5 ML UDC 1000 MG GT ×2 (08:22→21:31)
[2025-02-23] MEDS: CHOLECALCIFEROL (Vitamin D3) 1,000 IU TABLET 1000 IU GT ×2 (08:22→21:30)
[2025-02-23] MEDS: SODIUM CHLORIDE 1 GM TABLET GT (08:22)
[2025-02-23] MEDS: ASPIRIN 81 MG CHEW GT (08:22)
[2025-02-23] MEDS: FERROUS SULF 325 MG TABLET PO (08:23)
[2025-02-23 10:09] LABS: Basophils # (Auto) 0.1 Thou/mm3 (0.0-0.2); Basophils % (Auto) 1 % (0-2.5); Eosinophils # (Auto) 0.6 Thou/mm3 (0.0-0.5); Eosinophils % (Auto) 4 % (0-10); Hematocrit 24.4 % (36.0-46.0); Immature Granulocytes Auto 0.98 Thou/mm3 (0.00-0.00); Lymphocytes # (Auto) 3.1 Thou/mm3 (1.0-4.8); Lymphocytes % (Auto) 20 % (10-50); Mean Corpuscular HGB Conc 31.1 g/dl (31.0-37.0); Mean Corpuscular Hemoglobin 30.4 pg (25.0-35.0); Mean Corpuscular Volume 98 fL (80-100); Monocytes # (Auto) 1.6 Thou/mm3 (0.0-0.8); Monocytes % (Auto) 11 % (0-12); Neutrophils # (Auto) 8.8 Thou/mm3 (1.8-7.7); Neutrophils % (Auto) 58 % (37-80); Nucleated Red Blood Cell # 0.00 Thou/mm3 (0.00-0.00); Nucleated Red Blood Cell % 0 /100 WBC (0); Platelet Count 445 Thou/mm3 (140-440); RDW Standard Deviation 61.4 fL (36.4-46.3); Red Blood Count 2.50 Miln/mm3 (4.00-5.20); White Blood Count 15.2 Thou/mm3 (3.6-11.0)
[2025-02-23 10:14] LABS: Hemoglobin 7.6 g/dL (12.0-16.0)
[2025-02-23 10:48] LABS: Anion Gap 9 (7-16); BUN/Creatinine Ratio 18 Ratio (12-20); Blood Urea Nitrogen 14 mg/dL (9-23); Calcium 8.6 mg/dL (8.3-10.6); Carbon Dioxide 34.2 mMol/L (20.0-31.0); Chloride 97 mMol/L (98-107); Creatinine (Component) 0.8 mg/dL (0.6-1.3); Estimated Creatinine Clearance 66.6 mL/min (>60); Glucose 127 mg/dL (74-106); Osmolality,Calculated 281 (275-295); Potassium 3.8 mMol/L (3.4-5.1); Sodium 140 mMol/L (136-145); eGFR > 60 See Note
--- NOTE | 2025-02-23 15:08 | ESPR_ITS ---
<Statement entered by Oliverio Wells MD - 02/23/25 18:00> Patient seen and examined at bedside. I discussed and supervised with the commissioner of internal revenue physician who took care of this patient. I personally saw and examined the patient. I agree with most of the assessment and plan. Continuing treatment for C. Diff, diverticulitis. Pending ID recs. Plan of care discussed with attending Dr. Canales. Oliverio Wells MD PGY-2 Documentation for date of: 02/23/25 Subjective Subjective Interval history: Patient was seen and examined at bedside. No acute events took place overnight. Patient has been having loose/watery BM, while she has stayed afebrile. Patient continues to have elevated white count 15.2. Patient is on continuous feeding with 50 mL/h, and 30 mL liter water flushes every 1/2 hour. Will continue with IV Zosyn and oral vancomycin. ID consult on Monday for fidaxomicin at discharge, as patient has had lack of treatment success with vancomycin with recurrent C diff infection twice before. Patient demonstrates course expiratory breath sounds on lung exam. Sputum culture positive for Serratia and Pseudomonas same as before patient likely a colonizer. will be discharged on Monday morning to subacute. Exam Vital Signs Temp Pulse Resp BP Pulse Ox O2 Del Method FiO2 97.0 F 76 20 117/58 L 97 Mechanical Ventilation 30 02/23/25 12:00 02/23/25 12:00 02/23/25 12:00 02/23/25 12:00 02/23/25 12:00 02/23/25 12:00 02/23/25 12:00 Narrative Exam GENERAL APPEARANCE: AOx0. NAD, on ventilator. Pt is able to track with eyes and nod yes to questions. Trach'd and PEG'd HEENT: Normocephalic atraumatic, no facial trauma, neck is supple. Lids/conjunctiva normal. Mucous membranes moist, nares normal, lips/teeth normal uvula midline without oral pharyngeal erythema, exudate or swelling TMs normal bilaterally. No lymphangitis/lymphedema. CARDIAC: Regular rate and rhythm, S1+S2 heard. No murmurs, rubs, or gallops noted RESPIRATORY: mechanical ventilation, tracheostomy site clean, no accessory muscle use. Coarse breath sounds present in bilateral lower lobes. ABDOMINAL: NBS. Soft, ND/NT. No evidence of fluid wave. No pulsatile masses on exam, rebound tenderness. Patient grimaces with palpation of the abdomen that is soft, but tender. +PEG tube MUSCLES/EXTREMITIES: No abnormal range of motion. +2 pedal edema DERM: Warm, pink and dry. No rashes, dermatoses, petechiae or lesions. NEUROLOGICAL: Speech is clear and appropriate. Normal level of consciousness. Gait and coordination are normal. 5/5 strength in all extremities. PSYCH: Normal mood and affect. Judgement/competence is appropriate Objective Labs 02/25/25 04:25 02/25/25 04:25 Labs: Laboratory Results - last 24 hr 02/23/25 02/23/25 04:38 09:48 WBC 15.2 H RBC 2.50 L Hgb 7.6 L Hct 24.4 L MCV 98 MCH 30.4 MCHC 31.1 RDW Std Deviation 61.4 H Plt Count 445 H D Neut % (Auto) 58 Lymph % (Auto) 20 [place] % (Auto) 11 Eos % (Auto) 4 Baso % (Auto) 1 Neut # (Auto) 8.8 H Lymph # (Auto) 3.1 [place] # (Auto) 1.6 H Eos # (Auto) 0.6 H Baso # (Auto) 0.1 Immature Gran # (Auto) 0.98 H Absolute Nucleated RBC 0.00 Immature Gran % 7 H Nucleated RBC % 0 Sodium 140 Potassium 3.8 Chloride 97 L Carbon Dioxide 34.2 H Anion Gap 9 BUN 14 Creatinine 0.8 Estim Creat Clear Calc 66.6 eGFR > 60 BUN/Creatinine Ratio 18 Glucose 127 H Calculated Osmolality 281 Calcium 8.6 Phosphorus 3.8 Magnesium 2.2 ABG Interpretation ABG results: 02/17/25 20:07 ABG pH 7.38 ABG pCO2 51 H ABG pO2 90 ABG HCO3 30 H ABG O2 Saturation 99 H ABG Base Excess 4 H Quality Measures Quality Measures VTE prophylaxis and sepsis Current suspected stage: ruled out Possible source: pulmonary Blood cultures ordered: yes Antibiotic ordered: Yes Advance care planning discussed with:: patient Assessment & Plan Assessment Current Active Medications: Generic Name Dose Route Start Last Admin Trade Name Freq PRN Reason Stop Dose Admin Acetaminophen 650 mg 02/17/25 20:47 Acetaminophen 325 Mg Tablet NG 03/19/25 20:46 Q4HR PRN Fever > 100.4 Acetaminophen 650 mg 02/17/25 20:47 Acetaminophen 325 Mg Tablet NG 03/19/25 20:46 Q6HR PRN PAIN 1-3 Albuterol/Ipratropium 3 ml 02/17/25 20:47 Albuterol/Ipratropium (Duoneb) Rt Ericka 3 Ml Nebu INH 03/19/25 20:46 Q2HR PRN WHEEZING Artificial Tears 2 drop 02/17/25 21:00 02/23/25 08:41 Artificial Tears 225 Drop/15 Ml Btl BOTH EYES 03/19/25 20:59 Not Given BID JAYMIE Ascorbic Acid 500 mg 02/17/25 21:00 02/23/25 08:22 Ascorbic Acid 250 Mg Tablet GT 03/19/25 20:59 500 mg BID JAYMIE Administration Aspirin 81 mg 02/18/25 09:00 02/23/25 08:22 Aspirin 81 Mg Chew GT 03/20/25 08:59 81 mg QDAY JAYMIE Administration Atorvastatin Calcium 40 mg 02/17/25 21:00 02/22/25 20:14 Atorvastatin Calcium 20 Mg Tablet GT 03/19/25 20:59 40 mg HS JAYMIE Administration Buspirone HCl 10 mg 02/17/25 21:00 02/23/25 08:22 Buspirone Hcl 5 Mg Tablet GT 03/19/25 20:59 10 mg BID JAYMIE Administration Carbamide Peroxide 5 drop 02/17/25 21:00 02/17/25 22:30 Carbamide Peroxide Otic Ericka 15 Ml Btl BOTH EARS 03/19/25 20:59 Not Given Q61D JAYMIE Diazepam 5 mg 02/17/25 20:47 Diazepam Inj 5 Mg/Ml Vial 2 Ml IM [id number] PRN Seizures Famotidine 20 mg 02/17/25 21:00 02/23/25 08:22 Famotidine Inj 10 Mg/Ml Vial 2 Ml IVP 03/19/25 20:59 20 mg Q12HR JAYMIE Administration Glucagon 1 mg 02/17/25 20:47 Glucagon Inj 1 Mg Vial SC Q15MIN PRN Hypoglycemia Guaifenesin 300 mg 02/17/25 20:47 Guaifenesin Syrup 200 Mg/10 Ml Udc GT 03/19/25 20:46 Q6HR PRN COUGH Protocol Piperacillin/Tazobactam/Dextrose 3.375 gm in 50 mls @ 12.5 mls/hr 02/18/25 23:00 02/23/25 13:57 Zosyn IV 02/25/25 22:59 12.5 mls/hr Q8HR JAYMIE Administration Protocol Insulin Degludec 8 unit 02/18/25 18:00 02/22/25 18:28 Insulin Degludec 5 Unit/0.05 Ml (Per 5 Units) SC 03/20/25 17:59 8 unit DAILY@1800 JAYMIE Administration Insulin Human Lispro 0 unit 02/18/25 06:00 02/23/25 05:40 Insulin Lispro (Admelog) 1 Unit/0.01 Ml Unit SC 03/20/25 05:59 Not Given [facility] Levetiracetam 1,000 mg 02/17/25 21:00 02/23/25 08:22 Levetiracetam Liqd 500 Mg/5 Ml Udc 03/19/25 20:59 1,000 mg BID JAYMIE Administration Ondansetron HCl 4 mg 02/17/25 20:40 Ondansetron Inj 2 Mg/Ml Inj 2 Ml IVP 03/19/25 20:39 Q6H PRN NAUSEA OR VOMITING Protocol Sodium Chloride 1 gm 02/18/25 09:00 02/23/25 08:22 Sodium Chloride 1 Gm Tablet 03/20/25 08:59 1 gm QDAY JAYMIE Administration Sodium Phosphate 133 ml 02/18/25 15:14 Sodium Phos,[place]-Dibasic 133 Ml (Fleet) Enema Btl RC PRN PRN No BM Per Bowel Management Protocol Valproic Acid 500 mg 02/17/25 22:00 02/23/25 13:57 Valproic Acid Syrup 250 Mg/5 Ml Udc GT 03/19/25 21:59 500 mg TID JAYMIE Administration Vancomycin HCl 125 mg 02/19/25 17:00 02/23/25 11:50 Vancomycin Oral Solution 25 Mg/Ml GT 02/25/25 09:14 125 mg ACHS JAYMIE Administration Protocol Vitamin D 1,000 iu 02/17/25 21:00 02/23/25 08:22 Cholecalciferol (Vitamin D3) 1,000 Iu Tablet GT 03/19/25 20:59 1,000 iu BID JAYMIE Administration Plan 69yo female with a history of epilepsy, HTN, HLD, DM, anoxic brain injury s/p trach and PEG tube brought in from subacute presents to the ED for complaints of shortness of breath and fever x today. Admitted for sepsis 2/2 pneumonia. #Recurrent C. difficile abdominal infection #hx of C Difficile diarrhea Patient was diagnosed with Clostridium difficle diarrhea according to records from 4 days ago. KUB showed nonobstructive bowel gas pattern, with moderate stool throughout the colon. Discontinued vancomycin capsule as patient does not eat orally, and ordered the same antibiotic in liquid form to be given through the PEG tube. + CTAP showed acute diverticulitis at the junction of the distal descending colon and sigmoid colon, no peridiverticular abscess 02/19: Positive C. difficile stool antigen testing + Patient has had lack of success with previous treatments of C. difficile with vancomycin, ID was consulted. An alternative choice at discharge is fidaxomicin. Plan: - ID, Dr Gates, consulted, appreciate recs. - Vancomycin liquid through PEG (02/17 - - Plan to discharge patient on extended taper: Vancomycin 125 4 times a day for 7 days then Vancomycin 125 two times a day for 7 days then Vancomycin 125 one time a day for 7 days then Vancomycin 125 every two days for 4 weeks then Vancomycin 125 every three days for 4 weeks - Placed patient on contact precautions. - Discontinued bowel regimen including MiraLAX and senna to rule out false positive test result #Acute diverticulitis #Ventilator associated Pneumonia, left base pneumonia #Acute hypercapnic respiratory failure #Chronic respiratory failure status post tracheostomy on mechanical ventilation #Lactic acidosis #Leukocytosis Patient came in and found to have 2 or more SIRS criteria and was evaluated for sepsis. However, based upon further work-up, sepsis was ruled out. HR 104 RR 24 T 102.6F with IV fluids and antibiotics resolved to HR 89 RR 34 T 97.3F. Brought in from subacute floor for SOB and fever. Physical exam revealed left lung lobe rhonchi. Procal 1.12. Lactic acid 4.6 --> 4.0 with IV fluids. CXR fairly diffuse bilateral pneumonia. Respiratory therapist has been suctioning the patient multiple times. Reeived 2.4 L bolus in ED on maintenance fluids currently. WBC improved to 23.7 (02/19). ? Gram stain of sputum culture revealed GNR, pending final speciation ? Patient was treated with cefepime 1g IV Q8HR (02/17 - 02/18) ? Blood culture negative in 2 out of 2 bottles after 24h ? MRSA screen negative, discontinued IV vancomycin ? Sputum culture positive for Serratia and Pseudomonas, patient likely colonized Plan: -Zosyn 3.375 g IV Q8h (02/18 - -Duoneb 3ml INH Q2HR PRN #PEG Tube Feeding Patient is on continuous feeding with 50 mL/h, and 30 mL liter water flushes every 1/2 hour. # Insulin-dependent type 2 diabetes mellitus Plan: -Glargine 8 unit SC QD -ISS # Seizure disorder Plan: -Keppra 1g BID -Valproic acid 500mg TID -Buspar 10mg BID (anxiety) -Diazepam 5 mg IM #HTN Not hypertensive on admission or exam. No treatment indicated from subacute floor. Plan: -Consider PRNs if patient becomes hypertensive #HLD Plan: -Atorvastatin 40mg HS #Chronic normocytic anemia #GI bleed? hemoglobin dropped from 9.0 at presentation to 7.8. Nurse noted previous report of dark pasty stool. FOBT positive Patient will need colonoscopy at a later point #Status post PEG tube Tube feeds started, dietitian consulted. Health Maintenance: Code status: DNR/DNI DVT prophylaxis: Lovenox 40mg GI prophylaxis: Famotidine Diet: Tube feeding [place]: Yes Lines: PIV Supplemental O2: Ventilator Disposition: Admitted to [facility] for sepsis r/o and pneumonia This case was discussed with my attending physician, Dr. Canales, and senior resident, Dr Welsl. Even though this this note was carefully revised, there may still be minor errors in net developer contract due to voice recognition software. Etta Manley DO PGY I Attending Provider Attestation/Addendum I have discussed and was present for the essential components of the history, physical examination, diagnosis, and treatment plan with the resident. I agree with the patient's care as documented by the resident and amended herein by me. Mc Canales DO. Although this document has been carefully reviewed, there may still be some phonetic and other typographical errors. These errors are purely grammatical due to imperfections in the software program and should not be construed in any way to compromise the substance of the patient's medical care during this visit.
[2025-02-23] MEDS: INSULIN DEGLUDEC 5 UNIT/0.05 ML (PER 5 UNITS) 8 UNIT SC (17:04)
[2025-02-23] MEDS: ATORVASTATIN CALCIUM 20 MG TABLET 40 MG GT (21:30)
[2025-02-23] MEDS: Artificial Tears 225 DROP/15 ML BTL BOTH EYES (21:31)
[2025-02-24] VITALS (12 sets, daily range): BP systolic 91–129; BP diastolic 55–72; PULSE 70–90; RESP 18–34; TEMP 35.9–36.4; O2SAT 95–99; BMI 29.0
[2025-02-24] MEDS: VALPROIC ACID SYRUP 250 MG/5 ML UDC 500 MG GT ×3 (05:24→23:07)
[2025-02-24] MEDS: PIPER/TAZO 3.375 GM PREMIX 3.375 GM/50 ML BAG IV (05:24)
[2025-02-24 05:52] LABS: Basophils # (Auto) 0.2 Thou/mm3 (0.0-0.2); Basophils % (Auto) 2 % (0-2.5); Eosinophils # (Auto) 0.6 Thou/mm3 (0.0-0.5); Eosinophils % (Auto) 4 % (0-10); Hematocrit 26.9 % (36.0-46.0); Immature Granulocytes Auto 0.86 Thou/mm3 (0.00-0.00); Lymphocytes # (Auto) 2.7 Thou/mm3 (1.0-4.8); Lymphocytes % (Auto) 19 % (10-50); Mean Corpuscular HGB Conc 31.6 g/dl (31.0-37.0); Mean Corpuscular Hemoglobin 30.5 pg (25.0-35.0); Mean Corpuscular Volume 96 fL (80-100); Monocytes # (Auto) 1.5 Thou/mm3 (0.0-0.8); Monocytes % (Auto) 11 % (0-12); Neutrophils # (Auto) 8.4 Thou/mm3 (1.8-7.7); Neutrophils % (Auto) 59 % (37-80); Nucleated Red Blood Cell # 0.03 Thou/mm3 (0.00-0.00); Nucleated Red Blood Cell % 0 /100 WBC (0); Platelet Count 515 Thou/mm3 (140-440); RDW Standard Deviation 61.4 fL (36.4-46.3); Red Blood Count 2.79 Miln/mm3 (4.00-5.20); White Blood Count 14.2 Thou/mm3 (3.6-11.0)
[2025-02-24 06:05] LABS: Hemoglobin 8.5 g/dL (12.0-16.0)
[2025-02-24 06:23] LABS: Glucose Estimated Average 100 mg/dL (80-131); Hemoglobin A1C 5.1 % Hgb (4.8-6.0)
[2025-02-24 06:40] LABS: Alanine Aminotransferase 8 U/L (10-49); Albumin, Serum 4.1 gm/dL (3.4-4.8); Albumin/Globulin Ratio 1.2 (1.2-2.2); Alkaline Phosphatase 63 U/L (46-116); Anion Gap 10 (7-16); Aspartate Amino Transferase 25 U/L (0-34); BUN/Creatinine Ratio 17 Ratio (12-20); Bilirubin,Total 0.2 mg/dL (0.3-1.2); Blood Urea Nitrogen 12 mg/dL (9-23); Calcium 9.2 mg/dL (8.3-10.6); Calcium (Corrected) 9.2 mg/dL (8.5-10.1); Carbon Dioxide 31.9 mMol/L (20.0-31.0); Chloride 97 mMol/L (98-107); Creatinine (Component) 0.7 mg/dL (0.6-1.3); Estimated Creatinine Clearance 75.1 mL/min (>60); Globulin 3.3 gm/dL (2.3-3.5); Glucose 122 mg/dL (74-106); Glucose,Fasting 122 mg/dL (74-106); Magnesium 2.5 mg/dL (1.6-2.6); Osmolality,Calculated 278 (275-295); Phosphorous 3.9 mg/dL (2.4-5.1); Potassium 4.2 mMol/L (3.4-5.1); Sodium 139 mMol/L (136-145); Total Protein 7.4 gm/dL (5.7-8.2); eGFR > 60 See Note
[2025-02-24] MEDS: levETIRAcetam LIQD 500 MG/5 ML UDC 1000 MG GT ×2 (08:14→23:07)
[2025-02-24] MEDS: FAMOTIDINE INJ 10 MG/ML VIAL 2 ML 20 MG IVP ×2 (08:15→23:48)
[2025-02-24] MEDS: CHOLECALCIFEROL (Vitamin D3) 1,000 IU TABLET 1000 IU GT ×2 (08:15→23:08)
[2025-02-24] MEDS: ASPIRIN 81 MG CHEW GT (08:15)
[2025-02-24] MEDS: Artificial Tears 225 DROP/15 ML BTL BOTH EYES ×2 (08:15→23:19)
[2025-02-24] MEDS: SODIUM CHLORIDE 1 GM TABLET GT (08:16)
[2025-02-24] MEDS: VANCOMYCIN 25 MG/ML 125 MG GT (08:16)
[2025-02-24] MEDS: ASCORBIC ACID 250 MG TABLET 500 MG GT ×2 (08:19→23:05)
--- NOTE | 2025-02-24 09:34 | PD.IDPROG ---
Subjective Subjective Interval history: treating for pneudmonia. zosyn ok but an oral quinolone will also work. Exam Vital Signs Temp Pulse Resp BP Pulse Ox O2 Del Method FiO2 97 F 90 25 H 102/58 L 95 Mechanical Ventilation 30 02/24/25 08:00 02/24/25 08:13 02/24/25 08:13 02/24/25 08:00 02/24/25 08:13 02/24/25 08:00 02/24/25 08:13 Objective - Internal Medicine Labs 02/23/25 09:48 02/23/25 09:48 Labs: Laboratory Results - last 24 hr 02/23/25 09:48 WBC 15.2 H RBC 2.50 L Hgb 7.6 L Hct 24.4 L MCV 98 MCH 30.4 MCHC 31.1 RDW Std Deviation 61.4 H Plt Count 445 H D Neut % (Auto) 58 Lymph % (Auto) 20 [place] % (Auto) 11 Eos % (Auto) 4 Baso % (Auto) 1 Neut # (Auto) 8.8 H Lymph # (Auto) 3.1 [place] # (Auto) 1.6 H Eos # (Auto) 0.6 H Baso # (Auto) 0.1 Immature Gran # (Auto) 0.98 H Absolute Nucleated RBC 0.00 Immature Gran % 7 H Nucleated RBC % 0 Sodium 140 Potassium 3.8 Chloride 97 L Carbon Dioxide 34.2 H Anion Gap 9 BUN 14 Creatinine 0.8 Estim Creat Clear Calc 66.6 eGFR > 60 BUN/Creatinine Ratio 18 Glucose 127 H Calculated Osmolality 281 Calcium 8.6 ABG Interpretation ABG results: 02/17/25 20:07 ABG pH 7.38 ABG pCO2 51 H ABG pO2 90 ABG HCO3 30 H ABG O2 Saturation 99 H ABG Base Excess 4 H Assessment & Plan A&P Narrative pneumonia by imaging and sputum cx persistent diarrhea. cdiff pos dm II, a1c <5.7 noted ok to add dificid to regimen 200 bid for 10d. no approved taper. please do not recheck cdiff test as it may be overly s on tf so loose stools can be from the tf too. Time Spent With Patient Time: Total time spent is greater than 50% in coordination of care (as documented) at patient's floor/unit and/or counseling patient:
--- NOTE | 2025-02-24 09:40 | PC.SS ---
Follow up note: Dr. Nunes recommendation's pending. On IV antibiotic. Positive for CDIFF. Pt will return to [facility] upon dc.
--- NOTE | 2025-02-24 09:42 | PC.SS ---
Follow up note: Dr. Nunes's recommendations pending. On IV antibiotic. Positive for CDIFF. Pt will return to [facility] upon dc.
--- NOTE | 2025-02-24 10:31 | ESCONSULT_ITS ---
<Statement entered by Pilo Gates MD - 02/26/25 10:14> pt seen with resident. all findings confirmed. not able to interact for me this pm. HPI Data of Consult Requesting Physician: Ivelisse Sam DO Admitting Provider: Andrew Nolen MD Attending Provider: Ivelisse Sam DO Primary Care Provider: Physician No Primary/Family Consult Narrative History of present illness: Patient is 69 yr female with PMH of HTN, HLD, type 2 diabetes, epilepsy s/p trach and PEG tube was brought in from [facility] on 02/17 after noted to have a fever with leukocytosis 31, elevated LA 4.6, Hgb 9.0, Procal 1.12. UA unremarkable and CXR showed bilateral pneumonia and was started on cefepime and vancomycin empirically for HAP. Sputum culture positive for Serratia and Pseudomonas and blood cultures are negative. Repeat C. diff PCR is positive ID is consulted for further recommendation on treatment of C. Diff as despite multiple treatment courses pt continues to have positive PCR for C. diff PMH: Epilepsy, hypertension, hyperlipidemia, diabetes mellitus PSH: Unknown SH: Unknown Allergies: Codeine cc:: cc: Ivelisse Sam DO Exam Vital Signs Temp Pulse Resp BP Pulse Ox O2 Del Method FiO2 97 F 90 25 H 102/58 L 95 Mechanical Ventilation 30 02/24/25 08:00 02/24/25 08:13 02/24/25 08:13 02/24/25 08:00 02/24/25 08:13 02/24/25 08:00 02/24/25 08:13 Results Labs 02/25/25 04:25 02/25/25 04:25 Labs: BMP 02/23/25 09:48 Sodium 140 Potassium 3.8 Chloride 97 L Carbon Dioxide 34.2 H BUN 14 Creatinine 0.8 Glucose 127 H Calcium 8.6 ABG Interpretation ABG results: 02/17/25 20:07 ABG pH 7.38 ABG pCO2 51 H ABG pO2 90 ABG HCO3 30 H ABG O2 Saturation 99 H ABG Base Excess 4 H Quality Measures Quality Measures VTE prophylaxis and sepsis Current suspected stage: ruled out Possible source: pulmonary Blood cultures ordered: yes Antibiotic ordered: No Advance care planning discussed with:: other Medications Home Medications and Allergies Home Medications ?Medication ?Instructions ?Recorded ?Confirmed ?Type acetaminophen 325 mg tablet 650 mg G-tube Q4HR PRN Fev er > 02/24/25 02/18/25 History 100.4 artificial 2 drp Both eyes BID 02/24/25 02/18/25 History tears(fbogqaf-wyktzfmt-itnhyqf) 0.1 %-0.3 %-0.2 % eye drops (GenTeal Tears Moderate) ascorbic acid (vitamin C) 500 mg 500 mg G-tube BID sup plement 02/24/25 02/18/25 History tablet aspirin 81 mg chewable tablet 81 mg G-tube QDAY 02/18/25 History atorvastatin 20 mg tablet 40 mg G-tube HS hyperlipidem ia 02/24/25 02/18/25 History bisacodyl 10 mg rectal suppository 10 mg NJ PRN PRN No BM Per Bowel 02/24/25 02/18/25 History (Dulcolax (bisacodyl)) Management Protocol buspirone 10 mg tablet 10 mg G-tube BID for depress ion 02/24/25 02/18/25 History cholecalciferol (vitamin D3) 25 25 mcg G-tube BID supp lement 02/24/25 02/18/25 History mcg (1,000 unit) tablet enoxaparin 40 mg/0.4 mL 40 mg SCi QDAY blood thinner 02/24/25 02/18/25 History subcutaneous syringe glucagon 1 mg/0.2 mL subcutaneous 1 mg IM Q15MIN PRN H ypoglycemia 02/24/25 02/18/25 History solution (Gvoke) insulin glargine-yfgn 100 unit/mL 8 unit SCi DAILY@180 0 Diabetes 02/24/25 02/18/25 History (3 mL) subcutaneous pen levetiracetam 100 mg/mL oral 1,000 mg G-tube BID seizu res 02/24/25 02/18/25 History solution magnesium hydroxide 400 mg/5 mL 30 ml G-tube PRN PRN C onstipation 02/24/25 02/18/25 History oral suspension (Milk of Magnesia) polyethylene glycol 3350 17 gram 17 g G-tube PRN PRN N o BM Per 02/24/25 02/18/25 History oral powder packet Bowel Management Protocol sodium chloride 1,000 mg soluble 1,000 mg G-tube QDAY 02/24/25 02/18/25 History tablet valproic acid (as sodium salt) 250 500 mg G-tube TID 1 04/27/24 02/18/25 History mg/5 mL oral solution Allergies Allergy/AdvReac Type Severity Reaction Status Date / Time codeine Allergy Verified 06/24/24 19:33 Visit Medications Acetaminophen (Acetaminophen 325 Mg Tablet) 650 mg NG Q4HR PRN PRN Reason: Fever > 100.4 Stop: 03/19/25 20:46 Acetaminophen (Acetaminophen 325 Mg Tablet) 650 mg NG Q6HR PRN PRN Reason: PAIN 1-3 Stop: 03/19/25 20:46 Albuterol/Ipratropium (Albuterol/Ipratropium (Duoneb) Rt Ericka 3 Ml Nebu) 3 ml INH Q2HR PRN PRN Reason: WHEEZING Stop: 03/19/25 20:46 Artificial Tears (Artificial Tears 225 Drop/15 Ml Btl) 2 drop BOTH EYES BID JAYMIE Stop: 03/19/25 20:59 Last Admin: 02/24/25 08:15 Dose: 2 drops Ascorbic Acid (Ascorbic Acid 250 Mg Tablet) 500 mg GT BID JAYMIE Stop: 03/19/25 20:59 Last Admin: 02/24/25 08:19 Dose: 500 mg Aspirin (Aspirin 81 Mg Chew) 81 mg GT QDAY JAYMIE Stop: 03/20/25 08:59 Last Admin: 02/24/25 08:15 Dose: 81 mg Atorvastatin Calcium (Atorvastatin Calcium 20 Mg Tablet) 40 mg GT HS JAYMIE Stop: 03/19/25 20:59 Last Admin: 02/23/25 21:30 Dose: 40 mg Buspirone HCl (Buspirone Hcl 5 Mg Tablet) 10 mg GT BID JAYMIE Stop: 03/19/25 20:59 Last Admin: 02/24/25 08:15 Dose: 10 mg Carbamide Peroxide (Carbamide Peroxide Otic Ericka 15 Ml Btl) 5 drop BOTH EARS Q61D JAYMIE Stop: 03/19/25 20:59 Last Admin: 02/17/25 22:30 Dose: Not Given Diazepam (Diazepam Inj 5 Mg/Ml Vial 2 Ml) 5 mg IM [id number] PRN PRN Reason: Seizures Famotidine (Famotidine Inj 10 Mg/Ml Vial 2 Ml) 20 mg IVP Q12HR JAYMIE Stop: 03/19/25 20:59 Last Admin: 02/24/25 08:15 Dose: 20 mg Fidaxomicin (Fidaxomicin 200 Mg Tablet (Non-Formulary)) 200 mg PO BID [facility] Stop: 03/06/25 20:59 Glucagon (Glucagon Inj 1 Mg Vial) 1 mg SC Q15MIN PRN PRN Reason: Hypoglycemia Guaifenesin (Guaifenesin Syrup 200 Mg/10 Ml Udc) 300 mg GT Q6HR PRN; Protocol PRN Reason: COUGH Stop: 03/19/25 20:46 Insulin Degludec (Insulin Degludec 5 Unit/0.05 Ml (Per 5 Units)) 8 unit SC DAILY@1800 [facility] Stop: 03/20/25 17:59 Last Admin: 02/23/25 17:04 Dose: 8 unit Insulin Human Lispro (Insulin Lispro (Admelog) 1 Unit/0.01 Ml Unit) 0 unit SC 06,18 JAYMIE Stop: 03/20/25 05:59 Last Admin: 02/24/25 05:21 Dose: Not Given Levetiracetam (Levetiracetam Liqd 500 Mg/5 Ml Udc) 1,000 mg GT BID [facility] Stop: 03/19/25 20:59 Last Admin: 02/24/25 08:14 Dose: 1,000 mg Ondansetron HCl (Ondansetron Inj 2 Mg/Ml Inj 2 Ml) 4 mg IVP Q6H PRN; Protocol PRN Reason: NAUSEA OR VOMITING Stop: 03/19/25 20:39 Sodium Chloride (Sodium Chloride 1 Gm Tablet) 1 gm GT QDAY JAYMIE Stop: 03/20/25 08:59 Last Admin: 02/24/25 08:16 Dose: 1 gm Sodium Phosphate (Sodium Phos,Wells-Dibasic 133 Ml (Fleet) Enema Btl) 133 ml RC PRN PRN PRN Reason: No BM Per Bowel Management Protocol Valproic Acid (Valproic Acid Syrup 250 Mg/5 Ml Udc) 500 mg GT TID JAYMIE Stop: 03/19/25 21:59 Last Admin: 02/24/25 05:24 Dose: 500 mg Vitamin D (Cholecalciferol (Vitamin D3) 1,000 Iu Tablet) 1,000 iu GT BID JAYMIE Stop: 03/19/25 20:59 Last Admin: 02/24/25 08:15 Dose: 1,000 iu Discontinued Medications Hydrocodone Bitart/Acetaminophen (Hydrocodone/Apap 5/325 Tablet) 1 tab PO Q4HR PRN PRN Reason: PAIN SCALE 4-6 (Moderate Stop: 02/22/25 20:39 Bisacodyl (Bisacodyl 10 Mg Supp) 10 mg NJ PRN PRN; Protocol PRN Reason: No BM Per Bowel Management Protocol Stop: 03/19/25 20:46 Enoxaparin Sodium (Enoxaparin Sod Inj 40 Mg/0.4 Ml Syringe) 40 mg SC QDAY JAYMIE Stop: 03/04/25 08:59 Last Admin: 02/19/25 09:32 Dose: 40 mg Ferrous Sulfate (Ferrous Sulf 325 Mg Tablet) 325 mg PO BID JAYMIE Stop: 03/20/25 08:59 Last Admin: 02/23/25 08:23 Dose: 325 mg Ferrous Sulfate (Ferrous Sulf 325 Mg Tablet) 325 mg PO DAILY JAYMIE Stop: 03/26/25 08:59 Furosemide (Furosemide Inj 10 Mg/Ml Vial 2 Ml) 20 mg IVP X1 ONE Stop: 02/21/25 09:01 Last Admin: 02/21/25 11:44 Dose: 20 mg Guaifenesin (Guaifenesin Syrup 200 Mg/10 Ml Udc) 200 mg GT X1 ONE; Protocol Stop: 02/20/25 10:43 Last Admin: 02/20/25 11:06 Dose: 200 mg Cefepime HCl 1 gm/ Sodium (Chloride) 50 mls @ 100 mls/hr IV X1 ONE Stop: 02/17/25 18:55 Last Infusion: 02/17/25 20:01 Dose: Infused Vancomycin HCl 2,000 mg/ (Sodium Chloride) 500 mls @ 150 mls/hr IV X1 ONE Stop: 02/17/25 22:04 Last Admin: 02/17/25 20:33 Dose: 150 mls/hr Lactated Ringer's (Lactated Ringers) 2,463 mls @ 2,463 mls/hr 30 ml/kg infuse over 60 min (2463 ml) IV .Q1H ONE Stop: 02/17/25 20:29 Last Admin: 02/17/25 19:56 Dose: 2,463 mls/hr Lactated Ringer's (Lactated Ringers) 1,000 mls @ 125 mls/hr IV .Q8H [facility] Stop: 03/19/25 20:44 Last Admin: 02/18/25 05:10 Dose: Not Given Cefepime HCl 1 gm/ Sodium (Chloride) 50 mls @ 100 mls/hr IV Q8HR JAYMIE Stop: 02/25/25 05:59 Last Admin: 02/18/25 05:11 Dose: 100 mls/hr Cefepime HCl 2 gm/ Sodium (Chloride) 50 mls @ 100 mls/hr IV Q8HR [facility] Stop: 02/25/25 06:29 Last Admin: 02/18/25 15:16 Dose: Not Given Vancomycin/Sodium Chloride (Vancomycin/Ns 750 Mg Ivpb) 750 mg in 150 mls @ 150 mls/hr IV BID@1000,2200 JAYMIE; Protocol Stop: 02/25/25 07:14 Last Admin: 02/19/25 10:46 Dose: Not Given Cefepime HCl 2 gm/ Sodium (Chloride) 50 mls @ 100 mls/hr IV Q8HR [facility] Stop: 02/25/25 15:14 Last Admin: 02/18/25 15:17 Dose: 100 mls/hr Piperacillin/Tazobactam/Dextrose (Zosyn) 3.375 gm in 50 mls @ 12.5 mls/hr IV Q8HR JAYMIE; Protocol Stop: 02/25/25 22:59 Last Admin: 02/24/25 05:24 Dose: 12.5 mls/hr Piperacillin/Tazobactam/Dextrose (Zosyn) 3.375 gm in 50 mls @ 100 mls/hr IV X1 ONE; Protocol Stop: 02/18/25 19:29 Last Admin: 02/18/25 19:21 Dose: 100 mls/hr Magnesium Hydroxide (Milk Of Magnesia Susp 30 Ml Udc) 30 ml GT PRN PRN; Protocol PRN Reason: CONSTIPATION Stop: 03/19/25 20:46 Morphine Sulfate (Morphine Sulf Inj 4 Mg/Ml Vial) 1 mg IVP Q4HR PRN PRN Reason: PAIN SCALE 7-10 (Severe Stop: 02/22/25 20:39 Last Admin: 02/18/25 02:54 Dose: 1 mg Non-Formulary Medication (Insulin Glargine-Yfgn) 8 unit SC DAILY@1800 JAYMIE Stop: 03/20/25 17:59 Non-Formulary Medication (Sodium Phosphates [Fleet Enema]) 133 ml NJ PRN PRN PRN Reason: No BM Per Bowel Management Protocol Pharmacy Consult (Vancomycin Pharmacy To Dose 1 Each Each) 1 each IV QDAY PRN PRN Reason: PER PROTOCOL Stop: 02/17/25 18:31 Pharmacy Consult (Vancomycin Pharmacy To Dose 1 Each Each) 1 each IV QDAY PRN PRN Reason: SEPSIS PROTOCOL Stop: 03/20/25 08:59 Pharmacy Consult (Pharmacy Renal Dose Adjustment 1 Ea) 1 each XX PRN PRN PRN Reason: CONSULT Stop: 03/26/25 08:42 Polyethylene Glycol (Polyethylene Glycol 17 Gm Packet) 17 gm GT PRN PRN PRN Reason: No BM Per Bowel Management Protocol Stop: 03/19/25 20:46 Potassium Chloride (Potassium Chloride 10% 20 Meq/15 Ml Udc) 40 meq GT X1 ONE Stop: 02/21/25 07:48 Last Admin: 02/21/25 08:28 Dose: 40 meq Sodium Chloride (Sodium Chloride Rt 10% 15 Ml Nebu) 5 ml INH X1 ONE Stop: 02/17/25 20:45 Last Admin: 02/18/25 09:38 Dose: Not Given Vancomycin HCl (Vancomycin 125 Mg Capsule) 125 mg PO QID JAYMIE Stop: 02/25/25 07:44 Last Admin: 02/18/25 08:00 Dose: Not Given Vancomycin HCl (Vancomycin 125 Mg Capsule) 125 mg GT QID JAYMIE Stop: 02/25/25 07:59 Last Admin: 02/18/25 09:39 Dose: Not Given Vancomycin HCl (Vancomycin Oral Solution 25 Mg/Ml) 125 mg GT QID JAYMIE; Protocol Stop: 02/25/25 09:14 Last Admin: 02/19/25 12:29 Dose: 125 mg Vancomycin HCl (Vancomycin Oral Solution 25 Mg/Ml) 125 mg GT ACHS [facility]; Protocol Stop: 02/25/25 09:14 Last Admin: 02/24/25 08:16 Dose: 125 mg Assessment & Plan Plan Patient is 69 yr female with PMH of HTN, HLD, type 2 diabetes, epilepsy s/p trach and PEG tube was brought in from [facility] on 02/17 after noted to have a fever with leukocytosis 31, elevated LA 4.6, Hgb 9.0, Procal 1.12. UA unremarkable and CXR showed bilateral pneumonia Pt is admitted for treatment of Pneumonia. #Ventilator associated Pneumonia, left base pneumonia #Lactic acidosis- resolved #Leukocytosis- improved -At the subacute pt is reported to have fever. -On admission labs are significant for leukocytosis 31, elevated LA 4.6, Procal 1.12. -CXR showed bilateral pneumonia and was started on cefepime and vancomycin empirically for HAP. -Sputum culture positive for Serratia and Pseudomonas and blood cultures are negative. Plan: - Pt received Cefepime on 02/17 -Pt received Zosyn 02/18 - 02/24 -Completed 7 days of IV abx for pmeuonia #Recurrent C. difficile abdominal infection #hx of C Difficile diarrhea Patient was diagnosed with Clostridium difficle diarrhea according to records from 4 days ago. 02/19: Positive C. difficile stool antigen testing Plan: -Pt received Vancomycin liquid through PEG (02/17 -02/24) -Continue fidaxomicin p.o. 200mg bid for 10 days (02/24 - 03/05) - Pt has received treatment for C. diff multiple times and repeat PCR is sensitive. Therefore, no need to repeatedly test for C. Diff as pt maybe colonized. Pt's loose stool is liekly from tube feeds. -Pt would also benefit from Kifir yogurt supplementation however, it is not available at the subacute which is pt's permanent resident. #Insulin-dependent type 2 diabetes mellitus # Seizure disorder #Primary HTN #HLD #Chronic normocytic anemia #Status post PEG tube -management as per hospitalist time Assessment and plan discussed with my attending physician Dr. Yajaira Montalvo (PGY-2)- Internal medicine resident
--- NOTE | 2025-02-24 10:31 | PD.IDPROG ---
Subjective Subjective Interval history: on vent. no complaints noted. staff apparently c/o diarrhea but that can be hard to verify Exam Vital Signs Temp Pulse Resp BP Pulse Ox O2 Del Method FiO2 97 F 90 25 H 102/58 L 95 Mechanical Ventilation 30 02/24/25 08:00 02/24/25 08:13 02/24/25 08:13 02/24/25 08:00 02/24/25 08:13 02/24/25 08:00 02/24/25 08:13 Narrative Exam pt not interactive and is a dnr. abd is benign Objective - Internal Medicine Labs 02/23/25 09:48 02/23/25 09:48 Labs: Laboratory Results - last 24 hr 02/23/25 09:48 Sodium 140 Potassium 3.8 Chloride 97 L Carbon Dioxide 34.2 H Anion Gap 9 BUN 14 Creatinine 0.8 Estim Creat Clear Calc 66.6 eGFR > 60 BUN/Creatinine Ratio 18 Glucose 127 H Calculated Osmolality 281 Calcium 8.6 ABG Interpretation ABG results: 02/17/25 20:07 ABG pH 7.38 ABG pCO2 51 H ABG pO2 90 ABG HCO3 30 H ABG O2 Saturation 99 H ABG Base Excess 4 H Assessment & Plan A&P Narrative pneumonia by imaging and sputum cx persistent diarrhea. cdiff pos dm II, a1c <5.7 noted ok to add dificid to regimen 200 bid for 10d. no approved taper. please do not recheck cdiff test as it may be overly s on tf so loose stools can be from the tf too. Time Spent With Patient Time: Total time spent is greater than 50% in coordination of care (as documented) at patient's floor/unit and/or counseling patient:
--- NOTE | 2025-02-24 10:59 | ESCONSULT_ITS ---
RE: YOANDY SANDOVAL : 1955 DATE OF CONSULTATION: 02/24/2025 REFERRING PHYSICIAN: Dr. Sam, hospitalist. REASON FOR CONSULTATION: Refractory C diff and pneumonia in a DNR 69-year-old chronically ventilated patient from [facility]. HISTORY OF PRESENT ILLNESS: Patient has a positive C diff test. She is best I can tell she did not receive the kefir which was recommended previously but it may be hard to get at the facility. That is okay. As such, so we will put her on Dificid 200 mg b.i.d. for 10 days. There is no taper studied for Dificid. Her exam is benign. She cannot offer any meaningful history and so history is obtained entirely from the record which is limited. She may have pneumonia, it is hard to say. She is on antibiotics for that possibility as well. Some extend the Dificid beyond the treatment for pneumonia. Pneumonia treatment is usually 7 days. So the patient who was admitted on the so she should finish treatment in the near future. I will check on her superficially on Monday. DT: 10:34:52 TT: 10:58:00 Ref: [id number] - TID: [id number] MTDD
--- NOTE | 2025-02-24 11:11 | PC.SS ---
SS has faxed updated inquiry to [facility] and sent using [employer].
--- NOTE | 2025-02-24 12:25 | PC.CC ---
PASRR Level 1 complete and downloaded. Meets criteria for categorical review, pending closure.
--- NOTE | 2025-02-24 15:15 | ESPR_ITS ---
Documentation for date of: 02/24/25 Subjective Subjective Interval history: Patient was seen and examined at bedside. No acute events took place overnight. Patient has had 4 loose/watery BM during the past 24 hours, while she has stayed afebrile. Patient continues to have elevated white count 14.2, but trended down from yesterday. ID consulted, Started on 10-day course of fidaxomicin p.o. 200 mg twice daily as patient has had lack of treatment success with vancomycin with recurrent C diff infection twice before. Discontinued oral vancomycin. Patient is on continuous feeding with 50 mL/h, and 30 mL liter water flushes every 1/2 hour. Will be discharged to subacute. Exam Vital Signs Temp Pulse Resp BP Pulse Ox O2 Del Method FiO2 96.6 F L 77 24 H 129/55 L 96 Room Air 30 02/24/25 12:00 02/24/25 12:00 02/24/25 12:00 02/24/25 12:00 02/24/25 12:00 02/24/25 12:00 02/24/25 13:58 Narrative Exam GENERAL APPEARANCE: AOx0. NAD, on ventilator. Pt is able to track with eyes and nod yes to questions. Trach'd and PEG'd HEENT: Normocephalic atraumatic, no facial trauma, neck is supple. Lids/conjunctiva normal. Mucous membranes moist, nares normal, lips/teeth normal uvula midline without oral pharyngeal erythema, exudate or swelling TMs normal bilaterally. No lymphangitis/lymphedema. CARDIAC: Regular rate and rhythm, S1+S2 heard. No murmurs, rubs, or gallops noted RESPIRATORY: mechanical ventilation, tracheostomy site clean, no accessory muscle use. Coarse breath sounds present in bilateral lower lobes. ABDOMINAL: NBS. Soft, ND/NT. No evidence of fluid wave. No pulsatile masses on exam, rebound tenderness. Patient grimaces with palpation of the abdomen that is soft, but tender. +PEG tube MUSCLES/EXTREMITIES: No abnormal range of motion. +2 pedal edema DERM: Warm, pink and dry. No rashes, dermatoses, petechiae or lesions. NEUROLOGICAL: Speech is clear and appropriate. Normal level of consciousness. Gait and coordination are normal. 5/5 strength in all extremities. PSYCH: Normal mood and affect. Judgement/competence is appropriate Objective Labs 02/23/25 09:48 11/30/25 09:48 Labs: Laboratory Results - last 24 hr 02/23/25 02/23/25 04:38 09:48 WBC 15.2 H RBC 2.50 L Hgb 7.6 L Hct 24.4 L MCV 98 MCH 30.4 MCHC 31.1 RDW Std Deviation 61.4 H Plt Count 445 H D Neut % (Auto) 58 Lymph % (Auto) 20 Norton % (Auto) 11 Eos % (Auto) 4 Baso % (Auto) 1 Neut # (Auto) 8.8 H Lymph # (Auto) 3.1 Norton # (Auto) 1.6 H Eos # (Auto) 0.6 H Baso # (Auto) 0.1 Immature Gran # (Auto) 0.98 H Absolute Nucleated RBC 0.00 Immature Gran % 7 H Nucleated RBC % 0 Sodium 140 Potassium 3.8 Chloride 97 L Carbon Dioxide 34.2 H Anion Gap 9 BUN 14 Creatinine 0.8 Estim Creat Clear Calc 66.6 eGFR > 60 BUN/Creatinine Ratio 18 Glucose 127 H Calculated Osmolality 281 Calcium 8.6 Phosphorus 3.8 Magnesium 2.2 ABG Interpretation ABG results: 02/17/25 20:07 ABG pH 7.38 ABG pCO2 51 H ABG pO2 90 ABG HCO3 30 H ABG O2 Saturation 99 H ABG Base Excess 4 H Quality Measures Quality Measures VTE prophylaxis and sepsis Current suspected stage: ruled out Possible source: pulmonary Blood cultures ordered: yes Antibiotic ordered: Yes Advance care planning discussed with:: patient Assessment & Plan Assessment Current Active Medications: Generic Name Dose Route Start Last Admin Trade Name Freq PRN Reason Stop Dose Admin Acetaminophen 650 mg 02/17/25 20:47 Acetaminophen 325 Mg Tablet NG 03/19/25 20:46 Q4HR PRN Fever > 100.4 Acetaminophen 650 mg 02/17/25 20:47 Acetaminophen 325 Mg Tablet NG 03/19/25 20:46 Q6HR PRN PAIN 1-3 Albuterol/Ipratropium 3 ml 02/17/25 20:47 Albuterol/Ipratropium (Duoneb) Rt Ericka 3 Ml Nebu INH 03/19/25 20:46 Q2HR PRN WHEEZING Artificial Tears 2 drop 02/17/25 21:00 02/24/25 08:15 Artificial Tears 225 Drop/15 Ml Btl BOTH EYES 03/19/25 20:59 2 drops BID JAYMIE Administration Ascorbic Acid 500 mg 02/17/25 21:00 02/24/25 08:19 Ascorbic Acid 250 Mg Tablet GT 03/19/25 20:59 500 mg BID JAYMIE Administration Aspirin 81 mg 02/18/25 09:00 02/24/25 08:15 Aspirin 81 Mg Chew GT 03/20/25 08:59 81 mg QDAY JAYMIE Administration Atorvastatin Calcium 40 mg 02/17/25 21:00 02/23/25 21:30 Atorvastatin Calcium 20 Mg Tablet GT 03/19/25 20:59 40 mg HS JAYMIE Administration Buspirone HCl 10 mg 02/17/25 21:00 02/24/25 08:15 Buspirone Hcl 5 Mg Tablet GT 03/19/25 20:59 10 mg BID JAYMIE Administration Carbamide Peroxide 5 drop 02/17/25 21:00 02/17/25 22:30 Carbamide Peroxide Otic Ericka 15 Ml Btl BOTH EARS 03/19/25 20:59 Not Given Q61D JAYMIE Diazepam 5 mg 02/17/25 20:47 Diazepam Inj 5 Mg/Ml Vial 2 Ml IM [id number] PRN Seizures Famotidine 20 mg 02/17/25 21:00 02/24/25 08:15 Famotidine Inj 10 Mg/Ml Vial 2 Ml IVP 03/19/25 20:59 20 mg Q12HR JAYMIE Administration Fidaxomicin 200 mg 02/24/25 21:00 Fidaxomicin 200 Mg Tablet (Non-Formulary) PO 03/06/25 20:59 BID JAYMIE Glucagon 1 mg 02/17/25 20:47 Glucagon Inj 1 Mg Vial SC Q15MIN PRN Hypoglycemia Guaifenesin 300 mg 02/17/25 20:47 Guaifenesin Syrup 200 Mg/10 Ml Udc GT 03/19/25 20:46 Q6HR PRN COUGH Protocol Insulin Degludec 8 unit 02/18/25 18:00 02/23/25 17:04 Insulin Degludec 5 Unit/0.05 Ml (Per 5 Units) SC 03/20/25 17:59 8 unit DAILY@1800 JAYMIE Administration Insulin Human Lispro 0 unit 02/18/25 06:00 02/24/25 05:21 Insulin Lispro (Admelog) 1 Unit/0.01 Ml Unit SC 03/20/25 05:59 Not Given 06,18 JAYMIE Levetiracetam 1,000 mg 02/17/25 21:00 02/24/25 08:14 Levetiracetam Liqd 500 Mg/5 Ml Udc GT 03/19/25 20:59 1,000 mg BID JAYMIE Administration Ondansetron HCl 4 mg 02/17/25 20:40 Ondansetron Inj 2 Mg/Ml Inj 2 Ml IVP 03/19/25 20:39 Q6H PRN NAUSEA OR VOMITING Protocol Sodium Chloride 1 gm 02/18/25 09:00 02/24/25 08:16 Sodium Chloride 1 Gm Tablet GT 03/20/25 08:59 1 gm QDAY JAYMIE Administration Sodium Phosphate 133 ml 02/18/25 15:14 Sodium Phos,Norton-Dibasic 133 Ml (Fleet) Enema Btl RC PRN PRN No BM Per Bowel Management Protocol Valproic Acid 500 mg 02/17/25 22:00 02/24/25 13:23 Valproic Acid Syrup 250 Mg/5 Ml Udc GT 03/19/25 21:59 500 mg TID JAYMIE Administration Vitamin D 1,000 iu 02/17/25 21:00 02/24/25 08:15 Cholecalciferol (Vitamin D3) 1,000 Iu Tablet GT 03/19/25 20:59 1,000 iu BID JAYMIE Administration Plan 69yo female with a history of epilepsy, HTN, HLD, DM, anoxic brain injury s/p trach and PEG tube brought in from subacute presents to the ED for complaints of shortness of breath and fever x today. Admitted for sepsis 2/2 pneumonia. #Recurrent C. difficile abdominal infection #hx of C Difficile diarrhea Patient was diagnosed with Clostridium difficle diarrhea according to records from 4 days ago. KUB showed nonobstructive bowel gas pattern, with moderate stool throughout the colon. Discontinued vancomycin capsule as patient does not eat orally, and ordered the same antibiotic in liquid form to be given through the PEG tube. + CTAP showed acute diverticulitis at the junction of the distal descending colon and sigmoid colon, no peridiverticular abscess 02/19: Positive C. difficile stool antigen testing + Patient has had lack of success with previous treatments of C. difficile with vancomycin, ID was consulted. An alternative choice at discharge is fidaxomicin. + Vancomycin liquid through PEG (02/17 -02/24) Plan: - ID, Dr Gates, consulted, appreciate recs. - fidaxomicin p.o. 200mg bid for 10 days (02/24 - 03/05) - Placed patient on contact precautions. - Continue to monitor elevated leukocyte on morning labs #Acute diverticulitis #Ventilator associated Pneumonia, left base pneumonia #Acute hypercapnic respiratory failure #Chronic respiratory failure status post tracheostomy on mechanical ventilation #Lactic acidosis #Leukocytosis Patient came in and found to have 2 or more SIRS criteria and was evaluated for sepsis. However, based upon further work-up, sepsis was ruled out. HR 104 RR 24 T 102.6F with IV fluids and antibiotics resolved to HR 89 RR 34 T 97.3F. Brought in from subacute floor for SOB and fever. Physical exam revealed left lung lobe rhonchi. Procal 1.12. Lactic acid 4.6 --> 4.0 with IV fluids. CXR fairly diffuse bilateral pneumonia. Respiratory therapist has been suctioning the patient multiple times. Reeived 2.4 L bolus in ED on maintenance fluids currently. WBC improved to 23.7 (02/19). ? Gram stain of sputum culture revealed GNR, pending final speciation ? Patient was treated with cefepime 1g IV Q8HR (02/17 - 02/18) ? Blood culture negative in 2 out of 2 bottles after 24h ? MRSA screen negative, discontinued IV vancomycin ? Sputum culture positive for Serratia and Pseudomonas, patient likely colonized ? Zosyn 3.375 g IV Q8h (02/18 - 02/24) Plan: - completed 7d course of ABx treatment on 02/24 with Zosyn -Duoneb 3ml INH Q2HR PRN #PEG Tube Feeding Patient is on continuous feeding with 50 mL/h, and 30 mL liter water flushes every 1/2 hour. #Insulin-dependent type 2 diabetes mellitus Plan: -Glargine 8 unit SC QD -ISS # Seizure disorder Plan: -Keppra 1g BID -Valproic acid 500mg TID -Buspar 10mg BID (anxiety) -Diazepam 5 mg IM #HTN Not hypertensive on admission or exam. No treatment indicated from subacute floor. Plan: -Consider PRNs if patient becomes hypertensive #HLD Plan: -Atorvastatin 40mg HS #Chronic normocytic anemia #GI bleed? hemoglobin dropped from 9.0 at presentation to 7.8. Nurse noted previous report of dark pasty stool. FOBT positive Patient will need colonoscopy at a later point #Status post PEG tube Tube feeds started, dietitian consulted. Patient is on continuous feeding with 50 mL/h, and 30 mL water flushes every 1/2 hour. Health Maintenance: Code status: DNR/DNI DVT prophylaxis: Lovenox 40mg GI prophylaxis: Famotidine Diet: Tube feeding Hobson: Yes Lines: PIV Supplemental O2: Ventilator [facility]: [facility]o and pneumonia This case was discussed with my attending physician, Dr. Hernandez, and senior resident, Dr Napier. Even though this this note was carefully revised, there may still be minor errors in watch and clock repair clerk due to voice recognition software. Etta Manley, PGY I Senior Resident Attestation: ID Dr Gates recommended fidaxomicin for 10 days orally for recurrent C. difficile that was refractory to oral vancomycin previously. The patient will be discharged to LTAC tomorrow morning. I discussed with and supervised the internal revenue service agent physician involved in the care of this patient. I personally saw and examined the patient and discussed the assessment and plan with the entire medicine team, including my attending. I agree with the assessment and plan as documented above. Remington Napier MD PGY3 Internal Medicine Attending Provider Attestation/Addendum 69-year-old female with recurrent C. difficile infection. The patient was seen by ID. Patient will continue on oral fidaxomicin at subacute was approved per manager social responsibility. She is underwent. 30% FiO2. Subacute will take her tomorrow Monday. I discussed with and supervised the resident physician who took care of this patient. I agree with the assessment and plan as above.
[2025-02-24] MEDS: INSULIN DEGLUDEC 5 UNIT/0.05 ML (PER 5 UNITS) 8 UNIT SC (17:05)
[2025-02-24] MEDS: FIDAXOMICIN 200 MG TABLET (NON-FORMULARY) PO (23:05)
[2025-02-24] MEDS: ATORVASTATIN CALCIUM 20 MG TABLET 40 MG GT (23:08)
[2025-02-25] VITALS (12 sets, daily range): BP systolic 125–155; BP diastolic 50–76; PULSE 64–78; RESP 17–31; TEMP 36.3–36.4; O2SAT 95–97
[2025-02-25 06:26] LABS: Basophils # (Auto) 0.1 Thou/mm3 (0.0-0.2); Basophils % (Auto) 1 % (0-2.5); Eosinophils # (Auto) 0.5 Thou/mm3 (0.0-0.5); Eosinophils % (Auto) 4 % (0-10); Hematocrit 26.4 % (36.0-46.0); Immature Granulocytes Auto 0.59 Thou/mm3 (0.00-0.00); Lymphocytes # (Auto) 3.1 Thou/mm3 (1.0-4.8); Lymphocytes % (Auto) 24 % (10-50); Mean Corpuscular HGB Conc 31.8 g/dl (31.0-37.0); Mean Corpuscular Hemoglobin 30.7 pg (25.0-35.0); Mean Corpuscular Volume 96 fL (80-100); Monocytes # (Auto) 1.5 Thou/mm3 (0.0-0.8); Monocytes % (Auto) 12 % (0-12); Neutrophils # (Auto) 7.1 Thou/mm3 (1.8-7.7); Neutrophils % (Auto) 55 % (37-80); Nucleated Red Blood Cell # 0.02 Thou/mm3 (0.00-0.00); Nucleated Red Blood Cell % 0 /100 WBC (0); Platelet Count 475 Thou/mm3 (140-440); RDW Standard Deviation 60.7 fL (36.4-46.3); Red Blood Count 2.74 Miln/mm3 (4.00-5.20); White Blood Count 12.8 Thou/mm3 (3.6-11.0)
[2025-02-25] MEDS: VALPROIC ACID SYRUP 250 MG/5 ML UDC 500 MG GT (06:54)
[2025-02-25 07:59] LABS: Hemoglobin 8.4 g/dL (12.0-16.0)
[2025-02-25 08:09] LABS: Alanine Aminotransferase 9 U/L (10-49); Albumin, Serum 3.8 gm/dL (3.4-4.8); Alkaline Phosphatase 60 U/L (46-116); Anion Gap 9 (7-16); Aspartate Amino Transferase 31 U/L (0-34); BUN/Creatinine Ratio 23 Ratio (12-20); Bilirubin,Total 0.2 mg/dL (0.3-1.2); Blood Urea Nitrogen 16 mg/dL (9-23); Calcium 9.3 mg/dL (8.3-10.6); Calcium (Corrected) 9.5 mg/dL (8.5-10.1); Carbon Dioxide 31.7 mMol/L (20.0-31.0); Chloride 97 mMol/L (98-107); Creatinine (Component) 0.7 mg/dL (0.6-1.3); Estimated Creatinine Clearance 76.1 mL/min (>60); Glucose 113 mg/dL (74-106); Magnesium 2.2 mg/dL (1.6-2.6); Osmolality,Calculated 277 (275-295); Phosphorous 3.9 mg/dL (2.4-5.1); Potassium 4.2 mMol/L (3.4-5.1); Sodium 138 mMol/L (136-145); eGFR > 60 See Note
[2025-02-25] MEDS: FAMOTIDINE INJ 10 MG/ML VIAL 2 ML 20 MG IVP (08:55)
[2025-02-25] MEDS: SODIUM CHLORIDE 1 GM TABLET GT (08:55)
[2025-02-25] MEDS: FIDAXOMICIN 200 MG TABLET (NON-FORMULARY) PO (08:55)
[2025-02-25] MEDS: ASPIRIN 81 MG CHEW GT (08:55)
[2025-02-25] MEDS: Artificial Tears 225 DROP/15 ML BTL BOTH EYES (08:55)
[2025-02-25] MEDS: CHOLECALCIFEROL (Vitamin D3) 1,000 IU TABLET 1000 IU GT (08:55)
[2025-02-25] MEDS: ASCORBIC ACID 250 MG TABLET 500 MG GT (08:56)
[2025-02-25] MEDS: levETIRAcetam LIQD 500 MG/5 ML UDC 1000 MG GT (08:56)
--- NOTE | 2025-02-25 10:57 | PC.SS ---
Addendum entered by Millie Gonzales 02/25/25 16:02: SS has sent PASRR through file exchange. SS attempted to contact [facility] but they did not answer. SS has emailed Trinity from [facility] to inform her. Original Note: SS spoke to [facility] and informed them pt will be returning today. SNF packet has been placed on patient's chart. Number for report is ext [phone] and has been provided to bedside nurse. SS has spoken to Frederick from [facility] and he will close case today. SS has informed Trinity from [facility] who is requesting PASRR through file exchange.
--- NOTE | 2025-02-25 13:04 | PC.NURSE ---
Patient transferred to subacute. Report given to RN.
[2025-02-25 13:18] LABS: Albumin/Globulin Ratio 1.1 (1.2-2.2); Globulin 3.5 gm/dL (2.3-3.5); Total Protein 7.3 gm/dL (5.7-8.2)
--- NOTE | 2025-02-25 13:38 | ESDS_ITS ---
Planned Discharge Date 02/25/25 DS: Providers Provider Date of admission: 02/17/25 20:35 Primary care physician: Physician No Primary/Family Admitting Provider: Andrew Nolen MD Attending Provider on Admission: John Canales DO Consults: 02/18/25 06:19 Referral Wound Care Routine Comment: wound to sacrum 02/18/25 06:55 Referral Registered Dietitian Urgent Comment: new admit from subacute 02/22/25 10:23 Consult to Infectious Diseases Urgent Comment: C diff Consulting Provider: Pilo Calvo Attending Provider on DC: John Canales DO Discharging Provider: Etta Manley DO DS: Diagnosis Problem List Completed Was Problem List Reviewed/Reconciled?: Yes Hospital Course Hospital Course Hospital course: 69yo female with a history of epilepsy, HTN, HLD, DM, anoxic brain injury s/p trach and PEG tube brought in from [facility] presented on 02/17/2025 to the ED for complaints of shortness of breath, and fever x today. Admitted for sepsis 2/2 pneumonia. At presentation, BP 114/67 HR 104 RR 24 T 100.4 O2 97% Mechanical vent FiO2 30. Labs: WBC 31.3 Hgb 9.0, lactic acid 4.6 Procal 1.12. EKG sinus tachy HR 102 QTc 421. CXR fairly diffuse bilateral pneumonia. Patient had history of Pseudomonas pneumonia resistant to multiple agents. Started on cefepime for HAP. In the setting of significantly elevated WBC count, and history of C. difficile, bowel regiment held, and patient was started on vancomycin. Stool antigen testing was positive for C. difficile indeed, patient resumed on vancomycin, and placed on contact precautions. On physical exam, patient demonstrated BLE pitting edema, further assessment with CT chest necessary to rule out pulmonary congestion. CT chest 3 demonstrated pneumonia left base, but also acute diverticulitis at the junction of distal descending colon and sigmoid colon, without peridiverticular abscess. Blood cultures negative after 48 hours. Cefepime switched over to Zosyn for the treatment of pneumonia after 2 days of treatment with cefepime. Patient had been noted to have loose/watery bowel movements, and given lack of success with previous episodes of C. difficile infection, ID consult was warranted. Sputum cultures came back positive for Serratia and Pseudomonas, patient likely a colonizer in the context of previous history of similar infection. Patient continued antibiotics treatment with Zosyn 3.375 g Q8h 02/18 - 02/24. After ID consultation, antibiotics choice for C. difficile changed to fidaxomicin 200 mg bid for 10 days. Patient stayed afebrile, WBC improved to 11.6. During her stay, patient's home medication for her chronic conditions were resumed including her antiseizure, HLD, and insulin-dependent T2DM. At the time of discharge, patient is medically stable and deemed safe to return to his/her previous state of living. Admission diagnosis: #Recurrent C. difficile abdominal infection #History of C. difficile diarrhea #Acute diverticulitis #Ventilator associated pneumonia, left base pneumonia #Acute hypercapnic respiratory failure #Chronic respiratory failure status post tracheostomy on mechanical ventilation #Lactic acidosis #Leukocytosis #PEG tube feeding #Insulin-dependent type 2 diabetes mellitus #Seizure disorder #Hypertension #Hyperlipidemia #Chronic normocytic anemia Discharge instructions: - Continue Fidaxomicin 200mg GT bid to complete a total of 10 days on 03/06 - We recommend GI bleed workup outpatient once C. difficile taper is completed - We recommend trial of blow-by outpatient and wean off of vent as tolerated, follow-up with pulmonology - All other medications as below - Stop Fleet enemas - Do not repeat C.Dif as per ID, Dr. CALVO - Follow up with your primary care physician within 1 week of discharge. If you do not have a primary care physician, please follow up with the [facility] Residents clinic ([phone]) ? If you experience any new, worsening or persistent symptoms either call your primary doctor, or dial 911 or present to the emergency department. This case was discussed with my attending physician, Dr. Canales, and senior resident, Dr Napier. Even though this this note was carefully revised there may still be minor errors in test engineering intern due to voice recognition software. Etta Manley, DO PGY I Senior Resident Attestation: I discussed with and supervised the human resources intern physician involved in the care of this patient. I personally saw and examined the patient and discussed the assessment and plan with the entire medicine team, including my attending. I agree with the discharge plan as documented above. Remington Napier MD PGY3 Internal Medicine Status at Discharge Overall status at discharge: patient is back to baseline Time Spent with Patient Time attestation: Total time spent providing and/or coordinating discharge services: More than 50% of the patient's total hospital stay Time spent: Greater than 30 minutes Exam Vital Signs Temp Pulse Resp BP Pulse Ox O2 Del Method FiO2 97.4 F 75 20 155/76 H 96 Mechanical Ventilation 30 02/25/25 12:00 02/25/25 12:02/25/25 12:02/25/25 12:00 02/25/25 12:00 02/25/25 12:00 02/25/25 12:00 Narrative Exam GENERAL APPEARANCE: AOx0. NAD, on ventilator. Pt is able to track with eyes and nod yes to questions. Trach'd and PEG'd HEENT: Normocephalic atraumatic, no facial trauma, neck is supple. Lids/conjunctiva normal. Mucous membranes moist, nares normal, lips/teeth normal uvula midline without oral pharyngeal erythema, exudate or swelling TMs normal bilaterally. No lymphangitis/lymphedema. CARDIAC: Regular rate and rhythm, S1+S2 heard. No murmurs, rubs, or gallops noted RESPIRATORY: mechanical ventilation, tracheostomy site clean, no accessory muscle use. Coarse breath sounds present in bilateral lower lobes. ABDOMINAL: NBS. Soft, ND/NT. No evidence of fluid wave. No pulsatile masses on exam, rebound tenderness. Patient grimaces with palpation of the abdomen that is soft, but tender. +PEG tube MUSCLES/EXTREMITIES: +2 pedal edema DERM: Warm, pink and dry. No rashes, dermatoses, petechiae or lesions. NEUROLOGICAL: Patient is mute, but is able to track with eyes and nod yes to question. PSYCH: Normal mood and affect. Judgement/competence is appropriate Discharge Plan Plan Patient Disposition: Xfer Skilled Nsg Fac (SNF) Patient condition on transfer: Stable Care Plan Goals: - Continue Fidaxomicin 200mg GT bid to complete a total of 10 days on 03/06 - We recommend GI bleed workup outpatient once C. difficile taper is completed - We recommend trial of blow-by outpatient and wean off of vent as tolerated, follow-up with pulmonology - All other medications as below - Stop Fleet enemas - Do not repeat C.Dif as per ID, Dr. CALVO - Follow up with your primary care physician within 1 week of discharge. If you do not have a primary care physician, please follow up with the [facility] Residents clinic ([phone]) ? If you experience any new, worsening or persistent symptoms either call your primary doctor, or dial 911 or present to the emergency department. Prescriptions/Referrals Prescriptions/Med Rec: New fidaxomicin [Dificid] 200 mg Tablet 200 mg PO BID Qty: 17 0RF Continued aspirin 81 mg Tablet,Chewable 81 mg G-tube QDAY Rx Instructions: Give one tab daily PGT for DVT prevention atorvastatin 20 mg Tablet 40 mg G-tube HS cholecalciferol (vitamin D3) 25 mcg (1,000 unit) Tablet 25 mcg G-tube BID artificial tear([id number]) [GenTeal Tears Moderate] 0.1-0.3-0.2 % Drops 2 drp Both eyes BID Rx Instructions: FOR DRYNESS sodium chloride 1,000 mg Tablet,Soluble 1,000 mg G-tube QDAY Rx Instructions: For Hyponatremia buspirone 10 mg Tablet 10 mg G-tube BID Patient Comments: AMB refusing care Rx Instructions: Continue Buspirone 10mg BID x30 days then re-evaluate with MD. insulin glargine-yfgn 100 unit/mL (3 mL) Insulin Pen 8 unit SCi DAILY@1800 Patient Comments: Hold if blood sugar is <80 bisacodyl [Dulcolax (bisacodyl)] 10 mg Suppository 10 mg AZ PRN PRN (Reason: No BM Per Bowel Management Protocol) Rx Instructions: Administer as needed on 6th shift, if MOM ineffective. levetiracetam 100 mg/mL Solution 1,000 mg G-tube BID Rx Instructions: give 45sA=1710ez for seizures valproic acid (as sodium salt) 250 mg/5 mL Solution 500 mg G-tube TID Rx Instructions: Valproic acid 250/5ml chelsey. Give 500mg (10ml) PGT for seizures Gvoke 1 mg/0.2 mL Solution 1 mg IM Q15MIN PRN (Reason: Hypoglycemia) magnesium hydroxide [Milk of Magnesia] 400 mg/5 mL Suspension 30 ml G-tube PRN PRN (Reason: Constipation) Rx Instructions: CONC: 400MG/5ML polyethylene glycol 3350 17 gram Powder In Packet 17 g G-tube PRN PRN (Reason: No BM Per Bowel Management Protocol) Rx Instructions: Mix with 4oz of water before giving. Hold tube feeding for 30 minutes after administration. Notify provider if no results from Miralax. enoxaparin 40 mg/0.4 mL Syringe 40 mg SCi QDAY ascorbic acid (vitamin C) 500 mg Tablet 500 mg G-tube BID acetaminophen 325 mg Tablet 650 mg G-tube Q4HR PRN (Reason: Fever > 100.4) Patient Comments: Not to exceed 3gm of Tylenol from all sources. Rx Instructions: fever protocol Discontinued Ear Wax Removal Drops 6.5 % drops 5 drp otic (ear) Q61D 284 Days Qty: 15 11RF Ear Wax Removal Drops 6.5 % drops 5 drp otic (ear) Q61D 283 Days Qty: 15 11RF Ear Wax Removal Drops 6.5 % drops 5 drp otic (ear) Q61D 283 Days Qty: 15 11RF Ear Wax Removal Drops 6.5 % drops 5 drp otic (ear) Q61D 282 Days Qty: 15 0RF Ear Wax Removal Drops 6.5 % drops 5 drp otic (ear) Q61D 282 Days Qty: 15 0RF Rx Instructions: 5 drops per ear at first med pass of shift. Then irrigate ears with NS at next med pass of each shift x 4 days for wax build up. *Start on the of the month, every two months. Ear Wax Removal Drops 6.5 % drops 5 drp otic (ear) Q61D 281 Days Qty: 15 0RF Ear Wax Removal Drops 6.5 % drops 5 drp otic (ear) Q61D 281 Days Qty: 15 0RF Rx Instructions: 5 drops per ear at first med pass of shift. Then irrigate ears with NS at next med pass of each shift x 4 days for wax build up. *Start on the of the month, every two months. Fleet Enema 19-7 gram/118 mL enema 133 ml AZ PRN PRN (Reason: No BM Per Bowel Management Protocol) 337 Days Qty: 266 1RF No Action aspirin 81 mg tablet,chewable 81 mg G-tube QDAY 30 Days Qty: 30 0RF atorvastatin 40 mg tablet 40 mg G-tube HS 30 Days Qty: 30 0RF acetaminophen 325 mg tablet 650 mg G-tube Q6HR PRN (Reason: Pain) 30 Days Qty: 30 0RF Rx Instructions: Do not exceed more than 3gm of acetaminophen per day from all sources ipratropium-albuterol 0.5 mg-3 mg(2.5 mg base)/3 mL solution for nebulization 3 ml INH Q2HR PRN (Reason: Wheezing) 30 Days Qty: 90 0RF guaifenesin [Taylor-Tussin] 100 mg/5 mL liquid 300 mg G-tube Q6HR PRN (Reason: Cough) 30 Days Qty: 500 0RF Rx Instructions: Conc: 100MG/5ML- give 300mg/15ml ascorbic acid (vitamin C) 500 mg tablet 500 mg G-tube BID Qty: 60 11RF valproic acid (as sodium salt) 250 mg/5 mL solution 500 mg G-tube TID Qty: 900 11RF buspirone 10 mg tablet 10 mg G-tube BID Qty: 60 11RF Ear Wax Removal Drops 6.5 % drops 5 drp otic (ear) Q61D 30 Days Qty: 15 0RF Rx Instructions: 5 drops per ear at first med pass of shift. Then irrigate ears with NS at next med pass of each shift x 4 days for wax build up. *Start on the of the month, every two months. enoxaparin 40 mg/0.4 mL syringe 40 mg SCi QDAY Qty: 12 11RF insulin lispro 100 unit/mL insulin pen 100 unit SCi ,18 30 Days Qty: 60 0RF Rx Instructions: Per Sliding Scale as follows: 0-150= 0 units; 151-200= 2 units; 201-250= 4 units; 251-300= 6 units; 301-350= 8 units; 351-400= 10 units; >400= 12 units; and call levetiracetam 100 mg/mL solution 1,000 mg G-tube BID Qty: 600 11RF sodium chloride 1,000 mg tablet,soluble 1,000 mg G-tube QDAY Qty: 30 11RF Rx Instructions: For Hyponatremia cholecalciferol (vitamin D3) 25 mcg (1,000 unit) tablet 25 mcg G-tube BID Qty: 60 11RF insulin glargine [Lantus Solostar U-100 Insulin] 100 unit/mL (3 mL) insulin pen 8 unit SCi DAILY@1800 30 Days Qty: 15 0RF ferrous sulfate 220 mg (44 mg iron)/5 mL elixir 325 mg G-tube BID 30 Days Qty: 221.592 0RF Rx Instructions: CONC: 220mg/5ml Give: 325mg/7.5ml Diazepam 5 mg IM PRNMRX1 PRN (Reason: Seizures) Qty: 5 1RF Rx Instructions: Diazepam 5mg/mL injection, Inject 5mg/mL intramuscularly as needed for seizures. If seizure persist administer 2nd dose. If not effective send PT to ER for further eval. and notify MD. *Single dose vial ipratropium-albuterol 0.5 mg-3 mg(2.5 mg base)/3 mL solution for nebulization 3 ml INH Q2HR PRN (Reason: Wheezing) 30 Days Qty: 90 0RF polyethylene glycol 3350 17 gram powder in packet 17 g G-tube PRN PRN (Reason: No BM Per Bowel Management Protocol) 365 Days Qty: 14 0RF Label Comments: Administer as needed if 2nd round bowel protocol ineffective. Rx Instructions: Mix with 4oz of water before giving. Hold tube feeding for 30 minutes after administration. Notify provider if no results from Miralax. magnesium hydroxide [Milk of Magnesia] 400 mg/5 mL suspension 30 ml G-tube PRN PRN (Reason: Constipation) 365 Days Qty: 355 0RF Rx Instructions: CONC: 400MG/5ML bisacodyl [Dulcolax (bisacodyl)] 10 mg suppository 10 mg [place] PRN PRN (Reason: No BM Per Bowel Management Protocol) 365 Days Qty: 12 0RF Rx Instructions: Administer as needed on 6th shift, if MOM ineffective. Fidaxomicin (Dificid) 200 mg G-tube BID 10 Days 0RF Referrals: No Primary/Family,Physician [Primary Care Provider] Patient/Caregiver Discharge Instructions Education Materials: C diff Print Language: Ukrainian Stand Alone Forms: Johana Award Info., Patient Portal Info Letter Discharge Order Discharge Orders: Discharge (Routine); Ordered 02/25/25 Ordered By: Surinder Mcmanus Quality Discharge Quality Measures VTE prophylaxis Attestestation Attestation I have discussed and was present for the essential components of the discharge history, physical examination, diagnosis, and discharge treatment plan with the resident. I agree with the patient's discharge care as documented by the resident and amended herein by me. Mc Canales DO. Patient at baseline at time of discharge home. Patient did complete a course of antibiotics for diverticulitis. Per infectious disease recommendations will continue for Doxy mycin 200 mg via G-tube twice a day to complete a total 10-day course ending on 03/06. Patient will also need to follow-up with pulmonology. Patient should return to the emergency department if diarrhea remains persistent or uncontrolled. Although this document has been carefully reviewed, there may still be some phonetic and other typographical errors. These errors are purely grammatical due to imperfections in the software program and should not be construed in any way to compromise the substance of the patient's medical care during this visit.
[2025-02-25 14:51] LABS: Hepatitis C Antibody Non Reactive (Non React)
[2025-03-05 11:16] LABS: Levetiracetam (Keppra)* SEE SEP RPT
== END 2025-02-25 13:13 | disposition skilled nursing facility (03) | DRG 207 ==
LOC: SERX 19:53 → SERHOLD 21:18 → S2NX 21:52 → S3SX 02-22 00:21
PROVIDERS: Internal Medicine Infectious Disease; Specialist; Admitting Provider Student in an Organized Health Care Education/Training Program; Emergency Provider Emergency Medicine; Visit Provider Student in an Organized Health Care Education/Training Program
DX: J95.851 Ventilator associated pneumonia (principal); J96.22 Acute and chronic respiratory failure with hypercapnia; G93.1 Anoxic brain damage, not elsewhere classified; Z99.11 Dependence on respirator [ventilator] status; A04.71 Enterocolitis due to Clostridium difficile, recurrent; E87.20 Acidosis, unspecified; G40.909 Epilepsy, unspecified, not intractable, without status epilepticus; E78.5 Hyperlipidemia, unspecified; I10 Essential (primary) hypertension; E11.9 Type 2 diabetes mellitus without complications; Z93.1 Gastrostomy status; F41.9 Anxiety disorder, unspecified; Z93.0 Tracheostomy status; Z66 Do not resuscitate; Z79.4 Long term (current) use of insulin; Y84.8 Other medical procedures as the cause of abnormal reaction of the patient, or of later complication, without mention of misadventure at the time of the procedure; D64.9 Anemia, unspecified
CPT/HCPCS: 36415; 36600; 71250; 74018; 74176; 80048; 80053; 80177; 80202; 81001; 82270; 82803; 82947; 83036; 83605; 83735; 84100; 84145; 84484; 85025; 86803; 86850; 86900; 86901; 87040; 87077; 87081; 87186; 87205; 87493; 87502; 87811; 93005; 93225; 94003; 94664; 94667; 96374; 96375; 99284; J0692; J1650; J1815; J1938; J2270; J2543; J3373; J3490; J7050; J7120; J7999; A9270

== ENCOUNTER 2025-03-16 19:40 | Inpatient (IN) | payer MEDICARE, MEDICAID, SELFPAY ==
[2025-03-16 19:45] VITALS: BMI 22.7
[2025-03-16 19:52] VITALS: BP 164/99; PULSE 123; RESP 17; TEMP 39.6; O2SAT 97
--- NOTE | 2025-03-16 20:02 | EDNOTE_ITS ---
ED Fever RME/HPI General Chief Complaint: Fever Stated Complaint: FEVER Time Seen by Provider: 03/16/25 20:02 Arrival date/time: 03/16/25 19:40 RME / HPI RME / HPI Narrative: Dr. Sloan?s Main ED Evaluation: 69yo female with a history of epilepsy, HTN, HLD, DM, anoxic brain injury s/p trach and PEG tube brought in from subacute presents to the ED for a fever x today. Patient was given Tylenol at 1430 via G- tube and Ibuprofen at 1927 via G-tube, but patient's fever has persisted. Full ROS is unobtainable due to the patient's medical condition. Related Data Home Medications ?Medication ?Instructions ?Recorded ?Confirmed acetaminophen 325 mg tablet 650 mg G-tube Q4HR PRN Fev er > 02/24/25 02/18/25 100.4 artificial 2 drp Both eyes BID 02/24/25 02/18/25 tears(qyjvwdu-bvsknslu-ahfshky) 0.1 %-0.3 %-0.2 % eye drops (GenTeal Tears Moderate) ascorbic acid (vitamin C) 500 mg 500 mg G-tube BID sup plement 02/24/25 02/18/25 tablet aspirin 81 mg chewable tablet 81 mg G-tube QDAY 02/18/25 atorvastatin 20 mg tablet 40 mg G-tube HS hyperlipidem ia 02/24/25 02/18/25 bisacodyl 10 mg rectal suppository 10 mg AR PRN PRN No BM Per Bowel 02/24/25 02/18/25 (Dulcolax (bisacodyl)) Management Protocol buspirone 10 mg tablet 10 mg G-tube BID for depress ion 02/24/25 02/18/25 cholecalciferol (vitamin D3) 25 25 mcg G-tube BID supp lement 02/24/25 02/18/25 mcg (1,000 unit) tablet enoxaparin 40 mg/0.4 mL 40 mg SCi QDAY blood thinner 02/24/25 02/18/25 subcutaneous syringe glucagon 1 mg/0.2 mL subcutaneous 1 mg IM Q15MIN PRN H ypoglycemia 02/24/25 02/18/25 solution (Gvoke) insulin glargine-yfgn 100 unit/mL 8 unit SCi DAILY@180 0 Diabetes 12/01/25 11/25/25 (3 mL) subcutaneous pen levetiracetam 100 mg/mL oral 1,000 mg G-tube BID seizu res 02/24/25 02/18/25 solution magnesium hydroxide 400 mg/5 mL 30 ml G-tube PRN PRN C onstipation 02/24/25 02/18/25 oral suspension (Milk of Magnesia) polyethylene glycol 3350 17 gram 17 g G-tube PRN PRN N o BM Per 02/24/25 02/18/25 oral powder packet Bowel Management Protocol sodium chloride 1,000 mg soluble 1,000 mg G-tube QDAY 02/24/25 02/18/25 tablet valproic acid (as sodium salt) 250 500 mg G-tube TID 1 04/27/24 02/18/25 mg/5 mL oral solution Previous Rx's ?Medication ?Instructions ?Recorded cefTRIAXone/D5w 1gm IV premix 100 mls/hr IV DAILY 4 da ys #5 ea 10/27/24 [Rocephin/D5w 1gm IV premix] 1 gm in 50 ml cefTRIAXone/D5w 1gm IV premix 100 mls/hr IV DAILY Poss ible UTI 10/27/24 [Rocephin/D5w 1gm IV premix] 1 gm 30 days #5 ea in 50 ml Diazepam 5 mg IM PRNMRX1 PRN Seizures #5 mg 02/25/25 acetaminophen 325 mg tablet 650 mg (2 x 325 mg) G-tube Q6HR 02/25/25 PRN Pain 30 days #30 tabs ascorbic acid (vitamin C) 500 mg 500 mg G-tube BID for supplement 02/25/25 tablet #60 tabs aspirin 81 mg chewable tablet 81 mg G-tube QDAY to pre vent blood 02/25/25 clots 30 days #30 tabs atorvastatin 40 mg tablet 40 mg G-tube HS 30 days #30 tabs 02/25/25 bisacodyl 10 mg rectal suppository 10 mg AR PRN PRN No BM Per Bowel 02/25/25 (Dulcolax (bisacodyl)) Management Protocol 365 days #12 ea buspirone 10 mg tablet 10 mg G-tube BID depression #60 02/25/25 tabs carbamide peroxide 6.5 % ear drops 5 drp otic (ear) Q6 1D 220 days #15 02/25/25 (Ear Wax Removal Drops) mL carbamide peroxide 6.5 % ear drops 5 drp otic (ear) Q6 1D 220 days #15 02/25/25 (Ear Wax Removal Drops) mL carbamide peroxide 6.5 % ear drops 5 drp otic (ear) Q6 1D 221 days #15 02/25/25 (Ear Wax Removal Drops) mL carbamide peroxide 6.5 % ear drops 5 drp otic (ear) Q6 1D 221 days #15 02/25/25 (Ear Wax Removal Drops) mL carbamide peroxide 6.5 % ear drops 5 drp otic (ear) Q6 1D 222 days #15 02/25/25 (Ear Wax Removal Drops) mL carbamide peroxide 6.5 % ear drops 5 drp otic (ear) Q6 1D 222 days #15 02/25/25 (Ear Wax Removal Drops) mL carbamide peroxide 6.5 % ear drops 5 drp otic (ear) Q6 1D 223 days #15 02/25/25 (Ear Wax Removal Drops) mL carbamide peroxide 6.5 % ear drops 5 drp otic (ear) Q6 1D 223 days #15 02/25/25 (Ear Wax Removal Drops) mL cholecalciferol (vitamin D3) 25 25 mcg G-tube BID supp lement #60 02/25/25 mcg (1,000 unit) tablet tabs ferrous sulfate 220 mg (44 mg 325 mg (7.3864 mL) G-tub e BID 30 02/25/25 iron)/5 mL oral elixir days #221.592 mL fidaxomicin 200 mg tablet (Dificid) 200 mg PO BID #17 tabs 02/25/25 guaifenesin 100 mg/5 mL oral 300 mg (15 mL) G-tube Q6H R PRN 02/25/25 liquid (Taylor-Tussin) Cough 30 days #500 mL insulin glargine 100 unit/mL (3 8 unit (0.08 mL) SCi D AILY@1800 02/25/25 mL) subcutaneous pen (Lantus Diabetes 30 days #15 mL Solostar U-100 Insulin) ipratropium 0.5 mg-albuterol 3 mg 3 ml INH Q2HR PRN Wh eezing 30 days 02/25/25 (2.5 mg base)/3 mL nebulization #90 mL soln ipratropium 0.5 mg-albuterol 3 mg 3 ml INH Q2HR PRN Wh eezing 30 days 02/25/25 (2.5 mg base)/3 mL nebulization #90 mL soln levetiracetam 100 mg/mL oral 1,000 mg (10 mL) G-tube B ID 02/25/25 solution seizures #600 mL magnesium hydroxide 400 mg/5 mL 30 ml G-tube PRN PRN C onstipation 02/25/25 oral suspension (Milk of Magnesia) 365 days #355 mL polyethylene glycol 3350 17 gram 17 g G-tube PRN PRN N o BM Per 02/25/25 oral powder packet Bowel Management Protocol 36 5 days #14 ea sodium chloride 1,000 mg soluble 1,000 mg G-tube QDAY Hyponatremia 02/25/25 tablet #30 tabs valproic acid (as sodium salt) 250 500 mg (10 mL) G-tu be TID for 02/25/25 mg/5 mL oral solution seizures #900 mL enoxaparin 40 mg/0.4 mL 40 mg (0.4 mL) subcut QDAY f or 02/26/25 subcutaneous syringe blood thinner #12 mL insulin lispro 100 unit/mL See Rx Instructions subcut 06,18 03/05/25 subcutaneous pen 30 days #0 mL Allergies Allergy/AdvReac Type Severity Reaction Status Date / Time codeine Allergy Verified 06/24/24 19:33 Review of Systems Review of Systems ROS Unobtainable: unobtainable due to medical condition Physical Exam Narrative Physical exam: Generally patient is debilitated and vent dependent, heart tachycardic rate with regular rhythm, lungs show crackles diffusely, neck shows trach to be in place abdomen shows G-tube to be in place distended and tympanic neurologic exam shows the patient to be nonverbal and not interactive. Skin is warm pale and dry. Course Course Course Narrative: 2005: Sepsis alert initiated. Orders made at this time are congruent with ED Adult Sepsis Order List. Re-evaluation is to be completed. CXR is ordered for determining the etiology of fever. 2046: NS IVF ordered. Quality Measures Possible source: pulmonary Blood cultures ordered: yes Antibiotic ordered: Yes Pertinent labs: 03/16/25 20:10 Lactic Acid 4.3 H* mMol/L (0.4-2.0) Procalcitonin Pending sepsis Orders Category Date Time Status Internet Marketing Intern Q4H START 00 Care 03/16/25 20:06 Active Insert IV NOW Care 03/16/25 20:06 Active Strict Intake and Output Routine Care 03/16/25 20:06 Ordered Urinary Catheter NOW Care 03/16/25 20:06 Active XR chest 1V SEPSIS PROTOCOL Stat Exams 03/16/25 20:06 Completed Blood Culture (Lab) Stat Lab 03/16/25 20:15 Received CBC Stat Lab 03/16/25 20:10 Completed Comprehensive Metabolic Panel Stat Lab 03/16/25 20:10 Received Lactate (Lactic Acid) Stat Lab 03/16/25 20:10 Results Partial Thromboplastin Time Stat Lab 03/16/25 20:10 Completed Path Review Blood Smear Stat Lab 03/16/25 20:10 Completed Procalcitonin Stat Lab 03/16/25 20:10 Received Prothrombin Time with INR Stat Lab 03/16/25 20:10 Completed Troponin I Stat Lab 03/16/25 20:10 Received Urinalysis Stat Lab 03/16/25 20:06 Ordered Urine Culture Stat Lab 03/16/25 20:06 Ordered Acetaminophen Ivpb [Ofirmev Inj] Med 03/16/25 20:09 Discontinued 1,000 mg in 100 ml IV NOW Piper/Tazo Inj [Zosyn Inj] 4.5 gm Med 03/16/25 20:47 Active Sodium Chloride 0.9% (Pop) [NS 0.9% mini bag] 100 ml IV X1 Sodium Chloride 0.9% 1000 ml [Ns] 1,000 ml Med 03/16/25 20:47 Active IV 999 mls/hr Sodium Chloride 0.9% 500 ml [Ns] 500 ml Med 03/16/25 20:47 Active IV 999 mls/hr EKG (RT) Stat RT 03/16/25 20:06 Draft Vital Signs Vital signs: Vital Signs Temperature 103.3 F H 03/16/25 19:52 Pulse Rate 123 H 03/16/25 19:52 Respiratory Rate 17 03/16/25 19:52 Blood Pressure 164/99 H 03/16/25 19:52 Pulse Oximetry (%) 97 03/16/25 19:52 Fever MDM Narrative MDM Narrative:: Scribe Attestation: 03/16/25 - Hermila Paz am scribing for and in the presence of Dr. Sloan. Patient was admitted approximately 3 weeks ago for similar presentation of being ventilator dependent with pneumonia and sepsis. Lactic acid level today came back at 4.3. A day and a half ago the white count was 13,000 and today the patient's white count is 45,000. Temperature is 103.3 degrees. Patient received acetaminophen 1 g IV. On the patient's previous hospitalizations they treated her pneumonia with Zosyn so the patient was given Zosyn 4.5 g IV. I discussed the case with the hospitalist and the patient will be admitted to the hospital for further treatment and evaluation. Patient is DO NOT RESUSCITATE CODE STATUS. Patient data External records reviewed:: [facility] previous records (Per chart review, patient was admitted here on 02/17/25 for sepsis 2/2 pneumonia.) Clinical information provided by:: associate program manager Social determinants that could affect healthcare access:: housing (resides in subacute) Patient has the following chronic illnesses:: epilepsy, HTN, HLD, DM, anoxic brain injury s/p trach and PEG tube How is presenting disease/condition affected by chronic disease/condition?: exacerbated by Evaluation data The following diagnostics were reviewed and interpreted by me:: lab results, radiology exam(s) and EKG tracing(s) Lab and/or radiology exams considered but not ordered:: none Interpretation Summary: [facility] Report Signed Patient: YOANDY SANDOVAL. Record#: [id number] Birthdate: 1955 Age/Sex: 69 / F Location: [facility] Attending Dr: Ordering Physician: Joey Slona DO Date of Service: 03/16/25 Procedure(s): XR chest 1V SEPSIS PROTOCOL Accession Number(s): [id number] cc: Joon Pennington MD; NO PRIMARY/FAMILY,PHYSICIAN; Joey Sloan DO~ EXAMINATION: AP chest single view TECHNIQUE: AP portable semiupright chest single view Date and time: 2024, 2011 hours, comparison February 25, 2025 INDICATIONS: Sepsis alert. FINDINGS: Mild diffuse pneumonia in both lungs Mild prominence left ventricle Tracheostomy tube 4.6 cm above michael IMPRESSION: Mild diffuse pneumonia in both lungs Dictated By: Joon Pennington MD Signed By: <Electronically signed by Joon Pennington MD in OV> 03/16/252038 Medications / Prescriptions Medications or Prescriptions considered but not ordered:: none Medication administrations:: Medication Administration History Sodium Chloride (Ns) 500 mls @ 999 mls/hr IV .Q31M ONE Stop: 03/16/25 21:17 Sodium Chloride (Ns) 1,000 mls @ 999 mls/hr IV .Q1H1M ONE Stop: 03/16/25 21:47 Piperacillin Sod/Tazobactam (Sod 4.5 gm/ Sodium Chloride) 100 mls @ 200 mls/hr IV X1 ONE; Protocol Stop: 03/16/25 21:16 Discontinued Medications Acetaminophen (Ofirmev Inj) 1,000 mg in 100 mls @ 250 mls/hr IV NOW ONE Stop: 03/16/25 20:32 Last Admin: 03/16/25 20:17 Dose: 250 mls/hr Documented By: EB see above Consultations Consultation(s) initiated? (list below): Yes Diagnosis Fever Differential Diagnosis: other (See MDM) Most likely diagnosis given after review of the tests above:: see clinical impression below Admission Indicated Admission indicated?: indicated Admission Request Was there a request for admission?: Yes Admission Attestation Admission request attestation: Discussed case with [] from Hospitalist service regarding admission. Discussed patients ED course, exam findings, labs, and radiology results. The Hospitalist [agrees,declines] to accept the patient for admission. Disposition Plan Disposition Plan: Admit Critical Care Time Critical Care Time Critical Care Time: Yes Total Critical Care Time (min.): 35 Attestation: Excluding other billable procedures Discharge Plan Plan Patient Disposition: Admit Acute Care w/in Hospital Prescriptions/Referrals Prescriptions/Med Rec: No Action aspirin 81 mg Tablet,Chewable 81 mg G-tube QDAY Rx Instructions: Give one tab daily PGT for DVT prevention atorvastatin 20 mg Tablet 40 mg G-tube HS cholecalciferol (vitamin D3) 25 mcg (1,000 unit) Tablet 25 mcg G-tube BID artificial tear(hhuve-bah-rbv) [GenTeal Tears Moderate] 0.1-0.3-0.2 % Drops 2 drp Both eyes BID Rx Instructions: FOR DRYNESS sodium chloride 1,000 mg Tablet,Soluble 1,000 mg G-tube QDAY Rx Instructions: For Hyponatremia buspirone 10 mg Tablet 10 mg G-tube BID Patient Comments: AMB refusing care Rx Instructions: Continue Buspirone 10mg BID x30 days then re-evaluate with MD. insulin glargine-yfgn 100 unit/mL (3 mL) Insulin Pen 8 unit SCi DAILY@1800 Patient Comments: Hold if blood sugar is <80 bisacodyl [Dulcolax (bisacodyl)] 10 mg Suppository 10 mg AR PRN PRN (Reason: No BM Per Bowel Management Protocol) Rx Instructions: Administer as needed on 6th shift, if MOM ineffective. levetiracetam 100 mg/mL Solution 1,000 mg G-tube BID Rx Instructions: give [id number] for seizures valproic acid (as sodium salt) 250 mg/5 mL Solution 500 mg G-tube TID Rx Instructions: Valproic acid 250/5ml chelsey. Give 500mg (10ml) PGT for seizures Gvoke 1 mg/0.2 mL Solution 1 mg IM Q15MIN PRN (Reason: Hypoglycemia) magnesium hydroxide [Milk of Magnesia] 400 mg/5 mL Suspension 30 ml G-tube PRN PRN (Reason: Constipation) Rx Instructions: CONC: 400MG/5ML polyethylene glycol 3350 17 gram Powder In Packet 17 g G-tube PRN PRN (Reason: No BM Per Bowel Management Protocol) Rx Instructions: Mix with 4oz of water before giving. Hold tube feeding for 30 minutes after administration. Notify provider if no results from Miralax. enoxaparin 40 mg/0.4 mL Syringe 40 mg SCi QDAY ascorbic acid (vitamin C) 500 mg Tablet 500 mg G-tube BID acetaminophen 325 mg Tablet 650 mg G-tube Q4HR PRN (Reason: Fever > 100.4) Patient Comments: Not to exceed 3gm of Tylenol from all sources. Rx Instructions: fever protocol aspirin 81 mg tablet,chewable 81 mg G-tube QDAY 30 Days Qty: 30 0RF atorvastatin 40 mg tablet 40 mg G-tube HS 30 Days Qty: 30 0RF acetaminophen 325 mg tablet 650 mg G-tube Q6HR PRN (Reason: Pain) 30 Days Qty: 30 0RF Rx Instructions: Do not exceed more than 3gm of acetaminophen per day from all sources ipratropium-albuterol 0.5 mg-3 mg(2.5 mg base)/3 mL solution for nebulization 3 ml INH Q2HR PRN (Reason: Wheezing) 30 Days Qty: 90 0RF guaifenesin [Taylor-Tussin] 100 mg/5 mL liquid 300 mg G-tube Q6HR PRN (Reason: Cough) 30 Days Qty: 500 0RF Rx Instructions: Conc: 100MG/5ML- give 300mg/15ml ascorbic acid (vitamin C) 500 mg tablet 500 mg G-tube BID Qty: 60 11RF valproic acid (as sodium salt) 250 mg/5 mL solution 500 mg G-tube TID Qty: 900 11RF buspirone 10 mg tablet 10 mg G-tube BID Qty: 60 11RF enoxaparin 40 mg/0.4 mL syringe 40 mg subcut QDAY Qty: 12 11RF levetiracetam 100 mg/mL solution 1,000 mg G-tube BID Qty: 600 11RF sodium chloride 1,000 mg tablet,soluble 1,000 mg G-tube QDAY Qty: 30 11RF Rx Instructions: For Hyponatremia cholecalciferol (vitamin D3) 25 mcg (1,000 unit) tablet 25 mcg G-tube BID Qty: 60 11RF insulin glargine [Lantus Solostar U-100 Insulin] 100 unit/mL (3 mL) insulin pen 8 unit SCi DAILY@1800 30 Days Qty: 15 0RF ferrous sulfate 220 mg (44 mg iron)/5 mL elixir 325 mg G-tube BID 30 Days Qty: 221.592 0RF Rx Instructions: CONC: 220mg/5ml Give: 325mg/7.5ml Diazepam 5 mg IM PRNMRX1 PRN (Reason: Seizures) Qty: 5 1RF Rx Instructions: Diazepam 5mg/mL injection, Inject 5mg/mL intramuscularly as needed for seizures. If seizure persist administer 2nd dose. If not effective send PT to ER for further eval. and notify MD. *Single dose vial ipratropium-albuterol 0.5 mg-3 mg(2.5 mg base)/3 mL solution for nebulization 3 ml INH Q2HR PRN (Reason: Wheezing) 30 Days Qty: 90 0RF polyethylene glycol 3350 17 gram powder in packet 17 g G-tube PRN PRN (Reason: No BM Per Bowel Management Protocol) 365 Days Qty: 14 0RF Label Comments: Administer as needed if 2nd round bowel protocol ineffective. Rx Instructions: Mix with 4oz of water before giving. Hold tube feeding for 30 minutes after administration. Notify provider if no results from Miralax. magnesium hydroxide [Milk of Magnesia] 400 mg/5 mL suspension 30 ml G-tube PRN PRN (Reason: Constipation) 365 Days Qty: 355 0RF Rx Instructions: CONC: 400MG/5ML bisacodyl [Dulcolax (bisacodyl)] 10 mg suppository 10 mg AR PRN PRN (Reason: No BM Per Bowel Management Protocol) 365 Days Qty: 12 0RF Rx Instructions: Administer as needed on 6th shift, if MOM ineffective. Ear Wax Removal Drops 6.5 % drops 5 drp otic (ear) Q61D 223 Days Qty: 15 11RF Label Comments: 5 drops per ear at first med pass of shift. Then irrigate ears with NS at next med pass of each shift x 4 days for wax build up. Ear Wax Removal Drops 6.5 % drops 5 drp otic (ear) Q61D 222 Days Qty: 15 11RF Label Comments: 5 drops per ear at first med pass of shift. Then irrigate ears with NS at next med pass of each shift x 4 days for wax build up. Ear Wax Removal Drops 6.5 % drops 5 drp otic (ear) Q61D 222 Days Qty: 15 11RF Rx Instructions: 5 drops per ear at first med pass of shift. Then irrigate ears with NS at next med pass of each shift x 4 days for wax build up. *Start on the of the month, every two months. Ear Wax Removal Drops 6.5 % drops 5 drp otic (ear) Q61D 221 Days Qty: 15 11RF Label Comments: 5 drops per ear at first med pass of shift. Then irrigate ears with NS at next med pass of each shift x 4 days for wax build up. Ear Wax Removal Drops 6.5 % drops 5 drp otic (ear) Q61D 223 Days Qty: 15 11RF Rx Instructions: 5 drops per ear at first med pass of shift. Then irrigate ears with NS at next med pass of each shift x 4 days for wax build up. *Start on the of the month, every two months. Ear Wax Removal Drops 6.5 % drops 5 drp otic (ear) Q61D 221 Days Qty: 15 11RF Rx Instructions: 5 drops per ear at first med pass of shift. Then irrigate ears with NS at next med pass of each shift x 4 days for wax build up. *Start on the of the month, every two months. Ear Wax Removal Drops 6.5 % drops 5 drp otic (ear) Q61D 220 Days Qty: 15 11RF Label Comments: 5 drops per ear at first med pass of shift. Then irrigate ears with NS at next med pass of each shift x 4 days for wax build up. Ear Wax Removal Drops 6.5 % drops 5 drp otic (ear) Q61D 220 Days Qty: 15 11RF Label Comments: 5 drops per ear at first med pass of shift. Then irrigate ears with NS at next med pass of each shift x 4 days for wax build up. insulin lispro 100 unit/mL insulin pen See Rx Instructions subcut 06,18 30 Days Qty: 0 0RF Rx Instructions: Per Sliding Scale as follows: 0-150= 0 units; 151-200= 2 units; 201-250= 4 units; 251-300= 6 units; 301-350= 8 units; 351-400= 10 units; >400= 12 units; and call fidaxomicin [Dificid] 200 mg Tablet 200 mg PO BID Qty: 17 0RF Referrals: No Primary/Family,Physician [Primary Care Provider] - In 1 week Problem List Clinical Impression: Pneumonia, Sepsis, Dependent on ventilator Patient/Caregiver Discharge Instructions Print Language: Greenlandic Stand Alone Forms: Johana Award Info., Patient Portal Info Letter
--- NOTE | 2025-03-16 20:06 | EKG_ITS ---
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
--- NOTE | 2025-03-16 20:06 | XR_ITS ---
EXAMINATION: AP chest single view TECHNIQUE: AP portable semiupright chest single view Date and time: 2011 hours, comparison February 25, 2025 INDICATIONS: Sepsis alert. FINDINGS: Mild diffuse pneumonia in both lungs Mild prominence left ventricle Tracheostomy tube 4.6 cm above michael IMPRESSION: Mild diffuse pneumonia in both lungs
--- NOTE | 2025-03-16 20:07 | PC.NURSE ---
sepsis alert initiated Pt has temp will give IV tylenol per provider
[2025-03-16] MEDS: ACETAMINOPHEN IVPB 1,000 MG/100 ML VIAL 250 MG IV (20:17)
--- NOTE | 2025-03-16 20:18 | PC.NURSE ---
cooling measure initiated
--- NOTE | 2025-03-16 20:20 | PC.NURSE ---
sepsis education provided to Pt
[2025-03-16 20:22] VITALS: BP 109/77; PULSE 115; RESP 33; TEMP 39.2; O2SAT 97
[2025-03-16 20:30] LABS: Basophils # (Auto) 0.2 Thou/mm3 (0.0-0.2); Basophils % (Auto) 0 % (0-2.5); Eosinophils # (Auto) 0.2 Thou/mm3 (0.0-0.5); Eosinophils % (Auto) 0 % (0-10); Hematocrit 27.3 % (36.0-46.0); Hemoglobin 9.1 g/dL (12.0-16.0); Immature Granulocytes Auto 0.90 Thou/mm3 (0.00-0.00); Lymphocytes # (Auto) 1.8 Thou/mm3 (1.0-4.8); Lymphocytes % (Auto) 4 % (10-50); Mean Corpuscular HGB Conc 33.3 g/dl (31.0-37.0); Mean Corpuscular Hemoglobin 30.8 pg (25.0-35.0); Mean Corpuscular Volume 93 fL (80-100); Monocytes # (Auto) 4.4 Thou/mm3 (0.0-0.8); Monocytes % (Auto) 10 % (0-12); Neutrophils # (Auto) 37.7 Thou/mm3 (1.8-7.7); Neutrophils % (Auto) 83 % (37-80); Nucleated Red Blood Cell # 0.03 Thou/mm3 (0.00-0.00); Nucleated Red Blood Cell % 0 /100 WBC (0); Platelet Count 402 Thou/mm3 (140-440); RDW Standard Deviation 55.2 fL (36.4-46.3); Red Blood Count 2.95 Miln/mm3 (4.00-5.20)
[2025-03-16 20:32] LABS: Lactate (Lactic Acid) 4.3 mMol/L (0.4-2.0)
[2025-03-16 20:39] LABS: Path Review Blood Smear Sent to Pathologist; White Blood Count 45.1 Thou/mm3 (3.6-11.0)
[2025-03-16 20:51] LABS: INR 1.1 (0.9-1.3); Partial Thromboplastin Time 27.7 Seconds (22.0-36.0); Prothrombin Time 11.5 Seconds (9.0-12.2)
[2025-03-16] MEDS: SODIUM CHLORIDE 0.9% 1000 ML 1,000 ML 999 ML IV (20:56)
[2025-03-16] MEDS: PIPER/TAZO INJ 4.5 GM in SODIUM CHLORIDE 0.9% (POP) 100 ML IV (20:56)
[2025-03-16] MEDS: SODIUM CHLORIDE 0.9% 500 ML 500 ML 999 ML IV ×2 (20:56→22:39)
--- NOTE | 2025-03-16 21:00 | PD.EDADDENDU ---
Emergency Room Addendum Addendum Narrative: EKG done at 8:30 PM shows sinus tachycardia at a rate of [address] segment change.
[2025-03-16 21:04] LABS: Alanine Aminotransferase 10 U/L (10-49); Albumin, Serum 4.0 gm/dL (3.4-4.8); Albumin/Globulin Ratio 1.1 (1.2-2.2); Alkaline Phosphatase 77 U/L (46-116); Anion Gap 11 (7-16); Aspartate Amino Transferase 23 U/L (0-34); BUN/Creatinine Ratio 20 Ratio (12-20); Bilirubin,Total 0.3 mg/dL (0.3-1.2); Blood Urea Nitrogen 14 mg/dL (9-23); Calcium 9.2 mg/dL (8.3-10.6); Calcium (Corrected) 9.2 mg/dL (8.5-10.1); Carbon Dioxide 28.9 mMol/L (20.0-31.0); Chloride 92 mMol/L (98-107); Creatinine (Component) 0.7 mg/dL (0.6-1.3); Estimated Creatinine Clearance 64.6 mL/min (>60); Globulin 3.8 gm/dL (2.3-3.5); Glucose 213 mg/dL (74-106); Osmolality,Calculated 271 (275-295); Potassium 4.3 mMol/L (3.4-5.1); Procalcitonin 0.16 ng/ml (0.0-0.49); Sodium 132 mMol/L (136-145); Total Protein 7.8 gm/dL (5.7-8.2); Troponin I < 0.020 ng/mL (0.0-0.045); eGFR > 60 See Note
--- NOTE | 2025-03-16 22:28 | PC.NURSE ---
Pt BP 79/47 and next 89/55 after 1500 fluid bolus and [place] Admitting hosp made aware no new orders will consult with ED MD
[2025-03-16 22:34] VITALS: BP 89/55; PULSE 85; RESP 22; TEMP 37.4; O2SAT 98
--- NOTE | 2025-03-16 22:41 | PC.NURSE ---
Per MD another IVF bolus 500 ml so far lungs ok to auscultation
[2025-03-16 23:02] LABS: Collection Type, Urine Catheter
[2025-03-16 23:10] VITALS: BP 75/51
[2025-03-16 23:14] LABS: Amorphous Crystals,Urine Present (Absent); Bacteria,Urine 1+; Bilirubin,Urine Negative (Negative); Blood,Urine 2+ (Negative); Clarity,Urine Clear (Clear/Hazy); Color,Urine Yellow (Lt Yel-Yel); Glucose, Urine 1+ (Negative); Ketones,Urine Trace (Negative); Leukocyte Esterase,Urine Positive (Negative); Nitrite,Urine Negative (Negative); PH,Urine 7.0 (5.0-7.0); Protein,Urine 1+ (Neg - Trace); RBC,Urine 9 /hpf (0-3); Specific Gravity,Urine 1.024 (1.001-1.035); Squamous Epithelial Cell,Urine 1 /hpf (0-5); Urobilinogen,Urine Negative mg/dL (0.0-1.0); WBC,Urine 7 /hpf (0-5)
--- NOTE | 2025-03-16 23:20 | XR_ITS ---
Examination: CT abdomen and pelvis without contrast. Coronal 3-D reconstructions. Sagittal 2-D reconstructions. Date and time of exam: March 17, 2025, 12:30 a.m. INDICATION: Sepsis fever unknown origin today CTDI: vol (mGy): 21.9 DLP: (mGycm): 1260 Technique: Axial images of the abdomen have been obtained, 3 mm slice thickness Intravenous contrast material has not been administered. Low dose protocols were performed. One or more of the following dose reduction techniques were used; automated exposure control, adjustment of the mA and/or KV according to patient size, use of iterative reconstruction technique. Findings: Bibasilar pneumonia Fatty infiltration throughout the liver, moderate hepatomegaly Cholelithiasis No pancreatic or adrenal mass No renal or ureteral calculi Gastrostomy satisfactory position Acute diverticulitis descending and sigmoid colon, no abscess or perforation Calcified areas of uterine fibroid degeneration Urinary bladder wall thickening Numerous soft nodular densities in the anterior abdominal wall which may be small foci of infection, recommend ultrasound anterior abdominal wall follow-up Ulceration posterior to with early osteomyelitis distal sacral and coccygeal segments IMPRESSION: Bibasilar pneumonia Cholelithiasis Acute diverticulitis descending colon and sigmoid colon, no peridiverticular abscess Cystitis distal sacrum and coccyx Soft tissue ulcer posterior to the distal sacral segments and coccygeal segments with early osteomyelitis involving the segments
[2025-03-16 23:23] LABS: Reflex Lactate? Y
[2025-03-16] MEDS: RINGERS LACTATED 500 ML 500 ML 999 ML IV (23:23)
[2025-03-16 23:37] LABS: Lactate (Lactic Acid) 3.2 mMol/L (0.4-2.0)
[2025-03-16 23:39] VITALS: BP 81/48
--- NOTE | 2025-03-16 23:39 | PC.NURSE ---
Pt remains severely hypotensive and 500 LR bolus ordered only. no pressors
[2025-03-17] VITALS (19 sets, daily range): BP systolic 118–188; BP diastolic 62–89; PULSE 69–113; RESP 18–38; TEMP 36.6–39.2; O2SAT 94–100; BMI 22.7
--- NOTE | 2025-03-17 00:32 | ESHP_ITS ---
Documentation for date of: 03/17/25 HPI History of Present Illness Chief complaint: Fever History of present illness: This patient is a 69-year-old female with a history of epilepsy, hypertension, hyperlipidemia, T2DM, anoxic brain injury s/p trach and PEG who presented to [facility] ED from [facility] subacute care on 03/16 for a fever of 103 ?F. The patient was admitted for management of sepsis. Given the patient's trach and PEG, communication with the patient was difficult. Additionally, it is unclear how the patient's mental status was during previous visits, however at this time the patient was completely unresponsive, even to sternal rub, but did open her eyes periodically. Otherwise, the patient did not follow any commands. Most of the patient's history was obtained via chart review. Earlier today, the patient was noted to have a fever of 103 ?F at [facility] subacute care, which prompted the patient to be sent to the ED for further evaluation. The patient was recently admitted a bit under a month ago for similar presentation of a fever and shortness of breath. At that time, the patient was also noted to have significant leukocytosis similar to how she presented in the ED, which prompted examination for C. difficile when the patient was admitted and found to have watery loose stools. Stool antigen testing ended up being positive for C. difficile, and so patient was treated with vancomycin and Zosyn (initially vancomycin and cefepime), and the vancomycin was later changed to fidaxomicin 200 mg twice daily as recommended by ID consultation. The patient remained afebrile with improvement of WBC on fidaxomicin, and so the patient was discharged back to subacute care with fidaxomicin to complete her 10-day course of fidaxomicin. Given that the patient had lab draw yesterday on 03/15 which showed a WBC of 13.0, which then spiked to 45.1 in the ED in the span of a bit over a day, there is high suspicion for repeat C. difficile as a source of her infection. ROS unobtainable due to unresponsiveness on initial evaluation. ED course: Initial vitals significant for blood pressure of 164/99, heart rate of 123, and temperature of 103.3 ?F. Blood pressure did drop to as low as 75/51 and temperature did rise to as high as 104 ?F. Initial vitals significant for WBC of 25.1, hemoglobin 9.1, sodium of 132, chloride of 92, and lactic acid of 4.3 Chest x-ray shows mild diffuse pneumonia in both lungs CT abdomen/pelvis preliminary read does show acute sigmoid diverticulitis without perforation or abscess, sacral decubitus ulceration, cholelithiasis, bibasilar pulmonary atelectasis/infiltrate, hepatomegaly, and possible cystitis. Patient was given 1 g of acetaminophen IV, 2.5 L of IV fluids, and Zosyn. Past Surgical History: PEG tube placement, tracheostomy, oophorectomy Current Medication(s): Pending med rec Allergies (w/ Reactions): NKDA Family History: Noncontributory Alcohol Intake: Negative Tobacco/Vape Use: Negative Other Drug Use: Negative Review of Systems Review of Systems ROS Unobtainable: unobtainable due to mental status Exam Vital Signs Temp Pulse Resp BP Pulse Ox O2 Del Method 99.3 F 85 22 H 127/64 98 Trans-Tracheal Cannula 03/16/25 22:34 03/16/25 22:34 03/16/25 22:34 03/17/25 00:16 03/16/25 22:34 03/16/25 22:34 Narrative Exam Physical Exam: General: Non-responsive, no acute distress. Trach and PEG in place, on mechanical ventilation. Skin: Warm, dry, intact. Head: Normocephalic, atraumatic. Eye: Normal conjunctiva, PERRL. Cardiovascular: Regular rate and rhythm, no murmur, +S1/S2. Respiratory: Lungs are clear to auscultation, respirations unlabored, no crackles, no wheezing. Gastrointestinal: Soft, nontender, nondistended. No guarding or rebound tenderness. Extremities: No edema, no cyanosis, no clubbing. 2+ radial pulse bilaterally, 2+ pedal pulse bilaterally. Back: Diaper rash noted, slight pressure wound on coccyx without any drainage or pus. Results: Labs 03/17/25 03:34 03/17/25 03:34 Labs: Short CBC 03/16/25 Range/Units 20:10 WBC 45.1 H* D (3.6-11.0) Thou/mm3 Hgb 9.1 L (12.0-16.0) g/dL Hct 27.3 L (36.0-46.0) % Plt Count 402 D (140-440) Thou/mm3 BMP 03/16/25 20:10 Sodium 132 L Potassium 4.3 Chloride 92 L Carbon Dioxide 28.9 BUN 14 Creatinine 0.7 Glucose 213 H Calcium 9.2 Cardiac Enzymes 03/16/25 Range/Units 20:10 Troponin I < 0.020 (0.0-0.045) ng/mL Liver Function 03/16/25 Range/Units 20:10 Total Bilirubin 0.3 (0.3-1.2) mg/dL AST 23 (0-34) U/L ALT 10 (10-49) U/L Alkaline Phosphatase 77 (46-116) U/L Albumin 4.0 (3.4-4.8) gm/dL Urine 03/16/25 Range/Units 22:50 Urine Color Yellow (Lt Yel-Yel) Urine Clarity Clear (Clear/Hazy) Urine pH 7.0 (5.0-7.0) Ur Specific [place] 1.024 (1.001-1.035) Urine Protein 1+ A (Neg - Trace) Urine Glucose (UA) 1+ A (Negative) Quality Measures Quality Measures VTE prophylaxis and sepsis Current suspected stage: sepsis Possible source: pulmonary and GI tract/intra-abdominal Blood cultures ordered: yes Antibiotic ordered: Yes Advance care planning discussed with:: patient Medications Home Medications and Allergies Home Medications ?Medication ?Instructions ?Recorded ?Confirmed ?Type acetaminophen 325 mg tablet 650 mg G-tube Q4HR PRN Fev er > 02/24/25 02/18/25 History 100.4 artificial 2 drp Both eyes BID 02/24/25 02/18/25 History tears(oxibvup-qacgaudk-vgzgzfb) 0.1 %-0.3 %-0.2 % eye drops (GenTeal Tears Moderate) ascorbic acid (vitamin C) 500 mg 500 mg G-tube BID sup plement 02/24/25 02/18/25 History tablet aspirin 81 mg chewable tablet 81 mg G-tube QDAY 02/18/25 History atorvastatin 20 mg tablet 40 mg G-tube HS hyperlipidem ia 02/24/25 02/18/25 History bisacodyl 10 mg rectal suppository 10 mg WI PRN PRN No BM Per Bowel 02/24/25 02/18/25 History (Dulcolax (bisacodyl)) Management Protocol buspirone 10 mg tablet 10 mg G-tube BID for depress ion 02/24/25 02/18/25 History cholecalciferol (vitamin D3) 25 25 mcg G-tube BID supp lement 02/24/25 02/18/25 History mcg (1,000 unit) tablet enoxaparin 40 mg/0.4 mL 40 mg SCi QDAY blood thinner 02/24/25 02/18/25 History subcutaneous syringe glucagon 1 mg/0.2 mL subcutaneous 1 mg IM Q15MIN PRN H ypoglycemia 02/24/25 02/18/25 History solution (Gvoke) insulin glargine-yfgn 100 unit/mL 8 unit SCi DAILY@180 0 Diabetes 02/24/25 02/18/25 History (3 mL) subcutaneous pen levetiracetam 100 mg/mL oral 1,000 mg G-tube BID seizu res 02/24/25 02/18/25 History solution magnesium hydroxide 400 mg/5 mL 30 ml G-tube PRN PRN C onstipation 02/24/25 02/18/25 History oral suspension (Milk of Magnesia) polyethylene glycol 3350 17 gram 17 g G-tube PRN PRN N o BM Per 02/24/25 02/18/25 History oral powder packet Bowel Management Protocol sodium chloride 1,000 mg soluble 1,000 mg G-tube QDAY 02/24/25 02/18/25 History tablet valproic acid (as sodium salt) 250 500 mg G-tube TID 1 04/27/24 02/18/25 History mg/5 mL oral solution Allergies Allergy/AdvReac Type Severity Reaction Status Date / Time codeine Allergy Verified 06/24/24 19:33 Visit Medications Acetaminophen (Acetaminophen 325 Mg Tablet) 650 mg NG Q6H PRN PRN Reason: Fever >101.5 or pain 1-3 Stop: 04/16/25 00:22 Heparin Sodium (Porcine) (Heparin Sod Inj 5000 Unit/Ml Vial) 5,000 unit SC Q12H JAYMIE Stop: 03/31/25 00:29 Vancomycin HCl 1,000 mg/ (Sodium Chloride) 250 mls @ 150 mls/hr IV X1 ONE Stop: 03/17/25 01:46 Piperacillin/Tazobactam/Dextrose (Zosyn) 50 mls @ 100 mls/hr IV Q6HR JAYMIE; Protocol Stop: 03/24/25 00:09 Piperacillin/Tazobactam/Dextrose (Zosyn) 3.375 gm in 50 mls @ 100 mls/hr IV X1 ONE; Protocol Stop: 03/17/25 00:59 Lactated Ringer's (Lactated Ringers) 1,000 mls @ 120 mls/hr IV .Q8H20M ONE Stop: 03/17/25 08:40 Pharmacy Consult (Vancomycin Pharmacy To Dose 1 Each Each) 1 each IV QDAY JAYMIE Stop: 04/16/25 08:59 Discontinued Medications Acetaminophen (Ofirmev Inj) 1,000 mg in 100 mls @ 250 mls/hr IV NOW ONE Stop: 03/16/25 20:32 Last Infusion: 03/16/25 22:02 Dose: Infused Sodium Chloride (Ns) 500 mls @ 999 mls/hr IV .Q31M ONE Stop: 03/16/25 21:17 Last Infusion: 03/16/25 22:04 Dose: Infused Sodium Chloride (Ns) 1,000 mls @ 999 mls/hr IV .Q1H1M ONE Stop: 03/16/25 21:47 Last Infusion: 03/16/25 22:03 Dose: Infused Piperacillin Sod/Tazobactam (Sod 4.5 gm/ Sodium Chloride) 100 mls @ 200 mls/hr IV X1 ONE; Protocol Stop: 03/16/25 21:16 Last Infusion: 03/16/25 22:03 Dose: Infused Sodium Chloride (Ns) 500 mls @ 999 mls/hr IV .Q31M ONE Stop: 03/16/25 22:07 Last Infusion: 03/16/25 23:23 Dose: Infused Lactated Ringer's (Lactated Ringers) 500 mls @ 999 mls/hr IV .Q31M ONE Stop: 03/16/25 23:45 Last Admin: 03/16/25 23:23 Dose: 999 mls/hr Midodrine (Midodrine 5 Mg Tablet) 5 mg GT X1 ONE Stop: 03/16/25 23:14 Last Admin: 03/16/25 23:22 Dose: Not Given Assessment & Plan Plan This patient is a 69-year-old female with a history of epilepsy, hypertension, hyperlipidemia, T2DM, anoxic brain injury s/p trach and PEG who presented to [facility] ED from [facility] subacute care on 03/16 for a fever of 103 ?F. The patient was admitted for management of sepsis. #Severe Sepsis #Acute sigmoid diverticulitis #History of recurrent C. difficile #Urinary tract infection #Pneumonia? Patient noted to have a recurrent history of C. difficile and has noted to have loose stools during previous subacute care notes. Unable to get a hold of subacute nurse for further information, however the patient was noted to have significantly elevated WBC similar to previous admissions for C. difficile infection. The patient was previously discharged to complete a course of fidaxomicin for the C. difficile infection. Other possible sources of infection include urinary tract infection given dirty UA and possibly pneumonia given chest x-ray suspicious for pneumonia. The patient is noted to have significantly low blood pressure in the ED requiring 2.5 L of fluid resuscitation and initiation of maintenance fluids to maintain her blood pressure. Endorgan damage noted with elevated lactic acid with lack of hypoxemia as the patient has been maintaining oxygen saturations in the high 90s. Diagnostic: qSOFA score 2-3, 3-14 fold increase in in-hospital mortality rate WBC 45.1 on admission Lactic acid 4.3 on admission Chest x-ray on 03/16 shows mild diffuse pneumonia in both lungs CT abdomen/pelvis on 03/16 preliminary read does show acute sigmoid diverticulitis without perforation or abscess, sacral decubitus ulceration, cholelithiasis, bibasilar pulmonary atelectasis/infiltrate, hepatomegaly, and possible cystitis. Urinalysis on 03/16 shows 1+ protein, 1+ glucose, 2+ blood, positive leukocyte esterase, 9 RBC, 7 WBC, and 1+ urine bacteria Blood cultures collected on 03/16, pending Urine culture collected on 03/16, pending C. difficile PCR ordered, pending Treatment: Zosyn 3.375 g every 8 hours (03/16?) Vancomycin, pharmacy to dose daily (03/16?) Oral vancomycin via G-tube 125 mg every 12 hours for C. difficile prophylaxis Will trend lactic acid until within normal limits Contact precautions Patient is status post 2.5 L of IV fluids from ED, currently running 1 L of maintenance fluid at 120 cc/h #Seizure disorder Patient is noted to have a seizure disorder and has been prescribed levetiracetam 1000 mg twice daily and valproic acid 500 mg 3 times daily at the subacute. Unclear what her seizures look like. Treatment: Resumed home levetiracetam 1000 mg twice daily and valproic acid 500 mg 3 times daily Seizure precautions ordered Lorazepam 2 mg IV push every 8 hours as needed for seizures #Hyponatremia Patient noted to have a sodium of 132 on admission. Patient does have a history of hyponatremia and has previously received salt tablets at the nursing facility for management of this condition. Treatment: Consider resuming salt tablets if hyponatremia worsens #Cholelithiasis Patient noted to have cholelithiasis on CT abdomen/pelvis. Low suspicion for any acute cholecystitis or cholangitis given that the patient does not have any elevation in LFTs and abdomen examination is benign. Treatment: If patient shows signs of abdominal pain, consider abdominal ultrasound for further evaluation #Normocytic anemia, chronic On admission, patient noted to have a hemoglobin of 9.1 with and a MCV of 93. This appears to be a chronic issue for the patient as her hemoglobin has been lower in the past. Treatment: Patient to follow-up outpatient If hemoglobin is less than 7, will transfuse as per protocol #Anoxic brain injury #Status post tracheostomy #Status post PEG tube placement #PEG tube feeding Patient is noted to have a history of anoxic brain injury that resulted in the patient requiring trach tube and PEG tube placement. Patient receives nutrition via tube feeding. No apparent documentation on what the current tube feeding and rate is. Treatment: Resumed patient's home aspirin 81 mg daily Registered dietitian to evaluate for tube feeds #Insulin-dependent type 2 diabetes mellitus Patient noted to have a history of diabetes and requires insulin. Patient does take insulin glargine 8 units subcutaneous nightly at the subacute that she comes from. Treatment: Sliding scale insulin Blood glucose checks every 6 hours Registered dietitian to evaluate for tube feeds #History of hypertension #History of hyperlipidemia Patient noted to have a history of hypertension and hyperlipidemia. Given that the patient was having hypotension during admission secondary to her sepsis, we will hold off on antihypertensives for now. Treatment: Resumed home on atorvastatin 40 mg nightly #Code Status No POLST form was provided on admission. Hospitalist team called the patient's sister who was noted as the patient's person to notify in the EMR, who wished for the patient to be full code, but if the patient were to have a CODE BLUE, the patient sister would like to be notified to change the patient's CODE STATUS to DNR. Treatment: Patient made full code, will call patient Sister for CODE STATUS changes as needed DVT Prophylaxis: Heparin GI Prophylaxis: N/A Bowel: N/A Diet: Pending dietitian tube feed recommendation [place]: Yes Lines: Peripheral IV, trach tube, PEG tube Antibiotics: Vancomycin and ceftriaxone; oral vancomycin Code Status: FULL Reason for Hospitalization: Sepsis Other Barriers to Discharge: Blood cultures Patient plan of care was discussed with attending physician Dr. Cecy Francis, PGY1 Attending Provider Attestation/Addendum I, Ivelisse Sam DO, attest that I was physically present for the hu portions of the service and evaluated the patient with the resident and I reviewed and discussed the case with the resident and agree with the resident's findings and plans of care as documented above Patient is a 69-year-old female with past medical history of epilepsy, hypertension, type 2 diabetes, anoxic brain injury, vegetative state, trach and PEG dependent, recurrent C. difficile who was brought from subacute facility for temperature of 102.9 despite antipyretics. Patient was subsequent brought to ED and noted to have a leukocytosis of 45.1, anemia 9.1 and lactic acid of 4.3 she was also noted to be hypotensive, but fluid responsive after receiving 3 L of IV fluids. UA noted to be positive for 1+ bacteria. Patient has been secretions noted and is mechanically ventilated. No changes noted on vent settings. Chest x-ray showed mild diffuse pneumonia in bilateral lungs. Patient is mechanically ventilated breath sounds with some rhonchi. She is able to gesture yes/no by nodding and shaking her head. Patient denies any pain in her abdomen. Patient was recently admitted during which she had a C. difficile infection with a similar presentation with leukocytosis of 49 on presentation. Will treat patient empirically for both ventilator associate pneumonia versus UTI with broad-spectrum antibiotics. Will prophylactically cover for C. difficile colitis with vancomycin 125 mg p.o. twice daily. Will admit patient to otology for further workup and medical management of sepsis secondary to UTI versus VAP's versus C. difficile colitis. Will obtain a CT abdomen pelvis as well to further investigate any other possible sources of infection. No peripheral edema noted.
[2025-03-17] MEDS: HEPARIN SOD INJ 5000 UNIT/ML VIAL SC (00:57)
[2025-03-17] MEDS: PIPER/TAZO 3.375 GM PREMIX 3.375 GM/50 ML BAG IV ×4 (00:58→21:53)
[2025-03-17] MEDS: Vancomycin Inj 1,000 MG in SODIUM CHLORIDE 0.9% 250 ML 250 ML 150 MG IV (01:19)
[2025-03-17] MEDS: RINGERS LACTATED 1000 ML 1,000 ML 120 ML IV (01:27)
--- NOTE | 2025-03-17 01:57 | PC.NURSE ---
pedritoar to Sari MEJIA
[2025-03-17] MEDS: LORazepam 2 MG/ML VIAL IVP (02:27)
--- NOTE | 2025-03-17 02:27 | PD.RESEVENT ---
Documentation for date of: 03/17/25 Event Note Event Note: Rapid Response Room:?276 Time:?217 Reason for Call:?Seizure-like activity Patient presentation:?Patient noted to have shaking of bilateral upper extremities Events:? Rapid response was called 021 as the patient was noted to have shaking movement in her bilateral upper extremities. Since the patient has been in the ED since 7 PM, it was assumed that the patient had not received any evening dose of her antiepileptic medication. Upon evaluation of the patient, the patient was having shaking movements in her bilateral upper extremities, however did follow commands to look one way and then the other. Patient received lorazepam 2 mg IV push which resulted in the patient having resolution of her shaking almost immediately as the lorazepam was given. New orders:?Lorazepam 2 mg IV push x 1, Keppra 1000 mg IV x 1 Patient was discussed with the attending, Dr. Cecy Francis, PGY-1
[2025-03-17 02:33] LABS: Reflex Lactate? Y
--- NOTE | 2025-03-17 02:38 | PRELIM_ITS ---
CT scan of the abdomen and pelvis without intravenous contrast (axial sections with sagittal and coronal reformats) March 17, 2025 0030 hours Clinical History: History of C-diff and cystitis Comparison: None Findings: There is bibasilar atelectasis/infiltrate. Cholelithiasis. The liver is enlarged, 20 cm long. The spleen, pancreas, and kidneys are unremarkable. Gastrostomy. No urinary tract stone or obstruction is identified. The appendix is normal, best seen on image 147. The urinary bladder is decompressed, limiting evaluation with possible wall thickening. Calcified uterine fibroids up to 3 cm. No free intraperitoneal air or fluid. There is no adnexal cyst or mass. Sigmoid diverticulosis with wall thickening and adjacent fat stranding. Bowel caliber is normal. No acute osseous process. Sacral decubitus ulcer with resorption of the distal sacrum. No fluid collection or abscess. Impression: Acute sigmoid diverticulitis without perforation or abscess. Sacral decubitus ulceration. Cholelithiasis. Bibasilar pulmonary atelectasis/infiltrate, concern for aspiration. Hepatomegaly. Possible cystitis. Report Electronically Signed By: Abhilash Leigh 03/17/2025 2:37:59 AM [EST]
[2025-03-17] MEDS: levETIRAcetam INJ 100 MG/ML VIAL 5ML 1000 MG IVP (03:01)
[2025-03-17] MEDS: VALPROIC ACID SYRUP 250 MG/5 ML UDC 500 MG GT ×4 (03:01→21:41)
[2025-03-17 03:41] LABS: Lactate (Lactic Acid) 3.9 mMol/L (0.4-2.0)
[2025-03-17 03:48] LABS: Basophils # (Auto) 0.2 Thou/mm3 (0.0-0.2); Basophils % (Auto) 0 % (0-2.5); Eosinophils # (Auto) 0.0 Thou/mm3 (0.0-0.5); Eosinophils % (Auto) 0 % (0-10); Hematocrit 26.4 % (36.0-46.0); Immature Granulocytes Auto 1.08 Thou/mm3 (0.00-0.00); Lymphocytes # (Auto) 1.8 Thou/mm3 (1.0-4.8); Lymphocytes % (Auto) 4 % (10-50); Mean Corpuscular HGB Conc 33.0 g/dl (31.0-37.0); Mean Corpuscular Hemoglobin 30.4 pg (25.0-35.0); Mean Corpuscular Volume 92 fL (80-100); Monocytes # (Auto) 3.8 Thou/mm3 (0.0-0.8); Monocytes % (Auto) 8 % (0-12); Neutrophils # (Auto) 40.7 Thou/mm3 (1.8-7.7); Neutrophils % (Auto) 85 % (37-80); Nucleated Red Blood Cell # 0.02 Thou/mm3 (0.00-0.00); Nucleated Red Blood Cell % 0 /100 WBC (0); Platelet Count 347 Thou/mm3 (140-440); RDW Standard Deviation 56.1 fL (36.4-46.3); Red Blood Count 2.86 Miln/mm3 (4.00-5.20)
[2025-03-17 03:54] LABS: Hemoglobin 8.7 g/dL (12.0-16.0); White Blood Count 47.6 Thou/mm3 (3.6-11.0)
[2025-03-17 03:55] LABS: Path Review Blood Smear Sent to Pathologist
[2025-03-17 04:05] LABS: Alanine Aminotransferase 9 U/L (10-49); Albumin, Serum 3.5 gm/dL (3.4-4.8); Albumin/Globulin Ratio 0.9 (1.2-2.2); Alkaline Phosphatase 67 U/L (46-116); Anion Gap 10 (7-16); Aspartate Amino Transferase 24 U/L (0-34); BUN/Creatinine Ratio 19 Ratio (12-20); Bilirubin,Total 0.3 mg/dL (0.3-1.2); Blood Urea Nitrogen 15 mg/dL (9-23); Calcium 9.0 mg/dL (8.3-10.6); Calcium (Corrected) 9.4 mg/dL (8.5-10.1); Carbon Dioxide 28.6 mMol/L (20.0-31.0); Chloride 97 mMol/L (98-107); Creatinine (Component) 0.8 mg/dL (0.6-1.3); Estimated Creatinine Clearance 56.5 mL/min (>60); Globulin 3.7 gm/dL (2.3-3.5); Glucose 152 mg/dL (74-106); Magnesium 2.0 mg/dL (1.6-2.6); Osmolality,Calculated 275 (275-295); Phosphorous 3.7 mg/dL (2.4-5.1); Potassium 4.9 mMol/L (3.4-5.1); Sodium 136 mMol/L (136-145); Total Protein 7.2 gm/dL (5.7-8.2); eGFR > 60 See Note
--- NOTE | 2025-03-17 04:05 | PC.NURSE ---
SPOKE WITH DR. ANAYA REGARDING POLST W/DNR STATUS. PT AT THE MOMENT IS LISTED FULL CODE. PER DR. ANAYA, HE SPOKE WITH PT'S SISTER REGARDING CODE STATUS (NO POLST FORM FROM SUBACUTE PER MD) AND SISTER WOULD LIKE PT FULL CODE STATUS. DR. ANAYA MADE AWARE OF TRENDING UP WBC AND LACTIC ACID.CONTINUE CURRENT MANAGEMENT AT THIS TIME.
[2025-03-17] MEDS: VANCOMYCIN 25 MG/ML 125 MG GT ×2 (04:24→21:53)
[2025-03-17 06:39] LABS: Reflex Lactate? Y
[2025-03-17 08:08] LABS: OBS Developer Lot # 04-24-551749; OBS QC OK? Yes; Occult Blood, Stool Positive (Negative)
--- NOTE | 2025-03-17 08:32 | PC.DIETICIAN ---
Nutrition prescription Glucerna 1.2 at 30 ml/hr via PEG tube by pump. Advance 10 ml every 8 hrs to goal rate of 58 ml/hr x 24 hrs. If no IV fluids, water flushes of 30 ml/hr (or per MD). Provides: 1670 kcal, 84 g prot, 1120 ml free water, 1392 ml total volume.
[2025-03-17 08:45] LABS: Lactic Acid, 3 HR 3.5 mMol/L (0.4-2.0)
[2025-03-17 08:50] LABS: Platelet Count 346 Thou/mm3 (140-440)
[2025-03-17] MEDS: ASPIRIN EC 81 MG TABEC PO (09:05)
[2025-03-17 09:21] LABS: C-Reactive Protein 21.2 mg/dL (0.0-0.9)
[2025-03-17 09:28] LABS: Sed Rate (ESR) 33 mm/hr (0-30)
--- NOTE | 2025-03-17 09:31 | PD.IDPROG ---
Subjective Subjective Interval history: asked to see for leucocytosis on zosyn/vanco. Exam Vital Signs Temp Pulse Resp BP Pulse Ox O2 Del Method FiO2 97.8 F 112 H 32 H 135/83 H 98 Trans-Tracheal Cannula 30 03/17/25 08:00 03/17/25 08:00 03/17/25 08:00 03/17/25 08:00 03/17/25 08:00 03/17/25 08:00 03/17/25 08:00 Narrative Exam somnolent. on 30% on vent. t and p noted. code status noted. fernie noted, chronic. Objective - Internal Medicine Labs 03/17/25 08:18 03/17/25 03:34 Labs: Laboratory Results - last 24 hr 03/16/25 03/16/25 03/16/25 20:10 22:50 23:27 WBC 45.1 H* D RBC 2.95 L Hgb 9.1 L Hct 27.3 L MCV 93 MCH 30.8 MCHC 33.3 RDW Std Deviation 55.2 H Plt Count 402 D Neut % (Auto) 83 H Lymph % (Auto) 4 L Ritchie % (Auto) 10 Eos % (Auto) 0 Baso % (Auto) 0 Neut # (Auto) 37.7 H Lymph # (Auto) 1.8 Ritchie # (Auto) 4.4 H Eos # (Auto) 0.2 Baso # (Auto) 0.2 Immature Gran # (Auto) 0.90 H Absolute Nucleated RBC 0.03 H Immature Gran % 2 H Nucleated RBC % 0 Smear Path Review Sent to Pathologist ESR PT 11.5 INR 1.1 APTT 27.7 Sodium 132 L Potassium 4.3 Chloride 92 L Carbon Dioxide 28.9 Anion Gap 11 BUN 14 Creatinine 0.7 Estim Creat Clear Calc 64.6 eGFR > 60 BUN/Creatinine Ratio 20 Glucose 213 H Calculated Osmolality 271 L Lactic Acid 4.3 H* 3.2 H Calcium 9.2 Corrected Calcium 9.2 Phosphorus Magnesium Total Bilirubin 0.3 AST 23 ALT 10 Alkaline Phosphatase 77 Troponin I < 0.020 C-Reactive Prot, Quant Total Protein 7.8 Albumin 4.0 Globulin 3.8 H Albumin/Globulin Ratio 1.1 L Procalcitonin 0.16 Ur Collection Type Catheter Urine Color Yellow Urine Clarity Clear Urine pH 7.0 Ur Specific [place] 1.024 Urine Protein 1+ A Urine Glucose (UA) 1+ A Urine Ketones Trace Urine Blood 2+ A Urine Nitrite Negative Urine Bilirubin Negative Urine Urobilinogen (Auto) Negative Ur Leukocyte Esterase Positive Urine RBC 9 H Urine WBC 7 H Ur Squamous Epith Cells 1 Amorphous Crystals Present A Urine Bacteria 1+ A Stool Occult Blood Stl C. diff Tox B Gene 03/17/25 03/17/25 03/17/25 03:00 03:15 03:34 WBC 47.6 H* RBC 2.86 L Hgb 8.7 L Hct 26.4 L MCV 92 MCH 30.4 MCHC 33.0 RDW Std Deviation 56.1 H Plt Count 347 D Neut % (Auto) 85 H Lymph % (Auto) 4 L Ritchie % (Auto) 8 Eos % (Auto) 0 Baso % (Auto) 0 Neut # (Auto) 40.7 H Lymph # (Auto) 1.8 Ritchie # (Auto) 3.8 H Eos # (Auto) 0.0 Baso # (Auto) 0.2 Immature Gran # (Auto) 1.08 H Absolute Nucleated RBC 0.02 H Immature Gran % 2 H Nucleated RBC % 0 Smear Path Review Sent to Pathologist ESR PT INR APTT Sodium 136 Potassium 4.9 D Chloride 97 L Carbon Dioxide 28.6 Anion Gap 10 BUN 15 Creatinine 0.8 Estim Creat Clear Calc 56.5 L eGFR > 60 BUN/Creatinine Ratio 19 Glucose 152 H D Calculated Osmolality 275 Lactic Acid 3.9 H Calcium 9.0 Corrected Calcium 9.4 Phosphorus 3.7 Magnesium 2.0 Total Bilirubin 0.3 AST 24 ALT 9 L Alkaline Phosphatase 67 Troponin I C-Reactive Prot, Quant Total Protein 7.2 Albumin 3.5 D Globulin 3.7 H Albumin/Globulin Ratio 0.9 L Procalcitonin Ur Collection Type Urine Color Urine Clarity Urine pH Ur Specific [place] Urine Protein Urine Glucose (UA) Urine Ketones Urine Blood Urine Nitrite Urine Bilirubin Urine Urobilinogen (Auto) Ur Leukocyte Esterase Urine RBC Urine WBC Ur Squamous Epith Cells Amorphous Crystals Urine Bacteria Stool Occult Blood Positive A Stl C. diff Tox B Gene Cancelled 03/17/25 08:18 WBC RBC Hgb Hct MCV MCH MCHC RDW Std Deviation Plt Count 346 Neut % (Auto) Lymph % (Auto) Ritchie % (Auto) Eos % (Auto) Baso % (Auto) Neut # (Auto) Lymph # (Auto) Ritchie # (Auto) Eos # (Auto) Baso # (Auto) Immature Gran # (Auto) Absolute Nucleated RBC Immature Gran % Nucleated RBC % Smear Path Review ESR 33 H PT INR APTT Sodium Potassium Chloride Carbon Dioxide Anion Gap BUN Creatinine Estim Creat Clear Calc eGFR BUN/Creatinine Ratio Glucose Calculated Osmolality Lactic Acid 3.5 H Calcium Corrected Calcium Phosphorus Magnesium Total Bilirubin AST ALT Alkaline Phosphatase Troponin I C-Reactive Prot, Quant 21.2 H Total Protein Albumin Globulin Albumin/Globulin Ratio Procalcitonin Ur Collection Type Urine Color Urine Clarity Urine pH Ur Specific [place] Urine Protein Urine Glucose (UA) Urine Ketones Urine Blood Urine Nitrite Urine Bilirubin Urine Urobilinogen (Auto) Ur Leukocyte Esterase Urine RBC Urine WBC Ur Squamous Epith Cells Amorphous Crystals Urine Bacteria Stool Occult Blood Stl C. diff Tox B Gene Assessment & Plan A&P Narrative leudocytosis with mild pna described on cxr and chronic resp failure in a full code pt. hx of cdiff noted with suspected recurrence. if cdiff pos. ok to treat with dificid x 10d (had thata before though) or vanco with a taper 125 qid for 10d, then 125 tid for 7d, then 125 bid for 7d, then 125 daily for 7d. dificid has not been shown to be better than oral vanco with a taper then if we have it, kefir yogurt daily. it is a food though so may not be available. pancho if she stays at subacute facility here in case this is recurrent cdfiff. I can check in on wed pm at the earliest if cdiff neg. then role of abx unclear to me. daily wbc is popular and not diagnostic for anything pt is not in icu despite vent status. ua seems benign to me no sz noted. Time Spent With Patient Time: Total time spent is greater than 50% in coordination of care (as documented) at patient's floor/unit and/or counseling patient:
[2025-03-17 09:50] LABS: D-Dimer 1710 ng/mL (<600)
[2025-03-17 10:37] LABS: Fibrinogen 694 mg/dL (175-375); INR 1.1 (0.9-1.3); Prothrombin Time 11.9 Seconds (9.0-12.2)
--- NOTE | 2025-03-17 11:15 | ESCONSULT_ITS ---
RE: YOANDY SANDOVAL : 1955 DATE OF CONSULTATION: 03/17/2025 REFERRING PHYSICIAN: hospitalist team REASON FOR CONSULTATION: Leukocytosis, diabetes, respiratory failure, and history of C. diff, history of CA. HISTORY OF PRESENT ILLNESS: The patient is a 69-year-old on broad spectrum antibiotics for reasons that are unclear. She has cultures that are pending. She was just admitted from subacute. She was admitted earlier this morning. She has a history of seizures and other problems as noted. I saw her formally in August and again in October. I am seeing her now again 4 months later as a precaution. In October, we treated her for C. diff because she had a recurrence. Now, she has more diarrhea according to records, but C. diff test is pending. They have her in isolation anyway as a precaution. She has a seizure disorder as noted, for which she is on blood thinner for and a sz med. Apparently, she has decubitus as well according to records. I do not have detailed data on that one. Best treatment for decubitus is going to be pressure avoidance, which is hard to do in her. Radiology describes her as having cystitis in the distal sacrum and coccyx, which may be mistyped as osteomyelitis. Also describes her having acute diverticulitis in the sigmoid colon according to imaging of the abdomen. The respiratory process seems uneventful at the moment, but antibiotics may be more for the abdomen. We have no cultures at this point, as she just was admitted a few hours ago. In fact, even the C. diff test is pending. ALLERGIES: no listed ANTIBIOTIC ALLERGIES. IMMUNIZATIONS: Not available. FAMILY HISTORY: Not contributory. SOCIAL HISTORY: She lives at her subacute apparently. She has seen Dr. Silverio in pulmonary but he is largely deferred to her admission team. She is frequently admitted as a full code as noted period. PHYSICAL EXAMINATION: Exam is benign. Patient is nonresponsive and noninteractive. There is no change in the exam from before or prior. ASSESSMENT: 1. Respiratory failure. 2. Diarrhea. 3. Leukocytosis developing after admission. RECOMMENDATIONS: The daily CBCs are very popular but often are not diagnostic. I have no problem with her medications. Please note that her medications may also cause diarrhea. Along with the tube feeds may also cause diarrhea. So if her C. diff test is positive, it may, she may just be colonized. It is hard to know, but we can go ahead and treat her with oral vancomycin and IV Zosyn. For now, we will give her the Zosyn. I may change it to something else down the road. But I will try to see her again Monday, depends on what her culture shows. DT: 10:40:09 TT: 11:13:00 Ref: [id number] - TID: [id number] MTDD
[2025-03-17] MEDS: VANCOMYCIN/WATER 1250 MG IVPB 250 ML 120 MG IV (11:21)
[2025-03-17 12:18] LABS: Hepatitis C Antibody Non Reactive (Non React)
[2025-03-17 12:27] LABS: Misc Send Out* See Sep Rpt
[2025-03-17] MEDS: ACETAMINOPHEN 325 MG TABLET 650 MG NG ×2 (12:27→22:34)
[2025-03-17 12:58] LABS: Lactate (Lactic Acid) 3.0 mMol/L (0.4-2.0)
--- NOTE | 2025-03-17 13:52 | XR_ITS ---
EXAMINATION: Ultrasound soft tissue extremity right hip TECHNIQUE: Grayscale sonographic images soft tissue extremity right hip INDICATIONS: Right thigh discoloration and bruising today. FINDINGS: Edema in the soft tissue but no hematoma or other soft tissue mass IMPRESSION: Edema in the soft tissue but no soft tissue hematoma or mass
--- NOTE | 2025-03-17 14:23 | XR_ITS ---
Examination: CT bilateral lower extremities, without contrast. 2-D sagittal reconstructions. 2-D coronal reconstructions. 3-D reconstructions. Date and time of exam: March 18, 2025, 0128 hours INDICATIONS: Bilateral leg redness swelling and pain erythema this week, clinical diagnosis necrotizing fasciitis CTDI: vol (mGy): 12.5 DLP: (mGycm): 1441 Technique: Multiple 1.25 mm axial sections of the bilateral lower extremities without intravenous contrast have been obtained. 2-D sagittal and coronal reconstructions have been obtained. 3-D reconstructions have been obtained. Low dose protocols were performed. One or more of the following dose reduction techniques were used; automated exposure control, adjustment of the mA and/or KV according to patient size, use of iterative reconstruction technique. Findings: Edema in the subcutaneous fatty tissue both lower extremities with skin thickening Negative for osteomyelitis No soft tissue abscess No necrotizing fasciitis No fractures Abnormal significant thickening of the urinary bladder wall Significant inflammation about diverticula in the sigmoid colon IMPRESSION: Cellulitis pattern in the lower extremities, negative for soft tissue abscess, negative for necrotizing fasciitis Marked abnormal thickening of the urinary bladder wall, differential would include cystitis, bladder carcinoma, follow-up suggested Acute sigmoid diverticulitis, no peridiverticular abscess on this noncontrast study
[2025-03-17 15:55] LABS: Reflex Lactate? Y
--- NOTE | 2025-03-17 16:11 | PC.SS ---
Follow up note: Pt is peg/trach/vent and from [facility]. SS received call from Trinity from [facility] who expresses conserns about pt spiking fevers every 6-8 weeks and white count going up. Trinity requested possible LTAC placement. SS contacted Inocencio from [facility] who states pt does not require an ICU stay due to being on vent.
[2025-03-17 16:29] LABS: Lactic Acid, 3 HR 2.0 mMol/L (0.4-2.0)
--- NOTE | 2025-03-17 16:42 | PD.RESPRO ---
Documentation for date of: 03/17/25 Subjective Subjective Interval history: Patient was seen and examined at bedside. No acute events took place overnight. Patient was admitted for evaluation of fever of 103F, with elevated qSOFA score suggestive of sepsis. Possible sources of infection include pneumonia, gastroenteritis, coccygeal pressure wound, possible osteomyelitis, erythematous rash over b/l thighs. Temperature normalized through the day, and so did other vitals. Patient was noted to have diffuse ecchymosis about the lateral right thigh, also a lesser one with a smaller area of involvement on the lateral aspect of the left thigh. Exam Vital Signs Temp Pulse Resp BP Pulse Ox O2 Del Method FiO2 99.8 F 82 18 129/68 99 Mechanical Ventilation 30 03/17/25 13:27 03/17/25 13:19 03/17/25 12:00 03/17/25 12:00 03/17/25 13:19 03/17/25 12:00 03/17/25 13:19 Narrative Exam General: Non-responsive, no acute distress. Trach and PEG in place, on mechanical ventilation. Skin: Warm, dry, intact. Head: Normocephalic, atraumatic. Eye: Normal conjunctiva, PERRL. Cardiovascular: Regular rate and rhythm, no murmur, +S1/S2. Respiratory: Lungs are clear to auscultation, respirations unlabored, no crackles, no wheezing. Gastrointestinal: Soft, nontender, nondistended. No guarding or rebound tenderness. Extremities: No edema, no cyanosis, no clubbing. 2+ radial pulse bilaterally, 2+ pedal pulse bilaterally. diffuse ecchymosis about the lateral right thigh, also a lesser one with a smaller area of involvement on the lateral aspect of the left thigh, warm to touch, and grimacing to palpation. Back: Diaper rash noted, slight pressure wound on coccyx without any drainage or pus. Objective Labs 03/18/25 05:40 03/18/25 05:40 Labs: Laboratory Results - last 24 hr 03/16/25 03/16/25 03/16/25 20:10 22:50 23:27 WBC 45.1 H* D RBC 2.95 L Hgb 9.1 L Hct 27.3 L MCV 93 MCH 30.8 MCHC 33.3 RDW Std Deviation 55.2 H Plt Count 402 D Neut % (Auto) 83 H Lymph % (Auto) 4 L [place] % (Auto) 10 Eos % (Auto) 0 Baso % (Auto) 0 Neut # (Auto) 37.7 H Lymph # (Auto) 1.8 [place] # (Auto) 4.4 H Eos # (Auto) 0.2 Baso # (Auto) 0.2 Immature Gran # (Auto) 0.90 H Absolute Nucleated RBC 0.03 H Immature Gran % 2 H Nucleated RBC % 0 Smear Path Review Sent to Pathologist ESR PT 11.5 INR 1.1 APTT 27.7 Fibrinogen D-Dimer Sodium 132 L Potassium 4.3 Chloride 92 L Carbon Dioxide 28.9 Anion Gap 11 BUN 14 Creatinine 0.7 Estim Creat Clear Calc 64.6 eGFR > 60 BUN/Creatinine Ratio [address] Glu mg/dL Hemoglobin A1c Calculated Osmolality 271 L Lactic Acid 4.3 H* 3.2 H Calcium 9.2 Corrected Calcium 9.2 Phosphorus Magnesium Total Bilirubin 0.3 AST 23 ALT 10 Alkaline Phosphatase 77 Troponin I < 0.020 C-Reactive Prot, Quant Total Protein 7.8 Albumin 4.0 Globulin 3.8 H Albumin/Globulin Ratio 1.1 L Procalcitonin 0.16 Ur Collection Type Catheter Urine Color Yellow Urine Clarity Clear Urine pH 7.0 Ur Specific [place] 1.024 Urine Protein 1+ A Urine Glucose (UA) 1+ A Urine Ketones Trace Urine Blood 2+ A Urine Nitrite Negative Urine Bilirubin Negative Urine Urobilinogen (Auto) Negative Ur Leukocyte Esterase Positive Urine RBC 9 H Urine WBC 7 H Ur Squamous Epith Cells 1 Amorphous Crystals Present A Urine Bacteria 1+ A Stool Occult Blood Stl C. diff Tox B Gene Hepatitis C Antibody 03/17/25 03/17/25 03/17/25 03:00 03:15 03:34 WBC 47.6 H* RBC 2.86 L Hgb 8.7 L Hct 26.4 L MCV 92 MCH 30.4 MCHC 33.0 RDW Std Deviation 56.1 H Plt Count 347 D Neut % (Auto) 85 H Lymph % (Auto) 4 L [place] % (Auto) 8 Eos % (Auto) 0 Baso % (Auto) 0 Neut # (Auto) 40.7 H Lymph # (Auto) 1.8 [place] # (Auto) 3.8 H Eos # (Auto) 0.0 Baso # (Auto) 0.2 Immature Gran # (Auto) 1.08 H Absolute Nucleated RBC 0.02 H Immature Gran % 2 H Nucleated RBC % 0 Smear Path Review Sent to Pathologist ESR PT INR APTT Fibrinogen D-Dimer Sodium 136 Potassium 4.9 D Chloride 97 L Carbon Dioxide 28.6 Anion Gap 10 BUN 15 Creatinine 0.8 Estim Creat Clear Calc 56.5 L eGFR > 60 BUN/Creatinine Ratio 19 Glucose [address] Glu mg/dL Hemoglobin A1c Calculated Osmolality 275 Lactic Acid 3.9 H Calcium 9.0 Corrected Calcium 9.4 Phosphorus 3.7 Magnesium 2.0 Total Bilirubin 0.3 AST 24 ALT 9 L Alkaline Phosphatase 67 Troponin I C-Reactive Prot, Quant Total Protein 7.2 Albumin 3.5 D Globulin 3.7 H Albumin/Globulin Ratio 0.9 L Procalcitonin Ur Collection Type Urine Color Urine Clarity Urine pH Ur Specific [place] Urine Protein Urine Glucose (UA) Urine Ketones Urine Blood Urine Nitrite Urine Bilirubin Urine Urobilinogen (Auto) Ur Leukocyte Esterase Urine RBC Urine WBC Ur Squamous Epith Cells Amorphous Crystals Urine Bacteria Stool Occult Blood Positive A Stl C. diff Tox B Gene Cancelled Hepatitis C Antibody 03/17/25 03/17/25 03/17/25 08:18 08:48 12:36 WBC RBC Hgb Hct MCV MCH MCHC RDW Std Deviation Plt Count 346 Neut % (Auto) Lymph % (Auto) [place] % (Auto) Eos % (Auto) Baso % (Auto) Neut # (Auto) Lymph # (Auto) [place] # (Auto) Eos # (Auto) Baso # (Auto) Immature Gran # (Auto) Absolute Nucleated RBC Immature Gran % Nucleated RBC % Smear Path Review ESR 33 H PT 11.9 INR 1.1 APTT Fibrinogen 694 H* D-Dimer 1710 H Sodium Potassium Chloride Carbon Dioxide Anion Gap BUN Creatinine Estim Creat Clear Calc eGFR BUN/Creatinine Ratio Glucose Estimated Ave Glu mg/dL Cancelled Hemoglobin A1c Cancelled Calculated Osmolality Lactic Acid 3.5 H 3.0 H Calcium Corrected Calcium Phosphorus Magnesium Total Bilirubin AST ALT Alkaline Phosphatase Troponin I C-Reactive Prot, Quant 21.2 H Total Protein Albumin Globulin Albumin/Globulin Ratio Procalcitonin Ur Collection Type Urine Color Urine Clarity Urine pH Ur Specific [place] Urine Protein Urine Glucose (UA) Urine Ketones Urine Blood Urine Nitrite Urine Bilirubin Urine Urobilinogen (Auto) Ur Leukocyte Esterase Urine RBC Urine WBC Ur Squamous Epith Cells Amorphous Crystals Urine Bacteria Stool Occult Blood Stl C. diff Tox B Gene Hepatitis C Antibody Non Reactive 03/17/25 16:23 WBC RBC Hgb Hct MCV MCH MCHC RDW Std Deviation Plt Count Neut % (Auto) Lymph % (Auto) [place] % (Auto) Eos % (Auto) Baso % (Auto) Neut # (Auto) Lymph # (Auto) [place] # (Auto) Eos # (Auto) Baso # (Auto) Immature Gran # (Auto) Absolute Nucleated RBC Immature Gran % Nucleated RBC % Smear Path Review ESR PT INR APTT Fibrinogen D-Dimer Sodium Potassium Chloride Carbon Dioxide Anion Gap BUN Creatinine Estim Creat Clear Calc eGFR BUN/Creatinine Ratio Glucose Estimated Ave Glu mg/dL Hemoglobin A1c Calculated Osmolality Lactic Acid 2.0 Calcium Corrected Calcium Phosphorus Magnesium Total Bilirubin AST ALT Alkaline Phosphatase Troponin I C-Reactive Prot, Quant Total Protein Albumin Globulin Albumin/Globulin Ratio Procalcitonin Ur Collection Type Urine Color Urine Clarity Urine pH Ur Specific [place] Urine Protein Urine Glucose (UA) Urine Ketones Urine Blood Urine Nitrite Urine Bilirubin Urine Urobilinogen (Auto) Ur Leukocyte Esterase Urine RBC Urine WBC Ur Squamous Epith Cells Amorphous Crystals Urine Bacteria Stool Occult Blood Stl C. diff Tox B Gene Hepatitis C Antibody Quality Measures Quality Measures VTE prophylaxis and sepsis Current suspected stage: ruled out Possible source: pulmonary and GI tract/intra-abdominal Blood cultures ordered: yes Antibiotic ordered: Yes Advance care planning discussed with:: sibling Assessment & Plan Assessment Current Active Medications: Generic Name Dose Route Start Last Admin Trade Name Freq PRN Reason Stop Dose Admin Acetaminophen 650 mg 03/17/25 00:23 03/17/25 12:27 Acetaminophen 325 Mg Tablet NG 04/16/25 00:22 650 mg Q6H PRN Administration Fever >101.5 or pain 1-3 Aspirin 81 mg 03/17/25 09:00 03/17/25 09:05 Aspirin Ec 81 Mg Tabec PO 04/16/25 08:59 81 mg QDAY JAYMIE Administration Atorvastatin Calcium 40 mg 03/17/25 21:00 Atorvastatin Calcium 20 Mg Tablet GT 04/16/25 20:59 HS JAYMIE Dextrose 25 ml 03/17/25 02:46 Dextrose 50%-Water Inj 50 Ml Syringe IV 04/16/25 02:45 Q15MIN PRN BG 50-70 responsive npo pt Dextrose 50 ml 03/17/25 02:46 Dextrose 50%-Water Inj 50 Ml Syringe IV 04/16/25 02:45 Q15MIN PRN BG <50 OR BG <70 & pt unresponsive Glucagon 1 mg 03/17/25 02:46 Glucagon Inj 1 Mg Vial IM Q15MIN PRN BG <70, and no IV access Guaifenesin/Dextromethorphan 1 each 03/17/25 02:46 Guaifenesin/Dm Tablet GT 04/16/25 02:45 Q6H PRN COUGH Heparin Sodium (Porcine) 5,000 unit 03/17/25 00:30 03/17/25 12:22 Heparin Sod Inj 5000 Unit/Ml Vial SC 03/31/25 00:29 Not Given Q12H JAYMIE Piperacillin/Tazobactam/Dextrose 3.375 gm in 50 mls @ 12.5 mls/hr 03/17/25 06:00 03/17/25 13:32 Zosyn IV 03/24/25 05:59 12.5 mls/hr Q8HR JAYMIE Administration Protocol Vancomycin HCl 250 mls @ 120 mls/hr 03/17/25 10:00 03/17/25 11:21 Vancomycin/Water 1250 Mg Ivpb IV 03/24/25 09:59 120 mls/hr Q24H JAYMIE Administration Protocol Clindamycin/Sodium Chloride 600 mg in 50 mls @ 100 mls/hr 03/17/25 16:34 Cleocin/Ns Ivpb IV 03/24/25 16:33 Q8HR JAYMIE Insulin Human Lispro 0 unit 03/17/25 06:00 03/17/25 11:52 Insulin Lispro (Admelog) 1 Unit/0.01 Ml Unit SC 04/16/25 05:59 Not Given Q6HR JAYMIE Protocol Levetiracetam 1,000 mg 03/17/25 09:00 03/17/25 09:05 Levetiracetam 250 Mg Tablet GT 04/16/25 08:59 1,000 mg BID JAYMIE Administration Lorazepam 2 mg 03/17/25 03:00 Lorazepam 2 Mg/Ml Vial IVP 03/22/25 02:59 Q8HR PRN Seizures Pharmacy Consult 1 each 03/17/25 10:35 Vancomycin Pharmacy To Dose 1 Each Each IV 04/16/25 10:34 QDAY PRN PROTOCOL Valproic Acid 500 mg 03/17/25 06:00 03/17/25 13:31 Valproic Acid Syrup 250 Mg/5 Ml c GT 04/16/25 05:59 500 mg TID JAYMIE Administration Vancomycin HCl 125 mg 03/17/25 09:00 03/17/25 09:05 Vancomycin Oral Solution 25 Mg/Ml GT 03/24/25 08:59 Not Given Q12HR JAYMIE Plan This patient is a 69-year-old female with a history of epilepsy, hypertension, hyperlipidemia, T2DM, anoxic brain injury s/p trach and PEG who presented to [facility] ED from [facility] subacute care on 03/16 for a fever of 103 ?F. The patient was admitted for management of sepsis. #Acute sigmoid diverticulitis #History of recurrent C. difficile #Urinary tract infection #Pneumonia? #Sepsis, possible Patient noted to have a recurrent history of C. difficile and has noted to have loose stools during previous subacute care notes. Unable to get a hold of subacute nurse for further information, however the patient was noted to have significantly elevated WBC similar to previous admissions for C. difficile infection. The patient was previously discharged to complete a course of fidaxomicin for the C. difficile infection. Other possible sources of infection include urinary tract infection given dirty UA and possibly pneumonia given chest x-ray suspicious for pneumonia. The patient is noted to have significantly low blood pressure in the ED requiring 2.5 L of fluid resuscitation and initiation of maintenance fluids to maintain her blood pressure. Endorgan damage noted with elevated lactic acid with lack of hypoxemia as the patient has been maintaining oxygen saturations in the high 90s. LA improved to 2.0. End organ damage also noted from new-onset coagulopathy D-dimer 1710, fibrinogen 694, with possible ischemic organ injury. Diagnostic: qSOFA score 2-3, 3-14 fold increase in in-hospital mortality rate WBC 45.1 on admission Lactic acid 4.3 on admission, trended down to 2.0 (03/17) Chest x-ray on 03/16 shows mild diffuse pneumonia in both lungs CT abdomen/pelvis on 03/16 preliminary read does show acute sigmoid diverticulitis without perforation or abscess, sacral decubitus ulceration, cholelithiasis, bibasilar pulmonary atelectasis/infiltrate, hepatomegaly, and possible cystitis. Urinalysis on 03/16 shows 1+ protein, 1+ glucose, 2+ blood, positive leukocyte esterase, 9 RBC, 7 WBC, and 1+ urine bacteria Blood cultures collected on 03/16, pending Urine culture collected on 03/16, pending C. difficile PCR ordered, pending ESR 33, D-dimer 1710, fibrinogen 694, WBC 47.6 Treatment: Zosyn 3.375 g every 8 hours (03/16?) IV Vancomycin, pharmacy to dose daily (03/16?) -Clindamycin IV 600mg TID (03/17 - ) Oral vancomycin via G-tube 125 mg every 12 hours for C. difficile prophylaxis Contact precautions Patient is status post 2.5 L of IV fluids from ED, currently running 1 L of maintenance fluid at 120 cc/h # Ecchymosis over lateral thighs bilaterally, Rt worse than Lt Ddx: Necrotizing fasciitis, cellulitis, bruising from trauma Diffuse ecchymosis about the lateral right thigh, also a lesser one with a smaller area of involvement on the lateral aspect of the left thigh, warm to touch, and grimacing to palpation. US showed Edema in the soft tissue but no soft tissue hematoma or mass -Clindamycin IV 600mg TID (03/17 - ) -CT bilat LE wo con ordered #Seizure disorder Patient is noted to have a seizure disorder and has been prescribed levetiracetam 1000 mg twice daily and valproic acid 500 mg 3 times daily at the subacute. Unclear what her seizures look like. Treatment: Resumed home levetiracetam 1000 mg twice daily and valproic acid 500 mg 3 times daily Seizure precautions ordered Lorazepam 2 mg IV push every 8 hours as needed for seizures #Cholelithiasis Patient noted to have cholelithiasis on CT abdomen/pelvis. Low suspicion for any acute cholecystitis or cholangitis given that the patient does not have any elevation in LFTs and abdomen examination is benign. Treatment: If patient shows signs of abdominal pain, consider abdominal ultrasound for further evaluation #Normocytic anemia, chronic On admission, patient noted to have a hemoglobin of 9.1 with and a MCV of 93. This appears to be a chronic issue for the patient as her hemoglobin has been lower in the past. Treatment: Patient to follow-up outpatient If hemoglobin is less than 7, will transfuse as per protocol #Anoxic brain injury #Status post tracheostomy #Status post PEG tube placement #PEG tube feeding Patient is noted to have a history of anoxic brain injury that resulted in the patient requiring trach tube and PEG tube placement. Patient receives nutrition via tube feeding. No apparent documentation on what the current tube feeding and rate is. Treatment: Resumed patient's home aspirin 81 mg daily Registered dietitian to evaluate for tube feeds #Insulin-dependent type 2 diabetes mellitus Patient noted to have a history of diabetes and requires insulin. Patient does take insulin glargine 8 units subcutaneous nightly at the subacute that she comes from. Treatment: Sliding scale insulin Blood glucose checks every 6 hours Registered dietitian to evaluate for tube feeds #History of hypertension #History of hyperlipidemia Patient noted to have a history of hypertension and hyperlipidemia. Given that the patient was having hypotension during admission secondary to her sepsis, we will hold off on antihypertensives for now. Treatment: Resumed home on atorvastatin 40 mg nightly #Hyponatremia, resolved Patient noted to have a sodium of 132 on admission. Patient does have a history of hyponatremia and has previously received salt tablets at the nursing facility for management of this condition. Treatment: Consider resuming salt tablets if hyponatremia worsens #Code Status No POLST form was provided on admission. Hospitalist team called the patient's sister who was noted as the patient's person to notify in the EMR, who wished for the patient to be full code, but if the patient were to have a CODE BLUE, the patient sister would like to be notified to change the patient's CODE STATUS to DNR. Treatment: Patient made full code, will call patient Sister for CODE STATUS changes as needed DVT Prophylaxis: Heparin GI Prophylaxis: N/A Bowel: N/A Diet: Pending dietitian tube feed recommendation [place]: Yes Lines: Peripheral IV, trach tube, PEG tube Antibiotics: Vancomycin and ceftriaxone; oral vancomycin Code Status: FULL Reason for Hospitalization: Sepsis Other Barriers to Discharge: Blood cultures This case was discussed with my attending physician, Dr. Patel, and senior resident, Dr Napier. Even though this this note was carefully revised there may still be minor errors in hog tender due to voice recognition software. Etta Manley, PGY I Senior Resident Attestation: The patient is a resident of subacute rehab, and had previous multiple episodes of C. difficile infection and presented with white count of 47, and fibrinogen and D-dimer were elevated at 694 and 1710, and given the concern that the patient had coagulopathy, including rash on the lateral aspect of bilateral thigh, sepsis was suspected. Even though Pro-Man was 0.16, CRP was elevated to 21.2 and ESR mildly elevated. Stool occult blood was positive, infectious disease specialist Dr Gates was consulted, who recommended continuing vancomycin and Zosyn, including oral vancomycin for C. difficile, and due to concern regarding necrotizing fasciitis of lower extremity, CT lower limb was ordered. We will consult surgery if there is any suspicion for necrotizing fasciitis on CT lower limb. As there was seizure-like activity this morning, we also consulted neurologist and ordered EEG. We will follow-up on culture results tomorrow. I discussed with and supervised the development intern physician involved in the care of this patient. I personally saw and examined the patient and discussed the assessment and plan with the entire medicine team, including my attending. I agree with the assessment and plan as documented above. Remington Napier MD PGY3 Internal Medicine Attending Provider Attestation/Addendum I have seen and examined the patient. I was physically present for the hu portions of the services provided including history, physical exam, diagnosis, treatment plans and orders. I agree with assessment and plan of care as documented by residents. Even though this this note was carefully revised there may still be minor errors in hog tender due to voice recognition software. Yu Patel MD
[2025-03-17] MEDS: CLINDAMYCIN/NS 600 MG IVPB 600 MG/50 ML BAG 100 MG IV ×2 (17:00→22:13)
[2025-03-17] MEDS: ATORVASTATIN CALCIUM 20 MG TABLET 40 MG GT (21:42)
[2025-03-18] VITALS (14 sets, daily range): BP systolic 96–138; BP diastolic 50–87; PULSE 76–114; RESP 18–34; TEMP 36–38.8; O2SAT 97–100
[2025-03-18] MEDS: HEPARIN SOD INJ 5000 UNIT/ML VIAL SC ×2 (00:47→11:42)
--- NOTE | 2025-03-18 02:48 | PRELIM_ITS ---
CT scan of both lower extremities without intravenous contrast (axial sections with sagittal and coronal reformats) March 18, 2025 0128 hours Clinical History: Worsening acute erythema concerning for Nec Fasc. Comparison: No prior study is available for comparison. Findings: Sigmoid diverticulosis with wall thickening and adjacent fat stranding. Calcified uterine fibroids. Subcutaneous fat stranding in the bilateral flanks. Prominent urinary bladder wall thickening. Pelvic floor prolapse. No emphysema is seen in the bilateral lower extremities. Prominent osteopenia. Possible chronic bone infarctions in the distal tibias and feet. No fluid collection. There is subcutaneous edema in the bilateral thighs and left leg. Impression: No evidence of abscess or necrotizing fasciitis in the bilateral lower extremities. Subcutaneous edema in the bilateral thighs and left leg represent vascular insufficiency or cellulitis. Acute sigmoid diverticulitis. Probable cystitis. Report Electronically Signed By: Abhilash Leigh 03/18/2025 2:47:40 AM [EST]
[2025-03-18] MEDS: CLINDAMYCIN/NS 600 MG IVPB 600 MG/50 ML BAG 100 MG IV (05:30)
[2025-03-18] MEDS: VALPROIC ACID SYRUP 250 MG/5 ML UDC 500 MG GT ×3 (05:30→21:37)
[2025-03-18] MEDS: PIPER/TAZO 3.375 GM PREMIX 3.375 GM/50 ML BAG IV ×3 (05:30→17:33)
[2025-03-18 06:12] LABS: Basophils # (Auto) 0.2 Thou/mm3 (0.0-0.2); Basophils % (Auto) 0 % (0-2.5); Eosinophils # (Auto) 0.0 Thou/mm3 (0.0-0.5); Eosinophils % (Auto) 0 % (0-10); Hematocrit 24.5 % (36.0-46.0); Immature Granulocytes Auto 1.33 Thou/mm3 (0.00-0.00); Lymphocytes # (Auto) 2.3 Thou/mm3 (1.0-4.8); Lymphocytes % (Auto) 6 % (10-50); Mean Corpuscular HGB Conc 32.7 g/dl (31.0-37.0); Mean Corpuscular Hemoglobin 30.8 pg (25.0-35.0); Mean Corpuscular Volume 94 fL (80-100); Monocytes # (Auto) 2.9 Thou/mm3 (0.0-0.8); Monocytes % (Auto) 7 % (0-12); Neutrophils # (Auto) 34.5 Thou/mm3 (1.8-7.7); Neutrophils % (Auto) 84 % (37-80); Nucleated Red Blood Cell # 0.02 Thou/mm3 (0.00-0.00); Nucleated Red Blood Cell % 0 /100 WBC (0); Platelet Count 329 Thou/mm3 (140-440); RDW Standard Deviation 59.7 fL (36.4-46.3); Red Blood Count 2.60 Miln/mm3 (4.00-5.20)
[2025-03-18 06:25] LABS: Hemoglobin 8.0 g/dL (12.0-16.0); White Blood Count 41.2 Thou/mm3 (3.6-11.0)
[2025-03-18 06:38] LABS: Alanine Aminotransferase 11 U/L (10-49); Albumin, Serum 3.5 gm/dL (3.4-4.8); Albumin/Globulin Ratio 1.1 (1.2-2.2); Alkaline Phosphatase 70 U/L (46-116); Anion Gap 10 (7-16); Aspartate Amino Transferase 27 U/L (0-34); BUN/Creatinine Ratio 21 Ratio (12-20); Bilirubin,Total 0.2 mg/dL (0.3-1.2); Blood Urea Nitrogen 17 mg/dL (9-23); Calcium 8.9 mg/dL (8.3-10.6); Calcium (Corrected) 9.3 mg/dL (8.5-10.1); Carbon Dioxide 29.3 mMol/L (20.0-31.0); Chloride 96 mMol/L (98-107); Creatinine (Component) 0.8 mg/dL (0.6-1.3); Estimated Creatinine Clearance 69.0 mL/min (>60); Globulin 3.3 gm/dL (2.3-3.5); Glucose 142 mg/dL (74-106); Magnesium 1.8 mg/dL (1.6-2.6); Osmolality,Calculated 273 (275-295); Phosphorous 4.0 mg/dL (2.4-5.1); Potassium 4.2 mMol/L (3.4-5.1); Sodium 135 mMol/L (136-145); Total Protein 6.8 gm/dL (5.7-8.2); eGFR > 60 See Note
--- NOTE | 2025-03-18 08:03 | ESCONSULT_ITS ---
Tele Neuro Consultation Consultation Date 03/18/25 Most Recent Vital Signs Last Vital Signs Temp 101.9 F H 03/18/25 04:00 Pulse 114 H 03/18/25 06:32 Resp 30 H 03/18/25 04:00 BP 123/76 03/18/25 04:00 Pulse Ox 98 03/18/25 06:32 O2 Del Method Trans-Tracheal Cannula 03/18/25 04:00 FiO2 30 03/18/25 06:32 Laboratory-Coagulation Panel PT 11.9 Seconds (9.0-12.2) 03/17/25 08:18 INR 1.1 (0.9-1.3) 03/17/25 08:18 APTT 27.7 Seconds (22.0-36.0) 03/16/25 20:10 Fibrinogen 694 mg/dL (175-375) H* 03/17/25 08:18 D-Dimer 1710 ng/mL (<600) H 03/17/25 08:18 Consultation Narrative [facility] TeleNeurology Consult Services Routine Consult New Patient Name:???Guerita Ennis Date of :???1955 Identification Number:??? Date of Service:???03/18/2025 08:02:00 Diagnosis?G40.89 - Other seizures Impression Patient is a 69 yo female with pmhx epilepsy, HTN, DMII, anoxic brain injury s/p trach and peg who presented from subacute care with worsening mentation, fever of 103. Rapid response was called on 03/17 am as patient was noted to having shaking movement of b/l upper ext; however was able to follow commands during the episode. She received ativan 2 mg and the symptoms resolved. Etiology unclear. Possible non-epileptic event vs breakthrough seizure in the setting of underlying infection, missed AED dosing. Further work-up and eval per primary team, ID. Infectious and metabolic correction per primary team. EEG pending. Continue home Keppra, Depakote at current dosing. Seizure precautions for now. Ativan prn for seizure > 3 min. Consider palliative care/goals of care discussion with family is able. Other management and dispo per primary team. Neurology will follow. Call with any questions or concerns. Our recommendations are outlined below Diagnostic Studies : Routine EEG Laboratory Studies : Comprehensive Metabolic profileCBC with diffLactic acidESR/CRPmagnesium, phosphorus Nursing Recommendations : Maintain Euglycemia and EuthermiaNeuro checks q1-2 hrs during ICU stay if crit icalOnce stable neuro checks q 4hrs Seizure precautions : Seizure precautions including no driving for state mandated time frame were discussed with patient with clear understanding DVT Prophylaxis : Choice of Primary Team Disposition : Neurology will follow Chief Complaint: AMS History of Present Illness: Patient is a 69 year old Female. Patient is a 69 yo female with pmhx epilepsy, HTN, DMII, anoxic brain injury s/p trach and peg who presented from subacute care with worsening mentation, fever of 103. Rapid response was called on 12 am as patient was noted to having shaking movement of b/l upper ext; however was able to follow commands. She received ativan 2 mg and the symptoms resolved. She is on Keppra 1000 mg BID and Valproic acid 500 mg TID at home. At baseline opens her eyes but is not verbal or follows commands. ? Past Medical History: ?Hypertension ?Diabetes Mellitus ?Hyperlipidemia Medications: Anticoagulant use:??Unknown Antiplatelet use:?Yes?ASA Reviewed EMR for current medications Allergies:? Reviewed Social History: Smoking: No Alcohol Use: No Drug Use: No Family History: There is no family history of premature cerebrovascular disease pertinent to this consultation ROS : 14 Points Review of Systems was performed and was negative except mentioned in HPI. Past Surgical History: There Is No Surgical History Contributory To Today?s Visit Examination Coma Exam: Ventilator:??Yes Sedated:?No Paralyzed:?No Breathes spontaneously above ventilator rate:?Yes Trach and peg Responds to Voice:??No Responds to Sternal rub:??Yes Postures:?No Tries to open eyes Withdraws limb from painful stimulation:??No Spontaneous limb movement:? Right arm:?No Left arm:?No Right leg:?No Left leg:?No Pupils:??Equal and Reactive ? This consult was conducted in real time using interactive audio and video technology. Patient was informed of the technology being used for this visit and agreed to proceed. Patient located in hospital and provider located at home/office setting. Telehealth Neurology consultation was provided. I spent minutes providing telehealth care. This includes time spent for face to face visit via telemedicine, review of medical records, imaging studies and discussion of findings with providers, the patient and/or family. Dr Mihir Gentile [facility] For Inpatient follow-up with [facility] physician please call [facility] at . As we are not an outpatient service for any post hospital discharge needs please contact the hospital for assistance. If you have any questions for the [facility] physicians or need to reconsult for clinical or diagnostic changes please contact us via [facility] at Signature :Anel Gentile
[2025-03-18] MEDS: VANCOMYCIN 25 MG/ML 125 MG GT ×4 (08:51→21:38)
[2025-03-18] MEDS: MAGNESIUM OXIDE 400 MG TABLET PO (08:51)
[2025-03-18] MEDS: ASPIRIN EC 81 MG TABEC PO (08:51)
[2025-03-18 09:04] LABS: Clostridium Difficile PCR Positive (Negative)
[2025-03-18] MEDS: VANCOMYCIN/WATER 1250 MG IVPB 250 ML 120 MG IV (10:10)
[2025-03-18] MEDS: SODIUM CHLORIDE 0.9% 1000 ML 1,000 ML 999 ML IV (10:31)
--- NOTE | 2025-03-18 11:04 | ESPR_ITS ---
<Statement entered by Surinder Mcmanus MD - 03/18/25 17:05> I saw and examined patient personally and supervised PGY 1 resident, Dr. Rodriguez with formulating a management plan. I agree with the documentation with the exceptions as listed below. Patient here again for concerns of diarrhea. She has had multiple courses of fidaxomicin and vancomycin treatment in the past for C. difficile infections. On her last admission infectious disease, Dr Gates recommended to not recheck C. difficile PCR as she is colonized. On this admission C. difficile was checked by the ED provider. WBC down trended to 41.2 from 47 on 03/17. Blood cultures negative x 24 hours preliminary, urine culture pending. Currently on vancomycin 125 p.o. 4 times daily for 10 days taper as per ID recommendations. [Followed by vancomycin 125 p.o. 3 times daily for 7 days, then 125 twice daily for 7 days, then 125 daily for 7 days.] Also on vancomycin and Zosyn for lower extremity cellulitis. Clindamycin was discontinued due to CT scan ruling out necrotizing fasciitis. Plan of care discussed with Attending Dr. Amanda Mcmanus MD PGY 2 Disclaimer: This note was dictated by speech recognition. Minor errors in cell tuber machine may be present due to voice recognition software. Documentation for date of: 03/18/25 Subjective Subjective Interval history: Patient was seen and examined at bedside. No acute events took place overnight. Had 4 bowel movements since yesterday. C. difficile positive. Stopped clindamycin as no longer concern for necrotizing fasciitis. Continuing with Zosyn IV vancomycin, and oral vancomycin. WBC improved slightly to 41.2, hemoglobin stable at 8.0. Blood pressure soft received 1 L bolus followed by 1 L maintenance. Exam Vital Signs Temp Pulse Resp BP Pulse Ox O2 Del Method FiO2 97.1 F 101 H 30 H 96/55 L 99 Trans-Tracheal Cannula 30 03/18/25 08:00 03/18/25 08:00 03/18/25 08:00 03/18/25 08:00 03/18/25 08:00 03/18/25 08:00 03/18/25 08:00 Narrative Exam General: Non-responsive, no acute distress. Trach and PEG in place, on mechanical ventilation. Skin: Warm, dry, intact. Head: Normocephalic, atraumatic. Eye: Normal conjunctiva, PERRL. Cardiovascular: Regular rate and rhythm, no murmur, +S1/S2. Respiratory: Lungs are clear to auscultation, respirations unlabored, no crackles, no wheezing. Gastrointestinal: Soft, nontender, nondistended. No guarding or rebound tenderness. Extremities: No edema, no cyanosis, no clubbing. 2+ radial pulse bilaterally, 2+ pedal pulse bilaterally. diffuse ecchymosis about the lateral right thigh, also a lesser one with a smaller area of involvement on the lateral aspect of the left thigh, warm to touch, and grimacing to palpation. Back: Diaper rash noted, slight pressure wound on coccyx without any drainage or pus. Objective Labs 03/19/25 04:56 03/19/25 04:56 Labs: Laboratory Results - last 24 hr 03/17/25 03/17/25 03/17/25 08:18 08:48 12:36 WBC RBC Hgb Hct MCV MCH MCHC RDW Std Deviation Plt Count Neut % (Auto) Lymph % (Auto) [place] % (Auto) Eos % (Auto) Baso % (Auto) Neut # (Auto) Lymph # (Auto) [place] # (Auto) Eos # (Auto) Baso # (Auto) Immature Gran # (Auto) Absolute Nucleated RBC Immature Gran % Nucleated RBC % Smear Path Review Sodium Potassium Chloride Carbon Dioxide Anion Gap BUN Creatinine Estim Creat Clear Calc eGFR BUN/Creatinine Ratio Glucose Estimated Ave Glu mg/dL Cancelled Hemoglobin A1c Cancelled Calculated Osmolality Lactic Acid 3.0 H Calcium Corrected Calcium Phosphorus Magnesium Total Bilirubin AST ALT Alkaline Phosphatase Total Protein Albumin Globulin Albumin/Globulin Ratio Stl C. diff Tox B Gene Hepatitis C Antibody Non Reactive 03/17/25 03/17/25 03/18/25 16:23 22:00 05:40 WBC 41.2 H* D RBC 2.60 L Hgb 8.0 L Hct 24.5 L MCV 94 MCH 30.8 MCHC 32.7 RDW Std Deviation 59.7 H Plt Count 329 Neut % (Auto) 84 H Lymph % (Auto) 6 L [place] % (Auto) 7 Eos % (Auto) 0 Baso % (Auto) 0 Neut # (Auto) 34.5 H Lymph # (Auto) 2.3 [place] # (Auto) 2.9 H Eos # (Auto) 0.0 Baso # (Auto) 0.2 Immature Gran # (Auto) 1.33 H Absolute Nucleated RBC 0.02 H Immature Gran % 3 H Nucleated RBC % 0 Smear Path Review Cancelled Sodium 135 L Potassium 4.2 D Chloride 96 L Carbon Dioxide 29.3 Anion Gap 10 BUN 17 Creatinine 0.8 Estim Creat Clear Calc 69.0 eGFR > 60 BUN/Creatinine Ratio 21 H Glucose [address] Glu mg/dL Hemoglobin A1c Calculated Osmolality 273 L Lactic Acid 2.0 Calcium 8.9 Corrected Calcium 9.3 Phosphorus 4.0 Magnesium 1.8 Total Bilirubin 0.2 L AST 27 ALT 11 Alkaline Phosphatase 70 Total Protein 6.8 Albumin 3.5 Globulin 3.3 Albumin/Globulin Ratio 1.1 L Stl C. diff Tox B Gene Positive A Hepatitis C Antibody Quality Measures Quality Measures VTE prophylaxis and sepsis Current suspected stage: sepsis (Possible) Possible source: pulmonary and GI tract/intra-abdominal Blood cultures ordered: yes Antibiotic ordered: Yes Advance care planning discussed with:: patient Assessment & Plan Assessment Current Active Medications: Generic Name Dose Route Start Last Admin Trade Name Freq PRN Reason Stop Dose Admin Acetaminophen 650 mg 03/17/25 00:23 03/17/25 22:34 Acetaminophen 325 Mg Tablet NG 04/16/25 00:22 650 mg Q6H PRN Administration Fever >101.5 or pain 1-3 Aspirin 81 mg 03/17/25 09:00 03/18/25 08:51 Aspirin Ec 81 Mg Tabec PO 04/16/25 08:59 81 mg QDAY JAYMIE Administration Atorvastatin Calcium 40 mg 03/17/25 21:00 03/17/25 21:42 Atorvastatin Calcium 20 Mg Tablet GT 04/16/25 20:59 40 mg HS JAYMIE Administration Dextrose 25 ml 03/17/25 02:46 Dextrose 50%-Water Inj 50 Ml Syringe IV 04/16/25 02:45 Q15MIN PRN BG 50-70 responsive npo pt Dextrose 50 ml 03/17/25 02:46 Dextrose 50%-Water Inj 50 Ml Syringe IV 04/16/25 02:45 Q15MIN PRN BG <50 OR BG <70 & pt unresponsive Glucagon 1 mg 03/17/25 02:46 Glucagon Inj 1 Mg Vial IM Q15MIN PRN BG <70, and no IV access Guaifenesin/Dextromethorphan 1 each 03/17/25 02:46 Guaifenesin/Dm Tablet GT 04/16/25 02:45 Q6H PRN COUGH Heparin Sodium (Porcine) 5,000 unit 03/17/25 00:30 03/18/25 00:47 Heparin Sod Inj 5000 Unit/Ml Vial SC 03/31/25 00:29 5,000 unit Q12H JAYMIE Administration Vancomycin HCl 250 mls @ 120 mls/hr 03/17/25 10:00 03/18/25 10:10 Vancomycin/Water 1250 Mg Ivpb IV 03/24/25 09:59 120 mls/hr Q24H JAYMIE Administration Protocol Piperacillin/Tazobactam/Dextrose 3.375 gm in 50 mls @ 100 mls/hr 03/18/25 12:00 Zosyn IV 03/25/25 11:59 Q6HR JAYMIE Protocol Sodium Chloride 1,000 mls @ 999 mls/hr 03/18/25 10:18 03/18/25 10:31 Ns IV 03/18/25 11:18 999 mls/hr .Q1H1M ONE Administration Insulin Human Lispro 0 unit 03/17/25 06:00 03/18/25 06:12 Insulin Lispro (Admelog) 1 Unit/0.01 Ml Unit SC 04/16/25 05:59 Not Given Q6HR JAYMIE Protocol Levetiracetam 1,000 mg 03/17/25 09:00 03/18/25 08:51 Levetiracetam 250 Mg Tablet GT 04/16/25 08:59 1,000 mg BID JAYMIE Administration Lorazepam 2 mg 03/17/25 03:00 Lorazepam 2 Mg/Ml Vial IVP 03/22/25 02:59 Q8HR PRN Seizures Pharmacy Consult 1 each 03/17/25 10:35 Vancomycin Pharmacy To Dose 1 Each Each IV 04/16/25 10:34 QDAY PRN PROTOCOL Valproic Acid 500 mg 03/17/25 06:00 03/18/25 05:30 Valproic Acid Syrup 250 Mg/5 Ml Udc GT 04/16/25 05:59 500 mg TID JAYMIE Administration Vancomycin HCl 125 mg 03/18/25 12:00 Vancomycin Oral Solution 25 Mg/Ml GT 03/25/25 11:59 ACHS JAYMIE Plan 69-year-old female with a history of epilepsy, hypertension, hyperlipidemia, T2DM, anoxic brain injury s/p trach and PEG who presented to [facility] ED from [facility] subacute care on 03/16 for a fever of 103 ?F. The patient was admitted for management of sepsis. #Acute sigmoid diverticulitis #History of recurrent C. difficile #Urinary tract infection #Pneumonia? #Sepsis, possible Patient noted to have a recurrent history of C. difficile and has noted to have loose stools during previous subacute care notes. Unable to get a hold of subacute nurse for further information, however the patient was noted to have significantly elevated WBC similar to previous admissions for C. difficile infection. The patient was previously discharged to complete a course of fidaxomicin for the C. difficile infection. Other possible sources of infection include urinary tract infection given dirty UA and possibly pneumonia given chest x-ray suspicious for pneumonia. The patient is noted to have significantly low blood pressure in the ED requiring 2.5 L of fluid resuscitation and initiation of maintenance fluids to maintain her blood pressure. Endorgan damage noted with elevated lactic acid with lack of hypoxemia as the patient has been maintaining oxygen saturations in the high 90s. LA improved to 2.0. End organ damage also noted from new-onset coagulopathy D-dimer 1710, fibrinogen 694, with possible ischemic organ injury. Diagnostic: qSOFA score 2-3, 3-14 fold increase in in-hospital mortality rate WBC 45.1 on admission Lactic acid 4.3 on admission, trended down to 2.0 (03/17) Chest x-ray on 03/16 shows mild diffuse pneumonia in both lungs CT abdomen/pelvis on 03/16 preliminary read does show acute sigmoid diverticulitis without perforation or abscess, sacral decubitus ulceration, cholelithiasis, bibasilar pulmonary atelectasis/infiltrate, hepatomegaly, and possible cystitis. Urinalysis on 03/16 shows 1+ protein, 1+ glucose, 2+ blood, positive leukocyte esterase, 9 RBC, 7 WBC, and 1+ urine bacteria Blood cultures collected on 03/16, pending Urine culture collected on 03/16, pending C. difficile PCR ordered, pending ESR 33, D-dimer 1710, fibrinogen 694, WBC 47.6 Plan Zosyn 3.375 g every 8 hours (03/16?) IV Vancomycin, pharmacy to dose daily (03/16?) Oral vancomycin via G-tube 125 mg ACHS for C. difficile treatment Contact precautions # Ecchymosis over lateral thighs bilaterally, Rt worse than Lt Ddx: Necrotizing fasciitis, cellulitis, bruising from trauma Diffuse ecchymosis about the lateral right thigh, also a lesser one with a smaller area of involvement on the lateral aspect of the left thigh, warm to touch, and grimacing to palpation. US showed Edema in the soft tissue but no soft tissue hematoma or mass Plan ? Continue to monitor daily #Seizure disorder Patient is noted to have a seizure disorder and has been prescribed levetiracetam 1000 mg twice daily and valproic acid 500 mg 3 times daily at the subacute. Unclear what her seizures look like. Treatment: Resumed home levetiracetam 1000 mg twice daily and valproic acid 500 mg 3 times daily Seizure precautions ordered Lorazepam 2 mg IV push every 8 hours as needed for seizures #Cholelithiasis Patient noted to have cholelithiasis on CT abdomen/pelvis. Low suspicion for any acute cholecystitis or cholangitis given that the patient does not have any elevation in LFTs and abdomen examination is benign. Treatment: If patient shows signs of abdominal pain, consider abdominal ultrasound for further evaluation #Normocytic anemia, chronic On admission, patient noted to have a hemoglobin of 9.1 with and a MCV of 93. This appears to be a chronic issue for the patient as her hemoglobin has been lower in the past. Treatment: Patient to follow-up outpatient If hemoglobin is less than 7, will transfuse as per protocol #Anoxic brain injury #Status post tracheostomy #Status post PEG tube placement #PEG tube feeding Patient is noted to have a history of anoxic brain injury that resulted in the patient requiring trach tube and PEG tube placement. Patient receives nutrition via tube feeding. No apparent documentation on what the current tube feeding and rate is. Treatment: Resumed patient's home aspirin 81 mg daily Registered dietitian to evaluate for tube feeds #Insulin-dependent type 2 diabetes mellitus Patient noted to have a history of diabetes and requires insulin. Patient does take insulin glargine 8 units subcutaneous nightly at the subacute that she comes from. Treatment: Sliding scale insulin Blood glucose checks every 6 hours Registered dietitian to evaluate for tube feeds #History of hypertension #History of hyperlipidemia Patient noted to have a history of hypertension and hyperlipidemia. Given that the patient was having hypotension during admission secondary to her sepsis, we will hold off on antihypertensives for now. Treatment: Resumed home on atorvastatin 40 mg nightly #Hyponatremia, resolved Patient noted to have a sodium of 132 on admission. Patient does have a history of hyponatremia and has previously received salt tablets at the nursing facility for management of this condition. Treatment: Consider resuming salt tablets if hyponatremia worsens #Code Status No POLST form was provided on admission. Hospitalist team called the patient's sister who was noted as the patient's person to notify in the EMR, who wished for the patient to be full code, but if the patient were to have a CODE BLUE, the patient sister would like to be notified to change the patient's CODE STATUS to DNR. Treatment: Patient made full code, will call patient Sister for CODE STATUS changes as needed DVT Prophylaxis: Heparin GI Prophylaxis: N/A Bowel: N/A Diet: Pending dietitian tube feed recommendation [place]: Yes Lines: Peripheral IV, trach tube, PEG tube Antibiotics: Vancomycin and ceftriaxone; oral vancomycin Code Status: FULL Reason for Hospitalization: Sepsis Other Barriers to Discharge: Blood cultures Case discussed with my attending Dr. Patel, and senior resident, Dr. Yonathan Rodriguez MD PGY-1 Attending Provider Attestation/Addendum I have seen and examined the patient. I was physically present for the hu portions of the services provided including history, physical exam, diagnosis, treatment plans and orders. I agree with assessment and plan of care as documented by residents. Even though this this note was carefully revised there may still be minor errors in cell tuber machine due to voice recognition software. Yu Patel MD
[2025-03-18] MEDS: SODIUM CHLORIDE 0.9% 1000 ML 1,000 ML 80 ML IV (12:00)
[2025-03-18] MEDS: ACETAMINOPHEN 325 MG TABLET 650 MG NG (17:15)
[2025-03-18] MEDS: ATORVASTATIN CALCIUM 20 MG TABLET 40 MG GT (21:37)
[2025-03-18] MEDS: BALSAM PERU/CASTOR OIL (Venelex) 60 GM TUBE TOP (21:37)
[2025-03-19] VITALS (12 sets, daily range): BP systolic 108–142; BP diastolic 57–86; PULSE 76–110; RESP 18–35; TEMP 35.9–36.6; O2SAT 97–100; BMI 31.9
[2025-03-19] MEDS: PIPER/TAZO 3.375 GM PREMIX 3.375 GM/50 ML BAG IV ×5 (00:54→23:39)
[2025-03-19] MEDS: HEPARIN SOD INJ 5000 UNIT/ML VIAL SC ×3 (00:55→23:39)
[2025-03-19 06:01] LABS: Basophils # (Auto) 0.1 Thou/mm3 (0.0-0.2); Basophils % (Auto) 0 % (0-2.5); Eosinophils # (Auto) 0.1 Thou/mm3 (0.0-0.5); Eosinophils % (Auto) 0 % (0-10); Hematocrit 22.1 % (36.0-46.0); Immature Granulocytes Auto 0.55 Thou/mm3 (0.00-0.00); Lymphocytes # (Auto) 2.2 Thou/mm3 (1.0-4.8); Lymphocytes % (Auto) 10 % (10-50); Mean Corpuscular HGB Conc 32.1 g/dl (31.0-37.0); Mean Corpuscular Hemoglobin 30.9 pg (25.0-35.0); Mean Corpuscular Volume 96 fL (80-100); Monocytes # (Auto) 2.0 Thou/mm3 (0.0-0.8); Monocytes % (Auto) 9 % (0-12); Neutrophils # (Auto) 16.7 Thou/mm3 (1.8-7.7); Neutrophils % (Auto) 78 % (37-80); Nucleated Red Blood Cell # 0.04 Thou/mm3 (0.00-0.00); Nucleated Red Blood Cell % 0 /100 WBC (0); Platelet Count 315 Thou/mm3 (140-440); RDW Standard Deviation 60.7 fL (36.4-46.3); Red Blood Count 2.30 Miln/mm3 (4.00-5.20); White Blood Count 21.6 Thou/mm3 (3.6-11.0)
[2025-03-19 06:10] LABS: Hemoglobin 7.1 g/dL (12.0-16.0)
[2025-03-19 06:19] LABS: Alanine Aminotransferase 16 U/L (10-49); Albumin, Serum 3.2 gm/dL (3.4-4.8); Albumin/Globulin Ratio 1.0 (1.2-2.2); Alkaline Phosphatase 77 U/L (46-116); Anion Gap 11 (7-16); Aspartate Amino Transferase 41 U/L (0-34); BUN/Creatinine Ratio 20 Ratio (12-20); Bilirubin,Total < 0.2 mg/dL (0.3-1.2); Blood Urea Nitrogen 14 mg/dL (9-23); Calcium 8.6 mg/dL (8.3-10.6); Calcium (Corrected) 9.2 mg/dL (8.5-10.1); Carbon Dioxide 27.2 mMol/L (20.0-31.0); Chloride 98 mMol/L (98-107); Creatinine (Component) 0.7 mg/dL (0.6-1.3); Estimated Creatinine Clearance 78.8 mL/min (>60); Globulin 3.2 gm/dL (2.3-3.5); Glucose 130 mg/dL (74-106); Magnesium 2.0 mg/dL (1.6-2.6); Osmolality,Calculated 274 (275-295); Phosphorous 3.2 mg/dL (2.4-5.1); Potassium 3.7 mMol/L (3.4-5.1); Sodium 136 mMol/L (136-145); Total Protein 6.4 gm/dL (5.7-8.2); eGFR > 60 See Note
[2025-03-19] MEDS: VALPROIC ACID SYRUP 250 MG/5 ML UDC 500 MG GT ×3 (06:32→21:09)
[2025-03-19 09:34] LABS: Vancomycin,Trough 9.8 mcg/mL (5.0-10.0)
--- NOTE | 2025-03-19 10:02 | PC.SS ---
SS follow up note: Patient is pending final urine cultures. Patient will discharge back to Subacute when medically cleared.
[2025-03-19] MEDS: ASPIRIN EC 81 MG TABEC PO (10:16)
[2025-03-19] MEDS: BALSAM PERU/CASTOR OIL (Venelex) 60 GM TUBE TOP ×2 (10:24→21:11)
[2025-03-19] MEDS: VANCOMYCIN 25 MG/ML 125 MG GT ×3 (10:24→21:09)
[2025-03-19] MEDS: Vancomycin Inj 750 MG in SODIUM CHLORIDE 0.9% 250 ML 250 ML 200 MG IV (10:41)
--- NOTE | 2025-03-19 11:04 | ESPR_ITS ---
Tele Neuro Progress Note Progress Note Date 03/19/25 Most Recent Vital Signs Last Vital Signs Temp 96.9 F 03/19/25 08:00 Pulse 96 03/19/25 08:00 Resp 21 H 03/19/25 08:00 BP 109/67 03/19/25 08:00 Pulse Ox 99 03/19/25 08:00 O2 Del Method Trans-Tracheal Cannula 03/19/25 08:00 FiO2 30 03/19/25 08:00 Laboratory-Coagulation Panel PT 11.9 Seconds (9.0-12.2) 03/17/25 08:18 INR 1.1 (0.9-1.3) 03/17/25 08:18 APTT 27.7 Seconds (22.0-36.0) 03/16/25 20:10 Fibrinogen 694 mg/dL (175-375) H* 03/17/25 08:18 D-Dimer 1710 ng/mL (<600) H 03/17/25 08:18 Progress Note Narrative [facility] TeleNeurology Consult Services Routine Consult Follow-Up Patient Name:???Guerita Ennis Date of :???1955 Identification Number:??? Date of Service:???03/19/2025 11:02:57 Diagnosis?G40.89 - Other seizures Impression Patient is a 69 yo female with pmhx epilepsy, HTN, DMII, anoxic brain injury s/p trach and peg who presented from subacute care with worsening mentation, fever of 103. Rapid response was called on 03/17 am as patient was noted to having shaking movement of b/l upper ext; however was able to follow commands during the episode. She received ativan 2 mg and the symptoms resolved. Etiology unclear. Possible non-epileptic event vs breakthrough seizure in the setting of underlying infection, missed AED dosing. Further work-up and eval per primary team, ID. Infectious and metabolic correction per primary team. EEG pending. Continue home Keppra, Depakote at current dosing. Seizure precautions for now. Ativan prn for seizure > 3 min. Consider palliative care/goals of care discussion with family is able. Other management and dispo per primary team. Neurology will follow. Call with any questions or concerns. Our recommendations are outlined below Laboratory Studies : Lipid panel * I orderedHemoglobin A1c Nursing Recommendations : IV Fluids, avoid dextrose containing fluids, Maintain euglycemiaNeuro checks q4 hrs x 24 hrs and then per shiftHead of bed 30 degreesContinue with Telemetry Consultations : Recommend Speech therapy if failed dysphagia screenPhysical therapy/Occupational therapy Subjective Patient seen this am. Waking up somewhat more. No new issues or complaints. No seizures. ? Examination Coma Exam: Ventilator:??Yes Sedated:?No Paralyzed:?No Breathes spontaneously above ventilator rate:?Yes Trach and peg Responds to Voice:??No Responds to Sternal rub:??Yes Postures:?No Tries to open eyes Withdraws limb from painful stimulation:??No Spontaneous limb movement:? Right arm:?No Left arm:?No Right leg:?No Left leg:?No Pupils:??Equal and Reactive ? This consult was conducted in real time using interactive audio and video technology. Patient was informed of the technology being used for this visit and agreed to proceed. Patient located in hospital and provider located at home/office setting. Telehealth Neurology consultation was provided. I spent minutes providing telehealth care. This includes time spent for face to face visit via telemedicine, review of medical records, imaging studies and discussion of findings with providers, the patient and/or family. Dr Mihir Gentile [facility] For Inpatient follow-up with [facility] physician please call [facility] at . As we are not an outpatient service for any post hospital discharge needs please contact the hospital for assistance. If you have any questions for the [facility] physicians or need to reconsult for clinical or diagnostic changes please contact us via [facility] at Signature :?Mihir Gentile
--- NOTE | 2025-03-19 12:28 | PD.IDPROG ---
Subjective Subjective Interval history: still here at discretion of others. failed prior dificid rx. daily labs are very popular from primary team. note that oral mg tends to cause diarrhea and pcr is overly pos for cdiff. so most do not use it as it may overcall dx. Exam Vital Signs Temp Pulse Resp BP Pulse Ox O2 Del Method FiO2 96.9 F 96 21 H 109/67 99 Trans-Tracheal Cannula 30 03/19/25 08:00 03/19/25 08:00 03/19/25 08:00 03/19/25 08:00 03/19/25 08:00 03/19/25 08:00 03/19/25 08:00 Narrative Exam awake but not interactive. decision maker unclear. no discussion of goals of care noted Objective - Internal Medicine Labs 03/19/25 04:56 03/19/25 04:56 Labs: Laboratory Results - last 24 hr 03/19/25 03/19/25 04:56 08:48 WBC 21.6 H D RBC 2.30 L Hgb 7.1 L Hct 22.1 L MCV 96 MCH 30.9 MCHC 32.1 RDW Std Deviation 60.7 H Plt Count 315 Neut % (Auto) 78 Lymph % (Auto) 10 [place] % (Auto) 9 Eos % (Auto) 0 Baso % (Auto) 0 Neut # (Auto) 16.7 H Lymph # (Auto) 2.2 [place] # (Auto) 2.0 H Eos # (Auto) 0.1 Baso # (Auto) 0.1 Immature Gran # (Auto) 0.55 H Absolute Nucleated RBC 0.04 H Immature Gran % 3 H Nucleated RBC % 0 Sodium 136 Potassium 3.7 D Chloride 98 Carbon Dioxide 27.2 Anion Gap 11 BUN 14 Creatinine 0.7 Estim Creat Clear Calc 78.8 eGFR > 60 BUN/Creatinine Ratio 20 Glucose 130 H Calculated Osmolality 274 L Calcium 8.6 Corrected Calcium 9.2 Phosphorus 3.2 Magnesium 2.0 Total Bilirubin < 0.2 L AST 41 H ALT 16 Alkaline Phosphatase 77 Total Protein 6.4 Albumin 3.2 L Globulin 3.2 Albumin/Globulin Ratio 1.0 L Vancomycin Trough 9.8 Assessment & Plan A&P Narrative leudocytosis with mild pna described on cxr and chronic resp failure in a full code pt. hx of cdiff noted with suspected recurrence. if cdiff pos. ok to treat with vanco with a taper 125 qid for 10d, then 125 tid for 7d, then 125 bid for 7d, then 125 daily for 7d. dificid has not been shown to be better than oral vanco with a taper then, if we have it, kefir yogurt daily. it is a food though so may not be available. pancho if she stays at subacute facility here in case this is recurrent cdfiff. I can check in on wed pm daily wbc is popular and not diagnostic for anything pt is not in icu despite vent status. ua seems benign to me no sz noted. no change in recs. see that zosyn continues per primary team. note that cx will be positive from a trach no matter what. so real hu is the cxr urine cx likely contaminated so would not target it. broad gnr rx will worsen cdiff status if that is what you think it is please document a goals of care discussion Time Spent With Patient Time: Total time spent is greater than 50% in coordination of care (as documented) at patient's floor/unit and/or counseling patient:
[2025-03-19 16:20] LABS: Hematocrit 22.9 % (36.0-46.0)
[2025-03-19 16:30] LABS: Hemoglobin 7.2 g/dL (12.0-16.0)
--- NOTE | 2025-03-19 17:34 | ESPR_ITS ---
Documentation for date of: 03/19/25 Subjective Subjective Interval history: Patient was seen and examined at bedside. No acute events took place overnight. +Diarrhea, Had 5 bowel movements since yesterday. C. difficile positive. Patient remained afebrile overnight. Stopped clindamycin as no longer concern for necrotizing fasciitis. DC'ed IV vancomycin iso negative B ctx. Continuing with Zosyn IV vancomycin, and oral vancomycin. U ctx grew GNR. Exam Vital Signs Temp Pulse Resp BP Pulse Ox O2 Del Method FiO2 97.8 F 87 18 108/62 98 Trans-Tracheal Cannula 30 03/19/25 16:00 03/19/25 16:00 03/19/25 16:00 03/19/25 16:00 03/19/25 16:00 03/19/25 16:00 03/19/25 16:00 Narrative Exam General: Non-responsive, no acute distress. Trach and PEG in place, on mechanical ventilation. Skin: Warm, dry, intact. Head: Normocephalic, atraumatic. Eye: Normal conjunctiva, PERRL. Cardiovascular: Regular rate and rhythm, no murmur, +S1/S2. Respiratory: Lungs are clear to auscultation, respirations unlabored, no crackles, no wheezing. Gastrointestinal: Soft, nontender, nondistended. No guarding or rebound tenderness. Extremities: No edema, no cyanosis, no clubbing. 2+ radial pulse bilaterally, 2+ pedal pulse bilaterally. diffuse ecchymosis about the lateral right thigh, also a lesser one with a smaller area of involvement on the lateral aspect of the left thigh, warm to touch, and grimacing to palpation. Back: Diaper rash noted, slight pressure wound on coccyx without any drainage or pus. Objective Labs 03/20/25 05:00 03/20/25 05:00 Labs: Laboratory Results - last 24 hr 03/19/25 03/19/25 03/19/25 04:56 08:48 15:58 WBC 21.6 H D RBC 2.30 L Hgb 7.1 L 7.2 L Hct 22.1 L 22.9 L MCV 96 MCH 30.9 MCHC 32.1 RDW Std Deviation 60.7 H Plt Count 315 Neut % (Auto) 78 Lymph % (Auto) 10 Levy % (Auto) 9 Eos % (Auto) 0 Baso % (Auto) 0 Neut # (Auto) 16.7 H Lymph # (Auto) 2.2 Levy # (Auto) 2.0 H Eos # (Auto) 0.1 Baso # (Auto) 0.1 Immature Gran # (Auto) 0.55 H Absolute Nucleated RBC 0.04 H Immature Gran % 3 H Nucleated RBC % 0 Sodium 136 Potassium 3.7 D Chloride 98 Carbon Dioxide 27.2 Anion Gap 11 BUN 14 Creatinine 0.7 Estim Creat Clear Calc 78.8 eGFR > 60 BUN/Creatinine Ratio 20 Glucose 130 H Calculated Osmolality 274 L Calcium 8.6 Corrected Calcium 9.2 Phosphorus 3.2 Magnesium 2.0 Total Bilirubin < 0.2 L AST 41 H ALT 16 Alkaline Phosphatase 77 Total Protein 6.4 Albumin 3.2 L Globulin 3.2 Albumin/Globulin Ratio 1.0 L Vancomycin Trough 9.8 Quality Measures Quality Measures VTE prophylaxis and sepsis Current suspected stage: ruled out Possible source: pulmonary and GI tract/intra-abdominal Blood cultures ordered: yes Antibiotic ordered: Yes Advance care planning discussed with:: patient Assessment & Plan Assessment Current Active Medications: Generic Name Dose Route Start Last Admin Trade Name Freq PRN Reason Stop Dose Admin Acetaminophen 650 mg 03/17/25 00:23 03/18/25 17:15 Acetaminophen 325 Mg Tablet NG 04/16/25 00:22 650 mg Q6H PRN Administration Fever >101.5 or pain 1-3 Aspirin 81 mg 03/17/25 09:00 03/19/25 10:16 Aspirin Ec 81 Mg Tabec PO 04/16/25 08:59 81 mg QDAY JAYMIE Administration Atorvastatin Calcium 40 mg 03/17/25 21:00 03/18/25 21:37 Atorvastatin Calcium 20 Mg Tablet GT 04/16/25 20:59 40 mg HS JAYMIE Administration Balsam [place] Oil 0 gm 03/18/25 21:00 03/19/25 10:24 Balsam [place] Oil (Venelex) 60 Gm Tube TOP 04/17/25 20:59 1 gm BID JAYMIE Administration Dextrose 25 ml 03/17/25 02:46 Dextrose 50%-Water Inj 50 Ml Syringe IV 04/16/25 02:45 Q15MIN PRN BG 50-70 responsive npo pt Dextrose 50 ml 03/17/25 02:46 Dextrose 50%-Water Inj 50 Ml Syringe IV 04/16/25 02:45 Q15MIN PRN BG <50 OR BG <70 & pt unresponsive Glucagon 1 mg 03/17/25 02:46 Glucagon Inj 1 Mg Vial IM Q15MIN PRN BG <70, and no IV access Guaifenesin/Dextromethorphan 1 each 03/17/25 02:46 Guaifenesin/Dm Tablet GT 04/16/25 02:45 Q6H PRN COUGH Heparin Sodium (Porcine) 5,000 unit 03/17/25 00:30 03/19/25 11:43 Heparin Sod Inj 5000 Unit/Ml Vial SC 03/31/25 00:29 5,000 unit Q12H JAYMIE Administration Piperacillin/Tazobactam/Dextrose 3.375 gm in 50 mls @ 100 mls/hr 03/18/25 12:00 03/19/25 11:44 Zosyn IV 03/25/25 11:59 100 mls/hr Q6HR JAYMIE Administration Protocol Insulin Human Lispro 0 unit 03/17/25 06:00 03/19/25 11:36 Insulin Lispro (Admelog) 1 Unit/0.01 Ml Unit SC 04/16/25 05:59 Not Given Q6HR JAYMIE Protocol Levetiracetam 1,000 mg 03/17/25 09:00 03/19/25 10:17 Levetiracetam 250 Mg Tablet GT 04/16/25 08:59 1,000 mg BID JAYMIE Administration Lorazepam 2 mg 03/17/25 03:00 Lorazepam 2 Mg/Ml Vial IVP 03/22/25 02:59 Q8HR PRN Seizures Valproic Acid 500 mg 03/17/25 06:00 03/19/25 16:00 Valproic Acid Syrup 250 Mg/5 Ml Udc GT 04/16/25 05:59 500 mg TID JAYMIE Administration Vancomycin HCl 125 mg 03/18/25 12:00 03/19/25 16:00 Vancomycin Oral Solution 25 Mg/Ml GT 03/25/25 11:59 125 mg ACHS JAYMIE Administration Plan 69-year-old female with a history of epilepsy, hypertension, hyperlipidemia, T2DM, anoxic brain injury s/p trach and PEG who presented to [facility] ED from [facility] subacute care on 03/16 for a fever of 103 ?F. The patient was admitted for management of sepsis. #Acute sigmoid diverticulitis #History of recurrent C. difficile #Urinary tract infection #Pneumonia? Patient noted to have a recurrent history of C. difficile and has noted to have loose stools during previous subacute care notes. Unable to get a hold of subacute nurse for further information, however the patient was noted to have significantly elevated WBC similar to previous admissions for C. difficile infection. The patient was previously discharged to complete a course of fidaxomicin for the C. difficile infection. Other possible sources of infection include urinary tract infection given dirty UA and possibly pneumonia given chest x-ray suspicious for pneumonia. The patient is noted to have significantly low blood pressure in the ED requiring 2.5 L of fluid resuscitation and initiation of maintenance fluids to maintain her blood pressure. Endorgan damage noted with elevated lactic acid with lack of hypoxemia as the patient has been maintaining oxygen saturations in the high 90s. LA improved to 2.0. End organ damage also noted from new-onset coagulopathy D-dimer 1710, fibrinogen 694, with possible ischemic organ injury. Diagnostic: qSOFA score 2-3, 3-14 fold increase in in-hospital mortality rate WBC 45.1 on admission Lactic acid 4.3 on admission, trended down to 2.0 (03/17) Chest x-ray on 03/16 shows mild diffuse pneumonia in both lungs CT abdomen/pelvis on 03/16 preliminary read does show acute sigmoid diverticulitis without perforation or abscess, sacral decubitus ulceration, cholelithiasis, bibasilar pulmonary atelectasis/infiltrate, hepatomegaly, and possible cystitis. Urinalysis on 03/16 shows 1+ protein, 1+ glucose, 2+ blood, positive leukocyte esterase, 9 RBC, 7 WBC, and 1+ urine bacteria Blood cultures collected on 03/16, pending Urine culture collected on 03/16, pending C. difficile PCR ordered, pending ESR 33, D-dimer 1710, fibrinogen 694, WBC 47.6 ->21.6 B ctx (-), U ctx positive for GNR Plan Zosyn 3.375 g every 8 hours (03/16?) Oral vancomycin Taper via G-tube 125 mg ACHS for C. difficile treatment: [v ancomycin 125 p.o. 4 times daily for 10 days Followed by vancomycin 125 p.o. 3 times daily for 7 days, then 125 twice daily for 7 days, then 125 daily for 7 days.] DC'ed IV Vancomycin, pharmacy to dose daily (03/16?) Contact precautions # Ecchymosis over lateral thighs bilaterally, Rt worse than Lt # Cellulitis Ddx: Necrotizing fasciitis, cellulitis, bruising from trauma Diffuse ecchymosis about the lateral right thigh, also a lesser one with a smaller area of involvement on the lateral aspect of the left thigh, warm to touch, and grimacing to palpation. US showed Edema in the soft tissue but no soft tissue hematoma or mass CT BLE wo con showed?cellulitis pattern in the lower extremities, negative for soft tissue abscess, negative for necrotizing fasciitis Plan - clindamycin (03/17--) discontinued as Nec Fasc has been ruled out - Zosyn 3.375 g every 8 hours (03/16?) ? Continue to monitor daily #Chronic Normocytic Anemia On 03/19, Hgb low 7.1 (repeat H&H 7.2) yet stable. FOBT (+). Note: May not administer iron infusion iso active infection. -ordered anemia workup with AM labs: iron panel, ferritin, vit B9, and B12 levels #Seizure disorder Patient is noted to have a seizure disorder and has been prescribed levetiracetam 1000 mg twice daily and valproic acid 500 mg 3 times daily at the subacute. Unclear what her seizures look like. Treatment: Resumed home levetiracetam 1000 mg twice daily and valproic acid 500 mg 3 times daily Seizure precautions ordered Lorazepam 2 mg IV push every 8 hours as needed for seizures #Cholelithiasis Patient noted to have cholelithiasis on CT abdomen/pelvis. Low suspicion for any acute cholecystitis or cholangitis given that the patient does not have any elevation in LFTs and abdomen examination is benign. Treatment: If patient shows signs of abdominal pain, consider abdominal ultrasound for further evaluation #Normocytic anemia, chronic On admission, patient noted to have a hemoglobin of 9.1 with and a MCV of 93. This appears to be a chronic issue for the patient as her hemoglobin has been lower in the past. Treatment: Patient to follow-up outpatient If hemoglobin is less than 7, will transfuse as per protocol #Anoxic brain injury #Status post tracheostomy #Status post PEG tube placement #PEG tube feeding Patient is noted to have a history of anoxic brain injury that resulted in the patient requiring trach tube and PEG tube placement. Patient receives nutrition via tube feeding. No apparent documentation on what the current tube feeding and rate is. Treatment: Resumed patient's home aspirin 81 mg daily Registered dietitian to evaluate for tube feeds #Insulin-dependent type 2 diabetes mellitus Patient noted to have a history of diabetes and requires insulin. Patient does take insulin glargine 8 units subcutaneous nightly at the subacute that she comes from. Treatment: Sliding scale insulin Blood glucose checks every 6 hours Registered dietitian to evaluate for tube feeds #History of hypertension #History of hyperlipidemia Patient noted to have a history of hypertension and hyperlipidemia. Given that the patient was having hypotension during admission secondary to her sepsis, we will hold off on antihypertensives for now. Treatment: Resumed home on atorvastatin 40 mg nightly #Hyponatremia, resolved Patient noted to have a sodium of 132 on admission. Patient does have a history of hyponatremia and has previously received salt tablets at the nursing facility for management of this condition. Treatment: Consider resuming salt tablets if hyponatremia worsens #Code Status No POLST form was provided on admission. Hospitalist team called the patient's sister who was noted as the patient's person to notify in the EMR, who wished for the patient to be full code, but if the patient were to have a CODE BLUE, the patient sister would like to be notified to change the patient's CODE STATUS to DNR. Treatment: Patient made full code, will call patient Sister for CODE STATUS changes as needed DVT Prophylaxis: Heparin GI Prophylaxis: N/A Bowel: N/A Diet: Pending dietitian tube feed recommendation [place]: Yes Lines: Peripheral IV, trach tube, PEG tube Antibiotics: oral vancomycin Code Status: FULL Reason for Hospitalization: Sepsis Other Barriers to Discharge: Blood cultures This case was discussed with my attending physician, Dr. Patel, and senior resident, Karthikeyan. Even though this this note was carefully revised there may still be minor errors in wharfinger chief due to voice recognition software. Etta Manley, DO [facility] Senior Resident Attestation: The patient continues to have multiple episodes of watery bowel movement, but white count has been trending down. We will continue with oral vancomycin but discontinue IV vancomycin and ceftriaxone. Will continue to monitor the patient closely. We will also plan for goals of care discussion tomorrow with the family members. I discussed with and supervised the medical assistant internal medicine physician involved in the care of this patient. I personally saw and examined the patient and discussed the assessment and plan with the entire medicine team, including my attending. I agree with the assessment and plan as documented above. Remington Napier MD PGY3 Internal Medicine Attending Provider Attestation/Addendum I have seen and examined the patient. I was physically present for the hu portions of the services provided including history, physical exam, diagnosis, treatment plans and orders. I agree with assessment and plan of care as documented by residents. Even though this this note was carefully revised there may still be minor errors in wharfinger chief due to voice recognition software. Yu Patel MD
[2025-03-19] MEDS: ATORVASTATIN CALCIUM 20 MG TABLET 40 MG GT (21:08)
[2025-03-20] VITALS (15 sets, daily range): BP systolic 101–159; BP diastolic 54–79; PULSE 73–100; RESP 15–34; TEMP 35.9–37.1; O2SAT 96–100; BMI 31.9
[2025-03-20] MEDS: PIPER/TAZO 3.375 GM PREMIX 3.375 GM/50 ML BAG IV (05:33)
[2025-03-20] MEDS: VALPROIC ACID SYRUP 250 MG/5 ML UDC 500 MG GT ×3 (05:33→20:33)
[2025-03-20 05:45] LABS: Basophils # (Auto) 0.1 Thou/mm3 (0.0-0.2); Basophils % (Auto) 1 % (0-2.5); Eosinophils # (Auto) 0.2 Thou/mm3 (0.0-0.5); Eosinophils % (Auto) 1 % (0-10); Hematocrit 21.8 % (36.0-46.0); Immature Granulocytes Auto 0.49 Thou/mm3 (0.00-0.00); Lymphocytes # (Auto) 2.0 Thou/mm3 (1.0-4.8); Lymphocytes % (Auto) 13 % (10-50); Mean Corpuscular HGB Conc 31.7 g/dl (31.0-37.0); Mean Corpuscular Hemoglobin 30.0 pg (25.0-35.0); Mean Corpuscular Volume 95 fL (80-100); Monocytes # (Auto) 1.3 Thou/mm3 (0.0-0.8); Monocytes % (Auto) 9 % (0-12); Neutrophils # (Auto) 11.0 Thou/mm3 (1.8-7.7); Neutrophils % (Auto) 73 % (37-80); Nucleated Red Blood Cell # 0.02 Thou/mm3 (0.00-0.00); Nucleated Red Blood Cell % 0 /100 WBC (0); Platelet Count 327 Thou/mm3 (140-440); RDW Standard Deviation 58.0 fL (36.4-46.3); Red Blood Count 2.30 Miln/mm3 (4.00-5.20); White Blood Count 15.1 Thou/mm3 (3.6-11.0)
[2025-03-20 05:49] LABS: Hemoglobin 6.9 g/dL (12.0-16.0)
[2025-03-20 06:03] LABS: Ferritin 466 ng/mL (7.3-270.7); Iron 29 mcg/dL (50-170); Percent Iron Saturation 11 % (20-55); Total Iron Binding Capacity 255 mcg/dL (250-425); Unsaturated Iron Binding 226 (225-295)
[2025-03-20 06:10] LABS: Alanine Aminotransferase 19 U/L (10-49); Albumin, Serum 3.3 gm/dL (3.4-4.8); Albumin/Globulin Ratio 1.0 (1.2-2.2); Alkaline Phosphatase 63 U/L (46-116); Anion Gap 11 (7-16); Aspartate Amino Transferase 53 U/L (0-34); BUN/Creatinine Ratio 18 Ratio (12-20); Bilirubin,Total < 0.2 mg/dL (0.3-1.2); Blood Urea Nitrogen 11 mg/dL (9-23); Calcium 8.7 mg/dL (8.3-10.6); Calcium (Corrected) 9.3 mg/dL (8.5-10.1); Carbon Dioxide 30.8 mMol/L (20.0-31.0); Chloride 99 mMol/L (98-107); Creatinine (Component) 0.6 mg/dL (0.6-1.3); Estimated Creatinine Clearance 91.9 mL/min (>60); Globulin 3.3 gm/dL (2.3-3.5); Glucose 95 mg/dL (74-106); Magnesium 2.1 mg/dL (1.6-2.6); Osmolality,Calculated 280 (275-295); Phosphorous 3.6 mg/dL (2.4-5.1); Potassium 3.4 mMol/L (3.4-5.1); Sodium 141 mMol/L (136-145); Total Protein 6.6 gm/dL (5.7-8.2); eGFR > 60 See Note
[2025-03-20 06:38] LABS: Folate > 24.00 ng/mL (>5.38); Vitamin B12 1288 pg/mL (211-911)
[2025-03-20] MEDS: VANCOMYCIN 25 MG/ML 125 MG GT ×4 (07:34→20:33)
[2025-03-20] MEDS: ASPIRIN 81 MG CHEW GT (08:56)
[2025-03-20] MEDS: POTASSIUM CHL 10 mEq IVPB 10 MEQ/100 ML BAG 70 MEQ IV ×3 (08:56→11:59)
[2025-03-20] MEDS: BALSAM PERU/CASTOR OIL (Venelex) 60 GM TUBE TOP ×2 (08:57→20:34)
--- NOTE | 2025-03-20 10:34 | ESPR_ITS ---
Tele Neuro Progress Note Progress Note Date 03/20/25 Most Recent Vital Signs Last Vital Signs Temp 96.7 F L 03/20/25 08:00 Pulse 74 03/20/25 08:00 Resp 18 03/20/25 08:00 BP 117/57 L 03/20/25 08:00 Pulse Ox 98 03/20/25 08:00 O2 Del Method Mechanical Ventilation 03/20/25 08:00 FiO2 30 03/20/25 08:00 Laboratory-Coagulation Panel PT 11.9 Seconds (9.0-12.2) 03/17/25 08:18 INR 1.1 (0.9-1.3) 03/17/25 08:18 APTT 27.7 Seconds (22.0-36.0) 03/16/25 20:10 Fibrinogen 694 mg/dL (175-375) H* 03/17/25 08:18 D-Dimer 1710 ng/mL (<600) H 03/17/25 08:18 Progress Note Narrative [facility] TeleNeurology Consult Services Routine Consult Follow-Up Patient Name:???Guerita Ennis Date of :???1955 Identification Number:??? Date of Service:???03/20/2025 10:33:26 Diagnosis?G40.89 - Other seizures Impression Patient is a 69 yo female with pmhx epilepsy, HTN, DMII, anoxic brain injury s/p trach and peg who presented from subacute care with worsening mentation, fever of 103. Rapid response was called on 03/17 am as patient was noted to having shaking movement of b/l upper ext; however was able to follow commands during the episode. She received ativan 2 mg and the symptoms resolved. Etiology unclear. Possible non-epileptic event vs breakthrough seizure in the setting of underlying infection, missed AED dosing. Further work-up and eval per primary team, ID. Infectious and metabolic correction per primary team. EEG pending. Continue home Keppra, Depakote at current dosing. Seizure precautions for now. Ativan prn for seizure > 3 min. Consider palliative care/goals of care discussion with family is able. Other management and dispo per primary team. Neurology will sign off at this time. Call with any questions or concerns. Our recommendations are outlined below Subjective Patient seen this am. No updates or changes. No seizures reported. ? Examination Coma Exam: Ventilator:??Yes Sedated:?No Paralyzed:?No Breathes spontaneously above ventilator rate:?Yes Trach and peg Responds to Voice:??No Responds to Sternal rub:??Yes Postures:?No Tries to open eyes Withdraws limb from painful stimulation:??No Spontaneous limb movement:? Right arm:?No Left arm:?No Right leg:?No Left leg:?No Pupils:??Equal and Reactive ? This consult was conducted in real time using interactive audio and video technology. Patient was informed of the technology being used for this visit and agreed to proceed. Patient located in hospital and provider located at home/office setting. Telehealth Neurology consultation was provided. I spent minutes providing telehealth care. This includes time spent for face to face visit via telemedicine, review of medical records, imaging studies and discussion of findings with providers, the patient and/or family. Dr Mihir Gentile [facility] For Inpatient follow-up with [facility] physician please call [facility] at . As we are not an outpatient service for any post hospital discharge needs please contact the hospital for assistance. If you have any questions for the [facility] physicians or need to recon sult for clinical or diagnostic changes please contact us via [facility] at Signature :?Mihir Gentile
[2025-03-20] MEDS: LACTOBACILLUS RHAMNOSUS 1 CAP PO ×2 (11:59→20:37)
[2025-03-20] MEDS: cefTRIAXone/D5w 1gm IV premix 1 GM/50 ML BAG IV (11:59)
--- NOTE | 2025-03-20 18:25 | ESPR_ITS ---
Documentation for date of: 03/20/25 Subjective Subjective Interval history: Patient was seen and examined at bedside. No acute events took place overnight. +Diarrhea, Patient had 7 bowel movements yesterday and additional 2 by 5 a.m. C. difficile positive. Patient remained afebrile overnight. Stopped clindamycin as no longer concern for necrotizing fasciitis. DC'ed IV vancomycin iso negative B ctx. Continuing with Zosyn IV vancomycin, and oral vancomycin. U ctx grew GNR. Ecchymosis about left thighs strong and faded somewhat. Swelling improved, and overlying skin peeling. Exam Vital Signs Temp Pulse Resp BP Pulse Ox O2 Del Method FiO2 97.3 F 90 32 H 121/67 97 Mechanical Ventilation 30 03/20/25 16:13 03/20/25 16:13 03/20/25 16:13 03/20/25 16:13 03/20/25 16:13 03/20/25 16:00 03/20/25 16:00 Narrative Exam General: Non-responsive, no acute distress. Trach and PEG in place, on mechanical ventilation. Skin: Warm, dry, intact. Head: Normocephalic, atraumatic. Eye: Normal conjunctiva, PERRL. Cardiovascular: Regular rate and rhythm, no murmur, +S1/S2. Respiratory: Lungs are clear to auscultation, respirations unlabored, no crackles, no wheezing. Gastrointestinal: Soft, nontender, nondistended. No guarding or rebound tenderness. Extremities: No edema, no cyanosis, no clubbing. 2+ radial pulse bilaterally, 2+ pedal pulse bilaterally. diffuse ecchymosis about the lateral right thigh, also a lesser one with a smaller area of involvement on the lateral aspect of the left thigh, warm to touch, and grimacing to palpation. Back: Diaper rash noted, slight pressure wound on coccyx without any drainage or pus. Objective Labs 03/21/25 05:25 03/21/25 05:25 Labs: Laboratory Results - last 24 hr 03/20/25 03/20/25 05:00 06:19 WBC 15.1 H D RBC 2.30 L Hgb 6.9 L* Hct 21.8 L* MCV 95 MCH 30.0 MCHC 31.7 RDW Std Deviation 58.0 H Plt Count 327 Neut % (Auto) 73 Lymph % (Auto) 13 [place] % (Auto) 9 Eos % (Auto) 1 Baso % (Auto) 1 Neut # (Auto) 11.0 H Lymph # (Auto) 2.0 [place] # (Auto) 1.3 H Eos # (Auto) 0.2 Baso # (Auto) 0.1 Immature Gran # (Auto) 0.49 H Absolute Nucleated RBC 0.02 H Immature Gran % 3 H Nucleated RBC % 0 Sodium 141 Potassium 3.4 Chloride 99 Carbon Dioxide 30.8 Anion Gap 11 BUN 11 Creatinine 0.6 Estim Creat Clear Calc 91.9 eGFR > 60 BUN/Creatinine Ratio 18 Glucose 95 Calculated Osmolality 280 Calcium 8.7 Corrected Calcium 9.3 Phosphorus 3.6 Magnesium 2.1 Iron 29 L TIBC 255 Iron Saturation 11 L Unsat Iron Binding 226 Ferritin 466 H Total Bilirubin < 0.2 L AST 53 H ALT 19 Alkaline Phosphatase 63 Total Protein 6.6 Albumin 3.3 L Globulin 3.3 Albumin/Globulin Ratio 1.0 L Vitamin B12 1288 H Folate > 24.00 Blood Type B Positive Antibody Screen NEGATIVE Crossmatch See Detail Blood Bank Wristband ID Yes Quality Measures Quality Measures VTE prophylaxis and sepsis Current suspected stage: ruled out Possible source: pulmonary and GI tract/intra-abdominal Blood cultures ordered: yes Antibiotic ordered: Yes Advance care planning discussed with:: patient Assessment & Plan Assessment Current Active Medications: Generic Name Dose Route Start Last Admin Trade Name Freq PRN Reason Stop Dose Admin Acetaminophen 650 mg 03/17/25 00:23 03/18/25 17:15 Acetaminophen 325 Mg Tablet NG 04/16/25 00:22 650 mg Q6H PRN Administration Fever >101.5 or pain 1-3 Aspirin 81 mg 03/20/25 09:00 03/20/25 08:56 Aspirin 81 Mg Chew GT 04/16/25 08:59 81 mg QDAY JAYMIE Administration Atorvastatin Calcium 40 mg 03/17/25 21:00 03/19/25 21:08 Atorvastatin Calcium 20 Mg Tablet GT 04/16/25 20:59 40 mg HS JAYMIE Administration Balsam [place] Oil 0 gm 03/18/25 21:00 03/20/25 08:57 Balsam [place] Oil (Venelex) 60 Gm Tube TOP 04/17/25 20:59 1 applicatio BID JAYMIE Administration Dextrose 25 ml 03/17/25 02:46 Dextrose 50%-Water Inj 50 Ml Syringe IV 04/16/25 02:45 Q15MIN PRN BG 50-70 responsive npo pt Dextrose 50 ml 03/17/25 02:46 Dextrose 50%-Water Inj 50 Ml Syringe IV 04/16/25 02:45 Q15MIN PRN BG <50 OR BG <70 & pt unresponsive Glucagon 1 mg 03/17/25 02:46 Glucagon Inj 1 Mg Vial IM Q15MIN PRN BG <70, and no IV access Guaifenesin/Dextromethorphan 1 each 03/17/25 02:46 Guaifenesin/Dm Tablet GT 04/16/25 02:45 Q6H PRN COUGH Heparin Sodium (Porcine) 5,000 unit 03/17/25 00:30 03/19/25 23:39 Heparin Sod Inj 5000 Unit/Ml Vial SC 03/31/25 00:29 5,000 unit On Hold: 03/20/25 07:45 Q12H JAYMIE Administration Ceftriaxone Sodium/Dextrose 1 gm in 50 mls @ 100 mls/hr 03/20/25 10:51 03/20/25 11:59 Rocephin/D5w 1gm Iv Premix IV 03/27/25 10:50 100 mls/hr QDAY JAYMIE Administration Insulin Human Lispro 0 unit 03/17/25 06:00 03/20/25 17:50 Insulin Lispro (Admelog) 1 Unit/0.01 Ml Unit SC 04/16/25 05:59 Not Given Q6HR JAYMIE Protocol Lactobacillus Rhamnosus 1 cap 03/20/25 11:00 03/20/25 11:59 Lactobacillus Rhamnosus 1 Cap PO 04/19/25 10:59 1 cap BID JAYMIE Administration Levetiracetam 1,000 mg 03/17/25 09:00 03/20/25 08:56 Levetiracetam 250 Mg Tablet GT 04/16/25 08:59 1,000 mg BID JAYMIE Administration Lorazepam 2 mg 03/17/25 03:00 Lorazepam 2 Mg/Ml Vial IVP 03/22/25 02:59 Q8HR PRN Seizures Valproic Acid 500 mg 03/17/25 06:00 03/20/25 14:28 Valproic Acid Syrup 250 Mg/5 Ml Udc GT 04/16/25 05:59 500 mg TID JAYMIE Administration Vancomycin HCl 125 mg 03/18/25 12:00 03/20/25 17:24 Vancomycin Oral Solution 25 Mg/Ml GT 03/25/25 11:59 125 mg ACHS JAYMIE Administration Plan 69-year-old female with a history of epilepsy, hypertension, hyperlipidemia, T2DM, anoxic brain injury s/p trach and PEG who presented to [facility] from [facility] subacute care on 03/16 for a fever of 103 ?F. The patient was admitted for management of sepsis. # Goals of care 03/20 Led goals of care discussion with patient's sister Suzie Ennis, and in the presence of the primary medical team, Hospitalist attending Dr Patel, reviewed past medical history with 1 year history of tracheostomy and mechanical ventilation which has predisposed the patient to multiple respiratory infections. Explained that patient is chronically bedbound, which predisposes the patient to recurrent UTIs. Explained the challenge of medical therapy as it appears to be prolonging suffering to the patient in the light of recurrent infections and frequent hospitalizations. Patient code status modified to DNR according to wishes of her primary decision maker, sister, and requested to pursue full scope of treatment otherwise. #Acute sigmoid diverticulitis #History of recurrent C. difficile #Urinary tract infection #Pneumonia? Patient noted to have a recurrent history of C. difficile and has noted to have loose stools during previous subacute care notes. Unable to get a hold of subacute nurse for further information, however the patient was noted to have significantly elevated WBC similar to previous admissions for C. difficile infection. The patient was previously discharged to complete a course of fidaxomicin for the C. difficile infection. Other possible sources of infection include urinary tract infection given dirty UA and possibly pneumonia given chest x-ray suspicious for pneumonia. The patient is noted to have significantly low blood pressure in the ED requiring 2.5 L of fluid resuscitation and initiation of maintenance fluids to maintain her blood pressure. Endorgan damage noted with elevated lactic acid with lack of hypoxemia as the patient has been maintaining oxygen saturations in the high 90s. LA improved to 2.0. End organ damage also noted from new-onset coagulopathy D-dimer 1710, fibrinogen 694, with possible ischemic organ injury. Diagnostic: qSOFA score 2-3, 3-14 fold increase in in-hospital mortality rate WBC 45.1 on admission Lactic acid 4.3 on admission, trended down to 2.0 (03/17) Chest x-ray on 03/16 shows mild diffuse pneumonia in both lungs CT abdomen/pelvis on 03/16 preliminary read does show acute sigmoid diverticulitis without perforation or abscess, sacral decubitus ulceration, cholelithiasis, bibasilar pulmonary atelectasis/infiltrate, hepatomegaly, and possible cystitis. Urinalysis on 03/16 shows 1+ protein, 1+ glucose, 2+ blood, positive leukocyte esterase, 9 RBC, 7 WBC, and 1+ urine bacteria Blood cultures collected on 03/16, pending Urine culture collected on 03/16, pending C. difficile PCR ordered, pending ESR 33, D-dimer 1710, fibrinogen 694, WBC 47.6 ->21.6 B ctx (-), U ctx positive for GNR Plan Started ceftriaxone IV 1g (03/20--) and discontinued Zosyn 3.375 g every 8 hours (03/16? 03/20) Oral vancomycin Taper via G-tube 125 mg ACHS for C. difficile treatment: [v ancomycin 125 p.o. 4 times daily for 10 days Followed by vancomycin 125 p.o. 3 times daily for 7 days, then 125 twice daily for 7 days, then 125 daily for 7 days.] DC'ed IV Vancomycin, pharmacy to dose daily (03/16?) Contact precautions # Ecchymosis over lateral thighs bilaterally, Rt worse than Lt # Cellulitis Ddx: Necrotizing fasciitis, cellulitis, bruising from trauma Diffuse ecchymosis about the lateral right thigh, also a lesser one with a smaller area of involvement on the lateral aspect of the left thigh, warm to touch, and grimacing to palpation. US showed Edema in the soft tissue but no soft tissue hematoma or mass CT BLE wo con showed?cellulitis pattern in the lower extremities, negative for soft tissue abscess, negative for necrotizing fasciitis MRSA (-) and B ctx also negative Plan - clindamycin (03/17--24) discontinued as Nec Fasc has been ruled out - Started ceftriaxone IV 1g (03/20--) and discontinued Zosyn 3.375 g every 8 hours (03/16? 03/20) ? Continue to monitor daily #Chronic Normocytic Anemia On 03/19, Hgb low 7.1 (repeat H&H 7.2) yet stable. FOBT (+). 03/20: Iron 29, iron sat 11, TIBC 255, unsat iron binding 466 all low. Ferritin 466 H, vit B12 1288 and folate >24 WNL. Note: May not administer iron infusion iso active infection. #Seizure disorder Patient is noted to have a seizure disorder and has been prescribed levetiracetam 1000 mg twice daily and valproic acid 500 mg 3 times daily at the subacute. Unclear what her seizures look like. Treatment: Resumed home levetiracetam 1000 mg twice daily and valproic acid 500 mg 3 times daily Seizure precautions ordered Lorazepam 2 mg IV push every 8 hours as needed for seizures #Cholelithiasis Patient noted to have cholelithiasis on CT abdomen/pelvis. Low suspicion for any acute cholecystitis or cholangitis given that the patient does not have any elevation in LFTs and abdomen examination is benign. Treatment: If patient shows signs of abdominal pain, consider abdominal ultrasound for further evaluation #Normocytic anemia, chronic On admission, patient noted to have a hemoglobin of 9.1 with and a MCV of 93. This appears to be a chronic issue for the patient as her hemoglobin has been lower in the past. Treatment: Patient to follow-up outpatient If hemoglobin is less than 7, will transfuse as per protocol #Anoxic brain injury #Status post tracheostomy #Status post PEG tube placement #PEG tube feeding Patient is noted to have a history of anoxic brain injury that resulted in the patient requiring trach tube and PEG tube placement. Patient receives nutrition via tube feeding. No apparent documentation on what the current tube feeding and rate is. Treatment: Resumed patient's home aspirin 81 mg daily Registered dietitian to evaluate for tube feeds #Insulin-dependent type 2 diabetes mellitus Patient noted to have a history of diabetes and requires insulin. Patient does take insulin glargine 8 units subcutaneous nightly at the subacute that she comes from. Treatment: Sliding scale insulin Blood glucose checks every 6 hours Registered dietitian to evaluate for tube feeds #History of hypertension #History of hyperlipidemia Patient noted to have a history of hypertension and hyperlipidemia. Given that the patient was having hypotension during admission secondary to her sepsis, we will hold off on antihypertensives for now. Treatment: Resumed home on atorvastatin 40 mg nightly #Hyponatremia, resolved Patient noted to have a sodium of 132 on admission. Patient does have a history of hyponatremia and has previously received salt tablets at the nursing facility for management of this condition. Treatment: Consider resuming salt tablets if hyponatremia worsens #Code Status No POLST form was provided on admission. Hospitalist team called the patient's sister who was noted as the patient's person to notify in the EMR, who wished for the patient to be full code, but if the patient were to have a CODE BLUE, the patient sister would like to be notified to change the patient's CODE STATUS to DNR. Treatment: Patient made full code, will call patient Sister for CODE STATUS changes as needed DVT Prophylaxis: Heparin GI Prophylaxis: N/A Bowel: N/A Diet: Pending dietitian tube feed recommendation [place]: Yes Lines: Peripheral IV, trach tube, PEG tube Antibiotics: oral vancomycin Code Status: FULL Reason for Hospitalization: Sepsis Other Barriers to Discharge: Blood cultures This case was discussed with my attending physician, Dr. Patel, and senior resident, Karthikeyan. Even though this this note was carefully revised there may still be minor errors in sign poster due to voice recognition software. Etta Manley, DO PGY I Senior Resident Attestation: The patient continues to have multiple episodes of watery bowel movement, but white count has been trending down. Goals of care discussion was done with the patient's sister, who mentioned that she understands that the patient is not going to get better, but she is dealing with a lot of stress right now, and would like to buy some time, and in the meantime would like to place the patient on DNR status, but continue other treatment. Will continue with oral vancomycin, and other antibiotics were discontinued, and was started on ceftriaxone 1 g daily for cellulitis of bilateral lower limb. I discussed with and supervised the strategy intern physician involved in the care of this patient. I personally saw and examined the patient and discussed the assessment and plan with the entire medicine team, including my attending. I agree with the assessment and plan as documented above. Remington Napier MD PGY3 Internal Medicine Attending Provider Attestation/Addendum I have seen and examined the patient. I was physically present for the hu portions of the services provided including history, physical exam, diagnosis, treatment plans and orders. I agree with assessment and plan of care as documented by residents. Even though this this note was carefully revised there may still be minor errors in sign poster due to voice recognition software. Yu Patel MD
[2025-03-20 19:55] LABS: Hematocrit 29.9 % (36.0-46.0); Hemoglobin 9.9 g/dL (12.0-16.0)
[2025-03-20] MEDS: ATORVASTATIN CALCIUM 20 MG TABLET 40 MG GT (20:33)
[2025-03-21] VITALS (15 sets, daily range): BP systolic 96–141; BP diastolic 62–75; PULSE 82–94; RESP 14–35; TEMP 36.1–36.7; O2SAT 18–99
[2025-03-21] MEDS: VALPROIC ACID SYRUP 250 MG/5 ML UDC 500 MG GT ×3 (05:32→20:23)
[2025-03-21 06:21] LABS: Basophils # (Auto) 0.1 Thou/mm3 (0.0-0.2); Basophils % (Auto) 1 % (0-2.5); Eosinophils # (Auto) 0.1 Thou/mm3 (0.0-0.5); Eosinophils % (Auto) 1 % (0-10); Hematocrit 26.9 % (36.0-46.0); Immature Granulocytes Auto 1.65 Thou/mm3 (0.00-0.00); Lymphocytes # (Auto) 2.6 Thou/mm3 (1.0-4.8); Lymphocytes % (Auto) 17 % (10-50); Mean Corpuscular HGB Conc 32.3 g/dl (31.0-37.0); Mean Corpuscular Hemoglobin 30.3 pg (25.0-35.0); Mean Corpuscular Volume 94 fL (80-100); Monocytes # (Auto) 2.0 Thou/mm3 (0.0-0.8); Monocytes % (Auto) 13 % (0-12); Neutrophils # (Auto) 9.2 Thou/mm3 (1.8-7.7); Neutrophils % (Auto) 59 % (37-80); Nucleated Red Blood Cell # 0.04 Thou/mm3 (0.00-0.00); Nucleated Red Blood Cell % 0 /100 WBC (0); Platelet Count 353 Thou/mm3 (140-440); RDW Standard Deviation 56.9 fL (36.4-46.3); Red Blood Count 2.87 Miln/mm3 (4.00-5.20); White Blood Count 15.7 Thou/mm3 (3.6-11.0)
[2025-03-21 06:22] LABS: Hemoglobin 8.7 g/dL (12.0-16.0)
[2025-03-21 06:33] LABS: Alanine Aminotransferase 20 U/L (10-49); Albumin, Serum 3.0 gm/dL (3.4-4.8); Albumin/Globulin Ratio 0.9 (1.2-2.2); Alkaline Phosphatase 69 U/L (46-116); Anion Gap 7 (7-16); Aspartate Amino Transferase 40 U/L (0-34); BUN/Creatinine Ratio 17 Ratio (12-20); Bilirubin,Total < 0.2 mg/dL (0.3-1.2); Blood Urea Nitrogen 10 mg/dL (9-23); Calcium 8.9 mg/dL (8.3-10.6); Calcium (Corrected) 9.7 mg/dL (8.5-10.1); Carbon Dioxide 32.8 mMol/L (20.0-31.0); Chloride 99 mMol/L (98-107); Creatinine (Component) 0.6 mg/dL (0.6-1.3); Estimated Creatinine Clearance 92.7 mL/min (>60); Globulin 3.4 gm/dL (2.3-3.5); Glucose 125 mg/dL (74-106); Magnesium 2.0 mg/dL (1.6-2.6); Osmolality,Calculated 277 (275-295); Phosphorous 3.5 mg/dL (2.4-5.1); Potassium 3.6 mMol/L (3.4-5.1); Sodium 139 mMol/L (136-145); Total Protein 6.4 gm/dL (5.7-8.2); eGFR > 60 See Note
[2025-03-21] MEDS: VANCOMYCIN 25 MG/ML 125 MG GT ×4 (07:54→20:25)
[2025-03-21] MEDS: BALSAM PERU/CASTOR OIL (Venelex) 60 GM TUBE TOP ×2 (07:56→20:28)
[2025-03-21] MEDS: ASPIRIN 81 MG CHEW GT (08:00)
[2025-03-21] MEDS: cefTRIAXone/D5w 1gm IV premix 1 GM/50 ML BAG IV (08:00)
[2025-03-21] MEDS: LACTOBACILLUS RHAMNOSUS 1 CAP PO ×2 (08:01→20:21)
--- NOTE | 2025-03-21 09:10 | ESPR_ITS ---
Subjective Subjective Interval history: urine not striking (7 wbc) and cx mixed with 3 germs you can target them if you like or just stop abx I stopped the rocephin as main disease appears to be the diarrhea Exam Vital Signs Temp Pulse Resp BP Pulse Ox O2 Del Method FiO2 97.9 F 86 29 H 140/67 H 98 Mechanical Ventilation 30 03/21/25 08:00 03/21/25 08:00 03/21/25 08:00 03/21/25 08:00 03/21/25 08:00 03/21/25 08:00 03/21/25 08:00 Narrative Exam limited eval today. Objective - Internal Medicine Labs 03/21/25 05:25 03/21/25 05:25 Labs: Laboratory Results - last 24 hr 03/20/25 03/20/25 03/21/25 06:19 19:42 05:25 WBC 15.7 H RBC 2.87 L Hgb 9.9 L D 8.7 L Hct 29.9 L 26.9 L MCV 94 MCH 30.3 MCHC 32.3 RDW Std Deviation 56.9 H Plt Count 353 Neut % (Auto) 59 Lymph % (Auto) 17 [place] % (Auto) 13 H Eos % (Auto) 1 Baso % (Auto) 1 Neut # (Auto) 9.2 H Lymph # (Auto) 2.6 [place] # (Auto) 2.0 H Eos # (Auto) 0.1 Baso # (Auto) 0.1 Immature Gran # (Auto) 1.65 H Absolute Nucleated RBC 0.04 H Immature Gran % 11 H Nucleated RBC % 0 Sodium 139 Potassium 3.6 Chloride 99 Carbon Dioxide 32.8 H Anion Gap 7 BUN 10 Creatinine 0.6 Estim Creat Clear Calc 92.7 eGFR > 60 BUN/Creatinine Ratio 17 Glucose 125 H Calculated Osmolality 277 Calcium 8.9 Corrected Calcium 9.7 Phosphorus 3.5 Magnesium 2.0 Total Bilirubin < 0.2 L AST 40 H ALT 20 Alkaline Phosphatase 69 Total Protein 6.4 Albumin 3.0 L Globulin 3.4 Albumin/Globulin Ratio 0.9 L Blood Type B Positive Antibody Screen NEGATIVE Crossmatch See Detail Blood Bank Wristband ID Yes Assessment & Plan A&P Narrative leudocytosis with mild pna described on cxr and chronic resp failure in a full code pt. hx of cdiff noted with suspected recurrence. if cdiff pos. ok to treat with vanco with a taper 125 qid for 10d, then 125 tid for 7d, then 125 bid for 7d, then 125 daily for 7d. dificid has not been shown to be better than oral vanco with a taper then, if we have it, kefir yogurt daily. it is a food though so may not be available. pancho if she stays at subacute facility he daily wbc is popular and not diagnostic for anything pt is not in icu despite vent status. ua seems benign to me no sz noted. please document a goals of care discussion. will see again prn stopped the rocephin as ua benign. may have had mild cystitis. ok for 2/wk vaginal estrogen if no estrogen s tumors noted. Time Spent With Patient Time: Total time spent is greater than 50% in coordination of care (as documented) at patient's floor/unit and/or counseling patient:
[2025-03-21] MEDS: ASCORBIC ACID 250 MG TABLET 500 MG GT ×2 (10:16→20:21)
[2025-03-21] MEDS: CHOLECALCIFEROL (Vitamin D3) 1,000 IU TABLET 1000 IU GT ×2 (10:16→20:21)
[2025-03-21] MEDS: DOXYCYCLINE INJ 100 MG in SODIUM CHLORIDE 0.9% (POP) 100 ML IV ×2 (13:30→20:22)
--- NOTE | 2025-03-21 15:45 | ESPR_ITS ---
Documentation for date of: 03/21/25 Subjective Subjective Interval history: Patient was seen and examined at bedside. No acute events took place overnight. +Diarrhea, Patient had 5 bowel movements yesterday and additional 2 by 5 a.m. C. difficile positive. Patient remained afebrile overnight. Stopped clindamycin as no longer concern for necrotizing fasciitis. DC'ed IV vancomycin iso negative B ctx. continuing with vancomycin taper dose GT and added doxycycline oozing cellulits. U ctx grew GNR. Exam Vital Signs Temp Pulse Resp BP Pulse Ox O2 Del Method FiO2 97.8 F 82 29 H 123/71 97 Mechanical Ventilation 30 03/21/25 12:00 03/21/25 12:00 03/21/25 12:00 03/21/25 12:00 03/21/25 12:00 03/21/25 12:00 03/21/25 12:00 Narrative Exam General: Non-responsive, no acute distress. Trach and PEG in place, on mechanical ventilation. Skin: Warm, dry, intact. Head: Normocephalic, atraumatic. Eye: Normal conjunctiva, PERRL. Cardiovascular: Regular rate and rhythm, no murmur, +S1/S2. Respiratory: Lungs are clear to auscultation, respirations unlabored, no crackles, no wheezing. Gastrointestinal: Soft, nontender, nondistended. No guarding or rebound tenderness. Extremities: No edema, no cyanosis, no clubbing. 2+ radial pulse bilaterally, 2+ pedal pulse bilaterally. diffuse ecchymosis about the lateral right thigh, also a lesser one with a smaller area of involvement on the lateral aspect of the left thigh, warm to touch, and grimacing to palpation. Oozing appreciated from a central swelling. Back: Diaper rash noted, slight pressure wound on coccyx without any drainage or pus. Objective Labs 03/22/25 05:10 03/22/25 05:10 Labs: Laboratory Results - last 24 hr 03/20/25 03/20/25 03/21/25 06:19 19:42 05:25 WBC 15.7 H RBC 2.87 L Hgb 9.9 L D 8.7 L Hct 29.9 L 26.9 L MCV 94 MCH 30.3 MCHC 32.3 RDW Std Deviation 56.9 H Plt Count 353 Neut % (Auto) 59 Lymph % (Auto) 17 [place] % (Auto) 13 H Eos % (Auto) 1 Baso % (Auto) 1 Neut # (Auto) 9.2 H Lymph # (Auto) 2.6 [place] # (Auto) 2.0 H Eos # (Auto) 0.1 Baso # (Auto) 0.1 Immature Gran # (Auto) 1.65 H Absolute Nucleated RBC 0.04 H Immature Gran % 11 H Nucleated RBC % 0 Sodium 139 Potassium 3.6 Chloride 99 Carbon Dioxide 32.8 H Anion Gap 7 BUN 10 Creatinine 0.6 Estim Creat Clear Calc 92.7 eGFR > 60 BUN/Creatinine Ratio 17 Glucose 125 H Calculated Osmolality 277 Calcium 8.9 Corrected Calcium 9.7 Phosphorus 3.5 Magnesium 2.0 Total Bilirubin < 0.2 L AST 40 H ALT 20 Alkaline Phosphatase 69 Total Protein 6.4 Albumin 3.0 L Globulin 3.4 Albumin/Globulin Ratio 0.9 L Crossmatch See Detail Quality Measures Quality Measures VTE prophylaxis and sepsis Current suspected stage: ruled out Possible source: pulmonary and GI tract/intra-abdominal Blood cultures ordered: yes Antibiotic ordered: Yes Advance care planning discussed with:: patient Assessment & Plan Assessment Current Active Medications: Generic Name Dose Route Start Last Admin Trade Name Freq PRN Reason Stop Dose Admin Acetaminophen 650 mg 03/17/25 00:23 03/18/25 17:15 Acetaminophen 325 Mg Tablet NG 04/16/25 00:22 650 mg Q6H PRN Administration Fever >101.5 or pain 1-3 Ascorbic Acid 500 mg 03/21/25 09:00 03/21/25 10:16 Ascorbic Acid 250 Mg Tablet GT 04/20/25 08:59 500 mg BID JAYMIE Administration Aspirin 81 mg 03/20/25 09:00 03/21/25 08:00 Aspirin 81 Mg Chew GT 04/16/25 08:59 81 mg QDAY JAYMIE Administration Atorvastatin Calcium 40 mg 03/17/25 21:00 03/20/25 20:33 Atorvastatin Calcium 20 Mg Tablet GT 04/16/25 20:59 40 mg HS JAYMIE Administration Balsam [place] Oil 0 gm 03/18/25 21:00 03/21/25 07:56 Balsam [place] Oil (Venelex) 60 Gm Tube TOP 04/17/25 20:59 1 applicatio BID JAYMIE Administration Buspirone HCl 10 mg 03/21/25 09:00 03/21/25 10:16 Buspirone Hcl 5 Mg Tablet GT 04/20/25 08:59 10 mg BID JAYMIE Administration Dextrose 25 ml 03/17/25 02:46 Dextrose 50%-Water Inj 50 Ml Syringe IV 04/16/25 02:45 Q15MIN PRN BG 50-70 responsive npo pt Dextrose 50 ml 03/17/25 02:46 Dextrose 50%-Water Inj 50 Ml Syringe IV 04/16/25 02:45 Q15MIN PRN BG <50 OR BG <70 & pt unresponsive Glucagon 1 mg 03/17/25 02:46 Glucagon Inj 1 Mg Vial IM Q15MIN PRN BG <70, and no IV access Guaifenesin/Dextromethorphan 1 each 03/17/25 02:46 Guaifenesin/Dm Tablet GT 04/16/25 02:45 Q6H PRN COUGH Heparin Sodium (Porcine) 5,000 unit 03/17/25 00:30 03/19/25 23:39 Heparin Sod Inj 5000 Unit/Ml Vial SC 03/31/25 00:29 5,000 unit On Hold: 03/20/25 07:45 Q12H JAYMIE Administration Doxycycline Hyclate 100 mg/ 100 mls @ 100 mls/hr 03/21/25 11:20 03/21/25 13:30 Sodium Chloride IV 03/28/25 11:19 100 mls/hr BID JAYMIE Administration Insulin Human Lispro 0 unit 03/17/25 06:00 03/21/25 12:40 Insulin Lispro (Admelog) 1 Unit/0.01 Ml Unit SC 04/16/25 05:59 Not Given Q6HR JAYMIE Protocol Lactobacillus Rhamnosus 1 cap 03/20/25 11:00 03/21/25 08:01 Lactobacillus Rhamnosus 1 Cap PO 04/19/25 10:59 1 cap BID JAYMIE Administration Levetiracetam 1,000 mg 03/17/25 09:00 03/21/25 08:00 Levetiracetam 250 Mg Tablet GT 04/16/25 08:59 1,000 mg BID JAYMIE Administration Lorazepam 2 mg 03/17/25 03:00 Lorazepam 2 Mg/Ml Vial IVP 03/22/25 02:59 Q8HR PRN Seizures Valproic Acid 500 mg 03/17/25 06:00 03/21/25 13:31 Valproic Acid Syrup 250 Mg/5 Ml Udc GT 04/16/25 05:59 500 mg TID JAYMIE Administration Vancomycin HCl 125 mg 03/18/25 12:00 03/21/25 10:47 Vancomycin Oral Solution 25 Mg/Ml GT 03/25/25 11:59 125 mg ACHS JAYMIE Administration Vitamin D 1,000 iu 03/21/25 09:00 03/21/25 10:16 Cholecalciferol (Vitamin D3) 1,000 Iu Tablet GT 04/20/25 08:59 1,000 iu BID JAYMIE Administration Plan 69-year-old female with a history of epilepsy, hypertension, hyperlipidemia, T2DM, anoxic brain injury s/p trach and PEG who presented to [facility] ED from [facility] subacute care on 03/16 for a fever of 103 ?F. The patient was admitted for management of sepsis. # Goals of care 03/20/2025 Led a goals of care discussion with the patient's sister, Suzie Ennis, in the presence of the primary medical team, including Hospitalist attending Dr. Patel. We reviewed the patient's medical history, noting a one-year history of tracheostomy and mechanical ventilation, which have predisposed the patient to recurrent respiratory infections. I explained that the patient is chronically bedbound, which contributes to frequent urinary tract infections (UTIs). We discussed the challenges of continuing medical therapy, as it appears to be prolonging the patient's suffering in light of recurrent infections and frequent hospitalizations. Based on the patient's wishes, as communicated by her primary decision maker (her sister), the patient's code status was updated to DNR. The family also requested that all other aspects of treatment continue to be pursued. #Acute sigmoid diverticulitis #History of recurrent C. difficile #Urinary tract infection #Pneumonia? Patient noted to have a recurrent history of C. difficile and has noted to have loose stools during previous subacute care notes. Unable to get a hold of subacute nurse for further information, however the patient was noted to have significantly elevated WBC similar to previous admissions for C. difficile infection. The patient was previously discharged to complete a course of fidaxomicin for the C. difficile infection. Other possible sources of infection include urinary tract infection given dirty UA and possibly pneumonia given chest x-ray suspicious for pneumonia. The patient is noted to have significantly low blood pressure in the ED requiring 2.5 L of fluid resuscitation and initiation of maintenance fluids to maintain her blood pressure. Endorgan damage noted with elevated lactic acid with lack of hypoxemia as the patient has been maintaining oxygen saturations in the high 90s. LA improved to 2.0. End organ damage also noted from new-onset coagulopathy D-dimer 1710, fibrinogen 694, with possible ischemic organ injury. Diagnostic: qSOFA score 2-3, 3-14 fold increase in in-hospital mortality rate WBC 45.1 on admission Lactic acid 4.3 on admission, trended down to 2.0 (03/17) Chest x-ray on 03/16 shows mild diffuse pneumonia in both lungs CT abdomen/pelvis on 03/16 preliminary read does show acute sigmoid diverticulitis without perforation or abscess, sacral decubitus ulceration, cholelithiasis, bibasilar pulmonary atelectasis/infiltrate, hepatomegaly, and possible cystitis. Urinalysis on 03/16 shows 1+ protein, 1+ glucose, 2+ blood, positive leukocyte esterase, 9 RBC, 7 WBC, and 1+ urine bacteria Blood cultures collected on 03/16, pending Urine culture collected on 03/16, pending C. difficile PCR ordered, pending ESR 33, D-dimer 1710, fibrinogen 694, WBC 47.6 ->21.6 B ctx (-), U ctx positive for GNR including ESBL with sen to meropenem and Zosyn Plan Oral vancomycin Taper via G-tube 125 mg ACHS for C. difficile treatment: [v ancomycin 125 p.o. 4 times daily for 10 days Followed by vancomycin 125 p.o. 3 times daily for 7 days, then 125 twice daily for 7 days, then 125 daily for 7 days.] DC'ed ceftriaxone IV 1g (03/20--03/21) and discontinued Zosyn 3.375 g every 8 hours (03/16? 03/20) iso B ctx (-) DC'ed IV Vancomycin, pharmacy to dose daily (03/16?) Contact precautions # Ecchymosis over lateral thighs bilaterally, Rt worse than Lt # Cellulitis Ddx: Necrotizing fasciitis, cellulitis, bruising from trauma Diffuse ecchymosis about the lateral right thigh, also a lesser one with a smaller area of involvement on the lateral aspect of the left thigh, warm to touch, and grimacing to palpation. US showed Edema in the soft tissue but no soft tissue hematoma or mass CT BLE wo con showed?cellulitis pattern in the lower extremities, negative for soft tissue abscess, negative for necrotizing fasciitis MRSA (-) and B ctx also negative 03/21: Site of cellulitis over right hip oozing serosanguinous fluid Plan - Started doxycycline IV 100mg BID - clindamycin (03/17--) discontinued as Nec Fasc has been ruled out - DC'ed ceftriaxone IV 1g (03/20--03/21) and discontinued Zosyn 3.375 g every 8 hours (03/16? 03/20) ? Continue to monitor daily #Chronic Normocytic Anemia On 03/19, Hgb low 7.1 (repeat H&H 7.2) yet stable. FOBT (+). 03/20: Iron 29, iron sat 11, TIBC 255, unsat iron binding 466 all low. Ferritin 466 H, vit B12 1288 and folate >24 WNL. Hgb 9.9, 8.7 (03/21) Note: May not administer iron infusion iso active infection. #Seizure disorder Patient is noted to have a seizure disorder and has been prescribed levetiracetam 1000 mg twice daily and valproic acid 500 mg 3 times daily at the subacute. Unclear what her seizures look like. Treatment: -pending EEG by RT Resumed home levetiracetam 1000 mg twice daily and valproic acid 500 mg 3 times daily Seizure precautions ordered Lorazepam 2 mg IV push every 8 hours as needed for seizures #Cholelithiasis Patient noted to have cholelithiasis on CT abdomen/pelvis. Low suspicion for any acute cholecystitis or cholangitis given that the patient does not have any elevation in LFTs and abdomen examination is benign. Treatment: If patient shows signs of abdominal pain, consider abdominal ultrasound for further evaluation #Normocytic anemia, chronic On admission, patient noted to have a hemoglobin of 9.1 with and a MCV of 93. This appears to be a chronic issue for the patient as her hemoglobin has been lower in the past. Treatment: Patient to follow-up outpatient If hemoglobin is less than 7, will transfuse as per protocol #Anoxic brain injury #Status post tracheostomy #Status post PEG tube placement #PEG tube feeding Patient is noted to have a history of anoxic brain injury that resulted in the patient requiring trach tube and PEG tube placement. Patient receives nutrition via tube feeding. No apparent documentation on what the current tube feeding and rate is. Treatment: Resumed patient's home aspirin 81 mg daily Registered dietitian to evaluate for tube feeds #Insulin-dependent type 2 diabetes mellitus Patient noted to have a history of diabetes and requires insulin. Patient does take insulin glargine 8 units subcutaneous nightly at the subacute that she comes from. Treatment: Sliding scale insulin Blood glucose checks every 6 hours Registered dietitian to evaluate for tube feeds #History of hypertension #History of hyperlipidemia Patient noted to have a history of hypertension and hyperlipidemia. Given that the patient was having hypotension during admission secondary to her sepsis, we will hold off on antihypertensives for now. Treatment: Resumed home on atorvastatin 40 mg nightly #Hyponatremia, resolved Patient noted to have a sodium of 132 on admission. Patient does have a history of hyponatremia and has previously received salt tablets at the nursing facility for management of this condition. Treatment: Consider resuming salt tablets if hyponatremia worsens #Code Status No POLST form was provided on admission. Hospitalist team called the patient's sister who was noted as the patient's person to notify in the EMR, who wished for the patient to be full code, but if the patient were to have a CODE BLUE, the patient sister would like to be notified to change the patient's CODE STATUS to DNR. Treatment: Patient made full code, will call patient Sister for CODE STATUS changes as needed DVT Prophylaxis: Heparin GI Prophylaxis: N/A Bowel: N/A Diet: Pending dietitian tube feed recommendation [place]: Yes Lines: Peripheral IV, trach tube, PEG tube Antibiotics: oral vancomycin Code Status: FULL Reason for Hospitalization: Sepsis Other Barriers to Discharge: Blood cultures This case was discussed with my attending physician, Dr. Patel, and senior resident, Karthikeyan. Even though this this note was carefully revised there may still be minor errors in book agent due to voice recognition software. Etta Manley, DO TEJADAY I Senior Resident Attestation: The patient continues to have multiple episodes of watery bowel movement, but white count has been trending down. Her rash over bilateral lower limb has been improving in collar, but there was serosanguineous discharge from the site, will continue with oral vancomycin, and discontinue ceftriaxone, and start doxycycline 100 mg IV twice daily. I discussed with and supervised the unpaid intern physician involved in the care of this patient. I personally saw and examined the patient and discussed the assessment and plan with the entire medicine team, including my attending. I agree with the assessment and plan as documented above. Remington Napier MD PGY3 Internal Medicine Attending Provider Attestation/Addendum I have seen and examined the patient. I was physically present for the hu portions of the services provided including history, physical exam, diagnosis, treatment plans and orders. I agree with assessment and plan of care as documented by residents. Even though this this note was carefully revised there may still be minor errors in book agent due to voice recognition software. Yu Patel MD
--- NOTE | 2025-03-21 16:02 | PC.SS ---
Rounding note: White count elevated, possible discharge 03/22 to [facility] subacute.
--- NOTE | 2025-03-21 18:59 | PD.VPROG1 ---
Telemedicine visit statement This visit was conducted with the use of interactive audio and video telecommunications system that permits real time communication between the patient and the provider. Patient's verbal consent for virtual visit was obtained on 03/21/25 at 1859. Documentation for date of: 03/21/25 Subjective Subjective Interval history: Patient is in Tele, no more fever spike reported. Virtual exam Vital Signs Temp Pulse Resp BP Pulse Ox O2 Del Method FiO2 97.8 F 88 20 123/71 18 L Mechanical Ventilation 30 03/21/25 12:00 03/21/25 16:00 03/21/25 17:34 03/21/25 12:00 03/21/25 14:30 03/21/25 12:00 03/21/25 17:34 Objective Labs 03/21/25 05:25 03/21/25 05:25 Labs: Laboratory Results - last 24 hr 03/20/25 03/21/25 19:42 05:25 WBC 15.7 H RBC 2.87 L Hgb 9.9 L D 8.7 L Hct 29.9 L 26.9 L MCV 94 MCH 30.3 MCHC 32.3 RDW Std Deviation 56.9 H Plt Count 353 Neut % (Auto) 59 Lymph % (Auto) 17 [place] % (Auto) 13 H Eos % (Auto) 1 Baso % (Auto) 1 Neut # (Auto) 9.2 H Lymph # (Auto) 2.6 [place] # (Auto) 2.0 H Eos # (Auto) 0.1 Baso # (Auto) 0.1 Immature Gran # (Auto) 1.65 H Absolute Nucleated RBC 0.04 H Immature Gran % 11 H Nucleated RBC % 0 Sodium 139 Potassium 3.6 Chloride 99 Carbon Dioxide 32.8 H Anion Gap 7 BUN 10 Creatinine 0.6 Estim Creat Clear Calc 92.7 eGFR > 60 BUN/Creatinine Ratio 17 Glucose 125 H Calculated Osmolality 277 Calcium 8.9 Corrected Calcium 9.7 Phosphorus 3.5 Magnesium 2.0 Total Bilirubin < 0.2 L AST 40 H ALT 20 Alkaline Phosphatase 69 Total Protein 6.4 Albumin 3.0 L Globulin 3.4 Albumin/Globulin Ratio 0.9 L Assessment & Plan Problem List (1) Anoxic brain injury: Status: Chronic Assessment and plan: in a bedridden state with poor prognosis. (2) Seizures: Status: Chronic Assessment and plan: stable on Keppra and VPA No sz reported after admission this time (3) Sepsis: Status: Chronic Assessment and plan: on IV antibiotics, now complicated by possible C.diff. on Vancomycin per GT (4) Pneumonia: Status: Acute Assessment and plan: on IV antibiotics.
[2025-03-21] MEDS: ATORVASTATIN CALCIUM 20 MG TABLET 40 MG GT (20:21)
--- NOTE | 2025-03-21 21:21 | RESP.EEG ---
EEG has been completed and is ready for MD interpretation
[2025-03-22] VITALS (7 sets, daily range): BP systolic 95–116; BP diastolic 50–72; PULSE 75–92; RESP 12–20; TEMP 36.1–36.3; O2SAT 95–99
[2025-03-22] MEDS: VALPROIC ACID SYRUP 250 MG/5 ML UDC 500 MG GT ×2 (05:16→14:21)
[2025-03-22 06:23] LABS: Basophils # (Auto) 0.1 Thou/mm3 (0.0-0.2); Basophils % (Auto) 0 % (0-2.5); Eosinophils # (Auto) 0.3 Thou/mm3 (0.0-0.5); Eosinophils % (Auto) 1 % (0-10); Hematocrit 27.3 % (36.0-46.0); Hemoglobin 8.9 g/dL (12.0-16.0); Immature Granulocytes Auto 2.89 Thou/mm3 (0.00-0.00); Lymphocytes # (Auto) 3.4 Thou/mm3 (1.0-4.8); Lymphocytes % (Auto) 19 % (10-50); Mean Corpuscular HGB Conc 32.6 g/dl (31.0-37.0); Mean Corpuscular Hemoglobin 30.5 pg (25.0-35.0); Mean Corpuscular Volume 94 fL (80-100); Monocytes # (Auto) 1.9 Thou/mm3 (0.0-0.8); Monocytes % (Auto) 10 % (0-12); Neutrophils # (Auto) 9.8 Thou/mm3 (1.8-7.7); Neutrophils % (Auto) 53 % (37-80); Nucleated Red Blood Cell # 0.06 Thou/mm3 (0.00-0.00); Nucleated Red Blood Cell % 0 /100 WBC (0); Platelet Count 225 Thou/mm3 (140-440); RDW Standard Deviation 56.0 fL (36.4-46.3); Red Blood Count 2.92 Miln/mm3 (4.00-5.20); White Blood Count 18.3 Thou/mm3 (3.6-11.0)
[2025-03-22 06:52] LABS: Alanine Aminotransferase 15 U/L (10-49); Albumin, Serum 3.3 gm/dL (3.4-4.8); Albumin/Globulin Ratio 1.0 (1.2-2.2); Alkaline Phosphatase 67 U/L (46-116); Anion Gap 10 (7-16); Aspartate Amino Transferase 45 U/L (0-34); BUN/Creatinine Ratio 19 Ratio (12-20); Bilirubin,Total < 0.2 mg/dL (0.3-1.2); Blood Urea Nitrogen 13 mg/dL (9-23); Calcium 8.8 mg/dL (8.3-10.6); Calcium (Corrected) 9.4 mg/dL (8.5-10.1); Carbon Dioxide 32.1 mMol/L (20.0-31.0); Chloride 98 mMol/L (98-107); Creatinine (Component) 0.7 mg/dL (0.6-1.3); Estimated Creatinine Clearance 79.4 mL/min (>60); Globulin 3.4 gm/dL (2.3-3.5); Glucose 125 mg/dL (74-106); Magnesium 2.0 mg/dL (1.6-2.6); Osmolality,Calculated 280 (275-295); Phosphorous 3.9 mg/dL (2.4-5.1); Potassium 4.2 mMol/L (3.4-5.1); Sodium 140 mMol/L (136-145); Total Protein 6.7 gm/dL (5.7-8.2); eGFR > 60 See Note
[2025-03-22] MEDS: BALSAM PERU/CASTOR OIL (Venelex) 60 GM TUBE TOP (08:40)
[2025-03-22] MEDS: DOXYCYCLINE INJ 100 MG in SODIUM CHLORIDE 0.9% (POP) 100 ML IV (08:41)
[2025-03-22] MEDS: ASPIRIN 81 MG CHEW GT (08:42)
[2025-03-22] MEDS: CHOLECALCIFEROL (Vitamin D3) 1,000 IU TABLET 1000 IU GT (08:42)
[2025-03-22] MEDS: ASCORBIC ACID 250 MG TABLET 500 MG GT (08:42)
[2025-03-22] MEDS: LACTOBACILLUS RHAMNOSUS 1 CAP PO (08:42)
[2025-03-22] MEDS: VANCOMYCIN 25 MG/ML 125 MG GT ×2 (08:43→11:47)
--- NOTE | 2025-03-22 13:51 | ESDS_ITS ---
<Statement entered by Surinder Mcmanus MD - 03/22/25 15:13> I saw and examined patient personally and supervised PGY 1 resident, Dr. Manley with formulating a discharge plan. I agree with the documentation as listed below. Plan of care discussed with Attending Dr. Amanda Mcmanus MD PGY 2 Disclaimer: This note was dictated by speech recognition. Minor errors in body and frame man may be present due to voice recognition software. Planned Discharge Date 03/22/25 DS: Providers Provider Date of admission: 03/17/25 00:24 Primary care physician: Physician No Primary/Family Admitting Provider: Ivelisse Sam DO Attending Provider on Admission: Yu Patel MD Consults: 03/17/25 02:11 Referral Registered Dietitian Routine Comment: Instructions: Recommendations for tube feeds, thank you 03/17/25 04:44 Referral Infection Control Routine Comment: Reason for Infection Control Referral: Multiple ABX (>2) Admitted with Diarrhea TB, MENGI, HEP, MRSA,CDIF Patient In Isolation Readmitted within 30 days Temp>101 X2 Days Referral Wound Care Routine Comment: Instructions: PATIENT WITH STAGE 2 TO SACRUM FROM SUBACUTE 03/17/25 07:05 Consult to Infectious Diseases Stat Comment: WBC 45, diarrhea, and fever of 103. Consulting Provider: Pilo Gates 03/17/25 13:50 Consult to Neurology / Tele-Neurology Routine Comment: Seizure like activity Consulting Provider: Mundo Parada Attending Provider on DC: Yu Patel MD Discharging Provider: Etta Manley DO DS: Diagnosis Problem List Completed Was Problem List Reviewed/Reconciled?: Yes Hospital Course Hospital Course Hospital course: 69-year-old female with a history of epilepsy, hypertension, hyperlipidemia, T2DM, anoxic brain injury s/p trach and PEG who presented to [facility] ED from [facility] subacute care on 03/16 for a fever of 103 ?F. The patient was admitted for management of sepsis. The patient was noted to have recurrent history of C. difficile along with loose stools in previous subacute care notes. He had presented with leukocytosis 45.1 similar to previous admissions for. Patient had previously been discharged to complete a course of fidaxomicin for C. difficile infection. Other possible sources of infection for sepsis included UTI given dirty UA (positive leukocyte esterase, 9 RBC, 7 WBC, and 1+ urine bacteria) and possibly pneumonia given chest x-ray suspicious for pneumonia. The presenting lactic acidosis 4.3 improved to 2.0 after 2.5 L of fluid resuscitation. Also was noted coagulopathy D-dimer 1710, fibrinogen 694, with possible ischemic organ injury. ESR 33. qSOFA was calculated 2-3, 3-14 fold increase in the in-hospital mortality rate. CT abdomen pelvis on 03/16 showed acute sigmoid diverticulitis without perfusion or abscess, sacral decubitus ulceration, cholelithiasis, bibasilar pulmonary atelectasis/infiltrate, hepatomegaly, and possible cystitis. As stool antigen testing confirmed C. difficile infection, patient started on vancomycin through PEG tube. Also notable for ecchymosis over lateral thighs bilaterally, right worse than left. Patient was started on IV vancomycin and Zosyn and clindamycin. Ultrasound showed edema in the soft tissue but no soft tissue hematoma or mass. CT BLE without contrast showed cellulitis pattern in the lower extremities and was negative for soft tissue abscess or necrotizing fasciitis. Clindamycin (03/17--) discontinued. Blood cultures came back negative after 48 hours, while urine cultures were positive for GNR including ESBL. Discontinued IV vancomycin, and Zosyn (03/16? 03/20). Patient started on ceftriaxone IV 1 g (03/20--03/21), and later switched to doxycycline when cellulitis about right thigh began to show oozing. By 03/22 the bilateral cellulitis had shown improvement on doxycycline, leukocytosis improved to baseline, and patient had stayed afebrile. At the time of discharge, patient is medically stable and de emed safe to return to his/her previous state of living. Admission Diagnosis: #Acute sigmoid diverticulitis #History of recurrent C. difficile #Urinary tract infection #Pneumonia? # Ecchymosis over lateral thighs bilaterally, Rt worse than Lt # Cellulitis #Chronic Normocytic Anemia #Seizure disorder #Cholelithiasis #Normocytic anemia, chronic #Anoxic brain injury #Status post tracheostomy #Status post PEG tube placement #PEG tube feeding #Insulin-dependent type 2 diabetes mellitus #History of hypertension #History of hyperlipidemia #Hyponatremia, resolved #Code Status Discharge Instructions: - You have been started on a vancomycin with a taper 125 qid for until 03/28/2025, then 125 tid for 7d, then 125 bid for 7d, then 125 daily for 7d for your recurrent C. Diff infection - Take doxycycline for 5 more days for your cellulitis and F/U with wound care. - Continue the rest of home medication as before. - Goals of care discussion was had with patient's sister. Discussed that there is almost no chance that patient will recover back to her baseline before her brain injury. Sister understands and will discuss retirement care plan goals with the Family. ? Continue change of dressings to your wound with saline irrigation and allyven dressings daily. - Follow up with your primary care physician within 1 week of discharge. If you do not have a primary care physician, please follow up with the [facility] Residents clinic ([phone]) ? If you experience any new, worsening or persistent symptoms either call your primary doctor. This case was discussed with my attending physician, Dr. Patel, and senior resident, Dr Mcmanus. Even though this this note was carefully revised there may still be minor errors in body and frame man due to voice recognition software. Etta Manley, PGY I Status at Discharge Functional status at discharge: bed bound Time Spent with Patient Time attestation: Total time spent providing and/or coordinating discharge services: 38 minutes Time spent: Greater than 30 minutes Exam Vital Signs Temp Pulse Resp BP Pulse Ox O2 Del Method FiO2 97 F 82 18 95/50 L 97 Mechanical Ventilation 30 03/22/25 12:00 03/22/25 12:00 03/22/25 12:00 03/22/25 12:00 03/22/25 12:03/22/25 12:00 03/22/25 08:00 Narrative Exam General: Non-responsive, no acute distress. Trach and PEG in place, on mechanical ventilation. Skin: Warm, dry, intact. Head: Normocephalic, atraumatic. Eye: Normal conjunctiva, PERRL. Cardiovascular: Regular rate and rhythm, no murmur, +S1/S2. Respiratory: Lungs are clear to auscultation, respirations unlabored, no crackles, no wheezing. Gastrointestinal: Soft, nontender, nondistended. No guarding or rebound tenderness. Extremities: No edema, no cyanosis, no clubbing. 2+ radial pulse bilaterally, 2+ pedal pulse bilaterally. diffuse ecchymosis about the lateral right thigh, also a lesser one with a smaller area of involvement on the lateral aspect of the left thigh, warm to touch. Oozing appreciated from a central swelling. Back: Diaper rash noted, slight pressure wound on coccyx without any drainage or pus. Discharge Plan Plan Patient Disposition: Xfer Senior Caregiver Acute w/in Hosp Patient condition on transfer: Stable and Benefits outweigh risks Care Plan Goals: - You have been started on a vancomycin with a taper 125 qid for until 03/28/2025, then 125 tid for 7d, then 125 bid for 7d, then 125 daily for 7d for your recurrent C. Diff infection - Take doxycycline for 5 more days for your cellulitis and F/U with wound care. - Continue the rest of home medication as before. - Goals of care discussion was had with patient's sister. Discussed that there is almost no chance that patient will recover back to her baseline before her brain injury. Sister understands and will discuss retirement care plan goals with the Family. ? Continue change of dressings to your wound with saline irrigation and allyven dressings daily. - Follow up with your primary care physician within 1 week of discharge. If you do not have a primary care physician, please follow up with the [facility] Residents clinic ([phone]) ? If you experience any new, worsening or persistent symptoms either call your primary doctor. Prescriptions/Referrals Prescriptions/Med Rec: New Culturelle 10 billion cell Capsule 1 cap feeding tube BID 14 Days Qty: 28 0RF vancomycin 25 mg/mL Recon Soln 125 mg G-tube ACHS 7 Days Qty: 140 0RF doxycycline hyclate 100 mg tablet 100 mg PO BID 5 Days Qty: 10 0RF vancomycin 25 mg/mL recon soln 125 mg PO TID 7 Days Qty: 105 0RF vancomycin 25 mg/mL recon soln 125 mg PO DAILY 7 Days Qty: 35 0RF vancomycin 25 mg/mL recon soln 125 mg PO BID 7 Days Qty: 70 0RF Continued artificial tear([id number]) [GenTeal Tears Moderate] 0.1-0.3-0.2 % Drops 2 drp Both eyes BID Rx Instructions: FOR DRYNESS Gvoke 1 mg/0.2 mL Solution 1 mg IM Q15MIN PRN (Reason: Hypoglycemia) acetaminophen 325 mg Tablet 650 mg G-tube Q4HR PRN (Reason: Fever > 100.4) Patient Comments: Not to exceed 3gm of Tylenol from all sources. Rx Instructions: fever protocol aspirin 81 mg tablet,chewable 81 mg G-tube QDAY 30 Days Qty: 30 0RF atorvastatin 40 mg tablet 40 mg G-tube HS 30 Days Qty: 30 0RF acetaminophen 325 mg tablet 650 mg G-tube Q6HR PRN (Reason: Pain) 30 Days Qty: 30 0RF Rx Instructions: Do not exceed more than 3gm of acetaminophen per day from all sources ipratropium-albuterol 0.5 mg-3 mg(2.5 mg base)/3 mL solution for nebulization 3 ml INH Q2HR PRN (Reason: Wheezing) 30 Days Qty: 90 0RF guaifenesin [Taylor-Tussin] 100 mg/5 mL liquid 300 mg G-tube Q6HR PRN (Reason: Cough) 30 Days Qty: 500 0RF Rx Instructions: Conc: 100MG/5ML- give 300mg/15ml ascorbic acid (vitamin C) 500 mg tablet 500 mg G-tube BID Qty: 60 11RF valproic acid (as sodium salt) 250 mg/5 mL solution 500 mg G-tube TID Qty: 900 11RF enoxaparin 40 mg/0.4 mL syringe 40 mg subcut QDAY Qty: 12 11RF levetiracetam 100 mg/mL solution 1,000 mg G-tube BID Qty: 600 11RF cholecalciferol (vitamin D3) 25 mcg (1,000 unit) tablet 25 mcg G-tube BID Qty: 60 11RF insulin glargine [Lantus Solostar U-100 Insulin] 100 unit/mL (3 mL) insulin pen 8 unit subcut DAILY@1800 30 Days Qty: 15 0RF ferrous sulfate 220 mg (44 mg iron)/5 mL elixir 325 mg G-tube BID 30 Days Qty: 221.592 0RF Rx Instructions: CONC: 220mg/5ml Give: 325mg/7.5ml Diazepam 5 mg IM [id number] PRN (Reason: Seizures) Qty: 5 1RF Rx Instructions: Diazepam 5mg/mL injection, Inject 5mg/mL intramuscularly as needed for seizures. If seizure persist administer 2nd dose. If not effective send PT to ER for further eval. and notify MD. *Single dose vial ipratropium-albuterol 0.5 mg-3 mg(2.5 mg base)/3 mL solution for nebulization 3 ml INH Q2HR PRN (Reason: Wheezing) 30 Days Qty: 90 0RF bisacodyl [Dulcolax (bisacodyl)] 10 mg suppository 10 mg ME PRN PRN (Reason: No BM Per Bowel Management Protocol) 365 Days Qty: 12 0RF Rx Instructions: Administer as needed on 6th shift, if MOM ineffective. Ear Wax Removal Drops 6.5 % drops 5 drp otic (ear) Q61D 221 Days Qty: 15 11RF Rx Instructions: 5 drops per ear at first med pass of shift. Then irrigate ears with NS at next med pass of each shift x 4 days for wax build up. *Start on the of the month, every two months. Held sodium chloride 1,000 mg tablet,soluble 1,000 mg G-tube QDAY Qty: 30 11RF Hold Instructions: Resume on 03/29/25. Hold until you see your PCP Rx Instructions: For Hyponatremia polyethylene glycol 3350 17 gram powder in packet 17 g G-tube PRN PRN (Reason: No BM Per Bowel Management Protocol) 365 Days Qty: 14 0RF Hold Instructions: Resume on 04/22/25. Resume after your diarrhea resolves Label Comments: Administer as needed if 2nd round bowel protocol ineffective. Rx Instructions: Mix with 4oz of water before giving. Hold tube feeding for 30 minutes after administration. Notify provider if no results from Miralax. Discontinued aspirin 81 mg Tablet,Chewable 81 mg G-tube QDAY Rx Instructions: Give one tab daily PGT for DVT prevention atorvastatin 20 mg Tablet 40 mg G-tube HS cholecalciferol (vitamin D3) 25 mcg (1,000 unit) Tablet 25 mcg G-tube BID sodium chloride 1,000 mg Tablet,Soluble 1,000 mg G-tube QDAY Rx Instructions: For Hyponatremia buspirone 10 mg Tablet 10 mg G-tube BID Patient Comments: AMB refusing care Rx Instructions: Continue Buspirone 10mg BID x30 days then re-evaluate with MD. insulin glargine-yfgn 100 unit/mL (3 mL) Insulin Pen 8 unit SCi DAILY@1800 Patient Comments: Hold if blood sugar is <80 bisacodyl [Dulcolax (bisacodyl)] 10 mg Suppository 10 mg ME PRN PRN (Reason: No BM Per Bowel Management Protocol) Rx Instructions: Administer as needed on 6th shift, if MOM ineffective. levetiracetam 100 mg/mL Solution 1,000 mg G-tube BID Rx Instructions: give [id number] for seizures valproic acid (as sodium salt) 250 mg/5 mL Solution 500 mg G-tube TID Rx Instructions: Valproic acid 250/5ml chelsey. Give 500mg (10ml) PGT for seizures magnesium hydroxide [Milk of Magnesia] 400 mg/5 mL Suspension 30 ml G-tube PRN PRN (Reason: Constipation) Rx Instructions: CONC: 400MG/5ML polyethylene glycol 3350 17 gram Powder In Packet 17 g G-tube PRN PRN (Reason: No BM Per Bowel Management Protocol) Rx Instructions: Mix with 4oz of water before giving. Hold tube feeding for 30 minutes after administration. Notify provider if no results from Miralax. enoxaparin 40 mg/0.4 mL Syringe 40 mg SCi QDAY ascorbic acid (vitamin C) 500 mg Tablet 500 mg G-tube BID magnesium hydroxide [Milk of Magnesia] 400 mg/5 mL suspension 30 ml G-tube PRN PRN (Reason: Constipation) 365 Days Qty: 355 0RF Rx Instructions: CONC: 400MG/5ML Ear Wax Removal Drops 6.5 % drops 5 drp otic (ear) Q61D 223 Days Qty: 15 11RF Label Comments: 5 drops per ear at first med pass of shift. Then irrigate ears with NS at next med pass of each shift x 4 days for wax build up. Ear Wax Removal Drops 6.5 % drops 5 drp otic (ear) Q61D 222 Days Qty: 15 11RF Label Comments: 5 drops per ear at first med pass of shift. Then irrigate ears with NS at next med pass of each shift x 4 days for wax build up. Ear Wax Removal Drops 6.5 % drops 5 drp otic (ear) Q61D 222 Days Qty: 15 11RF Rx Instructions: 5 drops per ear at first med pass of shift. Then irrigate ears with NS at next med pass of each shift x 4 days for wax build up. *Start on the 20th of the month, every two months. Ear Wax Removal Drops 6.5 % drops 5 drp otic (ear) Q61D 221 Days Qty: 15 11RF Label Comments: 5 drops per ear at first med pass of shift. Then irrigate ears with NS at next med pass of each shift x 4 days for wax build up. Ear Wax Removal Drops 6.5 % drops 5 drp otic (ear) Q61D 223 Days Qty: 15 11RF Rx Instructions: 5 drops per ear at first med pass of shift. Then irrigate ears with NS at next med pass of each shift x 4 days for wax build up. *Start on the 20th of the month, every two months. Ear Wax Removal Drops 6.5 % drops 5 drp otic (ear) Q61D 220 Days Qty: 15 11RF Label Comments: 5 drops per ear at first med pass of shift. Then irrigate ears with NS at next med pass of each shift x 4 days for wax build up. Ear Wax Removal Drops 6.5 % drops 5 drp otic (ear) Q61D 220 Days Qty: 15 11RF Label Comments: 5 drops per ear at first med pass of shift. Then irrigate ears with NS at next med pass of each shift x 4 days for wax build up. No Action doxycycline hyclate 100 mg tablet 100 mg G-tube BID 5 Days Qty: 5 0RF Label Comments: Give one tab/ Cap PGT twice a day for Cellulitis to RT upper leg/Hip x 5 days Non Formulary Medication 125 ea G-tube QID 7 Days 0RF Label Comments: MEDICATION NOT ON FORMULARY: DRUG NAME HERE:Vancomycin 125mg/5ml DIRECTIONS FOR USE HERE: 125mg PGT QID until 03/30/25 Rx Instructions: Vancomycin with a taper: 125mg QID until 03/30/25, For C-Diff infection. Lactobacillus acidophilus 0.5 mg (100 million cell) tablet 0.5 mg G-tube BID 14 Days Qty: 14 0RF Non Formulary Medication 125 ea G-tube DAILY 7 Days 0RF Label Comments: MEDICATION NOT ON FORMULARY: DRUG NAME HERE: Vancomycin 125mg/5ml DIRECTIONS FOR USE HERE: Give 125mg/5ml via gtube daily x7 days then re- eval. Non Formulary Medication 125 ea G-tube BID 7 Days 0RF Label Comments: MEDICATION NOT ON FORMULARY: DRUG NAME HERE: Vancomycin 125mg/5ml DIRECTIONS FOR USE HERE: Give 125mg/5ml via gtube BID until 04/14/2025 Rx Instructions: Vancomycin with a taper: Then from 04/07/25 to 04/14/25 Give 125mg/ml PGT BID Then from 04/15/25 to 04/22/25 Give 125mg/ml PGT Daily then re-eval. Non Formulary Medication 125 ea G-tube TID 7 Days 0RF Label Comments: MEDICATION NOT ON FORMULARY: DRUG NAME HERE: Vancomycin 125mg/5ml DIRECTIONS FOR USE HERE: Give 125mg/5ml via gtube TID until 04/07/2025 Rx Instructions: Vancomycin with a taper: Give 125mg/5ml PGT TID until 04/07/25 Then from 04/07/25 to 04/14/25 Give 125mg/ml PGT BID Then from 04/15/25 to 04/22/25 Give 125mg/ml PGT Daily then re-eval. buspirone 10 mg tablet 10 mg G-tube QDAY 243 Days Qty: 244 0RF Label Comments: AMB refusal of care insulin lispro 100 unit/mL insulin pen See Rx Instructions subcut ,18 30 Days Qty: 15 0RF Rx Instructions: Per Sliding Scale as follows: 0-150= 0 units; 151-200= 2 units; 201-250= 4 units; 251-300= 6 units; 301-350= 8 units; 351-400= 10 units; >400= 12 units; and call MD Referrals: No Primary/Family,Physician [Primary Care Provider] Lalo Silverio MD [Physician, Pulmonology] Patient/Caregiver Discharge Instructions Education Materials: C diff, What Is C. Diff? Print Language: Thai Stand Alone Forms: Johana Award Info., Patient Portal Info Letter Discharge Order Discharge Orders: Discharge (Routine); Ordered 03/22/25 Ordered By: Surinder Mcmanus Quality Discharge Quality Measures VTE prophylaxis Attestestation MD Attestation I have seen and examined the patient. I was physically present for the hu portions of the services provided including history, physical exam, diagnosis, treatment plans and orders. I agree with assessment and plan of care as documented by residents. Even though this this note was carefully revised there may still be minor errors in body and frame man due to voice recognition software. Yu Patel MD
== END 2025-03-22 15:25 | disposition skilled nursing facility (03) | DRG 871 ==
LOC: SERX 20:59 → SERHOLD 03-17 00:33 → S2NX 03-17 02:15
PROVIDERS: Emergency Medicine; Internal Medicine Infectious Disease; Admitting Provider Internal Medicine; Visit Provider Student in an Organized Health Care Education/Training Program
DX: A41.9 Sepsis, unspecified organism (principal); J18.9 Pneumonia, unspecified organism; G93.1 Anoxic brain damage, not elsewhere classified; K57.32 Diverticulitis of large intestine without perforation or abscess without bleeding; E87.1 Hypo-osmolality and hyponatremia; Z99.11 Dependence on respirator [ventilator] status; R40.3 Persistent vegetative state; D68.9 Coagulation defect, unspecified; L03.116 Cellulitis of left lower limb; L03.115 Cellulitis of right lower limb; G40.909 Epilepsy, unspecified, not intractable, without status epilepticus; E78.5 Hyperlipidemia, unspecified; I10 Essential (primary) hypertension; E11.9 Type 2 diabetes mellitus without complications; N30.90 Cystitis, unspecified without hematuria; Z93.0 Tracheostomy status; Z93.1 Gastrostomy status; K80.20 Calculus of gallbladder without cholecystitis without obstruction; I95.9 Hypotension, unspecified; R65.20 Severe sepsis without septic shock; D64.9 Anemia, unspecified; R58 Hemorrhage, not elsewhere classified; Z79.4 Long term (current) use of insulin; Z66 Do not resuscitate; Z74.01 Bed confinement status; Z79.82 Long term (current) use of aspirin; Z79.899 Other long term (current) drug therapy; Z87.440 Personal history of urinary (tract) infections; Z88.5 Allergy status to narcotic agent
CPT/HCPCS: 36415; 71045; 73700; 74176; 76882; 80053; 80202; 81001; 82270; 82607; 82728; 82746; 83036; 83540; 83550; 83605; 83735; 84100; 84145; 84484; 85014; 85018; 85025; 85049; 85379; 85384; 85610; 85652; 85730; 86140; 86803; 86850; 86900; 86901; 86923; 87040; 87077; 87081; 87086; 87186; 87493; 87635; 93005; 94003; 95816; 96361; 96365; 96366; 99284; J0131; J0696; J1644; J1953; J2060; J2543; J3373; J3374; J3375; J3480; J3490; J7030; J7050; J7120; J7999; P9016; S0077; A9270; J0737